=== PATIENT | male | born 1935 | race Caucasian/White ===

== ENCOUNTER → 2017-08-24 06:44 | Outpatient (CLI) | payer MEDICARE, SELFPAY ==
--- NOTE | 2017-08-24 06:49 | NM_ITS ---
History and Indications: Shortness of breath, fatigue abnormal EKG Procedure: Patient received a 0.4 mg of Lexiscan, resting heart rate was 70 beats prominent, resting blood pressure 157/90, with Lexiscan maximum heart rate achieved was 70 bpm which is less than 85% of the maximum predicted heart rate and a blood pressure was 138/77. With Lexiscan patient complained of shortness of breath. Electrocardiogram: Resting echocardiogram showed sinus rhythm left bundle-branch block, with Lexiscan there is less than 1.[address] segment segment depression noted from the baseline EKG. The EKG portion of the Lexiscan Myoview is nondiagnostic. Cardiac stress and resting SPECT images: Cardiac stress and rest SPECT images were obtained using technetium 99 Myoview 31.2 mCi at stress and 10.4 mCi at rest, gated SPECT further analysis of segmental wall motion and calculation of the ejection fraction also done. Cardiac stress and resting SPECT images show a fixed defect anteroseptally and inferior wall with normal contractility in the gated SPECT is likely secondary to soft tissue attenuation, and presence of left bundle-branch block, no reversible ischemia seen. Computer derived ejection fraction is 46% with abnormal septal motion, right ventricle is normal size and contractility. Conclusion: 1. The EKG portion of the Lexiscan Myoview is nondiagnostic. 2. No obvious scintigraphic evidence of reversible ischemia seen, computer derived ejection fraction is 46% with abnormal septal motion, right ventricle is normal size and contractility.
--- NOTE | 2017-08-24 06:49 | CA_ITS ---
PROCEDURE: 2-D M-mode and color Doppler study INDICATIONS FOR THE TEST: Chest painX COPD Heart Murmur Tobacco Smoking PalpitationsX Fatigue Syncope Edema HypertensionXDiabetes Mellitus Rheumatic Fever SOBXDOE Obesity Hyperlipidemia Family History HD Additional History LBBB,PACEMAKER PATIENT INFORMATION HEIGHT: 72 WEIGHT:185 GENDER: Male B/P:110/70 2-D/M-MODE INTERPRETATION: 2-D MEASUREMENTS OBSERVED VALUES IN CMS Right Ventricular Dimension (RVDd) 1.3 Interventricular Septum (Thickness)(IVsd) .9 Left Ventricular Internal Dimensions(LVIDd) 5.0 Left Ventricular Posterior Wall (Thickness)(LVPWd) .9 Aortic Root 3.8 Aortic Cusp Separation Left Atrial Dimensions (LAD) 3.4 2D 1. Left atrium is mildly enlarged, left ventricle is normal size, mild qualitative concentric left ventricular hypertrophy, visually estimated ejection fraction 45%, there is abnormal septal motion. 2. The right atrium and right ventricle are normal size and contractility, there is a pacemaker lead seen in the right atrium and right ventricle. 3. The aortic valve is minimally thickened and fibrosed. 4. The mitral and tricuspid valve are grossly normal. 5. The pulmonic valve is poorly visualized. 6. No significant pericardial effusion noted. .DOPPLER INTERROGATION: Doppler interrogation of the aortic, mitral and tricuspid valvular presence of mild aortic, mild mitral and tricuspid regurgitation, tricuspid and jet velocity insufficient for calculation of the right ventricular systolic pressure, grade 1 diastolic dysfunction seen with tissue Doppler evidence of raised left atrial pressure. CONCLUSION: 1. Mildly left atrium, normal left ventricular size, mild qualitative concentric left ventricular hypertrophy, visually estimated ejection fraction 45%, there is abnormal septal motion, grade 1 diastolic dysfunction seen with tissue Doppler evidence of raised left atrial pressure. 2. Mild mitral and tricuspid regurgitation 3. No significant pericardial effusion noted.
== END ==
PROVIDERS: PCP Family Medicine; Visit Provider Internal Medicine
DX: R00.2 Palpitations (principal); R06.02 Shortness of breath
CPT/HCPCS: 78452; 93017; 93306; A9502; J2785

== ENCOUNTER → 2018-04-02 08:59 | Outpatient (CLI) | payer MEDICARE, SELFPAY ==
--- NOTE | 2018-04-02 09:01 | CA_ITS ---
PROCEDURE: 2-D M-mode and color Doppler study INDICATIONS FOR THE TEST: Chest pain COPD Heart Murmur Tobacco Smoking Palpitations Fatigue Syncope Edema Hypertension + Diabetes Mellitus Rheumatic Fever SOB+HENDERSON+Obesity Hyperlipidemia Family History HD Additional History CM,CAD,LBBB,PPM PATIENT INFORMATION HEIGHT: 72 WEIGHT:187 GENDER: Male B/P:140/75 2-D/M-MODE INTERPRETATION: 2-D MEASUREMENTS OBSERVED VALUES IN CMS Right Ventricular Dimension (RVDd) 1.7 Interventricular Septum (Thickness)(IVsd) 1.3 Left Ventricular Internal Dimensions(LVIDd) 5.3 Left Ventricular Posterior Wall (Thickness)(LVPWd) 0.7 Aortic Root 2.6 Aortic Cusp Separation 1.8 Left Atrial Dimensions (LAD) 4.1 2D 1. Left atrium is mildly enlarged, left ventricle is normal size, mild concentric left ventricular hypertrophy, visually estimated ejection fraction 30-35%, left ventricle is globally hypokinetic. There is abnormal septal motion. 2. The right atrium and right ventricle are normal size and contractility, there is pacemaker lead seen right atrium and right ventricle. 3. The aortic valve is minimally thickened and fibrosed. 4. The mitral and tricuspid valve leaflets are minimally thickened. 5. The pulmonic valve is poorly visualized. 6. No significant pericardial effusion noted. DOPPLER INTERROGATION: Doppler interrogation of the aortic, mitral and tricuspid valvular reveals presence of trace aortic, mild mitral and tricuspid regurgitation, tricuspid regurgitation jet velocity is inadequate for calculation of the right ventricular systolic pressure, diastolic parameters are inconclusive. CONCLUSION: 1. Mildly enlarged left atrium, normal left ventricular size, mild concentric left ventricular hypertrophy, visually estimated ejection fraction 30-35%, left ventricle is globally hypokinetic, there is abnormal septal motion. 2. Mild mitral and tricuspid regurgitation 3. No significant pericardial effusion noted.
[2018-04-02 13:53] LABS: Anion Gap 12.1 mEq/L (5-15); Blood Urea Nitrogen 24 mg/dL (7-18); Calcium 9.2 mg/dL (8.5-10.1); Carbon Dioxide 29 mmol/L (21.0-32.0); Chloride 104 mmol/L (98-107); Creatinine,Serum 1.31 mg/dL (0.70-1.30); Estimated Glomerular Filt Rate 53 ml/min (>60); GFR (African American) 64 ML/MIN (>60); Glucose 95 mg/dL (74-106); Potassium 4.1 mmoL/L (3.5-5.1); Sodium 141 mmol/L (136-145)
== END ==
PROVIDERS: PCP Family Medicine; Visit Provider Internal Medicine Cardiovascular Disease
DX: I10 Essential (primary) hypertension (principal); I25.10 Atherosclerotic heart disease of native coronary artery without angina pectoris; I34.0 Nonrheumatic mitral (valve) insufficiency; I42.8 Other cardiomyopathies; I44.7 Left bundle-branch block, unspecified; I51.9 Heart disease, unspecified; R00.1 Bradycardia, unspecified; R00.2 Palpitations; R06.09 Other forms of dyspnea; R94.31 Abnormal electrocardiogram [ECG] [EKG]; Z95.0 Presence of cardiac pacemaker
CPT/HCPCS: 36415; 80048; 83880; 93306

== ENCOUNTER → 2018-04-19 13:39 | Outpatient (CLI) | payer MEDICARE, SELFPAY ==
--- NOTE | 2018-04-19 13:40 | NM_ITS ---
Cardiac MUGA Scan: Indication for the test: Evaluate left ventricular systolic function Procedure: Patient received 26.2 mCi of sodium pretechnitate, resting MUGA scan was performed in the standard view. Results: Computer derived ejection fraction is 44.6% with no regional wall motion abnormality.
== END ==
PROVIDERS: PCP Family Medicine; Visit Provider Internal Medicine Cardiovascular Disease
DX: I42.8 Other cardiomyopathies; I10 Essential (primary) hypertension; I25.10 Atherosclerotic heart disease of native coronary artery without angina pectoris; I34.0 Nonrheumatic mitral (valve) insufficiency; I44.7 Left bundle-branch block, unspecified; R00.1 Bradycardia, unspecified; R00.2 Palpitations; R06.00 Dyspnea, unspecified; Z95.0 Presence of cardiac pacemaker
CPT/HCPCS: 78473; A9512; A9560

== ENCOUNTER 2018-05-07 14:49 | Observation (INO) ==
--- NOTE | 2018-05-07 15:40 | Emergency Department Note ---
ED Disposition Clinical Impression: Syncope and collapse, Renal insufficiency, Status post cardiac pacemaker procedure Disposition: Still a Patient Condition on Discharge: Fair Instructions: DI for Syncope in Adults (Fainting), DI for Syncope in Children (Fainting) Referrals: Adiel Davis MD [Primary Care Provider] - - Critical Care Critical Care Time: No Attestation: On 05/07/18, the high probability of a clinically significant, sudden or life threatening deterioration of the following system(s) required my full and direct attention, intervention and personal management. The time I documented below is in addition to time spent performing reported procedures but includes the following listed in this critical care notation. Medical Decision Making - Medical Records Medical records reviewed: Yes: I reviewed the patient's medical records. - Lev Inquiry Pt receiving controlled substance: No Lev was queried for this patient: No Vital Signs: 05/07/18 14:49 05/07/18 15:53 Temperature 97.5 F L Temperature Source Oral Pulse Rate [Left Radial] 70 70 Respiratory Rate 14 18 Blood Pressure [Right Arm] 124/75 133/78 Blood Pressure Mean [Right Arm] 91 96 Blood Pressure Source [Right Arm] Automatic Cuff Automatic Cuff Blood Pressure Position [Right Arm] Sitting 02 Sat by Pulse Oximetry 93 L 92 L Oxygen Delivery Method Room Air Room Air - Lab Data Lab Results 05/07/18 15:40: WBC 8.2, RBC 4.74, Hgb 14.5, Hct 44.0, MCV 92.8, MCH 30.5, MCHC 32.9, RDW 13.4, Plt Count 210, MPV 7.2 L, Neut % (Auto) 72.3, Lymph % (Auto) 17.2, [place] % (Auto) 6.8, Eos % (Auto) 3.4, Baso % (Auto) 0.3, Neut # (Auto) 5.9, Lymph # (Auto) 1.4, [place] # (Auto) 0.6, Eos # (Auto) 0.3, Baso # (Auto) 0.0 05/07/18 15:40: Sodium 139, Potassium 4.0, Chloride 104, Carbon Dioxide 27, Anion Gap 12.0, BUN 26 H, Creatinine 1.55 H, Estimated Creat Clear 45, Estimated GFR 43 L, Est GFR ( Amer) 52 L, Glucose 108 H, Calcium 8.8, Total Bilirubin 0.8, AST 18, ALT 27, Alkaline Phosphatase 81, Troponin I < 0.02, Total Protein 7.2, Albumin 3.3 L, Globulin 3.9 H, Albumin/Globulin Ratio 0.8 L Result diagrams: 05/07/18 15:40 05/07/18 15:40 - CT Data CT Scan: Head Time Received: 16:[address] Reviewed: Yes: I have viewed the radiologist's interpretation Preliminary Findings: Normal/NAD Findings Narrative: IMPRESSION: Atrophy with chronic periventricular ischemic gliotic change. No acute finding - ECG Data Tracing #1 paced rhythm 70/minutes. ECG initial impression date: 05/07/18 ECG initial impression time: 15:25 Medical Decision Narrative: Patient remained hemodynamically neurologically stable, the pacemaker was interrogated with no findings, Dr. Mccall recommended the patient undergo 2D echo, I called Dr. Carmona was numerical control operator for his primary care physician Dr. Davis who recommended the patient to be on IV fluids and hold his blood pressure medications and order orthostatic blood pressure. Syncope HPI - General Chief Complaint: Syncope Stated Complaint: syncope Time Seen by Provider: 05/07/18 15:00 Mode of Arrival: EMS Limitations: No Limitations Description of Symptoms (Recalled from ER Triage Doc. by RN): Pt states he was talking with a friend when his left hand started shaking really bad and he got really hot and then he passed out. Friend says he was only out for a few seconds. States his pacemaker has been feeling funny lately. - History of Present Illness HPI narrative: 82 years old white male status post pacemaker placement [address] Scot sanches. 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 He denies having chest pain shortness of breath or palpitations. He denies having numbness tingling weakness involving the upper or lower extremity. Was no loss of urine or bowel control. She was brought to the ED by his family he is alert oriented x3 stat EKG shows paced rhythm at a rate of 70/min, I contacted Dr. Mccall his color control operator who will send the staff member for pacemaker interrogation. MD complaint: loss of consciousness Onset (ago): hour(s) Duration of episode: 14 -: second(s) Description of event: focal shaking Context: at rest Injuries sustained associated with event: RUE Current symptoms: none Treatments prior to arrival: none - Related Data Home Medications Medication Instructions Recorded Confirmed aspirin 81 mg tablet,delayed 81 mg PO DAILY tab 09/18/17 05/03/18 release pantoprazole 40 mg tablet,delayed 40 mg PO DAILY tab 09/18/17 05/03/18 release Previous Rx's Medication Instructions Recorded carvedilol 3.125 mg tablet 3.125 mg PO BID #60 tab 02/07/18 lisinopril 5 mg tablet 5 mg PO DAILY #30 tab 02/07/18 furosemide 20 mg tablet 20 mg PO .every other day #30 tab 03/29/18 Allergies Allergy/AdvReac Type Severity Reaction Status Date / Time No Known Drug Allergies Allergy Unknown Verified 05/03/18 09:11 [NO KNOWN DRUG ALLERGIES] [facility] History - Hepatitis A Screen Drug use history?: No High risk sexual behaviors?: No History of sexually transmitted infection?: No Currently employed?: No Childcare worker?: No Do you have indoor plumbing?: Yes Do you have electricity?: Yes Attestation statement:: This patient has been screened for Hepatitis A risk factors. I have reviewed the patient's past medical history: Yes Medical History: Reports:: Anxiety, Internal Pacemaker, Palpitations Denies:: Diabetes Mellitus Type 1, Diabetes Mellitus Type 2, Seizures Other Medical History: Reports: Hypothyroidism Other Surgeries: Yes: Pacemaker, Other Amputation: No Fractures: No - Social History Smoking Status: Never smoker Alcohol Intake: never Substance Use Type: denies use Occupational Status: retired Housing: house Household Members: spouse - Psychiatric History Expresses thoughts of harming self/others: None Suicide Plan Description: No Plan Pschychiatric History:: Reports:: Anxiety Family Hx:: Coronary Artery Disease, Heart Attack, Diabetes, Stroke ROS Obtained: Yes All systems reviewed & no additional complaints Physical Exam - General General appearance: alert, in no apparent distress - Head Head exam: atraumatic, normocephalic, normal inspection - Eye Eye exam: Present: normal appearance, PERRL, EOMI - ENT ENT exam: Present: normal exam, normal oropharynx, mucous membranes moist, TM's normal bilaterally, normal external ear exam - Neck Neck exam: Present: normal inspection, full ROM, trachea midline. Absent: tenderness, meningismus, lymphadenopathy - Chest Chest inspection: Present: normal inspection, symmetric chest wall rise. Absent: tenderness - Respiratory Respiratory exam: Present: normal lung sounds bilaterally. Absent: respiratory distress - Cardiovascular Cardiovascular exam: Present: regular rate, normal rhythm, normal heart sounds. Absent: JVD - Abdominal Exam Abdominal exam: Present: soft, normal bowel sounds. Absent: distention, tenderness, guarding - Extremities Exam Extremities exam: Present: normal inspection, full ROM, normal capillary refill. Absent: calf tenderness - Back Exam Back exam: Present: normal inspection. Absent: tenderness, CVA tenderness (R), CVA tenderness (L) - Neurological Exam Neurological exam: Present: alert, oriented X3, CN II-XII intact, motor sensory deficit, reflexes normal - Psychiatric Psychiatric exam: Present: normal affect, normal mood - Skin Skin exam: Present: warm, dry, intact, normal color - Lymphatic Lymphatic Findings: no adenopathy
[2018-05-07 15:48] LABS: Basophils % 0.3 % (0.1-2.0); Eosinophils # 0.3 K/mm3 (0.0-0.4); Eosinophils % 3.4 % (0.1-12.0); Hemoglobin 14.5 g/dL (14.1-18.0); Lymphocytes # 1.4 K/mm3 (0.7-4.5); Lymphocytes % 17.2 % (10-50); Mean Corpuscular HGB Conc 32.9 g/dL (31.8-35.4); Mean Corpuscular Hemoglobin 30.5 pg (27.0-31.2); Mean Corpuscular Volume 92.8 fl (80-94); Mean Platelet Volume 7.2 fl (7.4-10.4); Monocytes # 0.6 K/mm3 (0.1-1.0); Monocytes % 6.8 % (1.7-9.3); Neutrophils # 5.9 K/mm3 (1.8-7.8); Neutrophils % 72.3 % (37.0-80.0); Platelet Count 210 K/mm3 (142-424); Red Blood Count 4.74 M/mm3 (4.60-6.20); Red Cell Distribution Width 13.4 % (11.5-17.5); White Blood Count 8.2 K/mm3 (4.8-10.8)
[2018-05-07 16:11] LABS: Albumin Level 3.3 gm/dL (3.4-5.0); Aspartate Amino Transferase 18 U/L (15-37); Blood Urea Nitrogen 26 mg/dL (7-18); Calcium 8.8 mg/dL (8.5-10.1); Carbon Dioxide 27 mmol/L (21.0-32.0); Chloride 104 mmol/L (98-107); Glucose 108 mg/dL (74-106); Sodium 139 mmol/L (136-145)
[2018-05-07 16:41] LABS: Alanine Aminotransferase 27 U/L (12-78); Albumin/Globulin Ratio 0.8 (1.1-1.8); Alkaline Phosphatase 81 U/L (46-116); Bilirubin,Total 0.8 mg/dL (0.2-1.0); Globulin 3.9 gm/dl (1.3-3.2); Total Protein,Serum 7.2 gm/dL (6.4-8.2)
[2018-05-08 07:19] LABS: Basophils % 0.3 % (0.1-2.0); Eosinophils # 0.2 K/mm3 (0.0-0.4); Eosinophils % 3.5 % (0.1-12.0); Hematocrit 41.2 % (42.0-52.0); Hemoglobin 13.6 g/dL (14.1-18.0); Lymphocytes # 1.7 K/mm3 (0.7-4.5); Lymphocytes % 26.5 % (10-50); Mean Corpuscular HGB Conc 32.9 g/dL (31.8-35.4); Mean Corpuscular Hemoglobin 31.1 pg (27.0-31.2); Mean Corpuscular Volume 94.4 fl (80-94); Mean Platelet Volume 7.2 fl (7.4-10.4); Monocytes # 0.6 K/mm3 (0.1-1.0); Monocytes % 8.5 % (1.7-9.3); Neutrophils % 61.1 % (37.0-80.0); Platelet Count 194 K/mm3 (142-424); Red Blood Count 4.37 M/mm3 (4.60-6.20); Red Cell Distribution Width 13.4 % (11.5-17.5); White Blood Count 6.5 K/mm3 (4.8-10.8)
[2018-05-08 07:22] LABS: Anion Gap 10.8 mEq/L (5-15); Calcium 8.3 mg/dL (8.5-10.1); Potassium 3.8 mmoL/L (3.5-5.1)
--- NOTE | 2018-05-08 07:22 | H&P/Discharge Summary ---
General - General Admission date:: 05/07/18 Discharge date: 05/08/18 *Admission Date: 05/07/18 *Chief complaint: Syncopal event *History of present illness: 82-year-old male with a pacemaker presented to the emergency department with a brief episode of syncope. 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 He estimates he lost consciousness for 1-2 seconds. However after he regained consciousness he felt nauseous and weak. The gentleman who was being supervised went and called EMS. When ambulance arrived patient was evaluated and no significant problem was found. His blood sugar was 91. Patient was feeling better at that point and actually did not want to come to the hospital but when his had been informed of what had happened she "pitched a fit" and demanded he go to the hospital so he relented. In the emergency department workup was begun that included a telephone consult with patient's activities specialist due to his pacemaker. Patient has complained that the pacemaker "just does not feel right" and is has some left shoulder stiffness for several months now. Pacemaker was interrogated and was found to be working properly. Unbeknownst to ER staff patient had just undergone a very thorough workup of his heart over the last month with echocardiogram and MUGA scan. Patient was admitted for observation and IV fluids with initial orders to repeat echocardiogram but once again patient had just had an echocardiogram and this data was not known at that time [facility] History I have reviewed the patient's past medical history: Yes Medical History: Reports:: Anxiety, Congestive Heart Failure ([place] Heart Association class II), Internal Pacemaker, Palpitations Denies:: Cancer, Diabetes Mellitus Type 1, Diabetes Mellitus Type 2, MRSA, Seizures *Have you ever received a pneumonia vaccine?: Yes *Have you received a flu vaccine this season?: Yes Other Medical History: Reports: Hypothyroidism Laterality Cases: Bilateral: Other Other Surgeries: Yes: Pacemaker, Other (TURP) Amputation: No Fractures: No - *Social History Educational Level: Attended High School Smoking Status: Never smoker Alcohol Intake: never Substance Use Type: denies use *Occupational Status:: retired Housing: house Household Members: spouse *Travel in the last 8 weeks: None - Psychiatric History Expresses thoughts of harming self/others: None Suicide Plan Description: No Plan Pschychiatric History:: Reports:: Anxiety Family Hx:: Heart Attack Review of Systems - Review of Systems Review of systems:: pertinent systems reviewed and negative unless documented below - Constitutional Denies body ache(s), Denies chills - *Cardiovascular Denies chest pain, Denies chest pain at rest - *Respiratory Denies change in phlegm color, Denies chest congestion - *Gastrointestinal Denies abdominal pain, Denies belching - *Genitourinary Denies difficulty urinating - *Musculoskeletal Denies abnormal walking - *Neurologic Reports tremor(s), Denies abnormal walking, Denies abnormal hearing, Denies abnormal movements, Denies abnormal speech, Denies behavioral changes, Denies burning sensations, Denies confusion, Denies seizure-like activity, Denies unsteadiness, Denies dizziness, Denies loss of vision, Denies memory loss, Denies numbness, Denies tingling/numbness/burning sensations, Denies seizure-like activity Exam Vital signs and Labs for Last 24 Hours: Temp Pulse Resp BP Pulse Ox 98.0 F 71 15 107/50 L 94 L 05/08/18 04:00 05/08/18 04:00 05/08/18 04:00 05/08/18 04:00 05/08/18 04:00 Laboratory Results - last 24 hr 05/07/18 15:40: WBC 8.2, RBC 4.74, Hgb 14.5, Hct 44.0, MCV 92.8, MCH 30.5, MCHC 32.9, RDW 13.4, Plt Count 210, MPV 7.2 L, Neut % (Auto) 72.3, Lymph % (Auto) 17.2, [place] % (Auto) 6.8, Eos % (Auto) 3.4, Baso % (Auto) 0.3, Neut # (Auto) 5.9, Lymph # (Auto) 1.4, [place] # (Auto) 0.6, Eos # (Auto) 0.3, Baso # (Auto) 0.0 05/07/18 15:40: Sodium 139, Potassium 4.0, Chloride 104, Carbon Dioxide 27, Anion Gap 12.0, BUN 26 H, Creatinine 1.55 H, Estimated Creat Clear 45, Estimated GFR 43 L, Est GFR ( Amer) 52 L, Glucose 108 H, Calcium 8.8, Total Bilirubin 0.8, AST 18, ALT 27, Alkaline Phosphatase 81, Troponin I < 0.02, Total Protein 7.2, Albumin 3.3 L, Globulin 3.9 H, Albumin/Globulin Ratio 0.8 L 05/07/18 20:11: Troponin I < 0.02 05/08/18 02:00: Troponin I < 0.02 I & O for Last 24 hours: Intake & Output 05/05/18 05/06/18 05/07/18 05/08/18 11:59 11:59 11:59 11:59 Intake Total 549 / 549 Balance 549 / 549 Weight 181 lb 3 oz Narrative: Patient looks well and at baseline. ENT exam is grossly normal. Neck is without carotid bruits. Lungs are clear to auscultation. Heart has a regular rate and rhythm. Abdomen is thin, soft, nontender, nondistended. Extremities are warm to the touch with symmetric movement and strength assessment in the upper and lower extremities. Neurologically the patient has normal cranial nerves. Motor and sensory functions are intact. Gait was not tested at the time of exam but he has been ambulating back and forth to the bathroom without difficulties. Hospital Course Hospital Course: Patient was admitted for observation. He was placed in seizure precautions. There were no seizure activities witnessed. Patient had actually returned to baseline prior to admission. He was observed overnight and when there were no further events patient was discharged home the next morning. Initial workup to include echocardiogram was canceled as patient has just undergone cardiac workup as an outpatient. Patient will follow-up in my office on May 10 at 2 PM Results Labs on day of discharge: Labs from last 24 hours 05/08/18 05/07/18 05/07/18 02:00 20:11 15:40 WBC RBC Hgb Hct MCV MCH MCHC RDW Plt Count MPV Neut % (Auto) Lymph % (Auto) [place] % (Auto) Eos % (Auto) Baso % (Auto) Neut # (Auto) Lymph # (Auto) [place] # (Auto) Eos # (Auto) Baso # (Auto) Sodium 139 Potassium 4.0 Chloride 104 Carbon Dioxide 27 Anion Gap 12.0 BUN 26 H Creatinine 1.55 H Estimated Creat Clear 45 Estimated GFR 43 L Est GFR ( Amer) 52 L Glucose 108 H Calcium 8.8 Total Bilirubin 0.8 AST 18 ALT 27 Alkaline Phosphatase 81 Troponin I < 0.02 < 0.02 < 0.02 Total Protein 7.2 Albumin 3.3 L Globulin 3.9 H Albumin/Globulin Ratio 0.8 L 05/07/18 15:40 WBC 8.2 RBC 4.74 Hgb 14.5 Hct 44.0 MCV 92.8 MCH 30.5 MCHC 32.9 RDW 13.4 Plt Count 210 MPV 7.2 L Neut % (Auto) 72.3 Lymph % (Auto) 17.2 [place] % (Auto) 6.8 Eos % (Auto) 3.4 Baso % (Auto) 0.3 Neut # (Auto) 5.9 Lymph # (Auto) 1.4 [place] # (Auto) 0.6 Eos # (Auto) 0.3 Baso # (Auto) 0.0 Sodium Potassium Chloride Carbon Dioxide Anion Gap BUN Creatinine Estimated Creat Clear Estimated GFR Est GFR ( Amer) Glucose Calcium Total Bilirubin AST ALT Alkaline Phosphatase Troponin I Total Protein Albumin Globulin Albumin/Globulin Ratio DS: Diagnosis - Discharge Diagnosis (1) Syncope and collapse Status: Acute Discharge Medications - Medications for Discharge Home Medication List at Discharge: No Action aspirin 81 mg tablet,delayed release 81 mg PO DAILY tab pantoprazole 40 mg tablet,delayed release 40 mg PO DAILY tab LORazepam [Lorazepam 1mg Tablet] 1 mg PO HS Lisinopril [Lisinopril 5mg Tablet] 5 mg PO DAILY Furosemide [Furosemide 20mg Tab] 20 mg PO DAILY Carvedilol [Carvedilol 3.125mg Tab] 3.125 mg PO BID Disposition Disposition: Home, Self-Care
== END 2018-05-08 11:13 | disposition home or self-care (01) ==
LOC: ER 14:49 → 2ND 14:49
PROVIDERS: ADMIT Internal Medicine Adolescent Medicine; ATTEND Family Medicine
DX: Z79.899 Other long term (current) drug therapy; R55 Syncope and collapse; Z98.890 Other specified postprocedural states; I50.9 Heart failure, unspecified; Z79.82 Long term (current) use of aspirin; Z95.0 Presence of cardiac pacemaker; R00.2 Palpitations
CPT/HCPCS: 36415; 70450; 71020; 71046; 73030; 80048; 80053; 84484; 85025; 93005; 93306; 95816; 99284; G0378

== ENCOUNTER → 2018-10-10 10:20 | Outpatient (CLI) | payer MEDICARE, SELFPAY ==
--- NOTE | 2018-10-10 10:24 | XR_ITS ---
XR shoulder RT min 2V HISTORY: ITS.REASON: RT AANTERIOR SHOULDER PAIN ORDERING PHYSICIAN: Adiel Davis MD PATIENT AGE: 82 years Comparison: None FINDINGS: There are mild osteoarthritic changes of the glenohumeral joint. The AC joint has an unremarkable appearance. No fracture or dislocation. IMPRESSION: Mild osteoarthritis of the glenohumeral joint
== END ==
PROVIDERS: PCP Family Medicine; Visit Provider Family Medicine
DX: M25.511 Pain in right shoulder (principal)
CPT/HCPCS: 73030

== ENCOUNTER → 2018-11-29 08:27 | Outpatient (CLI) | payer MEDICARE, SELFPAY ==
[2018-11-29 09:45] LABS: Anion Gap 11.7 mEq/L (5-15); Blood Urea Nitrogen 16 mg/dL (7-18); Calcium 9.1 mg/dL (8.5-10.1); Carbon Dioxide 30 mmol/L (21.0-32.0); Chloride 104 mmol/L (98-107); Creatinine,Serum 1.11 mg/dL (0.70-1.30); Estimated Glomerular Filt Rate 64 ml/min (>60); GFR (African American) 77 ML/MIN (>60); Glucose 83 mg/dL (74-106); Potassium 4.7 mmoL/L (3.5-5.1); Sodium 141 mmol/L (136-145)
== END ==
PROVIDERS: Visit Provider Internal Medicine Cardiovascular Disease
DX: I10 Essential (primary) hypertension (principal); R06.02 Shortness of breath
CPT/HCPCS: 80048

== ENCOUNTER 2019-06-22 17:38 | Emergency (ER) | payer MEDICARE, OTHER, SELFPAY ==
[2019-06-22 17:52] VITALS: BP 134/75; PULSE 89; RESP 18; TEMP 36.8; O2SAT 98; BMI 25.0
--- NOTE | 2019-06-22 17:58 | XR_ITS ---
PROCEDURE: XR CHEST PORTABLE CLINICAL HISTORY: SOB COMPARISON: CXR2 CHEST-AP VIEW ONLY from 11/21/2012 CTAC CTA-CHEST from 02/01/2017 CXR1 CHEST-PORTABLE from 02/02/2017 CXR2V XR chest 2V from 05/07/2018 FINDINGS: The cardiomediastinal silhouette and pulmonary vascularity are within normal limits. The lungs are clear without infiltrates, suspicious nodules, or pleural effusions. The left-sided cardiac pacemaker is again noted with dual chamber electrodes both in good position. There are mild multilevel degenerate changes of the mid and lower thoracic spine. No acute bony abnormalities. IMPRESSION: No acute findings. Dictated by: Dr. Alejandro Lund MD 06/22/2019 19:[address] Alejandro Lund MD in [place] 06/22/2019 19:13
[2019-06-22 18:01] LABS: Microscopic, Urine URINE MICROSCOPIC (MICROSCOPIC)
[2019-06-22 18:02] LABS: Appearance,Urine CLEAR (Clear); Bilirubin,Urine Negative (Negative); Blood, Urine 1+ (Negative); Color,Urine YELLOW (Yellow); Glucose,Urine (UA) Negative (Negative); Ketones,Urine Negative (Negative); Leukocyte Esterase,Urine Negative (Negative); Nitrate,Urine Negative (Negative); Protein,Urine Negative (Negative); Specific Gravity, Urine 1.015 (1.005-1.030); Urobilinogen,Urine 0.2 EU/dl (0.2)
--- NOTE | 2019-06-22 18:06 | HMH.EDGENADL ---
ED Disposition Clinical Impression: Seasonal allergies, Anxiety about health URI (upper respiratory infection) Qualifiers: URI type: unspecified viral URI Qualified Code(s): J06.9 - Acute upper respiratory infection, unspecified Disposition: Home, Self-Care Condition on Discharge: Fair Instructions: DI for Viral Upper Respiratory Infection -- Adult, Allergic Rhinitis Additional Instructions: You have been evaluated for congestion, cough, malaise. This is most likely due to an upper respiratory infection and seasonal allergies. Please continue taking your kwap-fpe-hqdfuph allergy medication. You may take Tylenol and Motrin for pain and fever. We have not excluded COVID-19. You may call the [place] [facility] hotline ( ). Return to the emergency department if you have new or worsening symptoms, shortness of breath, cough, fevers, headache, neck pain. Referrals: Adiel Davis MD [Primary Care Provider] - Time of Disposition: 19:07 - Critical Care Critical Care Time: No Attestation: On 06/22/19, the high probability of a clinically significant, sudden or life threatening deterioration of the following system(s) required my full and direct attention, intervention and personal management. The time I documented below is in addition to time spent performing reported procedures but includes the following listed in this critical care notation. Medical Decision Making - Lev Inquiry Pt receiving controlled substance: No Vital Signs: 06/22/19 17:52 Temperature 98.2 F Temperature Source Oral Pulse Rate [Left Radial] 89 Respiratory Rate 18 Blood Pressure [Right Arm] 134/75 Blood Pressure Mean [Right Arm] 94 Blood Pressure Position [Right Arm] Sitting 02 Sat by Pulse Oximetry 98 Oxygen Delivery Method Room Air - Lab Data Lab Results 06/22/19 17:45: Urine Color Yellow, Urine Appearance Clear, Urine pH 6.0, Ur Specific [place] 1.015, Urine Protein Negative, Urine Glucose (UA) Negative, Urine Ketones Negative, Urine Blood 1+, Urine Nitrate Negative, Urine Bilirubin Negative, Urine Urobilinogen 0.2, Ur Leukocyte Esterase Negative, Urine RBC Occasional, Urine WBC None, Ur Squamous Epith Cells Occasional, Urine Bacteria None 06/22/19 18:00: WBC 8.1, RBC 4.85, Hgb 15.2, Hct 44.4, MCV 91.6, MCH 31.4 H, MCHC 34.3, RDW 12.6, Plt Count 223, MPV 7.4, Neut % (Auto) 60.0, Lymph % (Auto) 29.8, [place] % (Auto) 7.0, Eos % (Auto) 2.8, Baso % (Auto) 0.4, Neut # (Auto) 4.9, Lymph # (Auto) 2.4, [place] # (Auto) 0.6, Eos # (Auto) 0.2, Baso # (Auto) 0.0 06/22/19 18:00: Sodium 138, Potassium 4.1, Chloride 104, Carbon Dioxide 29, Anion Gap 9.1, BUN 22 H, Creatinine 1.00, Estimated Creat Clear 69, Estimated GFR 72, Est GFR ( Amer) 87, Glucose 116 H, Calcium 9.4, Total Bilirubin 0.8, AST 28, ALT 20, Alkaline Phosphatase 72, Total Protein 7.9, Albumin 4.3, Globulin 3.6 H, Albumin/Globulin Ratio 1.2 06/22/19 18:00: Lactate 0.9 Result diagrams: 06/22/19 18:00 06/22/19 18:00 Orders (Tests/Meds): ORDERS Category Date Time Status XR chest portable Stat Exams 06/22/19 17:58 Taken Medical Decision Narrative: In summary this is an 83-year-old male presenting to the emergency department with generalized malaise, cough, sore throat. Patient is in no distress on arrival. Vital signs are stable, afebrile. Differential diagnoses include viral upper respiratory infection, anemia, bronchitis, pneumonia. Plan to obtain CBC, CMP, chest x-ray and reassess. Laboratory results are generally unremarkable. Chest x-ray does not show large infiltrate. I have counseled the patient that we have not excluded COVID-19, but he currently does not have fever, hypoxia, other concerning symptoms. I recommended that he self quarantine. Given the phone number for the [employer] hotline. Structures take Tylenol for pain and fever. Given return precautions. General Adult HPI - General Chief complaint: Shortness of Breath/Dyspnea Stated complaint
[2019-06-22 18:08] LABS: RBC,Urine Occasional #/hpf (0-3); Squamous Epithelial Cell,Urine Occasional #/hpf (0-5)
[2019-06-22 18:15] LABS: Basophils % 0.4 % (0.1-2.0); Eosinophils # 0.2 K/mm3 (0.0-0.4); Eosinophils % 2.8 % (0.1-12.0); Hematocrit 44.4 % (42.0-52.0); Hemoglobin 15.2 g/dL (14.1-18.0); Lymphocytes # 2.4 K/mm3 (0.7-4.5); Lymphocytes % 29.8 % (10-50); Mean Corpuscular HGB Conc 34.3 g/dL (31.8-35.4); Mean Corpuscular Hemoglobin 31.4 pg (27.0-31.2); Mean Corpuscular Volume 91.6 fl (80-94); Mean Platelet Volume 7.4 fl (7.4-10.4); Monocytes # 0.6 K/mm3 (0.1-1.0); Neutrophils # 4.9 K/mm3 (1.8-7.8); Platelet Count 223 K/mm3 (142-424); Red Blood Count 4.85 M/mm3 (4.60-6.20); Red Cell Distribution Width 12.6 % (11.5-17.5); White Blood Count 8.1 K/mm3 (4.8-10.8)
[2019-06-22 18:23] LABS: Lactic Acid 0.9 mmol/L (0.7-2.1)
[2019-06-22 18:24] LABS: Alanine Aminotransferase 20 U/L (12-78); Albumin Level 4.3 g/dl (3.5-5.0); Albumin/Globulin Ratio 1.2 (1.1-1.8); Alkaline Phosphatase 72 U/L (38-126); Anion Gap 9.1 mEq/L (5-15); Aspartate Amino Transferase 28 U/L (17-59); Bilirubin,Total 0.8 mg/dl (0.2-1.3); Blood Urea Nitrogen 22 mg/dl (9-20); Calcium 9.4 mg/dl (8.4-10.2); Carbon Dioxide 29 mmol/L (22.0-30.0); Chloride 104 mmol/L (98-107); Creatinine Clearance Estimated 69 mL/min (50-200); Estimated Glomerular Filt Rate 72 ml/min (>60); GFR (African American) 87 ML/MIN (>60); Globulin 3.6 g/dL (1.3-3.2); Glucose 116 mg/dl (74-100); Potassium 4.1 mmoL/L (3.5-5.1); Sodium 138 mmol/L (136-145); Total Protein,Serum 7.9 g/dl (6.3-8.2)
[2019-06-22 19:30] VITALS: BP 135/79; PULSE 81; RESP 19; TEMP 36.8; O2SAT 98
== END 2019-06-22 19:45 | disposition home or self-care (01) ==
PROVIDERS: Emergency Provider Emergency Medicine; PCP Family Medicine
DX: J30.2 Other seasonal allergic rhinitis (principal); F06.4 Anxiety disorder due to known physiological condition; J06.9 Acute upper respiratory infection, unspecified; Z79.82 Long term (current) use of aspirin; Z79.899 Other long term (current) drug therapy; Z95.0 Presence of cardiac pacemaker; Z86.79 Personal history of other diseases of the circulatory system; Z87.448 Personal history of other diseases of urinary system; I50.9 Heart failure, unspecified; E03.9 Hypothyroidism, unspecified
CPT/HCPCS: 71045; 80053; 81001; 83605; 85025; 99283

== ENCOUNTER → 2019-07-01 15:49 | Outpatient (CLI) | payer MEDICARE, OTHER, SELFPAY ==
--- NOTE | 2019-07-01 | XR_ITS ---
PROCEDURE: XR CHEST AP CLINICAL HISTORY: Shortness of breath, heart disease COMPARISON: CTAC CTA-CHEST from 02/01/2017 CXR1 CHEST-PORTABLE from 02/02/2017 CXR2V XR chest 2V from 05/07/2018 XR CHEST PORTABLE from 06/22/2019 FINDINGS: Bipolar pacemaker is present from left subclavian approach The lungs are clear without infiltrates, suspicious nodules, or pleural effusions. No acute bony abnormalities. IMPRESSION: No change with Dictated by: Jose Alberto Sidhu MD 07/01/2019 17:26 Electronically signed by Jose Alberto Sidhu MD in [place] 07/01/2019 17:26
[2019-07-02 16:29] LABS: Covid-19 Nasal PCR Sendout Lex NOT DETECTED
== END ==
PROVIDERS: Visit Provider Family Medicine
DX: R06.02 Shortness of breath (principal); R50.9 Fever, unspecified
CPT/HCPCS: 71045; U0003

== ENCOUNTER → 2019-07-03 10:37 | Outpatient (CLI) | payer MEDICARE, OTHER, SELFPAY ==
[2019-07-03 11:24] LABS: Anion Gap 11.1 mEq/L (5-15); Blood Urea Nitrogen 19 mg/dl (9-20); Calcium 9.3 mg/dl (8.4-10.2); Carbon Dioxide 29 mmol/L (22.0-30.0); Chloride 102 mmol/L (98-107); Estimated Glomerular Filt Rate 72 ml/min (>60); GFR (African American) 87 ML/MIN (>60); Glucose 88 mg/dl (74-100); Potassium 4.1 mmoL/L (3.5-5.1); Sodium 138 mmol/L (136-145)
[2019-07-03 11:35] LABS: NT Pro Brain Natriuretic Pep. 163 pg/mL (0-450)
== END ==
PROVIDERS: Visit Provider Internal Medicine Cardiovascular Disease
DX: I25.10 Atherosclerotic heart disease of native coronary artery without angina pectoris (principal); I42.9 Cardiomyopathy, unspecified; I50.22 Chronic systolic (congestive) heart failure; R06.00 Dyspnea, unspecified
CPT/HCPCS: 36415; 80048; 83880

== ENCOUNTER → 2019-07-08 08:51 | Outpatient (CLI) | payer MEDICARE, OTHER, SELFPAY ==
--- NOTE | 2019-07-08 08:52 | CA_ITS ---
APPROVED REPORT EXAM: Comprehensive 2D, Doppler, and color-flow Echocardiogram [place] Presser: Chantelle Cortes RT(R) Ht: 6 ft 0 in Wt: 184lbs BSA: 2.06 BP: 133/67 mmHg Indications: Palpitations, SOB, HENDERSON, hx CM, CAD, pacemaker, anxiety M-Mode Dimensions RVDd 2.12 cm (0.9-2.6) LVDd 5.16 cm (3.5-5.7) LVDs 3.83 cm (3.5-5.7) IVSd 1.06 cm (0.6-1.1) PWd 0.68 cm (0.6-1.1) EF (Teich) 50.40% FS 25.80% EDV (Teich) 127.20 mL ESV (Teich) 63.10 mL LV Diastology E/A Ratio 0.58 Mitral Valve MV A Velocity 93.00 (40-130 cm/s) Left Ventricle Left atrium is mildly enlarged, left ventricle is normal size, mild concentric left ventricular hypertrophy, visually estimated ejection fraction 40%, there is abnormal septal motion. Grade 1 diastolic dysfunction seen without tissue Doppler evidence of raise left atrial pressure. Right Ventricle Right atrium and right ventricular mildly enlarged with normal contractility, there is a pacemaker lead seen right atrium and right ventricle. Aortic Valve Aortic valve is thickened and calcified leaflet continue to display good mobility, there is no aortic stenosis, there is mild aortic insufficiency. Mitral Valve Mitral valve is minimally thickened, there is mild mitral regurgitation. Tricuspid Valve Tricuspid valve is grossly normal, there is mild tricuspid regurgitation. Pulmonic Valve Pulmonic valve is poorly visualized. Great Vessels Aortic root is normal size. Pericardium No significant pericardial effusion noted. Conclusion 1. Mild mitral enlargement, normal left ventricular size, mild concentric left ventricular hypertrophy, visually estimated ejection fraction 40%, there is abnormal septal motion, grade 1 diastolic dysfunction seen without tissue Doppler evidence of raise left atrial pressure. 2. Mild aortic, mild mitral and tricuspid regurgitation. 3. No significant pericardial effusion noted. Electronically signed by : Gamal Reyes, 07/08/2019 20:56:44
== END ==
PROVIDERS: PCP Family Medicine; Visit Provider Internal Medicine Cardiovascular Disease
DX: I25.10 Atherosclerotic heart disease of native coronary artery without angina pectoris (principal); I42.9 Cardiomyopathy, unspecified; I50.22 Chronic systolic (congestive) heart failure; R06.00 Dyspnea, unspecified
CPT/HCPCS: 93306

== ENCOUNTER → 2019-07-18 10:25 | Outpatient (CLI) | payer MEDICARE, OTHER, SELFPAY ==
[2019-07-18 12:36] LABS: NT Pro Brain Natriuretic Pep. 131 pg/mL (0-450)
== END ==
PROVIDERS: Visit Provider Internal Medicine Cardiovascular Disease
DX: R06.02 Shortness of breath; I25.10 Atherosclerotic heart disease of native coronary artery without angina pectoris; I34.0 Nonrheumatic mitral (valve) insufficiency; I42.9 Cardiomyopathy, unspecified; I44.7 Left bundle-branch block, unspecified; I50.22 Chronic systolic (congestive) heart failure; R07.9 Chest pain, unspecified; Z95.0 Presence of cardiac pacemaker
CPT/HCPCS: 36415; 83880

== ENCOUNTER → 2019-11-25 11:17 | Outpatient (CLI) | payer MEDICARE, OTHER, SELFPAY ==
[2019-11-25 12:00] VITALS: PULSE 69; PULSE 74
--- NOTE | 2019-11-25 12:44 | CT_ITS ---
PROCEDURE: CT CHEST WO CON CLINICAL INDICATION: sob Soa COMPARISON: CT CTAA CTA-ABD from 02/01/2017 CT CTAC CTA-CHEST from 02/01/2017 TECHNIQUE: Axial images obtained with sagittal and coronal reformats. All CT scans at the facility use one or more dose reduction, viz: automated exposure control, ma/kV adjustment per patient size (including targeted exams where dose is matched to indication, i.e. head), or iterative reconstruction technique. FINDINGS: HEART AND MEDIASTINAL STRUCTURES: Cardiac pacemaker device is present from left subclavian approach. Scattered small nodes are present in the mediastinum. Coronary artery calcifications are present. There is thickening of the distal esophagus and gastroesophageal junction. This is nonspecific and may only be due to nondistention. Neoplasm or esophagitis is also considered in the differential diagnosis. Barium swallow or upper endoscopy may provide further evaluation. There are few scattered small mediastinal lymph nodes. There are changes of COPD LUNGS AND PLEURAL SPACES: Biapical scarring is noted. A 3 mm nodules present in the right upper lobe not significantly changed. Scarring is present in the lung bases with some right basilar atelectatic changes noted. A stable 4 mm nodules present along the left major fissure. No new nodules. BONY STRUCTURES: Degenerative changes thoracic spine UPPER ABDOMEN: Hiatal hernia with thickened esophagus and GE junction IMPRESSION: 1. COPD with scattered areas of scarring with atelectatic changes in the right lung base. Overall no significant change from the previous study. 2. No change 3 mm right upper lobe nodule and 4 mm nodule along the left major fissure. 3. Nonspecific thickening of the soft this and GE junction as detailed above. Dictated by: Jose Alberto Sidhu MD 12/01/2019 09:15 Jose Alberto Sidhu MD in [place] 12/01/2019 09:15
== END ==
PROVIDERS: PCP Family Medicine; Visit Provider Internal Medicine Pulmonary Disease
DX: R06.00 Dyspnea, unspecified (principal); I25.10 Atherosclerotic heart disease of native coronary artery without angina pectoris; I42.9 Cardiomyopathy, unspecified; I50.22 Chronic systolic (congestive) heart failure
CPT/HCPCS: 71250; 94060; 94618; 94640; 94727; 94729

== ENCOUNTER → 2020-02-18 13:44 | Outpatient (POV) | payer MEDICARE, OTHER, SELFPAY | DX: Z00.00 Encounter for general adult medical examination without abnormal findings (principal) ==

== ENCOUNTER → 2020-03-10 09:35 | Outpatient (CLI) | payer MEDICARE, OTHER, SELFPAY ==
[2020-03-11 14:35] LABS: Covid-19 Nasal PCR Sendout P&C NEGATIVE
== END ==
PROVIDERS: PCP Family Medicine
DX: Z01.818 Encounter for other preprocedural examination (principal); Z03.818 Encounter for observation for suspected exposure to other biological agents ruled out; H25.11 Age-related nuclear cataract, right eye
CPT/HCPCS: U0004

== ENCOUNTER → 2020-03-24 14:59 | Outpatient (POV) | payer MEDICARE, OTHER, SELFPAY | PROVIDERS: PCP Family Medicine | DX: Z00.00 Encounter for general adult medical examination without abnormal findings (principal) ==

== ENCOUNTER 2020-04-03 01:42 | Observation (INO) | payer MEDICARE, OTHER, SELFPAY ==
[2020-04-03] VITALS (23 sets, daily range): BP systolic 102–183; BP diastolic 57–85; PULSE 60–82; RESP 16–20; TEMP 36.4–36.9; O2SAT 93–97; BMI 25.0; BMI 23.7
--- NOTE | 2020-04-03 | IR_ITS ---
APPROVED REPORT Patient Location: Inpatient [facility] [employer]: WALLACE Koo RT (R) PROCEDURES Left heart catheterization Left ventriculogram Selective coronary angiogram Drug-eluting stent deployment to the proximal right coronary INDICATION Coronary artery disease, Acute non-ST elevation myocardial infarction, troponin 0 0.82, Informed consent was obtained prior to the procedure. COMPLICATIONS None TECHNIQUE One percent lidocaine used to anesthetize the right anterior aspect of the wrist. The right radial artery was accessed via the Seldinger technique. A 6 Upper Sor[place] sheath was placed in the right radial artery. 2.5 mg of verapamil, 800 mcg of nitroglycerin, 1mg Lidocaine and 5000 U Heparin were given through the arterial sheath. The trap catheter was also used to perform left heart catheterization, left ventriculogram and selective coronary angiogram. At the end the diagnostic angiogram therapeutic heparin was administered giving a therapeutic ACT. And I Ning right guide catheter was placed in the right coronary artery and a Choice PT wire was placed distal to the stenosis. A 2.25 x 12 mm resolute [place] stent was initially deployed at 16 cheri and then postdilated at 22 cheri reducing the stenosis. CINDY-3 flow was present before and after the procedure. At the end of the procedure the apparatus was removed the sheath was removed and hemostasis was achieved using TR banding patient was transferred to the postop holding area in stable condition ANGIOGRAPHIC RESULTS The left main artery Normal The left anterior descending artery Has proximal smooth 10% stenosis with mild 10% luminal irregularities in the mid segment The circumflex artery Is a dominant vessel and gives rise to a moderate ramus intermedius which has an ostial proximal 10 to 20% hazy stenosis. The circumflex artery itself is large with mild 10% luminal irregularities The right coronary artery Is a nondominant vessel with a proximal concentric 80% stenosis The RUELAS ventriculogram reveals Preserved at 55 to 60% The left ventricular end-diastolic pressure 10 mmHg IMPRESSION Severe disease in the proximal right coronary artery Successful stent to the proximal right coronary artery severe disease reduced to 0% with 1 drug-eluting stent Preserved ejection fraction Normal left ventricular end-diastolic pressure PLAN 1. Brilinta and aspirin 2. LDL less than 55 3. Cardiac rehabilitation 4. Avoidance of tobacco products 5. Patient may be discharged home in 6 hours if approved by his admitting physician Electronically signed by : Say Mccall, 04/03/2020 12:22:54
--- NOTE | 2020-04-03 01:43 | ECG_ITS ---
APPROVED REPORT Exam: Resting ECG HR:71 bpm ECG Measurements Heart Rate 71 AXES MO 138 P -17 QRSd 156 QRS 11 QT 434 T 150 QTc 471 Conclusion Electronic atrial pacemaker Left bundle branch block Abnormal ECG Electronically signed by : Adiel Reyes, 04/03/2020 09:58:35
--- NOTE | 2020-04-03 01:45 | XR_ITS ---
PROCEDURE: XR CHEST 2V CLINICAL HISTORY: cp Chest pain, left arm and shoulder pain COMPARISON: CR CXR2V XR chest 2V from 05/07/2018 CR XR CHEST PORTABLE from 06/22/2019 CR XR CHEST AP from 07/01/[address] CHEST WO CON from 11/25/2019 FINDINGS: Normal heart size. Bipolar pacemaker is present left subclavian approach with good lead position. The lungs are clear without infiltrates, suspicious nodules, or pleural effusions. Degenerative changes thoracic spine IMPRESSION: No change with no acute finding Dictated by: Jose Alberto Sidhu MD 04/03/2020 07:20 Jose Alberto Sidhu MD in [place] 04/03/2020 07:20
[2020-04-03 02:03] LABS: Basophils % 0.5 % (0.1-2.0); Eosinophils # 0.2 K/mm3 (0.0-0.4); Eosinophils % 2.8 % (0.1-12.0); Hematocrit 47.4 % (42.0-52.0); Hemoglobin 15.6 g/dL (14.1-18.0); Lymphocytes # 2.5 K/mm3 (0.7-4.5); Lymphocytes % 29.2 % (10-50); Mean Corpuscular HGB Conc 32.9 g/dL (31.8-35.4); Mean Corpuscular Hemoglobin 31.2 pg (27.0-31.2); Mean Corpuscular Volume 94.8 fl (80-94); Mean Platelet Volume 7.1 fl (7.4-10.4); Monocytes # 0.6 K/mm3 (0.1-1.0); Monocytes % 7.5 % (1.7-9.3); Neutrophils # 5.1 K/mm3 (1.8-7.8); Platelet Count 213 K/mm3 (142-424); Red Blood Count 4.99 M/mm3 (4.60-6.20); Red Cell Distribution Width 13.1 % (11.5-17.5); White Blood Count 8.5 K/mm3 (4.8-10.8)
[2020-04-03 02:08] LABS: Chloride 104 mmol/L (98-107)
[2020-04-03 02:09] LABS: Sodium 139 mmol/L (136-145)
[2020-04-03 02:11] LABS: Blood Urea Nitrogen 24 mg/dl (9-20); Creatinine Clearance Estimated 56 mL/min (50-200); Estimated Glomerular Filt Rate 58 ml/min (>60); GFR (African American) 70 ML/MIN (>60)
[2020-04-03 02:12] LABS: Calcium 9.5 mg/dl (8.4-10.2); Carbon Dioxide 29 mmol/L (22.0-30.0); Glucose 113 mg/dl (74-100)
--- NOTE | 2020-04-03 02:23 | CT_ITS ---
PROCEDURE: CT ANGIO CHEST CLINCIAL INDICATION: chest pain Chest pain, left arm pain, left shoulder pain COMPARISON: CT CT CHEST WO CON from 11/25/2019 TECHNIQUE: IV Contrast: 70ML Isovue 370 Axial images obtained with sagittal and coronal reformats. All CT scans at the facility use one or more dose reduction, viz: automated exposure control, ma/kV adjustment per patient size (including targeted exams where dose is matched to indication, i.e. head), or iterative reconstruction technique. FINDINGS: HEART AND MEDIASTINAL STRUCTURES: No evidence of pulmonary embolus, aortic aneurysm, or aortic dissection. LUNGS AND PLEURAL SPACES: There are 2 small nodular opacities in the right upper lobe image 65 series 3 each measuring approximately 4 mm not significantly changed. Scattered atelectatic and/or fibrotic changes are noted with mild bronchiectasis in the lung bases. A 4 mm noncalcified nodules present in the superior segment of the left lower lobe unchanged image 58 series 3. There is evidence of old granulomatous disease. BONY STRUCTURES: Degenerative changes are present in the thoracic spine with osteophytosis UPPER ABDOMEN: There is thickening of the gastroesophageal junction. This is nonspecific and may only be due to nondistention. Neoplasm or esophagitis is also considered in the differential diagnosis. Barium swallow or upper endoscopy may provide further evaluation. Bilateral renal cysts are present. There are 2 small right paraesophageal lymph nodes ADDITIONAL FINDINGS: No other significant abnormalities. IMPRESSION: 1. No evidence of pulmonary embolus, aortic aneurysm, or aortic dissection.. 2. Stable bilateral noncalcified pulmonary nodules. 3. There is thickening of the gastroesophageal junction. This is worrisome for neoplasm or esophagitis . Barium swallow or upper endoscopy may provide further evaluation.. There are small paraesophageal lymph nodes. Dictated by: Jose Alberto Sidhu MD 04/03/2020 08:08 Jose Alberto Sidhu MD in [place] 04/03/2020 08:08
--- NOTE | 2020-04-03 02:23 | HMH.EDCP ---
ED Disposition Clinical Impression: Left bundle branch block, Cardiac pacemaker in situ, Esophageal abnormality Chest pain Qualifiers: Chest pain type: precordial pain Qualified Code(s): R07.2 - Precordial pain Disposition: Admitted as Observation Condition on Discharge: Good Referrals: Adiel Davis MD [Primary Care Provider] - - Critical Care Critical Care Time: No Attestation: On 04/03/20, the high probability of a clinically significant, sudden or life threatening deterioration of the following system(s) required my full and direct attention, intervention and personal management. The time I documented below is in addition to time spent performing reported procedures but includes the following listed in this critical care notation. Medical Decision Making - Medical Records Medical records reviewed: Yes: I reviewed the patient's medical records. - Lev Inquiry Pt receiving controlled substance: No Vital Signs: 04/03/20 01:42 04/03/20 02:06 Temperature 97.7 F Temperature Source Oral Pulse Rate [Apical] 70 70 Respiratory Rate 18 Blood Pressure [Right Arm] 155/83 H 143/75 H Blood Pressure Mean [Right Arm] 107 97 Blood Pressure Source [Right Arm] Automatic Cuff Blood Pressure Position [Right Arm] Sitting 02 Sat by Pulse Oximetry 96 97 Oxygen Delivery Method Room Air - Lab Data Lab results reviewed: Yes: I reviewed the patient's lab results. Lab Results 04/03/20 01:45: WBC 8.5, RBC 4.99, Hgb 15.6, Hct 47.4, MCV 94.8 H, MCH 31.2, MCHC 32.9, RDW 13.1, Plt Count 213, MPV 7.1 L, Neut % (Auto) 60.0, Lymph % (Auto) 29.2, [place] % (Auto) 7.5, Eos % (Auto) 2.8, Baso % (Auto) 0.5, Neut # (Auto) 5.1, Lymph # (Auto) 2.5, [place] # (Auto) 0.6, Eos # (Auto) 0.2, Baso # (Auto) 0.0 04/03/20 01:45: Sodium 139, Potassium 4.0, Chloride 104, Carbon Dioxide 29, Anion Gap 10.0, BUN 24 H, Creatinine 1.20, Estimated Creat Clear 56, Estimated GFR 58 L, Est GFR ( Amer) 70, Glucose 113 H, Calcium 9.5, Troponin I < 0.01 04/03/20 01:45: SARS-CoV-2 IgG Ab (Rapid) Negative, SARS-CoV-2 IgM Ab (Rapid) Negative Result diagrams: 04/03/20 01:45 04/03/20 01:45 Orders (Tests/Meds): ED MEDICATIONS Generic Name Dose Route Start Last Admin Trade Name Freq PRN Reason Stop Dose Admin Nitroglycerin 0.4 mg 04/03/20 01:46 04/03/20 01:45 Nitroglycerin 0.4mg Sl Tablet SL 05/03/20 01:45 0.4 mg Q5MINP PRN Administration Chest Pain Sodium Chloride 10 ml 04/03/20 03:05 04/03/20 02:50 Sodium Chloride 0.9% 10ml Syr (Rad Only) IV 05/03/20 03:04 10 ml NEEDED PRN Administration Maintain IV Site Discontinued Medications Generic Name Dose Route Start Last Admin Trade Name Freq PRN Reason Stop Dose Admin Aspirin 324 mg 04/03/20 01:47 04/03/20 01:48 Aspirin 81mg Chewable Tablet PO 04/03/20 01:48 324 mg ONCE ONE Administration Iopamidol 70 ml 04/03/20 03:05 04/03/20 02:50 Iopamidol-370 (76%);100ml Bottle IV 04/03/20 03:06 70 ml ONCE ONE Administration Nitroglycerin 1 gm 04/03/20 01:49 04/03/20 01:50 Nitroglycerin 1 Gm Ointment TD 04/03/20 01:50 1 gm ONCE ONE Administration Sodium Chloride 50 ml 04/03/20 03:05 04/03/20 02:50 0.9 % Sodium Chloride 50 Ml Vial IV 04/03/20 03:06 40 ml ONCE ONE Administration ORDERS Category Date Time Status CT Chest w/PE protocol [CT angio chest] Stat Cat Scan 04/03/20 02:23 Taken XR chest 2V Stat Exams 04/03/20 01:45 Taken Liver Panel Stat Lab 04/03/20 01:45 Received Troponin I Q3H Lab 04/03/20 05:00 Ordered Troponin I Q3H Lab 04/03/20 08:00 Ordered - Radiology Data #1 Image(s): Chest Image Reviewed: Yes I reviewed the patient's radiology image Preliminary Findings: Normal/NAD - CT Data CT Scan: Chest Time Received: 03:[address] Reviewed: Yes: I have viewed the radiologist's interpretation Preliminary Findings: Abnormal (see report ) - ECG Data Tracing #1 Arrhythmias present: other
[2020-04-03 02:25] LABS: Coronavirus 19 IgG Antibody Negative (Negative); Coronavirus 19 IgM Antibody Negative (Negative)
[2020-04-03 02:26] LABS: Troponin I < 0.01 ng/ml (0.00-0.034)
[2020-04-03 03:22] LABS: Alanine Aminotransferase 21 U/L (12-78); Aspartate Amino Transferase 30 U/L (17-59); Bilirubin,Unconjugated 0.3 mg/dL (0.0-1.1)
--- NOTE | 2020-04-03 03:22 | PC.NURSE ---
Dr He speaking with Dr Wong for admission
[2020-04-03 03:23] LABS: Albumin Level 4.1 g/dl (3.5-5.0); Alkaline Phosphatase 86 U/L (38-126); Bilirubin,Direct 0.2 mg/dl (0.0-0.4); Bilirubin,Indirect 0.3 mg/dL (0.0-0.9); Bilirubin,Total 0.5 mg/dl (0.2-1.3); Total Protein,Serum 7.7 g/dl (6.3-8.2)
[2020-04-03 03:49] LABS: Amylase 70 U/L (30-110); Lipase 116 U/L (23-300)
--- NOTE | 2020-04-03 04:04 | PC.NURSE ---
patient up to floor via wheelchair.
[2020-04-03 05:38] LABS: Troponin I 0.12 ng/ml (0.00-0.034)
--- NOTE | 2020-04-03 06:56 | PC.NURSE ---
Pt is A&Ox4. Lung sounds CTA. Active bowel sounds in all 4 quads, no BM noted. Pt has not c/o any chest pain since arriving to his room. Pt ambulates independently w/ steady balance. PIV remains patent and is infusing NS @ 50 ml/hr. No other acute changes or complaints at this time.
[2020-04-03 09:38] LABS: Troponin I 0.86 ng/ml (0.00-0.034)
--- NOTE | 2020-04-03 11:19 | HMH.HP ---
*Admission Date: 04/03/20 *Chief complaint: chest pain *History of present illness: 84 year old male with history of nondominant right coronary disease, diastolic dysfunction, and status post pacemaker presented to ED after developing shortness of breath followed by left upper chest discomfort that radiated tothe left shoulder and arm at home while laying in bed. On initial eval in ER patient had LBBB and negative troponin. Patient was admitted for r/o AK and has had subsequent elevations in troponin to abnormal levels. He is chest pain free with nitropaste. Other symptoms have also resolved. As part of workup patient was noted to have some thickening of the distal esophagus on CT scan and does report food getting stuck when he swallows for the last 2-3 months. There are plans for future GI referral by his PCP [facility] History I have reviewed the patient's past medical history: Yes Medical History: Reports:: Anxiety, Cardiomyopathy, Congestive Heart Failure, Coronary Artery Disease, Hypertension, Internal Pacemaker, Palpitations Denies:: Cancer, Diabetes Mellitus Type 1, Diabetes Mellitus Type 2, MRSA, Seizures *Have you ever received a pneumonia vaccine?: Yes *Have you received a flu vaccine this season?: No Other Medical History: Reports: Arthritis, Cataracts, Hypothyroidism Laterality Cases: Bilateral: Cataract, Other Other Surgeries: Yes: Cardiac Catheterization, Pacemaker, Other (TURP) Amputation: No Fractures: No - *Social History Last grade of school completed: 9th or 10th Smoking Status: Never smoker Alcohol Intake: never Substance Use Type: denies use *Occupational Status:: retired Housing: house Household Members: spouse *Travel in the last 8 weeks: None - Psychiatric History Pschychiatric History:: Reports:: Anxiety Family Hx:: Asthma, Hypertension, Stroke, Thyroid Disorder, Mental illness Review of Systems - Review of Systems Review of systems:: pertinent systems reviewed and negative unless documented below - *Neurologic Denies localized weakness, Denies seizure-like activity Meds Home Medications Medication Instructions Recorded Confirmed Type aspirin 81 mg tablet,delayed 81 mg PO DAILY tab 09/18/17 04/03/20 History release pantoprazole 40 mg tablet,delayed 40 mg PO DAILY tab 09/18/17 04/03/20 History release LORazepam [Lorazepam 1mg Tablet] 1 mg PO HS 05/07/18 04/03/20 History carvedilol 3.125 mg tablet 3.125 mg PO BID #60 tab 12/22/19 04/03/20 Rx albuterol sulfate 90 mcg/actuation 1 inh INHALATION QID PRN #8.5 g 02/03/20 04/03/20 Rx aerosol inhaler Budesonide/Formoterol Fumarate 1 puff IH BID 04/03/20 04/03/20 History [Budesonide-Formoterol 160-4.5] Spironolactone [Spironolactone 25 mg PO DAILY 04/03/20 04/03/20 History 25mg Tablet] Allergies Allergy/AdvReac Type Severity Reaction Status Date / Time No Known Drug Allergies Allergy Unknown Verified 02/03/20 11:40 [NO KNOWN DRUG ALLERGIES] Exam Vital signs and Labs for Last 24 Hours: Temp Pulse Resp BP Pulse Ox 98.5 F 70 20 119/68 96 04/03/20 08:00 04/03/20 08:00 04/03/20 08:00 04/03/20 08:00 04/03/20 08:00 Laboratory Results - last 24 hr 04/03/20 01:45: WBC 8.5, RBC 4.99, Hgb 15.6, Hct 47.4, MCV 94.8 H, MCH 31.2, MCHC 32.9, RDW 13.1, Plt Count 213, MPV 7.1 L, Neut % (Auto) 60.0, Lymph % (Auto) 29.2, [place] % (Auto) 7.5, Eos % (Auto) 2.8, Baso % (Auto) 0.5, Neut # (Auto) 5.1, Lymph # (Auto) 2.5, [place] # (Auto) 0.6, Eos # (Auto) 0.2, Baso # (Auto) 0.0 04/03/20 01:45: Sodium 139, Potassium 4.0, Chloride 104, Carbon Dioxide 29, Anion Gap 10.0, BUN 24 H, Creatinine 1.20, Estimated Creat Clear 56, Estimated GFR 58 L, Est GFR ( Amer) 70, Glucose 113 H, Calcium 9.5, Troponin I < 0.01 04/03/20 01:45: SARS-CoV-2 IgG Ab (Rapid) Negative, SARS-CoV-2 IgM Ab (Rapid) Negative 04/03/20 01:45: Total Bilirubin 0.5, Direct Bilirubin 0.2, Conjugated Bilirubin 0.0, Indirect Bilirubin 0.3, Unconjugated Bilirubin 0.3, AST 30
--- NOTE | 2020-04-03 11:41 | HMH.PHAVTE ---
[facility] Pharmacy VTE Monitoring - Patient Demographics Admission date: 04/03/20 Report Date: 04/03/20 Time: 11:41 Allergies/Adverse Reactions: Patient Allergies No Known Drug Allergies [NO KNOWN DRUG ALLERGIES] Allergy (Unknown, Verified 02/03/20 11:40) Height: 1.83 m Weight: 79.379 kg Patient Problems: Current Active Problems Anxiety about health (Acute) Esophageal abnormality (Acute) NSTEMI (non-ST elevated myocardial infarction) (Acute) Chest pain (Acute) CAD (coronary artery disease) (Acute) Left bundle branch block (Chronic) Cardiac pacemaker in situ (Chronic) - VTE Risk Labs: VTE Related Lab Results Hgb 15.6 g/dL (14.1-18.0) 04/03/20 01:45 Hct 47.4 % (42.0-52.0) 04/03/20 01:45 Plt Count 213 K/mm3 (142-424) 04/03/20 01:45 BUN 24 mg/dl (9-20) H 04/03/20 01:45 Creatinine 1.20 mg/dl (0.66-1.25) 04/03/20 01:45 Estimated Creat Clear 56 mL/min (50-200) 04/03/20 01:45 VTE Score: 3 VTE Risk Level: Low Risk - Prophylaxis VTE Prophylaxis Ordered?: Yes Types of VTE Prophylaxis: TEDS Knee High Location of Applied Device: Bilateral Lower Extremeties
--- NOTE | 2020-04-03 11:47 | HMH.PHAINT ---
MEDICATION RECONCILIATION COMPLETED ON PATIENT USING LIST FROM PULMONOLOGY VISIT IN FEBRUARY 2020. -AISHWARYA MASSEY, LUDYD
--- NOTE | 2020-04-04 08:19 | HMH.DCSUM ---
General - General Admission date:: 04/03/20 Discharge date: 04/03/20 HPI HPI: 84 year old male with history of nondominant right coronary disease, diastolic dysfunction, and status post pacemaker presented to ED after developing shortness of breath followed by left upper chest discomfort that radiated tothe left shoulder and arm at home while laying in bed. On initial eval in ER patient had LBBB and negative troponin. Patient was admitted for r/o CT and has had subsequent elevations in troponin to abnormal levels. He is chest pain free with nitropaste. Other symptoms have also resolved. As part of workup patient was noted to have some thickening of the distal esophagus on CT scan and does report food getting stuck when he swallows for the last 2-3 months. There are plans for future GI referral by his PCP Hospital Course Hospital Course: Patient was admitted and ruled in for CT. Cardiology was consulted and patient was taken to the Expense Clerk on the . Results are as follows: ANGIOGRAPHIC RESULTS The left main artery Normal The left anterior descending artery Has proximal smooth 10% stenosis with mild 10% luminal irregularities in the mid segment The circumflex artery Is a dominant vessel and gives rise to a moderate ramus intermedius which has an ostial proximal 10 to 20% hazy stenosis. The circumflex artery itself is large with mild 10% luminal irregularities The right coronary artery Is a nondominant vessel with a proximal concentric 80% stenosis The RUELAS ventriculogram reveals Preserved at 55 to 60% The left ventricular end-diastolic pressure 10 mmHg IMPRESSION Severe disease in the proximal right coronary artery Successful stent to the proximal right coronary artery severe disease reduced to 0% with 1 drug-eluting stent Preserved ejection fraction Normal left ventricular end-diastolic pressure PLAN 1. Brilinta and aspirin 2. LDL less than 55 3. Cardiac rehabilitation 4. Avoidance of tobacco products 5. Patient may be discharged home in 6 hours if approved by his admitting physician Patient was discharged later in the day on the on aspirin and Brilinta. Patient will continue carvedilol and spironolactone patient will follow-up in the office on Sunday CT scan performed on admission showed distal esophageal thickening which will require follow-up EGD Objective Vital signs: Temp Pulse Resp BP Pulse Ox 98.1 F 69 20 103/58 L 96 04/03/20 17:40 04/03/20 17:40 04/03/20 17:40 04/03/20 17:40 04/03/20 17:40 Results Labs on day of discharge: Labs from last 24 hours 04/03/20 08:20 Troponin I 0.86 H DS: Diagnosis - Discharge Diagnosis (1) NSTEMI (non-ST elevated myocardial infarction) Status: Acute (2) Cardiac pacemaker in situ Status: Chronic (3) Left bundle branch block Status: Chronic (4) Anxiety about health Status: Acute (5) CAD (coronary artery disease) Status: Acute Discharge Plan - Patient Discharge Instructions ACTIVITY: Continue current activity DIET: continue same diet Patient Instructions: DI for Heart Block, DI for Pacemaker Insertion, DI for Chest Pain - Follow up Plan Follow up with: Say Mccall MD [Staff Physician] - 04/06/20 Adiel Davis MD [Primary Care Provider] - 04/05/20 Disposition: Home, Self-Detention Medications: Home Medications Medication Instructions Recorded Confirmed Type aspirin 81 mg tablet,delayed 81 mg PO DAILY tab 09/18/17 04/03/20 History release pantoprazole 40 mg tablet,delayed 40 mg PO DAILY tab 09/18/17 04/03/20 History release LORazepam [Lorazepam 1mg Tablet] 1 mg PO HS 05/07/18 04/03/20 History carvedilol 3.125 mg tablet 3.125 mg PO BID #60 tab 12/22/19 04/03/20 Rx albuterol sulfate 90 mcg/actuation 1 inh INHALATION QID PRN #8.5 g 02/03/20 04/03/20 Rx aerosol inhaler Atorvastatin Calcium [Lipitor 40mg 40 mg PO HS #30 tab 04/03/20 Rx Tablet*] Michael
[2020-04-05 14:57] LABS: CATHL Activated Clotting Time 318 SEC (74-125)
--- NOTE | 2020-04-05 15:32 | HMH.PHACLD ---
Rancho Del Angel has received discharge medication counseling on the following medications: PATIENT LEFT AFTER HOURS ON THE FOLLOWING MEDICATIONS: CARVEDILOL, ASPIRIN, BRILINTA, LIPITOR, SPIRONOLACTONE
== END 2020-04-03 18:35 | disposition home or self-care (01) ==
LOC: ER 03:32 → 2ND 03:44
PROVIDERS: Internal Medicine; Admitting Provider Internal Medicine Adolescent Medicine; Emergency Provider Emergency Medicine; PCP Family Medicine; Visit Provider Family Medicine
DX: I21.4 Non-ST elevation (NSTEMI) myocardial infarction (principal); I25.10 Atherosclerotic heart disease of native coronary artery without angina pectoris; Z95.0 Presence of cardiac pacemaker; I44.7 Left bundle-branch block, unspecified; I11.0 Hypertensive heart disease with heart failure; I50.30 Unspecified diastolic (congestive) heart failure; Z79.82 Long term (current) use of aspirin; Z79.51 Long term (current) use of inhaled steroids; Z79.899 Other long term (current) drug therapy; I42.9 Cardiomyopathy, unspecified
CPT/HCPCS: 36415; 71046; 71275; 80048; 80076; 82150; 83690; 84484; 85025; 85347; 86328; 92928; 93005; 93458; 99152; 99284; C1725; C1769; C1876; C9600; G0378; J1644; Q9967

== ENCOUNTER 2020-04-11 15:58 | Emergency (ER) | payer MEDICARE, OTHER, SELFPAY ==
--- NOTE | 2020-04-11 15:56 | ECG_ITS ---
APPROVED REPORT Exam: Resting ECG HR:70 bpm ECG Measurements Heart Rate 70 AXES VT 208 P QRSd 156 QRS -22 QT 448 T 144 QTc 483 Conclusion Electronic atrial pacemaker Left bundle branch block Abnormal ECG Electronically signed by : Adiel Reyes, 04/12/2020 05:54:42
[2020-04-11 15:59] VITALS: BP 160/84; PULSE 84; RESP 16; TEMP 36.4; O2SAT 98; BMI 23.7
[2020-04-11 16:01] VITALS: BMI 23.7
--- NOTE | 2020-04-11 16:02 | XR_ITS ---
PROCEDURE: XR CHEST 2V Referring Doctor: Gregory Richards Patient Age:84Y CLINICAL HISTORY: chest pain COMPARISON: CR XR CHEST PORTABLE from 06/22/2019 CR XR CHEST AP from 07/01/[address] ANGIO CHEST from 04/03/2020 CR XR CHEST 2V from 04/03/2020 FINDINGS: PA and lateral chest performed today shows no significant change since April 03. Pacemaker overlying the left chest with atrial and ventricular leads stable intact. Heart normal size. Normal pulmonary vascularity. No CHF. No focal infiltrate. No pleural effusion, no pneumothorax. The cardiomediastinal silhouette and pulmonary vascularity are within normal limits. The lungs are clear without infiltrates, suspicious nodules, or pleural effusions. No acute bony abnormalities.. Stable mild degenerative changes T-spine IMPRESSION: A stable chest with nothing acute Pacemaker, overlying left chest Dictated by: Timothy Robles MD 04/11/2020 18:10 Timothy Robles MD in [place] 04/11/2020 18:10
[2020-04-11 16:23] LABS: Basophils # 0.1 K/mm3 (0-0.2); Basophils % 0.5 % (0.1-2.0); Eosinophils # 0.2 K/mm3 (0.0-0.4); Eosinophils % 1.9 % (0.1-12.0); Hematocrit 43.5 % (42.0-52.0); Hemoglobin 14.4 g/dL (14.1-18.0); Lymphocytes % 23.5 % (10-50); Mean Corpuscular HGB Conc 33.2 g/dL (31.8-35.4); Mean Corpuscular Hemoglobin 31.4 pg (27.0-31.2); Mean Corpuscular Volume 94.4 fl (80-94); Mean Platelet Volume 7.5 fl (7.4-10.4); Monocytes # 0.7 K/mm3 (0.1-1.0); Monocytes % 8.1 % (1.7-9.3); Neutrophils # 5.6 K/mm3 (1.8-7.8); Neutrophils % 65.9 % (37.0-80.0); Platelet Count 245 K/mm3 (142-424); Red Cell Distribution Width 13.1 % (11.5-17.5); White Blood Count 8.5 K/mm3 (4.8-10.8)
[2020-04-11 16:26] VITALS: BP 135/70; PULSE 70; RESP 18; O2SAT 95
[2020-04-11 16:28] LABS: Blood Urea Nitrogen 22 mg/dl (9-20); Calcium 9.2 mg/dl (8.4-10.2); Carbon Dioxide 29 mmol/L (22.0-30.0); Chloride 104 mmol/L (98-107); Creatinine Clearance Estimated 46 mL/min (50-200); Estimated Glomerular Filt Rate 49 ml/min (>60); GFR (African American) 59 ML/MIN (>60); Glucose 106 mg/dl (74-100); Sodium 140 mmol/L (136-145)
[2020-04-11 16:30] VITALS: BP 135/70; PULSE 70; RESP 20; O2SAT 94
--- NOTE | 2020-04-11 16:35 | HMH.EDGENADL ---
ED Disposition Clinical Impression: Atypical chest pain Disposition: Home, Self-Care Condition on Discharge: Good Instructions: DI for Atypical Chest Pain Additional Instructions: Take Ranexa and Imdur as prescribed. See Dr. Mccall in his office at 10 AM tomorrow. Additional instructions for CHEST PAIN: See your physician as soon as possible for further evaluation. Return immediately if worsening chest pain, vomiting, shortness of breath, fever, coughing of blood. Prescriptions: Isosorbide Mononitrate [Imdur 30mg ER tablet] 30 mg PO DAILY #30 tab.er.24h Transmission Status: Pending to [facility] Ranolazine [Ranexa 500mg ER tablet] 500 mg PO BID #60 tab.er.12h Transmission Status: Pending to [facility] Referrals: Adiel Davis MD [Primary Care Provider] - - Critical Care Critical Care Time: No Attestation: On 04/11/20, the high probability of a clinically significant, sudden or life threatening deterioration of the following system(s) required my full and direct attention, intervention and personal management. The time I documented below is in addition to time spent performing reported procedures but includes the following listed in this critical care notation. Medical Decision Making - Medical Records Medical records reviewed: Yes: I reviewed the patient's medical records. MR Comment: Reviewed recent admission and cardiac cath report. He was admitted for chest pain and ruled in for non-ST elevation [place]. Had a right coronary artery stent placed. As part of his chest pain work-up he had a CT angiogram of the chest that was negative for PE. See results of cardiac cath and CT angiogram below. - Lev Inquiry Pt receiving controlled substance: No Vital Signs: 04/11/20 15:59 04/11/20 16:26 04/11/20 16:30 Temperature 97.6 F Temperature Source Oral Pulse Rate [Right] 84 70 70 Respiratory Rate 16 18 20 Blood Pressure [Right Arm] 160/84 H 135/70 135/70 Blood Pressure Mean [Right Arm] 109 91 91 Blood Pressure Source [Right Arm] Automatic Cuff Automatic Cuff Blood Pressure Position [Right Arm] Sitting Supine 02 Sat by Pulse Oximetry 98 95 94 L Oxygen Delivery Method Room Air Room Air - Lab Data Lab Results 04/11/20 16:05: WBC 8.5, RBC 4.60, Hgb 14.4, Hct 43.5, MCV 94.4 H, MCH 31.4 H, MCHC 33.2, RDW 13.1, Plt Count 245, MPV 7.5, Neut % (Auto) 65.9, Lymph % (Auto) 23.5, Fisher % (Auto) 8.1, Eos % (Auto) 1.9, Baso % (Auto) 0.5, Neut # (Auto) 5.6, Lymph # (Auto) 2.0, Fisher # (Auto) 0.7, Eos # (Auto) 0.2, Baso # (Auto) 0.1 04/11/20 16:05: Sodium 140, Potassium 4.2, Chloride 104, Carbon Dioxide 29, Anion Gap 11.2, BUN 22 H, Creatinine 1.40 H, Estimated Creat Clear 46, Estimated GFR 49 L, Est GFR ( Amer) 59, Glucose 106 H, Calcium 9.2, Troponin I < 0.01 Result diagrams: 04/11/20 16:05 04/11/20 16:05 Orders (Tests/Meds): ED MEDICATIONS Discontinued Medications Generic Name Dose Route Start Last Admin Trade Name Freq PRN Reason Stop Dose Admin Aspirin 243 mg 04/11/20 16:03 04/11/20 16:20 Aspirin 81mg Chewable Tablet PO 04/11/20 16:04 243 mg ONCE ONE Administration ORDERS Category Date Time Status XR chest 2V Stat Exams 04/11/20 16:02 Taken Troponin I Q3H Lab 04/11/20 19:15 Ordered Troponin I Q3H Lab 04/11/20 22:15 Ordered - ECG Data Tracing #1 EKG interpreted by Gregory Richards MD: Rhythm: Electronic atrial pacemaker Rate: 70 [place]es: normal Ectopy: none Conduction: Left bundle branch block ST Segment Changes: none T Wave Changes: none Q Waves: none No evidence of acute ischemia or injury Prior electrocardiagrams reviewed. No change from prior tracings. - Physician Consults Physician Consulted: Cal Time: 17:30 Reason -: Cardiology Eval/Care Comment/Response: Started on Ranexa 500 mg twice daily, Imdur 30 mg daily. Follow-up in his office tomorrow at 10 AM. Second troponin not needed due to the
[2020-04-11 16:49] LABS: Troponin I < 0.01 ng/ml (0.00-0.034)
[2020-04-11 16:50] LABS: Anion Gap 11.2 mEq/L (5-15); Potassium 4.2 mmoL/L (3.5-5.1)
[2020-04-11 18:14] VITALS: BP 142/75; PULSE 74; RESP 16; TEMP 36.9; O2SAT 98
== END 2020-04-11 18:16 | disposition home or self-care (01) ==
PROVIDERS: Emergency Provider Emergency Medicine; PCP Family Medicine
DX: R07.89 Other chest pain (principal); Z95.0 Presence of cardiac pacemaker; I25.10 Atherosclerotic heart disease of native coronary artery without angina pectoris; I50.9 Heart failure, unspecified; I10 Essential (primary) hypertension; E78.5 Hyperlipidemia, unspecified; Z79.899 Other long term (current) drug therapy
CPT/HCPCS: 71046; 80048; 84484; 85025; 93005; 99283

== ENCOUNTER → 2020-04-13 07:39 | Outpatient (CLI) | payer MEDICARE, OTHER, SELFPAY ==
--- NOTE | 2020-04-13 07:40 | CA_ITS ---
APPROVED REPORT EXAM: Comprehensive 2D, Doppler, and color-flow Echocardiogram Panel Monitor: Chantelle Cortes RT(R) Ht: 6 ft 0 in Wt: 180lbs BSA: 2.04 BP: 138/80 mmHg Indications: HTN, DM, SOB, CM, CHF, CAD, recent stent 2D Dimensions LVOT 1.90 cm (M/F) 1.5-2.5 M-Mode Dimensions RVDd 2.12 cm (0.9-2.6) LA Diam 3.16 cm (1.9-4.0) LVDd 4.54 cm (3.5-5.7) Ao Diam 2.36 cm (2.0-3.7) LVDs 3.03 cm (3.5-5.7) IVSd 1.17 cm (0.6-1.1) PWd 1.29 cm (0.6-1.1) EF (Teich) 62.00% FS 33.30% EDV (Teich) 94.40 mL ESV (Teich) 35.90 mL LV Diastology E Decel Time 180.00 (160-240 msec) E/A Ratio 0.6 MED E' 4.90 (< 7 cm/sec) E'/MED E' Ratio 10.39 (>14) LAT E' 5.30 (<10 cm/sec) E/LAT E' Ratio 9.60 (>14) Mitral Valve MV E Max Jesús. 51.00 (40-130 cm/s) MV A Velocity 83.00 (40-130 cm/s) E/A Ratio 0.61 MV Decel. Time 180.00 (160-240 ms) MV PHT 53.00 ms Left Ventricle Left atrium is mildly enlarged, left is normal size, mild concentric left ventricular hypertrophy, visually estimated ejection fraction 45%, with abnormal septal motion. There is no obvious regional wall motion abnormality, grade 1 diastolic dysfunction seen without tissue Doppler evidence of raise left atrial pressure. Right Ventricle Right atrium and right ventricle are normal size and contractility, there is a pacemaker lead seen in the right ventricle. Aortic Valve Aortic valve is minimally thickened and fibrosed, there is no aortic stenosis, there is mild aortic insufficiency. Mitral Valve Mitral valve is grossly normal, there is mild mitral regurgitation. Tricuspid Valve Tricuspid valve is grossly normal, there is mild tricuspid regurgitation, tricuspid rotation jet velocity is inadequate for calculation of the right ventricular systolic pressure. Pulmonic Valve Pulmonic valve is poorly visualized. Great Vessels Aortic root is normal size. Pericardium No significant pericardial effusion noted. Conclusion 1. Mildly low left atrium, normal left ventricular size, mild concentric left ventricular hypertrophy, visually estimated ejection fraction 45% with abnormal septal motion, grade 1 diastolic dysfunction seen without tissue Doppler evidence of raise left atrial pressure. 2. Mild aortic, mild mitral and tricuspid regurgitation. 3. No significant pericardial effusion noted. Electronically signed by : Gamal Reyes, 04/14/2020 06:56:29
== END ==
PROVIDERS: PCP Family Medicine; Visit Provider Nurse Practitioner Family
DX: I21.4 Non-ST elevation (NSTEMI) myocardial infarction (principal); R94.31 Abnormal electrocardiogram [ECG] [EKG]
CPT/HCPCS: 93306

== ENCOUNTER → 2020-05-07 11:04 | Outpatient (CLI) | payer MEDICARE, OTHER, SELFPAY ==
[2020-05-07 12:00] LABS: Coronavirus 19 IgG Antibody Positive (Negative); Coronavirus 19 IgM Antibody Negative (Negative)
== END ==
PROVIDERS: Visit Provider Internal Medicine Gastroenterology
DX: Z01.812 Encounter for preprocedural laboratory examination (principal); Z20.822 Contact with and (suspected) exposure to COVID-19; Z86.16 Personal history of COVID-19; Z13.810 Encounter for screening for upper gastrointestinal disorder; R13.10 Dysphagia, unspecified
CPT/HCPCS: 36415; 86328

== ENCOUNTER 2020-05-10 10:43 | Day surgery (SDC) | payer MEDICARE, OTHER, SELFPAY ==
[2020-05-05 11:36] VITALS: BMI 23.7
[2020-05-10] VITALS (9 sets, daily range): BP systolic 106–160; BP diastolic 64–87; PULSE 67–76; RESP 16–18; TEMP 36.4–36.5; O2SAT 90–98
--- NOTE | 2020-05-10 12:55 | HMH.ANESCL ---
[facility] Anesthesia Checklist - Patient Identification Patient Identification: Arm Band - Structural Data Admitted From: Home Planned Operative Procedure/s: egd Consent for Planned Operative Procedure(s) Verified: Yes Verified Documents: Surgical Consent, History and Physical - NPO Status Verified Time NPO: 00:00 - Additional verifications Anesthesia Reactions: No - Airway Assessment C-Spine Mobility Assessed: Yes (mp3) TMJ Mobility Assessed: Yes Dentition: Dentures-good fit (removed) - Neurological Assessment Level of Consciousness: Awake, Alert - Anesthesia Plan Anesthesia Risk discussed: Yes Anesthesia Plan: Verified ASA Class: III Anesthesia Type: MAC [facility] History I have reviewed the patient's past medical history: Yes Medical History: Reports:: Anxiety, Cardiomyopathy, Congestive Heart Failure, Coronary Artery Disease, Hypertension, Internal Pacemaker, Palpitations Denies:: Cancer, Diabetes Mellitus Type 1, Diabetes Mellitus Type 2, MRSA, Seizures *Have you ever received a pneumonia vaccine?: Yes *Have you received a flu vaccine this season?: No Other Medical History: Reports: Arthritis, Cataracts, Hypothyroidism Anesthesia experience/problems:: nac Laterality Cases: Bilateral: Other Other Surgeries: Yes: Cardiac Catheterization, Pacemaker, Other (TURP) Amputation: No Fractures: No - *Social History Last grade of school completed: 9th or 10th Smoking Status: Never smoker Alcohol Intake: never Substance Use Type: denies use *Occupational Status:: retired Housing: house Household Members: spouse *Travel in the last 8 weeks: None - Psychiatric History Pschychiatric History:: Reports:: Anxiety Family Hx:: Asthma, Hypertension, Stroke, Thyroid Disorder, Mental illness
--- NOTE | 2020-05-10 12:57 | HMH.PROC ---
[facility] Procedure Note Procedure Note:: Upper Endoscopy Procedure Report: Esophagogastroduodenoscopy with cold snare polypectomy and TTS balloon dilation Endoscopost: Ollie Marshall II, MD Referring Physician: Adiel Davis MD Date of Procedure: May 10, 2020 Equipment: Olympus GIF 180 standard upper endoscope Sedation: MAC sedation Indications: Mr. Del Angel is an 84-year-old gentleman with a prior history of GERD and Ahn's. His last EGD was several years ago. The patient reports no recent heartburn or reflux. He has had progressive dysphagia to solids as well as weight loss. The patient also had ST segment elevation and was found to have coronary artery disease/right coronary artery stenosis and is status post coronary stent placement. The patient is here for EGD for further evaluation. Procedure: Prior to the procedure, a history and physical exam was performed, and patient's medications and allergies were reviewed. The risks, benefits and alternatives of the sedation and procedure were discussed with the patient. All questions were answered and informed consent was obtained. The patient was brought to the procedure room. Patient identification and proposed procedure were verified by the physician and the nurse. The patient was placed in a left lateral decubitus position and the scope was passed under direct vision. Throughout the procedure, the patient's blood pressure, pulse, and oxygen saturations were monitored continuously. The upper GI endoscopy was accomplished without difficulty. The patient tolerated the procedure well. Findings: The scope was passed directly into the upper esophagus and advanced to the third portion of the duodenum. The post bulbar duodenum and duodenal bulb were normal with normal mucosa and conniventes. The scope was withdrawn through a normal duodenal bulb and pylorus into the stomach. There was bile reflux with linear reactive gastropathy of the antrum and body. The remainder of the fundus of the stomach were grossly normal. Upon retroflexion there was a 2 to 3 cm medium sized hiatal hernia. The scope was then withdrawn into the esophagus. Starting from the GE junction which was at 38 cm from the incisors to 34 cm from the incisors was a fungating mass lesion in the distal esophagus consistent with distal esophageal neoplasm?suspected distal esophageal adenocarcinoma arising within the setting of Ahn's esophagus. Because of the bulky nature of this, a snare was used to remove 2 segments via cold snare polypectomy. Next, this region was dilated to 18 mm (54 Polish) with a TTS hydrostatic balloon. The remainder of the esophageal mucosa was normal. Impression: 1. 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 Medium sized (2 to 3 cm) hiatal hernia 3. Bile reflux with linear reactive gastropathy Plan: I am going to review the patient's recent CT scan of the chest. He did have esophageal thickening but no evidence of mediastinal or hilar adenopathy or distant hepatic lesions. I would like to repeat a contrast CT scan of the chest and abdomen with IV/oral contrast. Based upon his age and comorbidity, I am going to initially send him to oncology (Dr. Kaylene Brooke).
--- NOTE | 2020-05-10 13:27 | CT_ITS ---
PROCEDURE: CT ABDOMEN PELVIS W CON CLINICAL INDICATION: esophageal mass Esophageal carcinoma COMPARISON: CT CTAA CTA-ABD from 02/01/[address] CHEST WO CON from 11/25/[address] ANGIO CHEST from 04/03/2020 TECHNIQUE: IV Contrast: 75ML Isovue 370 Oral Contrast None Axial images obtained with sagittal and coronal reformats. All CT scans at the facility use one or more dose reduction, viz: automated exposure control, ma/kV adjustment per patient size (including targeted exams where dose is matched to indication, i.e. head), or iterative reconstruction technique. FINDINGS: There is thickening of the distal aspect of the esophagus consistent with esophageal carcinoma with small paraesophageal lymph nodes as described in the CT chest report. There is a 9 mm hypodense lesion in the right hepatic lobe inferiorly, segment 6. The liver is otherwise unremarkable. Has been a prior cholecystectomy with mild biliary ectasia. The spleen, adrenal glands, and pancreas have an unremarkable appearance. There is a 2 cm left renal cyst and 1.5 cm left renal cyst with bilateral prominence of the renal pelves versus parapelvic renal cyst. There is a small periportal lymph node present measuring 1.5 cm not significantly changed from 02/01/2017. No intestinal obstruction or free air. No evidence of appendicitis or diverticulitis. Prostate calcifications are present. There are small bilateral inguinal hernias containing fat. No bony destructive process. No lytic or blastic change. There are degenerative changes in the lumbar spine. 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 Indeterminate 9 mm hypodensity of the right hepatic lobe segment 6. Differential diagnosis would include a metastatic focus or hemangioma.. MRI of the abdomen with hemangioma protocol may further differentiate. Dictated by: Jose Alberto Sidhu MD 05/11/2020 09:58 Jose Alberto Sidhu MD in [place] 05/11/2020 09:58
--- NOTE | 2020-05-10 13:27 | CT_ITS ---
PROCEDURE: CT CHEST W CON CLINCAL INDICATION: esophageal mass Seen on scope today Hx of GERD and Barretts COMPARISON: CT CT CHEST WO CON from 11/25/[address] ANGIO CHEST from 04/03/2020 TECHNIQUE: IV Contrast: 75ml Isovue 370 Axial images obtained with sagittal and coronal reformats. All CT scans at the facility use one or more dose reduction, viz: automated exposure control, ma/kV adjustment per patient size (including targeted exams where dose is matched to indication, i.e. head), or iterative reconstruction technique. FINDINGS: There is a segment of esophageal thickening beginning in the lower esophagus and extending for a length of approximately 8 cm. This is suspicious for esophageal carcinoma. There are few small nodes in the paraesophageal region the largest in the right paraesophageal area measuring 1.9 by 1.2 cm. The GE junction has an unremarkable appearance. There is a small paraesophageal lymph node to the right of the GE junction measuring 1.1 cm. There is a small subcarinal node at 1.7 by 0.7 cm. Small pretracheal node is present at 1.1 cm. These findings are not significantly changed from 04/03/2020. Coronary artery calcifications and/or stents noted. There is normal heart size with no evidence of pericardial effusion. COPD changes with scattered areas of scarring there is a 4 mm noncalcified nodule in the right upper lobe image 51 series 4 unchanged. Atelectatic changes are present in the lung bases. There are few scattered calcified granulomas. There also a few scattered 1-2 mm nodules not significantly changed. No dominant nodules are evident. There is a 2 mm nodular opacity in the left lower lobe image 64 series 4 and a 2 mm nodule in the left upper lobe image 30 series 4. These are not readily apparent on the previous exam. The left upper lobe nodule does appear to contain a small focus of calcification. Subpleural nodule noted along the left major fissure left lower lobe at 3 mm image 46 unchanged. No effusions or infiltrates. No acute bony findings. Cardiac pacemaker device is present from the left subclavian approach IMPRESSION: Thickening of the distal esophagus suspicious for esophageal mass/neoplasm with a few small paraesophageal lymph nodes. Overall not significantly changed. COPD with a few scattered pulmonary nodules. Most of these are not significantly changed and may represent sequela from old granulomatous disease.. There are couple nodules 1 in the left upper lobe and 1 left lower lobe not readily apparent previously possibly due to slice orientation. These are 1-2 mm and are of questionable clinical significance. Continued follow-up is suggested to exclude developing metastatic foci.. Dictated by: Jose Alberto Sidhu MD 05/11/2020 09:37 Jose Alberto Sidhu MD in [place] 05/11/2020 09:37
[2020-05-10 14:19] LABS: Hematocrit 38.7 % (42.0-52.0); Hemoglobin 12.5 g/dL (14.1-18.0)
[2020-05-10 14:55] LABS: Blood Urea Nitrogen 18 mg/dl (9-20); Creatinine Clearance Estimated 49 mL/min (50-200); Estimated Glomerular Filt Rate 53 ml/min (>60); GFR (African American) 64 ML/MIN (>60); Iron 70 ug/dL (49-181)
[2020-05-10 15:05] LABS: Total Iron Binding Capacity 269 ug/dL (261-462)
[2020-05-10 15:32] LABS: Ferritin 22.4 ng/ml (17.9-464)
== END 2020-05-10 14:45 | disposition home or self-care (01) ==
LOC: OUTP 10:45
PROVIDERS: PCP Family Medicine; Visit Provider Internal Medicine Gastroenterology
PROC: 0DJ08ZZ Inspection of Upper Intestinal Tract, Via Natural or Artificial Opening Endoscopic (ICD-10-PCS; CPT 43235; principal; 2020-05-10 12:00)
DX: C15.5 Malignant neoplasm of lower third of esophagus (principal); K44.9 Diaphragmatic hernia without obstruction or gangrene; K31.9 Disease of stomach and duodenum, unspecified; Z87.19 Personal history of other diseases of the digestive system; I11.0 Hypertensive heart disease with heart failure; I50.9 Heart failure, unspecified; Z95.0 Presence of cardiac pacemaker; I25.10 Atherosclerotic heart disease of native coronary artery without angina pectoris; I42.9 Cardiomyopathy, unspecified; F41.9 Anxiety disorder, unspecified; R00.2 Palpitations; M19.90 Unspecified osteoarthritis, unspecified site; E03.9 Hypothyroidism, unspecified
CPT/HCPCS: 43249; 43251; 36415; 71260; 74177; 82565; 82728; 83540; 83550; 84520; 85014; 85018; 88305; C1726; Q9967

== ENCOUNTER → 2020-05-14 06:51 | Outpatient (CLI) | payer MEDICARE, OTHER, SELFPAY ==
--- NOTE | 2020-05-14 | CA_ITS ---
APPROVED REPORT Exam: Pharmacologic Technologist: Karma Romero, Ht: 6 ft 0 in Wt: 176 lbs BSA: 2.02 m2 HR: 70 bpm BP: 163/83 mmHg Medical History Medications: Lorazepam,,,,, Aspirin,,,,, Carvedilol,,,,, SyMBICORT,,,,, Albuterol,,,,, SpirOLACTONE,,,,, Protonix,,,,, Ranexa,,,,, TicaAGRELOR,,,,, Stress Test Details Test: LEXISCAN HR Resting HR: 70 bpm Max Heart Rate (APMHR): 138 bpm Max HR Achieved: 80 bpm Target HR (85% APMHR): 117 bpm % of APMHR: 57 Recovery HR: 70 bpm BP Resting BP: 163/83 mmHg Max BP: 163/83 mmHg Recovery BP: 154.0/74.0 mmHg ECG Clinical Exercise duration: 04:37 min Highest Stage Achieved: Exercise capacity: 1.0 METs Stress ECG Conclusion Lexiscan portion completed. Pt c/o Shortness of Breath during peak infusion. Symptoms: No CP, (+) SOB during peak infusion, resolved in recovery. Arrythmias/Ectopy: No Ectopy ST-T Changes: Less than 1.5mm ST depression Conclusion: Images to follow Electronically signed by : Say Mccall, 05/17/2020 08:44:28
--- NOTE | 2020-05-14 06:51 | NM_ITS ---
APPROVED REPORT Exam: Nuclear Stress Test Indication: hypertension Patient Location: Outpatient Stress Tech: Mari Reid [place] Tech:WALLACE Martin RT(R)(N) Ht: 6 ft 2 in Wt: 195 lbs HR: 70 bpm BP: 163/83 mmHg BSA: 2.15 m2 BMI: 25.0 Procedure: Patient received a 0.4 mg of intravenous Lexiscan, resting heart rate 70 bpm, resting blood pressure 163/83 mmHg, with Lexiscan maximum heart rate achived was 75 bpm which is 85 % of the maximum predicted heart rate and blood pressure was 153/69 mmHg. Cardiac Stress and Resting SPECT Images: Cardiac Stress and Resting SPECT images were obtained using technetium 99m Myoview 30.5 mCi stress and 10.58 mCi at rest. EF 49 % Apical hypokinesia reversible anabel-apical defect consistent with ischemia Conclusion: EF 49 % Apical hypokinesia reversible anabel-apical defect consistent with ischemia Electronically signed by : Jose Alberto Sidhu MD 05/17/2020 13:29:33
--- NOTE | 2020-05-14 06:51 | CA_ITS ---
APPROVED REPORT Senior Service Technician: Pauline Winn RVT Laterality: Bilateral Study Quality: Excellent Indications: carotid bruits Risk Factors Hypertension: Hyperlipidemia Doppler Spectral Velocity Analysis ECA (R) 64.20/9.60 cm/s ECA (L) 72.70/11.80 cm/s dICA (R) 80.20/26.70 cm/s dICA (L) 75.90/25.70 cm/s Sarah (R) 83.40/20.30 cm/s Sarah (L) 66.30/19.20 cm/s pICA (R) 89.80/16.00 cm/s pICA (L) 72.70/18.20 cm/s dCCA (R) 83.40/19.20 cm/s dCCA (L) 62.00/15.00 cm/s pCCA (R) 54.50/13.90 cm/s pCCA (L) 69.50/15.00 cm/s Vert (R) 46.00/11.80 cm/s Vert (L) 42.80/12.80 cm/s ICA/CCA 1.08 ICA/CCA 1.22 Findings Study suggests less than 20% stenosis of the right internal cartoid artery. Study suggests less than 20% stenosis of the left internal cartoid artery. Antegrade flow seen bilateral vertebral arteries. Conclusion Study suggests less than 20% stenosis of the right internal cartoid artery. Study suggests less than 20% stenosis of the left internal cartoid artery. Antegrade flow seen bilateral vertebral arteries. Electronically signed by : Jose Alberto Sidhu MD 05/14/2020 16:09:03
== END ==
PROVIDERS: PCP Family Medicine; Visit Provider Internal Medicine Cardiovascular Disease
DX: R09.89 Other specified symptoms and signs involving the circulatory and respiratory systems (principal); R07.2 Precordial pain
CPT/HCPCS: 78452; 93017; 93880; A9502; J2785

== ENCOUNTER 2020-07-01 14:46 | Emergency (ER) | payer MEDICARE, OTHER, SELFPAY ==
[2020-07-01 15:02] VITALS: BP 120/64; PULSE 83; RESP 22; TEMP 37.2; O2SAT 92; BMI 24.4
--- NOTE | 2020-07-01 15:10 | XR_ITS ---
PROCEDURE: XR CHEST PORTABLE CLINICAL HISTORY: FEVER COMPARISON: CR XR CHEST AP from 07/01/2019 CR XR CHEST 2V from 04/03/2020 CR XR CHEST 2V from 04/11/[address] CHEST W CON from 05/10/2020 FINDINGS: There is a bipolar pacemaker present from left subclavian approach. There is a 3 x 1 cm density in the right mid lung not readily apparent on the previous exam. An area atelectasis scarring or developing pulmonary nodule is a consideration. Consider chest CT for further evaluation. No acute bony abnormalities. IMPRESSION: New parenchymal opacity in the right middle lobe region which could be due to atelectasis scarring or neoplasm. Consider chest CT for further evaluation Dictated by: Jose Alberto Sidhu MD 07/01/2020 16:21 Jose Alberto Sidhu MD in [place] 07/01/2020 16:21
--- NOTE | 2020-07-01 15:11 | HMH.EDGENADL ---
ED Disposition Clinical Impression: Fever Qualifiers: Fever type: unspecified Qualified Code(s): R50.9 - Fever, unspecified Esophageal cancer Qualifiers: Malignant neoplasm of esophagus location: unspecified location Qualified Code(s): C15.9 - Malignant neoplasm of esophagus, unspecified Disposition: Home, Self-Care Condition on Discharge: Fair Additional Instructions: Stop Bactrim. Start Levaquin. Tylenol for fever. Contact Dr. Enciso if worsening. Follow-up with Dr. Enciso in clinic next week. Prescriptions: levoFLOXacin [Levaquin 500mg tab] 500 mg PO DAILY #9 tab Transmission Status: Re[facility] Referrals: Adiel Davis MD [Primary Care Provider] - - Critical Care Critical Care Time: No Attestation: On 07/01/20, the high probability of a clinically significant, sudden or life threatening deterioration of the following system(s) required my full and direct attention, intervention and personal management. The time I documented below is in addition to time spent performing reported procedures but includes the following listed in this critical care notation. Medical Decision Making - Lev Inquiry Pt receiving controlled substance: No Vital Signs: 07/01/20 15:02 07/01/20 15:40 07/01/20 16:30 Temperature 99 F Temperature Source Oral Pulse Rate 74 69 Pulse Rate [Radial] 83 Respiratory Rate 22 20 25 H Blood Pressure 111/64 100/61 L Blood Pressure [Right Arm] 120/64 Blood Pressure Mean 69 Blood Pressure Mean [Right Arm] 82 Blood Pressure Position [Right Arm] Sitting 02 Sat by Pulse Oximetry 92 L 93 L 92 L Oxygen Delivery Method Room Air Room Air - Lab Data Lab Results 07/01/20 15:05: WBC 2.4 L, RBC 4.24 L, Hgb 13.1 L, Hct 39.3 L, MCV 92.8, MCH 30.9, MCHC 33.3, RDW 13.6, Plt Count 163, MPV 8.4, Neut % (Auto) 81.2 H, Lymph % (Auto) 5.5 L, Hand % (Auto) 1.3 L, Eos % (Auto) 11.6, Baso % (Auto) 0.5, Neut # (Auto) 2.0, Lymph # (Auto) 0.1 L, Hand # (Auto) 0.0 L, Eos # (Auto) 0.3, Baso # (Auto) 0.0 07/01/20 15:05: Sodium 131 L, Potassium 4.6, Chloride 101, Carbon Dioxide 21 L, Anion Gap 13.6, BUN 23 H, Creatinine 1.20, Estimated Creat Clear 55, Estimated GFR 58 L, Est GFR ( Amer) 70, Glucose 98, Calcium 8.9, Total Bilirubin 1.1, AST 43, ALT 45, Alkaline Phosphatase 87, Total Protein 6.8, Albumin 3.5, Globulin 3.3 H, Albumin/Globulin Ratio 1.1, Procalcitonin 0.180 07/01/20 15:05: Lactate 1.3 07/01/20 15:55: Urine Color Yellow, Urine Appearance Sl cloudy, Urine pH 7.0, Ur Specific War 1.010, Urine Protein Negative, Urine Glucose (UA) Negative, Urine Ketones Negative, Urine Blood 1+, Urine Nitrate Negative, Urine Bilirubin Negative, Urine Urobilinogen 0.2, Ur Leukocyte Esterase Negative, Urine RBC 5-10, Urine WBC 3-5, Ur Squamous Epith Cells Occasional, Urine Bacteria Trace Result diagrams: 07/01/20 15:05 07/01/20 15:05 Orders (Tests/Meds): ED MEDICATIONS Discontinued Medications Generic Name Dose Route Start Last Admin Trade Name Cristi PRN Reason Stop Dose Admin Ketorolac Tromethamine 15 mg 07/01/20 16:01 07/01/20 15:50 Ketorolac 30mg/Ml Vial IV 07/01/20 16:02 15 mg ONCE ONE Administration Levofloxacin 500 mg 07/01/20 16:49 07/01/20 16:53 Levofloxacin 500mg Tab PO 07/01/20 16:50 500 mg ONCE ONE Administration Protocol Ondansetron HCl 4 mg 07/01/20 16:01 07/01/20 15:50 Ondansetron 4mg/2ml Vial IV 07/01/20 16:02 4 mg ONCE ONE Administration ORDERS Category Date Time Status Full Resp Panel w/COVID ([facility]) Routine Lab 07/01/20 15:36 Received Blood Culture Stat Micro 07/01/20 15:05 Received - Radiology Data #1 Image(s): Chest, Shoulder Image Reviewed: Yes I reviewed the patient's radiology image, Yes I have reviewed radiologist's interpretation PROCEDURE: XR CHEST PORTABLE CLINICAL HISTORY: FEVER COMPARISON: CR XR CHEST AP from 07/01/2019 CR XR CHEST 2V from
[2020-07-01 15:25] LABS: Basophils % 0.5 % (0.1-2.0); Eosinophils # 0.3 K/mm3 (0.0-0.4); Eosinophils % 11.6 % (0.1-12.0); Hematocrit 39.3 % (42.0-52.0); Hemoglobin 13.1 g/dL (14.1-18.0); Lymphocytes # 0.1 K/mm3 (0.7-4.5); Lymphocytes % 5.5 % (10-50); Mean Corpuscular HGB Conc 33.3 g/dL (31.8-35.4); Mean Corpuscular Hemoglobin 30.9 pg (27.0-31.2); Mean Corpuscular Volume 92.8 fl (80-94); Mean Platelet Volume 8.4 fl (7.4-10.4); Monocytes % 1.3 % (1.7-9.3); Neutrophils % 81.2 % (37.0-80.0); Platelet Count 163 K/mm3 (142-424); Red Blood Count 4.24 M/mm3 (4.60-6.20); Red Cell Distribution Width 13.6 % (11.5-17.5); White Blood Count 2.4 K/mm3 (4.8-10.8)
--- NOTE | 2020-07-01 15:30 | XR_ITS ---
PROCEDURE: XR SHOULDER RT MIN 2V CLINICAL INDICATION: injury, pain COMPARISON: CR SHOULDCMLT XR shoulder LT min 2V from 05/07/2018 FINDINGS: No fracture or dislocation. No lytic or blastic change. There is normal mineralization. There are mild osteoarthritic changes of the glenohumeral joint with slightly high-riding humeral head and mild subacromial stenosis. Other findings:None. IMPRESSION: No acute finding. Osteoarthritic changes with slightly high-riding humeral head Dictated by: Jose Alberto Sidhu MD 07/01/2020 16:02 Jose Alberto Sidhu MD in [place] 07/01/2020 16:02
[2020-07-01 15:34] LABS: Lactic Acid 1.3 mmol/L (0.7-2.1)
[2020-07-01 15:35] LABS: Alanine Aminotransferase 45 U/L (12-78); Albumin Level 3.5 g/dl (3.5-5.0); Albumin/Globulin Ratio 1.1 (1.1-1.8); Alkaline Phosphatase 87 U/L (38-126); Anion Gap 13.6 mEq/L (5-15); Aspartate Amino Transferase 43 U/L (17-59); Bilirubin,Total 1.1 mg/dl (0.2-1.3); Blood Urea Nitrogen 23 mg/dl (9-20); Calcium 8.9 mg/dl (8.4-10.2); Carbon Dioxide 21 mmol/L (22.0-30.0); Chloride 101 mmol/L (98-107); Creatinine Clearance Estimated 55 mL/min (50-200); Estimated Glomerular Filt Rate 58 ml/min (>60); GFR (African American) 70 ML/MIN (>60); Globulin 3.3 g/dL (1.3-3.2); Glucose 98 mg/dl (74-100); Potassium 4.6 mmoL/L (3.5-5.1); Sodium 131 mmol/L (136-145); Total Protein,Serum 6.8 g/dl (6.3-8.2)
[2020-07-01 15:40] VITALS: BP 111/64; PULSE 74; RESP 20; O2SAT 93
[2020-07-01 15:45] LABS: Adenovirus,PCR Not Detected (NotDetected); Bordetella Pertussis Not Detected (NotDetected); Chlamydophila Pneumoniae, PCR Not Detected (NotDetected); Coronavirus 19, PCR Not Detected (NotDetected); Coronavirus 229E Not Detected (NotDetected); Coronavirus NL63 Not Detected (NotDetected); Coronavirus OC43 Not Detected (NotDetected); Coronovirus HKU1,PCR Not Detected (NotDetected); Human Metapneumovirus Not Detected (NotDetected); Influenza A, PCR Not Detected (NotDetected); Influenza AH1, 2009 Not Detected (NotDetected); Influenza AH1, PCR Not Detected (NotDetected); Influenza AH3,PCR Not Detected (NotDetected); Influenza B, PCR Not Detected (NotDetected); Mycoplasma Pneumoniae, PCR Not Detected (NotDetected); Parainfluenza 1, PCR Not Detected (NotDetected); Parainfluenza 2, PCR Not Detected (NotDetected); Parainfluenza 3, PCR Not Detected (NotDetected); Parainfluenza 4, PCR Not Detected (NotDetected); Respiratory Syncytial Virus Not Detected (NotDetected); Rhinovirus/Enterovirus Not Detected (NotDetected)
[2020-07-01 15:59] LABS: Microscopic, Urine URINE MICROSCOPIC (MICROSCOPIC)
[2020-07-01 16:00] LABS: Appearance,Urine SL CLOUDY (Clear); Bilirubin,Urine Negative (Negative); Blood, Urine 1+ (Negative); Color,Urine YELLOW (Yellow); Glucose,Urine (UA) Negative (Negative); Ketones,Urine Negative (Negative); Leukocyte Esterase,Urine Negative (Negative); Nitrate,Urine Negative (Negative); Protein,Urine Negative (Negative); Urobilinogen,Urine 0.2 EU/dl (0.2)
[2020-07-01 16:08] LABS: Bacteria,Urine Trace /lpf; Squamous Epithelial Cell,Urine Occasional #/hpf (0-5)
[2020-07-01 16:30] VITALS: BP 100/61; PULSE 69; RESP 25; O2SAT 92
--- NOTE | 2020-07-01 16:34 | PC.NURSE ---
placed call to [facility] for Dr Enciso, hematology/oncology. dehydrogenation operator MD is to call back.
--- NOTE | 2020-07-01 16:39 | PC.NURSE ---
Dr Richards speaking with Dr Nair administrative receptionist MD for [facility] Hematology/Oncology.
[2020-07-01 17:14] VITALS: BP 100/61; PULSE 69; RESP 22; TEMP 37.2; O2SAT 93
== END 2020-07-01 17:16 | disposition home or self-care (01) ==
PROVIDERS: Emergency Provider Emergency Medicine; PCP Family Medicine
DX: C15.9 Malignant neoplasm of esophagus, unspecified (principal)
CPT/HCPCS: 71045; 73030; 80053; 81001; 83605; 84145; 85025; 87040; 87581; 87633; 87798; 96365; 96375; 99283; J2405

== ENCOUNTER 2020-07-03 14:25 | Inpatient (IN) | payer MEDICARE, OTHER, SELFPAY ==
[2020-07-03] VITALS (22 sets, daily range): BP systolic 100–180; BP diastolic 59–92; PULSE 52–104; RESP 12–24; TEMP 36.2–36.6; O2SAT 91–96; BMI 21.7; BMI 21.9
--- NOTE | 2020-07-03 | IR_ITS ---
APPROVED REPORT Patient Location: Emergent Automatic Die Cutting Machine Operator: WALLACE Stauffer RT (R) PROCEDURES Left heart catheterization Left ventriculogram Selective coronary angiogram INDICATION Acute non-ST elevation myocardial infarction Informed consent was obtained prior to the procedure. COMPLICATIONS NONE Estimated Blood Loss: LESS THAN 10 ML TECHNIQUE One percent lidocaine used to anesthetize the right anterior aspect of the wrist. The right radial artery was accessed via the Seldinger technique. A 6 Romanian sheath was placed in the right radial artery. 2.5 mg of verapamil, 800 mcg of nitroglycerin, 1mg Lidocaine and 5000 U Heparin were given through the arterial sheath. The trap catheter was also used to perform left heart catheterization, left ventriculogram and selective coronary angiogram. At the end of the procedure the sheath was removed good hemostasis was achieved using Traclet band, patient was transferred to the postop holding area in stable condition. ANGIOGRAPHIC RESULTS The left main artery Normal The left anterior descending artery Widely patent with mild 10% luminal irregularities The circumflex artery Is a dominant vessel and with a moderate sized ramus intermedius originating from the left main artery which has proximal mid vessel 10% stenoses. The circumflex artery itself is a large dominant vessel with mild 10% luminal irregularities The right coronary artery Is a nondominant vessel has a stent in the proximal segment widely patent free of in-stent restenosis or thrombosis. The mid right coronary artery has 40% stenosis while the distal segment has 40% stenosis. 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 Patient's cardiomyopathy is secondary to anxiety/stress. I would recommend patient be started on benzodiazepines either scheduled or as needed given his stage IV cancer diagnosis. There must be some interplay with the cancer in patient's anxiety which resulted in the stress myocardial infarction 2. Continue treatment with dual antiplatelet therapy given relatively recent stent 3. Supportive care 4. We will start with Xanax 0.25 1 to 2 mg p.o. every 6 hours as needed anxiety Electronically signed by : Say Mccall, 07/03/2020 19:13:42
--- NOTE | 2020-07-03 14:18 | ECG_ITS ---
APPROVED REPORT Exam: Resting ECG HR:103 bpm ECG Measurements Heart Rate 103 AXES AK 182 P 82 QRSd 140 QRS 43 QT 366 T 128 QTc 479 Conclusion Sinus tachycardia with premature atrial complexes and premature ventricular complexes or fusion complexes Left bundle branch block Abnormal ECG Electronically signed by : Adiel Reyes, 07/04/2020 08:49:06
--- NOTE | 2020-07-03 14:32 | XR_ITS ---
PROCEDURE: XR CHEST PORTABLE CLINICAL HISTORY: chest pain, SOA COMPARISON: CR XR CHEST 2V from 04/03/2020 CR XR CHEST 2V from 04/11/[address] CHEST W CON from 05/10/2020 CR XR CHEST PORTABLE from 07/01/2020 FINDINGS: Bipolar pacemaker is present from left subclavian approach. The lungs are clear without infiltrates, suspicious nodules, or pleural effusions. No acute bony abnormalities. IMPRESSION: No acute findings. Dictated by: Jose Alberto Sidhu MD 07/03/2020 15:43 Jose Alberto Sidhu MD in [place] 07/03/2020 15:43
--- NOTE | 2020-07-03 14:34 | HMH.EDGENADL ---
ED Disposition Clinical Impression: NSTEMI (non-ST elevated myocardial infarction) Chest pain Qualifiers: Chest pain type: unspecified Qualified Code(s): R07.9 - Chest pain, unspecified Leukopenia Qualifiers: Leukopenia type: unspecified Qualified Code(s): D72.819 - Decreased white blood cell count, unspecified Disposition: Admitted As Inpatient Condition on Discharge: Fair Referrals: Adiel eRyes MD [Staff Physician] - Time of Disposition: 18:31 - Critical Care Critical Care Time: Yes Attestation: On , the high probability of a clinically significant, sudden or life threatening deterioration of the following system(s) required my full and direct attention, intervention and personal management. The time I documented below is in addition to time spent performing reported procedures but includes the following listed in this critical care notation. Total Critical Care Time: 65 Vital system(s) involved:: Circulatory Failure My critical care processes included: Assessment & monitoring of V/S, Initial and Re-exams, Data Review/Interpretation, Coordinating Care, Medication Orders and management, Documentation Medical Decision Making - Medical Records Medical records reviewed: Yes: I reviewed the patient's medical records. - Lev Inquiry Pt receiving controlled substance: No Vital Signs: 07/03/20 14:31 07/03/20 15:00 07/03/20 15:30 Temperature 97.8 F Temperature Source Oral Pulse Rate 104 H 98 H 89 Pulse Rate [Apical] 52 L Respiratory Rate 24 16 18 Blood Pressure 131/80 150/80 H 149/80 H Blood Pressure [Right Arm] 180/92 H Blood Pressure Mean Blood Pressure Mean [Right Arm] 121 Blood Pressure Source [Right Arm] Automatic Cuff Blood Pressure Position [Right Arm] Sitting 02 Sat by Pulse Oximetry 93 L 92 L 92 L Oxygen Delivery Method Room Air Room Air Oxygen Flow Rate (LPM) 07/03/20 16:00 07/03/20 16:30 07/03/20 17:00 Temperature Temperature Source Pulse Rate 76 72 89 Pulse Rate [Apical] Respiratory Rate 22 24 24 Blood Pressure 147/82 H 132/80 129/78 Blood Pressure [Right Arm] Blood Pressure Mean 103 98 90 Blood Pressure Mean [Right Arm] Blood Pressure Source [Right Arm] Blood Pressure Position [Right Arm] 02 Sat by Pulse Oximetry 92 L 92 L 92 L Oxygen Delivery Method Room Air Room Air Room Air Oxygen Flow Rate (LPM) 07/03/20 17:30 07/03/20 17:43 Temperature Temperature Source Pulse Rate 87 Pulse Rate [Apical] Respiratory Rate 20 Blood Pressure 126/78 Blood Pressure [Right Arm] Blood Pressure Mean 94 Blood Pressure Mean [Right Arm] Blood Pressure Source [Right Arm] Blood Pressure Position [Right Arm] 02 Sat by Pulse Oximetry 91 L 93 L Oxygen Delivery Method Nasal Cannula Oxygen Flow Rate (LPM) 2 - Lab Data Lab results reviewed: Yes: I reviewed the patient's lab results. Lab Results 07/03/20 14:32: WBC 1.0 L* D, RBC 4.51 L, Hgb 14.0 L, Hct 42.0, MCV 93.0, MCH 31.1, MCHC 33.4, RDW 13.1, Plt Count 222 D, MPV 8.4, Neut % (Auto) 74.4, Lymph % (Auto) 16.0, [place] % (Auto) 3.3, Eos % (Auto) 5.7, Baso % (Auto) 0.6, Neut # (Auto) 0.8 L*, Lymph # (Auto) 0.2 L, [place] # (Auto) 0.0 L, Eos # (Auto) 0.1, Baso # (Auto) 0.0, Total Counted 50, Neutrophils % (Manual) 76, Band Neutrophils % 4.0, Lymphocytes % (Manual) 12, Monocytes % (Manual) 4, Eosinophils % (Manual) 4 H, Platelet Estimate Normal, RBC Morphology Normal 07/03/20 14:32: Sodium 132 L, Potassium 4.5, Chloride 102, Carbon Dioxide 20 L, Anion Gap 14.5, BUN 22 H, Creatinine 1.20, Estimated Creat Clear 49, Estimated GFR 58 L, Est GFR ( Amer) 70, Glucose 145 H, Calcium 9.2, Troponin I 0.06 H 07/03/20 16:32: Troponin I 2.74 H Result diagrams: 07/03/20 14:32 07/03/20 14:32 Orders (Tests/Meds): ED MEDICATIONS Generic Name Dose Route Start Last Admin Trade Name Freq PRN Reason Stop Dose Admin Diphenhydramine HCl 50 mg 07/03/20 18:22 Diphenhydramine 50mg/Ml Vial
[2020-07-03 14:43] LABS: Eosinophils # 0.1 K/mm3 (0.0-0.4); Lymphocytes # 0.2 K/mm3 (0.7-4.5); Mean Platelet Volume 8.4 fl (7.4-10.4)
[2020-07-03 14:45] LABS: Chloride 102 mmol/L (98-107); Potassium 4.5 mmoL/L (3.5-5.1); Sodium 132 mmol/L (136-145)
[2020-07-03 14:48] LABS: Anion Gap 14.5 mEq/L (5-15); Basophils % 0.6 % (0.1-2.0); Blood Urea Nitrogen 22 mg/dl (9-20); Carbon Dioxide 20 mmol/L (22.0-30.0); Creatinine Clearance Estimated 49 mL/min (50-200); Eosinophils % 5.7 % (0.1-12.0); Estimated Glomerular Filt Rate 58 ml/min (>60); GFR (African American) 70 ML/MIN (>60); Mean Corpuscular HGB Conc 33.4 g/dL (31.8-35.4); Mean Corpuscular Hemoglobin 31.1 pg (27.0-31.2); Monocytes % 3.3 % (1.7-9.3); Neutrophils # 0.8 K/mm3 (1.8-7.8); Neutrophils % 74.4 % (37.0-80.0); Platelet Count 222 K/mm3 (142-424); Red Blood Count 4.51 M/mm3 (4.60-6.20); Red Cell Distribution Width 13.1 % (11.5-17.5)
[2020-07-03 14:49] LABS: Calcium 9.2 mg/dl (8.4-10.2); Glucose 145 mg/dl (74-100)
[2020-07-03 14:51] LABS: MANUAL DIFFERENTIAL MANUAL DIFFERENTIAL (MANUAL DIFF)
[2020-07-03 15:02] LABS: Eosinophils % 4 % (0-3); Lymphocytes % 12 % (10-50); Monocytes % 4 % (2-9); Neutrophils % 76 % (42-76); Total Cells Counted 50; Troponin I 0.06 ng/ml (0.00-0.034)
[2020-07-03 15:03] LABS: Platelet Estimate Normal; RBC Morphology Normal
[2020-07-03 17:00] LABS: Troponin I 2.74 ng/ml (0.00-0.034)
--- NOTE | 2020-07-03 17:00 | PC.NURSE ---
notified ER of critical troponin called per lab
--- NOTE | 2020-07-03 17:00 | PC.NURSE ---
straight slicing machine operator paging Dr. Mccall
--- NOTE | 2020-07-03 17:01 | PC.NURSE ---
CASE KOHLER speaking with Dr. Mccall
--- NOTE | 2020-07-03 17:13 | PC.NURSE ---
pharmacy gave instructions for heparin bolus dosing at 60 units/kg per IV (spoke with Frank)
--- NOTE | 2020-07-03 17:32 | PC.NURSE ---
per halfway house counselor Nora tillman does not need to have another covid swab r/t have negative covid swab 2 days ago in ED
--- NOTE | 2020-07-03 17:55 | PC.NURSE ---
CASE KOHLER speaking with Dr. Mccall
--- NOTE | 2020-07-03 17:56 | PC.NURSE ---
notified scalehouse attendant that Dr. Mccall stated to ER to call in the cardiac cath lab technologist team
--- NOTE | 2020-07-03 18:17 | PC.NURSE ---
CASE KOHLER speaking with Dr. Reyes who is senior applications developer for Dr. Davis
--- NOTE | 2020-07-03 18:37 | PC.NURSE ---
pt transported to rn labor delivery via stretcher per julieth maharaj (dye house wheel operator) at this time
--- NOTE | 2020-07-03 18:41 | PC.NURSE ---
report given to julieth man in label drier at this time
--- NOTE | 2020-07-03 19:44 | PC.NURSE ---
PT ARRIVED TO FLOOR VIA STRETCHER FROM MANAGER PORT W/STAFF AT 194
[2020-07-04] VITALS (14 sets, daily range): BP systolic 101–115; BP diastolic 56–66; PULSE 68–87; RESP 13–18; TEMP 36.1–36.9; O2SAT 90–95; BMI 21.9
--- NOTE | 2020-07-04 03:22 | PC.NURSE ---
A&OX3. PT TOLERATING 1LNC AT THIS TIME. PT HAS DONE VERY WELL T/O SHIFT. PT HAS BEEN VERY TEARY EYED AND EMOTIONAL AT TIMES. POST CATH VITALS WNL. R RADIAL CATH SITE CDI. PT UP WITH X2 STANDBY ASSIST TO BATHROOM. NO ISSUES. ADMINISTERED ORDERED MEDS, SEEMED TO HELP PT RELAX AND REST. PT HAS NOT C/O PAIN/SOA THIS SHIFT. PT DOES STATE THAT HE IS WEAK. CRITICAL TROPONIN REPORTED TO SKIRT PANEL ASSEMBLER MD MEDINA. NNO. VSS WILL CONTINUE TO MONITOR.
--- NOTE | 2020-07-04 05:14 | PC.NURSE ---
ice passed trash and linens picked up. pt had no other needs.[email or web address]
--- NOTE | 2020-07-04 06:30 | PC.NURSE ---
ASSISTED PT TO RESTROOM. PT IS IN MUCH BETTER SPIRITS THIS MORNING. AMBULATING MUCH BETTER WITH X1 STANDBY ASSIST. PT HAS NO C/O AND STATES HE FEELS MORE RELAXED. WILL CONTINUE TO MONITOR.
[2020-07-04 07:43] LABS: Chloride 104 mmol/L (98-107); Eosinophils # 0.1 K/mm3 (0.0-0.4); Lymphocytes # 0.2 K/mm3 (0.7-4.5); Sodium 133 mmol/L (136-145)
[2020-07-04 07:44] LABS: Potassium 4.8 mmoL/L (3.5-5.1)
[2020-07-04 07:46] LABS: Blood Urea Nitrogen 19 mg/dl (9-20); Creatinine Clearance Estimated 54 mL/min (50-200); Estimated Glomerular Filt Rate 64 ml/min (>60); GFR (African American) 78 ML/MIN (>60)
[2020-07-04 07:47] LABS: Anion Gap 8.8 mEq/L (5-15); Calcium 8.7 mg/dl (8.4-10.2); Carbon Dioxide 25 mmol/L (22.0-30.0); Glucose 98 mg/dl (74-100); Magnesium 1.9 mg/dl (1.6-2.3); Phosphorous 3.1 mg/dl (2.5-4.5)
[2020-07-04 07:51] LABS: Basophils % 0.7 % (0.1-2.0); Eosinophils % 6.7 % (0.1-12.0); Hematocrit 35.7 % (42.0-52.0); Lymphocytes % 17.4 % (10-50); Mean Corpuscular HGB Conc 33.9 g/dL (31.8-35.4); Mean Corpuscular Hemoglobin 30.9 pg (27.0-31.2); Mean Corpuscular Volume 91.2 fl (80-94); Mean Platelet Volume 8.4 fl (7.4-10.4); Monocytes % 3.9 % (1.7-9.3); Neutrophils # 0.7 K/mm3 (1.8-7.8); Neutrophils % 71.2 % (37.0-80.0); Platelet Count 224 K/mm3 (142-424); Red Blood Count 3.91 M/mm3 (4.60-6.20); Red Cell Distribution Width 13.3 % (11.5-17.5)
[2020-07-04 08:06] LABS: Hemoglobin 12.1 g/dL (14.1-18.0); MANUAL DIFFERENTIAL MANUAL DIFFERENTIAL (MANUAL DIFF)
--- NOTE | 2020-07-04 08:23 | HMH.HP ---
*Admission Date: 07/03/20 *Chief complaint: Chest pain/STEMI *History of present illness: Unfortunate 84-year-old white male with myocardial infarction in March, treated here with heart catheterization and single stent placement, has been on DAPT therapy since that time and has been doing fairly well until significant heartburn and weight loss and dysphagia prompted EGD in May 2020 which revealed adenocarcinoma of distal esophagus. 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 Since that time he has been extremely emotionally distressed and anxious. He had a return of similar chest pain yesterday, came to the emergency department, EKG changes were noted and patient was diagnosed with STEMI and taken to Drying Room Operator. Catheterization report below: ANGIOGRAPHIC RESULTS The left main artery Normal The left anterior descending artery Widely patent with mild 10% luminal irregularities The circumflex artery Is a dominant vessel and with a moderate sized ramus intermedius originating from the left main artery which has proximal mid vessel 10% stenoses. The circumflex artery itself is a large dominant vessel with mild 10% luminal irregularities The right coronary artery Is a nondominant vessel has a stent in the proximal segment widely patent free of in-stent restenosis or thrombosis. The mid right coronary artery has 40% stenosis while the distal segment has 40% stenosis. 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 Patient's cardiomyopathy is secondary to anxiety/stress. I would recommend patient be started on benzodiazepines either scheduled or as needed given his stage IV cancer diagnosis. There must be some interplay with the cancer in patient's anxiety which resulted in the stress myocardial infarction 2. Continue treatment with dual antiplatelet therapy given relatively recent stent 3. Supportive care 4. We will start with Xanax 0.25 1 to 2 mg p.o. every 6 hours as needed anxiety I discussed case with Dr. Mccall who recommended admission overnight and anxiety medication. In discussion with patient's this morning she notes that he has been extremely weak and has been unable to perform his ADLs, she wonders about possible placement for skilled care and doing some rehab over the next couple of weeks. [facility] History I have reviewed the patient's past medical history: Yes Medical History: Reports:: Anxiety, Cancer (Esophageal adenocarcinoma), Cardiomyopathy, Congestive Heart Failure, Coronary Artery Disease, Hypertension, Internal Pacemaker, Palpitations Denies:: Diabetes Mellitus Type 1, Diabetes Mellitus Type 2, MRSA, Seizures *Have you ever received a pneumonia vaccine?: Yes *Have you received a flu vaccine this season?: Yes Other Medical History: Reports: Arthritis, Cataracts, Hypothyroidism Laterality Cases: Bilateral: Other Other Surgeries: Yes: Cardiac Catheterization, Pacemaker, Other (TURP) Amputation: No Fractures: No - *Social History Last grade of school completed: 9th or 10th Smoking Status: Never smoker Alcohol Intake: never Substance Use Type: denies use *Occupational Status:: retired Housing: house Household Members: spouse *Travel in the last 8 weeks: None - Psychiatric History Pschychiatric History:: Reports:: Anxiety Family Hx:: Asthma, Hypertension, Stroke, Thyroid Disorder, Mental illness Review of Systems - Review of Systems Review of systems:: pertinent systems reviewed and negative unless documented below Global weakness noted. Chest pain is resolved. Denies respiratory issues
[2020-07-04 09:14] LABS: Eosinophils % 4 % (0-3); Lymphocytes % 18 % (10-50); Monocytes % 4 % (2-9); Neutrophils % 68 % (42-76); Platelet Estimate Normal; RBC Morphology Normal; Total Cells Counted 50
--- NOTE | 2020-07-04 11:27 | HMH.PHAINT ---
MED REC-PATIENT HAS SEVERAL MEDS ORDERED THROUGH CARDIOLOGY BUT ONCOLOGIST STOPPED MANY OF THEM AND PATIENT STOPPED TAKING SYMBICORT HE FELT IT WAS NOT WORKING FOR HIM. ONCOLOGIST STOPPED CARVEDILOL 3.125 MG BID, RANOLAZINE 500 MG BID, AND SPIRONOLACTONE 25 MG DAILY. PATIENT WAS SUPPOSED TO SWITCH FROM BRILINTA 90 MG BID TO PLAVIX 75 MG DAILY AFTER 1ST MONTH BUT NEVER STARTED THE PLAVIX AND STOPPED TAKING THE BRILINTA. THIS INFORMATION IS FROM PATIENT AND SPOUSE.
--- NOTE | 2020-07-04 11:30 | P.CONPHA_ITS ---
[facility] Pharmacy VTE Monitoring - Patient Demographics Admission date: 07/04/20 Report Date: 07/04/20 Time: 11:30 Allergies/Adverse Reactions: Patient Allergies No Known Drug Allergies [NO KNOWN DRUG ALLERGIES] Allergy (Unknown, Verified 05/20/20 14:26) Height: 1.83 m Weight: 73.255 kg Patient Problems: Current Active Problems NSTEMI (non-ST elevated myocardial infarction) (Acute) Esophageal cancer (Acute) Leukopenia (Acute) Chest pain (Acute) Cardiomyopathy (Acute) CAD (coronary artery disease) (Acute) - VTE Risk Labs: VTE Related Lab Results Hgb 12.1 g/dL (14.1-18.0) L D 07/04/20 07:12 Hct 35.7 % (42.0-52.0) L 07/04/20 07:12 Plt Count 224 K/mm3 (142-424) 07/04/20 07:12 BUN 19 mg/dl (9-20) 07/04/20 07:12 Creatinine 1.10 mg/dl (0.66-1.25) 07/04/20 07:12 Estimated Creat Clear 54 mL/min (50-200) 07/04/20 07:12 - Prophylaxis Types of VTE Prophylaxis: TEDS Knee High (PLACED ORDER FOR DIDI HOSE IF NEEDED. ICD ORDER ALREADY ENTERED.), IPCS Knee High Location of Applied Device: Not Applicable
--- NOTE | 2020-07-04 16:14 | PC.NURSE ---
no acute changes since previous nurse's bio, pt is AxOx4, remains on 1L NC with O2 sats at 94%, no complaints of pain, SOA or chest pain this part of shift, dressing in place to right radial cath site, C/D/I, NSR on telemetry
[2020-07-05] VITALS: BP 124/69; PULSE 80; PULSE 86; RESP 17; TEMP 36.8; O2SAT 90
[2020-07-05 04:00] VITALS: BP 114/58; PULSE 80; PULSE 82; RESP 17; TEMP 36.7; O2SAT 93
[2020-07-05 05:00] VITALS: BMI 21.7
[2020-07-05 06:38] LABS: Basophils % 0.3 % (0.1-2.0); Eosinophils # 0.1 K/mm3 (0.0-0.4); Eosinophils % 5.9 % (0.1-12.0); Hematocrit 35.2 % (42.0-52.0); Hemoglobin 11.6 g/dL (14.1-18.0); Lymphocytes # 0.2 K/mm3 (0.7-4.5); Lymphocytes % 12.3 % (10-50); Mean Corpuscular HGB Conc 33.1 g/dL (31.8-35.4); Mean Corpuscular Hemoglobin 30.5 pg (27.0-31.2); Mean Corpuscular Volume 92.3 fl (80-94); Monocytes # 0.1 K/mm3 (0.1-1.0); Monocytes % 6.4 % (1.7-9.3); Neutrophils # 1.1 K/mm3 (1.8-7.8); Neutrophils % 75.3 % (37.0-80.0); Platelet Count 250 K/mm3 (142-424); Red Blood Count 3.81 M/mm3 (4.60-6.20); Red Cell Distribution Width 13.3 % (11.5-17.5); White Blood Count 1.5 K/mm3 (4.8-10.8)
[2020-07-05 06:41] LABS: Chloride 104 mmol/L (98-107)
[2020-07-05 06:42] LABS: Sodium 129 mmol/L (136-145)
[2020-07-05 06:44] LABS: Blood Urea Nitrogen 19 mg/dl (9-20); Creatinine Clearance Estimated 59 mL/min (50-200); Estimated Glomerular Filt Rate 72 ml/min (>60); GFR (African American) 87 ML/MIN (>60)
[2020-07-05 06:45] LABS: Calcium 8.1 mg/dl (8.4-10.2); Carbon Dioxide 21 mmol/L (22.0-30.0); Glucose 97 mg/dl (74-100)
--- NOTE | 2020-07-05 07:35 | HMH.ACPN2 ---
Internal Medicine - PN: Subj *Date: 07/05/20 *Time: 07:35 Interval history: No acute events overnight. Patient denies chest pain. He continues to have weakness with some difficulty getting up out of bed Exam Vital signs and Labs for Last 24 Hours: Temp Pulse Resp BP Pulse Ox 98.0 F 82 17 114/58 L 93 L 07/05/20 04:00 07/05/20 04:00 07/05/20 04:00 07/05/20 04:00 07/05/20 04:00 Laboratory Results - last 24 hr 07/04/20 07:12: WBC 1.0 L*, RBC 3.91 L, Hgb 12.1 L D, Hct 35.7 L, MCV 91.2, MCH 30.9, MCHC 33.9, RDW 13.3, Plt Count 224, MPV 8.4, Neut % (Auto) 71.2, Lymph % (Auto) 17.4, [place] % (Auto) 3.9, Eos % (Auto) 6.7, Baso % (Auto) 0.7, Neut # (Auto) 0.7 L*, Lymph # (Auto) 0.2 L, [place] # (Auto) 0.0 L, Eos # (Auto) 0.1, Baso # (Auto) 0.0, Total Counted 50, Neutrophils % (Manual) 68, Band Neutrophils % 6.0, Lymphocytes % (Manual) 18, Monocytes % (Manual) 4, Eosinophils % (Manual) 4 H, Platelet Estimate Normal, RBC Morphology Normal 07/04/20 07:12: Sodium 133 L, Potassium 4.8, Chloride 104, Carbon Dioxide 25 D, Anion Gap 8.8, BUN 19, Creatinine 1.10, Estimated Creat Clear 54, Estimated GFR 64, Est GFR ( Amer) 78, Glucose 98 D, Calcium 8.7, Phosphorus 3.1, Magnesium 1.9 07/05/20 05:45: WBC 1.5 L* D, RBC 3.81 L, Hgb 11.6 L, Hct 35.2 L, MCV 92.3, MCH 30.5, MCHC 33.1, RDW 13.3, Plt Count 250, MPV 8.0, Neut % (Auto) 75.3, Lymph % (Auto) 12.3, [place] % (Auto) 6.4, Eos % (Auto) 5.9, Baso % (Auto) 0.3, Neut # (Auto) 1.1 L, Lymph # (Auto) 0.2 L, [place] # (Auto) 0.1, Eos # (Auto) 0.1, Baso # (Auto) 0.0 07/05/20 05:45: Sodium 129 L, Potassium 4.0, Chloride 104, Carbon Dioxide 21 L, Anion Gap 8.0, BUN 19, Creatinine 1.00, Estimated Creat Clear 59, Estimated GFR 72, Est GFR ( Amer) 87, Glucose 97, Calcium 8.1 L I & O for Last 24 hours: Intake & Output 07/02/20 07/03/20 07/04/20 07/05/20 11:59 11:59 11:59 11:59 Intake Total 404 / 404 720 / 720 Output Total 300 / 300 Balance 104 / 104 720 / 720 Weight 161 lb 7.994 oz 160 lb 2 oz - Constitutional no acute distress - *Routine Respiratory Exam Present: CTA bilaterally - *Routine Cardiovascular Exam Present: RRR Assessment and Plan (1) NSTEMI (non-ST elevated myocardial infarction) Status: Acute Category: Medical Code(s): I21.4 - Non-ST elevation (NSTEMI) myocardial infarction (2) Leukopenia Status: Acute Qualifiers: Leukopenia type: unspecified Qualified Code(s): D72.819 - Decreased white blood cell count, unspecified Category: Medical Code(s): D72.819 - Decreased white blood cell count, unspecified (3) CAD (coronary artery disease) Status: Acute Qualifiers: Coronary Disease-Associated Artery/Lesion type: [place] artery [place] vs. transplanted heart: [place] heart Associated angina: without angina Qualified Code(s): I25.10 - Atherosclerotic heart disease of [place] coronary artery without angina pectoris Category: Medical Code(s): I25.10 - Atherosclerotic heart disease of [place] coronary artery without angina pectoris (4) Cardiomyopathy Status: Acute Qualifiers: Cardiomyopathy type: unspecified Qualified Code(s): I42.9 - Cardiomyopathy, unspecified Category: Medical Code(s): I42.9 - Cardiomyopathy, unspecified (5) Esophageal cancer Status: Acute Qualifiers: Malignant neoplasm of esophagus location: unspecified location Qualified Code(s): C15.9 - Malignant neoplasm of esophagus, unspecified Category: Medical Code(s): C15.9 - Malignant neoplasm of esophagus, unspecified - Assessment and plan all Dx Assessment and Plan for all problems:: PT and OT eval today for possible SNF placement. This would interrupt patient's treatment plan for his esophageal cancer.
[2020-07-05 08:00] VITALS: BP 102/59; PULSE 85; RESP 18; TEMP 36.5; O2SAT 92
[2020-07-05 08:20] VITALS: PULSE 85; RESP 18; O2SAT 92
--- NOTE | 2020-07-05 08:37 | SW/DCPLANNER ---
Addendum entered by Karen Sutherland 07/05/20 13:19: AFTER SPEAKING WITH HOSPICE, THE PATIENT HAS ELECTED TO WAIT UNTIL HE SPEAKS WITH DR GOTTI, ONCOLOGIST WHO IS GOING TO CALL PATIENT THIS EVENING WHEN HE IS DONE WITH CLINIC AND GIVE HIM HIS OPTIONS AND HOSPICE WILL FOLLOW UP IN THE MORNING AND IF PATIENT ELECTS TO GO WITH THEIR SERVICES HE WILL ADMIT TMRW...DISCHARGE TODAY... Original Note: SPOKE WITH AND PATIENT THIS AM REGARDING DISCHARGE PLANS: BOTH PATIENT AND HAVE AGREED NO MORE CHEMOTHERAPY AND PATIENT WISHES TO GO FOR PALLIATIVE CARE... I HAVE SENT REFERRAL TO HOSPICE THIS MORNING FOR SOMEONE TO COME UP AND SEE PATIENT HERE AND TO ASSIST WITH GETTING HIM SET UP TO GO HOME LATER IN THE DAY...WILL NOTIFY DR SHERIDAN OF THE DECISION THAT FAMILY HAS MADE...
--- NOTE | 2020-07-05 09:00 | HMH.CNCARD ---
History of Present Illness Consult date: 07/05/20 Requesting physician: Adiel Davis Consult reason: chest pain Chief complaint: chest pain History of present illness: This is an 84-year-old white gentleman who presented to the emergency department with complaints of chest pain. 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 He came into the emergency department with complaints of chest pain similar to the chest pain that he had with his previous heart attack in March. He states that this was a midsternal pressure sensation that radiated to his left arm. It was associated with shortness of breath, diaphoresis and some mild nausea. The pain did get severe. He states that this was occurring with rest and exertion. Nothing worsened or improved his chest pain. The patient was found to have a STEMI and went directly to the [facility] and underwent left cardiac catheterization which showed: The left main artery Normal The left anterior descending artery Widely patent with mild 10% luminal irregularities The circumflex artery Is a dominant vessel and with a moderate sized ramus intermedius originating from the left main artery which has proximal mid vessel 10% stenoses. The circumflex artery itself is a large dominant vessel with mild 10% luminal irregularities The right coronary artery Is a nondominant vessel has a stent in the proximal segment widely patent free of in-stent restenosis or thrombosis. The mid right coronary artery has 40% stenosis while the distal segment has 40% stenosis. 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 Patient's cardiomyopathy is secondary to anxiety/stress. I would recommend patient be started on benzodiazepines either scheduled or as needed given his stage IV cancer diagnosis. There must be some interplay with the cancer in patient's anxiety which resulted in the stress myocardial infarction 2. Continue treatment with dual antiplatelet therapy given relatively recent stent 3. Supportive care 4. We will start with Xanax 0.25 1 to 2 mg p.o. every 6 hours as needed anxiety This morning the patient states that his chest pain and pressure has resolved. He states that he is still mildly short of breath with exertion at times. He states that this is unchanged. 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 Dr. Mccall has recommended that the patient be treated with benzodiazepines. His family doctor also agrees with this and has started the patient on anxiety medications. He and his family have decided on hospice care at this time due to his poor prognosis for his stage IV adenocarcinoma. [facility] History I have reviewed the patient's past medical history: Yes Medical History: Reports:: Anxiety, Cancer (Esophageal adenocarcinoma), Cardiomyopathy, Congestive Heart Failure, Coronary Artery Disease, Hypertension, Internal Pacemaker, Palpitations Denies:: Diabetes Mellitus Type 1, Diabetes Mellitus Type 2, MRSA, Seizures *Have you ever received a pneumonia vaccine?: Yes *Have you received a flu vaccine this season?: Yes Other Medical History: Reports: Arthritis, Cataracts, Hypothyroidism Laterality Cases: Bilateral: Other Other Surgeries: Yes: Cardiac Catheterization, Pacemaker, Other (TURP) Amputation: No Fractures: No - *Social History Last grade of school completed: 9th or 10th Smoking Status: Never smoker Alcohol Intake: never Substance Use Type: denies use *O
--- NOTE | 2020-07-05 09:08 | HMH.OTEV ---
OT Inpatient Evaluation Rehab OT IP Evaluation Start: 07/04/20 08:28 Freq: ONCE Status: Complete Protocol: Document 07/05/20 08:59 ELEAZAREMMANUEL (Rec: 07/05/20 09:05 DANYELL [id number]) Rehab OT IP Assessment Subjective History *Admission Date: 07/03/20 *Chief complaint: Chest pain/ STEMI *History of present illness: Unfortunate 84-year-old white male with myocardial infarction in March, treated here with heart catheterization and single stent placement, has been on DAPT therapy since that time and has been doing fairly well until significant heartburn and weight loss and dysphagia prompted EGD in May 2020 which revealed adenocarcinoma of distal esophagus. Given his age and comorbidity he was referred for oncology therapy , he was found to have stage IV adenocarcinoma at that point. Since that time he has been extremely emotionally distressed and anxious. He had a return of similar chest pain yesterday, came to the emergency department, EKG changes were noted and patient was diagnosed with STEMI and taken to [facility]. Catheterization report below: ANGIOGRAPHIC RESULTS The left main artery Normal The left anterior descending artery Widely patent with mild 10% luminal irregularities The circumflex artery Is a dominant vessel and with a moderate sized ramus intermedius originating from the left main artery which has proximal mid vessel 10% stenoses. The circumflex artery itself is a large dominant vessel with
--- NOTE | 2020-07-05 09:20 | HMH.PTEV ---
Physical Therapy Evaluation Rehab PT IP Evaluation Start: 07/04/20 08:28 Freq: ONCE Status: Active Protocol: Document 07/05/20 09:00 PHOMADHAVI (Rec: 07/05/20 09:19 PHORNE [id number]) Subjective/History History History 84 yowm adm to [facility] with NSTEMI , has stage IV esophageal cancer at baseline with general weakness. He and his SO report they have decided to go home with hospice care. Subjective Subjective He reports feeling ok this am considering his situation. Rehab PT IP Eval Objective Appearance Patient Behavior Appropriate Patient Orientation Person,Place,Time Difficulty following instructions none Speech Pattern Clear Ambulation Patient Able to Ambulate Yes Ambulation Observation IP General Gait Pattern Observation No Deviations/Normal Ambulation Distance (feet) 30 Ambulation Assistive Device None Ambulation Ability Independent Balance Ability to Arise Able, uses arms to help Sitting Balance Steady, safe Standing Balance Steady, wide stance Dynamic Sitting Balance Ability Normal Dynamic Standing Balance Ability Normal Transfers Bed Transfer Ability Independent Chair Transfer Ability Independent Sit to Stand Bed Transfer Ability Independent Sit to Stand Chair Transfer Ability Independent ROM RUE PT ROM Status ABN Abnormal ROM Comment shld flex/abd 0-90 due to OA. Rehab PT IP prob,goals,plan Problems Date of Evaluation: 07/05/20 Discharge Plan PT Discharge Plan Pt is currently independent with all bed mobility, transfes, and ambulation and has no inpatient therapy needs at this time. He is appropriate to return home once medically stable. BSC and tub bench would be beneficial to maintain some of his independence with care at home . G -code Required No Eval Complexity Eval Charge Codes 32187 - Moderate Complexity PHYSICIAN CERTIFICATION: I certify the specified therapy services for [place] are required, authorized, and reviewed every 30 days.
--- NOTE | 2020-07-05 10:07 | PC.NURSE ---
per protocol patient needed to be reswabbed for covid. when lab went in to obtain this patient refused to have it done
[2020-07-05 12:00] VITALS: BP 117/62; PULSE 83; RESP 18; TEMP 36.7; O2SAT 92
--- NOTE | 2020-07-06 06:33 | HMH.DCSUM ---
General - General Admission date:: 07/03/20 Discharge date: 07/06/20 HPI HPI: Unfortunate 84-year-old white male with myocardial infarction in March, treated here with heart catheterization and single stent placement, has been on DAPT therapy since that time and has been doing fairly well until significant heartburn and weight loss and dysphagia prompted EGD in May 2020 which revealed adenocarcinoma of distal esophagus. 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 Since that time he has been extremely emotionally distressed and anxious. He had a return of similar chest pain yesterday, came to the emergency department, EKG changes were noted and patient was diagnosed with STEMI and taken to [facility]. Catheterization report below: ANGIOGRAPHIC RESULTS The left main artery Normal The left anterior descending artery Widely patent with mild 10% luminal irregularities The circumflex artery Is a dominant vessel and with a moderate sized ramus intermedius originating from the left main artery which has proximal mid vessel 10% stenoses. The circumflex artery itself is a large dominant vessel with mild 10% luminal irregularities The right coronary artery Is a nondominant vessel has a stent in the proximal segment widely patent free of in-stent restenosis or thrombosis. The mid right coronary artery has 40% stenosis while the distal segment has 40% stenosis. 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 Patient's cardiomyopathy is secondary to anxiety/stress. I would recommend patient be started on benzodiazepines either scheduled or as needed given his stage IV cancer diagnosis. There must be some interplay with the cancer in patient's anxiety which resulted in the stress myocardial infarction 2. Continue treatment with dual antiplatelet therapy given relatively recent stent 3. Supportive care 4. We will start with Xanax 0.25 1 to 2 mg p.o. every 6 hours as needed anxiety I discussed case with Dr. Mccall who recommended admission overnight and anxiety medication. In discussion with patient's this morning she notes that he has been extremely weak and has been unable to perform his ADLs, she wonders about possible placement for skilled care and doing some rehab over the next couple of weeks. Hospital Course Hospital Course: Patient was admitted and taken to the [facility]. No new obstructive coronary disease was identified. He was felt the stress of patient's cancer diagnosis and his anxiety was the source of his chest pain and subsequent non-STEMI. Scheduled benzos were recommended. Patient was started on scheduled Xanax. Discussion was had with the patient regarding future course of treatment. Ultimately the patient decided on hospice care. Hospice evaluation was arranged on Sunday the and patient was discharged home. Objective Vital signs: Temp Pulse Resp BP Pulse Ox 98.1 F 83 18 117/62 92 L 07/05/20 12:00 07/05/20 12:00 07/05/20 12:00 07/05/20 12:00 07/05/20 12:00 Results Labs on day of discharge: Labs from last 24 hours 07/05/20 07/05/20 05:45 05:45 WBC 1.5 L* D RBC 3.81 L Hgb 11.6 L Hct 35.2 L MCV 92.3 MCH 30.5 MCHC 33.1 RDW 13.3 Plt Count 250 MPV 8.0 Neut % (Auto) 75.3 Lymph % (Auto) 12.3 [place] % (Auto) 6.4 Eos % (Auto) 5.9 Baso % (Auto) 0.3 Neut # (Auto) 1.1 L Lymph # (Auto) 0.2 L [place] # (Auto) 0.1 Eos # (Auto) 0.1 Baso # (Auto) 0.0 Sodium 129 L Potassium 4.0 Chloride 104 Carbon Dioxide
== END 2020-07-05 13:15 | disposition home or self-care (01) | DRG 281 ==
LOC: ER 18:40 → SDC 18:41 → 2ND 07-04 08:07
PROVIDERS: Internal Medicine; Admitting Provider Internal Medicine Adolescent Medicine; Emergency Provider Family Medicine; PCP Family Medicine; Visit Provider Family Medicine
PROC: 4A023N7 Measurement of Cardiac Sampling and Pressure, Left Heart, Percutaneous Approach (ICD-10-PCS; principal; 2020-07-03 18:20)
DX: I21.4 Non-ST elevation (NSTEMI) myocardial infarction (principal); I51.81 Takotsubo syndrome; C15.5 Malignant neoplasm of lower third of esophagus; E03.9 Hypothyroidism, unspecified; I11.0 Hypertensive heart disease with heart failure; I50.9 Heart failure, unspecified; Z95.5 Presence of coronary angioplasty implant and graft; Z95.0 Presence of cardiac pacemaker; I25.2 Old myocardial infarction
CPT/HCPCS: 36415; 71045; 73030; 80048; 80053; 81001; 83605; 83735; 84100; 84145; 84484; 85007; 85025; 87040; 87581; 87633; 87798; 93005; 93458; 94760; 96365; 96374; 96375; 96376; 97162; 97165; 99152; 99283; 99284; C1725; C1769; J1644; J2405; Q9967

== ENCOUNTER 2020-08-30 13:11 | Observation (INO) | payer MEDICARE, OTHER, SELFPAY ==
[2020-08-30] VITALS (12 sets, daily range): BP systolic 117–153; BP diastolic 52–84; PULSE 66–80; RESP 16–20; TEMP 36.5–36.7; O2SAT 92–96; BMI 21.9; BMI 22.0
--- NOTE | 2020-08-30 13:09 | ECG_ITS ---
APPROVED REPORT Exam: Resting ECG HR:74 bpm ECG Measurements Heart Rate 74 AXES TX 198 P 68 QRSd 150 QRS -10 QT 418 T 196 QTc 463 Conclusion Normal sinus rhythm Left bundle branch block Abnormal ECG Electronically signed by : Adiel Reyes, 09/01/2020 17:40:35
--- NOTE | 2020-08-30 13:16 | XR_ITS ---
PROCEDURE: XR CHEST PORTABLE CLINICAL HISTORY: CHEST PAIN COMPARISON: CR XR CHEST 2V from 04/11/[address] CHEST W CON from 05/10/2020 CR XR CHEST PORTABLE from 07/01/2020 CR XR CHEST PORTABLE from 07/03/2020 FINDINGS: Bipolar pacemaker is present from left subclavian approach with right atrial right ventricular leads. Normal heart size. There are atelectatic changes in the left lower lobe. No acute bony findings. IMPRESSION: Left lower lobe atelectasis Dictated by: Jose Alberto Sidhu MD 08/30/2020 15:46 Jose Alberto Sidhu MD in [place] 08/30/2020 15:46
--- NOTE | 2020-08-30 13:17 | HMH.EDGENADL ---
ED Disposition Clinical Impression: Chest pain Qualifiers: Chest pain type: other chest pain Qualified Code(s): R07.89 - Other chest pain Disposition: Admitted as Observation Condition on Discharge: Good Referrals: Provider,[place], [Referring] - Time of Disposition: 14:00 - Critical Care Critical Care Time: No Attestation: On , the high probability of a clinically significant, sudden or life threatening deterioration of the following system(s) required my full and direct attention, intervention and personal management. The time I documented below is in addition to time spent performing reported procedures but includes the following listed in this critical care notation. Medical Decision Making - Medical Records Medical records reviewed: Yes: I reviewed the patient's medical records. - Lev Inquiry Pt receiving controlled substance: No Vital Signs: 08/30/20 13:11 Temperature 98.1 F Temperature Source Oral Pulse Rate [Right Radial] 72 Respiratory Rate 18 Blood Pressure [Right Arm] 153/75 H Blood Pressure Mean [Right Arm] 101 Blood Pressure Source [Right Arm] Automatic Cuff Blood Pressure Position [Right Arm] Sitting 02 Sat by Pulse Oximetry 94 L Oxygen Delivery Method Room Air - Lab Data Lab results reviewed: Yes: I reviewed the patient's lab results. Lab Results 08/30/20 13:17: WBC 4.2 L, RBC 3.60 L, Hgb 10.9 L, Hct 32.6 L, MCV 90.5, MCH 30.3, MCHC 33.5, RDW 15.2, Plt Count 228, MPV 7.5, Neut % (Auto) 78.6, Lymph % (Auto) 13.6, [place] % (Auto) 4.6, Eos % (Auto) 2.9, Baso % (Auto) 0.3, Neut # (Auto) 3.3, Lymph # (Auto) 0.6 L, [place] # (Auto) 0.2, Eos # (Auto) 0.1, Baso # (Auto) 0.0 08/30/20 13:17: Sodium 140, Potassium 4.0, Chloride 106, Carbon Dioxide 28, Anion Gap 10.0, BUN 18, Creatinine 0.90, Estimated Creat Clear 59, Estimated GFR 81, Est GFR ( Amer) 98, Glucose 95, Calcium 8.6, Troponin I < 0.01 Result diagrams: 08/30/20 13:17 08/30/20 13:17 Orders (Tests/Meds): ED MEDICATIONS Discontinued Medications Generic Name Dose Route Start Last Admin Trade Name Cristi PRN Reason Stop Dose Admin Aspirin 243 mg 08/30/20 13:16 08/30/20 13:17 Aspirin 81mg Chewable Tablet PO 08/30/20 13:17 243 mg ONCE ONE Administration ORDERS Category Date Time Status XR chest portable Stat Exams 08/30/20 13:16 Taken Rapid PCR Covid and Flu A/B Stat Lab 08/30/20 14:15 Received Troponin I Q3H Lab 08/30/20 16:30 Ordered Troponin I Q3H Lab 08/30/20 19:30 Ordered - Radiology Data #1 Image(s): Chest Image Reviewed: Yes I reviewed the patient's radiology image Preliminary Findings: Normal/NAD - ECG Data Tracing #1 Normal sinus rhythm, 74 bpm, left bundle branch block, no other ectopy, normal intervals, no ST elevation or depression. ECG initial impression date: 08/30/20 ECG initial impression time: 13:11 - LORRAINE Score for Non-Stemi Age of Patient: 80-89 years old Heart Rate: 70-89 bpm Systolic Blood Pressure: 140-159 mmHg Serum Creatinine: 0.80-1.19 mg/dl CHF [place] Class: I-No CHF Other Risk Factors: None Non-Stemi Risk Score: 131 Medical Decision Narrative: 84yo M evaluated for chest pain. Patient has significant history for cardiac disease and received a stent less than a year ago. His HPI is concerning for possible further cardiac disease. His Lorraine score is intermediate. His work-up is benign so far but will discuss case with whomever is covering for Dr. Davis and recommend admission. General Adult HPI - General Stated complaint: chest pain Time Seen by Provider: 08/30/20 13:17 Mode of Arrival: Ambulatory Source of Information: Patient - History of Present Illness HPI narrative: 84yo M past medical history significant for coronary artery disease status post coronary stent less than 1 year ago, esophageal cancer, history of hypertension presents emergency department secondary to chest pain. Symptoms have been ongoing for 3 to 4 days and progress
[2020-08-30 13:27] LABS: Basophils % 0.3 % (0.1-2.0); Eosinophils # 0.1 K/mm3 (0.0-0.4); Eosinophils % 2.9 % (0.1-12.0); Hematocrit 32.6 % (42.0-52.0); Hemoglobin 10.9 g/dL (14.1-18.0); Lymphocytes # 0.6 K/mm3 (0.7-4.5); Lymphocytes % 13.6 % (10-50); Mean Corpuscular HGB Conc 33.5 g/dL (31.8-35.4); Mean Corpuscular Hemoglobin 30.3 pg (27.0-31.2); Mean Corpuscular Volume 90.5 fl (80-94); Mean Platelet Volume 7.5 fl (7.4-10.4); Monocytes # 0.2 K/mm3 (0.1-1.0); Monocytes % 4.6 % (1.7-9.3); Neutrophils # 3.3 K/mm3 (1.8-7.8); Neutrophils % 78.6 % (37.0-80.0); Platelet Count 228 K/mm3 (142-424); Red Cell Distribution Width 15.2 % (11.5-17.5); White Blood Count 4.2 K/mm3 (4.8-10.8)
[2020-08-30 13:33] LABS: Chloride 106 mmol/L (98-107)
[2020-08-30 13:34] LABS: Sodium 140 mmol/L (136-145)
[2020-08-30 13:37] LABS: Blood Urea Nitrogen 18 mg/dl (9-20); Calcium 8.6 mg/dl (8.4-10.2); Carbon Dioxide 28 mmol/L (22.0-30.0); Creatinine Clearance Estimated 59 mL/min (50-200); Estimated Glomerular Filt Rate 81 ml/min (>60); GFR (African American) 98 ML/MIN (>60); Glucose 95 mg/dl (74-100)
[2020-08-30 13:50] LABS: Troponin I < 0.01 ng/ml (0.00-0.034)
[2020-08-30 14:27] LABS: Coronavirus 19, PCR Not Detected (NotDetected); Influenza A, PCR Not Detected (NotDetected); Influenza B, PCR Not Detected (NotDetected)
--- NOTE | 2020-08-30 14:59 | PC.NURSE ---
notified care management of admission
--- NOTE | 2020-08-30 15:26 | HMH.PHAVTE ---
[facility] Pharmacy VTE Monitoring - Patient Demographics Admission date: 08/30/20 Report Date: 08/30/20 Time: 15:26 Allergies/Adverse Reactions: Patient Allergies No Known Drug Allergies [NO KNOWN DRUG ALLERGIES] Allergy (Unknown, Verified 05/20/20 14:26) Height: 1.83 m Weight: 73.482 kg Patient Problems: Current Active Problems Chest pain (Acute) - VTE Risk Labs: VTE Related Lab Results Hgb 10.9 g/dL (14.1-18.0) L 08/30/20 13:17 Hct 32.6 % (42.0-52.0) L 08/30/20 13:17 Plt Count 228 K/mm3 (142-424) 08/30/20 13:17 BUN 18 mg/dl (9-20) 08/30/20 13:17 Creatinine 0.90 mg/dl (0.66-1.25) 08/30/20 13:17 Estimated Creat Clear 59 mL/min (50-200) 08/30/20 13:17 - Prophylaxis Types of VTE Prophylaxis: TEDS Knee High, Pharmacological Location of Applied Device: Bilateral Lower Extremeties (DIDI HOSE AND LOVENOX)
--- NOTE | 2020-08-30 15:51 | PC.NURSE ---
report called to Vidhi Griffith RN on second floor at this time
[2020-08-30 17:28] LABS: Troponin I < 0.01 ng/ml (0.00-0.034)
[2020-08-30 20:11] LABS: Troponin I < 0.01 ng/ml (0.00-0.034)
--- NOTE | 2020-08-30 20:47 | PC.NURSE ---
trash pulled and snack passed at this time
[2020-08-31] VITALS: BP 124/54; PULSE 77; RESP 16; TEMP 36.8; O2SAT 93
[2020-08-31 04:00] VITALS: BP 166/67; PULSE 79; PULSE 80; RESP 20; TEMP 36.8; O2SAT 95
--- NOTE | 2020-08-31 04:05 | PC.NURSE ---
shift summary pt is alert and oriented X4. lung sounds are clear with sats maintained 90% or above on room air. pt voids per bedside urinal urine is clear and yellow in color. pt woke up once during this shift and seemed somewhat anxious, pt was given his ativan which relieved his symptoms and has been resting comfortably since. pt denies any pain, nausea, vomiting, or diarrhea. pt has had no acute changes will continue to monitor.
[2020-08-31 05:17] VITALS: BMI 21.5
--- NOTE | 2020-08-31 05:28 | PC.NURSE ---
ice water passed and trash pulled at this time
[2020-08-31 06:58] LABS: Basophils % 0.2 % (0.1-2.0); Eosinophils # 0.1 K/mm3 (0.0-0.4); Eosinophils % 2.1 % (0.1-12.0); Hematocrit 30.1 % (42.0-52.0); Hemoglobin 10.2 g/dL (14.1-18.0); Lymphocytes # 0.4 K/mm3 (0.7-4.5); Lymphocytes % 10.2 % (10-50); Mean Corpuscular HGB Conc 33.9 g/dL (31.8-35.4); Mean Corpuscular Hemoglobin 30.6 pg (27.0-31.2); Mean Corpuscular Volume 90.4 fl (80-94); Mean Platelet Volume 7.2 fl (7.4-10.4); Monocytes # 0.2 K/mm3 (0.1-1.0); Monocytes % 4.4 % (1.7-9.3); Neutrophils # 3.5 K/mm3 (1.8-7.8); Neutrophils % 83.1 % (37.0-80.0); Platelet Count 202 K/mm3 (142-424); Red Blood Count 3.33 M/mm3 (4.60-6.20); Red Cell Distribution Width 15.3 % (11.5-17.5); White Blood Count 4.2 K/mm3 (4.8-10.8)
[2020-08-31 07:03] LABS: Chloride 103 mmol/L (98-107); Potassium 4.1 mmoL/L (3.5-5.1); Sodium 136 mmol/L (136-145)
[2020-08-31 07:06] LABS: Anion Gap 10.1 mEq/L (5-15); Blood Urea Nitrogen 15 mg/dl (9-20); Carbon Dioxide 27 mmol/L (22.0-30.0); Creatinine Clearance Estimated 58 mL/min (50-200); Estimated Glomerular Filt Rate 81 ml/min (>60); GFR (African American) 98 ML/MIN (>60)
[2020-08-31 07:07] LABS: Calcium 8.5 mg/dl (8.4-10.2); Glucose 96 mg/dl (74-100)
--- NOTE | 2020-08-31 07:52 | HMH.HPDC ---
General - General Admission date:: 08/30/20 Discharge date: 08/31/20 *Admission Date: 08/30/20 *Chief complaint: Chest pain and palpitations *History of present illness: 84-year-old male with stage IV esophageal cancer, history of coronary artery disease, and history of bradycardia arrhythmia requiring pacemaker presented to the emergency department with complaint of malaise and left pectoral discomfort with a sensation of skipped beats whenever he would lay supine. Patient has a left bundle branch block on his EKG. Decision was made to admit the patient for rule out of [place] with serial troponins and telemetry monitoring. [facility] History I have reviewed the patient's past medical history: Yes Medical History: Reports:: Anxiety, Arrhythmia, Cancer (esophagus), Cardiomyopathy, Congestive Heart Failure, Coronary Artery Disease, Hypertension, Internal Pacemaker, Palpitations Denies:: Diabetes Mellitus Type 1, Diabetes Mellitus Type 2, MRSA, Seizures *Have you ever received a pneumonia vaccine?: Yes *Have you received a flu vaccine this season?: Yes Other Medical History: Reports: Arthritis, Cataracts, Hypothyroidism Laterality Cases: Bilateral: Other Other Surgeries: Yes: Cardiac Catheterization, Pacemaker, Other (TURP) Amputation: No Fractures: No - *Social History Last grade of school completed: High school graduate Smoking Status: Never smoker Alcohol Intake: never Substance Use Type: denies use *Occupational Status:: retired Housing: house Household Members: spouse *Travel in the last 8 weeks: None - Psychiatric History Pschychiatric History:: Reports:: Anxiety Family Hx:: Asthma, Hypertension, Stroke, Thyroid Disorder, Mental illness Review of Systems - Constitutional Denies body ache(s) - Eyes Denies blurry vision - ENT Denies abnormal hearing - *Cardiovascular Reports chest pain - *Respiratory Denies change in phlegm color, Denies chest congestion, Denies cough - *Gastrointestinal Denies abdominal pain, Denies belching - *Genitourinary Denies difficulty urinating - *Musculoskeletal Denies abnormal walking - Integumentary/Breasts Reports hair loss (From chemotherapy) - *Neurologic Denies abnormal walking Exam Vital signs and Labs for Last 24 Hours: Temp Pulse Resp BP Pulse Ox 98.3 F 79 20 166/67 H 95 08/31/20 04:00 08/31/20 04:00 08/31/20 04:00 08/31/20 04:00 08/31/20 04:00 Laboratory Results - last 24 hr 08/30/20 13:17: WBC 4.2 L, RBC 3.60 L, Hgb 10.9 L, Hct 32.6 L, MCV 90.5, MCH 30.3, MCHC 33.5, RDW 15.2, Plt Count 228, MPV 7.5, Neut % (Auto) 78.6, Lymph % (Auto) 13.6, [place] % (Auto) 4.6, Eos % (Auto) 2.9, Baso % (Auto) 0.3, Neut # (Auto) 3.3, Lymph # (Auto) 0.6 L, [place] # (Auto) 0.2, Eos # (Auto) 0.1, Baso # (Auto) 0.0 08/30/20 13:17: Sodium 140, Potassium 4.0, Chloride 106, Carbon Dioxide 28, Anion Gap 10.0, BUN 18, Creatinine 0.90, Estimated Creat Clear 59, Estimated GFR 81, Est GFR ( Amer) 98, Glucose 95, Calcium 8.6, Troponin I < 0.01 08/30/20 14:15: SARS-CoV-2 (PCR) Not detected, Influenza A Untype (PCR) Not detected, Influenza Type B (PCR) Not detected 08/30/20 16:45: Troponin I < 0.01 08/30/20 19:28: Troponin I < 0.01 08/31/20 06:40: WBC 4.2 L, RBC 3.33 L, Hgb 10.2 L, Hct 30.1 L, MCV 90.4, MCH 30.6, MCHC 33.9, RDW 15.3, Plt Count 202, MPV 7.2 L, Neut % (Auto) 83.1 H, Lymph % (Auto) 10.2, [place] % (Auto) 4.4, Eos % (Auto) 2.1, Baso % (Auto) 0.2, Neut # (Auto) 3.5, Lymph # (Auto) 0.4 L, [place] # (Auto) 0.2, Eos # (Auto) 0.1, Baso # (Auto) 0.0 08/31/20 06:40: Sodium 136, Potassium 4.1, Chloride 103, Carbon Dioxide 27, Anion Gap 10.1, BUN 15, Creatinine 0.90, Estimated Creat Clear 58, Estimated GFR 81, Est GFR ( Amer) 98, Glucose 96, Calcium 8.5 I & O for Last 24 hours: Intake & Output 08/28/20 08/29/20 08/30/20 08/31/20 11:59 11:59 11:59 11:59 Intake Total 240 / 240 Balance 240 / 240 Weight 159 lb 1 oz - Constitutional no acute distress - *R
[2020-08-31 07:53] VITALS: BP 116/60; PULSE 82; RESP 17; TEMP 36.6; O2SAT 96
[2020-08-31 08:00] VITALS: O2SAT 96
--- NOTE | 2020-08-31 09:00 | PC.NURSE ---
IV removed from LAC. Pt. tolerated well, 2x2 [address]. Nurse instructed to remove coban after 20 minutes and hold pressure if site begins to bleed. Pt. v/u.
--- NOTE | 2020-08-31 09:45 | PC.NURSE ---
Discharge education provided. Questions encouraged and answered. Pt. v/u.
--- NOTE | 2020-08-31 10:00 | PC.NURSE ---
Pt. left the unit ambulatory per pt. request. Accompanied by family member and staff x1.
== END 2020-08-31 10:00 | disposition home or self-care (01) ==
LOC: ER 15:04 → 2ND 15:18
PROVIDERS: Admitting Provider Family Medicine; Emergency Provider Family Medicine; PCP Family Medicine; Visit Provider Family Medicine
DX: R07.9 Chest pain, unspecified (principal); C15.9 Malignant neoplasm of esophagus, unspecified; I25.10 Atherosclerotic heart disease of native coronary artery without angina pectoris; I42.9 Cardiomyopathy, unspecified; I11.0 Hypertensive heart disease with heart failure; I50.9 Heart failure, unspecified; E03.9 Hypothyroidism, unspecified; Z95.5 Presence of coronary angioplasty implant and graft; Z79.899 Other long term (current) drug therapy
CPT/HCPCS: 36415; 71045; 80048; 84484; 85025; 93005; 99284; G0378; U0003

== ENCOUNTER 2020-09-01 09:35 | Emergency (ER) | payer MEDICARE, OTHER, SELFPAY ==
[2020-09-01] VITALS (12 sets, daily range): BP systolic 82–102; BP diastolic 39–50; PULSE 70–77; RESP 14–26; TEMP 36.6–36.9; O2SAT 92–98; BMI 21.7
--- NOTE | 2020-09-01 09:42 | XR_ITS ---
PROCEDURE: XR CHEST PORTABLE CLINICAL HISTORY: cp COMPARISON: CT CT CHEST W CON from 05/10/2020 CR XR CHEST PORTABLE from 07/01/2020 CR XR CHEST PORTABLE from 07/03/2020 CR XR CHEST PORTABLE from 08/30/2020 FINDINGS: The cardiomediastinal silhouette and pulmonary vascularity are within normal limits. The left-sided cardiac pacemaker is again noted with dual chamber electrodes both in good position. The lungs are clear without infiltrates, suspicious nodules, or pleural effusions. The left basilar atelectasis seen on the recent chest film 08/30/2020 has cleared. There is no pleural fluid. No acute bony abnormalities. There are mild multilevel degenerate changes midthoracic spine. IMPRESSION: No acute findings. Dictated by: Dr. Alejandro Lund MD 09/01/2020 09:53 Dr. Alejandro Lund MD in [place] 09/01/2020 09:53
--- NOTE | 2020-09-01 09:48 | HMH.EDGENADL ---
ED Disposition Clinical Impression: Medication side effect Disposition: Home, Self-Care Condition on Discharge: Good Referrals: Adiel Davis MD [Primary Care Provider] - 3 days Time of Disposition: 13:00 - Critical Care Critical Care Time: No Attestation: On 09/01/20, the high probability of a clinically significant, sudden or life threatening deterioration of the following system(s) required my full and direct attention, intervention and personal management. The time I documented below is in addition to time spent performing reported procedures but includes the following listed in this critical care notation. Medical Decision Making - Medical Records Medical records reviewed: Yes: I reviewed the patient's medical records. - Lev Inquiry Pt receiving controlled substance: No Vital Signs: 09/01/20 09:35 09/01/20 09:44 09/01/20 10:00 Temperature 97.9 F Temperature Source Oral Pulse Rate 70 70 Pulse Rate [Radial] 70 Respiratory Rate 19 21 19 Blood Pressure 85/44 L 82/48 L Blood Pressure [Right Arm] 84/39 L Blood Pressure Mean Blood Pressure Mean [Right Arm] 54 Blood Pressure Position Blood Pressure Position [Right Arm] Sitting 02 Sat by Pulse Oximetry 92 L 92 L 92 L Oxygen Delivery Method Room Air 09/01/20 10:16 09/01/20 11:02 09/01/20 11:03 Temperature Temperature Source Pulse Rate 70 73 77 Pulse Rate [Radial] Respiratory Rate 18 26 H Blood Pressure 92/47 L 98/47 L 98/47 L Blood Pressure [Right Arm] Blood Pressure Mean Blood Pressure Mean [Right Arm] Blood Pressure Position Sitting Blood Pressure Position [Right Arm] 02 Sat by Pulse Oximetry 97 93 L Oxygen Delivery Method 09/01/20 11:30 09/01/20 11:50 09/01/20 12:00 Temperature Temperature Source Pulse Rate 70 73 71 Pulse Rate [Radial] Respiratory Rate 14 22 18 Blood Pressure 101/43 L 100/48 L 102/47 L Blood Pressure [Right Arm] Blood Pressure Mean Blood Pressure Mean [Right Arm] Blood Pressure Position Blood Pressure Position [Right Arm] 02 Sat by Pulse Oximetry 96 98 94 L Oxygen Delivery Method 09/01/20 12:30 09/01/20 12:48 Temperature Temperature Source Pulse Rate 70 70 Pulse Rate [Radial] Respiratory Rate 18 16 Blood Pressure 91/44 L 95/42 L Blood Pressure [Right Arm] Blood Pressure Mean 66 70 Blood Pressure Mean [Right Arm] Blood Pressure Position Blood Pressure Position [Right Arm] 02 Sat by Pulse Oximetry 93 L 95 Oxygen Delivery Method Room Air Room Air - Lab Data Lab results reviewed: Yes: I reviewed the patient's lab results. Lab Results 09/01/20 09:30: WBC 7.2 D, RBC 3.44 L, Hgb 10.7 L, Hct 31.6 L, MCV 91.7, MCH 31.1, MCHC 33.9, RDW 15.2, Plt Count 257 D, MPV 8.2, Neut % (Auto) 81.9 H, Lymph % (Auto) 13.5, [place] % (Auto) 3.1, Eos % (Auto) 1.2, Baso % (Auto) 0.2, Neut # (Auto) 5.9, Lymph # (Auto) 1.0, [place] # (Auto) 0.2, Eos # (Auto) 0.1, Baso # (Auto) 0.0 09/01/20 09:30: Sodium 136, Potassium 3.6, Chloride 104, Carbon Dioxide 24, Anion Gap 11.6, BUN 17, Creatinine 1.10 D, Estimated Creat Clear 53, Estimated GFR 64, Est GFR ( Amer) 78 D, Glucose 163 H, Calcium 8.8, Total Bilirubin 1.4 H, AST 36, ALT 35, Alkaline Phosphatase 111, Troponin I < 0.01, Total Protein 6.6, Albumin 3.4 L, Globulin 3.2, Albumin/Globulin Ratio 1.1 09/01/20 10:00: SARS-CoV-2 (PCR) Not detected, Influenza A Untype (PCR) Not detected, Influenza Type B (PCR) Not detected Result diagrams: 09/01/20 09:30 09/01/20 09:30 Orders (Tests/Meds): ED MEDICATIONS Discontinued Medications Generic Name Dose Route Start Last Admin Trade Name Freq PRN Reason Stop Dose Admin Lactated Ringer's 500 mls @ 999 mls/hr 09/01/20 09:45 09/01/20 10:15 Lactated Ringer's 1000 Ml Bag IV 09/01/20 10:15 Not Given .Q31M SARAH Sodium Chloride 1,000 mls @ 999 mls/hr 09/01/20 10:15 09/01/20 09:55 Sod Chlor 0.9% 1000ml Bag IV 09/01/20 11:15 999
--- NOTE | 2020-09-01 09:48 | PC.NURSE ---
Rad at bedside
[2020-09-01 09:49] LABS: Basophils % 0.2 % (0.1-2.0); Eosinophils # 0.1 K/mm3 (0.0-0.4); Eosinophils % 1.2 % (0.1-12.0); Hematocrit 31.6 % (42.0-52.0); Hemoglobin 10.7 g/dL (14.1-18.0); Lymphocytes % 13.5 % (10-50); Mean Corpuscular HGB Conc 33.9 g/dL (31.8-35.4); Mean Corpuscular Hemoglobin 31.1 pg (27.0-31.2); Mean Corpuscular Volume 91.7 fl (80-94); Mean Platelet Volume 8.2 fl (7.4-10.4); Monocytes # 0.2 K/mm3 (0.1-1.0); Monocytes % 3.1 % (1.7-9.3); Neutrophils # 5.9 K/mm3 (1.8-7.8); Neutrophils % 81.9 % (37.0-80.0); Platelet Count 257 K/mm3 (142-424); Red Blood Count 3.44 M/mm3 (4.60-6.20); Red Cell Distribution Width 15.2 % (11.5-17.5); White Blood Count 7.2 K/mm3 (4.8-10.8)
[2020-09-01 09:50] LABS: Chloride 104 mmol/L (98-107); Potassium 3.6 mmoL/L (3.5-5.1); Sodium 136 mmol/L (136-145)
[2020-09-01 09:52] LABS: Blood Urea Nitrogen 17 mg/dl (9-20); Creatinine Clearance Estimated 53 mL/min (50-200); Estimated Glomerular Filt Rate 64 ml/min (>60); GFR (African American) 78 ML/MIN (>60)
[2020-09-01 09:53] LABS: Alanine Aminotransferase 35 U/L (12-78); Albumin Level 3.4 g/dl (3.5-5.0); Albumin/Globulin Ratio 1.1 (1.1-1.8); Alkaline Phosphatase 111 U/L (38-126); Anion Gap 11.6 mEq/L (5-15); Aspartate Amino Transferase 36 U/L (17-59); Bilirubin,Total 1.4 mg/dl (0.2-1.3); Calcium 8.8 mg/dl (8.4-10.2); Carbon Dioxide 24 mmol/L (22.0-30.0); Globulin 3.2 g/dL (1.3-3.2); Glucose 163 mg/dl (74-100); Total Protein,Serum 6.6 g/dl (6.3-8.2)
--- NOTE | 2020-09-01 10:01 | ECG_ITS ---
APPROVED REPORT Exam: Resting ECG HR:70 bpm ECG Measurements Heart Rate 70 AXES QRSd 156 QRS -29 QT 500 T 210 QTc 540 Conclusion Electronic atrial pacemaker Left bundle branch block Abnormal ECG Electronically signed by : Adiel Reyes, 09/02/2020 18:06:45
[2020-09-01 10:08] LABS: Troponin I < 0.01 ng/ml (0.00-0.034)
[2020-09-01 10:10] LABS: Coronavirus 19, PCR Not Detected (NotDetected); Influenza A, PCR Not Detected (NotDetected); Influenza B, PCR Not Detected (NotDetected)
--- NOTE | 2020-09-01 10:17 | CT_ITS ---
PROCEDURE: CT ABDOMEN PELVIS W CON CLINICAL INDICATION: r sided pain syncopal episode this morning COMPARISON: CT CT ABDOMEN PELVIS W CON from 05/10/2020 TECHNIQUE: IV Contrast: 75ML OPTIRAY 350 Oral Contrast none given Axial images obtained with sagittal and coronal reformats. All CT scans at the facility use one or more dose reduction, viz: automated exposure control, ma/kV adjustment per patient size (including targeted exams where dose is matched to indication, i.e. head), or iterative reconstruction technique. FINDINGS: Lower thorax: Coarse appearing bilateral lower lobe pneumonic infiltrates are seen primarily involving the posterior basilar segments with small reactive pleural effusions. Cardiac size is borderline. ABDOMEN: Liver: There is a stable hypodense lesion lower portion right lobe of the liver likely a hepatic cyst. Otherwise the liver appears normal.. Gallbladder: Post cholecystectomy Pancreas: No masses or peripancreatic fluid collections. Spleen: unremarkable Adrenals: unremarkable Kidneys/ureters: The kidneys are normal in size and show symmetrical function. There is a prominent extra renal pelvis of both kidneys slightly more prominent left side than right. There are 3-4 small benign-appearing cortical cyst left kidney, the right kidney is otherwise unremarkable. ABDOMEN & PELVIS: Stomach bowel: Thickening of the distal esophagus is again noted consistent with esophageal carcinoma. The small paraesophageal node seen on the previous exam is not definitely seen. The small bowel appears grossly normal. There is moderate scattered stool and gas seen throughout the colon. Peritoneum: No abnormal fluid collections. No obvious inflammatory changes. No free air. Lymph nodes: No enlarged lymph nodes apparent. Vasculature: There is prominent arthrosclerotic calcification of the infrarenal aorta and proximal common iliac arteries but there is no aneurysm. Bones: There are mild multilevel degenerate changes of the lower thoracic and upper lumbar spine. PELVIS: Reproductive: unremarkable Bladder: The bladder is moderately distended with urine shows a mildly thickened wall. The prostate is normal in size containing a couple of calcifications. There are small bilateral inguinal hernias containing fat only. Appendix: Not definitely identified but there are no pericecal inflammatory changes. IMPRESSION: 1. Somewhat irregular thickening of the distal esophagus consistent with possible esophageal carcinoma 2. Bilateral lower lobe coarse appearing pneumonic infiltrates with small reactive pleural effusions. 3. Somewhat prominent bilateral extrarenal pelvis of the kidneys with multiple benign-appearing cysts left kidney, no obstructive uropathy of either kidney Dictated by: Dr. Alejandro Lund MD 09/01/2020 11:17 Dr. Alejandro Lund MD in [facility] 09/01/2020 11:17
--- NOTE | 2020-09-01 10:17 | CT_ITS ---
PROCEDURE: CT HEAD/BRAIN WO CON CLINICAL INDICATION: r sided pain COMPARISON: CT CT HEAD/BRAIN WO CON from 03/27/2019 TECHNIQUE: Axial images obtained. All CT scans at the facility use one or more dose reduction, viz: automated exposure control, ma/kV adjustment per patient size (including targeted exams where dose is matched to indication, i.e. head), or iterative reconstruction technique. FINDINGS: No midline shift, mass effect, intracranial hemorrhage, hydrocephalus, or extra-axial fluid collection is evident. The ventricular system is normal. Cortical sulci and cerebellar convolutions mildly prominent normal for age. Again noted is a focal dense calcification just inside the inner table of skull within the left sylvian fissure unchanged from previous exam and small meningioma. There is prominent diffuse periventricular hypodensities consistent with chronic ischemic white matter changes. The calvarium has an unremarkable appearance. No mastoid effusion. No sinus air-fluid level seen however images were not carried as low as the previous exam and the lower portion of the maxillary sinuses are not included for evaluation. The previous exam shows a small fluid level left maxillary sinus. IMPRESSION: Findings of mild age-appropriate cortical atrophy and moderate periventricular chronic ischemic white matter changes, no acute intracranial pathology noted Dictated by: Dr. Alejandro Lund MD 09/01/2020 10:50 Dr. Alejandro Lund MD in [facility] 09/01/2020 10:50
--- NOTE | 2020-09-01 11:01 | PC.NURSE ---
Pt returned from rad
--- NOTE | 2020-09-01 11:03 | PC.NURSE ---
RETURN FROM CT. PT STATES FEELING IMPROVED
== END 2020-09-01 13:24 | disposition home or self-care (01) ==
PROVIDERS: Emergency Provider Family Medicine; PCP Family Medicine
DX: R55 Syncope and collapse (principal); T43.211A Poisoning by selective serotonin and norepinephrine reuptake inhibitors, accidental (unintentional), initial encounter; Y92.019 Unspecified place in single-family (private) house as the place of occurrence of the external cause; C15.9 Malignant neoplasm of esophagus, unspecified; I50.9 Heart failure, unspecified; I25.10 Atherosclerotic heart disease of native coronary artery without angina pectoris; Z95.0 Presence of cardiac pacemaker; I10 Essential (primary) hypertension
CPT/HCPCS: 70450; 71045; 74177; 80053; 84484; 85025; 93005; 99282; J2405; Q9967; U0003

== ENCOUNTER → 2020-09-06 12:32 | Outpatient (CLI) | payer MEDICARE, OTHER, SELFPAY | PROVIDERS: PCP Family Medicine; Visit Provider Family Medicine | DX: Z01.818 Encounter for other preprocedural examination (principal); Z11.52 Encounter for screening for COVID-19 | CPT/HCPCS: U0003 ==

== ENCOUNTER 2020-12-11 12:22 | Emergency (ER) | payer MEDICARE, OTHER, SELFPAY ==
--- NOTE | 2020-12-11 11:40 | ECG_ITS ---
APPROVED REPORT Exam: Resting ECG HR:82 bpm ECG Measurements Heart Rate 82 AXES VA 202 P 65 QRSd 152 QRS 24 QT 428 T 261 QTc 500 Conclusion Normal sinus rhythm Left bundle branch block Abnormal ECG Electronically signed by : Adiel Reyes MD 12/12/2020 09:18:45
[2020-12-11 12:15] VITALS: BP 120/63; PULSE 81; RESP 16; TEMP 36.5; O2SAT 96; BMI 22.4
[2020-12-11 12:26] LABS: POC Glucose,Bedside 120 (70-110)
--- NOTE | 2020-12-11 12:27 | HMH.EDGENADL ---
ED Disposition Clinical Impression: Syncope and collapse Disposition: Home, Self-Care Condition on Discharge: Good Instructions: DI for Syncope in Adults (Fainting) Additional Instructions: Follow-up with your primary care doctor, call Sunday to make appointment. Return to the emergency department if fainting returns. Referrals: Adiel Davis MD [Primary Care Provider] - - Critical Care Critical Care Time: No Attestation: On , the high probability of a clinically significant, sudden or life threatening deterioration of the following system(s) required my full and direct attention, intervention and personal management. The time I documented below is in addition to time spent performing reported procedures but includes the following listed in this critical care notation. Medical Decision Making - Lev Inquiry Pt receiving controlled substance: No Vital Signs: 12/11/20 12:15 Temperature 97.7 F Temperature Source Oral Pulse Rate [Right] 81 Respiratory Rate 16 Blood Pressure [Right Arm] 120/63 Blood Pressure Mean [Right Arm] 82 Blood Pressure Source [Right Arm] Automatic Cuff Blood Pressure Position [Right Arm] Sitting 02 Sat by Pulse Oximetry 96 Oxygen Delivery Method Room Air - Lab Data Lab Results 12/11/20 12:00: WBC 6.3, RBC 4.47 L, Hgb 13.9 L, Hct 41.8 L, MCV 93.4, MCH 31.1, MCHC 33.3, RDW 14.3, Plt Count 317, MPV 8.2, Neut % (Auto) 68.8, Lymph % (Auto) 19.2, [place] % (Auto) 10.1 H, Eos % (Auto) 1.6, Baso % (Auto) 0.4, Neut # (Auto) 4.4, Lymph # (Auto) 1.2, [place] # (Auto) 0.6, Eos # (Auto) 0.1, Baso # (Auto) 0.0 12/11/20 12:00: Sodium 139, Potassium 3.5, Chloride 105, Carbon Dioxide 24, Anion Gap 13.5, BUN 15, Creatinine 1.00, Estimated Creat Clear 59, Estimated GFR 71, Est GFR ( Amer) 86, Glucose 118 H, Calcium 9.5, Total Bilirubin 0.5, AST 40, ALT 33, Alkaline Phosphatase 116, Troponin I < 0.01, Total Protein 7.6, Albumin 3.6, Globulin 4.0 H, Albumin/Globulin Ratio 0.9 L 10/02/21 12:19: POC Glucose 120 H Result diagrams: 12/11/20 12:00 12/11/20 12:00 Orders (Tests/Meds): ED MEDICATIONS Discontinued Medications Generic Name Dose Route Start Last Admin Trade Name Cristi PRN Reason Stop Dose Admin Sodium Chloride 500 ml 12/11/20 12:49 Sodium Chloride 0.9% 500ml Bag IV 12/11/20 12:50 ONCE ONE ORDERS Category Date Time Status Troponin I Q3H Lab 12/11/20 15:45 Ordered Troponin I Q3H Lab 12/11/20 18:45 Ordered Urinalysis and Microscopic Stat Lab 12/11/20 12:34 Ordered - Radiology Data #1 Image(s): Chest Image Reviewed: Yes I reviewed the patient's radiology image, Yes I have reviewed radiologist's interpretation PROCEDURE INFORMATION: Exam: XR Chest Exam date and time: 12/11/2020 12:34 PM Age: 85 years old Clinical indication: Injury or trauma; Fall; Blunt trauma (contusions or hematomas); Injury date: 12/11/20; Injury details: Patient passed out and fell at home; Additional info: Syncopal TECHNIQUE: Imaging protocol: XR of the chest. Views: 4 or more views. COMPARISON: CR XR CHEST PORTABLE 09/01/2020 9:45 AM FINDINGS: Tubes, catheters and devices: Central line terminates in the superior vena cava. Transvenous pacemaker leads in the heart Lungs: Hyperexpanded lung biswas consistent with COPD Pleural spaces: Unremarkable. No pleural effusion. No pneumothorax. Heart/Mediastinum: Stable cardiac silhouette Bones/joints: Unremarkable. IMPRESSION: Hyperexpanded lung biswas consistent with COPD - CT Data CT Scan: Head Time Received: 14:[address] Reviewed: Yes: I have viewed the radiologist's interpretation Findings Narrative: PROCEDURE INFORMATION: Exam: CT Head Without Contrast Exam date and time: 12/11/2020 12:34 PM Age: 85 years old Clinical indication: Injury or trauma; Fall; Blunt trauma (contusions or hematomas); With loss of consciousne
--- NOTE | 2020-12-11 12:34 | CT_ITS ---
PROCEDURE INFORMATION: Exam: CT Head Without Contrast Exam date and time: 12/11/2020 12:34 PM Age: 85 years old Clinical indication: Injury or trauma; Fall; Blunt trauma (contusions or hematomas); With loss of consciousness; Loss of consciousness for 30 minutes or less; Injury date: 12/11/20; Injury details: Patient passed out and fell at home; Additional info: Syncopal episode TECHNIQUE: Imaging protocol: Computed tomography of the head without contrast. 3D rendering (Not supervised by radiologist): MIP and/or 3D reconstructed images were created by the technologist. Radiation optimization: All CT scans at this facility use at least one of these dose optimization techniques: automated exposure control; mA and/or kV adjustment per patient size (includes targeted exams where dose is matched to clinical indication); or iterative reconstruction. COMPARISON: CT HEAD/BRAIN WO CON 09/01/2020 10:36 AM FINDINGS: Brain: No acute intracranial hemorrhage.. Stable calcification in the lateral left frontal lobe. There is moderate diffuse heterogeneity of the white matter attenuation, consistent with chronic white matter ischemic changes. Moderate cerebral atrophy Cerebral ventricles: No ventriculomegaly. Paranasal sinuses: Visualized sinuses are unremarkable. No fluid levels. Mastoid air cells: Visualized mastoid air cells are well aerated. Bones/joints: Unremarkable. No acute fracture. Soft tissues: Unremarkable. IMPRESSION: No acute intracranial hemorrhage..
--- NOTE | 2020-12-11 12:34 | XR_ITS ---
PROCEDURE INFORMATION: Exam: XR Chest Exam date and time: 12/11/2020 12:34 PM Age: 85 years old Clinical indication: Injury or trauma; Fall; Blunt trauma (contusions or hematomas); Injury date: 12/11/20; Injury details: Patient passed out and fell at home; Additional info: Syncopal TECHNIQUE: Imaging protocol: XR of the chest. Views: 4 or more views. COMPARISON: CR XR CHEST PORTABLE 09/01/2020 9:45 AM FINDINGS: Tubes, catheters and devices: Central line terminates in the superior vena cava. Transvenous pacemaker leads in the heart Lungs: Hyperexpanded lung biswas consistent with COPD Pleural spaces: Unremarkable. No pleural effusion. No pneumothorax. Heart/Mediastinum: Stable cardiac silhouette Bones/joints: Unremarkable. IMPRESSION: Hyperexpanded lung biswas consistent with COPD
[2020-12-11 12:41] LABS: Basophils % 0.4 % (0.1-2.0); Eosinophils # 0.1 K/mm3 (0.0-0.4); Eosinophils % 1.6 % (0.1-12.0); Hematocrit 41.8 % (42.0-52.0); Hemoglobin 13.9 g/dL (14.1-18.0); Lymphocytes # 1.2 K/mm3 (0.7-4.5); Lymphocytes % 19.2 % (10-50); Mean Corpuscular HGB Conc 33.3 g/dL (31.8-35.4); Mean Corpuscular Hemoglobin 31.1 pg (27.0-31.2); Mean Corpuscular Volume 93.4 fl (80-94); Mean Platelet Volume 8.2 fl (7.4-10.4); Monocytes # 0.6 K/mm3 (0.1-1.0); Monocytes % 10.1 % (1.7-9.3); Neutrophils # 4.4 K/mm3 (1.8-7.8); Neutrophils % 68.8 % (37.0-80.0); Platelet Count 317 K/mm3 (142-424); Red Blood Count 4.47 M/mm3 (4.60-6.20); Red Cell Distribution Width 14.3 % (11.5-17.5); White Blood Count 6.3 K/mm3 (4.8-10.8)
[2020-12-11 12:42] LABS: Chloride 105 mmol/L (98-107); Potassium 3.5 mmoL/L (3.5-5.1); Sodium 139 mmol/L (136-145)
[2020-12-11 12:45] LABS: Alanine Aminotransferase 33 U/L (12-78); Albumin Level 3.6 g/dl (3.5-5.0); Albumin/Globulin Ratio 0.9 (1.1-1.8); Alkaline Phosphatase 116 U/L (38-126); Anion Gap 13.5 mEq/L (5-15); Aspartate Amino Transferase 40 U/L (17-59); Bilirubin,Total 0.5 mg/dl (0.2-1.3); Blood Urea Nitrogen 15 mg/dl (9-20); Carbon Dioxide 24 mmol/L (22.0-30.0); Creatinine Clearance Estimated 59 mL/min (50-200); Estimated Glomerular Filt Rate 71 ml/min (>60); GFR (African American) 86 ML/MIN (>60); Total Protein,Serum 7.6 g/dl (6.3-8.2)
[2020-12-11 12:46] LABS: Calcium 9.5 mg/dl (8.4-10.2); Glucose 118 mg/dl (74-100)
[2020-12-11 12:57] LABS: Troponin I < 0.01 ng/ml (0.00-0.034)
--- NOTE | 2020-12-11 13:41 | PC.NURSE ---
pt back from ct
[2020-12-11 14:53] VITALS: BP 122/62; PULSE 65; RESP 16; TEMP 36.7; O2SAT 98
== END 2020-12-11 14:54 | disposition home or self-care (01) ==
PROVIDERS: Emergency Provider Emergency Medicine; PCP Family Medicine
DX: R55 Syncope and collapse (principal); C15.9 Malignant neoplasm of esophagus, unspecified; I25.10 Atherosclerotic heart disease of native coronary artery without angina pectoris; I50.22 Chronic systolic (congestive) heart failure; I10 Essential (primary) hypertension; F41.9 Anxiety disorder, unspecified; I42.9 Cardiomyopathy, unspecified; Z95.0 Presence of cardiac pacemaker; R00.2 Palpitations
CPT/HCPCS: 70450; 71045; 80053; 82962; 84484; 85025; 93005; 99283

== ENCOUNTER → 2021-01-24 09:14 | Outpatient (CLI) | payer MEDICARE, OTHER, SELFPAY | PROVIDERS: PCP Family Medicine; Visit Provider Nurse Practitioner | DX: Z20.822 Contact with and (suspected) exposure to COVID-19 (principal) | CPT/HCPCS: C9803; U0003; U0005 ==

== ENCOUNTER → 2021-03-28 09:29 | Outpatient (CLI) | payer MEDICARE, OTHER, SELFPAY | PROVIDERS: Visit Provider Nurse Practitioner | DX: U07.1 COVID-19 (principal) | CPT/HCPCS: C9803; U0003; U0005 ==

== ENCOUNTER 2021-07-30 09:57 | Emergency (ER) | payer MEDICARE, OTHER, SELFPAY ==
[2021-07-30 09:58] VITALS: BP 112/64; PULSE 70; RESP 16; TEMP 36.5; O2SAT 98; BMI 23.4
--- NOTE | 2021-07-30 10:27 | HMH.EDWNDL ---
ED Disposition Clinical Impression: Lip laceration Qualifiers: Encounter type: initial encounter Qualified Code(s): S01.511A - Laceration without foreign body of lip, initial encounter Forehead contusion Qualifiers: Encounter type: initial encounter Qualified Code(s): S00.83XA - Contusion of other part of head, initial encounter Disposition: Home, Self-Care Condition on Discharge: Good Instructions: DI for Laceration Repair Additional Instructions: follow up pcp as needed Prescriptions: Amoxicillin/Potassium Clav [Amox-Clav 875-125 mg Tablet] 1 tab PO BID #20 tab Transmission Status: Pending to [facility] Referrals: Carlos Marcus MD [Primary Care Provider] - - Critical Care Critical Care Time: No Attestation: On 07/30/21, the high probability of a clinically significant, sudden or life threatening deterioration of the following system(s) required my full and direct attention, intervention and personal management. The time I documented below is in addition to time spent performing reported procedures but includes the following listed in this critical care notation. Medical Decision Making - Medical Records Medical records reviewed: Yes: I reviewed the patient's medical records. - Lev Inquiry Pt receiving controlled substance: No Vital Signs: 07/30/21 09:58 Temperature 97.7 F Temperature Source Oral Pulse Rate [Radial] 70 Respiratory Rate 16 Blood Pressure [Right Arm] 112/64 Blood Pressure Mean [Right Arm] 80 Blood Pressure Position [Right Arm] Sitting 02 Sat by Pulse Oximetry 98 Oxygen Delivery Method Room Air Orders (Tests/Meds): ED MEDICATIONS Discontinued Medications Generic Name Dose Route Start Last Admin Trade Name Freq PRN Reason Stop Dose Admin Lidocaine HCl 20 ml 07/30/21 10:09 Lidocaine 1% 20ml Mdv SQ 07/30/21 10:10 ONCE ONE Tetanus/Reduced Diphtheria/Acell Pertussis 0.5 ml 07/30/21 10:20 Tet/Diphth/Pert-Adult 0.5ml Syringe IM 07/30/21 10:21 .ONCE ONE Wound/Laceration HPI - General Chief Complaint: Wound/Laceration Stated Complaint: AO 07/30 fall lip laceration Time Seen by Provider: 07/30/21 10:28 Mode of Arrival: Ambulatory Limitations: No Limitations Description of Symptoms (Recalled from ER Triage Doc. by RN): TO ED PER PVT CAR WITH C/O LAC TO LOWER LIP STATES HE TRIPPED OVER A LAUREANO LOST HIS BALANCE AND FELL. PT DENIES ANY LOC. PT ALERT AND ORIENTED. 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, no cp, no neck pain, mild localized frontal case, no n/v/dizzy/soa Onset (ago): hour(s) Context: accidental Associated symptoms: none - Related Data Home Medications Medication Instructions Recorded Confirmed Megestrol Acetate [Megestrol 400 mg PO DAILY 07/01/20 07/25/21 Acetate 400mg/10mL Udc] ondansetron HCL [Zofran 4mg Tab*] 4 mg PO Q6 07/01/20 07/25/21 Aspirin [Aspirin 81mg EC Tab] 81 mg PO DAILY 07/04/20 07/25/21 Pantoprazole Sodium 40 mg PO HS 07/04/20 07/25/21 Previous Rx's Medication Instructions Recorded LORazepam [Lorazepam 1mg Tablet] 1 mg PO TID #90 tab 07/05/20 bisoprolol fumarate 5 mg tablet 2.5 mg PO DAILY #15 tab 07/25/21 Amoxicillin/Potassium Clav 1 tab PO BID #20 tab 07/30/21 [Amox-Clav 875-125 mg Tablet] Allergies Allergy/AdvReac Type Severity Reaction Status Date / Time No Known Drug Allergies Allergy Unknown Verified 07/25/21 14:02 [NO KNOWN DRUG ALLERGIES] [facility] History - Hepatitis A Screen Attestation statement:: This patient has been screened for Hepatitis A risk factors. Medical History: Reports:: Anxiety, Arrhythmia, Cancer, Cardiomyopathy, Congestive Heart Failure, Coronary Artery Disease, Hypertension, Internal Pacemaker, Palpitations Denies:: Diabetes Mellitus Type 1, Diabetes Mellitus Type 2, MRSA, Seizures Other Medical History: Reports: Arthritis, Cataracts, H
[2021-07-30 10:42] VITALS: BP 135/74; PULSE 78; RESP 16; TEMP 37; O2SAT 98
== END 2021-07-30 10:44 | disposition home or self-care (01) ==
PROVIDERS: Emergency Provider Emergency Medicine; PCP Family Medicine
DX: S01.511A Laceration without foreign body of lip, initial encounter (principal); R00.2 Palpitations; I10 Essential (primary) hypertension; I25.119 Atherosclerotic heart disease of native coronary artery with unspecified angina pectoris; I25.2 Old myocardial infarction; I49.9 Cardiac arrhythmia, unspecified; I42.9 Cardiomyopathy, unspecified; E03.9 Hypothyroidism, unspecified; M19.90 Unspecified osteoarthritis, unspecified site; H26.9 Unspecified cataract; Q24.9 Congenital malformation of heart, unspecified; F41.9 Anxiety disorder, unspecified; Z79.82 Long term (current) use of aspirin; Z79.899 Other long term (current) drug therapy; Z95.0 Presence of cardiac pacemaker; Z86.59 Personal history of other mental and behavioral disorders; Z23 Encounter for immunization; Z82.49 Family history of ischemic heart disease and other diseases of the circulatory system; Z82.5 Family history of asthma and other chronic lower respiratory diseases; Z83.438 Family history of other disorder of lipoprotein metabolism and other lipidemia; Z85.9 Personal history of malignant neoplasm, unspecified; W01.10XA Fall on same level from slipping, tripping and stumbling with subsequent striking against unspecified object, initial encounter
CPT/HCPCS: 12011; 90471; 90715; 99284

== ENCOUNTER 2022-01-15 11:22 | Emergency (ER) | payer MEDICARE, OTHER, SELFPAY ==
--- NOTE | 2022-01-15 12:26 | XR_ITS ---
PROCEDURE INFORMATION: Exam: XR Right Knee Exam date and time: 01/15/2022 12:31 PM Age: 86 years old Clinical indication: Pain; Knee; Right TECHNIQUE: Imaging protocol: Radiologic exam of the Right knee. Views: 3 views. COMPARISON: No relevant prior studies available. FINDINGS: Bones/joints: Normal. Soft tissues: Normal. IMPRESSION: No acute findings.
--- NOTE | 2022-01-15 12:26 | XR_ITS ---
PROCEDURE INFORMATION: Exam: XR Right Hip Exam date and time: 01/15/2022 12:29 PM Age: 86 years old Clinical indication: Hip pain; Right hip TECHNIQUE: Imaging protocol: Radiologic exam of the Right hip. Views: 2 or 3 views hip with pelvis when performed. COMPARISON: CT ABDOMEN PELVIS W CON 09/01/2020 10:39 AM FINDINGS: Bones/joints: Unremarkable. No acute fracture. Soft tissues: Unremarkable. IMPRESSION: No acute findings.
--- NOTE | 2022-01-15 12:26 | XR_ITS ---
PROCEDURE INFORMATION: Exam: XR Right Foot Exam date and time: 01/15/2022 12:40 PM Age: 86 years old Clinical indication: Pain; Foot; Right TECHNIQUE: Imaging protocol: Radiologic exam of the Right foot. Views: 3 or more views. COMPARISON: CR XR ANKLE RT MIN 3V 01/15/2022 12:35 PM FINDINGS: Bones/joints: Possible avulsion fracture off the 5th metatarsal base measures 2 mm. Recommend correlation with patient pain. No dislocation. Degenerative changes at the 1st metatarsal-phalangeal joint. Soft tissues: Normal. IMPRESSION: Possible avulsion fracture off the 5th metatarsal base measures 2 mm. Recommend correlation with patient pain.
--- NOTE | 2022-01-15 12:26 | XR_ITS ---
PROCEDURE INFORMATION: Exam: XR Right Ankle Exam date and time: 01/15/2022 12:35 PM Age: 86 years old Clinical indication: Pain; Ankle; Right TECHNIQUE: Imaging protocol: Radiologic exam of the Right ankle. Views: 3 or more views. COMPARISON: CR XR TIBIA FIBULA RT 2V 01/15/2022 12:32 PM FINDINGS: Bones/joints: Normal. Soft tissues: Normal. IMPRESSION: No acute findings.
--- NOTE | 2022-01-15 12:26 | XR_ITS ---
PROCEDURE INFORMATION: Exam: XR Right Tibia and Fibula Exam date and time: 01/15/2022 12:32 PM Age: 86 years old Clinical indication: Pain; Lower leg; Right TECHNIQUE: Imaging protocol: Radiologic exam of the Right tibia and fibula. Views: 2 views. COMPARISON: CR XR KNEE RT 3V 01/15/2022 12:31 PM FINDINGS: Bones/joints: No acute fracture. No dislocation. Soft tissues: Normal. IMPRESSION: No acute findings.
--- NOTE | 2022-01-15 12:26 | EXP.UTC ---
Discharge Plan Disposition Patient Disposition: Home, Self-Care Condition: Good Prescriptions Prescriptions: No Action venlafaxine 150 mg capsule,extended release 24hr 150 mg PO DAILY bisoprolol fumarate 5 mg tablet 2.5 mg PO DAILY Qty: 15 2RF Rx Instructions: take 0.5 tablet daily ondansetron HCl 4 MG tablet 4 mg PO Q6 megestrol 400 MG/10 ML suspension 400 mg PO DAILY aspirin 81 MG tablet,delayed release (DR/EC) 81 mg PO DAILY pantoprazole 40 MG tablet,delayed release (DR/EC) 40 mg PO HS lorazepam 1 MG tablet 1 mg PO TID Qty: 90 0RF Referrals Follow up/Referrals: Carlos Marcus MD [Primary Care Provider] - See instructions Nabeel Lorenzo MD [Staff Physician] - See instructions Activity Restrictions/Add. Instructions Additional Instructions/Restrictions: Rest the extremity, Elevate the extremity as tolerated while you are resting. Follow up with Dr. Lorenzo (orthopedics). I put in a referral but you need to call his office and schedule an appointment. Follow up with your regular doctor. GO TO THE ER FOR ANY WORSENING SYMPTOMS Clinical Impressions Clinical Impression: Crushing injury of leg, right, Ankle pain, right, Foot pain, right Instructions Patient Instructions: DI for Ankle Pain, DI for Leg Pain, DI for Crush Injury Discharge ED Provider: Esteban Gomez [facility] General Stated complaint: AO [id number] right foot and ankle pain Time Seen by Provider: 01/15/22 12:25 History of Present Illness Provider Complaint: He states that about 8 days ago he was helping to move a heavy piece of furniture when it slipped and came down on his right foot and caught his right lower leg against the wall. Since then he has had right foot and lower leg pain. His pain is worse when he walks and bears weight on it. Related Data Home Medications Medication Instructions Recorded Confirmed megestrol 400 mg/10 mL (10 mL) 400 mg PO DAILY DIET 07/01/20 10/24/21 oral suspension ondansetron HCl 4 mg tablet 4 mg PO Q6 nausea 07/01/20 10/24/21 aspirin 81 mg tablet,delayed 81 mg PO DAILY CIRCULATION 07/04/20 10/24/21 release pantoprazole 40 mg tablet,delayed 40 mg PO HS GERD 07/04/20 10/24/21 release venlafaxine 150 mg 150 mg PO DAILY 10/24/21 10/24/21 capsule,extended release 24 hr Previous Rx's Medication Instructions Recorded lorazepam 1 mg tablet 1 mg PO TID sleep #90 tabs 07/05/20 bisoprolol fumarate 5 mg tablet 2.5 mg PO DAILY #15 tabs 10/24/21 Allergies Allergy/AdvReac Type Severity Reaction Status Date / Time No Known Drug Allergies Allergy Unknown Verified 01/15/22 12:38 [NO KNOWN DRUG ALLERGIES] [facility] Medical History Abnormal cardiovascular stress test Atypical angina Chest pain Fall Recent myocardial infarction Social History Smoking Status: Never smoker alcohol intake: never substance use type: denies use current occupational status: retired Travel in the last 8 weeks: Inside the [place] household members: spouse housing: house current occupational exposures/hazards: No caffeine: Yes ROS Obtained: Yes All systems reviewed & no additional complaints except as documented Constitutional Constitutional: Denies chills and Denies fever(s) Integumentary/Breasts Skin/Breast: Denies redness, Denies rash and Denies wounds Neurologic Neurologic: Denies paresthesias Physical Exam General General appearance: alert and in no apparent distress Head Head exam: atraumatic, normocephalic and normal inspection Eye Eye exam: Present normal appearance, PERRL and EOMI ENT ENT exam: Present normal exam, normal oropharynx, mucous membranes moist, TM's normal bilaterally and normal external ear exam Neck Neck exam: Present normal inspection, full ROM and trachea midline; Absent meningismus or lymphaden
[2022-01-15 12:36] VITALS: BP 162/77; PULSE 69; RESP 18; TEMP 36.6; O2SAT 98; BMI 24.4
[2022-01-15 13:48] VITALS: BP 162/77; PULSE 69; RESP 18; TEMP 36.6
== END 2022-01-15 13:51 | disposition home or self-care (01) ==
PROVIDERS: Emergency Provider Nurse Practitioner Family; PCP Family Medicine
DX: M79.604 Pain in right leg (principal); M79.671 Pain in right foot; R07.9 Chest pain, unspecified; R94.31 Abnormal electrocardiogram [ECG] [EKG]; I20.9 Angina pectoris, unspecified; I25.2 Old myocardial infarction; Z79.82 Long term (current) use of aspirin; Z79.899 Other long term (current) drug therapy; W20.8XXA Other cause of strike by thrown, projected or falling object, initial encounter
CPT/HCPCS: 73502; 73562; 73590; 73610; 73630; 99213; G0463

== ENCOUNTER 2022-04-12 10:00 | Outpatient (RCR) | payer MEDICARE, OTHER, SELFPAY | END 2022-04-12 10:05 | disposition home or self-care (01) | LOC: PT 10:00 | PROVIDERS: PCP Family Medicine; Visit Provider Neurological Surgery | DX: M54.50 Low back pain, unspecified (principal) | CPT/HCPCS: 97010; 97110; 97112; 97163; 97530; 97535 ==

== ENCOUNTER 2022-05-14 06:59 | Emergency (ER) | payer MEDICARE, OTHER, SELFPAY ==
[2022-05-14] VITALS (9 sets, daily range): BP systolic 124–163; BP diastolic 61–82; PULSE 66–80; RESP 15–26; TEMP 36.6; O2SAT 94–99; BMI 24.4
--- NOTE | 2022-05-14 06:56 | ECG_ITS ---
APPROVED REPORT Exam: Resting ECG HR:76 bpm ECG Measurements Heart Rate 76 AXES IL 212 P 63 QRSd 166 QRS -17 QT 392 T 145 QTc 423 Conclusion SINUS RHYTHM WITH FIRST DEGREE AV BLOCK LEFT BUNDLE BRANCH BLOCK [120+ ms QRS DURATION, 80+ ms Q/S IN V1/V2, 85+ ms R IN I/aVL/V5/V6] ABNORMAL ECG UNCONFIRMED REPORT Electronically signed by : Adiel Reyes MD 05/14/2022 21:07:35
--- NOTE | 2022-05-14 07:04 | XR_ITS ---
PROCEDURE INFORMATION: Exam: XR Chest Exam date and time: 05/14/2022 7:24 AM Age: 86 years old Clinical indication: Cough TECHNIQUE: Imaging protocol: Radiologic exam of the chest. Views: 1 view. COMPARISON: CR XR CHEST AP 12/11/2020 1:15 PM FINDINGS: Tubes, catheters and devices: Atrioventricular pacemaker. Lungs: Hypoinflation with interstitial prominence and mild airspace disease. Pleural spaces: No significant pleural effusion. Heart/Mediastinum: No cardiomegaly. Bones/joints: Degenerative change. IMPRESSION: Hypoinflation with interstitial prominence and mild airspace disease.
[2022-05-14 07:12] LABS: Coronavirus 19, PCR Not Detected (NotDetected); Influenza A, PCR Not Detected (NotDetected); Influenza B, PCR Not Detected (NotDetected)
--- NOTE | 2022-05-14 07:14 | CT_ITS ---
PROCEDURE INFORMATION: Exam: CTA Chest With Contrast Exam date and time: 05/14/2022 8:01 AM Age: 86 years old Clinical indication: Shortness of breath; Patient HX: HX of lung cancer; Additional info: SOA, R chest pain TECHNIQUE: Imaging protocol: Computed tomographic angiography of the chest with contrast. 3D rendering (Not supervised by radiologist): MIP and/or 3D reconstructed images were created by the technologist. Radiation optimization: All CT scans at this facility use at least one of these dose optimization techniques: automated exposure control; mA and/or kV adjustment per patient size (includes targeted exams where dose is matched to clinical indication); or iterative reconstruction. Contrast material: ISOVUE; Contrast volume: 70 ml; Contrast route: INTRAVENOUS (IV); REPORTING DATA: Count of CT and Cardiac NM exams in prior 12 months: This patient has received 0 known CTs and 0 known cardiac nuclear medicine studies in the 12 months prior to the current study. COMPARISON: CT ANGIO CHEST 04/03/2020 2:42 AM FINDINGS: Tubes, catheters and devices: Transvenous pacemaker leads in the heart Pulmonary arteries: No evidence of pulmonary embolus to the segmental level. Aorta: No aneurysm of the aorta. No dissection of the aorta. Lungs: Mild panlobular emphysematous changes. Opacities in lingula and both lower lobes may represent atelectasis or pneumonia.. Pleural spaces: Unremarkable. No pneumothorax. No pleural effusion. Heart: Unremarkable. No cardiomegaly. No pericardial effusion. Lymph nodes: 2 cm node in the preaortic region and AP window. Pathologic node anterior to the dre 13 x 13 mm Gallbladder and bile ducts: Cholecystectomy. The common duct is prominent. It measures 14 millimeters. This may be due to post cholecystectomy state and elderly status. However, if biliary obstruction is suspected clinically, recommend further evaluation Kidneys and ureters: 2.6 cm simple cyst medial left kidney. . No follow-up imaging recommended . There may be bilateral pararenal cysts or bilateral hydronephrosis.. Bones/joints: Unremarkable. No acute fracture. Soft tissues: Unremarkable. IMPRESSION: 1. No evidence of pulmonary embolus to the segmental level. 2. No aneurysm of the aorta. 3. No dissection of the aorta. 4. Opacities in lingula and both lower lobes may represent atelectasis or pneumonia.. 5. There may be bilateral pararenal cysts or bilateral hydronephrosis.. COMMENTS: Consistent with the [employer]'s Incidental Findings Committee white paper (J Am Ludin Radiol 2018): Any incidental renal lesion less than 1 cm or classified as too small to characterize, or any incidental cystic renal lesion characterized as simple-appearing, is likely benign. No follow-up imaging is recommended for these lesions per consensus recommendations based on imaging criteria.
[2022-05-14 07:16] LABS: Basophils # 0.1 K/mm3 (0-0.2); Basophils % 0.9 % (0.1-2.0); Eosinophils # 0.5 K/mm3 (0.0-0.4); Eosinophils % 6.8 % (0.1-12.0); Hematocrit 44.7 % (42.0-52.0); Hemoglobin 14.6 g/dL (14.1-18.0); Lymphocytes # 0.9 K/mm3 (0.7-4.5); Lymphocytes % 11.9 % (10-50); Mean Corpuscular HGB Conc 32.6 g/dL (31.8-35.4); Mean Corpuscular Hemoglobin 31.5 pg (27.0-31.2); Mean Corpuscular Volume 96.7 fl (80-94); Mean Platelet Volume 7.4 fl (7.4-10.4); Monocytes # 0.8 K/mm3 (0.1-1.0); Monocytes % 11.2 % (1.7-9.3); Neutrophils # 5.2 K/mm3 (1.8-7.8); Neutrophils % 69.2 % (37.0-80.0); Platelet Count 310 K/mm3 (142-424); Red Blood Count 4.62 M/mm3 (4.60-6.20); Red Cell Distribution Width 13.4 % (11.5-17.5); White Blood Count 7.4 K/mm3 (4.8-10.8)
--- NOTE | 2022-05-14 07:18 | PC.NURSE ---
Pt reports he sees Dr. Enciso- Oncology- at [facility]. States he last saw him 2 years ago and was told I am in remission .
--- NOTE | 2022-05-14 07:34 | HMH.EDCP ---
Discharge Plan Disposition Patient Disposition: Home, Self-Care Prescriptions Prescriptions: New prednisone [prednisone] 20 mg tablet 20 mg PO BID Qty: 10 0RF No Action azithromycin 250 mg tablet 250 mg PO DAILY metoprolol succinate [Toprol XL] 25 mg tablet extended release 24 hr 25 mg PO DAILY lorazepam 1 MG tablet 1 mg PO TID aspirin 81 MG tablet,delayed release (DR/EC) 81 mg PO DAILY pantoprazole 40 MG tablet,delayed release (DR/EC) 40 mg PO HS Referrals Follow up/Referrals: Carlos Marcus MD [Primary Care Provider] - See instructions Clinical Impressions Clinical Impression: Bronchitis, Pleurisy Instructions Patient Instructions: DI for Acute Bronchitis Discharge ED Provider: Neri (ED),Devin Graves Chest Pain HPI General Chief Complaint: Chest Pain Stated Complaint: chest pain Time Seen by Provider: 05/14/22 07:00 Mode of Arrival: Family Vehicle Source of Information: Patient, Spouse and Medical Record Limitations: No Limitations Description of Symptoms (Recalled from ER Triage Doc. by RN): Pt c/o SOA, dry crough, and R sided and midsternal chest pain with coughing and movement that began about 3 days ago. States he went to his PCP (Amrit) on and was told nothing is wrong but had a Zpack prescribed. States he is getting weaker and feels my breathing is getting worse . States the SOA worsens when he lays down & exertion. 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 He has 1 coronary stent and pacemaker in place. He does report a hx of lung cancer 2 years ago but no longer needs chemotherapy. Pt reports I am worried it has come back . 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 - finished z vero today - has hx of lunf cancer and cad - feels weaker in general and has sob with exertion complaint: chest pain Onset (ago): day(s) Duration: intermittent Pain location: right chest Severity: moderate Quality: sharp Pain radiation: none Exacerbating factors: exertion and other (cough ) Associated symptoms: dyspnea Risk Factors for CAD: Family Hx of CAD Treatments prior to or on arrival for Cardiac Chest Pain: none LORRAINE Score for Non-Stemi Age of Patient: 80-89 years old Heart Rate: 70-89 bpm Systolic Blood Pressure: 120-139 mmhg Serum Creatinine: 0.80-1.19 mg/dl CHF [place] Class: I-No CHF Other Risk Factors: None Non-Stemi Risk Score: 141 Risk Stratification: [id number] = High Risk Related Data Prior Cardiac Testing/Procedures: Stenting Home Medications Medication Instructions Recorded Confirmed aspirin 81 mg tablet,delayed 81 mg PO DAILY CIRCULATION 07/04/20 05/14/22 release pantoprazole 40 mg tablet,delayed 40 mg PO HS GERD 07/04/20 05/14/22 release azithromycin 250 mg tablet 250 mg PO DAILY antibiotic 05/14/22 05/14/22 lorazepam 1 mg tablet 1 mg PO TID Anxiety 05/14/22 05/14/22 metoprolol succinate 25 mg 25 mg PO DAILY heart rate 05/14/22 05/14/22 tablet,extended release 24 hr (Toprol XL) Previous Rx's Medication Instructions Recorded prednisone 20 mg tablet 20 mg PO BID #10 tabs 05/14/22 Allergies Allergy/AdvReac Type Severity Reaction Status Date / Time No Known Drug Allergies Allergy Unknown Verified 03/10/22 14:15 [NO KNOWN DRUG ALLERGIES] [facility] Disclaimer: The information contained in this section may have been updated after the patient was seen, as this information can be updated by other users. Medical History (Updated 05/14/22 @ 09:40 by Devin He (ED)MD) Abnormal cardiovascular stress test Atypical angina Chest pain Fall Nonadherence to medication Palpitations Recent myocardial infarction Social History Smoking Status: Never smoker alcohol intake: never substance use type: denies use current occupational status: retired Travel in the last 8 weeks: [place]
[2022-05-14 07:36] LABS: Alanine Aminotransferase 39 U/L (12-78); Albumin Level 3.8 g/dl (3.5-5.0); Albumin/Globulin Ratio 1.1 (1.1-1.8); Alkaline Phosphatase 107 U/L (38-126); Aspartate Amino Transferase 41 U/L (17-59); Bilirubin,Total 0.8 mg/dl (0.2-1.3); Blood Urea Nitrogen 19 mg/dl (9-20); Calcium 8.8 mg/dl (8.4-10.2); Carbon Dioxide 33 mmol/L (22.0-30.0); Chloride 101 mmol/L (98-107); Creatinine Clearance Estimated 58 mL/min (50-200); Estimated Glomerular Filt Rate 64 ml/min (>60); GFR (African American) 77 ML/MIN (>60); Globulin 3.6 g/dL (1.3-3.2); Glucose 91 mg/dl (74-100); Sodium 136 mmol/L (136-145); Total Protein,Serum 7.4 g/dl (6.3-8.2)
[2022-05-14 07:41] LABS: C-Reactive Protein 7.7 mg/L (0-4)
--- NOTE | 2022-05-14 07:45 | PC.NURSE ---
Cedrick RN @ [facility]
[2022-05-14 07:50] LABS: NT Pro Brain Natriuretic Pep. 531 pg/mL (0-450)
[2022-05-14 07:52] LABS: Troponin I < 0.01 ng/ml (0.00-0.034)
--- NOTE | 2022-05-14 07:53 | PC.NURSE ---
pt being transported to radiology
--- NOTE | 2022-05-14 07:53 | PC.NURSE ---
pt going to ct
[2022-05-14 07:55] LABS: Procalcitonin 0.076 ng/mL (0.0-2.0)
--- NOTE | 2022-05-14 08:06 | PC.NURSE ---
pt arrived back to room
--- NOTE | 2022-05-14 08:06 | PC.NURSE ---
pt returned from CT
[2022-05-14 08:23] LABS: Lactic Acid 0.9 mmol/L (0.7-2.1)
--- NOTE | 2022-05-14 08:25 | PC.NURSE ---
er at bedside
--- NOTE | 2022-05-14 09:18 | PC.NURSE ---
Cedrick RN @[facility]
--- NOTE | 2022-05-14 09:27 | PC.NURSE ---
Pt instructed on use of Albuterol MDI and aerochamber.
[2022-05-14 09:34] LABS: Erythrocyte Sedimentation Rate 84 mm/hr (0-20)
--- NOTE | 2022-05-14 09:49 | PC.NURSE ---
alayna going over discharge with pt
== END 2022-05-14 10:12 | disposition home or self-care (01) ==
PROVIDERS: Emergency Provider Emergency Medicine; PCP Family Medicine
DX: J20.9 Acute bronchitis, unspecified (principal); R09.1 Pleurisy; R07.89 Other chest pain; I25.2 Old myocardial infarction; Z86.79 Personal history of other diseases of the circulatory system; Z20.822 Contact with and (suspected) exposure to COVID-19
CPT/HCPCS: 71045; 71275; 80053; 83605; 83880; 84145; 84484; 85025; 85651; 86140; 87040; 93005; 96361; 96374; 99285; C9803; Q9967; U0003; U0005

== ENCOUNTER → 2022-05-24 16:11 | Outpatient (CLI) | payer MEDICARE, OTHER, SELFPAY ==
[2022-05-24 18:01] LABS: Chloride 105 mmol/L (98-107); Sodium 139 mmol/L (136-145)
[2022-05-24 18:03] LABS: Alanine Aminotransferase 34 U/L (12-78); Aspartate Amino Transferase 34 U/L (17-59); Blood Urea Nitrogen 23 mg/dl (9-20); Estimated Glomerular Filt Rate 64 ml/min (>60); GFR (African American) 77 ML/MIN (>60); Potassium 4.8 mmoL/L (3.5-5.1)
[2022-05-24 18:04] LABS: Albumin Level 3.5 g/dl (3.5-5.0); Albumin/Globulin Ratio 1.2 (1.1-1.8); Alkaline Phosphatase 96 U/L (38-126); Anion Gap 8.8 mEq/L (5-15); Bilirubin,Total 0.8 mg/dl (0.2-1.3); Calcium 8.7 mg/dl (8.4-10.2); Carbon Dioxide 30 mmol/L (22.0-30.0); Glucose 91 mg/dl (74-100); Total Protein,Serum 6.5 g/dl (6.3-8.2)
== END ==
PROVIDERS: PCP Family Medicine; Visit Provider Family Medicine
DX: J18.9 Pneumonia, unspecified organism (principal)
CPT/HCPCS: 36415; 80053

== ENCOUNTER → 2022-05-26 13:26 | Outpatient (CLI) | payer MEDICARE, OTHER, SELFPAY ==
--- NOTE | 2022-05-26 13:29 | CT_ITS ---
FINAL REPORT TECHNIQUE: The patient was injected with IV contrast. Axial images were obtained of the chest by computed tomography. Precontrast images were also obtained. This study was performed with techniques to keep radiation doses as low as reasonably achievable (ALARA). Individualized dose reduction techniques using automated exposure control or adjustment of mA and/or kV according to the patient's size were employed. CLINICAL HISTORY: LUNG INFECTION COMPARISON: CTA chest 05/14/2022 FINDINGS: CT OF THE CHEST WITH AND WITHOUT CONTRAST: Left subclavian pacemaker is noted. There is no axillary adenopathy. There is no mediastinal or hilar adenopathy. Heart size is normal. There is no pericardial or pleural effusion identified. Mild scarring. Persistent but improved bibasilar opacities may represent improved atelectasis or pneumonia. Limited images of the upper abdomen demonstrate post cholecystectomy. Bilateral renal masses cannot be accurately characterized but may represent cysts and parapelvic cysts. IMPRESSION: Improved bibasilar opacities. Reviewed, Interpreted and Dictated by Jose Pedersen III, MD Transcribed by Karen Lowe Authenticated and [facility]
== END ==
PROVIDERS: PCP Family Medicine; Visit Provider Family Medicine
DX: J18.9 Pneumonia, unspecified organism (principal)
CPT/HCPCS: 71270; Q9967

== ENCOUNTER 2022-06-30 08:19 | Emergency (ER) | payer MEDICARE, OTHER, SELFPAY ==
--- NOTE | 2022-06-30 08:25 | PC.NURSE ---
Dr. Britt at
--- NOTE | 2022-06-30 08:32 | HMH.EDLOEX ---
Discharge Plan Disposition Patient Disposition: Home, Self-Care Prescriptions Prescriptions: New tramadol 50 mg tablet 50 mg PO Q8H PRN (Reason: pain) Qty: 14 0RF No Action azithromycin 250 mg tablet 250 mg PO DAILY metoprolol succinate [Toprol XL] 25 mg tablet extended release 24 hr 25 mg PO DAILY lorazepam 1 MG tablet 1 mg PO TID prednisone [prednisone] 20 mg tablet 20 mg PO BID Qty: 10 0RF aspirin 81 MG tablet,delayed release (DR/EC) 81 mg PO DAILY pantoprazole 40 MG tablet,delayed release (DR/EC) 40 mg PO HS Referrals Follow up/Referrals: Carlos Marcus MD [Primary Care Provider] - See instructions Activity Restrictions/Add. Instructions Additional Instructions/Restrictions: Please follow-up with your primary care doctor in about 5 days if you do not feel any improvement. Return to the emergency department immediately if you feel worse in any way. Your x-rays today did not show any fractures or dislocations. You do have some arthritis in your knee. I believe that you may have torn the calf muscle in the back of your leg. This will take a long time to heal. It is quite painful. You have been prescribed Ultram. This is a controlled medication which can cause addiction. You can take Tylenol in addition to this prescription. Clinical Impressions Clinical Impression: Gastrocnemius muscle tear Qualifiers: Encounter type: initial encounter Laterality: left Qualified Code(s): S86.112A - Strain of other muscle(s) and tendon(s) of posterior muscle group at lower leg level, left leg, initial encounter Instructions Patient Instructions: DI for Calf Muscle Strain Discharge ED Provider: Gadiel Britt Lower Extremity Injury HPI General Chief Complaint: PAIN Stated Complaint: Fall@Home 06/02 LT leg pain Time Seen by Provider: 06/30/22 08:33 Mode of Arrival: Ambulatory History of Present Illness HPI Narrative: The patient presents to the emergency department complaining of left lower extremity pain for the last 4 weeks. He missed a step 4 weeks ago and fell. He felt a pop. His pain is behind his left knee down to the ankle on the posterior aspect of the leg. He states that it is difficult to walk secondary to the pain. He denies any neuro deficits. He denies any other injuries. Related Data Home Medications Medication Instructions Recorded Confirmed aspirin 81 mg tablet,delayed 81 mg PO DAILY CIRCULATION 07/04/20 05/14/22 release pantoprazole 40 mg tablet,delayed 40 mg PO HS GERD 07/04/20 05/14/22 release azithromycin 250 mg tablet 250 mg PO DAILY antibiotic 05/14/22 05/14/22 lorazepam 1 mg tablet 1 mg PO TID Anxiety 05/14/22 05/14/22 metoprolol succinate 25 mg 25 mg PO DAILY heart rate 05/14/22 05/14/22 tablet,extended release 24 hr (Toprol XL) Previous Rx's Medication Instructions Recorded prednisone 20 mg tablet 20 mg PO BID #10 tabs 05/14/22 tramadol 50 mg tablet 50 mg PO Q8H PRN pain #14 tabs 06/30/22 Allergies Allergy/AdvReac Type Severity Reaction Status Date / Time oxycodone AdvReac Agitated Verified 06/30/22 08:48 PFSH PFS Disclaimer: The information contained in this section may have been updated after the patient was seen, as this information can be updated by other users. Medical History (Updated 06/30/22 @ 10:42 by Gadiel Britt MD) Abnormal cardiovascular stress test Atypical angina Chest pain Fall Nonadherence to medication Palpitations Recent myocardial infarction Social History Smoking Status: Never smoker alcohol intake: never substance use type: denies use current occupational status: retired Travel in the last 8 weeks: Inside the [place] household members: spouse housing: house current occupational exposures/hazards: No caffeine: Yes ROS Obtained: Yes All systems reviewed & no additional complaints except as documented
[2022-06-30 08:33] VITALS: BP 140/68; PULSE 79; RESP 16; TEMP 36.4; O2SAT 95; BMI 24.4
--- NOTE | 2022-06-30 08:35 | XR_ITS ---
FINAL REPORT CLINICAL HISTORY: Left tib/fib pain, injury COMPARISON: None FINDINGS: Three views of the left tib-fib were obtained. There is no acute fracture or dislocation. There is partial ossification of the internal osseous membrane inferiorly. The joint spaces are intact. Mild vascular calcifications are noted. IMPRESSION: Partial ossification internal osseous membrane. Reviewed, Interpreted and Dictated by Jose Pedersen III, MD Transcribed by Karen Lowe Authenticated and [facility]
--- NOTE | 2022-06-30 08:35 | XR_ITS ---
FINAL REPORT CLINICAL HISTORY: Left knee pain, injury COMPARISON: None FINDINGS: Three views of the left knee reveal no evidence of fracture or dislocation. The bony alignment is normal. There is mild degenerative change. There is no evidence of joint effusion. No localized soft tissue abnormality is seen. IMPRESSION: Degenerative change with no acute abnormality identified. Reviewed, Interpreted and Dictated by Jose Pedersen III, MD Transcribed by Karen Lowe Authenticated and . [facility]
--- NOTE | 2022-06-30 08:38 | PC.NURSE ---
Family at BS
--- NOTE | 2022-06-30 09:00 | PC.NURSE ---
pt arrived to room from xray
[2022-06-30 09:02] VITALS: BP 125/73; PULSE 80; RESP 16; O2SAT 96
--- NOTE | 2022-06-30 09:23 | PC.NURSE ---
Rounded on patient; call light within reach
[2022-06-30 09:30] VITALS: BP 133/71; PULSE 82; RESP 16; O2SAT 95
--- NOTE | 2022-06-30 09:43 | PC.NURSE ---
ABDIAZIZ Peters rounded on patient. Call light within reach. Pt requesting no needs at this time. Family at BS
--- NOTE | 2022-06-30 09:50 | PC.NURSE ---
rounded on pt no complaints at this time, at bs
--- NOTE | 2022-06-30 09:56 | PC.NURSE ---
Radiology called requesting preliminary/final results.
[2022-06-30 10:00] VITALS: BP 126/70; PULSE 74; O2SAT 95
[2022-06-30 10:30] VITALS: BP 131/73; PULSE 72; O2SAT 94
--- NOTE | 2022-06-30 10:43 | PC.NURSE ---
ABDIAZIZ Peters rounding on patient. Family at BS. Call light within reach. No other needs at this time.
[2022-06-30 11:10] VITALS: BP 140/68; PULSE 79; RESP 16; TEMP 36.4; O2SAT 95
== END 2022-06-30 11:13 | disposition home or self-care (01) ==
PROVIDERS: Emergency Provider Emergency Medicine; PCP Family Medicine
DX: S86.112A Strain of other muscle(s) and tendon(s) of posterior muscle group at lower leg level, left leg, initial encounter (principal); W19.XXXA Unspecified fall, initial encounter
CPT/HCPCS: 73562; 73590; 99283; 99284

== ENCOUNTER 2022-09-12 10:09 | Emergency (ER) | payer MEDICARE, OTHER, SELFPAY ==
[2022-09-12] VITALS (7 sets, daily range): BP systolic 124–145; BP diastolic 57–78; PULSE 73–86; RESP 16–22; TEMP 36.7; O2SAT 92–97; BMI 24.8
--- NOTE | 2022-09-12 10:09 | ECG_ITS ---
APPROVED REPORT Exam: Resting ECG HR:84 bpm ECG Measurements Heart Rate 84 AXES KS 208 P 68 QRSd 158 QRS -24 QT 393 T 144 QTc 434 Conclusion SINUS RHYTHM LEFT BUNDLE BRANCH BLOCK [120+ ms QRS DURATION, 80+ ms Q/S IN V1/V2, 85+ ms R IN I/aVL/V5/V6] ABNORMAL ECG UNCONFIRMED REPORT Electronically signed by : Adiel Reyes MD 09/12/2022 20:26:59
--- NOTE | 2022-09-12 10:23 | CT_ITS ---
PROCEDURE INFORMATION: Exam: CT Abdomen And Pelvis Without Contrast Exam date and time: 09/12/2022 10:43 AM Age: 86 years old Clinical indication: Abdominal pain; Additional info: Abd pain TECHNIQUE: Imaging protocol: Computed tomography of the abdomen and pelvis without contrast. Radiation optimization: All CT scans at this facility use at least one of these dose optimization techniques: automated exposure control; mA and/or kV adjustment per patient size (includes targeted exams where dose is matched to clinical indication); or iterative reconstruction. REPORTING DATA: Count of CT and Cardiac NM exams in prior 12 months: This patient has received 2 known CTs and 0 known cardiac nuclear medicine studies in the 12 months prior to the current study. COMPARISON: CT ABDOMEN PELVIS W CON 09/01/2020 10:39 AM, 05/10/2020 FINDINGS: Mediastinal space: Previously demonstrated pronounced thickening and distortion of the lumen in the distal esophagus consistent with history of esophageal carcinoma is not as pronounced on the current study. Prior para esophageal lymph node demonstrated on the 05/10/2020 examination is not demonstrated on the current study. Liver: Hepatic steatosis Gallbladder and bile ducts: Cholecystectomy. Pancreas: Normal. No ductal dilation. Spleen: Splenic granulomas Adrenal glands: Normal. No mass. Kidneys and ureters: Bilateral extrarenal pelvis. Persistent left renal cysts. Slight increase in size in a posteromedial cyst. Stomach and bowel: Unremarkable. No obstruction. No mucosal thickening. Appendix: No evidence of appendicitis. Intraperitoneal space: Unremarkable. No free air. No significant fluid collection. Vasculature: Scattered regions of atherosclerotic vascular calcification within the abdominal aorta and common iliac arteries. Lymph nodes: See Mediastinal space finding. Urinary bladder: Unremarkable as visualized. Reproductive: Unremarkable as visualized. Bones/joints: Lumbar spondylosis. Soft tissues: Small bilateral fat filled inguinal hernias. IMPRESSION: 1. No evidence of acute abnormality. 2. Decreased in the degree of thickening of the distal esophagus. Previously demonstrated enlarged paraesophageal lymph node is no longer present. Clinically correlate.
--- NOTE | 2022-09-12 10:23 | CT_ITS ---
PROCEDURE INFORMATION: Exam: CT Chest Without Contrast; Diagnostic Exam date and time: 09/12/2022 10:40 AM Age: 86 years old Clinical indication: Pain; Chest pressure; Additional info: Chest pain and hiccups TECHNIQUE: Imaging protocol: Diagnostic computed tomography of the chest without contrast. Radiation optimization: All CT scans at this facility use at least one of these dose optimization techniques: automated exposure control; mA and/or kV adjustment per patient size (includes targeted exams where dose is matched to clinical indication); or iterative reconstruction. REPORTING DATA: Count of CT and Cardiac NM exams in prior 12 months: This patient has received 2 known CTs and 0 known cardiac nuclear medicine studies in the 12 months prior to the current study. COMPARISON: CT CHEST WO/W CON 05/26/2022 1:37 PM FINDINGS: Tubes, catheters and devices: Pacemaker device. Lungs: Focal region of consolidation right lung base. Regions of atelectasis demonstrated in the right middle lobe. Lower lobe consolidation and small pleural effusion. Small left pleural effusion with regions of subsegmental atelectasis. Persistent regions of bronchiectasis and mucous plugging. Pleural spaces: See Lungs finding. Heart: Unremarkable. No cardiomegaly. No pericardial effusion. Lymph nodes: Unremarkable. No enlarged lymph nodes. Vasculature: Regions of atherosclerotic vascular calcification involving the aortic arch. Coronary artery calcification. Liver: Hepatic steatosis Gallbladder and bile ducts: Cholecystectomy. Spleen: Splenic granulomas Bones/joints: Spondylitic changes again demonstrated in the thoracic spine. Soft tissues: Unremarkable. Other findings: Prior granulomatous disease. IMPRESSION: 1. Interim development of bibasilar and right middle lobe atelectasis with superimposed right lower lobe consolidation. 2. Small right greater than left bilateral pleural effusions. Findings new. 3. Bronchiectasis with mucous plugging.
--- NOTE | 2022-09-12 10:27 | HMH.EDGENADL ---
Discharge Plan Disposition Patient Disposition: Home, Self-Care Condition: Fair Prescriptions Prescriptions: New azithromycin [Zithromax Z-Cirilo] 250 mg tablet See Rx Instructions .ROUTE .COMPLEX Qty: 6 0RF Rx Instructions: For 250 mg dose pack: take 500 mg today (day 1), then 250 mg for 4 days (days 2-5) prednisone 50 mg tablet 50 mg PO DAILY 5 Days Qty: 5 0RF No Action azithromycin 250 mg tablet 250 mg PO DAILY metoprolol succinate [Toprol XL] 25 mg tablet extended release 24 hr 25 mg PO DAILY lorazepam 1 MG tablet 1 mg PO TID prednisone [prednisone] 20 mg tablet 20 mg PO BID Qty: 10 0RF tramadol 50 mg tablet 50 mg PO Q8H PRN (Reason: pain) Qty: 14 0RF aspirin 81 MG tablet,delayed release (DR/EC) 81 mg PO DAILY pantoprazole 40 MG tablet,delayed release (DR/EC) 40 mg PO HS Referrals Follow up/Referrals: Carlos Marcus MD [Primary Care Provider] - See instructions Clinical Impressions Clinical Impression: Pneumonia Qualifiers: Pneumonia type: due to unspecified organism Laterality: right Lung location: lower lobe of lung Qualified Code(s): J18.9 - Pneumonia, unspecified organism Instructions Patient Instructions: Pneumonia-Adult Discharge ED Provider: Daniel Duenas Adult HPI General Chief complaint: Chest Pain Stated complaint: chest pain Time Seen by Provider: 09/12/22 11:03 History of Present Illness HPI narrative: This is a 86-year-old male with a history of metastatic esophageal cancer also coronary artery disease who presents with 3 days of intermittent fevers chills and right-sided chest pain while hiccuping. Patient states that when he does not hiccup he does not have any pain. The states that the temperature of the patient was as high as 103 Fahrenheit. No cough no runny nose questionable vomiting no diarrhea last bowel movement was 3 to 4 days ago. No dysuria pyuria hematuria. Between the patient and his the story keeps changing and is very difficult to get a straight answer most of the time. Related Data Home Medications Medication Instructions Recorded Confirmed aspirin 81 mg tablet,delayed 81 mg PO DAILY CIRCULATION 07/04/20 09/04/22 release pantoprazole 40 mg tablet,delayed 40 mg PO HS GERD 07/04/20 09/04/22 release azithromycin 250 mg tablet 250 mg PO DAILY antibiotic 05/14/22 09/04/22 lorazepam 1 mg tablet 1 mg PO TID Anxiety 05/14/22 09/04/22 metoprolol succinate 25 mg 25 mg PO DAILY heart rate 05/14/22 09/04/22 tablet,extended release 24 hr (Toprol XL) Previous Rx's Medication Instructions Recorded prednisone 20 mg tablet 20 mg PO BID #10 tabs 05/14/22 tramadol 50 mg tablet 50 mg PO Q8H PRN pain #14 tabs 06/30/22 azithromycin 250 mg tablet See Rx Instructions PO .COMPLEX #6 09/12/22 (Zithromax Z-Cirilo) tabs prednisone 50 mg tablet 50 mg PO DAILY 5 days #5 tabs 09/12/22 Allergies Allergy/AdvReac Type Severity Reaction Status Date / Time oxycodone AdvReac Agitated Verified 09/04/22 10:58 [facility] Disclaimer: The information contained in this section may have been updated after the patient was seen, as this information can be updated by other users. Medical History Abnormal cardiovascular stress test Atypical angina Chest pain Fall Nonadherence to medication Palpitations Recent myocardial infarction Social History Smoking Status: Never smoker alcohol intake: never substance use type: denies use current occupational status: retired Travel in the last 8 weeks: Inside the [place] household members: spouse housing: house current occupational exposures/hazards: No caffeine: Yes ROS Obtained: Yes All systems reviewed & no additional complaints except as documented Skin no rash or lesions HEENT no runny nose sore throat Pulmonary no cough or short
[2022-09-12 10:39] LABS: Basophils % 0.2 % (0.1-2.0); Eosinophils # 0.1 K/mm3 (0.0-0.4); Eosinophils % 0.9 % (0.1-12.0); Hemoglobin 13.3 g/dL (14.1-18.0); Lymphocytes # 1.4 K/mm3 (0.7-4.5); Lymphocytes % 16.5 % (10-50); Mean Corpuscular HGB Conc 32.4 g/dL (31.8-35.4); Mean Corpuscular Hemoglobin 30.5 pg (27.0-31.2); Mean Corpuscular Volume 94.1 fl (80-94); Mean Platelet Volume 7.6 fl (7.4-10.4); Monocytes # 0.8 K/mm3 (0.1-1.0); Monocytes % 9.7 % (1.7-9.3); Neutrophils # 6.3 K/mm3 (1.8-7.8); Neutrophils % 72.8 % (37.0-80.0); Platelet Count 218 K/mm3 (142-424); Red Blood Count 4.36 M/mm3 (4.60-6.20); Red Cell Distribution Width 12.7 % (11.5-17.5); White Blood Count 8.7 K/mm3 (4.8-10.8)
[2022-09-12 10:43] LABS: Chloride 100 mmol/L (98-107); Sodium 136 mmol/L (136-145)
[2022-09-12 10:43] LABS: Coronavirus 19, PCR Not Detected (NotDetected); Influenza A, PCR Not Detected (NotDetected); Influenza B, PCR Not Detected (NotDetected)
[2022-09-12 10:44] LABS: Potassium 3.8 mmoL/L (3.5-5.1)
[2022-09-12 10:45] LABS: Creatine Kinase 30 U/L (55-170)
[2022-09-12 10:46] LABS: Alanine Aminotransferase 22 U/L (12-78); Albumin Level 3.3 g/dl (3.5-5.0); Albumin/Globulin Ratio 0.9 (1.1-1.8); Alkaline Phosphatase 91 U/L (38-126); Anion Gap 8.8 mEq/L (5-15); Aspartate Amino Transferase 28 U/L (17-59); Bilirubin,Total 1.1 mg/dl (0.2-1.3); Blood Urea Nitrogen 18 mg/dl (9-20); Carbon Dioxide 31 mmol/L (22.0-30.0); Creatinine Clearance Estimated 50 mL/min (50-200); Estimated Glomerular Filt Rate 53 ml/min (>60); GFR (African American) 64 ML/MIN (>60); Globulin 3.7 g/dL (1.3-3.2); Lipase 29 U/L (23-300)
[2022-09-12 10:47] LABS: Calcium 8.3 mg/dl (8.4-10.2); Glucose 91 mg/dl (74-100)
[2022-09-12 10:56] LABS: CKMB Relative Index 1.3 U/L (0-4.0); Creatine Kinase MB 0.4 ng/ml (0.0-2.03)
[2022-09-12 10:57] LABS: NT Pro Brain Natriuretic Pep. 1080 pg/mL (0-450)
[2022-09-12 10:57] LABS: Lactic Acid 0.9 mmol/L (0.7-2.1)
[2022-09-12 11:02] LABS: Troponin I 0.01 ng/ml (0.00-0.034); Troponin I < 0.01 ng/ml (0.00-0.034)
--- NOTE | 2022-09-12 11:10 | PC.NURSE ---
gaurang rounded on pts
== END 2022-09-12 13:08 | disposition home or self-care (01) ==
PROVIDERS: Emergency Provider Emergency Medicine; PCP Family Medicine
DX: R07.9 Chest pain, unspecified (principal); J18.9 Pneumonia, unspecified organism; I25.119 Atherosclerotic heart disease of native coronary artery with unspecified angina pectoris; C15.9 Malignant neoplasm of esophagus, unspecified
CPT/HCPCS: 71250; 74176; 80053; 82550; 82553; 83605; 83690; 83880; 84484; 85025; 87040; 87077; 87186; 87636; 93005; 96365; 96375; 99285; J0456; J0696; J2405

== ENCOUNTER → 2022-09-28 09:07 | Outpatient (CLI) | payer MEDICARE, OTHER, SELFPAY | PROVIDERS: PCP Family Medicine; Visit Provider Internal Medicine | DX: I50.1 Left ventricular failure, unspecified (principal) | CPT/HCPCS: 93306 ==

== ENCOUNTER → 2022-10-19 06:29 | Outpatient (CLI) | payer MEDICARE, OTHER, SELFPAY ==
--- NOTE | 2022-10-19 | CA_ITS ---
APPROVED REPORT Exam: Pharmacologic Technologist: Angela Kellogg, Ht: 6 ft 0 in Wt: 179 lbs BSA: 2.03 m2 HR: 70 bpm BP: 147/75 mmHg Rhythm: V-paced rhythm Medical History Medications: Lorazepam,,,,, Aspirin,,,,, Metoprolol Succinate,,,,, Tramadol,,,,, Pantroprazole,,,,, Stress Test Details Test: LEXISCAN HR Resting HR: 70 bpm Max Heart Rate (APMHR): 136 bpm Max HR Achieved: 74 bpm Target HR (85% APMHR): 116 bpm % of APMHR: 54 Recovery HR: 73 bpm BP Resting BP: 147/75 mmHg Max BP: 147/75 mmHg Recovery BP: 137.0/70.0 mmHg ECG Resting ECG: V-paced rhythm Stress ECG: No change Arrhythmia: PVCs Clinical Exercise duration: 04:00 min Highest Stage Achieved: Exercise capacity: n/a METs Stress ECG Conclusion During lexiscan pt experinced SOA and headache. No CP noted. Occasional PVC noted. No significant ST changes. Non diagnostic lexiscan stress due to V-paced rhythm. Myoview images reported separately. Test Summary REST . . . . . . . Sitting REST . . . . . . . Sitting REST 05:55 . . 70 . 147/ 75 . . Stage 1 01:00 . . 70 . . . . Stage 2 01:00 . . 70 . 128/ 60 . . Stage 3 01:00 . . 70 . 142/ 61 . . Stage 4 01:00 . . 70 . . . Stop exercise at 04:00 RECOVERY 01:00 . . 71 . . . . RECOVERY 02:00 . . 70 . 137/ 70 . . RECOVERY 03:00 . . 70 . 137/ 70 . . RECOVERY 03:40 . . 70 . 144/ 69 . . Electronically signed by : Cici Garza, 10/21/2022 17:33:50
--- NOTE | 2022-10-19 06:33 | NM_ITS ---
APPROVED REPORT Exam: Nuclear Stress Test Indication: .soa..palpitations..fatigue Patient Location: Outpatient Stress Tech: Angela MORRIS Tech:Nora Brewer RAMIROSunil RT(R)(N) Ht: 6 ft 0 in Wt: 179 lbs HR: 70 bpm BP: 147/75 mmHg BSA: 2.03 m2 Rhythm: V-paced rhythm TID: 1.06 History: soa..palpitations..fatigue Procedure: Patient received 0.4 mg of intravenous Lexiscan, resting heart rate 70 bpm, resting blood pressure 147/75 mmHg, with Lexiscan maximum heart rate achieved was 74 bpm which is 85 % of the maximum predicted heart rate and blood pressure was 147/75 mmHg. With Lexiscan, patient denied any complaint of chest pain. Cardiac Stress and Resting SPECT Images: Cardiac Stress and Resting SPECT images were obtained using technetium 99m Myoview 31.9 mCi stress and 10.55 mCi at rest. Resting and stress imaging in both supine and prone positions demonstrate a large-sized, severe, fixed perfusion defects in the inferior and inferoseptal LV rangel. There is also a large-sized, severe, predominantly fixed perfusion defect in the anterior and anteroseptal LV rangel with some regions of reversibility. Gated imaging demonstrates moderate reduction in global LV systolic function. There is severe hypokinesis in the inferior, inferoseptal, and anterior LV rangel. LVEF is calculated at 35%. Conclusion: Large-sized, severe, fixed perfusion defects in the inferior and inferoseptal LV rangel. There is also a large-sized, severe, predominantly fixed perfusion defect in the anterior and anteroseptal LV rangel with some regions of reversibility. Gated imaging demonstrates moderate reduction in global LV systolic function. There is severe hypokinesis in the inferior, inferoseptal, and anterior LV rangel. LVEF is calculated at 35%. Electronically signed by : Cici Garza, 10/21/2022 17:38:26
[2022-10-19 10:36] LABS: Basophils % 0.6 % (0.1-2.0); Eosinophils # 0.2 K/mm3 (0.0-0.4); Eosinophils % 3.1 % (0.1-12.0); Hematocrit 45.8 % (42.0-52.0); Lymphocytes # 1.1 K/mm3 (0.7-4.5); Lymphocytes % 17.1 % (10-50); Mean Corpuscular HGB Conc 32.8 g/dL (31.8-35.4); Mean Corpuscular Hemoglobin 30.7 pg (27.0-31.2); Mean Corpuscular Volume 93.7 fl (80-94); Mean Platelet Volume 8.2 fl (7.4-10.4); Monocytes # 0.5 K/mm3 (0.1-1.0); Monocytes % 7.8 % (1.7-9.3); Neutrophils # 4.7 K/mm3 (1.8-7.8); Neutrophils % 71.3 % (37.0-80.0); Platelet Count 215 K/mm3 (142-424); Red Blood Count 4.89 M/mm3 (4.60-6.20); Red Cell Distribution Width 13.2 % (11.5-17.5); White Blood Count 6.6 K/mm3 (4.8-10.8)
[2022-10-19 11:08] LABS: Alanine Aminotransferase 24 U/L (12-78); Albumin Level 3.9 g/dl (3.5-5.0); Alkaline Phosphatase 104 U/L (38-126); Aspartate Amino Transferase 34 U/L (17-59); Bilirubin,Indirect 0.6 mg/dL (0.0-0.9); Bilirubin,Total 0.6 mg/dl (0.2-1.3); Bilirubin,Unconjugated 0.8 mg/dL (0.0-1.1); Blood Urea Nitrogen 17 mg/dl (9-20); Calcium 9.1 mg/dl (8.4-10.2); Carbon Dioxide 26 mmol/L (22.0-30.0); Chloride 106 mmol/L (98-107); Chol/HDL Ratio 7.9 (1-3.5); Cholesterol 174 mg/dl (140-200); Estimated Glomerular Filt Rate 64 ml/min (>60); GFR (African American) 77 ML/MIN (>60); Glucose 105 mg/dl (74-100); HDL Cholesterol 22 mg/dl (40-60); Sodium 140 mmol/L (136-145); Total Protein,Serum 7.3 g/dl (6.3-8.2); Triglycerides 138 mg/dl (30-150); VLDL Cholesterol 28 mg/dL (0-40)
[2022-10-19 11:19] LABS: Direct LDL Cholesterol 111.43 mg/dL (100-129)
[2022-10-19 11:25] LABS: Free T4 (Free Thyroxine) 0.77 ng/dl (0.78-2.19)
[2022-10-19 11:39] LABS: Thyroid Stimulating Hormone 2.83 uIU/mL (0.465-4.68)
[2022-10-19 11:58] LABS: Iron 128 ug/dL (49-181)
[2022-10-19 12:07] LABS: Total Iron Binding Capacity 298 ug/dL (261-462)
== END ==
PROVIDERS: PCP Family Medicine; Visit Provider Internal Medicine
DX: R06.00 Dyspnea, unspecified; I25.10 Atherosclerotic heart disease of native coronary artery without angina pectoris; I42.8 Other cardiomyopathies; R00.2 Palpitations; I11.0 Hypertensive heart disease with heart failure; I50.22 Chronic systolic (congestive) heart failure; E11.9 Type 2 diabetes mellitus without complications; Z95.0 Presence of cardiac pacemaker
CPT/HCPCS: 36415; 78452; 80048; 80061; 80076; 83540; 83550; 84439; 84443; 85025; 93017; A9502; J2785

== ENCOUNTER 2022-11-03 08:37 | Day surgery (SDC) | payer MEDICARE, OTHER, SELFPAY ==
[2022-11-03] VITALS (10 sets, daily range): BP systolic 116–140; BP diastolic 61–71; PULSE 70–71; RESP 16–20; TEMP 36.6; O2SAT 90–100; BMI 23.2
--- NOTE | 2022-11-03 07:17 | IR_ITS ---
APPROVED REPORT Patient Location: Outpatient PROCEDURES Left heart catheterization Left ventriculogram Selective coronary angiogram INDICATION New onset cardiomyopathy, Abnormal Myoview Informed consent was obtained prior to the procedure. COMPLICATIONS None Estimated Blood Loss: Less than 10 mls TECHNIQUE One percent lidocaine used to anesthetize the right anterior aspect of the wrist. The right radial artery was accessed via the Seldinger technique. A 6 Yoruba sheath was placed in the right radial artery. 2.5 mg of Verapamil, 800 mcg of nitroglycerin, 1mg Lidocaine and 5000 U Heparin were given through the arterial sheath. The papa catheter was also used to perform left heart catheterization, left ventriculogram and selective coronary angiogram. At the end of the procedure the sheath was removed good hemostasis was achieved using Traclet band, patient was transferred to the postop holding area in stable condition. ANGIOGRAPHIC RESULTS The left main artery Normal The left anterior descending artery Proximally normal with mid vessel 30% stenosis The circumflex artery Dominant normal The right coronary artery Nondominant mild 10% luminal irregularities The RUELAS ventriculogram reveals Dilated ventricle with reduced ejection fraction estimated at 30 to 35% The left ventricular end-diastolic pressure 15 mmHg IMPRESSION Mild nonflow limiting coronary disease Cardiomyopathy most consistent with pacemaker induced Normal left ventricular end-diastolic pressure PLAN 1. Evaluate for pacemaker induced cardiomyopathy and consider BLEACH SUPERVISOR-P or BLEACH SUPERVISOR-D 2. Standard therapy for systolic heart failure Electronically signed by : Say Mccall MD 11/03/2022 10:06:23
[2022-11-03 09:13] LABS: Basophils % 0.3 % (0.1-2.0); Eosinophils # 0.3 K/mm3 (0.0-0.4); Eosinophils % 3.6 % (0.1-12.0); Hematocrit 43.5 % (42.0-52.0); Hemoglobin 14.6 g/dL (14.1-18.0); Lymphocytes # 1.2 K/mm3 (0.7-4.5); Lymphocytes % 16.5 % (10-50); Mean Corpuscular HGB Conc 33.5 g/dL (31.8-35.4); Mean Corpuscular Hemoglobin 31.5 pg (27.0-31.2); Mean Corpuscular Volume 94.1 fl (80-94); Mean Platelet Volume 7.8 fl (7.4-10.4); Monocytes # 0.5 K/mm3 (0.1-1.0); Monocytes % 7.6 % (1.7-9.3); Neutrophils # 5.1 K/mm3 (1.8-7.8); Neutrophils % 71.8 % (37.0-80.0); Platelet Count 242 K/mm3 (142-424); Red Blood Count 4.62 M/mm3 (4.60-6.20); Red Cell Distribution Width 13.4 % (11.5-17.5); White Blood Count 7.1 K/mm3 (4.8-10.8)
[2022-11-03 09:23] LABS: Chloride 106 mmol/L (98-107); Potassium 5.5 mmoL/L (3.5-5.1); Sodium 138 mmol/L (136-145)
[2022-11-03 09:25] LABS: Blood Urea Nitrogen 21 mg/dl (9-20); Creatinine Clearance Estimated 52 mL/min (50-200); Estimated Glomerular Filt Rate 58 ml/min (>60); GFR (African American) 70 ML/MIN (>60)
[2022-11-03 09:26] LABS: Anion Gap 13.5 mEq/L (5-15); Calcium 9.3 mg/dl (8.4-10.2); Carbon Dioxide 24 mmol/L (22.0-30.0); Glucose 96 mg/dl (74-100)
== END 2022-11-03 13:02 | disposition home or self-care (01) ==
PROVIDERS: PCP Family Medicine; Visit Provider Internal Medicine
DX: I11.0 Hypertensive heart disease with heart failure (principal); I25.118 Atherosclerotic heart disease of native coronary artery with other forms of angina pectoris; I42.9 Cardiomyopathy, unspecified; I50.22 Chronic systolic (congestive) heart failure; R06.00 Dyspnea, unspecified; R42 Dizziness and giddiness; R93.1 Abnormal findings on diagnostic imaging of heart and coronary circulation; R94.39 Abnormal result of other cardiovascular function study; Z95.0 Presence of cardiac pacemaker; Z79.899 Other long term (current) drug therapy
CPT/HCPCS: 80048; 85025; 93458; 99152; C1769; J1644; Q9967

== ENCOUNTER 2022-11-08 08:36 | Day surgery (SDC) | payer MEDICARE, OTHER, SELFPAY ==
[2022-11-08] VITALS (9 sets, daily range): BP systolic 145–172; BP diastolic 76–96; PULSE 60–88; RESP 17–20; TEMP 37; O2SAT 95–98; BMI 23.8
--- NOTE | 2022-11-08 07:15 | IR_ITS ---
APPROVED REPORT Patient Location: Outpatient Machine Operations Supervisor: WALLACE Lopes RT (R) PROCEDURES 1. Pocket Revision 2. Placement of left ventricular sensing pacing lead into the coronary sinus. 3. Permanent cardiac resynchronization therapy with biventricular pacemaker with defibrillator (RETAIL REPRESENTATIVE???D) 4. placement of right ventricular sensing pacing and shocking coil into the right ventricular apex 5. Capping of chronic right ventricular pacing and sensing coil 4. Capping of chronic right ventricular lead INDICATION Systolic Congestive Heart Failure, ejection <35%, Wide QRS > 140 ms, [place] Heart Association Class 3 Congestive Heart Failure Informed consent was obtained prior to the procedure. COMPLICATIONS None Estimated Blood Loss: Less than 10 ML TECHNIQUE 1% Lidocaine with epinephrine used to anesthetized the left anterior aspect of the chest. Scalpel was used to make the initial cutaneous incision while electrocautery was used to dissect down tinto the fascia. The fascia was lifted off the pectoralis muscle and digitally manipulated creating a pocket for the pacemaker. The patient was then placed in Trendelenburg position and the subclavian vein was accessed two times via the Selinger technique, there are three wires in the vein. A 9.5 Iranian sheath and dilator was then placed over one of the wires while keeping the other wire in place within the subclavian vein. The dilator was removed from the sheath. Using fluoroscopic guidance, contrast was used to visualize the coronary sinus, the left ventricular lead was placed into the coronary sinus. Electronic interrogation proved acceptable thresholds and voltage within the lead. Using 3-0 silk, the left ventricular lead was then secured into place and sheath peeled away. A 8 Iranian sheath was placed under fluoroscopic guidance into the subclavian vein over one of the wires while keeping the other wire in place within the subclavian vein. The dilator was removed from the sheath. Using fluoroscopic guidance, the right ventricular lead was placed into the right ventricular apex, screwed and secured into place. Electronic interrogation proved acceptable thresholds and voltage within the lead. Using 3-0 silk, the ventricular lead was then secured into place. Lead was secured to the facia using the 3-0 silk. Following this, the sheath was pealed away. The chronic right ventricular lead was capped. 1 gram of Ancef was used to flush the pocket. Following the defibrillator being secured to the fascia and placed in revised pocket, Monocryl was used to close the subcutaneous layers while aden were used to close the cutaneous layer. A pressure dressing was placed and the patient was transferred to the postop holding area in stable condition for postoperative care. INTERROGATION Generator Model number: [id number] Generator Serial number: [id number] Chronic atrial lead model number: [id number] Chronic Atrial lead serial number: [id number] Chronic Right Ventricular lead model number: [id number] Chronic Right Ventricular lead serial number: [id number] New Right Ventricular lead model number: [id number] New Right Ventricular lead serial number: [id number] R-wave: 11.7MV Impedence: 630 OHMS Threshold: 0.5V@0.5MS Left Ventricular lead model number: [id number] Left Ventricular lead serial number: [id number] Impedence: 710 OHMS Threshold:1.25 V@0.5 MS Pacing Parameters: Mode: DDDR Base/Max Track:60 ppm / 130 ppm No diaphragmatic stimulation at 10 volts. IMPRESSION 1. Successful Pocket Revision 2. Successful Placement of left ventricular sensing pacing lead into the coronary sinus. 3. Successful Permanent cardiac resynchronization therapy with biventricular pacemaker with defibrill
[2022-11-08 09:42] LABS: Basophils % 0.2 % (0.1-2.0); Eosinophils # 0.3 K/mm3 (0.0-0.4); Hemoglobin 14.4 g/dL (14.1-18.0); Lymphocytes # 1.1 K/mm3 (0.7-4.5); Lymphocytes % 17.5 % (10-50); Mean Corpuscular HGB Conc 32.8 g/dL (31.8-35.4); Mean Corpuscular Hemoglobin 31.2 pg (27.0-31.2); Mean Corpuscular Volume 95.2 fl (80-94); Mean Platelet Volume 7.5 fl (7.4-10.4); Monocytes # 0.5 K/mm3 (0.1-1.0); Monocytes % 8.5 % (1.7-9.3); Neutrophils # 4.4 K/mm3 (1.8-7.8); Neutrophils % 69.7 % (37.0-80.0); Platelet Count 215 K/mm3 (142-424); Red Blood Count 4.62 M/mm3 (4.60-6.20); Red Cell Distribution Width 13.6 % (11.5-17.5); White Blood Count 6.4 K/mm3 (4.8-10.8)
[2022-11-08 09:47] LABS: Anion Gap 12.4 mEq/L (5-15); Blood Urea Nitrogen 18 mg/dl (9-20); Calcium 8.9 mg/dl (8.4-10.2); Carbon Dioxide 28 mmol/L (22.0-30.0); Chloride 105 mmol/L (98-107); Creatinine Clearance Estimated 52 mL/min (50-200); Estimated Glomerular Filt Rate 58 ml/min (>60); GFR (African American) 70 ML/MIN (>60); Glucose 94 mg/dl (74-100); Potassium 4.4 mmoL/L (3.5-5.1); Sodium 141 mmol/L (136-145)
--- NOTE | 2022-11-08 10:13 | P.PNANES_ITS ---
[facility] Disclaimer: The information contained in this section may have been updated after the patient was seen, as this information can be updated by other users. Medical History Atypical angina Chest pain Fall Nonadherence to medication Palpitations Recent myocardial infarction Social History Smoking Status: Never smoker alcohol intake: never substance use type: denies use current occupational status: retired Travel in the last 8 weeks: [place] the [place] household members: spouse housing: house current occupational exposures/hazards: No caffeine: Yes [facility] Anesthesia Checklist Patient Identification Patient Identification: Arm Band Structural Data Admitted From: Home Planned Operative Procedure/s: Biventricular Pacemaker Upgrade Consent for Planned Operative Procedure(s) Verified: Yes Verified Documents: Surgical Consent and History and Physical NPO Status Verified Time NPO: 00:00 Additional verifications Anesthesia Reactions: No Airway Assessment Mallampati Score:: Class II C-Spine Mobility Assessed: Yes TMJ Mobility Assessed: Yes Dentition: Edentulous Neurological Assessment Level of Consciousness: Awake and Alert Anesthesia Plan Anesthesia Risk discussed: Yes Anesthesia Plan: Verified ASA Class: IV Anesthesia Type: MAC
--- NOTE | 2022-11-08 12:50 | XR_ITS ---
FINAL REPORT CLINICAL HISTORY: post pacemaker COMPARISON: 05/14/2022 FINDINGS: A single view of the chest was obtained. The heart is normal in size. There are postoperative changes from generator change with overlying aden. Stable chronic changes are seen at the lung bases. There is no pleural effusion. There is no pneumothorax. There is no acute osseous abnormality. IMPRESSION: No pneumothorax post pacemaker placement. Reviewed, Interpreted and Dictated by Vincenzo Johnson MD Transcribed by Nereida De Souza Authenticated and [facility]
== END 2022-11-08 15:10 | disposition home or self-care (01) ==
PROVIDERS: PCP Family Medicine; Visit Provider Internal Medicine
DX: I25.118 Atherosclerotic heart disease of native coronary artery with other forms of angina pectoris (principal); Z45.02 Encounter for adjustment and management of automatic implantable cardiac defibrillator; I11.0 Hypertensive heart disease with heart failure; I50.22 Chronic systolic (congestive) heart failure; I42.9 Cardiomyopathy, unspecified; Z79.899 Other long term (current) drug therapy; I25.2 Old myocardial infarction; R93.1 Abnormal findings on diagnostic imaging of heart and coronary circulation
CPT/HCPCS: 33225; 33241; 33249; 71045; 80048; 85025; C1769; C1882; C1895; C1900; Q9967

== ENCOUNTER 2023-02-08 15:27 | Emergency (ER) | payer MEDICARE, OTHER, SELFPAY ==
[2023-02-08 15:28] VITALS: BP 142/74; PULSE 90; RESP 19; TEMP 36.5; O2SAT 95; BMI 24.4
--- NOTE | 2023-02-08 15:43 | CT_ITS ---
PROCEDURE INFORMATION: Exam: CTA Abdomen and Pelvis With Contrast Exam date and time: 02/08/2023 5:22 PM Age: 87 years old Clinical indication: Other: Cancer HX; Additional info: History of gastric cancer, ugib TECHNIQUE: Imaging protocol: Computed tomographic angiography of the abdomen and pelvis with contrast. Exam focused on the arteries. 3D rendering (Not supervised by radiologist): MIP and/or 3D reconstructed images were created by the technologist. Radiation optimization: All CT scans at this facility use at least one of these dose optimization techniques: automated exposure control; mA and/or kV adjustment per patient size (includes targeted exams where dose is matched to clinical indication); or iterative reconstruction. Contrast material: ISOVUE; Contrast volume: 100 ml; Contrast route: INTRAVENOUS (IV); REPORTING DATA: Count of CT and Cardiac NM exams in prior 12 months: This patient has received 4 known CTs and 0 known cardiac nuclear medicine studies in the 12 months prior to the current study. COMPARISON: CT ABDOMEN PELVIS WO CON 09/12/2022 10:43 AM FINDINGS: Lungs: Calcified granuloma at the right lung base. Scattered areas of bronchial wall thickening which are likely chronic inflammatory. A few areas of subpleural reticulation are noted, nonspecific. Calcified granuloma at the left lung base. Mediastinal space: There is wall thickening of the distal esophagus, nonspecific. Aorta: No aortic aneurysm. No aortic dissection. Celiac trunk and mesenteric arteries: No occlusion or significant stenosis. Renal arteries: No occlusion or significant stenosis. Right iliac arteries: No occlusion or significant stenosis. Left iliac arteries: No occlusion or significant stenosis. Liver: No mass. Gallbladder and bile ducts: The patient is status post cholecystectomy. There is dilation of the intrahepatic biliary ducts most likely reflecting post cholecystectomy effect. Pancreas: Unremarkable. No mass. No ductal dilation. Spleen: Unremarkable. No splenomegaly. Adrenal glands: Unremarkable. No mass. Kidneys and ureters: There are bilateral simple appearing renal cysts. Stomach and bowel: There is a hyperdense focus within the dependent portion of the gastric antrum (image 57 series 5), this is suggestive of an ingested pill but, given the lack of precontrast and delayed postcontrast images, focal hemorrhage can not be excluded. Appendix: No evidence of appendicitis. Intraperitoneal space: There is stranding in the central abdominal mesentery which could be associated with mesenteric panniculitis/sclerosing mesenteritis but is technically nonspecific for any entity. Lymph nodes: Unremarkable. No enlarged lymph nodes. 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 There is moderate distention of the urinary bladder. Reproductive: The prostate is enlarged. There are some prostate calcifications. Bones/joints: No acute fracture. Soft tissues: There are fat containing bilateral inguinal hernias. IMPRESSION: 1. There is a hyperdense focus within the dependent portion of the gastric antrum (image 57 series 5), this is could reflect an ingested pill but focal hemorrhage can not be excluded on this exam. 2. Otherwise, incidental findings as above.
--- NOTE | 2023-02-08 15:44 | XR_ITS ---
FINAL REPORT CLINICAL HISTORY: Fall COMPARISON: 11/08/2022 FINDINGS: SINGLE-VIEW CHEST The heart size is normal. The mediastinum is normal. The lungs are clear. Biventricular pacer is identified. There is no pneumothorax. IMPRESSION: No acute cardiopulmonary process. Reviewed, Interpreted and Dictated by Vincenzo Johnson MD Transcribed by Tere Palmer Authenticated and [facility]
--- NOTE | 2023-02-08 15:44 | ECG_ITS ---
APPROVED REPORT Exam: Resting ECG HR:87 bpm ECG Measurements Heart Rate 87 AXES MD 200 P 72 QRSd 142 QRS -25 QT 391 T 119 QTc 435 Conclusion ELECTRONIC VENTRICULAR PACEMAKER ABNORMAL RHYTHM ECG UNCONFIRMED REPORT Electronically signed by : Adiel Reyes MD 02/09/2023 16:30:40
--- NOTE | 2023-02-08 15:51 | HMH.EDGENADL ---
Discharge Plan Disposition Patient Disposition: Home, Self-Care Condition: Good Chief Complaint: Weakness Prescriptions Prescriptions: No Action metoprolol succinate [Toprol XL] 50 mg tablet extended release 24 hr 25 mg PO DAILY MDD . Entresto 24-26 mg tablet 1 tab PO BID Qty: 60 2RF hydrocodone-acetaminophen 5-325 mg tablet 1 tab PO Q4-6H PRN (Reason: pain) Qty: 30 0RF lorazepam 1 MG tablet 1 mg PO TID Farxiga 10 mg tablet 10 mg PO DAILY aspirin 81 MG tablet,delayed release (DR/EC) 81 mg PO DAILY pantoprazole 40 MG tablet,delayed release (DR/EC) 40 mg PO HS Referrals Follow up/Referrals: Carlos Marcus MD [Primary Care Provider] - See instructions Clinical Impressions Clinical Impression: Nausea & vomiting Instructions Patient Instructions: DI for Vomiting -- Adult Discharge ED Provider: Effie Frances General Adult HPI General Chief complaint: Weakness Stated complaint: vomiting, weak Time Seen by Provider: 02/08/23 15:29 Mode of Arrival: Wheelchair Source of Information: Patient Limitations: No Limitations Description of Symptoms (Recalled from ER Triage Doc. by RN): 87 yo M presents to ED with c/o vomitting, weakness. difficulty having BM. symptoms ongoing for 3-4 days History of Present Illness HPI narrative: Patient has a PMHx significant for stomach cancer status postchemotherapy radiation, CAD status post PCI x 1, defibrillator placement, COPD who presents to the ED with complaints of hematemesis. Patient notes that for the past week, he has been having progressively worsening malaise, weakness. Today, patient notes that he had sudden onset of chest pain, which she describes as a burning sensation consistent with indigestion that he had in the past. Shortly after, patient had an episode of emesis where patient notes that he threw up a large dark blood clots. Patient denies any blood thinner use. Patient notes that he has been having difficulty having bowel movements, but no blood in the stool. No history of cirrhosis Related Data Home Medications Medication Instructions Recorded Confirmed aspirin 81 mg tablet,delayed 81 mg PO DAILY CIRCULATION 07/04/20 12/25/22 release pantoprazole 40 mg tablet,delayed 40 mg PO HS GERD 07/04/20 12/25/22 release lorazepam 1 mg tablet 1 mg PO TID Anxiety 05/14/22 12/25/22 dapagliflozin propanediol 10 mg 10 mg PO DAILY . 11/08/22 12/25/22 tablet (Farxiga) metoprolol succinate 50 mg 25 mg PO DAILY . 11/15/22 12/25/22 tablet,extended release 24 hr (Toprol XL) Previous Rx's Medication Instructions Recorded hydrocodone 5 mg-acetaminophen 325 1 tab PO Q4-6H PRN pain #30 tabs 11/08/22 mg tablet sacubitril 24 mg-valsartan 26 mg 1 tab PO BID #60 tabs 12/25/22 tablet (Entresto) Allergies Allergy/AdvReac Type Severity Reaction Status Date / Time oxycodone AdvReac Agitated Verified 12/25/22 13:48 [facility] Disclaimer: The information contained in this section may have been updated after the patient was seen, as this information can be updated by other users. Medical History Atypical angina Chest pain Fall Nonadherence to medication Palpitations Recent myocardial infarction Social History Smoking Status: Never smoker alcohol intake: never substance use type: denies use current occupational status: retired Travel in the last 8 weeks: Inside the [place] household members: spouse housing: house current occupational exposures/hazards: No caffeine: Yes ROS Obtained: Yes All systems reviewed & no additional complaints except as documented Physical Exam General General appearance: alert and in no apparent distress Head Head exam: atraumatic, normocephalic and normal inspection Eye Eye exam: Present normal appearance, PERRL and EOMI; Absent scleral icterus o
[2023-02-08 16:00] VITALS: BP 152/75; PULSE 88; O2SAT 95
[2023-02-08 16:09] LABS: Basophils % 0.2 % (0.1-2.0); Eosinophils % 0.5 % (0.1-12.0); Hematocrit 44.9 % (42.0-52.0); Hemoglobin 14.8 g/dL (14.1-18.0); Lymphocytes # 0.9 K/mm3 (0.7-4.5); Lymphocytes % 11.8 % (10-50); Mean Corpuscular Hemoglobin 31.7 pg (27.0-31.2); Mean Corpuscular Volume 96.1 fl (80-94); Monocytes # 0.6 K/mm3 (0.1-1.0); Monocytes % 7.4 % (1.7-9.3); Neutrophils # 6.1 K/mm3 (1.8-7.8); Neutrophils % 80.2 % (37.0-80.0); Platelet Count 189 K/mm3 (142-424); Red Blood Count 4.68 M/mm3 (4.60-6.20); Red Cell Distribution Width 13.1 % (11.5-17.5); White Blood Count 7.7 K/mm3 (4.8-10.8)
[2023-02-08 16:13] LABS: Chloride 103 mmol/L (98-107); Sodium 139 mmol/L (136-145)
[2023-02-08 16:15] LABS: Blood Urea Nitrogen 22 mg/dl (9-20); Creatinine Clearance Estimated 48 mL/min (50-200); Estimated Glomerular Filt Rate 52 ml/min (>60); GFR (African American) 63 ML/MIN (>60)
[2023-02-08 16:16] LABS: Alanine Aminotransferase 34 U/L (12-78); Albumin/Globulin Ratio 1.3 (1.1-1.8); Alkaline Phosphatase 113 U/L (38-126); Aspartate Amino Transferase 44 U/L (17-59); Bilirubin,Total 0.8 mg/dl (0.2-1.3); Calcium 8.4 mg/dl (8.4-10.2); Carbon Dioxide 31 mmol/L (22.0-30.0); Globulin 3.2 g/dL (1.3-3.2); Glucose 97 mg/dl (74-100); Lactic Acid 1.5 mmol/L (0.7-2.1); Lipase 40 U/L (23-300); Total Protein,Serum 7.2 g/dl (6.3-8.2)
[2023-02-08 16:30] VITALS: BP 134/71; PULSE 86; O2SAT 96
[2023-02-08 16:36] LABS: Troponin I < 0.01 ng/ml (0.00-0.034)
[2023-02-08 17:00] VITALS: BP 147/79; PULSE 82; O2SAT 94
[2023-02-08 19:06] VITALS: BP 144/80; PULSE 82; RESP 20; TEMP 36.5; O2SAT 97
== END 2023-02-08 19:07 | disposition home or self-care (01) ==
PROVIDERS: Emergency Provider Emergency Medicine; PCP Family Medicine
DX: R07.9 Chest pain, unspecified (principal); K92.0 Hematemesis; R53.1 Weakness; J44.9 Chronic obstructive pulmonary disease, unspecified; Z85.028 Personal history of other malignant neoplasm of stomach; Z95.810 Presence of automatic (implantable) cardiac defibrillator; Z86.79 Personal history of other diseases of the circulatory system; Z92.21 Personal history of antineoplastic chemotherapy
CPT/HCPCS: 71045; 74174; 80053; 83605; 83690; 84484; 85025; 86850; 93005; 96361; 96374; 99285; J2405; Q9967

== ENCOUNTER 2023-12-30 15:09 | Inpatient (IN) | payer MEDICARE, OTHER, SELFPAY ==
[2023-12-30] VITALS (12 sets, daily range): BP systolic 123–179; BP diastolic 55–84; PULSE 65–92; RESP 20; TEMP 36.7–38.7; O2SAT 91–96; BMI 23.7; BMI 23.6
--- NOTE | 2023-12-30 15:22 | ECG_ITS ---
APPROVED REPORT Exam: Resting ECG HR:85 bpm ECG Measurements Heart Rate 85 AXES VA 192 P 70 QRSd 124 QRS -33 QT 372 T 88 QTc 415 Conclusion V paced rhythm No acute ischemic change Electronically signed by : RAMIREZ KHOURY, 12/30/2023 20:01:58
--- NOTE | 2023-12-30 15:22 | HMH.EDGENADL ---
Discharge Plan Disposition Chief Complaint: Fever Prescriptions Prescriptions: No Action Centrum Silver Men [id number] mcg tablet 1 tab PO DAILY ramipril [Altace] 10 mg capsule 10 mg PO DAILY Qty: 90 1RF metoprolol succinate [Toprol XL] 25 mg tablet extended release 24 hr 25 mg PO DAILY Qty: 30 5RF lorazepam 1 MG tablet 1 mg PO TID pantoprazole 40 MG tablet,delayed release (DR/EC) 40 mg PO HS Referrals Follow up/Referrals: Carlos Marcus MD [Primary Care Provider] - See instructions Print Language Print Language: Urdu Discharge ED Provider: Lazaro Candelario General Adult HPI General Chief complaint: Fever Stated complaint: cough,fever,abdominal pain Time Seen by Provider: 12/30/23 15:16 Related Data Home Medications ?Medication ?Instructions ?Recorded ?Confirmed pantoprazole 40 mg tablet,delayed 40 mg PO HS GERD 07/04/20 04/26/23 release lorazepam 1 mg tablet 1 mg PO TID Anxiety 05/14/22 04/26/23 [id number]-bi-[id number] 300 mcg-K 60 1 tab PO DAILY 03/07/23 04/26/23 mcg-lycop 600 mcg-lutein 300 mcg tablet (Centrum Silver Men) Previous Rx's ?Medication ?Instructions ?Recorded ramipril 10 mg capsule (Altace) 10 mg PO DAILY #90 caps 08/09/23 metoprolol succinate 25 mg 25 mg PO DAILY #30 tabs 11/16/23 tablet,extended release 24 hr (Toprol XL) Allergies Allergy/AdvReac Type Severity Reaction Status Date / Time oxycodone AdvReac Agitated Verified 04/26/23 13:03 [facility] Disclaimer: The information contained in this section may have been updated after the patient was seen, as this information can be updated by other users. Medical History Atypical angina Chest pain Fall Nonadherence to medication Palpitations Recent myocardial infarction Social History Smoking Status: Never smoker alcohol intake: never substance use type: denies use current occupational status: retired Travel in the last 8 weeks: Inside the [place] household members: spouse housing: house current occupational exposures/hazards: No caffeine: Yes Other Medical History Have you received the Flu Vaccine for this season: Yes Have you received the Pneumonia Vaccine: Yes ROS Obtained: Yes Systems reviewed as appropriate & no additional complaints except as documented Physical Exam General General appearance: alert and in no apparent distress Head Head exam: atraumatic and normal inspection Eye Eye exam: Present normal appearance, PERRL and EOMI ENT ENT exam: Present normal exam, normal oropharynx and mucous membranes moist Neck Neck exam: Present normal inspection, full ROM and trachea midline; Absent lymphadenopathy Chest Chest inspection: Present normal inspection and symmetric chest wall rise Respiratory Respiratory exam: Present normal lung sounds bilaterally; Absent accessory muscle use Cardiovascular Cardiovascular exam: Present regular rate, normal rhythm, normal heart sounds, +S1 and +S2 Abdominal Exam Abdominal exam: Present soft and normal bowel sounds; Absent tenderness, guarding or rebound Extremities Exam Extremities exam: Present normal inspection and full ROM Neurological Exam Neurological exam: Present alert, oriented X3 and CN II-XII intact Psychiatric Psychiatric exam: Present normal affect and normal mood Skin Skin exam: Present warm, dry and normal color Lymphatic Lymphatic Findings: no adenopathy Medical Decision Making Medical Records Screening: Per USPSTF and CDC recommendations, given the prevalence of disease in our region, it is our hospital?s policy to screen for HIV and viral Hepatitis for all patients aged 18 and over and those with ongoing risk factors. Vital Signs: 12/30/23 15:11 Temperature 101.6 F H Temperature Source Oral Pulse Rate [Right Radial] 87 Respiratory Rate 20 Blood Pressure [Right Arm] 179/84 H Blood Pressure Mean [Right Arm] 115 02 Sat by Pulse Oximetry 94 L Oxygen Delivery Method Room Air Medical Decision Narrative: In summary patient is a [age, sex] who presents to the emergency department for evaluation of [complaint]. Patient is [hemodynamically stable/unstable] upon arrival, [febrile/afebrile]. [Unremarkable physical exam, nonfocal exam versus focal remarkable exam]. Differential diagnosis includes [DDx]. Initial workup will be conducted with [hematologic labs, imaging, respiratory swab, describe workup]. Initial interventions include [crystalloid bolus, medications, p.o. challenge, etc.] initial workup reviewed by me [hematologic labs are remarkable for... Imaging remarkable for... Urinalysis remarkable for]. Upon repeat evaluation [patient had acceptable resolution of symptoms, had persistent pain for which additional interventions were conducted (describe interventions), tolerated p.o., was ambulatory, etc.]. Given this [patient is appropriate for discharge at this time and will be discharged with a prescription for... The case was discussed with hospital medicine regarding management and they will admit the patient their service for continued evaluation at this time... Etc.] Places where you can increase complexity: I informally interpreted the patient's chest x-ray or CT read and is remarkable for... Documenting what the supervisor lamp shades shows with rate and rhythm Consideration of test but deferring. Ex: I considered chest x-ray on this patient however given that they have no oxygen requirement and are clear to auscultation all lung biswas will be deferred. Social determinants of health: Given that patient is undomiciled increases complexity. Given that patient has polysubstance abuse compounds all aspects of care
--- NOTE | 2023-12-30 15:27 | XR_ITS ---
PROCEDURE INFORMATION: Exam: XR Chest Exam date and time: 12/30/2023 3:29 PM Age: 88 years old Clinical indication: Cough and shortness of breath; Additional info: Concern for R sided pna TECHNIQUE: Imaging protocol: Radiologic exam of the chest. Views: 2 views. COMPARISON: CR XR CHEST 2V 12/30/2023 3:29 PM FINDINGS: Tubes, catheters and devices: Transvenous pacemaker leads in the heart Lungs: Unremarkable. No consolidation. Pleural spaces: Unremarkable. No pleural effusion. No pneumothorax. Heart/Mediastinum: Unremarkable. No cardiomegaly. Bones/joints: Unremarkable. IMPRESSION: No focal consolidation
--- NOTE | 2023-12-30 15:59 | ED_ITS ---
Discharge Plan Disposition Patient Disposition: Admitted Chief Complaint: Fever Prescriptions Prescriptions: No Action Centrum Silver Men [id number] mcg tablet 1 tab PO DAILY ramipril [Altace] 10 mg capsule 10 mg PO DAILY Qty: 90 1RF metoprolol succinate [Toprol XL] 25 mg tablet extended release 24 hr 25 mg PO DAILY Qty: 30 5RF lorazepam 1 MG tablet 1 mg PO TID pantoprazole 40 MG tablet,delayed release (DR/EC) 40 mg PO HS Referrals Follow up/Referrals: Carlos Marcus MD [Primary Care Provider] - See instructions Clinical Impressions Clinical Impression: CHF exacerbation, COVID-19, Acute hypoxemic respiratory failure Print Language Print Language: Luxembourgish Discharge ED Provider: Lazaro Candelario General Adult HPI General Chief complaint: Fever Stated complaint: cough,fever,abdominal pain Time Seen by Provider: 12/30/23 15:16 Mode of Arrival: Wheelchair Source of Information: Patient Limitations: No Limitations Description of Symptoms (Recalled from ER Triage Doc. by RN): pt has been coughing for one week, got worse last night and then started running a fever last night as well, pt took tylenol and niquil at home [employer] delivery system. History of Present Illness HPI narrative: Please note that above description of symptoms, in this electronic medical record under categorization of recalled from ER triage doctor by RN are reflective of an initial nursing assessment, however, is not reflective of my full history and physical exam that was personally taken and clarified. Consequentially, this preceding description of symptoms, which may include the patient's categorized chief complaint in the EMR, do not reflect my personal clinical impression, and the ultimate description of history of present illness and patient stated complaints should be deferred to this section of the note. Unless stated otherwise or congruent with this section of the note, additional signs, symptoms, or incongruence should be interpreted as inaccurate with my clinical impression. Related Data Home Medications ?Medication ?Instructions ?Recorded ?Confirmed pantoprazole 40 mg tablet,delayed 40 mg PO HS GERD 07/04/20 04/26/23 release lorazepam 1 mg tablet 1 mg PO TID Anxiety 05/14/22 04/26/23 [id number] 300 mcg-K 60 1 tab PO DAILY 03/07/23 04/26/23 mcg-lycop 600 mcg-lutein 300 mcg tablet (Centrum Silver Men) Previous Rx's ?Medication ?Instructions ?Recorded ramipril 10 mg capsule (Altace) 10 mg PO DAILY #90 caps 08/09/23 metoprolol succinate 25 mg 25 mg PO DAILY #30 tabs 11/16/23 tablet,extended release 24 hr (Toprol XL) Allergies Allergy/AdvReac Type Severity Reaction Status Date / Time oxycodone AdvReac Agitated Verified 04/26/23 13:03 [facility] Disclaimer: The information contained in this section may have been updated after the patient was seen, as this information can be updated by other users. Medical History Atypical angina Chest pain Fall Nonadherence to medication Palpitations Recent myocardial infarction Social History Smoking Status: Never smoker alcohol intake: never substance use type: denies use current occupational status: retired Travel in the last 8 weeks: Inside the [place] household members: spouse housing: house current occupational exposures/hazards: No caffeine: Yes Other Medical History Have you received the Flu Vaccine for this season: Yes Have you received the Pneumonia Vaccine: Yes ROS Obtained: Yes All systems reviewed & no additional complaints except as documented Physical Exam General General appearance: alert and in no apparent distress Head Head exam: atraumatic and normocephalic Eye Eye exam: Present normal appearance, PERRL and EOMI Neck Neck exam: Present normal inspection, full ROM and trachea midline Respiratory Respiratory exam: Present wheezes (right sided inspiratory) and other (Intermittently coughing); Absent respiratory distress, stridor, accessory muscle use or prolonged expiratory phase Cardiovascular Cardiovascular exam: Present regular rate, normal rhythm, Pacemaker/defibrillator and other (Pulses equal symmetric in upper and lower extremities) Abdominal Exam Abdominal exam: Present soft; Absent distention, tenderness, guarding, rebound, rigidity or pulsatile mass Extremities Exam Extremities exam: Absent edema Neurological Exam Neurological exam: Present alert, oriented X3, CN II-XII intact and normal gait; Absent motor sensory deficit Skin Skin exam: Present warm and dry; Absent diaphoresis or erythema Medical Decision Making Medical Records Medical records reviewed: Yes I reviewed the patient's medical records. Screening: Per USPSTF and CDC recommendations, given the prevalence of disease in our region, it is our hospital?s policy to screen for HIV and viral Hepatitis for all patients aged 18 and over and those with ongoing risk factors. Lev Inquiry Pt receiving controlled substance: No Lev was queried for this patient: No Vital Signs: 12/30/23 15:11 12/30/23 15:28 12/30/23 15:30 Temperature 101.6 F H Temperature Source Oral Oral Pulse Rate 81 Pulse Rate [Right Radial] 87 Respiratory Rate 20 Blood Pressure 166/80 H Blood Pressure [Right Arm] 179/84 H Blood Pressure Mean 115 Blood Pressure Mean [Right Arm] 115 02 Sat by Pulse Oximetry 94 L 94 L Oxygen Delivery Method Room Air Room Air 12/30/23 16:00 Temperature Temperature Source Pulse Rate 81 Pulse Rate [Right Radial] Respiratory Rate Blood Pressure 170/81 H Blood Pressure [Right Arm] Blood Pressure Mean 118 Blood Pressure Mean [Right Arm] 02 Sat by Pulse Oximetry 93 L Oxygen Delivery Method Room Air Lab Data Lab Results 12/30/23 15:29: SARS-CoV-2 (PCR) Detected A, Influenza A Untype (PCR) Not detected, Influenza Type B (PCR) Not detected 12/30/23 15:31: VBG pH 7.45 H, VBG pCO2 30.3 L, VBG pO2 55.1 H, VBG HCO3 20.6 L, VBG Total CO2 21.6 L, VBG O2 Saturation 90.8 H, VBG Base Excess -3.3 L, VBG Lactic Acid 1.7 12/30/23 15:38: WBC 6.8, RBC 4.60, Hgb 14.7, Hct 44.1, MCV 96.0 H, MCH 32.0 H, MCHC 33.4, RDW 13.0, Plt Count 163, MPV 7.6, Neut % (Auto) 79.5, Lymph % (Auto) 9.0 L, [place] % (Auto) 8.1, Eos % (Auto) 2.7, Baso % (Auto) 0.7, Neut # (Auto) 5.4, Lymph # (Auto) 0.6 L, [place] # (Auto) 0.6, Eos # (Auto) 0.2, Baso # (Auto) 0.1, PT 11.2, INR 1.00, APTT 27.4, Sodium 138, Potassium 4.1, Chloride 109 H, Carbon Dioxide 24, Anion Gap 9.1, BUN 20, Creatinine 1.20, Estimated Creat Clear 50, Estimated GFR 57 L, Est GFR ( Amer) 69, Glucose 97, Lactate 1.1, Calcium 8.8, Magnesium 1.7, Total Bilirubin 1.1, AST 39, ALT 27, Alkaline Phosphatase 92, Troponin I < 0.01, NT-Pro-B Natriuret Pep 1250 H, Total Protein 7.2, Albumin 3.8, Globulin 3.4 H, Albumin/Globulin Ratio 1.1, Procalcitonin 0.067 12/30/23 16:05: Urine Color Yellow, Urine Appearance Clear, Urine pH 6.0, Ur Specific [place] 1.015, Urine Protein Negative, Urine Glucose (UA) Negative, Urine Ketones Negative, Urine Blood 2+ A, Urine Nitrate Negative, Urine Bilirubin Negative, Urine Urobilinogen 0.2, Ur Leukocyte Esterase Negative, Urine RBC 3-5, Urine WBC None, Ur Squamous Epith Cells Occasional, Urine Bacteria None 12/30/23 15:38 12/30/23 15:38 Orders (Tests/Meds): ED MEDICATIONS Generic Name Dose Route Start Last Admin Trade Name Cristi PRN Reason Stop Dose Admin Sodium Chloride 10 ml 12/30/23 17:10 12/30/23 17:13 Sodium Chloride 0.9% 10ml Syr (Rad Only) IV 01/29/24 17:09 10 ml NEEDED PRN Administration Maintain IV Site Discontinued Medications Generic Name Dose Route Start Last Admin Trade Name Cristi PRN Reason Stop Dose Admin Acetaminophen 1,000 mg 12/30/23 16:06 12/30/23 16:37 Acetaminophen 500mg Tab PO 12/30/23 16:07 1,000 mg ONCE ONE Administration Furosemide 40 mg 12/30/23 17:56 Furosemide 40mg/4ml Vial IV 12/30/23 17:57 ONCE ONE Iopamidol 120 ml 12/30/23 17:10 12/30/23 17:13 Iopamidol-370 (76%);100ml Bottle IV 12/30/23 17:11 120 ml ONCE ONE Administration Ketorolac Tromethamine 15 mg 12/30/23 16:06 12/30/23 16:37 Ketorolac 30mg/Ml Vial IV 12/30/23 16:07 15 mg ONCE ONE Administration Sodium Chloride 50 ml 12/30/23 17:10 12/30/23 17:13 0.9 % Sodium Chloride 50 Ml Vial IV 12/30/23 17:11 50 ml ONCE ONE Administration ORDERS Category Date Time Status CT abdomen pelvis w con Stat Cat Scan 12/30/23 16:[address] angio chest PE protocol Stat Cat Scan 12/30/23 16:05 Completed CXR 2 view (NOT portable) [XR chest 2V] Stat Exams 12/30/23 15:27 Completed Complete Blood Count Auto Diff Stat Lab 12/30/23 15:38 Completed Comprehensive Metabolic Panel Stat Lab 12/30/23 15:38 Completed Lactic Acid Stat Lab 12/30/23 15:38 Completed Magnesium Stat Lab 12/30/23 15:38 Completed NT Pro Brain Natriuretic Pep. Stat Lab 12/30/23 15:38 Completed PT INR [Prothrombin Time INR] Stat Lab 12/30/23 15:38 Completed PTT [Activated Partial Thrombo Time] Stat Lab 12/30/23 15:38 Completed Procalcitonin Stat Lab 12/30/23 15:38 Completed Rapid PCR Covid and Flu A/B Stat Lab 12/30/23 15:29 Completed Troponin I Q3H Lab 12/30/23 18:16 Received Troponin I Q3H Lab 12/30/23 21:30 Ordered Troponin I Stat Lab 12/30/23 15:38 Completed Urinalysis and Microscopic Stat Lab 12/30/23 16:05 Completed Blood Culture Stat Micro 12/30/23 15:31 Received Venous Blood Gas Stat RT 12/30/23 15:31 Completed Medical Decision Narrative: 88-year-old male history of hypertension, hyperlipidemia, CHF with AICD in place, CAD with stenting, esophageal carcinoma presenting with multiple complaints. Patient states that his main complaint is his cough. He said postnasal drainage, intermittent cough that is productive of clear sputum, and worse when laying down at night. Denies PND orthopnea, just worsening cough. States that he has been having fevers and chills over the last couple of days. No chest pain, shortness of breath, diaphoresis, nausea, vomiting, diarrhea. Today he started developing abdominal pain that was all across his lower abdomen. Still passing gas, last bowel movement was yesterday, this is typical for him. No blood in it. History was obtained via conversation with patient and family. On arrival, patient hemodynamically stable, alert, oriented x4, appropriate, GCS 15, moving all extremities spontaneously, pupils equal and reactive to light. Full physical exam performed and significant for chronically ill-appearing male who is in no acute distress. Intermittently coughing. Not producing sputum. Febrile, nontachycardic. Hypertensive. 94% on room air without history of COPD or lung disease. Up to 97 after sitting down and resting. Lungs are clear to auscultation on the left, inspiratory wheezes on the right. Bilateral breath sounds are present, however. Cardiac exam without murmurs gallops or rubs. Abdomen is soft, nondistended, nontender and no other tenderness elicited on my exam. Definitely not peritonitic. No lower extremity edema, otherwise unremarkable exam. Differential includes pneumonia, bronchitis, PE, progression of disease, ACS, MS, PE, pneumothorax, CHF exacerbation, hypoxemic respiratory failure, hypercapnic respiratory failure, sepsis, among others. Patient placed on continuous cardiac monitoring and continuous pulse ox with initial blood pressure 179/84, heart rate 87, but beta blocked, saturation in high 80s on room air just after ambulation. Shortly normalized after sitting down and resting. Independent interpretation of EKG shows V paced rhythm 85 beats a minute without ST or T wave changes concerning for acute ischemia. QRS 124, QTc 415. Leftward axis. Patient was given acetaminophen and Toradol for symptomatic management and correction of underlying abnormalities. Workup independently interpreted and significant for nonactionable CBC. Coags normal. Patient's VBG with compensated metabolic acidosis bicarb low at 20.6, CO2 low 30.3, pH 7.45. Lactate negative. Chemistry nonactionable, troponin negative, BNP elevated at 1250. Patient's COVID swab was positive. Urinalysis without concern for UTI. On independent interpretation of imaging, no acute consolidation, no PE, no obvious dissection. Independent rotation of CT abdomen and pelvis without acute intra-abdominal abnormality other than massive bladder with bladder diverticulum. See radiology read for full review of final results. On reevaluation, patient still resting at baseline. Not having any current abdominal pain. Results were relayed to patient and family, agreeable to admission. Because patient sitting right around 9091% on room air at rest, 2 L nasal cannula was applied. 40 mg IV Lasix was given. Given patient presentation, workup, history, this most likely represents acute hypoxemic respiratory failure in the setting of COVID-19 and CHF exacerbation. Because patient high risk for clinical decompensation, deemed appropriate for inpatient admission. Results were relayed to patient who voiced understanding and patient was agreeable to inpatient admission and management. Patient was admitted to the hospital for further definitive management. [employer] Manager disclaimer Much of this encounter note is an electronic reprographics technician spoken language to printed text. Electronic reprographics technician of the spoken language may permit errors. Although I have reviewed the note, some errors may still exist. Critical Care Critical Care Time Critical Care Time: Yes (respiratory) Attestation: On 12/30/23, the high probability of a clinically significant, sudden or life threatening deterioration of the following system(s) required my full and direct attention, intervention and personal management. The time I documented below is in addition to time spent performing reported procedures but includes the following listed in this critical care notation. Total Time Total Critical Care Time: 35
[2023-12-30 16:01] LABS: Lactate Venous 1.7 mmol/L (0.4-2.0); VBG Base Excess -3.3 mmol/L (-2.4-2.3); VBG HCO3 20.6 mmol/L (23-30); VBG Oxygen Saturation 90.8 % (50-70); VBG PCO2 30.3 mmol/L (35-51); VBG PH 7.45 mmol/L (7.31-7.41); VBG PO2 55.1 mmol/L (28-40); VBG Total CO2 21.6 mmol/L (23-27)
--- NOTE | 2023-12-30 16:03 | CT_ITS ---
PROCEDURE INFORMATION: Exam: CT Abdomen And Pelvis With Contrast Exam date and time: 12/30/2023 4:57 PM Age: 88 years old Clinical indication: Fever; Additional info: Fever, lower abd pain TECHNIQUE: Imaging protocol: Computed tomography of the abdomen and pelvis with contrast. 3D rendering (Not supervised by radiologist): MIP and/or 3D reconstructed images were created by the technologist. Radiation optimization: All CT scans at this facility use at least one of these dose optimization techniques: automated exposure control; mA and/or kV adjustment per patient size (includes targeted exams where dose is matched to clinical indication); or iterative reconstruction. Contrast material: ISOVUE; Contrast volume: 80 ml; Contrast route: IV; COMPARISON: 1. CT ANGIO ABDOMEN PELVIS 02/08/2023 5:[address] ABDOMEN PELVIS WO CON 09/12/2022 10:[address] ABDOMEN PELVIS W CON 09/01/2020 10:39 AM FINDINGS: Tubes, catheters and devices: There is a left chest implanted cardiac device. Lungs: Scattered areas of bronchial wall thickening which are likely chronic inflammatory. A few areas of subpleural reticulation are noted, nonspecific. 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 Liver: Normal. Gallbladder and biliary ducts: The patient is status post cholecystectomy. Pancreas: There is fatty replacement of the pancreas. Spleen: There are multiple calcifications in the spleen most likely reflects small granulomas. Adrenal glands: The adrenal glands appear normal. Kidneys and ureters: There are bilateral simple appearing renal cysts. Stomach and bowel: The stomach, small bowel, and colon are well-distended and show no evidence of wall thickening, masses, or obstruction. Appendix: No evidence of appendicitis. Intraperitoneal space: There is stranding in the central abdominal mesentery which could be associated with mesenteric panniculitis/sclerosing mesenteritis but is technically nonspecific for any entity. Vasculature: There is atherosclerotic disease of the visualized aorta and its major branch vessels. Lymph nodes: No lymphadenopathy. Urinary bladder: There is moderate distention of the urinary bladder. Reproductive: No acute process. Bones/joints: There is diffuse degenerative disease of the visualized osseous structures. Soft tissues: There are fat containing bilateral inguinal hernias. IMPRESSION: No acute inflammatory or obstructive process is identified. Incidental findings are described within the findings section. COMMENTS: Consistent with the [employer]'s Incidental Findings Committee white paper (J Am Ludin Radiol 2018): Any incidental renal lesion less than 1 cm or classified as too small to characterize, or any incidental cystic renal lesion characterized as simple-appearing, is likely benign. No follow-up imaging is recommended for these lesions per consensus recommendations based on imaging criteria.
--- NOTE | 2023-12-30 16:05 | CT_ITS ---
PROCEDURE INFORMATION: Exam: CTA Chest With Contrast Exam date and time: 12/30/2023 4:57 PM Age: 88 years old Clinical indication: Cough; Additional info: New cough, SOA, history of CA, new hypoxemia TECHNIQUE: Imaging protocol: Computed tomographic angiography of the chest with contrast. Exam focused on the arteries. 3D rendering (Not supervised by radiologist): MIP and/or 3D reconstructed images were created by the technologist. Radiation optimization: All CT scans at this facility use at least one of these dose optimization techniques: automated exposure control; mA and/or kV adjustment per patient size (includes targeted exams where dose is matched to clinical indication); or iterative reconstruction. Contrast material: ISOVUE 370; Contrast volume: 80 ml; Contrast route: INTRAVENOUS (IV); COMPARISON: CT ANGIO CHEST PE PROTOCOL 05/14/2022 8:01 AM FINDINGS: Tubes, catheters and devices: Transvenous pacemaker leads in the heart Pulmonary arteries: No evidence of pulmonary embolus to the segmental level. Aorta: No aneurysm of the aorta. No dissection of the aorta. Lungs: Mild opacities in lower lobes may represent atelectasis or pneumonia . Bronchiectasis in the lower lobes. No pulmonary nodule. Pleural spaces: Unremarkable. No pneumothorax. No pleural effusion. Heart: Unremarkable. No cardiomegaly. No pericardial effusion. Coronary arteries: Coronary artery calcifications may indicate coronary artery disease. Lymph nodes: Pathologic node in the pre aortic region 23 x 11 mm. Pathologic node anterior to the dre 17 x 10 mm Kidneys: Subcentimeter low attenuation area in the left kidney is too small for characterization. Bones/joints: Unremarkable. No acute fracture. Soft tissues: Unremarkable. IMPRESSION: 1. No evidence of pulmonary embolus to the segmental level. 2. No aneurysm of the aorta. 3. No dissection of the aorta. 4. Mild opacities in lower lobes may represent atelectasis or pneumonia . 5. No pulmonary nodule.
[2023-12-30 16:08] LABS: Influenza A, PCR Not Detected (NotDetected); Influenza B, PCR Not Detected (NotDetected)
[2023-12-30 16:10] LABS: Microscopic, Urine URINE MICROSCOPIC (MICROSCOPIC)
[2023-12-30 16:10] LABS: Basophils # 0.1 K/mm3 (0-0.2); Basophils % 0.7 % (0.1-2.0); Eosinophils # 0.2 K/mm3 (0.0-0.4); Eosinophils % 2.7 % (0.1-12.0); Hematocrit 44.1 % (42.0-52.0); Hemoglobin 14.7 g/dL (14.1-18.0); Lymphocytes # 0.6 K/mm3 (0.7-4.5); Mean Corpuscular HGB Conc 33.4 g/dL (31.8-35.4); Mean Platelet Volume 7.6 fl (7.4-10.4); Monocytes # 0.6 K/mm3 (0.1-1.0); Monocytes % 8.1 % (1.7-9.3); Neutrophils # 5.4 K/mm3 (1.8-7.8); Neutrophils % 79.5 % (37.0-80.0); Platelet Count 163 K/mm3 (142-424); White Blood Count 6.8 K/mm3 (4.8-10.8)
[2023-12-30 16:13] LABS: Prothrombin Time 11.2 seconds (10.1-12.5)
[2023-12-30 16:14] LABS: Alanine Aminotransferase 27 U/L (12-78); Albumin Level 3.8 g/dl (3.5-5.0); Albumin/Globulin Ratio 1.1 (1.1-1.8); Alkaline Phosphatase 92 U/L (38-126); Anion Gap 9.1 mEq/L (5-15); Aspartate Amino Transferase 39 U/L (17-59); Bilirubin,Total 1.1 mg/dl (0.2-1.3); Blood Urea Nitrogen 20 mg/dl (9-20); Calcium 8.8 mg/dl (8.4-10.2); Carbon Dioxide 24 mmol/L (22.0-30.0); Chloride 109 mmol/L (98-107); Creatinine Clearance Estimated 50 mL/min (50-200); Estimated Glomerular Filt Rate 57 ml/min (>60); GFR (African American) 69 ML/MIN (>60); Globulin 3.4 g/dL (1.3-3.2); Glucose 97 mg/dl (74-100); Magnesium 1.7 mg/dl (1.6-2.3); Potassium 4.1 mmoL/L (3.5-5.1); Sodium 138 mmol/L (136-145); Total Protein,Serum 7.2 g/dl (6.3-8.2)
[2023-12-30 16:14] LABS: Appearance,Urine CLEAR (Clear); Bilirubin,Urine Negative (Negative); Blood, Urine 2+ (Negative); Color,Urine YELLOW (Yellow); Glucose,Urine (UA) Negative (Negative); Ketones,Urine Negative (Negative); Leukocyte Esterase,Urine Negative (Negative); Nitrate,Urine Negative (Negative); Protein,Urine Negative (Negative); Specific Gravity, Urine 1.015 (1.005-1.030); Urobilinogen,Urine 0.2 EU/dl (0.2)
[2023-12-30 16:17] LABS: Lactic Acid 1.1 mmol/L (0.7-2.1)
[2023-12-30 16:25] LABS: NT Pro Brain Natriuretic Pep. 1250 pg/mL (0-450)
[2023-12-30 16:27] LABS: Activated Partial Thrombo Time 27.4 seconds (22.8-30.6)
[2023-12-30 16:30] LABS: Squamous Epithelial Cell,Urine Occasional #/hpf (0-5)
[2023-12-30 16:30] LABS: Procalcitonin 0.067 ng/mL (0.0-2.0); Troponin I < 0.01 ng/ml (0.00-0.034)
[2023-12-30] MEDS: ACETAMINOPHEN 500MG TAB 1000 MG PO (16:37)
[2023-12-30] MEDS: KETOROLAC 30MG/ML VIAL 15 MG IV (16:37)
--- NOTE | 2023-12-30 16:37 | PC.NURSE ---
Patient is out of room and in CT.
--- NOTE | 2023-12-30 16:48 | PC.NURSE ---
PT TO CT
[2023-12-30] MEDS: 0.9 % SODIUM CHLORIDE 50 ML VIAL IV (17:13)
[2023-12-30] MEDS: SODIUM CHLORIDE 0.9% 10ML SYR (RAD ONLY) 10 ML IV (17:13)
[2023-12-30] MEDS: IOPAMIDOL-370 (76%);100ML BOTTLE 120 ML IV (17:13)
[2023-12-30 17:19] LABS: Coronavirus 19, PCR Detected (NotDetected)
--- NOTE | 2023-12-30 18:02 | PC.NURSE ---
placed patient on 2L via nasal cannula due to low o2 sat
[2023-12-30] MEDS: FUROSEMIDE 40MG/4ML VIAL 40 MG IV (18:47)
[2023-12-30 18:48] LABS: Troponin I < 0.01 ng/ml (0.00-0.034)
--- NOTE | 2023-12-30 19:00 | PC.NURSE ---
spoke with packing house laborer for bed request
--- NOTE | 2023-12-30 19:42 | PC.NURSE ---
report called to Sydni TESFAYE
--- NOTE | 2023-12-30 19:51 | EXP.HP ---
History of Present Illness *Admission Date: 12/30/23 *Reason for visit:: Fevers, Cough *History of present illness: Patient is a 88-year-old male with past medical history of Tak[place]o cardiomyopathy, esophageal cancer, CAD who presents to the hospital due to shortness of breath, fever, cough. According to the patient he has been feeling sick, he noticed fever at home she mentioned that it was around 103. Patient was requiring 2 L nasal cannula in the emergency department, normally patient mentions he is not on oxygen. Patient was also found positive for COVID-19 infection. Assessment and plan Fevers, cough, shortness of breath likely secondary to COVID-19 infection Acute hypoxic respiratory failure satting less than 90% on room air Start dexamethasone DuoNebs, IV remdesivir CTA chest reviewed-negative for PE, negative for consolidation/multifocal infiltrates Currently requiring 2 L nasal cannula, wean as tolerated Patient was given one-time IV Lasix in the emergency department, monitor response, closely monitor BMP History of CAD Resume home metoprolol Monitor on cardiac telemetry Patient has defibrillator Chronic medical conditions CAD GERD Hypertension Hyperlipidemia -Resume home medications DVT prophylaxis-on Lovenox [facility] Disclaimer: The information contained in this section may have been updated after the patient was seen, as this information can be updated by other users. Medical History Atypical angina Chest pain Fall Nonadherence to medication Palpitations Recent myocardial infarction Social History (Updated 12/30/23 @ 22:14 by Gerri Maloney RN) Smoking Status: Never smoker alcohol intake: never substance use type: denies use current occupational status: retired Travel in the last 8 weeks: Inside the [place] household members: spouse housing: house current occupational exposures/hazards: No caffeine: Yes Other Medical History Have you received the Flu Vaccine for this season: Yes Have you received the Pneumonia Vaccine: Yes Review of Systems Review of Systems Review of systems:: pertinent systems reviewed and negative unless documented below Meds Home Medications and Allergies Home Medications ?Medication ?Instructions ?Recorded ?Confirmed ?Type pantoprazole 40 mg tablet,delayed 40 mg PO BID GERD 07/04/20 12/30/23 History release lorazepam 1 mg tablet 1 mg PO TID Anxiety 05/14/22 12/30/23 History uecwuxdi-dz-adrbt 300 mcg-K 60 1 tab PO DAILY 03/07/23 12/30/23 History mcg-lycop 600 mcg-lutein 300 mcg tablet (Centrum Silver Men) ramipril 10 mg capsule (Altace) 10 mg PO DAILY #90 caps 08/09/23 12/30/23 Rx metoprolol succinate 25 mg 25 mg PO DAILY #30 tabs 11/16/23 12/30/23 Rx tablet,extended release 24 hr (Toprol XL) New Prescriptions to Start Prescriptions: Allergies Allergy/AdvReac Type Severity Reaction Status Date / Time oxycodone AdvReac Agitated Verified 04/26/23 13:03 Exam Data for Last 24 hours Vital signs and Labs for Last 24 Hours: Temp Pulse Resp BP Pulse Ox O2 Del Method O2 Flow Rate 98.0 F 65 20 138/79 94 L Nasal Cannula 2 12/30/23 19:42 12/30/23 19:42 12/30/23 19:42 12/30/23 19:42 12/30/23 19:00 12/30/23 19:42 12/30/23 19:42 Laboratory Results - last 24 hr 12/30/23 15:29: SARS-CoV-2 (PCR) Detected A, Influenza A Untype (PCR) Not detected, Influenza Type B (PCR) Not detected 12/30/23 15:31: VBG pH 7.45 H, VBG pCO2 30.3 L, VBG pO2 55.1 H, VBG HCO3 20.6 L, VBG Total CO2 21.6 L, VBG O2 Saturation 90.8 H, VBG Base Excess -3.3 L, VBG Lactic Acid 1.7 12/30/23 15:38: WBC 6.8, RBC 4.60, Hgb 14.7, Hct 44.1, MCV 96.0 H, MCH 32.0 H, MCHC 33.4, RDW 13.0, Plt Count 163, MPV 7.6, Neut % (Auto) 79.5, Lymph % (Auto) 9.0 L, Hill % (Auto) 8.1, Eos % (Auto) 2.7, Baso % (Auto) 0.7, Neut # (Auto) 5.4, Lymph # (Auto) 0.6 L, Hill # (Auto) 0.6, Eos # (Auto) 0.2, Baso # (Auto) 0.1, PT 11.2, INR 1.00, APTT 27.4, Sodium 138, Potassium 4.1, Chloride 109 H, Carbon Dioxide 24, Anion Gap 9.1, BUN 20, Creatinine 1.20, Estimated Creat Clear 50, Estimated GFR 57 L, Est GFR ( Amer) 69, Glucose 97, Lactate 1.1, Calcium 8.8, Magnesium 1.7, Total Bilirubin 1.1, AST 39, ALT 27, Alkaline Phosphatase 92, Troponin I < 0.01, NT-Pro-B Natriuret Pep 1250 H, Total Protein 7.2, Albumin 3.8, Globulin 3.4 H, Albumin/Globulin Ratio 1.1, Procalcitonin 0.067 12/30/23 16:05: Urine Color Yellow, Urine Appearance Clear, Urine pH 6.0, Ur Specific Dawson 1.015, Urine Protein Negative, Urine Glucose (UA) Negative, Urine Ketones Negative, Urine Blood 2+ A, Urine Nitrate Negative, Urine Bilirubin Negative, Urine Urobilinogen 0.2, Ur Leukocyte Esterase Negative, Urine RBC 3-5, Urine WBC None, Ur Squamous Epith Cells Occasional, Urine Bacteria None 12/30/23 18:16: Troponin I < 0.01 I & O for Last 24 hours: Intake & Output 12/27/23 12/28/23 12/29/23 12/30/23 23:59 23:59 23:59 23:59 Weight 79.379 kg Constitutional Constitutional: no acute distress *Routine HEENT Exam Head: Present normocephalic Eye: Present EOMI and PERRL ENT: Present mucous membranes moist *Routine Neck Exam Neck: Present supple; Absent lymphadenopathy *Routine Respiratory Exam Respiratory: Present CTA bilaterally *Routine Cardiovascular Exam Cardiovascular: Present RRR *Routine Abdominal Exam Abdominal: Present soft and normoactive bowel sounds; Absent tenderness *Routine Rectal Exam Rectal:: deferred *Routine Genitalia Exam Genitalia:: deferred *Routine Extremities Exam Extremities: Absent cyanosis, clubbing or edema *Routine Skin Exam Skin: Present warm; Absent rash *Routine Neurological Exam Neurological: Present alert and oriented X3 Assessment and Plan *Assessment and plan (1) Acute hypoxemic respiratory failure: Status: Acute Category: Medical Code(s): J96.01 - Acute respiratory failure with hypoxia (2) COVID-19: Status: Acute Category: Medical Code(s): U07.1 - COVID-19 (3) Bronchitis: Status: Acute Category: Medical Code(s): J40 - Bronchitis, not specified as acute or chronic (4) CAD (coronary artery disease): Status: Acute Qualifiers: Coronary Disease-Associated Artery/Lesion type: [place] artery [place] vs. transplanted heart: [place] heart Associated angina: without angina Qualified Code(s): I25.10 - Atherosclerotic heart disease of [place] coronary artery without angina pectoris Category: Medical Code(s): I25.10 - Atherosclerotic heart disease of [place] coronary artery without angina pectoris Plan Patient is a 88-year-old male with past medical history of Takotsubo cardiomyopathy, esophageal cancer, CAD who presents to the hospital due to shortness of breath, fever, cough. According to the patient he has been feeling sick, he noticed fever at home she mentioned that it was around 103. Patient was requiring 2 L nasal cannula in the emergency department, normally patient mentions he is not on oxygen. Patient was also found positive for COVID-19 infection. Assessment and plan Acute hypoxic respiratory failure satting less than 90% on room air COVID-19 infection Start dexamethasone DuoNebs, IV remdesivir CTA chest reviewed-negative for PE, negative for consolidation/multifocal infiltrates Currently requiring 2 L nasal cannula, wean as tolerated Patient was given one-time IV Lasix in the emergency department, monitor response, closely monitor BMP History of CAD Resume home metoprolol Monitor on cardiac telemetry Patient has defibrillator Chronic medical conditions CAD GERD Hypertension Hyperlipidemia -Resume home medications DVT prophylaxis-on Lovenox
[2023-12-30] MEDS: PANTOPRAZOLE 40MG TABLET 40 MG PO (21:36)
[2023-12-30] MEDS: LORazepam 1MG TABLET 1 MG PO (21:47)
[2023-12-30 21:55] LABS: Troponin I < 0.01 ng/ml (0.00-0.034)
--- NOTE | 2023-12-30 23:46 | PC.NURSE ---
Pharmacy consult to begin Remdesivir. Special Education Coordinator spoke with [facility]. Plan to begin med tomorrow am as not available in house after hours
[2023-12-31] VITALS (7 sets, daily range): BP systolic 115–128; BP diastolic 48–66; PULSE 70–80; RESP 16–18; TEMP 36.9–37.3; O2SAT 94–95; BMI 23.6
[2023-12-31] MEDS: ACETAMINOPHEN 325MG TAB 650 MG PO (02:14)
--- NOTE | 2023-12-31 04:00 | PC.NURSE ---
88 yo male pt admitted with covid and heart failure. Pt is A/O X 4. He is able to ambulate to BR with standby assist. Pt does become SOA with exertion. 02 on at 2 liters per NC. VSS for pt with 02 sats above 90%. NSR per tele. Pt did report feeling like he was chilling. Medicated with tylenol 650 mg for chilling, temp at 100.7. Pt returned to sleep without further complaints. Consulted with [facility] to begin Remdesivir, MAR updated per pharmacy with new med to begin tomorrow
[2023-12-31 07:28] LABS: Anion Gap 7.8 mEq/L (5-15); Blood Urea Nitrogen 22 mg/dl (9-20); Calcium 8.4 mg/dl (8.4-10.2); Carbon Dioxide 27 mmol/L (22.0-30.0); Chloride 106 mmol/L (98-107); Creatinine Clearance Estimated 39 mL/min (50-200); Estimated Glomerular Filt Rate 44 ml/min (>60); GFR (African American) 54 ML/MIN (>60); Glucose 92 mg/dl (74-100); Potassium 3.8 mmoL/L (3.5-5.1); Sodium 137 mmol/L (136-145)
[2023-12-31 07:31] LABS: Basophils % 0.4 % (0.1-2.0); Eosinophils # 0.1 K/mm3 (0.0-0.4); Eosinophils % 1.6 % (0.1-12.0); Hematocrit 41.7 % (42.0-52.0); Hemoglobin 14.1 g/dL (14.1-18.0); Lymphocytes # 0.8 K/mm3 (0.7-4.5); Lymphocytes % 11.5 % (10-50); Mean Corpuscular HGB Conc 33.9 g/dL (31.8-35.4); Mean Corpuscular Hemoglobin 32.4 pg (27.0-31.2); Mean Corpuscular Volume 95.5 fl (80-94); Mean Platelet Volume 7.8 fl (7.4-10.4); Monocytes # 0.8 K/mm3 (0.1-1.0); Monocytes % 11.5 % (1.7-9.3); Neutrophils # 5.2 K/mm3 (1.8-7.8); Neutrophils % 75.1 % (37.0-80.0); Platelet Count 152 K/mm3 (142-424); Red Blood Count 4.36 M/mm3 (4.60-6.20); Red Cell Distribution Width 13.1 % (11.5-17.5); White Blood Count 6.9 K/mm3 (4.8-10.8)
--- NOTE | 2023-12-31 07:32 | HMH.PHAINT1 ---
Pharmacy Intervention Comments: Home medications verified using list from pharmacy.
--- NOTE | 2023-12-31 07:55 | CA_ITS ---
APPROVED REPORT EXAM: Comprehensive 2D, Doppler, and color-flow Echocardiogram Barrel Rifler: Eleni Lund CRT Ht: 6 ft 0 in Wt: 174lbs BSA: 2.01 BP: 138/79 mmHg Indications: covid+, chf, htn, hld, icd, stent, fever 2D Dimensions LA Volume 28.90 mL LA Volume Index 14.00 mL/m2 (M/F) 16-34 M-Mode Dimensions RVDd 2.08 cm (0.9-2.6) LA Diam 3.77 cm (1.9-4.0) LVDd 5.03 cm (3.5-5.7) LVDs 3.89 cm (3.5-5.7) IVSd 2.05 cm (0.6-1.1) PWd 1.01 cm (0.6-1.1) EF (Teich) 45.40% FS 22.70% EDV (Teich) 119.90 mL ESV (Teich) 65.50 mL LV Diastology E Decel Time 187 (160-240 msec) E/A Ratio 0.73 MED A' 12.90 cm/s LAT A' 13.70 cm/s Aortic Valve AI PHT 531.00 ms AO Peak GR. 6.40 mmHg Mitral Valve MV E Max Jesús. 70.0 (40-130 cm/s) MV A Velocity 97.0 (40-130 cm/s) E/A Ratio 0.73 MV PHT 55.0 ms Pulmonary Valve PV Peak Velocity 161.0 (50-150 cm/s) Tricuspid Valve TR P. Velocity 237.00 cm/s RAP Estimate 10.00 mmHg RVSP 32.50 mmHg Left Ventricle The left ventricle is normal size. The left ventricular systolic function is normal. The left ventricular ejection fraction is within the normal range. There is increased LV wall thickness. There is normal LV segmental wall motion. The left ventricular diastolic function is normal. LVEF is 55%. Right Ventricle The right ventricle is mildly dilated. The right ventricular systolic function is normal. There is a device lead in the right ventricle. Atria Left atrium is mildly dilated. Right atrium is mildly dilated. There is no Doppler evidence of interatrial shunt. Aortic Valve The aortic valve is mildly thickened. There is no aortic valvular stenosis. Mild aortic regurgitation. Mitral Valve The mitral valve leaflets are mildly thickened. No evidence of mitral valve stenosis. Mild mitral regurgitation. The MR jet is eccentric and posteriorly directed. The MR severity may be underestimated due to eccentric jet. Tricuspid Valve The tricuspid valve leaflets are thin and pliable. Trace tricuspid regurgitation. There is insufficient TR jet to estimate RVSP. Pulmonic Valve The pulmonary valve is normal in structure. Trace pulmonic regurgitation. Great Vessels The aortic root is normal in size. The ascending aorta is normal in size. IVC is normal in size and collapses >50% with inspiration. Pericardium There is no pericardial effusion. Other Information Study Quality: Fair Conclusion Normal biventricular systolic function. Mild RV dilation. Biatrial dilation. Mild MR. The MR jet is eccentric and posteriorly directed. The MR severity may be underestimated due to eccentric jet. Mild AI. Electronically signed by : Cici Garza MD 12/31/2023 11:03:17
--- OUTSIDE RECORDS SUMMARY | 2023-12-31 08:15 | XMS_ITS ---
Author Organization Unknown ALLERGIES AND ADVERSE REACTIONS No information ASSESSMENT No information CHIEF COMPLAINT No information Problems Date Problem Icd10 02/14/2023 00:00:00 Acid reflux disease K21.9 06/20/2023 00:00:00 Sinusitis J32.9 06/20/2023 00:00:00 Asthma J45.909 OBJECTIVE DATA No information PHYSICAL EXAMINATION No information TREATMENT PLAN No information RESULTS No information REVIEW OF SYSTEMS No information SUBJECTIVE DATA No information VITAL SIGNS No information MEDICATIONS No information
--- OUTSIDE RECORDS SUMMARY | 2023-12-31 08:15 | XMS_ITS ---
Author Organization [facility] ALLERGIES AND ADVERSE REACTIONS No information ASSESSMENT No information CHIEF COMPLAINT No information Vital Signs Bpsitting Date Temperature Heartrate Weight Height Spo2 Bmi Fiel dcount Timerecorded 118/62 2023-0 7-03 98.6 62 177,6 6,0 97 24.0 8 7 10:45 120/76 2023-0 5-14 98.0 58 176,0 6,0 97 23.8 7 7 13:30 null 2023-0 4-10 null null 181,0 6,0 null 24.5 5 3 10:15 96/56 2023-0 2-20 98.7 53 177,0 6,0 93 24 7 15:00 132/70 2023-0 1-02 98.6 null 178,0 6,0 null 24.1 4 5 13:45 100/60 202-1 2-06 98.0 54 176,0 6,0 99 23.8 7 7 10:15 140/60 2022-0 9-26 97.9 null 175,0 6,0 null 23.7 3 5 13:30 null 2022-0 9-12 98.7 null 194,0 6,0 null 26.3 1 4 14:45 OBJECTIVE DATA No information PHYSICAL EXAMINATION No information TREATMENT PLAN No information PROBLEMS No information RESULTS No information REVIEW OF SYSTEMS No information SUBJECTIVE DATA No information MEDICATIONS No information
[2023-12-31] MEDS: PANTOPRAZOLE 40MG TABLET 40 MG PO (09:16)
[2023-12-31] MEDS: METOPROLOL SUCCINATE XL 25MG TABLET 25 MG PO (09:16)
[2023-12-31] MEDS: RAMIPRIL 10MG CAPSULE 10 MG PO (09:16)
[2023-12-31] MEDS: ENOXAPARIN 40MG/0.4ML SYRINGE 40 MG SQ (09:17)
[2023-12-31] MEDS: DEXAMETHASONE 4MG TABLET 6 MG PO (09:17)
[2023-12-31] MEDS: CEPACOL THROAT LOZENGES 16 LOZ/BOX 1 EACH MM (09:51)
[2023-12-31] MEDS: REMDESIVIR 200 MG in 0.9 % SODIUM CHLORIDE 250 ML 250 MG IV (11:37)
--- NOTE | 2023-12-31 13:59 | PC.NURSE ---
pt's O2 sat was 92-93% on room air during ambulation
--- NOTE | 2023-12-31 15:21 | EXP.DC.SUM ---
General Admission date:: 12/30/23 HPI HPI HPI: Patient is a 88-year-old male with past medical history of Takotsubo cardiomyopathy, esophageal cancer, CAD who presents to the hospital due to shortness of breath, fever, cough. According to the patient he has been feeling sick, he noticed fever at home she mentioned that it was around 103. Patient was requiring 2 L nasal cannula in the emergency department, normally patient mentions he is not on oxygen. Patient was also found positive for COVID-19 infection. Assessment and plan Fevers, cough, shortness of breath likely secondary to COVID-19 infection Acute hypoxic respiratory failure satting less than 90% on room air Start dexamethasone DuoNebs, IV remdesivir CTA chest reviewed-negative for PE, negative for consolidation/multifocal infiltrates Currently requiring 2 L nasal cannula, wean as tolerated Patient was given one-time IV Lasix in the emergency department, monitor response, closely monitor BMP History of CAD Resume home metoprolol Monitor on cardiac telemetry Patient has defibrillator Chronic medical conditions CAD GERD Hypertension Hyperlipidemia -Resume home medications DVT prophylaxis-on [facility] Hospital Course Hospital Course Hospital Course: Patient is a 88-year-old male with past medical history of Takotsubo cardiomyopathy, esophageal cancer, CAD who presents to the hospital due to shortness of breath, fever, cough. According to the patient he has been feeling sick, he noticed fever at home she mentioned that it was around 103. Patient was requiring 2 L nasal cannula in the emergency department, normally patient mentions he is not on oxygen. Patient was also found positive for COVID-19 infection. Acute hypoxic respiratory failure COVID-19 infection Acute bronchitis - CTA chest reviewed-negative for PE, negative for consolidation/multifocal infiltrates. - Intially required 2L nasal cannula. - Clinically improved with dexamethasone, remdesivir, duonebs. - Weaned to room air with appropriate saturations. - Discharged with 4 days of Paxlovid and prednisone 40mg. Exam Data for Last 24 hours Vital signs and Labs for Last 24 Hours: Temp Pulse Resp BP Pulse Ox O2 Del Method O2 Flow Rate 98.7 F 80 16 119/66 94 L Room Air 2 12/31/23 11:33 12/31/23 12:00 12/31/23 11:33 12/31/23 11:33 12/31/23 11:33 12/31/23 15:00 12/31/23 13:00 Laboratory Results - last 24 hr 12/30/23 15:29: SARS-CoV-2 (PCR) Detected A, Influenza A Untype (PCR) Not detected, Influenza Type B (PCR) Not detected 12/30/23 15:31: VBG pH 7.45 H, VBG pCO2 30.3 L, VBG pO2 55.1 H, VBG HCO3 20.6 L, VBG Total CO2 21.6 L, VBG O2 Saturation 90.8 H, VBG Base Excess -3.3 L, VBG Lactic Acid 1.7 12/30/23 15:38: WBC 6.8, RBC 4.60, Hgb 14.7, Hct 44.1, MCV 96.0 H, MCH 32.0 H, MCHC 33.4, RDW 13.0, Plt Count 163, MPV 7.6, Neut % (Auto) 79.5, Lymph % (Auto) 9.0 L, [place] % (Auto) 8.1, Eos % (Auto) 2.7, Baso % (Auto) 0.7, Neut # (Auto) 5.4, Lymph # (Auto) 0.6 L, [place] # (Auto) 0.6, Eos # (Auto) 0.2, Baso # (Auto) 0.1, PT 11.2, INR 1.00, APTT 27.4, Sodium 138, Potassium 4.1, Chloride 109 H, Carbon Dioxide 24, Anion Gap 9.1, BUN 20, Creatinine 1.20, Estimated Creat Clear 50, Estimated GFR 57 L, Est GFR ( Amer) 69, Glucose 97, Lactate 1.1, Calcium 8.8, Magnesium 1.7, Total Bilirubin 1.1, AST 39, ALT 27, Alkaline Phosphatase 92, Troponin I < 0.01, NT-Pro-B Natriuret Pep 1250 H, Total Protein 7.2, Albumin 3.8, Globulin 3.4 H, Albumin/Globulin Ratio 1.1, Procalcitonin 0.067 12/30/23 16:05: Urine Color Yellow, Urine Appearance Clear, Urine pH 6.0, Ur Specific [place] 1.015, Urine Protein Negative, Urine Glucose (UA) Negative, Urine Ketones Negative, Urine Blood 2+ A, Urine Nitrate Negative, Urine Bilirubin Negative, Urine Urobilinogen 0.2, Ur Leukocyte Esterase Negative, Urine RBC 3-5, Urine WBC None, Ur Squamous Epith Cells Occasional, Urine Bacteria None 12/30/23 18:16: Troponin I < 0.01 12/30/23 21:18: Troponin I < 0.01 12/31/23 06:36: WBC 6.9, RBC 4.36 L, Hgb 14.1, Hct 41.7 L, MCV 95.5 H, MCH 32.4 H, MCHC 33.9, RDW 13.1, Plt Count 152, MPV 7.8, Neut % (Auto) 75.1, Lymph % (Auto) 11.5, [place] % (Auto) 11.5 H, Eos % (Auto) 1.6, Baso % (Auto) 0.4, Neut # (Auto) 5.2, Lymph # (Auto) 0.8, [place] # (Auto) 0.8, Eos # (Auto) 0.1, Baso # (Auto) 0.0, Sodium 137, Potassium 3.8, Chloride 106, Carbon Dioxide 27, Anion Gap 7.8, BUN 22 H, Creatinine 1.50 H D, Estimated Creat Clear 39, Estimated GFR 44 L, Est GFR ( Amer) 54 L D, Glucose 92, Calcium 8.4 I & O for Last 24 hours: Intake & Output 12/28/23 12/29/23 12/30/23 12/31/23 23:59 23:59 23:59 23:59 Intake Total 600 / 600 Output Total 0 / 0 Balance 600 / 600 Weight 78.925 kg 78.925 kg Constitutional Constitutional: no acute distress *Routine HEENT Exam Head: Present normocephalic Eye: Present EOMI and PERRL ENT: Present mucous membranes moist *Routine Neck Exam Neck: Present supple; Absent lymphadenopathy *Routine Respiratory Exam Respiratory: Present CTA bilaterally *Routine Cardiovascular Exam Cardiovascular: Present RRR *Routine Abdominal Exam Abdominal: Present soft and normoactive bowel sounds; Absent tenderness *Routine Extremities Exam Extremities: Absent cyanosis, clubbing or edema *Routine Skin Exam Skin: Present warm; Absent rash *Routine Neurological Exam Neurological: Present alert and oriented X3 Results Data Completed and Pending Labs on day of discharge: Labs from last 24 hours 12/31/23 12/30/23 12/30/23 06:36 21:18 18:16 WBC 6.9 RBC 4.36 L Hgb 14.1 Hct 41.7 L MCV 95.5 H MCH 32.4 H MCHC 33.9 RDW 13.1 Plt Count 152 MPV 7.8 Neut % (Auto) 75.1 Lymph % (Auto) 11.5 [place] % (Auto) 11.5 H Eos % (Auto) 1.6 Baso % (Auto) 0.4 Neut # (Auto) 5.2 Lymph # (Auto) 0.8 [place] # (Auto) 0.8 Eos # (Auto) 0.1 Baso # (Auto) 0.0 PT INR APTT VBG pH VBG pCO2 VBG pO2 VBG HCO3 VBG Total CO2 VBG O2 Saturation VBG Base Excess VBG Lactic Acid Sodium 137 Potassium 3.8 Chloride 106 Carbon Dioxide 27 Anion Gap 7.8 BUN 22 H Creatinine 1.50 H D Estimated Creat Clear 39 Estimated GFR 44 L Est GFR ( Amer) 54 L D Glucose 92 Lactate Calcium 8.4 Magnesium Total Bilirubin AST ALT Alkaline Phosphatase Troponin I < 0.01 < 0.01 NT-Pro-B Natriuret Pep Total Protein Albumin Globulin Albumin/Globulin Ratio Procalcitonin Urine Color Urine Appearance Urine pH Ur Specific [place] Urine Protein Urine Glucose (UA) Urine Ketones Urine Blood Urine Nitrate Urine Bilirubin Urine Urobilinogen Ur Leukocyte Esterase Urine RBC Urine WBC Ur Squamous Epith Cells Urine Bacteria SARS-CoV-2 (PCR) Influenza A Untype (PCR) Influenza Type B (PCR) 12/30/23 12/30/23 12/30/23 16:05 15:38 15:31 WBC 6.8 RBC 4.60 Hgb 14.7 Hct 44.1 MCV 96.0 H MCH 32.0 H MCHC 33.4 RDW 13.0 Plt Count 163 MPV 7.6 Neut % (Auto) 79.5 Lymph % (Auto) 9.0 L [place] % (Auto) 8.1 Eos % (Auto) 2.7 Baso % (Auto) 0.7 Neut # (Auto) 5.4 Lymph # (Auto) 0.6 L [place] # (Auto) 0.6 Eos # (Auto) 0.2 Baso # (Auto) 0.1 PT 11.2 INR 1.00 APTT 27.4 VBG pH 7.45 H VBG pCO2 30.3 L VBG pO2 55.1 H VBG HCO3 20.6 L VBG Total CO2 21.6 L VBG O2 Saturation 90.8 H VBG Base Excess -3.3 L VBG Lactic Acid 1.7 Sodium 138 Potassium 4.1 Chloride 109 H Carbon Dioxide 24 Anion Gap 9.1 BUN 20 Creatinine 1.20 Estimated Creat Clear 50 Estimated GFR 57 L Est GFR ( Amer) 69 Glucose 97 Lactate 1.1 Calcium 8.8 Magnesium 1.7 Total Bilirubin 1.1 AST 39 ALT 27 Alkaline Phosphatase 92 Troponin I < 0.01 NT-Pro-B Natriuret Pep 1250 H Total Protein 7.2 Albumin 3.8 Globulin 3.4 H Albumin/Globulin Ratio 1.1 Procalcitonin 0.067 Urine Color Yellow Urine Appearance Clear Urine pH 6.0 Ur Specific [place] 1.015 Urine Protein Negative Urine Glucose (UA) Negative Urine Ketones Negative Urine Blood 2+ A Urine Nitrate Negative Urine Bilirubin Negative Urine Urobilinogen 0.2 Ur Leukocyte Esterase Negative Urine RBC 3-5 Urine WBC None Ur Squamous Epith Cells Occasional Urine Bacteria None SARS-CoV-2 (PCR) Influenza A Untype (PCR) Influenza Type B (PCR) 12/30/23 15:29 WBC RBC Hgb Hct MCV MCH MCHC RDW Plt Count MPV Neut % (Auto) Lymph % (Auto) [place] % (Auto) Eos % (Auto) Baso % (Auto) Neut # (Auto) Lymph # (Auto) [place] # (Auto) Eos # (Auto) Baso # (Auto) PT INR APTT VBG pH VBG pCO2 VBG pO2 VBG HCO3 VBG Total CO2 VBG O2 Saturation VBG Base Excess VBG Lactic Acid Sodium Potassium Chloride Carbon Dioxide Anion Gap BUN Creatinine Estimated Creat Clear Estimated GFR Est GFR ( Amer) Glucose Lactate Calcium Magnesium Total Bilirubin AST ALT Alkaline Phosphatase Troponin I NT-Pro-B Natriuret Pep Total Protein Albumin Globulin Albumin/Globulin Ratio Procalcitonin Urine Color Urine Appearance Urine pH Ur Specific [place] Urine Protein Urine Glucose (UA) Urine Ketones Urine Blood Urine Nitrate Urine Bilirubin Urine Urobilinogen Ur Leukocyte Esterase Urine RBC Urine WBC Ur Squamous Epith Cells Urine Bacteria SARS-CoV-2 (PCR) Detected A Influenza A Untype (PCR) Not detected Influenza Type B (PCR) Not detected DS: Diagnosis Discharge Diagnosis (1) Acute hypoxemic respiratory failure: Status: Acute Code(s): J96.01 - Acute respiratory failure with hypoxia (2) COVID-19: Status: Acute Code(s): U07.1 - COVID-19 (3) Bronchitis: Status: Acute Code(s): J40 - Bronchitis, not specified as acute or chronic (4) CAD (coronary artery disease): Status: Acute Code(s): I25.10 - Atherosclerotic heart disease of nondalton coronary artery without angina pectoris Qualifiers: Associated angina: without angina Coronary Disease-Associated Artery/Lesion type: nond[place] artery [place] vs. transplanted heart: nond[place] heart Qualified Code(s): I25.10 - Atherosclerotic heart disease of nondal[place] coronary artery without angina pectoris Meds Home Medications and Allergies Home Medications ?Medication ?Instructions ?Recorded ?Confirmed ?Type pantoprazole 40 mg tablet,delayed 40 mg PO BID 07/04/20 12/30/23 History release lorazepam 1 mg tablet 1 mg PO BID Anxiety 05/14/22 12/31/23 History impadzyn-eu-dpvyb 300 mcg-K 60 1 tab PO DAILY 03/07/23 12/30/23 History mcg-lycop 600 mcg-lutein 300 mcg tablet (Centrum Silver Men) ramipril 10 mg capsule (Altace) 10 mg PO DAILY #90 caps 08/09/23 12/30/23 Rx metoprolol succinate 25 mg 25 mg PO DAILY #30 tabs 11/16/23 12/30/23 Rx tablet,extended release 24 hr (Toprol XL) nirmatrelvir 300 mg (150 mg See Rx Instructions PO .COMPLEX 5 12/31/23 Rx x2)-ritonavir 100 mg tablet,dose days #30 tabs pack (Paxlovid) prednisone 20 mg tablet 40 mg (2 x 20 mg) PO DAILY 4 days 12/31/23 Rx #8 tabs New Prescriptions to Start Prescriptions: nirmatrelvir-ritonavir [Paxlovid] Felix Thompson prednisone Felix Thompson Allergies Allergy/AdvReac Type Severity Reaction Status Date / Time oxycodone AdvReac Agitated Verified 04/26/23 13:03 Discharge Plan Disposition Patient Disposition: Home, Self-Care Discharge Order Discharge Orders: Discharge Order (Routine); Ordered 12/31/23 Ordered By: Felix Thompson Follow up Plan Follow up with: Carlos Marcus MD [Primary Care Provider] - 01/02/24 Prescriptions/Medication Reconciliation: New Paxlovid 300 mg (150 mg x 2)-100 mg tablets,dose pack See Rx Instructions .ROUTE .COMPLEX 5 Days Qty: 30 0RF Rx Instructions: take TWO 150 mg tablets of nirmatrelvir with ONE 100 mg tablet of ritonavir twice daily for 5 days prednisone 20 mg tablet 40 mg PO DAILY 4 Days Qty: 8 0RF Continued Centrum Silver Men [id number] mcg tablet 1 tab PO DAILY ramipril [Altace] 10 mg capsule 10 mg PO DAILY Qty: 90 1RF metoprolol succinate [Toprol XL] 25 mg tablet extended release 24 hr 25 mg PO DAILY Qty: 30 5RF lorazepam 1 MG tablet 1 mg PO BID pantoprazole 40 MG tablet,delayed release (DR/EC) 40 mg PO BID Problem Reconciliation Problems Reviewed?: Yes Patient Discharge Instructions Patient Instructions: DI for Respiratory Failure, DI for COVID-19 (Suspected or Confirmed ) Print Language: [place]ian Providers Primary Care Provider: Carlos Marcus Admit Provider: Felix Thompson Attending Provider: Felix Thompson
== END 2023-12-31 16:17 | disposition home or self-care (01) | DRG 177 ==
LOC: ER 18:46 → 2ND 12-31 02:33
PROVIDERS: Admitting Provider Student in an Organized Health Care Education/Training Program; Emergency Provider Emergency Medicine; PCP Family Medicine; Visit Provider Student in an Organized Health Care Education/Training Program
DX: U07.1 COVID-19 (principal); J96.01 Acute respiratory failure with hypoxia; C15.9 Malignant neoplasm of esophagus, unspecified; I25.10 Atherosclerotic heart disease of native coronary artery without angina pectoris; Z79.899 Other long term (current) drug therapy; R29.6 Repeated falls; I11.0 Hypertensive heart disease with heart failure; I50.9 Heart failure, unspecified; J20.9 Acute bronchitis, unspecified
CPT/HCPCS: 36415; 71046; 71275; 74177; 80048; 80053; 81001; 82803; 83605; 83735; 83880; 84145; 84484; 85025; 85610; 85730; 87040; 87636; 93005; 93306; 99291; J1650; J1885; J1940; J8540; Q9967

== ENCOUNTER 2024-07-09 10:07 | Outpatient (CLI) | payer MEDICARE, OTHER, SELFPAY ==
--- NOTE | 2024-07-09 | XR_ITS ---
FINAL REPORT TECHNIQUE: Chest PA & Lateral CLINICAL HISTORY: SHORTNESS OF BREATH COMPARISON: 02/08/2023 FINDINGS: 2 views of the chest were performed. The heart size is normal. A biventricular pacer is present. The mediastinum is within normal limits. There is no acute cardiopulmonary process. There are no pleural effusions. There is no pneumothorax. The bony thorax appears intact. IMPRESSION: No acute cardiopulmonary process. Reviewed, Interpreted and Dictated by Vincenzo Johnson MD Transcribed by Karen Lowe Authenticated and [facility]
== END 2024-07-09 23:59 | disposition home or self-care (01) ==
LOC: RAD 10:09
PROVIDERS: PCP Family Medicine; Visit Provider Family Medicine
DX: R06.02 Shortness of breath (principal)
CPT/HCPCS: 71046

== ENCOUNTER 2024-11-21 19:48 | Emergency (ER) | payer MEDICARE, OTHER, SELFPAY ==
--- OUTSIDE RECORDS SUMMARY | 2024-11-21 21:23 | XMS_ITS | Encounter Summary ---
Author Organization [employer] ([place], [place], [place], [place]) Address [address] [place] [address] Care Team Providers [employer] Data Analyst Name Role Phone Kaylene Brooke MD Primary Care Provider [phone] Farooq Marcus MD Primary Care Provider [phone] Encounter Details Date Type Department Care Team (Late st Contact Info) Description 10/13/2020 Transcribed Document [facility] [place] [address] [place] [address] ProviderRayray MD [address] [place] [address] Social History Tobacco Use Types Packs/Day Years Used Date Smoking Tobacco: Never Assessed Sex and Gender Information Value Date Recorded Sex Assigned at Not on file Legal Sex Male 5:14 PM CDT Gender Identity Not on file Sexual Orientation Not on file documented as of this encounter Miscellaneous Notes * Cerner Conversion Note - Rayray San MD - 10/13/2020 11:38 AM CDT [facility] [address] [place] [id number] [place] :1935 Visit Time:10/10/2020 Your Visit Summary Your Care Team Admitting Physician - KEISHA TUCKER MD Attending Physician - KEISHA TUCKER MD Primary Care Physician - MAZIN SHERIDAN MD-[facility] Referring Physician - SHAINA, NOT LISTED Your Diagnosis Intractable nausea and vomiting, Nausea with vomiting, unspecified, Nausea with vomiting, unspecified Gastritis Esophageal cancer Dehydration Generalized weakness Hypokalemia Depression Blepharitis Severe protein-calorie malnutrition Malnourished Nausea Post chemo evaluation Vomiting Vomiting These Are Your Goals Patient Discharge Goal Patient Discharge Goal: Home What to do next Instructions From Your Care Team STOP the following medications: STOP Bactrim (sulfamethoxazole-TMP) STOP Pepcid (famotidine) STOP Effexor (venlafaxine) 75 mg tablets --- Dose has been increased and NEW RX Provided. Discharge Activity: Activity as tolerated Discharge Diet: Resume usual diet as tolerated Follow-Up Appointments Follow Up with JALEN ENCISO MD-ONC When 10/21/2020 03:30 PM EDT Comments Oncology follow up. Appointment has been made. Bring discharge instructions with you. [facility] [address] [address] Follow Up with MAZIN SHERIDAN MD-FAM When 10/20/2020 10:30 AM EDT Comments PCP follow up. Appointment has been made. Bring discharge instructions with you. Where: [address] [place] [address]- Medications What How Much When Instructions Next Dose erythromycin ophthalmic (erythromycin 0.5% ophthalmic ointment) 1 Application(s) Eye Left Two Times A Day Duration: 5 Day(s) Pickup at [facility] this evening megestrol (Megace 40 mg/ mL oral suspension) 20 Milliliter(s) Oral Every Day Duration: 30 Day(s) Pickup at [facility] tomorrow metoclopramide (Reglan 10 mg oral tablet) 1 Tablet(s) Oral Before Meals and at Bedtime Duration: 14 Day(s) Pickup at [facility] at lunchtime sucralfate (Carafate 1 g/ 10 mL oral suspension) 10 Milliliter(s) Oral Before Meals Duration: 10 Day(s) Pickup at [facility] at lunchtime LORazepam (Ativan 1 mg oral tablet) 1 Tablet(s) Oral Three Times A Day as needed for as needed for anxiety as needed clopidogrel (Plavix 75 mg oral tablet) 1 Tablet(s) Oral Every Day tomorrow venlafaxine (Effexor XR 150 mg oral capsule, extended release) 1 Capsule(s) Oral Every Day NEW DOSE Pickup at [facility] tomorrow aspirin 81 Milligram(s) Oral Every Day tomorrow multivitamin 1 Tablet(s) Oral Every Day tomorrow ondansetron (Zofran 8 mg oral tablet) 1 Tablet(s) Oral Three Times A Day as needed for Nausea as needed pantoprazole (pantoprazole 40 mg oral delayed release tablet) 1 Tablet(s) Oral Every Day tomorrow Pharmacy Information [facility]: [id number] [facility] [address] [place] [phone] Take your medications faithfully. Do NOT skip medication. Do NOT stop taking medications without the direction of a physician. Carry a list of your medications with you at all times, and take this medication list with you to your first follow up visit. Report any side effects. Avoid herbal remedies unless discussed with your physician. As part of your treatment plan, your physician may have prescribed a limited course of a controlled substance. This medication may be given to help people with moderate or severe pain or for other medical conditions, but there are risks involved with treatment. Common side effects may include nausea, constipation, drowsiness, sweating, itching, dry mouth, and rash. More serious side effects may include cognitive and motor impairment, like problems with thinking, concentrating, alertness, and movement (e.g. slowed reflexes), and driving and operating heavy machinery can be dangerous. It is important for you to talk to your physician if you have these side effects or questions. These controlled substances can produce physical dependence and be habit-forming if taken for an extended period of time, which means that the body has gotten used to them and may experience withdrawal symptoms if they are abruptly stopped. Withdrawal symptoms can include runny nose, sweating, goose bumps, diarrhea, abdominal cramping, rapid heartbeat, difficulty sleeping, and nervousness. Please dispose of unused and medications per your retail pharmacy guidance. Allergies oxyCODONE Immunizations This Visit No Immunizations Found Education Materials Gastritis, Adult Gastritis is swelling (inflammation) of the stomach. Gastritis can develop quickly (acute). It can also develop slowly over time (chronic). It is important to get help for this condition. If you do not get help, your stomach can bleed, and you can get sores (ulcers) in your stomach. What are the causes? This condition may be caused by: ??? Germs that get to your stomach. ??? Drinking too much alcohol. ??? Medicines you are taking. ??? Too much acid in the stomach. ??? A disease of the intestines or stomach. ??? Stress. ??? An allergic reaction. ??? Crohn's disease. ??? Some cancer treatments (radiation). Sometimes the cause of this condition is not known. What are the signs or symptoms? Symptoms of this condition include: ??? Pain in your stomach. ??? A burning feeling in your stomach. ??? Feeling sick to your stomach (nauseous). ??? Throwing up (vomiting). ??? Feeling too full after you eat. ??? Weight loss. ??? Bad breath. ??? Throwing up blood. ??? Blood in your poop (stool). How is this diagnosed? This condition may be diagnosed with: ??? Your medical history and symptoms. ??? A physical exam. ??? Tests. These can include: ? Blood tests. ? Stool tests. ? A procedure to look inside your stomach (upper endoscopy). ? A test in which a sample of tissue is taken for testing (biopsy). How is this treated? Treatment for this condition depends on what caused it. You may be given: ??? Antibiotic medicine, if your condition was caused by germs. ??? H2 blockers and similar medicines, if your condition was caused by too much acid. Follow these instructions at home: Medicines ??? Take [id number] and prescription medicines only as told by your doctor. ??? If you were prescribed an antibiotic medicine, take it as told by your doctor. Do not stop taking it even if you start to feel better. Eating and drinking ??? Eat small meals often, instead of large meals. ??? Avoid foods and drinks that make your symptoms worse. ??? Drink enough fluid to keep your pee (urine) pale yellow. Alcohol use ??? Do not drink alcohol if: ? Your doctor tells you not to drink. ? You are , may be , or are planning to become . ??? If you drink alcohol: ? Limit your use to: ? 0???1 drink a day for women. ? 0???2 drinks a day for men. ? Be aware of how much alcohol is in your drink. In the [place] one drink equals one 12 oz bottle of beer (355 mL), one 5 oz glass of wine (148 mL), or one 1?? oz glass of hard liquor (44 mL). General instructions ??? Talk with your doctor about ways to manage stress. You can exercise or do deep breathing, meditation, or yoga. ??? Do not smoke or use products that have nicotine or tobacco. If you need help quitting, ask your doctor. ??? Keep all follow-up visits as told by your doctor. This is important. Contact a doctor if: ??? Your symptoms get worse. ??? Your symptoms go away and then come back. Get help right away if: ??? You throw up blood or something that looks like coffee grounds. ??? You have black or dark red poop. ??? You throw up any time you try to drink fluids. ??? Your stomach pain gets worse. ??? You have a fever. ??? You do not feel better after one week. Summary ??? Gastritis is swelling (inflammation) of the stomach. ??? You must get help for this condition. If you do not get help, your stomach can bleed, and you can get sores (ulcers). ??? This condition is diagnosed with medical history, physical exam, or tests. ??? You can be treated with medicines for germs or medicines to block too much acid in your stomach. This information is not intended to replace advice given to you by your health care provider. Make sure you discuss any questions you have with your health care provider. Document Revised: 07/16/2018 Document Reviewed: 07/16/2018 [employer] Patient Education ?? 2020 [employer] metoclopramide (oral/injection) (MET oh TRAN martinez) Metozolv ODT, Reglan What is the most important information I should know about metoclopramide? Do not use this medicine if you've ever had muscle movement problems after using metoclopramide or similar medicines, or if you've had a movement disorder called tardive dyskinesia. You also should not use metoclopramide if you've had stomach or intestinal problems (a blockage, bleeding, or a hole or tear), epilepsy or other seizure disorder, or an adrenal gland tumor (pheochromocytoma). NEVER USE METOCLOPRAMIDE IN LARGER AMOUNTS THAN RECOMMENDED, OR FOR LONGER THAN 12 WEEKS. High doses or long-term use of metoclopramide can cause a serious movement disorder that may not be reversible. The longer you use metoclopramide, the more likely you are to develop this movement disorder. The risk of this side effect is higher in diabetics and older adults (especially women). Call your doctor at once if you have uncontrollable muscle movements in your lips, tongue, eyes, face, arms, or legs. What is metoclopramide? Metoclopramide increases muscle contractions in the upper digestive tract. This speeds up the rate at which the stomach empties into the intestines. Metoclopramide oral (taken by mouth) is used for 4 to 12 weeks to treat heartburn caused by gastroesophageal reflux in people who have used other medications without relief. Metoclopramide oral is also used to treat gastroparesis (slow stomach emptying) in people with diabetes, which can cause heartburn and stomach discomfort after meals. Metoclopramide injection is used to treat severe diabetic gastroparesis. The injection is also used to prevent nausea and vomiting caused by chemotherapy or surgery, or to aid in certain medical procedures involving the stomach or intestines. Metoclopramide may also be used for purposes not listed in this medication guide. What should I discuss with my healthcare provider before using metoclopramide? You should not use metoclopramide if you are allergic to it, or if you have: ?? tardive dyskinesia (a disorder of involuntary movements); ?? stomach or intestinal problems such as a blockage, bleeding, or perforation (a hole or tear in your stomach or intestines); ?? epilepsy or other seizure disorder; ?? an adrenal gland tumor (pheochromocytoma); or ?? if you've ever had muscle movement problems after using metoclopramide or similar medicines. Tell your doctor if you have ever had: ?? liver or kidney disease; ?? problems with muscle movements; ?? congestive heart failure or a heart rhythm disorder; ?? high blood pressure; ?? seizures; ?? breast cancer; ?? Parkinson's disease; ?? diabetes; or ?? depression or mental illness. This medicine may contain phenylalanine. Check the medication label if you have phenylketonuria (PKU). Tell your doctor if you are . Metoclopramide may harm an unborn baby if you use the medicine during late . It may not be safe to breast-feed a baby while you are using this medicine. Ask your doctor about any risks. Metoclopramide is not approved for use by anyone younger than 18 years old. How should I use metoclopramide? Follow the directions on your prescription label and read all medication guides. Use the medicine exactly as directed. A metoclopramide injection is given into a muscle or as an infusion into a vein. A healthcare provider will give the injection, usually during surgery, chemotherapy, or a medical procedure. Metoclopramide oral is taken for only 4 to 12 weeks. NEVER USE METOCLOPRAMIDE IN LARGER AMOUNTS THAN RECOMMENDED, OR FOR LONGER THAN 12 WEEKS. High doses or long-term use of metoclopramide can cause a serious movement disorder that may not be reversible. The longer you use metoclopramide, the more likely you are to develop this movement disorder. The risk of this side effect is higher in diabetics and older adults (especially women). Metoclopramide is usually taken 30 minutes before meals and at bedtime, or only with meals that usually cause heartburn. Follow your doctor's dosing instructions very carefully. Do not use two different forms of metoclopramide (such as tablets and oral syrup) at the same time. Measure liquid medicine carefully. Use the dosing syringe provided, or use a medicine dose-measuring device (not a kitchen spoon). To take the orally disintegrating tablet (ODT): ?? Remove a tablet from its blister pack only when you are ready to take the tablet. Use dry hands and take care not to damage a tablet while pushing it out of the blister. ?? Place the tablet in your mouth and allow it to dissolve, without chewing or swallowing it whole. You may sip liquid if needed to help swallow the dissolved tablet. Store at room temperature in a tightly-closed container, away from moisture and heat. Keep the bottle tightly closed. After you stop taking metoclopramide, you may have unpleasant withdrawal symptoms such as headache, dizziness, or nervousness. What happens if I miss a dose? Take the medicine as soon as you can, but skip the missed dose if it is almost time for your next dose. Do not take two doses at one time. What happens if I overdose? Seek emergency medical attention or call the Poison Help line at . Overdose symptoms may include drowsiness, confusion, or uncontrolled muscle movements. What should I avoid while taking metoclopramide? Drinking alcohol with this medicine can cause side effects. Avoid driving or hazardous activity until you know how this medicine will affect you. Your reactions could be impaired. What are the possible side effects of metoclopramide? Get emergency medical help if you have signs of an allergic reaction: hives; difficult breathing; swelling of your face, lips, tongue, or throat. Stop taking metoclopramide and call your doctor at once if you have any of these SIGNS OF A SERIOUS MOVEMENT DISORDER, which may occur within the first 2 days of treatment: ?? tremors or shaking in your arms or legs; ?? uncontrolled muscle movements in your face (chewing, lip smacking, frowning, tongue movement, blinking or eye movement); or ?? any new or unusual muscle movements you cannot control. Call your doctor at once if you have: ?? confusion, depression, thoughts of suicide or hurting yourself; ?? slow or jerky muscle movements, problems with balance or walking; ?? mask-like appearance in your face; ?? a seizure; ?? anxiety, agitation, jittery feeling, trouble staying still, trouble sleeping; ?? swelling, feeling short of breath, rapid weight gain; or ?? severe nervous system reaction--very stiff (rigid) muscles, high fever, sweating, confusion, fast or uneven heartbeats, tremors, feeling like you might pass out. Common side effects may include: ?? feeling restless; ?? feeling drowsy or tired; ?? lack of energy; ?? nausea, vomiting; ?? headache, confusion; or ?? sleep problems (insomnia). This is not a complete list of side effects and others may occur. Call your doctor for medical advice about side effects. You may report side effects to FDA at 1-264-FYP-4826. What other drugs will affect metoclopramide? Using metoclopramide with other drugs that make you drowsy can worsen this effect. Ask your doctor before you take opioid pain medication, a sleeping pill, a muscle relaxer, or medicine for anxiety, depression, or seizures. Tell your doctor about all your current medicines. Many drugs can affect metoclopramide, especially: ?? an antidepressant; ?? antipsychotic medication; ?? blood pressure medication; ?? insulin; ?? medicine to treat Parkinson's disease or restless leg syndrome; or ?? an MAO inhibitor--isocarboxazid, linezolid, methylene blue injection, phenelzine, tranylcypromine, and others. This list is not complete and many other drugs may affect metoclopramide. This includes prescription and nsjx-jyz-[id number] medicines, vitamins, and herbal products. Not all possible drug interactions are listed here. Where can I get more information? Your pharmacist can provide more information about metoclopramide. Remember, keep this and all other medicines out of the reach of children, never share your medicines with others, and use this medication only for the indication prescribed. Every effort has been made to ensure that the information provided by [employer]. [employer]') is accurate, up-to-date, and complete, but no guarantee is made to that effect. Drug information contained herein may be time sensitive. [employer] information has been compiled for use by healthcare practitioners and consumers in the [place] and therefore [employer] does not warrant that uses outside of the [place] are appropriate, unless specifically indicated otherwise. [employer] drug information does not endorse drugs, diagnose patients or recommend therapy. [employer] drug information is an informational resource designed to assist licensed healthcare practitioners in caring for their patients and/or to serve consumers viewing this service as a supplement to, and not a substitute for, the expertise, skill, knowledge and judgment of healthcare practitioners. The absence of a warning for a given drug or drug combination in no way should be construed to indicate that the drug or drug combination is safe, effective or appropriate for any given patient. [employer] does not assume any responsibility for any aspect of healthcare administered with the aid of information [employer] provides. The information contained herein is not intended to cover all possible uses, directions, precautions, warnings, drug interactions, allergic reactions, or adverse effects. If you have questions about the drugs you are taking, check with your doctor, nurse or pharmacist. Copyright 1788-6994 [employer]. Version: 12.01. Revision Date: 05/17/2017. erythromycin ophthalmic (Alize BELL sin off THAL amari) Eyemycin What is the most important information I should know about erythromycin ophthalmic? Follow all directions on your medicine label and package. Tell each of your healthcare providers about all your medical conditions, allergies, and all medicines you use. What is erythromycin ophthalmic? Erythromycin is an antibiotic that fights bacteria. Erythromycin ophthalmic (for the eyes) is used to treat bacterial infections of the eyes. Erythromycin ophthalmic may also be used for purposes not listed in this medication guide. What should I discuss with my healthcare provider before using erythromycin ophthalmic? You should not use this medicine if you are allergic to erythromycin. ?? a viral or fungal infection in your eye. It is not known whether this medicine will harm an unborn baby. Tell your doctor if you are or plan to become . It may not be safe to breast-feed while using this medicine. Ask your doctor about any risk. How should I use erythromycin ophthalmic? Follow all directions on your prescription label and read all medication guides or instruction sheets. Use the medicine exactly as directed. Wash your hands before using eye medication. To apply the ointment: ?? Tilt your head back slightly and pull down your lower eyelid to create a small pocket. Hold the ointment tube with the tip pointing toward this pocket. Look up and away from the tip. ?? Squeeze out a ribbon of ointment into the lower eyelid pocket without touching the tip of the tube to your eye. Blink your eye gently and then keep it closed for 1 or 2 minutes. ?? Use a tissue to wipe excess ointment from your eyelashes. ?? After opening your eyes, you may have blurred vision for a short time. Avoid driving or doing anything that requires you to be able to see clearly. Do not touch the tip of the ointment tube or place it directly on your eye. A contaminated tube tip can infect your eye, which could lead to serious vision problems. Use this medicine for the full prescribed length of time, even if your symptoms quickly improve. Skipping doses can increase your risk of infection that is resistant to medication. Erythromycin ophthalmic will not treat a viral or fungal eye infection. Store at room temperature away from moisture and heat. Keep the tube tightly closed when not in use. What happens if I miss a dose? Use the medicine as soon as you can, but skip the missed dose if it is almost time for your next dose. Do not use two doses at one time. What happens if I overdose? Seek emergency medical attention or call the Poison Help line at . What should I avoid while using erythromycin ophthalmic? This medicine may cause blurred vision and may impair your reactions. Avoid driving or hazardous activity until you know how this medicine will affect you. Do not use other eye medications unless your doctor tells you to. What are the possible side effects of erythromycin ophthalmic? Get emergency medical help if you have signs of an allergic reaction: hives; difficult breathing; swelling of your face, lips, tongue, or throat. Stop using erythromycin ophthalmic and call your doctor at once if you have: ?? severe burning, stinging, or irritation after using this medicine; or ?? signs of eye infection--pain, swelling, severe discomfort, crusting or drainage, eyes more sensitive to light. Common side effects may include: ?? eye redness; or ?? mild eye irritation. This is not a complete list of side effects and others may occur. Call your doctor for medical advice about side effects. You may report side effects to FDA at 8-920-YCV-6148. What other drugs will affect erythromycin ophthalmic? Medicine used in the eyes is not likely to be affected by other drugs you use. But many drugs can interact with each other. Tell each of your healthcare providers about all medicines you use, including prescription and qpxu-qjy-gokyxey medicines, vitamins, and herbal products. Where can I get more information? Your pharmacist can provide more information about erythromycin ophthalmic. Remember, keep this and all other medicines out of the reach of children, never share your medicines with others, and use this medication only for the indication prescribed. Every effort has been made to ensure that the information provided by [employer]. [employer]') is accurate, up-to-date, and complete, but no guarantee is made to that effect. Drug information contained herein may be time sensitive. [employer] information has been compiled for use by healthcare practitioners and consumers in the [place] and therefore [employer] does not warrant that uses outside of the [place] are appropriate, unless specifically indicated otherwise. [employer] drug information does not endorse drugs, diagnose patients or recommend therapy. [employer] drug information is an informational resource designed to assist licensed healthcare practitioners in caring for their patients and/or to serve consumers viewing this service as a supplement to, and not a substitute for, the expertise, skill, knowledge and judgment of healthcare practitioners. The absence of a warning for a given drug or drug combination in no way should be construed to indicate that the drug or drug combination is safe, effective or appropriate for any given patient. [facility] does not assume any responsibility for any aspect of healthcare administered with the aid of information [facility] provides. The information contained herein is not intended to cover all possible uses, directions, precautions, warnings, drug interactions, allergic reactions, or adverse effects. If you have questions about the drugs you are taking, check with your doctor, nurse or pharmacist. Copyright 8844-7264 [facility]. Version: 7.01. Revision Date: 11/07/2017. venlafaxine (CLARA la fax een) Effexor XR What is the most important information I should know about venlafaxine? Some young people have thoughts about suicide when first taking an antidepressant. Stay alert to changes in your mood or symptoms. Report any new or worsening symptoms to your doctor. What is venlafaxine? Venlafaxine is a serotonin and norepinephrine reuptake inhibitor (SNRI) antidepressant. Venlafaxine is used in adults to treat major depressive disorder, anxiety, and panic disorder. Venlafaxine may also be used for purposes not listed in this medication guide. What should I discuss with my healthcare provider before taking venlafaxine? You should not take this medicine if you are allergic to venlafaxine or desvenlafaxine (Pristiq), or if you have uncontrolled narrow-angle glaucoma. Do not use venlafaxine within 7 days before or 14 days after you have used an MAO inhibitor, such as isocarboxazid, linezolid, methylene blue injection, phenelzine, or tranylcypromine. A dangerous drug interaction could occur. Tell your doctor if you also take stimulant medicine, opioid medicine, herbal products, or medicine for depression, mental illness, Parkinson's disease, migraine headaches, serious infections, or prevention of nausea and vomiting. An interaction with venlafaxine could cause a serious condition called serotonin syndrome. Tell your doctor if you have ever had: ?? bipolar disorder (manic depression); ?? liver disease; ?? kidney disease; ?? heart disease, high blood pressure, high cholesterol; ?? diabetes; ?? glaucoma; ?? a thyroid disorder; ?? a seizure; ?? bleeding problems; or ?? low blood levels of sodium. Some young people have thoughts about suicide when first taking an antidepressant. Your doctor should check your progress at regular visits. Your family or other caregivers should also be alert to changes in your mood or symptoms. Not approved for use by anyone younger than 18 years old. Taking this medicine during could harm the baby, but stopping the medicine may not be safe for you. Do not start or stop venlafaxine without asking your doctor. Do not breastfeed. How should I take venlafaxine? Follow all directions on your prescription label and read all medication guides or instruction sheets. Use the medicine exactly as directed. Take with food at the same time each day. Swallow the extended-release capsule or tablet whole and do not crush, chew, break, or open it. If you cannot swallow a capsule whole, open it and mix the medicine with applesauce. Swallow the mixture right away without chewing. Do not stop using venlafaxine suddenly, or you could have unpleasant symptoms (such as agitation, confusion, tingling or electric shock feelings). Ask your doctor how to safely stop using this medicine. Your symptoms may not improve for several weeks. You may have unpleasant symptoms if you stop using venlafaxine suddenly. Ask your doctor before stopping the medicine. Your blood pressure will need to be checked often. This medicine may cause false results on a drug-screening urine test. Tell the laboratory staff that you use venlafaxine. Store at room temperature away from moisture and heat. What happens if I miss a dose? Take the medicine as soon as you can, but skip the missed dose if it is almost time for your next dose. Do not take two doses at one time. What happens if I overdose? Seek emergency medical attention or call the Poison Help line at . What should I avoid while taking venlafaxine? Do not drink alcohol. Ask your doctor before taking a nonsteroidal anti-inflammatory drug (NSAID) such as aspirin, ibuprofen, naproxen, Advil, Aleve, Motrin, and others. Using an NSAID with venlafaxine may cause you to bruise or bleed easily. Avoid driving or hazardous activity until you know how this medicine will affect you. Your reactions could be impaired. What are the possible side effects of venlafaxine? Get emergency medical help if you have signs of an allergic reaction: skin rash or hives; difficulty breathing; swelling of your face, lips, tongue, or throat. Report any new or worsening symptoms to your doctor, such as: mood or behavior changes, anxiety, panic attacks, trouble sleeping, or if you feel impulsive, irritable, agitated, hostile, aggressive, restless, hyperactive (mentally or physically), more depressed, or have thoughts about suicide or hurting yourself. Call your doctor at once if you have: ?? blurred vision, eye pain or redness, seeing halos around lights; ?? cough, chest tightness, trouble breathing; ?? a seizure (convulsions); ?? unusual bleeding--nosebleeds, bleeding gums, abnormal vaginal bleeding, any bleeding that will not stop; ?? low blood sodium--headache, confusion, problems with thinking or memory, weakness, feeling unsteady; or ?? severe nervous system reaction--very stiff (rigid) muscles, high fever, sweating, confusion, fast or uneven heartbeats, tremors, feeling like you might pass out. Seek medical attention right away if you have symptoms of serotonin syndrome, such as: agitation, hallucinations, fever, sweating, shivering, fast heart rate, muscle stiffness, twitching, loss of coordination, nausea, vomiting, or diarrhea Common side effects may include: ?? headache, dizziness, drowsiness, tiredness; ?? feeling anxious, nervous, or jittery; ?? sleep problems, unusual dreams; ?? tremors; ?? fast heartbeats; ?? blurred vision; ?? nausea, vomiting, diarrhea, constipation; ?? changes in weight or appetite; ?? dry mouth, yawning; ?? increased sweating; or ?? sexual problems. This is not a complete list of side effects and others may occur. Call your doctor for medical advice about side effects. You may report side effects to FDA at 4-526-YXZ-3839. What other drugs will affect venlafaxine? Using venlafaxine with other drugs that make you drowsy can worsen this effect. Ask your doctor before using opioid medication, a sleeping pill, a muscle relaxer, or medicine for anxiety or seizures. Tell your doctor about all your current medicines. Many drugs can affect venlafaxine, especially: ?? any other antidepressant; ?? cimetidine; ?? tramadol; ?? Pepe's wort, tryptophan (sometimes called L-tryptophan); ?? diet pills, weight loss medicine (such as phentermine); ?? a blood thinner--warfarin, Coumadin, Jantoven; ?? medicine to treat mood disorders, thought disorders, or mental illness--buspirone, lithium, and many others; or ?? migraine headache medicine--sumatriptan, zolmitriptan, and others. This list is not complete and many other drugs may affect venlafaxine. This includes prescription and zwuk-avd-efnlmyd medicines, vitamins, and herbal products. Not all possible drug interactions are listed here. Where can I get more information? Your pharmacist can provide more information about venlafaxine. Remember, keep this and all other medicines out of the reach of children, never share your medicines with others, and use this medication only for the indication prescribed. Every effort has been made to ensure that the information provided by [employer] is accurate, up-to-date, and complete, but no guarantee is made to that effect. Drug information contained herein may be time sensitive. [employer] information has been compiled for use by healthcare practitioners and consumers in the [place] and therefore [employer] does not warrant that uses outside of the [place] are appropriate, unless specifically indicated otherwise. [employer] drug information does not endorse drugs, diagnose patients or recommend therapy. [employer] drug information is an informational resource designed to assist licensed healthcare practitioners in caring for their patients and/or to serve consumers viewing this service as a supplement to, and not a substitute for, the expertise, skill, knowledge and judgment of healthcare practitioners. The absence of a warning for a given drug or drug combination in no way should be construed to indicate that the drug or drug combination is safe, effective or appropriate for any given patient. [employer] does not assume any responsibility for any aspect of healthcare administered with the aid of information [employer] provides. The information contained herein is not intended to cover all possible uses, directions, precautions, warnings, drug interactions, allergic reactions, or adverse effects. If you have questions about the drugs you are taking, check with your doctor, nurse or pharmacist. Copyright [id number] [employer]. Version: 16.02. Revision Date: 08/26/2020. sucralfate (oral) (michael TERI fate) Carafate What is the most important information I should know about sucralfate? The liquid form of sucralfate should never be injected through a needle into the body, or may occur. What is sucralfate? Sucralfate is used short-term (up to 8 weeks) to treat an active duodenal ulcer. Sucralfate works mainly in the lining of the stomach and is not highly absorbed into the body. This medicine adheres to ulcer sites and protects them from acids, enzymes, and bile salts. Sucralfate can heal an active ulcer, but it will not prevent future ulcers from occurring. Sucralfate may also be used for purposes not listed in this medication guide. What should I discuss with my healthcare provider before taking sucralfate? You should not use sucralfate if you are allergic to it. Tell your doctor if you have ever had: ?? diabetes; ?? kidney disease (or if you are on dialysis); or ?? trouble swallowing tablets. Older adults may be more sensitive to the effects of this medicine. Tell your doctor if you are or . Do not give this medicine to a child without medical advice. How should I take sucralfate? Follow all directions on your prescription label and read all medication guides or instruction sheets. Use the medicine exactly as directed. Take sucralfate on an empty stomach. Shake the oral suspension (liquid) before you measure a dose. Use the dosing syringe provided, or use a medicine dose-measuring device (not a kitchen spoon). If you are diabetic, check your blood sugar regularly. Your doctor may adjust your dose based on your blood sugar levels. The liquid from of this medicine should never be injected through a needle into the body, or may occur. Sucralfate oral suspension is to be taken only by mouth. It may take 2 to 8 weeks before you receive the full benefit of taking sucralfate. Use this medicine for the full prescribed length of time, even if your symptoms quickly improve. Your doctor may want you to keep taking sucralfate at a lower dose once your active ulcer has healed. Follow your doctor's dosing instructions very carefully. Store at room temperature away from moisture and heat. Do not allow the liquid medicine to freeze. What happens if I miss a dose? Take the medicine as soon as you can, but skip the missed dose if it is almost time for your next dose. Do not take two doses at one time. What happens if I overdose? Seek emergency medical attention or call the Poison Help line at . What should I avoid while taking sucralfate? Avoid taking any other medications within 2 hours before or after you take sucralfate. Sucralfate can make it harder for your body to absorb other medications you take by mouth. Ask your doctor before using an antacid, and use only the type your doctor recommends. Some antacids can make it harder for sucralfate to work in your stomach. Avoid taking an antacid within 30 minutes before or after taking sucralfate. What are the possible side effects of sucralfate? Get emergency medical help if you have signs of an allergic reaction: hives; difficult breathing; swelling of your face, lips, tongue, or throat. Common side effects may include: ?? constipation, diarrhea; ?? nausea, vomiting, gas, indigestion; ?? itching, rash; ?? dizziness, drowsiness; ?? sleep problems (insomnia); ?? headache; or ?? back pain. This is not a complete list of side effects and others may occur. Call your doctor for medical advice about side effects. You may report side effects to FDA at 9-614-WMO-4100. What other drugs will affect sucralfate? Other drugs may affect sucralfate, including prescription and vxee-png-zxprcvl medicines, vitamins, and herbal products. Tell your doctor about all your current medicines and any medicine you start or stop using. Where can I get more information? Your pharmacist can provide more information about sucralfate. Remember, keep this and all other medicines out of the reach of children, never share your medicines with others, and use this medication only for the indication prescribed. Every effort has been made to ensure that the information provided by [employer] is accurate, up-to-date, and complete, but no guarantee is made to that effect. Drug information contained herein may be time sensitive. [employer] information has been compiled for use by healthcare practitioners and consumers in the [place] and therefore [employer] does not warrant that uses outside of the [place] are appropriate, unless specifically indicated otherwise. [employer] drug information does not endorse drugs, diagnose patients or recommend therapy. [employer] drug information is an informational resource designed to assist licensed healthcare practitioners in caring for their patients and/or to serve consumers viewing this service as a supplement to, and not a substitute for, the expertise, skill, knowledge and judgment of healthcare practitioners. The absence of a warning for a given drug or drug combination in no way should be construed to indicate that the drug or drug combination is safe, effective or appropriate for any given patient. [facility] does not assume any responsibility for any aspect of healthcare administered with the aid of information [employer] provides. The information contained herein is not intended to cover all possible uses, directions, precautions, warnings, drug interactions, allergic reactions, or adverse effects. If you have questions about the drugs you are taking, check with your doctor, nurse or pharmacist. Copyright [id number] [facility] [employer]. Version: 12.10. Revision Date: 05/13/2020. megestrol (mirian rivero) Dianne ASHTON What is the most important information I should know about megestrol? Do not use if you are . Use effective control, and tell your doctor if you become during treatment. What is megestrol? Megestrol is used to treat loss of appetite and wasting syndrome in people with acquired immunodeficiency syndrome (AIDS). Megestrol is not for use in preventing weight loss or wasting syndrome. Megestrol may also be used for purposes not listed in this medication guide. What should I discuss with my healthcare provider before taking megestrol? You should not use megestrol if you are allergic to it, or if you are . Tell your doctor if you have ever had: ?? diabetes; ?? an adrenal gland disorder; or ?? a stroke or blood clot. You may need to have a negative test before starting this treatment. Do not use megestrol if you are . Use effective control to prevent while you are using this medicine. Tell your doctor if you become . In animal studies, megestrol caused low weight and other problems when used during . However, it is not known whether these effects would occur in humans. Ask your doctor about your risk. Women with HIV or AIDS should not breastfeed a baby. Even if your baby is born without HIV, the virus may be passed to the baby in your breast milk. How should I take megestrol? Follow all directions on your prescription label and read all medication guides or instruction sheets. Use the medicine exactly as directed. Shake the oral suspension (liquid) before you measure a dose. Use the dosing syringe provided, or use a medicine dose-measuring device (not a kitchen spoon). Your dose needs may change if you switch to a different brand, strength, or form of this medicine. Avoid medication errors by using only the form and strength your doctor prescribes. Your dosage needs may also change if you have surgery, are ill, are under stress, or have an infection. Do not change your medication dose or schedule without your doctor's advice. Store at room temperature away from moisture and heat. When you stop using megestrol after long-term use, you may have withdrawal symptoms such as nausea, vomiting, dizziness, or weakness. Ask your doctor how to safely stop using this medicine. What happens if I miss a dose? Take the medicine as soon as you can, but skip the missed dose if it is almost time for your next dose. Do not take two doses at one time. What happens if I overdose? Seek emergency medical attention or call the Poison Help line at . What should I avoid while taking megestrol? Follow your doctor's instructions about any restrictions on food, beverages, or activity. What are the possible side effects of megestrol? Get emergency medical help if you have signs of an allergic reaction: hives; difficult breathing; swelling of your face, lips, tongue, or throat. Call your doctor at once if you have any of these side effects during or after your treatment with megestrol: ?? chest pain, sudden cough, wheezing, rapid breathing, coughing up blood; ?? swelling, warmth, or redness in an arm or leg; ?? increased thirst, increased urination, dry mouth, fruity breath odor; ?? weight gain (especially in your waist and upper back); ?? muscle weakness, tiredness, feeling light-headed; ?? skin discoloration, thinning skin, increased body hair; or ?? mood changes, menstrual changes, sexual changes. Common side effects may include: ?? nausea, gas, diarrhea; ?? increased blood pressure; ?? impotence, sexual problems; ?? rash; or ?? weakness. This is not a complete list of side effects and others may occur. Call your doctor for medical advice about side effects. You may report side effects to FDA at 8-413-TKI-0448. What other drugs will affect megestrol? Tell your doctor about all your other medicines, especially: ?? a blood thinner--warfarin, Coumadin, Jantoven. This list is not complete. Other drugs may affect megestrol, including prescription and kuuv-ugl-dykruuf medicines, vitamins, and herbal products. Not all possible drug interactions are listed here. Where can I get more information? Your pharmacist can provide more information about megestrol. Remember, keep this and all other medicines out of the reach of children, never share your medicines with others, and use this medication only for the indication prescribed. Every effort has been made to ensure that the information provided by [employer] is accurate, up-to-date, and complete, but no guarantee is made to that effect. Drug information contained herein may be time sensitive. [employer] information has been compiled for use by healthcare practitioners and consumers in the [place] and therefore [employer] does not warrant that uses outside of the [place] are appropriate, unless specifically indicated otherwise. [employer] drug information does not endorse drugs, diagnose patients or recommend therapy. [employer] drug information is an informational resource designed to assist licensed healthcare practitioners in caring for their patients and/or to serve consumers viewing this service as a supplement to, and not a substitute for, the expertise, skill, knowledge and judgment of healthcare practitioners. The absence of a warning for a given drug or drug combination in no way should be construed to indicate that the drug or drug combination is safe, effective or appropriate for any given patient. [employer] does not assume any responsibility for any aspect of healthcare administered with the aid of information [employer] provides. The information contained herein is not intended to cover all possible uses, directions, precautions, warnings, drug interactions, allergic reactions, or adverse effects. If you have questions about the drugs you are taking, check with your doctor, nurse or pharmacist. Copyright 5230-9287 [employer]. Version: 7.01. Revision Date: 11/08/2018. Emergency Awareness and Preventative Care STROKE is an EMERGENCY Every Minute Counts Act FAST and Check for these signs: FACE Does the face look uneven? ARM Does one arm drift down? SPEECH Does their speech sound strange? TIME Call at any sign of stroke Stroke Risk Factors Atrial Fibrillation (irregular heartbeat) Diabetes Family history of stroke Heart Disease Heavy alcohol use High Blood Pressure High Cholesterol Physical inactivity and obesity Smoking Cigarette Smoking The facts are clear, cigarette smoking will shorten your life. Smoking can cause many illnesses along the way. As a healthcare provider, we recommend that you stop smoking. Assistance with quitting is available by contacting 1-698-ZNKMOreeNOW. This is a free resource providing counseling, support, and referral. Or you may contact your personal physician. National Suicide Prevention Lifeline: The National Suicide Prevention Lifeline is a national network of local crisis centers that provides free and confidential emotional support to people in suicidal crisis or emotional distress 24 hours a day, 7 days a week. Don't Wait! Stop a Heart Attack Before it Starts What is a heart attack? A heart attack is damage or to a part of the heart from severely decreased or lack of blood flow to the heart. Over time, arteries can become narrow from the buildup of fat and cholesterol, which is called plaque. The plaque can rupture causing a blood clot to form. When the blood clot forms, the artery can become severely narrowed or completely blocked, causing a heart attack. Heart attack is the leading cause of in the [place]. 85% of muscle damage occurs within the first 2 hours. Delay in the recognition of heart attack symptoms increases the chances of . Know the early symptoms of a heart attack: Nausea Feeling of fullness in chest Jaw Pain Pain that travels down one or both arms Fatigue/being tired Anxiety Back Pain Chest pressure, squeezing, or discomfort Shortness of breath Sweating, or a cold sweat Feeling of impending doom There are unusual signs of a heart attack, too! Women, the elderly, and diabetics may present with atypical symptoms: Fainting/dizziness Weakness Confusion Risk Factors for a Heart Attack Some heart disease risk factors, such as age and family history, cannot be changed. Others, like smoking and lack of exercise, can be changed. Smoking High Cholesterol High Blood Pressure Family History Obesity Age Gender (Males are at higher risk) Lack of Exercise Diabetes Diet Stress Excessive Alcohol Intake If you or someone you know is experiencing the signs and symptoms of a heart attack, DON???T DELAY. Call immediately and seek help. If someone collapses, perform CPR! Do not attempt to drive if you are having symptoms of heart attack. Hands-Only CPR Why Hands-Only CPR? Hands-Only CPR has been shown to be as effective as conventional CPR for cardiac arrests that occur outside of a hospital. Survival depends on immediately receiving CPR from someone nearby. How do you perform Hands-Only CPR? There are two easy steps: Call if you see a teen or adult collapse Push hard and fast in the center of the chest at a beat of 100 beats per minute. Save a life! 4 WAYS TO GET AHEAD OF SEPSIS SEPSIS is a MEDICAL EMERGENCY. Time matters! Infections put you and your family at risk for a life-threatening condition called sepsis. Sepsis is the body's extreme response to an infection. It is life-threatening, and without timely treatment, sepsis can rapidly lead to tissue damage, organ failure, and . Sepsis happens when an infection you already have-in your skin, lungs, urinary tract or somewhere else-triggers a chain reaction throughout your body. 1 PREVENT INFECTIONS Take good care of chronic conditions. Talk to your doctor about getting the recommended vaccines. 2 PRACTICE GOOD HYGIENE Wash your hands frequently. Keep cuts or open sores clean and covered until they are healed. 3 KNOW THE SYMPTOMS Confusion or disorientation Shortness of breath High heart rate Fever, shivering, or feeling very cold Extreme pain or discomfort Clammy or sweaty skin 4 ACT FAST Get medical care IMMEDIATELY if you suspect sepsis or if you have an infection that is not getting better or is getting worse. To learn more about sepsis and how to prevent infections, visit www.cdc.gov/sepsis. Test Results Laboratory or Other Results This Visit (last charted value for your 10/10/2020 visit) Hematology 10/11/2020 5:45 AM WBC: 5.5 K/uL -- Normal range between ( 3.6 and 9.5 ) RBC: 3.31 Million/uL -- Normal range between ( 4.20 and 5.70 ) Hct: 32.0 % -- Normal range between ( 40.1 and 51.0 ) Hgb: 10.0 g/dL -- Normal range between ( 13.5 and 17.3 ) Platelet Count: 258 K/uL -- Normal range between ( 163 and 369 ) MCH: 30.2 pg -- Normal range between ( 25.6 and 32.2 ) MCHC: 31.3 Gram/dL -- Normal range between ( 32.2 and 36.5 ) MCV: 96.7 fL -- Normal range between ( 79.0 and 94.8 ) Slide Review: No Eos %: 4.2 % -- Normal range between ( 0.0 and 7.0 ) [place] #: 0.64 K/uL -- Normal range between ( 0.16 and 1.00 ) Eos #: 0.23 x10(3)/uL -- Normal range between ( 0.00 and 0.80 ) [place] %: 11.7 % -- Normal range between ( 3.0 and 9.0 ) Baso %: 0.9 % -- Normal range between ( 0.0 and 1.5 ) Baso #: 0.05 x10(3)/uL -- Normal range between ( 0.00 and 0.20 ) RDW: 14.6 % -- Normal range between ( 11.7 and 14.9 ) Neut %: 73.4 % -- Normal range between ( 34.0 and 71.0 ) Neut #: 4.01 K/uL -- Normal range between ( 1.56 and 6.13 ) Lymph %: 9.1 % -- Normal range between ( 19.3 and 53.1 ) Lymph #: 0.50 x10(3)/uL -- Normal range between ( 1.00 and 3.90 ) MPV: 8.6 fL -- Normal range between ( 9.4 and 12.4 ) IG#: 0.04 x10(3)/uL -- Normal range between ( 0.00 and 0.05 ) IG%: 0.70 % -- Normal range between ( 0.00 and 0.60 ) 10/10/2020 5:50 AM ALYC #: 0 K/uL Hypochromia: 1+ RBC Morphology: Abnormal Macrocytosis: 1+ ANC #: 3 K/uL [place] Percent Man: 10 % -- Normal range between ( 4 and 5 ) Ovalocytes: 1+ Baso Percent Man: 1 % -- Normal range between ( 0 and 1 ) Neutrophil Percent Man: 74 % -- Normal range between ( 50 and 65 ) Eos Percent Man: 4 % -- Normal range between ( 0 and 3 ) Anisocytosis: 1+ Platelet Ct Estimate: Adequate Poikilocytosis: 1+ Lymph Percent Man: 11 % -- Normal range between ( 24 and 44 ) Urinalysis 10/09/2020 2:45 PM Urine Nitrite: Negative Urine Leukocyte Esterase: Trace Urine Appearance: Clear Urine Glucose Dipstick: Negative Urine Blood Dipstick: Negative Urine Urobilinogen Dipstick: 1.0 EU/dL Urine Protein Dipstick: Negative Urine Color: Yellow Ur WBC: 0-2 /HPF Urine Ketones Dipstick: Negative Urine pH Dipstick: *8.0 -- Normal range between ( 6.0 and 8.0 ) Urine Bilirubin Dipstick: Negative Urine Specific [place]: 1.014 -- Normal range between ( 1.005 and 1.030 ) Urine Type.: U CleanCatch Urine Culture if Indicated: Not Indicated General Chemistry 10/12/2020 11:52 AM Creatinine Level: 0.90 mg/dL -- Normal range between ( 0.70 and 1.30 ) Sodium Level: 139 mmol/L -- Normal range between ( 136 and 146 ) Potassium Level: 3.4 mmol/L -- Normal range between ( 3.5 and 5.1 ) Chloride Level: 107 mmol/L -- Normal range between ( 102 and 112 ) Carbon Dioxide Level: 27 mmol/L -- Normal range between ( 21 and 32 ) Anion Gap: 8 -- Normal range between ( 9 and 20 ) Bilirubin Total: 0.6 mg/dL -- Normal range between ( 0.2 and 1.2 ) A/G Ratio: 0.7 -- Normal range between ( 1.1 and 2.5 ) ALT: 21 Units/Liter -- Normal range between ( 16 and 61 ) AST: 23 Units/Liter -- Normal range between ( 5 and 37 ) Globulin: 3.7 Gram/dL -- Normal range between ( 1.5 and 4.5 ) Alk Phos: 153 Units/Liter -- Normal range between ( 27 and 136 ) Bun/Creatinine: 11.1 -- Normal range between ( 8.0 and 20.0 ) Calcium Level: 9.1 mg/dL -- Normal range between ( 8.4 and 10.1 ) eGFR : >60 mL/min/1.73m2 eGFR NonAfrican: >60 mL/min/1.73m2 Glucose Level: 94 mg/dL -- Normal range between ( 74 and 106 ) Blood Urea Nitrogen: 10 mg/dL -- Normal range between ( 7 and 22 ) Protein Total: 6.4 Gram/dL -- Normal range between ( 6.4 and 8.2 ) Albumin Level: 2.7 Gram/dL -- Normal range between ( 3.4 and 5.0 ) 10/10/2020 6:05 AM Magnesium Level: 2.0 mg/dL -- Normal range between ( 1.5 and 2.4 ) Lipase Level: 210 Units/Liter -- Normal range between ( 73 and 393 ) 10/09/2020 3:34 PM Amylase Level: 56 Units/Liter -- Normal range between ( 25 and 115 ) Cardiac Specific Markers 10/09/2020 4:17 PM Troponin I Ultra: <0.015 ng/mL -- Normal range between ( 0.015 and 0.045 ) Computed Tomography 10/10/2020 4:[address] Head WO W: CT Head WO W Diagnostic Radiology 10/09/2020 5:00 PM CR Chest 1 Vw Portable: CR Chest 1 Vw Portable Patient Name:RANCHO DEL ANGEL Jesse I have received and understand this information and was given the opportunity to ask questions. Patient/Psychiatry Adult Physician Name: Patient/Psychiatry Adult Physician Signature: Relationship to Patient: Clinician/Hospital Psychiatry Adult Physician Signature: Date: documented in this encounter Plan of Treatment Upcoming Encounters Date Type Department Care Team (Late st Contact Info) Description 11/24/2024 2:00 PM EDT Office Visit [facility] [address] [address] [place] [address] Jalen Enciso MD [address] [place] [address] documented as of this encounter Visit Diagnoses Not on filedocumented in this encounter Care Teams Studio Data Analyst Relationship Specialty Start Date End Date MendyKaylene udnn MD [address] [place] [address] PCP - General General Internal Medicine 01/27/22 Farooq Marcus MD [address] [place] [address] PCP - General Family Medicine 02/27/22 documented as of this encounter
--- OUTSIDE RECORDS SUMMARY | 2024-11-21 21:23 | XMS_ITS | Encounter Summary ---
Author Organization [employer] ([place], [place], [place], [place]) Address [address] [place] [address] Care Team Providers Care Meteorological Technician Name Role Phone Kaylene Brooke MD Primary Care Provider [phone] Farooq Marcus MD Primary Care Provider [phone] Encounter Details Date Type Department Care Team (Late st Contact Info) Description 10/10/2020 Transcribed Document [facility] Family Medicine [address] [place] [address] ProviderRayray MD [address] [place] [address] Social History Tobacco Use Types Packs/Day Years Used Date Smoking Tobacco: Never Assessed Sex and Gender Information Value Date Recorded Sex Assigned at Not on file Legal Sex Male 5:14 PM CDT Gender Identity Not on file Sexual Orientation Not on file documented as of this encounter Miscellaneous Notes * Cerner Conversion Note - Rayray San MD - 10/10/2020 2:59 PM CDT Patient: DOYLE DEL ANGEL Age: 84 years Sex: Male : 1935 Associated Diagnoses: None Author: BRONWYN HASSAN MD-ONC Basic Information Mr. 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 He had been undergoing weekly Taxol/Herceptin and PET/CT in August showed an excellent response. However, last chemo was September 17 and he was hospitalized mid September with nausea/emesis, pancreatitis and NSTEMI. He was discharged on September 28 and was to follow-up tomorrow with Dr Enciso as outpatient. He presented yesterday with recurrent nausea/emesis and profound general weakness. This started to some extent a few days after his discharge on the but worsened and no solid food for 3 days prior to admission. No fevers and last BM 3 days ago. Labs on admission do not indicate recurrent pancreatitis. No neurologic signs/symptoms. Had CT of abd/pelvis September 22 with no recurrence of liver mets. Since admission yesterday has had no emesis. Still with some nausea. Review of Systems Constitutional: Weakness, Fatigue. Eye: Negative. Ear/Nose/Mouth/Throat: Decreased hearing. Respiratory: Negative. Cardiovascular: Negative. Gastrointestinal: Nausea, Vomiting. Genitourinary: Negative. Hematology/Lymphatics: Negative. Endocrine: Negative. Immunologic: Negative. Musculoskeletal: Negative. Neurologic: Negative. Psychiatric: Tired of being sick. . Health Status Allergies: Allergic Reactions (Selected) Severity Not Documented OxyCODONE- No reactions were documented., Allergies (1) Active Reaction oxyCODONE None Documented Current medications: (Selected) Inpatient Medications Ordered Carafate: 1 Gram, Oral, TIDAC Dulcolax Laxative: 5 mg, Oral, Daily, PRN: Constipation DuoNeb 0.5 mg-2.5 mg/3 mL inhalation solution: 3 mL, Nebulized Inhalation, Q6H, PRN: Shortness of Breath Effexor XR: 150 mg, Oral, Daily LORazepam: 1 mg, Oral, TID Lactated Ringers Injection intravenous solution 1,000 mL: 50 mL/Hr, IntraVENous, Stop: 10/10/20 19:00:00 EDT Phenergan: 6.25 mg, IntraVENous, Q6H, PRN: Nausea Tylenol: 650 mg, Oral, Q4H, PRN: Other (See Comment) aspirin: 81 mg, Oral, Daily clopidogrel: 75 mg, Oral, Daily hydrALAZINE: 10 mg, IV Push, Q6H, PRN: Hypertension melatonin: 3 mg, Oral, At Bedtime, PRN: Insomnia morphine: 2 mg, IV Push, Q2H, PRN: Pain (Severe 7-10) multivitamin: 1 Tab, Oral, Daily pantoprazole: 40 mg, Oral, Daily Prescriptions Prescribed Pepcid 20 mg oral tablet: 1 Tab, Oral, Daily, for 30 Day(s), 30 Tab, 1 Refill(s) clopidogrel 75 mg oral tablet: 1 Tab, Oral, Daily, for 30 Day(s), 30 Tab, 0 Refill(s) Documented Medications Documented Ativan 1 mg oral tablet: 1 Tab, Oral, TID, PRN: as needed for anxiety, 0 Refill(s) Bactrim 400 mg-80 mg oral tablet: 1 Tab, Oral, BID, 28 Tab, 0 Refill(s) Effexor XR 75 mg oral capsule, extended release: Cap, Oral, Daily, 0 Refill(s) LORazepam: 1 mg, Oral, TID, 0 Refill(s) Plavix 75 mg oral tablet: Tab, Oral, Daily, 0 Refill(s) Zofran 8 mg oral tablet: 1 Tab, Oral, TID, PRN: Nausea, 9 Tab, 0 Refill(s) aspirin: 81 mg, Oral, Daily, 0 Refill(s) multivitamin: 1 Tab, Oral, Daily, 0 Refill(s) pantoprazole 40 mg oral delayed release tablet: 1 Tab, Oral, Daily, 30 Tab, 0 Refill(s), Medications (15) Active Scheduled: (7) aspirin 81 mg chew tab 81 mg 1 Tab, Oral, Daily clopidogrel 75 mg tab 75 mg 1 Tab, Oral, Daily LORazepam 1 mg tab 1 mg 1 Tab, Oral, TID multiple vitamin (Thera) tab 1 Tab, Oral, Daily pantoprazole EC 40 mg tab 40 mg 1 Tab, Oral, Daily sucralfate 1 g/10 mL liq 1 Gram 10 mL, Oral, TIDAC venlafaxine XR 150 mg cap 150 mg 1 Cap, Oral, Daily Continuous: (1) lactated ringers 1,000 mL 1,000 mL, IntraVENous, 50 mL/Hr PRN: (7) acetaminophen 325 mg tab 650 mg 2 Tab, Oral, Q4H albuterol-ipratropium inh 3 mL 3 mL, Nebulized Inhalation, Q6H bisacodyl EC 5 mg tab 5 mg 1 Tab, Oral, Daily hydrALAZINE 20 mg/1 mL inj 10 mg 0.5 mL, IV Push, Q6H melatonin 3 mg tab 3 mg 1 Tab, Oral, At Bedtime morphine 2 mg/1 ml inj 2 mg 1 mL, IV Push, Q2H promethazine 25 mg/1 mL inj 6.25 mg 0.25 mL, IntraVENous, Q6H Problem list: Medical Anxiety disorder / SNOMED CT 218282794 / Confirmed At risk for sleep apnea / IMO [id number] / Confirmed Chest pain with high risk for cardiac etiology / SNOMED CT 04278201 / Confirmed Hyperlipidemia / SNOMED CT 20914520 / Confirmed Leg neuralgia / SNOMED CT 01997874 / Confirmed, Active Problems (7) Anxiety disorder At risk for sleep apnea Chest pain with high risk for cardiac etiology Esophagus cancer Hyperlipidemia Leg neuralgia Myocardial infarction Physical Examination VS/Measurements Vitals Signs (last 24 hrs) Last Charted Minimum Maximum Temp 98.3 (OCT 10 14:15) 97.6 (OCT 10 02:00) 98.5 (OCT 10 06:00) Mon HR 69 (OCT 10 14:15) 68 (OCT 09 17:43) 73 (OCT 10 02:00) Resp Rate 17 (OCT 10 06:00) 16 (OCT 09 18:40) 18 (OCT 09 23:00) SBP 135 (OCT 10 14:15) 112 (OCT 10 02:00) 135 (OCT 10 14:15) DBP 69 (OCT 10 14:15) 62 (OCT 09 18:40) 69 (OCT 09 23:00) MAP 108 (OCT 10 14:15) 80 (OCT 10 02:00) 108 (OCT 10 14:15) SpO2 96 (OCT 10 14:15) L 91 (OCT 10 06:00) 96 (OCT 10 14:15) , Intake & Output Totals Last 24 Hours (7a-7a) Intake (21 Events) Continuous Infusions (1401.6667 mL) Medications (1024 mL) Oral Intake (100 mL) Output (4 Events) Urine Voided (Volume) (1350 mL) Input Total: 2525.6667 mL Output Total: 1350 mL Balance: 1175.6667 mL , IV Fluids & Drains Last 24 Hours (7a-7a) Intake (1) Lactated Ringers Injection intravenous solution 1,000 mL 1401 mL Intake Total: 1401mL Output (0) No drain output events found in the last 24 hours. General: Alert and oriented, No acute distress, Frail appearing, sitting up in bed.. Eye: Pupils are equal, round and reactive to light, Extraocular movements are intact, Normal conjunctiva. HENT: Normocephalic, Oral mucosa is moist, No pharyngeal erythema. Neck: Supple, Non-tender, No lymphadenopathy. Respiratory: Lungs are clear to auscultation, Respirations are non-labored, Breath sounds are equal. Cardiovascular: Normal rate, No murmur, No edema. Gastrointestinal: Soft, Non-tender, Non-distended, Normal bowel sounds, No organomegaly. Lymphatics: No lymphadenopathy neck, axilla, groin. Neurologic: Alert, Oriented, No focal deficits. Psychiatric: Cooperative, Appropriate mood & affect. Review / Management Results review: Labs (Last four charted values) WBC 4.4 (OCT 10) 5.0 (OCT 09) HB L 9.5 (OCT 10) L 10.2 (OCT 09) HCT L 30.3 (OCT 10) L 32.5 (OCT 09) Plt 270 (OCT 10) 311 (OCT 09) Na 139 (OCT 10) 138 (OCT 09) K 3.9 (OCT 10) 3.9 (OCT 09) Cl 107 (OCT 10) 104 (OCT 09) CO2 30 (OCT 10) 31 (OCT 09) BUN 9 (OCT 10) 11 (OCT 09) Cr 1.00 (OCT 10) 1.00 (OCT 09) Glu R 81 (OCT 10) 88 (OCT 09) Ca 8.7 (OCT 10) 8.8 (OCT 09) AST 24 (OCT 10) 23 (OCT 09) ALT 24 (OCT 10) 27 (OCT 09) ALK P H 152 (OCT 10) H 170 (OCT 09) T Bili H 1.4 (OCT 10) 0.6 (OCT 09) PTN L 5.9 (OCT 10) 6.6 (OCT 09) ALB L 2.4 (OCT 10) L 2.7 (OCT 09) Lipase 210 (OCT 10) 242 (OCT 09) Troponin <0.015 (OCT 09) , OCT 10 06:05 139 107 9 / 81 3.9 30 1.00 \ OCT 10 06:05 \ L 9.5 / 4.4 270 / L 30.3 \, Labs (Last four charted values) WBC 4.4 (OCT 10) 5.0 (OCT 09) HB L 9.5 (OCT 10) L 10.2 (OCT 09) HCT L 30.3 (OCT 10) L 32.5 (OCT 09) Plt 270 (OCT 10) 311 (OCT 09) Na 139 (OCT 10) 138 (OCT 09) K 3.9 (OCT 10) 3.9 (OCT 09) Cl 107 (OCT 10) 104 (OCT 09) CO2 30 (OCT 10) 31 (OCT 09) BUN 9 (OCT 10) 11 (OCT 09) Cr 1.00 (OCT 10) 1.00 (OCT 09) Glu R 81 (OCT 10) 88 (OCT 09) Ca 8.7 (OCT 10) 8.8 (OCT 09) AST 24 (OCT 10) 23 (OCT 09) ALT 24 (OCT 10) 27 (OCT 09) ALK P H 152 (OCT 10) H 170 (OCT 09) T Bili H 1.4 (OCT 10) 0.6 (OCT 09) PTN L 5.9 (OCT 10) 6.6 (OCT 09) ALB L 2.4 (OCT 10) L 2.7 (OCT 09) Lipase 210 (OCT 10) 242 (OCT 09) Troponin <0.015 (OCT 09) , ACC: ORDER: DATE: SOURCE: SITE: Reports == . Radiology results Radiology Results (Last 48 hours) [id number] -- 10/09/2020 15:48 CR Chest 1 Vw Portable (10/09/2020 17:00) Result: PORTABLE CHESTHISTORY: Shortness of breath.COMPARISON: 12/23/2020.FINDINGS: A single portable radiograph of the chest was performed. Thereis a right internal jugular port with the tip in superior vena cava.There is a pacer overlying the left hemithorax. There are cardiacelectrodes overlying the chest wall. The heart is normal in size. Thereis mild calcified plaque of the aorta. There may be a trace lefteffusion. There are some increased markings in the lung bases that mayrepresent atelectasis or pneumonia. A viral process is not excluded.IMPRESSION: Decreased lung volume with basilar opacities similar to theprior study. This may represent atelectasis and/or pneumonia. Images reviewed, interpreted, and dictated by Sampson Laws MD Impression and Plan 1) Metastatic GE junction adenocarcinoma- excellent response to chemotherapy but none since September given persistent GI symptoms and now a second hospitalization. CT scan of abd/pelvis 2 weeks ago without new mets to liver. Symptoms not from chemo at this point. Also, no evidence of recurrent pancreatitis. Will check CT of brain (has pacemaker so no MRI) since intracranial mets can cause persistent nausea even without neurologic symptoms. If this is negative, consider EGD. Otherwise, continue IV fluids, antiemetics, etc. Dr Enciso to return tomorrow and cotton picking machine operator coverage. Mr Robertson voiced understanding and agreement with the above. Electronically signed by Nidia, [facility] Conversion Senior Naval Parachutist Cerner at 06/29/2022 2:27 PM CDT documented in this encounter Plan of Treatment Upcoming Encounters Date Type Department Care Team (Late st Contact Info) Description 11/24/2024 2:00 PM EDT Office Visit [facility] - [address] [place] [address] Jalen Enciso MD [address] [place] [address] documented as of this encounter Visit Diagnoses Not on filedocumented in this encounter Care Teams Meteorological Technician Relationship Specialty Start Date End Date Kaylene Brooke MD [address] [place] [address] PCP - General General Internal Medicine 01/27/22 Farooq Marcus MD [address] [place] [address] PCP - General Family Medicine 02/27/22 documented as of this encounter
--- OUTSIDE RECORDS SUMMARY | 2024-11-21 21:23 | XMS_ITS | Encounter Summary ---
Author Organization [employer] ([place], [place], [place], [place]) Address [address] [place] [address] Care Team Providers Care Nickel Operator Name Role Phone Kaylene Brooke MD Primary Care Provider [phone] Farooq Marcus MD Primary Care Provider [phone] Encounter Details Date Type Department Care Team (Late st Contact Info) Description 09/28/2020 Transcribed Document [facility] [place] [facility] [place] [address] ProviderRayray MD [address] [place] [address] Social History Tobacco Use Types Packs/Day Years Used Date Smoking Tobacco: Never Assessed Sex and Gender Information Value Date Recorded Sex Assigned at Not on file Legal Sex Male 5:14 PM CDT Gender Identity Not on file Sexual Orientation Not on file documented as of this encounter Miscellaneous Notes * Cerner Conversion Note - Rayray San MD - 09/28/2020 5:10 PM CDT [facility] [place] [id number] DOYLE DEL ANGEL :1935 Visit Time:09/22/2020 Your Visit Summary Your Care Team Admitting Physician - CRISTINA LUNDBERG, Attending Physician - CRISTINA LUNDBERG, Primary Care Physician - MAZIN SHERIDAN MD-[facility] [place] Referring Physician - Jeannine, NOT LISTED Your Diagnosis Abdominal pain, Abdominal pain NSTEMI (non-ST elevated myocardial infarction) Pancreatitis Sepsis, Sepsis, unspecified organism, Sepsis, unspecified organism What to do next Instructions From Your Care Team Discharge Activity: Discharge Activity: Activity as tolerated Diet: Discharge Diet: Resume usual diet as tolerated Follow-Up Appointments Follow Up with JALEN ENCISO MD-ONC When Within 2 to 4 weeks Comments oncology follow up Where: [address] [facility] [address] [place] [address]- Follow Up with MAZIN SHERIDAN MD-FAM When Within 5 to 7 days Comments PCP follow up Where: [address] [place] [address]- Medications What How Much When Instructions Next Dose clopidogrel (clopidogrel 75 mg oral tablet) 1 Tablet(s) Oral Every Day Duration: 30 Day(s) Pickup at [facility] famotidine (Pepcid 20 mg oral tablet) 1 Tablet(s) Oral Every Day Duration: 30 Day(s) Refills: 1 Pickup at [facility] aspirin 81 Milligram(s) Oral Every Day LORazepam 1 Milligram(s) Oral Three Times A Day multivitamin 1 Tablet(s) Oral Every Day Pharmacy Information [facility]: [address] [facility] [address] [place], [place] [id number] [phone] Take your medications faithfully. Do NOT skip [...] medications per your retail pharmacy guidance. Allergies No Known Allergies Immunizations This Visit No Immunizations Found Stroke/TIA Instructions Individualized Stroke Risk Factors Individualized Stroke Risk Factors *Q: Heart disease Stroke/TIA Signs/Symptoms to Report Immediately: Sudden onset difficulty speaking, Sudden onset difficulty understanding speech, Sudden onset change in vision, Sudden onset weakness particulary on one side of the body, Sudden onset numbness/tingling, Sudden severe headache, Sudden dizziness or trouble with gait, Call : EMS activation is crucial Mutually Agreed Upon Goals My LDL Level: My LDL Level: Education [employer] Acute Pancreatitis The pancreas is a gland that is located behind the stomach on the left side of the abdomen. It produces enzymes that help to digest food. The pancreas also releases the hormones glucagon and insulin, which help to regulate blood sugar. Acute pancreatitis happens when inflammation of the pancreas suddenly occurs and the pancreas becomes irritated and swollen. Most acute attacks last a few days and cause serious problems. Some people become dehydrated and develop low blood pressure. In severe cases, bleeding in the abdomen can lead to shock and can be life-threatening. The lungs, heart, and kidneys may fail. What are the causes? This condition may be caused by: ??? Alcohol abuse. ??? Drug abuse. ??? Gallstones or other conditions that can block the tube that drains the pancreas (pancreatic duct). ??? A tumor in the pancreas. Other causes include: ??? Certain medicines. ??? Exposure to certain chemicals. ??? Diabetes. ??? An infection in the pancreas. ??? Damage caused by an accident (trauma). ??? The poison (venom) from a scorpion bite. ??? Abdominal surgery. ??? Autoimmune pancreatitis. This is when the body's disease-fighting (immune) system attacks the pancreas. ??? Genes that are passed from parent to child (inherited). In some cases, the cause of this condition is not known. What are the signs or symptoms? Symptoms of this condition include: ??? Pain in the upper abdomen that may radiate to the back. Pain may be severe. ??? Tenderness and swelling of the abdomen. ??? Nausea and vomiting. ??? Fever. How is this diagnosed? This condition may be diagnosed based on: ??? A physical exam. ??? Blood tests. ??? Imaging tests, such as X-rays, CT or MRI scans, or an ultrasound of the abdomen. How is this treated? Treatment for this condition usually requires a stay in the hospital. Treatment for this condition may include: ??? Pain medicine. ??? Fluid replacement through an IV. ??? Placing a tube in the stomach to remove stomach contents and to control vomiting (NG tube, or nasogastric tube). ??? Not eating for 3???4 days. This gives the pancreas a rest, because enzymes are not being produced that can cause further damage. ??? Antibiotic medicines, if your condition is caused by an infection. ??? Treating any underlying conditions that may be the cause. ??? Steroid medicines, if your condition is caused by your immune system attacking your body's own tissues (autoimmune disease). ??? Surgery on the pancreas or gallbladder. Follow these instructions at home: Eating and drinking ??? Follow instructions from your health care provider about diet. This may involve avoiding alcohol and decreasing the amount of fat in your diet. ??? Eat smaller, more frequent meals. This reduces the amount of digestive fluids that the pancreas produces. ??? Drink enough fluid to keep your urine pale yellow. ??? Do not drink alcohol if it caused your condition. General instructions ??? Take picb-ifj-ihxsiwo and prescription medicines only as told by your health care provider. ??? Do not drive or use heavy machinery while taking prescription pain medicine. ??? Ask your health care provider if the medicine prescribed to you can cause constipation. You may need to take steps to prevent or treat constipation, such as: ? Take an jxzn-jlt-fgxriuq or prescription medicine for constipation. ? Eat foods that are high in fiber such as whole grains and beans. ? Limit foods that are high in fat and processed sugars, such as fried or sweet foods. ??? Do not use any products that contain nicotine or tobacco, such as cigarettes, e-cigarettes, and chewing tobacco. If you need help quitting, ask your health care provider. ??? Get plenty of rest. ??? If directed, check your blood sugar at home as told by your health care provider. ??? Keep all follow-up visits as told by your health care provider. This is important. Contact a health care provider if you: ??? Do not recover as quickly as expected. ??? Develop new or worsening symptoms. ??? Have persistent pain, weakness, or nausea. ??? Recover and then have another episode of pain. ??? Have a fever. Get help right away if: ??? You cannot eat or keep fluids down. ??? Your pain becomes severe. ??? Your skin or the white part of your eyes turns yellow (jaundice). ??? You have sudden swelling in your abdomen. ??? You vomit. ??? You feel dizzy or you faint. ??? Your blood sugar is high (over 300 mg/dL). Summary ??? Acute pancreatitis happens when inflammation of the pancreas suddenly occurs and the pancreas becomes irritated and swollen. ??? This condition is typically caused by alcohol abuse, drug abuse, or gallstones. ??? Treatment for this condition usually requires a stay in the hospital. This information is not intended to replace advice given to you by your health care provider. Make sure you discuss any questions you have with your health care provider. Document Revised: 12/16/2018 Document Reviewed: 09/02/2018 [employer] Patient Education ?? 2020 [employer] Emergency Awareness and Preventative Care STROKE is [...] Assistance with quitting is available by contacting 0-146-NAAN-NOW. This is a free resource providing counseling, [...] This Visit (last charted value for your 09/22/2020 visit) Hematology 09/28/2020 7:30 AM WBC: 5.8 K/uL -- Normal range between ( 3.6 and 9.5 ) RBC: 2.88 Million/uL -- Normal range between ( 4.20 and 5.70 ) Hct: 27.2 % -- Normal range between ( 40.1 and 51.0 ) Hgb: 8.8 g/dL -- Normal range between ( 13.5 and 17.3 ) Platelet Count: 188 K/uL -- Normal range between ( 163 and 369 ) MCH: 30.6 pg -- Normal range between ( 25.6 and 32.2 ) MCHC: 32.4 Gram/dL -- Normal range between ( 32.2 and 36.5 ) MCV: 94.4 fL -- Normal range between ( 79.0 and 94.8 ) Slide Review: Add Diff Man ALYC #: 1 K/uL Band Percent Man: 2 % -- Normal range between ( 5 and 11 ) RBC Morphology: Abnormal RDW: 15.4 % -- Normal range between ( 11.7 and 14.9 ) ANC #: 4 K/uL Inyo Percent Man: 14 % -- Normal range between ( 4 and 5 ) Ovalocytes: 1+ Neutrophil Percent Man: 66 % -- Normal range between ( 50 and 65 ) Eos Percent Man: 6 % -- Normal range between ( 0 and 3 ) Anisocytosis: 1+ Platelet Ct Estimate: Adequate MPV: 9.5 fL -- Normal range between ( 9.4 and 12.4 ) Poikilocytosis: 1+ Lymph Percent Man: 12 % -- Normal range between ( 24 and 44 ) 09/27/2020 11:14 AM Baso Percent Man: 0 % -- Normal range between ( 0 and 1 ) 09/26/2020 6:05 AM Weed Percent Man: 1 % -- Normal range between ( 0 and 1 ) 09/24/2020 5:26 AM Eos %: 1.4 % -- Normal range between ( 0.0 and 7.0 ) Inyo #: 0.32 K/uL -- Normal range between ( 0.16 and 1.00 ) Eos #: 0.09 x10(3)/uL -- Normal range between ( 0.00 and 0.80 ) Inyo %: 4.9 % -- Normal range between ( 3.0 and 9.0 ) Baso %: 0.3 % -- Normal range between ( 0.0 and 1.5 ) Baso #: 0.02 x10(3)/uL -- Normal range between ( 0.00 and 0.20 ) Neut %: 88.1 % -- Normal range between ( 34.0 and 71.0 ) Neut #: 5.75 K/uL -- Normal range between ( 1.56 and 6.13 ) Lymph %: 3.8 % -- Normal range between ( 19.3 and 53.1 ) Lymph #: 0.25 x10(3)/uL -- Normal range between ( 1.00 and 3.90 ) IG#: 0.10 x10(3)/uL -- Normal range between ( 0.00 and 0.05 ) IG%: 1.50 % -- Normal range between ( 0.00 and 0.60 ) 09/22/2020 10:13 AM Hypochromia: 1+ Urinalysis 09/22/2020 11:25 AM Urine Nitrite: Negative Urine Leukocyte Esterase: Negative Urine Appearance: Clear Urine Glucose Dipstick: Negative Urine Blood Dipstick: Negative Urine Urobilinogen Dipstick: 4.0 EU/dL Urine Protein Dipstick: Negative Urine Color: Adriana Urine Ketones Dipstick: Negative Urine pH Dipstick: 7.0 -- Normal range between ( 6.0 and 8.0 ) Urine Bilirubin Dipstick: Small Urine Specific [employer]: 1.016 -- Normal range between ( 1.005 and 1.030 ) Urine Type.: U CleanCatch Urine Culture if Indicated: Culture Ordered Microbiology 09/22/2020 11:41 AM Influenza A: Negative Influenza B: Negative SARS-CoV-2 (COVID19 PCR): Negative 09/22/2020 11:25 AM Urine Culture: POS 09/22/2020 10:27 AM Blood Culture: See Result General Chemistry 09/28/2020 7:30 AM Creatinine Level: 0.80 mg/dL -- Normal range between ( 0.70 and 1.30 ) Sodium Level: 141 mmol/L -- Normal range between ( 136 and 146 ) Potassium Level: 3.6 mmol/L -- Normal range between ( 3.5 and 5.1 ) Chloride Level: 111 mmol/L -- Normal range between ( 102 and 112 ) Carbon Dioxide Level: 25 mmol/L -- Normal range between ( 21 and 32 ) Anion Gap: 9 -- Normal range between ( 9 and 20 ) Bun/Creatinine: 6.2 -- Normal range between ( 8.0 and 20.0 ) Calcium Level: 8.1 mg/dL -- Normal range between ( 8.4 and 10.1 ) eGFR : >60 mL/min/1.73m2 eGFR NonAfrican: >60 mL/min/1.73m2 Glucose Level: 83 mg/dL -- Normal range between ( 74 and 106 ) Blood Urea Nitrogen: 5 mg/dL -- Normal range between ( 7 and 22 ) 09/27/2020 11:14 AM Bilirubin Total: 0.6 mg/dL -- Normal range between ( 0.2 and 1.2 ) A/G Ratio: 0.6 -- Normal range between ( 1.1 and 2.5 ) ALT: 50 Units/Liter -- Normal range between ( 16 and 61 ) AST: 33 Units/Liter -- Normal range between ( 5 and 37 ) Globulin: 3.3 Gram/dL -- Normal range between ( 1.5 and 4.5 ) Alk Phos: 222 Units/Liter -- Normal range between ( 27 and 136 ) Protein Total: 5.3 Gram/dL -- Normal range between ( 6.4 and 8.2 ) Albumin Level: 2.0 Gram/dL -- Normal range between ( 3.4 and 5.0 ) 09/25/2020 5:50 AM Lipase Level: 632 Units/Liter -- Normal range between ( 73 and 393 ) 09/22/2020 4:02 PM Lactic Acid Level: 2.8 mmol/L -- Normal range between ( 0.4 and 2.0 ) Cardiac Specific Markers 09/23/2020 5:08 AM Troponin I Ultra: 0.272 ng/mL -- Normal range between ( 0.015 and 0.045 ) 09/22/2020 10:13 AM ProBNP: 2259 pg/mL -- Normal range between ( 0 and 450 ) Coagulation 09/22/2020 4:02 PM INR: 1.1 -- Normal range between ( 0.9 and 1.2 ) PT: 11.5 Second(s) -- Normal range between ( 9.2 and 12.0 ) Lipid Studies 09/23/2020 5:08 AM Cholesterol Tot: 60 mg/dL -- Normal range between ( 0 and 199 ) Cholesterol HDL: 21.0 mg/dL Cholesterol LDL Calculation: 28.8 mg/dL -- Normal range between ( 0.0 and 99.0 ) Cholesterol VLDL Calculation: 10.2 mg/dL -- Normal range between ( 5.0 and 40.0 ) Cholesterol/HDL Ratio: 2.9 -- Normal range between ( 0.0 and 3.2 ) Triglyceride: 51 mg/dL -- Normal range between ( 0 and 249 ) LDL/HDL Ratio: 1.4 -- Normal range between ( 0.0 and 3.6 ) Endocrinology 09/25/2020 5:50 AM Procalcitonin: 8.54 ng/mL -- Normal range between ( 0.00 and 2.00 ) Infectious Disease 09/23/2020 5:08 AM Hep B Core: Non Reactive Hep C AB: Non Reactive Hep B Surf AG: Non Reactive Hep A IgM AB: Non Reactive Computed Tomography 09/22/2020 1:[address] Abdomen Pelvis W: CT Abdomen Pelvis W Diagnostic Radiology 09/22/2020 10:37 AM CR Chest 1 Vw Portable: CR Chest 1 Vw Portable Ultrasound 09/22/2020 5:37 PM US Abdominal RT Upper Quad: US Abdominal RT Upper Quad Echo 09/23/2020 9:42 AM EC Echo Complete: EC Echo Complete Patient Name:DOYLE DEL ANGEL I have received and understand this information and was given the opportunity to ask questions. Patient/Alternative Energy Technician Name: Patient/Alternative Energy Technician Signature: Relationship to Patient: Clinician/Hospital Alternative Energy Technician Signature: Date: documented in this encounter Plan of Treatment Upcoming Encounters Date Type Department Care Team (Late st Contact Info) Description 11/24/2024 2:00 PM EDT Office Visit [facility] - [address] [facility] [address] [address] Jalen Enciso MD [address] [place] [address] documented as of this encounter Visit Diagnoses Not on filedocumented in this encounter Care Teams Nickel Operator Relationship Specialty Start Date End Date Kaylene Brooke MD [address] [place] [address] PCP - General General Internal Medicine 01/27/22 Farooq Marcus MD [address] [place] [address] PCP - General Family Medicine 02/27/22 documented as of this encounter
--- OUTSIDE RECORDS SUMMARY | 2024-11-21 21:23 | XMS_ITS | Encounter Summary ---
Author Organization [employer] ([place], [place], [place], [place]) Address [address] [place] [address] Care Team Providers Care Basting Marker Name Role Phone Kaylene Brooke MD Primary Care Provider [phone] Farooq Marcus MD Primary Care Provider [phone] Encounter Details Date Type Department Care Team (Late Contact Info) Description 09/28/2020 Transcribed Document [facility] [place] [facility] [place] [address] ProviderRayray MD [address] [place], [place] [address] Social History Tobacco Use Types Packs/Day Years Used Date Smoking Tobacco: Never Assessed Sex and Gender Information Value Date Recorded Sex Assigned at Not on file Legal Sex Male 5:14 PM CDT Gender Identity Not on file Sexual Orientation Not on file documented as of this encounter Miscellaneous Notes * Cerner Conversion Note - Historical ProviderMD - 09/28/2020 5:00 AM CDT Chart Check - Review Order Profile Entered On: 09/28/2020 3:18 EDT Performed On: 09/28/2020 5:00 EDT by Niki Guzman, RN Chart Check Powerplans Initiated/Discontinued as Appropriate : Yes All Active Orders Reviewed : Yes Niki Guzman RN - 09/28/2020 3:18 EDT Electronically signed by Nidia [facility] Conversion Exploitation Analyst Cerner at 06/29/2022 2:32 PM CDT documented in this encounter Plan of Treatment Upcoming Encounters Date Type Department Care Team (Late st Contact Info) Description 11/24/2024 2:00 PM EDT Office Visit [facility] - [address] [place] [address] Jalen Enciso MD [address] [place] [address] documented as of this encounter Visit Diagnoses Not on filedocumented in this encounter Care Teams Basting Marker Relationship Specialty Start Date End Date Kaylene Brooke MD [address] [place] [address] PCP - General General Internal Medicine 01/27/22 Farooq Marcus MD [address] [place] [address] PCP - General Family Medicine 02/27/22 documented as of this encounter
--- OUTSIDE RECORDS SUMMARY | 2024-11-21 21:23 | XMS_ITS | Encounter Summary ---
Author Organization [employer] ([place], [place], [place], [place]) Address [address] [place] [address] Care Team Providers Care Justice [employer] The Peace Name Role Phone Kaylene Brooke MD Primary Care Provider [phone] Farooq Marcus MD Primary Care Provider [phone] Encounter Details Date Type Department Care Team (Late st Contact Info) Description 10/10/2020 Transcribed Document [facility] [place] Family Medicine [facility] [place] [address] ProviderRayray MD [address] [place] [address] Social History Tobacco Use Types Packs/Day Years Used Date Smoking Tobacco: Never Assessed Sex and Gender Information Value Date Recorded Sex Assigned at Not on file Legal Sex Male 5:14 PM CDT Gender Identity Not on file Sexual Orientation Not on file documented as of this encounter Miscellaneous Notes * Cerner Conversion Note - Rayray San MD - 10/10/2020 10:14 AM CDT Consult Phone Call Documentation Entered On: 10/10/2020 10:16 EDT Performed On: 10/10/2020 10:14 EDT by Hillary Chamberlain RN Phone Call for Consults Consult Phone Call/Page Attempt : First call Consult Reason : esophageal cancer, has appt on 10/11, will be inpatient Physician Requesting Consult : SASHA PEREZ PA-C Physician Requested for Consult : JALEN ENCISO MD-ONC Provider Service Notified Name : Other: Oncology Physician Covering for Consult : BRONWYN HASSAN MD-ONC Date and Time Call Returned : 10/10/2020 10:12 EDT Physician Returning Call : BRONWYN HASSAN MD-ONC Hillary Paredes, RN - 10/10/2020 10:14 EDT documented in this encounter Plan of Treatment Upcoming Encounters Date Type Department Care Team (Late st Contact Info) Description 11/24/2024 2:00 PM EDT Office Visit [facility] - [address] [place] [address] Jalen Enciso MD [address] [place] [address] documented as of this encounter Visit Diagnoses Not on filedocumented in this encounter Care Teams Justice Of The Peace Relationship Specialty Start Date End Date Kaylene Brooke MD [address] [place] [address] PCP - General General Internal Medicine 01/27/22 Farooq Marcus MD [address] [place] [address] PCP - General Family Medicine 02/27/22 documented as of this encounter
--- OUTSIDE RECORDS SUMMARY | 2024-11-21 21:23 | XMS_ITS | Encounter Summary ---
Author Organization [employer] ([place], [place], [place], [place]) Address [address] [place] [address] Care Team Providers Care Vice President Network Development Name Role Phone Kaylene Brooke MD Primary Care Provider [phone] Farooq Marcus MD Primary Care Provider [phone] Encounter Details Date Type Department Care Team (Late st Contact Info) Description 10/09/2020 Transcribed Document [facility] [place] Family Medicine [place] [address] ProviderRayray MD [address] [place] [address] Social History Tobacco Use Types Packs/Day Years Used Date Smoking Tobacco: Never Assessed Sex and Gender Information Value Date Recorded Sex Assigned at Not on file Legal Sex Male 5:14 PM CDT Gender Identity Not on file Sexual Orientation Not on file documented as of this encounter Miscellaneous Notes * Cerner Conversion Note - Rayray ProviderMD - 10/09/2020 4:16 PM CDT Admission History, Adult Entered On: 10/09/2020 18:26 EDT Performed On: 10/09/2020 18:47 EDT by Zaida Cortez RN Advance Directive Patient has Advance Directive *Q : Yes, Advance Directive on file Advance Directive Type : Living will Copy Advance Directive Verified/on Chart : No Zaida Cortez RN - 10/09/2020 18:47 EDT Anesthesia/Transfusion History Family History of Anesthesia Reaction : No prior transfusion(s) Transfusion History : Prior anesthesia without reaction Family History of Anesthesia Reaction : None Zaida Cortez RN - 10/09/2020 18:47 EDT Functional Assessment Living Situation : Home HERRERA Hx Falls Immediate/Within 3 Months : No Current Home Treatments : None Zaida Cortez RN - 10/09/2020 18:47 EDT General Info Mode of Arrival on Unit : Ambulatory Legal Guardian : Significant other Legal Guardian : No Support Person/Patient Transmission Specialist : Yes Support Person/Pt Rep Name : Brandee Del Angel - Contact Password : Cat Support Person/Pt Rep Contact Information : [phone] Want Family/Rep/Phys Notified of Admit : No Emergency Contact #1 : - Emergency Contact #1 Phone Number : - Emergency Contact #1 Relationship : - Emergency Contact #2 : - Emergency Contact #2 Phone Number : - Emergency Contact #2 Relationship : - Chief Complaint : nausea, vomiting for several weeks. radiation and chemo completed 3 weeks ago for esophageal cancer. Information Obtained From : Patient, Spouse Primary Language : Ethiopian Communication Barrier : None Preventive Maintenance Engineer Needed : No Zaida Cortez RN - 10/09/2020 18:47 EDT Fall Risk Scales ABCs Fall Injury Risk Identification : Bones ABC Fall Injury Risk : Moderate to high injury risk Injury Moderate to High Risk Interventions : Supervise toileting as indicated, Toileting schedule, Transport methods appropriate to patient HERRERA Hx Falls Immediate/Within 3 Months : Yes Herrera Secondary Diagnosis : Yes HERRERA Use of Ambulatory Aid : Bed rest/Nurse assist HERRERA IV Therapy or IV Access : Yes Herrera Gait/Transferring : Weak Herrera Mental Status : Oriented to own ability Herrera Fall Risk Score : 70 HERRERA Fall Scale Risk Level : 46 or > High Risk Husser Fall Interventions : Adequate lighting, Assistive devices within reach, Call device within reach, Frequent orientation to call device, Frequent orientation to surroundings, Hourly comfort/safety rounds, Non-slip footwear, Personal items within reach, Reinforced to call for assistance before getting out of bed, Room free of clutter/spills, Upper side-rails up, Wheels locked, Wires/Cords secured Fall Risk Scale Calc Temp : 0 Zaida Cortez RN - 10/09/2020 18:47 EDT Health Histories Smoking Status : Never (less than 100 in lifetime; none in last 30 days) Smokeless Tobacco Status : Never Zaida Cortez RN - 10/09/2020 18:47 EDT Social History (As Of: 10/09/2020 18:26:58 EDT) Tobacco: Smoking Status Never smoker. (Last Updated: 04/22/2014 15:35:05 EST by DARRELL REED, Rn) Alcohol: Alcohol Use History No. Use in Last 12 Months: No. (Last Updated: 04/22/2014 15:34:53 EST by DARRELL REED Rn) Substance Abuse: Drug Use Hx: No. (Last Updated: 09/08/2020 08:39:23 EDT by JUVE GILBERT Rn-Clinical Coordinator I) Height and Weight, Clinical Dosing Height Source : Stated Height Entry Format : [place] Height, Feet : 6 ft(Converted to: 183 cm, 72 Inch) Height, Inches : 0 Inch(Converted to: 0 ft 0 Inch, 0.00 cm) Clinical Height : 182.88 cm Weight Source : Bed scale Weight Entry Format : [place] Clinical Dosing Weight : 68.18 kg Weight, Pounds : 150 lb Body Surface Area (BSA) : 1.89 m2 Body Mass Index : 20.4 kg/m2 [place] Body Weight : 77 kg Zaida Cortez RN - 10/09/2020 18:47 EDT Infectious Disease History Has the patient ever been tested for COVID-19? : Yes, Patient stated results Negative Date of COVID-19 test known? : Yes Date of COVID-19 Test : 10/09/2020 EDT Does patient have symptoms of COVID-19? : Yes COVID19 Screening : No Experiencing Infectious Disease Symptoms : Vomiting, Weakness/Fatigue Physical contact outside [place] in the last 30 days : No Infectious Disease History : Chicken pox/Shingles, Measles Tuberculosis Symptoms : None Zaida Cortez RN - 10/09/2020 18:47 EDT Influenza Vaccine Asmt, Adult Previous Vaccines from Immunization Schedule : No qualifying data available. Influenza Immunization, Current Season : Outside of influenza season Zaida Cortez RN - 10/09/2020 18:47 EDT Pneumococcal Vaccine Previous Vaccines from Immunization Schedule : No qualifying data available. Pneumonia Immunization Received : Yes Zaida Cortez RN - 10/09/2020 18:47 EDT Order Details Order Detail : N/A Patient Needs Meds Crushed/Liquid : Yes Meds Administered Via Tube : No Zaida Cortez RN - 10/09/2020 18:47 EDT Nutrition History Adaptive Feeding Equipment : Regular Eating Poorly Due to Decreased Appetite : Yes Unplanned Weight Loss in Past 3-6 Months : Yes Unplanned Weight Loss Amount : 24-33 lbs/10.6-15 kg Malnutrition Screening Tool Total(mal) : 4 Malnutrition Screening Tool Risk Level : Patient at risk Zaida Cortez RN - 10/09/2020 18:47 EDT [place] Suicide Severity Rating Scale (C-SSRS) CSSRS Past Month Wish to be : No CSSRS Past Month Suicidal Thoughts : No CSSRS Lifetime Suicide Behavior : No Suicide Severity Rating Score : 0 Suicide Severity Rating : No Additional Care Required at this time Zaida Cortez RN - 10/09/2020 18:47 EDT Psychosocial History Currently in Unsafe Situation : No Zaida Cortez RN - 10/09/2020 18:47 EDT Sleep Apnea Risk Assmt Hx of Obstructive Sleep Apnea Diagnosis : No Snore Loudly : No Tired, Fatigued, or Sleepy During Day : No Observed Stopping Breathing During Sleep : No Have/Are Being Treated for Hypertension : Yes BMI Greater Than 35 kg/m2 : No Age over 50 Years Old : Yes Neck Circumference Greater Than 40 cm : No Gender Male : Yes STOP-BANG Sleep Apnea Risk Level Score : 3 Zaida Cortez RN - 10/09/2020 18:47 EDT Valuables and Belongings Valuables and Belongings : No clothing, No comfort items, No jewelry, No personal devices, No personal items, No assistive devices, No respiratory devices, No medications Zaida Cortez RN - 10/09/2020 18:47 EDT documented in this encounter Plan of Treatment Upcoming Encounters Date Type Department Care Team (Late st Contact Info) Description 11/24/2024 2:00 PM EDT Office Visit [facility] - [address] [place] [address] Jalen Enciso MD [address] [place] [address] documented as of this encounter Visit Diagnoses Not on filedocumented in this encounter Care Teams Vice President Network Development Relationship Specialty Start Date End Date Kaylene Brooke MD [address] [place] [address] PCP - General General Internal Medicine 01/27/22 Farooq Marcus MD [address] [place] [address] PCP - General Family Medicine 02/27/22 documented as of this encounter
--- OUTSIDE RECORDS SUMMARY | 2024-11-21 21:23 | XMS_ITS | Encounter Summary ---
Author Organization [employer] ([place], [place], [place], [place]) Address [address] [place] [address] Care Team Providers Care Thread Spooler Name Role Phone Kaylene Brooke MD Primary Care Provider [phone] Farooq Marcus MD Primary Care Provider [phone] Encounter Details Date Type Department Care Team (Late st Contact Info) Description 10/09/2020 Transcribed Document [facility] [place] Family Medicine [address] [place] [address] ProviderRayray MD [address] [place] [address] Social History Tobacco Use Types Packs/Day Years Used Date Smoking Tobacco: Never Assessed Sex and Gender Information Value Date Recorded Sex Assigned at Not on file Legal Sex Male 5:14 PM CDT Gender Identity Not on file Sexual Orientation Not on file documented as of this encounter Miscellaneous Notes * Cerner Conversion Note - Rayray ProviderMD - 10/09/2020 12:19 PM CDT [place] Violence Assessment Entered On: 10/09/2020 14:00 EDT Performed On: 10/09/2020 13:56 EDT by PRISCILLA JUAN RN Broset Violence Assessment Broset Violence Checklist of Symptoms : None Broset Violence Symptoms Subtotal : 0 Bro[place] Violence Symptoms Indicator : Low risk (0) [place] Interventions : [place] precautions for safety used PRISCILLA JUAN RN - 10/09/2020 13:56 EDT documented in this encounter Plan of Treatment Upcoming Encounters Date Type Department Care Team (Late st Contact Info) Description 11/24/2024 2:00 PM EDT Office Visit [facility] - [address] [place] [address] Jalen Enciso MD [address] [place] [address] documented as of this encounter Visit Diagnoses Not on filedocumented in this encounter Care Teams Thread Spooler Relationship Specialty Start Date End Date MendyKaylene dunn MD [address] [place] [address] PCP - General General Internal Medicine 01/27/22 Farooq Marcus MD [address] [place] [address] PCP - General Family Medicine 02/27/22 documented as of this encounter
--- OUTSIDE RECORDS SUMMARY | 2024-11-21 21:23 | XMS_ITS | Encounter Summary ---
Author Organization [employer] ([place], [place], [place], [place]) Address [address] [place] [address] Care Team Providers Care Hotel Maintenance Technician Name Role Phone Kaylene Brooke MD Primary Care Provider [phone] Farooq Marcus MD Primary Care Provider [phone] Encounter Details Date Type Department Care Team (Late st Contact Info) Description 09/28/2020 Transcribed Document [facility] [place] Family Medicine [address] [place] [address] ProviderRayray MD [address] [place], [place] [address] Social History Tobacco Use Types Packs/Day Years Used Date Smoking Tobacco: Never Assessed Sex and Gender Information Value Date Recorded Sex Assigned at Not on file Legal Sex Male 5:14 PM CDT Gender Identity Not on file Sexual Orientation Not on file documented as of this encounter Miscellaneous Notes * Cerner Conversion Note - Historical ProviderMD - 09/28/2020 3:00 AM CDT Nutrition Assessment Entered On: 09/28/2020 8:26 EDT Performed On: 09/28/2020 8:26 EDT by Fabiola Holly Nutrition Assessment Nutrition Assessment Reason : Follow Up Fabiola Holly - 09/28/2020 8:26 EDT Current Nutrition Regimen Comment : 09/28: High f/up. Tolerating PO diet. Visited pt, at bedside, pt reports no pain with eating. Stated he got nauseous when pills were given this morning. Pt has not been drinking Ensure clear, reports pt doesn't tolerate Ensure/Boosts well, agreeable to magic cups. No new wt to assess, intakes improving. 09/24: Rec'd consult for MST=3 (decreased appetite, 14-23lb wt loss). Pt is 84 yo M with hx of esophageal cancer finished chemo earlier this month. Pt presented to [facility] 09/22 for abd pain with N/V. GI consulted, LFTs/pancreatitis likely due to medication/dehydration, LFTs improving. Visited pt, not in room at time of visit. Pt stated he had a good appetite prior to hospitalization, ate 2 meals/day + snacks. No issues chewing/swallowing reported. Pt stated UBW 185#, last known in May 2020 before chemo started, stated CBW 165# (but admit cc=133#). RD to reorder wt to confirm. NFPE showed mild wasting in orbitals and temples. Per MD note, plan to start advancing diet as tolerated. RN stated pt hasn't been drinking clear liquids at all. Pt stated he didn't think he was able to have anything on the trays, explained to pt that he can have what's on the tray and encouraged pt to monitor for abd pain; RN also explained this to pt. RD unable to dx PCM d/t wt discrepancies. Dx: Severe sepsis r/t PNA, pancreatitis, NSTEMI, ? afib PMH: Esophageal cancer hx of chemo, CAD, HLD, [place], cholecystectomy Meds: aspirin, MVI, immodium, senna, PPI, abx, probiotics Labs:ALP 222, Lipase 632 Skin: no breakdown noted GI: +BS, LBM 09/26-c/o diarrhea Diet: Low fat, Ensure Clear TID Intakes: 68% x 4 meals Ht: 72 Wt: 175#/79.5kg-bedscale wt, noted discrepancy, no new wt (09/28)-RD to order new wt Hx: 159# (09/08)-Standing scale UBW: 185# x 4 months ago BMI: 23.7 IBW/%IBW: 80.9kg/ 98.2% IBW Katey Warren Dietitian - 09/28/2020 14:00 EDT Nutrition Diagnoses Oral or Nutrition Support Intake : Inadequate oral intake Oral or Nutr Support Intake Related To : clear liquid; pancreatitis Fabiola Holly - 09/28/2020 11:13 EDT Oral or Nutr Support Intake Evidenced by : improving, 68% x 4 meals Oral or Nutrition Support Intake Status : Resolved Katey Warren Dietitian - 09/28/2020 14:00 EDT Weight : Unintended weight loss Weight Related to : chemotherapy Weight As Evidenced by : reported 20# wt loss (10.8% x 4 months; significant) - does not match admit wt Weight Status : Active Fabiola Holly - 09/28/2020 11:13 EDT Nutrition Interventions Meals and Snacks : Fat-modified diet Nutrition Supplement Therapy : Commercial beverage Fabiola Holly - 09/28/2020 11:13 EDT Monitoring/Evaluation Energy Intake : Total energy intake Food Intake : Amount of food Protein Intake : Total protein Weight Status : Weight Maintanence Gastrointestinal Function : Bowel Function Fabiola Holly - 09/28/2020 11:13 EDT Nutrition Recommendations Nutrition Care Level : High Dietitian Recommendations : 1. Continue low fat diet. d/c Ensure clear, will send Magic cups BID Goal: Intakes >50%, diet advancement 2. Monitor wt 2x weekly. RD to reorder wt- will continue to assess for PCM. Goal: no significant wt changes 3. Continue MVI Goal: 100% DRI 4. Monitor bowel fxn, adjust meds PRN Goal: regular BMs High risk Katey Warren Dietitian - 09/28/2020 14:00 EDT documented in this encounter Plan of Treatment Upcoming Encounters Date Type Department Care Team (Late st Contact Info) Description 11/24/2024 2:00 PM EDT Office Visit [facility] - [address] [facility] [address] [place] [address] Jalen Enciso MD [address] [place] [address] documented as of this encounter Visit Diagnoses Not on filedocumented in this encounter Care Teams Hotel Maintenance Technician Relationship Specialty Start Date End Date Kaylene Brooke MD [address] [place] [address] PCP - General General Internal Medicine 01/27/22 Farooq Marcus MD [address], [place] [address] PCP - General Family Medicine 02/27/22 documented as of this encounter
--- OUTSIDE RECORDS SUMMARY | 2024-11-21 21:23 | XMS_ITS | Encounter Summary ---
Author Organization [employer] ([place], [place], [place], [place]) Address [address] [place] [address] Care Team Providers Care Portable Machine Cutter Name Role Phone Kaylene Brooke MD Primary Care Provider [phone] Farooq Marcus MD Primary Care Provider [phone] Encounter Details Date Type Department Care Team (Late st Contact Info) Description 10/09/2020 Transcribed Document [facility] [place] Family Medicine [facility] [place] [address] ProviderRayray MD [address] [place] [address] Social History Tobacco Use Types Packs/Day Years Used Date Smoking Tobacco: Never Assessed Sex and Gender Information Value Date Recorded Sex Assigned at Not on file Legal Sex Male 5:14 PM CDT Gender Identity Not on file Sexual Orientation Not on file documented as of this encounter Miscellaneous Notes * Cerner Conversion Note - Rayray ProviderMD - 10/09/2020 12:19 PM CDT ED Triage Entered On: 10/09/2020 12:29 EDT Performed On: 10/09/2020 12:24 EDT by CHRISTIANO SANTIAGO RN-Resource ED Triage Across the Room Chief Complaint : nausea, vomiting for several weeks. radiation and chemo completed 3 weeks ago for esophageal cancer. Triage Date/Time : 10/09/2020 12:24 EDT CHRISTIANO SANTIAGO RN-Resource - 10/09/2020 12:24 EDT DCP GENERIC CODE Tracking Acuity : 3 - Urgent Tracking Group : [facility] ED CHRISTIANO SANTIAGO RN-Resource - 10/09/2020 12:24 EDT Mode of Arrival : Ambulatory Transported to ED by : Private vehicle To Room Via : Wheelchair Accompanied By : Significant other ED Vital Signs : Document Height & Weight : Document ED Allergies : Document ED Reason for Visit : Document CHRISTIANO SANTIAGO RN-Resource - 10/09/2020 12:24 EDT Infectious Disease History Has the patient ever been tested for COVID-19? : Yes, Patient stated results Negative Date of COVID-19 test known? : No Does patient have symptoms of COVID-19? : Yes COVID19 Screening : No Experiencing Infectious Disease Symptoms : Vomiting, Weakness/Fatigue Physical contact outside [place] in the last 30 days : No Infectious Disease History : Chicken pox/Shingles, Measles Tuberculosis Symptoms : None CHRISTIANO SANTIAGO RN-Resource - 10/09/2020 12:24 EDT Vital Signs ED Temperature Source : Oral Temperature Mode : Fahrenheit Temperature, Fahrenheit : 97.0 Deg F ED Pain : No Clinical Temperature, C : 36.1 Deg C Oxygen Therapy Mode : Room air Peripheral Pulse Rate : 77 bpm Respiratory Rate : 18 Breaths/Min Systolic Blood Pressure : 115 mmHg Diastolic Blood Pressure : 62 mmHg Oxygen Saturation : 96 % CHRISTIANO SANTIAGO RN-Resource - 10/09/2020 12:24 EDT Allergy (As Of: 10/09/2020 12:29:06 EDT) Allergies (Active) oxyCODONE Estimated Onset Date: Unspecified ; Comments: Comment 1: hallucinations ; Created By: CHRISTIANO SANTIAGO RN-Resource; Reaction Status: Active ; Category: Drug ; Substance: oxyCODONE ; Type: Allergy ; Updated By: CHRISTIANO SANTIAGO RN-Resource; Reviewed Date: 10/09/2020 12:27 EDT Diagnosis Control ED (As Of: 10/09/2020 12:29:06 EDT) Problems(Active) Anxiety disorder (SNOMED CT :873787735 ) Name of Problem: Anxiety disorder ; Recorder: ERIKA AKERS APRN-INT; Confirmation: Confirmed ; Classification: Medical ; Code: [id number] ; Contributor System: Win the Planet ; Last Updated: 04/22/2014 0:56 EST ; Life Cycle Date: 04/22/2014 ; Life Cycle Status: Active ; Responsible Provider: ERIKA AKERS APRN-INT; Vocabulary: SNOMED CT At risk for sleep apnea (IMO :35575859 ) Name of Problem: At risk for sleep apnea ; Recorder: SYSTEM, SYSTEM; Confirmation: Confirmed ; Classification: Medical ; Code: [id number] ; Last Updated: 09/08/2020 8:44 EDT ; Life Cycle Date: 09/08/2020 ; Life Cycle Status: Active ; Vocabulary: IMO Chest pain with high risk for cardiac etiology (SNOMED CT :15400374 ) Name of Problem: Chest pain with high risk for cardiac etiology ; Recorder: ERIKA AKERS APRN-INT; Confirmation: Confirmed ; Classification: Medical ; Code: [id number] ; Contributor System: Chi2gelChart ; Last Updated: 04/22/2014 0:56 EST ; Life Cycle Status: Active ; Responsible Provider: ERIKA AKERS APRN-INT; Vocabulary: SNOMED CT Esophagus cancer (SNOMED CT :886514561 ) Name of Problem: Esophagus cancer ; Recorder: JUVE GILBERT Rn-Clinical Coordinator I; Confirmation: Confirmed ; Classification: Patient Stated ; Code: [id number] ; Contributor System: PowerChart ; Last Updated: 09/08/2020 8:36 EDT ; Life Cycle Date: 09/08/2020 ; Life Cycle Status: Active ; Vocabulary: SNOMED CT Hyperlipidemia (SNOMED CT :52111036 ) Name of Problem: Hyperlipidemia ; Recorder: ERIKA BOYER MD-EMR; Confirmation: Confirmed ; Classification: Medical ; Code: [id number] ; Contributor System: PowerChart ; Last Updated: 04/21/2014 20:55 EST ; Life Cycle Date: 04/21/2014 ; Life Cycle Status: Active ; Responsible Provider: ERIKA BOYER MD-EMR; Vocabulary: SNOMED CT Leg neuralgia (SNOMED CT :10881163 ) Name of Problem: Leg neuralgia ; Recorder: ERIKA AKERS APRN-INT; Confirmation: Confirmed ; Classification: Medical ; Code: [id number] ; Contributor System: PowerChart ; Last Updated: 04/22/2014 0:56 EST ; Life Cycle Date: 04/22/2014 ; Life Cycle Status: Active ; Responsible Provider: ERIKA AKERS APRN-INT; Vocabulary: SNOMED CT Myocardial infarction (SNOMED CT :05756091 ) Name of Problem: Myocardial infarction ; Recorder: JUVE GILBERT Rn-Clinical Coordinator I; Confirmation: Confirmed ; Classification: Patient Stated ; Code: [id number] ; Contributor System: Win the Planet ; Last Updated: 09/08/2020 8:36 EDT ; Life Cycle Date: 09/08/2020 ; Life Cycle Status: Active ; Vocabulary: SNOMED CT Diagnoses(Active) Vomiting Date: 10/09/2020 ; Diagnosis Type: Reason For Visit ; Confirmation: Complaint of ; Clinical Dx: Vomiting ; Classification: Medical ; Clinical Service: Emergency medicine ; Code: PNED ; Probability: 0 ; Diagnosis Code: [id number] ED Height and Weight Height Source : Stated Height Entry Format : [place] Height, Feet : 6 ft(Converted to: 183 cm, 72 Inch) Height, Inches : 0 Inch(Converted to: 0 ft 0 Inch, 0.00 cm) Clinical Height : 182.88 cm Weight Source, ED : Critical estimated dosing weight Weight Entry Format : [place] Weight, Pounds : 150 lb Clinical Dosing Weight : 68.18 kg Body Surface Area (BSA) : 1.89 m2 Body Mass Index : 20.4 kg/m2 [place] Body Weight (IBW) : 76.59 kg CHIRSTIANO SANTIAGO RN-Resource - 10/09/2020 12:24 EDT Electronically signed by Nidia [facility] Conversion Winch Truck Operator Cerner at 06/29/2022 2:18 PM CDT documented in this encounter Plan of Treatment Upcoming Encounters Date Type Department Care Team (Late st Contact Info) Description 11/24/2024 2:00 PM EDT Office Visit [facility] - [place] [address] [facility] [address] [place] [address] Jalen Enciso MD [address] [place] [address] documented as of this encounter Visit Diagnoses Not on filedocumented in this encounter Care Teams Portable Machine Cutter Relationship Specialty Start Date End Date Kaylene Brooke MD [address] [place] [address] PCP - General General Internal Medicine 01/27/22 Farooq Marcus MD [address] [facility] [place] [address] PCP - General Family Medicine 02/27/22 documented as of this encounter
--- OUTSIDE RECORDS SUMMARY | 2024-11-21 21:23 | XMS_ITS | Encounter Summary ---
Author Organization [employer] ([place], [place], [place], [place]) Address [address] [place] [address] Care Team Providers Care Benefit Specialist Name Role Phone Kaylene Brooke MD Primary Care Provider [phone] Farooq Marcus MD Primary Care Provider [phone] Encounter Details Date Type Department Care Team (Late st Contact Info) Description 09/28/2020 Transcribed Document [facility] [place] Family Medicine [facility] [place] [address] ProviderRayray MD [address] [place], [place] [address] Social History Tobacco Use Types Packs/Day Years Used Date Smoking Tobacco: Never Assessed Sex and Gender Information Value Date Recorded Sex Assigned at Not on file Legal Sex Male 5:14 PM CDT Gender Identity Not on file Sexual Orientation Not on file documented as of this encounter Miscellaneous Notes * Cerner Conversion Note - Rayray ProviderMD - 09/28/2020 3:29 PM CDT On Going Discharge Planning Entered On: 09/28/2020 15:30 EDT Performed On: 09/28/2020 15:29 EDT by ELIZABETH LAMBERT, RN-Diaper Machine TenderClerical Methods Analyst Progress Note Discharge Arrangements : Patient Post-Acute Information Patient Name: DOYEL DEL ANGEL Gender: Male : 37 Age: 84 Years No Post-Acute Placement(s) Listed No Post-Acute Service(s) Listed No Curaspan Referral(s) Listed Is the Patient Meeting Medical Necessity : Yes Did you Attend Multidisciplinary Rounds? : Yes ELIZABETH LAMBERT, RN-Diaper Machine Tender - 09/28/2020 15:29 EDT Narrative Progress Note Narrative Progress Note : rrs mod boost 3 6/5 day s cm spoke to daughter and patient . cm arranged for [facility] hh and walker from [facility] . choice /im needed . family will transport at discharge [facility] dcp: home hh Historical Progress Note : rrs mod boost 3 5/5 day s cm spoke to daughter and patient . cm arranged for vna hh and walker from [facility] . choice /im needed . family will transport at discharge [facility] dcp: home hh ELIZABETH LAMBERT, RN-Diaper Machine Tender - 09/27/20 15:38:46 rrs mod plans pending -[facility] previous charting :DCP: patient states he plans on going home with spouse, who will transport, therapy recommends home health and rolling walker at discharge and patient agrees to this if MD feels appropriate. CM will continue to follow. ELIZABETH LAMBERT, RN-Diaper Machine Tender - 09/24/20 16:39:43 ELIZABETH LAMBERT, RN-Diaper Machine Tender - 09/28/2020 15:29 EDT documented in this encounter Plan of Treatment Upcoming Encounters Date Type Department Care Team (Late st Contact Info) Description 11/24/2024 2:00 PM EDT Office Visit [facility] - [place] [address] [address] [facility] [address] [place] [address] Jalen Enciso MD [address] [place] [address] documented as of this encounter Visit Diagnoses Not on filedocumented in this encounter Care Teams Benefit Specialist Relationship Specialty Start Date End Date MendyKaylene dunn MD [address] [place] [address] PCP - General General Internal Medicine 01/27/22 Farooq Marcus MD [address] [place], [place] [address] PCP - General Family Medicine 02/27/22 documented as of this encounter
--- OUTSIDE RECORDS SUMMARY | 2024-11-21 21:23 | XMS_ITS | Encounter Summary ---
Author Organization [employer] ([place], [place], [place], [place]) Address [address] [place] [address] Care Team Providers Care Etl Manager Name Role Phone Kaylene Brooke MD Primary Care Provider [phone] Farooq Marcus MD Primary Care Provider [phone] Encounter Details Date Type Department Care Team (Late st Contact Info) Description 10/13/2020 Transcribed Document [facility] [place] [address] [place] [address] ProviderRayray MD [address] [place] [address] Social History Tobacco Use Types Packs/Day Years Used Date Smoking Tobacco: Never Assessed Sex and Gender Information Value Date Recorded Sex Assigned at Not on file Legal Sex Male 5:14 PM CDT Gender Identity Not on file Sexual Orientation Not on file documented as of this encounter Miscellaneous Notes * Cerner Conversion Note - Rayray ProviderMD - 10/13/2020 10:52 AM CDT Stroke/Warfarin Instructions Entered On: 10/13/2020 10:53 EDT Performed On: 10/13/2020 10:52 EDT by Ilsa Nair RN Stroke/Warfarin Instructions Stroke/TIA Discharge Ins : N/A Warfarin Discharge Ins : N/A Ilsa Nair RN - 10/13/2020 10:52 EDT Education Topics: Anticoagulant Education Anticoagulant : Anticoagulant other than warfarin Compliance Issues *Q : Verbalizes understanding Diet *Q : Verbalizes understanding Adverse drug reactions/interactions *Q : Verbalizes understanding Action/Interaction with Other Drugs : Verbalizes understanding Follow-up care/monitoring *Q : Verbalizes understanding Follow-up Care Details : Physician's office/clinic Ilsa Nair, RN - 10/13/2020 10:52 EDT documented in this encounter Plan of Treatment Upcoming Encounters Date Type Department Care Team (Late st Contact Info) Description 11/24/2024 2:00 PM EDT Office Visit [facility] - [place] [address] [place] [address] Jalen Enciso MD [address] [place] [address] documented as of this encounter Visit Diagnoses Not on filedocumented in this encounter Care Teams Etl Manager Relationship Specialty Start Date End Date Kaylene Brooke MD [address] [place] [address] PCP - General General Internal Medicine 01/27/22 Farooq Marcus MD [address] [place] [address] PCP - General Family Medicine 02/27/22 documented as of this encounter
--- OUTSIDE RECORDS SUMMARY | 2024-11-21 21:23 | XMS_ITS | Encounter Summary ---
Author Organization [employer] ([place], [place], [place], [place]) Address [address] [place] [address] Care Team Providers Care Chip Unloader Name Role Phone Kaylene Brooke MD Primary Care Provider [phone] Farooq Marcus MD Primary Care Provider Encounter Details Date Type Department Care Team (Late st Contact Info) Description 09/29/2020 Transcribed Document [facility] [place] [facility] [place] [address] ProviderRayray MD [address] [place] [address] Social History Tobacco Use Types Packs/Day Years Used Date Smoking Tobacco: Never Assessed Sex and Gender Information Value Date Recorded Sex Assigned at Not on file Legal Sex Male 5:14 PM CDT Gender Identity Not on file Sexual Orientation Not on file documented as of this encounter Miscellaneous Notes * Cerner Conversion Note - Historical ProviderMD - 09/29/2020 8:31 AM CDT Discharge Summary, PT Entered On: 09/29/2020 8:32 EDT Performed On: 09/29/2020 8:31 EDT by Wood Willson PHYSICAL REBEKAH NON-EXEMPT Discharge Summary Discharge Summary Provider Notified : Nursing Reason for Discharge : Discharged from hospital Discharged to, Therapy : Home, with family care Wood Willson PHYSICAL THERAPIST NON-EXEMPT - 09/29/2020 8:31 EDT Discharge Summary Comment, PT : As of 09/28: Functional mobility: Supine to Sit : Rehab Complete independence Sit to Stand : Supervision/set-up Stand to Sit : Supervision/set-up Sit to Supine : Rehab Complete independence Gait Training/Assessment, PT Gait Assistance Level : Independent, modified + walker Walking Distance : 1050 Pt met 05/12 STG and 03/12 LTG. Wood Willson, PHYSICAL THERAPIST NON-EXEMPT - 09/29/2020 8:33 EDT Electronically signed by Nidia [facility] Conversion Director Of Logistics Cerner at 06/29/2022 2:27 PM CDT documented in this encounter Plan of Treatment Upcoming Encounters Date Type Department Care Team (Late st Contact Info) Description 11/24/2024 2:00 PM EDT Office Visit [facility] - [facility] [address] [facility] [address] [place] [address] Jalen Enciso MD [address] [facility] [address] [place] [address] documented as of this encounter Visit Diagnoses Not on filedocumented in this encounter Care Teams Chip Unloader Relationship Specialty Start Date End Date Kaylene Brooke MD [address] [place] [address] PCP - General General Internal Medicine 01/27/22 Farooq Marcus MD [address] [facility] [place] [address] PCP - General Family Medicine 02/27/22 documented as of this encounter
--- OUTSIDE RECORDS SUMMARY | 2024-11-21 21:23 | XMS_ITS | Encounter Summary ---
Author Organization [employer] ([place], [place], [place], [place]) Address [address] [place] [address] Care Team Providers Care Doughnut Machine Operator Helper Name Role Phone Kaylene Brooke MD Primary Care Provider [phone] Farooq Marcus MD Primary Care Provider [phone] Encounter Details Date Type Department Care Team (Late st Contact Info) Description 09/28/2020 Transcribed Document [facility] [place] [facility] [place] [address] ProviderRayray MD [address] [place], [place] [address] Social History Tobacco Use Types Packs/Day Years Used Date Smoking Tobacco: Never Assessed Sex and Gender Information Value Date Recorded Sex Assigned at Not on file Legal Sex Male 5:14 PM CDT Gender Identity Not on file Sexual Orientation Not on file documented as of this encounter Miscellaneous Notes * Cerner Conversion Note - Rayray ProviderMD - 09/28/2020 2:00 AM CDT Securities Attorney Details Entered On: 09/28/2020 3:18 EDT Performed On: 09/28/2020 2:00 EDT by Niki Guzman RN Order Details Transport Mode Order Detail : Bed (including specialty) Isolation Precautions Order Detail : Standard Precautions Order Detail : N/A IV Order Detail : 0 Oxygen Order Detail : 0 Nurse Collect Order Detail : 1 Lift/Transfer : Minimal Central Line Order Detail : Yes Room Service : Appropriate Arterial Line : No Patient Needs Meds Crushed/Liquid : No Niki Guzman RN - 09/28/2020 3:17 EDT documented in this encounter Plan of Treatment Upcoming Encounters Date Type Department Care Team (Late st Contact Info) Description 11/24/2024 2:00 PM EDT Office Visit [facility] - [place] [address] [place] [address] Jalen Enciso MD [address] [place] [address] documented as of this encounter Visit Diagnoses Not on filedocumented in this encounter Care Teams Doughnut Machine Operator Helper Relationship Specialty Start Date End Date MendyKaylene dunn MD [address] [place] [address] PCP - General General Internal Medicine 01/27/22 Farooq Marcus MD [address] [facility] [place] [address] PCP - General Family Medicine 02/27/22 documented as of this encounter
--- OUTSIDE RECORDS SUMMARY | 2024-11-21 21:23 | XMS_ITS | Encounter Summary ---
Author Organization [employer] ([place], [place], [place], [place]) Address [address] [place] [address] Care Team Providers Care Tapper Shank Name Role Phone Kaylene Brooke MD Primary Care Provider [phone] Farooq Marcus MD Primary Care Provider [phone] Encounter Details Date Type Department Care Team (Late st Contact Info) Description 10/01/2020 Transcribed Document [facility] [facility] [place] [address] ProviderRayray MD [address] [place] [address] Social History Tobacco Use Types Packs/Day Years Used Date Smoking Tobacco: Never Assessed Sex and Gender Information Value Date Recorded Sex Assigned at Not on file Legal Sex Male 5:14 PM CDT Gender Identity Not on file Sexual Orientation Not on file documented as of this encounter Miscellaneous Notes * Cerner Conversion Note - Rayray ProviderMD - 10/01/2020 2:30 PM CDT Final Discharge Planning Entered On: 10/01/2020 14:31 EDT Performed On: 10/01/2020 14:30 EDT by KEISHA RIVERA Mkt Mate Fourth-Utilization Mgt Final Discharge Planning Discharge Arrangements : Patient Post-Acute Information Patient Name: DOYLE DEL ANGEL Gender: Male : 37 Age: 84 Years No Post-Acute Placement(s) Listed No Post-Acute Service(s) Listed No Curaspan Referral(s) Listed Discharge To Care Management : Home Health Services (Related/SOC within 3 days)-06 KEISHA RIVERA Mkt Mate Fourth-Utilization Mgt - 10/01/2020 14:30 EDT documented in this encounter Plan of Treatment Upcoming Encounters Date Type Department Care Team (Late st Contact Info) Description 11/24/2024 2:00 PM EDT Office Visit [facility] - [place] [address] [place] [address] Jalen Enciso MD [address] [place] [address] documented as of this encounter Visit Diagnoses Not on filedocumented in this encounter Care Teams Tapper Shank Relationship Specialty Start Date End Date Kaylene Brooke MD [address] [place] [address] PCP - General General Internal Medicine 01/27/22 Farooq Marcus MD [address] [place] [address] PCP - General Family Medicine 02/27/22 documented as of this encounter
--- OUTSIDE RECORDS SUMMARY | 2024-11-21 21:23 | XMS_ITS | Encounter Summary ---
Author Organization [employer] ([place], [place], [place], [place]) Address [address] [place] [address] Care Team Providers Care Automobile Repossessor Name Role Phone Kaylene Brooke MD Primary Care Provider [phone] Farooq Marcus MD Primary Care Provider [phone] Encounter Details Date Type Department Care Team (Late st Contact Info) Description 10/09/2020 Transcribed Document [facility] [place] [facility] [place] [place] [address] ProviderRayray MD [address] [place] [address] Social History Tobacco Use Types Packs/Day Years Used Date Smoking Tobacco: Never Assessed Sex and Gender Information Value Date Recorded Sex Assigned at Not on file Legal Sex Male 5:14 PM CDT Gender Identity Not on file Sexual Orientation Not on file documented as of this encounter Miscellaneous Notes * Cerner Conversion Note - Rayray ProviderMD - 10/09/2020 5:00 PM CDT Patient: DOYLE DEL ANGEL Age: 84 years Sex: Male : 1935 Associated Diagnoses: None Author: SASHA PEREZ PA-C [facility] Purpose of Encounter: Advanced care planning in light of worsening weakness, weight loss, esophageal cancer Parties in attendance: Patient, Provider, Decisional Capacity: [Yes Diagnoses: Admitting Diagnosis Nausea 10/09/2020 R11.0 ICD-10-CM Post chemo evaluation 10/09/2020 Z09 ICD-10-CM Vomiting 10/09/2020 R11.10 ICD-10-CM esophageal cancer weakness Patients Medical Story: [ Mr. Del Angel is an 84 year old gentleman with esophageal cancer who has been in a period of generalized decline for at least one month. He was doing ok until last chemotherapy September 17 and now is admitted for the second time since. His is his next of kin/decision maker. Goals of Care Determinations: Patient wishes to focus on improvement of nausea/vomiting so he can eat he wants to get stronger so that he can be home safely. Despite his illness he and his want him to be a full code but is agreeable to consult by palliative care Plan: Will notify Primary Care Provider MAZIN SHERIDAN [facility] of change in care plan. Will look at further interventions as needed. Code Status: At this time patient wishes to be Code Status Start: 10/09/20 16:33:00 EDT, Full Code, Continuous Order Time Spent with Patient: [ 17] minutes Electronically signed by [facility] Conversion Plant Inspector Cerner at 06/29/2022 2:19 PM CDT documented in this encounter Plan of Treatment Upcoming Encounters Date Type Department Care Team (Late st Contact Info) Description 11/24/2024 2:00 PM EDT Office Visit [facility] - [facility] [address] [facility] [address] [place] [address] Jalen Enciso MD [address] [facility] [address] [place] [address] documented as of this encounter Visit Diagnoses Not on filedocumented in this encounter Care Teams Automobile Repossessor Relationship Specialty Start Date End Date Kaylene Brooke MD [address] [place] [address] PCP - General General Internal Medicine 01/27/22 Farooq Marcus MD [address] [place] [address] PCP - General Family Medicine 02/27/22 documented as of this encounter
--- OUTSIDE RECORDS SUMMARY | 2024-11-21 21:23 | XMS_ITS | Encounter Summary ---
Author Organization [employer] ([place], [place], [place], [place]) Address [address] [place] [address] Care Team Providers Care Florist Name Role Phone Kaylene Brooke MD Primary Care Provider [phone] Farooq Marcus MD Primary Care Provider [phone] Encounter Details Date Type Department Care Team (Late st Contact Info) Description 10/13/2020 Transcribed Document [facility] [place] Family Medicine [address] [place] [address] Rayray San MD [address] [place], [place] [address] Social History Tobacco Use Types Packs/Day Years Used Date Smoking Tobacco: Never Assessed Sex and Gender Information Value Date Recorded Sex Assigned at Not on file Legal Sex Male 5:14 PM CDT Gender Identity Not on file Sexual Orientation Not on file documented as of this encounter Miscellaneous Notes * Cerner Conversion Note - Rayray San MD - 10/13/2020 11:09 AM CDT Patient Education Materials Follows: Gastritis, Adult Gastritis is swelling (inflammation) of [...] these instructions at home: Medicines ??? Take [id number] and prescription medicines only as told by [...] alcohol: ? Limit your use to: ? 0?1 drink a day for women. ? 0?2 drinks a day for men. ? Be aware of how much alcohol is in your drink. In the [place] one drink equals one 12 oz bottle of beer (355 mL), one 5 oz glass of wine (148 mL), or one 1? oz glass of hard liquor (44 mL). [...] provider. Document Revised: 07/16/2018 Document Reviewed: 07/16/2018 [employer] Patient Education ? 2020 [employer] documented in this encounter Plan of Treatment Upcoming Encounters Date Type Department Care Team (Late st Contact Info) Description 11/24/2024 2:00 PM EDT Office Visit [facility] - [address] [facility] [address] [facility] [address] [place] [address] Jalen Enciso MD [address] [place] [address] documented as of this encounter Visit Diagnoses Not on filedocumented in this encounter Care Teams Florist Relationship Specialty Start Date End Date Kaylene Brooke MD [address] [place] [address] PCP - General General Internal Medicine 01/27/22 Farooq Marcus MD [address] [place] [address] PCP - General Family Medicine 02/27/22 documented as of this encounter
--- OUTSIDE RECORDS SUMMARY | 2024-11-21 21:23 | XMS_ITS | Encounter Summary ---
Author Organization [employer] ([place], [place], [place], [place]) Address [address] [place] [address] Care Team Providers Care Growth Media Mixer Mushroom Name Role Phone Kaylene Brooke MD Primary Care Provider [phone] Farooq Marcus MD Primary Care Provider [phone] Encounter Details Date Type Department Care Team (Late st Contact Info) Description 10/09/2020 Transcribed Document [facility] [place] Family Medicine [facility] [place] [address] ProviderRayray MD [address] [place] [address] Social History Tobacco Use Types Packs/Day Years Used Date Smoking Tobacco: Never Assessed Sex and Gender Information Value Date Recorded Sex Assigned at Not on file Legal Sex Male 5:14 PM CDT Gender Identity Not on file Sexual Orientation Not on file documented as of this encounter Miscellaneous Notes * Cerner Conversion Note - Historical ProviderMD - 10/09/2020 3:41 PM CDT Patient: DOYLE DEL ANGEL Age: 84 years Sex: Male : 1935 Associated Diagnoses: Post chemo evaluation; Vomiting; Nausea Author: LATOYA GRAY APRN Basic Information Time seen: Immediately upon arrival. History source: Patient. Arrival mode: Private vehicle. History limitation: None. Additional information: Chief Complaint from Nursing Triage Note : Chief Complaint 10/09/2020 12:24 EDT Chief Complaint nausea, vomiting for several weeks. radiation and chemo completed 3 weeks ago for esophageal cancer. . History of Present Illness Patient presents to the ER with complaints of nausea and vomiting for the past couple days. states that he is not really felt well since he had his chemo 3 weeks ago. Patient has a history of esophageal cancer. He also had a port placed on September 08 in which sutures and Steri-Strips are still in place. Patient denies any fever or chills just states that he has really been unable to eat or drink. Patient denies any abdominal pain. Review of Systems Constitutional symptoms: No fever, no chills. Skin symptoms: No jaundice, Respiratory symptoms: Negative except as documented in HPI, port site to the right upper chest wall. sutures and steri strip in place.. Cardiovascular symptoms: Negative except as documented in HPI. Gastrointestinal symptoms: Nausea, vomiting. Genitourinary symptoms: Negative except as documented in HPI. Musculoskeletal symptoms: Negative except as documented in HPI. Neurologic symptoms: Negative except as documented in HPI. Psychiatric symptoms: Negative except as documented in HPI. Endocrine symptoms: Negative except as documented in HPI. Hematologic/Lymphatic symptoms: Negative except as documented in HPI. Allergy/immunologic symptoms: Negative except as documented in HPI. Health Status Allergies: Allergic Reactions (Selected) Severity Not Documented OxyCODONE- No reactions were documented.. Medications: (Selected) Inpatient Medications Ordered PACLitaxel + Sodium Chloride 0.9% intravenous solution 500 mL: 157 mg, 26.17 mL, 581 mL/Hr, IV Piggyback, 1-Time Pepcid + Sodium Chloride 0.9% intravenous solution 50 mL: 20 mg, 2 mL, 180 mL/Hr, IV Piggyback, 1-Time Sodium Chloride 0.9% intravenous solution: 250 mL, 50 mL/Hr, IntraVENous, 1-Time dexAMETHasone + Sodium Chloride 0.9% intravenous solution 50 mL: 20 mg, 5 mL, 189 mL/Hr, IV Piggyback, 1-Time diphenhydrAMINE: 12.5 mg, IV Push, 1-Time granisetron: 1 mg, IV Push, 1-Time trastuzumab: 614 mL/Hr, IV Piggyback, 1-Time Prescriptions Prescribed Pepcid 20 mg oral tablet: 1 Tab, Oral, Daily, for 30 Day(s), 30 Tab, 1 Refill(s) clopidogrel 75 mg oral tablet: 1 Tab, Oral, Daily, for 30 Day(s), 30 Tab, 0 Refill(s) Documented Medications Documented LORazepam: 1 mg, Oral, TID, 0 Refill(s) aspirin: 81 mg, Oral, Daily, 0 Refill(s) multivitamin: 1 Tab, Oral, Daily, 0 Refill(s). Past Medical/ Family/ Social History Surgical history: Pacemaker. cardiac stent. heart cath. colonoscopy., Reviewed as documented in chart. Family history: Entire family history is negative., Reviewed as documented in chart. Social history: Social & Psychosocial Habits Alcohol 04/22/2014 Alcohol Use History, Social Habits No Alcohol Use in Last Twelve Months No Substance Abuse 09/08/2020 Recreational Drug Use History No Tobacco 04/22/2014 Smoking Status Never smoker . Problem list: Active Problems (7) Anxiety disorder At risk for sleep apnea Chest pain with high risk for cardiac etiology Esophagus cancer Hyperlipidemia Leg neuralgia Myocardial infarction . Physical Examination Vital Signs Vital Signs/Vital Measures 10/09/2020 14:33 EDT Systolic Blood Pressure 142 mmHg HI Diastolic Blood Pressure 66 mmHg Mean Arterial Pressure (MAP)-BMDI 97 Heart Rate Monitored 68 bpm Oxygen Saturation 95 % Oxygen Therapy Mode Room air 10/09/2020 13:56 EDT Oxygen Therapy Mode Room air 10/09/2020 13:23 EDT Systolic Blood Pressure 133 mmHg Diastolic Blood Pressure 65 mmHg Mean Arterial Pressure (MAP)-BMDI 93 Heart Rate Monitored 68 bpm Oxygen Saturation 95 % Oxygen Therapy Mode Room air 10/09/2020 12:24 EDT Systolic Blood Pressure 115 mmHg Diastolic Blood Pressure 62 mmHg Temperature Source Oral Temperature Mode Fahrenheit Temperature, Fahrenheit 97.0 Deg F Clinical Temperature, C 36.1 Deg C Peripheral Pulse Rate 77 bpm Respiratory Rate 18 Breaths/Min Oxygen Saturation 96 % Oxygen Therapy Mode Room air . Measurements 10/09/2020 12:24 EDT Height Source Stated Height Entry Format [place] Height/Length, AUSTRALIAN (ft) 6 ft Height/Length AUSTRALIAN 0 Inch CLINICALHEIGHT 182.88 cm Trilla Body Weight 76.59 kg Weight Source, ED Critical estimated dosing weight Weight Entry Format [place] Weight French lb 150 lb CLINICALWEIGHT 68.18 kg Body Surface Area (BSA) 1.89 m2 Body Mass Index 20.4 kg/m2 . Oxygen Saturation 10/09/2020 14:33 EDT Oxygen Saturation 95 % 10/09/2020 13:23 EDT Oxygen Saturation 95 % 10/09/2020 12:24 EDT Oxygen Saturation 96 % . General: Alert, no acute distress. Skin: Warm, pink, intact. Cardiovascular: Regular rate and rhythm. Respiratory: Lungs are clear to auscultation, respirations are non-labored, breath sounds are equal, Symmetrical chest wall expansion. Gastrointestinal: Soft, Nontender, Non distended. Musculoskeletal: Normal ROM. Neurological: Alert and oriented to person, place, time, and situation. Lymphatics: No lymphadenopathy. Psychiatric: Cooperative. Medical Decision Making Differential Diagnosis: Nausea, vomiting, gastritis, bowel obstruction, dehydration, electrolyte abnormality, viral syndrome. Orders Include Previous Orders (Selected) Inpatient Orders Ordered ED Fall Risk Documented: ED Isolation: Electrocardiogram: Isolation: Saline Lock Insert: Saline Lock Insert: Ordered (Dispatched) Amylase Level: Lipase Level: Cancelled (Canceled) .Automated Differential: XA CVC Tunneled W Port: Completed .Differential Manual: .Urinalysis Microscopic: Broset Violence Assessment: CBC w/ Auto Diff: CMP Comprehensive Metabolic Panel: ED Adult Fall Risk Assessment: ED Adult Triage: ED C-SSRS: ED Clinical Reconciliation: ED search marketing coordinator: Magnesium Level: Normal Saline Bolus: 1,000 mL, 1,000 mL/Hr, IV Piggyback, 1-Time Normal Saline Flush: 10 mL, IV Push, 1-Time Normal Saline Flush: 10 mL, IV Push, See Comment Urinalysis UA Rflx Microscopic Cult if Ind: Zofran: 8 mg, IV Push, 1-Time. Results review: Lab results : Lab Results 10/09/2020 14:45 EDT Urine Type. U CleanCatch Urine Color Yellow Urine Appearance Clear Urine Specific [place] 1.014 Urine pH Dipstick *8.0 Urine Leukocyte Esterase Trace Urine Nitrite Negative Urine Protein Dipstick Negative Urine Glucose Dipstick Negative Urine Ketones Dipstick Negative Urine Urobilinogen Dipstick 1.0 EU/dL Urine Bilirubin Dipstick Negative Urine Blood Dipstick Negative Ur WBC 0-2 /HPF Urine Culture if Indicated Not Indicated 10/09/2020 13:15 EDT Sodium Level 138 mmol/L Potassium Level 3.9 mmol/L Chloride Level 104 mmol/L Carbon Dioxide Level 31 mmol/L Anion Gap 7 LOW Glucose Level 88 mg/dL Blood Urea Nitrogen 11 mg/dL Creatinine Level 1.00 mg/dL eGFR >60 mL/min/1.73m2 eGFR NonAfrican >60 mL/min/1.73m2 Bun/Creatinine 11.0 Calcium Level 8.8 mg/dL Protein Total 6.6 Gram/dL Albumin Level 2.7 Gram/dL LOW Globulin 3.9 Gram/dL A/G Ratio 0.7 LOW Bilirubin Total 0.6 mg/dL Alk Phos 170 Units/Liter HI AST 23 Units/Liter ALT 27 Units/Liter Magnesium Level 2.1 mg/dL WBC 5.0 K/uL RBC 3.34 Million/uL LOW Hgb 10.2 g/dL LOW Hct 32.5 % LOW MCV 97.3 fL HI MCH 30.5 pg MCHC 31.4 Gram/dL LOW Platelet Count 311 K/uL MPV 8.5 fL LOW RDW 15.1 % HI Neutrophil Percent Man 70 % HI ANC # 4 K/uL NA Lymph Percent Man 9 % LOW ALYC # 0 K/uL NA [place] Percent Man 15 % HI Eos Percent Man 5 % HI Baso Percent Man 1 % RBC Morphology Abnormal Anisocytosis 1+ Hypochromia 1+ Ovalocytes 1+ Macrocytosis 1+ Platelet Ct Estimate Adequate Slide Review Add Diff Man . Radiology results: No Radiology Results Found. Impression and Plan Diagnosis Post chemo evaluation - Discharge, Emergency medicine, Medical Vomiting - Discharge, Emergency medicine, Medical Nausea - Discharge, Emergency medicine, Medical Calls-Consults - 10/09/2020 15:46:00 , BRONWYN HASSAN MD-ONC. - 10/09/2020 15:47:00 , PARKER RAVI MD-INT. Plan Condition: Stable. Disposition: Admit Admit/Transfer/Discharge: Place in Observation (Order): Start: 10/09/2020 15:48 EDT, Observation Reason: nausea and vomiting, Unit type: Med-Surg with telemetry, Admitting: PARKER RAVI MD-INT. Counseled: Patient, Family, Regarding diagnosis, Regarding diagnostic results, Regarding treatment plan, Regarding prescription, Patient indicated understanding of instructions. documented in this encounter Plan of Treatment Upcoming Encounters Date Type Department Care Team (Late st Contact Info) Description 11/24/2024 2:00 PM EDT Office Visit [facility] Oncology - [address] [place] [address] Jalen Enciso MD [address] [place] [address] documented as of this encounter Visit Diagnoses Not on filedocumented in this encounter Care Teams Growth Media Mixer Mushroom Relationship Specialty Start Date End Date Kaylene Brooke MD [address] [place] [address] PCP - General General Internal Medicine 01/27/22 Farooq Marcus MD [address] [place] [address] PCP - General Family Medicine 02/27/22 documented as of this encounter
--- OUTSIDE RECORDS SUMMARY | 2024-11-21 21:23 | XMS_ITS | Encounter Summary ---
Author Organization [email or web address] ([place], [place], [place], [place]) Address [address] [place] [address] Care Team Providers Care Utilization Coordinator Name Role Phone Kaylene Brooke MD Primary Care Provider Farooq Marcus MD Primary Care Provider [phone] Encounter Details Date Type Department Care Team (Late st Contact Info) Description 10/13/2020 Transcribed Document [facility] [place] Family Medicine [facility] [place] [address] ProviderRayray MD [address] [place], [place] [address] Social History Tobacco Use Types Packs/Day Years Used Date Smoking Tobacco: Never Assessed Sex and Gender Information Value Date Recorded Sex Assigned at Not on file Legal Sex Male 5:14 PM CDT Gender Identity Not on file Sexual Orientation Not on file documented as of this encounter Miscellaneous Notes * Cerner Conversion Note - Rayray ProviderMD - 10/13/2020 5:00 AM CDT Chart Check - Review Order Profile Entered On: 10/13/2020 3:27 EDT Performed On: 10/13/2020 5:00 EDT by Camille Calix RN Chart Check Powerplans Initiated/Discontinued as Appropriate : Yes All Active Orders Reviewed : Yes Camille Calix RN - 10/13/2020 3:27 EDT documented in this encounter Plan of Treatment Upcoming Encounters Date Type Department Care Team (Late st Contact Info) Description 11/24/2024 2:00 PM EDT Office Visit [facility] - [address] [place] [address] Jalen Enciso MD [address] [place] [address] documented as of this encounter Visit Diagnoses Not on filedocumented in this encounter Care Teams Utilization Coordinator Relationship Specialty Start Date End Date Kaylene Brooke MD [address] [place] [address] PCP - General General Internal Medicine 01/27/22 Farooq Marcus MD [address] [facility] [place] [address] PCP - General Family Medicine 02/27/22 documented as of this encounter
--- OUTSIDE RECORDS SUMMARY | 2024-11-21 21:23 | XMS_ITS | Encounter Summary ---
Author Organization [employer] ([place], [place], [place], [place]) Address [address] [place] [address] Care Team Providers Care Local Operator Name Role Phone Kaylene Brooke MD Primary Care Provider [phone] Farooq Marcus MD Primary Care Provider [phone] Encounter Details Date Type Department Care Team (Late st Contact Info) Description 09/28/2020 Transcribed Document [facility] [place] [facility] [place] [address] ProviderRayray MD [address] [place] [address] Social History Tobacco Use Types Packs/Day Years Used Date Smoking Tobacco: Never Assessed Sex and Gender Information Value Date Recorded Sex Assigned at Not on file Legal Sex Male 5:14 PM CDT Gender Identity Not on file Sexual Orientation Not on file documented as of this encounter Miscellaneous Notes * Cerner Conversion Note - Rayray ProviderMD - 09/28/2020 5:09 PM CDT Nursing Discharge Summary Entered On: 09/28/2020 17:10 EDT Performed On: 09/28/2020 17:09 EDT by CASEY Romero, knitting tester Documentation Patient Disposition, General : Discharge, Elopement Discharge To : Home with ambulatory/outpatient follow-up Mode Of Departure, General Discharge : Private vehicle IV Discontinued : Yes Elopement Launch : Yes CASEY Romero RN - 09/28/2020 17:09 EDT Electronically signed by Nidia [facility] Conversion After School Counselor Cerner at 06/29/2022 2:40 PM CDT documented in this encounter Plan of Treatment Upcoming Encounters Date Type Department Care Team (Late st Contact Info) Description 11/24/2024 2:00 PM EDT Office Visit [facility] - [address] [place] [address] Jalen Enciso MD [address] [place] [address] documented as of this encounter Visit Diagnoses Not on filedocumented in this encounter Care Teams Local Operator Relationship Specialty Start Date End Date MendyKaylene dunn MD [address] [place] [address] PCP - General General Internal Medicine 01/27/22 Farooq Marcus MD [address] [place] [address] PCP - General Family Medicine 02/27/22 documented as of this encounter
--- OUTSIDE RECORDS SUMMARY | 2024-11-21 21:24 | XMS_ITS | Encounter Summary ---
Author Organization [employer] ([place], [place], [place], [place]) Address [address] [place] [address] Care Team Providers Care Billet Cutter Name Role Phone Kaylene Brooke MD Primary Care Provider [phone] Farooq Marcus MD Primary Care Provider [phone] Encounter Details Date Type Department Care Team (Late st Contact Info) Description 10/09/2020 Transcribed Document [facility] [place] Family [place] [address] ProviderRayray MD [address] [place], [place] [address] Social History Tobacco Use Types Packs/Day Years Used Date Smoking Tobacco: Never Assessed Sex and Gender Information Value Date Recorded Sex Assigned at Not on file Legal Sex Male 5:14 PM CDT Gender Identity Not on file Sexual Orientation Not on file documented as of this encounter Miscellaneous Notes * Cerner Conversion Note - Historical ProviderMD - 10/09/2020 5:00 PM CDT Chart Check - Review Order Profile Entered On: 10/09/2020 18:36 EDT Performed On: 10/09/2020 17:00 EDT by Zaida Cortez RN Chart Check Powerplans Initiated/Discontinued as Appropriate : Yes All Active Orders Reviewed : Yes Zaida Cortez RN - 10/09/2020 18:36 EDT Electronically signed by Nidia [facility] Conversion Office Employee Cerner at 06/29/2022 2:23 PM CDT documented in this encounter Plan of Treatment Upcoming Encounters Date Type Department Care Team (Late st Contact Info) Description 11/24/2024 2:00 PM EDT Office Visit [facility] - [address] [place] [address] Jalen Enciso MD [address] [place] [address] documented as of this encounter Visit Diagnoses Not on filedocumented in this encounter Care Teams Billet Cutter Relationship Specialty Start Date End Date Kaylene Brooke MD [address] [place] [address] PCP - General General Internal Medicine 01/27/22 Farooq Marcus MD [address] [facility] [place] [address] PCP - General Family Medicine 02/27/22 documented as of this encounter
--- OUTSIDE RECORDS SUMMARY | 2024-11-21 21:24 | XMS_ITS | Encounter Summary ---
Author Organization [employer] ([place], [place], [place], [place]) Address [address] [place] [address] Care Team Providers Care [employer] Name Role Phone Kaylene Brooke MD Primary Care Provider [phone] Farooq Marcus MD Primary Care Provider [phone] Encounter Details Date Type Department Care Team (Late st Contact Info) Description 09/22/2020 Transcribed Document [facility] [place] [facility] [place] [facility] [place] [address] ProviderRayray MD [address] [place] [address] Social History Tobacco Use Types Packs/Day Years Used Date Smoking Tobacco: Never Assessed Sex and Gender Information Value Date Recorded Sex Assigned at Not on file Legal Sex Male 5:14 PM CDT Gender Identity Not on file Sexual Orientation Not on file documented as of this encounter Miscellaneous Notes * Cerner Conversion Note - Rayray ProviderMD - 09/22/2020 4:21 PM CDT Admission History, Adult Entered On: 09/22/2020 23:52 EDT Performed On: 09/22/2020 16:21 EDT by Sean Guidry Rn Advance Directive Patient has Advance Directive *Q : No, patient requests assist formulating Advance Directive Sean Guidry Rn - 09/22/2020 23:43 EDT Anesthesia/Transfusion History Family History of Anesthesia Reaction : No prior transfusion(s) Blood Transfusion Acceptable to Patient : Yes Transfusion History : Prior anesthesia without reaction Family History of Anesthesia Reaction : None Sean Guidry Rn - 09/22/2020 23:43 EDT Anticipated Discharge Needs Discharge To, Anticipated : Home Sean Guidry Rn - 09/22/2020 23:43 EDT Functional Assessment Living Situation : Home Current Home Treatments : None Sean Guidry Rn - 09/22/2020 23:43 EDT General Info Mode of Arrival on Unit : Wheelchair Legal Guardian : Spouse Support Person/Patient 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 Temp 102 yesterday per . 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 Enciso. Information Obtained From : Patient Primary Language : Salvadorean Communication Barrier : None Advertiser Needed : No Sean Guidry Rn - 09/22/2020 23:43 EDT Fall Risk Scales ABCs Fall Injury Risk Identification : Age, Bones, Coagulation ABC Fall Injury Risk : Moderate to high injury risk HERRERA Hx Falls Immediate/Within 3 Months : No Herrera Secondary Diagnosis : Yes HERRERA Use of Ambulatory Aid : Bed rest/Nurse assist HERRERA IV Therapy or IV Access : Yes Herrera Gait/Transferring : Weak Herrera Mental Status : Oriented to own ability Herrera Fall Risk Score : 45 HERRERA Fall Scale Risk Level : 46 or > High Risk [place] Fall Interventions : Adequate lighting, Assistive devices within reach, Bed in low position, Call device within reach, Fall prevention handout/education per facility policy, Hourly comfort/safety rounds, Non-slip footwear, Personal items within reach, Reinforced to call for assistance before getting out of bed, Room free of clutter/spills, Upper side-rails up, Wheels locked, Wires/Cords secured Sean Guidry Rn - 09/22/2020 23:43 EDT Fall Risk Education Grid Alarms : Verbalizes understanding Assistive Equipment Use : Verbalizes understanding Bed Height/Stabilization : Verbalizes understanding Call light use : Verbalizes understanding Door Open : Verbalizes understanding Environmental Management : Verbalizes understanding Fall Contract/Letter : Verbalizes understanding Fall Prevention in the Home : Verbalizes understanding Home Risk Assessment : Verbalizes understanding Need Constant Observation : Verbalizes understanding Night Light Use : Verbalizes understanding Nonskid Footwear Use : Verbalizes understanding Orthostatic Hypotension Precautions : Verbalizes understanding Personal Article Availability : Verbalizes understanding Prevention Responsibility Family : Verbalizes understanding Prevention Responsibility Patient : Verbalizes understanding Risk Alert Methods : Verbalizes understanding Risk Factors : Verbalizes understanding Safety Aids : Verbalizes understanding Siderails use/risks : Verbalizes understanding Special Assistive Devices : Verbalizes understanding Staff Responsiveness : Verbalizes understanding Symptom Identification & Action Plan *Q : Verbalizes understanding Symptom Reporting : Verbalizes understanding Transfer/Mobility Techniques : Verbalizes understanding Urinal/Bedpan Availability : Verbalizes understanding Wait for Assistance : Verbalizes understanding Wheelchair Safety : Verbalizes understanding Sean Guidry Rn - 09/22/2020 23:43 EDT Health Histories Smoking Status : Never (less than 100 in lifetime; none in last 30 days) Smokeless Tobacco Status : Never Sean Gudiry Rn - 09/22/2020 23:43 EDT Social History (As Of: 09/22/2020 23:52:15 EDT) Tobacco: Smoking Status Never smoker. (Last Updated: 04/22/2014 15:35:05 EST by [place] REED Rn) Alcohol: Alcohol Use History No. Use in Last 12 Months: No. (Last Updated: 04/22/2014 15:34:53 EST by [place] REED Rn) Substance Abuse: Drug Use Hx: No. (Last Updated: 09/08/2020 08:39:23 EDT by JUVE GILBERT Rn-Clinical Coordinator I) Height and Weight, Clinical Dosing Height Source : Chart Height Entry Format : [place] Height, Feet : 6 ft(Converted to: 183 cm, 72 Inch) Height, Inches : 0 Inch(Converted to: 0 ft 0 Inch, 0.00 cm) Clinical Height : 182.88 cm Weight Source : Bed scale Weight Entry Format : [place] Clinical Dosing Weight : 79.55 kg Weight, Pounds : 175 lb Body Surface Area (BSA) : 2.01 m2 Body Mass Index : 23.8 kg/m2 [place] Body Weight : 77 kg Sean Guidry Rn - 09/22/2020 23:43 EDT Infectious Disease History Has the patient ever been tested for COVID-19? : Yes, Patient stated results Negative Date of COVID-19 test known? : Yes Date of COVID-19 Test : 09/22/2020 EDT Does patient have symptoms of COVID-19? : Yes COVID19 Screening : No Experiencing Infectious Disease Symptoms : Abdominal pain Physical contact outside [place] in the last 30 days : No Infectious Disease History : Chicken pox/Shingles, Measles Tuberculosis Symptoms : None Sean Guidry Rn - 09/22/2020 23:43 EDT Tetanus Immunization Status Previous Tetanus Immunizations : No qualifying data available. Sean Guidry Rn - 09/22/2020 23:43 EDT Influenza Vaccine Asmt, Adult Previous Vaccines from Immunization Schedule : No qualifying data available. Influenza Immunization, Current Season : No Inactivated Flu Vaccine Contraindications : No contraindications to inactivated influenza vaccine Transplant Workup/Recent Transplant : No Order for Influenza Vaccine : Declined Vaccination Sean Guidry Rn - 09/22/2020 23:43 EDT Pneumococcal Vaccine Previous Vaccines from Immunization Schedule : No qualifying data available. Pneumonia Immunization Received : No Pneumococcal Risk Assessment < Age 65 : N/A- Patient 65 years of age or older Pneumococcal Vaccine Contraindications : No contraindications to pneumococcal vaccine Transplant Workup/Recent Transplant : No Order for Pneumococcal Vaccine : Declined Vaccination Sean Guidry Rn - 09/22/2020 23:43 EDT Order Details Transport Mode Order Detail : Bed (including specialty) Isolation Precautions Order Detail : Standard Precautions Order Detail : N/A IV Order Detail : 1 Oxygen Order Detail : 0 Nurse Collect Order Detail : 0 Lift/Transfer : Minimal Central Line Order Detail : No Room Service : Appropriate Arterial Line : No Patient Needs Meds Crushed/Liquid : No Sean Guidry Rn - 09/22/2020 23:43 EDT Nutrition History Adaptive Feeding Equipment : Regular Eating Poorly Due to Decreased Appetite : Yes Unplanned Weight Loss in Past 3-6 Months : Yes Unplanned Weight Loss Amount : 14-23 lbs/6.4-10.5 kg Malnutrition Screening Tool Total(mal) : 3 Malnutrition Screening Tool Risk Level : Patient at risk Sean Guidry I, Rn - 09/22/2020 23:43 EDT Thelma Suicide Severity Rating Scale (C-SSRS) CSSRS Past Month Wish to be : No CSSRS Past Month Suicidal Thoughts : No CSSRS Lifetime Suicide Behavior : No Suicide Severity Rating Score : 0 Suicide Severity Rating : No Additional Care Required at this time ChaoLorenzonu Robertson Rn - 09/22/2020 23:43 EDT Psychosocial History Currently in Unsafe Situation : No Sean Guidry Rn - 09/22/2020 23:43 EDT Sleep Apnea Risk Assmt Hx of [...] Sleep Apnea Risk Level Score : 3 Sean Guidry Rn - 09/22/2020 23:43 EDT Spiritual/Cultural Needs Any Spiritual/Cultural Needs or Requests : No Sean Guidry Rn - 09/22/2020 23:43 EDT Valuables and Belongings Valuables and Belongings : Clothing Clothing : Common streetwear Clothing Disposition : With patient Chao, joyanu Robertson Rn - 09/22/2020 23:43 EDT documented in this encounter Plan of Treatment Upcoming Encounters Date Type Department Care Team (Late st Contact Info) Description 11/24/2024 2:00 PM EDT Office Visit [facility] [place] [address] [place] [address] Jalen Enciso MD [address] [place] [address] documented as of this encounter Visit Diagnoses Not on filedocumented in this encounter Care Teams [employer] Relationship Specialty Start Date End Date Kaylene Brooke MD [address] [place] [address] PCP - General General Internal Medicine 01/27/22 Farooq Marcus MD [address] [place], [place] [address] PCP - General Family Medicine 02/27/22 documented as of this encounter
--- OUTSIDE RECORDS SUMMARY | 2024-11-21 21:24 | XMS_ITS | Encounter Summary ---
Author Organization [employer] ([place], [place], [place], [place]) Address [address] [place] [address] Care Team Providers Care [employer] President [employer] Name Role Phone Kaylene Brooke MD Primary Care Provider [phone] Farooq Marcus MD Primary Care Provider [phone] Encounter Details Date Type Department Care Team (Late st Contact Info) Description 10/09/2020 Transcribed Document [facility] [place] [address] [place] [address] ProviderRaryay MD [address] [place] [address] Social History Tobacco Use Types Packs/Day Years Used Date Smoking Tobacco: Never Assessed Sex and Gender Information Value Date Recorded Sex Assigned at Not on file Legal Sex Male 5:14 PM CDT Gender Identity Not on file Sexual Orientation Not on file documented as of this encounter Miscellaneous Notes * Cerner Conversion Note - Historical ProviderMD - 10/09/2020 6:47 PM CDT Nutrition Assessment Entered On: 10/11/2020 7:54 EDT Performed On: 10/11/2020 7:54 EDT by [address], MYA Nutrition Assessment Nutrition Assessment Reason 2 : Malnutrition Screening Tool MARAL SIERRA RD, LD - 10/11/2020 12:27 EDT Nutrition Assessment Reason : Automatic referral MARAL SIERRA RD, LD - 10/11/2020 7:53 EDT Current Nutrition Regimen Comment : 10/11: Rec'd consult for PU and MST >2. Pt is s/p completion of chemo 3 weeks ago. Has had N/V x several weeks with minimal intake of solid food x 1 week inspector returned materials. Pt wiht significant weight loss since last admisison (11#/6.9% x 1 month). Spouse reports pt stopped drinking protein shakes d/t heartburn. Spoke with pt and spouse, states he ate ~30% of breakfast tray which is normal intake for him since start of chemo. States he has been eating 0-30% of meals since May and has lost a total of 30#(16.8%) x 4 months (severe). Observed Moderate buccal and calf muscle wasting. Was not tolerating Ensure oor Boost (adriane/vanilla) inspector returned materials. Wanting to try Ensure Clear Dx: N/V, mild dehydration PMH: met esophageal ca, recent chemo completion, NSTEMI, pancreatitis Meds: MVT, PPI Labs: noted Skin: stg 2 coccyx GI: LBM 10/07 DIet: Cardiac Intake: 0-30% of meals Ht: 72 in Wt: 148# (10/11) Wt Hx: 159# (09/08/20) UBW: ~180# per pt spouse BMI: 20.1 IBW: 178# MARAL SIERRA RD, LD - 10/11/2020 12:27 EDT Dietitian Malnutrition Assessment Energy Intake, Chronic Illness : Severely reduced: </= 75% needs for >/= 1 month Weight Loss, Chronic Illness : Severe: >10% past 6 months Physical Findings Body Fat & Muscle Mass : Moderate: (suggested) some loss of subcutaneous fat &/or muscle mass Physical Findings Fuctional Capacity : Moderate: (suggested) reduced functional capacity Malnutrition Etiology Summary : Chronic illness severe Nutrition Assessment Result : Severe Protein Calorie Malnutrition Nutrition Assessment Completed : Yes Malnutrition Survey Comment : Severe PCM Criteria Met: Pt reports eating 0-30% of meals since May and has lost a total of 30#(16.8%) x 4 months (severe). Observed Moderate buccal and calf muscle wasting MARAL SIERRA RD, LD - 10/11/2020 12:27 EDT Nutrition Diagnoses Nutrient Intake : Chronic disease or condition related malnutrition Nutrient Intake Related to : esophageal ca Nutrient Intake As Evidenced by : Pt reports eating 0-30% of meals since May and has lost a total of 30#(16.8%) x 4 months (severe). Observed Moderate buccal and calf muscle wasting Nutrient Intake Status : Active MARIELA MARALML LD 10/11/2020 12:27 EDT Nutrition Interventions Meals and Snacks : Sodium modified diet Nutrition Supplement Therapy : Commercial beverage MARAL SIERRAML LD 10/11/2020 12:36 EDT Monitoring/Evaluation Energy Intake : Total energy intake Food Intake : Amount of food Protein Intake : Total protein Weight Status : Weight Maintanence Gastrointestinal Function : Bowel Function MARIELA MARALML LD 10/11/2020 12:36 EDT Nutrition Recommendations Dietitian Recommendations : 1. Liberalize diet to Regular. Will add Ensure Clear TID GoaL: PO intake >50% of meals; increase aurora/pro intake 2. Weigh pt 2x weekly Goal: No further significant weight changes High Risk Severe PCM Criteria Met 10/11/[address] [facility] 10/11/2020 12:36 EDT Education Topics, Nutrition Nutrition Education Grid Dietary Supplements : Verbalizes understanding SANDRAJADA MARALML [facility] 10/11/2020 12:36 EDT documented in this encounter Plan of Treatment Upcoming Encounters Date Type Department Care Team (Late st Contact Info) Description 11/24/2024 2:00 PM EDT [facility] [address] [facility] [address] [address] [place] [address] Jalen Enciso MD [address] [facility] [address] [place] [address] documented as of this encounter Visit Diagnoses Not on filedocumented in this encounter Care Teams Vice President For Instruction Relationship Specialty Start Date End Date Kaylene Brooke MD [address] [place] [address] PCP - General General Internal Medicine 01/27/22 Farooq Marcus MD [address] [place] [address] PCP - General Family Medicine 02/27/22 documented as of this encounter
--- OUTSIDE RECORDS SUMMARY | 2024-11-21 21:24 | XMS_ITS | Encounter Summary ---
Author Organization [employer] ([place], [place], [place], [place]) Address [address] [place] [address] Care Team Providers Care Powder Worker Name Role Phone Kaylene Brooke MD Primary Care Provider [phone] Farooq Marcus MD Primary Care Provider [phone] Encounter Details Date Type Department Care Team (Late st Contact Info) Description 09/22/2020 Transcribed Document [facility] [place] [facility] [place] [address] ProviderRayray MD [address] [place] [address] Social History Tobacco Use Types Packs/Day Years Used Date Smoking Tobacco: Never Assessed Sex and Gender Information Value Date Recorded Sex Assigned at Not on file Legal Sex Male 5:14 PM CDT Gender Identity Not on file Sexual Orientation Not on file documented as of this encounter Miscellaneous Notes * Cerner Conversion Note - Rayray ProviderMD - 09/22/2020 4:06 PM CDT Patient: RANCHO DEL ANGEL Age: 84 years Sex: Male : 1935 Associated Diagnoses: None Author: CHANTELLE LUNDBERG DO Basic Information Source of history: Self, Medical record. History limitation: None. Chief Complaint abd pain, n/v. PCP: tommie mccartney in [place] oncologist: dr seo hogshead mat assembler: dr topete and dr COSTA in [place] Subjective Mr. Del Angel is an 84 year old male with history of esophageal cancer on chemotherapy with dr Seo, last chemo on 09/17, coronary artery disease last with PCI in [facility] about 2 months ago as well as pacemaker for heart rhythm , possibly afib who presented to [facility] on 09/22 for evaluation of abd pain and nausea with vomiting. Patient tells me that he has been sick since his chemotherapy on 09/17, which wasnt too unusual for him, however over the last 24 hours he has had worsening nausea and vomiting as well. Vomit has been green colored. He reports constipation which has been an ongoing moya for him. Pain is mostly sharp in the mid abd. Patient and adamantly deny him having had prior cholecystectomy, CT in ED noting prior cholecystectomy. He did have temp of 102 last night. Patient tells me taht he had LHC with PCI And stent placement about 2 months ago in [facility] he was started on brilinta and aspirin and didnt like how it made me feel thus he stopped taking the brilinta. He had syncopal episode after taking metoprolol and protonix and thus stopped taking those too about 2 weeks ago. He was also hospitalized at [facility] then. He reports significant weight loss as well. In ED labs showed bilirubin of 2.8 with ast/alt of 269/247 , creatinine of 1.2, WBC of 12.8 with 30 bands and initial lactic acid of 2.8 that increased to 3.6 after [address] chest was done that showed small pleural effusions with bibasilar consolidation, similar to prior and CXR showed opacities likely secondary to pneumonia. He was started on vancomycin and zosyn. His initial troponin was slightly elevated at 0.795. He is being admitted for further evaluation of his severe sepsis, pancreatitis with elevated bilirubin and elevated troponin. Health Status Allergies: Allergic Reactions (Selected) No Known Allergies Current medications: (Selected) Inpatient Medications Ordered Normal Saline 1,000 mL: 125 mL/Hr, IntraVENous Normal Saline Bolus: 500 mL, 500 mL/Hr, IV Piggyback, 1-Time PACLitaxel + Sodium Chloride 0.9% intravenous solution 500 mL: 157 mg, 26.17 mL, 581 mL/Hr, IV Piggyback, 1-Time PACLitaxel + Sodium Chloride 0.9% intravenous solution 500 mL: 157 mg, 26.17 mL, 581 mL/Hr, IV Piggyback, 1-Time Pepcid + Sodium Chloride 0.9% intravenous solution 50 mL: 20 mg, 2 mL, 180 mL/Hr, IV Piggyback, 1-Time Pepcid + Sodium Chloride 0.9% intravenous solution 50 mL: 20 mg, 2 mL, 180 mL/Hr, IV Piggyback, 1-Time Sodium Chloride 0.9% intravenous solution: 250 mL, 50 mL/Hr, IntraVENous, 1-Time Sodium Chloride 0.9% intravenous solution: 250 mL, 50 mL/Hr, IntraVENous, 1-Time dexAMETHasone + Sodium Chloride 0.9% intravenous solution 50 mL: 20 mg, 5 mL, 189 mL/Hr, IV Piggyback, 1-Time dexAMETHasone + Sodium Chloride 0.9% intravenous solution 50 mL: 20 mg, 5 mL, 189 mL/Hr, IV Piggyback, 1-Time diphenhydrAMINE: 12.5 mg, IV Push, 1-Time diphenhydrAMINE: 12.5 mg, IV Push, 1-Time granisetron: 1 mg, IV Push, 1-Time granisetron: 1 mg, IV Push, 1-Time trastuzumab: 614 mL/Hr, IV Piggyback, 1-Time Documented Medications Documented LORazepam: 1 mg, Oral, At Bedtime, 0 Refill(s) aspirin: 81 mg, Oral, Daily, 0 Refill(s) metoprolol succinate: 25 mg, Oral, Daily, 0 Refill(s) multivitamin: 1 Tab, Oral, Daily, 0 Refill(s) pantoprazole: 40 mg, Oral, Daily, 0 Refill(s), Home Medications (5) Active aspirin 81 mg, Oral, Daily LORazepam 1 mg, Oral, At Bedtime metoprolol succinate 25 mg, Oral, Daily multivitamin 1 Tab, Oral, Daily pantoprazole 40 mg, Oral, Daily , Medications (2) Active Scheduled: (1) NaCl 0.9% 500 mL, IV Piggyback, 1-Time Continuous: (1) NaCl 0.9% 1,000 mL 1,000 mL, IntraVENous, 125 mL/Hr PRN: (0) Problem list: Medical Leg neuralgia / SNOMED CT 37998105 / Confirmed Hyperlipidemia / SNOMED CT 29603374 / Confirmed Chest pain with high risk for cardiac etiology / SNOMED CT 51356027 / Confirmed At risk for sleep apnea / IMO [id number] / Confirmed Anxiety disorder / SNOMED CT 538363114 / Confirmed, Active Problems (7) Anxiety disorder At risk for sleep apnea Chest pain with high risk for cardiac etiology Esophagus cancer Hyperlipidemia Leg neuralgia Myocardial infarction Histories Past Medical History: anxiety CAD esopheageal cancer Family History: father with emphysema mom from stroke in her 80's Procedure history: Pacemaker. cardiac stent. heart cath. colonoscopy. Social History no etoh or tobacco abuse. Review of Systems Constitutional: Fever, Weight loss, No chills, No weight gain. Eye: No blurring, No double vision, No visual disturbances. Ear/Nose/Mouth/Throat: No dysphagia, No nasal congestion, No sore throat. Respiratory: Shortness of breath, Cough, No hemoptysis, No wheezing. Cardiovascular: No chest pain, No palpitations, No peripheral edema. Gastrointestinal: Nausea, Vomiting, Constipation, No diarrhea, No abdominal pain, No melena, No rectal bleeding. Genitourinary: No dysuria, No hematuria. Hematology/Lymphatics: No bruising tendency, No bleeding tendency. Musculoskeletal: No joint pain, No muscle pain. Integumentary: No rash, No skin lesion. Neurologic: No confusion, No headache. Psychiatric: No anxiety, No depression. Objective VS/Measurements Vitals Signs (last 24 hrs) Last Charted Minimum Maximum Temp 97.7 (SEP 22 09:45) 97.7 (SEP 22:45) 97.7 (SEP 22:45) Mon HR 82 (SEP 22:) 80 (SEP 22:45) 98 (SEP 22:) Periph HR 96 (SEP 22 09:45) 96 (SEP 22 09:45) 96 (SEP 22 09:45) Resp Rate H 21 (SEP 22:) 15 (SEP 22:45) H 27 (SEP 22:) SBP 94 (SEP 22:) 94 (SEP 22:) 140 (SEP 22:) DBP L 55 (SEP 22:) L 53 (SEP 22:45) 60 (SEP 22:) MAP 67 (SEP 22:) 67 (SEP 22) 86 (PATRICIA 14 13:30) SpO2 94 (SEP 22 15:30) L 89 (SEP 22 10:00) 97 (SEP 22 12:15) General: Alert and oriented, Mild distress. Eye: Pupils are equal, round and reactive to light, Extraocular movements are intact. HENT: Normocephalic, Normal hearing. Neck: Supple, No carotid bruit, No jugular venous distention, right upper port site clean dry and no erythema. Respiratory: Lungs are clear to auscultation, Respirations are non-labored, Breath sounds are equal. Cardiovascular: Normal rate, Regular rhythm, No murmur, No edema. Gastrointestinal: Soft, Non-distended, Normal bowel sounds, No organomegaly, tender to palpation RUQ and epigastric, no rebound tenderness . Musculoskeletal: diffusely decreased muscle mass. . Integumentary: Warm, Dry. Neurologic: Alert, Oriented, No focal deficits. Psychiatric: Cooperative, Appropriate mood & affect, Normal judgment. SEP 22 10:13 138 103 16 / H 120 4.0 28 1.30 \ SEP 22 10:13 \ L 11.3 / H 12.8 189 / L 35.5 \ Results Review Radiology Results (Last 48 hours) [id number] -- 09/22/2020 09:28 CR Chest 1 Vw Portable (09/22/2020 10:37) Result: PORTABLE CHEST 09/22/2020 10:11 AM HISTORY: Cough.COMPARISON: 04/21/2014.FINDINGS: The heart is normal in size . A right-sided chest port andleft-sided pacemaker are present. There are bibasilar opacities. Thereis no pneumothorax . The osseous structures are unremarkable . IMPRESSION: Opacities as above, likely secondary to pneumonia. Follow-up to complete resolution recommended . Images reviewed, interpreted, and dictated by Dr. Cori Bui.Transcribed by Heath Camargo PA-C.I have personally viewed, interpreted and dictated the examination. Ihave read and agree with the above final transcribed report. CT Abdomen Pelvis W (09/22/2020 13:22) Result: CT SCAN OF THE ABDOMEN AND PELVIS WITH CONTRAST 09/22/2020 10:12 AM HISTORY: Abdominal pain, vomiting, history of esophageal cancer.COMPARISON: PET/CT dated August 27, 2020.PROCEDURE: The patient was injected with IV contrast. Axial images wereobtained from the lung bases to the pubic symphysis by computedtomography. This study was performed with techniques to keep radiationdoses as low as reasonably achievable, (ALARA). Individualized dosereduction techniques using automated exposure control or adjustment ofmA and/or kV according to the patient size were employed.FINDINGS: ABDOMEN: The lung bases demonstrate small bilateral pleural effusionswith bibasilar consolidation. Findings appear similar prior. The heartis normal in size . The liver is normal . The patient is status postcholecystectomy. The spleen is unremarkable. No adrenal mass ispresent. The pancreas is normal . The stomach is distended with fluid.There are multiple hypodense left renal lesions measuring between 10 and15 mm. There are parapelvic cysts bilaterally. The aorta is normal incaliber . There is no free fluid or adenopathy . The transverse colonis thickened.PELVIS: The appendix is normal. The urinary bladder is unremarkable. There is no significant free fluid or adenopathy . IMPRESSION: Small pleural effusions with bibasilar consolidation,similar to prior exam. Follow-up to resolution is recommended.Images reviewed, interpreted, and dictated by Dr. Cori Bui.Transcribed by Urmila Corrales PA-C.I have personally viewed, interpreted and dictated the examination. Ihave read and agree with the above final transcribed report. Impression and Plan severe sepsis due to pna - continue vanco and zosyn - follow cultures - bandemia and lactic acidosis level noted pancreatitis - elevated bilirubin noted, pt s/p lap lala - gi consult - npo - iv fluids - monitor closely esophageal cancer - pt of dr seo - chemo last week, on 09/17 nstemi - cardiology consult - trend troponins - check echocardiogram - continue aspirin coronary artery disease - per pt s/p LHC and PCI [address] topete done at [facility] - pt stopped taking brilinta on his own accord shortly after the PCI as it was making him sob - on aspirin 81 mg daily. syncope 2 weeks ago - two weeks ago, was at [facility] for this stay. depression - start on antidepressant last week with dr seo - pt and unsure what medication this was. irregular heart rhythm, possibly afib - with pacemaker - follows with dr topete and dr COSTA in [place] medical record reviewed, discussed with ER provider. Code status: per patient full code. (she goes by Brandee) is decision maker Time spent: 48 min Chantelle Inman Hospitalist Physical Examination VS/Measurements Vitals Signs (last 24 hrs) Last Charted Minimum Maximum Temp 97.7 (SEP 22 09:45) 97.7 (SEP 22 09:45) 97.7 (SEP 22 09:45) Mon HR 82 (SEP 22 15:30) 80 (SEP 22 11:45) 98 (SEP 22 13:30) Periph HR 96 (SEP 22 09:45) 96 (SEP 22 09:45) 96 (SEP 22 09:45) Resp Rate H 21 (SEP 22 15:30) 15 (SEP 22 11:45) H 27 (SEP 22:15) SBP 94 (SEP 22 15:30) 94 (SEP 22 15:15) 140 (SEP 22 13:30) DBP L 55 (SEP 22 15:30) L 53 (SEP 22 11:45) 60 (SEP 22 13:30) MAP 67 (SEP 22 15:30) 67 (SEP 22 15:15) 86 (SEP 22 13:30) SpO2 94 (SEP 22 15:30) L 89 (SEP 22 10:00) 97 (SEP 22 12:15) Review / Management Results review: Labs (Last four charted values) WBC H 12.8 (SEP 22) HB L 11.3 (SEP 22) HCT L 35.5 (SEP 22) Plt 189 (SEP 22) Na 138 (SEP 22) K 4.0 (SEP 22) Cl 103 (SEP 22) CO2 28 (SEP 22) BUN 16 (SEP 22) Cr 1.30 (SEP 22) Glu R H 120 (SEP 22) Ca 9.0 (SEP 22) Lactic C 3.6 (SEP 22) C 2.8 (SEP 22) AST H 269 (SEP 22) ALT H 247 (SEP 22) ALK P H 343 (SEP 22) T Bili H 2.8 (SEP 22) PTN 6.6 (SEP 22) ALB L 3.0 (SEP 22) Lipase H 5762 (SEP 22) Troponin C 0.795 (SEP 22) . documented in this encounter Plan of Treatment Upcoming Encounters Date Type Department Care Team (Late st Contact Info) Description 11/24/2024 2:00 PM EDT Office Visit [facility] [place] [address] [place] [address] Jalen Seo MD [address] [place] [address] documented as of this encounter Visit Diagnoses Not on filedocumented in this encounter Care Teams Powder Worker Relationship Specialty Start Date End Date Kaylene Brooke MD [address] [place] [address] PCP - General General Internal Medicine 01/27/22 Farooq Marcus MD [address] [place] [address] PCP - General Family Medicine 02/27/22 documented as of this encounter
--- OUTSIDE RECORDS SUMMARY | 2024-11-21 21:24 | XMS_ITS | Encounter Summary ---
Author Organization [employer] ([place], [place], [place], [place]) Address [address] [place] [address] Care Team Providers Care Information Security Analyst Name Role Phone Kaylene Brooke MD Primary Care Provider [phone] Farooq Marcus MD Primary Care Provider [phone] Encounter Details Date Type Department Care Team (Late st Contact Info) Description 09/22/2020 Transcribed Document [facility] [place] [facility] [place] [address] ProviderRayray MD [address] [place] [address] Social History Tobacco Use Types Packs/Day Years Used Date Smoking Tobacco: Never Assessed Sex and Gender Information Value Date Recorded Sex Assigned at Not on file Legal Sex Male 5:14 PM CDT Gender Identity Not on file Sexual Orientation Not on file documented as of this encounter Miscellaneous Notes * Cerner Conversion Note - Rayray ProviderMD - 09/22/2020 11:11 PM CDT Meds to Bed Enrollment Entered On: 09/23/2020 7:36 EDT Performed On: 09/22/2020 23:11 EDT by GEOVANNI STILES RPh Meds to Bed Enrollment Patient Enrollment Decision: : No/do not enroll in meds to bed program Reason for Declining Meds to Bed Program: : Prefer to use home pharmacy GEOVANNI STILES RPh - 09/23/2020 7:36 EDT documented in this encounter Plan of Treatment Upcoming Encounters Date Type Department Care Team (Late st Contact Info) Description 11/24/2024 2:00 PM EDT Office Visit [facility] - [place] [address] [place] [address] Jalen Enciso MD [address] [place] [address] documented as of this encounter Visit Diagnoses Not on filedocumented in this encounter Care Teams Information Security Analyst Relationship Specialty Start Date End Date MendyKaylene dunn MD [address] [place] [address] PCP - General General Internal Medicine 01/27/22 Farooq Marcus MD [address] [place] [place] [address] PCP - General Family Medicine 02/27/22 documented as of this encounter
--- OUTSIDE RECORDS SUMMARY | 2024-11-21 21:24 | XMS_ITS | Encounter Summary ---
Author Organization [employer] ([place], [place], [place], [place]) Address [address] [place] [address] Care Team Providers Care Rhic Systems Safety Engineer Name Role Phone Kaylene Brooke MD Primary Care Provider [phone] Farooq Marcus MD Primary Care Provider [phone] Encounter Details Date Type Department Care Team (Late st Contact Info) Description 10/09/2020 Transcribed Document [facility] [place] [facility] [place] [address] ProviderRayray MD [address] [place] [address] Social History Tobacco Use Types Packs/Day Years Used Date Smoking Tobacco: Never Assessed Sex and Gender Information Value Date Recorded Sex Assigned at Not on file Legal Sex Male 5:14 PM CDT Gender Identity Not on file Sexual Orientation Not on file documented as of this encounter Miscellaneous Notes * Cerner Conversion Note - Rayray ProviderMD - 10/09/2020 6:48 PM CDT Education-Wound Care Entered On: 10/10/2020 9:01 EDT Performed On: 10/09/2020 18:48 EDT by Zaida Cortez RN Teaching/Learning Assessment Barriers To Learning : None evident Individuals Taught : Patient Readiness to Learn : Cooperative Readiness to Learn : Explanation Learning Style Preferences Patient : Verbal explanation Zaida Cortez RN - 10/10/2020 9:00 EDT Education Topics, Wound Care Wound Education Grid Nutritional Support : Verbalizes understanding Plan of Care : Verbalizes understanding Positioning : Verbalizes understanding Pressure Relief : Verbalizes understanding Risk Assessment : Verbalizes understanding Skin Assessment : Verbalizes understanding Skin Care : Verbalizes understanding Zaida Cortez, RN - 10/10/2020 9:00 EDT documented in this encounter Plan of Treatment Upcoming Encounters Date Type Department Care Team (Late st Contact Info) Description 11/24/2024 2:00 PM EDT Office Visit [facility] [place] [address] [place] [address] Jalen Enciso MD [address] [place] [address] documented as of this encounter Visit Diagnoses Not on filedocumented in this encounter Care Teams Rhic Systems Safety Engineer Relationship Specialty Start Date End Date Kaylene Brooke MD [address] [place] [address] PCP - General General Internal Medicine 01/27/22 Farooq Marcus MD [address] [place] [address] PCP - General Family Medicine 02/27/22 documented as of this encounter
--- OUTSIDE RECORDS SUMMARY | 2024-11-21 21:24 | XMS_ITS | Encounter Summary ---
Author Organization [employer] ([place], [place], [place], [place]) Address [address] [place] [address] Care Team Providers Care Egg Smeller Name Role Phone Kaylene Brooke MD Primary Care Provider [phone] Farooq Marcus MD Primary Care Provider Encounter Details Date Type Department Care Team (Late st Contact Info) Description 10/09/2020 Transcribed Document [facility] [place] [address] ProviderRayray MD [address] [place] [address] Social History Tobacco Use Types Packs/Day Years Used Date Smoking Tobacco: Never Assessed Sex and Gender Information Value Date Recorded Sex Assigned at Not on file Legal Sex Male 5:14 PM CDT Gender Identity Not on file Sexual Orientation Not on file documented as of this encounter Miscellaneous Notes * Cerner Conversion Note - Rayray ProviderMD - 10/09/2020 6:47 PM CDT WOCN Inpatient Documentation Entered On: 10/11/2020 7:26 EDT Performed On: 10/11/2020 7:25 EDT by Nora Guillen Rn-Enterostomal WOCN Admission Date : Admit Date 10/10/2020 10:[address] : Diagnosis (6) Vomiting Nausea Vomiting, unspecified Encounter for follow-up examination after completed treatment for conditions other than malignant neoplasm Nausea with vomiting, unspecified Nausea with vomiting, unspecified Reason for WOCN Visit : Initial consult Admitting Diagnosis ST : Reason for Admission per HARVINDER Willams WOCN Assessment Summary : Documented healing stage 2 PI POA to coccyx with documented silicone sacral border dressing in place, which is appropriate per guidelines. PIPP recommendations in place. Patient on WAI surface. Please see orders section for additional recommendations. If alteration in skin integrity observed or change in wound bed presentation noted please contact [facility] department. Nora Guillen, Rn-Enterostomal - 10/11/2020 7:25 EDT Electronically signed by [facility] Conversion Nurse Staff Industrial Cerner at 06/29/2022 2:41 PM CDT documented in this encounter Plan of Treatment Upcoming Encounters Date Type Department Care Team (Late st Contact Info) Description 11/24/2024 2:00 PM EDT Office Visit [facility] - [place] [place] [address] Jalen Enciso MD [address] [facility] [address] [place] [address] documented as of this encounter Visit Diagnoses Not on filedocumented in this encounter Care Teams Egg Smeller Relationship Specialty Start Date End Date MendyKaylene MD [address] [place] [address] PCP - General General Internal Medicine 01/27/22 Farooq Marcus MD [address] [place] [address] PCP - General Family Medicine 02/27/22 documented as of this encounter
--- OUTSIDE RECORDS SUMMARY | 2024-11-21 21:24 | XMS_ITS | Encounter Summary ---
Author Organization [employer] ([place], [place], [place], [place]) Address [address] [place] [address] Care Team Providers Care Bus Greaser Name Role Phone Kaylene Brooke MD Primary Care Provider [phone] Farooq Marcus MD Primary Care Provider [phone] Encounter Details Date Type Department Care Team (Late st Contact Info) Description 09/22/2020 Transcribed Document [facility] [place] [address] ProviderRayray MD [address] [place] [address] Social History Tobacco Use Types Packs/Day Years Used Date Smoking Tobacco: Never Assessed Sex and Gender Information Value Date Recorded Sex Assigned at Not on file Legal Sex Male 5:14 PM CDT Gender Identity Not on file Sexual Orientation Not on file documented as of this encounter Miscellaneous Notes * Cerner Conversion Note - Rayray ProviderMD - 09/22/2020 10:56 PM CDT ED Discharge Entered On: 09/22/2020 22:57 EDT Performed On: 09/22/2020 22:56 EDT by Nelsy Norton RN Discharge Process Patient Disposition : Admit/Observe Personal Belongings With Patient : Yes IV Discontinued : No Nursing Documentation Completed : Yes Nelsy Norton RN - 09/22/2020 22:56 EDT Admission, ED Nurse Report Accepted By : RN for 412 Nurse Report Acceptance Time : 09/22/2020 22:57 EDT `Nurse Report (Hand Off) : Called Accompanied By, Discharge : Spouse Mode Of Departure : Nelsy Chou, MERA - 09/22/2020 22:56 EDT Electronically signed by Malina Jacob Conversion Construction Or Leak Gang Laborer Cerner at 06/29/2022 2:25 PM CDT documented in this encounter Plan of Treatment Upcoming Encounters Date Type Department Care Team (Late st Contact Info) Description 11/24/2024 2:00 PM EDT Office Visit [facility] [address] [facility] [address] [place] [address] Jalen Enciso MD [address] [place] [address] documented as of this encounter Visit Diagnoses Not on filedocumented in this encounter Care Teams Bus Greaser Relationship Specialty Start Date End Date Kaylene Brooke MD [address] [place] [address] PCP - General General Internal Medicine 01/27/22 Farooq Marcus MD [address] [place] [address] PCP - General Family Medicine 02/27/22 documented as of this encounter
--- OUTSIDE RECORDS SUMMARY | 2024-11-21 21:24 | XMS_ITS | Encounter Summary ---
Author Organization [employer] ([place], [place], [place], [place]) Address [address] [place] [address] Care Team Providers Care Field Research Associate Name Role Phone Kaylene Brooke MD Primary Care Provider [phone] Farooq Marcus MD Primary Care Provider [phone] Encounter Details Date Type Department Care Team (Late st Contact Info) Description 09/22/2020 Transcribed Document [facility] [place] [facility] [place] [address] ProviderRayray MD [address] [place], [place] [id number] Social History Tobacco Use Types Packs/Day Years Used Date Smoking Tobacco: Never Assessed Sex and Gender Information Value Date Recorded Sex Assigned at Not on file Legal Sex Male 5:14 PM CDT Gender Identity Not on file Sexual Orientation Not on file documented as of this encounter Miscellaneous Notes * Cerner Conversion Note - Historical ProviderMD - 09/22/2020 1:21 PM CDT CR Chest 1 Vw Portable Ordered: 09/22/2020 Modified Reason for Exam: Cough 09/22/2020 12:00 09/22/2020 13:21 (BRIGID PARKINSON PA-C) Reviewed by Provider, No further action required x1 documented in this encounter Plan of Treatment Upcoming Encounters Date Type Department Care Team (Late st Contact Info) Description 11/24/2024 2:00 PM EDT Office Visit [facility] [facility] - [address] [place] [address] Jalen Enciso MD [address] [place] [address] documented as of this encounter Visit Diagnoses Not on filedocumented in this encounter Care Teams Field Research Associate Relationship Specialty Start Date End Date Kyalene Brooke MD [address] [place] [address] PCP - General General Internal Medicine 01/27/22 Farooq Marcus MD [address] [place] [place] [address] PCP - General Family Medicine 02/27/22 documented as of this encounter
--- OUTSIDE RECORDS SUMMARY | 2024-11-21 21:24 | XMS_ITS | Encounter Summary ---
Author Organization [employer] ([place], [place], [place], [place]) Address [address] [place] [address] Care Team Providers Care Construction Supervisor/Carpenter Name Role Phone Kaylene Brooke MD Primary Care Provider [phone] Farooq Marcus MD Primary Care Provider [phone] Encounter Details Date Type Department Care Team (Late st Contact Info) Description 10/13/2020 Transcribed Document [facility] [place] Medicine [address] [place] [address] ProviderRayray MD [address] [place] [address] Social History Tobacco Use Types Packs/Day Years Used Date Smoking Tobacco: Never Assessed Sex and Gender Information Value Date Recorded Sex Assigned at Not on file Legal Sex Male 5:14 PM CDT Gender Identity Not on file Sexual Orientation Not on file documented as of this encounter Miscellaneous Notes * Cerner Conversion Note - Rayray San MD - 10/13/2020 7:14 AM CDT Patient: DOYLE DEL ANGEL Age: 84 years Sex: Male : 1935 Associated Diagnoses: None Author: JALEN ENCISO MD-ONC Attachments: None Subjective Chief complaint Chief complaint Still without recurrent nausea. Doing better. Health Status Allergies Allergies (1) Active Reaction oxyCODONE None Documented Current medications Medications (20) Active Scheduled: (11) aspirin 81 mg chew tab 81 mg 1 Tab, Oral, Daily clopidogrel 75 mg tab 75 mg 1 Tab, Oral, Daily docusate sodium 100 mg cap 100 mg 1 Cap, Oral, BID erythromycin 0.5% ophth oint 3.5 g 1 Application, Eye Left, BID LORazepam 1 mg tab 1 mg 1 Tab, Oral, TID megestrol 400 mg/10 mL liq 800 mg 20 mL, Oral, Daily metoclopramide 10 mg tab 10 mg 1 Tab, Oral, AC and at Bedtime multiple vitamin (Thera) tab 1 Tab, Oral, Daily pantoprazole EC 40 mg tab 40 mg 1 Tab, Oral, Daily sucralfate 1 g/10 mL liq 1 Gram 10 mL, Oral, TIDAC venlafaxine XR 150 mg cap 150 mg 1 Cap, Oral, Daily Continuous: (1) lactated ringers 1,000 mL 1,000 mL, IntraVENous, 20 mL/Hr PRN: (8) acetaminophen 325 mg tab 650 mg 2 Tab, Oral, Q4H albuterol-ipratropium inh 3 mL 3 mL, Nebulized Inhalation, Q6H bisacodyl EC 5 mg tab 5 mg 1 Tab, Oral, Daily hydrALAZINE 20 mg/1 mL inj 10 mg 0.5 mL, IV Push, Q6H lidocaine 1% *PF* inj 30 mL 0.5 mL, IntraDermal, 1-Time melatonin 3 mg tab 3 mg 1 Tab, Oral, At Bedtime morphine 2 mg/1 ml inj 2 mg 1 mL, IV Push, Q2H promethazine 25 mg/1 mL inj 6.25 mg 0.25 mL, IntraVENous, Q6H Objective General Alert and oriented No acute distress Eye Pupils are equal, round and reactive to light HENT Normocephalic Neck Supple Respiratory Lungs are clear to auscultation Respirations are non-labored Cardiovascular Normal rate Gastrointestinal Soft Non-tender Impression and Plan Assessment and Plan Diagnosis GE junction cancer. Course Progressing as expected Orders Home anytime, I will see in follow up as outpatient. documented in this encounter Plan of Treatment Upcoming Encounters Date Type Department Care Team (Late st Contact Info) Description 11/24/2024 2:00 PM EDT Office Visit [place] [facility] - [address] [facility] [address] [facility] [address] [place] [address] Jalen Enciso MD [address] [facility] [address] [place] [address] documented as of this encounter Visit Diagnoses Not on filedocumented in this encounter Care Teams Construction Supervisor/Carpenter Relationship Specialty Start Date End Date Kaylene Brooke MD [address] [place] [address] PCP - General General Internal Medicine 01/27/22 Farooq Marcus MD [address] [place] [address] PCP - General Family Medicine 02/27/22 documented as of this encounter
--- OUTSIDE RECORDS SUMMARY | 2024-11-21 21:24 | XMS_ITS | Encounter Summary ---
Author Organization [employer] ([place], [place], [place], [place]) Address [address] [place] [address] Care Team Providers Care Hose Stripper Name Role Phone Kaylene Brooke MD Primary Care Provider [phone] Farooq Marcus MD Primary Care Provider [phone] Encounter Details Date Type Department Care Team (Late Contact Info) Description 10/09/2020 Transcribed Document [facility] Family Medicine [facility] [place] [address] ProviderRayray MD [address] [place], [place] [address] Social History Tobacco Use Types Packs/Day Years Used Date Smoking Tobacco: Never Assessed Sex and Gender Information Value Date Recorded Sex Assigned at Not on file Legal Sex Male 5:14 PM CDT Gender Identity Not on file Sexual Orientation Not on file documented as of this encounter Miscellaneous Notes * Cerner Conversion Note - Historical MD Jaswinder - 10/09/2020 6:26 PM CDT Provider Notification Entered On: 10/09/2020 18:36 EDT Performed On: 10/09/2020 18:26 EDT by Zaida Cortez RN Provider Notification Provider Notified of Concerns/Results : Other: risk for sleep apnea Provider Not Notified Reason : Provider already reviewed abnormal results Zaida Cortez RN - 10/09/2020 18:36 EDT Electronically signed by Nidia [facility] Conversion Professional Nursing Tutor Cerner at 06/29/2022 2:41 PM CDT documented in this encounter Plan of Treatment Upcoming Encounters Date Type Department Care Team (Late st Contact Info) Description 11/24/2024 2:00 PM EDT Office Visit [place] [facility] - [address] [place] [address] Jalen Enciso MD [address] [place] [address] documented as of this encounter Visit Diagnoses Not on filedocumented in this encounter Care Teams Hose Stripper Relationship Specialty Start Date End Date Kaylene Brooke MD [address] [place] [address] PCP - General General Internal Medicine 01/27/22 Farooq Marcus MD [address] [place] [address] PCP - General Family Medicine 02/27/22 documented as of this encounter
--- OUTSIDE RECORDS SUMMARY | 2024-11-21 21:24 | XMS_ITS | Encounter Summary ---
Author Organization [employer] ([place], [place], [place], [place]) Address [address] [place] [address] Care Team Providers Care Manager Gas Name Role Phone Kaylene Brooke MD Primary Care Provider [phone] Farooq Marcus MD Primary Care Provider [phone] Encounter Details Date Type Department Care Team (Late st Contact Info) Description 09/22/2020 Transcribed Document [facility] Family [place] [facility] [address] ProviderRayray MD [address] [place] [address] Social History Tobacco Use Types Packs/Day Years Used Date Smoking Tobacco: Never Assessed Sex and Gender Information Value Date Recorded Sex Assigned at Not on file Legal Sex Male 5:14 PM CDT Gender Identity Not on file Sexual Orientation Not on file documented as of this encounter Miscellaneous Notes * Cerner Conversion Note - Rayray ProviderMD - 09/22/2020 4:52 PM CDT Consult Phone Call Documentation Entered On: 09/22/2020 16:53 EDT Performed On: 09/22/2020 16:52 EDT by Snehal Mathews Emergency Room Typing Element Machine Operator Phone Call for Consults Consult Phone Call/Page Attempt : First call Consult Reason : esophageal cancer patient now n/v Provider Service Notified Name : Other: Oncology Date and Time Call Returned : 09/22/2020 16:52 EDT Consult, Additional Information : Spoke with Gely Monk and informed her of consult. Snehal Mathews Emergency Room Typing Element Machine Operator - 09/22/2020 16:52 EDT documented in this encounter Plan of Treatment Upcoming Encounters Date Type Department Care Team (Late st Contact Info) Description 11/24/2024 2:00 PM EDT Office Visit [place] [facility] - [address] [place] [address] Jalen Enciso MD [address] [place] [address] [place] [address] documented as of this encounter Visit Diagnoses Not on filedocumented in this encounter Care Teams Manager Gas Relationship Specialty Start Date End Date MendyKaylene dunn MD [address] [place] [address] PCP - General General Internal Medicine 01/27/22 Farooq Marcus MD [address] [facility] [place] [address] PCP - General Family Medicine 02/27/22 documented as of this encounter
--- OUTSIDE RECORDS SUMMARY | 2024-11-21 21:24 | XMS_ITS | Encounter Summary ---
Author Organization [employer] ([place], [place], [place], [place]) Address [address] [place] [address] Care Team Providers Care Bench Molder Apprentice Name Role Phone Kaylene Brooke MD Primary Care Provider [phone] Farooq Marcus MD Primary Care Provider [phone] Encounter Details Date Type Department Care Team (Late st Contact Info) Description 10/10/2020 Transcribed Document [facility] [place] [facility] [place] [address] ProviderRayray MD [address] [place] [address] Social History Tobacco Use Types Packs/Day Years Used Date Smoking Tobacco: Never Assessed Sex and Gender Information Value Date Recorded Sex Assigned at Not on file Legal Sex Male 5:14 PM CDT Gender Identity Not on file Sexual Orientation Not on file documented as of this encounter Miscellaneous Notes * Cerner Conversion Note - Rayray ProviderMD - 10/10/2020 10:13 AM CDT Consult Phone Call Documentation Entered On: 10/10/2020 10:14 EDT Performed On: 10/10/2020 10:13 EDT by Hillary Chamberlain RN Phone Call for Consults Consult Phone Call/Page Attempt : First call Consult Reason : goals of care, esophageal cancer Physician Requesting Consult : SASHA PEREZ PA-C Provider Team Notified Name : Palliative medicine Physician Covering for Consult : AMBERLY BARBOSA APRN Date and Time Call Returned : 10/10/2020 8:52 EDT Physician Returning Call : AMBERLY BARBOSA APRN [place], Hillary M, RN - 10/10/2020 10:13 EDT Electronically signed by Nidia [facility] Conversion Furniture Manager Cerner at 06/29/2022 2:21 PM CDT documented in this encounter Plan of Treatment Upcoming Encounters Date Type Department Care Team (Late st Contact Info) Description 11/24/2024 2:00 PM EDT Office Visit [place] [facility] - [facility] [address] [place] [address] Jalen Enciso MD [address] [place] [address] [place] [address] documented as of this encounter Visit Diagnoses Not on filedocumented in this encounter Care Teams Bench Molder Apprentice Relationship Specialty Start Date End Date Kaylene Brooke MD [address] [place] [address] PCP - General General Internal Medicine 01/27/22 Farooq Marcus MD [address] [place] [address] PCP - General Family Medicine 02/27/22 documented as of this encounter
--- OUTSIDE RECORDS SUMMARY | 2024-11-21 21:24 | XMS_ITS | Encounter Summary ---
Author Organization [employer] ([place], [place], [place], [place]) Address [address] [place] [address] Care Team Providers Care Work Measurement Engineer Name Role Phone Kaylene Brooke MD Primary Care Provider [phone] Farooq Marcus MD Primary Care Provider [phone] Encounter Details Date Type Department Care Team (Late st Contact Info) Description 09/22/2020 Transcribed Document [facility] [place] [address] [place] [address] ProviderRayray MD [address] [place] [address] Social History Tobacco Use Types Packs/Day Years Used Date Smoking Tobacco: Never Assessed Sex and Gender Information Value Date Recorded Sex Assigned at Not on file Legal Sex Male 5:14 PM CDT Gender Identity Not on file Sexual Orientation Not on file documented as of this encounter Miscellaneous Notes * Cerner Conversion Note - Rayray ProviderMD - 09/22/2020 9:28 AM CDT ED Assessment Entered On: 09/22/2020 11:11 EDT Performed On: 09/22/2020 10:30 EDT by CELIA ALBERT RN ED Quick Look Assessment Level of Consciousness : Alert, Awake Affect/Behavior : Appropriate, Calm, Cooperative Orientation : Oriented x 4 Skin Temperature : Warm Skin Description : Normal for ethnicity CELIA ALBERT RN - 09/22/2020 11:06 EDT ED General-Functional Assess Information Obtained From : Patient Communication Barrier : None Primary Language : Urugu[place] Any Spiritual/Cultural Needs or Requests : No Currently in Unsafe Situation : No CELIA ALBERT RN - 09/22/2020 11:06 EDT ED Psychosocial Assessment Affect/Behavior : Appropriate, Calm, Cooperative CELIA ALBERT RN - 09/22/2020 11:06 EDT Social Habits Smoking Status : Never (less than 100 in lifetime; none in last 30 days) Smokeless Tobacco Status : Never Desires Tobacco Cessation Calc : 0 CELIA ALBERT RN - 09/22/2020 11:06 EDT Social History (As Of: 09/22/2020 11:11:21 EDT) Tobacco: Smoking Status Never smoker. (Last Updated: 04/22/2014 15:35:05 EST by DARRELL REED, Rn) Alcohol: Alcohol Use History No. Use in Last 12 Months: No. (Last Updated: 04/22/2014 15:34:53 EST by DARRELL REED, Rn) Substance Abuse: Drug Use Hx: No. (Last Updated: 09/08/2020 08:39:23 EDT by JUVE GILBERT Rn-Clinical Coordinator I) EENT Assessment EENT Assessment WDL : CELIA SUN RN - 09/22/2020 11:06 EDT Cardiovascular ASMT, ED Cardiovascular Assessment WDL : WDL with exceptions Cardiovascular Symptoms : Dizziness at rest, Dyspnea at rest, Nausea at rest Nail Bed Color : Guinda Chest Pain : No CELIA ALBERT RN - 09/22/2020 11:06 EDT Respiratory Respiratory Assessment WDL : WDTre with exceptions Cough : None Respiratory Pattern Description : Regular Sputum Amount : None CELIA ALBERT RN - 09/22/2020 11:06 EDT Oxygen Therapy Oxygen Therapy Mode : Nasal cannula Oxygen Flow Rate Titrated : 2 Liter/Min O2 Saturation Monitoring Frequency : Continuous Oxygen Saturation (%) : 93 % (LOW) CELIA ALBERT RN - 09/22/2020 11:06 EDT Gastrointestinal ED Gastrointestinal Assessment WDL : TERRENCE with exceptions Gastrointestinal Symptoms : Nausea CELIA ALBERT RN - 09/22/2020 11:06 EDT Genitourinary Assessment, ED Genitourinary Assessment WDL : CELIA SUN RN - 09/22/2020 11:06 EDT Musculoskeletal Musculoskeletal Assessment WDL : WDTre with exceptions Musculoskeletal Assessment Comment : generalized weakness BETY CELIAMERA BECKWITH - 09/22/2020 11:06 EDT Integumentary Assessment Skin Description : Normal for ethnicity Skin Temperature : Warm CELIA ALBERTMERA - 09/22/2020 11:06 EDT Neurologic ASMT, ED Neurological Symptoms : Dizziness, Weakness Level of Consciousness : Alert, Awake Affect/Behavior : Appropriate, Calm, Cooperative Speech : Clear Orientation : Oriented x 4 Pupil Description, Left : Regular Pupil Reaction, Left : Brisk Pupil Description, Right : Regular Pupil Reaction, Right : Brisk Neurological Assessment Comment : gets chemo, probably causing chills, fatigue BETY CELIAMERA BECKWITH - 09/22/2020 11:06 EDT Pain Assessment Pain Assessment : Initial assessment Pain Scale Used : 0-10 Scale CELIA ALBERT RN - 09/22/2020 11:06 EDT Pain Scale Intensity : 4 CELIA ALBERT RN - 09/22/2020 11:06 EDT Image 4 - Images currently included in the form version of this document have not been included in the text rendition version of the form. documented in this encounter Plan of Treatment Upcoming Encounters Date Type Department Care Team (Late st Contact Info) Description 11/24/2024 2:00 PM EDT Office Visit [place] [facility] - [address] [facility] [address] [place] [address] Jalen Enciso MD [address] [facility] [address] [place] [address] documented as of this encounter Visit Diagnoses Not on filedocumented in this encounter Care Teams Work Measurement Engineer Relationship Specialty Start Date End Date Kaylene Brooke MD [address] [place] [address] PCP - General General Internal Medicine 01/27/22 Farooq Marcus MD [address] [place] [place] [address] PCP - General Family Medicine 02/27/22 documented as of this encounter
--- OUTSIDE RECORDS SUMMARY | 2024-11-21 21:24 | XMS_ITS | Encounter Summary ---
Author Organization [employer] ([place], [place], [place], [place]) Address [address] [place] [address] Care Team Providers Care Weaving Inspector Name Role Phone Kaylene Brooke MD Primary Care Provider [phone] Farooq Marcus MD Primary Care Provider [phone] Encounter Details Date Type Department Care Team (Late st Contact Info) Description 10/09/2020 Transcribed Document [facility] [place] [facility] [place] [address] ProviderRayray MD [address] [place] [address] Social History Tobacco Use Types Packs/Day Years Used Date Smoking Tobacco: Never Assessed Sex and Gender Information Value Date Recorded Sex Assigned at Not on file Legal Sex Male 5:14 PM CDT Gender Identity Not on file Sexual Orientation Not on file documented as of this encounter Miscellaneous Notes * Cerner Conversion Note - Historical ProviderMD - 10/09/2020 4:33 PM CDT Evaluation, Physical Therapy Entered On: 10/11/2020 15:45 EDT Performed On: 10/11/2020 15:17 EDT by CINDY DEL RIO, CHATO General Information, PT Visit Type, PT : Initial evaluation Patient Orders : Order Date Order Ordering 10/09/2020 16:34 PT Evaluation and Treatment Ordered By: SASHA PEREZ PA-C Active Diagnoses : 10/09/2020 12:00 Encounter for follow-up examination after completed treatment for conditions other than malignant neoplasm 10/09/2020 12:00 Nausea 10/09/2020 12:00 Vomiting 10/09/2020 12:00 Vomiting, unspecified Therapy Diagnosis, PT : Decreased mobility due to N/V, NSTEMI, pancreatitis Onset of Problem, PT : 10/10/2020 EDT Admission Date : 10/10/2020 10:58 Personal Devices : Personal Devices No Devices Recorded Assistive Devices : Assistive Devices No Devices Recorded Precautions in Place : Fall prevention measures General Information Comment, PT : Pt admitted due to N/V for several days and found to have NSTEMI and pancreatitis. He has a history of esophageal cancer and just finished radiation and chemo 3 weeks ago. He also has a history of anxiety, chest pain, GA, 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 CINDY DEL RIO, PT - 10/11/2020 15:32 EDT General Status Patient Received Status : Supine in bed Treatment Start Time : 10/11/2020 15:02 EDT Patient Left Status : Supine in bed, RN/PCT informed, All needs met and within reach Treatment End Time : 10/11/2020 15:17 EDT Treatment Time : 15 Minute(s) Actual Treatment Time : 15 Minute(s) CINDY DEL RIO, PT - 10/11/2020 15:32 EDT History and Environment Living Situation, Therapy : Home Patient Lives With : Spouse Persons Assisting Patient at Home : Spouse Professional Skilled Services : None Persons Providing Information : Patient Home Equipment Therapy, PT : Walker Walker : Walker, front wheel Walker Comment : Just began using in the last two weeks due to feeling weak. Stairs : Yes Stair Location(s) : Inside, Outside Inside Stairs, Number of Steps : 2 Outside Stairs, Number of Steps : 13 Railing Inside : No Railing Outside : Yes Outside Railing Position : Bilateral CINDY DEL RIO, PT - 10/11/2020 15:32 EDT Prior Level of Function PT GRID Prior LOF Ambulation, Household : Independent Prior LOF Ambulation, Community : Independent Prior LOF Bed Mobility : Independent Prior LOF Toileting : Independent Prior LOF Transfer : Independent CINDY DEL RIO, PT - 10/11/2020 15:32 EDT Prior LOF Assist with ADL Comment : Pt reports he was completely ind until about two weeks ago when he began to feel weak. He has been using a Rwx since then. CINDY DEL RIO, PT - 10/11/2020 15:32 EDT Upper Extremity Upper Extremity Dominance : Right Right UE Active ROM : WFL Right UE Strength : WFL Left UE Active ROM : WFL Left UE Strength : WFL CINDY DEL RIO, PT - 10/11/2020 15:32 EDT Lower Extremity RLE Active ROM : WFL Right LE Strength : WFL LLE Active ROM : WFL Left LE Strength : WFL CINDY DEL RIO, PT - 10/11/2020 15:32 EDT Functional Mobility Mobility Grid Supine to Sit : Rehab Modified independence Sit to Stand : Supervision/set-up Stand to Sit : Supervision/set-up CINDY DEL RIO, PT - 10/11/2020 15:32 EDT Supine to Sit Device : Rails Sit to Stand Device : Belt, gait CINDY DEL RIO, PT - 10/11/2020 15:32 EDT Gait Training/Assessment, PT Weight Bearing Status Maintained : Yes Weight Bearing Status : Full Gait Assistance Level : Assist, minimal Walking Distance : 40' within the room Ambulatory Devices : Gait belt Gait Deviations : Yes Gait Training Comment : Pt amb several laps within the room. He is nervous about going out in the hallway due to being immunocompromised. During the last 10 feet of amb, pt said, Here, let me hold your hand and was bit unsteady, bumping into the linen bin and doorfacing. CINDY DEL RIO, PT - 10/11/2020 15:32 EDT Activity Tolerance, PT Activity Comment : Good for eval purposes. Pt has a K-N95 mask hanging from his IV pole that he brought from home. He asked if he is allowed to amb in the richardson with that and was assured that he was, and that all pt's have to wear a mask in the hallway. Amb 40' in room. CINDY DEL RIO, PT - 10/11/2020 15:32 EDT Cognition Assessment, PT Orientation : Oriented x 4 Safety/Judgment Comment : Good Follows Basic Command Assessment : Yes CINDY DEL RIO PT - 10/11/2020 15:32 EDT Edu Topics Physical Therapy Education Grid Balance Training : Needs further teaching Bed Mobility Training : Needs further teaching Gait Training : Needs further teaching Role of Physical Therapy : Verbalizes understanding Stair Training : Needs further teaching Therapeutic Exercises : Needs further teaching Transfer Training : Needs further teaching CINDY DEL RIO, PT - 10/11/2020 15:32 EDT Indication Assesessment, PT Physical Therapy Indicated : Yes PT Problem List : Impaired, bed mobility, Impaired, endurance tolerance, Impaired, gait, Impaired, stair mobility, Impaired, transfers Potential Barriers To Therapy : None evident Rehabilitation Potential : Good CINDY DEL RIO, PT - 10/11/2020 15:32 EDT Plan of Care, PT PT Tx Plan/Goals Established w Patient : Yes PT Frequency Rehab : Five days per week PT Duration Rehab : Fourteen days PT Treatments Planned : Balance training, Bed mobility training, Gait training, Therapeutic exercises, Transfer training CINDY DEL RIO, PT - 10/11/2020 15:32 EDT Short Term Goals Mobility/Bed Mobility STG PT Grid Goal #1 Activity : Sit to stand Assist : Independent, modified Equipment : Walker, front wheel Date to Meet : 10/18/2020 EDT Goal Status : Initial goal CINDY DEL RIO, PT - 10/11/2020 15:32 EDT Ambulation STG Grid Goal #1 Device : Walker, front wheel Distance : 150' Assist : Supervision or set-up Date to Meet : 10/18/2020 EDT Goal Status : Intial Goal CINDY DEL RIO, PT - 10/11/2020 15:32 EDT Cement And Concrete Plant Worker Goals Ambulation LTG Grid Goal #1 Device : None Distance : 200' Assist : Supervision or set-up Date to Meet : 10/25/2020 EDT Goal Status : Intial Goal CINDY DEL RIO, PT - 10/11/2020 15:32 EDT Treatment Note Subjective Comment : Pt is very appreciative of PT coming. He is worried about amb in the hallway without a mask and is assured he can wear his K-N95 and that all patients should be wearing masks as well. He said, I've been getting to the bathroom when my is here. She follows me like a leech . His provides supervision for his amb. Assessment : Good effort to do as much for himself as possible but did become unsteady with increased gait distance. May do well to use a Rwx at first for greater distances and then see if he can wean off the Rwx. Plan for Treatment : Cont PTx CINDY DEL RIO, PT - 10/11/2020 15:32 EDT Pain Assessment Pain Scaled Used : 0-10 Pain scale Pain Score During-Intervention : 0 CINDY DEL RIO, PT - 10/11/2020 15:32 EDT Image 1 - Images currently included in the form version of this document have not been included in the text rendition version of the form. Anticipated Discharge Needs, OT/PT Anticipated Discharge to : Home, with home health (Comment: S1 [CINDY DEL RIO, PT - 10/11/2020 15:32 EDT] ) CINDY DEL RIO, PT - 10/11/2020 15:32 EDT Ralls PT Charges PT Eval Low Complexity : 1 CINDY DEL RIO, PT - 10/11/2020 15:32 EDT Electronically signed by [facility] Conversion Astronaut Mission Specialist Cerner at 06/29/2022 2:37 PM CDT documented in this encounter Plan of Treatment Upcoming Encounters Date Type Department Care Team (Late st Contact Info) Description 11/24/2024 2:00 PM EDT Office Visit [facility] - [address] [facility] [address] [place] [address] Jalen Enciso MD [address] [facility] [address] [place] [address] documented as of this encounter Visit Diagnoses Not on filedocumented in this encounter Care Teams Weaving Inspector Relationship Specialty Start Date End Date Kaylene Brooke MD [address] [place] [address] PCP - General General Internal Medicine 01/27/22 Farooq Marcus MD [address] [place] [address] PCP - General Family Medicine 02/27/22 documented as of this encounter
--- OUTSIDE RECORDS SUMMARY | 2024-11-21 21:24 | XMS_ITS | Encounter Summary ---
Author Organization [employer] ([place], [place], [place], [place]) Address [address] [place] [address] Care Team Providers Care Web Ui Designer Name Role Phone Kaylene Brooke MD Primary Care Provider [phone] Farooq Marcus MD Primary Care Provider Encounter Details Date Type Department Care Team (Late st Contact Info) Description 10/09/2020 Transcribed Document [facility] [place] [address] [place] [address] ProviderRayray MD [address] [place] [address] Social History Tobacco Use Types Packs/Day Years Used Date Smoking Tobacco: Never Assessed Sex and Gender Information Value Date Recorded Sex Assigned at Not on file Legal Sex Male 5:14 PM CDT Gender Identity Not on file Sexual Orientation Not on file documented as of this encounter Miscellaneous Notes * Cerner Conversion Note - Rayray ProviderMD - 10/09/2020 12:19 PM CDT [place] Suicide Severity Rating Scale (C-SSRS) Entered On: 10/09/2020 14:00 EDT Performed On: 10/09/2020 13:56 EDT by PRISCILLA JUAN RN [place] Suicide Severity Rating Scale (C-SSRS) CSSRS Past Month Wish to be : No CSSRS Past Month Suicidal Thoughts : No CSSRS Lifetime Suicide Behavior : No Suicide Severity Rating Score : 0 Suicide Severity Rating : No Additional Care Required at this time PRISCILLA JUAN RN - 10/09/2020 13:56 EDT documented in this encounter Plan of Treatment Upcoming Encounters Date Type Department Care Team (Late st Contact Info) Description 11/24/2024 2:00 PM EDT Office Visit [facility] - [place] [place] [address] Jalen Enciso MD [address] [place] [address] documented as of this encounter Visit Diagnoses Not on filedocumented in this encounter Care Teams Web Ui Designer Relationship Specialty Start Date End Date MendyKaylene dunn MD [address] [place] [address] PCP - General General Internal Medicine 01/27/22 Farooq Marcus MD [address] [place] [address] PCP - General Family Medicine 02/27/22 documented as of this encounter
--- OUTSIDE RECORDS SUMMARY | 2024-11-21 21:24 | XMS_ITS | Encounter Summary ---
Author Organization [employer] ([place], [place], [place], [place]) Address [address] [place] [address] Care Team Providers Care Roller Skates Assembler Name Role Phone Kalyene Brooke MD Primary Care Provider [phone] Farooq Marcus MD Primary Care Provider [phone] Encounter Details Date Type Department Care Team (Late st Contact Info) Description 10/12/2020 Transcribed Document [facility] [place] Family Medicine Count [facility] [place] [address] ProviderRayray MD [address] [place] [address] Social History Tobacco Use Types Packs/Day Years Used Date Smoking Tobacco: Never Assessed Sex and Gender Information Value Date Recorded Sex Assigned at Not on file Legal Sex Male 5:14 PM CDT Gender Identity Not on file Sexual Orientation Not on file documented as of this encounter Miscellaneous Notes * Cerner Conversion Note - Rayray ProviderMD - 10/12/2020 2:50 PM CDT Patient: DOYLE DEL ANGEL Age: 84 Years Sex: Male : 1935 Attending Physician:Meseret Perez Referring Physician: Dede BLANTON Reason for Consult: palliative needs/GOC Goals of Care: ongoing Residence Prior to Admission: home with Family Contact Information/POA/HCS: Dirk Del Angel HCS on Code Status: FULL code Living Will: on chart Subjective sitting up in bed, eating lunch. denies complaints when asked. Had EGD today which showed hiatal hernia and gastric erythema per notes. Objective Vitals & Measurements T: 36.3 ??C TMIN: 36.3 ??C TMAX: 37.1 ??C HR: 69(Monitored) RR: 18 BP: 128/69 SpO2: 95% Physical Exam GENERAL: chronically ill appearing HEENT: NC/AT, temporal wasting, EOMI, sclera anicteric, O/P MMM NECK: supple, no JVD LUNGS: diminished bases, unlabored, no accessory muscle use CV: S1 S2, no m/r/g ABDOMEN: +BS, ND, NT and soft EXTREMITIES: +DP and radial pulses SKIN: warm, no mottling NEURO:awake, alert, oriented, follows commands, makes needs known and answering questions PSYCH: calm ESAS: 0-10 Scale Pain- denies Dyspnea-denies Nausea-denies Insomnia- Constipation- Anxiety- denies Agitation- Depression- + Fatigue- + Well-being- Appetite- improved Drowsy- Intake & Output Totals Last 24 Hours (7a-7a) Intake (8 Events) Medications (50 mL) Oral Intake (600 mL) Output (1 Events) Urine Voided (Volume) (300 mL) Input Total: 650 mL Output Total: 300 mL Balance: 350 mL Assessment-Diagnosis 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 Anxiety - on Lorazepam, denies anxiety today Plan of Care Recommendations PC will continue to follow. >50% of time spent in patient evaluation, assessment, discussion, goals of care: Allergies oxyCODONE Social History Alcohol Alcohol Use History No. Use in Last 12 Months: No. Substance Abuse Drug Use Hx: No. Tobacco Smoking Status Never smoker. Medications Inpatient aspirin, 81 mg= 1 Tab, Oral, Daily Carafate, 1 Gram= 10 mL, Oral, TIDAC clopidogrel, 75 mg= 1 Tab, Oral, Daily docusate sodium, 100 mg= 1 Cap, Oral, BID Dulcolax Laxative, 5 mg= 1 Tab, Oral, Daily, PRN DuoNeb 0.5 mg-2.5 mg/3 mL inhalation solution, 3 mL, Nebulized Inhalation , Q6H, PRN Effexor XR, 150 mg= 1 Cap, Oral, Daily erythromycin 0.5% ophthalmic ointment, 1 Application, Eye Left, BID hydrALAZINE, 10 mg= 0.5 mL, IV Push, Q6H, PRN Lactated Ringers Injection intravenous solution 1,000 mL, 1000 mL, IntraVENous lidocaine 1% injectable solution, 0.5 mL, IntraDermal, 1-Time, PRN LORazepam, 1 mg= 1 Tab, Oral, TID Megace 40 mg/mL oral suspension, 800 mg= 20 mL, Oral, Daily melatonin, 3 mg= 1 Tab, Oral, At Bedtime, PRN morphine, 2 mg= 1 mL, IV Push, Q2H, PRN multivitamin, 1 Tab, Oral, Daily pantoprazole, 40 mg= 1 Tab, Oral, Daily Phenergan, 6.25 mg= 0.25 mL, IntraVENous, Q6H, PRN Reglan, 10 mg= 1 Tab, Oral, AC and at Bedtime Tylenol, 650 mg= 2 Tab, Oral, Q4H, PRN Home aspirin, 81 mg, Oral, Daily Ativan 1 mg oral tablet, 1 mg= 1 Tab, Oral, TID, PRN Bactrim 400 mg-80 mg oral tablet, 1 Tab, Oral, BID clopidogrel 75 mg oral tablet, 75 mg= 1 Tab, Oral, Daily Effexor XR 75 mg oral capsule, extended release, Oral, Daily LORazepam, 1 mg, Oral, TID multivitamin, 1 Tab, Oral, Daily pantoprazole 40 mg oral delayed release tablet, 40 mg= 1 Tab, Oral, Daily Pepcid 20 mg oral tablet, 20 mg= 1 Tab, Oral, Daily, 1 refills Plavix 75 mg oral tablet, Oral, Daily Zofran 8 mg oral tablet, 8 mg= 1 Tab, Oral, TID, PRN Lab Results CBC Results (Current Encounter/Past 24 Hours) WBC 5.5 K/uL 10/11/2020 05:54 Hct 32.0 % LOW 10/11/2020 07:18 Hgb 10.0 g/dL LOW 10/11/2020 07:18 Platelet Count 258 K/uL 10/11/2020 05:54 CMP Results (Current Encounter/Past 24 Hours) Creatinine Level 0.90 mg/dL 10/12/2020 12:27 A/G Ratio 0.7 LOW 10/12/2020 12:27 eGFR >60 mL/min/1.73m2 10/12/2020 12:27 Bun/Creatinine 11.1 10/12/2020 12:27 Globulin 3.7 Gram/dL 10/12/2020 12:27 Protein Total 6.4 Gram/dL 10/12/2020 12:27 eGFR NonAfrican >60 mL/min/1.73m2 10/12/2020 12:27 Sodium Level 139 mmol/L 10/12/2020 12:27 Potassium Level 3.4 mmol/L LOW 10/12/2020 12:27 Chloride Level 107 mmol/L 10/12/2020 12:27 Carbon Dioxide Level 27 mmol/L 10/12/2020 12:27 Anion Gap 8 LOW 10/12/2020 12:27 Alk Phos 153 Units/Liter HI 10/12/2020 12:27 ALT 21 Units/Liter 10/12/2020 12:27 AST 23 Units/Liter 10/12/2020 12:27 Blood Urea Nitrogen 10 mg/dL 10/12/2020 12:27 Glucose Level 94 mg/dL 10/12/2020 12:27 Albumin Level 2.7 Gram/dL LOW 10/12/2020 12:27 Bilirubin Total 0.6 mg/dL 10/12/2020 12:27 Calcium Level 9.1 mg/dL 10/12/2020 12:27 Coagulation Results (Current Encounter/Past 24 Hours) No Coagulation Results Found (Past 24 Hours) Blood Gases (Current Encounter/Past 24 Hours) No Blood Gas Results Found (Past 24 Hours) Cardiac Markers (Current Encounter/Past 24 Hours) No Cardiac Marker Results Found (Past 24 Hours) Electrolytes(BMP) Results (Current Encounter/Past 24 Hours) Sodium Level 139 mmol/L 10/12/2020 12:27 Potassium Level 3.4 mmol/L LOW 10/12/2020 12:27 Chloride Level 107 mmol/L 10/12/2020 12:27 Carbon Dioxide Level 27 mmol/L 10/12/2020 12:27 Anion Gap 8 LOW 10/12/2020 12:27 Blood Urea Nitrogen 10 mg/dL 10/12/2020 12:27 Glucose Level 94 mg/dL 10/12/2020 12:27 Calcium Level 9.1 mg/dL 10/12/2020 12:27 Creatinine Level 0.90 mg/dL 10/12/2020 12:27 Creatinine Clearance (Current Encounter/Past 24 Hours) Creatinine Level 0.90 mg/dL 10/12/2020 12:27 Bun/Creatinine 11.1 10/12/2020 12:27 Estimated Creatinine Clearance 61.03 mL/Min 10/11/2020 06:13 Diagnostic Results Radiology Results (Last 48 hours) [id number] -- 10/10/2020 10:58 CT Head WO W (10/10/2020 16:08) Result: CT HEAD WITHOUT AND WITH CONTRASTHISTORY: Nausea and vomiting for one week., Esophageal carcinoma,chemotherapy 3 weeks priorCOMPARISON: 05/26/2020TECHNIQUE: Multiple thin-section axial images of the brain wereperformed without and after the administration of 50 mL of Isovue-300intravenously. This study was performed with techniques to keepradiation doses as low as reasonably achievable, (ALARA). Individualizeddose reduction techniques using automated exposure control or adjustmentof mA and/or kV according to the patient size were employed.FINDINGS: The sinuses and mastoid air cells are clear. There are nofluid levels. Bone windows are unremarkable. The visualized orbits andglobes are unremarkable. The brainstem and posterior fossa areunremarkable. The ventricles and basal cisterns are unremarkable. Thereis no cortical edema. There are extensive areas of abnormal decreaseddensity throughout the white matter. This appears slightly increasedfrom the prior study. Findings are most consistent with severe smallvessel chronic ischemic change. There is no hemorrhage. There are noextra-axial fluid collections. There is no mass identified. Postenhanced images demonstrate no abnormal contrast enhancementIMPRESSION:1. No acute intracranial abnormalities.2. Significant low attenuation throughout the white matter which isslightly increased from 5 months prior. 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 No abnormal contrast enhancement to suggest metastatic disease. Images reviewed, interpreted, and dictated by Sampson Laws MD Electronically signed by Malina Jacob Conversion Chemical Production Machine Operator Cerner at 06/29/2022 2:33 PM CDT documented in this encounter Plan of Treatment Upcoming Encounters Date Type Department Care Team (Late st Contact Info) Description 11/24/2024 2:00 PM EDT Office Visit [facility] - [address] [place] [address] Jalen Enciso MD [address] [place] [address] documented as of this encounter Visit Diagnoses Not on filedocumented in this encounter Care Teams Roller Skates Assembler Relationship Specialty Start Date End Date Kaylene Brooke MD [address] [place] [address] PCP - General General Internal Medicine 01/27/22 Farooq Marcus MD [address] [place] [address] PCP - General Family Medicine 02/27/22 documented as of this encounter
--- OUTSIDE RECORDS SUMMARY | 2024-11-21 21:24 | XMS_ITS | Encounter Summary ---
Author Organization [employer] ([place], [place], [place], [place]) Address [address] [place] [address] Care Team Providers Care Cnc Lathe Machine Operator Name Role Phone Kaylene Brooke MD Primary Care Provider [phone] Farooq Marcus MD Primary Care Provider Encounter Details Date Type Department Care Team (Late st Contact Info) Description 09/22/2020 Transcribed Document [facility] [place] [facility] [place] [address] ProviderRayray MD [address] [place], [place] [address] Social History Tobacco Use Types Packs/Day Years Used Date Smoking Tobacco: Never Assessed Sex and Gender Information Value Date Recorded Sex Assigned at Not on file Legal Sex Male 5:14 PM CDT Gender Identity Not on file Sexual Orientation Not on file documented as of this encounter Miscellaneous Notes * Cerner Conversion Note - Rayray ProviderMD - 09/22/2020 4:13 PM CDT Patient: RANCHO DEL ANGEL Age: 84 years Sex: Male : 1935 Associated Diagnoses: None Author: ADRIAN MANDEL, PharmD, BCPS 84yo male with possible PNA being admitted and started on broad spectrum abx. Rx asked to follow for vancomycin dosing. Current ABX 1. Vancomycin per RX 2. Zosyn 3.375g IV q6h Vitals Signs (last 24 hrs) Last Charted Minimum Maximum Temp 97.7 (SEP 22 09:45) 97.7 (SEP 22 09:45) 97.7 (SEP 22 09:45) Mon HR 82 (SEP 22 15:30) 80 (SEP 22 11:45) 98 (SEP 22 13:30) Periph HR 96 (SEP 22 09:45) 96 (SEP 22 09:45) 96 (SEP 22 09:45) Resp Rate H 21 (SEP 22:30) 15 (SEP 22 11:45) H 27 (SEP 22:15) SBP 94 (SEP 22 15:30) 94 (SEP 22:15) 140 (SEP 22 13:30) DBP L 55 (SEP 22:) L 53 (SEP 22 11:45) 60 (SEP 22 13:30) MAP 67 (SEP 22 15:30) 67 (SEP 22:15) 86 (SEP 22 13:30) SpO2 94 (SEP 22:30) L 89 (SEP 22 10:00) 97 (SEP 22 12:15) Labs: Labs (Last four charted values) WBC H [...] (SEP 22) Troponin C 0.795 (SEP 22) wt. 80kg Est CrCl = ~42ml/min/m2 I/O - New admit C/x -Pending A/p 1. Patient received vancomycin 1g IV @ 1212 this am, based upon age, wt, and renal function will start Vancomycin 1250mg IV q24h to target a trough of 12-20, next dose at 2100 to account for first dose not being a load. 2. Trough level prior to dose on 09/24 @ 2000, Hold if >21 3. Other meds adjusted appropriately at this time, will monitor for changes. Rx will follow, Adrian Mandel,BarbraD,BCPS,BCCCP #[id number] Electronically signed by Nidia, [facility] Conversion Well Puller Head Cerner at 06/29/2022 2:21 PM CDT documented in this encounter Plan of Treatment Upcoming Encounters Date Type Department Care Team (Late st Contact Info) Description 11/24/2024 2:00 PM EDT Office Visit [facility] - [place] [address] [place] [address] Jalen Enciso MD [address] [place] [address] [place] [address] documented as of this encounter Visit Diagnoses Not on filedocumented in this encounter Care Teams Cnc Lathe Machine Operator Relationship Specialty Start Date End Date MendyKaylene dunn MD [address] [place] [address] PCP - General General Internal Medicine 01/27/22 Farooq Marcus MD [address] [place] [address] PCP - General Family Medicine 02/27/22 documented as of this encounter
--- OUTSIDE RECORDS SUMMARY | 2024-11-21 21:24 | XMS_ITS | Encounter Summary ---
Author Organization [employer] ([place], [place], [place], [place]) Address [address] [place] [address] Care Team Providers Care Professional Skateboarder Name Role Phone Kaylene Brooke MD Primary Care Provider [phone] Farooq Marcus MD Primary Care Provider [phone] Encounter Details Date Type Department Care Team (Late st Contact Info) Description 10/13/2020 Transcribed Document [facility] [address] [place] [address] ProviderRayray MD [address] [place] [address] Social History Tobacco Use Types Packs/Day Years Used Date Smoking Tobacco: Never Assessed Sex and Gender Information Value Date Recorded Sex Assigned at Not on file Legal Sex Male 5:14 PM CDT Gender Identity Not on file Sexual Orientation Not on file documented as of this encounter Miscellaneous Notes * Cerner Conversion Note - Rayray San MD - 10/13/2020 11:59 AM CDT [facility] [address] [place] [id number] RANCHO DEL ANGEL :1935 Visit Time:10/10/2020 Your Visit Summary Your Care Team Admitting Physician - KEISHA TUCKER MD Attending Physician - KEISHA TUCKER MD Primary Care Physician - MAZIN SHERIDAN MD-[facility] Referring Physician - SHAINA, NOT LISTED Your Diagnosis Intractable nausea and vomiting, Nausea with vomiting, unspecified, Nausea with vomiting, unspecified Gastritis Esophageal cancer Dehydration Generalized weakness Hypokalemia Depression Blepharitis Severe protein-calorie malnutrition Malnourished Nausea Post chemo evaluation Vomiting Vomiting These Are Your Goals Patient Discharge Goal Patient Discharge Goal: Home Discharge Vitals Temperature 36.3 ??C Heart Rate (Monitored) 82 Respiratory Rate 18 Blood Pressure 112/62 What to do next Instructions From Your Care Team STOP the following medications: STOP Bactrim (sulfamethoxazole-TMP) STOP Pepcid (famotidine) STOP Effexor (venlafaxine) 75 mg tablets --- Dose has been increased and NEW RX Provided. Discharge Activity: Discharge Activity: Activity as tolerated Diet: Discharge Diet: Resume usual diet as tolerated Follow-Up Appointments Follow Up with JALEN ENCISO MD-ONC When 10/21/2020 03:30 PM EDT Comments Oncology follow up. Appointment has been made. Bring discharge instructions with you. Where: [address] [address]- Follow Up with MAZIN SHERIDAN MD-[facility] When 10/20/2020 10:30 AM EDT Comments PCP follow up. Appointment has been made. Bring discharge instructions with you. Where: [address] [place] [address]- Medications What How Much When Instructions Next Dose erythromycin ophthalmic (erythromycin 0.5% ophthalmic ointment) 1 Application(s) Eye Left Two Times A Day Duration: 5 Day(s) Pickup at [facility] megestrol (Megace 40 mg/ mL oral suspension) 20 Milliliter(s) Oral Every Day Duration: 30 Day(s) Pickup at [facility] metoclopramide (Reglan 10 mg oral tablet) 1 Tablet(s) Oral Before Meals and at Bedtime Duration: 14 Day(s) Pickup at [facility] sucralfate (Carafate 1 g/ 10 mL oral suspension) 10 Milliliter(s) Oral Before Meals Duration: 10 Day(s) Pickup at [facility] LORazepam (Ativan 1 mg oral tablet) 1 Tablet(s) Oral Three Times A Day as needed for as needed for anxiety clopidogrel (Plavix 75 mg oral tablet) 1 Tablet(s) Oral Every Day venlafaxine (Effexor XR 150 mg oral capsule, extended release) 1 Capsule(s) Oral Every Day NEW DOSE Pickup at [facility] aspirin 81 Milligram(s) Oral Every Day multivitamin 1 Tablet(s) Oral Every Day ondansetron (Zofran 8 mg oral tablet) 1 Tablet(s) Oral Three Times A Day as needed for Nausea pantoprazole (pantoprazole 40 mg oral delayed release tablet) 1 Tablet(s) Oral Every Day Pharmacy Information [facility]: [address] [facility] [address] [place] [phone] Take your medications faithfully. Do NOT skip [...] these instructions at home: Medicines ??? Take slur-arv-ckdmmpj and prescription medicines only as told by [...] provider. Document Revised: 07/16/2018 Document Reviewed: 07/16/2018 [employer] Patient Education ?? 2020 [employer] metoclopramide (oral/injection) (MET oh TRAN martinez) [...] may report side effects to FDA at 0-449-MJV-5519. What other drugs will affect metoclopramide? Using [...] may affect metoclopramide. This includes prescription and evlv-eyr-cuwqojz medicines, vitamins, and herbal products. Not all [...] to ensure that the information provided by [employer]. ('Multum') is accurate, up-to-date, and complete, but no guarantee is made to that effect. Drug information contained herein may be time sensitive. Blackboard information has been compiled for use by healthcare practitioners and consumers in the [place] and therefore Blackboard does not warrant that uses outside of the [place] are appropriate, unless specifically indicated otherwise. [employer]obs drug information does not endorse drugs, diagnose patients or recommend therapy. [employer] drug information is an informational resource designed [...] effective or appropriate for any given patient. [employer] does not assume any responsibility for any aspect of healthcare administered with the aid of information Blackboard provides. The information contained herein is not intended to cover all possible uses, directions, precautions, warnings, drug interactions, allergic reactions, or adverse effects. If you have questions about the drugs you are taking, check with your doctor, nurse or pharmacist. Copyright 8012-9328 [employer]. Version: 12.. Revision Date: 05/17/2017. erythromycin ophthalmic (Alize BELL [...] may report side effects to FDA at 7-402-FTQ-0455. What other drugs will affect erythromycin ophthalmic? Medicine used in the eyes is not likely to be affected by other drugs you use. But many drugs can interact with each other. Tell each of your healthcare providers about all medicines you use, including prescription and pesj-kzw-csxzwky medicines, vitamins, and herbal products. Where can I get more information? Your pharmacist can provide more information about erythromycin ophthalmic. Remember, keep this and all other medicines out of the reach of children, never share your medicines with others, and use this medication only for the indication prescribed. Every effort has been made to ensure that the information provided by [employer]. ('Multum') is accurate, up-to-date, and complete, but no guarantee is made to that effect. Drug information contained herein may be time sensitive. Web[employer]m information has been compiled for use by healthcare practitioners and consumers in the [place] and therefore [employer] does not warrant that uses outside of the [place] are appropriate, unless specifically indicated otherwise. Blackboard's drug information does not endorse drugs, diagnose patients or recommend therapy. Trademobs drug information is an informational resource designed [...] effective or appropriate for any given patient. [facility] does not assume any responsibility for any aspect of healthcare administered with the aid of information [facility] provides. The information contained herein is not intended to cover all possible uses, directions, precautions, warnings, drug interactions, allergic reactions, or adverse effects. If you have questions about the drugs you are taking, check with your doctor, nurse or pharmacist. Copyright 9714-3094 [facility], [employer]. Version: 7.01. Revision Date: 11/07/2017. venlafaxine (CLARA [...] may report side effects to FDA at 1-820-KHF-9529. What other drugs will affect venlafaxine? Using [...] may affect venlafaxine. This includes prescription and yhrx-vwg-ykjfiyd medicines, vitamins, and herbal products. Not all [...] to ensure that the information provided by [employer]. ('Multum') is accurate, up-to-date, and complete, but no guarantee is made to that effect. Drug information contained herein may be time sensitive. Blackboard information has been compiled for use by healthcare practitioners and consumers in the [place] and therefore Blackboard does not warrant that uses outside of the [place] are appropriate, unless specifically indicated otherwise. Blackboard's drug information does not endorse drugs, diagnose patients or recommend therapy. Trademobs drug information is an informational resource designed [...] effective or appropriate for any given patient. [employer] does not assume any responsibility for any aspect of healthcare administered with the aid of information Blackboard provides. The information contained herein is not intended to cover all possible uses, directions, precautions, warnings, drug interactions, allergic reactions, or adverse effects. If you have questions about the drugs you are taking, check with your doctor, nurse or pharmacist. Copyright 6767-0802 [employer]. Version: 16.02. Revision Date: 08/26/2020. sucralfate (oral) [...] may report side effects to FDA at 2-737-OZC-3960. What other drugs will affect sucralfate? Other drugs may affect sucralfate, including prescription and jjkx-bgy-kjerqwl medicines, vitamins, and herbal products. Tell your [...] to ensure that the information provided by [employer]. ('Multum') is accurate, up-to-date, and complete, but no guarantee is made to that effect. Drug information contained herein may be time sensitive. Blackboard information has been compiled for use by healthcare practitioners and consumers in the [place] and therefore Blackboard does not warrant that uses outside of the [place] are appropriate, unless specifically indicated otherwise. WebupoZenDealss drug information does not endorse drugs, diagnose patients or recommend therapy. Trademobs drug information is an informational resource designed [...] effective or appropriate for any given patient. [facility] does not assume any responsibility for any aspect of healthcare administered with the aid of information Blackboard provides. The information contained herein is not intended to cover all possible uses, directions, precautions, warnings, drug interactions, allergic reactions, or adverse effects. If you have questions about the drugs you are taking, check with your doctor, nurse or pharmacist. Copyright 7306-8444 [facility] [employer]. Version: 12.10. Revision Date: 05/13/2020. megestrol (mirian [...] may report side effects to FDA at 7-703-YKS-8356. What other drugs will affect megestrol? Tell your doctor about all your other medicines, especially: ?? a blood thinner--warfarin, Coumadin, Jantoven. This list is not complete. Other drugs may affect megestrol, including prescription and qqcb-cid-jmqvtmx medicines, vitamins, and herbal products. Not all [...] to ensure that the information provided by [employer]. ('LinguaNexttum') is accurate, up-to-date, and complete, but no guarantee is made to that effect. Drug information contained herein may be time sensitive. Blackboard information has been compiled for use by healthcare practitioners and consumers in the [place] and therefore Blackboard does not warrant that uses outside of the [place] are appropriate, unless specifically indicated otherwise. Trademobs drug information does not endorse drugs, diagnose patients or recommend therapy. Trademobs drug information is an informational resource designed [...] effective or appropriate for any given patient. Blackboard does not assume any responsibility for any aspect of healthcare administered with the aid of information Blackboard provides. The information contained herein is not intended to cover all possible uses, directions, precautions, warnings, drug interactions, allergic reactions, or adverse effects. If you have questions about the drugs you are taking, check with your doctor, nurse or pharmacist. Copyright 7042-2292 [employer]. Version: 7.01. Revision Date: 11/08/2018. Emergency Awareness [...] Assistance with quitting is available by contacting 1-182-VRNOSimply HiredNOW. This is a free resource providing counseling, support, and referral. Or you may contact your personal physician. [employer] Suicide Prevention Lifeline: The National Suicide Prevention [...] range between ( 0.0 and 7.0 ) [place] #: 0.64 K/uL -- Normal range between ( 0.16 and 1.00 ) [place] #: 0.23 x10(3)/uL -- Normal range between ( 0.00 and 0.80 ) [place] %: 11.7 % -- Normal range between [...] Abnormal Macrocytosis: 1+ ANC #: 3 K/uL [place] Percent Man: 10 % -- Normal range [...] ) Urine Bilirubin Dipstick: Negative Urine Specific [place]: 1.014 -- Normal range between ( 1.005 [...] Portable: CR Chest 1 Vw Portable Patient Name:EDWARD DEL ANGELJeannine Molina I have received and understand this information and was given the opportunity to ask questions. Patient/Project Control Officer Name: Patient/Project Control Officer Signature: Relationship to Patient: Clinician/Hospital Project Control Officer Signature: Date: Electronically signed by Malina Jacob Conversion Associate Relations Specialist Cerner at 06/29/2022 2:41 PM CDT documented in this encounter Plan of Treatment Upcoming Encounters Date Type Department Care Team (Late st Contact Info) Description 11/24/2024 2:00 PM EDT Office Visit [facility] [address] [facility] [address] [place] [address] Jalen Enciso MD [address] [place] [address] documented as of this encounter Visit Diagnoses Not on filedocumented in this encounter Care Teams Professional Skateboarder Relationship Specialty Start Date End Date MendyKaylene MD [address] [place] [address] PCP - General General Internal Medicine 01/27/22 Farooq Marcus MD [address] [place] [address] PCP - General Family Medicine 02/27/22 documented as of this encounter
--- OUTSIDE RECORDS SUMMARY | 2024-11-21 21:24 | XMS_ITS | Encounter Summary ---
Author Organization Location ([place], [place], [place], [place]) Address [address] [place] [address] Care Team Providers Care Cream Tester Name Role Phone Farooq Marcus MD Primary Care Provider [phone] Reason for Visit * Reason Onset Date Comments Leg Swelling 09/29/2024 Encounter Details Date Type Department Care Team (Late st Contact Info) Description 09/29/2024 Telephone [facility] - [place] [id number] [facility] [address] [place] [address] Jalen Enciso MD [address] [place] [address] Leg Swelling Social History Tobacco Use Types Packs/Day Years Used Date Smoking Tobacco: Never Passive Smoke Exposure: Past Smokeless Tobacco: Never Alcohol Use Standard Drinks/Week Comments Never 0 (1 standard drink = 0.6 oz pur e alcohol) Family and Community Support Answer Quinton e Recorded Help with Day to Day Activities Not on file 03/22/2023 Feeling Lonely or Isolated Not on file 03/22 Educational Attainment Answer Date Scotty rded Speak language other than Surinamese at home Not on file 03/22/2023 Want help with school or training Not on file 03/22/2023 Substance Use Answer Date Recorded Used prescription meds for non-medical reasons N ot on file 03/22/2023 Used illegal drugs past 12 months Not on file 03/22/2023 Sex and Gender Information Value Date Recorded Sex Assigned at Not on file Legal Sex Male 5:14 PM CDT Gender Identity Not on file Sexual Orientation Not on file 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 * Telephone Encounter - Jennifer Argueta RN - 09/30/2024 8:35 AM EDT No answer on home # or mobile # * Telephone Encounter - Jennifer Argueta RN - 09/29/2024 9:[address] Enciso advised Rn to have pt contact [facility] for evaluation. RN tried contacting Brandee but noanswer and no voicemail. Will try back later. * Telephone Encounter - Jennifer Argueta RN - 09/29/2024 9:22 AM EDT 09/29/24 9:01 am Brandee [place] for [place] appt with Dr Enciso next month but wants to see him earlier. his legs have been staying swelled. [phone] RN returned call to Brandee to further assess leg swelling. Brandee states that swelling started 3 weeks ago. He had been on medication, furosemide, from PCP. It was making him sick so he was told to go downto 1/2 tablet every other day but it's not helping. Swelling is present in both legs, it goes aboutup to his knee. He does have some pain at times, pain varies whether he's resting or walking. Denies any redness or heat to his legs. He does have history of congestive heart failure. He denies any shortness of breath. He is not currently on any cancer treatment. He has seen PCP 5-6 times in the last few weeks and Brandee wants him see by Dr Enciso. He has not seen his logging supervisor. Message sent to DR Enciso, waiting on response. documented in this encounter Plan of Treatment Upcoming Encounters Date Type Department Care Team (Late st Contact Info) Description 11/24/2024 2:00 PM EDT Office Visit [facility] [place] [id number] [facility] [address] [place] [address] Jalen Enciso MD [address] [facility] [address] [place] [address] documented as of this encounter Visit Diagnoses Not on filedocumented in this encounter Care Teams Cream Tester Relationship Specialty Start Date End Date Farooq Marcus MD [address] [place] [address] PCP - General Family Medicine 02/27/22 documented as of this encounter
--- OUTSIDE RECORDS SUMMARY | 2024-11-21 21:24 | XMS_ITS | Encounter Summary ---
Author Organization [employer] ([place], [place], [place], [place]) Address [address] [place] [address] Care Team Providers Care Building Trades Teacher Name Role Phone Kaylene Brooke MD Primary Care Provider [phone] Farooq Marcus MD Primary Care Provider [phone] Encounter Details Date Type Department Care Team (Late st Contact Info) Description 09/22/2020 Transcribed Document [facility] [place] [facility] [place] [address] ProviderRayray MD [address] [place] [address] Social History Tobacco Use Types Packs/Day Years Used Date Smoking Tobacco: Never Assessed Sex and Gender Information Value Date Recorded Sex Assigned at Not on file Legal Sex Male 5:14 PM CDT Gender Identity Not on file Sexual Orientation Not on file documented as of this encounter Miscellaneous Notes * Cerner Conversion Note - Rayray ProviderMD - 09/22/2020 4:00 PM CDT Consult Phone Call Documentation Entered On: 09/23/2020 9:30 EDT Performed On: 09/22/2020 16:00 EDT by Pauline Leavitt Phone Call for Consults Consult Phone Call/Page Attempt : First call Consult Reason : pt known to Dr enciso . Esophgeal cancer now has n/v Physician Requesting Consult : CRISTINA LUNDBERG DO Physician Requested for Consult : JALEN ENCISO MD-ONC Provider Team Notified Name : Gynecology-oncology Date and Time Call Returned : 09/23/2020 9:30 EDT Consult, Additional Information : spoke to the office and they will pass the consult on Pauline Leavitt - 09/23/2020 9:29 EDT documented in this encounter Plan of Treatment Upcoming Encounters Date Type Department Care Team (Late st Contact Info) Description 11/24/2024 2:00 PM EDT Office Visit [facility] - [facility] [address] [place] [address] Jalen Enciso MD [address] [place] [place] [address] documented as of this encounter Visit Diagnoses Not on filedocumented in this encounter Care Teams Building Trades Teacher Relationship Specialty Start Date End Date Kaylene Brooke MD [address] [place] [address] PCP - General General Internal Medicine 01/27/22 Farooq Marcus MD [address] [place] [address] PCP - General Family Medicine 02/27/22 documented as of this encounter
--- OUTSIDE RECORDS SUMMARY | 2024-11-21 21:24 | XMS_ITS | Encounter Summary ---
Author Organization [employer] ([place], [place], [place], [place]) Address [address] [place] [address] Care Team Providers Care Swimming Professor Name Role Phone Kaylene Brooke MD Primary Care Provider [phone] Farooq Marcus MD Primary Care Provider [phone] Encounter Details Date Type Department Care Team (Late st Contact Info) Description 10/09/2020 Transcribed Document [facility] [place] [address] [place] [address] ProviderRayray MD [address] [place] [address] Social History Tobacco Use Types Packs/Day Years Used Date Smoking Tobacco: Never Assessed Sex and Gender Information Value Date Recorded Sex Assigned at Not on file Legal Sex Male 5:14 PM CDT Gender Identity Not on file Sexual Orientation Not on file documented as of this encounter Miscellaneous Notes * Cerner Conversion Note - Rayray ProviderMD - 10/09/2020 12:19 PM CDT ED Assessment Entered On: 10/09/2020 14:00 EDT Performed On: 10/09/2020 13:56 EDT by PRISCILLA JUAN RN ED Quick Look Assessment Level of Consciousness : Alert, Awake Affect/Behavior : Appropriate, Calm, Cooperative Orientation : Oriented x 4 Skin Color : Other: normal Skin Temperature : Warm Skin Description : Dry PRISCILLA JUAN RN - 10/09/2020 13:56 EDT ED General-Functional Assess Information Obtained From : Patient, Spouse Communication Barrier : None Primary Language : Faroese Any Spiritual/Cultural Needs or Requests : No Currently in Unsafe Situation : No PRISCILLA JUAN RN - 10/09/2020 13:56 EDT Social Habits Smoking Status : Never (less than 100 in lifetime; none in last 30 days) Smokeless Tobacco Status : Never Desires Tobacco Cessation Calc : 0 PRISCILLA JUAN RN - 10/09/2020 13:56 EDT Social History (As Of: 10/09/2020 14:00:41 EDT) Tobacco: Smoking Status Never smoker. (Last Updated: 04/22/2014 15:35:05 EST by DARRELL REED, Rn) Alcohol: Alcohol Use History No. Use in Last 12 Months: No. (Last Updated: 04/22/2014 15:34:53 EST by DARRELL REED, Rn) Substance Abuse: Drug Use Hx: No. (Last Updated: 09/08/2020 08:39:23 EDT by JUVE GILBERT Rn-Clinical Coordinator I) EENT Assessment EENT Assessment WDL : WDL with exceptions (Comment: pt in remission from esophageal cancer, last chemo treatment was 3 weeks ago, [PRISCILLA JUAN RN - 10/09/2020 13:56 EDT] ) PRISCILLA JUAN RN - 10/09/2020 13:56 EDT Cardiovascular ASMT, ED Cardiovascular Assessment WDL : WDL with exceptions (Comment: pt has a port placed in the right chest wall that was placed 1 month ago for chemo/radiation treatment. dualcath [PRISCILLA JUAN RN - 10/09/2020 13:56 EDT] ) PRISCILLA JUAN RN - 10/09/2020 13:56 EDT Respiratory Respiratory Assessment WDL : WDL PRISCILLA JUAN RN - 10/09/2020 13:56 EDT Oxygen Therapy Oxygen Therapy Mode : Room air PRISCILLA JUAN RN - 10/09/2020 13:56 EDT Gastrointestinal ED Gastrointestinal Assessment WDL : WDL with exceptions (Comment: pt comes in c/o n/v ever since his last chemo treatment 3 weeks ago, spouse states its been getting worse over time, unable to keep anything down when he eats. pt states that the n/v comes and goes [PRISCILLA JUAN RN - 10/09/2020 13:56 EDT] ) PRISCILLA JUAN RN - 10/09/2020 13:56 EDT Neurologic ASMT, ED Neurologic Assessment WDL : WDL PRISCILLA JUAN RN - 10/09/2020 13:56 EDT Pain Assessment Pain Assessment : Initial assessment Pain Scale Used : 0-10 Scale PRISCILLA JUAN RN - 10/09/2020 13:56 EDT Pain Scale Intensity : 6 PRISCILLA JUAN RN - 10/09/2020 13:56 EDT Image 4 - Images currently included in the form version of this document have not been included in the text rendition version of the form. documented in this encounter Plan of Treatment Upcoming Encounters Date Type Department Care Team (Late st Contact Info) Description 11/24/2024 2:00 PM EDT Office Visit [facility] - [facility] [address] [place] [address] Jalen Enciso MD [address] [place] [address] documented as of this encounter Visit Diagnoses Not on filedocumented in this encounter Care Teams Swimming Professor Relationship Specialty Start Date End Date Kaylene Brooke MD [address] [place] [address] PCP - General General Internal Medicine 01/27/22 Farooq Marcus MD [address] [place] [address] PCP - General Family Medicine 02/27/22 documented as of this encounter
--- OUTSIDE RECORDS SUMMARY | 2024-11-21 21:24 | XMS_ITS | Encounter Summary ---
Author Organization [employer] ([place], [place], [place], [place]) Address [address] [place] [address] Care Team Providers Care Corporate Trainer Name Role Phone Kaylene Brooke MD Primary Care Provider [phone] Farooq Marcus MD Primary Care Provider [phone] Encounter Details Date Type Department Care Team (Late st Contact Info) Description 10/13/2020 Transcribed Document [facility] [place] [facility] [place] [address] ProviderRayray MD [address] [place] [address] Social History Tobacco Use Types Packs/Day Years Used Date Smoking Tobacco: Never Assessed Sex and Gender Information Value Date Recorded Sex Assigned at Not on file Legal Sex Male 5:14 PM CDT Gender Identity Not on file Sexual Orientation Not on file documented as of this encounter Miscellaneous Notes * Cerner Conversion Note - Rayray ProviderMD - 10/13/2020 11:54 AM CDT Nursing Discharge Summary Entered On: 10/13/2020 11:55 EDT Performed On: 10/13/2020 11:54 EDT by Randi Johnson Rn-Traveler Discharge Documentation Discharge Date/Time : 10/13/2020 12:00 EDT Patient Disposition, General : Discharge Discharge To : Home with ambulatory/outpatient follow-up Education Comment : POC, safety, med mgmt, pain control Randi Johnson Rn-Traveler - 10/13/2020 11:54 EDT documented in this encounter Plan of Treatment Upcoming Encounters Date Type Department Care Team (Late st Contact Info) Description 11/24/2024 2:00 PM EDT Office Visit [facility] - [place] [place] [address] Jalen Enciso MD [address] [place] [address] documented as of this encounter Visit Diagnoses Not on filedocumented in this encounter Care Teams Corporate Trainer Relationship Specialty Start Date End Date MendyKaylene dunn MD [address] [place] [address] PCP - General General Internal Medicine 01/27/22 Farooq Marcus MD [address] [place] [address] PCP - General Family Medicine 02/27/22 documented as of this encounter
--- OUTSIDE RECORDS SUMMARY | 2024-11-21 21:24 | XMS_ITS | Encounter Summary ---
Author Organization [employer] ([place], [place], [place], [place]) Address [address] [place] [address] Care Team Providers Care Plate Roller Name Role Phone Kaylene Brooke MD Primary Care Provider [phone] Farooq Marcus MD Primary Care Provider [phone] Encounter Details Date Type Department Care Team (Late st Contact Info) Description 09/22/2020 Transcribed Document [facility] [place] [address] ProviderRayray MD [address] [place] [address] Social History Tobacco Use Types Packs/Day Years Used Date Smoking Tobacco: Never Assessed Sex and Gender Information Value Date Recorded Sex Assigned at Not on file Legal Sex Male 5:14 PM CDT Gender Identity Not on file Sexual Orientation Not on file documented as of this encounter Miscellaneous Notes * Cerner Conversion Note - Historical ProviderMD - 09/22/2020 5:28 PM CDT Patient: RANCHO DEL ANGEL Age: 84 years Sex: Male : 1935 Associated Diagnoses: None Author: CHANTELLE LUNDBERG DO [employer]ANN[employer] Purpose of Encounter: Advanced care planning in light of pancreatitis, sepsis, pna Parties in attendance: Patient, Provider, (katerina, but she goes by Khanh) Decisional Capacity: yes Diagnoses: severe sepsis due to pna - continue vanco and zosyn - follow cultures - bandemia and lactic acidosis level noted pancreatitis - elevated bilirubin noted, pt s/p lap lala - gi consult - npo - iv fluids - monitor closely esophageal cancer - pt of dr enciso - chemo last week, on 09/17 nstemi - cardiology consult - trend troponins - check echocardiogram - continue aspirin coronary artery disease - per pt s/p LHC and PCI [address] topete done at [facility] - pt stopped taking brilinta on his own accord shortly after the PCI as it was making him sob - on aspirin 81 mg daily. syncope 2 weeks ago - two weeks ago, was at [facility] for this stay. depression - start on antidepressant last week with dr enciso - pt and unsure what medication this was. irregular heart rhythm, possibly afib - with pacemaker - follows with dr topete and dr COSTA in [place] Patients Medical Story: Mr. Del Angel is an 84 year old male with history of esophageal cancer on chemotherapy with dr Enciso, last chemo on 09/17, coronary artery disease last with PCI in [facility] about 2 months ago as well as pacemaker for heart rhythm , possibly afib who presented to [facility] on 09/22 for evaluation of abd [...] stent placement about 2 months ago in [facility] he was started on brilinta and aspirin and didnt like how it made me feel thus he stopped taking the brilinta. He had syncopal episode after taking metoprolol and protonix and thus stopped taking those too about 2 weeks ago. He was also hospitalized at [facility] then. He reports significant weight loss [...] pancreatitis with elevated bilirubin and elevated troponin. Goals of Care Determinations: Patient wishes to focus on improving abd pain. he tells me that he would be ok with acls and intubation if needed. his , katerina (goes by khanh) would be his decision maker. he tells me that he does not want prolonged mechanical ventilation with tracheostomy and agrees that they have previously talked about this and he would not want that done. Plan: Will notify Primary Care Provider MAZIN SHERIDAN [facility] of change in care plan. Will look at further interventions as needed. Code Status: At this time patient wishes to be Code Status Start: 09/22/20 17:15:00 EDT, Full Code, Continuous Order Time Spent with Patient: [ 16] minutes Chantelle Lundberg D.O. [facility] Hospitalist pager: [phone] Electronically signed by Nidia [facility] Conversion Diploma Pharmacy Technician Cerner at 06/29/2022 2:26 PM CDT documented in this encounter Plan of Treatment Upcoming Encounters Date Type Department Care Team (Late st Contact Info) Description 11/24/2024 2:00 PM EDT Office Visit [facility] - [place] [place] [address] Jalen Enciso MD [address] [place] [address] documented as of this encounter Visit Diagnoses Not on filedocumented in this encounter Care Teams Plate Roller Relationship Specialty Start Date End Date Kayleen Brooke MD [address] [place] [address] PCP - General General Internal Medicine 01/27/22 Farooq Marcus MD [address] [place] [address] PCP - General Family Medicine 02/27/22 documented as of this encounter
--- OUTSIDE RECORDS SUMMARY | 2024-11-21 21:24 | XMS_ITS | Encounter Summary ---
Author Organization [employer] ([place], [place], [place], [place]) Address [address] [place] [address] Care Team Providers Care Fabric Worker Supervisor Name Role Phone Kaylene Brooke MD Primary Care Provider [phone] Farooq Marcus MD Primary Care Provider [phone] Encounter Details Date Type Department Care Team (Late st Contact Info) Description 09/22/2020 Transcribed Document [facility] [place] Family Medicine [address] [place] [address] ProviderRayray MD [address] [place] [address] Social History Tobacco Use Types Packs/Day Years Used Date Smoking Tobacco: Never Assessed Sex and Gender Information Value Date Recorded Sex Assigned at Not on file Legal Sex Male 5:14 PM CDT Gender Identity Not on file Sexual Orientation Not on file documented as of this encounter Miscellaneous Notes * Cerner Conversion Note - Rayray ProviderMD - 09/22/2020 9:28 AM CDT Broset Violence Assessment Entered On: 09/22/2020 11:11 EDT Performed On: 09/22/2020 11:06 EDT by CELIA ALBERT RN Broset Violence Assessment Broset Violence Checklist of Symptoms : None Broset Violence Symptoms Subtotal : 0 Broset Violence Symptoms Indicator : Low risk (0) CELIA ALBERT RN - 09/22/2020 11:06 EDT Electronically signed by Nidia [facility] Conversion Singer And Unloader Cerner at 06/29/2022 2:39 PM CDT documented in this encounter Plan of Treatment Upcoming Encounters Date Type Department Care Team (Late st Contact Info) Description 11/24/2024 2:00 PM EDT Office Visit [facility] - [address] [place] [address] Jalen Enciso MD [address] [place] [address] documented as of this encounter Visit Diagnoses Not on filedocumented in this encounter Care Teams Fabric Worker Supervisor Relationship Specialty Start Date End Date MendyKaylene dunn MD [address] [place] [address] PCP - General General Internal Medicine 01/27/22 Farooq Marcus MD [address] [place] [address] PCP - General Family Medicine 02/27/22 documented as of this encounter
--- OUTSIDE RECORDS SUMMARY | 2024-11-21 21:24 | XMS_ITS | Encounter Summary ---
Author Organization [employer] ([place], [place], [place], [place]) Address [address] [place] [address] Care Team Providers Care Principal Programmer Name Role Phone Kaylene Brooke MD Primary Care Provider [phone] Farooq Marcus MD Primary Care Provider [phone] Encounter Details Date Type Department Care Team (Late st Contact Info) Description 09/22/[address] [facility] [place] [address] ProviderRayray MD [address] [place], [place] [address] Social History Tobacco Use Types Packs/Day Years Used Date Smoking Tobacco: Never Assessed Sex and Gender Information Value Date Recorded Sex Assigned at Not on file Legal Sex Male 5:14 PM CDT Gender Identity Not on file Sexual Orientation Not on file documented as of this encounter Miscellaneous Notes * Cerner Conversion Note - Historical ProviderMD - 09/22/2020 11:52 PM CDT Nutrition Assessment Entered On: 09/24/2020 8:20 EDT Performed On: 09/24/2020 8:20 EDT by Fabiola Holly Nutrition Assessment Current Nutrition Regimen Comment : 09/24: Rec'd consult for MST=3 (decreased appetite, 14-23lb wt loss). Pt is 84 yo M with hx of esophageal cancer finished chemo earlier this month. Pt presented to [facility] 09/22 for abd pain with N/V. GI consulted, LFTs/pancreatitis likely due to medication/dehydration, LFTs improving. Visited pt, not in room at time of visit. Pt stated he had a good appetite prior to hospitalization, ate 2 meals/day + snacks. No issues chewing/swallowing reported. Pt stated UBW 185#, last known in May 2020 before chemo started, stated CBW 165# (but admit wj=621#). RD to reorder wt to confirm. NFPE [...] Esophageal cancer hx of chemo, CAD, HLD, SD, cholecystectomy Meds: aspirin, Colace, PPI, senna, abx, PRN Zofran, PRN oxycodone, IVF Labs: Tbili 1.7, elevated LFTs, Lipase 1,504, Lactic acid 2.8, PLT 129 Skin: dry/fragile, no breakdown noted GI: +BS, LBM 09/23 Diet: Clear liquid x 2 days Intakes: establishing - RN reports poor Ht: 72 Wt: 175#/79.5kg-bedscale wt, noted discrepancy - RD to reorder Hx: 159# (09/08)-Standing scale UBW: 185# x 4 months ago BMI: 23.7 IBW/%IBW: 80.9kg/ 98.2% IBW Katey Warren Dietitian - 09/24/2020 13:04 EDT Nutrition Assessment Reason : Automatic referral Fabiola Holly - 09/24/2020 8:19 EDT Nutrition Diagnoses Oral or Nutrition Support Intake : Inadequate oral intake Oral or Nutr Support Intake Related To : clear liquid; pancreatitis Oral or Nutr Support Intake Evidenced by : minimal intakes x 2 days Oral or Nutrition Support Intake Status : Active Weight : Unintended weight loss Weight Related to : chemotherapy Fabiola Holly - 09/24/2020 10:33 EDT Weight As Evidenced by : reported 20# wt loss (10.8% x 4 months; significant) - does not match admit wt Katey Warren Dietitian - 09/24/2020 13:04 EDT Weight Status : Active Fabiola Holly - 09/24/2020 10:33 EDT Nutrition Interventions Meals and Snacks : Clear liquid diet Nutrition Supplement Therapy : Commercial beverage Fabiola Holly - 09/24/2020 10:33 EDT Monitoring/Evaluation Protein Intake : Total protein Katey Warren Dietitian - 09/24/2020 12:24 EDT Energy Intake : Total energy intake Fluid/Beverage Intake : Oral fluids Weight Status : Weight Maintanence Gastrointestinal Function : Bowel Function Fabiola Holly - 09/24/2020 10:33 EDT Nutrition Recommendations Nutrition Care Level : High Dietitian Recommendations : 1. Encourage PO intake, continue clear liquid diet, AAT to regular diet. Monitor need for low fat. RD to send Ensure clear TID, adjust PRN. Goal: Intakes >50%, diet advancement 2. Monitor wt 2x weekly. RD to reorder wt to confirm accuracy of admit wt - will continue to assess for PCM. Goal: no significant wt changes 3. Add MVI Goal: 100% DRI High risk Katey Warren Dietitian - 09/24/2020 13:04 EDT documented in this encounter Plan of Treatment Upcoming Encounters Date Type Department Care Team (Late st Contact Info) Description 11/24/2024 2:00 PM EDT Office Visit [facility] - [address] [facility] [address] [place] [address] Jalen Enciso MD [address] [place] [address] documented as of this encounter Visit Diagnoses Not on filedocumented in this encounter Care Teams Principal Programmer Relationship Specialty Start Date End Date Kaylene Brooke MD [address] [place] [address] PCP - General General Internal Medicine 01/27/22 Farooq Marcus MD [address] [facility] [place] [address] PCP - General Family Medicine 02/27/22 documented as of this encounter
--- OUTSIDE RECORDS SUMMARY | 2024-11-21 21:24 | XMS_ITS | Encounter Summary ---
Author Organization [employer] ([place], [place], [place], [place]) Address [address] [place] [address] Care Team Providers Care Advertising Agency Manager Name Role Phone Kaylene Brooke MD Primary Care Provider [phone] Farooq Marcus MD Primary Care Provider Encounter Details Date Type Department Care Team (Late st Contact Info) Description 09/22/[address] [facility] [place] [facility] [place] [address] ProviderRayray MD [address] [place] [address] Social History Tobacco Use Types Packs/Day Years Used Date Smoking Tobacco: Never Assessed Sex and Gender Information Value Date Recorded Sex Assigned at Not on file Legal Sex Male 5:14 PM CDT Gender Identity Not on file Sexual Orientation Not on file documented as of this encounter Miscellaneous Notes * [employer]ner Conversion Note - Rayray ProviderMD - 09/22/2020 4:02 PM CDT Consult Phone Call Documentation Entered On: 09/23/2020 9:15 EDT Performed On: 09/22/2020 16:02 EDT by Pauline Leavitt Phone Call for Consults Consult Phone Call/Page Attempt : First call Consult Reason : Nstemi Physician Requesting Consult : CRISTINA LUNDBERG DO Physician Requested for Consult : EMMA HEALY MD-CAR Provider Service Notified Name : Cardiology Date and Time Call Returned : 09/23/2020 9:15 EDT Consult, Additional Information : spoke to kaiser and she will pass the consult on Pauline Leavitt Geoff - 09/23/2020 9:15 EDT documented in this encounter Plan of Treatment Upcoming Encounters Date Type Department Care Team (Late st Contact Info) Description 11/24/2024 2:00 PM EDT Office Visit [facility] - [place] [address] [place] [address] Jalen Enciso MD [address] [place] [address] documented as of this encounter Visit Diagnoses Not on filedocumented in this encounter Care Teams Advertising Agency Manager Relationship Specialty Start Date End Date Kaylene Brooke MD [address] [place] [address] PCP - General General Internal Medicine 01/27/22 Farooq Marcus MD [address] [place] [address] PCP - General Family Medicine 02/27/22 documented as of this encounter
--- OUTSIDE RECORDS SUMMARY | 2024-11-21 21:24 | XMS_ITS | Encounter Summary ---
Author Organization [employer] ([place], [place], [place], [place]) Address [address] [place] [address] Care Team Providers Care Boom Pump Operator Name Role Phone Kaylene Brooke MD Primary Care Provider [phone] Farooq Marcus MD Primary Care Provider [phone] Encounter Details Date Type Department Care Team (Late st Contact Info) Description 09/22/2020 Transcribed Document [facility] Radiology [address] [place] [id number] Swathi Augustin MD [facility] Dept [place] [address] Social History Tobacco Use Types Packs/Day Years Used Date Smoking Tobacco: Never Assessed Sex and Gender Information Value Date Recorded Sex Assigned at Not on file Legal Sex Male 5:14 PM CDT Gender Identity Not on file Sexual Orientation Not on file documented as of this encounter Miscellaneous Notes * Cerner Conversion Note - Swathi Augustin MD - 09/22/2020 11:01 AM EDT Patient: RANCHO DEL ANGEL Age: 84 years Sex: Male : 1935 Associated Diagnoses: Pancreatitis; Sepsis; NSTEMI (non-ST elevated myocardial infarction) Author: SWATHI AUGUSTIN MD Basic Information Time seen: Date & time 09/22/2020 10:01:00. History source: Patient. Arrival mode: Private vehicle. History limitation: None. Additional information: Chief Complaint from Nursing Triage Note : Chief Complaint 09/22/2020 9:45 EDT Chief Complaint c/o generalized abdominal pain, n/v since last night. Temp 102 yesterday per . 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 Enciso. . History of Present Illness Patient presents with 24 hours of mid abdominal pain and multiple episodes of vomiting. Patient has a history of esophageal cancer and is currently on chemo, following Dr. Enciso. Last chemo 1 week ago. Patient reports constant mid abdominal pain, no aggravating relieving factors. Reports multiple episodes of vomiting last night, unsure of the last time he threw up. Denies blood in emesis. He reports his last bowel movement was a week ago after having a large amount of diarrhea secondary to a preventative antibiotic. Patient is unsure what antibiotic he was on. He thinks this was to prevent infection, he does not think he was having an infection treated. His reported to the nurse he had a temperature of 102F last night. Patient reports he has had intermittent cough which is normal for him. Denies urinary symptoms.. Review of Systems Constitutional symptoms: Fever. Skin symptoms: Negative except as documented in HPI. Eye symptoms: Negative except as documented in HPI. Respiratory symptoms: Cough. Cardiovascular symptoms: Negative except as documented in HPI. Gastrointestinal symptoms: Abdominal pain, nausea, vomiting, constipation. Genitourinary symptoms: Negative except as documented in HPI. Musculoskeletal symptoms: Negative except as documented in HPI. Neurologic symptoms: Negative except as documented in HPI. Psychiatric symptoms: Negative except as documented in HPI. Hematologic/Lymphatic symptoms: Negative except as documented in HPI. Health Status Allergies: Allergic Reactions (Selected) No Known Allergies. Medications: (Selected) Inpatient Medications Ordered PACLitaxel + [...] Refill(s) pantoprazole: 40 mg, Oral, Daily, 0 Refill(s). Past Medical/ Family/ Social History Medical history Reviewed as documented in chart. Surgical history: Pacemaker. cardiac stent. heart cath. colonoscopy., Reviewed as documented in chart. Family history: No family history items have been selected or recorded., Reviewed as documented in chart. Social history: Social & Psychosocial Habits Alcohol 04/22/2014 Alcohol Use History, Social Habits No Alcohol Use in Last Twelve Months No Substance Abuse 09/08/2020 Recreational Drug Use History No Tobacco 04/22/2014 Smoking Status Never smoker , Reviewed as documented in chart. Problem list: Active Problems (7) Anxiety disorder At risk for sleep apnea Chest pain with high risk for cardiac etiology Esophagus cancer Hyperlipidemia Leg neuralgia Myocardial infarction , per nurse's notes. Physical Examination Vital Signs Vital Signs/Vital Measures 09/22/2020 9:45 EDT Systolic Blood Pressure 118 mmHg Diastolic Blood Pressure 56 mmHg LOW Temperature Source Oral Temperature Mode Fahrenheit Temperature, Fahrenheit 97.7 Deg F Clinical Temperature, C 36.5 Deg C Peripheral Pulse Rate 96 bpm Respiratory Rate 16 Breaths/Min Oxygen Saturation 91 % LOW Oxygen Therapy Mode Room air . Measurements 09/22/2020 9:45 EDT Height Source Stated Height Entry Format Coal Height/Length, BANGLADESHI (ft) 6 ft Height/Length BANGLADESHI 0 Inch CLINICALHEIGHT 182.88 cm Terry Body Weight 76.59 kg Weight Source, ED Critical estimated dosing weight Weight Entry Format Coal Weight Guinean lb 175 lb CLINICALWEIGHT 79.55 kg Body Surface Area (BSA) 2.01 m2 Body Mass Index 23.8 kg/m2 . Oxygen Saturation 09/22/2020 9:45 EDT Oxygen Saturation 91 % LOW . General: Alert, no acute distress. Skin: Warm, dry, pale. Head: Normocephalic, atraumatic. Neck: Supple, trachea midline. Eye: Pupils are equal, round and reactive to light, extraocular movements are intact, normal conjunctiva. Ears, nose, mouth and throat: Oral mucosa moist. Cardiovascular: Regular rate and rhythm, No murmur. Respiratory: Lungs are clear to auscultation, respirations are non-labored. Gastrointestinal: Soft, Nontender, Non distended, Bowel sounds: Quiet. Back: Nontender, Normal range of motion. Musculoskeletal: Normal ROM, normal strength. Neurological: Alert and oriented to person, place, time, and situation, No focal neurological deficit observed. Psychiatric: Cooperative, appropriate mood & affect. Medical Decision Making Differential Diagnosis: Bowel obstruction, cholecystitis, hepatitis, pancreatitis, diverticulitis. Documents reviewed: Emergency department nurses' notes. Electrocardiogram: Time 09/22/2020 09:54:00, rate 93, normal sinus rhythm, no ectopy, normal IA & QRS intervals, EP Interp, Left bundle branch block consistent with prior EKG. Results review: Lab results : Lab Results 09/22/2020 13:45 EDT Lactic Acid Level 3.6 mmol/L CRIT 09/22/2020 11:41 EDT Influenza A Negative Influenza B Negative SARS-CoV-2 (COVID19 PCR) Negative 09/22/2020 11:25 EDT Urine Type. U CleanCatch Urine Color Adriana Urine Appearance Clear Urine Specific [place] 1.016 Urine pH Dipstick 7.0 Urine Leukocyte Esterase Negative Urine Nitrite Negative Urine Protein Dipstick Negative Urine Glucose Dipstick Negative Urine Ketones Dipstick Negative Urine Urobilinogen Dipstick 4.0 EU/dL Urine Bilirubin Dipstick Small Urine Blood Dipstick Negative Urine Culture if Indicated Culture Ordered 09/22/2020 10:13 EDT Sodium Level 138 mmol/L Potassium Level 4.0 mmol/L Chloride Level 103 mmol/L Carbon Dioxide Level 28 mmol/L Anion Gap 11 Glucose Level 120 mg/dL HI Blood Urea Nitrogen 16 mg/dL Creatinine Level 1.30 mg/dL eGFR >60 mL/min/1.73m2 eGFR NonAfrican 53 mL/min/1.73m2 LOW Bun/Creatinine 12.3 Calcium Level 9.0 mg/dL Protein Total 6.6 Gram/dL Albumin Level 3.0 Gram/dL LOW Globulin 3.6 Gram/dL A/G Ratio 0.8 LOW Bilirubin Total 2.8 mg/dL HI Alk Phos 343 Units/Liter HI AST 269 Units/Liter HI ALT 247 Units/Liter HI Lipase Level 5,762 Units/Liter HI Lactic Acid Level 2.8 mmol/L CRIT Troponin I Ultra 0.795 ng/mL CRIT ProBNP 2,259 pg/mL HI WBC 12.8 K/uL HI RBC 3.73 Million/uL LOW Hgb 11.3 g/dL LOW Hct 35.5 % LOW MCV 95.2 fL HI MCH 30.3 pg MCHC 31.8 Gram/dL LOW Platelet Count 189 K/uL MPV 9.7 fL RDW 14.7 % Neutrophil Percent Man 67 % HI Band Percent Man 30 % HI ANC # 12 K/uL NA Lymph Percent Man 1 % LOW ALYC # 0 K/uL NA [place] Percent Man 1 % LOW Eos Percent Man 0 % Baso Percent Man 0 % [place] Percent Man 1 % RBC Morphology Abnormal Anisocytosis 1+ Hypochromia 1+ Platelet Ct Estimate Adequate Procalcitonin 45.30 ng/mL HI . Radiology results: Reviewed radiologist's report, Radiology Results (Last 48 hours) [id number] -- 09/22/2020 09:28 CR Chest 1 Vw [...] by Dr. Cori Bui.Transcribed by Heath Camargo PA-C.Marcelo have personally viewed, interpreted and dictated the examination. Austin read and agree with the above final [...] by Dr. Cori Bui.Transcribed by Urmila Corrales PA-C.Marcelo have personally viewed, interpreted and dictated the examination. Austin read and agree with the above final transcribed report. . Impression and Plan Diagnosis Pancreatitis - Discharge, Emergency medicine, Medical Sepsis - Discharge, Emergency medicine, Medical NSTEMI (non-ST elevated myocardial infarction) - Discharge, Emergency medicine, Medical Calls-Consults - 09/22/2020 16:02:00 , CRISTINA LUNDBERG DO, hospitalist, phone call, recommends accepts inpatient tele. Plan Condition: Stable. Disposition: Admit Admit/Transfer/Discharge: Admit to Inpatient (Order): Start: 09/22/2020 16:03 EDT, Admit reason: sepsis, pancreatitis, nstemi, Estimated length of stay 2 Midnights or LONGER, Level of Care: Telemetry unit, Admitting: CRISTINA LUNDBERG DO. Counseled: Patient, Regarding diagnosis, Regarding diagnostic results, Regarding treatment plan, Patient indicated understanding of instructions. documented in this encounter Plan of Treatment Upcoming Encounters Date Type Department Care Team (Late st Contact Info) Description 11/24/2024 2:00 PM EDT Office Visit [facility] [address] [place] [address] Jalen Enciso MD [address] [place] [address] documented as of this encounter Visit Diagnoses Not on filedocumented in this encounter Care Teams Boom Pump Operator Relationship Specialty Start Date End Date Kaylene Brooke MD [address] [place] [address] PCP - General General Internal Medicine 01/27/22 Farooq Marcus MD [address] [facility] [place] [address] PCP - General Family Medicine 02/27/22 documented as of this encounter
--- OUTSIDE RECORDS SUMMARY | 2024-11-21 21:24 | XMS_ITS | Referral Summary ---
Author Organization [employer] ([place], [place], [place], [place]) Address [address] [place] [address] Care Team Providers Care Marble Cleaner Name Role Phone Farooq Marcus MD Primary Care Provider [phone] Encounters Date Type Department Care Team Description 11/21/2024 Telephone [facility] [address] [place] [address] Jalen Enciso MD Appointment 09/29/2024 Telephone [facility] [address] [place] [address] Jalen Enciso MD Leg Swelling from Last 3 Months Allergies Active Allergy Reactions Criticality Noted Date Comments Oxycodone Anxiety Low 02/06/2022 1hallucinations Medications LORazepam (ATIVAN) 1 MG tablet Take 1 tablet (1 mg total) by mouth 3 (three) times daily. 12/27/2021 Active pantoprazole (PROTONIX) 40 MG tablet Take 1 tablet (40 mg total) by mouth 2 (two) times daily. 01/24/2022 Active metoprolol succinate (TOPROL-XL) 25 MG 24 hr tablet Take 1 tablet (25 mg total) by mouth daily. 03/10/2022 Active montelukast (SINGULAIR) 10 mg tablet Take 1 tablet (10 mg total) by mouth daily. 11/14/2022 Active ramipriL (ALTACE) 10 MG capsule Take 1 capsule (10 mg total) by mouth daily. 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 Not on file Not on file Last Filed Vital Signs Vital Sign Reading Time Taken Comments Blood Pressure 134/63 07/21/2024 2:41 PM EDT Pulse 60 07/21/2024 2:41 PM EDT Temperature 36.8 C (98.2 F) 07/21/2024 2:41 PM EDT Respiratory Rate 18 07/21/2024 2:41 PM EDT Oxygen Saturation 98% 07/21/2024 2:41 PM EDT Inhaled Oxygen Concentration - - Weight 79.8 kg (176 lb) 07/21/2024 2:41 PM EDT Height 182.9 cm (6') 07/21/2024 2:41 PM EDT Body Mass Index 23.87 07/21/2024 2:41 PM EDT Plan of Treatment Upcoming Encounters Date Type Department Care Team (Late st Contact Info) Description 11/24/2024 2:00 PM EDT Office Visit [facility] - [place] [address] [place] [address] Jalen Enciso MD [address] [place] [address] Insurance MEDICARE PART A B Care Teams Marble Cleaner Relationship Specialty Start Date End Date Farooq Marcus MD [address] [place] [address] PCP - General Family Medicine 02/27/22
--- OUTSIDE RECORDS SUMMARY | 2024-11-21 21:24 | XMS_ITS | Encounter Summary ---
Author Organization [employer] ([place], [place], [place], [place]) Address [address] [place] [address] Care Team Providers Care Critical Care Physician Name Role Phone Kaylene Brooke MD Primary Care Provider [phone] Farooq Marcus MD Primary Care Provider [phone] Encounter Details Date Type Department Care Team (Late st Contact Info) Description 10/09/2020 Transcribed Document [facility] [place] [facility] [place] [address] ProviderRayray MD [address] [place] [address] Social History Tobacco Use Types Packs/Day Years Used Date Smoking Tobacco: Never Assessed Sex and Gender Information Value Date Recorded Sex Assigned at Not on file Legal Sex Male 5:14 PM CDT Gender Identity Not on file Sexual Orientation Not on file documented as of this encounter Miscellaneous Notes * Cerner Conversion Note - Rayray ProviderMD - 10/09/2020 4:33 PM CDT Evaluation, Occupational Therapy Entered On: 10/11/2020 15:50 EDT Performed On: 10/11/2020 13:56 EDT by Virginia Gonzalez OCCUPATIONAL THERAPIST NON-EXEMPT General Information, OT Visit Type, OT : Initial evaluation Patient Orders : Order Date Order Ordering 10/09/2020 16:34 OT Evaluation and Treatment Ordered By: SASHA PEREZ PA-C Active Diagnoses : 10/09/2020 12:00 Encounter for follow-up examination after completed treatment for conditions other than malignant neoplasm 10/09/2020 12:00 Nausea 10/09/2020 12:00 Vomiting 10/09/2020 12:00 Vomiting, unspecified Therapy Diagnosis, OT : Decreased I with ADls/functional mobility due to weakness Onset of Problem, OT : 10/11/2020 EDT Admission Date : 10/10/2020 10:58 Personal Devices : Personal Devices No Devices Recorded Assistive Devices : Assistive Devices No Devices Recorded Virginia Gonzalez OCCUPATIONAL THERAPIST NON-EXEMPT - 10/11/2020 15:42 EDT General Status Patient Received Status : Supine in bed, HOB elevated Treatment Start Time : 10/11/2020 13:33 EDT Patient Left Status : Supine in bed, RN/PCT informed, Family/Visitors at bedside, All needs met and within reach RN/PCT Informed Comment : MERA gonzales Treatment End Time : 10/11/2020 13:56 EDT Treatment Time : 23 Minute(s) Virginia Gonzalez OCCUPATIONAL THERAPIST NON-EXEMPT - 10/11/2020 15:42 EDT History and Environment, OT Living Situation, Therapy : Home Patient Lives With : Spouse Persons Assisting Patient at Home : Spouse Persons Providing Information : Patient, Spouse Home Equipment, Therapy : Walker Home Setup : One story Stairs : Yes Stair Location(s) : Outside Outside Stairs, Number of Steps : 2 Virginia Gonzalez OCCUPATIONAL THERAPIST NON-EXEMPT - 10/11/2020 15:42 EDT Prior LOF Bathing, OT : Assist needed Prior LOF Bed Mobility : Assist needed Prior LOF Upper Body Dressing, OT : Assist needed Prior LOF Lower Body Dressing, OT : Assist needed Prior LOF Toileting : Assist needed Prior LOF Transfer : Assist needed Prior LOF Grooming, OT : Assist needed Prior LOF for IADLs, OT : Assist needed Virginia Gonzalez OCCUPATIONAL THERAPIST NON-EXEMPT - 10/11/2020 15:42 EDT Prior LOF Assist with ADL Comment : Pt has required A with ADLs recently due to cancer diagnosis. Ambulates hand held assist with . Virginia Gonzalez OCCUPATIONAL THERAPIST NON-EXEMPT - 10/11/2020 15:42 EDT Upper Extremity Upper Extremity Dominance : Right Right UE Active ROM : WFL Left UE Active ROM : WFL Virginia Gonzalez OCCUPATIONAL THERAPIST NON-EXEMPT - 10/11/2020 15:42 EDT Right Upper Extremity MMT Shoulder Flexion 0-180 : 3-/fair Shoulder Extension 0-60 : 3-/fair Elbow Flexion 0-150 : 3-/fair Elbow Extension 0-0 : 3-/fair Virginia Gonzalez OCCUPATIONAL THERAPIST NON-EXEMPT - 10/11/2020 15:42 EDT Left Upper Extremity MMT Shoulder Flexion 0-180 : 3-/fair Shoulder Extension 0-60 : 3-/fair Elbow Flexion 0-150 : 3-/fair Elbow Extension 0-0 : 3-/fair Virginia Gonzalez OCCUPATIONAL THERAPIST NON-EXEMPT - 10/11/2020 15:42 EDT Self Care/Home Management, OT Self Feeding Assist Level, OT : Supervision or set-up Grooming Assist Level, OT : Supervision or set-up Bathing Assist Level, OT : Assist, moderate Upper Body Dressing Assist Level, OT : Supervision or set-up Lower Body Dressing Assist Level, OT : Assist, minimal Toileting Assist Level : Assist, minimal Toilet Transfer Assist Level : Supervision or set-up Toilet Transfer Comment : CGA Virginia Gonzalez OCCUPATIONAL THERAPIST NON-EXEMPT - 10/11/2020 15:42 EDT Functional Mobility Mobility Grid Supine to Sit : Supervision/set-up (Comment: SBA [Virginia Gonzalez OCCUPATIONAL THERAPIST NON-EXEMPT - 10/11/2020 15:42 EDT] ) Sit to Stand : Supervision/set-up (Comment: CGA [Virginia Gonzalez OCCUPATIONAL THERAPIST NON-EXEMPT - 10/11/2020 15:42 EDT] ) Sit to Supine : Supervision/set-up (Comment: SBA [Virginia Gonzalez OCCUPATIONAL THERAPIST NON-EXEMPT - 10/11/2020 15:42 EDT] ) Virginia Gonzalez OCCUPATIONAL THERAPIST NON-EXEMPT - 10/11/2020 15:42 EDT Cognition Assessment, OT Orientation : Oriented x 4 Virginia Gonzalez OCCUPATIONAL THERAPIST NON-EXEMPT - 10/11/2020 15:42 EDT Indication Assessment, OT Occupational Therapy Indicated : Yes Problem List, OT : Impaired, bed mobility, Impaired, activities daily living, Impaired, endurance tolerance, Impaired functional mobility, Impaired, sitting balance, Impaired, standing balance, Impaired, strength, Impaired, transfers Virginia Gonzalez OCCUPATIONAL THERAPIST NON-EXEMPT - 10/11/2020 15:42 EDT Plan of Care, OT OT Tx Plan/Goals Established w Patient : Yes OT Frequency Rehab : Five days per week OT Duration Rehab : Fourteen days OT Treatments Planned : Activities of daily living, Balance training, Functional mobility training, Safety education, Therapeutic activities, Therapeutic exercises Virginia Gonzalez OCCUPATIONAL THERAPIST NON-EXEMPT - 10/11/2020 15:42 EDT Mcfp Goals, OT Grooming LTG Grid Goal #1 Activity : Grooming Assist : Supervision or set up Date to Meet : 10/25/2020 EDT Goal Status : Initial goal Comment : standing at sink Virginia Gonzalez OCCUPATIONAL THERAPIST NON-EXEMPT - 10/11/2020 15:42 EDT Dressing, Lower Body LTG Grid Goal #1 Activity : Dressing, Lower Body Assist : Supervision or set up Date to Meet : 10/25/2020 EDT Goal Status : Initial goal Virginia Gonzalez OCCUPATIONAL THERAPIST NON-EXEMPT - 10/11/2020 15:42 EDT Toilet Transfer LTG Grid Goal #1 Activity : Toilet Transfer, Ambulatory Assist : Supervision or set up Date to Meet : 10/25/2020 EDT Goal Status : Initial goal Virginia Gonzalez OCCUPATIONAL THERAPIST NON-EXEMPT - 10/11/2020 15:42 EDT Treatment Note Subjective Comment : Pt agreeable to therapy session. Patient's Response to Treatment : Pt with decreased activity tolerance/fatigues easily. Additional Objective Information : Patient alert and oriented x4. Transferred supine to sit EOB with SBA (head of bed elevated). Able to maintain good static and dynamic sitting balance EOB. Min A to don socks. Sit to stand from EOB with CGA and hand held assist for stability. Sit to supine with SBA. Pt left with call light and all needs within reach. Assessment : Patient presents with low endurance/activity tolerance limiting his abilities with functional tasks. Patient would benefit from skilled OT to increase his independence with ADLs and functional transfers. Pts and pt expressed desire to go to rehab after hospital - pt would benefit from rehab stay prior to returning home. Plan for Treatment : See goals. Virginia Gonzalez OCCUPATIONAL THERAPIST NON-EXEMPT - 10/11/2020 15:42 EDT Pain Assessment Pain Scaled Used : 0-10 Pain scale Pain Score Pre-Intervention : 0 Virginia Gonzalez OCCUPATIONAL THERAPIST NON-EXEMPT - 10/11/2020 15:42 EDT Image 1 - Images currently included in the form version of this document have not been included in the text rendition version of the form. Anticipated Discharge Needs, OT/PT Anticipated Discharge to : Unit, rehabilitation Virginia Gonzalez OCCUPATIONAL THERAPIST NON-EXEMPT - 10/11/2020 15:42 EDT Hooks OT Charges OT Eval Low Complexity : 1 Virginia Gonzalez OCCUPATIONAL THERAPIST NON-EXEMPT - 10/11/2020 15:42 EDT Electronically signed by [facility] Conversion Field Project Manager Cerner at 06/29/2022 2:42 PM CDT documented in this encounter Plan of Treatment Upcoming Encounters Date Type Department Care Team (Late st Contact Info) Description 11/24/2024 2:00 PM EDT Office Visit [facility] [place] [address] [place] [address] Jalen Enciso MD [address] [place] [address] documented as of this encounter Visit Diagnoses Not on filedocumented in this encounter Care Teams Critical Care Physician Relationship Specialty Start Date End Date Kaylene Brooke MD [address] [place] [address] PCP - General General Internal Medicine 01/27/22 Farooq Marcus MD [address] [place] [address] PCP - General Family Medicine 02/27/22 documented as of this encounter
--- OUTSIDE RECORDS SUMMARY | 2024-11-21 21:24 | XMS_ITS | Encounter Summary ---
Author Organization [employer] ([place], [place], [place], [place]) Address [address] [place] [address] Care Team Providers Care Career Development Engineer Name Role Phone Kaylene Brooke MD Primary Care Provider [phone] Farooq Marcus MD Primary Care Provider [phone] Encounter Details Date Type Department Care Team (Late st Contact Info) Description 09/22/2020 Transcribed Document [facility] [place] Family [place] [facility] [place] [address] ProviderRyaray MD [address] [place] [address] Social History Tobacco Use Types Packs/Day Years Used Date Smoking Tobacco: Never Assessed Sex and Gender Information Value Date Recorded Sex Assigned at Not on file Legal Sex Male 5:14 PM CDT Gender Identity Not on file Sexual Orientation Not on file documented as of this encounter Miscellaneous Notes * Cerner Conversion Note - Historical ProviderMD - 09/22/2020 5:15 PM CDT Evaluation, Physical Therapy Entered On: 09/23/2020 12:00 EDT Performed On: 09/23/2020 10:51 EDT by ACOSTA REEVES, CHATO General Information, PT Visit Type, PT : Initial evaluation Patient Orders : Order Date Order Ordering 09/22/2020 17:15 PT Evaluation and Treatment Ordered By: CRISTINA LUNDBERG DO Active Diagnoses : 09/22/2020 12:00 Abdominal pain 09/22/2020 12:00 Acute pancreatitis without necrosis or infection, unspecified 09/22/2020 12:00 Non-ST elevation (NSTEMI) myocardial infarction 09/22/2020 12:00 Sepsis, unspecified organism Therapy Diagnosis, PT : Unsteady gait without assistive device. Onset of Problem, PT : 09/22/2020 EDT Admission Date : 09/22/2020 16:03 Co-treated by, PT : Occupational Therapist Personal Devices : Personal Devices No Devices Recorded Assistive Devices : Assistive Devices No Devices Recorded General Information Comment, PT : Dx: Sepsis secondary to PNA, abdominal pain, nausea, vomiting, temperature of 102, pancreatitis, NSTEMI Hx: esophageal cancer with chemo last given 09/17, PCI 2 months ago as well as pacemaker. ACOSTA REEVES, PT - 09/23/2020 11:52 EDT General Status Patient Received Status : Supine in bed Treatment Start Time : 09/23/2020 10:29 EDT Patient Left Status : Supine in bed, Family/Visitors at bedside, Communication board completed, All needs met and within reach Treatment End Time : 09/23/2020 10:51 EDT Treatment Time : 22 Minute(s) ACOSTA REEVES, PT - 09/23/2020 11:52 EDT History and Environment Living Situation, Therapy : Home Patient Lives With : Spouse Persons Providing Information : Patient Home Equipment Therapy, PT : None Home Setup : One story Stairs : Yes Stair Location(s) : Inside, Outside Inside Stairs, Number of Steps : 2 Outside Stairs, Number of Steps : 13 Railing Inside : No Railing Outside : No ACOSTA REEVES, PT - 09/23/2020 11:52 EDT Prior Level of Function PT GRID Prior LOF Ambulation, Household : Assist needed Prior LOF Ambulation, Community : Assist needed Prior LOF Bed Mobility : Assist needed Prior LOF Toileting : Assist needed Prior LOF Transfer : Assist needed ACOSTA REEVES, PT - 09/23/2020 11:52 EDT Prior LOF Assist with ADL Comment : says she just holds onto him if he gets up and walks around the house. They have no equipment at home and state they would be interested in looking into a Rwx. ACOSTA REEVES, PT - 09/23/2020 11:52 EDT Upper Extremity Right UE Active ROM : WFL Right UE Strength : WFL Left UE Active ROM : WFL Left UE Strength : WFL ACOSTA REEVES, PT - 09/23/2020 11:52 EDT Lower Extremity RLE Active ROM : WF LLE Active ROM : WFL ACOSTA REEVES, PT - 09/23/2020 11:52 EDT Right Lower Extremity MMT Knee Flexion (0-140) : 4/good Knee Extension (0-0) : 4/good Ankle Dorsiflexion (0-20) : 4/good Ankle Plantarflexion (0-45) : 4/good ACOSTA REEVES, PT - 09/23/2020 11:52 EDT Left Lower Extremity MMT Knee Flexion (0-140) : 4/good Knee Extension (0-0) : 4/good Ankle Dorsiflexion (0-20) : 4/good Ankle Plantarflexion (0-45) : 4/good ACOSTA REEVES, PT - 09/23/2020 11:52 EDT Functional Mobility Mobility Grid Bed Roll Left : Rehab Modified independence Bed Scooting : Rehab Modified independence Supine to Sit : Rehab Modified independence Sit to Stand : Supervision/set-up Stand to Sit : Supervision/set-up Sit to Supine : Rehab Modified independence ACOSTA REEVES PT - 09/23/2020 11:52 EDT Bed Mobility Scooting Device : Rails Supine to Sit Device : Rails Sit to Stand Device : Belt, gait, Walker, front wheel Stand to Sit Device : Belt, gait, Walker, front wheel ACOSTA REEVES, PT - 09/23/2020 11:52 EDT Gait Training/Assessment, PT Weight Bearing Status : Full Gait Assistance Level : Supervision Walking Distance : 375' Ambulatory Devices : Gait belt, Walker, front wheel Gait Deviations : Yes Left Lower Gait Deviation : Foot clearance, decreased Right Lower Gait Deviation : Foot clearance, decreased Gait Training Comment : Education had to be given on use of Rwx since he has never used one before and he required cueing to stay inside Rwx and to not bear down with BUE so much. ACOSTA REEVES, PT - 09/23/2020 11:52 EDT Cognition Assessment, PT Orientation : Oriented x 4 Attention Assessment : Present ACOSTA REEVES PT - 09/23/2020 11:52 EDT Edu Topics Physical Therapy Education Grid Bed Mobility Training : Returns demonstration Gait Training : Needs reinforcement Role of Physical Therapy : Verbalizes understanding Transfer Training : Returns demonstration Use of Assistive Device : Needs reinforcement ACOSTA REEVES, PT - 09/23/2020 11:52 EDT Indication Assesessment, PT Physical Therapy Indicated : Yes PT Problem List : Impaired, bed mobility, Impaired, endurance tolerance, Impaired, gait, Impaired, standing balance, Impaired, strength, Impaired, transfers Potential Barriers To Therapy : Acuity of Illness Rehabilitation Potential : Good ACOSTA REEVES, PT - 09/23/2020 11:52 EDT Plan of Care, PT PT Tx Plan/Goals Established w Patient : Yes PT Frequency Rehab : Five days per week PT Duration Rehab : Fourteen days PT Treatments Planned : Balance training, Bed mobility training, Gait training, Therapeutic exercises, Transfer training ACOSTA REEVES, PT - 09/23/2020 11:52 EDT Short Term Goals Mobility/Bed Mobility STG PT Grid Goal #1 Goal #2 Activity : Supine to sit Sit to stand Assist : Independent, complete Independent, modified Date to Meet : 09/30/2020 EDT 09/30/2020 EDT Goal Status : Initial goal Initial goal ACOSTA REEVES, PT - 09/23/2020 11:52 EDT ACOSTA REEVES, PT - 09/23/2020 11:52 EDT Ambulation STG Grid Goal #1 Device : Walker, front wheel Distance : 375' Assist : Independent, modified Date to Meet : 09/30/2020 EDT Goal Status : Intial Goal ACOSTA REEVES, PT - 09/23/2020 11:52 EDT Bilingual Speech Language Pathologist Goals Ambulation LTG Grid Goal #1 Device : Walker, front wheel Distance : 475' Assist : Independent, modified Date to Meet : 10/07/2020 EDT Goal Status : Intial Goal ACOSTA REEVES, PT - 09/23/2020 11:52 EDT Treatment Note Subjective Comment : Patient agrees to PTx. Nsg. Ok'd PTx. Patient's goal is to walk. Patient's Response to Treatment : patient was very receptive to education and is interested in having a Rwx at home to help him be more independent so he does not have to depend on his for everything. Additional Objective Information : patient was able to sit at edge of bed independently for ROM/MMT assessment. Patient was hooked to IV and [id number] (which he does not wear at home). Assessment : patient presents withd decreased independence and need for teaching of new assistive device. patient would benefit from continued skilled PT to work general mobility, strengthening, balance, and use of RWx to promote independence. Plan for Treatment : con't PTx. ACOSTA REEVES PT - 09/23/2020 11:52 EDT Pain Assessment Pain Scaled Used : 0-10 Pain scale Pain Score Pre-Intervention : 0 Pain Score During-Intervention : 0 Pain Score Post-Intervention. : 0 ACOSTA REEVES, PT - 09/23/2020 11:52 EDT Image 1 - Images currently included in the form version of this document have not been included in the text rendition version of the form. Anticipated Discharge Needs, OT/PT Anticipated Discharge to : Home, with home health (Comment: S1 [ACOSTA REEVES PT - 09/23/2020 11:52 EDT] ) Recommend Continued Therapy at Discharge : Yes ACOSTA REEVES PT - 09/23/2020 11:[address] [facility] PT Charges Gait Training Each 15 Min : 1 PT Eval Moderate Complexity : 1 ACOSTA REEVES PT - 09/23/2020 11:52 EDT documented in this encounter Plan of Treatment Upcoming Encounters Date Type Department Care Team (Late st Contact Info) Description 11/24/2024 2:00 PM EDT Office Visit [place] [facility] - [facility] [address] [place] [address] Jalen Enciso MD [address] [place] [address] documented as of this encounter Visit Diagnoses Not on filedocumented in this encounter Care Teams Career Development Engineer Relationship Specialty Start Date End Date Kaylene Brooke MD [address] [place] [address] PCP - General General Internal Medicine 01/27/22 Farooq Marcus MD [address], [place] [address] PCP - General Family Medicine 02/27/22 documented as of this encounter
--- OUTSIDE RECORDS SUMMARY | 2024-11-21 21:24 | XMS_ITS | Encounter Summary ---
Author Organization [employer] ([place], [place], [place], [place]) Address [address] [place] [address] Care Team Providers Care Bale Tie Machine Operator Name Role Phone Kaylene Brooke MD Primary Care Provider [phone] Farooq Marcus MD Primary Care Provider [phone] Encounter Details Date Type Department Care Team (Late st Contact Info) Description 10/13/2020 Transcribed Document [facility] [place] [facility] [place] [address] ProviderRayray MD [address] [place] [address] Social History Tobacco Use Types Packs/Day Years Used Date Smoking Tobacco: Never Assessed Sex and Gender Information Value Date Recorded Sex Assigned at Not on file Legal Sex Male 5:14 PM CDT Gender Identity Not on file Sexual Orientation Not on file documented as of this encounter Miscellaneous Notes * Cerner Conversion Note - Historical ProviderMD - 10/13/2020 1:29 PM CDT Discharge Summary, PT Entered On: 10/13/2020 13:30 EDT Performed On: 10/13/2020 13:29 EDT by MATIAS KERN PTA Discharge Summary Discharge Summary Provider Notified : Physical Therapy Reason for Discharge : Discharged from hospital Discharged to, Therapy : Home, with home health MATIAS KERN PTA - 10/13/2020 13:29 EDT Discharge Summary Comment, PT : Patient was mod indep for all transfer ambulates 600ft with RWx mod indep Patient has not met 1 LTG and would benefit from continued PT. Reviewed by and agreed to by PT BEBE DEJESUS, PT - 10/13/2020 15:43 EDT Short Term Goals Mobility/Bed Mobility STG PT Grid Goal #1 Activity : Sit to stand Assist : Independent, modified Equipment : Walker, front wheel Date to Meet : 10/18/2020 EDT Goal Status : Goal met Date Met : 10/12/2020 EDT MATIAS KERN, GUALBERTO - 10/13/2020 13:29 EDT Ambulation STG Grid Goal #1 Device : Walker, front wheel Distance : 150' Assist : Supervision or set-up Date to Meet : 10/18/2020 EDT Goal Status : Goal met Date Met : 10/12/2020 EDT MATIAS KERN PTA - 10/13/2020 13:29 EDT Detention Goals Ambulation LTG Grid Goal #1 Device : None Distance : 200' Assist : Supervision or set-up Date to Meet : 10/25/2020 EDT Goal Status : Not met MATIAS KERN PTA - 10/13/2020 13:29 EDT documented in this encounter Plan of Treatment Upcoming Encounters Date Type Department Care Team (Late st Contact Info) Description 11/24/2024 2:00 PM EDT Office Visit [place] [facility] - [facility] [address] [place] [address] Jalen Enciso MD [address] [facility] [address] [place] [address] documented as of this encounter Visit Diagnoses Not on filedocumented in this encounter Care Teams Bale Tie Machine Operator Relationship Specialty Start Date End Date Kaylene Brooke MD [address] [place] [address] PCP - General General Internal Medicine 01/27/22 Farooq Marcus MD [address] [place] [place] [address] PCP - General Family Medicine 02/27/22 documented as of this encounter
--- OUTSIDE RECORDS SUMMARY | 2024-11-21 21:24 | XMS_ITS | Encounter Summary ---
Author Organization [employer] ([place], [place], [place], [place]) Address [address] [place] [address] Care Team Providers Care Meter Changes Records Clerk Name Role Phone Kaylene Brooke MD Primary Care Provider [phone] Farooq Marcus MD Primary Care Provider [phone] Encounter Details Date Type Department Care Team (Late st Contact Info) Description 09/22/2020 Transcribed Document [facility] [place] [address] ProviderRayray MD [address] [place] [address] Social History Tobacco Use Types Packs/Day Years Used Date Smoking Tobacco: Never Assessed Sex and Gender Information Value Date Recorded Sex Assigned at Not on file Legal Sex Male 5:14 PM CDT Gender Identity Not on file Sexual Orientation Not on file documented as of this encounter Miscellaneous Notes * Cerner Conversion Note - Rayray ProviderMD - 09/22/2020 11:52 PM CDT Spiritual Care Assessment Entered On: 09/23/2020 8:22 EDT Performed On: 09/23/2020 7:55 EDT by TATIANA COULTER General Information Referred by : Patient Referral Reason Comment : Living Will Flight Reservations Manager Services Provided : Yes Flight Reservations Manager Services Provided Comment : Completed Living Will Ministry Provided to : Patient, Family/Significant other Baptism Preference : No listed preference TATIANA COULTER - 09/23/2020 8:16 EDT Interventions Advance Directive Information Provided : Yes Advance Directive Comment : Completed Living Will Emotional Support : Empathic/Engaged listening, Family/Significant other supported, Feelings expressed, Information provided Spiritual and Baptism : Spiritual/Baptism support provided Change, Adjustment and Loss : End of life discussion/care, Relationships/Community/Support system discussed Ethics, Advocacy and Referral : Supported patient's loved ones, Advocated for patient, Care now and/or in the future discussed, Resources provided TATIANA COULTER - 09/23/2020 8:16 EDT Outcomes Affect/Behavior Changed : Relaxed Appreciation Expressed : Yes Information Received and Understood : Yes Thoughts, Feelings and Emotions Exp. : Yes Supportive Relationships Described : , Family HEADTATIANA - 09/23/2020 8:16 EDT documented in this encounter Plan of Treatment Upcoming Encounters Date Type Department Care Team (Late st Contact Info) Description 11/24/2024 2:00 PM EDT Office Visit [place] [facility] - [facility] [address] [facility] [address] [place] [address] Jalen Enciso MD [address] [place] [address] documented as of this encounter Visit Diagnoses Not on filedocumented in this encounter Care Teams Meter Changes Records Clerk Relationship Specialty Start Date End Date Kaylene Brooke MD [address] [place] [address] PCP - General General Internal Medicine 01/27/22 Farooq Marcus MD [address] [facility] [place] [address] PCP - General Family Medicine 02/27/22 documented as of this encounter
--- OUTSIDE RECORDS SUMMARY | 2024-11-21 21:24 | XMS_ITS | Encounter Summary ---
Author Organization [employer] ([place], [place], [place], [place]) Address [address] [place] [address] Care Team Providers Care Reiki Practitioner Name Role Phone Kaylene Brooke MD Primary Care Provider [phone] Farooq Marcus MD Primary Care Provider [phone] Encounter Details Date Type Department Care Team (Late st Contact Info) Description 10/09/2020 Transcribed Document [facility] [place] [address] [place] [address] ProviderRayray MD [address] [place] [address] Social History Tobacco Use Types Packs/Day Years Used Date Smoking Tobacco: Never Assessed Sex and Gender Information Value Date Recorded Sex Assigned at Not on file Legal Sex Male 5:14 PM CDT Gender Identity Not on file Sexual Orientation Not on file documented as of this encounter Miscellaneous Notes * Cerner Conversion Note - Rayray ProviderMD - 10/09/2020 4:34 PM CDT Consult Phone Call Documentation Entered On: 10/10/2020 9:11 EDT Performed On: 10/10/2020 8:00 EDT by Zaida Cortez RN Phone Call for Consults Consult Phone Call/Page Attempt : First call Provider Team Notified Name : Palliative medicine Date and Time Call Returned : 10/10/2020 9:10 EDT Physician Returning Call : AMBERLY BARBOSA APRN Noble, Maggie, RN - 10/10/2020 9:10 EDT documented in this encounter Plan of Treatment Upcoming Encounters Date Type Department Care Team (Late st Contact Info) Description 11/24/2024 2:00 PM EDT Office Visit [place] [facility] - [place] [place] [address] Jalen Enciso MD [address] [place] [address] documented as of this encounter Visit Diagnoses Not on filedocumented in this encounter Care Teams Reiki Practitioner Relationship Specialty Start Date End Date Kaylene Brooke MD [address] [place] [address] PCP - General General Internal Medicine 01/27/22 Farooq Marcus MD [address] [facility] [place] [address] PCP - General Family Medicine 02/27/22 documented as of this encounter
--- OUTSIDE RECORDS SUMMARY | 2024-11-21 21:24 | XMS_ITS | Encounter Summary ---
Author Organization [email or web address] ([place], [place], [place], [place]) Address [address] [place] [address] Care Team Providers Care Head Chef Name Role Phone Kaylene Brooke MD Primary Care Provider [phone] Farooq Marcus MD Primary Care Provider [phone] Encounter Details Date Type Department Care Team (Late st Contact Info) Description 10/12/2020 Transcribed Document [facility] [place] [address] [place] [address] ProviderRayray MD [address] [place], [place] [address] Social History Tobacco Use Types Packs/Day Years Used Date Smoking Tobacco: Never Assessed Sex and Gender Information Value Date Recorded Sex Assigned at Not on file Legal Sex Male 5:14 PM CDT Gender Identity Not on file Sexual Orientation Not on file documented as of this encounter Miscellaneous Notes * Cerner Conversion Note - Rayray San MD - 10/12/2020 8:07 AM CDT Patient: DOYLE DEL ANGEL Age: 84 years Sex: Male : 1935 Associated Diagnoses: None Author: JALEN ENCISO MD-ONC Attachments: None Subjective Chief complaint Chief complaint Feels better. EGD today. 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 No chemotherapy for 3 weeks. Course Improving Orders EGD. Maybe reglan helped. No otherreceomendations. documented in this encounter Plan of Treatment Upcoming Encounters Date Type Department Care Team (Late st Contact Info) Description 11/24/2024 2:00 PM EDT Office Visit [place] [facility] - [facility] [address] [facility] [address] [place] [address] Jalen Enciso MD [address] [facility] [address] [place] [address] documented as of this encounter Visit Diagnoses Not on filedocumented in this encounter Care Teams Head Chef Relationship Specialty Start Date End Date Kaylene Brooke MD [address] [place] [address] PCP - General General Internal Medicine 01/27/22 Farooq Marcus MD [address] [place] [address] PCP - General Family Medicine 02/27/22 documented as of this encounter
--- OUTSIDE RECORDS SUMMARY | 2024-11-21 21:24 | XMS_ITS | Encounter Summary ---
Author Organization [employer] ([place], [place], [place], [place]) Address [address] [place] [address] Care Team Providers Care Second Grade Teacher Name Role Phone Kaylene Brooke MD Primary Care Provider [phone] Farooq Marcus MD Primary Care Provider [phone] Encounter Details Date Type Department Care Team (Late st Contact Info) Description 09/22/2020 Transcribed Document [facility] [place] Family Medicine [address] [place] [address] ProviderRayray MD [address] [place], [place] [address] Social History Tobacco Use Types Packs/Day Years Used Date Smoking Tobacco: Never Assessed Sex and Gender Information Value Date Recorded Sex Assigned at Not on file Legal Sex Male 5:14 PM CDT Gender Identity Not on file Sexual Orientation Not on file documented as of this encounter Miscellaneous Notes * Cerner Conversion Note - Historical ProviderMD - 09/22/2020 5:15 PM CDT Evaluation, Occupational Therapy Entered On: 09/23/2020 11:05 EDT Performed On: 09/23/2020 10:50 EDT by PHYLLIS VIEIRA, OTR/Tre General Information, OT Visit Type, OT : Initial evaluation Patient Orders : Order Date Order Ordering 09/22/2020 17:15 OT Evaluation and Treatment Ordered By: CRISTINA LUNDBERG DO Active Diagnoses : 09/22/2020 12:00 Abdominal pain 09/22/2020 12:00 Acute pancreatitis without necrosis or infection, unspecified 09/22/2020 12:00 Non-ST elevation (NSTEMI) myocardial infarction 09/22/2020 12:00 Sepsis, unspecified organism Therapy Diagnosis, OT : decreased I with ADLs due to weakness Onset of Problem, OT : 09/22/2020 EDT Admission Date : 09/22/2020 16:03 Co-treated by, OT : Physical Therapist Personal Devices : Personal Devices No Devices Recorded Assistive Devices : Assistive Devices No Devices Recorded General Information Comment, OT : PATIENT HERE FOR NSTEMI/PNA ESOPHAGEAL CA WITH CHEMO PHYLLIS VIEIRA OTR/Tre - 09/23/2020 11:03 EDT General Status Patient Received Status : Supine in bed Treatment Start Time : 09/23/2020 10:30 EDT Patient Left Status : Supine in bed, Family/Visitors at bedside, All needs met and within reach RN/PCT Informed Comment : Maria E TESFAYEed eval this AM Treatment End Time : 09/23/2020 10:50 EDT Treatment Time : 20 Minute(s) PHYLLIS VIEIRA OTR/Tre 09/23/2020 11:03 EDT History and Environment, OT Living Situation, Therapy : Home Patient Lives With : Spouse Persons Providing Information : Patient Home Equipment, Therapy : None Home Setup : One story Stairs : Yes Stair Location(s) : Inside, Outside Inside Stairs, Number of Steps : 2 Outside Stairs, Number of Steps : 13 Railing Inside : No Railing Outside : No PHYLLIS VIEIRA OTR/Tre - 09/23/2020 15:46 EDT Prior LOF Bathing, OT : Independent Prior LOF Bed Mobility : Independent Prior LOF Upper Body Dressing, OT : Independent Prior LOF Lower Body Dressing, OT : Independent Prior LOF Toileting : Independent Prior LOF Transfer : Independent Prior LOF Grooming, OT : Independent Prior LOF for IADLs, OT : Assist needed (Comment: assists recently due to chemo and side effects [PHYLLIS VIEIRA OTR/Tre 09/23/2020 15:46 EDT] ) PHYLLIS VIEIRA OTR/Tre 09/23/2020 15:46 EDT Upper Extremity Upper Extremity Dominance : Right Right UE Active ROM : WFL Right UE Strength : WFL Left UE Active ROM : WFL Left UE Strength : WFL Upper Extremity Comment : B shoulder are impaired and painful but still overall WFL and functional strength PHYLLIS VIEIRA, CASSANDRAR/L 09/23/2020 15:46 EDT Self Care/Home Management, OT Self Feeding Assist Level, OT : Independent, complete Grooming Assist Level, OT : Independent, complete Bathing Assist Level, OT : Assist, minimal Upper Body Dressing Assist Level, OT : Independent, complete Lower Body Dressing Assist Level, OT : Assist, minimal Toileting Assist Level : Supervision or set-up Toilet Transfer Assist Level : Supervision or set-up Toilet Transfer Device : Belt, gait, Walker, rolling PHYLLIS VIEIRA, OTR/L 09/23/2020 15:46 EDT Functional Mobility Mobility Grid Bed Roll Left : Supervision/set-up Bed Roll Right : Supervision/set-up Bed Scooting : Supervision/set-up Supine to Sit : Supervision/set-up Sit to Stand : Supervision/set-up Stand to Sit : Supervision/set-up Sit to Supine : Supervision/set-up PHYLLIS VIEIRA, CASSANDRAR/L 09/23/2020 15:46 EDT Neurological/Sensory Overall Sensory Response : Intact PHYLLIS VIEIRA OTR/L 09/23/2020 15:46 EDT Cognition Assessment, OT Orientation : Oriented x 4 Cognition Assessment, OT : Intact PHYLLIS VIEIRA, OTR/L 09/23/2020 15:46 EDT Visual/Perceptual/Vestibular, OT Vision Assessment, OT : Intact PHYLLIS VIEIRA, OTR/09/23/2020 15:46 EDT Indication Assessment, OT Occupational Therapy Indicated : Yes Problem List, OT : Impaired, endurance tolerance, Impaired functional mobility Potential Barriers, OT : None evident Rehabilitation Potential, OT : Good PHYLLIS VIEIRA, CASSANDRAR/L 09/23/2020 15:46 EDT Plan of Care, OT OT Tx Plan/Goals Established w Patient : Yes OT Frequency Rehab : Five days per week OT Duration Rehab : Fourteen days OT Treatments Planned : Activities of daily living, Safety education, Therapeutic activities PHYLLIS VIEIRA OTR/09/23/2020 15:46 EDT Patient Financial Specialist Goals, OT Bathing LTG Grid Goal #1 Activity : Bathing Assist : Independent, modified Date to Meet : 10/07/2020 EDT Goal Status : Initial goal Comment : with AE as needed PHYLLIS VIEIRA OTR/Tre - 09/23/2020 15:46 EDT Dressing, Lower Body LTG Grid Goal #1 Activity : Dressing, Lower Body Assist : Independent, complete Date to Meet : 10/07/2020 EDT Goal Status : Initial goal PHYLLIS VIEIRA OTR/Tre - 09/23/2020 15:46 EDT Toilet Transfer LTG Grid Goal #1 Activity : Toilet Transfer, Ambulatory Assist : Independent, modified Date to Meet : 10/07/2020 EDT Goal Status : Initial goal PHYLLIS VIEIRA OTR/Tre - 09/23/2020 15:46 EDT Treatment Note Subjective Comment : Agreeable Patient's Response to Treatment : Resting in supine, no complaints Additional Objective Information : Came to EOB for MMT and LB dressing. Stood and ambulated with RW into hallway, completed entire loop of [place] with no rest, then back to supine with needs in reach. Assessment : See goals Plan for Treatment : See goals PHYLLIS VIEIRA OTR/Tre - 09/23/2020 15:46 EDT Pain Assessment Pain Scaled Used : 0-10 Pain scale Pain Score During-Intervention : 0 PHYLLIS VIEIRA OTR/Tre - 09/23/2020 15:46 EDT Image 1 - Images currently included in the form version of this document have not been included in the text rendition version of the form. Anticipated Discharge Needs, OT/PT Anticipated Discharge to : Home, with family care Recommend Continued Therapy at Discharge : No PHYLLIS VIEIRA OTR/Tre - 09/23/2020 15:[address] [facility] OT Charges OT Eval Moderate Complexity : 1 PHYLLIS VIEIRA OTR/Tre - 09/23/2020 15:46 EDT documented in this encounter Plan of Treatment Upcoming Encounters Date Type Department Care Team (Late st Contact Info) Description 11/24/2024 2:00 PM EDT Office Visit [facility] - [place] [address] [place] [address] Jalen Enciso MD [address] [place] [address] documented as of this encounter Visit Diagnoses Not on filedocumented in this encounter Care Teams Second Grade Teacher Relationship Specialty Start Date End Date Kaylene Brooke MD [address] [place] [address] PCP - General General Internal Medicine 01/27/22 Farooq Marcus MD [address] [place] [address] PCP - General Family Medicine 02/27/22 documented as of this encounter
--- OUTSIDE RECORDS SUMMARY | 2024-11-21 21:24 | XMS_ITS | Encounter Summary ---
Author Organization [employer] ([place], [place], [place], [place]) Address [address] [place] [address] Care Team Providers Care Card Mounter Name Role Phone Kaylene Brooke MD Primary Care Provider [phone] Farooq Marcus MD Primary Care Provider [phone] Encounter Details Date Type Department Care Team (Late st Contact Info) Description 09/22/2020 Transcribed Document [facility] [place] [facility] [place] [address] ProviderRayray MD [address] [place], [place] [address] Social History Tobacco Use Types Packs/Day Years Used Date Smoking Tobacco: Never Assessed Sex and Gender Information Value Date Recorded Sex Assigned at Not on file Legal Sex Male 5:14 PM CDT Gender Identity Not on file Sexual Orientation Not on file documented as of this encounter Miscellaneous Notes * Cerner Conversion Note - Rayray ProviderMD - 09/22/2020 9:28 AM CDT ED Triage Entered On: 09/22/2020 9:50 EDT Performed On: 09/22/2020 9:45 EDT by Anu Evans RN ED Triage Across the Room Chief Complaint : c/o generalized abdominal pain, n/v since last night. Temp 102 yesterday per . 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 Enciso. Triage Date/Time : 09/22/2020 9:45 EDT Anu Evans RN - 09/22/2020 9:45 EDT DCP GENERIC CODE Tracking Acuity : 2 - Emergent Tracking Group : [facility] ED Anu Evans RN - 09/22/2020 9:45 EDT Mode of Arrival : Wheelchair Transported to ED by : Private vehicle To Room Via : Wheelchair Accompanied By : Spouse ED Vital Signs : Document Height & Weight : Document ED Allergies : Document ED Reason for Visit : Document Anu Evans RN - 09/22/2020 9:45 EDT Infectious Disease History Has the patient [...] Chicken pox/Shingles, Measles Tuberculosis Symptoms : None Anu Evans RN - 09/22/2020 9:45 EDT Vital Signs ED Temperature Source : Oral Temperature Mode : Fahrenheit Temperature, Fahrenheit : 97.7 Deg F ED Pain : Yes Clinical Temperature, C : 36.5 Deg C Oxygen Therapy Mode : Room air Peripheral Pulse Rate : 96 bpm Respiratory Rate : 16 Breaths/Min Systolic Blood Pressure : 118 mmHg Diastolic Blood Pressure : 56 mmHg (LOW) Oxygen Saturation : 91 % (LOW) Anu Evans RN - 09/22/2020 9:45 EDT Allergy (As Of: 09/22/2020 09:50:12 EDT) Allergies (Active) No Known Allergies Estimated Onset Date: Unspecified ; Created By: TIN SOTO RN; Reaction Status: Active ; Category: Drug ; Substance: No Known Allergies ; Type: Allergy ; Updated By: TIN SOTO RN; Reviewed Date: 04/22/2014 15:27 EST Diagnosis Control ED (As Of: 09/22/2020 09:50:12 EDT) Problems(Active) Anxiety disorder (SNOMED CT :073102164 ) Name of Problem: Anxiety disorder ; Recorder: ERIKA AKERS APRN-INT; Confirmation: Confirmed ; Classification: Medical ; Code: [id number] ; Contributor System: [employer] ; Last Updated: 04/22/2014 0:56 EST ; Life Cycle Date: 04/22/2014 ; Life Cycle Status: Active ; Responsible Provider: ERIKA AKERS APRN-INT; Vocabulary: SNOMED CT At risk for sleep apnea (IMO :09869879 ) Name of Problem: At risk for sleep apnea ; Recorder: SYSTEM, SYSTEM; Confirmation: Confirmed ; Classification: Medical ; Code: [id number] ; Last Updated: 09/08/2020 8:44 EDT ; Life Cycle Date: 09/08/2020 ; Life Cycle Status: Active ; Vocabulary: IMO Chest pain with high risk for cardiac etiology (SNOMED CT :66176766 ) Name of Problem: Chest pain with high risk for cardiac etiology ; Recorder: ERIKA AKERS APRN-INT; Confirmation: Confirmed ; Classification: Medical ; Code: [id number] ; Contributor System: [employer] ; Last Updated: 04/22/2014 0:56 EST ; Life Cycle Status: Active ; Responsible Provider: ERIKA AKERS APRN-INT; Vocabulary: SNOMED CT Esophagus cancer (SNOMED CT :037052571 ) Name of Problem: Esophagus cancer ; Recorder: JUVE GILBERT Rn-Clinical Coordinator I; Confirmation: Confirmed ; Classification: Patient Stated ; Code: [id number] ; Contributor System: [employer] ; Last Updated: 09/08/2020 8:36 EDT ; Life Cycle Date: 09/08/2020 ; Life Cycle Status: Active ; Vocabulary: SNOMED CT Hyperlipidemia (SNOMED CT :84656800 ) Name of Problem: Hyperlipidemia ; Recorder: ERIKA BOYER MD-EMR; Confirmation: Confirmed ; Classification: Medical ; Code: [id number] ; Contributor System: [employer] ; Last Updated: 04/21/2014 20:55 EST ; Life Cycle Date: 04/21/2014 ; Life Cycle Status: Active ; Responsible Provider: ERIKA BOYER MD-EMR; Vocabulary: SNOMED CT Leg neuralgia (SNOMED CT :82437304 ) Name of Problem: Leg neuralgia ; Recorder: ERIKA AKERS APRN-INT; Confirmation: Confirmed ; Classification: Medical ; Code: [id number] ; Contributor System: [employer] ; Last Updated: 04/22/2014 0:56 EST ; Life Cycle Date: 04/22/2014 ; Life Cycle Status: Active ; Responsible Provider: AKERS, ERIKA BOBBY, EMPLOYEE COUNSELOR-INT; Vocabulary: SNOMED CT Myocardial infarction (SNOMED CT :82784011 ) Name of Problem: Myocardial infarction ; Recorder: JUVE GILBERT Rn-Clinical Coordinator I; Confirmation: Confirmed ; Classification: Patient Stated ; Code: [id number] ; Contributor System: [employer] ; Last Updated: 09/08/2020 8:36 EDT ; Life Cycle Date: 09/08/2020 ; Life Cycle Status: Active ; Vocabulary: SNOMED CT Diagnoses(Active) Abdominal pain Date: 09/22/2020 ; Diagnosis Type: Reason For Visit ; Confirmation: Complaint of ; Clinical Dx: Abdominal pain ; Classification: Medical ; Clinical Service: Non-Specified ; Code: PNED ; Probability: 0 ; Diagnosis Code: [id number] ED Height and Weight Height Source : Stated Height Entry Format : [place] Height, Feet : 6 ft(Converted to: 183 cm, 72 Inch) Height, Inches : 0 Inch(Converted to: 0 ft 0 Inch, 0.00 cm) Clinical Height : 182.88 cm Weight Source, ED : Critical estimated dosing weight Weight Entry Format : [place] Weight, Pounds : 175 lb Clinical Dosing Weight : 79.55 kg Body Surface Area (BSA) : 2.01 m2 Body Mass Index : 23.8 kg/m2 [place] Body Weight (IBW) : 76.59 kg Anu Evans RN - 09/22/2020 9:45 EDT Pain Assessment Pain Assessment : Initial assessment Pain Scale Used : 0-10 Scale Anu Evans RN - 09/22/2020 9:45 EDT Pain Scale Intensity : 5 Anu Evans RN - 09/22/2020 9:45 EDT Image 4 - Images currently included in the form version of this document have not been included in the text rendition version of the form. documented in this encounter Plan of Treatment Upcoming Encounters Date Type Department Care Team (Late st Contact Info) Description 11/24/2024 2:00 PM EDT Office Visit [facility] On[facility] - [place] [address] [place] [address] Jalen Enciso MD [address] [facility] [address] [place] [address] documented as of this encounter Visit Diagnoses Not on filedocumented in this encounter Care Teams Card Mounter Relationship Specialty Start Date End Date Kaylene Brooke MD [address] [place] [address] PCP - General General Internal Medicine 01/27/22 Farooq Marcus MD [address] [place] [address] PCP - General Family Medicine 02/27/22 documented as of this encounter
--- OUTSIDE RECORDS SUMMARY | 2024-11-21 21:24 | XMS_ITS | Encounter Summary ---
Author Organization [employer] ([place], [place], [place], [place]) Address [address] [place] [address] Care Team Providers Care Business Asst Name Role Phone Kaylene Brooke MD Primary Care Provider [phone] Farooq Marcus MD Primary Care Provider [phone] Encounter Details Date Type Department Care Team (Late st Contact Info) Description 10/10/2020 Transcribed Document [facility] [place] Family Medicine [address] [place] [address] ProviderRayray MD [address] [place] [address] Social History Tobacco Use Types Packs/Day Years Used Date Smoking Tobacco: Never Assessed Sex and Gender Information Value Date Recorded Sex Assigned at Not on file Legal Sex Male 5:14 PM CDT Gender Identity Not on file Sexual Orientation Not on file documented as of this encounter Miscellaneous Notes * Cerner Conversion Note - Rayray ProviderMD - 10/10/2020 8:58 AM CDT UM Authorization Entered On: 10/10/2020 8:59 EDT Performed On: 10/10/2020 8:58 EDT by TERESA GUZMÁN Rn-Utilization Review Primary Insurance Authorization Authorization and Policy Numbers : Insurance 1 Health Plan: MEDICARE Policy Number: [id number] Authorization Number: Insurance 2 Health Plan: [employer] Medicare Supplement Policy Number: [id number] Authorization Number: Insurance Primary Name : MEDICARE Policy Number: [id number] [employer] Medicare Supplement Policy Number: [id number] Historical Authorization Comments-Primary : No Authorization Comments Found TERESA GUZMÁN, Rn-Utilization Review - 10/10/2020 8:58 EDT Electronically signed by [facility] Conversion Per Diem Physical Therapist Assistant Cerner at 06/29/2022 2:26 PM CDT documented in this encounter Plan of Treatment Upcoming Encounters Date Type Department Care Team (Late st Contact Info) Description 11/24/2024 2:00 PM EDT Office Visit [facility] - [facility] [address] [place] [address] Jalen Enciso MD [address] [place] [address] documented as of this encounter Visit Diagnoses Not on filedocumented in this encounter Care Teams Business Asst Relationship Specialty Start Date End Date Kaylene Brooke MD [address] [place] [address] PCP - General General Internal Medicine 01/27/22 Farooq Marcus MD [address] [place] [address] PCP - General Family Medicine 02/27/22 documented as of this encounter
--- OUTSIDE RECORDS SUMMARY | 2024-11-21 21:24 | XMS_ITS | Encounter Summary ---
Author Organization [employer] ([place], [place], [place], [place]) Address [address] [place] [address] Care Team Providers Care Photography Intern Name Role Phone Kaylene Brooke MD Primary Care Provider [phone] Farooq Marcus MD Primary Care Provider [phone] Encounter Details Date Type Department Care Team (Late st Contact Info) Description 09/22/2020 Transcribed Document [facility] [place] Family Medicine [facility] [place] [address] ProviderRayray MD [address] [place] [address] Social History Tobacco Use Types Packs/Day Years Used Date Smoking Tobacco: Never Assessed Sex and Gender Information Value Date Recorded Sex Assigned at Not on file Legal Sex Male 5:14 PM CDT Gender Identity Not on file Sexual Orientation Not on file documented as of this encounter Miscellaneous Notes * Cerner Conversion Note - Rayray San MD - 09/22/2020 11:35 AM CDT Rapid Response Team Documentation Entered On: 09/22/2020 12:24 EDT Performed On: 09/22/2020 11:35 EDT by MYCHAL NAM RN Rapid Response Event Rapid Response Event Intiated By : Hospital Staff Rapid Response Team Initiation Reason : Positive SIRS screen Rapid Response Event Location Type : Emergency department Rapid Response Team Initiation Reason Details : ER 10 Rapid Response Admission Diagnosis : Abdominal pain Abdominal pain Rapid Response Medical Background : Anxiety disorder (Medical) At risk for sleep apnea (Medical) Chest pain with high risk for cardiac etiology (Medical) Esophagus cancer (Patient Stated) Hyperlipidemia (Medical) Leg neuralgia (Medical) Myocardial infarction (Patient Stated) Rapid Response Allergies : Substance Category Reactions Severity No Known Allergies Drug Rapid Response Recent Vital Signs : 09/22/2020 09:45 Systolic Blood Pressure 118 09/22/2020 09:45 Diastolic Blood Pressure 56 09/22/2020 11:30 Heart Rate Monitored 88 09/22/2020 11:30 Respiratory Rate 20 09/22/2020 09:45 Temperature, Fahrenheit 97.7 09/22/2020 11:30 Oxygen Saturation 92 Rapid Response Recent Lab Results : 09/22/2020 10:13 Sodium Level 138 (136-146) 09/22/2020 10:13 Potassium Level 4.0 (3.5-5.1) 09/22/2020 10:13 Calcium Level 9.0 (8.4-10.1) 09/22/2020 10:13 Chloride Level 103 (102-112) 09/22/2020 10:13 Carbon Dioxide Level 28 (21-32) 09/22/2020 10:13 Blood Urea Nitrogen 16 (7-22) 09/22/2020 10:13 Creatinine Level 1.30 (0.70-1.30) 09/22/2020 10:13 Hgb LOW 11.3 (13.5-17.3) 09/22/2020 10:13 Hct LOW 35.5 (40.1-51.0) 09/22/2020 10:13 RBC LOW 3.73 (4.20-5.70) 09/22/2020 10:13 WBC HI 12.8 (3.6-9.5) 09/22/2020 10:13 Platelet Count 189 (163-369) 09/22/2020 10:13 Lactic Acid Level CRIT 2.8 (0.4-2.0) 09/22/2020 10:13 Troponin I Ultra CRIT 0.795 (0.015-0.045) 09/22/2020 10:13 Lipase Level HI 5762 (73-393) Weight/BMI : Clinical Weight/BMI CLINICALWEIGHT: 79.55 kg (09/22/20 09:45:00) Body Mass Index: 23.8 kg/m2 (09/22/20 09:45:00) Rapid Response Team Recommendation/Response : postivie Sepsis screen, lactic elevated, IV bolus given, no pressors needed at this time, antibiotics ordered Patient Condition at End of Event : No S/S of Acute Distress Patient Disposition Post Event : No change in location/level of care Rapid Response Photography Intern #1 : MYCHAL NAM, RN MYCHAL NAM, RN - 09/22/2020 12:21 EDT Electronically signed by [facility] Conversion Tub Rider Cerner at 06/29/2022 2:15 PM CDT documented in this encounter Plan of Treatment Upcoming Encounters Date Type Department Care Team (Late st Contact Info) Description 11/24/2024 2:00 PM EDT Office Visit [place] [facility] - [facility] [address] [place] [address] Jalen Enciso MD [address] [facility] [address] [place] [address] documented as of this encounter Visit Diagnoses Not on filedocumented in this encounter Care Teams Photography Intern Relationship Specialty Start Date End Date Kaylene Brooke MD [address] [place] [address] PCP - General General Internal Medicine 01/27/22 Farooq Marcus MD [address] [address] PCP - General Family Medicine 02/27/22 documented as of this encounter
--- OUTSIDE RECORDS SUMMARY | 2024-11-21 21:24 | XMS_ITS | Encounter Summary ---
Author Organization [employer] ([place], [place], [place], [place]) Address [address] [place] [address] Care Team Providers Care Shredded Filler Cigar Maker Machine Name Role Phone Kaylene Brooke MD Primary Care Provider [phone] Farooq Marcus MD Primary Care Provider [phone] Encounter Details Date Type Department Care Team (Late st Contact Info) Description 10/10/2020 Transcribed Document [facility] [place] Family Medicine [address] [place] [address] ProviderRayray MD [address] [place] [address] Social History Tobacco Use Types Packs/Day Years Used Date Smoking Tobacco: Never Assessed Sex and Gender Information Value Date Recorded Sex Assigned at Not on file Legal Sex Male 5:14 PM CDT Gender Identity Not on file Sexual Orientation Not on file documented as of this encounter Miscellaneous Notes * Cerner Conversion Note - Rayray ProviderMD - 10/10/2020 9:30 AM CDT Education-General Entered On: 10/10/2020 9:31 EDT Performed On: 10/10/2020 9:30 EDT by Zaida Cortez RN Teaching/Learning Assessment Barriers To Learning : None evident Individuals Taught : Patient, Spouse Readiness to Learn : Cooperative Readiness to Learn : Explanation Learning Style Preferences Patient : Verbal explanation Learning Style Preferences Family : Verbal explanation Zaida Cortez RN - 10/10/2020 9:30 EDT Adult General Education General Education Peds Grid Laboratory Studies : Verbalizes understanding Nutrition/Diet : Verbalizes understanding Oral Care : Verbalizes understanding Ed-[place] to bed, light, tv, call device : Verbalizes understanding Pain Management : Verbalizes understanding Physical Limitations : Verbalizes understanding Siderails use/risks : Verbalizes understanding Telemetry Monitoring : Verbalizes understanding Treatments/Procedures/Tests : Verbalizes understanding Tubes/Drains/IV's : Verbalizes understanding Turn/Cough/Deep Breathe : Verbalizes understanding Unit Procedures : Verbalizes understanding When to Call Health Care Provider : Verbalizes understanding Zaida Cortez RN - 10/10/2020 9:30 EDT documented in this encounter Plan of Treatment Upcoming Encounters Date Type Department Care Team (Late st Contact Info) Description 11/24/2024 2:00 PM EDT Office Visit [facility] [place] [address] [place] [address] Jalen Enciso MD [address] [facility] [address] [place] [address] documented as of this encounter Visit Diagnoses Not on filedocumented in this encounter Care Teams Shredded Filler Cigar Maker Machine Relationship Specialty Start Date End Date Kaylene Brooke MD [address] [place] [address] PCP - General General Internal Medicine 01/27/22 Farooq Marcus MD [address] [place] [address] PCP - General Family Medicine 02/27/22 documented as of this encounter
--- OUTSIDE RECORDS SUMMARY | 2024-11-21 21:24 | XMS_ITS | Encounter Summary ---
Author Organization [email or web address] ([place], [place], [place], [place]) Address [address] [place] [address] Care Team Providers Care Telegraph Inspector Name Role Phone Kaylene Brooke MD Primary Care Provider [phone] Farooq Marcus MD Primary Care Provider [phone] Encounter Details Date Type Department Care Team (Late st Contact Info) Description 09/22/2020 Transcribed Document [facility] [place] Family [facility] [place] [address] ProviderRayray MD [address] [place], [place] [address] Social History Tobacco Use Types Packs/Day Years Used Date Smoking Tobacco: Never Assessed Sex and Gender Information Value Date Recorded Sex Assigned at Not on file Legal Sex Male 5:14 PM CDT Gender Identity Not on file Sexual Orientation Not on file documented as of this encounter Miscellaneous Notes * Cerner Conversion Note - Rayray ProviderMD - 09/22/2020 5:45 PM CDT Pain Assessment Entered On: 09/23/2020 2:39 EDT Performed On: 09/23/2020 0:38 EDT by Sean Guidry Rn Intervention Information: oxyCODONE Performed by Sean Guidry Rn on 09/22/2020 23:38:00 EDT oxyCODONE,10mg Oral,Pain (Moderate 4-6) Pain Assessment Pain Assessment : Follow-up assessment Pain Scale Goal : 2 Pain Improved by Intervention : Yes Sean Guidry Rn - 09/23/2020 2:39 EDT documented in this encounter Plan of Treatment Upcoming Encounters Date Type Department Care Team (Late st Contact Info) Description 11/24/2024 2:00 PM EDT Office Visit [facility] - [place] [address] [place] [address] Jalen Enciso MD [address] [place] [address] documented as of this encounter Visit Diagnoses Not on filedocumented in this encounter Care Teams Telegraph Inspector Relationship Specialty Start Date End Date MendyKaylene MD [address] [place] [address] PCP - General General Internal Medicine 01/27/22 Fraooq Marcus MD [address] [place] [address] PCP - General Family Medicine 02/27/22 documented as of this encounter
--- OUTSIDE RECORDS SUMMARY | 2024-11-21 21:24 | XMS_ITS | Encounter Summary ---
Author Organization [employer] ([place], [place], [place], [place]) Address [address] [place] [address] Care Team Providers Care Drug Safety Physician Name Role Phone Farooq Marcus MD Primary Care Provider [phone] Reason for Visit * Reason Onset Date Comments Appointment 11/21/2024 Encounter Details Date Type Department Care Team (Late st Contact Info) Description 11/21/2024 Telephone [facility] [address] [facility] [address] [place] [address] Jalen Enciso MD [address] [place] [place] [address] [place] [address] Appointment Social History Tobacco Use Types Packs/Day Years [...] Date Scotty rded Speak language other than Wallisian at home Not on file 03/22/2023 Want [...] 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 Not on file Not on file documented as of this encounter Miscellaneous Notes * Telephone Encounter - Elsy Lopez - 11/21/2024 2:08 PM EDT Attempted to call pt to confirm appt on 11/24/2024, pt voicemail was not set up documented in this encounter Plan of Treatment Upcoming Encounters Date Type Department Care Team (Late st Contact Info) Description 11/24/2024 2:00 PM EDT [facility] [address] [place] [address] Jalen Enciso MD [address] [facility] [address] [place] [address] documented as of this encounter Visit Diagnoses Not on filedocumented in this encounter Care Teams Drug Safety Physician Relationship Specialty Start Date End Date Farooq Marcus MD [address] [place] [address] PCP - General Family Medicine 02/27/22 documented as of this encounter
--- OUTSIDE RECORDS SUMMARY | 2024-11-21 21:24 | XMS_ITS | Encounter Summary ---
Author Organization [employer] ([place], [place], [place], [place]) Address [address] [place] [address] Care Team Providers Care Art Dealer Name Role Phone Kaylene Brooke MD Primary Care Provider [phone] Farooq Marcus MD Primary Care Provider [phone] Encounter Details Date Type Department Care Team (Late st Contact Info) Description 09/22/2020 Transcribed Document [facility] [place] Family Medicine [facility] [place] [address] ProviderRayray MD [address] [place] [address] Social History Tobacco Use Types Packs/Day Years [...] Consult Phone Call Documentation Entered On: 09/23/2020 9:18 EDT Performed On: 09/22/2020 16:00 EDT by Pauline Leavitt Phone Call for Consults Consult Phone Call/Page Attempt : First call Consult Reason : pancreatitis elevated bilruben Physician Requesting Consult : CRISTINA LUNDBERG DO Physician Requested for Consult : MIKIE MCQUEEN MD Provider Service Notified Name : Gastroenterology Date and Time Call Returned : 09/23/2020 9:17 EDT Consult, Additional Information : spoke to Pauline Ng - 09/23/2020 9:17 EDT Electronically signed by Nidia, [facility] Conversion Electrician'S Assistant Cerner at 06/29/2022 2:35 PM CDT documented in this encounter Plan of Treatment Upcoming Encounters Date Type Department Care Team (Late st Contact Info) Description 11/24/2024 2:00 PM EDT Office Visit [facility] - [place] [address] [place] [address] Jalen Ecniso MD [address] [place] [address] [place] [address] documented as of this encounter Visit Diagnoses Not on filedocumented in this encounter Care Teams Art Dealer Relationship Specialty Start Date End Date Kaylene Brooke MD [address] [place] [address] PCP - General General Internal Medicine 01/27/22 Farooq Marcus MD [address] [facility] [place] [address] PCP - General Family Medicine 02/27/22 documented as of this encounter
--- OUTSIDE RECORDS SUMMARY | 2024-11-21 21:24 | XMS_ITS | Encounter Summary ---
Author Organization [employer] ([place], [place], [place], [place]) Address [address] [place] [address] Care Team Providers Care Tricot Knitting Machine Operator Name Role Phone Kaylene Brooke MD Primary Care Provider [phone] Farooq Marcus MD Primary Care Provider [phone] Encounter Details Date Type Department Care Team (Late st Contact Info) Description 10/09/[address] [facility] [place] [address] ProviderRayray MD [address] [place], [place] [address] Social History Tobacco Use Types Packs/Day Years Used Date Smoking Tobacco: Never Assessed Sex and Gender Information Value Date Recorded Sex Assigned at Not on file Legal Sex Male 5:14 PM CDT Gender Identity Not on file Sexual Orientation Not on file documented as of this encounter Miscellaneous Notes * Cerner Conversion Note - Rayray ProviderMD - 10/09/2020 6:26 PM CDT ED Discharge Entered On: 10/09/2020 18:27 EDT Performed On: 10/09/2020 18:26 EDT by PRISCILLA JUAN RN Discharge Process Patient Disposition : Admit/Observe Personal Belongings With Patient : Yes Patient Education Completed : Yes Teaching Evaluation : Verbalizes understanding IV Discontinued : No Nursing Documentation Completed : Yes PRISCILLA JUAN RN - 10/09/2020 18:26 EDT Admission, ED Nurse Report Accepted By : Zaida TESFAYE `Nurse Report (Hand Off) : Called Accompanied By, Discharge : Spouse, Other: RN x1 Fluids/Drips Continued on Admission : Yes Fluids/Drips Continued on Admission, Comment : LR @ 100ml/hr Mode Of Departure : PRISCILLA Hernandez RN - 10/09/2020 18:26 EDT Electronically signed by [facility], [facility] Conversion Quill Fixer Cerner at 06/29/2022 2:37 PM CDT documented in this encounter Plan of Treatment Upcoming Encounters Date Type Department Care Team (Late st Contact Info) Description 11/24/2024 2:00 PM EDT Office Visit [facility] - [place] [address] [place] [address] Jalen Enciso MD [address] [place] [address] documented as of this encounter Visit Diagnoses Not on filedocumented in this encounter Care Teams Tricot Knitting Machine Operator Relationship Specialty Start Date End Date Kaylene Brooke MD [address] [place] [address] PCP - General General Internal Medicine 01/27/22 Farooq Marcus MD [address] [place] [address] PCP - General Family Medicine 02/27/22 documented as of this encounter
--- OUTSIDE RECORDS SUMMARY | 2024-11-21 21:24 | XMS_ITS | Encounter Summary ---
Author Organization [employer] ([place], [place], [place], [place]) Address [address] [place] [address] Care Team Providers Care Reference Library Assistant Name Role Phone Kayleen Brooke MD Primary Care Provider [phone] Farooq Marcus MD Primary Care Provider [phone] Encounter Details Date Type Department Care Team (Late st Contact Info) Description 09/22/2020 Transcribed Document [facility] [place] Family Medicine [address] [place] [address] ProviderRayray MD [address] [place] [address] Social History Tobacco Use Types Packs/Day Years Used Date Smoking Tobacco: Never Assessed Sex and Gender Information Value Date Recorded Sex Assigned at Not on file Legal Sex Male 5:14 PM CDT Gender Identity Not on file Sexual Orientation Not on file documented as of this encounter Miscellaneous Notes * Cerner Conversion Note - Rayray ProviderMD - 09/22/2020 9:28 AM CDT [place] Suicide Severity Rating Scale (C-SSRS) Entered On: 09/22/2020 11:11 EDT Performed On: 09/22/2020 11:06 EDT by CELIA ALBERT RN [place] Suicide Severity Rating Scale (C-SSRS) CSSRS Past Month Wish to be : No CSSRS Past Month Suicidal Thoughts : No CSSRS Lifetime Suicide Behavior : No Suicide Severity Rating Score : 0 Suicide Severity Rating : No Additional Care Required at this time CELIA ALBERT RN - 09/22/2020 11:06 EDT documented in this encounter Plan of Treatment Upcoming Encounters Date Type Department Care Team (Late st Contact Info) Description 11/24/2024 2:00 PM EDT Office Visit [facility] - [place] [address] [place] [address] Jalen Enciso MD [address] [place] [address] documented as of this encounter Visit Diagnoses Not on filedocumented in this encounter Care Teams Reference Library Assistant Relationship Specialty Start Date End Date MendyKaylene dunn MD [address] [place] [address] PCP - General General Internal Medicine 01/27/22 Farooq Marcus MD [address] [place] [address] PCP - General Family Medicine 02/27/22 documented as of this encounter
--- OUTSIDE RECORDS SUMMARY | 2024-11-21 21:24 | XMS_ITS | Encounter Summary ---
Author Organization [employer] ([place], [place], [place], [place]) Address [address] [place] [address] Care Team Providers Care Pit Clerk Name Role Phone Kaylene Brooke MD Primary Care Provider [phone] Farooq Marcus MD Primary Care Provider [phone] Encounter Details Date Type Department Care Team (Late st Contact Info) Description 10/10/2020 Transcribed Document [facility] [place] [facility] [place] [address] ProviderRayray MD [address] [place], [place] [id number] Social History Tobacco Use Types Packs/Day Years Used Date Smoking Tobacco: Never Assessed Sex and Gender Information Value Date Recorded Sex Assigned at Not on file Legal Sex Male 5:14 PM CDT Gender Identity Not on file Sexual Orientation Not on file documented as of this encounter Miscellaneous Notes * Cerner Conversion Note - Historical ProviderMD - 10/10/2020 10:00 AM CDT Patient: RANCHO DEL ANGEL Age: 84 Years Sex: Male : 1935 Chief Complaint nausea, vomiting for several weeks. radiation and chemo completed 3 weeks ago for esophageal cancer. Reason for Consultation Palliative needs and [facility] History of Present Illness 84 yo wm presented to ER at [facility] after having worsening N/V. Admitted to observation. 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 Followed by Dr Enciso/oncology. Last chemo 09/17/20, was doing well until his last tx. Admitted to hospital on 09/22 for acute pancreatitis and NSTEMI, d/c home on 09/28. Improved 2-3 days after that, then N/V returned. Zofran 8mg prn no longer was helping at home. Has been on Bactrim DS x 2 months for UTI possibly contributing. Last BM 3 days ago, constipation hx possibly contributing. Poor appetite with mobility declining, having generalized weakness, reports several falls at home recently. Depressive sx worsening, struggling with all the changes in health. Effexor increased from 75mg to 150 mg daily yesterday by attending. Nausea now improved with bland diet, zofran and phenergan prn. He is interested in rehab to get stronger. Time in: 1012 Time out: 1112 Total min: 60 min Referring Physician: Mile Willams PA-C Primary Attending Physician: Deonna Perez Reason for Consult: Palliative needs/GOC Goals of Care: ongoing Family Contact Information / POA / HCS: Living will on file from 09/23/20 naming [facility] 1 [place] [facility] Sister Georgina Recio Code status: Full Residency before this admission: Lived at home with spouse. 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 Ear/Nose/Mouth/Throat: No dysphagia, mild clear nasal discharge Respiratory: no Cough, No hemoptysis, No wheezing. Cardiovascular: No chest pain, No palpitations Gastrointestinal: , No diarrhea, No abdominal pain, No melena, + constipation + poor appetite, + nausea, notes blood in stool with constipation or straining Genitourinary: No dysuria, No hematuria. Hematology/Lymphatics: No bruising tendency, No bleeding tendency. Musculoskeletal: No joint pain, No muscle pain. + muscle weakness Integumentary: No rash or lesions. Neurologic: No confusion, No headache. Psychiatric: No hallucinations, +difficulty sleeping, + depression, + anxiety Vital Signs T: 36.9 ??C TMIN: 36.1 ??C TMAX: 36.9 ??C HR: 69(Monitored) RR: 17 BP: 115/62 SpO2: 91% HT: 182.88 cm WT: 68.18 kg BMI: 20.4 Oxygen Settings (Last) Oxygen Therapy Mode: Room air (10/10/20 06:00:00) Intake & Output Totals Last 24 Hours (7a-7a) Intake (21 Events) Continuous Infusions (1401.6667 mL) Medications (1024 mL) Oral Intake (100 mL) Output (4 Events) Urine Voided (Volume) (1350 mL) Input Total: 2525.6667 mL Output Total: 1350 mL Balance: 1175.6667 mL Physical Exam General: fragile, thin elderly male, NAD Neurologic: Awake, alert, and oriented X4, no focal deficits appreciated, moves all extremities Eye: PERRL, normal conjunctiva, bilat injection, no drainage, no icterus,mild lower periorbital edema. HENT: NC/AT, patent nares, mild clear nasal draining Neck: Supple, no lymphadenopathy Lungs: Clear to auscultation, non-labored respiration, no oxygen Heart: Normal rate, regular rhythm, no murmur, gallop or edema Abdomen: Soft, nontender, non-distended, slightly diminished bowel sounds, no masses Musculoskeletal: Normal range of motion, no tenderness or swelling Skin: Skin is warm, dry and pink, no rash. No cyanosis. Psychiatric: cooperative, depressed mood, normal affect, maintains eye contact Assessment/Plan Intractable nausea with vomiting Esophageal cancer, GE junction cancer (adenocarcinoma with known hilum and liver mets) post chemo and radiation tx Gastritis Dehydration Malnutrition Sx: nausea- improved from yesterday, cont. Zofran and Phenergan PRN constipation- Last BM 10/07. RN to give PRN Bisacodyl today. Recommend daily bowel regimen, discussed with Mile Willams PA-C. depression- Continue to monitor response of increased Effexor 150mg daily. May consider alternate med such as Paxil if persists. Discussed with Mile Willams PA-C. anxiety- Has had anxiety issues for many years. 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 Scheduled Ativan 1mg TID not helping much per pt report. Consider longer acting med or different antidepressant if persists. Discussed with Mile Willams PA-C. [facility]: Spoke with patient and Brandee at bedside today. He confirms Full Code status and having living will naming his as primary HCS and sister Georgina Recio as secondary. Pt reports he is frustrated with being ill and just has not seemed to get better even though he reports they are telling me the cancer is gone, but I still feel bad . is also under impression that cancer is in remission. He would prefer to be home but understands that he has gotten too weak and is willing to participate in rehab. reports it is just her to help with care and she is not physically able to care for him if he is unable to walk or do things for himself. reports that home health (uncertain of which agency) was referred with last hospitalization but told her he could not leave his home even to walk outside (homebound) and thus refused. Also PT called to set up appt .but called later stating their was no official order and cancelled. She is very upset still and states I don't want incompetent people helping us . Pt elaborates that he would not want to remain on life support halfway, not interested in trach or PEG. He is given generalized education about options moving forward and encouraged to discuss what QOL would look like for him with his . We discussed his current symptoms as described above. Pt and have many questions and are heavily basing decisions on POC depending on upcoming follow ups with oncology. Visit from cra offered/declined today but ok with palliative cra checking on later.For now they want to proceed with current POC and discuss rehab options prior to discharge. Palliative will continue to follow and assist as needed. VTE Prophylaxis - Medical Clopidogrel 75 mg, Oral, Tab, Daily, Start 10/10/20 9:00:00 EDT (PARKER PEREZ MD-INT) Sequential Compression Device Start: 10/09/20 16:55:00 EDT, Bilateral, Continuous Order (SASHA WILLAMS PA-C) Provider Information Primary Care Physician - MAZIN SHERIDAN MD-FAM Attending Physician - PARKER PEREZ MD-INT Admitting Physician - PARKER PEREZ MD-INT Consulting Physician - JALEN ENCISO MD-ONC - esoph cancer, has an appt on 10/11 will be inpatient Referring Physician - SHAINA, NOT LISTED Problem List/Past Medical History Ongoing Anxiety disorder At risk for sleep apnea Chest pain with high risk for cardiac etiology Esophagus cancer Hyperlipidemia Leg neuralgia Myocardial infarction Anxiety and Depression CAD NSTEMI Possible afib Procedure/Surgical History INSERTION OF INFUSION DEV INTO SUP VENA CAVA, PERC APPROACH (09/26/2020), ULTRASONOGRAPHY OF HEART WITH AORTA (09/23/2020), ISOLATION (09/22/2020), cardiac stent, colonoscopy, heart cath, Pacemaker. Medications Inpatient aspirin, 81 mg= 1 Tab, Oral, Daily Carafate, 1 Gram= 1 Tab, Oral, TIDAC clopidogrel, 75 mg= 1 Tab, Oral, Daily dexAMETHasone + Sodium Chloride 0.9% intravenous solution 50 mL Dulcolax Laxative, 5 mg= 1 Tab, Oral, Daily, PRN DuoNeb 0.5 mg-2.5 mg/3 mL inhalation solution, 3 mL, Nebulized Inhalation , Q6H, PRN Effexor XR, 150 mg= 1 Cap, Oral, Daily granisetron, 1 mg= 1 mL, IV Push, 1-Time hydrALAZINE, 10 mg= 0.5 mL, IV Push, Q6H, PRN Lactated Ringers Injection intravenous solution 1,000 mL, 1000 mL, IntraVENous LORazepam, 1 mg= 1 Tab, Oral, TID melatonin, 3 mg= 1 Tab, Oral, At Bedtime, PRN morphine, 2 mg= 1 mL, IV Push, Q2H, PRN multivitamin, 1 Tab, Oral, Daily PACLitaxel + Sodium Chloride 0.9% intravenous solution 500 mL pantoprazole, 40 mg= 1 Tab, Oral, Daily Pepcid + Sodium Chloride 0.9% intravenous solution 50 mL Phenergan, 6.25 mg= 0.25 mL, IntraVENous, Q6H, PRN Sodium Chloride 0.9% intravenous solution, 250 mL, IntraVENous, 1-Time trastuzumab Tylenol, 650 mg= 2 Tab, Oral, Q4H, [...] 8 mg= 1 Tab, Oral, TID, PRN Allergies oxyCODONE Social History Alcohol Alcohol Use History No. Use in Last 12 Months: No. Substance Abuse Drug Use Hx: No. Tobacco Smoking Status Never smoker. 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 Has 3 living biological children. 1 dtr and 1 step dtr. Family History Father-emphysema Mother-stroke in age 80's Immunizations Unknown Diagnostic Results Radiology Results (Last 48 hours) [id number] -- 10/09/2020 15:48 CR Chest 1 Vw Portable (10/09/2020 17:00) Result: PORTABLE CHESTHISTORY: Shortness of breath.COMPARISON: 12/23/2020.FINDINGS: A single portable radiograph of the chest was performed. There is a right internal jugular port with the tip in superior vena cava.There is a pacer overlying the left hemithorax. There are cardiac electrodes overlying the chest wall. The heart is normal in size. There is mild calcified plaque of the aorta. There may be a trace left effusion. There are some increased markings in the lung bases that may represent atelectasis or pneumonia. A viral process is not excluded.IMPRESSION: Decreased lung volume with basilar opacities similar to the prior study. This may represent atelectasis and/or pneumonia. Images reviewed, interpreted, and dictated by Sampson Laws MD Lab Results Test Name Test Result Date/Time Sodium Level 139 mmol/L 10/10/2020 06:05 EDT Sodium Level 138 mmol/L 10/09/2020 13:15 EDT Potassium Level 3.9 mmol/L 10/10/2020 06:05 EDT Potassium Level 3.9 mmol/L 10/09/2020 13:15 EDT Chloride Level 107 mmol/L 10/10/2020 06:05 EDT Chloride Level 104 mmol/L 10/09/2020 13:15 EDT Carbon Dioxide Level 30 mmol/L 10/10/2020 06:05 EDT Carbon Dioxide Level 31 mmol/L 10/09/2020 13:15 EDT Anion Gap 6 (Low) 10/10/2020 06:05 EDT Anion Gap 7 (Low) 10/09/2020 13:15 EDT Glucose Level 81 mg/dL 10/10/2020 06:05 EDT Glucose Level 88 mg/dL 10/09/2020 13:15 EDT Blood Urea Nitrogen 9 mg/dL 10/10/2020 06:05 EDT Blood Urea Nitrogen 11 mg/dL 10/09/2020 13:15 EDT Creatinine Level 1.00 mg/dL 10/10/2020 06:05 EDT Creatinine Level 1.00 mg/dL 10/09/2020 13:15 EDT eGFR >60 mL/min/1.73m2 10/10/2020 06:05 EDT eGFR >60 mL/min/1.73m2 10/09/2020 13:15 EDT eGFR NonAfrican >60 mL/min/1.73m2 10/10/2020 06:05 EDT eGFR NonAfrican >60 mL/min/1.73m2 10/09/2020 13:15 EDT Bun/Creatinine 9.0 10/10/2020 06:05 EDT Bun/Creatinine 11.0 10/09/2020 13:15 EDT Calcium Level 8.7 mg/dL 10/10/2020 06:05 EDT Calcium Level 8.8 mg/dL 10/09/2020 13:15 EDT Protein Total 5.9 Gram/dL (Low) 10/10/2020 06:05 EDT Protein Total 6.6 Gram/dL 10/09/2020 13:15 EDT Albumin Level 2.4 Gram/dL (Low) 10/10/2020 06:05 EDT Albumin Level 2.7 Gram/dL (Low) 10/09/2020 13:15 EDT Globulin 3.5 Gram/dL 10/10/2020 06:05 EDT Globulin 3.9 Gram/dL 10/09/2020 13:15 EDT A/G Ratio 0.7 (Low) 10/10/2020 06:05 EDT A/G Ratio 0.7 (Low) 10/09/2020 13:15 EDT Bilirubin Total 1.4 mg/dL (High) 10/10/2020 06:05 EDT Bilirubin Total 0.6 mg/dL 10/09/2020 13:15 EDT Alk Phos 152 Units/Liter (High) 10/10/2020 06:05 EDT Alk Phos 170 Units/Liter (High) 10/09/2020 13:15 EDT AST 24 Units/Liter 10/10/2020 06:05 EDT AST 23 Units/Liter 10/09/2020 13:15 EDT ALT 24 Units/Liter 10/10/2020 06:05 EDT ALT 27 Units/Liter 10/09/2020 13:15 EDT Magnesium Level 2.0 mg/dL 10/10/2020 06:05 EDT Magnesium Level 2.1 mg/dL 10/09/2020 13:15 EDT Amylase Level 56 Units/Liter 10/09/2020 15:34 EDT Lipase Level 210 Units/Liter 10/10/2020 06:05 EDT Lipase Level 242 Units/Liter 10/09/2020 15:34 EDT Troponin I Ultra <0.015 ng/mL 10/09/2020 16:17 EDT WBC 4.4 K/uL 10/10/2020 05:50 EDT WBC 5.0 K/uL 10/09/2020 13:15 EDT RBC 3.14 Million/uL (Low) 10/10/2020 05:50 EDT RBC 3.34 Million/uL (Low) 10/09/2020 13:15 EDT Hgb 9.5 g/dL (Low) 10/10/2020 05:50 EDT Hgb 10.2 g/dL (Low) 10/09/2020 13:15 EDT Hct 30.3 % (Low) 10/10/2020 05:50 EDT Hct 32.5 % (Low) 10/09/2020 13:15 EDT MCV 96.5 fL (High) 10/10/2020 05:50 EDT MCV 97.3 fL (High) 10/09/2020 13:15 EDT MCH 30.3 pg 10/10/2020 05:50 EDT MCH 30.5 pg 10/09/2020 13:15 EDT MCHC 31.4 Gram/dL (Low) 10/10/2020 05:50 EDT MCHC 31.4 Gram/dL (Low) 10/09/2020 13:15 EDT Platelet Count 270 K/uL 10/10/2020 05:50 EDT Platelet Count 311 K/uL 10/09/2020 13:15 EDT MPV 8.7 fL (Low) 10/10/2020 05:50 EDT MPV 8.5 fL (Low) 10/09/2020 13:15 EDT RDW 15.0 % (High) 10/10/2020 05:50 EDT RDW 15.1 % (High) 10/09/2020 13:15 EDT Neutrophil Percent Man 74 % (High) 10/10/2020 05:50 EDT Neutrophil Percent Man 70 % (High) 10/09/2020 13:15 EDT ANC # 3 K/uL 10/10/2020 05:50 EDT ANC # 4 K/uL 10/09/2020 13:15 EDT Lymph Percent Man 11 % (Low) 10/10/2020 05:50 EDT Lymph Percent Man 9 % (Low) 10/09/2020 13:15 EDT ALYC # 0 K/uL 10/10/2020 05:50 EDT ALYC # 0 K/uL 10/09/2020 13:15 EDT [place] Percent Man 10 % (High) 10/10/2020 05:50 EDT [place] Percent Man 15 % (High) 10/09/2020 13:15 EDT Eos Percent Man 4 % (High) 10/10/2020 05:50 EDT Eos Percent Man 5 % (High) 10/09/2020 13:15 EDT Baso Percent Man 1 % 10/10/2020 05:50 EDT Baso Percent Man 1 % 10/09/2020 13:15 EDT RBC Morphology Abnormal 10/10/2020 05:50 EDT RBC Morphology Abnormal 10/09/2020 13:15 EDT Anisocytosis 1+ (Abnormal) 10/10/2020 05:50 EDT Anisocytosis 1+ (Abnormal) 10/09/2020 13:15 EDT Poikilocytosis 1+ (Abnormal) 10/10/2020 05:50 EDT Hypochromia 1+ (Abnormal) 10/10/2020 05:50 EDT Hypochromia 1+ (Abnormal) 10/09/2020 13:15 EDT Ovalocytes 1+ (Abnormal) 10/10/2020 05:50 EDT Ovalocytes 1+ (Abnormal) 10/09/2020 13:15 EDT Macrocytosis 1+ (Abnormal) 10/10/2020 05:50 EDT Macrocytosis 1+ (Abnormal) 10/09/2020 13:[address] Estimate Adequate 10/10/2020 05:[address] Estimate Adequate 10/09/2020 13:15 EDT Slide Review Add Diff 10/10/2020 05:50 EDT Slide Review Add Diff 10/09/2020 13:15 EDT Urine Type. U CleanCatch 10/09/2020 14:45 EDT Urine Color YELLOW2 10/09/2020 14:45 EDT Urine Appearance CLEAR2 10/09/2020 14:45 EDT Urine Specific [place] 1.014 10/09/2020 14:45 EDT Urine pH Dipstick *8.0 10/09/2020 14:45 EDT Urine Leukocyte Esterase TRACE2 (Abnormal) 10/09/2020 14:45 EDT Urine Nitrite NEGATIVE2 10/09/2020 14:45 EDT Urine Protein Dipstick NEGATIVE2 10/09/2020 14:45 EDT Urine Glucose Dipstick NEGATIVE2 10/09/2020 14:45 EDT Urine Ketones Dipstick NEGATIVE2 10/09/2020 14:45 EDT Urine Urobilinogen Dipstick 1.0 (Abnormal) 10/09/2020 14:45 EDT Urine Bilirubin Dipstick NEGATIVE2 10/09/2020 14:45 EDT Urine Blood Dipstick NEGATIVE2 10/09/2020 14:45 EDT Ur WBC 0-2 10/09/2020 14:45 EDT Urine Culture if Indicated Not Indicated 10/09/2020 14:45 EDT ACC: ORDER: DATE: SOURCE: SITE: Reports Electronically signed by [facility], [facility] Conversion [employer] Remover Cerner at 06/29/2022 2:20 PM CDT documented in this encounter Plan of Treatment Upcoming Encounters Date Type Department Care Team (Late st Contact Info) Description 11/24/2024 2:00 PM EDT Office Visit [facility] [address] [place] [address] Jalen Enciso MD [address] [place] [address] documented as of this encounter Visit Diagnoses Not on filedocumented in this encounter Care Teams Pit Clerk Relationship Specialty Start Date End Date Kaylene Brooke MD [address] [place] [address] PCP - General General Internal Medicine 01/27/22 Farooq Marcus MD [address] [place] [address] PCP - General Family Medicine 02/27/22 documented as of this encounter
--- OUTSIDE RECORDS SUMMARY | 2024-11-21 21:25 | XMS_ITS | Encounter Summary ---
Author Organization [employer] ([place], [place], [place], [place]) Address [address] [place] [address] Care Team Providers Care Top Lifter Name Role Phone Kaylene Brooke MD Primary Care Provider [phone] Farooq Marcus MD Primary Care Provider Encounter Details Date Type Department Care Team (Late st Contact Info) Description 10/11/2020 Transcribed Document [facility] [place] [facility] [place] [address] ProviderRayray MD [address] [place], [place] [id number] Social History Tobacco Use Types Packs/Day Years Used Date Smoking Tobacco: Never Assessed Sex and Gender Information Value Date Recorded Sex Assigned at Not on file Legal Sex Male 5:14 PM CDT Gender Identity Not on file Sexual Orientation Not on file documented as of this encounter Miscellaneous Notes * Cerner Conversion Note - Historical ProviderMD - 10/11/2020 5:00 PM CDT Chart Check - Review Order Profile Entered On: 10/11/2020 16:55 EDT Performed On: 10/11/2020 17:00 EDT by Tegan Benz RN Chart Check Powerplans Initiated/Discontinued as Appropriate : Yes All Active Orders Reviewed : Yes Tegan Benz RN - 10/11/2020 16:55 EDT Electronically signed by [facility] Conversion Human Resources Operations Director Cerner at 06/29/2022 2:26 PM CDT documented in this encounter Plan of Treatment Upcoming Encounters Date Type Department Care Team (Late st Contact Info) Description 11/24/2024 2:00 PM EDT Office Visit [facility] - [place] [address] [place] [address] Jalen Enciso MD [address] [place] [address] documented as of this encounter Visit Diagnoses Not on filedocumented in this encounter Care Teams Top Lifter Relationship Specialty Start Date End Date Kaylene Brooke MD [address] [place] [address] PCP - General General Internal Medicine 01/27/22 Farooq Marcus MD [address] [place] [address] PCP - General Family Medicine 02/27/22 documented as of this encounter
--- OUTSIDE RECORDS SUMMARY | 2024-11-21 21:25 | XMS_ITS | Encounter Summary ---
Author Organization [employer] ([place], [place], [place], [place]) Address [address] [place] [address] Care Team Providers Care Supervisor Purification Name Role Phone Kaylene Brooke MD Primary Care Provider [phone] Farooq Marcus MD Primary Care Provider [phone] Encounter Details Date Type Department Care Team (Late st Contact Info) Description 10/13/2020 Transcribed Document [facility] [place] [facility] [place] [address] ProviderRayray MD [address] [place] [address] Social History Tobacco Use Types Packs/Day Years Used Date Smoking Tobacco: Never Assessed Sex and Gender Information Value Date Recorded Sex Assigned at Not on file Legal Sex Male 5:14 PM CDT Gender Identity Not on file Sexual Orientation Not on file documented as of this encounter Miscellaneous Notes * Cerner Conversion Note - Rayray San MD - 10/13/2020 11:09 AM CDT Patient Resource Center Entered On: 10/13/2020 11:11 EDT Performed On: 10/13/2020 11:09 EDT by Prachi Jesus, Flying Teacher Patient Resource Center Provider Status : EST Other Established Provider Name : MAZIN SHERIDAN Patient Phone Number : [phone] Patient Insurance Type : Medicare Source of Referral : Case management Location of Patient : Case management referral Primary Care Scheduled : Yes Primary Care Scheduled Type : Non [facility] Primary Care Provider Name : MAZINALDO SHERIDAN Primary Care Appointment Date/Time : 10/20/2020 10:30 EDT Specialty Care Scheduled : Yes Specialty Type Scheduled2 : [facility] Oncology/Hematology [facility]ology Provider Name : JALEN ENCISO [facility] Appointment Date/Time : 10/21/2020 15:30 EDT Qualify for Diabetes and/or Nutrition Referral : No Wound Care Appointment Made : No Why Patient Visited ED- Specialty spent : Other How Patient Arrived at ED : Other Primary Language : Angolan Patient Resource Center Comment : Patient needs follow up appointments. Called offices and scheduled appointments with Dr. Enciso and Dr. Sheridan. Follow Up Needed : No Prachi Jesus, Flying Teacher - 10/13/2020 11:09 EDT Electronically signed by [facility], [facility] Conversion Vegetable Canner Cerner at 06/29/2022 2:17 PM CDT documented in this encounter Plan of Treatment Upcoming Encounters Date Type Department Care Team (Late st Contact Info) Description 11/24/2024 2:00 PM EDT Office Visit [facility] [place] [address] [facility] [address] [place] [address] Jalen Enciso MD [address] [place] [address] documented as of this encounter Visit Diagnoses Not on filedocumented in this encounter Care Teams Supervisor Purification Relationship Specialty Start Date End Date Kaylene Brooke MD [address] [place] [address] PCP - General General Internal Medicine 01/27/22 Farooq Marcus MD [address] [place] [place] [address] PCP - General Family Medicine 02/27/22 documented as of this encounter
--- OUTSIDE RECORDS SUMMARY | 2024-11-21 21:25 | XMS_ITS | Encounter Summary ---
Author Organization [employer] ([place], [place], [place], [place]) Address [address] [place] [address] Care Team Providers Care Rn First Assist Name Role Phone Kaylene Brooke MD Primary Care Provider [phone] Farooq Marcus MD Primary Care Provider [phone] Encounter Details Date Type Department Care Team (Late st Contact Info) Description 09/23/2020 Transcribed Document [facility] [place] [address] [place] [address] ProviderRayray MD [address] [place] [address] Social History Tobacco Use Types Packs/Day Years Used Date Smoking Tobacco: Never Assessed Sex and Gender Information Value Date Recorded Sex Assigned at Not on file Legal Sex Male 5:14 PM CDT Gender Identity Not on file Sexual Orientation Not on file documented as of this encounter Miscellaneous Notes * Cerner Conversion Note - Rayray ProviderMD - 09/23/2020 10:54 AM CDT UM Authorization Entered On: 09/23/2020 10:54 EDT Performed On: 09/23/2020 10:54 EDT by TERESA GUZMÁN Rn-Utilization Review Primary Insurance Authorization Authorization and Policy Numbers : Insurance 1 Health Plan: MEDICARE Policy Number: [id number] Authorization Number: Insurance 2 Health Plan: C[employer] Medicare Supplement Policy Number: [id number] Authorization Number: Insurance Primary Name : MEDICARE Policy Number: [id number] [employer] Medicare Supplement Policy Number: [id number] Historical Authorization Comments-Primary : No Authorization Comments Found TERESA GUZMÁN, Rn-Utilization Review - 09/23/2020 10:54 EDT Electronically signed by Nidia [facility] Conversion Physiologist Cerner at 06/29/2022 2:21 PM CDT documented in this encounter Plan of Treatment Upcoming Encounters Date Type Department Care Team (Late st Contact Info) Description 11/24/2024 2:00 PM EDT Office Visit [facility] - [facility] [address] [place] [address] Jalen Enciso MD [address] [place] [address] documented as of this encounter Visit Diagnoses Not on filedocumented in this encounter Care Teams Rn First Assist Relationship Specialty Start Date End Date Kaylene Brooke MD [address] [place] [address] PCP - General General Internal Medicine 01/27/22 Farooq Marcus MD [address] [place] [address] PCP - General Family Medicine 02/27/22 documented as of this encounter
--- OUTSIDE RECORDS SUMMARY | 2024-11-21 21:25 | XMS_ITS | Encounter Summary ---
Author Organization [employer] ([place], [place], [place], [place]) Address [address] [place] [address] Care Team Providers Care Pizza Chef Name Role Phone Kaylene Brooke MD Primary Care Provider [phone] Farooq Marcus MD Primary Care Provider [phone] Encounter Details Date Type Department Care Team (Late st Contact Info) Description 10/11/2020 Transcribed Document [facility] [place] [address] [place] [address] ProviderRayray MD [address] [place] [address] Social History Tobacco Use Types Packs/Day Years Used Date Smoking Tobacco: Never Assessed Sex and Gender Information Value Date Recorded Sex Assigned at Not on file Legal Sex Male 5:14 PM CDT Gender Identity Not on file Sexual Orientation Not on file documented as of this encounter Miscellaneous Notes * Cerner Conversion Note - Rayray ProviderMD - 10/11/2020 8:39 AM CDT UM Authorization Entered On: 10/11/2020 8:39 EDT Performed On: 10/11/2020 8:39 EDT by CARMINE TORREZ RN Primary Insurance Authorization Authorization and Policy Numbers : Insurance 1 Health Plan: MEDICARE Policy Number: [id number] Authorization Number: Insurance 2 Health Plan: C[employer]a Medicare Supplement Policy Number: [id number] Authorization Number: Insurance Primary Name : MEDICARE Policy Number: [id number] [employer] Medicare Supplement Policy Number: [id number] Historical Authorization Comments-Primary : No Authorization Comments Found CARMINE TORREZ, RN - 10/11/2020 8:39 EDT documented in this encounter Plan of Treatment Upcoming Encounters Date Type Department Care Team (Late st Contact Info) Description 11/24/2024 2:00 PM EDT Office Visit [facility] - [facility] [address] [place] [address] Jalen Enciso MD [address] [place] [address] documented as of this encounter Visit Diagnoses Not on filedocumented in this encounter Care Teams Pizza Chef Relationship Specialty Start Date End Date Kaylene Brooke MD [address] [place] [address] PCP - General General Internal Medicine 01/27/22 Farooq Marcus MD [address] [place] [address] PCP - General Family Medicine 02/27/22 documented as of this encounter
--- OUTSIDE RECORDS SUMMARY | 2024-11-21 21:25 | XMS_ITS | Encounter Summary ---
Author Organization [employer] ([place], [place], [place], [place]) Address [address] [place] [address] Care Team Providers Care Fpga Engineer Name Role Phone Kaylene Brooke MD Primary Care Provider [phone] Farooq Marcus MD Primary Care Provider [phone] Encounter Details Date Type Department Care Team (Late st Contact Info) Description 09/24/2020 Transcribed Document [facility] [place] [address] [place] [address] ProviderRayray MD [address] [place], [place] [address] Social History Tobacco Use Types Packs/Day Years Used Date Smoking Tobacco: Never Assessed Sex and Gender Information Value Date Recorded Sex Assigned at Not on file Legal Sex Male 5:14 PM CDT Gender Identity Not on file Sexual Orientation Not on file documented as of this encounter Miscellaneous Notes * Cerner Conversion Note - Rayary ProviderMD - 09/24/2020 9:34 AM CDT Patient: DOYLE DEL ANGEL Age: 84 years Sex: Male : 1935 Associated Diagnoses: None Author: Virginia Goldman 84yoM with possible PNA Rx Consult: Vancomycin MD: Chantelle Mazariegos Dx: possibly PNA Vanc trough goal: 12-18 mcg/mL Wt = 79.5 kg BMI = 24 I/O = 653 / --- CrCl = ~56 Creatinine = 1.1 Current ABX 1. Vancomycin per RX 2. Zosyn 3.375g IV q6h Labs (Last four charted values) WBC 6.5 (SEP 24) 8.3 (SEP 15) H 12.8 (SEP 22) HB L 8.9 (SEP 24) L 8.2 (SEP 15) L 11.3 (SEP 14) HCT L 28.9 (SEP 16) L 26.3 (SEP 15) L 35.5 (SEP 14) Plt L 129 (SEP 24) L 116 (SEP 15) 189 (SEP 14) Na 137 (SEP 24) 139 (SEP 15) 138 (SEP 14) K 3.5 (SEP 16) 3.7 (SEP 15) 4.0 (SEP 14) Cl 108 (SEP 24) 108 (SEP 15) 103 (SEP 14) CO2 26 (SEP 24) 28 (SEP 15) 28 (SEP 14) BUN 16 (SEP 24) 20 (SEP 15) 16 (SEP 22) Cr 1.10 (SEP 24) 1.10 (SEP 23) 1.30 (SEP 22) Glu R 81 (SEP 24) 99 (SEP 23) H 120 (SEP 22) Ca L 8.0 (SEP 24) L 7.5 (SEP 23) 9.0 (SEP 22) Lactic C 2.8 (SEP 22) C 3.6 (SEP 22) C 2.8 (SEP 22) AST H 60 (SEP 24) H 100 (SEP 15) H 269 (SEP 22) ALT H 102 (SEP 24) H 132 (SEP 15) H 247 (SEP 22) ALK P H 181 (SEP 24) H 170 (SEP 23) H 343 (SEP 22) T Bili H 1.7 (SEP 24) H 1.9 (SEP 23) H 2.8 (SEP 22) PTN L 5.7 (SEP 24) L 5.0 (SEP 23) 6.6 (SEP 22) ALB L 2.3 (SEP 24) L 2.1 (SEP 15) L 3.0 (SEP 22) Lipase H 1504 (SEP 23) H 5762 (SEP 22) Vitals Signs (last 24 hrs) Last Charted Minimum Maximum Temp 98 (SEP 24 09:06) 97.9 (SEP 23 11:00) 98.3 (SEP 23 16:30) Mon HR 69 (SEP 24 09:06) 68 (SEP 23 11:00) 75 (SEP 23 16:30) Resp Rate 18 (SEP 24 05:56) 18 (SEP 23 22:00) 18 (SEP 23 22:00) SBP 121 (SEP 24 09:06) 97 (SEP 23 22:49) 125 (SEP 24 05:56) DBP 62 (SEP 24 09:06) L 53 (SEP 23 22:49) 62 (SEP 24 09:06) MAP 78 (SEP 24 09:06) 69 (SEP 23 22:49) 78 (SEP 24 09:06) SpO2 94 (SEP 24 03:06) L 92 (SEP 23 16:30) 98 (SEP 23 11:00) Microbiology: 09/22 blood = NGTD 09/22 urine = pending Radiology: 09/22 CT abdomen pelvis = IMPRESSION: Small pleural effusions with bibasilar consolidation, similar to prior exam. Follow-up to resolution is recommended. 09/22 CR chest = IMPRESSION: There are bibasilar opacities, likely secondary to pneumonia. Vancomycin Levels 09/24 @1999 = ordered A/p 1. Based upon age, wt, and renal function continue Vancomycin 1250mg IV q24h 2. Vanco trough 09/24 @ 20:00 -Hold dose if trough >20 3. Other medications adjusted appropriately at this time, will monitor for changes. Thank you for this consult, Mike Godfrey [facility] [place] Goldman, PharmD Electronically signed by [facility] Conversion Razor Grinder Cerner at 06/29/2022 2:18 PM CDT documented in this encounter Plan of Treatment Upcoming Encounters Date Type Department Care Team (Late st Contact Info) Description 11/24/2024 2:00 PM EDT Office Visit [facility] - [place] [address] [place] [address] Jalen Enciso MD [address] [place] [address] documented as of this encounter Visit Diagnoses Not on filedocumented in this encounter Care Teams Fpga Engineer Relationship Specialty Start Date End Date Kaylene Brooke MD [address] [place] [address] PCP - General General Internal Medicine 01/27/22 Farooq Marcus MD [address] [place], [place] [address] PCP - General Family Medicine 02/27/22 documented as of this encounter
--- OUTSIDE RECORDS SUMMARY | 2024-11-21 21:25 | XMS_ITS | Encounter Summary ---
Author Organization [employer] ([place], [place], [place], [place]) Address [address] [place] [address] Care Team Providers Care Real Estate Professional Name Role Phone Kaylene Brooke MD Primary Care Provider [phone] Farooq Marcus MD Primary Care Provider [phone] Encounter Details Date Type Department Care Team (Late Contact Info) Description 09/23/2020 Transcribed Document [facility] [place] Family Medicine [facility] [place] [address] ProviderRayray MD [address] [place], [place] [address] Social History Tobacco Use Types Packs/Day Years Used Date Smoking Tobacco: Never Assessed Sex and Gender Information Value Date Recorded Sex Assigned at Not on file Legal Sex Male 5:14 PM CDT Gender Identity Not on file Sexual Orientation Not on file documented as of this encounter Miscellaneous Notes * Cerner Conversion Note - Historical ProviderMD - 09/23/2020 5:00 AM CDT Chart Check - Review Order Profile Entered On: 09/23/2020 7:07 EDT Performed On: 09/23/2020 5:00 EDT by Sean Guidry Rn Chart Check Powerplans Initiated/Discontinued as Appropriate : Yes All Active Orders Reviewed : Yes Sean Guidry Rn - 09/23/2020 7:07 EDT documented in this encounter Plan of Treatment Upcoming Encounters Date Type Department Care Team (Late st Contact Info) Description 11/24/2024 2:00 PM EDT Office Visit [facility] - [place] [address] [place] [address] Jalen Enciso MD [address] [place] [address] documented as of this encounter Visit Diagnoses Not on filedocumented in this encounter Care Teams Real Estate Professional Relationship Specialty Start Date End Date Kaylene Brooke MD [address] [place] [address] PCP - General General Internal Medicine 01/27/22 Farooq Marcus MD [address] [place] [address] PCP - General Family Medicine 02/27/22 documented as of this encounter
--- OUTSIDE RECORDS SUMMARY | 2024-11-21 21:25 | XMS_ITS | Encounter Summary ---
Author Organization [employer] ([place], [place], [place], [place]) Address [address] [place] [address] Care Team Providers Care Cup Setter Lockstitch Name Role Phone Kaylene Brooke MD Primary Care Provider [phone] Farooq Marcus MD Primary Care Provider [phone] Encounter Details Date Type Department Care Team (Late st Contact Info) Description 10/13/2020 Transcribed Document [facility] [place] [facility] [place] [address] ProviderRayray MD [address] [place] [address] Social History Tobacco Use Types Packs/Day Years Used Date Smoking Tobacco: Never Assessed Sex and Gender Information Value Date Recorded Sex Assigned at Not on file Legal Sex Male 5:14 PM CDT Gender Identity Not on file Sexual Orientation Not on file documented as of this encounter Miscellaneous Notes * Cerner Conversion Note - Rayray ProviderMD - 10/13/2020 8:38 AM CDT Patient: RANCHO DEL ANGEL Age: 84 Years Sex: Male : 1935 Admit Date 10/10/2020 10:58 Discharge Date 10/13/2020 Primary Care Provider MAZIN SHERIDAN [facility] Discharge Diagnosis Severe protein-calorie malnutrition 10/13/2020 E43 ICD-10-CM Blepharitis 10/13/2020 H01.009 ICD-10-CM Depression 10/13/2020 F32.9 ICD-10-CM Malnourished 10/13/2020 E46 ICD-10-CM Esophageal cancer 10/13/2020 C15.9 ICD-10-CM Gastritis 10/13/2020 K29.70 ICD-10-CM Intractable nausea and vomiting 10/13/2020 R11.2 ICD-10-CM Dehydration 10/13/2020 E86.0 ICD-10-CM Generalized weakness 10/13/2020 R53.1 ICD-10-CM Hypokalemia 10/13/2020 E87.6 ICD-10-CM Nausea 10/09/2020 R11.0 ICD-10-CM Vomiting 10/09/2020 R11.10 ICD-10-CM Post chemo evaluation 10/09/2020 Z09 ICD-10-CM Procedures SN - Proc - Procedure: Gastric Biopsy with EGD (10/12/20 08:12:35) Studies PORTABLE CHEST HISTORY: Shortness of breath. COMPARISON: 12/23/2020. FINDINGS: A single portable radiograph of the chest was performed. There is a right internal jugular port with the tip in superior vena cava. There is a pacer overlying the left hemithorax. There are cardiac electrodes overlying the chest wall. The heart is normal in size. There is mild calcified plaque of the aorta. There may be a trace left effusion. There are some increased markings in the lung bases that may represent atelectasis or pneumonia. A viral process is not excluded. IMPRESSION: Decreased lung volume with basilar opacities similar to the prior study. This may represent atelectasis and/or pneumonia. [1] CT HEAD WITHOUT AND WITH CONTRAST HISTORY: Nausea and vomiting for one week., Esophageal carcinoma, chemotherapy 3 weeks prior COMPARISON: 05/26/2020 TECHNIQUE: Multiple thin-section axial images of the brain were performed without and after the administration of 50 mL of Isovue-300 intravenously. This study was performed with techniques to keep radiation doses as low as reasonably achievable, (ALARA). Individualized dose reduction techniques using automated exposure control or adjustment of mA and/or kV according to the patient size were employed. FINDINGS: The sinuses and mastoid air cells are clear. There are no fluid levels. Bone windows are unremarkable. The visualized orbits and globes are unremarkable. The brainstem and posterior fossa are unremarkable. The ventricles and basal cisterns are unremarkable. There is no cortical edema. There are extensive areas of abnormal decreased density throughout the white matter. This appears slightly increased from the prior study. Findings are most consistent with severe small vessel chronic ischemic change. There is no hemorrhage. There are no extra-axial fluid collections. There is no mass identified. Post enhanced images demonstrate no abnormal contrast enhancement IMPRESSION: 1. No acute intracranial abnormalities. 2. Significant low attenuation throughout the white matter which is slightly increased from 5 months prior. Findings suggests severe small vessel chronic ischemic change. 3. No abnormal contrast enhancement to suggest metastatic disease. [2] Reason for Hospitalization Intractable Nausea and Vomiting Hospital Course Mr Del Angel is an 84 year old white male with esophageal cancer. His last chemotherapy was 09/17/2020 and states he was doing well until his last treatment on that date. He was admitted to the hospital shortly after that date for NSTEMI and acute pancreatitis, he was discharged on 09/28/2020. He and his states he was doing better for 2-3 days then the nausea gradually returned and has progressively gotten worse, he has been vomiting the past 2 days. Kasie was not working at home it was admitted to the hospital. He had no signs of pancreatitis. Fernie was consulted as well as GI for his symptoms. Palliative care was also consulted for goals of care. Patient actually on admission was still having extreme nausea not tolerating p.o. intake. On this patient was found to be dehydrated initially started on IV fluids. He was then started on Carafate to see if this would help but he continued to have nausea. He was then started on Megace as well as Reglan. EGD was performed on 10/12 showing some gastric erythema and a hiatal hernia which was known. Biopsy was done for H. pylori which has not come back upon discharge. Patient will remain on a PPI as well as Carafate for the next 10 days post discharge. does state that he had been on Bactrim while he was receiving chemotherapy, this was discontinued and will not be reinitiated upon discharge. After the EGD patient was tolerating p.o. intake without extreme nausea. I discussed with that we will keep him on Megace as well as the Reglan and Carafate. Dr. Enciso states that continuing examination related to his esophageal cancer shows that it is in remission. CT the head was performed to rule out any metastatic disease and just showed chronic microvascular disease. Patient also had generalized weakness and malnutrition from his chemotherapy as well as his nausea and vomiting. Worked with PT and OT. Patient currently does not wish to go to acute rehab to help with his strength and his states that he feels comfortable walking him at home with his walker. And also was very tearful and seemed more depressed upon arrival. His Effexor was increased while here in the hospital. She also had lower lid blepharitis and some swelling. He will go home on erythromycin ointment. There is no conjunctivitis but he did seem to have increased tear production in that eye and kept rubbing his eye which could have been the nidus for the swelling to his eye. Discharge patient had not had a bowel movement in a couple of days But was passing gas. I encouraged him to take stool softeners at home as needed and drink plenty of water. Patient will follow up with his primary care provider as well as Dr. Enciso. Vital Signs T: 37 ??C TMIN: 36.2 ??C TMAX: 37 ??C HR: 81(Monitored) RR: 16 BP: 106/59 SpO2: 94% Oxygen Settings (Last) Oxygen Therapy Mode: Room air (10/13/20 08:19:00) Physical Exam General: [Alert and oriented, thin build, NAD Neurologic: [Awake, alert, and oriented X3, No focal deficits. Eye: [PERRL, EOMI, swelling and mild erythema noted to the left lower lid. Normal conjunctiva. HENT: [Normocephalic, Moist mucosal membranes Neck: [Supple, non-tender, no carotid bruits, no JVD, no lymphadenopathy]. Lungs: [Clear to auscultation bilaterally. Heart: [Normal rate, regular rhythm, no peripheral edema Abdomen: [Soft, non-tender, non-distended, normal bowel sounds, Musculoskeletal: Moves all 4 extremities. Skin: [Skin is warm, dry and pink, no rashes or lesions]. Psychiatric: [Cooperative, appropriate mood and affect]. Discharge Disposition Home Discharge Follow Up [facility]ZIN [facility] - Within 1 week Discharge Medications (11) Active aspirin 81 mg, Oral, Daily Ativan 1 mg oral tablet 1 mg = 1 Tab, PRN, Oral, TID Carafate 1 g/10 mL oral suspension 1 Gram = 10 mL, Oral, TIDAC Effexor XR 150 mg oral capsule, extended release 150 mg = 1 Cap, Oral, Daily erythromycin 0.5% ophthalmic ointment 1 Application, Eye Left, BID Megace 40 mg/mL oral suspension 800 mg = 20 mL, Oral, Daily multivitamin 1 Tab, Oral, Daily pantoprazole 40 mg oral delayed release tablet 40 mg = 1 Tab, Oral, Daily Plavix 75 mg oral tablet , Oral, Daily Reglan 10 mg oral tablet 10 mg = 1 Tab, Oral, AC and at Bedtime Zofran 8 mg oral tablet 8 mg = 1 Tab, PRN, Oral, TID Code Status Start: 10/09/20 16:33:00 EDT, Full Code, Continuous Order Condition on Discharge fair, stable Consulting Physicians JALEN ENCISO MD-[facility] - esoph cancer, has an appt on 10/11 will be inpatient MAXIMILIANO WALTERS MD-ONC PREETI BENJAMIN MD-[facility] - anorexia, early satiety. ?EGD NATE KINNEY MD HORN, MICHAEL, MD-ONC Current Diet Order Diet, Adult - Ordered -- Start: 10/12/20 10:11:00 EDT, Regular Diet, Isolation: Standard Precautions Patient Discharge Summary Orders Discharge Activity: Discharge Activity: Activity as tolerated Diet: Discharge Diet: Resume usual diet as tolerated Pending Labs In Process SENDOUT REPORT [id number], [id number], RT - Routine, 10/12/20 8:12:00 EDT Pathology Tissue Request [id number], [id number], 10/12/20 8:12:00 EDT, Collected, RT - Routine, 10/12/20 9:05:35 EDT, NINFA PACHECO, Histotech, Specimen Type: AP Specimen, Specimen Desc: Gastric biopsy In Transit Path Tissue Request, Sendout Specimen Type: AP Specimen, Routine collect, 10/12/20 8:12:00 EDT, 1-Time, Collected, Stop: 10/12/20 8:12:00 EDT, Nurse Collect, Specimen Desc: gastric biopsy, Print Label By Order Location Time Spent on Discharge I spent greater than 30 minutes on discharge. [1] CR Chest 1 Vw Port; SCOTT PANDEY 10/09/2020 17:00 EDT [2] CT Head WO W; ERIKA HARDEN 10/10/2020 16:08 EDT documented in this encounter Plan of Treatment Upcoming Encounters Date Type Department Care Team (Late st Contact Info) Description 11/24/2024 2:00 PM EDT Office Visit [facility] [place] [address] [place] [address] Jalen Enciso MD [address] [place] [address] documented as of this encounter Visit Diagnoses Not on filedocumented in this encounter Care Teams Cup Setter Lockstitch Relationship Specialty Start Date End Date Kaylene Brooke MD [address] [place] [address] PCP - General General Internal Medicine 01/27/22 Farooq Marcus MD [address] [place] [address] PCP - General Family Medicine 02/27/22 documented as of this encounter
--- OUTSIDE RECORDS SUMMARY | 2024-11-21 21:25 | XMS_ITS | Encounter Summary ---
Author Organization [employer] ([place], [place], [place], [place]) Address [address] [place] [address] Care Team Providers Care Quality Control Technician Name Role Phone Kaylene Brooke MD Primary Care Provider [phone] Farooq Marcus MD Primary Care Provider [phone] Encounter Details Date Type Department Care Team (Late st Contact Info) Description 10/11/2020 Transcribed Document [facility] [place] [address] ProviderRayray MD [address] [place] [address] Social History Tobacco Use Types Packs/Day Years Used Date Smoking Tobacco: Never Assessed Sex and Gender Information Value Date Recorded Sex Assigned at Not on file Legal Sex Male 5:14 PM CDT Gender Identity Not on file Sexual Orientation Not on file documented as of this encounter Miscellaneous Notes * Cerner Conversion Note - Rayray ProviderMD - 10/11/2020 8:51 AM CDT Consult Phone Call Documentation Entered On: 10/11/2020 10:08 EDT Performed On: 10/11/2020 8:51 EDT by Mariangel Davis Patient Accounts Receivable Processor I Phone Call for Consults Consult Phone Call/Page Attempt : Other: spoike with ernesto Consult Reason : anorexia, early satiety. ?EGD Physician Requesting Consult : JALEN ENCISO MD-[facility] Physician Requested for Consult : PREETI BENJAMIN MD-GAJesse Provider Service Notified Name : Gastroenterology Date and Time Call Returned : 10/11/2020 10:08 EDT Ryan, Mariangel, Patient Accounts Receivable Processor I - 10/11/2020 10:06 EDT documented in this encounter Plan of Treatment Upcoming Encounters Date Type Department Care Team (Late st Contact Info) Description 11/24/2024 2:00 PM EDT Office Visit [facility] - [facility] [address] [facility] [address] [place] [address] Jalen Enciso MD [address] [place] [address] documented as of this encounter Visit Diagnoses Not on filedocumented in this encounter Care Teams Quality Control Technician Relationship Specialty Start Date End Date Kaylene Brooke MD [address] [place] [address] PCP - General General Internal Medicine 01/27/22 Farooq Marcus MD [address] [place] [address] PCP - General Family Medicine 02/27/22 documented as of this encounter
--- OUTSIDE RECORDS SUMMARY | 2024-11-21 21:25 | XMS_ITS | Encounter Summary ---
Author Organization [employer] ([place], [place], [place], [place]) Address [address] [place] [address] Care Team Providers Care Talkback Host Name Role Phone Kaylene Brooke MD Primary Care Provider [phone] Farooq Marcus MD Primary Care Provider [phone] Encounter Details Date Type Department Care Team (Late st Contact Info) Description 10/11/2020 Transcribed Document [facility] [place] [facility] [place] [address] ProviderRayray MD [address] [place] [address] Social History Tobacco Use Types Packs/Day Years Used Date Smoking Tobacco: Never Assessed Sex and Gender Information Value Date Recorded Sex Assigned at Not on file Legal Sex Male 5:14 PM CDT Gender Identity Not on file Sexual Orientation Not on file documented as of this encounter Miscellaneous Notes * Cerner Conversion Note - Historical ProviderMD - 10/11/2020 3:45 PM CDT Treatment Intervention, PT Entered On: 10/12/2020 15:39 EDT Performed On: 10/12/2020 15:34 EDT by MATIAS KERN PTA General Information, PT Visit Type, PT : Treatment Note Patient Orders : Order Date Order Ordering 10/09/2020 16:34 PT Evaluation and Treatment Ordered By: SASHA PEREZ PA-C 10/11/2020 15:45 PT Additional Treatment Ordered By: CINDY DEL RIO PT Active Diagnoses : 10/09/2020 12:00 Encounter for follow-up examination after completed treatment for conditions other than malignant neoplasm 10/09/2020 12:00 Nausea 10/09/2020 12:00 Vomiting 10/09/2020 12:00 Vomiting, unspecified Therapy Diagnosis, PT : Decreased mobility due to N/V, NSTEMI, pancreatitis Admission Date : 10/10/2020 10:58 Assisted by, PT : hearing aid technician/aide Personal Devices : Personal Devices No Devices Recorded Assistive Devices : Assistive Devices No Devices Recorded Precautions in Place : Fall prevention measures MATIAS KERN PTA - 10/12/2020 15:34 EDT General Status Patient Received Status : Supine in bed Treatment Start Time : 10/12/2020 15:15 EDT Patient Left Status : Supine in bed, Family/Visitors at bedside, All needs met and within reach RN/PCT Informed Comment : MERA Javed ok'd to treat. Treatment End Time : 10/12/2020 15:27 EDT Treatment Time : 12 Minute(s) MATIAS KERN PTA - 10/12/2020 15:34 EDT Functional Mobility Mobility Grid Supine to Sit : Rehab Modified independence Sit to Stand : Rehab Modified independence Stand to Sit : Rehab Modified independence Sit to Supine : Rehab Modified independence MATIAS KERN PTA - 10/12/2020 15:34 EDT Bed Comment : stood with no AD but didnt take a step until he has the RWx Sit to Stand Device : Walker, front wheel MATIAS KERN PTA - 10/12/2020 15:34 EDT Gait Training/Assessment, PT Weight Bearing Status Maintained : Yes Weight Bearing Status : Full Gait Assistance Level : Independent, modified Walking Distance : 600ft Ambulatory Devices : None, Gait belt Gait Deviations : Yes Gait Training Comment : patient was steady with no LOB noted ; slightly forward flexed posture MATIAS KERN PTA - 10/12/2020 15:34 EDT Cognitive Treatment, PT Orientation : Oriented x 4 MATIAS KERN PTA - 10/12/2020 15:34 EDT Edu Topics Physical Therapy Education Grid Gait Training : Returns demonstration, Needs further teaching Role of Physical Therapy : Returns demonstration Transfer Training : Returns demonstration, Needs further teaching MATIAS KERN PTA - 10/12/2020 15:34 EDT Indication Assesessment, PT Physical Therapy Indicated : Yes MATIAS KERN PTA - 10/12/2020 15:34 EDT Plan of Care, PT PT Tx Plan/Goals Established w Patient : Yes MATIAS KERN PTA - 10/12/2020 15:34 EDT Short Term Goals Mobility/Bed Mobility STG PT Grid Goal #1 Activity : Sit to stand Assist : Independent, modified Equipment : Walker, front wheel Date to Meet : 10/18/2020 EDT Goal Status : Goal met Date Met : 10/12/2020 EDT MATIAS KERN PTA - 10/12/2020 15:34 EDT Ambulation STG Grid Goal #1 Device : Walker, front wheel Distance : 150' Assist : Supervision or set-up Date to Meet : 10/18/2020 EDT Goal Status : Goal met Date Met : 10/12/2020 EDT MATIAS KERN PTA - 10/12/2020 15:34 EDT [facility] Goals Ambulation LTG Grid Goal #1 Device : None Distance : 200' Assist : Supervision or set-up Date to Meet : 10/25/2020 EDT Goal Status : Progressing, continue MATIAS KERN PTA - 10/12/2020 15:34 EDT Treatment Note Subjective Comment : Patient agrees to treat Assessment : Patient has met 2 STGs and would benefit from continued PT to attempt amb without AD Plan for Treatment : Continue per POC. MATIAS KERN PTA - 10/12/2020 15:34 EDT Pain Assessment Pain Comment : no complaints of pain noted MATIAS KERN PTA - 10/12/2020 15:34 EDT Image 1 - Images currently included in the form version of this document have not been included in the text rendition version of the form. Anticipated Discharge Needs, OT/PT Anticipated Discharge to : Home, independently MATIAS KERN PTA - 10/12/2020 15:34 EDT [place] PT Charges CONCRETE SMOOTHER PT Therap. Exercise 15 min-CONCRETE SMOOTHER : 1 MATIAS KERN PTA - 10/12/2020 15:34 EDT documented in this encounter Plan of Treatment Upcoming Encounters Date Type Department Care Team (Late st Contact Info) Description 11/24/2024 2:00 PM EDT Office Visit [facility] Oncology - [place] [address] [place] [address] Jalen Enciso MD [address] [place] [address] documented as of this encounter Visit Diagnoses Not on filedocumented in this encounter Care Teams Talkback Host Relationship Specialty Start Date End Date Kaylene Brooke MD [address] [place] [address] PCP - General General Internal Medicine 01/27/22 Farooq Marcus MD [address] [place] [address] PCP - General Family Medicine 02/27/22 documented as of this encounter
--- OUTSIDE RECORDS SUMMARY | 2024-11-21 21:25 | XMS_ITS | Encounter Summary ---
Author Organization [employer] ([place], [place], [place], [place]) Address [address] [place] [address] Care Team Providers Care Wet Chemistry Analyst Name Role Phone Kaylene Brooke MD Primary Care Provider [phone] Farooq Marcus MD Primary Care Provider [phone] Encounter Details Date Type Department Care Team (Late st Contact Info) Description 10/12/2020 Transcribed Document [facility] [place] [address] [place] [address] ProviderRayray MD [address] [place], [place] [address] Social History Tobacco Use Types Packs/Day Years Used Date Smoking Tobacco: Never Assessed Sex and Gender Information Value Date Recorded Sex Assigned at Not on file Legal Sex Male 5:14 PM CDT Gender Identity Not on file Sexual Orientation Not on file documented as of this encounter Miscellaneous Notes * Cerner Conversion Note - Rayray ProviderMD - 10/12/2020 8:09 AM CDT [facility] Endo IntraOp Summary Primary Physician: NATE KINNEY MD Finalized Date/Time: 10/12/20 08:16:28 Pt. Name: RANCHO DEL ANGEL Jesse Leal/Sex: 1935 Male Med Rec #: [id number] Physician: PARKER RAVI MD-INT Financial #: [id number] Pt. Type: I Room/Bed: [facility]/ Admit/Disch: 10/10/20 10:58:00 - Institution: [facility] Endo - Case Attendance Entry 1 Entry 2 Entry 3 Case Attendee NATE KINNEY MD Walker, Mary B, MIKKI Dowling Role Performed Surgeon/Proceduralist, Human Resources Specialist, First Scrub, First First Time In 10/12/20 08:05:00 10/12/20 08:00:00 10/12/20 08:00:00 Time Out 10/12/20 08:16:00 10/12/20 08:16:00 10/12/20 08:16:00 Procedure Esophagogastroduodenosco Esophagogastroduodenosco Esophagogastroduodenosco py, Gastric Biopsy py, Gastric Biopsy py, Gastric Biopsy Other Attendee Superficial Wound Closed By: Last Modified By: Mari Holly, Mari Koenig, Mari Koenig Rn 10/12/20 08:15:02 10/12/20 08:15:02 10/12/20 08:15:02 Entry 4 Entry 5 Case Attendee DELMER LOPEZ CRNA BURBERRY, KEITH, MD-ANS Role Performed FLIGHT RESERVATIONS MANAGER/Nurse Registered Respiratory Technician Anesthesiologist of Record Time In 10/12/20 08:00:00 10/12/20 08:00:00 Time Out 10/12/20 08:16:00 10/12/20 08:16:00 Procedure Esophagogastroduodenosco Esophagogastroduodenosco py, Gastric Biopsy py, Gastric Biopsy Other Attendee Superficial Wound Closed By: Last Modified By: Mari Holly Rn Walker, Mary B, Rn 10/12/20 08:15:02 10/12/20 08:15:02 [facility] Endo - Case Attendance Audit 10/12/20 08:15:02 Pcas: [id number] Modifier: [id number] 1 <+> Time Out 1 <*> Procedure Esophagogastroduodenoscopy, Gastric Biopsy 2 <+> Time Out 2 <*> Procedure Esophagogastroduodenoscopy, Gastric Biopsy 3 <+> Time Out 3 <*> Procedure Esophagogastroduodenoscopy, Gastric Biopsy 4 <+> Time Out 4 <*> Procedure Esophagogastroduodenoscopy, Gastric Biopsy 5 <+> Time Out 5 <*> Procedure Esophagogastroduodenoscopy, Gastric Biopsy 10/12/20 08:12:37 Pcas: [id number] Modifier: [id number] 1 <*> Procedure Esophagogastroduodenoscopy 2 <*> Procedure Esophagogastroduodenoscopy 3 <*> Procedure Esophagogastroduodenoscopy 4 <*> Procedure Esophagogastroduodenoscopy 5 <*> Procedure Esophagogastroduodenoscopy 10/12/20 08:05:35 Pcas: [id number] Modifier: [id number] 1 <+> Time In 1 <*> Procedure Esophagogastroduodenoscopy 2 <+> Time In 2 <*> Procedure Esophagogastroduodenoscopy 3 <+> Time In 3 <*> Procedure Esophagogastroduodenoscopy 4 <+> Time In 4 <*> Procedure Esophagogastroduodenoscopy 5 <+> Time In 5 <*> Procedure Esophagogastroduodenoscopy 10/12/20 08:02:15 Pcas: [id number] Modifier: [id number] <+> 5 Case Attendee <+> 5 Role Performed <+> 5 Procedure 10/12/20 07:57:26 Pcas: [id number] Modifier: [id number] <+> 2 Case Attendee <+> 2 Role Performed <+> 2 Procedure <+> 3 Case Attendee <+> 3 Role Performed <+> 3 Procedure <+> 4 Case Attendee <+> 4 Role Performed <+> 4 Procedure [facility] Endo - Case times Entry 1 Patient In Room Time 10/12/20 08:00:00 Out Room Time 10/12/20 08:16:00 Anesthesia Start Time 10/12/20 08:00:00 Stop Time 10/12/20 08:16:00 Surgery / Procedure Times Start Time 10/12/20 08:09:00 Stop Time 10/12/20 08:14:00 Last Modified By: Mari Holly Rn 10/12/20 08:14:36 [facility] Endo - Case times Audit 10/12/20 08:14:36 Pcas: [id number] Modifier: [id number] <+> 1 Out Room Time <+> 1 Stop Time <+> 1 Stop Time 10/12/20 08:09:07 Pcas: [id number] Modifier: [id number] <+> 1 Start Time [facility] Endo - Cultures and Spec Summary Entry 1 Cultrures and Specimens Specimen Ordered: Yes Test(s) Routine/Path-Lab Requested/Final Disposition Last Modified By: Mari Holly Rn 10/12/20 08:13:55 [facility] Endo - Delays Entry 1 Delay Reason Other Duration 0 Minute(s) Last Modified By: Mari Holly Rn 10/12/20 08:02:27 [facility] Endo - Departure from OR Entry 1 Integumentary Assessment Integumentary WDL Assessment WDL Transfer/Handoff Transfer to PACU Phase I Post-op Transport Stretcher/Gurney Via Patient Transport Mari Holly, Rn, Accompanied by DELMER LOPEZ CRNA Last Modified By: Mari Holly, Marty 10/12/20 08:02:33 [facility] Endo - Endoscopy Details Entry 1 Abdomen Procedure Soft, Non-Tender Assessment Procedure Abdomen 10/12/20 08:00:00 Assessment D/T Radio Frequency Ablation Abdominal Pressure Last Modified By: Mari Holly Rn 10/12/20 08:02:48 [facility] Endo - Fire Risk Assessment Entry 1 Fire Info Surgical Site or 1- Yes Incision Above the Xyphoid Open O2 Source 1- Yes (Mask or Cannula) Available Ignition 1- Yes (ESU, Laser, Light Source) Fire Risk 3 Assessment Score Fire Score Fire Risk Yes Assessment Complete Fire Risk Mari Holly, Electronic Organ Technician Verified By Fire Risk 10/12/20 08:00:00 Assessment Verified Date/Time Fire Risk High Risk Protocol Yes Implemented Standard Fire Yes Safety Precautions Followed Last Modified By: Mari Holly Rn 10/12/20 08:03:28 [facility] Endo - General Case Health Safety Coordinator 1 Case Information OR Endo 03 [facility] Case Level 1 Room Verified Yes Wound Class II - Clean-Contaminated Specialty Gastroenterology Anesthesia Type MAC ASA Class 4 Diagnosis Preop Diagnosis nausea and vomiting Postop Same As Preop No Postop Diagnosis hiatal hernia, gastric erythema Last Modified By: Mari Holly Rn 10/12/20 08:05:26 [facility] Endo - General Case Data Audit 10/12/20 08:13:36 Pcas: [id number] Modifier: [id number] 1 <*> Postop Diagnosis hiatal hernia 10/12/20 08:10:39 Pcas: [id number] Modifier: [id number] <+> 1 Postop Diagnosis 10/12/20 08:08:21 Pcas: [id number] Modifier: [id number] 1 <+> Postop Same As Preop 1 <*> Preop Diagnosis nausea 10/12/20 08:08:05 Pcas: [id number] Modifier: [id number] <+> 1 Preop Diagnosis 10/12/20 08:05:26 Pcas: [id number] Modifier: [id number] <+> 1 ASA Class 10/12/20 08:03:22 Pcas: [id number] Modifier: [id number] 1 <-> Preop Diagnosis R63.0/R11.2 [facility] Endo - Intraoperative Assessment Entry 1 Valid History / Yes Physical in Chart Preoperative Yes Checklist Reviewed/Evaluated Patient is Latex No Sensitive Level of WDL Consciousness (WDL = Alert, Oriented to Person, Place, and Time) Last Modified By: Mari Holly Rn 10/12/20 08:04:06 [facility] Endo - Intraoperative Equipment Entry 1 Equipment Intraop Monitoring Electrocardiogram Three lead placement (ECG) Electrode Placement Blood Pressure Arm, left upper Location Pulse Oximeter Hand, right Probe Site Antiembolic Devices Scopes Flexible Endoscopes Gastroscope Used Scope Serial K Number/Identificatio n Number Photo/Video Documentation Photo Yes Video No Last Modified By: Mari Holly Rn 10/12/20 07:57:53 [facility] Endo - Patient Positioning Entry 1 Procedure Esophagogastroduodenosco py, Gastric Biopsy Body Position Lateral, right side up Left Arm Position Resting at side Right Arm Position Resting at side Left Leg Position Other Right Leg Position Other Position Comments Right leg over left leg, uncrossed Feet Uncrossed Yes Pressure Points Yes Checked Positioned By Mari Holly, Marty Position Verified Positioning Yes Verified by Surgeon Last Modified By: Mari Holly Rn 10/12/20 08:04:04 [facility] Endo - Patient Positioning Audit 10/12/20 08:12:38 Pcas: [id number] Modifier: [id number] 1 <*> Procedure Esophagogastroduodenoscopy [facility] Endo - Sign In Entry 1 Patient, Site, Yes Procedure Identified Surgical Consent Yes Confirmed Relevant Surgical Yes Documents Available Surgical Site N/A Marked by person performing procedure Airway Hypothermia Risk No Warming Measures No Taken Last Modified By: Mari Holly Rn 10/12/20 07:57:39 [facility] Endo - Sign Out Entry 1 RN Confirmation Surgical Yes Procedure(s) Identified Instrument, Sponge N/A and Sharps Counts Correct/Documented Equipment Problems N/A Documented Specimen Labeled Yes Correctly Urinary Catheter N/A Documented in IView Safety Checklist Yes Elements Complete? RN Sign Out Mari Holly Rn Signature RN Sign Out 10/12/20 08:16:00 Signature Date/Time Plan of Care Outcome - Fire Risk OUTCOME STATEMENT: Goal met Patient is free from injury related to surgical fire Plan of Care Outcome - Pt Positioning OUTCOME STATEMENT: Goal met Absence of signs and symptoms of positioning injury. Plan of Care Outcome - Skin Prep OUTCOME STATEMENT: Goal met Intraoperative care is consistent with measures to prevent infection Plan of Care Outcome - Xray/Images OUTCOME STATEMENT: N/A Absence of observable signs or symptoms of radiation injury Plan of Care Outcome - Counts OUTCOME STATEMENT: N/A Absence of signs and symptoms of injury related to extraneous objects Last Modified By: Mari Holly Rn 10/12/20 08:14:51 [facility] Endo - Surgical Procedures Entry 1 Entry 2 Procedure Esophagogastroduodenosco Gastric Biopsy py Modifiers Additional Procedure Description Primary Procedure Yes No Primary Surgeon NATE KINNEY MD ASLAM, BILAL, MD Start 10/12/20 08:09:00 10/12/20 08:09:00 Stop 10/12/20 08:14:00 10/12/20 08:14:00 Physician States Cecum Reached Anesthesia Type [facility] Specialty Gastroenterology Gastroenterology Wound Class II - Clean-Contaminated II - Clean-Contaminated Last Modified By: Mari Holly Rn Walker, Mary B, Rn 10/12/20 07:57:32 10/12/20 08:12:35 [facility] Endo - Surgical Procedures Audit 10/12/20 08:14:56 Pcas: [id number] Modifier: [id number] <+> 1 Stop <+> 2 Stop 10/12/20 08:12:35 Pcas: [id number] Modifier: [id number] <+> 1 Start <+> 2 Procedure <+> 2 Primary Procedure <+> 2 Primary Surgeon <+> 2 Specialty <+> 2 Start <+> 2 Wound Class <+> 2 Anesthesia Type [facility] Endo - Time Out Entry 1 Procedure to be Esophagogastroduodenosco Performed py, Gastric Biopsy Time Out Time Out Pause Time 10/12/20 08:06:00 All activity Yes suspended (unless life threatening emergency) Team Verbally Correct patient Confirms Information identity, Consent form is present and accurate, Agreement on the procedure to be done, Correct patient position, Performed in location of procedure after prepped/draped, Performed before each procedure if multiple procedures, Reconcile problems if responses among team members differ Antibiotic N/A Prophylaxis Administered Or In Progress Within the Last 60 Minutes Beta Maggie N/A Administered Venous N/A Thromboembolism Prophylaxis Required Anticipated Critical Events Surgeon None expected Last Modified By: Mari Holly Rn 10/12/20 08:12:38 [facility] Endo - Time Out Audit 10/12/20 08:12:38 Pcas: [id number] Modifier: [id number] 1 <*> Procedure to be Performed Esophagogastroduodenoscopy 10/12/20 08:07:28 Pcas: [id number] Modifier: [id number] 1 <*> Time Out Pause Time 10/12/20 08:03:00 1 <*> Procedure to be Performed Esophagogastroduodenoscopy Case Comments <None> Finalized By: Mari Holly, Rn Document Signatures Signed By: Mari Holly Rn 10/12/20 08:16 documented in this encounter Plan of Treatment Upcoming Encounters Date Type Department Care Team (Late st Contact Info) Description 11/24/2024 2:00 PM EDT Office Visit [facility] [address] [facility] [address] [place] [address] Jalen Enciso MD [address] [facility] [address] [place] [address] documented as of this encounter Visit Diagnoses Not on filedocumented in this encounter Care Teams Wet Chemistry Analyst Relationship Specialty Start Date End Date Kaylene Brooke MD [address] [place] [address] PCP - General General Internal Medicine 01/27/22 Farooq Marcus MD [address] [place] [address] PCP - General Family Medicine 02/27/22 documented as of this encounter
--- OUTSIDE RECORDS SUMMARY | 2024-11-21 21:25 | XMS_ITS | Encounter Summary ---
Author Organization [employer] ([place], [place], [place], [place]) Address [address] [place] [address] Care Team Providers Care Desktop Administrator Name Role Phone Kaylene Brooke MD Primary Care Provider [phone] Farooq Marcus MD Primary Care Provider [phone] Encounter Details Date Type Department Care Team (Late st Contact Info) Description 10/13/2020 Transcribed Document [facility] [place] [facility] [place] [address] ProviderRayray MD [address] [place] [address] Social History Tobacco Use Types Packs/Day Years Used Date Smoking Tobacco: Never Assessed Sex and Gender Information Value Date Recorded Sex Assigned at Not on file Legal Sex Male 5:14 PM CDT Gender Identity Not on file Sexual Orientation Not on file documented as of this encounter Miscellaneous Notes * Cerner Conversion Note - Rayray ProviderMD - 10/13/2020 2:00 AM CDT Manager Managing Details Entered On: 10/13/2020 2:25 EDT Performed On: 10/13/2020 2:00 EDT by Camille Calix RN Order Details Transport Mode Order Detail : Wheelchair Isolation Precautions Order Detail : Standard Precautions Order Detail : N/A IV Order Detail : 0 Oxygen Order Detail : 0 Nurse Collect Order Detail : 0 Lift/Transfer : Minimal Central Line Order Detail : Yes Room Service : Appropriate Arterial Line : No Patient Needs Meds Crushed/Liquid : No Camille Calix RN - 10/13/2020 2:23 EDT documented in this encounter Plan of Treatment Upcoming Encounters Date Type Department Care Team (Late st Contact Info) Description 11/24/2024 2:00 PM EDT Office Visit [facility] - [place] [address] [place] [address] Jalen Enciso MD [address] [place] [address] documented as of this encounter Visit Diagnoses Not on filedocumented in this encounter Care Teams Desktop Administrator Relationship Specialty Start Date End Date Kaylene Brooke MD [address] [place] [address] PCP - General General Internal Medicine 01/27/22 Farooq Marcus MD [address] [place] [place] [address] PCP - General Family Medicine 02/27/22 documented as of this encounter
--- OUTSIDE RECORDS SUMMARY | 2024-11-21 21:25 | XMS_ITS | Encounter Summary ---
Author Organization [employer] ([place], [place], [place], [place]) Address [address] [place] [address] Care Team Providers Care Ampoule Examiner Name Role Phone Kaylene Brooke MD Primary Care Provider [phone] Farooq Marcus MD Primary Care Provider [phone] Encounter Details Date Type Department Care Team (Late st Contact Info) Description 09/23/2020 Transcribed Document [facility] Radiology [address] [place] [id number] Janell Marx MD [address] [place] [address] Social History Tobacco Use Types Packs/Day Years Used Date Smoking Tobacco: Never Assessed Sex and Gender Information Value Date Recorded Sex Assigned at Not on file Legal Sex Male 5:14 PM CDT Gender Identity Not on file Sexual Orientation Not on file documented as of this encounter Miscellaneous Notes * Cerner Conversion Note - Janell Marx MD - 09/23/2020 12:50 PM EDT Patient: RANCHO DEL ANGEL Age: 84 years Sex: Male : 1935 Associated Diagnoses: None Author: JANELL MARX MD-CAR Basic Information PCP: primary cardiology- Dr Mccall Chief Complaint elevated troponin History of Present Illness 84-year-old male with history of coronary disease status post recent stent placement at [facility] 2 months ago, pacemaker placement, history of possible A. fib, esophageal cancer undergoing chemotherapy with Dr. Enciso presented to the emergency room once of abdominal pain nausea and vomiting. Patient states he's been sick since his last chemotherapy on September 17. Patient states he worsened over the last 24 hours and came in for evaluation. Patient had a temperature over 102 last night. His bilirubin is elevated as well as LFTs. Cardiology has been consult at for an elevated troponin. Patient denies any chest pain. He has shortness of breath. No palpitation dizziness. No orthopnea PND or leg swelling. Review of Systems Constitutional: Negative except as documented in history of present illness. Eye: Negative except as documented in history of present illness. Ear/Nose/Mouth/Throat: Negative except as documented in history of present illness. Respiratory: Negative except as documented in history of present illness. Cardiovascular: Negative except as documented in history of present illness. Gastrointestinal: Negative except as documented in history of present illness. Genitourinary: Negative except as documented in history of present illness. Hematology/Lymphatics: Negative except as documented in history of present illness. Endocrine: Negative except as documented in history of present illness. Immunologic: Negative except as documented in history of present illness. Musculoskeletal: Negative except as documented in history of present illness. Integumentary: Negative except as documented in history of present illness. Neurologic: Negative except as documented in history of present illness. Psychiatric: Negative except as documented in history of present illness. Health Status Allergies (1) Active Reaction No Known Allergies None Documented Home Medications (4) Active aspirin 81 mg, Oral, Daily Brilinta (ticagrelor) 90 mg oral tablet LORazepam 1 mg, Oral, TID multivitamin 1 Tab, Oral, Daily Allergies: Allergic Reactions (Selected) No Known Allergies Current medications: (Selected) Inpatient Medications Ordered Colace: 100 mg, Oral, BID Dulcolax Laxative: 5 mg, Oral, Daily, PRN: Constipation DuoNeb 0.5 mg-2.5 mg/3 mL inhalation solution: 3 mL, Nebulized Inhalation, Q6H, PRN: Shortness of Breath LORazepam: 1 mg, Oral, Q8H, PRN: Anxiety Normal Saline 1,000 mL: 125 mL/Hr, IntraVENous PACLitaxel + Sodium Chloride 0.9% intravenous solution 500 mL: 157 mg, 26.17 mL, 581 mL/Hr, IV Piggyback, 1-Time Pepcid + Sodium Chloride 0.9% intravenous solution 50 mL: 20 mg, 2 mL, 180 mL/Hr, IV Piggyback, 1-Time Pepcid: 20 mg, Oral, Daily Roxicodone: 10 mg, Oral, Q4H, PRN: Pain (Moderate 4-6) Sodium Chloride 0.9% intravenous solution: 250 mL, 50 mL/Hr, IntraVENous, 1-Time Tylenol: 650 mg, Oral, Q4H, PRN: Other (See Comment) Zofran: 4 mg, IV Push, Q4H, PRN: Nausea Zosyn + Sodium Chloride 0.9% intravenous solution 100 mL: 3.375 Gram, 33.33 mL/Hr, IV Piggyback, Q6HInt aspirin: 81 mg, Oral, Daily dexAMETHasone + Sodium Chloride 0.9% intravenous solution 50 mL: 20 mg, 5 mL, 189 mL/Hr, IV Piggyback, 1-Time diphenhydrAMINE: 12.5 mg, IV Push, 1-Time enoxaparin: 40 mg, SubCutaneous, Daily granisetron: 1 mg, IV Push, 1-Time hydrALAZINE: 10 mg, IV Push, Q6H, PRN: Hypertension melatonin: 3 mg, Oral, At Bedtime, PRN: Insomnia morphine: 2 mg, IV Push, Q2H, PRN: Pain (Severe 7-10) senna: 8.6 mg, Oral, BID trastuzumab: 614 mL/Hr, IV Piggyback, 1-Time vancomycin + Sodium Chloride 0.9% intravenous solution 250 mL: 1,250 mg, 250 mL/Hr, IV Piggyback, [id number] Problem list: All Problems Anxiety disorder / SNOMED CT 351826994 / Confirmed At risk for sleep apnea / IMO 64146418 / Confirmed Chest pain with high risk for cardiac etiology / SNOMED CT 00221922 / Confirmed Hyperlipidemia / SNOMED CT 97351347 / Confirmed Esophagus cancer / SNOMED CT 842675369 / Confirmed Myocardial infarction / SNOMED CT 44611896 / Confirmed Leg neuralgia / SNOMED CT 17750493 / Confirmed, Active Problems (7) Anxiety disorder At risk for sleep apnea Chest pain with high risk for cardiac etiology Esophagus cancer Hyperlipidemia Leg neuralgia Myocardial infarction Histories No education data available. Social & Psychosocial Habits Alcohol 04/22/2014 Alcohol Use History, Social Habits No Alcohol Use in Last Twelve Months No Substance Abuse 09/08/2020 Recreational Drug Use History No Tobacco 04/22/2014 Smoking Status Never smoker Past Medical History: No active or resolved past medical history items have been selected or recorded. Family History: Entire family history is negative. Procedure history: Pacemaker. cardiac stent. heart cath. colonoscopy. Social History Social & Psychosocial Habits Alcohol 04/22/2014 Alcohol Use History, Social Habits No Alcohol Use in Last Twelve Months No Substance Abuse 09/08/2020 Recreational Drug Use History No Tobacco 04/22/2014 Smoking Status Never smoker . Physical Examination VS/Measurements Vital Signs/Vital Measures 09/23/2020 8:00 EDT Systolic Blood Pressure 98 mmHg Diastolic Blood Pressure 52 mmHg LOW Temperature Source Oral Temperature, Fahrenheit 98.2 Deg F Clinical Temperature, C 36.8 Deg C Heart Rate Monitored 80 bpm Oxygen Saturation 92 % LOW Oxygen Therapy Mode Room air 09/23/2020 6:00 EDT Heart Rate Monitored 70 bpm , Measurements from flowsheet : Measurements 09/23/2020 4:00 EDT Height Source Chart Height Entry Format Barnhart Height/Length, IRAQI (ft) 6 ft Height/Length IRAQI 0 Inch CLINICALHEIGHT 182.88 cm Routine Weight Entry Format Metric 09/22/2020 16:21 EDT Height Source Chart Height Entry Format Barnhart Height/Length, IRAQI (ft) 6 ft Height/Length IRAQI 0 Inch CLINICALHEIGHT 182.88 cm Byron Body Weight 77 kg Weight Source Bed scale Weight Entry Format Barnhart Weight Iranian lb 175 lb CLINICALWEIGHT 79.55 kg Body Surface Area (BSA) 2.01 m2 Body Mass Index 23.8 kg/m2 09/22/2020 9:45 EDT Height Source Stated Height Entry Format Barnhart Height/Length, IRAQI (ft) 6 ft Height/Length IRAQI 0 Inch CLINICALHEIGHT 182.88 cm Byron Body Weight 76.59 kg Weight Source, ED Critical estimated dosing weight Weight Entry Format Barnhart Weight Iranian lb 175 lb CLINICALWEIGHT 79.55 kg Body Surface Area (BSA) 2.01 m2 Body Mass Index 23.8 kg/m2 , Vitals Signs (last 24 hrs) Last Charted Minimum Maximum Temp 98.2 (SEP 23 08:00) 97.7 (SEP 23 05:13) 98.5 (SEP 22 23:20) Mon HR 80 (SEP 23 08:00) 69 (SEP 23 03:17) 98 (SEP 22 13:30) Resp Rate 18 (SEP 23:13) L 10 (SEP 22 23:20) H 27 (SEP 22:) SBP 98 (SEP 23 08:00) L 87 (SEP 22 21:00) 140 (SEP 22 13:30) DBP L 52 (SEP 23 08:00) L 49 (SEP 22 23:20) 60 (SEP 22 13:30) MAP 67 (SEP 23 05:13) 61 (SEP 23 03:17) 86 (SEP 22 13:30) SpO2 L 92 (SEP 23 08:) L 91 (SEP 23 06:00) 97 (SEP 22:15) General: Alert and oriented. HENT: Oral mucosa is moist. Neck: Supple, No jugular venous distention. Respiratory: Lungs are clear to auscultation, Respirations are non-labored, Breath sounds are equal. Cardiovascular: Normal rate, Regular rhythm. Genitourinary: No costovertebral angle tenderness. Lymphatics: No lymphadenopathy neck, axilla, groin. Integumentary: Warm, Dry. Neurologic: Alert, Oriented. Psychiatric: Cooperative, Appropriate mood & affect. Review / Management SEP 23 05:08 139 108 20 / 99 3.7 28 1.10 \ SEP 23 05:08 \ L 8.2 / 8.3 L 116 / L 26.3 \ Cardiac Markers (Current Encounter/Past 24 Hours) ProBNP 2259 pg/mL ND 09/22/2020 11:19 Blood Gases (Current Encounter/Past 24 Hours) No Blood Gas Results Found (Past 24 Hours) Radiology Results (Last 48 hours) [id number] -- 09/22/2020 16:03 CR Chest 1 Vw Portable (09/22/2020 10:37) [...] agree with the above final transcribed report. US Abdominal RT Upper Quad (09/22/2020 17:37) Result: RIGHT UPPER QUADRANT ULTRASOUNDHISTORY: Elevated liver function tests.PROCEDURE: Ultrasound images of the right upper quadrant were obtained.FINDINGS: The pancreas is obscured. The liver is homogeneous with normalechogenicity and contour. The liver is normal in size measuring 14.7 mm.The portal vein is patent with normal hepatopedal flow. The gallbladderis surgically absent. The common bile duct measures 7 mm. The commonhepatic duct measures less than 5 mm. There is no free fluid. The rightkidney demonstrates cortical thinning. The kidney measures 10.8 x 5.1 x5.8 cm. The right renal volume is 165 mL. There are cystic lesionsinvolving the central renal sinus fat. 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 Incidental note is made of a small right pleural effusion.IMPRESSION:1. Homogeneous liver.2. Cholecystectomy with no ductal dilation.3. Right renal cortical thinning with no hydronephrosis.4. Minimal right effusion.Images reviewed, interpreted, and dictated by Sampson Laws MD Results review: Labs (Last four charted values) WBC 8.3 (SEP 23) H 12.8 (SEP 22) HB L 8.2 (SEP 23) L 11.3 (SEP 22) HCT L 26.3 (SEP 23) L 35.5 (SEP 22) Plt L 116 (SEP 23) 189 (SEP 22) Na 139 (SEP 23) 138 (SEP 22) K 3.7 (SEP 23) 4.0 (SEP 22) Cl 108 (SEP 23) 103 (SEP 22) CO2 28 (SEP 23) 28 (SEP 22) BUN 20 (SEP 23) 16 (SEP 22) Cr 1.10 (SEP 23) 1.30 (SEP 22) Glu R 99 (SEP 23) H 120 (SEP 22) Ca L 7.5 (SEP 23) 9.0 (SEP 22) Lactic C 2.8 (SEP 22) C 3.6 (SEP 22) C 2.8 (SEP 22) PT 11.5 (SEP 22) INR 1.1 (SEP 22) AST H 100 (SEP 23) H 269 (SEP 22) ALT H 132 (SEP 23) H 247 (SEP 22) ALK P H 170 (SEP 23) H 343 (SEP 22) T Bili H 1.9 (SEP 23) H 2.8 (SEP 22) PTN L 5.0 (SEP 23) 6.6 (SEP 22) ALB L 2.1 (SEP 23) L 3.0 (SEP 22) Lipase H 1504 (SEP 23) H 5762 (SEP 22) Troponin H 0.272 (SEP 23) C 0.661 (SEP 22) C 0.795 (SEP 22) . Impression and Plan IMPRESSION: *Elevated troponin in the context of acute pancreatitis -trending down *ASCVD -recent PCI per pt at OSH *PPM *Esophageal CA PLAN; Patient denies any chest pain. Troponins now trending down. We'll check an echocardiogram for ejection fraction. Will obtain records from. documented in this encounter Plan of Treatment Upcoming Encounters Date Type Department Care Team (Late st Contact Info) Description 11/24/2024 2:00 PM EDT Office Visit [facility] [place] [address] [place] [address] Jalen Enciso MD [address] [place] [address] documented as of this encounter Visit Diagnoses Not on filedocumented in this encounter Care Teams Ampoule Examiner Relationship Specialty Start Date End Date MendyKaylene dunn MD [address] [place] [address] PCP - General General Internal Medicine 01/27/22 Farooq Marcus MD [address] [place] [address] PCP - General Family Medicine 02/27/22 documented as of this encounter
--- OUTSIDE RECORDS SUMMARY | 2024-11-21 21:25 | XMS_ITS | Encounter Summary ---
Author Organization [employer] ([place], [place], [place], [place]) Address [address] [place] [address] Care Team Providers Care Warning Analyst Name Role Phone Kaylene Brooke MD Primary Care Provider [phone] Farooq Marcus MD Primary Care Provider [phone] Encounter Details Date Type Department Care Team (Late st Contact Info) Description 09/23/2020 Transcribed Document [facility] Family [facility] [place] [address] ProviderRayray MD [address] [place], [place] [address] Social History Tobacco Use Types Packs/Day Years Used Date Smoking Tobacco: Never Assessed Sex and Gender Information Value Date Recorded Sex Assigned at Not on file Legal Sex Male 5:14 PM CDT Gender Identity Not on file Sexual Orientation Not on file documented as of this encounter Miscellaneous Notes * Cerner Conversion Note - Rayray ProviderMD - 09/23/2020 2:00 AM CDT Audiology Director Details Entered On: 09/23/2020 2:38 EDT Performed On: 09/23/2020 2:00 EDT by Sean Guidry Rn Order Details Transport Mode Order Detail : [...] Crushed/Liquid : No Sean Guidry Rn - 09/23/2020 2:38 EDT documented in this encounter Plan of Treatment Upcoming Encounters Date Type Department Care Team (Late st Contact Info) Description 11/24/2024 2:00 PM EDT Office Visit [facility] - [place] [address] [place] [address] Jalen Enciso MD [address] [place] [address] documented as of this encounter Visit Diagnoses Not on filedocumented in this encounter Care Teams Warning Analyst Relationship Specialty Start Date End Date MendyKaylene dunn MD [address] [place] [address] PCP - General General Internal Medicine 01/27/22 Farooq Marcus MD [address] [place] [address] PCP - General Family Medicine 02/27/22 documented as of this encounter
--- OUTSIDE RECORDS SUMMARY | 2024-11-21 21:25 | XMS_ITS | Encounter Summary ---
Author Organization [employer] ([place], [place], [place], [place]) Address [address] [place] [address] Care Team Providers Care Foil Stamp Operator Name Role Phone Kaylene Brooke MD Primary Care Provider [phone] Farooq Marcus MD Primary Care Provider Encounter Details Date Type Department Care Team (Late st Contact Info) Description 09/24/2020 Transcribed Document [facility] [place] [address] [place] [address] ProviderRayray MD [address] [place] [address] Social History Tobacco Use Types Packs/Day Years Used Date Smoking Tobacco: Never Assessed Sex and Gender Information Value Date Recorded Sex Assigned at Not on file Legal Sex Male 5:14 PM CDT Gender Identity Not on file Sexual Orientation Not on file documented as of this encounter Miscellaneous Notes * Cerner Conversion Note - Historical ProviderMD - 09/24/2020 1:26 PM CDT Patient: DOYLE DEL ANGEL Age: 84 years Sex: Male : 1935 Associated Diagnoses: None Author: CRISTINA LUNDBERG, Subjective pt seen by me this morning, at bedside. patient had a rough night last night. he apparently got confused and hallucinated thinking he was at home and had to talk him into stay ing in bed several times. concerned that this was due to the oxycodone. he has been taking morphine iv today and no issues with hallucinations. he is not sleeping well. he trialed some clear liquids last night and abd is more sore today. no n/v. had a small bm last night. no chest pain or coughing. Objective Intake and Output Intake & Output Totals Last 24 Hours (7a-7a) Intake (22 Events) Medications (653.98 mL) Output (0 Events) No output events found in the last 24 hours. Input Total: 653.98 mL Output Total: 0 mL Balance: 653.98 mL VS/Measurements Vitals Signs (last 24 hrs) Last Charted Minimum Maximum Temp 98 (SEP 24 09:06) 98 (SEP 24 09:06) 98.3 (SEP 23:30) Mon HR 69 (SEP 24 09:06) 69 (SEP 24 05:56) 75 (SEP 23 16:30) Resp Rate 18 [...] 94 (SEP 24 03:06) L 92 (SEP 23:30) 97 (SEP 23 22:49) General: No acute distress, alert. Eye: Pupils are equal, round and reactive to light, Normal conjunctiva. HENT: Normocephalic, Normal hearing. Respiratory: Lungs are clear to auscultation, Respirations are non-labored, Breath sounds are equal. Cardiovascular: Normal rate, Regular rhythm, No murmur, No edema. Gastrointestinal: Soft, Non-distended, Normal bowel sounds, slightly tender to palpation RUQ but no rebound tenderness . Integumentary: Warm, Dry. Neurologic: Alert, No focal deficits, oriented to year, tells me that it is october. knows he is in the hospital. . Psychiatric: Cooperative, Appropriate mood & affect. Results Review General results Interpretation: SEP 24 05:26 137 108 16 / 81 3.5 26 1.10 \ PATRICIA 16 05:26 \ L 8.9 / 6.5 L 129 / L 28.9 \ Labs (Last four charted values) WBC 6.5 (SEP 16) 8.3 (SEP 15) H 12.8 (SEP 14) HB L 8.9 (SEP 16) L 8.2 (SEP 15) L 11.3 (SEP 14) HCT L 28.9 (SEP 16) L 26.3 (SEP 15) L 35.5 (SEP 14) Plt L 129 (SEP 16) L 116 (SEP 15) 189 (SEP 14) Na 137 (SEP 16) 139 (SEP 15) 138 (SEP 14) K 3.5 (SEP 16) 3.7 (SEP 15) 4.0 (SEP 22) Cl 108 (SEP 16) 108 (SEP 15) 103 (SEP 14) CO2 26 (SEP 16) 28 (SEP 15) 28 (SEP 14) BUN 16 (SEP 24) 20 (SEP 15) 16 (SEP 14) Cr 1.10 (SEP 16) 1.10 (SEP 15) 1.30 (SEP 14) Glu R 81 (SEP 16) 99 (SEP 15) H 120 (SEP 14) Ca L 8.0 (SEP 16) L 7.5 (SEP 15) 9.0 (SEP 14) Lactic C 2.8 (SEP 22) C 3.6 (SEP 22) C 2.8 (SEP 22) PT 11.5 (SEP 22) INR 1.1 (SEP 22) AST H 60 (SEP 16) H 100 (SEP 15) H 269 (SEP 14) ALT H 102 (SEP 16) H 132 (SEP 15) H 247 (SEP 22) ALK P H 181 (SEP 16) H 170 (SEP 15) H 343 (SEP 14) T Bili H 1.7 (SEP 16) H 1.9 (SEP 15) H 2.8 (SEP 22) PTN L 5.7 (SEP 16) L 5.0 (SEP 15) 6.6 (SEP 14) ALB L 2.3 (SEP 16) L 2.1 (SEP 15) L 3.0 (SEP 22) Lipase H 1504 (SEP 23) H 5762 (SEP 22) Troponin H 0.272 (SEP 23) C 0.661 (SEP 22) C 0.795 (SEP 22) Radiology Results (Last 48 hours) [id number] -- 09/22/2020 16:03 US Abdominal RT Upper Quad (09/22/2020 17:37) [...] by Sampson Laws MD Impression and Plan severe sepsis due to pna - continue zosyn, stop vancomycin today. - bandemia and lactic acidosis level on admission were both elevated but improved pancreatitis, improved - elevated bilirubin noted, pt s/p lap lala per CT scan (pt unaware he had had prior cholecystectomy) - gi consult appreciated, no ercp at this time. -gi started clear liquid diet yesterday, pt with more abd pain today. i instructed patient to take oral intake VERY Slowly. - iv fluids - monitor closely - continue iv morphine prn and stop oxycodone and try tramadol- family concern that confusional episode last night was from oxycodone. esophageal cancer - pt of dr enciso - chemo last week, on 09/17 nstemi - cardiology consult - trend troponins - echo noted - continue aspirin - plavix started coronary artery disease - per pt s/p LHC and PCI [address] topete done at [facility] - pt stopped taking brilinta on his own accord shortly after the PCI as it was making him sob - on aspirin 81 mg daily. syncope 2 weeks ago - two weeks prior to admission, was at [facility] for this stay. depression - start on antidepressant last week with dr enciso - pt and unsure what medication this was. irregular heart rhythm, possibly afib - with pacemaker - follows with dr topete and dr COSTA in [place] d/w d/w rn time spent: 28 min discharge goals: LFT's improving. started clear liquid diet last night and more abdp ain today- continue clear liquid diet only today. dc oxy and prn tramadol ordered. pt confused last night and at risk for hospital delirium. anticipated discharge disposition: home with HH, he likely will need slow advance of diet over the weekend and home nextweek. Cristina Inman Hospitalist pager- [phone] Electronically signed by Nidia [facility] Conversion [employer] Cerner at 06/29/2022 2:22 PM CDT documented in this encounter Plan of Treatment Upcoming Encounters Date Type Department Care Team (Late st Contact Info) Description 11/24/2024 2:00 PM EDT Office Visit [facility] - [place] [address] [place] [address] Jalen Enciso MD [address] [facility] [address] [place] [address] documented as of this encounter Visit Diagnoses Not on filedocumented in this encounter Care Teams Foil Stamp Operator Relationship Specialty Start Date End Date Kaylene Brooke MD [address] [place] [address] PCP - General General Internal Medicine 01/27/22 Farooq Marcus MD [address] [place] [address] PCP - General Family Medicine 02/27/22 documented as of this encounter
--- OUTSIDE RECORDS SUMMARY | 2024-11-21 21:25 | XMS_ITS | Clinical Summary ---
Author Organization Healthcare Address [address] [place] [address] Care Team Providers Care Logistics Tech Name Role Phone Adriana Felder APRN Primary Care Provider [phone] Social History Tobacco Use Types Packs/Day Years Used Date Smoking Tobacco: Never Assessed Sex and Gender Information Value Date Recorded Sex Assigned at Not on file Legal Sex Male 6:52 PM EDT Gender Identity Not on file Sexual Orientation Not on file Last Filed Vital Signs Vital Sign Reading Time Taken Comments Blood Pressure 117/75 10/02/2022 3:00 PM EDT Pulse - - Temperature - - Respiratory Rate - - Oxygen Saturation - - Inhaled Oxygen Concentration - - Weight 63.5 kg (140 lb) 10/02/2022 3:00 PM EDT Height 165.1 cm (5' 5 ) 10/02/2022 3:00 PM EDT Body Mass Index 23.3 10/02/2022 3:00 PM EDT Plan of Treatment Health Maintenance Due Date Last Done Comments [facility]-Depression Screening 1935 [facility]-Infant/Child/Adol SDOH Screenings 1935 [facility]- SDOH Screenings 12/02/1955 [facility]-Adult SDOH Screenings 12/02/1955 [facility]-Pneumococcal Vaccine: 50+ Years (1 of 1 - PCV) 12/02/1987 [facility]-Zoster Vaccines (1 of 2) 12/02/1987 [facility]-RSV Vaccine: 60+ Years or (1 - 1-dose 75+ series) 2012 [id number] Vaccine (4 - 2024- season) 2024 11/10/2020, 05/19/2020, 04/21/2020 [facility]-Influenza Vaccine (#1) 2024 [facility]-DTaP,Tdap,and Td Vaccines (2 - Td or Tdap) 07/31/2031 07/30/2021, 05/15/1996 HPV Vaccines Aged Out No longer eligi ble based on patient's age to complete this topic [facility]-HIB Vaccines Aged Out No longer e ligible based on patient's age to complete this topic [facility]-Hepatitis A Vaccines Aged Out No longer eligible based on patient's age to complete this topic [facility]-IPV Vaccines Aged Out No longer e ligible based on patient's age to complete this topic [facility]-Rotavirus Vaccines Aged Out No lo nger eligible based on patient's age to complete this topic [place] [address] [facility] Care Teams Logistics Tech Relationship Specialty Start Date End Date Adriana Felder APRN [address] [place] [address] PCP - General 07/23/20
--- OUTSIDE RECORDS SUMMARY | 2024-11-21 21:25 | XMS_ITS | Encounter Summary ---
Author Organization [employer] ([place], [place], [place], [place]) Address [address] [place] [address] Care Team Providers Care Childrens Club Attendant Name Role Phone Kaylene Brooke MD Primary Care Provider [phone] Farooq Marcus MD Primary Care Provider [phone] Encounter Details Date Type Department Care Team (Late st Contact Info) Description 01/26/2021 Transcribed Document [facility] [place] [address] [place] [address] ProviderRayray MD [address], [place] [id number] Social History Tobacco Use Types Packs/Day Years Used Date Smoking Tobacco: Never Assessed Sex and Gender Information Value Date Recorded Sex Assigned at Not on file Legal Sex Male 5:14 PM CDT Gender Identity Not on file Sexual Orientation Not on file documented as of this encounter Miscellaneous Notes * Cerner Conversion Note - Historical ProviderMD - 01/26/2021 9:01 AM LINING STUFFER Pre Procedure Adult Entered On: 01/26/2021 9:05 EST Performed On: 01/26/2021 9:01 EST by LATOYA MANDUJANO RN Height and Weight, Clinical Dosing Height Source : Stated Height Entry Format : [place] Height, Feet : 6 ft(Converted to: 183 cm, 72 Inch) Height, Inches : 0 Inch(Converted to: 0 ft 0 Inch, 0.00 cm) Clinical Height : 182.88 cm Weight Source : Standing scale Weight Entry Format : [place] Clinical Dosing Weight : 76.36 kg Weight, Pounds : 168 lb Body Surface Area (BSA) : 1.98 m2 Body Mass Index : 22.8 kg/m2 [place] Body Weight : 77 kg NAZIALATOYA CAMPBELL RN - 01/26/2021 9:01 EST Health Histories Smoking Status : Never (less than 100 in lifetime; none in last 30 days) Smokeless Tobacco Status : Never NAZIA LATOYA LMERA - 01/26/2021 9:01 EST Social History (As Of: 01/26/2021 09:05:11 EST) Tobacco: Smoking Status Never smoker. (Last Updated: 04/22/2014 15:35:05 EST by DARRELL REED, Mera) Alcohol: Alcohol Use History No. Use in Last 12 Months: No. (Last Updated: 04/22/2014 15:34:53 EST by DARRELL REED Rn) Substance Abuse: Drug Use Hx: No. (Last Updated: 09/08/2020 08:39:23 EDT by JUVE GILBERT Rn-Clinical Coordinator I) Infectious Disease History Does patient have symptoms of COVID-19? : No Has the Patient Been Tested for COVID-19 in the last 14 days? : Yes, Patient stated results Negative Does the Patient state known exposure to a COVID-19 positive case in the last 14 days? : No Patient Vaccinated for COVID-19 : Fully vaccinated LATOYA MANDUJANO RN - 01/26/2021 9:01 EST Infectious Disease Risk Screening Grid Cough < 2 wks of unknown origin : NO Cough > 2 weeks : NO Blood in Sputum : NO Fever or self-reported Fever : NO Rash of unknown origin : NO Headache : NO Stiff neck : NO Night Sweats : NO Unexplained Weight Loss : NO Diarrhea (3 episode per day) : NO LATOYA MANDUJANO RN - 01/26/2021 9:01 EST Physical contact outside [place] in the last 30 days : No Hospitalized in Foreign Country : No Infectious Disease History : Chicken pox/Shingles, Measles INF Disease TB Screening Calc : 0 INF Disease Recent Travel Calc : 0 LATOYA MANDUJANO RN - 01/26/2021 9:01 EST COVID19 PreProcedure Screening Is this an Emergent or Add on Procedure? : No Date PreProcedure COVID-19 test known? : Yes Date of PreProcedure COVID-19 : 01/24/2021 EST Has patient been isolated since the test : Yes Exposed to COVID19 symptoms since test? : No LATOYA MANDUJANO RN - 01/26/2021 9:01 EST Anesthesia/Transfusion History Family History of Anesthesia Reaction : No prior transfusion(s) Transfusion History : Prior anesthesia without reaction Family History of Anesthesia Reaction : None LATOYA MANDUJANO RN - 01/26/2021 9:01 EST Functional Assessment Living Situation : Home Patient Lives With : Spouse Current Home Treatments : None LATOYA MANDUJANO RN - 01/26/2021 9:01 EST [place] Suicide Severity Rating Scale (C-SSRS) CSSRS Past Month Wish to be : No CSSRS Past Month Suicidal Thoughts : No CSSRS Lifetime Suicide Behavior : No Suicide Severity Rating Score : 0 Suicide Severity Rating : No Additional Care Required at this time LATOYA MANDUJANO RN - 01/26/2021 9:01 EST Psychosocial History Currently in Unsafe Situation : No LATOYA MANDUJANO RN - 01/26/2021 9:01 EST Advance Directive Patient has Advance Directive *Q : Yes, Advance Directive not with the patient Advance Directive Type : Living will Copy Advance Directive Verified/on Chart : No LATOYA MANDUJANO RN - 01/26/2021 9:01 EST Teaching/Learning Assessment Barriers To Learning : None evident Individuals Taught : Patient, Spouse LATOYA MANDUJANO RN - 01/26/2021 9:01 EST Education Topics, Periop Preadmission Perioperative Education Grid Arrival Time/Place : Verbalizes understanding Falls : Verbalizes understanding Infection Control : Verbalizes understanding IV's : Verbalizes understanding NPO Status/Directions : Verbalizes understanding Pain Management : Verbalizes understanding Postoperative Care Preparations : Verbalizes understanding Preprocedure Preparations : Verbalizes understanding Preprocedure Tests/Labs : Verbalizes understanding Responsible Adult : Verbalizes understanding LATOYA MANDUJANO RN - 01/26/2021 9:01 EST General Info Legal Guardian : No Support Person/Patient Escort Patients : Yes Support Person/Pt Rep Name : Brandee Del Angel - Contact Password : Cat Support Person/Pt Rep Contact Information : [phone] Want Family/Rep/Phys Notified of Admit : No Emergency Contact #1 : . Emergency Contact #1 Phone Number : . Emergency Contact #1 Relationship : . Emergency Contact #2 : . Emergency Contact #2 Phone Number : . Emergency Contact #2 Relationship : . Primary Language : Sami Communication Barrier : None Institutional Asset Manager Needed : No LATOYA MANDUJANO RN - 01/26/2021 9:01 EST Sleep Apnea Risk Assmt Hx of Obstructive Sleep Apnea Diagnosis : No Snore Loudly : No Tired, Fatigued, or Sleepy During Day : No Observed Stopping Breathing During Sleep : No Have/Are Being Treated for Hypertension : No BMI Greater Than 35 kg/m2 : No Age over 50 Years Old : Yes Neck Circumference Greater Than 40 cm : No Gender Male : Yes STOP-BANG Sleep Apnea Risk Level Score : 2 LATOYA MANDUJANO RN - 01/26/2021 9:01 EST Segun Scale Segun Sensory Perception : No impairment Segun Moisture : Rarely moist Segun Activity : Walks occasionally Segun Mobility : Slightly limited Segun Nutrition : Probably inadequate Segun Friction and Shear : No apparent problem Segun Score : 19 LATOYA MANDUJANO RN - 01/26/2021 9:01 EST Pain Assessment Pain Assessment : Initial assessment Pain Scale Used : 0-10 Scale LATOYA MANDUJANO RN - 01/26/2021 9:01 EST Fall Risk Scales ABCs Fall Injury Risk Identification : Age ABC Fall Injury Risk : Moderate to high injury risk HERRERA Hx Falls Immediate/Within 3 Months : Yes Herrera Secondary Diagnosis : Yes HERRERA Use of Ambulatory Aid : None HERRERA IV Therapy or IV Access : Yes Herrera Gait/Transferring : Normal, bedrest, immobile Herrera Mental Status : Overestimates/Forgets limitations Herrera Fall Risk Score : 75 HERRERA Fall Scale Risk Level : 46 or > High Risk [place] Fall Interventions : Adequate lighting, Assistive devices within reach, Bed in low position, Personal items within reach, Reinforced to call for assistance before getting out of bed, Room free of clutter/spills LATOYA MANDUJANO RN - 01/26/2021 9:01 EST Valuables and Belongings Valuables and Belongings : Clothing Clothing : Common streetwear Clothing Disposition : Bedside, With family LATOYA MANDUJANO RN - 01/26/2021 9:01 EST Pain Scale Intensity : 0 LATOYA MANDUJANO RN - 01/26/2021 9:01 EST Image 4 - Images currently included in the form version of this document have not been included in the text rendition version of the form. documented in this encounter Plan of Treatment Upcoming Encounters Date Type Department Care Team (Late st Contact Info) Description 11/24/2024 2:00 PM EDT Office Visit [facility] [place] [address] [place] [address] Jalen Enciso MD [address] [place] [address] documented as of this encounter Visit Diagnoses Not on filedocumented in this encounter Care Teams Childrens Club Attendant Relationship Specialty Start Date End Date MendyKaylene dunn MD [address] [place] [address] PCP - General General Internal Medicine 01/27/22 Farooq Marcus MD [address] [place] [address] PCP - General Family Medicine 02/27/22 documented as of this encounter
--- OUTSIDE RECORDS SUMMARY | 2024-11-21 21:25 | XMS_ITS | Encounter Summary ---
Author Organization [employer] ([place], [place], [place], [place]) Address [address] [place] [address] Care Team Providers Care Guest Relations Associate Name Role Phone Kaylene Brooke MD Primary Care Provider [phone] Farooq Marcus MD Primary Care Provider [phone] Encounter Details Date Type Department Care Team (Late st Contact Info) Description 10/12/2020 Transcribed Document [facility] [place] [facility] [place] [address] Rayray San MD [address] [place] [address] Social History Tobacco Use Types Packs/Day Years Used Date Smoking Tobacco: Never Assessed Sex and Gender Information Value Date Recorded Sex Assigned at Not on file Legal Sex Male 5:14 PM CDT Gender Identity Not on file Sexual Orientation Not on file documented as of this encounter Miscellaneous Notes * Cerner Conversion Note - Rayray San MD - 10/12/2020 8:29 AM CDT Patient: DOYLE DEL ANGEL Age: 84 Years Sex: Male : 1935 *Operation Esophagogastroduodenoscopy, Gastric Biopsy, Anesthesia Type ALBERTO DANG MD-ANS (Anesthesiologist of Record) ALBERTO DNAG MD-ANS (Anesthesiologist of Record) Indication for Surgery N/V/anorexia *Preoperative Diagnosis nausea and vomiting *Postoperative Diagnosis hiatal hernia, gastric erythema *Surgeon(s) Primary Surgeon NATE KINNEY MD (Surgeon/Proceduralist, First) *Estimated Blood Loss 0 *Findings Hiatal hernia Cardia erythema Gastric biopsies for H pylori PLAN: Followup biopsy results. Continue supportive care. *Specimen(s) Gastric bx Complications None Date of Service Date/Time of Service SN - Proc - Start Time: 10/12/20 08:09:00 (10/12/20 08:12:35) SN - Proc - Start Time: 10/12/20 08:09:00 (10/12/20 08:12:35) Electronically signed by Nidia, [facility] Conversion Production Editor Cerner at 06/29/2022 2:11 PM CDT documented in this encounter Plan of Treatment Upcoming Encounters Date Type Department Care Team (Late st Contact Info) Description 11/24/2024 2:00 PM EDT Office Visit [facility] - [place] [address] [place] [address] Jalen Enciso MD [address] [facility] [address] [facility] [address] [place] [address] documented as of this encounter Visit Diagnoses Not on filedocumented in this encounter Care Teams Guest Relations Associate Relationship Specialty Start Date End Date Kaylene Brooke MD [address] [place] [address] PCP - General General Internal Medicine 01/27/22 Farooq Marcus MD [address] [place] [address] PCP - General Family Medicine 02/27/22 documented as of this encounter
--- OUTSIDE RECORDS SUMMARY | 2024-11-21 21:25 | XMS_ITS | Encounter Summary ---
Author Organization [employer] ([place], [place], [place], [place]) Address [address] [place] [address] Care Team Providers Care Sash Finisher Name Role Phone Kaylene Brooke MD Primary Care Provider [phone] Farooq Marcus MD Primary Care Provider [phone] Encounter Details Date Type Department Care Team (Late st Contact Info) Description 10/11/2020 Transcribed Document [facility] [place] [facility] [place] [address] Rayray San MD [address] [place] [address] Social History Tobacco Use Types Packs/Day Years Used Date Smoking Tobacco: Never Assessed Sex and Gender Information Value Date Recorded Sex Assigned at Not on file Legal Sex Male 5:14 PM CDT Gender Identity Not on file Sexual Orientation Not on file documented as of this encounter Miscellaneous Notes * Cerner Conversion Note - Historical MD Jaswinder - 10/11/2020 2:36 PM CDT Patient: RANCHO DEL ANGEL Age: 84 Years Sex: Male : 1935 Chief Complaint nausea, vomiting for several weeks. radiation and chemo completed 3 weeks ago for esophageal cancer. Reason for Consultation Anorexia/ hx of esophageal CA History of Present Illness Mr Del Angel is an 84 year old male with hx of esophageal cancer, HLD, [place], and anxiety. His last chemotherapy was 09/17/2020 and no plans to continue. He was admitted to the hospital shortly after that date for NSTEMI and acute pancreatitis, he was discharged on 09/28/2020. He and his states he was doing better for 2-3 days, however nausea gradually returned and has progressively gotten worse, he has been vomiting the past few days. Zofran 8mg at home was helping the nausea but not anymore. He is on antibiotic therapy, bactrim ds, for the past few months for possible UTI. He denies abdominal pain but complains of nausea and lack of appetite. Denies difficulty swallowing but states he has to be very careful with eating. He reports he has tolerated liquids today and is feeling somewhat better. Swallow evaluation was performed yesterday. Recommendations below. GI has been consulted for anorexia/persistent nausea for possible EGD. Bedside Swallow Overall Impressions : Patient is an 84 year old male with esophageal cancer status post last chemo on 09/17. He is admitted for dehydration due to severe nausea and vomitting that is impacting his ability to eat/drink. Patient denies feeling material get stuck in his throat or coughing w/PO. Patient presents with oropharyngeal swallow seemingly within functional limits. No overt signs or symptoms of aspiration noted w/thin, pudding or solid. Oral phase was timely considering lack of dentition and no oral residue noted. Based on patient complaints/history of hiatal hernia and esophageal cancer, recommend GI consult for full barium study to asses the movement of material through the esophagus. RN reported patient has some difficulty w/medications, recommend meds in pudding if able. Patient is currently on a liquid diet which he stated he does not like, spoke to MD and she was ok w/upgrade to regular diet. No further dysphagia services warranted, BAND SAWMILL OPERATOR will sign off. Please reconsult if new concerns arise. Review of Systems A complete Review of systems was performed, all other systems were reviewed and are negative except as stated within the HPI. Vital Signs T: 36.5 ??C TMIN: 36.4 ??C TMAX: 36.8 ??C HR: 69(Monitored) RR: 16 BP: 130/70 SpO2: 94% HT: 182.88 cm WT: 68.18 kg BMI: 20.4 Oxygen Settings (Last) Oxygen Therapy Mode: Room air (10/11/20 08:00:00) Physical Exam General: Alert and oriented, chronically ill, no acute distress, cachectic. Neurologic: Awake, alert, and oriented X3, CN II-XII intact. Eye: PERRL, EOMI, normal conjunctiva, no scleral icterus HENT: Normocephalic, normal hearing, moist oral mucosa. Neck: Supple, non-tender, no lymphadenopathy. Lungs: Clear to auscultation, non-labored respiration. Heart: Normal rate, regular rhythm, no murmur, or edema. Abdomen: Soft, non-tender, non-distended, normal bowel sounds, no masses.No high pitched or tinkling sounds. No guarding or rebound. Musculoskeletal: Normal range of motion and strength, no joint tenderness or swelling. Skin: Skin is warm, dry and pink, no rashes or lesions. Psychiatric: Cooperative, appropriate mood and affect. Assessment/Plan Anorexia/hx of esophageal CA N/V Labs unremarkable. He reports he is tolerating liquids without vomiting or abdominal pain. Plan for EGD tomorrow to further evaluate for possible gastritis, esophageal stricture, PUD. Pt. agreeable to EGD in AM. Risks vs benefits discussed, such as bleeding, perforation, infection, reaction to anaesthesia, missed lesion, complication requiring additional surgery or procedures, failure to be able to complete procedure. . Pt will have additional opportunity to discuss this with the ordering/performing physician and have additional questions asked/answered prior to the procedure. H&P above was performed by Ruth Wallace PA-C and discussed with Dr. Kinney. IKen, have personally interviewed the patient, reviewed the chart, performed the physical exam and formulated the treatment plan. Thank you for this consultation! Orders: NPO after Midnight Verify Patient Consent Obtained Verify Patient Consent Obtained VTE Prophylaxis - Medical Clopidogrel 75 mg, Oral, Tab, Daily, Start 10/10/20 9:00:00 EDT (PARKER RAVI MD-INT) Sequential Compression Device Start: 10/09/20 16:55:00 EDT, Bilateral, Continuous Order (SASHA PEREZ PA-C) Provider Information Primary Care Physician - MAZIN SHERIDAN [facility] Attending Physician - KEISHA TUCKER MD Admitting Physician - KEISHA TUCKER MD Consulting Physician - JALEN ENCISO MD-[facility] - esoph cancer, has an appt on 10/11 will be inpatient Consulting Physician - MAXIMILIANO WALTERS MD-ONC Consulting Physician - PREETI BENJAMIN MD-[facility] - anorexia, early satiety. ?EGD Consulting Physician - KEN KINNEY MD Referring Physician - SHAINA, NOT LISTED Problem List/Past Medical History Ongoing Anxiety disorder At risk for sleep apnea Chest pain with high risk for cardiac etiology Esophagus cancer Hyperlipidemia Leg neuralgia Myocardial infarction Severe protein-calorie malnutrition Historical No qualifying data Procedure/Surgical History INSERTION OF INFUSION DEV INTO SUP VENA CAVA, PERC APPROACH (09/26/2020), ULTRASONOGRAPHY OF HEART WITH AORTA (09/23/2020), ISOLATION (09/22/2020), cardiac stent, colonoscopy, heart cath, Pacemaker. Medications Inpatient aspirin, 81 mg= 1 Tab, Oral, Daily Carafate, 1 Gram= 10 mL, Oral, TIDAC clopidogrel, 75 mg= 1 Tab, Oral, Daily Dulcolax Laxative, 5 mg= 1 Tab, Oral, Daily, PRN DuoNeb 0.5 mg-2.5 mg/3 mL inhalation solution, 3 mL, Nebulized Inhalation , Q6H, PRN Effexor XR, 150 mg= 1 Cap, Oral, Daily hydrALAZINE, 10 mg= 0.5 mL, IV Push, Q6H, PRN LORazepam, 1 mg= 1 Tab, Oral, [...] Hx: No. Tobacco Smoking Status Never smoker. Family History No family hx of GI disease or malignancy Diagnostic Results Reason For Exam History Of Cancer REPORT CT HEAD WITHOUT AND WITH CONTRAST HISTORY: [...] abnormal contrast enhancement to suggest metastatic disease. Lab Results Test Name Test Result Date/Time Sodium Level 138 mmol/L 10/11/2020 05:59 EDT Potassium Level 3.9 mmol/L 10/11/2020 05:59 EDT Chloride Level 105 mmol/L 10/11/2020 05:59 EDT Carbon Dioxide Level 30 mmol/L 10/11/2020 05:59 EDT Anion Gap 7 (Low) 10/11/2020 05:59 EDT Glucose Level 85 mg/dL 10/11/2020 05:59 EDT Blood Urea Nitrogen 7 mg/dL 10/11/2020 05:59 EDT Creatinine Level 0.90 mg/dL 10/11/2020 05:59 EDT eGFR >60 mL/min/1.73m2 10/11/2020 05:59 EDT eGFR NonAfrican >60 mL/min/1.73m2 10/11/2020 05:59 EDT Bun/Creatinine 7.8 (Low) 10/11/2020 05:59 EDT Calcium Level 8.8 mg/dL 10/11/2020 05:59 EDT WBC 5.5 K/uL 10/11/2020 05:45 EDT RBC 3.31 Million/uL (Low) 10/11/2020 05:45 EDT Hgb 10.0 g/dL (Low) 10/11/2020 05:45 EDT Hct 32.0 % (Low) 10/11/2020 05:45 EDT MCV 96.7 fL (High) 10/11/2020 05:45 EDT MCH 30.2 pg 10/11/2020 05:45 EDT MCHC 31.3 Gram/dL (Low) 10/11/2020 05:45 EDT Platelet Count 258 K/uL 10/11/2020 05:45 EDT MPV 8.6 fL (Low) 10/11/2020 05:45 EDT RDW 14.6 % 10/11/2020 05:45 EDT Neut % 73.4 % (High) 10/11/2020 05:45 EDT Neut # 4.01 K/uL 10/11/2020 05:45 EDT Lymph % 9.1 % (Low) 10/11/2020 05:45 EDT Lymph # 0.50 x10(3)/uL (Low) 10/11/2020 05:45 EDT Dodge % 11.7 % (High) 10/11/2020 05:45 EDT Dodge # 0.64 K/uL 10/11/2020 05:45 EDT Eos % 4.2 % 10/11/2020 05:45 EDT Eos # 0.23 x10(3)/uL 10/11/2020 05:45 EDT Baso % 0.9 % 10/11/2020 05:45 EDT Baso # 0.05 x10(3)/uL 10/11/2020 05:45 EDT Slide Review No 10/11/2020 05:45 EDT IG# 0.04 x10(3)/uL 10/11/2020 05:45 EDT IG% 0.70 % (High) 10/11/2020 05:45 EDT [1] CT Head WO W; ERIKA HARDEN 10/10/2020 16:08 EDT Electronically signed by [facility] Conversion Rail Crew Member Cerner at 06/29/2022 2:18 PM CDT documented in this encounter Plan of Treatment Upcoming Encounters Date Type Department Care Team (Late st Contact Info) Description 11/24/2024 2:00 PM EDT [facility] [address] [place] [address] Jalen Enciso MD [address] [place] [address] documented as of this encounter Visit Diagnoses Not on filedocumented in this encounter Care Teams Sash Finisher Relationship Specialty Start Date End Date Kaylene Brooke MD [address] [place] [address] PCP - General General Internal Medicine 01/27/22 Farooq Marcus MD [address] [place] [address] PCP - General Family Medicine 02/27/22 documented as of this encounter
--- OUTSIDE RECORDS SUMMARY | 2024-11-21 21:25 | XMS_ITS | Encounter Summary ---
Author Organization [employer] ([place], [place], [place], [place]) Address [address] [place] [address] Care Team Providers Care Linen Supply Load Builder Name Role Phone Kaylene Brooke MD Primary Care Provider [phone] Farooq Marcus MD Primary Care Provider [phone] Encounter Details Date Type Department Care Team (Late st Contact Info) Description 10/11/2020 Transcribed Document [facility] [place] Family Medicine [facility] [place] [address] ProviderRayray MD [address] [place] [address] Social History Tobacco Use Types Packs/Day Years Used Date Smoking Tobacco: Never Assessed Sex and Gender Information Value Date Recorded Sex Assigned at Not on file Legal Sex Male 5:14 PM CDT Gender Identity Not on file Sexual Orientation Not on file documented as of this encounter Miscellaneous Notes * Cerner Conversion Note - Rayray ProviderMD - 10/11/2020 11:28 AM CDT Admission History, Adult Entered On: 10/11/2020 11:29 EDT Performed On: 10/11/2020 11:28 EDT by YOVANI BERNSTEIN RN Advance Directive Patient has Advance Directive *Q : Yes, Advance Directive on file Advance Directive Type : Living will Copy Advance Directive Verified/on Chart : No YOVANI BERNSTEIN RN - 10/11/2020 11:28 EDT Anesthesia/Transfusion History Family History of Anesthesia Reaction : No prior transfusion(s) Transfusion History : Prior anesthesia without reaction Family History of Anesthesia Reaction : None YOVANI BERNSTEIN RN - 10/11/2020 11:28 EDT Functional Assessment Living Situation : Home HERRERA Hx Falls Immediate/Within 3 Months : Yes Current Home Treatments : None YOVANI BERNSTEIN RN - 10/11/2020 11:28 EDT General Info Mode of Arrival on Unit : Ambulatory Legal Guardian : Significant other Legal Guardian : No Support Person/Patient Rn Birthing : Yes Support Person/Pt Rep Name : Brandee Del Angel - Contact Password : Cat Support Person/Pt Rep Contact Information : [phone] Want Family/Rep/Phys Notified of Admit : No [...] From : Patient, Spouse Primary Language : Nigerian Communication Barrier : None Sales Operations Manager Needed : No YOVANI BERNSTEIN RN - 10/11/2020 11:28 EDT Fall Risk Scales ABCs Fall Injury Risk Identification : None HERRERA Hx Falls Immediate/Within 3 Months : Yes Herrera Secondary Diagnosis : No HERRERA Use of Ambulatory Aid : None HERRERA IV Therapy or IV Access : Yes Herrera Gait/Transferring : Normal, bedrest, immobile Herrera Mental Status : Oriented to own ability Herrera Fall Risk Score : 45 HERRERA Fall Scale Risk Level : 25-45 Medium Risk Hopkins Fall Interventions : Personal items within reach Barriers to Learning : None evident Learning Style Preferences Family : Verbal explanation Learning Style Preferences Patient : Verbal explanation YOVANI BERNSTEIN RN - 10/11/2020 11:28 EDT Health Histories Smoking Status : Never (less than 100 in lifetime; none in last 30 days) Smokeless Tobacco Status : Never YOVANI BERNSTEIN RN - 10/11/2020 11:28 EDT Social History (As Of: 10/11/2020 11:29:35 EDT) Tobacco: Smoking Status Never smoker. (Last [...] Source : Stated Height Entry Format : [place]es Height, Feet : 6 ft(Converted to: 183 cm, 72 Inch) Height, Inches : 0 Inch(Converted to: 0 ft 0 Inch, 0.00 cm) Clinical Height : 182.88 cm Weight Source : Bed scale Weight Entry Format : Karnes Clinical Dosing Weight : 68.18 kg Weight, Pounds : 150 lb Body Surface Area (BSA) : 1.89 m2 Body Mass Index : 20.4 kg/m2 [place] Body Weight : 77 kg YOVANI BERNSTEIN RN - 10/11/2020 11:28 EDT Infectious Disease History Has the patient [...] Chicken pox/Shingles, Measles Tuberculosis Symptoms : None YOVANI BERNSTEIN RN - 10/11/2020 11:28 EDT Influenza Vaccine Asmt, Adult Previous Vaccines from Immunization Schedule : No qualifying data available. Influenza Immunization, Current Season : No Inactivated Flu Vaccine Contraindications : No contraindications to inactivated influenza vaccine Transplant Workup/Recent Transplant : No Order for Influenza Vaccine : Declined Vaccination YOVANI BERNSTEIN RN - 10/11/2020 11:28 EDT Pneumococcal Vaccine Previous Vaccines from Immunization Schedule : No qualifying data available. Pneumonia Immunization Received : Yes YOVANI BERNSTEIN RN - 10/11/2020 11:28 EDT Order Details Isolation Precautions Order Detail : Standard Precautions Order Detail : N/A IV Order Detail : 1 Oxygen Order Detail : 0 Lift/Transfer : Minimal Central Line Order Detail : No Room Service : Appropriate Arterial Line : No Patient Needs Meds Crushed/Liquid : No YOVANI BERNSTEIN RN - 10/11/2020 11:28 EDT Nutrition History Adaptive Feeding Equipment : Regular Eating Poorly Due to Decreased Appetite : Yes Unplanned Weight Loss in Past 3-6 Months : Yes Unplanned Weight Loss Amount : 24-33 lbs/10.6-15 kg Malnutrition Screening Tool Total(mal) : 4 Malnutrition Screening Tool Risk Level : Patient at risk YOVANI BERNSTEIN RN - 10/11/2020 11:28 EDT [place] Suicide Severity Rating Scale (C-SSRS) CSSRS Past Month Wish to be : No CSSRS Past Month Suicidal Thoughts : No CSSRS Lifetime Suicide Behavior : No Suicide Severity Rating Score : 0 Suicide Severity Rating : No Additional Care Required at this time YOVANI BERNSTEIN RN - 10/11/2020 11:28 EDT Psychosocial History Currently in Unsafe Situation : No YOVANI BERNSTEIN RN - 10/11/2020 11:28 EDT Sleep Apnea Risk Assmt Hx of [...] Sleep Apnea Risk Level Score : 3 YOVANI BERNSTEIN RN - 10/11/2020 11:28 EDT Valuables and Belongings Valuables and Belongings : No clothing, No comfort items, No jewelry, No personal devices, No personal items, No assistive devices, No respiratory devices, No medications YOVANI BERNSTEIN RN - 10/11/2020 11:28 EDT Electronically signed by Malina Jacob Conversion Automatic Riveting Machine Operator Cerner at 06/29/2022 2:28 PM CDT documented in this encounter Plan of Treatment Upcoming Encounters Date Type Department Care Team (Late st Contact Info) Description 11/24/2024 2:00 PM EDT Office Visit [facility] - [address] [facility] [address] [place] [address] Jalen Enciso MD [address] [place] [address] documented as of this encounter Visit Diagnoses Not on filedocumented in this encounter Care Teams Linen Supply Load Builder Relationship Specialty Start Date End Date Kaylene Brooke MD [address] [place] [address] PCP - General General Internal Medicine 01/27/22 Farooq Marcus MD [address] [place] [address] PCP - General Family Medicine 02/27/22 documented as of this encounter
--- OUTSIDE RECORDS SUMMARY | 2024-11-21 21:25 | XMS_ITS | Encounter Summary ---
Author Organization [employer] ([place], [place], [place], [place]) Address [address] [place] [address] Care Team Providers Care Correctional Facility Nurse Name Role Phone Kaylene Brooke MD Primary Care Provider [phone] Farooq Marcus MD Primary Care Provider [phone] Encounter Details Date Type Department Care Team (Late st Contact Info) Description 09/23/2020 Transcribed Document [facility] [place] [address] ProviderRayray MD [address] [place] [address] Social History Tobacco Use Types Packs/Day Years Used Date Smoking Tobacco: Never Assessed Sex and Gender Information Value Date Recorded Sex Assigned at Not on file Legal Sex Male 5:14 PM CDT Gender Identity Not on file Sexual Orientation Not on file documented as of this encounter Miscellaneous Notes * Cerner Conversion Note - Rayray San MD - 09/23/2020 9:44 AM CDT Patient: DOYLE DEL ANGEL Age: 84 years Sex: Male : 1935 Associated Diagnoses: None Author: JALEN ENCISO MD-ONC Attachments: None Subjective Chief complaint Chief complaint pATIENT WELL KNOWN TO ME WITH 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 hE HAS BEEN ON HERCEPTIN AND TAXOL AND RECEIVED LAST CYCLE OF THERAPY(CYCLE 5) LAST WEEK. hE PRESENTS with abdominal pain with nausea/vomiting of recent onset. He feels some better this AM/ Health Status Allergies Allergies (1) Active Reaction No Known Allergies None Documented Current medications Medications (17) Active Scheduled: (7) aspirin 81 mg chew tab 81 mg 1 Tab, Oral, Daily docusate sodium 100 mg cap 100 mg 1 Cap, Oral, BID enoxaparin 40 mg/0.4 mL inj 40 mg 0.4 mL, SubCutaneous, Daily famotidine 20 mg tab 20 mg 1 Tab, Oral, Daily piperacillin-tazobactam + NaCl 0.9% 100 mL 3.375 Gram, IV Piggyback, Q6HInt senna 8.6 mg tab 8.6 mg 1 Tab, Oral, BID vancomycin + NaCl 0.9% 250 mL 1,250 mg, IV Piggyback, Q22TFxp Continuous: (1) NaCl 0.9% 1,000 mL 1,000 mL, IntraVENous, 125 mL/Hr PRN: (9) acetaminophen 325 mg tab 650 mg 2 Tab, Oral, Q4H albuterol-ipratropium inh 3 mL 3 mL, Nebulized Inhalation, Q6H bisacodyl EC 5 mg tab 5 mg 1 Tab, Oral, Daily hydrALAZINE 20 mg/1 mL inj 10 mg 0.5 mL, IV Push, Q6H LORazepam 1 mg tab 1 mg 1 Tab, Oral, Q8H melatonin 3 mg tab 3 mg 1 Tab, Oral, At Bedtime morphine 2 mg/1 ml inj 2 mg 1 mL, IV Push, Q2H ondansetron 4 mg/2 mL inj 4 mg 2 mL, IV Push, Q4H oxyCODONE 5 mg tab 10 mg 2 Tab, Oral, Q4H Objective General Alert and oriented Mild distress Eye Pupils are equal, round and reactive to light HENT Normocephalic Neck Supple Respiratory Lungs are clear to auscultation Respirations are non-labored Cardiovascular Normal rate Regular rhythm Gastrointestinal Pain in right upper quadrant. No bloating or distension Impression and Plan Assessment and Plan Diagnosis Pancreatitis. Esophageal cancer in remission on chemotherapy. Course Progressing as expected Orders I'm uncertain of relationship of chemo with pancreatitis but would not be surprised they are related. For now will watch blood counts and hold further therapy. Discussed with patient and spouse. documented in this encounter Plan of Treatment Upcoming Encounters Date Type Department Care Team (Late Contact Info) Description 11/24/2024 2:00 PM EDT Office Visit [facility] - [address] [place] [address] Jalen Enciso MD [address] [place] [address] documented as of this encounter Visit Diagnoses Not on filedocumented in this encounter Care Teams Correctional Facility Nurse Relationship Specialty Start Date End Date MendyKaylene dunn MD [address] [place] [address] PCP - General General Internal Medicine 01/27/22 Farooq Marcus MD [address] [place] [address] PCP - General Family Medicine 02/27/22 documented as of this encounter
--- OUTSIDE RECORDS SUMMARY | 2024-11-21 21:25 | XMS_ITS | Encounter Summary ---
Author Organization [employer] ([place], [place], [place], [place]) Address [address] [place] [address] Care Team Providers Care Food And Beverage Checker Name Role Phone Kaylene Brooke MD Primary Care Provider [phone] Farooq Marcus MD Primary Care Provider [phone] Encounter Details Date Type Department Care Team (Late st Contact Info) Description 09/23/2020 Transcribed Document [facility] [place] Family Medicine [address] [place] [address] ProviderRayray MD [address] [place], [place] [address] Social History Tobacco Use Types Packs/Day Years Used Date Smoking Tobacco: Never Assessed Sex and Gender Information Value Date Recorded Sex Assigned at Not on file Legal Sex Male 5:14 PM CDT Gender Identity Not on file Sexual Orientation Not on file documented as of this encounter Miscellaneous Notes * Cerner Conversion Note - Historical ProviderMD - 09/23/2020 4:00 AM CDT Attempt to Treat Entered On: 09/23/2020 4:13 EDT Performed On: 09/23/2020 4:00 EDT by BANG OSBORN Chaplain Attempt to Treat Unable to Treat Due To : Other: Sleeping Inability to Treat Comment : prayed o/s pt. room. Focus: restorative sleep followed by renewed strength and jeanna in AM coupled with renewed realization of God's presence, peace, and eternal provision for body, soul, and spirit in throughout hospital stay. BANG OSBORN Chaplain - 09/23/2020 4:13 EDT documented in this encounter Plan of Treatment Upcoming Encounters Date Type Department Care Team (Late st Contact Info) Description 11/24/2024 2:00 PM EDT Office Visit [facility] - [address] [place] [address] Jalen Enciso MD [address] [place] [place] [address] documented as of this encounter Visit Diagnoses Not on filedocumented in this encounter Care Teams Food And Beverage Checker Relationship Specialty Start Date End Date MendyKaylene dunn MD [address] [place] [address] PCP - General General Internal Medicine 01/27/22 Farooq Marcus MD [address] [facility] [place] [address] PCP - General Family Medicine 02/27/22 documented as of this encounter
--- OUTSIDE RECORDS SUMMARY | 2024-11-21 21:25 | XMS_ITS | Encounter Summary ---
Author Organization [employer] ([place], [place], [place], [place]) Address [address] [place] [address] Care Team Providers Care Pulpwood Contractor Name Role Phone Kaylene Brooke MD Primary Care Provider [phone] Farooq Marcus MD Primary Care Provider [phone] Encounter Details Date Type Department Care Team (Late st Contact Info) Description 10/12/2020 Transcribed Document [facility] [place] [address] [place] [address] ProviderRayray MD [address] [place], [place] [address] Social History Tobacco Use Types Packs/Day Years Used Date Smoking Tobacco: Never Assessed Sex and Gender Information Value Date Recorded Sex Assigned at Not on file Legal Sex Male 5:14 PM CDT Gender Identity Not on file Sexual Orientation Not on file documented as of this encounter Miscellaneous Notes * Cerner Conversion Note - Historical ProviderMD - 10/12/2020 3:07 PM CDT Patient: DOYLE DEL ANGEL Age: 84 Years Sex: Male : 1935 Subjective 10/12/2020 Vital Signs T: 36.3 ??C TMIN: 36.3 ??C TMAX: 37.1 ??C HR: 69(Monitored) RR: 18 BP: 128/69 SpO2: 95% Oxygen Settings (Last) Oxygen Therapy Mode: Room air (10/12/20 10:00:00) Intake & Output Totals Last 24 Hours (7a-7a) Input Total: 650 mL Output Total: 300 mL Balance: 350 mL Physical Exam General: Sleeping but arousable. Thin build. Neurologic: Awake, alert, and oriented X3, no focal deficits appreciated, moves all extremities HENT: Normocephalic Neck: Supple Lungs: Scattered rhonchi bilaterally but otherwise clear. Heart: Normal rate, regular rhythm, no murmur, gallop or edema Abdomen: Soft, nontender, non-distended, normal bowel sounds, no masses Musculoskeletal: Normal range of motion, no tenderness or swelling Skin: Skin is warm, dry and pink, no rash Psychiatric: cooperative, normal mood/affect [1] Assessment/Plan Intractable nausea/vomiting -History of esophageal cancer status post chemotherapy. Zofran not helping at home. -Worsened by Bactrim per patient's report -Protonix and Carafate -Dr. Enciso added Megace and Reglan yesterday which seemed to help the patient's appetite. -EGD 10/12: Gastric erythema, biopsy for H. pylori pending, will keep patient on PPI Mild dehydration -Secondary to poor intake with nausea. -Initially given IV fluids but now stopped. Esophageal Cancer -Dr. Enciso consulted -Status post chemotherapy. Not had it in 3 weeks. Weakness/debility -PT/OT eval -Wishes to go home with home health. -Negative care consulted. Depression -increase Effexor dose from 75mg to 150mg Malnourished -secondary to N&V, consult yarn spinner -Multifactorial given the patient has cancer and was having nausea and vomiting. dispo: Patient presents with intractable nausea and vomiting. Patient has improved with Reglan and Megace. EGD shows no signs of ulcer. We will monitor the patient's intake today. Seems to be leaning towards charge home with family. VTE Prophylaxis - Medical Clopidogrel 75 mg, Oral, Tab, Daily, Start 10/10/20 9:00:00 EDT (PARKER RAVI MD-INT) Sequential Compression Device Start: 10/09/20 16:55:00 EDT, Bilateral, Continuous Order (SASHA PEREZ PA-C) Medications aspirin, 81 mg= 1 Tab, Oral, Daily [...] 650 mg= 2 Tab, Oral, Q4H, PRN Lab Results Test Name Test Result Date/Time Sodium Level 139 mmol/L 10/12/2020 11:52 EDT Potassium Level 3.4 mmol/L (Low) 10/12/2020 11:52 EDT Chloride Level 107 mmol/L 10/12/2020 11:52 EDT Carbon Dioxide Level 27 mmol/L 10/12/2020 11:52 EDT Anion Gap 8 (Low) 10/12/2020 11:52 EDT Glucose Level 94 mg/dL 10/12/2020 11:52 EDT Blood Urea Nitrogen 10 mg/dL 10/12/2020 11:52 EDT Creatinine Level 0.90 mg/dL 10/12/2020 11:52 EDT eGFR >60 mL/min/1.73m2 10/12/2020 11:52 EDT eGFR NonAfrican >60 mL/min/1.73m2 10/12/2020 11:52 EDT Bun/Creatinine 11.1 10/12/2020 11:52 EDT Calcium Level 9.1 mg/dL 10/12/2020 11:52 EDT Protein Total 6.4 Gram/dL 10/12/2020 11:52 EDT Albumin Level 2.7 Gram/dL (Low) 10/12/2020 11:52 EDT Globulin 3.7 Gram/dL 10/12/2020 11:52 EDT A/G Ratio 0.7 (Low) 10/12/2020 11:52 EDT Bilirubin Total 0.6 mg/dL 10/12/2020 11:52 EDT Alk Phos 153 Units/Liter (High) 10/12/2020 11:52 EDT AST 23 Units/Liter 10/12/2020 11:52 EDT ALT 21 Units/Liter 10/12/2020 11:52 EDT [1] Hospitalist Progress Note - SOAP; [facility] PA 10/11/2020 09:36 EDT Electronically signed by [facility] Conversion Ball Mill Operator Cerner at 06/29/2022 2:14 PM CDT documented in this encounter Plan of Treatment Upcoming Encounters Date Type Department Care Team (Late st Contact Info) Description 11/24/2024 2:00 PM EDT Office Visit [facility] [address] [address] [place] [address] Jalen Enciso MD [address] [facility] [address] [place] [address] documented as of this encounter Visit Diagnoses Not on filedocumented in this encounter Care Teams Pulpwood Contractor Relationship Specialty Start Date End Date Kaylene Brooke MD [address] [place] [address] PCP - General General Internal Medicine 01/27/22 Farooq Marcus MD [address] [facility] [place] [address] PCP - General Family Medicine 02/27/22 documented as of this encounter
--- OUTSIDE RECORDS SUMMARY | 2024-11-21 21:25 | XMS_ITS | Encounter Summary ---
Author Organization [employer] ([place], [place], [place], [place]) Address [address] [place] [address] Care Team Providers Care Vehicle Service Attendant Name Role Phone Kaylene Brooke MD Primary Care Provider [phone] Farooq Marcus MD Primary Care Provider [phone] Encounter Details Date Type Department Care Team (Late st Contact Info) Description 10/12/2020 Transcribed Document [facility] [place] Family Medicine [facility] [place] [address] ProviderRayray MD [address] [place], [place] [address] Social History Tobacco Use Types Packs/Day Years Used Date Smoking Tobacco: Never Assessed Sex and Gender Information Value Date Recorded Sex Assigned at Not on file Legal Sex Male 5:14 PM CDT Gender Identity Not on file Sexual Orientation Not on file documented as of this encounter Miscellaneous Notes * Cerner Conversion Note - Historical ProviderMD - 10/12/2020 5:00 AM CDT Chart Check - Review Order Profile Entered On: 10/12/2020 5:51 EDT Performed On: 10/12/2020 5:00 EDT by Elidia Marie Lpn Chart Check Powerplans Initiated/Discontinued as Appropriate : Yes All Active Orders Reviewed : Yes Elidia Marie Lpn - 10/12/2020 5:51 EDT documented in this encounter Plan of Treatment Upcoming Encounters Date Type Department Care Team (Late st Contact Info) Description 11/24/2024 2:00 PM EDT Office Visit [facility] [facility] - [address] [place] [address] Jalen Enciso MD [address] [place] [address] documented as of this encounter Visit Diagnoses Not on filedocumented in this encounter Care Teams Vehicle Service Attendant Relationship Specialty Start Date End Date Kaylene Brooke MD [address] [place] [address] PCP - General General Internal Medicine 01/27/22 Farooq Marcus MD [address] [facility] [place] [address] PCP - General Family Medicine 02/27/22 documented as of this encounter
--- OUTSIDE RECORDS SUMMARY | 2024-11-21 21:25 | XMS_ITS | Encounter Summary ---
Author Organization [employer] ([place], [place], [place], [place]) Address [address] [place] [address] Care Team Providers Care Juvenile Correctional Officer Name Role Phone Kaylene Brooke MD Primary Care Provider [phone] Farooq Marcus MD Primary Care Provider [phone] Encounter Details Date Type Department Care Team (Late st Contact Info) Description 09/23/2020 Transcribed Document [facility] [place] [facility] [place] [address] ProviderRayray MD [address] [place], [place] [address] Social History Tobacco Use Types Packs/Day Years Used Date Smoking Tobacco: Never Assessed Sex and Gender Information Value Date Recorded Sex Assigned at Not on file Legal Sex Male 5:14 PM CDT Gender Identity Not on file Sexual Orientation Not on file documented as of this encounter Miscellaneous Notes * Cerner Conversion Note - Historical ProviderMD - 09/23/2020 3:01 PM CDT Patient: RANCHO DEL ANGEL Age: 84 years Sex: Male : 1935 Associated Diagnoses: None Author: CHANTELLE LUNDBERG DO Subjective pt seen by me around noon, , son and daughter in law at bedside. pt tells me that he feels better today, he denies cp. abd pain and nausea greatly improved today. he is still sob and coughing some. no bm since admission. Health Status Current medications: Medications (17) Active Scheduled: (7) aspirin 81 [...] 0.9% 250 mL 1,250 mg, IV Piggyback, [id number] Continuous: (1) NaCl 0.9% 1,000 mL 1,000 [...] 10 mg 2 Tab, Oral, Q4H Objective Intake and Output Intake & Output Totals Last 24 Hours (7a-7a) Intake (31 Events) Continuous Infusions (1500 mL) Medications (1415.31 mL) Output (1 Events) Urine Voided (Volume) (300 mL) Input Total: 2915.31 mL Output Total: 300 mL Balance: 2615.31 mL VS/Measurements Vitals Signs (last 24 hrs) Last Charted Minimum Maximum Temp 98.2 (SEP 23 08:00) 97.7 (SEP 23 05:13) 98.5 (SEP 22 23:20) Mon HR 80 (SEP 23 08:00) 69 (SEP 23 03:17) 84 (SEP 22 15:15) Resp Rate 18 (SEP 23 05:13) L 10 (SEP 22 23:20) H 27 (SEP 22 15:15) SBP 98 (SEP 23 08:00) L 87 (SEP 22 21:00) 113 (SEP 22 16:15) DBP L 52 (SEP 23 08:00) L 49 (SEP 22 23:20) L 58 (SEP 22 19:00) MAP 67 (SEP 23 05:13) 61 (SEP 23 03:17) 80 (SEP 22 16:15) SpO2 L 92 (SEP 23 08:00) L 91 (SEP 23 06:00) 96 (SEP 22 17:00) General: Alert and oriented, No acute distress. Eye: Pupils are equal, round and reactive to light, Normal conjunctiva. HENT: Normocephalic, Normal hearing. Respiratory: Lungs are clear to auscultation, Respirations are non-labored, Breath sounds are equal. Cardiovascular: Normal rate, Regular rhythm, No murmur, No edema. Gastrointestinal: Soft, Non-distended, Normal bowel sounds, slightly tender to palpation RUQ but no rebound tenderness . Integumentary: Warm, Dry. Neurologic: Alert, Oriented, No focal deficits. Psychiatric: Cooperative, Appropriate mood & affect. Results Review General results Interpretation: SEP 23 05:08 139 108 20 / 99 3.7 28 1.10 \ SEP 23 05:08 \ L 8.2 / 8.3 L 116 / L 26.3 \ Labs (Last four charted values) WBC 8.3 [...] (SEP 22) Radiology Results (Last 48 hours) [id number] -- 09/22/2020 16:03 CR Chest 1 Vw [...] pna - continue vanco and zosyn - will stop vanco tmrw if cultures still negative - bandemia and lactic acidosis level noted pancreatitis, improved - elevated bilirubin noted, pt s/p lap lala per CT scan (pt unaware he had had prior cholecystectomy) - gi consult pending - npo - iv fluids - monitor closely esophageal cancer - pt of dr enciso - chemo last week, on 09/17 nstemi - cardiology consult - trend troponins - check echocardiogram - PENDING - continue aspirin coronary artery disease - per pt s/p LHC and PCI [address] topete done at [facility] - pt stopped taking brilinta on his own accord shortly after the PCI as it was making him sob - on aspirin 81 mg daily. syncope 2 weeks ago - two weeks prior to admission, was at [facility] for this stay. depression - start on antidepressant last week with dr enciso - pt and unsure what medication this was. irregular heart rhythm, possibly afib - with pacemaker - follows with dr topete and dr COSTA in [place] d/w , son and DIL. d/w rn time spent: 28 min discharge goals: lft's and leukocytosis improved. await gi and cards plan. if no ercp likely start slowly advancing diet tomorrow. anticipated discharge disposition: home with HH. Chantelle Lundberg [facility] Hospitalist pager- [phone] Electronically signed by [facility] Conversion Lead Producer Cerner at 06/29/2022 2:15 PM CDT documented in this encounter Plan of Treatment Upcoming Encounters Date Type Department Care Team (Late st Contact Info) Description 11/24/2024 2:00 PM EDT Office Visit [place] [facility] - [facility] [address] [place] [address] Jalen Enciso MD [address] [place] [address] documented as of this encounter Visit Diagnoses Not on filedocumented in this encounter Care Teams Juvenile Correctional Officer Relationship Specialty Start Date End Date Kaylene Brooke MD [address] [place] [address] PCP - General General Internal Medicine 01/27/22 Farooq Marcus MD [address] [place] [address] PCP - General Family Medicine 02/27/22 documented as of this encounter
--- OUTSIDE RECORDS SUMMARY | 2024-11-21 21:25 | XMS_ITS | Encounter Summary ---
Author Organization [employer] ([place], [place], [place], [place]) Address [address] [place] [address] Care Team Providers Care Carbonizer Name Role Phone Kaylene Brooke MD Primary Care Provider [phone] Farooq Marcus MD Primary Care Provider [phone] Encounter Details Date Type Department Care Team (Late st Contact Info) Description 10/11/2020 Transcribed Document [facility] [place] Family Medicine [address] [place] [address] ProviderRayray MD [address] [place] [address] Social History Tobacco Use Types Packs/Day Years Used Date Smoking Tobacco: Never Assessed Sex and Gender Information Value Date Recorded Sex Assigned at Not on file Legal Sex Male 5:14 PM CDT Gender Identity Not on file Sexual Orientation Not on file documented as of this encounter Miscellaneous Notes * Cerner Conversion Note - Rayray ProviderMD - 10/11/2020 2:42 PM CDT Initial Discharge Planning Entered On: 10/11/2020 15:03 EDT Performed On: 10/11/2020 14:42 EDT by Wily Dewitt, NON FERROUS MATERIAL HANDLER NON-EXEMPT Initial Assessment I Previously Documented Living Environment : No qualifying data available. Living Situation : Home with family care Patient Lives With : Spouse Is the Patient a Caregiver at Home? : No Emergency Contact #1 : -Dirk Del Angel Emergency Contact #1 Phone Number : [phone] Emergency Contact #1 Relationship : -Spouse Emergency Contact #2 : - Emergency Contact #2 Phone Number : - Emergency Contact #2 Relationship : - Enter Doctors Name : Adiel Davis MD Does Patient have PCP Listed? : Yes Patient's Home Caregiver Name/Relationship : Dirk Del Angel/Spouse Medical Durable Power of Beer Runner Name : No Legal Guardian : No Is Guardianship Needed : No Wily Dewitt NON FERROUS MATERIAL HANDLER NON-EXEMPT - 10/11/2020 14:42 EDT Initial Assessment II Sensory and Motor Deficits : Weakness Current Home Treatments and Equipment : None, Walker Wily Dewitt NON FERROUS MATERIAL HANDLER NON-EXEMPT - 10/11/2020 14:42 EDT Discharge Needs I Anticipated Discharge To, CM : Home with family care, Home with home health Current Home Treatment/Equipment : Current Home Treatment/Equipment No qualifying data available. Post Acute/Home Treatments : Walker Documentation Status Complete : Yes Wily Dewitt SOCIAL WORKER NON-EXEMPT - 10/11/2020 14:42 EDT Discharge Needs II Professional Skilled Services : Professional Skilled Services No qualifying data available. Needs Assistance with Transportation : No Discharge Options Discussed with Patient : Acute rehabilitation, Discharge transportation, DME, Home Health, [facility], Short term rehabilitation Patient Discharge Goal : Home Wily Dewitt NON FERROUS MATERIAL HANDLER NON-EXEMPT - 10/11/2020 14:42 EDT Narrative Note Narrative Note : Pt was seen at bedside. His was also present. Pt is day 1 with no DRG yet. He is a high readmission risk with BOOST 4. Pt is possible candidate for EGD. He was admitted for nausea with vomiting. Pt is undergoing chemo treatment with Dr. Enciso. His PCP is Adiel Davis MD. He sees Dr. Enciso for oncology & also sees a orthopedic nurse practitioner through [facility]. Pt lives with his in a private residence & is fairly independent with some family support. He was referred to [facility] last admission, but he is not homebound so they could not provide services. Pt & his state they are not interested in services as he needs to go for MD appointments & other treatments. He also states that he will discuss rehab placement with MDs before deciding on referrals. Pt prefers [facility] or [facility] if rehab is desired. He DOES NOT want placement referrals made at this time. Pt has had Covid vaccinations. His D/C plan at this time is to go home with family support. Pt's will provide transportation. CM will revisit placement referral desire again to see if pt has changed his mind. He will not require pre cert as primary insurance is Medicare. CM will continue to follow. Wily Dewitt, NON FERROUS MATERIAL HANDLER NON-EXEMPT - 10/11/2020 14:42 EDT documented in this encounter Plan of Treatment Upcoming Encounters Date Type Department Care Team (Late st Contact Info) Description 11/24/2024 2:00 PM EDT Office Visit [place] [facility] - [facility] [address] [place] [address] Jalen Enciso MD [address] [facility] [address] [place] [address] documented as of this encounter Visit Diagnoses Not on filedocumented in this encounter Care Teams Carbonizer Relationship Specialty Start Date End Date Kaylene Brooke MD [address] [place] [address] PCP - General General Internal Medicine 01/27/22 Farooq Marcus MD [facility] [place] [address] PCP - General Family Medicine 02/27/22 documented as of this encounter
--- OUTSIDE RECORDS SUMMARY | 2024-11-21 21:25 | XMS_ITS | Encounter Summary ---
Author Organization [employer] ([place], [place], [place], [place]) Address [address] [place] [address] Care Team Providers Care Veterinarian Epidemiologist Name Role Phone Farooq Marcus MD Primary Care Provider [phone] Reason for Referral * MRI (Routine) - Closed Specialty Diagnoses / Procedures Referred By Contac t Referred To Contact Radiology Diagnoses Pain in thoracic spine Procedures MR thoracic spine without IV contrast Christian Ramsey Jr., MD [address] [place] [address] Phone: tel: fax: Referral ID Status Reason Start Date Expiration Date Visits Re quested Visits Authorized [id number] Closed 03/30/2022 09/26/2022 1 1 * MRI (Routine) - Closed Specialty Diagnoses / Procedures Referred By Contac t Referred To Contact Radiology Diagnoses Low back pain, unspecified back pain laterality, unspecified chronicity, unspecified whether sciatica present Procedures MR spine lumbar without IV contrast Christian Ramsey Jr., MD [address] [place] [address] Phone: tel: fax: Referral ID Status Reason Start Date Expiration Date Visits Re quested Visits Authorized [id number] Closed 03/30/2022 09/26/2022 1 1 Encounter Details Date Type Department Care Team (Late st Contact Info) Description 03/30/2022 Outside Orders [facility] Central Scheduling [address] [place] [address] Christian Ramsey Jr., MD [address] [place], [place] [id number] Low back pain, unspecified back pain laterality, unspecified chronicity, unspecified whether sciatica present (Primary Dx); Pain in thoracic spine Social History Tobacco Use Types Packs/Day Years Used Date Smoking Tobacco: Never Smokeless Tobacco: Never Alcohol Use Standard Drinks/Week Comments Never 0 (1 standard drink = 0.6 oz pur e alcohol) Sex and Gender Information Value Date Recorded Sex Assigned at Not on file Legal Sex Male 5:14 PM CDT Gender Identity Not on file Sexual Orientation Not on file 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 Not on file Not on file Not on file documented as of this encounter Plan of Treatment Upcoming Encounters Date Type Department Care Team (Late Contact Info) Description 11/24/2024 2:00 PM EDT Office Visit [place] [facility] - [facility] [address] [facility] [address] [place] [address] Jalen Enciso MD [address] [facility] [address] [place] [address] documented as of this encounter Results * MR spine lumbar without IV contrast (04/20/2022 3:17 PM EST) Anatomical Region Laterality Modality L-spine Magnetic Resonan ce (MRI) 04/20/2022 4:07 PM EST Impressions 04/20/2022 4:43 PM EST Spondylosis and stenosis as above. Films reviewed, interpreted, and dictated by Dr. Bojorquez. Transcribed by Chapis Schuster PA-C. Narrative 04/20/2022 4:43 PM EST MRI LUMBAR SPINE. HISTORY: Acute low back pain. PROCEDURE: Multiplanar MR imaging of the lumbar spine was performed in multiple MR sequences. FINDINGS: There are multiple hemangiomas. Vertebral body heights are normal. There is slight retrolisthesis of L2 on L3. The conus terminates at T12-L1. Multiple cystic lesions are identified in both kidneys. The largest is on the left and measures 3 cm. T12-L1: There is a disc osteophyte complex. There is no central canal or foraminal stenosis. There is a perineural cyst in the right foramen. This measures 1 cm. L1-L2: There is a mild disc osteophyte complex and mild degenerative facets. No canal or foraminal stenosis is identified. L2-L3: There is a disc osteophyte complex. There are degenerative facets and thickening of the flavum. Mild narrowing of the central canal is identified. Neural foramina are patent. L3-L4: There is a disc osteophyte complex, asymmetric to the left. Degenerative facets and thickening of the flavum are identified. There is mild narrowing of the central canal. Mild narrowing of the right neural foramen is identified. L4-L5: There is a disc osteophyte complex. There are degenerative facets and thickening of the flavum. Mild central canal stenosis is identified. There is mild left neural foraminal narrowing. L5-S1: There is a disc osteophyte complex with severe degenerative facets. Moderate narrowing of the central canal is identified. There is moderate right and left neural foraminal narrowing. Procedure Note Christian Bojorquez DO - 04/20/2022 MRI LUMBAR SPINE. HISTORY: Acute low back pain. PROCEDURE: Multiplanar MR imaging of the lumbar spine was performed in multiple MR sequences. FINDINGS: There are multiple hemangiomas. Vertebral body heights are normal. There is slight retrolisthesis of L2 on L3. The conus terminates at T12-L1. Multiple cystic lesions are identified in both kidneys. The largest is on the left and measures 3 cm. T12-L1: There is a disc osteophyte complex. There is no central canal or foraminal stenosis. There is a perineural cyst in the right foramen. This measures 1 cm. L1-L2: There is a mild disc osteophyte complex and mild degenerative facets. No canal or foraminal stenosis is identified. L2-L3: There is a disc osteophyte complex. There are degenerative facets and thickening of the flavum. Mild narrowing of the central canal is identified. Neural foramina are patent. L3-L4: There is a disc osteophyte complex, asymmetric to the left. Degenerative facets and thickening of the flavum are identified. There is mild narrowing of the central canal. Mild narrowing of the right neural foramen is identified. L4-L5: There is a disc osteophyte complex. There are degenerative facets and thickening of the flavum. Mild central canal stenosis is identified. There is mild left neural foraminal narrowing. L5-S1: There is a disc osteophyte complex with severe degenerative facets. Moderate narrowing of the central canal is identified. There is moderate right and left neural foraminal narrowing. IMPRESSION: Spondylosis and stenosis as above. Films reviewed, interpreted, and dictated by Dr. Bojorquez. Transcribed by Chapis Schuster PA-C. us Christian Ramsey Jr., MD IMG MRI ORDERABLES Final R esult * MR thoracic spine without IV contrast (04/20/2022 2:52 PM EST) Anatomical Region Laterality Modality T-spine Magnetic Resonan ce (MRI) 04/20/2022 3:08 PM EST Impressions 04/20/2022 3:43 PM EST Degenerative change without significant central canal stenosis or acute fracture. 15 mm cystic lesion on the left at approximately T4-5. This could represent a dilated nerve root sleeve. A neuroma or other lesion could have similar appearance. Consider repeat imaging with gadolinium. Images reviewed, interpreted, and dictated by Cori Bui MD Narrative 04/20/2022 3:43 PM EST MRI OF THE THORACIC SPINE HISTORY: Acute thoracic back pain. PROCEDURE: MR images of the thoracic spine were performed in multiple sequences. FINDINGS: Cord signal is normal on all sequences. There is mild diffuse degenerative disc disease. There is no acute fracture. There is no subluxation. Axial imaging demonstrates no significant central canal stenosis. There is a dilated nerve root sleeve in the upper thoracic spine on the left. Alternatively, this could represent a cystic lesion. It measures 15 mm. It is at the approximate T4-5 level. Procedure Note Carlos Bui MD - 04/20/2022 MRI OF THE THORACIC SPINE HISTORY: Acute thoracic back pain. PROCEDURE: MR images of the thoracic spine were performed in multiple sequences. FINDINGS: Cord signal is normal on all sequences. There is mild diffuse degenerative disc disease. There is no acute fracture. There is no subluxation. Axial imaging demonstrates no significant central canal stenosis. There is a dilated nerve root sleeve in the upper thoracic spine on the left. Alternatively, this could represent a cystic lesion. It measures 15 mm. It is at the approximate T4-5 level. IMPRESSION: Degenerative change without significant central canal stenosis or acute fracture. 15 mm cystic lesion on the left at approximately T4-5. This could represent a dilated nerve root sleeve. A neuroma or other lesion could have similar appearance. Consider repeat imaging with gadolinium. Images reviewed, interpreted, and dictated by Cori Bui MD us Christian Ramsey Jr., MD IMG MRI ORDERABLES Final R esult documented in this encounter Visit Diagnoses Diagnosis Low back pain, unspecified back pain laterality, unspecified chronicity, unspecified whether sciatica present- Primary Pain in thoracic spine Pain in thoracic spine Low back pain, unspecified back pain laterality, unspecified chronicity, unspecified whether sciatica present documented in this encounter Care Teams Veterinarian Epidemiologist Relationship Specialty Start Date End Date Farooq Marcus MD [address] [place], [place] [address] PCP - General Family Medicine 02/27/22 documented as of this encounter
--- OUTSIDE RECORDS SUMMARY | 2024-11-21 21:25 | XMS_ITS | Encounter Summary ---
Author Organization [employer] ([place], [place], [place], [place]) Address [address] [place] [address] Care Team Providers Care Clearance Coordinator Name Role Phone Kaylene Brooke MD Primary Care Provider [phone] Farooq Marcus MD Primary Care Provider [phone] Encounter Details Date Type Department Care Team (Late st Contact Info) Description 09/23/2020 Transcribed Document [facility] [place] Family Medicine [facility] [address] ProviderRayray MD [address] [place] [address] Social History Tobacco Use Types Packs/Day Years Used Date Smoking Tobacco: Never Assessed Sex and Gender Information Value Date Recorded Sex Assigned at Not on file Legal Sex Male 5:14 PM CDT Gender Identity Not on file Sexual Orientation Not on file documented as of this encounter Miscellaneous Notes * Cerner Conversion Note - Historical ProviderMD - 09/23/2020 11:05 AM CDT Treatment Intervention, OT Entered On: 09/24/2020 14:12 EDT Performed On: 09/24/2020 13:48 EDT by PRISCILLA GARY, OTR/L General Information, OT Visit Type, OT : Treatment Note Patient Orders : Order Date Order Ordering 09/22/2020 17:15 OT Evaluation and Treatment Ordered By: CRISTINA LUNDBERG DO 09/23/2020 11:05 OT Additional Treatment Ordered By: Active Diagnoses : 09/22/2020 12:00 Abdominal pain 09/22/2020 12:00 Acute pancreatitis without necrosis or infection, unspecified 09/22/2020 12:00 Non-ST elevation (NSTEMI) myocardial infarction 09/22/2020 12:00 Sepsis, unspecified organism Therapy Diagnosis, OT : decreased I with ADLs due to weakness Admission Date : 09/22/2020 16:03 Co-treated by, OT : assistant golf coach ([employer]) Personal Devices : Personal Devices No Devices Recorded Assistive Devices : Assistive Devices No Devices Recorded PRISCILLA GARY OTR/Tre - 09/24/2020 14:05 EDT General Status Patient Received Status : Supine in bed Treatment Start Time : 09/24/2020 13:33 EDT Patient Left Status : Supine in bed, RN/PCT informed, All needs met and within reach RN/PCT Informed Comment : MERA wolf Treatment End Time : 09/24/2020 13:48 EDT Treatment Time : 15 Minute(s) PRISCILLA GARY OTR/Tre - 09/24/2020 14:05 EDT Self Care/Home Management, OT Bed/Chair/WC Transfer Assist Level : Supervision or set-up PRISCILLA GARY OTR/Tre - 09/24/2020 14:05 EDT Functional Mobility Mobility Grid Supine to Sit : Supervision/set-up Sit to Stand : Supervision/set-up Stand to Sit : Supervision/set-up Sit to Supine : Rehab Minimal assistance PRISCILLA GARY OTR/Tre - 09/24/2020 14:05 EDT Plan of Care, OT OT Tx Plan/Goals Established w Patient : Yes PRISCILLA GARY OTR/Tre - 09/24/2020 14:05 EDT Cone Operator Goals, OT Bathing LTG Grid Goal #1 Activity : Bathing Assist : Independent, modified Date to Meet : 10/07/2020 EDT Goal Status : Initial goal Comment : with AE as needed PRISCILLA GARY OTR/Tre - 09/24/2020 14:05 EDT Dressing, Lower Body LTG Grid Goal #1 Activity : Dressing, Lower Body Assist : Independent, complete Date to Meet : 10/07/2020 EDT Goal Status : Initial goal PRISCILLA GARY OTR/Tre - 09/24/2020 14:05 EDT Toilet Transfer LTG Grid Goal #1 Activity : Toilet Transfer, Ambulatory Assist : Independent, modified Date to Meet : 10/07/2020 EDT Goal Status : Initial goal PRISCILLA GARY OTR/L - 09/24/2020 14:05 EDT Treatment Note Subjective Comment : Agreeable. present. Pt had a bad night's sleep. Patient's Response to Treatment : Participating. Additional Objective Information : Pt came to EOB with supervision. Stood and ambulated with 02 continuous and RW 525 feet. No LOB. No SOA. Pt at times needing cues for walker steering. Juan back to bed. Pt declines ADL tasks at this time. Assessment : Progressing. Plan for Treatment : cont poc PRISCILLA GARY OTR/L - 09/24/2020 14:05 EDT Anticipated Discharge Needs, OT/PT Anticipated Discharge to : Home, with home health PRISCILLA GARY OTR/Tre - 09/24/2020 14:[address] [facility] OT Charges OT Ther Activities Ea 15 Min : 1 PRISCILLA GARY OTR/L - 09/24/2020 14:05 EDT Electronically signed by [facility] Conversion Clinical Program Director Cerner at 07/02/2022 4:56 PM CDT documented in this encounter Plan of Treatment Upcoming Encounters Date Type Department Care Team (Late st Contact Info) Description 11/24/2024 2:00 PM EDT Office Visit [place] [facility] - [place] [id number] [facility] [address] [place] [address] Jalen Enciso MD [address] [facility] [address] [place] [address] documented as of this encounter Visit Diagnoses Not on filedocumented in this encounter Care Teams Clearance Coordinator Relationship Specialty Start Date End Date Kaylene Brooke MD [address] [place] [address] PCP - General General Internal Medicine 01/27/22 Farooq Marcus MD [address] [place] [address] PCP - General Family Medicine 02/27/22 documented as of this encounter
--- OUTSIDE RECORDS SUMMARY | 2024-11-21 21:25 | XMS_ITS | Encounter Summary ---
Author Organization [employer] ([place], [place], [place], [place]) Address [address] [place] [address] Care Team Providers Care Blade Worker Name Role Phone Kaylene Brooke MD Primary Care Provider [phone] Farooq Marcus MD Primary Care Provider [phone] Encounter Details Date Type Department Care Team (Late st Contact Info) Description 10/11/2020 Transcribed Document [facility] [place] [facility] [place] [address] ProviderRayray MD [address] [place], [place] [id number] Social History Tobacco Use Types Packs/Day Years Used Date Smoking Tobacco: Never Assessed Sex and Gender Information Value Date Recorded Sex Assigned at Not on file Legal Sex Male 5:14 PM CDT Gender Identity Not on file Sexual Orientation Not on file documented as of this encounter Miscellaneous Notes * Cerner Conversion Note - Historical ProviderMD - 10/11/2020 5:00 AM CDT Chart Check - Review Order Profile Entered On: 10/11/2020 4:31 EDT Performed On: 10/11/2020 5:00 EDT by Elidia Marie Lpn Chart Check Powerplans Initiated/Discontinued as Appropriate : Yes All Active Orders Reviewed : Yes Elidia Marie Lpn - 10/11/2020 4:31 EDT documented in this encounter Plan of Treatment Upcoming Encounters Date Type Department Care Team (Late st Contact Info) Description 11/24/2024 2:00 PM EDT Office Visit [place] [facility] - [place] [address] [place] [address] Jalen Enciso MD [address] [place] [address] documented as of this encounter Visit Diagnoses Not on filedocumented in this encounter Care Teams Blade Worker Relationship Specialty Start Date End Date Kaylene Brooke MD [address] [place] [address] PCP - General General Internal Medicine 01/27/22 Farooq Marcus MD [address] [place] [address] PCP - General Family Medicine 02/27/22 documented as of this encounter
--- OUTSIDE RECORDS SUMMARY | 2024-11-21 21:25 | XMS_ITS | Encounter Summary ---
Author Organization [employer] ([place], [place], [place], [place]) Address [address] [place] [address] Care Team Providers Care Plastic Fixture Builder Name Role Phone Kaylene Brooke MD Primary Care Provider [phone] Faroqo Marcus MD Primary Care Provider [phone] Encounter Details Date Type Department Care Team (Late st Contact Info) Description 10/10/2020 Transcribed Document [facility] [place] Family Medicine [address] [place] [address] ProviderRayray MD [address] [place] [address] Social History Tobacco Use Types Packs/Day Years Used Date Smoking Tobacco: Never Assessed Sex and Gender Information Value Date Recorded Sex Assigned at Not on file Legal Sex Male 5:14 PM CDT Gender Identity Not on file Sexual Orientation Not on file documented as of this encounter Miscellaneous Notes * Cerner Conversion Note - Rayray ProviderMD - 10/10/2020 11:17 AM CDT Swallow Evaluation Entered On: 10/10/2020 12:59 EDT Performed On: 10/10/2020 12:58 EDT by HARSHIL GOFF, PRODUCTION OPERATOR General Information Previous Swallow Precautions : None in EMR Diet/Intake Prior to Current Admission : Regular/thin Diet/Intake During Current Admission : Full liquids Intubation Comment, PRODUCTION OPERATOR : N/A HARSHIL GOFF, PRODUCTION OPERATOR - 10/10/2020 12:59 EDT Visit Type, PRODUCTION OPERATOR : Initial evaluation Patient Orders : Consult to Speech Language Pathology for Swallow Eval -111 Start: 10/10/20 11:17:00 EDT, Routine, For Swallow Eval and Treat, Patient s/p esophageal cancer and radiation, expressed difficulty swallowing medications. decreased appetitie. - SASHA PEREZ PA-C Admission Date : Admission Date/Time: 10/09/20 15:48:00 Personal Devices : Personal Devices No Devices Recorded Assistive Devices : Assistive Devices No Devices Recorded Active Diagnoses : 10/09/2020 12:00 Encounter for follow-up examination after completed treatment for conditions other than malignant neoplasm 10/09/2020 12:00 Nausea 10/09/2020 12:00 Vomiting 10/09/2020 12:00 Vomiting, unspecified HARSHIL GOFF SLP - 10/10/2020 12:58 EDT Therapy Diagnosis, PRODUCTION OPERATOR : Oropharyngeal swallow seemingly within functional limits Recs 1. Regular diet/thin liquids, meds w/puree or pudding 2. GI consult for full barium swallow study HARSHIL GOFF SLP - 10/10/2020 12:59 EDT Vital Signs RTF : Vitals Temp BP Pulse RR SpO2 FIO2 Date Wt(kg) Wt(lb) 10/10 06:00 ---- 115/62 --- 17 91 --- 10/09 68.2 150 10/10 02:00 ---- 112/63 --- 18 92 --- 10/09 68.2 150 10/09 23:00 ---- 123/69 --- 18 92 --- 10/09 19:00 ---- ----- --- -- 92 --- 10/09 18:40 ---- 127/62 --- 16 92 --- 24 Hr Tmax: No Data Available 36 Hr Tmax: No Data Available Vital Signs are the last 5 in the past 48 hours. Weights display the last 5 within 7 days. Initial Wt: 10/09 68.2 kg 150 lb HARSHIL GOFF SLP - 10/10/2020 12:58 EDT General Status Patient Received Status, PRODUCTION OPERATOR : Long sitting in bed Patient Left Status, PRODUCTION OPERATOR : Long sitting in bed HARSHIL GOFF SLP - 10/10/2020 12:59 EDT Pain Assessment Pain Scaled Used : FACES Duration : 0 HARSHIL GOFF SLP - 10/10/2020 12:59 EDT Image 1 - Images currently included in the form version of this document have not been included in the text rendition version of the form. Oral Mechanism Dysarthria : No Resonance Types : Appropriate Oral Mechanism for Daily Living : Intact Facial Appearance: : Symmetrical Labial Appearance : Symmetrical Labial Function : All function intact Dental/Orthodontia : Edentulous Lingual Appearance : Symmetrical Lingual Function : All function intact Soft Palate (Velum) Appearance : Symmetrical Soft Palate Function : Function intact Hard Palate Appearance/ Structure : Structure intact HARSHIL GOFF SLP - 10/10/2020 12:59 EDT Bedside Swallow Swallow Outcome BS Swallow : Intact Head Control BS Swallow : Neutral head position Presentation Style BS Swallow : Self Swallow Position BS Swallow : Upright 90 degrees Trunk Control BS Swallow : Upright centered position Consistencies Trialed BS Swallow : Ice chips, Thin by straw, Pudding, Regular solids HARSHIL GOFF SLP - 10/10/2020 12:59 EDT Swallow Impressions Impressions, BS Swallow : No evidence of dysphagia present Swallowing Outcome Measures : Functional Oral Intake Scale (FOIS) Functional Oral Intake Scale (FOIS) : Level VII Bedside Swallow Overall Impressions : Patient is [...] regular diet. No further dysphagia services warranted, PRODUCTION OPERATOR will sign off. Please reconsult if new concerns arise. HARSHIL GOFF SLP - 10/10/2020 12:59 EDT Swallow Recommendations Recommended Diet Type, SwRec : Regular Recommended Liquid Diet, SwRec : Thin Feeding Presentation Style, SwRec : No restrictions Swallow Position, SwRec : Upright 90 degrees Comp Strategies/Sw Precautions, SwRec : Remain upright after meals 30 minutes Recommended Med Present, SwRec : Whole, With puree/pudding HARSHIL GOFF PRODUCTION OPERATOR - 10/10/2020 12:59 EDT Therapy Indication Assessment PRODUCTION OPERATOR Indicated : No PRODUCTION OPERATOR Not Indicated : At prior level of function, No skilled services indicated HARSHIL GOFF SLP - 10/10/2020 12:59 EDT Education Barriers To Learning : None evident Individuals Taught : Patient Readiness to Learn : Cooperative HARSHIL GOFF SLP - 10/10/2020 12:59 EDT PRODUCTION OPERATOR Education Assessment Grid 1 Diet Recommendation : Verbalizes understanding Dysphagia : Verbalizes understanding Evaluation Results : Verbalizes understanding HARSHIL GOFF SLP - 10/10/2020 12:59 EDT PRODUCTION OPERATOR Education Assessment Grid 2 Reflux Precautions : Verbalizes understanding HARSHIL GOFF SLP - 10/10/2020 12:[address] [facility] PRODUCTION OPERATOR Charges Evaluation Swallowing Function : 1 HARSHIL GOFF SLP - 10/10/2020 12:59 EDT Electronically signed by [facility] Conversion Evaluator Cerner at 06/29/2022 2:42 PM CDT documented in this encounter Plan of Treatment Upcoming Encounters Date Type Department Care Team (Late st Contact Info) Description 11/24/2024 2:00 PM EDT Office Visit [place] [facility] - [place] [address] [facility] [address] [place] [address] Jalen Enciso MD [address] [facility] [address] [place] [address] documented as of this encounter Visit Diagnoses Not on filedocumented in this encounter Care Teams Plastic Fixture Builder Relationship Specialty Start Date End Date Kaylene Brooke MD [address] [place] [address] PCP - General General Internal Medicine 01/27/22 Farooq Marcus MD [address], [place] [address] PCP - General Family Medicine 02/27/22 documented as of this encounter
--- OUTSIDE RECORDS SUMMARY | 2024-11-21 21:25 | XMS_ITS | Encounter Summary ---
Author Organization [facility] ([place], [place], [place], [place]) Address [address] [place] [address] Care Team Providers Care Interior Design Director Name Role Phone Kaylene Brooke MD Primary Care Provider [phone] Farooq Marcus MD Primary Care Provider [phone] Encounter Details Date Type Department Care Team (Late st Contact Info) Description 01/26/2021 Transcribed Document [facility] [place] [facility] [address] [place] [address] ProviderRayray MD [address] [place] [address] Social History Tobacco Use Types Packs/Day Years Used Date Smoking Tobacco: Never Assessed Sex and Gender Information Value Date Recorded Sex Assigned at Not on file Legal Sex Male 5:14 PM CDT Gender Identity Not on file Sexual Orientation Not on file documented as of this encounter Miscellaneous Notes * Cerner Conversion Note - Rayray San MD - 01/26/2021 12:23 PM ULTRASOUND TECH [facility] [address] [place] [id number] [place] :1935 Visit Time:01/26/2021 Your Visit Summary Your Care Team Admitting Physician - JALEN ENCISO MD-ONC Attending Physician - JALEN ENCISO MD-ONC Primary Care Physician - MAZIN SHERIDAN MD-JERRY Referring Physician - JALEN ENCISO MD-ONC Your Diagnosis Malignant neoplasm of cardia, Malignant neoplasm of cardia These Are Your Goals No qualifying data available. Discharge Vitals Temperature 36.2 ??C Heart Rate (Monitored) 72 Respiratory Rate 18 Blood Pressure 148/79 What to do next Instructions From Your Care Team Diet after Discharge: Resume usual diet as tolerated Activity after Discharge: Rest and relax today, No strenuous activity, Showering/Bathing: May shower in 3 days., No tub bathing, soaking or swimming for 3-5 days until site is healed. Medications: No changes to your current home medications., _ Dressing Instructions: Remove the dressing in 72 hours. , Follow-Up Appointments Follow Up with JALEN ENCISO MD-ONC When Comments [facility] as instructed [facility] [address] [address]- Medications What How Much When Instructions Next Dose megestrol (Megace 40 mg/ mL oral suspension) Oral Every Day venlafaxine (Effexor XR 150 mg oral capsule, extended release) Oral Every Day LORazepam (Ativan 1 mg oral tablet) 1 Tablet(s) Oral Three Times A Day as needed for as needed for anxiety ondansetron (Zofran 8 mg oral tablet) 1 Tablet(s) Oral Three Times A Day as needed for Nausea pantoprazole (pantoprazole 40 mg oral delayed release tablet) 1 Tablet(s) Oral Every Day Take your medications faithfully. Do NOT skip [...] This Visit No Immunizations Found Education Materials Wound Infection A wound infection happens when germs start to grow in a wound. Germs that cause wound infections are most often bacteria. Other types of infections can occur as well. An infection can cause the wound to break open. Wound infections need treatment. If a wound infection is not treated, problems can happen. What are the causes? Most often caused by germs (bacteria) that grow in a wound. ??? Other germs, such as yeast and funguses, can also cause wound infections. What increases the risk? Having a weak body defense system (immune system). ??? Having diabetes. ??? Taking certain medicines (steroids) for a long time. ??? Smoking. ??? Being an older person. ??? Being overweight. ??? Taking certain medicines for cancer treatment. What are the signs or symptoms? Having more redness, swelling, or pain at the wound site. ??? Having more blood or fluid at the wound site. ??? A bad smell coming from a wound or bandage (dressing). ??? Having a fever. ??? Feeling very tired. ??? Having warmth at or around the wound. ??? Having pus at the wound site. How is this treated? This condition is most often treated with an antibiotic medicine. ? The infection should improve 24???48 hours after you start antibiotics. ? After 24???48 hours, redness around the wound should stop spreading. The wound should also be less painful. Follow these instructions at home: Medicines ??? Take or apply [id number] and prescription medicines only as told by your doctor. ??? If you were prescribed an antibiotic medicine, take or apply it as told by your doctor. Do not stop using the antibiotic even if you start to feel better. Wound care ??? Clean the wound each day, or as told by your doctor. ? Wash the wound with mild soap and water. ? Rinse the wound with water to remove all soap. ? Pat the wound dry with a clean towel. Do not rub it. ??? Follow instructions from your doctor about how to take care of your wound. Make sure you: ? Wash your hands with soap and water before and after you change your bandage. If you cannot use soap and water, use hand continuous miner operator. ? Change your bandage as told by your doctor. ? Leave stitches (sutures), skin glue, or skin tape (adhesive) strips in place if your wound has been closed. They may need to stay in place for 2 weeks or longer. If tape strips get loose and curl up, you may trim the loose edges. Do not remove tape strips completely unless your doctor says it is okay. Some wounds are left open to heal on their own. ??? Check your wound every day for signs of infection. Watch for: ? More redness, swelling, or pain. ? More fluid or blood. ? Warmth. ? Pus or a bad smell. General instructions ??? Keep the bandage dry until your doctor says it can be removed. ??? Do not take baths, swim, or use a hot tub until your doctor approves. Ask your doctor if you may take showers. You may only be allowed to take sponge baths. ??? Raise (elevate) the injured area above the level of your heart while you are sitting or lying down. ??? Do not scratch or pick at the wound. ??? Keep all follow-up visits as told by your doctor. This is important. Contact a doctor if: ??? Medicine does not help your pain. ??? You have more redness, swelling, or pain around your wound. ??? You have more fluid or blood coming from your wound. ??? Your wound feels warm to the touch. ??? You have pus coming from your wound. ??? You notice a bad smell coming from your wound or your bandage. ??? Your wound that was closed breaks open. Get help right away if: ??? You have a red streak going away from your wound. ??? You have a fever. Summary ??? A wound infection happens when germs start to grow in a wound. ??? This condition is usually treated with an antibiotic medicine. ??? Follow instructions from your doctor about how to take care of your wound. ??? Contact a doctor if your wound infection does not start to get better in 24???48 hours, or your symptoms get worse. ??? Keep all follow-up visits as told by your doctor. This is important. This information is not intended to replace advice given to you by your health care provider. Make sure you discuss any questions you have with your health care provider. Document Revised: 10/08/2018 Document Reviewed: 10/08/2018 [employer] Patient Education ?? 2020 [employer] Moderate Conscious Sedation, Adult, Care After This sheet gives you information about how to care for yourself after your procedure. Your health care provider may also give you more specific instructions. If you have problems or questions, contact your health care provider. What can I expect after the procedure? After the procedure, it is common to have: ??? Sleepiness for several hours. ??? Impaired judgment for several hours. ??? Difficulty with balance. ??? Vomiting if you eat too soon. Follow these instructions at home: For at least 24 hours after the procedure: ??? Rest. ??? Do not: ? Participate in activities where you could fall or become injured. ? Drive. ? Use machinery. ? Drink alcohol. ? Take sleeping pills or medicines that cause drowsiness. ? Make important decisions or sign legal documents. ? Take care of children on your own. Eating and drinking ??? Follow the diet recommended by your health care provider. ??? Drink enough fluid to keep your urine pale yellow. ??? If you vomit: ? Drink water, juice, or soup when you can drink without vomiting. ? Make sure you have little or no nausea before eating solid foods. General instructions ??? Have a responsible adult stay with you until you are awake and alert. ??? Take [id number] and prescription medicines only as told by your health care provider. ??? Do not smoke. ??? Keep all follow-up visits as told by your health care provider. This is important. Contact a health care provider if: ??? You are still sleepy or having trouble with balance after 24 hours. ??? You feel light-headed. ??? You keep feeling nauseous or you keep vomiting. ??? You develop a rash. ??? You have a fever. ??? You have redness or swelling around the IV site. Get help right away if: ??? You have trouble breathing. ??? You have new-onset confusion at home. Summary ??? After the procedure, it is common to feel sleepy, have impaired judgment, or feel nauseous if you eat too soon. ??? Rest after you get home. Know the things you should not do for at least 24 hours after the procedure. ??? Follow the diet recommended by your health care provider and drink enough fluid to keep your urine pale yellow. ??? Get help right away if you have trouble breathing or new-onset confusion at home. This information is not intended to replace advice given to you by your health care provider. Make sure you discuss any questions you have with your health care provider. Document Revised: 01/22/2020 Document Reviewed: 01/22/2020 [employer] Patient Education ?? 2020 [employer]. Emergency Awareness and Preventative Care STROKE is [...] Assistance with quitting is available by contacting 1-695-CCNN-NOW. This is a free resource providing counseling, [...] This Visit (last charted value for your 01/26/2021 visit) No Laboratory or Other Results This Visit Patient Name:ALEX RANCHO E I have received and understand this information and was given the opportunity to ask questions. Patient/Citrix Systems Administrator Name: Patient/Citrix Systems Administrator Signature: Relationship to Patient: Clinician/Hospital [employer] Systems Administrator Signature: Date: Electronically signed by Malina Jacob Conversion Supervisory Air Intercept Controller Cerner at 06/29/2022 2:24 PM CDT documented in this encounter Plan of Treatment Upcoming Encounters Date Type Department Care Team (Late st Contact Info) Description 11/24/2024 2:00 PM EDT Office Visit [facility] [address] [place] [address] Jalen Enciso MD [address] [place] [address] documented as of this encounter Visit Diagnoses Not on filedocumented in this encounter Care Teams Interior Design Director Relationship Specialty Start Date End Date MendyKaylene MD [address] [place] [address] PCP - General General Internal Medicine 01/27/22 Faoroq Marcus MD [address] [place] [address] PCP - General Family Medicine 02/27/22 documented as of this encounter
--- OUTSIDE RECORDS SUMMARY | 2024-11-21 21:25 | XMS_ITS | Encounter Summary ---
Author Organization [employer] ([place], [place], [place], [place]) Address [address] [place] [address] Care Team Providers Care Dry Dip Worker Name Role Phone Kaylene Brooke MD Primary Care Provider [phone] Farooq Marcus MD Primary Care Provider [phone] Encounter Details Date Type Department Care Team (Late st Contact Info) Description 09/23/2020 Transcribed Document [facility] [place] [facility] [address] [place] [address] ProviderRayray MD [address] [place] [address] Social History Tobacco Use Types Packs/Day Years Used Date Smoking Tobacco: Never Assessed Sex and Gender Information Value Date Recorded Sex Assigned at Not on file Legal Sex Male 5:14 PM CDT Gender Identity Not on file Sexual Orientation Not on file documented as of this encounter Miscellaneous Notes * Cerner Conversion Note - Rayray San MD - 09/23/2020 9:12 AM CDT Patient: RANCHO DEL ANGEL Age: 84 Years Sex: Male : 1935 Chief Complaint c/o generalized abdominal pain, n/v since last night. Temp 102 yesterday per . 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 Enciso. Reason for Consultation Pancreatitis/elevated bilirubin History of Present Illness Mr Del Angel is a 84 y/o male with a history significant for Esophageal CA, HLD, pacemaker and ME. He reports he received chemo last week and has felt poorly since. He began having upper abdominal pain with nausea and vomiting, unable to keep anything down. Work-up in ED consisted of a CT abd/pelvis and labs. Significant labs include WBC 12.8, T bili 2.8, ALP 343, AST 269, Lipase 5762, and Trop 0.795. CT report below. He denies hx of pancreatitis, PUD, or intestinal disease. Vitals stable at this time. Patient denies having a cholecystectomy, however evidence is shown on CT and RUQ US. Reason For Exam abd pain and vomiting, chemo for esophageal ca;Other (Please Specify) REPORT CT SCAN OF THE ABDOMEN AND PELVIS WITH CONTRAST 09/22/2020 10:12 AM HISTORY: Abdominal pain, vomiting, history of esophageal cancer. COMPARISON: PET/CT dated August 27, 2020. PROCEDURE: The patient was injected with IV contrast. Axial images were obtained from the lung bases to the pubic symphysis by computed tomography. This study was performed with techniques to keep radiation doses as low as reasonably achievable, (ALARA). Individualized dose reduction techniques using automated exposure control or adjustment of mA and/or kV according to the patient size were employed. FINDINGS: ABDOMEN: The lung bases demonstrate small bilateral pleural effusions with bibasilar consolidation. Findings appear similar prior. The heart is normal in size . The liver is normal . The patient is status post cholecystectomy. The spleen is unremarkable. No adrenal mass is present. The pancreas is normal . The stomach is distended with fluid. There are multiple hypodense left renal lesions measuring between 10 and 15 mm. There are parapelvic cysts bilaterally. The aorta is normal in caliber . There is no free fluid or adenopathy . The transverse colon is thickened. PELVIS: The appendix is normal. The urinary bladder is unremarkable. There is no significant free fluid or adenopathy . IMPRESSION: Small pleural effusions with bibasilar consolidation, similar to prior exam. Follow-up to resolution is recommended. Review of Systems A complete Review of systems was performed, all other systems were reviewed and are negative except as stated within the HPI. Vital Signs T: 36.5 ??C TMIN: 36.5 ??C TMAX: 36.9 ??C HR: 70(Monitored) RR: 18 BP: 95/50 SpO2: 91% HT: 182.88 cm WT: 79.55 kg BMI: 23.8 Oxygen Settings (Last) Oxygen Therapy Mode: Room air (09/22/20 23:00:00) Physical Exam General: Alert and oriented, ill appearing, no acute distress. at bedside Neurologic: Awake, alert, and oriented X3, CN II-XII intact. Eye: PERRL, EOMI, normal conjunctiva, no scleral icterus HENT: Normocephalic, normal hearing, moist oral mucosa. Neck: Supple, non-tender, no lymphadenopathy. Lungs: non-labored respiration. Heart: Normal rate, regular rhythm, no murmur, or edema. Abdomen: Soft, non-tender, non-distended, normal bowel sounds, no masses.No high pitched or tinkling sounds. No guarding or rebound, no ascites. Musculoskeletal: Normal range of motion and strength, no joint tenderness or swelling. Skin: Skin is warm, dry and pink. Psychiatric: Cooperative, appropriate mood and affect. Assessment/Plan Pancreatitis/elevated bilirubin Mr Del Angel reports he is feeling better today with little to no abdominal pain. Liver enzymes and lipase are improving with hydration. It is felt that elevated LFTs/pancreatitis due to combination of medications/dehydration from chemotherapy. No ductal dilation on US RUQ, therefore ERCP is felt not helpful at this time. Can try clear liquid diet today and advance as tolerated. When tolerated encourage high protein, nutrient-dense diets that include fruits, vegetables, whole grains, low fat dairy, and other lean protein sources. Abstinence from alcohol, tobacco and greasy or fried foods is important in helping to prevent malnutrition, pain. H&P above was performed by Ruth Wallace PA-C and discussed with Dr. Kinney. Thank you for this consultation! I, Ken Kinney, have personally interviewed the patient, reviewed the chart, performed the physical exam and formulated the treatment plan. Constellation of sxs likely attributable to chemotherapy; recommend aggresive hydration at this time. Imaging findings not convincing of biliary obstruction warranting intervention. Orders: NPO (immediate) US Abdominal RT Upper Quad VTE Prophylaxis - Medical Enoxaparin 40 mg, SubCutaneous, Inj, Daily, Routine, Start 09/23/20 9:00:00 EDT, 09/22/20 17:45:00 EDT (CRISTINA LUNDBERG) Provider Information Primary Care Physician - MAZIN SHERIDAN MD-[facility] Attending Physician - CRISTINA LUNDBERG DO Admitting Physician - CRISTINA LUNDBERG DO Consulting Physician - JALEN ENCISO MD-ONC (known enciso patient with esophgeal cancer now with n/v.) Consulting Physician - MIKIE MCQUEEN MD (pancreatitits, elevated bilirubin) Consulting Physician - KEN KINNEY MD Referring Physician - SHAINA, NOT LISTED Problem List/Past Medical History Ongoing Anxiety disorder At risk for sleep apnea Chest pain with high risk for cardiac etiology Esophagus cancer Hyperlipidemia Leg neuralgia Myocardial infarction Historical No qualifying data Procedure/Surgical History cardiac stent, colonoscopy, heart cath, Pacemaker. Medications Inpatient aspirin, 81 mg= 1 Tab, Oral, Daily Colace, 100 mg= 1 Cap, Oral, BID dexAMETHasone + Sodium Chloride 0.9% intravenous solution 50 mL diphenhydrAMINE, 12.5 mg= 0.25 mL, IV Push, 1-Time Dulcolax Laxative, 5 mg= 1 Tab, Oral, Daily, PRN DuoNeb 0.5 mg-2.5 mg/3 mL inhalation solution, 3 mL, Nebulized Inhalation , Q6H, PRN enoxaparin, 40 mg= 0.4 mL, SubCutaneous, Daily granisetron, 1 mg= 1 mL, IV Push, 1-Time hydrALAZINE, 10 mg= 0.5 mL, IV Push, Q6H, PRN LORazepam, 1 mg= 1 Tab, Oral, Q8H, PRN melatonin, 3 mg= 1 Tab, Oral, At Bedtime, PRN morphine, 2 mg= 1 mL, IV Push, Q2H, PRN Normal Saline 1,000 mL, 1000 mL, IntraVENous PACLitaxel + Sodium Chloride 0.9% intravenous solution 500 mL Pepcid, 20 mg= 1 Tab, Oral, Daily Pepcid + Sodium Chloride 0.9% intravenous solution 50 mL Roxicodone, 10 mg= 2 Tab, Oral, Q4H, PRN senna, 8.6 mg= 1 Tab, Oral, BID Sodium Chloride 0.9% intravenous solution, 250 mL, IntraVENous, 1-Time trastuzumab Tylenol, 650 mg= 2 Tab, Oral, Q4H, PRN vancomycin + Sodium Chloride 0.9% intravenous solution 250 mL Zofran, 4 mg= 2 mL, IV Push, Q4H, PRN Zosyn + Sodium Chloride 0.9% intravenous solution 100 mL Home aspirin, 81 mg, Oral, Daily Brilinta (ticagrelor) 90 mg oral tablet LORazepam, 1 mg, Oral, TID multivitamin, 1 Tab, Oral, Daily Allergies No Known Allergies Social History Alcohol Alcohol Use History No. Use in Last 12 Months: No. Substance Abuse Drug Use Hx: No. Tobacco Smoking Status Never smoker. Family History Denies family hx of GI disease/malignancy Diagnostic Results Reason For Exam elevated liver enzymes;ABDOMINAL PAIN REPORT RIGHT UPPER QUADRANT ULTRASOUND HISTORY: Elevated liver function tests. PROCEDURE: Ultrasound images of the right upper quadrant were obtained. FINDINGS: The pancreas is obscured. The liver is homogeneous with normal echogenicity and contour. The liver is normal in size measuring 14.7 mm. The portal vein is patent with normal hepatopedal flow. The gallbladder is surgically absent. The common bile duct measures 7 mm. The common hepatic duct measures less than 5 mm. There is no free fluid. The right kidney demonstrates cortical thinning. The kidney measures 10.8 x 5.1 x 5.8 cm. The right renal volume is 165 mL. There are cystic lesions involving the central renal sinus fat. These may represent parapelvic cysts. Incidental note is made of a small right pleural effusion. IMPRESSION: 1. Homogeneous liver. 2. Cholecystectomy with no ductal dilation. 3. Right renal cortical thinning with no hydronephrosis. 4. Minimal right effusion. Lab Results Test Name Test Result Date/Time Sodium Level 139 mmol/L 09/23/2020 05:08 EDT Sodium Level 138 mmol/L 09/22/2020 10:13 EDT Potassium Level 3.7 mmol/L 09/23/2020 05:08 EDT Potassium Level 4.0 mmol/L 09/22/2020 10:13 EDT Chloride Level 108 mmol/L 09/23/2020 05:08 EDT Chloride Level 103 mmol/L 09/22/2020 10:13 EDT Carbon Dioxide Level 28 mmol/L 09/23/2020 05:08 EDT Carbon Dioxide Level 28 mmol/L 09/22/2020 10:13 EDT Anion Gap 7 (Low) 09/23/2020 05:08 EDT Anion Gap 11 09/22/2020 10:13 EDT Glucose Level 99 mg/dL 09/23/2020 05:08 EDT Glucose Level 120 mg/dL (High) 09/22/2020 10:13 EDT Blood Urea Nitrogen 20 mg/dL 09/23/2020 05:08 EDT Blood Urea Nitrogen 16 mg/dL 09/22/2020 10:13 EDT Creatinine Level 1.10 mg/dL 09/23/2020 05:08 EDT Creatinine Level 1.30 mg/dL 09/22/2020 10:13 EDT eGFR >60 mL/min/1.73m2 09/23/2020 05:08 EDT eGFR >60 mL/min/1.73m2 09/22/2020 10:13 EDT eGFR NonAfrican >60 mL/min/1.73m2 09/23/2020 05:08 EDT eGFR NonAfrican 53 mL/min/1.73m2 (Low) 09/22/2020 10:13 EDT Bun/Creatinine 18.2 09/23/2020 05:08 EDT Bun/Creatinine 12.3 09/22/2020 10:13 EDT Calcium Level 7.5 mg/dL (Low) 09/23/2020 05:08 EDT Calcium Level 9.0 mg/dL 09/22/2020 10:13 EDT Protein Total 5.0 Gram/dL (Low) 09/23/2020 05:08 EDT Protein Total 6.6 Gram/dL 09/22/2020 10:13 EDT Albumin Level 2.1 Gram/dL (Low) 09/23/2020 05:08 EDT Albumin Level 3.0 Gram/dL (Low) 09/22/2020 10:13 EDT Globulin 2.9 Gram/dL 09/23/2020 05:08 EDT Globulin 3.6 Gram/dL 09/22/2020 10:13 EDT A/G Ratio 0.7 (Low) 09/23/2020 05:08 EDT A/G Ratio 0.8 (Low) 09/22/2020 10:13 EDT Bilirubin Total 1.9 mg/dL (High) 09/23/2020 05:08 EDT Bilirubin Total 2.8 mg/dL (High) 09/22/2020 10:13 EDT Alk Phos 170 Units/Liter (High) 09/23/2020 05:08 EDT Alk Phos 343 Units/Liter (High) 09/22/2020 10:13 EDT AST 100 Units/Liter (High) 09/23/2020 05:08 EDT AST 269 Units/Liter (High) 09/22/2020 10:13 EDT ALT 132 Units/Liter (High) 09/23/2020 05:08 EDT ALT 247 Units/Liter (High) 09/22/2020 10:13 EDT Lipase Level 1504 Units/Liter (High) 09/23/2020 05:08 EDT Lipase Level 5762 Units/Liter (High) 09/22/2020 10:13 EDT Lactic Acid Level 2.8 mmol/L (Critical) 09/22/2020 16:02 EDT Lactic Acid Level 3.6 mmol/L (Critical) 09/22/2020 13:45 EDT Lactic Acid Level 2.8 mmol/L (Critical) 09/22/2020 10:13 EDT Troponin I Ultra 0.272 ng/mL (High) 09/23/2020 05:08 EDT Troponin I Ultra 0.661 ng/mL (Critical) 09/22/2020 16:02 EDT Troponin I Ultra 0.795 ng/mL (Critical) 09/22/2020 10:13 EDT ProBNP 2259 pg/mL (High) 09/22/2020 10:13 EDT WBC 8.3 K/uL 09/23/2020 05:08 EDT WBC 12.8 K/uL (High) 09/22/2020 10:13 EDT RBC 2.71 Million/uL (Low) 09/23/2020 05:08 EDT RBC 3.73 Million/uL (Low) 09/22/2020 10:13 EDT Hgb 8.2 g/dL (Low) 09/23/2020 05:08 EDT Hgb 11.3 g/dL (Low) 09/22/2020 10:13 EDT Hct 26.3 % (Low) 09/23/2020 05:08 EDT Hct 35.5 % (Low) 09/22/2020 10:13 EDT MCV 97.0 fL (High) 09/23/2020 05:08 EDT MCV 95.2 fL (High) 09/22/2020 10:13 EDT MCH 30.3 pg 09/23/2020 05:08 EDT MCH 30.3 pg 09/22/2020 10:13 EDT MCHC 31.2 Gram/dL (Low) 09/23/2020 05:08 EDT MCHC 31.8 Gram/dL (Low) 09/22/2020 10:13 EDT Platelet Count 116 K/uL (Low) 09/23/2020 05:08 EDT Platelet Count 189 K/uL 09/22/2020 10:13 EDT MPV 9.7 fL 09/23/2020 05:08 EDT MPV 9.7 fL 09/22/2020 10:13 EDT RDW 15.3 % (High) 09/23/2020 05:08 EDT RDW 14.7 % 09/22/2020 10:13 EDT Neutrophil Percent Man 67 % (High) 09/22/2020 10:13 EDT Band Percent Man 30 % (High) 09/22/2020 10:13 EDT ANC # 12 K/uL 09/22/2020 10:13 EDT Lymph Percent Man 1 % (Low) 09/22/2020 10:13 EDT ALYC # 0 K/uL 09/22/2020 10:13 EDT [place] Percent Man 1 % (Low) 09/22/2020 10:13 EDT Eos Percent Man 0 % 09/22/2020 10:13 EDT Baso Percent Man 0 % 09/22/2020 10:13 EDT [place] Percent Man 1 % 09/22/2020 10:13 EDT RBC Morphology Abnormal 09/22/2020 10:13 EDT Anisocytosis 1+ (Abnormal) 09/22/2020 10:13 EDT Hypochromia 1+ (Abnormal) 09/22/2020 10:[address] Estimate Adequate 09/22/2020 10:13 EDT PT 11.5 Second(s) 09/22/2020 16:02 EDT INR 1.1 09/22/2020 16:02 EDT Urine Type. U CleanCatch 09/22/2020 11:25 EDT Urine Color TORREY 09/22/2020 11:25 EDT Urine Appearance CLEAR2 09/22/2020 11:25 EDT Urine Specific [place] 1.016 09/22/2020 11:25 EDT Urine pH Dipstick 7.0 09/22/2020 11:25 EDT Urine Leukocyte Esterase NEGATIVE2 09/22/2020 11:25 EDT Urine Nitrite NEGATIVE2 09/22/2020 11:25 EDT Urine Protein Dipstick NEGATIVE2 09/22/2020 11:25 EDT Urine Glucose Dipstick NEGATIVE2 09/22/2020 11:25 EDT Urine Ketones Dipstick NEGATIVE2 09/22/2020 11:25 EDT Urine Urobilinogen Dipstick 4.0 (Abnormal) 09/22/2020 11:25 EDT Urine Bilirubin Dipstick SMALL2 (Abnormal) 09/22/2020 11:25 EDT Urine Blood Dipstick NEGATIVE2 09/22/2020 11:25 EDT Urine Culture if Indicated Culture Ordered 09/22/2020 11:25 EDT Cholesterol Tot 60 mg/dL 09/23/2020 05:08 EDT Triglyceride 51 mg/dL 09/23/2020 05:08 EDT Cholesterol HDL 21.0 mg/dL 09/23/2020 05:08 EDT Cholesterol LDL Calculation 28.8 mg/dL 09/23/2020 05:08 EDT Cholesterol/HDL Ratio 2.9 09/23/2020 05:08 EDT LDL/HDL Ratio 1.4 09/23/2020 05:08 EDT Cholesterol VLDL Calculation 10.2 mg/dL 09/23/2020 05:08 EDT Procalcitonin 40.19 ng/mL (High) 09/23/2020 05:08 EDT Procalcitonin 45.30 ng/mL (High) 09/22/2020 10:13 EDT Hep A IgM AB Non Reactive 09/23/2020 05:08 EDT Hep B Surf AG Non Reactive 09/23/2020 05:08 EDT Hep B Core Non Reactive 09/23/2020 05:08 EDT Hep C AB Non Reactive 09/23/2020 05:08 EDT Influenza A NEGATIVE3 09/22/2020 11:41 EDT Influenza B NEGATIVE3 09/22/2020 11:41 EDT SARS-CoV-2 (COVID19 PCR) NEGATIVE3 09/22/2020 11:41 EDT documented in this encounter Plan of Treatment Upcoming Encounters Date Type Department Care Team (Late st Contact Info) Description 11/24/2024 2:00 PM EDT Office Visit [facility] [address] [place] [address] Jalen Enciso MD [address] [place] [address] documented as of this encounter Visit Diagnoses Not on filedocumented in this encounter Care Teams Dry Dip Worker Relationship Specialty Start Date End Date MendyKaylene dunn MD [address] [place] [address] PCP - General General Internal Medicine 01/27/22 Farooq Marcus MD [address] [place] [address] PCP - General Family Medicine 02/27/22 documented as of this encounter
--- OUTSIDE RECORDS SUMMARY | 2024-11-21 21:25 | XMS_ITS | Encounter Summary ---
Author Organization [employer] ([place], [place], [place], [place]) Address [address] [place] [address] Care Team Providers Care Exhibit Designer Name Role Phone Kaylene Brooke MD Primary Care Provider [phone] Farooq Marcus MD Primary Care Provider [phone] Encounter Details Date Type Department Care Team (Late st Contact Info) Description 10/12/2020 Transcribed Document [facility] [place] [address] [place] [address] ProviderRayray MD [address] [place], [place] [id number] Social History Tobacco Use Types Packs/Day Years Used Date Smoking Tobacco: Never Assessed Sex and Gender Information Value Date Recorded Sex Assigned at Not on file Legal Sex Male 5:14 PM CDT Gender Identity Not on file Sexual Orientation Not on file documented as of this encounter Miscellaneous Notes * [employer]ner Conversion Note - Rayray ProviderMD - 10/12/2020 2:00 AM CDT Manager Convention Details Entered On: 10/12/2020 1:13 EDT Performed On: 10/12/2020 2:00 EDT by Elidia Marie Lpn Order Details Isolation Precautions Order Detail : Standard Precautions Order Detail : N/A IV Order Detail : 1 Oxygen Order Detail : 0 Lift/Transfer : Minimal Central Line Order Detail : No Room Service : Appropriate Arterial Line : No Patient Needs Meds Crushed/Liquid : No Elidia Marie Lpn - 10/12/2020 1:13 EDT documented in this encounter Plan of Treatment Upcoming Encounters Date Type Department Care Team (Late st Contact Info) Description 11/24/2024 2:00 PM EDT Office Visit [facility] - [address] [place] [address] Jalen Enciso MD [address] [place] [address] documented as of this encounter Visit Diagnoses Not on filedocumented in this encounter Care Teams Exhibit Designer Relationship Specialty Start Date End Date MendyKaylene dunn MD [address] [place] [address] PCP - General General Internal Medicine 01/27/22 Farooq Marcus MD [address] [place] [address] PCP - General Family Medicine 02/27/22 documented as of this encounter
--- OUTSIDE RECORDS SUMMARY | 2024-11-21 21:25 | XMS_ITS | Encounter Summary ---
Author Organization [employer] ([place], [place], [place], [place]) Address [address] [place] [address] Care Team Providers Care Test Architect Name Role Phone Kaylene Brooke MD Primary Care Provider [phone] Farooq Marcus MD Primary Care Provider [phone] Encounter Details Date Type Department Care Team (Late st Contact Info) Description 09/23/2020 Transcribed Document [facility] [place] [facility] [place] [facility] [place] [address] ProviderRayray MD [address] [place], [place] [address] Social History Tobacco Use Types Packs/Day Years Used Date Smoking Tobacco: Never Assessed Sex and Gender Information Value Date Recorded Sex Assigned at Not on file Legal Sex Male 5:14 PM CDT Gender Identity Not on file Sexual Orientation Not on file documented as of this encounter Miscellaneous Notes * Cerner Conversion Note - Historical ProviderMD - 09/23/2020 9:46 AM CDT Attempt to Treat, PT Entered On: 09/23/2020 9:48 EDT Performed On: 09/23/2020 9:46 EDT by ACOSTA REEVES, PT Attempt to Treat Unable to Treat Due To : Patient Unavailable Inability to Treat Comment : Patient currently receiving bedside echocardiogram. PT will follow-up as schedule permits. ACOSTA REEVES, PT - 09/23/2020 9:46 EDT Electronically signed by Nidia [facility] Conversion [employer] at 06/29/2022 2:29 PM CDT documented in this encounter Plan of Treatment Upcoming Encounters Date Type Department Care Team (Late st Contact Info) Description 11/24/2024 2:00 PM EDT Office Visit [facility] - [address] [place] [address] Jalen Enciso MD [address] [place] [address] documented as of this encounter Visit Diagnoses Not on filedocumented in this encounter Care Teams Test Architect Relationship Specialty Start Date End Date MendyKaylene MD [address] [place] [address] PCP - General General Internal Medicine 01/27/22 Farooq Marcus MD [address] [place] [address] PCP - General Family Medicine 02/27/22 documented as of this encounter
--- OUTSIDE RECORDS SUMMARY | 2024-11-21 21:25 | XMS_ITS | Encounter Summary ---
Author Organization [employer] ([place], [place], [place], [place]) Address [address] [place] [address] Care Team Providers Care Cotton Seed Culler Name Role Phone Kaylene Brooke MD Primary Care Provider [phone] Farooq Marcus MD Primary Care Provider [phone] Encounter Details Date Type Department Care Team (Late st Contact Info) Description 09/23/2020 Transcribed Document [facility] [place] Medicine [facility] [place] [address] ProviderRayray MD [address] [place] [address] Social History Tobacco Use Types Packs/Day Years Used Date Smoking Tobacco: Never Assessed Sex and Gender Information Value Date Recorded Sex Assigned at Not on file Legal Sex Male 5:14 PM CDT Gender Identity Not on file Sexual Orientation Not on file documented as of this encounter Miscellaneous Notes * Cerner Conversion Note - Historical ProviderMD - 09/23/2020 12:01 PM CDT Treatment Intervention, PT Entered On: 09/24/2020 15:11 EDT Performed On: 09/24/2020 15:04 EDT by MATIAS KERN PTA General Information, PT Visit Type, PT : Treatment Note Patient Orders : Order Date Order Ordering 09/22/2020 17:15 PT Evaluation and Treatment Ordered By: CRISTINA LUNDBERG DO 09/23/2020 12:01 PT Additional Treatment Ordered By: ACOSTA REEVES PT Active Diagnoses : 09/22/2020 12:00 Abdominal pain 09/22/2020 12:00 Acute pancreatitis without necrosis or infection, unspecified 09/22/2020 12:00 Non-ST elevation (NSTEMI) myocardial infarction 09/22/2020 12:00 Sepsis, unspecified organism Therapy Diagnosis, PT : Unsteady gait without assistive device. Admission Date : 09/22/2020 16:03 Co-treated by, PT : Occupational Therapist Personal Devices : Personal Devices No Devices Recorded Assistive Devices : Assistive Devices No Devices Recorded MATIAS KERN PTA - 09/24/2020 15:04 EDT General Status Patient Received Status : Supine in bed Treatment Start Time : 09/24/2020 13:34 EDT Patient Left Status : Supine in bed, Family/Visitors at bedside, All needs met and within reach RN/PCT Informed Comment : MERA Sanderson ok'd to treat. Treatment End Time : 09/24/2020 13:48 EDT Treatment Time : 14 Minute(s) MATIAS KERN PTA - 09/24/2020 15:04 EDT Functional Mobility Mobility Grid Supine to Sit : Rehab Minimal assistance Sit to Stand : Supervision/set-up Stand to Sit : Supervision/set-up Sit to Supine : Supervision/set-up MATIAS KERN PTA - 09/24/2020 15:04 EDT Bed Comment : patient required encouragment to participate stating he was really tired but agreed to walk so they could changed his bed while he was up ; verbal cues for proper hand placement during transfers but not demonstrated Sit to Stand Device : Walker, front wheel MATIAS KERN PTA - 09/24/2020 15:04 EDT Gait Training/Assessment, PT Weight Bearing Status Maintained : Yes Weight Bearing Status : Full Gait Assistance Level : Supervision Walking Distance : 525ft Ambulatory Devices : Gait belt, Walker, front wheel Gait Deviations : Yes Gait Training Comment : verbal cues for keeping his feet up in walker especially during turns ; amb on 4L of o2 with no signs of distress MATIAS KERN PTA - 09/24/2020 15:04 EDT Cognitive Treatment, PT Orientation : Oriented x 4 MATIAS KERN PTA - 09/24/2020 15:04 EDT Edu Topics Physical Therapy Education Grid Gait Training : Returns demonstration, Needs further teaching Role of Physical Therapy : Returns demonstration Transfer Training : Returns demonstration, Needs further teaching MATIAS KERN PTA - 09/24/2020 15:04 EDT Indication Assesessment, PT Physical Therapy Indicated : Yes MATIAS KERN PTA - 09/24/2020 15:04 EDT Plan of Care, PT PT Tx Plan/Goals Established w Patient : Yes CONCHA GUALBERTO SALCEDO - 09/24/2020 15:04 EDT Short Term Goals Mobility/Bed Mobility STG PT Grid Goal #1 Goal #2 Activity : Supine to sit Sit to stand Assist : Independent, complete Independent, modified Date to Meet : 09/30/2020 EDT 09/30/2020 EDT Goal Status : Progressing, continue Progressing, continue MATIAS KERN PTA - 09/24/2020 15:04 EDT MATIAS KERN PTA - 09/24/2020 15:04 EDT Ambulation STG Grid Goal #1 Device : Walker, front wheel Distance : 375' Assist : Independent, modified Date to Meet : 09/30/2020 EDT Goal Status : Progressing, continue MATIAS KERN PTA - 09/24/2020 15:04 EDT Solution Developer Goals Ambulation LTG Grid Goal #1 Device : Walker, front wheel Distance : 475' Assist : Independent, modified Date to Meet : 10/07/2020 EDT Goal Status : Progressing, continue MATIAS KERN PTA - 09/24/2020 15:04 EDT Treatment Note Subjective Comment : Patient agrees to treat after some encouragement but states he didnt sleep well last night Assessment : Patient has improved amb endurance this date towards goals Plan for Treatment : Continue per POC. MATIAS KERN PTA - 09/24/2020 15:04 EDT Pain Assessment Pain Comment : no complaints of pain noted MATIAS KERN PTA - 09/24/2020 15:04 EDT Image 1 - Images currently included in the form version of this document have not been included in the text rendition version of the form. Anticipated Discharge Needs, OT/PT Anticipated Discharge to : Home, with home health MATIAS KERN PTA - 09/24/2020 15:04 EDT [place] PT Charges [facility] [employer] [facility] PT Therap. Exercise 15 min-[facility] [employer] : 1 MATIAS KERN PTA - 09/24/2020 15:04 EDT Electronically signed by Nidia [facility] Conversion Associate Merchant Cerner at 07/02/2022 4:56 PM CDT documented in this encounter Plan of Treatment Upcoming Encounters Date Type Department Care Team (Late st Contact Info) Description 11/24/2024 2:00 PM EDT Office Visit [facility] [place] [address] [place] [address] Jalen Enciso MD [address] [place] [address] documented as of this encounter Visit Diagnoses Not on filedocumented in this encounter Care Teams Cotton Seed Culler Relationship Specialty Start Date End Date EmndyKaylene dunn MD [address] [place] [address] PCP - General General Internal Medicine 01/27/22 Farooq Marcus MD [address] [place] [address] PCP - General Family Medicine 02/27/22 documented as of this encounter
--- OUTSIDE RECORDS SUMMARY | 2024-11-21 21:25 | XMS_ITS | Encounter Summary ---
Author Organization [employer] ([place], [place], [place], [place]) Address [address] [place] [address] Care Team Providers Care Social Media Marketing Specialist Name Role Phone Kaylene Brooke MD Primary Care Provider [phone] Farooq Marcus MD Primary Care Provider [phone] Encounter Details Date Type Department Care Team (Late st Contact Info) Description 10/11/2020 Transcribed Document [facility] [place] [address] [place] [address] ProviderRayray MD [address] [place] [address] Social History Tobacco Use Types Packs/Day Years Used Date Smoking Tobacco: Never Assessed Sex and Gender Information Value Date Recorded Sex Assigned at Not on file Legal Sex Male 5:14 PM CDT Gender Identity Not on file Sexual Orientation Not on file documented as of this encounter Miscellaneous Notes * Cerner Conversion Note - Rayray ProviderMD - 10/11/2020 4:00 AM CDT Height and Weight, Routine Entered On: 10/11/2020 5:54 EDT Performed On: 10/11/2020 4:00 EDT by Elidia Marie Lpn Height and Weight, Routine Routine Weight Entry Format : [place] Routine Weight, Pounds : 148 lb Routine Weight, Ounces : 7 oz Routine Weight Calculation : 67.47 kg Height Source : Stated Height Entry Format : [place] Height, Feet : 6 ft Height, Inches : 0 Inch Clinical Height : 182.88 cm Body Surface Area (BSA), Routine : 1.88 m2 Body Mass Index (BMI), Routine : 20.17 kg/m2 Elidia Marie, Patent Solicitor - 10/11/2020 5:52 EDT Electronically signed by Malina Jacob Conversion Wire Straightening Machine Operator Cerner at 06/29/2022 2:12 PM CDT documented in this encounter Plan of Treatment Upcoming Encounters Date Type Department Care Team (Late st Contact Info) Description 11/24/2024 2:00 PM EDT Office Visit [facility] [address] [place] [address] Jalen Enciso MD [address] [place] [address] documented as of this encounter Visit Diagnoses Not on filedocumented in this encounter Care Teams Social Media Marketing Specialist Relationship Specialty Start Date End Date Kaylene Brooke MD [address] [place] [address] PCP - General General Internal Medicine 01/27/22 Farooq Marcus MD [address] [place] [address] PCP - General Family Medicine 02/27/22 documented as of this encounter
--- OUTSIDE RECORDS SUMMARY | 2024-11-21 21:25 | XMS_ITS | Encounter Summary ---
Author Organization [employer] ([place], [place], [place], [place]) Address [address] [place] [address] Care Team Providers Care Supervisor Grain And Yeast Plants Name Role Phone Kaylene Brooke MD Primary Care Provider [phone] Farooq Marcus MD Primary Care Provider [phone] Encounter Details Date Type Department Care Team (Late st Contact Info) Description 09/24/2020 Transcribed Document [facility] [place] Family Medicine [address] [place] [address] ProviderRayray MD [address] [place], [place] [address] Social History Tobacco Use Types Packs/Day Years Used Date Smoking Tobacco: Never Assessed Sex and Gender Information Value Date Recorded Sex Assigned at Not on file Legal Sex Male 5:14 PM CDT Gender Identity Not on file Sexual Orientation Not on file documented as of this encounter Miscellaneous Notes * Cerner Conversion Note - Rayray San MD - 09/24/2020 8:50 AM CDT Patient: DOYLE DEL ANGEL Age: 84 years Sex: Male : 1935 Associated Diagnoses: None Author: JALEN ENCISO MD-ONC Attachments: None Subjective Chief complaint Chief complaint Still with some abdominal pain and nausea Health Status Allergies Allergies (1) Active [...] 0.9% 250 mL 1,250 mg, IV Piggyback, [id number] Continuous: (1) NaCl 0.9% 1,000 mL 1,000 [...] Oral, Q4H Objective General Alert and oriented Eye Pupils are equal, round and reactive to light HENT Normocephalic Neck Supple Respiratory Lungs are clear to auscultation Respirations are non-labored Cardiovascular Normal rate Regular rhythm Gastrointestinal Soft Some right sided discomfort Impression and Plan Assessment and Plan Diagnosis Pancreatitis. GE junction cancer with mets in remission Course Progressing as expected Orders Observe watch blood counts. Discvussed jonathan patient and spouse. Electronically signed by Malina Jacob Conversion Electrical Engineering Drafting Officer Cerner at 06/29/2022 2:12 PM CDT documented in this encounter Plan of Treatment Upcoming Encounters Date Type Department Care Team (Late st Contact Info) Description 11/24/2024 2:00 PM EDT Office Visit [facility] - [place] [address] [place] [address] Jalen Enciso MD [address] [place] [address] documented as of this encounter Visit Diagnoses Not on filedocumented in this encounter Care Teams Supervisor Grain And Yeast Plants Relationship Specialty Start Date End Date Kaylene Brooke MD [address] [place] [address] PCP - General General Internal Medicine 01/27/22 Farooq Marcus MD [address] [facility] [place] [address] PCP - General Family Medicine 02/27/22 documented as of this encounter
--- OUTSIDE RECORDS SUMMARY | 2024-11-21 21:25 | XMS_ITS | Encounter Summary ---
Author Organization [employer] ([place], [place], [place], [place]) Address [address] [place] [address] Care Team Providers Care Forms Designer Name Role Phone Kaylene Brooke MD Primary Care Provider [phone] Farooq Marcus MD Primary Care Provider [phone] Encounter Details Date Type Department Care Team (Late st Contact Info) Description 10/13/2020 Transcribed Document [facility] [place] Family [place] [facility] [place] [address] ProviderRayray MD [address] [place] [address] Social History Tobacco Use Types Packs/Day Years Used Date Smoking Tobacco: Never Assessed Sex and Gender Information Value Date Recorded Sex Assigned at Not on file Legal Sex Male 5:14 PM CDT Gender Identity Not on file Sexual Orientation Not on file documented as of this encounter Miscellaneous Notes * Cerner Conversion Note - Rayray ProviderMD - 10/13/2020 11:55 AM CDT Nursing Discharge Summary Entered On: 10/13/2020 11:55 EDT Performed On: 10/13/2020 11:55 EDT by Randi Johnson Rn-Traveler Discharge Documentation Discharge Date/Time : 10/14/2020 12:00 EDT Patient Disposition, General : Discharge Discharge To : Home with ambulatory/outpatient follow-up Education Comment : POC, safety, med mgmt, pain control Randi Johnson Rn-Traveler - 10/13/2020 11:55 EDT Electronically signed by Malina Jacob Conversion Information Systems Administrator Cerner at 06/29/2022 2:12 PM CDT documented in this encounter Plan of Treatment Upcoming Encounters Date Type Department Care Team (Late st Contact Info) Description 11/24/2024 2:00 PM EDT Office Visit [facility] - [place] [address] [place] [address] Jlaen Enciso MD [address] [place] [address] documented as of this encounter Visit Diagnoses Not on filedocumented in this encounter Care Teams Forms Designer Relationship Specialty Start Date End Date MendyKaylene dunn MD [address] [place] [address] PCP - General General Internal Medicine 01/27/22 Farooq Marcus MD [address] [facility] [place] [address] PCP - General Family Medicine 02/27/22 documented as of this encounter
--- OUTSIDE RECORDS SUMMARY | 2024-11-21 21:25 | XMS_ITS | Encounter Summary ---
Author Organization [employer] ([place], [place], [place], [place]) Address [address] [place] [address] Care Team Providers Care Zinc Plating Machine Operator Name Role Phone Kaylene Brooke MD Primary Care Provider [phone] Farooq Marcus MD Primary Care Provider [phone] Encounter Details Date Type Department Care Team (Late st Contact Info) Description 10/12/2020 Transcribed Document [facility] [place] [address] [place] [address] ProviderRayray MD [address] [place], [place] [address] Social History Tobacco Use Types Packs/Day Years Used Date Smoking Tobacco: Never Assessed Sex and Gender Information Value Date Recorded Sex Assigned at Not on file Legal Sex Male 5:14 PM CDT Gender Identity Not on file Sexual Orientation Not on file documented as of this encounter Miscellaneous Notes * Cerner Conversion Note - Rayray ProviderMD - 10/12/2020 8:00 AM CDT [facility] Endo PreOp Summary Primary Physician: NATE KINNEY MD Finalized Date/Time: 10/12/20 07:57:26 Pt. Name: DOYLE DEL ANGEL Jesse Leal/Sex: 1935 Male Med Rec #: [id number] Physician: PARKER RAVI MD-INT Financial #: [id number] Pt. Type: I Room/Bed: [facility]/ Admit/Disch: 10/10/20 10:58:00 - Institution: [facility] Endo PreOp Case Times Entry 1 In Preop 10/12/20 07:49:00 Ready for Holding n/a Room Patient Ready for 10/12/20 07:59:00 Surgery Patient Out of Preop 10/12/20 07:59:00 Patient Out of n/a Holding Room Last Modified By: Celeste Rich Rn 10/12/20 07:57:23 [facility] Endo PreOp Case Times Audit 10/12/20 07:57:23 Utility Worker Roller Shop: MFWARD Modifier: MFWARD <+> 1 Patient Out of Preop <+> 1 Patient Ready for Surgery Finalized By: Celeste Rich, Rn Document Signatures Signed By: Celeste Rich Rn 10/12/20 07:57 Electronically signed by Nidia [facility] Conversion Gravity Prospecting Operator Cerner at 06/29/2022 2:35 PM CDT documented in this encounter Plan of Treatment Upcoming Encounters Date Type Department Care Team (Late st Contact Info) Description 11/24/2024 2:00 PM EDT Office Visit [facility] - [place] [address] [place] [address] Jalen Enciso MD [address] [place] [address] documented as of this encounter Visit Diagnoses Not on filedocumented in this encounter Care Teams Zinc Plating Machine Operator Relationship Specialty Start Date End Date Kaylene Brooke MD [address] [place] [address] PCP - General General Internal Medicine 01/27/22 Farooq Marcus MD [address] [place] [address] PCP - General Family Medicine 02/27/22 documented as of this encounter
--- OUTSIDE RECORDS SUMMARY | 2024-11-21 21:25 | XMS_ITS | Encounter Summary ---
Author Organization [employer] ([place], [place], [place], [place]) Address [address] [place] [address] Care Team Providers Care Supply Coordinator Name Role Phone Kaylene Brooke MD Primary Care Provider [phone] Farooq Marcus MD Primary Care Provider [phone] Encounter Details Date Type Department Care Team (Late st Contact Info) Description 09/24/2020 Transcribed Document [facility] [place] [facility] [place] [address] ProviderRayray MD [address] [place], [place] [address] Social History Tobacco Use Types Packs/Day Years Used Date Smoking Tobacco: Never Assessed Sex and Gender Information Value Date Recorded Sex Assigned at Not on file Legal Sex Male 5:14 PM CDT Gender Identity Not on file Sexual Orientation Not on file documented as of this encounter Miscellaneous Notes * Cerner Conversion Note - Rayray ProviderMD - 09/24/2020 4:38 PM CDT On Going Discharge Planning Entered On: 09/24/2020 16:39 EDT Performed On: 09/24/2020 16:38 EDT by ELIZABETH LAMBERT, MERA-District SupervisorAuto Collision Repair Instructor Progress Note Discharge Arrangements : Patient Post-Acute Information Patient Name: DOYLE DEL ANGEL Gender: Male : [birth year] Age: 84 Years No Post-Acute Placement(s) Listed No Post-Acute Service(s) Listed No [place] Referral(s) Listed ELIZABETH LAMBERT, RN-District Supervisor - 09/24/2020 16:38 EDT Narrative Progress Note Narrative Progress Note : rrs mod plans pending -augusto shannon previous charting :DCP: patient states he plans on going home with spouse, who will transport, therapy recommends home health and rolling walker at discharge and patient agrees to this if MD feels appropriate. CM will continue to follow. ELIZABETH LAMBERT, RN-District Supervisor - 09/24/2020 16:38 EDT Electronically signed by Nidia [facility] Conversion Rug Cleaner Cerner at 06/29/2022 2:11 PM CDT documented in this encounter Plan of Treatment Upcoming Encounters Date Type Department Care Team (Late st Contact Info) Description 11/24/2024 2:00 PM EDT [facility] Visit [facility] [address] [place] [address] Jalen Enciso MD [address] [facility] [address] [place] [address] documented as of this encounter Visit Diagnoses Not on filedocumented in this encounter Care Teams Supply Coordinator Relationship Specialty Start Date End Date MendyKaylene dunn MD [address] [place] [address] PCP - General General Internal Medicine 01/27/22 Farooq Marcus MD [address] [place] [address] PCP - General Family Medicine 02/27/22 documented as of this encounter
--- OUTSIDE RECORDS SUMMARY | 2024-11-21 21:25 | XMS_ITS | Encounter Summary ---
Author Organization [employer] ([place], [place], [place], [place]) Address [address] [place] [address] Care Team Providers Care Human Resources Benefits Coordinator Name Role Phone Kaylene Brooke MD Primary Care Provider [phone] Farooq Marcus MD Primary Care Provider [phone] Encounter Details Date Type Department Care Team (Late st Contact Info) Description 09/23/2020 Transcribed Document [facility] [place] Family Medicine [address] [place] [address] ProviderRayray MD [address] [place], [place] [address] Social History Tobacco Use Types Packs/Day Years Used Date Smoking Tobacco: Never Assessed Sex and Gender Information Value Date Recorded Sex Assigned at Not on file Legal Sex Male 5:14 PM CDT Gender Identity Not on file Sexual Orientation Not on file documented as of this encounter Miscellaneous Notes * Cerner Conversion Note - Historical ProviderMD - 09/23/2020 4:00 AM CDT Height and Weight, Routine Entered On: 09/23/2020 7:07 EDT Performed On: 09/23/2020 4:00 EDT by Sean Guidry Rn Height and Weight, Routine Routine Weight Entry Format : Metric Height Source : Chart Height Entry Format : [place] Height, Feet : 6 ft Height, Inches : 0 Inch Clinical Height : 182.88 cm Sean Guidry Rn - 09/23/2020 7:07 EDT documented in this encounter Plan of Treatment Upcoming Encounters Date Type Department Care Team (Late st Contact Info) Description 11/24/2024 2:00 PM EDT Office Visit [facility] - [place] [address] [place] [address] Jalen Enciso MD [address] [facility] [address] [place] [address] documented as of this encounter Visit Diagnoses Not on filedocumented in this encounter Care Teams Human Resources Benefits Coordinator Relationship Specialty Start Date End Date Kaylene Brooke MD [address] [place] [address] PCP - General General Internal Medicine 01/27/22 Farooq Marcus MD [address] [place] [address] PCP - General Family Medicine 02/27/22 documented as of this encounter
--- OUTSIDE RECORDS SUMMARY | 2024-11-21 21:25 | XMS_ITS | Encounter Summary ---
Author Organization [employer] ([place], [place], [place], [place]) Address [address] [place] [address] Care Team Providers Care Public Health Program Manager Name Role Phone Kaylene Brooke MD Primary Care Provider [phone] Farooq Marcus MD Primary Care Provider [phone] Encounter Details Date Type Department Care Team (Late st Contact Info) Description 01/26/2021 Transcribed Document [facility] [place] Family Medicine [address] [place] [address] Rayray San MD [address] [place], [place] [address] Social History Tobacco Use Types Packs/Day Years Used Date Smoking Tobacco: Never Assessed Sex and Gender Information Value Date Recorded Sex Assigned at Not on file Legal Sex Male 5:14 PM CDT Gender Identity Not on file Sexual Orientation Not on file documented as of this encounter Miscellaneous Notes * Cerner Conversion Note - Rayray San MD - 01/26/2021 12:21 PM DERRICK HELPER Patient Education Materials Follows:Disease Wound Infection A wound infection happens when [...] antibiotic medicine. ? The infection should improve 24?48 hours after you start antibiotics. ? After 24?48 hours, redness around the wound should stop spreading. The wound should also be less painful. Follow these instructions at home: Medicines ??? Take or apply syrl-fob-yzkfhlg and prescription medicines only as told by [...] cannot use soap and water, use hand track rider. ? Change your bandage as told by [...] does not start to get better in 24?48 hours, or your symptoms get worse. ??? Keep all follow-up visits as told by your doctor. This is important. This information is not intended to replace advice given to you by your health care provider. Make sure you discuss any questions you have with your health care provider. Document Revised: 10/08/2018 Document Reviewed: 10/08/2018 [employer] Patient Education ? 2020 [employer]vier Inc[employer] Pharmacology Moderate Conscious Sedation, Adult, Care After This [...] you are awake and alert. ??? Take tkvp-[id number]-[id number] and prescription medicines only as told by [...] provider. Document Revised: 01/22/2020 Document Reviewed: 01/22/2020 Elsevier Patient Education ? 2020 [employer] documented in this encounter Plan of Treatment Upcoming Encounters Date Type Department Care Team (Late st Contact Info) Description 11/24/2024 2:00 PM EDT Office Visit [facility] [address] [place] [address] Jalen Enciso MD [address] [place] [address] documented as of this encounter Visit Diagnoses Not on filedocumented in this encounter Care Teams Public Health Program Manager Relationship Specialty Start Date End Date Kaylene Brooke MD [address] [place] [address] PCP - General General Internal Medicine 01/27/22 Farooq Marcus MD [address] [place] [address] PCP - General Family Medicine 02/27/22 documented as of this encounter
--- OUTSIDE RECORDS SUMMARY | 2024-11-21 21:25 | XMS_ITS | Encounter Summary ---
Author Organization [employer] ([place], [place], [place], [place]) Address [address] [place] [address] Care Team Providers Care Fold Skiver Name Role Phone Kaylene Brooke MD Primary Care Provider [phone] Farooq Marcus MD Primary Care Provider [phone] Encounter Details Date Type Department Care Team (Late st Contact Info) Description 10/11/2020 Transcribed Document [facility] [place] [facility] [place] [address] Rayray San MD [address] [place], [place] [address] Social History Tobacco Use Types Packs/Day Years Used Date Smoking Tobacco: Never Assessed Sex and Gender Information Value Date Recorded Sex Assigned at Not on file Legal Sex Male 5:14 PM CDT Gender Identity Not on file Sexual Orientation Not on file documented as of this encounter Miscellaneous Notes * Cerner Conversion Note - Rayray San MD - 10/11/2020 8:53 AM CDT Patient: DOYLE DEL ANGEL Age: 84 years Sex: Male : 1935 Associated Diagnoses: None Author: JALEN ENCISO MD-ONC Attachments: None Subjective Chief complaint Chief complaint Unable to eat much. Very weak. Recent CT brain. Had CT abdoemn without patholgy 2 weeks ago and PET scan 6 weeks ago without measurable disease. Last chemotherapy was 09/17 with no plans for additional treaytemnt. Health Status Allergies Allergies (1) Active Reaction oxyCODONE None Documented Current medications Medications (16) Active Scheduled: (9) aspirin 81 mg chew tab 81 mg [...] 150 mg 1 Cap, Oral, Daily Continuous: (0) PRN: (7) acetaminophen 325 mg tab 650 [...] IntraVENous, Q6H Objective General Alert and oriented Mild distress Eye Pupils are equal, round and reactive to light HENT Normocephalic Neck Supple Respiratory Lungs are clear to auscultation Respirations are non-labored Cardiovascular Normal rate Regular rhythm Gastrointestinal Soft Non-distended Impression and Plan Assessment and Plan Diagnosis Adenocarcinoma of esophagus with good response. Now jonathan anorexia/weakness. without evidence of pancreatitis Course Progressing as expected Orders Megace. Cardenas, have GI see for consideration of EGD-I'm uncertain if he has one recently. . documented in this encounter Plan of Treatment Upcoming Encounters Date Type Department Care Team (Late st Contact Info) Description 11/24/2024 2:00 PM EDT Office Visit [facility] - [address] [facility] [facility] [address] [place] [address] Jalen Enciso MD [address] [facility] [address] [place] [address] documented as of this encounter Visit Diagnoses Not on filedocumented in this encounter Care Teams Fold Skiver Relationship Specialty Start Date End Date Kaylene Brooke MD [address] [place] [address] PCP - General General Internal Medicine 01/27/22 Farooq Marcus MD [address] [place] [address] PCP - General Family Medicine 02/27/22 documented as of this encounter
--- OUTSIDE RECORDS SUMMARY | 2024-11-21 21:25 | XMS_ITS | Encounter Summary ---
Author Organization [employer] ([place], [place], [place], [place]) Address [address] [place] [address] Care Team Providers Care Printed Circuit Boards Contact Printer Name Role Phone Kaylene Brooke MD Primary Care Provider [phone] Farooq Marcus MD Primary Care Provider Encounter Details Date Type Department Care Team (Late st Contact Info) Description 09/25/2020 Transcribed Document [facility] [place] [address] [place] [address] ProviderRayray MD [address] [place], [place] [address] Social History Tobacco Use Types Packs/Day Years Used Date Smoking Tobacco: Never Assessed Sex and Gender Information Value Date Recorded Sex Assigned at Not on file Legal Sex Male 5:14 PM CDT Gender Identity Not on file Sexual Orientation Not on file documented as of this encounter Miscellaneous Notes * Cerner Conversion Note - Rayray ProviderMD - 09/25/2020 6:31 PM CDT Patient: DOYLE DEL ANGEL Age: 84 Years Sex: Male : 1935 Subjective Pt tolerating CLD hopes to advance diet soon. Vital Signs T: 36.7 ??C TMIN: 36.4 ??C TMAX: 36.9 ??C HR: 70(Monitored) RR: 16 BP: 131/67 SpO2: 92% Oxygen Settings (Last) Oxygen Therapy Mode: Room air (09/25/20 17:37:00) Oxygen Flow Rate: 2 Liter/Min (09/25/20 10:04:00) Intake & Output Totals Last 24 Hours (7a-7a) Input Total: 404.43 mL Output Total: 0 mL Balance: 404.43 mL Physical Exam General: [Alert and oriented, NAD]. Neurologic: [Awake, alert, and oriented X3, no focal deficits appreciated]. Eye: [PERRL, normal conjuctiva]. HENT: [Normocephalic, no scleral icterus]. Neck: [Supple, no JVD]. Lungs: [Clear to auscultation, non-labored respiration, sat'ing well on RA]. Heart: [Normal rate, regular rhythm, no murmur, gallop or edema]. Abdomen: [Soft, mild tenderness RUQ and LUQ, non-distended, normal bowel sounds, no masses]. Musculoskeletal: [Normal range of motion, no tenderness or swelling]. Skin: [Skin is warm, dry and pink, no rashes or lesions]. Psychiatric: [Cooperative, appropriate mood and affect]. Assessment/Plan Severe sepsis due to pna - bandemia and lactic acidosis level on admission were both elevated but improved -CXR showed bibasilar opacities - continue zosyn, vanc DC'ed pancreatitis, improved -On admission lipase 5,000's -elevated bilirubin noted, pt s/p lap lala per CT scan (pt unaware he had had prior cholecystectomy) -gi consult appreciated, elevated LFTs/pancreatitis likely due to combination of medications/dehydration from chemotherapy. no ercp at this time. -Decrease rate of IVF -CLD -continue iv morphine prn and stop oxycodone and try tramadol- family concern that confusional episode last night was from oxycodone. esophageal cancer - pt of dr enciso, - chemo last week, on 09/17 nstemi -trops .7-->.6-->.2 -TTE - EF 50-55% -Cardio consulted, continue asp, Plavix added as pt had recent PCI -Needs to follow up with Cardio in 2-4 weeks coronary artery disease -per pt s/p C and PCI [address] topete done at [facility] -pt stopped taking brilinta on his own accord shortly after the PCI as it was making him sob -on aspirin 81 mg daily. plavix started here syncope 2 weeks ago two weeks prior to admission, was at [facility] for this stay. depression -start on antidepressant last week with dr enciso -pt and unsure what medication this was. 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 -[facility] dr [facility] [place]: Hope to advance diet tomorrow VTE Prophylaxis - Medical Clopidogrel 75 mg, Oral, Tab, Daily, Routine, Start 09/24/20 10:10:00 EDT, 09/24/20 10:10:00 EDT (SERENA VANG) Enoxaparin 40 mg, SubCutaneous, Inj, Daily, Routine, Start 09/23/20 9:00:00 EDT, 09/22/20 17:45:00 EDT (CRISTINA LUNDBERG) Medications aspirin, 81 mg= 1 Tab, Oral, Daily clopidogrel, 75 mg= 1 Tab, Oral, Daily Colace, 100 [...] 1 mg= 1 Tab, Oral, Q8H, PRN LORazepam, 1 mg= 1 Tab, Oral, At Bedtime melatonin, 3 mg= 1 Tab, Oral, At Bedtime, PRN morphine, 2 mg= 1 mL, IV Push, Q2H, PRN multivitamin, 1 Tab, Oral, Daily Normal Saline 1,000 mL, 1000 mL, IntraVENous PACLitaxel + Sodium Chloride 0.9% intravenous solution 500 mL Pepcid, 20 mg= 1 Tab, Oral, Daily Pepcid + Sodium Chloride 0.9% intravenous solution 50 mL senna, 8.6 mg= 1 Tab, Oral, BID sodium chloride 0.9% injectable solution, 10 mL, IV Push, Q8H Sodium Chloride 0.9% intravenous solution, 250 mL, IntraVENous, 1-Time traMADol, 50 mg= 1 Tab, Oral, Q6H, PRN trastuzumab Tylenol, 650 mg= 2 Tab, Oral, Q4H, PRN Zofran, 4 mg= 2 mL, IV Push, Q4H, PRN Zosyn + Sodium Chloride 0.9% intravenous solution 100 mL Lab Results Test Name Test Result Date/Time Sodium Level 140 mmol/L 09/25/2020 05:50 EDT Potassium Level 3.7 mmol/L 09/25/2020 05:50 EDT Chloride Level 109 mmol/L 09/25/2020 05:50 EDT Carbon Dioxide Level 25 mmol/L 09/25/2020 05:50 EDT Anion Gap 10 09/25/2020 05:50 EDT Glucose Level 59 mg/dL (Low) 09/25/2020 05:50 EDT Blood Urea Nitrogen 12 mg/dL 09/25/2020 05:50 EDT Creatinine Level 0.90 mg/dL 09/25/2020 05:50 EDT eGFR >60 mL/min/1.73m2 09/25/2020 05:50 EDT eGFR NonAfrican >60 mL/min/1.73m2 09/25/2020 05:50 EDT Bun/Creatinine 13.3 09/25/2020 05:50 EDT Calcium Level 7.9 mg/dL (Low) 09/25/2020 05:50 EDT Protein Total 5.0 Gram/dL (Low) 09/25/2020 05:50 EDT Albumin Level 2.0 Gram/dL (Low) 09/25/2020 05:50 EDT Globulin 3.0 Gram/dL 09/25/2020 05:50 EDT A/G Ratio 0.7 (Low) 09/25/2020 05:50 EDT Bilirubin Total 1.1 mg/dL 09/25/2020 05:50 EDT Alk Phos 186 Units/Liter (High) 09/25/2020 05:50 EDT AST 38 Units/Liter (High) 09/25/2020 05:50 EDT ALT 69 Units/Liter (High) 09/25/2020 05:50 EDT Lipase Level 632 Units/Liter (High) 09/25/2020 05:50 EDT WBC 4.6 K/uL 09/25/2020 05:50 EDT RBC 2.58 Million/uL (Low) 09/25/2020 05:50 EDT Hgb 7.9 g/dL (Low) 09/25/2020 05:50 EDT Hct 24.8 % (Low) 09/25/2020 05:50 EDT MCV 96.1 fL (High) 09/25/2020 05:50 EDT MCH 30.6 pg 09/25/2020 05:50 EDT MCHC 31.9 Gram/dL (Low) 09/25/2020 05:50 EDT Platelet Count 109 K/uL (Low) 09/25/2020 05:50 EDT MPV 9.6 fL 09/25/2020 05:50 EDT RDW 14.9 % 09/25/2020 05:50 EDT Neutrophil Percent Man 90 % (High) 09/25/2020 05:50 EDT Band Percent Man 1 % (Low) 09/25/2020 05:50 EDT ANC # 4 K/uL 09/25/2020 05:50 EDT Lymph Percent Man 2 % (Low) 09/25/2020 05:50 EDT ALYC # 0 K/uL 09/25/2020 05:50 EDT Sargent Percent Man 6 % (High) 09/25/2020 05:50 EDT Eos Percent Man 1 % 09/25/2020 05:50 EDT RBC Morphology Abnormal 09/25/2020 05:50 EDT Ovalocytes 1+ (Abnormal) 09/25/2020 05:[address] Estimate Decreased (Abnormal) 09/25/2020 05:50 EDT Slide Review Add Diff 09/25/2020 05:50 EDT Procalcitonin 8.54 ng/mL (High) 09/25/2020 05:50 EDT Electronically signed by Nidia, Malina Conversion Field Administrative Assistant Cerner at 06/29/2022 2:31 PM CDT documented in this encounter Plan of Treatment Upcoming Encounters Date Type Department Care Team (Late st Contact Info) Description 11/24/2024 2:00 PM EDT Office Visit [facility] [facility] - [address] [place] [address] Jalen Enciso MD [address] [facility] [address] [place] [address] documented as of this encounter Visit Diagnoses Not on filedocumented in this encounter Care Teams Printed Circuit Boards Contact Printer Relationship Specialty Start Date End Date Kaylene Brooke MD [address] [place] [address] PCP - General General Internal Medicine 01/27/22 Farooq Marcus MD [address] [place] [place] [address] PCP - General Family Medicine 02/27/22 documented as of this encounter
--- OUTSIDE RECORDS SUMMARY | 2024-11-21 21:25 | XMS_ITS | Encounter Summary ---
Author Organization [employer] ([place], [place], [place], [place]) Address [address] [place] [address] Care Team Providers Care Latcher Name Role Phone Kaylene Brooke MD Primary Care Provider [phone] Farooq Marcus MD Primary Care Provider [phone] Encounter Details Date Type Department Care Team (Late st Contact Info) Description 10/12/2020 Transcribed Document [facility] [place] Family Medicine [address] [place] [address] ProviderRayray MD [address] [place], [place] [address] Social History Tobacco Use Types Packs/Day Years Used Date Smoking Tobacco: Never Assessed Sex and Gender Information Value Date Recorded Sex Assigned at Not on file Legal Sex Male 5:14 PM CDT Gender Identity Not on file Sexual Orientation Not on file documented as of this encounter Miscellaneous Notes * Cerner Conversion Note - Rayray ProviderMD - 10/12/2020 8:09 AM CDT [facility] Endo PACU Summary Primary Physician: NATE KINNEY MD Finalized Date/Time: 10/12/20 08:36:30 Pt. Name: RANCHO DEL ANGEL Jesse Leal/Sex: 1935 Male Med Rec #: [id number] Physician: PARKER RAVI MD-INT Financial #: [id number] Pt. Type: I Room/Bed: [facility]/ Admit/Disch: 10/10/20 10:58:00 - Institution: [facility] Endo PACU Case Times Entry 1 In PACU I 10/12/20 08:18:00 Ready for PACU 10/12/20 08:36:00 Discharge Discharge from PACU 10/12/20 08:36:00 I Last Modified By: Mari Holly, Rn 10/12/20 08:36:29 [facility] Endo PACU Case Times Audit 10/12/20 08:36:29 Loop Tender: [id number] Modifier: [id number] <+> 1 Ready for PACU Discharge <+> 1 Discharge from PACU I Finalized By: Mari Holly, Rn Document Signatures Signed By: Mari Holly, Marty 10/12/20 08:36 Electronically signed by Nidia [facility] Conversion Fiscal Clerk Cerner at 06/29/2022 2:25 PM CDT documented in this encounter Plan of Treatment Upcoming Encounters Date Type Department Care Team (Late st Contact Info) Description 11/24/2024 2:00 PM EDT Office Visit [place] [facility] [facility] [address] [facility] [address] [place] [address] Jalen Enciso MD [address] [place] [address] documented as of this encounter Visit Diagnoses Not on filedocumented in this encounter Care Teams Latcher Relationship Specialty Start Date End Date Kaylene Brooke MD [address] [place] [address] PCP - General General Internal Medicine 01/27/22 Farooq Marcus MD [address] [place] [address] PCP - General Family Medicine 02/27/22 documented as of this encounter
--- OUTSIDE RECORDS SUMMARY | 2024-11-21 21:25 | XMS_ITS | Encounter Summary ---
Author Organization [employer] ([place], [place], [place], [place]) Address [address] [place] [address] Care Team Providers Care Window Shade Cutter Name Role Phone Kaylene Brooke MD Primary Care Provider [phone] Farooq Marcus MD Primary Care Provider [phone] Encounter Details Date Type Department Care Team (Late st Contact Info) Description 10/10/2020 Transcribed Document [facility] [place] [facility] [place] [address] ProviderRayray MD [address] [place], [place] [address] Social History Tobacco Use Types Packs/Day Years Used Date Smoking Tobacco: Never Assessed Sex and Gender Information Value Date Recorded Sex Assigned at Not on file Legal Sex Male 5:14 PM CDT Gender Identity Not on file Sexual Orientation Not on file documented as of this encounter Miscellaneous Notes * Cerner Conversion Note - Historical ProviderMD - 10/10/2020 5:00 PM CDT Chart Check - Review Order Profile Entered On: 10/10/2020 17:58 EDT Performed On: 10/10/2020 17:00 EDT by Zaida Cortez RN Chart Check Powerplans Initiated/Discontinued as Appropriate : Yes All Active Orders Reviewed : Yes Zaida Cortez RN - 10/10/2020 17:58 EDT Electronically signed by Nidia [facility] Conversion Wallpaper Consultant Cerner at 06/29/2022 2:42 PM CDT documented in this encounter Plan of Treatment Upcoming Encounters Date Type Department Care Team (Late st Contact Info) Description 11/24/2024 2:00 PM EDT Office Visit [facility] - [address] [place] [address] Jalen Enciso MD [address] [place] [address] documented as of this encounter Visit Diagnoses Not on filedocumented in this encounter Care Teams Window Shade Cutter Relationship Specialty Start Date End Date Kaylene Brooke MD [address] [place] [address] PCP - General General Internal Medicine 01/27/22 Farooq Marcus MD [address] [facility] [place] [address] PCP - General Family Medicine 02/27/22 documented as of this encounter
--- OUTSIDE RECORDS SUMMARY | 2024-11-21 21:25 | XMS_ITS | Encounter Summary ---
Author Organization [email or web address] ([place], [place], [place], [place]) Address [address] [place] [address] Care Team Providers Care Straightening Machine Operator Name Role Phone Kaylene Brooke MD Primary Care Provider [phone] Farooq Marcus MD Primary Care Provider [phone] Encounter Details Date Type Department Care Team (Late st Contact Info) Description 10/11/2020 Transcribed Document [facility] [place] [facility] [place] [address] ProviderRayray MD [address] [place], [place] [address] Social History Tobacco Use Types Packs/Day Years Used Date Smoking Tobacco: Never Assessed Sex and Gender Information Value Date Recorded Sex Assigned at Not on file Legal Sex Male 5:14 PM CDT Gender Identity Not on file Sexual Orientation Not on file documented as of this encounter Miscellaneous Notes * Brittani Conversion Note - Rayray ProviderMD - 10/11/2020 2:00 AM CDT Manager Of Program Details Entered On: 10/11/2020 2:55 EDT Performed On: 10/11/2020 2:00 EDT by Elidia Marie Lpn Order Details Isolation Precautions Order Detail : Standard Precautions Order Detail : N/A IV Order Detail : 1 Oxygen Order Detail : 0 Nurse Collect Order Detail : 0 Lift/Transfer : Minimal Central Line Order Detail : No Room Service : Appropriate Arterial Line : No Patient Needs Meds Crushed/Liquid : No Elidia Marie Lpn - 10/11/2020 2:55 EDT documented in this encounter Plan of Treatment Upcoming Encounters Date Type Department Care Team (Late st Contact Info) Description 11/24/2024 2:00 PM EDT Office Visit [facility] - [address] [place] [address] Jalen Enciso MD [address] [place] [address] documented as of this encounter Visit Diagnoses Not on filedocumented in this encounter Care Teams Straightening Machine Operator Relationship Specialty Start Date End Date MendyKaylene dunn MD [address] [place] [address] PCP - General General Internal Medicine 01/27/22 Farooq Marcus MD [address] [place] [address] PCP - General Family Medicine 02/27/22 documented as of this encounter
--- OUTSIDE RECORDS SUMMARY | 2024-11-21 21:25 | XMS_ITS | Encounter Summary ---
Author Organization [employer] ([place], [place], [place], [place]) Address [address] [place] [address] Care Team Providers Care Line Installer Name Role Phone Kaylene Brooke MD Primary Care Provider [phone] Farooq Marcus MD Primary Care Provider [phone] Encounter Details Date Type Department Care Team (Late st Contact Info) Description 09/23/2020 Transcribed Document [facility] [place] [address] [place] [address] ProviderRayray MD [address] [place] [address] Social History Tobacco Use Types Packs/Day Years Used Date Smoking Tobacco: Never Assessed Sex and Gender Information Value Date Recorded Sex Assigned at Not on file Legal Sex Male 5:14 PM CDT Gender Identity Not on file Sexual Orientation Not on file documented as of this encounter Miscellaneous Notes * Cerner Conversion Note - Rayray ProviderMD - 09/23/2020 1:26 PM CDT Initial Discharge Planning Entered On: 09/23/2020 13:28 EDT Performed On: 09/23/2020 13:26 EDT by KATHRIN CODY Medical Research Scientist Initial Assessment I Previously Documented Living Environment : No qualifying data available. Living Situation : Home Patient Lives With : Spouse Is the Patient a Caregiver at Home? : No Emergency Contact #1 : JAMIE Emergency Contact #1 Phone Number : [phone] Emergency Contact #1 Relationship : SPOUSE Emergency Contact #2 : ADIEL Emergency Contact #2 Phone Number : [phone] Emergency Contact #2 Relationship : SON Enter Doctors Name : Adiel Michelle Does Patient have PCP Listed? : Yes Medical Durable Power of City Supervisor Name : No Legal Guardian : No KATHRIN CODY Social Worker - 09/23/2020 13:26 EDT Initial Assessment II Sensory and Motor Deficits : Weakness Current Home Treatments and Equipment : None KATHRIN CODY Social Worker - 09/23/2020 13:26 EDT Discharge Needs I Anticipated Discharge Date : 09/27/2020 EDT Anticipated Discharge To, CM : Home with family care, Home with home health Current Home Treatment/Equipment : Current Home Treatment/Equipment No qualifying data available. Post Acute/Home Treatments : Walker Documentation Status Complete : Yes KATHRIN CODY Social Worker - 09/23/2020 13:29 EDT Discharge Needs II Professional Skilled Services : Professional Skilled Services No qualifying data available. Services and Community Resources : Home Health Needs Assistance with Transportation : No KATHRIN CODY Social Worker - 09/23/2020 13:29 EDT Narrative Note Narrative Note : Patient is a 84yo male who prior to admission resided with spouse, in [facility]. Admitted via ED with sepsis/pancreatits/NSTEMI: oncology/GI and cardiology consulted. Currently on 2 liters O2, clear liquid diet, Nvdxfl=9816, bilirubin=1.9, MML=509, SYM=359, Lactic=2.8, Trop=0.272, HH=8.2/26.3, CT Abd/pelvis=Small pleural effusions with bibasilar consolidation, similar to prior exam; PT/OT, per GI plan to treat medically - no intervention at this point, cardiology watching troponin, eval ECHO. DCP: patient states he plans on going home with spouse, who will transport, therapy recommends home health and rolling walker at discharge and patient agrees to this if MD feels appropriate. CM will continue to follow. KATHRIN CODY Social Worker - 09/23/2020 13:32 EDT documented in this encounter Plan of Treatment Upcoming Encounters Date Type Department Care Team (Late st Contact Info) Description 11/24/2024 2:00 PM EDT Office Visit [facility] [place] [address] [place] [address] Jalen Enciso MD [address] [facility] [address] [place] [address] documented as of this encounter Visit Diagnoses Not on filedocumented in this encounter Care Teams Line Installer Relationship Specialty Start Date End Date Kaylene Brooke MD [address] [place] [address] PCP - General General Internal Medicine 01/27/22 Farooq Marcus MD [address] [place] [address] PCP - General Family Medicine 02/27/22 documented as of this encounter
--- OUTSIDE RECORDS SUMMARY | 2024-11-21 21:25 | XMS_ITS | Encounter Summary ---
Author Organization [employer] ([place], [place], [place], [place]) Address [address] [place] [address] Care Team Providers Care Vessel Scrapper Helper Name Role Phone Kaylene Brooke MD Primary Care Provider [phone] Farooq Marcus MD Primary Care Provider [phone] Encounter Details Date Type Department Care Team (Late st Contact Info) Description 01/26/2021 Transcribed Document [facility] [place] [facility] [place] [address] ProviderRayray MD [address] [place], [place] [address] Social History Tobacco Use Types Packs/Day Years Used Date Smoking Tobacco: Never Assessed Sex and Gender Information Value Date Recorded Sex Assigned at Not on file Legal Sex Male 5:14 PM CDT Gender Identity Not on file Sexual Orientation Not on file documented as of this encounter Miscellaneous Notes * Cerner Conversion Note - Historical MD Jaswinder - 01/26/2021 11:09 AM FENCE INSTALLER HELPER Patient: DOYLE DEL ANGEL Age: 85 years Sex: Male : 1935 Associated Diagnoses: None Author: Wayne Bui MD-RAD Pre-OP/Procedure Diagnosis: _Port Removal Indication: Need for iv treatment Procedure Performed: Power Port removal Procedural MD: MELLY Traffic Worker: None Sedation: IV Conscious Sedation Findings: Successful Power Port removal Complications: None EBL: Minimal Specimen(s) Removed: None Full report to follow. documented in this encounter Plan of Treatment Upcoming Encounters Date Type Department Care Team (Late st Contact Info) Description 11/24/2024 2:00 PM EDT Office Visit [facility] - [place] [address] [place] [address] Jalen Enciso MD [address] [place] [place] [address] [place] [address] documented as of this encounter Visit Diagnoses Not on filedocumented in this encounter Care Teams Vessel Scrapper Helper Relationship Specialty Start Date End Date Kaylene Brooke MD [address] [place] [address] PCP - General General Internal Medicine 01/27/22 Farooq Marcus MD [address] [place] [address] PCP - General Family Medicine 02/27/22 documented as of this encounter
--- OUTSIDE RECORDS SUMMARY | 2024-11-21 21:25 | XMS_ITS | Encounter Summary ---
Author Organization [employer] ([place], [place], [place], [place]) Address [address] [place] [address] Care Team Providers Care Cuffing Machine Operator Name Role Phone Kaylene Brooke MD Primary Care Provider [phone] Farooq Marcus MD Primary Care Provider [phone] Encounter Details Date Type Department Care Team (Late st Contact Info) Description 10/12/2020 Transcribed Document [facility] [place] [facility] [address] ProviderRayray MD [address] [place], [place] [address] Social History Tobacco Use Types Packs/Day Years Used Date Smoking Tobacco: Never Assessed Sex and Gender Information Value Date Recorded Sex Assigned at Not on file Legal Sex Male 5:14 PM CDT Gender Identity Not on file Sexual Orientation Not on file documented as of this encounter Miscellaneous Notes * Cerner Conversion Note - Historical ProviderMD - 10/12/2020 5:00 PM CDT Chart Check - Review Order Profile Entered On: 10/12/2020 17:05 EDT Performed On: 10/12/2020 17:00 EDT by Tegan Benz RN Chart Check Powerplans Initiated/Discontinued as Appropriate : Yes All Active Orders Reviewed : Yes Tegan Benz RN - 10/12/2020 17:05 EDT Electronically signed by Nidia [facility] Conversion Document Control Specialist Cerner at 06/29/2022 2:20 PM CDT documented in this encounter Plan of Treatment Upcoming Encounters Date Type Department Care Team (Late st Contact Info) Description 11/24/2024 2:00 PM EDT Office Visit [facility] - [place] [address] [place] [address] Jalen Enciso MD [address] [place] [address] documented as of this encounter Visit Diagnoses Not on filedocumented in this encounter Care Teams Cuffing Machine Operator Relationship Specialty Start Date End Date Kaylene Brooke MD [address] [place] [address] PCP - General General Internal Medicine 01/27/22 Farooq Marcus MD [address] [facility] [facility] [place] [address] PCP - General Family Medicine 02/27/22 documented as of this encounter
--- OUTSIDE RECORDS SUMMARY | 2024-11-21 21:25 | XMS_ITS | Encounter Summary ---
Author Organization [employer] ([place], [place], [place], [place]) Address [address] [place] [address] Care Team Providers Care Stave Block Roller Name Role Phone Kaylene Brooke MD Primary Care Provider [phone] Farooq Marcus MD Primary Care Provider [phone] Encounter Details Date Type Department Care Team (Late st Contact Info) Description 10/11/2020 Transcribed Document [facility] [place] [address] [place] [address] ProviderRayray MD [address] [place], [place] [address] Social History Tobacco Use Types Packs/Day Years Used Date Smoking Tobacco: Never Assessed Sex and Gender Information Value Date Recorded Sex Assigned at Not on file Legal Sex Male 5:14 PM CDT Gender Identity Not on file Sexual Orientation Not on file documented as of this encounter Miscellaneous Notes * Cerner Conversion Note - Historical ProviderMD - 10/11/2020 9:36 AM CDT Patient: DOYLE DEL ANGEL Age: 84 Years Sex: Male : 1935 Subjective 10/11/2020 Examined patient this morning. Seems to be resting comfortably with at bedside. All questions were answered. Dr. Enciso saw patient this morning and recommended GI consultation. Vital Signs T: 36.5 ??C TMIN: 36.4 ??C TMAX: 36.8 ??C HR: 69(Monitored) RR: 16 BP: 130/70 SpO2: 94% HT: 182.88 cm WT: 67.47 kg BMI: 20.17 Oxygen Settings (Last) Oxygen Therapy Mode: Room air (10/11/20 08:00:00) Intake & Output Totals Last 24 Hours (7a-7a) Input Total: 1101.9167 mL Output Total: 1950 mL Balance: -848.0833 mL Physical Exam General: Sleeping but arousable. [...] pink, no rash Psychiatric: cooperative, normal mood/affect Assessment/Plan Intractable nausea/vomiting causes include gastritis, bactrim, chemotherapy/cancer; stop ASA and bactrim for now UA normal in ER. Add carafate to pantoprazole. Zofran not helping- try low dose phenergan IV, liquid diet -pt disclosed today bactrim has been hurting stomach and he has bee having a lot of heartburn lately; continue carafate, I dont think he needs more bactrim so d/c; advance diet 10/11, resume 81mg ASA Mild dehydration secondary to above, IVF -d/c IVF tonight Esophageal Cancer oncologist Dr Enciso, will consult as needed -pt reports having an appt with Dr Enciso in two days, will consult him to ensure treatment is on track Weakness/debility PT/OT eval -per nurse he requires a lot of assistance, he and are agreeable to discuss going to inpatient rehab will consult CM to start process Depression increase effexor dose from 75mg to 150mg Malnourished secondary to N&V, consult art consultant - reports loss of leg muscles, he stopped drinking protein shakes because of heartburn dispo: will likely d/c to SNF for rehab, GI consultation for continued nausea. Plan for EGD tomorrow. VTE Prophylaxis - Medical Clopidogrel 75 mg, [...] # 0.50 x10(3)/uL (Low) 10/11/2020 05:45 EDT Butts % 11.7 % (High) 10/11/2020 05:45 EDT Butts # 0.64 K/uL 10/11/2020 05:45 EDT Eos % 4.2 % 10/11/2020 05:45 EDT Eos # 0.23 x10(3)/uL 10/11/2020 05:45 EDT Baso % 0.9 % 10/11/2020 05:45 EDT Baso # 0.05 x10(3)/uL 10/11/2020 05:45 EDT Slide Review No 10/11/2020 05:45 EDT IG# 0.04 x10(3)/uL 10/11/2020 05:45 EDT IG% 0.70 % (High) 10/11/2020 05:45 EDT Electronically signed by [facility] Conversion Risk Control Representative Cerner at 06/29/2022 2:28 PM CDT documented in this encounter Plan of Treatment Upcoming Encounters Date Type Department Care Team (Late st Contact Info) Description 11/24/2024 2:00 PM EDT Office Visit [facility] - [place] [address] [place] [address] Jalen Enciso MD [address] [place] [address] documented as of this encounter Visit Diagnoses Not on filedocumented in this encounter Care Teams Stave Block Roller Relationship Specialty Start Date End Date MendyKaylene MD [address] [place] [address] PCP - General General Internal Medicine 01/27/22 Farooq Marcus MD [address] [place] [address] PCP - General Family Medicine 02/27/22 documented as of this encounter
--- OUTSIDE RECORDS SUMMARY | 2024-11-21 21:25 | XMS_ITS | Encounter Summary ---
Author Organization [employer] ([place], [place], [place], [place]) Address [address] [place] [address] Care Team Providers Care Wastewater Plant Operator Name Role Phone Kaylene Brooke MD Primary Care Provider [phone] Farooq Marcus MD Primary Care Provider [phone] Encounter Details Date Type Department Care Team (Late st Contact Info) Description 09/25/2020 Transcribed Document [facility] [place] [address] [place] [address] ProviderRayray MD [address] [place], [place] [address] Social History Tobacco Use Types Packs/Day Years Used Date Smoking Tobacco: Never Assessed Sex and Gender Information Value Date Recorded Sex Assigned at Not on file Legal Sex Male 5:14 PM CDT Gender Identity Not on file Sexual Orientation Not on file documented as of this encounter Miscellaneous Notes * Cerner Conversion Note - Rayray San MD - 09/25/2020 11:47 AM CDT Patient: DOYLE DEL ANGEL Age: 84 years Sex: Male : 1935 Associated Diagnoses: None Author: JALEN ENCISO MD-ONC Attachments: None Subjective Chief complaint Chief complaint Feels better with less pain and nausea. Health Status Allergies Allergies (1) Active Reaction No Known Allergies None Documented Current medications Medications (20) Active Scheduled: (10) #NaCl 0.9% *FLUSH* inj 10 mL 10 mL, IV Push, Q8H aspirin 81 mg chew tab 81 mg 1 Tab, Oral, Daily clopidogrel 75 mg tab 75 mg 1 Tab, Oral, Daily docusate sodium 100 mg cap 100 mg 1 Cap, Oral, BID enoxaparin 40 mg/0.4 mL inj 40 mg 0.4 mL, SubCutaneous, Daily famotidine 20 mg tab 20 mg 1 Tab, Oral, Daily LORazepam 1 mg tab 1 mg 1 Tab, Oral, At Bedtime multiple vitamin (Thera) tab 1 Tab, Oral, Daily piperacillin-tazobactam + NaCl 0.9% 100 mL 3.375 Gram, IV Piggyback, Q6HInt senna 8.6 mg tab 8.6 mg 1 Tab, Oral, BID Continuous: (1) NaCl 0.9% 1,000 mL 1,000 [...] 4 mg 2 mL, IV Push, Q4H traMADol 50 mg tab 50 mg 1 Tab, Oral, Q6H Objective General Alert and oriented No acute distress Eye Pupils are equal, round and reactive to light HENT Normocephalic Neck Supple Respiratory Lungs are clear to auscultation Respirations are non-labored Cardiovascular Normal rate Regular rhythm Gastrointestinal Soft Non-tender Impression and Plan Assessment and Plan Diagnosis Pancreatits. GE junction cancer-remission Course Improving Orders No new recomendations, No chemotherapy planned at this time. Electronically signed by Malina Jacob Conversion Biological Sciences Instructor Cerner at 06/29/2022 2:19 PM CDT documented in this encounter Plan of Treatment Upcoming Encounters Date Type Department Care Team (Late st Contact Info) Description 11/24/2024 2:00 PM EDT Office Visit [facility] - [place] [address] [place] [address] Jalen Enciso MD [address] [facility] [address] [place] [address] documented as of this encounter Visit Diagnoses Not on filedocumented in this encounter Care Teams Wastewater Plant Operator Relationship Specialty Start Date End Date Kaylene Brooke MD [address] [place] [address] PCP - General General Internal Medicine 01/27/22 Farooq Marcus MD [address] [place] [address] PCP - General Family Medicine 02/27/22 documented as of this encounter
--- OUTSIDE RECORDS SUMMARY | 2024-11-21 21:25 | XMS_ITS | Encounter Summary ---
Author Organization [employer] ([place], [place], [place], [place]) Address [address] [place] [address] Care Team Providers Care Acrobatic Rigger Name Role Phone Kaylene Brooke MD Primary Care Provider [phone] Farooq Marcus MD Primary Care Provider [phone] Encounter Details Date Type Department Care Team (Late st Contact Info) Description 01/26/2021 Transcribed Document [facility] [place] [address] [place] [address] ProviderRayray MD [address] [place], [place] [address] Social History Tobacco Use Types Packs/Day Years Used Date Smoking Tobacco: Never Assessed Sex and Gender Information Value Date Recorded Sex Assigned at Not on file Legal Sex Male 5:14 PM CDT Gender Identity Not on file Sexual Orientation Not on file documented as of this encounter Miscellaneous Notes * Cerner Conversion Note - Rayray ProviderMD - 01/26/2021 12:22 PM SALES PROFESSIONAL Nursing Discharge Summary Entered On: 01/26/2021 12:22 EST Performed On: 01/26/2021 12:22 EST by LATOYA MANDUJANO RN Discharge Documentation Discharge Date/Time : 01/26/2021 12:45 EST Transporter Signature : LATOYA MANDUJANO RN TOWLES, TAMMY L, RN - 01/26/2021 12:32 EST Patient Disposition, General : Discharge Discharge To : Home with ambulatory/outpatient follow-up Mode Of Departure, General Discharge : Private vehicle Accompanied By, Discharge : Spouse IV Discontinued : Yes Personal Belongings With Patient : Yes Discharge Instructions Reviewed With, Opportunity For Questions Given : Patient, Spouse Patient Education Completed : Yes Teaching Method : Explanation, Printed materials Teaching Evaluation : Returns demonstration, Verbalizes understanding LATOYA MANDUJANO RN - 01/26/2021 12:22 EST Electronically signed by [facility] Conversion Operations General Agent Cerner at 06/29/2022 2:28 PM CDT documented in this encounter Plan of Treatment Upcoming Encounters Date Type Department Care Team (Late st Contact Info) Description 11/24/2024 2:00 PM EDT Office Visit [facility] - [place] [address] [place] [address] Jalen Enciso MD [address] [facility] [address] [place] [address] documented as of this encounter Visit Diagnoses Not on filedocumented in this encounter Care Teams Acrobatic Rigger Relationship Specialty Start Date End Date Kaylene Brooke MD [address] [place] [address] PCP - General General Internal Medicine 01/27/22 Farooq Marcus MD [facility] [place] [address] PCP - General Family Medicine 02/27/22 documented as of this encounter
--- OUTSIDE RECORDS SUMMARY | 2024-11-21 21:25 | XMS_ITS | Encounter Summary ---
Author Organization [employer] ([place], [place], [place], [place]) Address [address] [place] [address] Care Team Providers Care Linen Aide Name Role Phone Kaylene Brooke MD Primary Care Provider [phone] Farooq Marcus MD Primary Care Provider [phone] Encounter Details Date Type Department Care Team (Late st Contact Info) Description 09/24/2020 Transcribed Document [facility] Radiology [address] [place] [id number] Janell Marx MD [address] [place] [address] Social History Tobacco Use Types Packs/Day Years Used Date Smoking Tobacco: Never Assessed Sex and Gender Information Value Date Recorded Sex Assigned at Not on file Legal Sex Male 5:14 PM CDT Gender Identity Not on file Sexual Orientation Not on file documented as of this encounter Miscellaneous Notes * Cerner Conversion Note - Janell Marx MD - 09/24/2020 10:35 AM EDT Patient: DOYLE DEL ANGEL Age: 84 years Sex: Male : 1935 Associated Diagnoses: None Author: JANELL MARX MD-CAR BASIC PCP: Subjective NAD patient seen and examined at the bedside awake alert oriented x3 not dyspneic not in pain no events overnight. His was with him in the room. 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 I discussed with him the importance of compliance with the medication especially the double antiplatelet medication. Because the patient was noncompliant with his Brilinta. We will restart him on Plavix. Patient agreed to the management plan will continue optimizing medical treatment and monitoring the patient. Health Status Allergies: Allergic Reactions (Selected) No Known Allergies, Allergies (1) Active Reaction No Known Allergies None Documented Current medications: (Selected) Inpatient Medications Ordered Colace: [...] mL: 1,250 mg, 250 mL/Hr, IV Piggyback, [id number] Documented Medications Documented Brilinta (ticagrelor) 90 mg oral tablet: 60 Each, TAKE ONE TABLET BY MOUTH TWICE DAILY, 0 Refill(s) LORazepam: 1 mg, Oral, TID, 0 Refill(s) aspirin: 81 mg, Oral, Daily, 0 Refill(s) multivitamin: 1 Tab, Oral, Daily, 0 Refill(s), Home Medications (4) Active aspirin 81 mg, Oral, Daily Brilinta (ticagrelor) 90 mg oral tablet LORazepam 1 mg, Oral, TID multivitamin 1 Tab, Oral, Daily , Medications (17) Active Scheduled: (7) aspirin 81 [...] 0.9% 250 mL 1,250 mg, IV Piggyback, [id number] Continuous: (1) NaCl 0.9% 1,000 mL 1,000 [...] tab 10 mg 2 Tab, Oral, Q4H Problem list: All Problems Anxiety disorder / SNOMED CT 780080238 / Confirmed At risk for sleep apnea / IMO 49853195 / Confirmed Chest pain with high risk for cardiac etiology / SNOMED CT 06608411 / Confirmed Hyperlipidemia / SNOMED CT 99626555 / Confirmed Esophagus cancer / SNOMED CT 693044652 / Confirmed Myocardial infarction / SNOMED CT 84816662 / Confirmed Leg neuralgia / SNOMED CT 28700458 / Confirmed, Active Problems (7) Anxiety disorder At risk for sleep apnea Chest pain with high risk for cardiac etiology Esophagus cancer Hyperlipidemia Leg neuralgia Myocardial infarction Objective Intake and Output 24 hour intake, 24 hour output VS/Measurements Vitals Signs (last 24 hrs) Last Charted Minimum Maximum Temp 98 (SEP 24 09:06) 97.9 (SEP 23 11:00) 98.3 (SEP 23:30) Mon HR 69 (SEP 24 09:06) 68 (SEP 23 11:00) 75 (SEP 23:30) Resp Rate 18 (SEP 24 05:56) 18 (SEP 23 22:00) 18 (SEP 23 22:00) SBP 121 (SEP 24 09:06) 97 (SEP 23 22:49) 125 (SEP 24 05:56) DBP 62 (SEP 24 09:06) L 53 (SEP 23 22:49) 62 (SEP 24 09:06) MAP 78 (SEP 24 09:06) 69 (SEP 23 22:49) 78 (SEP 24 09:06) SpO2 94 (SEP 24 03:06) L 92 (SEP 23:30) 98 (SEP 23 11:00) Results Review SEP 24:26 137 108 16 / 81 3.5 26 1.10 \ SEP 24 05: \ L 8.9 / 6.5 L 129 / L 28.9 \ Cardiac Markers (Current Encounter/Past 24 Hours) No Cardiac Marker Results Found (Past 24 Hours) Radiology Results (Last 48 hours) [id number] -- 09/22/2020 16:03 CR Chest 1 Vw [...] interpreted, and dictated by Sampson Laws MD Impression: Normal sized left ventricle. Normal left ventricular wall thickness. Visually estimated ejection fraction 50% +/- 5%. Abnormal strain pattern. Mildly reduced left ventriuclar systolic function. Indeterminate diastolic function. Abnormal left atrial volume index 40.07 ml/m2. No hemodynamically significant valvular heart disease. No masses or thrombi are seen. Optison ultrasound enhancing agent administered to enhance endocardial borders. Measurements Summary: LVEDd: 5.19 cm LVESd: 3.89 cm IVSEd: 0.89 cm AO Root:3.07 cm LVPWd: 0.89 cm Impression and Plan IMPRESSION: * Elevated troponin in the context of acute pancreatitis -trending down * ASCVD -recent PCI per pt at OSH * PPM * Esophageal CA PLAN; 09/24/2020 Add clopidogrel secondary to recent PCI Otherwise current medical therapy appropriate Follow-up with primary fire prevention engineer in 2 to 4 weeks 09/23/2020 Patient denies any chest pain. Troponin now trending down. We'll check an echocardiogram for ejection fraction. Will obtain records from. documented in this encounter Plan of Treatment Upcoming Encounters Date Type Department Care Team (Late st Contact Info) Description 11/24/2024 2:00 PM EDT Office Visit [facility] [place] [address] [facility] [address] [place] [address] Jalen Enciso MD [address] [place] [address] documented as of this encounter Visit Diagnoses Not on filedocumented in this encounter Care Teams Linen Aide Relationship Specialty Start Date End Date Kaylene Brooke MD [address] [place] [address] PCP - General General Internal Medicine 01/27/22 Farooq Marcus MD [address] [place] [address] PCP - General Family Medicine 02/27/22 documented as of this encounter
--- OUTSIDE RECORDS SUMMARY | 2024-11-21 21:25 | XMS_ITS | Encounter Summary ---
Author Organization [employer] ([place], [place], [place], [place]) Address [address] [place] [address] Care Team Providers Care Certified Real Estate Appraiser Name Role Phone Kaylene Brooke MD Primary Care Provider [phone] Farooq Marcus MD Primary Care Provider [phone] Encounter Details Date Type Department Care Team (Late st Contact Info) Description 10/11/2020 Transcribed Document [facility] [place] Family [place] [address] ProviderRayray MD [address] [place] [address] Social History Tobacco Use Types Packs/Day Years Used Date Smoking Tobacco: Never Assessed Sex and Gender Information Value Date Recorded Sex Assigned at Not on file Legal Sex Male 5:14 PM CDT Gender Identity Not on file Sexual Orientation Not on file documented as of this encounter Miscellaneous Notes * Cerner Conversion Note - Rayray San MD - 10/11/2020 6:52 PM CDT Patient: DOYLE DEL ANGEL Age: 84 Years Sex: Male : 1935 Attending Physician:Meseret Perez Referring Physician: Dede BLANTON Reason for Consult: palliative needs/GOC Goals of Care: ongoing Residence Prior to Admission: home with Family Contact Information/POA/HCS: Dirk Del Angel HCS on Code Status: FULL code Living Will: on chart Subjective sitting up in bed, eating lunch. denies pain, nausea, SOA and anxiety during visit. at bedside. no distress. Objective Vitals & Measurements T: 36.4 ??C TMIN: 36.4 ??C TMAX: 36.8 ??C HR: 76(Monitored) RR: 18 BP: 116/62 SpO2: 93% HT: 182.88 cm WT: 68.18 kg BMI: 20.4 Physical Exam GENERAL: chronically ill appearing HEENT: NC/AT, alopecia, temporal wasting, EOMI, sclera anicteric, O/P MMM NECK: supple, no JVD LUNGS: diminished bases, unlabored CV: S1 S2, no m/r/g ABDOMEN: +BS, ND and soft EXTREMITIES: +DP and radial pulses SKIN: warm, no mottling NEURO:awake, alert, oriented, follows commands, makes needs known and answering questions PSYCH: calm ESAS: 0-10 Scale Pain- denies Dyspnea-denies Nausea- denies Insomnia- Constipation- Anxiety- denies Agitation- Depression- + Fatigue- + Well-being- Appetite- Drowsy- Intake & Output Totals Last 24 Hours (7a-7a) Intake (17 Events) Continuous Infusions (801.6667 mL) Medications (60.25 mL) Oral Intake (240 mL) Output (5 Events) Urine Voided (Volume) (1950 mL) Input Total: 1101.9167 mL Output Total: 1950 mL Balance: -848.0833 mL LBM 10/07/2020 Assessment-Diagnosis 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 Anxiety - on Lorazepam, denies anxiety today Plan of Care Recommendations PC will continue to follow for needs/support. GI consulted, possible EGD. >50% of time spent in patient evaluation, [...] Encounter/Past 24 Hours) Creatinine Level 0.90 mg/dL 10/11/2020 06:13 A/G Ratio 0.7 LOW 10/10/2020 06:37 eGFR >60 mL/min/1.73m2 10/11/2020 06:13 Bun/Creatinine 7.8 LOW 10/11/2020 06:13 Globulin 3.5 Gram/dL 10/10/2020 06:37 Protein Total 5.9 Gram/dL LOW 10/10/2020 06:37 eGFR NonAfrican >60 mL/min/1.73m2 10/11/2020 06:13 Sodium Level 138 mmol/L 10/11/2020 06:13 Potassium Level 3.9 mmol/L 10/11/2020 06:13 Chloride Level 105 mmol/L 10/11/2020 06:13 Carbon Dioxide Level 30 mmol/L 10/11/2020 06:13 Anion Gap 7 LOW 10/11/2020 06:13 Alk Phos 152 Units/Liter NV 10/10/2020 06:37 ALT 24 Units/Liter 10/10/2020 06:37 AST 24 Units/Liter 10/10/2020 06:37 Blood Urea Nitrogen 7 mg/dL 10/11/2020 06:13 Glucose Level 85 mg/dL 10/11/2020 06:13 Albumin Level 2.4 Gram/dL LOW 10/10/2020 06:37 Bilirubin Total 1.4 mg/dL NV 10/10/2020 06:37 Calcium Level 8.8 mg/dL 10/11/2020 06:13 Magnesium Level 2.0 mg/dL 10/10/2020 06:19 Coagulation Results (Current Encounter/Past 24 Hours) No Coagulation Results Found (Past 24 Hours) Blood Gases (Current Encounter/Past 24 Hours) No Blood Gas Results Found (Past 24 Hours) Cardiac Markers (Current Encounter/Past 24 Hours) No Cardiac Marker Results Found (Past 24 Hours) Electrolytes(BMP) Results (Current Encounter/Past 24 Hours) Sodium Level 138 mmol/L 10/11/2020 06:13 Potassium Level 3.9 mmol/L 10/11/2020 06:13 Chloride Level 105 mmol/L 10/11/2020 06:13 Carbon Dioxide Level 30 mmol/L 10/11/2020 06:13 Anion Gap 7 LOW 10/11/2020 06:13 Blood Urea Nitrogen 7 mg/dL 10/11/2020 06:13 Glucose Level 85 mg/dL 10/11/2020 06:13 Calcium Level 8.8 mg/dL 10/11/2020 06:13 Creatinine Level 0.90 mg/dL 10/11/2020 06:13 Creatinine Clearance (Current Encounter/Past 24 Hours) Creatinine Level 0.90 mg/dL 10/11/2020 06:13 Bun/Creatinine 7.8 LOW 10/11/2020 06:13 Estimated Creatinine Clearance 61.03 mL/Min 10/11/2020 06:13 Diagnostic Results Radiology Results (Last 48 hours) [id number] -- 10/10/2020 10:58 CT Head WO W [...] interpreted, and dictated by Sampson Laws MD documented in this encounter Plan of Treatment Upcoming Encounters Date Type Department Care Team (Late st Contact Info) Description 11/24/2024 2:00 PM EDT Office Visit [facility] - [place] [address] [place] [address] Jalen Enciso MD [address] [place] [address] documented as of this encounter Visit Diagnoses Not on filedocumented in this encounter Care Teams Certified Real Estate Appraiser Relationship Specialty Start Date End Date Kaylene Brooke MD [address] [place] [address] PCP - General General Internal Medicine 01/27/22 Farooq Marcus MD [address] [place] [address] PCP - General Family Medicine 02/27/22 documented as of this encounter
--- OUTSIDE RECORDS SUMMARY | 2024-11-21 21:26 | XMS_ITS | Encounter Summary ---
Author Organization [employer] ([place], [place], [place], [place]) Address [address] [place] [address] Care Team Providers Care Blade Sharpener Name Role Phone Kaylene Brooke MD Primary Care Provider [phone] Farooq Marcus MD Primary Care Provider [phone] Encounter Details Date Type Department Care Team (Late st Contact Info) Description 09/08/2020 Transcribed Document [facility] [place] [address] [place] [address] ProviderRayray MD [address] [place] [address] Social History Tobacco Use Types Packs/Day Years Used Date Smoking Tobacco: Never Assessed Sex and Gender Information Value Date Recorded Sex Assigned at Not on file Legal Sex Male 5:14 PM CDT Gender Identity Not on file Sexual Orientation Not on file documented as of this encounter Miscellaneous Notes * Cerner Conversion Note - Historical ProviderMD - 09/08/2020 10:45 AM CDT Event Note Entered On: 09/08/2020 12:46 EDT Performed On: 09/08/2020 10:45 EDT by JUVE GILBERT, Rn-Clinical Coordinator I Event Note Description of Event : 1045: Received patient back from IR s/p port placement to right chest wall. Port is accessed and dressing over the access. 1200: Patient ambulated in hallway without difficulty. Patient stated that he did not have chemo till next week. 1224: Port flushed per protocol. Discharge instructions given to patient and . They verbalized understanding. 1240: Patient discharged home. JUVE GILBERT, Rn-Clinical Coordinator I - 09/08/2020 12:47 EDT documented in this encounter Plan of Treatment Upcoming Encounters Date Type Department Care Team (Late st Contact Info) Description 11/24/2024 2:00 PM EDT [facility] [address] [place] [address] Jalen Enciso MD [address] [place] [address] documented as of this encounter Visit Diagnoses Not on filedocumented in this encounter Care Teams Blade Sharpener Relationship Specialty Start Date End Date Kaylene Brooke MD [address] [place] [address] PCP - General General Internal Medicine 01/27/22 Farooq Marcus MD [address] [place] [address] PCP - General Family Medicine 02/27/22 documented as of this encounter
--- OUTSIDE RECORDS SUMMARY | 2024-11-21 21:26 | XMS_ITS | Encounter Summary ---
Author Organization [employer] ([place], [place], [place], [place]) Address [address] [place] [address] Care Team Providers Care Mixed Livestock Farmer Name Role Phone Kaylene Brooke MD Primary Care Provider [phone] Farooq Marcus MD Primary Care Provider [phone] Encounter Details Date Type Department Care Team (Late st Contact Info) Description 09/28/2020 Transcribed Document [facility] [place] [facility] [place] [address] ProviderRayray MD [address] [place], [place] [address] Social History Tobacco Use Types Packs/Day Years Used Date Smoking Tobacco: Never Assessed Sex and Gender Information Value Date Recorded Sex Assigned at Not on file Legal Sex Male 5:14 PM CDT Gender Identity Not on file Sexual Orientation Not on file documented as of this encounter Miscellaneous Notes * Cerner Conversion Note - Historical ProviderMD - 09/28/2020 5:00 PM CDT Chart Check - Review Order Profile Entered On: 09/28/2020 15:25 EDT Performed On: 09/28/2020 17:00 EDT by CASEY Romero, RN Chart Check Powerplans Initiated/Discontinued as Appropriate : Yes All Active Orders Reviewed : Yes CASEY Romero, RN - 09/28/2020 15:25 EDT Electronically signed by Nidia [facility] Conversion Scrum Coach Cerner at 06/29/2022 2:14 PM CDT documented in this encounter Plan of Treatment Upcoming Encounters Date Type Department Care Team (Late st Contact Info) Description 11/24/2024 2:00 PM EDT Office Visit [facility] - [place] [address] [place] [address] Jalen Enciso MD [address] [place] [address] documented as of this encounter Visit Diagnoses Not on filedocumented in this encounter Care Teams Mixed Livestock Farmer Relationship Specialty Start Date End Date Kaylene Brooke MD [address] [place] [address] PCP - General General Internal Medicine 01/27/22 Farooq Marcus MD [address] [place] [address] PCP - General Family Medicine 02/27/22 documented as of this encounter
--- OUTSIDE RECORDS SUMMARY | 2024-11-21 21:26 | XMS_ITS | Encounter Summary ---
Author Organization [employer] ([place], [place], [place], [place]) Address [address] [place] [address] Care Team Providers Care Air Analysis Engineering Technician Name Role Phone Kaylene Brooke MD Primary Care Provider [phone] Farooq Marcus MD Primary Care Provider [phone] Encounter Details Date Type Department Care Team (Late st Contact Info) Description 09/26/2020 Transcribed Document [facility] [place] [facility] [place] [address] ProviderRayray MD [address] [place], [place] [address] Social History Tobacco Use Types Packs/Day Years Used Date Smoking Tobacco: Never Assessed Sex and Gender Information Value Date Recorded Sex Assigned at Not on file Legal Sex Male 5:14 PM CDT Gender Identity Not on file Sexual Orientation Not on file documented as of this encounter Miscellaneous Notes * Cerner Conversion Note - Rayray ProviderMD - 09/26/2020 11:05 AM CDT Patient: DOYLE DEL ANGEL Age: 84 years Sex: Male : 1935 Associated Diagnoses: None Author: JALEN ENCISO MD-ONC Attachments: None Subjective Chief complaint Chief complaint Feeling better.No new issues. Health Status Allergies Allergies (1) Active Reaction No Known Allergies None Documented Current medications Medications (20) Active Scheduled: (9) #NaCl 0.9% *FLUSH* inj 10 mL 10 mL, IV Push, Q8H aspirin 81 mg chew tab 81 mg 1 Tab, Oral, Daily clopidogrel 75 mg tab 75 mg 1 Tab, Oral, Daily enoxaparin 40 mg/0.4 mL inj 40 mg 0.4 mL, SubCutaneous, Daily famotidine 20 mg tab 20 mg 1 Tab, Oral, Daily LORazepam 1 mg tab 1 mg 1 Tab, Oral, At Bedtime multiple vitamin (Thera) tab 1 Tab, Oral, Daily piperacillin-tazobactam + NaCl 0.9% 100 mL 3.375 Gram, IV Piggyback, Q6HInt senna 8.6 mg tab 8.6 mg 1 Tab, Oral, BID Continuous: (1) lactated ringers 1,000 mL 1,000 mL, IntraVENous, 75 mL/Hr PRN: (10) acetaminophen 325 mg tab 650 mg 2 Tab, Oral, Q4H albuterol-ipratropium inh 3 mL 3 mL, Nebulized Inhalation, Q6H bisacodyl EC 5 mg tab 5 mg 1 Tab, Oral, Daily docusate sodium 100 mg cap 100 mg 1 Cap, Oral, BID hydrALAZINE 20 mg/1 mL inj 10 mg [...] Plan Assessment and Plan Diagnosis Pancreatitis. GE jct cancer Course Improving Orders No new recoemndations, hopefully will continue to improve with time. documented in this encounter Plan of Treatment Upcoming Encounters Date Type Department Care Team (Late st Contact Info) Description 11/24/2024 2:00 PM EDT Office Visit [facility] - [place] [address] [place] [address] Jalen Enciso MD [address] [facility] [address] [place] [address] documented as of this encounter Visit Diagnoses Not on filedocumented in this encounter Care Teams Air Analysis Engineering Technician Relationship Specialty Start Date End Date Kaylene Brooke MD [address] [place] [address] PCP - General General Internal Medicine 01/27/22 Farooq Marcus MD [address] [address] PCP - General Family Medicine 02/27/22 documented as of this encounter
--- OUTSIDE RECORDS SUMMARY | 2024-11-21 21:26 | XMS_ITS | Encounter Summary ---
Author Organization [employer] ([place], [place], [place], [place]) Address [address] [place] [address] Care Team Providers Care Regional Rehabilitation Director Name Role Phone Kaylene Brooke MD Primary Care Provider [phone] Farooq Marcus MD Primary Care Provider [phone] Encounter Details Date Type Department Care Team (Late st Contact Info) Description 09/14/2020 Transcribed Document [facility] [place] Family Medicine [facility] [place] [address] ProviderRayray MD [address] [place], [place] [id number] Social History Tobacco Use Types Packs/Day Years Used Date Smoking Tobacco: Never Assessed Sex and Gender Information Value Date Recorded Sex Assigned at Not on file Legal Sex Male 5:14 PM CDT Gender Identity Not on file Sexual Orientation Not on file documented as of this encounter Miscellaneous Notes * Cerner Conversion Note - Rayray ProviderMD - 09/14/2020 1:56 PM CDT HISTORY AND PHYSICAL UPDATE Update Required: The appropriate section below MUST be completed prior to authentication. UPDATE: The History and Physical performed by on has been reviewed, patient was examined, and no change has occurred since the History and Physical was completed. OR UPDATE: The History and Physical performed by on has been reviewed and patient examined. The only significant change(s) in the patient's history or condition since the History and Physical was completed are indicated below: Significant Changes: Electronically signed by Interface, [facility] Conversion Supervisor Water Softener Service Cerner at 06/29/2022 2:15 PM CDT documented in this encounter Plan of Treatment Upcoming Encounters Date Type Department Care Team (Late st Contact Info) Description 11/24/2024 2:00 PM EDT Office Visit [facility] - [place] [address] [place] [address] Jalen Enciso MD [address] [place] [address] documented as of this encounter Visit Diagnoses Not on filedocumented in this encounter Care Teams Regional Rehabilitation Director Relationship Specialty Start Date End Date Kaylene Brooke MD [address] [place] [address] PCP - General General Internal Medicine 01/27/22 Farooq Marcus MD [address] [place] [address] PCP - General Family Medicine 02/27/22 documented as of this encounter
--- OUTSIDE RECORDS SUMMARY | 2024-11-21 21:26 | XMS_ITS | Encounter Summary ---
Author Organization [employer] ([place], [place], [place], [place]) Address [address] [place] [address] Care Team Providers Care Quality Tester Name Role Phone Kaylene Brooke MD Primary Care Provider [phone] Farooq Marcus MD Primary Care Provider [phone] Encounter Details Date Type Department Care Team (Late st Contact Info) Description 09/28/[address] [facility] Family Medicine [address] [place] [address] ProviderRayray MD [address], [place] [address] Social History Tobacco Use Types Packs/Day Years Used Date Smoking Tobacco: Never Assessed Sex and Gender Information Value Date Recorded Sex Assigned at Not on file Legal Sex Male 5:14 PM CDT Gender Identity Not on file Sexual Orientation Not on file documented as of this encounter Miscellaneous Notes * Cerner Conversion Note - Rayray ProviderMD - 09/28/2020 5:09 PM CDT Stroke/Warfarin Instructions Entered On: 09/28/2020 17:09 EDT Performed On: 09/28/2020 17:09 EDT by CASEY Romero RN Stroke/Warfarin Instructions Stroke/TIA Discharge Ins : Open Warfarin Discharge Ins : N/A CASEY Romero RN - 09/28/2020 17:09 EDT Stroke/TIA Discharge Instructions Individualized Stroke Risk Factors *Q : Heart disease Stroke Education Handouts Given *Q : Yes CASEY Romero RN - 09/28/2020 17:09 EDT Stroke Education Materials Given-Grid Activation of EMS *Q : Verbalizes understanding Follow-up Care After Discharge *Q : Verbalizes understanding Medications prescribed at DC *Q : Verbalizes understanding Risk Factors for Stroke *Q : Verbalizes understanding Warning S&S of Stroke *Q : Verbalizes understanding CASEY Romero RN - 09/28/2020 17:09 EDT Stroke/TIA Signs/Symptoms to Report Immediately : Sudden onset difficulty speaking, Sudden onset difficulty understanding speech, Sudden onset change in vision, Sudden onset weakness particulary on one side of the body, Sudden onset numbness/tingling, Sudden severe headache, Sudden dizziness or trouble with gait, Call 9-: EMS activation is crucial My LDL Level: : LDL Level Cholesterol LDL Calculation: 28.8 mg/dL (09/23/20 05:08:00) CASEY Romero RN - 09/28/2020 17:09 EDT Electronically signed by [facility] Conversion Colon And Rectal Surgeon Cerner at 06/29/2022 2:21 PM CDT documented in this encounter Plan of Treatment Upcoming Encounters Date Type Department Care Team (Late st Contact Info) Description 11/24/2024 2:00 PM EDT Office Visit [facility] [address] [facility] [address] [place] [address] Jalen Enciso MD [address] [facility] [address] [place] [address] documented as of this encounter Visit Diagnoses Not on filedocumented in this encounter Care Teams Quality Tester Relationship Specialty Start Date End Date Kaylene Brooke MD [address] [place] [address] PCP - General General Internal Medicine 01/27/22 Farooq Marcus MD [address] [place] [address] PCP - General Family Medicine 02/27/22 documented as of this encounter
--- OUTSIDE RECORDS SUMMARY | 2024-11-21 21:26 | XMS_ITS | Encounter Summary ---
Author Organization [employer] ([place], [place], [place], [place]) Address [address] [place] [address] Care Team Providers Care Bias Machine Operator Name Role Phone Kaylene Brooke MD Primary Care Provider [phone] Farooq Marcus MD Primary Care Provider [phone] Encounter Details Date Type Department Care Team (Late st Contact Info) Description 09/08/2020 Transcribed Document [facility] Family Medicine [facility] [place] [address] ProviderRayray MD [address] [place] [address] Social History Tobacco Use Types Packs/Day Years Used Date Smoking Tobacco: Never Assessed Sex and Gender Information Value Date Recorded Sex Assigned at Not on file Legal Sex Male 5:14 PM CDT Gender Identity Not on file Sexual Orientation Not on file documented as of this encounter Miscellaneous Notes * Cerner Conversion Note - Rayray ProviderMD - 09/08/2020 10:53 AM CDT Nursing Discharge Summary Entered On: 09/08/2020 10:53 EDT Performed On: 09/08/2020 10:53 EDT by JUVE GILBERT Rn-Clinical Coordinator I Discharge Documentation Discharge Date/Time : 09/08/2020 12:40 EDT JUVE GILBERT Rn-Clinical Coordinator I - 09/08/2020 12:48 EDT Patient Disposition, General : Discharge Discharge To : Home with ambulatory/outpatient follow-up Mode Of Departure, General Discharge : Private vehicle Accompanied By, Discharge : Spouse IV Discontinued : Yes Personal Belongings With Patient : Yes Discharge Instructions Reviewed With, Opportunity For Questions Given : Patient, Spouse Patient Education Completed : Yes Teaching Method : Explanation Teaching Evaluation : Verbalizes understanding JUVE GILBERT, Rn-Clinical Coordinator I - 09/08/2020 10:53 EDT documented in this encounter Plan of Treatment Upcoming Encounters Date Type Department Care Team (Late st Contact Info) Description 11/24/2024 2:00 PM EDT Office Visit [facility] - [place] [address] [place] [address] Jalen Enciso MD [address] [place] [address] documented as of this encounter Visit Diagnoses Not on filedocumented in this encounter Care Teams Bias Machine Operator Relationship Specialty Start Date End Date Kaylene Brooke MD [address] [place] [address] PCP - General General Internal Medicine 01/27/22 Farooq Marcus MD [facility] [facility] [place] [address] PCP - General Family Medicine 02/27/22 documented as of this encounter
--- OUTSIDE RECORDS SUMMARY | 2024-11-21 21:26 | XMS_ITS | Encounter Summary ---
Author Organization [employer] ([place], [place], [place], [place]) Address [address] [place] [address] Care Team Providers Care Station Usher Name Role Phone Kaylene Brooke MD Primary Care Provider [phone] Farooq Marcus MD Primary Care Provider [phone] Encounter Details Date Type Department Care Team (Late st Contact Info) Description 09/28/2020 Transcribed Document [facility] Family Medicine [address] [place] [address] Rayray San MD [address] [place], [place] [address] Social History Tobacco Use Types Packs/Day Years Used Date Smoking Tobacco: Never Assessed Sex and Gender Information Value Date Recorded Sex Assigned at Not on file Legal Sex Male 5:14 PM CDT Gender Identity Not on file Sexual Orientation Not on file documented as of this encounter Miscellaneous Notes * Cerner Conversion Note - Rayray ProviderMD - 09/28/2020 4:53 PM CDT Patient Education Materials Follows: Acute Pancreatitis The pancreas is a gland [...] or nasogastric tube). ??? Not eating for 3?4 days. This gives the pancreas a rest, [...] caused your condition. General instructions ??? Take wlmi-tiq-mlnbrvu and prescription medicines only as told by your health care provider. ??? Do not drive or use heavy machinery while taking prescription pain medicine. ??? Ask your health care provider if the medicine prescribed to you can cause constipation. You may need to take steps to prevent or treat constipation, such as: ? Take an lyed-iwr-wmchswq or prescription medicine for constipation. ? Eat [...] provider. Document Revised: 12/16/2018 Document Reviewed: 09/02/2018 Laila Patient Education ? 2019 [employer] documented in this encounter Plan of Treatment Upcoming Encounters Date Type Department Care Team (Late st Contact Info) Description 11/24/2024 2:00 PM EDT Office Visit [facility] - [place] [address] [place] [address] Jalen Enciso MD [address] [place] [address] documented as of this encounter Visit Diagnoses Not on filedocumented in this encounter Care Teams Station Usher Relationship Specialty Start Date End Date Kaylene Brooke MD [address] [place] [address] PCP - General General Internal Medicine 01/27/22 Farooq Marcus MD [address] [address] PCP - General Family Medicine 02/27/22 documented as of this encounter
--- OUTSIDE RECORDS SUMMARY | 2024-11-21 21:26 | XMS_ITS | Encounter Summary ---
Author Organization [employer] ([place], [place], [place], [place]) Address [address] [place] [address] Care Team Providers Care Signal And Communications Maintainer Name Role Phone Kaylene Brooke MD Primary Care Provider [phone] Farooq Marcus MD Primary Care Provider [phone] Encounter Details Date Type Department Care Team (Late st Contact Info) Description 09/26/2020 Transcribed Document [facility] [facility] Family Medicine [address] [place] [address] ProviderRayray MD [address] [place], [place] [address] Social History Tobacco Use Types Packs/Day Years Used Date Smoking Tobacco: Never Assessed Sex and Gender Information Value Date Recorded Sex Assigned at Not on file Legal Sex Male 5:14 PM CDT Gender Identity Not on file Sexual Orientation Not on file documented as of this encounter Miscellaneous Notes * Cerner Conversion Note - Historical ProviderMD - 09/26/2020 3:15 PM CDT Patient: DOYLE DEL ANGEL Age: 84 Years Sex: Male : 1935 Subjective Pt has been tolerating CLD and would like to advance his diet. Has been having bowel movements. Vital Signs T: 36.5 ??C TMIN: 36.4 ??C TMAX: 36.8 ??C HR: 70(Monitored) RR: 16 BP: 119/68 SpO2: 97% Oxygen Settings (Last) Oxygen Therapy Mode: Nasal cannula (09/26/20 07:05:00) Oxygen Flow Rate: 2 Liter/Min (09/26/20 07:05:00) Intake & Output Totals Last 24 Hours (7a-7a) Input Total: 399.2 mL Output Total: 0 mL Balance: 399.2 mL Physical Exam General: [Alert and oriented, NAD]. Neurologic: [Awake, alert, and oriented X3, no focal deficits appreciated]. Eye: [PERRL, normal conjuctiva]. HENT: [Normocephalic, no scleral icterus]. Neck: [Supple, no JVD]. Lungs: [Clear to auscultation, non-labored respiration, sat'ing well on RA]. Heart: [Normal rate, regular rhythm, no murmur, gallop or edema]. Abdomen: [Soft, nontender, non-distended, normal bowel sounds, no masses]. Musculoskeletal: [Normal range of motion, no tenderness or swelling]. Skin: [Skin is warm, dry and pink, no rashes or lesions]. Psychiatric: [Cooperative, appropriate mood and affect]. Assessment/Plan Severe sepsis due to pna, resolved -bandemia and lactic acidosis level on admission were both elevated but improved -CXR showed bibasilar opacities -Vanc KS'ed, continue zosyn Acute Pancreatitis, improved -On admission lipase 5,000's -elevated bilirubin noted, pt s/p lap lala per CT scan (pt unaware he had had prior cholecystectomy) -gi consult appreciated, elevated LFTs/pancreatitis likely due to combination of medications/dehydration from chemotherapy. no ercp at this time. -LFT's trending down -Decrease rate of IVF, likely to stop tomorrow -CLD, will escalate to low fat diet -continue iv morphine prn and stop oxycodone and try tramadol- family concern that confusional episode last night was from oxycodone. Esophageal Cancer - pt of dr enciso, - chemo last week, on 09/17 NSTEMI (Type 2) -Likely demand ischemia in the setting of pancreatitis -trops .7-->.6-->.2 -TTE - EF 50-55% -Cardio consulted, continue asp, Plavix added as pt had recent PCI -Needs to follow up with Cardio in 2-4 weeks Hypokalemia Replace PRN Monitor Normocytic Anemia Hgb 7-8 range Monitor CAD -per pt s/p [facility] and PCI [address] topete done at [facility] -pt stopped taking brilinta on his own accord shortly after the PCI as it was making him sob -on aspirin 81 mg daily. plavix started here syncope 2 weeks ago two weeks prior to admission, was at [facility] for this stay Depression -start on antidepressant last week with dr enciso -pt and unsure what medication this was. 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 -follows with dr topete and dr CO[place] Dispo: Advance diet today and evaluate tolerance VTE Prophylaxis - Medical Clopidogrel 75 mg, Oral, Tab, Daily, Routine, Start 09/24/20 10:10:00 EDT, 09/24/20 10:10:00 EDT (SERENA VANG) Enoxaparin 40 mg, SubCutaneous, Inj, Daily, Routine, Start 09/23/20 9:00:00 EDT, 09/22/20 17:45:00 EDT (CRISTINA LUNDBERG) Medications aspirin, 81 mg= 1 Tab, Oral, Daily clopidogrel, 75 mg= 1 Tab, Oral, Daily Colace, 100 mg= 1 Cap, Oral, BID, PRN dexAMETHasone + Sodium Chloride 0.9% intravenous solution [...] IntraVENous LORazepam, 1 mg= 1 Tab, Oral, Q8H, [...] Test Result Date/Time Sodium Level 138 mmol/L 09/26/2020 06:05 EDT Potassium Level 3.4 mmol/L (Low) 09/26/2020 06:05 EDT Chloride Level 108 mmol/L 09/26/2020 06:05 EDT Carbon Dioxide Level 28 mmol/L 09/26/2020 06:05 EDT Anion Gap 5 (Low) 09/26/2020 06:05 EDT Glucose Level 84 mg/dL 09/26/2020 06:05 EDT Blood Urea Nitrogen 8 mg/dL 09/26/2020 06:05 EDT Creatinine Level 1.00 mg/dL 09/26/2020 06:05 EDT eGFR >60 mL/min/1.73m2 09/26/2020 06:05 EDT eGFR NonAfrican >60 mL/min/1.73m2 09/26/2020 06:05 EDT Bun/Creatinine 8.0 09/26/2020 06:05 EDT Calcium Level 7.8 mg/dL (Low) 09/26/2020 06:05 EDT Protein Total 5.3 Gram/dL (Low) 09/26/2020 06:05 EDT Albumin Level 2.0 Gram/dL (Low) 09/26/2020 06:05 EDT Globulin 3.3 Gram/dL 09/26/2020 06:05 EDT A/G Ratio 0.6 (Low) 09/26/2020 06:05 EDT Bilirubin Total 1.1 mg/dL 09/26/2020 06:05 EDT Alk Phos 221 Units/Liter (High) 09/26/2020 06:05 EDT AST 38 Units/Liter (High) 09/26/2020 06:05 EDT ALT 62 Units/Liter (High) 09/26/2020 06:05 EDT WBC 4.2 K/uL 09/26/2020 06:05 EDT RBC 2.74 Million/uL (Low) 09/26/2020 06:05 EDT Hgb 8.3 g/dL (Low) 09/26/2020 06:05 EDT Hct 25.9 % (Low) 09/26/2020 06:05 EDT MCV 94.5 fL 09/26/2020 06:05 EDT MCH 30.3 pg 09/26/2020 06:05 EDT MCHC 32.0 Gram/dL (Low) 09/26/2020 06:05 EDT Platelet Count 128 K/uL (Low) 09/26/2020 06:05 EDT MPV 9.9 fL 09/26/2020 06:05 EDT RDW 14.8 % 09/26/2020 06:05 EDT Neutrophil Percent Man 78 % (High) 09/26/2020 06:05 EDT Band Percent Man 1 % (Low) 09/26/2020 06:05 EDT ANC # 3 K/uL 09/26/2020 06:05 EDT Lymph Percent Man 10 % (Low) 09/26/2020 06:05 EDT ALYC # 0 K/uL 09/26/2020 06:05 EDT [place] Percent Man 8 % (High) 09/26/2020 06:05 EDT Eos Percent Man 2 % 09/26/2020 06:05 EDT [place] Percent Man 1 % 09/26/2020 06:05 EDT RBC Morphology Normal 09/26/2020 06:[address] Estimate Decreased (Abnormal) 09/26/2020 06:05 EDT Slide Review Add Diff 09/26/2020 06:05 EDT documented in this encounter Plan of Treatment Upcoming Encounters Date Type Department Care Team (Late st Contact Info) Description 11/24/2024 2:00 PM EDT Office Visit [facility] - [place] [address] [place] [address] Jalen Enciso MD [address] [place] [address] documented as of this encounter Visit Diagnoses Not on filedocumented in this encounter Care Teams Signal And Communications Maintainer Relationship Specialty Start Date End Date Kaylene Brooke MD [address] [place] [address] PCP - General General Internal Medicine 01/27/22 Farooq Marcus MD [address] [facility] [place] [address] PCP - General Family Medicine 02/27/22 documented as of this encounter
--- OUTSIDE RECORDS SUMMARY | 2024-11-21 21:26 | XMS_ITS | Encounter Summary ---
Author Organization [employer] ([place], [place], [place], [place]) Address [address] [place] [address] Care Team Providers Care Personnel Officer Name Role Phone Kaylene Brooke MD Primary Care Provider [phone] Farooq Marcus MD Primary Care Provider [phone] Encounter Details Date Type Department Care Team (Late st Contact Info) Description 09/08/2020 Transcribed Document [facility] [place] [address] [place] [address] ProviderRayray MD [address] [place] [address] Social History Tobacco Use Types Packs/Day Years Used Date Smoking Tobacco: Never Assessed Sex and Gender Information Value Date Recorded Sex Assigned at Not on file Legal Sex Male 5:14 PM CDT Gender Identity Not on file Sexual Orientation Not on file documented as of this encounter Miscellaneous Notes * Cerner Conversion Note - Historical ProviderMD - 09/08/2020 8:39 AM CDT Pre Procedure Adult Entered On: 09/08/2020 8:44 EDT Performed On: 09/08/2020 8:39 EDT by JUVE GILBERT Rn-Clinical Coordinator I Height and Weight, Clinical Dosing Height Source : Stated Height Entry Format : [place] Height, Feet : 6 ft(Converted to: 183 cm, 72 Inch) Height, Inches : 0 Inch(Converted to: 0 ft 0 Inch, 0.00 cm) Clinical Height : 182.88 cm Weight Source : Standing scale Weight Entry Format : [place]iano Clinical Dosing Weight : 72.27 kg Weight, Pounds : 159 lb Body Surface Area (BSA) : 1.93 m2 Body Mass Index : 21.6 kg/m2 [place] Body Weight : 77 kg JUVE GILBERT Rn-Clinical Coordinator I - 09/08/2020 8:39 EDT Health Histories Smoking Status : Never (less than 100 in lifetime; none in last 30 days) Smokeless Tobacco Status : Never JUVE GILBERT Rn-Clinical Coordinator I - 09/08/2020 8:39 EDT Social History (As Of: 09/08/2020 08:44:50 EDT) Tobacco: Smoking Status Never smoker. (Last Updated: 04/22/2014 15:35:05 EST by [place] REED Rn) Alcohol: Alcohol Use History No. Use in Last 12 Months: No. (Last Updated: 04/22/2014 15:34:53 EST by [place] REED Rn) Substance Abuse: Drug Use Hx: No. (Last Updated: 09/08/2020 08:39:23 EDT by JUVE GILBERT Rn-Clinical Coordinator I) Infectious Disease History Has the patient ever been tested for COVID-19? : Yes, Patient stated results Negative Date of COVID-19 test known? : Yes Date of COVID-19 Test : 09/06/2020 EDT Does patient have symptoms of COVID-19? : No COVID19 Screening : No Experiencing Infectious Disease Symptoms : No symptoms Physical contact outside [place] in the last 30 days : No Infectious Disease History : Chicken pox/Shingles, Measles Tuberculosis Symptoms : None JUVE GILBERT Rn-Clinical Coordinator I - 09/08/2020 8:39 EDT COVID19 PreProcedure Screening Is this an Emergent or Add on Procedure? : No Date PreProcedure COVID-19 test known? : Yes Date of PreProcedure COVID-19 : 09/06/2020 EDT Has patient been isolated since the test : Yes Exposed to COVID19 symptoms since test? : No JUVE GILBERT Rn-Clinical Coordinator I - 09/08/2020 8:39 EDT Anesthesia/Transfusion History Family History of Anesthesia Reaction : No prior transfusion(s) Blood Transfusion Acceptable to Patient : Yes Transfusion History : Prior anesthesia without reaction Family History of Anesthesia Reaction : None JUVE GILBERT Rn-Clinical Coordinator I - 09/08/2020 8:39 EDT Functional Assessment Living Situation : Home Patient Lives With : Spouse Current Home Treatments : None JUVE GILBERT Rn-Clinical Coordinator I - 09/08/2020 8:39 EDT [place] Suicide Severity Rating Scale (C-SSRS) CSSRS Past Month Wish to be : No CSSRS Past Month Suicidal Thoughts : No CSSRS Lifetime Suicide Behavior : No Suicide Severity Rating Score : 0 Suicide Severity Rating : No Additional Care Required at this time JUVE GILBERT Rn-Clinical Coordinator I - 09/08/2020 8:39 EDT Psychosocial History Currently in Unsafe Situation : No JUVE GILBERT Rn-Clinical Coordinator I - 09/08/2020 8:39 EDT Advance Directive Patient has Advance Directive *Q : No, patient refuses Advance Directive information JUVE GILBERT Rn-Clinical Coordinator I - 09/08/2020 8:39 EDT Teaching/Learning Assessment Barriers To Learning : None evident JUVE GILBERT Rn-Clinical Coordinator I - 09/08/2020 8:39 EDT Education Topics, Periop Preadmission Perioperative Education Grid Arrival Time/Place : Verbalizes understanding Falls : Verbalizes understanding IV's : Verbalizes understanding Preprocedure Preparations : Verbalizes understanding Preprocedure Tests/Labs : Verbalizes understanding JUVE GILBERT Rn-Clinical Coordinator I - 09/08/2020 8:39 EDT General Info 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 Emergency Contact #1 Phone Number : . Emergency Contact #1 Relationship : . Emergency Contact #2 : . Emergency Contact #2 Phone Number : . Emergency Contact #2 Relationship : . Primary Language : [place] Islander Communication Barrier : None Stone Gluer Needed : No JUVE GILBERT Rn-Clinical Coordinator I - 09/08/2020 8:39 EDT Sleep Apnea Risk Assmt Hx of [...] Sleep Apnea Risk Level Score : 3 JUVE GILBERT Rn-Clinical Coordinator I - 09/08/2020 8:39 EDT Segun Scale Segun Sensory Perception : No impairment Segun Moisture : Rarely moist Segun Activity : Walks frequently Segun Mobility : No limitation Segun Nutrition : Adequate Segun Friction and Shear : No apparent problem Segun Score : 22 JUVE GILBERT Rn-Clinical Coordinator I - 09/08/2020 8:39 EDT Fall Risk Scales ABCs Fall Injury Risk Identification : None HERRERA Hx Falls Immediate/Within 3 Months : Yes Herrera Secondary Diagnosis : Yes HERRERA Use of Ambulatory Aid : None HERRERA IV Therapy or IV Access : Yes Herrera Gait/Transferring : Normal, bedrest, immobile Herrera Mental Status : Oriented to own ability Herrera Fall Risk Score : 60 HERRERA Fall Scale Risk Level : 46 or > High Risk [place] Fall Interventions : Adequate lighting, Assistive devices within reach, Bed in low position, Call device within reach, Personal items within reach, Reinforced to call for assistance before getting out of bed, Room free of clutter/spills JUVE GILBERT Rn-Clinical Coordinator I - 09/08/2020 8:39 EDT Valuables and Belongings Valuables and Belongings : Clothing Clothing : Common streetwear Clothing Disposition : Bedside, With family JUVE GILBERT Rn-Clinical Coordinator I - 09/08/2020 8:39 EDT documented in this encounter Plan of Treatment Upcoming Encounters Date Type Department Care Team (Late st Contact Info) Description 11/24/2024 2:00 PM EDT Office Visit [facility] [place] [address] [place] [address] Jalen Enciso MD [address] [place] [address] [place] [address] documented as of this encounter Visit Diagnoses Not on filedocumented in this encounter Care Teams Personnel Officer Relationship Specialty Start Date End Date Kaylene Brooke MD [address] [place] [address] PCP - General General Internal Medicine 01/27/22 Farooq Marcus MD [address] [place], [place] [address] PCP - General Family Medicine 02/27/22 documented as of this encounter
--- OUTSIDE RECORDS SUMMARY | 2024-11-21 21:26 | XMS_ITS | Encounter Summary ---
Author Organization [employer] ([place], [place], [place], [place]) Address [address] [place] [address] Care Team Providers Care Cleaner Industrial Name Role Phone Kaylene Brooke MD Primary Care Provider [phone] Farooq Marcus MD Primary Care Provider [phone] Encounter Details Date Type Department Care Team (Late Contact Info) Description 09/27/2020 Transcribed Document [facility] [place] [facility] [place] [address] ProviderRayray MD [address] [place], [place] [address] Social History Tobacco Use Types Packs/Day Years Used Date Smoking Tobacco: Never Assessed Sex and Gender Information Value Date Recorded Sex Assigned at Not on file Legal Sex Male 5:14 PM CDT Gender Identity Not on file Sexual Orientation Not on file documented as of this encounter Miscellaneous Notes * Cerner Conversion Note - Historical ProviderMD - 09/27/2020 5:00 AM CDT Chart Check - Review Order Profile Entered On: 09/28/2020 3:17 EDT Performed On: 09/27/2020 5:00 EDT by Niki Guzman, RN Chart Check Powerplans Initiated/Discontinued as Appropriate : Yes All Active Orders Reviewed : Yes Niki Guzman RN - 09/28/2020 3:17 EDT documented in this encounter Plan of Treatment Upcoming Encounters Date Type Department Care Team (Late st Contact Info) Description 11/24/2024 2:00 PM EDT Office Visit [facility] [address] [place] [address] Jalen Enciso MD [address] [place] [address] documented as of this encounter Visit Diagnoses Not on filedocumented in this encounter Care Teams Cleaner Industrial Relationship Specialty Start Date End Date Kaylene Brooke MD [address] [place] [address] PCP - General General Internal Medicine 01/27/22 Farooq Marcus MD [address] [place] [address] PCP - General Family Medicine 02/27/22 documented as of this encounter
--- OUTSIDE RECORDS SUMMARY | 2024-11-21 21:26 | XMS_ITS | Encounter Summary ---
Author Organization [employer] ([place], [place], [place], [place]) Address [address] [place] [address] Care Team Providers Care Packaging Machine Operator Name Role Phone Kaylene Brooke MD Primary Care Provider [phone] Farooq Marcus MD Primary Care Provider [phone] Encounter Details Date Type Department Care Team (Late st Contact Info) Description 09/08/2020 Transcribed Document [facility] [place] [address] [place] [address] ProviderRayray MD [address] [place] [address] Social History Tobacco Use Types Packs/Day Years Used Date Smoking Tobacco: Never Assessed Sex and Gender Information Value Date Recorded Sex Assigned at Not on file Legal Sex Male 5:14 PM CDT Gender Identity Not on file Sexual Orientation Not on file documented as of this encounter Miscellaneous Notes * Cerner Conversion Note - Rayray San MD - 09/08/2020 10:[address] [facility] [address] [place] [id number] ALEX DOYLE E :1935 Visit Time:09/08/2020 Your Visit Summary Your Care Team Admitting Physician - JALEN ENCISO MD-[facility] Attending Physician - JALEN ENCISO MD-[facility] Primary Care Physician - MAZIN SHERIDAN MD-[facility] Referring Physician - JALEN ENCISO MD-[facility] Your Diagnosis Malignant neoplasm of cardia, Malignant neoplasm of cardia Discharge Vitals Temperature 36.2 ??C Heart Rate (Monitored) 72 Blood Pressure 150/72 What to do next Instructions From Your Care Team Diet after Discharge: Resume usual diet as tolerated Activity after Discharge: Rest and relax today, No strenuous activity, _, _ Driving Restrictions: No driving for 24 hours. Showering/Bathing: _, _ Medications: No changes to your current home medications., _, _ Dressing Instructions: _, _, _ Follow-Up Appointments Follow Up with JALEN ENCISO MD-ON[facility] When Comments Follow-up as instructed Where: [address] [place] [address]- Medications What How Much When Instructions Next Dose aspirin 81 Milligram(s) Oral Every Day LORazepam 1 Milligram(s) Oral At Bedtime metoprolol (metoprolol succinate) 25 Milligram(s) Oral Every Day multivitamin 1 Tablet(s) Oral Every Day pantoprazole 40 Milligram(s) Oral Every Day Take your medications faithfully. [...] Allergies Immunizations This Visit No Immunizations Found Education Materials Implanted Port Insertion, Care After This sheet gives you information about how to care for yourself after your procedure. Your health care provider may also give you more specific instructions. If you have problems or questions, contact your health care provider. What can I expect after the procedure? After the procedure, it is common to have: ??? Discomfort at the port insertion site. ??? Bruising on the skin over the port. This should improve over 3???4 days. Follow these instructions at home: Port care ??? After your port is placed, you will get a neurology technician's information card. The card has information about your port. Keep this card with you at all times. ??? Take care of the port as told by your health care provider. Ask your health care provider if you or a family member can get training for taking care of the port at home. A home health care nurse may also take care of the port. ??? Make sure to remember what type of port you have. Incision care ??? Follow instructions from your health care provider about how to take care of your port insertion site. Make sure you: ? Wash your hands with soap and water before and after you change your bandage (dressing). If soap and water are not available, use hand logistics coordinator. ? Change your dressing as told by your health care provider. ? Leave stitches (sutures), skin glue, or adhesive strips in place. These skin closures may need to stay in place for 2 weeks or longer. If adhesive strip edges start to loosen and curl up, you may trim the loose edges. Do not remove adhesive strips completely unless your health care provider tells you to do that. ??? Check your port insertion site every day for signs of infection. Check for: ? Redness, swelling, or pain. ? Fluid or blood. ? Warmth. ? Pus or a bad smell. Activity ??? Return to your normal activities as told by your health care provider. Ask your health care provider what activities are safe for you. ??? Do not lift anything that is heavier than 10 lb (4.5 kg), or the limit that you are told, until your health care provider says that it is safe. General instructions ??? Take ryln-wto-ibcfeih and prescription medicines only as told by your health care provider. ??? Do not take baths, swim, or use a hot tub until your health care provider approves. Ask your health care provider if you may take showers. You may only be allowed to take sponge baths. ??? Do not drive for 24 hours if you were given a sedative during your procedure. ??? Wear a medical alert bracelet in case of an emergency. This will tell any health care providers that you have a port. ??? Keep all follow-up visits as told by your health care provider. This is important. Contact a health care provider if: ??? You cannot flush your port with saline as directed, or you cannot draw blood from the port. ??? You have a fever or chills. ??? You have redness, swelling, or pain around your port insertion site. ??? You have fluid or blood coming from your port insertion site. ??? Your port insertion site feels warm to the touch. ??? You have pus or a bad smell coming from the port insertion site. Get help right away if: ??? You have chest pain or shortness of breath. ??? You have bleeding from your port that you cannot control. Summary ??? Take care of the port as told by your health care provider. Keep the neurology technician's information card with you at all times. ??? Change your dressing as told by your health care provider. ??? Contact a health care provider if you have a fever or chills or if you have redness, swelling, or pain around your port insertion site. ??? Keep all follow-up visits as told by your health care provider. This information is not intended to replace advice given to you by your health care provider. Make sure you discuss any questions you have with your health care provider. Document Revised: 09/24/2018 Document Reviewed: 09/24/2018 Elsevier Patient Education ?? 2020 Elsevier Inc. Moderate Conscious Sedation, Adult, Care After These instructions provide you with information about caring for yourself after your procedure. Your health care provider may also give you more specific instructions. Your treatment has been planned according to current medical practices, but problems sometimes occur. Call your health care provider if you have any problems or questions after your procedure. What can I expect after the procedure? After your procedure, it is common: ??? To feel sleepy for several hours. ??? To feel clumsy and have poor balance for several hours. ??? To have poor judgment for several hours. ??? To vomit if you eat too soon. Follow these instructions at home: For at least 24 hours after the procedure: ??? Do not: ? Participate in activities where you could fall or become injured. ? Drive. ? Use heavy machinery. ? Drink alcohol. ? Take sleeping pills or medicines that cause drowsiness. ? Make important decisions or sign legal documents. ? Take care of children on your own. ??? Rest. Eating and drinking ??? Follow the diet recommended by your health care provider. ??? If you vomit: ? Drink water, juice, or soup when you can drink without vomiting. ? Make sure you have little or no nausea before eating solid foods. General instructions ??? Have a responsible adult stay with you until you are awake and alert. ??? Take kfsy-xfz-fzlynke and prescription medicines only as told by your health care provider. ??? If you smoke, do not smoke without supervision. ??? Keep all follow-up visits as told by your health care provider. This is important. Contact a health care provider if: ??? You keep feeling nauseous or you keep vomiting. ??? You feel light-headed. ??? You develop a rash. ??? You have a fever. Get help right away if: ??? You have trouble breathing. This information is not intended to replace advice given to you by your health care provider. Make sure you discuss any questions you have with your health care provider. Document Revised: 02/08/2018 Document Reviewed: 06/17/2016 [employer] Patient Education ?? 2020 [employer] FAQ ??? Patient COVID-19 testing Why do I need a COVID-19 test in the hospital? We are testing patients as part of an overall effort to ensure the safety of our patients, staff and providers, and to limit the spread of the novel coronavirus throughout our community. What happens if I test positive for COVID-19? Any scheduled elective procedure will be postponed and treatment for the coronavirus will follow the protocol that is currently in place. If you are admitted to the hospital, we will use droplet precautions for patients who test positive for COVID-19. If I???m a patient, should I wear a mask? Yes. When you are in your room alone, you may remove your mask. When anyone enters your room, you should put your mask back on. Will I be allowed to have visitors if I am admitted to the hospital with COVID-19? As part of the standard care for COVID-19 patients, visitors will not be allowed to protect them from potential exposure to the novel coronavirus. If you have a health care support person with you during a pending test and the test comes back positive, your visitor will be asked to leave and follow up with their primary care provider. Public health may reach out to them to complete contact tracing. Will my status as COVID-19 positive be reported? Because COVID-19 is a public health threat, all positive cases are reported through the local health department and the [place] Department for Public Health. Those organizations are responsible for monitoring public health threats. What is contact tracing? The public health departments at the state and local levels use contact tracing to prevent the spread of infectious disease. They will work to identify people who have COVID-19 and their contacts who may have been exposed. What does contact tracing involve? Typically, a contact tracer will interview patients with COVID-19 to identify everyone with whom they have had close contact during the time they may have been infectious and then notify those contacts of potential exposure and refer them for testing. They may monitor the contacts for symptoms of COVID-19 and connect the contacts with services they may need during a recommended self-quarantine period. The patient???s name is not revealed to anyone during the contact tracing interviews, even if a contact asks. Who would be considered a ???close contact?? ? According to the CDC, a close contact is defined as someone who was within 6 feet of an infected person for at least 15 minutes, starting from 48 hours before the person began feeling sick until the time the patient was isolated. What can a close contact expect during this process? A contact tracer from the health department will contact that person to inform them they have been exposed to COVID-19. If that happens, the contact should self-quarantine for 14 days, starting from the last date of possible exposure, monitor their health, wear a face covering and maintain social distancing ??? at least 6 feet from others at all times. Should a close contact seek medical care? Close contacts should take their temperature twice a day, watch for COVID-19 symptoms and notify the health department if they develop symptoms. They should also notify people with whom they have had recent close contact if they become ill. They should seek medical care if symptoms worsen or become severe, including trouble breathing, persistent pain or pressure in the chest, confusion, inability to wait or stay awake, or bluish lips or face. Steps to Help Prevent the Spread of COVID-19 if You Are Sick In all cases, follow the guidance of your health care provider and local health department. Your local health department determines the length of time for quarantine and will notify you with detailed information. Monitor your symptoms. Common symptoms of COVID-19 include fever, fatigue, diarrhea/vomiting, loss of taste and smell, and cough. Trouble breathing is a more serious symptom that means you should get medical attention. If you develop emergency warning signs for COVID-19 get medical attention immediately. Emergency warning signs include*: ??? Trouble breathing ??? Persistent pain or pressure in the chest ??? New confusion or inability to arouse ??? Bluish lips or face *This list is not all inclusive. Please consult your medical provider for any other symptoms that are severe or concerning. Call 911 if you have a medical emergency. If you have a medical emergency and need to call 911, notify the telephone operators supervisor that you have, or think you might have, COVID-19. If possible, put on a facemask before medical help arrives. Stay home except to get medical care. ??? Stay home: Most people with COVID-19 have mild illness and can recover at home without medical care. Do not leave your home, except to get medical care. Do not visit public areas. ??? Stay in touch with your doctor. Call before you get medical care. Be sure to get care if you have trouble breathing, or have any other emergency warning signs, or if you think it is an emergency. Separate yourself from other people in your home; this is known as home isolation. ??? Stay away from others: As much as possible, stay away from others. You should stay in a specific ???sick room?? if possible, and away from other people in your home. Use a separate bathroom, if available. Call ahead before visiting your doctor. ??? Call ahead: Many medical visits for routine care are being postponed or done by phone or telemedicine. If you have a medical appointment that cannot be postponed, call your doctor's office, and tell them you have or may have COVID-19. This will help the office protect themselves and other patients. If you are sick, wear a facemask in the following situations, if available. ??? If you are sick: You should wear a facemask, if available, when you are around other people (including before you enter a health care provider???s office). ??? If you are caring for others: If the person who is sick is not able to wear a facemask (for example, because it causes trouble breathing), then as their caregiver, you should wear a facemask when in the same room with them. Visitors, other than caregivers, are not recommended. Cover your coughs and sneezes. ??? Cover: Cover your mouth and nose with a tissue when you cough or sneeze. ??? Dispose: Throw used tissues into a lined trash can. ??? Wash hands: Immediately wash your hands with soap and water for at least 20 seconds. If soap and water are not available, clean your hands with an alcohol-based hand logistics coordinator that contains at least 60% alcohol. Clean your hands often. ??? Wash hands: Wash your hands often with soap and water for at least 20 seconds when visibly dirty. This is especially important after blowing your nose, coughing or sneezing, and going to the bathroom, and before eating or preparing food. ??? Hand logistics coordinator: Use an alcohol-based hand logistics coordinator with at least 60% alcohol, covering all surfaces of your hands and rubbing them together until they feel dry. ??? Avoid touching: Avoid touching your eyes, nose and mouth with unwashed hands. Avoid sharing personal household items. ??? Do not share: Do not share dishes, drinking glasses, cups, eating utensils, towels or bedding with other people in your home. ??? Wash thoroughly after use: After using these items, wash them thoroughly with soap and water or put them in the hair dresser. Clean all high-touch surfaces every day. Clean high-touch surfaces in your isolation area (???sick room?? and bathroom) every day; let a caregiver clean and disinfect high-touch surfaces in other areas of the home. ??? Clean and disinfect: Routinely clean high-touch surfaces in your ???sick room?? and bathroom. Let someone else clean and disinfect surfaces in common areas, but not your bedroom and bathroom. ? If a caregiver or other person needs to clean and disinfect a sick person???s bedroom or bathroom, they should do so on an as-needed basis. The caregiver/other person should wear a mask and wait as long as possible after the sick person has used the bathroom. ? High-touch surfaces include phones, remote controls, counters, tabletops, doorknobs, bathroom fixtures, toilets, keyboards, tablets and bedside tables. ??? Clean and disinfect areas that may have blood, stool, or body fluids on them. ??? Household solar system designer and disinfectants: Clean the area or item with soap and water or another detergent if it is dirty. Then, use a household disinfectant. ??? Be sure to follow the instructions on the label to ensure safe and effective use of the product. Many products recommend keeping the surface wet for several minutes to ensure germs are killed. Many also recommend precautions such as wearing gloves and making sure you have good ventilation during use of the product. ??? Most EPA-registered household disinfectants should be effective. A full list of disinfectants can be found here: https://www.epa.gov/pesticide-registration/jcbj-w-vpjdzkbbumpzw-vzr-ujvctig-dc rs-cov-2 Emergency Awareness and Preventative Care STROKE is [...] Assistance with quitting is available by contacting 7-312-YLASNOW. This is a free resource providing counseling, [...] CPR? There are two easy steps: Call 9-1-1 if you see a teen or adult [...] This Visit (last charted value for your 09/08/2020 visit) Coagulation 09/08/2020 8:37 AM INR: 1.0 -- Normal range between ( 0.9 and 1.2 ) PT: 10.7 Second(s) -- Normal range between ( 9.2 and 12.0 ) Patient Name:ALEX DOYLE E I have received and understand this information and was given the opportunity to ask questions. Patient/Pattern Hanger Name: Patient/Pattern Hanger Signature: Relationship to Patient: Clinician/Hospital Pattern Hanger Signature: Date: documented in this encounter Plan of Treatment Upcoming Encounters Date Type Department Care Team (Late st Contact Info) Description 11/24/2024 2:00 PM EDT Office Visit [facility] - [address] [place] [address] Jalen Enciso MD [address] [place] [address] documented as of this encounter Visit Diagnoses Not on filedocumented in this encounter Care Teams Packaging Machine Operator Relationship Specialty Start Date End Date Kaylene Brooke MD [address] [place] [address] PCP - General General Internal Medicine 01/27/22 Farooq Marcus MD [address] [place] [address] PCP - General Family Medicine 02/27/22 documented as of this encounter
--- OUTSIDE RECORDS SUMMARY | 2024-11-21 21:26 | XMS_ITS | Encounter Summary ---
Author Organization [employer] ([place], [place], [place], [place]) Address [address] [place] [address] Care Team Providers Care Auto Design Checker Name Role Phone Kaylene Brooke MD Primary Care Provider [phone] Farooq Marcus MD Primary Care Provider [phone] Encounter Details Date Type Department Care Team (Late st Contact Info) Description 09/27/2020 Transcribed Document [facility] [place] [address] ProviderRayray MD [address] [place], [place] [address] Social History Tobacco Use Types Packs/Day Years Used Date Smoking Tobacco: Never Assessed Sex and Gender Information Value Date Recorded Sex Assigned at Not on file Legal Sex Male 5:14 PM CDT Gender Identity Not on file Sexual Orientation Not on file documented as of this encounter Miscellaneous Notes * Cerner Conversion Note - Rayray ProviderMD - 09/27/2020 2:00 AM CDT Sled Maker Details Entered On: 09/28/2020 3:17 EDT Performed On: 09/27/2020 2:00 EDT by Niki Guzman RN Order [...] [address] [place] [address] Jalen Enciso MD [address] [place] [address] documented as of this encounter Visit Diagnoses Not on filedocumented in this encounter Care Teams Auto Design Checker Relationship Specialty Start Date End Date MendyKaylene dunn MD [address] [place] [address] PCP - General General Internal Medicine 01/27/22 Farooq Marcus MD [address] [place] [address] PCP - General Family Medicine 02/27/22 documented as of this encounter
--- OUTSIDE RECORDS SUMMARY | 2024-11-21 21:26 | XMS_ITS | Encounter Summary ---
Author Organization [employer] ([place], [place], [place], [place]) Address [address] [place] [address] Care Team Providers Care Junior Network Engineer Name Role Phone Kaylene Brooke MD Primary Care Provider [phone] Farooq Marcus MD Primary Care Provider [phone] Encounter Details Date Type Department Care Team (Late st Contact Info) Description 09/28/2020 Transcribed Document [facility] [place] [address] [place] [address] ProviderRayray MD [address] [place], [place] [address] Social History Tobacco Use Types Packs/Day Years Used Date Smoking Tobacco: Never Assessed Sex and Gender Information Value Date Recorded Sex Assigned at Not on file Legal Sex Male 5:14 PM CDT Gender Identity Not on file Sexual Orientation Not on file documented as of this encounter Miscellaneous Notes * Cerner Conversion Note - Rayray ProviderMD - 09/28/2020 8:34 AM CDT Patient: DOYLE DEL ANGEL Age: 84 years Sex: Male : 1935 Associated Diagnoses: None Author: JALEN ENCISO MD-ONC Attachments: None Subjective Chief complaint Chief complaint Feels better. No new issues. Health Status Allergies Allergies (1) Active Reaction No Known Allergies None Documented Current medications Medications (20) Active Scheduled: (10) #NaCl 0.9% *FLUSH* inj 10 mL 10 mL, IV Push, Q8H amoxicillin/clav 875/125 mg tab 875 mg 1 Tab, Oral, BID aspirin 81 mg chew tab 81 mg 1 Tab, Oral, Daily clopidogrel 75 mg tab 75 mg 1 Tab, Oral, Daily enoxaparin 40 mg/0.4 mL inj 40 mg 0.4 mL, SubCutaneous, Daily famotidine 20 mg tab 20 mg 1 Tab, Oral, Daily LORazepam 1 mg tab 1 mg 1 Tab, Oral, At Bedtime multiple vitamin (Thera) tab 1 Tab, Oral, Daily saccharomyces boulardii 250 mg cap 250 mg 1 Cap, Oral, BID senna 8.6 mg tab 8.6 mg 1 Tab, Oral, BID Continuous: (0) PRN: (10) acetaminophen 325 mg tab 650 [...] Impression and Plan Assessment and Plan Diagnosis Pancreatitis-idiopathic. GE jct cancer. Course Improving Orders Will see as outpatient. Nothing else to add. . documented in this encounter Plan of Treatment Upcoming Encounters Date Type Department Care Team (Late st Contact Info) Description 11/24/2024 2:00 PM EDT Office Visit [facility] [address] [facility] [address] [place] [address] Jalen Enciso MD [address] [place] [address] documented as of this encounter Visit Diagnoses Not on filedocumented in this encounter Care Teams Junior Network Engineer Relationship Specialty Start Date End Date Kaylene Brooke MD [address] [place] [address] PCP - General General Internal Medicine 01/27/22 Farooq Marcus MD [address] [place] [address] PCP - General Family Medicine 02/27/22 documented as of this encounter
--- OUTSIDE RECORDS SUMMARY | 2024-11-21 21:26 | XMS_ITS | Encounter Summary ---
Author Organization [employer] ([place], [place], [place], [place]) Address [address] [place] [address] Care Team Providers Care Performance Test Engineer Name Role Phone Kaylene Brooke MD Primary Care Provider [phone] Farooq Marcus MD Primary Care Provider [phone] Encounter Details Date Type Department Care Team (Late st Contact Info) Description 09/27/2020 Transcribed Document [facility] [place] Family Medicine [address] [place] [address] ProviderRayray MD [address] [place], [place] [address] Social History Tobacco Use Types Packs/Day Years Used Date Smoking Tobacco: Never Assessed Sex and Gender Information Value Date Recorded Sex Assigned at Not on file Legal Sex Male 5:14 PM CDT Gender Identity Not on file Sexual Orientation Not on file documented as of this encounter Miscellaneous Notes * Cerner Conversion Note - Historical ProviderMD - 09/27/2020 4:14 PM CDT Patient: DOYLE DEL ANGEL Age: 84 Years Sex: Male : 1935 Subjective Pt is tolerating diet. Reports he feels weak today. Vital Signs T: 36.7 ??C TMIN: 36.3 ??C TMAX: 37.3 ??C HR: 70(Monitored) RR: 16 BP: 113/62 SpO2: 95% Oxygen Settings (Last) Oxygen Therapy Mode: Room air (09/27/20 12:07:00) Oxygen Flow Rate: 2 Liter/Min (09/26/20 07:05:00) Intake & Output Totals Last 24 Hours (7a-7a) Input Total: 451.65 mL Output Total: 0 mL Balance: 451.65 mL Physical Exam General: [Alert and oriented, [...] elevated but improved -CXR showed bibasilar opacities -[facility], Transition from Zosyn to Augmentin Acute Pancreatitis, improved -On admission lipase 5,000's -elevated bilirubin noted, pt s/p lap lala per CT scan (pt unaware he had had prior cholecystectomy) -gi consult appreciated, elevated LFTs/pancreatitis likely due to combination of medications/dehydration from chemotherapy. no ercp at this time. -LFT's trending down -Received IVF -CLD, will escalate to low fat diet [...] 7-8 range Monitor CAD -per pt s/p LHC and PCI [address] topete done at [facility] -pt stopped taking brilinta on his own accord shortly after the PCI as it was making him sob -on aspirin 81 mg daily. plavix started here syncope 2 weeks ago two weeks prior to admission, was at [facility] for this stay Depression -start on antidepressant last week with dr enciso -pt and unsure what medication this was. 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 -follow[facility]: Hope to [place] tomorrow VTE Prophylaxis - Medical Clopidogrel 75 mg, Oral, Tab, Daily, Routine, Start 09/24/20 10:10:00 EDT, 09/24/20 10:10:00 EDT (SERENA VANG) Enoxaparin 40 mg, SubCutaneous, Inj, Daily, Routine, Start 09/23/20 9:00:00 EDT, 09/22/20 17:45:00 EDT (CRISTINA LUNDBERG) Medications aspirin, 81 mg= 1 Tab, Oral, Daily Augmentin 875 mg-125 mg oral tablet, 875 mg= 1 Tab, Oral, BID clopidogrel, 75 mg= 1 Tab, Oral, Daily [...] mg= 2 mL, IV Push, Q4H, PRN Lab Results Test Name Test Result Date/Time Sodium Level 141 mmol/L 09/27/2020 11:14 EDT Potassium Level 3.3 mmol/L (Low) 09/27/2020 11:14 EDT Chloride Level 109 mmol/L 09/27/2020 11:14 EDT Carbon Dioxide Level 26 mmol/L 09/27/2020 11:14 EDT Anion Gap 9 09/27/2020 11:14 EDT Glucose Level 115 mg/dL (High) 09/27/2020 11:14 EDT Blood Urea Nitrogen 5 mg/dL (Low) 09/27/2020 11:14 EDT Creatinine Level 1.00 mg/dL 09/27/2020 11:14 EDT eGFR >60 mL/min/1.73m2 09/27/2020 11:14 EDT eGFR NonAfrican >60 mL/min/1.73m2 09/27/2020 11:14 EDT Bun/Creatinine 5.0 (Low) 09/27/2020 11:14 EDT Calcium Level 8.0 mg/dL (Low) 09/27/2020 11:14 EDT Protein Total 5.3 Gram/dL (Low) 09/27/2020 11:14 EDT Albumin Level 2.0 Gram/dL (Low) 09/27/2020 11:14 EDT Globulin 3.3 Gram/dL 09/27/2020 11:14 EDT A/G Ratio 0.6 (Low) 09/27/2020 11:14 EDT Bilirubin Total 0.6 mg/dL 09/27/2020 11:14 EDT Alk Phos 222 Units/Liter (High) 09/27/2020 11:14 EDT AST 33 Units/Liter 09/27/2020 11:14 EDT ALT 50 Units/Liter 09/27/2020 11:14 EDT WBC 4.6 K/uL 09/27/2020 11:14 EDT RBC 2.68 Million/uL (Low) 09/27/2020 11:14 EDT Hgb 8.1 g/dL (Low) 09/27/2020 11:14 EDT Hct 25.1 % (Low) 09/27/2020 11:14 EDT MCV 93.7 fL 09/27/2020 11:14 EDT MCH 30.2 pg 09/27/2020 11:14 EDT MCHC 32.3 Gram/dL 09/27/2020 11:14 EDT Platelet Count 153 K/uL (Low) 09/27/2020 11:14 EDT MPV 9.6 fL 09/27/2020 11:14 EDT RDW 15.1 % (High) 09/27/2020 11:14 EDT Neutrophil Percent Man 60 % 09/27/2020 11:14 EDT Band Percent Man 5 % 09/27/2020 11:14 EDT Lymph Percent Man 16 % (Low) 09/27/2020 11:14 EDT [place] Percent Man 16 % (High) 09/27/2020 11:14 EDT Eos Percent Man 3 % 09/27/2020 11:14 EDT Baso Percent Man 0 % 09/27/2020 11:14 EDT RBC Morphology Abnormal 09/27/2020 11:14 EDT Anisocytosis 1+ (Abnormal) 09/27/2020 11:14 EDT Poikilocytosis 1+ (Abnormal) 09/27/2020 11:14 EDT Ovalocytes 1+ (Abnormal) 09/27/2020 11:[address] Estimate Adequate 09/27/2020 11:14 EDT Slide Review Add Diff 09/27/2020 11:14 EDT documented in this encounter Plan of Treatment Upcoming Encounters Date Type Department Care Team (Late st Contact Info) Description 11/24/2024 2:00 PM EDT Office Visit [facility] - [facility] [address] [place] [address] Jalen Enciso MD [address] [facility] [address] [place] [address] documented as of this encounter Visit Diagnoses Not on filedocumented in this encounter Care Teams Performance Test Engineer Relationship Specialty Start Date End Date Kaylene Brooke MD [address] [place] [address] PCP - General General Internal Medicine 01/27/22 Farooq Marcus MD [address] [place] [address] PCP - General Family Medicine 02/27/22 documented as of this encounter
--- OUTSIDE RECORDS SUMMARY | 2024-11-21 21:26 | XMS_ITS | Clinical Summary ---
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) - Unsigned Encounters Date Type Department Care Team Description 11/21/2024 Telephone [facility] - [place] [address] [place] [address] Jalen Enciso MD Appointment 09/29/2024 Telephone [facility] [place] [address] [place] [address] Jalen Enciso MD Leg Swelling from Last 3 Months Immunizations Immunization Administration Dates Next Due Td 7+ years, (TDVAX) 2 Lf te tanus toxoid preservative free 05/15/1996 Tdap 07/30/2021 Family History Medical History Relation Name Comments Diabetes Brother Emphysema Father 62 Stroke Mother 87 Colon cancer Sister Relation Name Status Comments Brother Father Mother Sister Social History Tobacco Use Types Packs/Day Years [...] Date Scotty rded Speak language other than [place]uran at home Not on file 03/22/2023 Want [...] 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 on file Not on file Not [...] Description 11/24/2024 2:00 PM EDT Office Visit [facility] [place] [address] [facility] [address] [place] [address] Jalen Enciso MD [address] [place] [address] Health Maintenance Due Date Last Done Comments Medicare Initial AWV G0438 Depression Screening (12+) 1949 Pneumococcal 50+ years (1 of 1 - PCV) 12/02/1987 Shingles Vaccine (Zoster) (1 of 2) 12/02/1987 Respiratory Syncytial Virus (RSV) Adult or (1 - 1-dose 75+ series) 2012 Falls Risk Screening 03/12/2024 COVID-19 VACCINE ( - 2024- season) 2024 11/10/2020, 05/19/2020, 04/21/2020 Influenza Vaccine (#1) 2024 Tobacco Cessation Counseling and Screening (12+) 03/24/2025 03/24/2024 DTAP/TDAP/TD VACCINES (3 - T d or Tdap) 07/31/2031 07/30/2021, 05/15/1996 Insurance MEDICARE PART [place] [address] [address] SUPP Care Teams Call Center Supervisor Relationship Specialty Start Date End Date Farooq Marcus MD [address] [place] [address] PCP - General Family Medicine 02/27/22
--- OUTSIDE RECORDS SUMMARY | 2024-11-21 21:26 | XMS_ITS | Encounter Summary ---
Author Organization [employer] ([place], [place], [place], [place]) Address [address] [place] [address] Care Team Providers Care Informatics Pharmacist Name Role Phone Kaylene Brooke MD Primary Care Provider Farooq Marcus MD Primary Care Provider [phone] Encounter Details Date Type Department Care Team (Late st Contact Info) Description 09/27/2020 Transcribed Document [facility] [place] Family [facility] [place] [address] ProviderRayray MD [address] [place], [place] [address] Social History Tobacco Use Types Packs/Day Years Used Date Smoking Tobacco: Never Assessed Sex and Gender Information Value Date Recorded Sex Assigned at Not on file Legal Sex Male 5:14 PM CDT Gender Identity Not on file Sexual Orientation Not on file documented as of this encounter Miscellaneous Notes * Cerner Conversion Note - Rayray ProviderMD - 09/27/2020 3:37 PM CDT On Going Discharge Planning Entered On: 09/27/2020 15:38 EDT Performed On: 09/27/2020 15:37 EDT by ELIZABETH LAMBERT, RN-Marketing And Public Relations ManagerAutomotive Specialty Technician Progress Note Discharge Arrangements : Patient Post-Acute Information Patient Name: DOYLE DEL ANGEL Gender: Male : [birth year] Age: 84 Years No Post-Acute Placement(s) Listed No Post-Acute Service(s) Listed No [place] Referral(s) Listed Is the Patient Meeting Medical Necessity : Yes Did you Attend Multidisciplinary Rounds? : Yes ELIZABETH LAMBERT, RN-Marketing And Public Relations Manager - 09/27/2020 15:37 EDT Narrative Progress Note Narrative Progress Note : rrs mod boost 3 5/5 day s cm spoke to daughter and patient . cm arranged for vna hh and walker from [facility] . choice /im needed . family will transport at discharge augusto shannon dcp: home hh Historical Progress Note : rrs mod plans pending -augusto shannon previous charting :DCP: patient states he plans on going home with spouse, who will transport, therapy recommends home health and rolling walker at discharge and patient agrees to this if MD feels appropriate. CM will continue to follow. ELIZABETH LAMBERT RN-Marketing And Public Relations Manager - 09/24/20 16:39:43 ELIZABETH LAMBERT RN-Marketing And Public Relations Manager - 09/27/2020 15:37 EDT Electronically signed by Nidia [facility] Conversion Master [employer] at 06/29/2022 2:10 PM CDT documented in this encounter Plan of Treatment Upcoming Encounters Date Type Department Care Team (Late st Contact Info) Description 11/24/2024 2:00 PM EDT Office Visit [facility] - [address] [place] [address] Jalen Enciso MD [address] [facility] [address] [place] [address] documented as of this encounter Visit Diagnoses Not on filedocumented in this encounter Care Teams Informatics Pharmacist Relationship Specialty Start Date End Date Kaylene Brooke MD [address] [place] [address] PCP - General General Internal Medicine 01/27/22 Farooq Marcus MD [address] [place] [address] PCP - General Family Medicine 02/27/22 documented as of this encounter
--- OUTSIDE RECORDS SUMMARY | 2024-11-21 21:26 | XMS_ITS | Encounter Summary ---
Author Organization [employer] ([place], [place], [place], [place]) Address [address] [place] [address] Care Team Providers Care Milk Route Supervisor Name Role Phone Kaylene Brooke MD Primary Care Provider [phone] Farooq Marcus MD Primary Care Provider [phone] Encounter Details Date Type Department Care Team (Late st Contact Info) Description 09/28/2020 Transcribed Document [facility] [place] [facility] [place] [address] ProviderRayray MD [address] [place] [place], [place] [address] Social History Tobacco Use Types Packs/Day Years Used Date Smoking Tobacco: Never Assessed Sex and Gender Information Value Date Recorded Sex Assigned at Not on file Legal Sex Male 5:14 PM CDT Gender Identity Not on file Sexual Orientation Not on file documented as of this encounter Miscellaneous Notes * Cerner Conversion Note - Rayray ProviderMD - 09/28/2020 4:53 PM CDT Patient: RANCHO DEL ANGEL Age: 84 Years Sex: Male : 1935 Admit Date 09/22/2020 16:03 Discharge Date 09/28/2020 Primary Care Provider MAZIN SHERIDAN MD-[facility] Discharge Diagnosis Pancreatitis 09/22/2020 K85.90 ICD-10-CM NSTEMI (non-ST elevated myocardial infarction) 09/22/2020 I21.4 ICD-10-CM Sepsis 09/22/2020 A41.9 ICD-10-CM Studies Reason For Exam Cough REPORT PORTABLE CHEST 09/22/2020 10:11 AM HISTORY: Cough. COMPARISON: 04/21/2014. FINDINGS: The heart is normal in size . A right-sided chest port and left-sided pacemaker are present. There are bibasilar opacities. There is no pneumothorax . The osseous structures are unremarkable . IMPRESSION: Opacities as above, likely secondary to pneumonia. Reason For Exam abd pain and vomiting, [...] prior exam. Follow-up to resolution is recommended. Reason For Exam elevated liver enzymes;ABDOMINAL PAIN [...] with no hydronephrosis. 4. Minimal right effusion. TTE procedure: Echo Doppler Color Flow Velocity, Echo Pulsed +/OR Continuous Wave, Echo 2D W/or W/O M-Mode Imaging , ECHO-2D ECHOCARDIOGRAM-PANEL, EC Echo Complete. Patient Status: Routine IP Study Location: PortableTechnical Quality: Adequate visualization Contrast Medium: Optison. Amount - 2 ml Indications:Elevated troponin. Allergies - NKDA. Impression: Normal sized left ventricle. Normal left [...] cm AO Root:3.07 cm LVPWd: 0.89 cm Contractility Score Normal Left Ventricular contractility was noted. LV regional wall motion: (0-Not visualized 1-Normal 2-Hypokinesis 3-Akinesis 4-Dyskinesis 5-Aneurysm) Left Ventricle Peak E-wave: 0.61 Peak A-wave: 0.76 m/s E/A ratio: 0.81 m/s Volume omigrqkjl157.8 LV length: 6.35 cm ml Volume itifunvo81.41 ml LVOT diameter: 2.06 cm Normal sized left ventricle. Normal left ventricular wall thickness. Visually estimated ejection fraction 50% +/- 5%. Abnormal strain pattern. Indeterminate diastolic function. No left ventricular masses or thrombi. Right Ventricle Diastolic dimension: 3.98 cm Normal sized right ventricle. Normal TAPSE c/w normal right ventricular function Left Atrium LA dimension: 3.55 cm LA volume:80.53 ml LA/Aorta: 1.16 Abnormal left atrial volume index 40.07 ml/m2. Intact atrial septum. No atrial mass or thrombus. Right Atrium Normal sized right atrium. Intact atrial septum. No atrial mass or thrombus. Pacer wire crosses the tricuspid valve. Mitral Valve Deceleration time: 175.08 msec Structurally normal mitral valve. Mild mitral regurgitation. No mitral stenosis. No masses or vegetations seen. Aortic Valve AI P1/2t: 446.98 msec LVOT VTI: 25.93 cm Deceleration time: 1541.3 msec Three cusped aortic valve. Mildly thickend free edges of the aortic valve leaflets. Trace aortic regurgitation. No aortic stenosis. No masses or vegetations seen. Tricuspid Valve Estimated RAP: 3 mmHg Structurally normal tricuspid valve. No tricuspid regurgitation. No tricuspid stenosis. No masses or vegetations seen. Pulmonic Valve Acceleration time: 55.36 msec Structurally normal pulmonic valve. Mild pulmonic regurgitation. No pulmonic stenosis. No masses or vegetations seen. Great Vessels Aorta Aortic Root: 3.07 cm Ascending Aorta: 3.47 cm LVOT Diameter: 2.06 cm Visualized aorta is normal. Normal aortic root. No evidence of dissection. IVC is not well visualized. Pericardium / Pleura No pericardial effusion. Other No masses or thrombi. No intracardiac shunt. Reason for Hospitalization Nausea, Vomiting Hospital Course 84 YO male with history of esophageal cancer on chemotherapy with dr Enciso, last chemo on 09/17, coronary artery disease last with PCI in [facility] about 2 months ago as well as pacemaker for heart rhythm , possibly afib who presented to [facility] on 09/22 for evaluation of abd pain and nausea with vomiting. Patient reported that he has been sick since his [...] have temp of 102 last night. Patient reported that he had LHC with PCI And stent placement about 2 months ago in [facility] he was started on brilinta and aspirin and didnt like how it made me feel thus he stopped taking the brilinta. He had syncopal episode after taking metoprolol and protonix and thus stopped taking those too about 2 weeks ago. He was also hospitalized at [facility] then. He reports significant weight loss as [...] pancreatitis with elevated bilirubin and elevated troponin. Severe sepsis due to pna, resolved -bandemia and lactic acidosis level on admission were both elevated but improved -CXR showed bibasilar opacities [facility]--completed course -Follow up with PCP in 1 week Acute Pancreatitis, resolved -On admission lipase 5,000's -elevated bilirubin noted, pt s/p lap lala per CT scan (pt unaware he had had prior cholecystectomy) -gi consult appreciated, elevated LFTs/pancreatitis likely due to combination of medications/dehydration from chemotherapy. no ercp at this time. -LFT's trending down, lipase trending down -Received IVF -CLD, escalated to low fat diet and tolerating. Denies abd pain, nausea/vomiting Esophageal Cancer - pt of dr enciso, - chemo last week, on 09/17 - Follow up with Dr. Enciso in 2-4 weeks NSTEMI (Type 2) -Likely demand ischemia in the setting of pancreatitis -trops .7-->.6-->.2 -TTE - EF 50-55% -Cardio consulted, continue asp, Plavix added as pt had recent PCI -Needs to follow up with Cardio in 2-4 weeks Hypokalemia Replace PRN Monitor Normocytic Anemia Hgb 7-8 range Monitor CAD -per pt s/p LHC and PCI [address] topete done at [facility] -pt stopped taking brilinta on his own accord shortly after the PCI as it was making him sob -on aspirin 81 mg daily. plavix started here syncope 2 weeks ago two weeks prior to admission, was at [facility] for this stay Depression -start on antidepressant, (they couldn't give any more info), last week with dr enciso 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 -follows with dr topete and dr COSTA in [place] Vital Signs T: 36.6 ??C TMIN: 36.6 ??C TMAX: 37 ??C HR: 74(Monitored) RR: 16 BP: 127/58 SpO2: 96% Oxygen Settings (Last) Oxygen Therapy Mode: Room air (09/28/20 10:15:00) Oxygen Flow Rate: 2 Liter/Min (09/26/20 07:05:00) Physical Exam Physical Exam General: [Alert and oriented, NAD]. [...] appropriate mood and affect]. Discharge Disposition Home with Home Care Discharge Follow Up MAZIN SHERIDAN MD-[facility] - Within 5 to 7 days JALEN ENCISO MD-ON[facility] - Within 2 to 4 weeks Discharge Medications (5) Active aspirin 81 mg, Oral, Daily clopidogrel 75 mg oral tablet 75 mg = 1 Tab, Oral, Daily LORazepam 1 mg, Oral, TID multivitamin 1 Tab, Oral, Daily Pepcid 20 mg oral tablet 20 mg = 1 Tab, Oral, Daily Code Status Start: 09/22/20 17:15:00 EDT, Full Code, Continuous Order Condition on Discharge Improved, Stable Consulting Physicians JALEN ENCISO MD-ONC (known rayray patient with esophgeal cancer now with n/v.) NATE KINNEY MD Current Diet Order Diet, Adult - Ordered -- Start: 09/26/20 10:33:00 EDT, Low Fat Diet, Isolation: Standard Precautions Patient Discharge Summary Orders Discharge Activity: Discharge Activity: Activity as tolerated Diet: Discharge Diet: Resume usual diet as tolerated Pending Labs Ordered CBC w/ Auto Diff Specimen Type: Blood, AM Draw collect, 09/24/20 4:00:00 EDT, Daily, Nurse Collect Time Spent on Discharge 35 min. documented in this encounter Plan of Treatment Upcoming Encounters Date Type Department Care Team (Late st Contact Info) Description 11/24/2024 2:00 PM EDT Office Visit [facility] - [place] [address] [place] [address] Jalen Enciso MD [address] [place] [address] documented as of this encounter Visit Diagnoses Not on filedocumented in this encounter Care Teams Milk Route Supervisor Relationship Specialty Start Date End Date Kaylene Brooke MD [address] [place] [address] PCP - General General Internal Medicine 01/27/22 Farooq Marcus MD [facility] [place] [address] PCP - General Family Medicine 02/27/22 documented as of this encounter
--- OUTSIDE RECORDS SUMMARY | 2024-11-21 21:26 | XMS_ITS | Encounter Summary ---
Author Organization [employer] ([place], [place], [place], [place]) Address [address] [place] [address] Care Team Providers Care Tying Machine Operator Lumber Name Role Phone Kaylene Brooke MD Primary Care Provider [phone] Farooq Marcus MD Primary Care Provider [phone] Encounter Details Date Type Department Care Team (Late st Contact Info) Description 09/08/2020 Transcribed Document [facility] [place] Family Medicine [facility] [place] [address] ProviderRayray MD [address] [place] [address] Social History Tobacco Use Types Packs/Day Years Used Date Smoking Tobacco: Never Assessed Sex and Gender Information Value Date Recorded Sex Assigned at Not on file Legal Sex Male 5:14 PM CDT Gender Identity Not on file Sexual Orientation Not on file documented as of this encounter Miscellaneous Notes * Cerner Conversion Note - Rayray San MD - 09/08/2020 10:37 AM CDT Patient: DOYLE DEL ANGEL Age: 84 years Sex: Male : 1935 Associated Diagnoses: None Author: TRUDY COOK MD-RAD Pre-OP/Procedure Diagnosis: _Esophageal Cancer Indication: Need for iv treatment Procedure Performed: Dual lumen Power Port placement Procedural MD: Elizabeth Administrative Support Specialist: None Sedation: IV Conscious Sedation Findings: Successful Right IJ Power Port placement with ultrasound and fluroscopy guidance. Complications: None EBL: Minimal Specimen(s) Removed: None Full report to follow. documented in this encounter Plan of Treatment Upcoming Encounters Date Type Department Care Team (Late st Contact Info) Description 11/24/2024 2:00 PM EDT Office Visit [facility] - [address] [place] [address] Jalen Enciso MD [address] [place] [address] documented as of this encounter Visit Diagnoses Not on filedocumented in this encounter Care Teams Tying Machine Operator Lumber Relationship Specialty Start Date End Date Kaylene Brooke MD [address] [place] [address] PCP - General General Internal Medicine 01/27/22 Farooq Marcus MD [address] [place] [address] PCP - General Family Medicine 02/27/22 documented as of this encounter
--- OUTSIDE RECORDS SUMMARY | 2024-11-21 21:26 | XMS_ITS | Encounter Summary ---
Author Organization [employer] ([place], [place], [place], [place]) Address [address] [place] [address] Care Team Providers Care Aircraft Log Clerk Name Role Phone Kaylene Brooke MD Primary Care Provider Farooq Marcus MD Primary Care Provider Encounter Details Date Type Department Care Team (Late st Contact Info) Description 09/08/2020 Transcribed Document [facility] [place] [address] [place] [address] Rayray San MD [address] [place] [address] Social History Tobacco Use Types Packs/Day Years Used Date Smoking Tobacco: Never Assessed Sex and Gender Information Value Date Recorded Sex Assigned at Not on file Legal Sex Male 5:14 PM CDT Gender Identity Not on file Sexual Orientation Not on file documented as of this encounter Miscellaneous Notes * Cerner Conversion Note - Rayray San MD - 09/08/2020 9:02 AM CDT Patient Education Materials Follows: FAQ - Patient COVID-19 testing Why do I need [...] patients who test positive for COVID-19. If I'm a patient, should I wear a mask? [...] through the local health department and the [place] Department for Public Health. Those organizations are [...] need during a recommended self-quarantine period. The patient's name is not revealed to anyone during the contact tracing interviews, even if a contact asks. Who would be considered a close contact ? According to the CDC, a close [...] a face covering and maintain social distancing - at least 6 feet from others at [...] and need to call 911, notify the catalyst operator chief that you have, or think you might [...] others. You should stay in a specific sick room if possible, and away from other people [...] (including before you enter a health care provider's office). ??? If you are caring for [...] clean your hands with an alcohol-based hand labor relations officer that contains at least 60% alcohol. Clean your hands often. ??? Wash hands: Wash your hands often with soap and water for at least 20 seconds when visibly dirty. This is especially important after blowing your nose, coughing or sneezing, and going to the bathroom, and before eating or preparing food. ??? Hand labor relations officer: Use an alcohol-based hand labor relations officer with at least 60% alcohol, covering all [...] and water or put them in the brim and crown presser. Clean all high-touch surfaces every day. Clean high-touch surfaces in your isolation area ( sick room and bathroom) every day; let a caregiver clean and disinfect high-touch surfaces in other areas of the home. ??? Clean and disinfect: Routinely clean high-touch surfaces in your sick room and bathroom. Let someone else clean and disinfect surfaces in common areas, but not your bedroom and bathroom. ? If a caregiver or other person needs to clean and disinfect a sick person's bedroom or bathroom, they should do so [...] or body fluids on them. ??? Household canal tender and disinfectants: Clean the area or item with soap and water or another detergent if it is dirty. Then, use a household disinfectant. ?? Be sure to follow the instructions on the label to ensure safe and effective use of the product. Many products recommend keeping the surface wet for several minutes to ensure germs are killed. Many also recommend precautions such as wearing gloves and making sure you have good ventilation during use of the product. ?? Most EPA-registered household disinfectants should be effective. A full list of disinfectants can be found here: https://www.epa.gov/pesticide-registration/ugzb-f-ehlkqnuacyrjg-olf-vgotdao-du rs-cov-2 Oncology Implanted Port Insertion, Care After This sheet [...] over the port. This should improve over 3?4 days. Follow these instructions at home: Port care ??? After your port is placed, you will get a sales and marketing director's information card. The card has information about [...] and water are not available, use hand labor relations officer. ? Change your dressing as told by [...] it is safe. General instructions ??? Take xwut-rzm-lqyxqvb and prescription medicines only as told by [...] by your health care provider. Keep the sales and marketing director's information card with you at all times. [...] provider. Document Revised: 09/24/2018 Document Reviewed: 09/24/2018 [employer]/ Patient Education ? 2020 [employer] Pharmacology Moderate Conscious Sedation, Adult, Care After These [...] you are awake and alert. ??? Take fogq-nvb-jhdchha and prescription medicines only as told by [...] provider. Document Revised: 02/08/2018 Document Reviewed: 06/17/2016 [employer]/ Patient Education ? 2019 [employer]. documented in this encounter Plan of Treatment Upcoming Encounters Date Type Department Care Team (Late st Contact Info) Description 11/24/2024 2:00 PM EDT Office Visit [facility] - [address] [place] [address] Jalen Enciso MD [address] [facility] [address] [place] [address] documented as of this encounter Visit Diagnoses Not on filedocumented in this encounter Care Teams Aircraft Log Clerk Relationship Specialty Start Date End Date Kaylene Brooke MD [address] [place] [address] PCP - General General Internal Medicine 01/27/22 Farooq Marcus MD [address] [place] [address] PCP - General Family Medicine 02/27/22 documented as of this encounter
--- OUTSIDE RECORDS SUMMARY | 2024-11-21 21:26 | XMS_ITS | Encounter Summary ---
Author Organization [employer] ([place], [place], [place], [place]) Address [address] [place] [address] Care Team Providers Care Baseball Coach Name Role Phone Kaylene Brooke MD Primary Care Provider [phone] Farooq Marcus MD Primary Care Provider [phone] Encounter Details Date Type Department Care Team (Late st Contact Info) Description 09/27/2020 Transcribed Document [facility] [place] Family Medicine [address] [place] [address] ProviderRayray MD [address] [place], [place] [address] Social History Tobacco Use Types Packs/Day Years Used Date Smoking Tobacco: Never Assessed Sex and Gender Information Value Date Recorded Sex Assigned at Not on file Legal Sex Male 5:14 PM CDT Gender Identity Not on file Sexual Orientation Not on file documented as of this encounter Miscellaneous Notes * Cerner Conversion Note - Rayray San MD - 09/27/2020 8:16 AM CDT Patient: DOYLE DEL ANGEL Age: 84 years Sex: Male : 1935 Associated Diagnoses: None Author: JALEN ENCISO MD-ONC Attachments: None Subjective Chief complaint Chief complaint Continues to feel better. He is developing some oedema. Breathing stable and is ambulating Health Status Allergies Allergies (1) Active Reaction [...] 100 mL 3.375 Gram, IV Piggyback, Q6HInt potassium chloride CR 10 mEq tab 40 mEq 4 Tab, Oral, 1-Time senna 8.6 mg tab 8.6 mg 1 [...] and Plan Diagnosis Pancreatitis. GE jct cancer in remission. Course Improving Orders I stopped his IV fluids , hope that's OK. Drinking plenty po. No other recoemndations. . documented in this encounter Plan of Treatment Upcoming Encounters Date Type Department Care Team (Late st Contact Info) Description 11/24/2024 2:00 PM EDT Office Visit [facility] - [address] [place] [address] Jalen Enciso MD [address] [facility] [address] [place] [address] documented as of this encounter Visit Diagnoses Not on filedocumented in this encounter Care Teams Baseball Coach Relationship Specialty Start Date End Date Kaylene Brooke MD [address] [place] [address] PCP - General General Internal Medicine 01/27/22 Farooq Marcus MD [address] [place] [address] PCP - General Family Medicine 02/27/22 documented as of this encounter
== END 2024-11-21 20:50 | disposition left against medical advice (07) ==
LOC: ER 21:21
PROVIDERS: Emergency Provider Student in an Organized Health Care Education/Training Program; PCP Family Medicine
DX: R00.0 Tachycardia, unspecified (principal); Z53.29 Procedure and treatment not carried out because of patient's decision for other reasons
CPT/HCPCS: 99211

== ENCOUNTER 2024-12-02 16:01 | Outpatient (CLI) | payer MEDICARE, SELFPAY ==
--- OUTSIDE RECORDS SUMMARY | 2024-12-02 16:05 | XMS_ITS | Clinical Summary ---
Author Organization Healthcare Address [address] [place] [address] Care Team Providers Care Pharmacy Picking Technician Name Role Phone Adriana Felder APRN Primary Care Provider [phone] Social History Tobacco Use Types Packs/Day Years [...] or (1 - 1-dose 75+ series) 2012 [id number] Vaccine (4 - 2024- season) 2024 11/10/2020, [...] age to complete this topic Insurance MEDICARE [facility]LY [facility] Care Teams Pharmacy Picking Technician Relationship Specialty Start Date End Date Adriana Felder APRN [address] [place] [address] PCP - General 07/23/20
== END 2024-12-02 23:59 | disposition home or self-care (01) ==
LOC: RT 16:02
PROVIDERS: PCP Family Medicine; Visit Provider Physician Assistant
DX: I49.8 Other specified cardiac arrhythmias (principal); I49.1 Atrial premature depolarization; I49.3 Ventricular premature depolarization; I47.29 Other ventricular tachycardia; I25.10 Atherosclerotic heart disease of native coronary artery without angina pectoris; I50.20 Unspecified systolic (congestive) heart failure
CPT/HCPCS: 93270

== ENCOUNTER 2024-12-09 14:41 | Outpatient (CLI) | payer MEDICARE, SELFPAY ==
--- OUTSIDE RECORDS SUMMARY | 2024-12-09 14:44 | XMS_ITS | Clinical Summary ---
Author Organization Healthcare Address [address] [place] [address] Care Team Providers Care Director Of Product Marketing Name Role Phone Adriana Felder APRN Primary Care Provider [phone] Social History Tobacco Use Types Packs/Day Years [...] or (1 - 1-dose 75+ series) 2012 [id number] Vaccine (4 - 2024- season) 2024 11/10/2020, [...] age to complete this topic [place] [address] [facility] Care Teams Director Of Product Marketing Relationship Specialty Start Date End Date Adriana Felder APRN [address] [place] [address] PCP - General 07/23/20
[2024-12-09 16:24] LABS: Hematocrit 42.0 % (42.0-52.0); Hemoglobin 13.8 g/dL (14.1-18.0); Immature Granulocytes % 0.6 %; Mean Corpuscular HGB Conc 32.9 g/dL (31.8-35.4); Mean Corpuscular Hemoglobin 31.2 pg (27.0-31.2); Mean Corpuscular Volume 94.8 fl (80-94); Nucleated Red Blood Cells % 0 %; Platelet Count 169 K/mm3 (142-424); Red Blood Count 4.43 M/mm3 (4.60-6.20); Red Cell Distribution Width-SD 45.0 fL; White Blood Count 8.9 K/mm3 (4.8-10.8)
[2024-12-09 17:08] LABS: Alanine Aminotransferase 25 U/L (12-78); Albumin Level 3.3 g/dl (3.5-5.0); Albumin/Globulin Ratio 1.2 (1.1-1.8); Alkaline Phosphatase 116 U/L (38-126); Anion Gap 11.3 mEq/L (5-15); Aspartate Amino Transferase 24 U/L (17-59); Bilirubin,Total 1.0 mg/dl (0.2-1.3); Blood Urea Nitrogen 27 mg/dl (9-20); Calcium 9.0 mg/dl (8.4-10.2); Carbon Dioxide 25 mmol/L (22.0-30.0); Chloride 106 mmol/L (98-107); Creatinine,Serum 1.20 mg/dl (0.66-1.25); Estimated Glomerular Filt Rate 57 ml/min (>60); GFR (African American) 69 ML/MIN (>60); Globulin 2.8 g/dL (1.3-3.2); Glucose 80 mg/dl (74-100); Potassium 4.3 mmoL/L (3.5-5.1); Sodium 138 mmol/L (136-145); Total Protein,Serum 6.1 g/dl (6.3-8.2)
== END 2024-12-09 23:59 | disposition home or self-care (01) ==
LOC: LAB 14:42
PROVIDERS: PCP Family Medicine; Visit Provider Internal Medicine Medical Oncology
DX: C15.4 Malignant neoplasm of middle third of esophagus (principal)
CPT/HCPCS: 36415; 80053; 85025

== ENCOUNTER 2024-12-11 07:42 | Outpatient (CLI) | payer MEDICARE, SELFPAY ==
--- OUTSIDE RECORDS SUMMARY | 2024-12-11 07:45 | XMS_ITS | Clinical Summary ---
Author Organization Healthcare Address [address] [place] [address] Care Team Providers Care Homicide Investigator Name Role Phone Adriana Felder APRN Primary Care Provider [phone] Social History Tobacco Use Types Packs/Day Years [...] Date Last Done Comments [facility]-Depression Screening 1935 [facility]-/Child/Adol SDOH Screenings 1935 [facility]- SDOH Screenings 12/02/1955 [facility]-Adult SDOH Screenings 12/02/1955 [facility]-Pneumococcal Vaccine: 50+ Years (1 of 1 - PCV) 12/02/1987 [facility]-Zoster Vaccines (1 of 2) 12/02/1987 [facility]-RSV Vaccine: 60+ Years or (1 - 1-dose 75+ series) 2012 [id number] Vaccine (4 - 2024- season) 2024 11/10/2020, [...] age to complete this topic Insurance MEDICARE [facility] Care Teams Homicide Investigator Relationship Specialty Start Date End Date Adriana Felder APRN [address] [place] [address] PCP - General 07/23/20
--- NOTE | 2024-12-11 08:00 | CA_ITS ---
APPROVED REPORT EXAM: Comprehensive 2D, Doppler, and color-flow Echocardiogram Kerfer Machine Operator: Eleni Lund CRT Ht: 6 ft 0 in Wt: 169lbs BSA: 1.98 BP: 137/68 mmHg Indications: Chest Pain, Shortness of Breath, Palpitations, Fatigue, Peripheral Edema, Hyperlipidemia, Hypertension/HDD, AICD, stent HX Esophageal ca chemo/radiation 5 yrs ago, hx of stress cardiomyopathy 2D Dimensions LA Volume 46.20 mL LA Volume Index 22.80 mL/m2 (M/F) 16-34 M-Mode Dimensions RVDd 2.55 cm (0.9-2.6) LA Diam 4.08 cm (1.9-4.0) LVDd 5.61 cm (3.5-5.7) LVDs 4.66 cm (3.5-5.7) IVSd 1.47 cm (0.6-1.1) PWd 1.48 cm (0.6-1.1) EF (Teich) 35.00% FS 16.90% EDV (Teich) 154.30 mL TAPSE 2.08 (<1.7) ESV (Teich) 100.30 mL LV Diastology E Decel Time 127 (160-240 msec) E/A Ratio 0.70 MED A' 11.30 cm/s LAT A' 11.20 cm/s Aortic Valve AI PHT 635.00 ms AO Peak GR. 4.00 mmHg Mitral Valve MV A Velocity 97.0 (40-130 cm/s) E/A Ratio 0.70 Pulmonary Valve PV Peak Velocity 155.0 (50-150 cm/s) Tricuspid Valve TR P. Velocity 203.00 cm/s RAP Estimate 10.00 mmHg RVSP 26.50 mmHg Left Ventricle The left ventricle is normal size. Left ventricular systolic function is low normal. There is normal left ventricular wall thickness. There is normal LV segmental wall motion. The left ventricular diastolic function is normal. LVEF is 50% Right Ventricle The right ventricle is mildly dilated. The right ventricular systolic function is normal. There is a device lead in the right ventricle. Atria The left atrium is mildly dilated. The right atrium is mildly dilated. There is no color Doppler evidence of interatrial shunt. Aortic Valve The aortic valve is mildly thickened. There is no hemodynamically significant aortic valvular stenosis. Mild aortic regurgitation is present. Mitral Valve The mitral valve is mildly thickened. There is possible bileaflet mitral valve prolapse present. No evidence of mitral valve stenosis. Mild mitral regurgitation is present. The MR jet is eccentric and posteriorly directed. The MR severity may be underestimated due to eccentric jet. Tricuspid Valve The tricuspid valve leaflets are thin and pliable. Mild tricuspid regurgitation. RVSP is 20-25 mmHg. Pulmonic Valve The pulmonary valve is grossly normal in structure. Trace pulmonic valve regurgitation is present. Great Vessels The aortic root is normal in size. IVC is normal in size and collapses >50% with inspiration. Pericardium There is no pericardial effusion. Other Information Study Quality: Fair Conclusion Low normal LV systolic function (LVEF 50%). Mild RV dilation. Mild biatrial dilation. Mild MR (eccentric jet - possible bileaflet MV prolapse), mild AI, mild TR. Electronically signed by : Cici Garza MD 12/12/2024 23:04:45
== END 2024-12-11 23:59 | disposition home or self-care (01) ==
LOC: RT 07:43
PROVIDERS: PCP Family Medicine; Visit Provider Physician Assistant
DX: I08.3 Combined rheumatic disorders of mitral, aortic and tricuspid valves (principal); I11.0 Hypertensive heart disease with heart failure; I50.20 Unspecified systolic (congestive) heart failure; I25.10 Atherosclerotic heart disease of native coronary artery without angina pectoris; E78.5 Hyperlipidemia, unspecified; Z95.810 Presence of automatic (implantable) cardiac defibrillator
CPT/HCPCS: 93306

== ENCOUNTER 2024-12-12 10:37 | Outpatient (CLI) | payer MEDICARE, SELFPAY ==
--- OUTSIDE RECORDS SUMMARY | 2024-11-24 14:00 | XMS_ITS | Encounter Summary ---
Author Organization [employer] ([place], [place], [place], [place]) Address [address] [place] [address] Care Team Providers Care Electrical Products Sales Engineer Name Role Phone Farooq Marcus MD Primary Care Provider [phone] Reason for Visit * Reason Comments Follow-up Adenocarcinoma of gastroesophageal junct ion Encounter Details Date Type Department Care Team (Latest Contact Info) Description 11/24/2024 2:00 PM EDT [facility] [address] [facility] [address] [place] [address] Jalen Enciso MD [address] [facility] [address] [place] [address] Adenocarcinoma of gastroesophageal junction (HCC) [...] Date Scotty rded Speak language other than [place]an at home Not on file 03/22/2023 Want [...] 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 [address] PCP - General Family Medicine 02/27/22 documented as of this encounter
--- OUTSIDE RECORDS SUMMARY | 2024-12-12 10:39 | XMS_ITS | Encounter Summary ---
Author Organization [employer] ([place], [place], [place], [place]) Address [address] [place] [address] Care Team Providers Care Felling Machine Operator Name Role Phone Kaylene Brooke MD Primary Care Provider [phone] Farooq Marcus MD Primary Care Provider [phone] Encounter Details Date Type Department Care Team (Late st Contact Info) Description 10/09/2020 Transcribed Document [facility] Family Medicine [facility] [address] ProviderRayray MD [address] [place] [address] Social History Tobacco Use Types Packs/Day Years [...] EDT Height Source Stated Height Entry Format [place] Height/Length, PALESTINIAN (ft) 6 ft Height/Length PALESTINIAN 0 Inch CLINICALHEIGHT 182.88 cm [place] Body Weight 76.59 kg Weight Source, ED Critical estimated dosing weight Weight Entry Format [place] Weight Polish lb 150 lb CLINICALWEIGHT 68.18 kg Body [...] Triage: ED C-SSRS: ED Clinical Reconciliation: ED truck body builder: Magnesium Level: Normal Saline Bolus: 1,000 mL, [...] Color Yellow Urine Appearance Clear Urine Specific [place] 1.014 Urine pH Dipstick *8.0 Urine Leukocyte [...] % LOW ALYC # 0 K/uL NA [place] Percent Man 15 % HI Eos Percent [...] Description 05/25/2025 10:45 AM EDT Office Visit [facility] On[facility] [address] [place] [address] Jalen Enciso MD [address] [place] [address] documented as of this encounter Visit Diagnoses Not on filedocumented in this encounter Care Teams Felling Machine Operator Relationship Specialty Start Date End Date Kaylene Brooke MD [address] [place] [address] PCP - General General Internal Medicine 01/27/22 Farooq Marcus MD [address] [place] [address] PCP - General Family Medicine 02/27/22 documented as of this encounter
--- OUTSIDE RECORDS SUMMARY | 2024-12-12 10:39 | XMS_ITS | Encounter Summary ---
Author Organization [employer] ([place], [place], [place], [place]) Address [address] [place] [address] Care Team Providers Care Scientific Technical Writer Name Role Phone Kaylene Brooke MD Primary Care Provider [phone] Farooq Marcus MD Primary Care Provider [phone] Encounter Details Date Type Department Care Team (Late st Contact Info) Description 10/09/2020 Transcribed Document [facility] [place] Family [place] [address] ProviderRayray MD [address] [place] [address] Social History Tobacco Use Types Packs/Day Years [...] : 3 - Urgent Tracking Group : [facility] ED CHRISTIANO SANTIAGO RN-Resource - 10/09/2020 [...] 12:29:06 EDT) Problems(Active) Anxiety disorder (SNOMED CT :400847741 ) Name of Problem: Anxiety disorder ; Recorder: ERIKA AKERS APRN-INT; Confirmation: Confirmed ; Classification: Medical ; Code: [id number] ; Contributor System: batterii ; Last Updated: 04/22/2014 0:56 EST ; Life Cycle Date: 04/22/2014 ; Life Cycle Status: Active ; Responsible Provider: ERIKA AKERS APRN-INT; Vocabulary: SNOMED CT At risk for sleep apnea (IMO :60887457 ) Name of Problem: At risk for sleep apnea ; Recorder: SYSTEM, SYSTEM; Confirmation: Confirmed ; Classification: Medical ; Code: [id number] ; Last Updated: 09/08/2020 8:44 EDT ; Life Cycle Date: 09/08/2020 ; Life Cycle Status: Active ; Vocabulary: IMO Chest pain with high risk for cardiac etiology (SNOMED CT :64690615 ) Name of Problem: Chest pain with high risk for cardiac etiology ; Recorder: ERIKA AKERS APRN-INT; Confirmation: Confirmed ; Classification: Medical ; Code: [id number] ; Contributor System: AnadysChart ; Last Updated: 04/22/2014 0:56 EST ; Life Cycle Status: Active ; Responsible Provider: ERIKA AKERS APRN-INT; Vocabulary: SNOMED CT Esophagus cancer (SNOMED CT :204817297 ) Name of Problem: Esophagus cancer ; Recorder: JUVE GILBERT Rn-Clinical Coordinator I; Confirmation: Confirmed ; Classification: Patient Stated ; Code: [id number] ; Contributor System: PowerChart ; Last Updated: 09/08/2020 8:36 EDT ; Life Cycle Date: 09/08/2020 ; Life Cycle Status: Active ; Vocabulary: SNOMED CT Hyperlipidemia (SNOMED CT :45164965 ) Name of Problem: Hyperlipidemia ; Recorder: ERIKA BOYER MD-EMR; Confirmation: Confirmed ; Classification: Medical ; Code: 44112517 ; Contributor System: PowerChart ; Last Updated: 04/21/2014 20:55 EST ; Life Cycle Date: 04/21/2014 ; Life Cycle Status: Active ; Responsible Provider: ERIKA BOYER MD-EMR; Vocabulary: SNOMED CT Leg neuralgia (SNOMED CT :19826832 ) Name of Problem: Leg neuralgia ; Recorder: ERIKA AKERS APRN-INT; Confirmation: Confirmed ; Classification: Medical ; Code: 51002167 ; Contributor System: PowerChart ; Last Updated: 04/22/2014 0:56 EST ; Life Cycle Date: 04/22/2014 ; Life Cycle Status: Active ; Responsible Provider: ERIKA AKERS APRN-INT; Vocabulary: SNOMED CT Myocardial infarction (SNOMED CT :47010716 ) Name of Problem: Myocardial infarction ; Recorder: JUVE GILBERT Rn-Clinical Coordinator I; Confirmation: Confirmed ; Classification: Patient Stated ; Code: [id number] ; Contributor System: batterii ; Last Updated: 09/08/2020 8:36 EDT ; Life Cycle Date: 09/08/2020 ; Life Cycle Status: Active ; Vocabulary: SNOMED CT Diagnoses(Active) Vomiting Date: 10/09/2020 ; Diagnosis Type: Reason For Visit ; Confirmation: Complaint of ; Clinical Dx: Vomiting ; Classification: Medical ; Clinical Service: Emergency medicine ; Code: PNED ; Probability: 0 ; Diagnosis Code: [id number] ED Height and Weight Height Source : Stated Height Entry Format : [place] Height, Feet : 6 ft(Converted to: 183 cm, 72 Inch) Height, Inches : 0 Inch(Converted to: 0 ft 0 Inch, 0.00 cm) Clinical Height : 182.88 cm Weight Source, ED : Critical estimated dosing weight Weight Entry Format : [place] Weight, Pounds : 150 lb Clinical Dosing Weight : 68.18 kg Body Surface Area (BSA) : 1.89 m2 Body Mass Index : 20.4 kg/m2 [place] Body Weight (IBW) : 76.59 kg CHRISTIANO SANTIAGO RN-Resource - 10/09/2020 12:24 EDT Electronically signed by Nidia [facility] Conversion Building Maintenance Technician Cerner at 06/29/2022 2:18 PM CDT documented in this encounter Plan of Treatment Upcoming Encounters Date Type Department Care Team (Late st Contact Info) Description 05/25/2025 10:45 AM EDT Office Visit [facility] - [place] [address] [place] [address] Jalen Enciso MD [address] [place] [address] documented as of this encounter Visit Diagnoses Not on filedocumented in this encounter Care Teams Scientific Technical Writer Relationship Specialty Start Date End Date Kaylene Brooke MD [address] [place] [address] PCP - General General Internal Medicine 01/27/22 Farooq Marcus MD [address] [place] [address] PCP - General Family Medicine 02/27/22 documented as of this encounter
--- OUTSIDE RECORDS SUMMARY | 2024-12-12 10:39 | XMS_ITS | Encounter Summary ---
Author Organization [employer] ([place], [place], [place], [place]) Address [address] [place] [address] Care Team Providers Care Health Associate Name Role Phone Kaylene Brooke MD Primary Care Provider [phone] Farooq Marcus MD Primary Care Provider [phone] Encounter Details Date Type Department Care Team (Late st Contact Info) Description 10/09/2020 Transcribed Document [facility] [place] [address] ProviderRayray MD [address] [place] [address] Social History Tobacco Use Types Packs/Day Years [...] Will notify Primary Care Provider MAZIN SHERIDAN [facility] of change in care plan. Will look at further interventions as needed. Code Status: At this time patient wishes to be Code Status Start: 10/09/20 16:33:00 EDT, Full Code, Continuous Order Time Spent with Patient: [ 17] minutes Electronically signed by [facility] Conversion Bull Float Finisher Cerner at 06/29/2022 2:19 PM CDT documented in this encounter Plan of Treatment Upcoming Encounters Date Type Department Care Team (Late st Contact Info) Description 05/25/2025 10:45 AM EDT Office Visit [place] [facility] - [place] [address] [facility] [address] [place] [address] Jalen Enciso MD [address] [facility] [address] [place] [address] documented as of this encounter Visit Diagnoses Not on filedocumented in this encounter Care Teams Health Associate Relationship Specialty Start Date End Date Kaylene Brooke MD [address] [place] [address] PCP - General General Internal Medicine 01/27/22 Farooq Marcus MD [address] [address] PCP - General Family Medicine 02/27/22 documented as of this encounter
--- OUTSIDE RECORDS SUMMARY | 2024-12-12 10:39 | XMS_ITS | Encounter Summary ---
Author Organization [employer] ([place], [place], [place], [place]) Address [address] [place] [address] Care Team Providers Care Cultured Marble Products Maker Name Role Phone Kaylene Brooke MD Primary Care Provider [phone] Farooq Marcus MD Primary Care Provider [phone] Encounter Details Date Type Department Care Team (Late st Contact Info) Description 10/01/2020 Transcribed Document [facility] Family Medicine [facility] [place] [address] ProviderRayray MD [address] [place] [address] Social History Tobacco Use Types Packs/Day Years [...] 10/01/2020 14:30 EDT by KEISHA RIVERA Mkt Content Curator-Utilization Mgt Final Discharge Planning Discharge Arrangements : Patient Post-Acute Information Patient Name: DOYLE DEL ANGEL Gender: Male : [birth year] Age: 84 Years No Post-Acute Placement(s) Listed No Post-Acute Service(s) Listed No Curaspan Referral(s) Listed Discharge To Care Management : Home Health Services (Related/SOC within 3 days)-06 KEISHA RIVERA Mkt Content Curator-Utilization Mgt - 10/01/2020 14:30 EDT Electronically signed by Boo Jacob Conversion Cutter And Paster Press Clippings Cerner at 06/29/2022 2:17 PM CDT documented in this encounter Plan of Treatment Upcoming Encounters Date Type Department Care Team (Late st Contact Info) Description 05/25/2025 10:45 AM EDT Office Visit [place] [facility] - [place] [address] [place] [address] Jalen Enciso MD [address] [place] [address] documented as of this encounter Visit Diagnoses Not on filedocumented in this encounter Care Teams Cultured Marble Products Maker Relationship Specialty Start Date End Date Kaylene Brooke MD [address] [place] [address] PCP - General General Internal Medicine 01/27/22 Farooq Marcus MD [address] [place] [address] PCP - General Family Medicine 02/27/22 documented as of this encounter
--- OUTSIDE RECORDS SUMMARY | 2024-12-12 10:40 | XMS_ITS | Encounter Summary ---
Author Organization [employer] ([place], [place], [place], [place]) Address [address] [place] [address] Care Team Providers Care Pipeline Controller Name Role Phone Kaylene Brooke MD Primary Care Provider [phone] Farooq Marcus MD Primary Care Provider [phone] Encounter Details Date Type Department Care Team (Late st Contact Info) Description 09/22/2020 Transcribed Document [facility] Family Medicine [facility] [place] [address] ProviderRayray MD [address] [place] [address] Social History Tobacco Use Types Packs/Day Years [...] Description 05/25/2025 10:45 AM EDT Office Visit [place] [facility] - [place] [place] [address] Jalen Enciso MD [address] [place] [address] documented as of this encounter Visit Diagnoses Not on filedocumented in this encounter Care Teams Pipeline Controller Relationship Specialty Start Date End Date MendyKaylene dunn MD [address] [place] [address] PCP - General General Internal Medicine 01/27/22 Farooq Marcus MD [address] [place] [address] PCP - General Family Medicine 02/27/22 documented as of this encounter
--- OUTSIDE RECORDS SUMMARY | 2024-12-12 10:40 | XMS_ITS | Encounter Summary ---
Author Organization [employer] ([place], [place], [place], [place]) Address [address] [place] [address] Care Team Providers Care Tobacco Dipper Name Role Phone Kaylene Brooke MD Primary Care Provider [phone] Farooq Marcus MD Primary Care Provider [phone] Encounter Details Date Type Department Care Team (Late st Contact Info) Description 09/28/2020 Transcribed Document [facility] Family Medicine [facility] [place] [address] ProviderRayray MD [address] [place] [address] Social History Tobacco Use Types [...] San MD - 09/28/2020 5:10 PM CDT [facility] [place] [id number] DOYLE DEL ANGEL :1935 Visit Time:09/22/2020 Your Visit Summary Your Care Team Admitting Physician - CRISTINA LUNDBERG, Attending Physician - CRISTINA LUNDBERG, Primary Care Physician - MAZIN SHERIDAN [facility] Referring Physician - Jeannine, NOT LISTED Your [...] weeks Comments oncology follow up Where: [address] [facility] [address] [place] [address]- Follow Up with MAZIN SHERIDAN MD-[facility] When Within 5 to 7 days Comments PCP follow up Where: [address] [place] [address]- Medications What How Much When Instructions Next Dose clopidogrel (clopidogrel 75 mg oral tablet) 1 Tablet(s) Oral Every Day Duration: 30 Day(s) Pickup at [facility] famotidine (Pepcid 20 mg oral tablet) 1 Tablet(s) Oral Every Day Duration: 30 Day(s) Refills: 1 Pickup at [facility] aspirin 81 Milligram(s) Oral Every Day LORazepam 1 Milligram(s) Oral Three Times A Day multivitamin 1 Tablet(s) Oral Every Day Pharmacy Information [facility]: [address] [facility] [address] [place], [place] [id number] [phone] Take your medications faithfully. Do NOT skip [...] caused your condition. General instructions ??? Take xotl-cnd-owqtrfe and prescription medicines only as told by your health care provider. ??? Do not drive or use heavy machinery while taking prescription pain medicine. ??? Ask your health care provider if the medicine prescribed to you can cause constipation. You may need to take steps to prevent or treat constipation, such as: ? Take an urle-ukc-wmvzpcj or prescription medicine for constipation. ? Eat [...] provider. Document Revised: 12/16/2018 Document Reviewed: 09/02/2018 [employer] Patient Education ?? 2020 [employer] Emergency Awareness and Preventative Care STROKE [...] Assistance with quitting is available by contacting 5-866-TVJF-NOW. This is a free resource providing counseling, [...] and 14.9 ) ANC #: 4 K/uL [place] Percent Man: 14 % -- Normal range [...] 0 and 1 ) 09/26/2020 6:05 AM [place] Percent Man: 1 % -- Normal range between ( 0 and 1 ) 09/24/2020 5:26 AM Eos %: 1.4 % -- Normal range between ( 0.0 and 7.0 ) [place] #: 0.32 K/uL -- Normal range between ( 0.16 and 1.00 ) Eos #: 0.09 x10(3)/uL -- Normal range between ( 0.00 and 0.80 ) [place] %: 4.9 % -- Normal range between [...] ) Urine Bilirubin Dipstick: Small Urine Specific [place]: 1.016 -- Normal range between ( 1.005 [...] was given the opportunity to ask questions. Patient/Cattle Tester Name: Patient/Cattle Tester Signature: Relationship to Patient: Clinician/Hospital Cattle Tester Signature: Date: documented in this encounter Plan of Treatment Upcoming Encounters Date Type Department Care Team (Late st Contact Info) Description 05/25/2025 10:45 AM EDT Office Visit [place] [facility] - [address] [facility] [address] [place] [address] Jalen Enciso MD [address] [place] [address] documented as of this encounter Visit Diagnoses Not on filedocumented in this encounter Care Teams Tobacco Dipper Relationship Specialty Start Date End Date Kaylene Brooke MD [address] [place] [address] PCP - General General Internal Medicine 01/27/22 Farooq Marcus MD [address] [place] [address] PCP - General Family Medicine 02/27/22 documented as of this encounter
--- OUTSIDE RECORDS SUMMARY | 2024-12-12 10:40 | XMS_ITS | Encounter Summary ---
Author Organization [employer] ([place], [place], [place], [place]) Address [address] [place] [address] Care Team Providers Care Solar Panel Installation Supervisor Name Role Phone Kaylene Brooke MD Primary Care Provider [phone] Farooq Marcus MD Primary Care Provider [phone] Encounter Details Date Type Department Care Team (Late st Contact Info) Description 09/28/2020 Transcribed Document [facility] [place] [facility] [place] [address] ProviderRayray MD [address] [place], [place] [address] Social History Tobacco Use Types Packs/Day Years Used Date Smoking Tobacco: Never Assessed Sex and Gender Information Value Date Recorded Sex Assigned at Not on file Legal Sex Male 5:14 PM CDT Gender Identity Not on file Sexual Orientation Not on file documented as of this encounter Miscellaneous Notes * Cerner Conversion Note - Rayray ProviderMD - 09/28/2020 2:00 AM CDT Candy Department Manager Details Entered On: 09/28/2020 3:18 EDT Performed [...] Description 05/25/2025 10:45 AM EDT Office Visit [place] [facility] - [place] [address] [place] [address] Jalen Enciso MD [address] [place] [address] documented as of this encounter Visit Diagnoses Not on filedocumented in this encounter Care Teams Solar Panel Installation Supervisor Relationship Specialty Start Date End Date MendyKaylene dunn MD [address] [place] [address] PCP - General General Internal Medicine 01/27/22 Farooq Marcus MD [address] [facility] [place] [address] PCP - General Family Medicine 02/27/22 documented as of this encounter
--- OUTSIDE RECORDS SUMMARY | 2024-12-12 10:40 | XMS_ITS | Encounter Summary ---
Author Organization [employer] ([place], [place], [place], [place]) Address [address] [place] [address] Care Team Providers Care Bindery Worker Name Role Phone Kaylene Brooke MD Primary Care Provider [phone] Farooq Marcus MD Primary Care Provider [phone] Encounter Details Date Type Department Care Team (Late st Contact Info) Description 10/10/2020 Transcribed Document [facility] [place] [facility] [place] [address] ProviderRayray MD [address] [place], [place] [id number] Social History Tobacco Use Types Packs/Day Years [...] cancer. Reason for Consultation Palliative needs and [facility] History of Present Illness 84 yo wm presented to ER at [facility] after having worsening N/V. Admitted to observation. [...] Living will on file from 09/23/20 naming [facility] 1 [place] [facility] Sister Georgina Recio Code status: Full Residency before this admission: Lived at home with spouse. ESAS: 0-10 scale: Pain: Dyspnea:+ with exertion Nausea:+ improving Insomnia:+ Constipation:+ Anxiety:+ Agitation: Depression:+ Fatigue:+ Well-being: Appetite:diminished but improving Drowsy: PRN Medication: Doses/24hours: Pain: Anxiety/Agitation: Ativan 1mg TID scheduled Dyspnea: Nausea: Zofran 8mg x1, Phenergan none DIVISION TRAFFIC SUPERINTENDENT: Basal Bolus Review of Systems Constitutional: no [...] Has had anxiety issues for many years. 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 Scheduled Ativan 1mg TID not helping much per pt report. Consider longer acting med or different antidepressant if persists. Discussed with Mile Willams PA-C. [facility]: Spoke with patient and Bradnee at bedside today. He confirms Full Code [...] not want to remain on life support emt intermediate, not interested in trach or PEG. He is given generalized education about options moving forward and encouraged to discuss what QOL would look like for him with his . We discussed his current symptoms as described above. Pt and have many questions and are heavily basing decisions on POC depending on upcoming follow ups with oncology. 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 Has 3 living biological children. 1 dtr and 1 step dtr. Family History Father-emphysema Mother-stroke in age 80's Immunizations Unknown Diagnostic Results Radiology Results (Last 48 hours) [id number] -- 10/09/2020 15:48 CR Chest 1 Vw [...] pneumonia. Images reviewed, interpreted, and dictated by Sampsno Laws MD Lab Results Test Name Test [...] ALYC # 0 K/uL 10/09/2020 13:15 EDT Hart Percent Man 10 % (High) 10/10/2020 05:50 EDT Hart Percent Man 15 % (High) 10/09/2020 13:15 [...] Appearance CLEAR2 10/09/2020 14:45 EDT Urine Specific Raymond 1.014 10/09/2020 14:45 EDT Urine pH Dipstick [...] DATE: SOURCE: SITE: Reports Electronically signed by [facility], [facility] Conversion Pmo Project Manager Cerner at 06/29/2022 2:20 PM CDT documented in this encounter Plan of Treatment Upcoming Encounters Date Type Department Care Team (Late st Contact Info) Description 05/25/2025 10:45 AM EDT Office Visit [place] [facility] - [address] [place] [address] Jalen Enciso MD [address] [place] [address] documented as of this encounter Visit Diagnoses Not on filedocumented in this encounter Care Teams Bindery Worker Relationship Specialty Start Date End Date Kaylene Brooke MD [address] [place] [address] PCP - General General Internal Medicine 01/27/22 Farooq Marcus MD [address] [place] [place] [address] PCP - General Family Medicine 02/27/22 documented as of this encounter
--- OUTSIDE RECORDS SUMMARY | 2024-12-12 10:40 | XMS_ITS | Encounter Summary ---
Author Organization [employer] ([place], [place], [place], [place]) Address [address] [place] [address] Care Team Providers Care Mixing Tumbler Operator Name Role Phone Kaylene Brooke MD Primary Care Provider [phone] Farooq Marcus MD Primary Care Provider [phone] Encounter Details Date Type Department Care Team (Late st Contact Info) Description 09/22/2020 Transcribed Document [facility] Family Medicine [facility] [place] [address] ProviderRayray MD [address] [place], [place] [address] Social History Tobacco Use Types Packs/Day Years [...] Description 05/25/2025 10:45 AM EDT Office Visit [place] [facility] - [place] [address] [place] [address] Jalen Enciso MD [address] [place] [address] documented as of this encounter Visit Diagnoses Not on filedocumented in this encounter Care Teams Mixing Tumbler Operator Relationship Specialty Start Date End Date MendyKaylene dunn MD [address] [place] [address] PCP - General General Internal Medicine 01/27/22 Farooq Mracus MD [address] [place] [address] PCP - General Family Medicine 02/27/22 documented as of this encounter
--- OUTSIDE RECORDS SUMMARY | 2024-12-12 10:40 | XMS_ITS | Encounter Summary ---
Author Organization [employer] ([place], [place], [place], [place]) Address [address] [place] [address] Care Team Providers Care Surgical Instrument Repair Specialist Name Role Phone Kaylene Brooke MD Primary Care Provider Farooq Marcus MD Primary Care Provider [phone] Encounter Details Date Type Department Care Team (Late st Contact Info) Description 09/28/2020 Transcribed Document [facility] [place] [facility] [place] [address] ProviderRayray MD [address] [place] [address] Social History Tobacco Use Types Packs/Day Years [...] On: 09/28/2020 17:09 EDT by CASEY Romero, senior environmental practice leader Documentation Patient Disposition, General : Discharge, Elopement Discharge To : Home with ambulatory/outpatient follow-up Mode Of Departure, General Discharge : Private vehicle IV Discontinued : Yes Elopement Launch : Yes CASEY Romero RN - 09/28/2020 17:09 EDT Electronically signed by Nidia [facility] Conversion Manager Of Training Cerner at 06/29/2022 2:40 PM CDT documented in this encounter Plan of Treatment Upcoming Encounters Date Type Department Care Team (Late st Contact Info) Description 05/25/2025 10:45 AM EDT Office Visit [place] [facility] - [place] [place] [address] Jalen Enciso MD [address] [place] [address] documented as of this encounter Visit Diagnoses Not on filedocumented in this encounter Care Teams Surgical Instrument Repair Specialist Relationship Specialty Start Date End Date MendyKaylene dunn MD [address] [place] [address] PCP - General General Internal Medicine 01/27/22 Farooq Marcus MD [address] [place] [address] PCP - General Family Medicine 02/27/22 documented as of this encounter
--- OUTSIDE RECORDS SUMMARY | 2024-12-12 10:40 | XMS_ITS | Encounter Summary ---
Author Organization [employer] ([place], [place], [place], [place]) Address [address] [place] [address] Care Team Providers Care Radio Engineer Name Role Phone Kaylene Brooke MD Primary Care Provider [phone] Farooq Marcus MD Primary Care Provider [phone] Encounter Details Date Type Department Care Team (Late st Contact Info) Description 10/10/[address] [facility] [place] [facility] [place] [address] ProviderRayray MD [address] [place] [address] Social History Tobacco Use Types Packs/Day Years [...] 10/10/2020 10:13 EDT Electronically signed by Nidia [facility] Conversion Welding Machine Operator Helper Gas Cerner at 06/29/2022 2:21 PM CDT documented in this encounter Plan of Treatment Upcoming Encounters Date Type Department Care Team (Late st Contact Info) Description 05/25/2025 10:45 AM EDT Office Visit [place] [facility] - [facility] [address] [place] [address] Jalen Enciso MD [address] [place] [address] documented as of this encounter Visit Diagnoses Not on filedocumented in this encounter Care Teams Radio Engineer Relationship Specialty Start Date End Date Kaylene Brooke MD [address] [place] [address] PCP - General General Internal Medicine 01/27/22 Farooq Marcus MD [address] [place] [address] PCP - General Family Medicine 02/27/22 documented as of this encounter
--- OUTSIDE RECORDS SUMMARY | 2024-12-12 10:40 | XMS_ITS | Encounter Summary ---
Author Organization [employer] ([place], [place], [place], [place]) Address [address] [place] [address] Care Team Providers Care Dray Truck Driver Name Role Phone Kaylene Brooke MD Primary Care Provider [phone] Farooq Marcus MD Primary Care Provider [phone] Encounter Details Date Type Department Care Team (Late st Contact Info) Description 09/22/2020 Transcribed Document [facility] [place] [address] [place] [address] ProviderRayray MD [address] [place] [address] Social History Tobacco Use Types Packs/Day Years [...] 09/22/2020 11:06 EDT Electronically signed by Nidia [facility] Conversion Roll Forming Machine Operator Cerner at 06/29/2022 2:39 PM CDT documented in this encounter Plan of Treatment Upcoming Encounters Date Type Department Care Team (Late st Contact Info) Description 05/25/2025 10:45 AM EDT Office Visit [place] [facility] - [place] [place] [address] Jalen Enciso MD [address] [place] [address] documented as of this encounter Visit Diagnoses Not on filedocumented in this encounter Care Teams Dray Truck Driver Relationship Specialty Start Date End Date MendyKaylene dunn MD [address] [place] [address] PCP - General General Internal Medicine 01/27/22 Farooq Marcus MD [address] [place] [address] PCP - General Family Medicine 02/27/22 documented as of this encounter
--- OUTSIDE RECORDS SUMMARY | 2024-12-12 10:40 | XMS_ITS | Encounter Summary ---
Author Organization [employer] ([place], [place], [place], [place]) Address [address] [place] [address] Care Team Providers Care Director Of Clinical Services Name Role Phone Kaylene Brooke MD Primary Care Provider [phone] Farooq Marcus MD Primary Care Provider [phone] Encounter Details Date Type Department Care Team (Late st Contact Info) Description 09/22/2020 Transcribed Document [facility] [place] [facility] [place] [address] ProviderRayray MD [address] [place] [address] Social History Tobacco Use Types Packs/Day Years [...] - 09/23/2020 9:17 EDT Electronically signed by Nidia [facility] Conversion Automotive Machinist Cerner at 06/29/2022 2:35 PM CDT documented in this encounter Plan of Treatment Upcoming Encounters Date Type Department Care Team (Late st Contact Info) Description 05/25/2025 10:45 AM EDT Office Visit [place] [facility] - [place] [place] [address] Jalen Enciso MD [address] [place] [address] documented as of this encounter Visit Diagnoses Not on filedocumented in this encounter Care Teams Director Of Clinical Services Relationship Specialty Start Date End Date Kaylene Brooke MD [address] [place] [address] PCP - General General Internal Medicine 01/27/22 Farooq Marcus MD [address] [facility] [place] [address] PCP - General Family Medicine 02/27/22 documented as of this encounter
--- OUTSIDE RECORDS SUMMARY | 2024-12-12 10:40 | XMS_ITS | Encounter Summary ---
Author Organization [employer] ([place], [place], [place], [place]) Address [address] [place] [address] Care Team Providers Care City Attorney Name Role Phone Kaylene Brooke MD Primary Care Provider [phone] Farooq Marcus MD Primary Care Provider [phone] Encounter Details Date Type Department Care Team (Late st Contact Info) Description 09/22/[address] [facility] [place] [facility] [place] [address] ProviderRayray MD [address] [place] [address] Social History Tobacco Use Types Packs/Day Years [...] abd pain, n/v. PCP: tommie mccartney in [place] oncologist: dr seo technical marketing consultant: dr topete and dr COSTA in [place] Subjective Mr. Del Angel is an 84 year old male with history of esophageal cancer on chemotherapy with dr Seo, last chemo on 09/17, coronary artery disease last with PCI in [place] about 2 months ago as well as pacemaker for heart rhythm , possibly afib who presented to [facility] on 09/22 for evaluation of abd pain [...] stent placement about 2 months ago in [place] he was started on brilinta and aspirin and didnt like how it made me feel thus he stopped taking the brilinta. He had syncopal episode after taking metoprolol and protonix and thus stopped taking those too about 2 weeks ago. He was also hospitalized at [place] then. He reports significant weight loss as [...] list: Medical Leg neuralgia / SNOMED CT 59031237 / Confirmed Hyperlipidemia / SNOMED CT 08885918 / Confirmed Chest pain with high risk for cardiac etiology / SNOMED CT 65494579 / Confirmed At risk for sleep apnea / IMO 90051596 / Confirmed Anxiety disorder / SNOMED CT 611954480 / Confirmed, Active Problems (7) Anxiety disorder [...] Results Review Radiology Results (Last 48 hours) [id number] -- 09/22/2020 09:28 CR Chest 1 Vw [...] months ago with dr topete done at [place] - pt stopped taking brilinta on his own accord shortly after the PCI as it was making him sob - on aspirin 81 mg daily. syncope 2 weeks ago - two weeks ago, was at [place] [facility] for this stay. depression - start on antidepressant last week with dr seo - pt and unsure what medication this was. irregular heart rhythm, possibly afib - with pacemaker - follows with dr topete and dr COSTA in [place] medical record reviewed, discussed with ER provider. [...] Description 05/25/2025 10:45 AM EDT Office Visit [place] [facility] - [address] [place] [address] Jalen Seo MD [address] [place] [address] documented as of this encounter Visit Diagnoses Not on filedocumented in this encounter Care Teams City Attorney Relationship Specialty Start Date End Date Kaylene Brooke MD [address] [place] [address] PCP - General General Internal Medicine 01/27/22 Farooq Marcus MD [address] [place] [place] [address] PCP - General Family Medicine 02/27/22 documented as of this encounter
--- OUTSIDE RECORDS SUMMARY | 2024-12-12 10:40 | XMS_ITS | Encounter Summary ---
Author Organization [employer] ([place], [place], [place], [place]) Address [address] [place] [address] Care Team Providers Care Global Logistics Manager Name Role Phone Kaylene Brooke MD Primary Care Provider [phone] Farooq Marcus MD Primary Care Provider [phone] Encounter Details Date Type Department Care Team (Late st Contact Info) Description 09/22/2020 Transcribed Document [facility] [place] [facility] [address] ProviderRayray MD [address] [place] [address] Social History Tobacco Use Types Packs/Day Years [...] Patient Referral Reason Comment : Living Will Qualification Engineer Services Provided : Yes Qualification Engineer Services Provided Comment : Completed Living Will Ministry Provided to : Patient, Family/Significant other Yarsanism Preference : No listed preference TATIANA COULTER - 09/23/2020 8:16 EDT Interventions Advance Directive Information Provided : Yes Advance Directive Comment : Completed Living Will Emotional Support : Empathic/Engaged listening, Family/Significant other supported, Feelings expressed, Information provided Spiritual and Yarsanism : Spiritual/Yarsanism support provided Change, Adjustment and Loss : [...] , Family HEADTATIANA - 09/23/2020 8:16 EDT Electronically signed by Nidia, [facility] Conversion Electric Accounting Machine Operator Cerner at 06/29/2022 2:31 PM CDT documented in this encounter Plan of Treatment Upcoming Encounters Date Type Department Care Team (Late st Contact Info) Description 05/25/2025 10:45 AM EDT Office Visit [place] [facility] - [facility] [address] [facility] [address] [place] [address] Jalen Enciso MD [address] [place] [address] documented as of this encounter Visit Diagnoses Not on filedocumented in this encounter Care Teams Global Logistics Manager Relationship Specialty Start Date End Date Kaylene Brooke MD [address] [place] [address] PCP - General General Internal Medicine 01/27/22 Farooq Marcus MD [address] [facility] [place] [address] PCP - General Family Medicine 02/27/22 documented as of this encounter
--- OUTSIDE RECORDS SUMMARY | 2024-12-12 10:40 | XMS_ITS | Encounter Summary ---
Author Organization [employer] ([place], [place], [place], [place]) Address [address] [place] [address] Care Team Providers Care Feed Project Engineer Name Role Phone Kaylene Brooke MD Primary Care Provider [phone] Farooq Marcus MD Primary Care Provider [phone] Encounter Details Date Type Department Care Team (Late st Contact Info) Description 09/29/2020 Transcribed Document [facility] [place] [facility] [place] [address] ProviderRayray MD [address] [place] [address] Social History Tobacco Use Types Packs/Day Years [...] 09/29/2020 8:33 EDT Electronically signed by Nidia [facility] Conversion Network Firewall Engineer Cerner at 06/29/2022 2:27 PM CDT documented in this encounter Plan of Treatment Upcoming Encounters Date Type Department Care Team (Late st Contact Info) Description 05/25/2025 10:45 AM EDT Office Visit [place] [facility] - [facility] [address] [facility] [address] [place] [address] Jalen Enciso MD [address] [facility] [address] [place] [address] documented as of this encounter Visit Diagnoses Not on filedocumented in this encounter Care Teams Feed Project Engineer Relationship Specialty Start Date End Date Kaylene Brooke MD [address] [place] [address] PCP - General General Internal Medicine 01/27/22 Farooq Marcus MD [address] [facility] [place] [address] PCP - General Family Medicine 02/27/22 documented as of this encounter
--- OUTSIDE RECORDS SUMMARY | 2024-12-12 10:40 | XMS_ITS | Encounter Summary ---
Author Organization [employer] ([place], [place], [place], [place]) Address [address] [place] [address] Care Team Providers Care Jeep Driver Name Role Phone Kaylene Brooke MD Primary Care Provider [phone] Farooq Marcus MD Primary Care Provider [phone] Encounter Details Date Type Department Care Team (Late st Contact Info) Description 10/10/2020 Transcribed Document [facility] [place] [address] [place] [address] ProviderRayray MD [address] [place] [address] Social History Tobacco Use Types Packs/Day Years [...] service (patient of Dr Enciso) with metastatic, 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 He had been [...] list: Medical Anxiety disorder / SNOMED CT 855251585 / Confirmed At risk for sleep apnea / IMO 53997211 / Confirmed Chest pain with high risk for cardiac etiology / SNOMED CT 76907588 / Confirmed Hyperlipidemia / SNOMED CT 33596151 / Confirmed Leg neuralgia / SNOMED CT 01909881 / Confirmed, Active Problems (7) Anxiety disorder [...] Radiology results Radiology Results (Last 48 hours) [id number] -- 10/09/2020 15:48 CR Chest 1 Vw [...] etc. Dr Enciso to return tomorrow and picked edge sewing machine operator coverage. Mr Robertson voiced understanding and agreement with the above. Electronically signed by Nidia, [facility] Conversion Hacksaw Inspector Cerner at 06/29/2022 2:27 PM CDT documented in this encounter Plan of Treatment Upcoming Encounters Date Type Department Care Team (Late st Contact Info) Description 05/25/2025 10:45 AM EDT Office Visit [place] [facility] - [address] [place] [address] Jalen Enciso MD [address] [facility] [address] [place] [address] documented as of this encounter Visit Diagnoses Not on filedocumented in this encounter Care Teams Jeep Driver Relationship Specialty Start Date End Date Kaylene Brooke MD [address] [place] [address] PCP - General General Internal Medicine 01/27/22 Farooq Marcus MD [address] [address] PCP - General Family Medicine 02/27/22 documented as of this encounter
--- OUTSIDE RECORDS SUMMARY | 2024-12-12 10:40 | XMS_ITS | Encounter Summary ---
Author Organization [employer] ([place], [place], [place], [place]) Address [address] [place] [address] Care Team Providers Care Sand Polisher Name Role Phone Kaylene Brooke MD Primary Care Provider [phone] Farooq Marcus MD Primary Care Provider [phone] Encounter Details Date Type Department Care Team (Late st Contact Info) Description 09/22/2020 Transcribed Document [facility] [place] [address] ProviderRayray MD [address] [place] [address] Social History Tobacco Use Types Packs/Day Years [...] Nelsy Chou, MERA - 09/22/2020 22:56 EDT documented in this encounter Plan of Treatment Upcoming Encounters Date Type Department Care Team (Late st Contact Info) Description 05/25/2025 10:45 AM EDT Office Visit [place] [facility] - [facility] [address] [facility] [address] [place] [address] Jalen Enciso MD [address] [place] [address] documented as of this encounter Visit Diagnoses Not on filedocumented in this encounter Care Teams Sand Polisher Relationship Specialty Start Date End Date Kaylene Brooke MD [address] [place] [address] PCP - General General Internal Medicine 01/27/22 Farooq Marcus MD [address] [place] [address] PCP - General Family Medicine 02/27/22 documented as of this encounter
--- OUTSIDE RECORDS SUMMARY | 2024-12-12 10:40 | XMS_ITS | Referral Summary ---
Author Organization [employer] ([place], [place], [place], [place]) Address [address] [place] [address] Care Team Providers Care Payable Representative Name Role Phone Farooq Marcus MD Primary Care Provider [phone] Encounters Date Type Department Care Team Description 12/09/2024 Telephone [facility] [place] [address] [place] [address] Jalen Enciso MD medical records request 11/24/2024 Travel 11/24/2024 2:00 PM EDT Office Visit [facility] [address] [place] [address] Jalen Enciso MD Adenocarcinoma of gastroesophageal junction (HCC) (Primary Dx) 11/21/2024 Telephone [facility] [address] [place] [address] Jalen Enciso MD Appointment 09/29/2024 Telephone [facility] [address] [place] [address] Jalen Enciso MD Leg Swelling [...] Date Scotty rded Speak language other than [place]er at home Not on file 03/22/2023 Want [...] 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 Care Teams Payable Representative Relationship Specialty Start Date End Date Farooq Marcus MD [address] [place] [address] PCP - General Family Medicine 02/27/22
--- OUTSIDE RECORDS SUMMARY | 2024-12-12 10:40 | XMS_ITS | Encounter Summary ---
Author Organization [employer] ([place], [place], [place], [place]) Address [address] [place] [address] Care Team Providers Care Sole Stainer Name Role Phone Kaylene Brooke MD Primary Care Provider [phone] Farooq Marcus MD Primary Care Provider [phone] Encounter Details Date Type Department Care Team (Late st Contact Info) Description 09/22/2020 Transcribed Document [facility] Family Medicine [facility] [place] [address] ProviderRayray MD [address] [place] [address] Social History Tobacco Use Types Packs/Day Years [...] Description 05/25/2025 10:45 AM EDT [facility] [address] [place] [address] Jalen Enciso MD [address] [place] [address] documented as of this encounter Visit Diagnoses Not on filedocumented in this encounter Care Teams Sole Stainer Relationship Specialty Start Date End Date Kaylene Brooke MD [address] [place] [address] PCP - General General Internal Medicine 01/27/22 Farooq Marcus MD [address] [place] [address] PCP - General Family Medicine 02/27/22 documented as of this encounter
--- OUTSIDE RECORDS SUMMARY | 2024-12-12 10:40 | XMS_ITS | Encounter Summary ---
Author Organization [employer] ([place], [place], [place], [place]) Address [address] [place] [address] Care Team Providers Care Trade Clerk Name Role Phone Kaylnee Brooke MD Primary Care Provider [phone] Farooq Marcus MD Primary Care Provider [phone] Encounter Details Date Type Department Care Team (Late st Contact Info) Description 09/22/2020 Transcribed Document [facility] Family Medicine [address] [place] [address] ProviderRayray MD [address] [place] [address] Social History Tobacco Use Types Packs/Day Years Used Date Smoking Tobacco: Never Assessed Sex and Gender Information Value Date Recorded Sex Assigned at Not on file Legal Sex Male 5:14 PM CDT Gender Identity Not on file Sexual Orientation Not on file documented as of this encounter Miscellaneous Notes * Cerner Conversion Note - Rayray ProviderMD - 09/22/2020 9:28 AM CDT [place] Suicide Severity Rating Scale (C-SSRS) Entered On: 09/22/2020 11:11 EDT Performed On: 09/22/2020 11:06 EDT by CELIA ALBERT RN [place] Suicide Severity Rating Scale (C-SSRS) CSSRS Past Month Wish to be : No CSSRS Past Month Suicidal Thoughts : No CSSRS Lifetime Suicide Behavior : No Suicide Severity Rating Score : 0 Suicide Severity Rating : No Additional Care Required at this time CELIA ALBERT RN - 09/22/2020 11:06 EDT Electronically signed by Malina Jacob Conversion Environmental Issues Instructor Cerner at 06/29/2022 2:25 PM CDT documented in this encounter Plan of Treatment Upcoming Encounters Date Type Department Care Team (Late st Contact Info) Description 05/25/2025 10:45 AM EDT Office Visit [facility] [place] [address] [place] [address] Jalen Enciso MD [address] [place] [address] documented as of this encounter Visit Diagnoses Not on filedocumented in this encounter Care Teams Trade Clerk Relationship Specialty Start Date End Date MendyKaylene dunn MD [address] [place] [address] PCP - General General Internal Medicine 01/27/22 Farooq Marcus MD [address] [place] [address] PCP - General Family Medicine 02/27/22 documented as of this encounter
--- OUTSIDE RECORDS SUMMARY | 2024-12-12 10:40 | XMS_ITS | Encounter Summary ---
Author Organization [employer] ([place], [place], [place], [place]) Address [address] [place] [address] Care Team Providers Care Inpatient Services Rn Name Role Phone Kaylene Brooke MD Primary Care Provider [phone] Farooq Marcus MD Primary Care Provider [phone] Encounter Details Date Type Department Care Team (Late st Contact Info) Description 10/13/2020 Transcribed Document [facility] Family Medicine [address] [place] [address] ProviderRayray MD [address] [place] [address] Social History Tobacco Use Types [...] San MD - 10/13/2020 11:59 AM CDT [facility] [address] [place] [id number] RANCHO DEL ANGEL :1935 Visit Time:10/10/2020 Your Visit Summary Your Care Team Admitting Physician - KEISHA TUCKER MD Attending Physician - KEISHA TUCKER MD Primary Care Physician - MAZIN SHERIDAN [facility] Referring Physician - SHAINA, NOT LISTED Your [...] Bring discharge instructions with you. Where: [address] [address]- Follow Up with MAZIN SHERIDAN [facility] When 10/20/2020 10:30 AM EDT Comments PCP follow up. Appointment has been made. Bring discharge instructions with you. Where: [address] [place] [address]- Medications What How Much When Instructions Next Dose erythromycin ophthalmic (erythromycin 0.5% ophthalmic ointment) 1 Application(s) Eye Left Two Times A Day Duration: 5 Day(s) Pickup at [facility] [address] [facility] megestrol (Megace 40 mg/ mL oral suspension) 20 Milliliter(s) Oral Every Day Duration: 30 Day(s) Pickup at [facility] [address] [facility] metoclopramide (Reglan 10 mg oral tablet) 1 Tablet(s) Oral Before Meals and at Bedtime Duration: 14 Day(s) Pickup at [facility] [address] [facility] sucralfate (Carafate 1 g/ 10 mL oral suspension) 10 Milliliter(s) Oral Before Meals Duration: 10 Day(s) Pickup at [facility] [address] [facility] LORazepam (Ativan 1 mg oral tablet) 1 Tablet(s) Oral Three Times A Day as needed for as needed for anxiety clopidogrel (Plavix 75 mg oral tablet) 1 Tablet(s) Oral Every Day venlafaxine (Effexor XR 150 mg oral capsule, extended release) 1 Capsule(s) Oral Every Day NEW DOSE Pickup at [facility] [address] [facility] aspirin 81 Milligram(s) Oral Every Day multivitamin 1 Tablet(s) Oral Every Day ondansetron (Zofran 8 mg oral tablet) 1 Tablet(s) Oral Three Times A Day as needed for Nausea pantoprazole (pantoprazole 40 mg oral delayed release tablet) 1 Tablet(s) Oral Every Day Pharmacy Information [facility]: [address] [facility] [address] [place] [phone] Take your medications faithfully. Do NOT skip [...] these instructions at home: Medicines ??? Take dxvz-itq-ebwpfvc and prescription medicines only as told by [...] provider. Document Revised: 07/16/2018 Document Reviewed: 07/16/2018 [employer] Patient Education ?? 2020 [employer] metoclopramide (oral/injection) (MET oh TRAN martinez) [...] may report side effects to FDA at 0-443-OZH-6517. What other drugs will affect metoclopramide? Using [...] may affect metoclopramide. This includes prescription and elpi-bjp-cdenncm medicines, vitamins, and herbal products. Not all [...] to ensure that the information provided by [employer]. ('Multum') is accurate, up-to-date, and complete, but no guarantee is made to that effect. Drug information contained herein may be time sensitive. [employer] information has been compiled for use by healthcare practitioners and consumers in the [place] and therefore [employer] does not warrant that uses outside of the [place] are appropriate, unless specifically indicated otherwise. [employer] drug information does not endorse drugs, diagnose patients or recommend therapy. [employer] drug information is an informational resource designed [...] effective or appropriate for any given patient. [employer] does not assume any responsibility for any aspect of healthcare administered with the aid of information [employer] provides. The information contained herein is not intended to cover all possible uses, directions, precautions, warnings, drug interactions, allergic reactions, or adverse effects. If you have questions about the drugs you are taking, check with your doctor, nurse or pharmacist. Copyright 9073-0623 [employer]. Version: 12.. Revision Date: 05/17/2017. erythromycin ophthalmic [...] may report side effects to FDA at 6-957-AYC-9642. What other drugs will affect erythromycin ophthalmic? Medicine used in the eyes is not likely to be affected by other drugs you use. But many drugs can interact with each other. Tell each of your healthcare providers about all medicines you use, including prescription and voha-pze-adgeiap medicines, vitamins, and herbal products. Where can I get more information? Your pharmacist can provide more information about erythromycin ophthalmic. Remember, keep this and all other medicines out of the reach of children, never share your medicines with others, and use this medication only for the indication prescribed. Every effort has been made to ensure that the information provided by [employer]. ('Multum') is accurate, up-to-date, and complete, but no guarantee is made to that effect. Drug information contained herein may be time sensitive. [employer] information has been compiled for use by healthcare practitioners and consumers in the [place] and therefore [employer] does not warrant that uses outside of the [place] are appropriate, unless specifically indicated otherwise. [employer]'s drug information does not endorse drugs, diagnose patients or recommend therapy. [employer] drug information is an informational resource designed [...] effective or appropriate for any given patient. [facility] does not assume any responsibility for any aspect of healthcare administered with the aid of information [facility] provides. The information contained herein is not intended to cover all possible uses, directions, precautions, warnings, drug interactions, allergic reactions, or adverse effects. If you have questions about the drugs you are taking, check with your doctor, nurse or pharmacist. Copyright 1810-2838 [facility]. Version: 7.01. Revision Date: 11/07/2017. venlafaxine (CLARA [...] may report side effects to FDA at 6-057-OKV-0335. What other drugs will affect venlafaxine? Using venlafaxine with other drugs that make you drowsy can worsen this effect. Ask your doctor before using opioid medication, a sleeping pill, a muscle relaxer, or medicine for anxiety or seizures. Tell your doctor about all your current medicines. Many drugs can affect venlafaxine, especially: ?? any other antidepressant; ?? cimetidine; ?? tramadol; ?? [place]'s wort, tryptophan (sometimes called L-tryptophan); ?? diet pills, weight loss medicine (such as phentermine); ?? a blood thinner--warfarin, Coumadin, Jantoven; ?? medicine to treat mood disorders, thought disorders, or mental illness--buspirone, lithium, and many others; or ?? migraine headache medicine--sumatriptan, zolmitriptan, and others. This list is not complete and many other drugs may affect venlafaxine. This includes prescription and trzz-xmg-pvtzfwg medicines, vitamins, and herbal products. Not all [...] to ensure that the information provided by [employer]. ('Multum') is accurate, up-to-date, and complete, but no guarantee is made to that effect. Drug information contained herein may be time sensitive. [employer] information has been compiled for use by healthcare practitioners and consumers in the [place] and therefore [employer] does not warrant that uses outside of the [place] are appropriate, unless specifically indicated otherwise. [employer]'s drug information does not endorse drugs, diagnose patients or recommend therapy. [employer] drug information is an informational resource designed [...] effective or appropriate for any given patient. [employer] does not assume any responsibility for any aspect of healthcare administered with the aid of information [employer] provides. The information contained herein is not intended to cover all possible uses, directions, precautions, warnings, drug interactions, allergic reactions, or adverse effects. If you have questions about the drugs you are taking, check with your doctor, nurse or pharmacist. Copyright 7618-9677 [employer]. Version: 16.02. Revision Date: 08/26/2020. sucralfate (oral) [...] may report side effects to FDA at 9-007-QLT-4614. What other drugs will affect sucralfate? Other drugs may affect sucralfate, including prescription and pggw-ksy-skrbdew medicines, vitamins, and herbal products. Tell your [...] to ensure that the information provided by [employer]. ('Multum') is accurate, up-to-date, and complete, but no guarantee is made to that effect. Drug information contained herein may be time sensitive. [employer] information has been compiled for use by healthcare practitioners and consumers in the [place] and therefore [employer] does not warrant that uses outside of the [place] are appropriate, unless specifically indicated otherwise. [employer] drug information does not endorse drugs, diagnose patients or recommend therapy. Fort[employer]os drug information is an informational resource designed [...] effective or appropriate for any given patient. [facility] does not assume any responsibility for any aspect of healthcare administered with the aid of information [employer] provides. The information contained herein is not intended to cover all possible uses, directions, precautions, warnings, drug interactions, allergic reactions, or adverse effects. If you have questions about the drugs you are taking, check with your doctor, nurse or pharmacist. Copyright 0869-6702 [facility] [employer]. Version: 12.10. Revision Date: 05/13/2020. megestrol (mirian [...] may report side effects to FDA at 4-063-FFM-2323. What other drugs will affect megestrol? Tell your doctor about all your other medicines, especially: ?? a blood thinner--warfarin, Coumadin, Jantoven. This list is not complete. Other drugs may affect megestrol, including prescription and cegz-yxo-szgrytu medicines, vitamins, and herbal products. Not all [...] to ensure that the information provided by [employer]. ('Online Deal[employer]um') is accurate, up-to-date, and complete, but no guarantee is made to that effect. Drug information contained herein may be time sensitive. [employer] information has been compiled for use by healthcare practitioners and consumers in the [place] and therefore [employer] does not warrant that uses outside of the [place] are appropriate, unless specifically indicated otherwise. [employer] drug information does not endorse drugs, diagnose patients or recommend therapy. [employer] drug information is an informational resource designed [...] effective or appropriate for any given patient. [employer] does not assume any responsibility for any aspect of healthcare administered with the aid of information [employer] provides. The information contained herein is not intended to cover all possible uses, directions, precautions, warnings, drug interactions, allergic reactions, or adverse effects. If you have questions about the drugs you are taking, check with your doctor, nurse or pharmacist. Copyright 8437-0779 [employer]. Version: 7.01. Revision Date: 11/08/2018. Emergency Awareness [...] Assistance with quitting is available by contacting 4-842-UOIFKerlinkNOW. This is a free resource providing counseling, support, and referral. Or you may contact your personal physician. [employer] Suicide Prevention Lifeline: The National Suicide Prevention [...] range between ( 0.0 and 7.0 ) [place] #: 0.64 K/uL -- Normal range between ( 0.16 and 1.00 ) Eos #: 0.23 x10(3)/uL -- Normal range between ( 0.00 and 0.80 ) [place] %: 11.7 % -- Normal range between [...] Abnormal Macrocytosis: 1+ ANC #: 3 K/uL [place] Percent Man: 10 % -- Normal range [...] ) Urine Bilirubin Dipstick: Negative Urine Specific Foster: 1.014 -- Normal range between ( 1.005 [...] was given the opportunity to ask questions. Patient/Cheese Pancake Roller Name: Patient/Cheese Pancake Roller Signature: Relationship to Patient: Clinician/Hospital Cheese Pancake Roller Signature: Date: documented in this encounter Plan of Treatment Upcoming Encounters Date Type Department Care Team (Late st Contact Info) Description 05/25/2025 10:45 AM EDT Office Visit [facility] [place] [address] [facility] [address] [place] [address] Jalen Enciso MD [address] [place] [address] documented as of this encounter Visit Diagnoses Not on filedocumented in this encounter Care Teams Inpatient Services Rn Relationship Specialty Start Date End Date MendyKaylene MD [address] [place] [address] PCP - General General Internal Medicine 01/27/22 Farooq Marcus MD [address] [place] [address] PCP - General Family Medicine 02/27/22 documented as of this encounter
--- OUTSIDE RECORDS SUMMARY | 2024-12-12 10:40 | XMS_ITS | Encounter Summary ---
Author Organization [employer] ([place], [place], [place], [place]) Address [address] [place] [address] Care Team Providers Care Device Test Engineer Name Role Phone Kaylene Brooke MD Primary Care Provider [phone] Farooq Marcus MD Primary Care Provider [phone] Encounter Details Date Type Department Care Team (Late Contact Info) Description 09/28/2020 Transcribed Document [facility] [place] [facility] [place] [address] ProviderRayray MD [address] [place], [place] [address] Social History Tobacco Use Types Packs/Day Years [...] 09/28/2020 3:18 EDT Electronically signed by Nidia [facility] Conversion Business Office Assistant Cerner at 06/29/2022 2:32 PM CDT documented in this encounter Plan of Treatment Upcoming Encounters Date Type Department Care Team (Late st Contact Info) Description 05/25/2025 10:45 AM EDT Office Visit [facility] - [place] [address] [place] [address] Jalen Enciso MD [address] [place] [address] documented as of this encounter Visit Diagnoses Not on filedocumented in this encounter Care Teams Device Test Engineer Relationship Specialty Start Date End Date Kaylene Brooke MD [address] [place] [address] PCP - General General Internal Medicine 01/27/22 Farooq Marcus MD [address] [place] [address] PCP - General Family Medicine 02/27/22 documented as of this encounter
--- OUTSIDE RECORDS SUMMARY | 2024-12-12 10:40 | XMS_ITS | Encounter Summary ---
Author Organization [employer] ([place], [place], [place], [place]) Address [address] [place] [address] Care Team Providers Care Data Collection Associate Name Role Phone Kaylene Brooke MD Primary Care Provider [phone] Farooq Marcus MD Primary Care Provider [phone] Encounter Details Date Type Department Care Team (Late st Contact Info) Description 09/22/2020 Transcribed Document [facility] [place] Family [place] [address] ProviderRayray MD [address] [place] [address] Social History Tobacco Use Types Packs/Day Years [...] months ago with dr topete done at [facility] - pt stopped taking brilinta on his own accord shortly after the PCI as it was making him sob - on aspirin 81 mg daily. syncope 2 weeks ago - two weeks ago, was at [facility] for this stay. depression - start on antidepressant last week with dr enciso - pt and unsure what medication this was. irregular heart rhythm, possibly afib - with pacemaker - follows with dr topete and dr COSTA in [place] Patients Medical Story: Mr. Del Angel is an 84 year old male with history of esophageal cancer on chemotherapy with dr Enciso, last chemo on 09/17, coronary artery disease last with PCI in [facility] about 2 months ago as well as pacemaker for heart rhythm , possibly afib who presented to [facility] on 09/22 for evaluation of abd pain [...] stent placement about 2 months ago in [facility] he was started on brilinta and aspirin and didnt like how it made me feel thus he stopped taking the brilinta. He had syncopal episode after taking metoprolol and protonix and thus stopped taking those too about 2 weeks ago. He was also hospitalized at [facility] then. He reports significant weight [...] Will notify Primary Care Provider MAZIN SHERIDAN MD[facility] of change in care plan. Will look at further interventions as needed. Code Status: At this time patient wishes to be Code Status Start: 09/22/20 17:15:00 EDT, Full Code, Continuous Order Time Spent with Patient: [ 16] minutes Chantelle Lundberg D.O. [facility] Hospitalist pager: [phone] Electronically signed by Nidia [facility] [employer] Conversion Field Artillery Fire Control Man Cerner at 06/29/2022 2:26 PM CDT documented in this encounter Plan of Treatment Upcoming Encounters Date Type Department Care Team (Late st Contact Info) Description 05/25/2025 10:45 AM EDT Office Visit [facility] - [place] [address] [place] [address] Jalen Enciso MD [address] [place] [address] documented as of this encounter Visit Diagnoses Not on filedocumented in this encounter Care Teams Data Collection Associate Relationship Specialty Start Date End Date Kaylene Brooke MD [address] [place] [address] PCP - General General Internal Medicine 01/27/22 Farooq Marcus MD [address] [place] [address] PCP - General Family Medicine 02/27/22 documented as of this encounter
--- OUTSIDE RECORDS SUMMARY | 2024-12-12 10:40 | XMS_ITS | Encounter Summary ---
Author Organization [employer] ([place], [place], [place], [place]) Address [address] [place] [address] Care Team Providers Care Hand Silvering Supervisor Name Role Phone Kaylene Brooke MD Primary Care Provider [phone] Farooq Marcus MD Primary Care Provider [phone] Encounter Details Date Type Department Care Team (Late st Contact Info) Description 09/22/2020 Transcribed Document [facility] [place] Medicine [facility] [place] [address] ProviderRayray MD [address] [place], [place] [address] Social History Tobacco Use Types Packs/Day Years [...] chemo earlier this month. Pt presented to [facility] 09/22 for abd pain with N/V. GI consulted, LFTs/pancreatitis likely due to medication/dehydration, LFTs improving. Visited pt, not in room at time of visit. Pt stated he had a good appetite prior to hospitalization, ate 2 meals/day + snacks. No issues chewing/swallowing reported. Pt stated UBW 185#, last known in May 2020 before chemo started, stated CBW 165# (but admit vx=937#). RD to reorder wt to confirm. NFPE [...] Esophageal cancer hx of chemo, CAD, HLD, NC, cholecystectomy Meds: aspirin, Colace, PPI, senna, abx, [...] Katey Warren Dietitian - 09/24/2020 13:04 EDT Electronically signed by Malina Jacob Conversion Plant Attendant Or Assistant Operator Cerner at 06/29/2022 2:25 PM CDT documented in this encounter Plan of Treatment Upcoming Encounters Date Type Department Care Team (Late st Contact Info) Description 05/25/2025 10:45 AM EDT Office Visit [facility] - [address] [facility] [address] [place] [address] Jalen Enciso MD [address] [place] [address] documented as of this encounter Visit Diagnoses Not on filedocumented in this encounter Care Teams Hand Silvering Supervisor Relationship Specialty Start Date End Date Kaylene Brooke MD [address] [place] [address] PCP - General General Internal Medicine 01/27/22 Farooq Marcus MD [address] [facility] [place] [address] PCP - General Family Medicine 02/27/22 documented as of this encounter
--- OUTSIDE RECORDS SUMMARY | 2024-12-12 10:40 | XMS_ITS | Encounter Summary ---
Author Organization [employer] ([place], [place], [place], [place]) Address [address] [place] [address] Care Team Providers Care Vegetable Harvest Machine Operator Name Role Phone Kaylene Brooke MD Primary Care Provider [phone] Farooq Marcus MD Primary Care Provider Encounter Details Date Type Department Care Team (Late Contact Info) Description 10/09/2020 Transcribed Document [facility] [place] [address] ProviderRayray MD [address] [place], [place] [address] Social History Tobacco Use Types Packs/Day Years [...] 10/09/2020 18:36 EDT Electronically signed by Nidia [facility] Conversion Medical Coding Manager Cerner at 06/29/2022 2:41 PM CDT documented in this encounter Plan of Treatment Upcoming Encounters Date Type Department Care Team (Late st Contact Info) Description 05/25/2025 10:45 AM EDT Office Visit [facility] - [place] [address] [place] [address] Jalen Enciso MD [address] [place] [address] documented as of this encounter Visit Diagnoses Not on filedocumented in this encounter Care Teams Vegetable Harvest Machine Operator Relationship Specialty Start Date End Date Kaylene Brooke MD [address] [place] [address] PCP - General General Internal Medicine 01/27/22 Farooq Marcus MD [address] [place] [address] PCP - General Family Medicine 02/27/22 documented as of this encounter
--- OUTSIDE RECORDS SUMMARY | 2024-12-12 10:40 | XMS_ITS | Encounter Summary ---
Author Organization [employer] ([place], [place], [place], [place]) Address [address] [place] [address] Care Team Providers Care Teacher Of Family And Consumer Science Name Role Phone Kaylene Brooke MD Primary Care Provider [phone] Farooq Marcus MD Primary Care Provider [phone] Encounter Details Date Type Department Care Team (Late st Contact Info) Description 10/09/2020 Transcribed Document [facility] [place] [address] [place] [address] ProviderRayray MD [address] [place] [address] Social History Tobacco Use Types Packs/Day Years [...] : Low risk (0) [place] Interventions : [place] precautions for safety used PRISCILLA JUAN RN - 10/09/2020 13:56 EDT Electronically signed by Malina Jacob Conversion Operations And Maintenance Supervisor Cerner at 06/29/2022 2:18 PM CDT documented in this encounter Plan of Treatment Upcoming Encounters Date Type Department Care Team (Late st Contact Info) Description 05/25/2025 10:45 AM EDT Office Visit [facility] - [place] [place] [address] Jalen Enciso MD [address] [place] [address] documented as of this encounter Visit Diagnoses Not on filedocumented in this encounter Care Teams Teacher Of Family And Consumer Science Relationship Specialty Start Date End Date MendyKaylene dunn MD [address] [place] [address] PCP - General General Internal Medicine 01/27/22 Farooq Marcus MD [address] [place] [address] PCP - General Family Medicine 02/27/22 documented as of this encounter
--- OUTSIDE RECORDS SUMMARY | 2024-12-12 10:40 | XMS_ITS | Encounter Summary ---
Author Organization [employer] ([place], [place], [place], [place]) Address [address] [place] [address] Care Team Providers Care Oil Well Driller Name Role Phone Kaylene Brooke MD Primary Care Provider [phone] Farooq Marcus MD Primary Care Provider [phone] Encounter Details Date Type Department Care Team (Late st Contact Info) Description 09/22/2020 Transcribed Document [facility] [place] [address] ProviderRayray MD [address] [place] [address] Social History Tobacco Use Types Packs/Day Years [...] Description 05/25/2025 10:45 AM EDT Office Visit [facility] - [place] [address] [place] [address] Jalen Enciso MD [address] [place] [address] documented as of this encounter Visit Diagnoses Not on filedocumented in this encounter Care Teams Oil Well Driller Relationship Specialty Start Date End Date Kaylene Brooke MD [address] [place] [address] PCP - General General Internal Medicine 01/27/22 Farooq Marcus MD [address] [place] [address] PCP - General Family Medicine 02/27/22 documented as of this encounter
--- OUTSIDE RECORDS SUMMARY | 2024-12-12 10:40 | XMS_ITS | Encounter Summary ---
Author Organization [employer] ([place], [place], [place], [place]) Address [address] [place] [address] Care Team Providers Care Wine Specialist Name Role Phone Kaylene Brooke MD Primary Care Provider [phone] Farooq Marcus MD Primary Care Provider [phone] Encounter Details Date Type Department Care Team (Late st Contact Info) Description 10/13/2020 Transcribed Document [facility] [place] [address] ProviderRayray MD [address] [place] [address] Social History Tobacco Use Types Packs/Day Years [...] MATIAS KERN PTA - 10/13/2020 13:29 EDT Unit Tender Goals Ambulation LTG Grid Goal #1 Device : None Distance : 200' Assist : Supervision or set-up Date to Meet : 10/25/2020 EDT Goal Status : Not met MATIAS KERN PTA - 10/13/2020 13:29 EDT Electronically signed by Boo Jacob Conversion Warning Coordination Meteorologist Cerner at 06/29/2022 2:35 PM CDT documented in this encounter Plan of Treatment Upcoming Encounters Date Type Department Care Team (Late st Contact Info) Description 05/25/2025 10:45 AM EDT Office Visit [facility] - [address] [facility] [address] [facility] [address] [place] [address] Jalen Enciso MD [address] [facility] [address] [place] [address] documented as of this encounter Visit Diagnoses Not on filedocumented in this encounter Care Teams Wine Specialist Relationship Specialty Start Date End Date Kaylene Brooke MD [address] [place] [address] PCP - General General Internal Medicine 01/27/22 Farooq Marcus MD [address] [place] [address] PCP - General Family Medicine 02/27/22 documented as of this encounter
--- OUTSIDE RECORDS SUMMARY | 2024-12-12 10:40 | XMS_ITS | Encounter Summary ---
Author Organization [employer] ([place], [place], [place], [place]) Address [address] [place] [address] Care Team Providers Care Nougat Cutter Machine Name Role Phone Farooq Marcus MD Primary Care Provider Reason for Visit * Reason Onset Date Comments medical records request 12/09/2024 Encounter Details Date Type Department Care Team (Late st Contact Info) Description 12/09/2024 Telephone [facility] - [place] [address] [facility] [address] [place] [address] Jalen Enciso MD [address] [place] [address] medical records request Social History Tobacco Use Types Packs/Day Years [...] Date Scotty rded Speak language other than Spanish at home Not on file 03/22/2023 Want [...] 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 [phone] RN returned call and Neema requested last office note from Dr Enciso as pt saw Dr Juarez today. fax#[phone] ATTN NEEMA Last 4 office notes faxed to # provided. Neema was given # to medical records if additional records are needed. documented in this encounter Plan of Treatment Upcoming Encounters Date Type Department Care Team (Late st Contact Info) Description 05/25/2025 10:45 AM EDT Office Visit [facility] - [address] [facility] [address] [place] [address] Jalen Enciso MD [address] [place] [address] documented as of this encounter Visit Diagnoses Not on filedocumented in this encounter Care Teams Nougat Cutter Machine Relationship Specialty Start Date End Date Farooq Marcus MD [address] [place] [address] PCP - General Family Medicine 02/27/22 documented as of this encounter
--- OUTSIDE RECORDS SUMMARY | 2024-12-12 10:40 | XMS_ITS | Encounter Summary ---
Author Organization [employer] ([place], [place], [place], [place]) Address [address] [place] [address] Care Team Providers Care Apparel Fashion Designer Name Role Phone Farooq Marcus MD Primary Care Provider [phone] Reason for Visit * Reason Onset Date Comments Appointment 11/21/2024 Encounter Details Date Type Department Care Team (Late st Contact Info) Description 11/21/2024 Telephone [facility] - [facility] [address] [facility] [address] [place] [address] Jalen Enciso MD [address] [place] [address] Appointment Social History Tobacco Use [...] Date Scotty rded Speak language other than Tajik at home Not on file 03/22/2023 Want [...] 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
--- OUTSIDE RECORDS SUMMARY | 2024-12-12 10:40 | XMS_ITS | Encounter Summary ---
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 [address] [place] [address] documented as of this encounter Visit Diagnoses Not on filedocumented in this encounter Care Teams Motors And Generators Inspector Relationship Specialty Start Date End Date Farooq Marcus MD [address] [place] [address] PCP - General Family Medicine 02/27/22 documented as of this encounter
--- OUTSIDE RECORDS SUMMARY | 2024-12-12 10:40 | XMS_ITS | Encounter Summary ---
Author Organization [employer] ([place], [place], [place], [place]) Address [address] [place] [address] Care Team Providers Care Cement Car Dumper Name Role Phone Kaylene Brooke MD Primary Care Provider [phone] Farooq Marcus MD Primary Care Provider [phone] Encounter Details Date Type Department Care Team (Late st Contact Info) Description 10/13/2020 Transcribed Document [facility] [place] [address] ProviderRayray MD [address] [place] [address] Social History Tobacco Use Types Packs/Day Years [...] Description 05/25/2025 10:45 AM EDT Office Visit [facility] - [place] [place] [address] Jalen Enciso MD [address] [place] [address] documented as of this encounter Visit Diagnoses Not on filedocumented in this encounter Care Teams Cement Car Dumper Relationship Specialty Start Date End Date MendyKaylene dunn MD [address] [place] [address] PCP - General General Internal Medicine 01/27/22 Farooq Marcus MD [address] [place] [address] PCP - General Family Medicine 02/27/22 documented as of this encounter
--- OUTSIDE RECORDS SUMMARY | 2024-12-12 10:40 | XMS_ITS | Encounter Summary ---
Author Organization [employer] ([place], [place], [place], [place]) Address [address] [place] [address] Care Team Providers Care Automated Equipment Engineer Technician Name Role Phone Kaylene Brooke MD Primary Care Provider [phone] Farooq Marcus MD Primary Care Provider [phone] Encounter Details Date Type Department Care Team (Late st Contact Info) Description 09/22/2020 Transcribed Document [facility] [place] Family Medicine [address] [place] [address] ProviderRayray MD [address] [place] [address] Social History Tobacco Use Types Packs/Day Years [...] Communication Barrier : None Primary Language : North [place] Any Spiritual/Cultural Needs or Requests : No Currently in Unsafe Situation : No CELIA ALBERT RN - 09/22/2020 11:06 EDT ED Psychosocial Assessment Affect/Behavior : Appropriate, Calm, Cooperative CELIA ALBERT RN - 09/22/2020 11:06 EDT Social Habits Smoking Status : Never (less than 100 in lifetime; none in last 30 days) Smokeless Tobacco Status : Never Desires Tobacco Cessation Calc : 0 ECLIA ALBERT RN - 09/22/2020 11:06 EDT Social [...] Nausea at rest Nail Bed Color : [place] Chest Pain : No CELIA ALBERT RN [...] : gets chemo, probably causing chills, fatigue ALBERTJOSHCELIAMERA BECKWITH - 09/22/2020 11:06 EDT Pain Assessment [...] Description 05/25/2025 10:45 AM EDT Office Visit [facility] - [place] [facility] [address] [place] [address] Jalen Enciso MD [address] [facility] [address] [place] [address] documented as of this encounter Visit Diagnoses Not on filedocumented in this encounter Care Teams Automated Equipment Engineer Technician Relationship Specialty Start Date End Date Kaylene Brooke MD [address] [place] [address] PCP - General General Internal Medicine 01/27/22 Farooq Marcus MD [address] [place] [address] PCP - General Family Medicine 02/27/22 documented as of this encounter
--- OUTSIDE RECORDS SUMMARY | 2024-12-12 10:40 | XMS_ITS | Encounter Summary ---
Author Organization [employer] ([place], [place], [place], [place]) Address [address] [place] [address] Care Team Providers Care Mold Checker Name Role Phone Kaylene Brooke MD Primary Care Provider [phone] Farooq Marcus MD Primary Care Provider Encounter Details Date Type Department Care Team (Late st Contact Info) Description 10/13/2020 Transcribed Document [facility] [place] Family Medicine [address] [place] [address] ProviderRayray MD [address] [place] [address] Social History Tobacco Use Types Packs/Day Years [...] Description 05/25/2025 10:45 AM EDT Office Visit [facility] - [place] [facility] [address] [facility] [address] [place] [address] Jalen Enciso MD [address] [facility] [address] [place] [address] documented as of this encounter Visit Diagnoses Not on filedocumented in this encounter Care Teams Mold Checker Relationship Specialty Start Date End Date Kaylene Brooke MD [address] [place] [address] PCP - General General Internal Medicine 01/27/22 Farooq Marcus MD [address] [place] [address] PCP - General Family Medicine 02/27/22 documented as of this encounter
--- OUTSIDE RECORDS SUMMARY | 2024-12-12 10:40 | XMS_ITS | Encounter Summary ---
Author Organization [employer] ([place], [place], [place], [place]) Address [address] [place] [address] Care Team Providers Care Loan Analyst Name Role Phone Kaylene Brooke MD Primary Care Provider [phone] Farooq Marcus MD Primary Care Provider [phone] Encounter Details Date Type Department Care Team (Late st Contact Info) Description 09/22/2020 Transcribed Document [facility] [place] [address] [place] [address] ProviderRayray MD [address] [place], [place] [address] Social History Tobacco Use Types Packs/Day Years [...] Therapeutic activities PHYLLIS VIEIRA OTR/09/23/2020 15:46 EDT Mcfp Goals, OT Bathing LTG Grid Goal #1 [...] Description 05/25/2025 10:45 AM EDT Office Visit [facility] - [place] [address] [place] [address] Jalen Enciso MD [address] [place] [address] documented as of this encounter Visit Diagnoses Not on filedocumented in this encounter Care Teams Loan Analyst Relationship Specialty Start Date End Date Kaylene Brooke MD [address] [place] [address] PCP - General General Internal Medicine 01/27/22 Farooq Marcus MD [address] [facility] [place] [address] PCP - General Family Medicine 02/27/22 documented as of this encounter
--- OUTSIDE RECORDS SUMMARY | 2024-12-12 10:40 | XMS_ITS | Encounter Summary ---
Author Organization [employer] ([place], [place], [place], [place]) Address [address] [place] [address] Care Team Providers Care Farm Facility Manager Name Role Phone Kaylene Brooke MD Primary Care Provider [phone] Farooq Marcus MD Primary Care Provider [phone] Encounter Details Date Type Department Care Team (Late st Contact Info) Description 10/13/2020 Transcribed Document [facility] [place] Family Medicine [address] [place] [address] Rayray San MD [address] [place], [place] [address] Social History Tobacco Use Types Packs/Day Years [...] these instructions at home: Medicines ??? Take ovif-nib-wutbpak and prescription medicines only as told by [...] provider. Document Revised: 07/16/2018 Document Reviewed: 07/16/2018 [employer] Patient Education ? 2020 Aptible. Electronically signed by Malina Jacob Conversion Early Childhood Services Coordinator Cerner at 06/29/2022 2:20 PM CDT documented in this encounter Plan of Treatment Upcoming Encounters Date Type Department Care Team (Late st Contact Info) Description 05/25/2025 10:45 AM EDT Office Visit [place] [facility] - [address] [facility] [address] [facility] [address] [place] [address] Jalen Enciso MD [address] [place] [address] [place] [address] documented as of this encounter Visit Diagnoses Not on filedocumented in this encounter Care Teams Farm Facility Manager Relationship Specialty Start Date End Date Kaylene Brooke MD [address] [place] [address] PCP - General General Internal Medicine 01/27/22 Farooq Marcus MD [address] [place] [address] PCP - General Family Medicine 02/27/22 documented as of this encounter
--- OUTSIDE RECORDS SUMMARY | 2024-12-12 10:40 | XMS_ITS | Encounter Summary ---
Author Organization [employer] ([place], [place], [place], [place]) Address [address] [place] [address] Care Team Providers Care Rehabilitation Liaison Name Role Phone Kaylene Brooke MD Primary Care Provider [phone] Farooq Marcus MD Primary Care Provider [phone] Encounter Details Date Type Department Care Team (Late st Contact Info) Description 09/28/2020 Transcribed Document [facility] [place] [facility] [place] [address] ProviderRayray MD [address] [place], [place] [address] Social History Tobacco Use Types Packs/Day Years [...] On: 09/28/2020 15:29 EDT by ELIZABETH LAMBERT, RN-Beauty Parlor CleanerTurn Down Attendant Progress Note Discharge Arrangements : Patient Post-Acute Information Patient Name: DOYLE DEL ANGEL Gender: Male : 39 Age: 84 Years No Post-Acute Placement(s) Listed No Post-Acute Service(s) Listed No [place] Referral(s) Listed Is the Patient Meeting Medical Necessity : Yes Did you Attend Multidisciplinary Rounds? : Yes ELIZABETH LAMBERT, RN-Beauty Parlor Cleaner - 09/28/2020 15:29 EDT Narrative Progress Note Narrative Progress Note : rrs mod boost 3 6/5 day s cm spoke to daughter and patient . cm arranged for [facility] and walker from [facility] . choice /im needed . family will transport at discharge [facility] dcp: home hh Historical Progress Note : rrs mod boost 3 5/5 day s cm spoke to daughter and patient . cm arranged for [facility] hh and walker from [facility] . choice /im needed . family will transport at discharge [facility] dcp: home hh ELIZABETH LAMBERT, RN-Beauty Parlor Cleaner - 09/27/20 15:38:46 rrs mod plans pending -[facility] previous charting :DCP: patient states he plans on going home with spouse, who will transport, therapy recommends home health and rolling walker at discharge and patient agrees to this if MD feels appropriate. CM will continue to follow. ELIZABETH LAMBERT, RN-Beauty Parlor Cleaner - 09/24/20 16:39:43 ELIZABETH LAMBERT, RN-Beauty Parlor Cleaner - 09/28/2020 15:29 EDT documented in this encounter Plan of Treatment Upcoming Encounters Date Type Department Care Team (Late st Contact Info) Description 05/25/2025 10:45 AM EDT Office Visit [place] [facility] - [place] [address] [facility] [address] [place] [address] Jalen Enciso MD [address] [place] [address] [place] [address] documented as of this encounter Visit Diagnoses Not on filedocumented in this encounter Care Teams Rehabilitation Liaison Relationship Specialty Start Date End Date Kaylene Brooke MD [address] [place] [address] PCP - General General Internal Medicine 01/27/22 Farooq Marcus MD [address] [place], [place] [address] PCP - General Family Medicine 02/27/22 documented as of this encounter
--- OUTSIDE RECORDS SUMMARY | 2024-12-12 10:40 | XMS_ITS | Encounter Summary ---
Author Organization [employer] ([place], [place], [place], [place]) Address [address] [place] [address] Care Team Providers Care Retail Sales Vitamin Consultant Name Role Phone Kaylene Brooke MD Primary Care Provider [phone] Farooq Marcus MD Primary Care Provider Encounter Details Date Type Department Care Team (Late st Contact Info) Description 10/09/2020 Transcribed Document [facility] [place] [facility] [address] ProviderRayray MD [address] [place] [address] Social History Tobacco Use Types Packs/Day Years [...] other Legal Guardian : No Support Person/Patient Denier Control Operator : Yes Support Person/Pt Rep Name : Brandee Del Angel - Contact Password : Cat Support Person/Pt Rep Contact Information : [phone] Want Family/Rep/Phys Notified of Admit : No [...] From : Patient, Spouse Primary Language : Jordanian Communication Barrier : None Operating Room Coordinator Needed : No Zaida Cortez RN - [...] Level : 46 or > High Risk [place] Fall Interventions : Adequate lighting, Assistive devices [...] days) Smokeless Tobacco Status : Never Zaida Cotrez RN - 10/09/2020 18:47 EDT Social History [...] Source : Stated Height Entry Format : [place] Height, Feet : 6 ft(Converted to: 183 cm, 72 Inch) Height, Inches : 0 Inch(Converted to: 0 ft 0 Inch, 0.00 cm) Clinical Height : 182.88 cm Weight Source : Bed scale Weight Entry Format : [place] Clinical Dosing Weight : 68.18 kg Weight, Pounds : 150 lb Body Surface Area (BSA) : 1.89 m2 Body Mass Index : 20.4 kg/m2 [place] Body Weight : 77 kg Zaida Cortez [...] Zaida Cortez RN - 10/09/2020 18:47 EDT [place] Suicide Severity Rating Scale (C-SSRS) CSSRS Past [...] Description 05/25/2025 10:45 AM EDT Office Visit [facility] - [address] [place] [address] Jalen Enciso MD [address] [place] [address] documented as of this encounter Visit Diagnoses Not on filedocumented in this encounter Care Teams Retail Sales Vitamin Consultant Relationship Specialty Start Date End Date Kaylene Brooke MD [address] [place] [address] PCP - General General Internal Medicine 01/27/22 Farooq Marcus MD [address] [place] [address] PCP - General Family Medicine 02/27/22 documented as of this encounter
--- OUTSIDE RECORDS SUMMARY | 2024-12-12 10:40 | XMS_ITS | Encounter Summary ---
Author Organization [employer] ([place], [place], [place], [place]) Address [address] [place] [address] Care Team Providers Care Supervisor Histology Name Role Phone Kaylene Brooke MD Primary Care Provider [phone] Farooq Marcus MD Primary Care Provider [phone] Encounter Details Date Type Department Care Team (Late st Contact Info) Description 09/22/2020 Transcribed Document [facility] [place] [facility] [place] [address] ProviderRayray MD [address] [place] [address] Social History Tobacco Use Types Packs/Day Years [...] Wheelchair Legal Guardian : Spouse Support Person/Patient Fixed Wing Aircraft Flight Engineer : Yes Support Person/Pt Rep Name : Jamie Del Angel - Support Person/Pt Rep Contact Information : [phone] Want Family/Rep/Phys Notified of Admit : No Emergency Contact #1 : JAMIE Emergency Contact #1 Phone Number : [phone] Emergency Contact #1 Relationship : SPOUSE Emergency Contact #2 : MAZIN Emergency Contact #2 Phone Number : [phone] Emergency Contact #2 Relationship : SON Chief Complaint : c/o generalized abdominal pain, n/v since last night. Temp 102 yesterday per . 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 Enciso. Information Obtained From : Patient Primary Language : Uzbek Communication Barrier : None Director Of Institutional Research Needed : No Sean Guidry Rn - [...] Level : 46 or > High Risk [place] Fall Interventions : Adequate lighting, Assistive devices [...] days) Smokeless Tobacco Status : Never Sean Guidry Rn - 09/22/2020 23:43 EDT Social History [...] Source : Chart Height Entry Format : [place] Height, Feet : 6 ft(Converted to: 183 cm, 72 Inch) Height, Inches : 0 Inch(Converted to: 0 ft 0 Inch, 0.00 cm) Clinical Height : 182.88 cm Weight Source : Bed scale Weight Entry Format : [place] Clinical Dosing Weight : 79.55 kg Weight, Pounds : 175 lb Body Surface Area (BSA) : 2.01 m2 Body Mass Index : 23.8 kg/m2 [place] Body Weight : 77 kg Sean Guidry [...] Guidry I, Rn - 09/22/2020 23:43 EDT [place] Suicide Severity Rating Scale (C-SSRS) CSSRS Past [...] Common streetwear Clothing Disposition : With patient ChaoLorenzo alvareznu Robertson Rn - 09/22/2020 23:43 EDT documented in this encounter Plan of Treatment Upcoming Encounters Date Type Department Care Team (Late st Contact Info) Description 05/25/2025 10:45 AM EDT Office Visit [facility] [place] [facility] [address] [place] [address] Jalen Enciso MD [address] [place] [address] documented as of this encounter Visit Diagnoses Not on filedocumented in this encounter Care Teams Supervisor Histology Relationship Specialty Start Date End Date Kaylene Brooke MD [address] [place] [address] PCP - General General Internal Medicine 01/27/22 Farooq Marcus MD [address] [place], [place] [address] PCP - General Family Medicine 02/27/22 documented as of this encounter
--- OUTSIDE RECORDS SUMMARY | 2024-12-12 10:40 | XMS_ITS | Encounter Summary ---
Author Organization [employer] ([place], [place], [place], [place]) Address [address] [place] [address] Care Team Providers Care Manager Telemarketing Name Role Phone Kaylene Brooke MD Primary Care Provider [phone] Farooq Marcus MD Primary Care Provider [phone] Encounter Details Date Type Department Care Team (Late st Contact Info) Description 10/13/2020 Transcribed Document [facility] [place] Family Medicine [facility] [address] ProviderRayray MD [address] [place], [place] [address] Social History Tobacco Use Types Packs/Day Years [...] Description 05/25/2025 10:45 AM EDT Office Visit [facility] - [address] [place] [address] Jalen Enciso MD [address] [place] [address] documented as of this encounter Visit Diagnoses Not on filedocumented in this encounter Care Teams Manager Telemarketing Relationship Specialty Start Date End Date Kaylene Brooke MD [address] [place] [address] PCP - General General Internal Medicine 01/27/22 Farooq Marcus MD [address] [facility] [place] [address] PCP - General Family Medicine 02/27/22 documented as of this encounter
--- OUTSIDE RECORDS SUMMARY | 2024-12-12 10:40 | XMS_ITS | Encounter Summary ---
Author Organization [employer] ([place], [place], [place], [place]) Address [address] [place] [address] Care Team Providers Care Museum Librarian Name Role Phone Kaylene Brooke MD Primary Care Provider [phone] Farooq Marcus MD Primary Care Provider [phone] Encounter Details Date Type Department Care Team (Late st Contact Info) Description 10/10/2020 Transcribed Document [facility] [place] Family Medicine [address] [place] [address] ProviderRayray MD [address] [place] [address] Social History Tobacco Use Types Packs/Day Years [...] Insurance 1 Health Plan: MEDICARE Policy Number: [id number] Authorization Number: Insurance 2 Health Plan: [employer] Medicare Supplement Policy Number: [id number] Authorization Number: Insurance Primary Name : MEDICARE Policy Number: [id number] [employer] Medicare Supplement Policy Number: [id number] Historical Authorization Comments-Primary : No Authorization Comments Found TERESA GUZMÁN, Rn-Utilization Review - 10/10/2020 8:58 EDT Electronically signed by Nidia [facility] Conversion Supervisor Agricultural Education Cerner at 06/29/2022 2:26 PM CDT documented in this encounter Plan of Treatment Upcoming Encounters Date Type Department Care Team (Late st Contact Info) Description 05/25/2025 10:45 AM EDT Office Visit [facility] - [facility] [address] [place] [address] Jalen Enciso MD [address] [place] [address] documented as of this encounter Visit Diagnoses Not on filedocumented in this encounter Care Teams Museum Librarian Relationship Specialty Start Date End Date Kaylene Brooke MD [address] [place] [address] PCP - General General Internal Medicine 01/27/22 Farooq Marcus MD [address] [place] [address] PCP - General Family Medicine 02/27/22 documented as of this encounter
--- OUTSIDE RECORDS SUMMARY | 2024-12-12 10:40 | XMS_ITS | Encounter Summary ---
Author Organization [employer] ([place], [place], [place], [place]) Address [address] [place] [address] Care Team Providers Care Head Buyer Tobacco Name Role Phone Kaylene Brooke MD Primary Care Provider [phone] Farooq Marcus MD Primary Care Provider [phone] Encounter Details Date Type Department Care Team (Late st Contact Info) Description 10/09/2020 Transcribed Document [facility] [place] Family Medicine [address] [place] [address] ProviderRayray MD [address] [place] [address] Social History Tobacco Use Types Packs/Day Years [...] Noble, Maggie, RN - 10/10/2020 9:10 EDT Electronically signed by Nidia [facility] Conversion Heel Caser Cerner at 06/29/2022 2:31 PM CDT documented in this encounter Plan of Treatment Upcoming Encounters Date Type Department Care Team (Late st Contact Info) Description 05/25/2025 10:45 AM EDT Office Visit [facility] - [address] [place] [address] Jalen Enciso MD [address] [place] [address] documented as of this encounter Visit Diagnoses Not on filedocumented in this encounter Care Teams Head Buyer Tobacco Relationship Specialty Start Date End Date Kaylene Brooke MD [address] [place] [address] PCP - General General Internal Medicine 01/27/22 Farooq Marcus MD [address] [facility] [place] [address] PCP - General Family Medicine 02/27/22 documented as of this encounter
--- OUTSIDE RECORDS SUMMARY | 2024-12-12 10:40 | XMS_ITS | Encounter Summary ---
Author Organization [employer] ([place], [place], [place], [place]) Address [address] [place] [address] Care Team Providers Care Core Oven Tender Name Role Phone Kaylene Brooke MD Primary Care Provider [phone] Farooq Marcus MD Primary Care Provider [phone] Encounter Details Date Type Department Care Team (Late st Contact Info) Description 10/09/2020 Transcribed Document [facility] [place] [facility] [address] ProviderRayray MD [address] [place] [address] Social History Tobacco Use Types Packs/Day Years [...] OCCUPATIONAL THERAPIST NON-EXEMPT - 10/11/2020 15:42 EDT [facility] Goals, OT Grooming LTG Grid Goal #1 [...] OCCUPATIONAL THERAPIST NON-EXEMPT - 10/11/2020 15:42 EDT [place] OT Charges OT Eval Low Complexity : 1 Virginia Gonzalez OCCUPATIONAL THERAPIST NON-EXEMPT - 10/11/2020 15:42 EDT Electronically signed by [facility] Conversion Staffing Clerk Cerner at 06/29/2022 2:42 PM CDT documented in this encounter Plan of Treatment Upcoming Encounters Date Type Department Care Team (Late st Contact Info) Description 05/25/2025 10:45 AM EDT Office Visit [facility] - [address] [facility] [address] [place] [address] Jalen Enciso MD [address] [place] [address] [place] [address] documented as of this encounter Visit Diagnoses Not on filedocumented in this encounter Care Teams Core Oven Tender Relationship Specialty Start Date End Date Kaylene Brooke MD [address] [place] [address] PCP - General General Internal Medicine 01/27/22 Farooq Marcus MD [address] [place] [address] PCP - General Family Medicine 02/27/22 documented as of this encounter
--- OUTSIDE RECORDS SUMMARY | 2024-12-12 10:40 | XMS_ITS | Encounter Summary ---
Author Organization [employer] ([place], [place], [place], [place]) Address [address] [place] [address] Care Team Providers Care Garden Worker Name Role Phone Kaylene Brooke MD Primary Care Provider [phone] Farooq Marcus MD Primary Care Provider [phone] Encounter Details Date Type Department Care Team (Late st Contact Info) Description 10/09/2020 Transcribed Document [facility] [place] Family [place] [facility] [place] [address] ProviderRayray MD [address] [place] [address] Social History Tobacco Use Types Packs/Day Years [...] has a history of anxiety, chest pain, [place], 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 CINDY [...] Good Follows Basic Command Assessment : Yes CINYD DEL RIO PT - 10/11/2020 15:32 EDT [...] DEL RIO, PT - 10/11/2020 15:32 EDT [facility] Goals Ambulation LTG Grid Goal #1 Device [...] DEL RIO, PT - 10/11/2020 15:32 EDT [place] PT Charges PT Eval Low Complexity : 1 CINDY DEL RIO, PT - 10/11/2020 15:32 EDT Electronically signed by [facility], [facility] Conversion Neuro Ophthalmologist Cerner at 06/29/2022 2:37 PM CDT documented in this encounter Plan of Treatment Upcoming Encounters Date Type Department Care Team (Late st Contact Info) Description 05/25/2025 10:45 AM EDT Office Visit [facility] - [address] [facility] [address] [place] [address] Jalen Enciso MD [address] [place] [address] documented as of this encounter Visit Diagnoses Not on filedocumented in this encounter Care Teams Garden Worker Relationship Specialty Start Date End Date Kaylene Brooke MD [address] [place] [address] PCP - General General Internal Medicine 01/27/22 Farooq Marcus MD [address] [place] [address] PCP - General Family Medicine 02/27/22 documented as of this encounter
--- OUTSIDE RECORDS SUMMARY | 2024-12-12 10:40 | XMS_ITS | Encounter Summary ---
Author Organization [employer] ([place], [place], [place], [place]) Address [address] [place] [address] Care Team Providers Care Captain Cannery Tender Name Role Phone Kaylene Brooke MD Primary Care Provider Farooq Marcus MD Primary Care Provider [phone] Encounter Details Date Type Department Care Team (Late st Contact Info) Description 09/28/2020 Transcribed Document [facility] [place] Medicine [address] [place] [address] ProviderRayray MD [address] [place] [address] Social History Tobacco Use Types Packs/Day Years [...] chemo earlier this month. Pt [facility] to [facility] 09/22 for abd pain with N/V. GI consulted, LFTs/pancreatitis likely due to medication/dehydration, LFTs improving. Visited pt, not in room at time of visit. Pt stated he had a good appetite prior to hospitalization, ate 2 meals/day + snacks. No issues chewing/swallowing reported. Pt stated UBW 185#, last known in May 2020 before chemo started, stated CBW 165# (but admit as=437#). RD to reorder wt to confirm. NFPE [...] Esophageal cancer hx of chemo, CAD, HLD, [place], cholecystectomy Meds: aspirin, MVI, immodium, senna, PPI, [...] Description 05/25/2025 10:45 AM EDT Office Visit [facility] - [address] [place] [address] Jalen Enciso MD [address] [place] [address] documented as of this encounter Visit Diagnoses Not on filedocumented in this encounter Care Teams Captain Cannery Tender Relationship Specialty Start Date End Date Kaylene Brooke MD [address] [place] [address] PCP - General General Internal Medicine 01/27/22 Farooq Marcus MD [address], [place] [address] PCP - General Family Medicine 02/27/22 documented as of this encounter
--- OUTSIDE RECORDS SUMMARY | 2024-12-12 10:40 | XMS_ITS | Encounter Summary ---
Author Organization [employer] ([place], [place], [place], [place]) Address [address] [place] [address] Care Team Providers Care Sprayer Machine Name Role Phone Kaylene Brooke MD Primary Care Provider [phone] Farooq Marcus MD Primary Care Provider [phone] Encounter Details Date Type Department Care Team (Late st Contact Info) Description 10/10/2020 Transcribed Document [facility] [place] [facility] [place] [address] ProviderRayray MD [address] [place] [address] Social History Tobacco Use Types Packs/Day Years [...] Description 05/25/2025 10:45 AM EDT Office Visit [facility] - [place] [address] [place] [address] Jalen Enciso MD [address] [place] [address] documented as of this encounter Visit Diagnoses Not on filedocumented in this encounter Care Teams Sprayer Machine Relationship Specialty Start Date End Date Kaylene Brooke MD [address] [place] [address] PCP - General General Internal Medicine 01/27/22 Farooq Marcus MD [address] [place] [place] [address] PCP - General Family Medicine 02/27/22 documented as of this encounter
--- OUTSIDE RECORDS SUMMARY | 2024-12-12 10:40 | XMS_ITS | Encounter Summary ---
Author Organization [employer] ([place], [place], [place], [place]) Address [address] [place] [address] Care Team Providers Care Community Center Director Name Role Phone Kaylene Brooke MD Primary Care Provider [phone] Farooq Marcus MD Primary Care Provider [phone] Encounter Details Date Type Department Care Team (Late st Contact Info) Description 10/13/2020 Transcribed Document [facility] [place] [address] [place] [address] ProviderRayray MD [address] [place] [address] Social History Tobacco Use Types [...] San MD - 10/13/2020 11:38 AM CDT [facility] [place] [place] [id number] [place] :1935 Visit Time:10/10/2020 Your Visit Summary Your Care Team Admitting Physician - KEISHA TUCKER MD Attending Physician - KEISHA TUCKER MD Primary Care Physician - MAZIN SHERIDAN MD-[facility] Referring Physician - SHAINA, NOT LISTED [...] Bring discharge instructions with you. [facility] [address] [address]- Follow Up with MAZIN SHERIDAN MD-FAM When 10/20/2020 10:30 AM EDT Comments PCP follow up. Appointment has been made. Bring discharge instructions with you. Where: [address] [place] [address]- Medications What How Much When Instructions Next Dose erythromycin ophthalmic (erythromycin 0.5% ophthalmic ointment) 1 Application(s) Eye Left Two Times A Day Duration: 5 Day(s) Pickup at [facility] this evening megestrol (Megace 40 mg/ mL oral suspension) 20 Milliliter(s) Oral Every Day Duration: 30 Day(s) Pickup at [facility] tomorrow metoclopramide (Reglan 10 mg oral tablet) 1 Tablet(s) Oral Before Meals and at Bedtime Duration: 14 Day(s) Pickup at [facility] at lunchtime sucralfate (Carafate 1 g/ 10 mL oral suspension) 10 Milliliter(s) Oral Before Meals Duration: 10 Day(s) Pickup at [facility] at lunchtime LORazepam (Ativan 1 mg oral tablet) 1 Tablet(s) Oral Three Times A Day as needed for as needed for anxiety as needed clopidogrel (Plavix 75 mg oral tablet) 1 Tablet(s) Oral Every Day tomorrow venlafaxine (Effexor XR 150 mg oral capsule, extended release) 1 Capsule(s) Oral Every Day NEW DOSE Pickup at [facility] tomorrow aspirin 81 Milligram(s) Oral Every Day tomorrow multivitamin 1 Tablet(s) Oral Every Day tomorrow ondansetron (Zofran 8 mg oral tablet) 1 Tablet(s) Oral Three Times A Day as needed for Nausea as needed pantoprazole (pantoprazole 40 mg oral delayed release tablet) 1 Tablet(s) Oral Every Day tomorrow Pharmacy Information [facility]: [id number] [place] [phone] Take your medications faithfully. Do NOT skip [...] these instructions at home: Medicines ??? Take bjng-glo-vzcocct and prescription medicines only as told by [...] provider. Document Revised: 07/16/2018 Document Reviewed: 07/16/2018 [employer] Patient Education ?? 2020 [employer] metoclopramide (oral/injection) (MET oh TRAN martinez) [...] may report side effects to FDA at 0-296-XUU-8083. What other drugs will affect metoclopramide? Using [...] may affect metoclopramide. This includes prescription and mkia-zrv-hzmuroo medicines, vitamins, and herbal products. Not all [...] to ensure that the information provided by [facility]. ('[employer]') is accurate, up-to-date, and complete, but no guarantee is made to that effect. Drug information contained herein may be time sensitive. [employer] information has been compiled for use by healthcare practitioners and consumers in the [place] and therefore [employer] does not warrant that uses outside of the [place] are appropriate, unless specifically indicated otherwise. [employer] drug information does not endorse drugs, diagnose patients or recommend therapy. [employer] drug information is an informational resource designed [...] effective or appropriate for any given patient. [employer] does not assume any responsibility for any aspect of healthcare administered with the aid of information [employer] provides. The information contained herein is not intended to cover all possible uses, directions, precautions, warnings, drug interactions, allergic reactions, or adverse effects. If you have questions about the drugs you are taking, check with your doctor, nurse or pharmacist. Copyright 8101-4851 [facility]. Version: 12.01. Revision Date: 05/17/2017. erythromycin ophthalmic [...] may report side effects to FDA at 7-289-YES-7640. What other drugs will affect erythromycin ophthalmic? Medicine used in the eyes is not likely to be affected by other drugs you use. But many drugs can interact with each other. Tell each of your healthcare providers about all medicines you use, including prescription and uxwu-pwy-klnvnxv medicines, vitamins, and herbal products. Where can I get more information? Your pharmacist can provide more information about erythromycin ophthalmic. Remember, keep this and all other medicines out of the reach of children, never share your medicines with others, and use this medication only for the indication prescribed. Every effort has been made to ensure that the information provided by [facility]. ('[employer]') is accurate, up-to-date, and complete, but no guarantee is made to that effect. Drug information contained herein may be time sensitive. [employer] information has been compiled for use by healthcare practitioners and consumers in the [place] and therefore [employer] does not warrant that uses outside of the [place] are appropriate, unless specifically indicated otherwise. [employer] drug information does not endorse drugs, diagnose patients or recommend therapy. [employer] drug information is an informational resource designed [...] effective or appropriate for any given patient. [facility] does not assume any responsibility for any aspect of healthcare administered with the aid of information [facility] provides. The information contained herein is not intended to cover all possible uses, directions, precautions, warnings, drug interactions, allergic reactions, or adverse effects. If you have questions about the drugs you are taking, check with your doctor, nurse or pharmacist. Copyright 5606-7149 [facility]. Version: 7.01. Revision Date: 11/07/2017. venlafaxine (CLARA [...] may report side effects to FDA at 1-432-LOC-5334. What other drugs will affect venlafaxine? Using [...] may affect venlafaxine. This includes prescription and vezh-wdd-zdsxmcb medicines, vitamins, and herbal products. Not all [...] to ensure that the information provided by [facility]. ('[employer]') is accurate, up-to-date, and complete, but no guarantee is made to that effect. Drug information contained herein may be time sensitive. [employer] information has been compiled for use by healthcare practitioners and consumers in the [place] and therefore [employer] does not warrant that uses outside of the [place] are appropriate, unless specifically indicated otherwise. [employer] drug information does not endorse drugs, diagnose patients or recommend therapy. [employer] drug information is an informational resource designed [...] effective or appropriate for any given patient. [employer] does not assume any responsibility for any aspect of healthcare administered with the aid of information [employer] provides. The information contained herein is not intended to cover all possible uses, directions, precautions, warnings, drug interactions, allergic reactions, or adverse effects. If you have questions about the drugs you are taking, check with your doctor, nurse or pharmacist. Copyright 9529-7393 [facility]. Version: 16.02. Revision Date: 08/26/2020. sucralfate (oral) [...] may report side effects to FDA at 4-105-JGP-5151. What other drugs will affect sucralfate? Other drugs may affect sucralfate, including prescription and rxue-hxp-aqaauua medicines, vitamins, and herbal products. Tell your [...] to ensure that the information provided by [facility]. ('[employer]') is accurate, up-to-date, and complete, but no guarantee is made to that effect. Drug information contained herein may be time sensitive. [employer] information has been compiled for use by healthcare practitioners and consumers in the [place] and therefore [employer] does not warrant that uses outside of the [place] are appropriate, unless specifically indicated otherwise. [employer] drug information does not endorse drugs, diagnose patients or recommend therapy. [employer] drug information is an informational resource designed [...] effective or appropriate for any given patient. [facility] does not assume any responsibility for any aspect of healthcare administered with the aid of information [employer] provides. The information contained herein is not intended to cover all possible uses, directions, precautions, warnings, drug interactions, allergic reactions, or adverse effects. If you have questions about the drugs you are taking, check with your doctor, nurse or pharmacist. Copyright 5998-2833 [facility]. Version: 12.10. Revision Date: 05/13/2020. megestrol (mirian [...] may report side effects to FDA at 9-280-LZY-1569. What other drugs will affect megestrol? Tell your doctor about all your other medicines, especially: ?? a blood thinner--warfarin, Coumadin, Jantoven. This list is not complete. Other drugs may affect megestrol, including prescription and avjf-plc-anxzudw medicines, vitamins, and herbal products. Not all [...] to ensure that the information provided by [facility]. ('[employer]') is accurate, up-to-date, and complete, but no guarantee is made to that effect. Drug information contained herein may be time sensitive. [employer] information has been compiled for use by healthcare practitioners and consumers in the [place] and therefore [employer] does not warrant that uses outside of the [place] are appropriate, unless specifically indicated otherwise. [employer] drug information does not endorse drugs, diagnose patients or recommend therapy. [employer] drug information is an informational resource designed [...] effective or appropriate for any given patient. [employer] does not assume any responsibility for any aspect of healthcare administered with the aid of information [employer] provides. The information contained herein is not intended to cover all possible uses, directions, precautions, warnings, drug interactions, allergic reactions, or adverse effects. If you have questions about the drugs you are taking, check with your doctor, nurse or pharmacist. Copyright 1424-8647 [facility]. Version: 7.01. Revision Date: 11/08/2018. Emergency Awareness [...] Assistance with quitting is available by contacting 3-614-IJWYRed [employer]NOW. This is a free resource providing counseling, [...] range between ( 0.0 and 7.0 ) [place] #: 0.64 K/uL -- Normal range between ( 0.16 and 1.00 ) Eos #: 0.23 x10(3)/uL -- Normal range between ( 0.00 and 0.80 ) [place] %: 11.7 % -- Normal range between [...] Abnormal Macrocytosis: 1+ ANC #: 3 K/uL [place] Percent Man: 10 % -- Normal range [...] ) Urine Bilirubin Dipstick: Negative Urine Specific [place]: 1.014 -- Normal range between ( 1.005 [...] was given the opportunity to ask questions. Patient/Laboratory Technical Specialist Name: Patient/Laboratory Technical Specialist Signature: Relationship to Patient: Clinician/Hospital Laboratory Technical Specialist Signature: Date: documented in this encounter Plan of Treatment Upcoming Encounters Date Type Department Care Team (Late st Contact Info) Description 05/25/2025 10:45 AM EDT Office Visit [facility] [place] [facility] [address] [place] [address] Jalen Enciso MD [address] [place] [address] documented as of this encounter Visit Diagnoses Not on filedocumented in this encounter Care Teams Community Center Director Relationship Specialty Start Date End Date MendyKaylene dunn MD [address] [place] [address] PCP - General General Internal Medicine 01/27/22 Farooq Marcus MD [address] [place] [address] PCP - General Family Medicine 02/27/22 documented as of this encounter
--- OUTSIDE RECORDS SUMMARY | 2024-12-12 10:40 | XMS_ITS | Encounter Summary ---
Author Organization [employer] ([place], [place], [place], [place]) Address [address] [place] [address] Care Team Providers Care Supervisor Backfilling Name Role Phone Kaylene Brooke MD Primary Care Provider [phone] Farooq Marcus MD Primary Care Provider [phone] Encounter Details Date Type Department Care Team (Late st Contact Info) Description 10/10/2020 Transcribed Document [facility] [place] [address] [place] [address] ProviderRayray MD [address] [place] [address] Social History Tobacco Use Types Packs/Day Years [...] Verbalizes understanding Oral Care : Verbalizes understanding Ed-Cory to bed, light, tv, call device : [...] Description 05/25/2025 10:45 AM EDT Office Visit [facility] [place] [address] [place] [address] Jalen Enciso MD [address] [facility] [address] [place] [address] documented as of this encounter Visit Diagnoses Not on filedocumented in this encounter Care Teams Supervisor Backfilling Relationship Specialty Start Date End Date Kaylene Brooke MD [address] [place] [address] PCP - General General Internal Medicine 01/27/22 Farooq Marcus MD [address] [facility] [place] [address] PCP - General Family Medicine 02/27/22 documented as of this encounter
--- OUTSIDE RECORDS SUMMARY | 2024-12-12 10:40 | XMS_ITS | Encounter Summary ---
Author Organization [employer] ([place], [place], [place], [place]) Address [address] [place] [address] Care Team Providers Care School Boat Driver Name Role Phone Kaylene Brooke MD Primary Care Provider [phone] Farooq Marcus MD Primary Care Provider [phone] Encounter Details Date Type Department Care Team (Late st Contact Info) Description 10/13/2020 Transcribed Document [facility] [place] [address] [place] [address] ProviderRayray MD [address] [place] [address] Social History Tobacco Use Types Packs/Day Years [...] Follow-up Care Details : Physician's office/clinic Ilsa Nair RN - 10/13/2020 10:52 EDT documented in this encounter Plan of Treatment Upcoming Encounters Date Type Department Care Team (Late st Contact Info) Description 05/25/2025 10:45 AM EDT Office Visit [facility] - [place] [address] [place] [address] Jalen Enciso MD [address] [place] [address] documented as of this encounter Visit Diagnoses Not on filedocumented in this encounter Care Teams School Boat Driver Relationship Specialty Start Date End Date Kaylene Brooke MD [address] [place] [address] PCP - General General Internal Medicine 01/27/22 Farooq Marcus MD [address] [place] [address] PCP - General Family Medicine 02/27/22 documented as of this encounter
--- OUTSIDE RECORDS SUMMARY | 2024-12-12 10:40 | XMS_ITS | Encounter Summary ---
Author Organization [employer] ([place], [place], [place], [place]) Address [address] [place] [address] Care Team Providers Care Meter Record Clerk Name Role Phone Kaylene Brooke MD Primary Care Provider Farooq Marcus MD Primary Care Provider [phone] Encounter Details Date Type Department Care Team (Late st Contact Info) Description 09/22/2020 Transcribed Document [facility] [place] [facility] [place] [address] ProviderRayray MD [address] [place] [address] Social History Tobacco Use Types Packs/Day Years [...] Oriented x 4 Attention Assessment : Present AOCSTA REEVES PT - 09/23/2020 11:52 EDT Edu [...] ACOSTA REEVES, PT - 09/23/2020 11:52 EDT Therapeutic Support Staff Goals Ambulation LTG Grid Goal #1 Device [...] 0 Pain Score Post-Intervention. : 0 ACOSTA REEVES PT - 09/23/2020 11:52 EDT Image 1 [...] Description 05/25/2025 10:45 AM EDT Office Visit [facility] - [address] [facility] [place] [address] Jalen Enciso MD [address] [place] [address] documented as of this encounter Visit Diagnoses Not on filedocumented in this encounter Care Teams Meter Record Clerk Relationship Specialty Start Date End Date Kaylene Brooke MD [address] [place] [address] PCP - General General Internal Medicine 01/27/22 Farooq Marcus MD [address], [place] [address] PCP - General Family Medicine 02/27/22 documented as of this encounter
--- OUTSIDE RECORDS SUMMARY | 2024-12-12 10:41 | XMS_ITS | Encounter Summary ---
Author Organization [employer] ([place], [place], [place], [place]) Address [address] [place] [address] Care Team Providers Care Assurance Manager Insurance Name Role Phone Kaylene Brooke MD Primary Care Provider [phone] Farooq Marcus MD Primary Care Provider [phone] Encounter Details Date Type Department Care Team (Late st Contact Info) Description 10/09/2020 Transcribed Document [facility] [place] [facility] [place] [address] ProviderRayray MD [address] [place] [address] Social History Tobacco Use Types Packs/Day Years [...] Zaida Cortez, RN - 10/10/2020 9:00 EDT Electronically signed by Malina Jacob Conversion Fire Extinguisher Repairer Inspector Cerner at 06/29/2022 2:19 PM CDT documented in this encounter Plan of Treatment Upcoming Encounters Date Type Department Care Team (Late st Contact Info) Description 05/25/2025 10:45 AM EDT Office Visit [facility] - [place] [address] [place] [address] Jalen Enciso MD [address] [place] [address] [place] [address] documented as of this encounter Visit Diagnoses Not on filedocumented in this encounter Care Teams Assurance Manager Insurance Relationship Specialty Start Date End Date Kaylene Brooke MD [address] [place] [address] PCP - General General Internal Medicine 01/27/22 Farooq Marcus MD [address] [place] [address] PCP - General Family Medicine 02/27/22 documented as of this encounter
--- OUTSIDE RECORDS SUMMARY | 2024-12-12 10:41 | XMS_ITS | Encounter Summary ---
Author Organization [employer] ([place], [place], [place], [place]) Address [address] [place] [address] Care Team Providers Care Continuous Improvement Coach Name Role Phone Kaylene Brooke MD Primary Care Provider [phone] Farooq Marcus MD Primary Care Provider [phone] Encounter Details Date Type Department Care Team (Late st Contact Info) Description 10/13/2020 Transcribed Document [facility] [place] [facility] [place] [address] ProviderRayray MD [address] [place] [address] Social History Tobacco Use Types Packs/Day Years [...] Date 10/13/2020 Primary Care Provider MAZIN SHERIDAN MD-[facility] Discharge Diagnosis Severe protein-calorie malnutrition 10/13/2020 E43 [...] Disposition Home Discharge Follow Up MAZIN SHERIDAN MD-[facility] - Within 1 week Discharge Medications (11) [...] tolerated Pending Labs In Process SENDOUT REPORT [id number], [id number], RT - Routine, 10/12/20 8:12:00 EDT Pathology Tissue Request [id number], [id number], 10/12/20 8:12:00 EDT, Collected, RT - Routine, [...] Description 05/25/2025 10:45 AM EDT Office Visit [facility] - [address] [facility] [address] [place] [address] Jalen Enciso MD [address] [place] [address] documented as of this encounter Visit Diagnoses Not on filedocumented in this encounter Care Teams Continuous Improvement Coach Relationship Specialty Start Date End Date Kaylene Brooke MD [address] [place] [address] PCP - General General Internal Medicine 01/27/22 Farooq Marcus MD [address] [place] [address] PCP - General Family Medicine 02/27/22 documented as of this encounter
--- OUTSIDE RECORDS SUMMARY | 2024-12-12 10:41 | XMS_ITS | Encounter Summary ---
Author Organization [employer] ([place], [place], [place], [place]) Address [address] [place] [address] Care Team Providers Care Global Account Director Name Role Phone Kaylene Brooke MD Primary Care Provider [phone] aFrooq Marcus MD Primary Care Provider [phone] Encounter Details Date Type Department Care Team (Late st Contact Info) Description 09/22/2020 Transcribed Document [facility] [place] Family Medicine [facility] [place] [address] ProviderRayray MD [address] [place], [place] [address] Social History Tobacco Use Types Packs/Day Years [...] : 2 - Emergent Tracking Group : [facility] ED Anu Evans RN - 09/22/2020 9:45 [...] 09:50:12 EDT) Problems(Active) Anxiety disorder (SNOMED CT :127103594 ) Name of Problem: Anxiety disorder ; Recorder: ERIKA AKERS APRN-INT; Confirmation: Confirmed ; Classification: Medical ; Code: [id number] ; Contributor System: Adnexus ; Last Updated: 04/22/2014 0:56 EST ; Life Cycle Date: 04/22/2014 ; Life Cycle Status: Active ; Responsible Provider: ERIKA AKERS APRN-INT; Vocabulary: SNOMED CT At risk for sleep apnea (IMO :25754071 ) Name of Problem: At risk for sleep apnea ; Recorder: SYSTEM, SYSTEM; Confirmation: Confirmed ; Classification: Medical ; Code: [id number] ; Last Updated: 09/08/2020 8:44 EDT ; Life Cycle Date: 09/08/2020 ; Life Cycle Status: Active ; Vocabulary: IMO Chest pain with high risk for cardiac etiology (SNOMED CT :50804775 ) Name of Problem: Chest pain with high risk for cardiac etiology ; Recorder: ERIKA AKERS APRN-INT; Confirmation: Confirmed ; Classification: Medical ; Code: 90777876 ; Contributor System: Adnexus ; Last Updated: 04/22/2014 0:56 EST ; Life Cycle Status: Active ; Responsible Provider: ERIKA AKERS APRN-INT; Vocabulary: SNOMED CT Esophagus cancer (SNOMED CT :228068704 ) Name of Problem: Esophagus cancer ; Recorder: JUVE GILBERT Rn-Clinical Coordinator I; Confirmation: Confirmed ; Classification: Patient Stated ; Code: 675176931 ; Contributor System: TapIn.tvChart ; Last Updated: 09/08/2020 8:36 EDT ; Life Cycle Date: 09/08/2020 ; Life Cycle Status: Active ; Vocabulary: SNOMED CT Hyperlipidemia (SNOMED CT :32331144 ) Name of Problem: Hyperlipidemia ; Recorder: ERIKA BOYER MD-EMR; Confirmation: Confirmed ; Classification: Medical ; Code: 49306584 ; Contributor System: TapIn.tvChart ; Last Updated: 04/21/2014 20:55 EST ; Life Cycle Date: 04/21/2014 ; Life Cycle Status: Active ; Responsible Provider: ERIKA BOYER MD-EMR; Vocabulary: SNOMED CT Leg neuralgia (SNOMED CT :21346347 ) Name of Problem: Leg neuralgia ; Recorder: ERIKA AKERS APRN-INT; Confirmation: Confirmed ; Classification: Medical ; Code: 10433510 ; Contributor System: TapIn.tvChart ; Last Updated: 04/22/2014 0:56 EST ; Life Cycle Date: 04/22/2014 ; Life Cycle Status: Active ; Responsible Provider: AKERS, ERIKA BOBBY, ASSEMBLY WORKER-INT; Vocabulary: SNOMED CT Myocardial infarction (SNOMED CT :67071015 ) Name of Problem: Myocardial infarction ; Recorder: JUVE GILBERT Rn-Clinical Coordinator I; Confirmation: Confirmed ; Classification: Patient Stated ; Code: 08348262 ; Contributor System: Adnexus ; Last Updated: 09/08/2020 8:36 EDT ; Life Cycle Date: 09/08/2020 ; Life Cycle Status: Active ; Vocabulary: SNOMED CT Diagnoses(Active) Abdominal pain Date: 09/22/2020 ; Diagnosis Type: Reason For Visit ; Confirmation: Complaint of ; Clinical Dx: Abdominal pain ; Classification: Medical ; Clinical Service: Non-Specified ; Code: PNED ; Probability: 0 ; Diagnosis Code: [id number] ED Height and Weight Height Source : Stated Height Entry Format : Pride Height, Feet : 6 ft(Converted to: 183 cm, 72 Inch) Height, Inches : 0 Inch(Converted to: 0 ft 0 Inch, 0.00 cm) Clinical Height : 182.88 cm Weight Source, ED : Critical estimated dosing weight Weight Entry Format : Pride Weight, Pounds : 175 lb Clinical Dosing Weight : 79.55 kg Body Surface Area (BSA) : 2.01 m2 Body Mass Index : 23.8 kg/m2 [place] Body Weight (IBW) : 76.59 kg Anu [...] Description 05/25/2025 10:45 AM EDT Office Visit [facility] Oncology - [address] [place] [address] Jalen Enciso MD [address] [facility] [address] [place] [address] documented as of this encounter Visit Diagnoses Not on filedocumented in this encounter Care Teams Global Account Director Relationship Specialty Start Date End Date Kaylene Brooke MD [address] [place] [address] PCP - General General Internal Medicine 01/27/22 Farooq Marcus MD [address] [place] [address] PCP - General Family Medicine 02/27/22 documented as of this encounter
--- OUTSIDE RECORDS SUMMARY | 2024-12-12 10:41 | XMS_ITS | Encounter Summary ---
Author Organization [employer] ([place], [place], [place], [place]) Address [address] [place] [address] Care Team Providers Care Underground Truck Operator Name Role Phone Kaylene Brooke MD Primary Care Provider [phone] Farooq Marcus MD Primary Care Provider [phone] Encounter Details Date Type Department Care Team (Late st Contact Info) Description 10/13/2020 Transcribed Document [facility] [place] Family Medicine [facility] [place] [address] ProviderRayray MD [address] [place] [address] Social History Tobacco Use Types Packs/Day Years Used Date Smoking Tobacco: Never Assessed Sex and Gender Information Value Date Recorded Sex Assigned at Not on file Legal Sex Male 5:14 PM CDT Gender Identity Not on file Sexual Orientation Not on file documented as of this encounter Miscellaneous Notes * Cerner Conversion Note - Rayray ProviderMD - 10/13/2020 2:00 AM CDT Processing Associate Details Entered On: 10/13/2020 2:25 EDT Performed [...] Description 05/25/2025 10:45 AM EDT Office Visit [facility] - [address] [place] [address] Jalen Enciso MD [address] [place] [address] documented as of this encounter Visit Diagnoses Not on filedocumented in this encounter Care Teams Underground Truck Operator Relationship Specialty Start Date End Date Kaylene Brooke MD [address] [place] [address] PCP - General General Internal Medicine 01/27/22 Farooq Marcus MD [address] [place] [address] PCP - General Family Medicine 02/27/22 documented as of this encounter
--- OUTSIDE RECORDS SUMMARY | 2024-12-12 10:41 | XMS_ITS | Encounter Summary ---
Author Organization [employer] ([place], [place], [place], [place]) Address [address] [place] [address] Care Team Providers Care Mail Order Clerk Name Role Phone Kaylene Brooke MD Primary Care Provider [phone] Farooq Marcus MD Primary Care Provider [phone] Encounter Details Date Type Department Care Team (Late st Contact Info) Description 10/12/2020 Transcribed Document [facility] [place] Family Medicine [address] [place] [address] ProviderRayray MD [address] [place], [place] [address] Social History Tobacco Use Types Packs/Day Years Used Date Smoking Tobacco: Never Assessed Sex and Gender Information Value Date Recorded Sex Assigned at Not on file Legal Sex Male 5:14 PM CDT Gender Identity Not on file Sexual Orientation Not on file documented as of this encounter Miscellaneous Notes * Cerner Conversion Note - Rayray ProviderMD - 10/12/2020 2:00 AM CDT Director Script Details Entered On: 10/12/2020 1:13 EDT Performed [...] Description 05/25/2025 10:45 AM EDT Office Visit [facility] - [address] [place] [address] Jalen Enciso MD [address] [place] [address] documented as of this encounter Visit Diagnoses Not on filedocumented in this encounter Care Teams Mail Order Clerk Relationship Specialty Start Date End Date MendyKaylene dunn MD [address] [place] [address] PCP - General General Internal Medicine 01/27/22 Farooq Marcus MD [address] [facility] [place] [address] PCP - General Family Medicine 02/27/22 documented as of this encounter
--- OUTSIDE RECORDS SUMMARY | 2024-12-12 10:41 | XMS_ITS | Encounter Summary ---
Author Organization [employer] ([place], [place], [place], [place]) Address [address] [place] [address] Care Team Providers Care Infection Control Practitioner Name Role Phone Kaylene Brooke MD Primary Care Provider [phone] Farooq Marcus MD Primary Care Provider [phone] Encounter Details Date Type Department Care Team (Late st Contact Info) Description 09/23/2020 Transcribed Document [facility] [place] Family Medicine [facility] [place] [address] ProviderRayray MD [address] [place] [address] Social History Tobacco Use Types Packs/Day Years [...] : 09/22/2020 16:03 Co-treated by, OT : clinical research assistant (SKULL GRINDER) Personal Devices : Personal Devices No Devices [...] PRISCILLA GARY OTR/Tre - 09/24/2020 14:05 EDT Manufacturing Quality Engineer Goals, OT Bathing LTG Grid Goal #1 [...] 09/24/2020 14:05 EDT Electronically signed by Nidia [facility] Conversion Drop Hammer Setter Up Cerner at 07/02/2022 4:56 PM CDT documented in this encounter Plan of Treatment Upcoming Encounters Date Type Department Care Team (Late st Contact Info) Description 05/25/2025 10:45 AM EDT Office Visit [facility] - [place] [address] [facility] [address] [place] [address] Jalen Enciso MD [address] [facility] [address] [place] [address] documented as of this encounter Visit Diagnoses Not on filedocumented in this encounter Care Teams Infection Control Practitioner Relationship Specialty Start Date End Date Kaylene Brooke MD [address] [place] [address] PCP - General General Internal Medicine 01/27/22 Farooq Marcus MD [address] [facility] [place] [address] PCP - General Family Medicine 02/27/22 documented as of this encounter
--- OUTSIDE RECORDS SUMMARY | 2024-12-12 10:41 | XMS_ITS | Encounter Summary ---
Author Organization [employer] ([place], [place], [place], [place]) Address [address] [place] [address] Care Team Providers Care Associate Professor Of Pathology Name Role Phone Kaylene Brooke MD Primary Care Provider [phone] Farooq Marcus MD Primary Care Provider [phone] Encounter Details Date Type Department Care Team (Late st Contact Info) Description 09/24/2020 Transcribed Document [facility] [place] [address] [place] [address] ProviderRayray MD [address] [place], [place] [address] Social History Tobacco Use Types Packs/Day Years [...] 0.9% 250 mL 1,250 mg, IV Piggyback, [id number] Continuous: (1) NaCl 0.9% 1,000 mL 1,000 [...] blood counts. Discvussed jonathan patient and spouse. documented in this encounter Plan of Treatment Upcoming Encounters Date Type Department Care Team (Late st Contact Info) Description 05/25/2025 10:45 AM EDT Office Visit [facility] - [address] [place] [address] Jalen Enciso MD [address] [place] [address] documented as of this encounter Visit Diagnoses Not on filedocumented in this encounter Care Teams Associate Professor Of Pathology Relationship Specialty Start Date End Date Kaylene Brooke MD [address] [place] [address] PCP - General General Internal Medicine 01/27/22 Farooq Marcus MD [address] [facility] [place] [address] PCP - General Family Medicine 02/27/22 documented as of this encounter
--- OUTSIDE RECORDS SUMMARY | 2024-12-12 10:41 | XMS_ITS | Encounter Summary ---
Author Organization [employer] ([place], [place], [place], [place]) Address [address] [place] [address] Care Team Providers Care Exhibition Specialist Name Role Phone Kaylene Brooke MD Primary Care Provider [phone] Farooq Marcus MD Primary Care Provider [phone] Encounter Details Date Type Department Care Team (Late st Contact Info) Description 10/12/2020 Transcribed Document [facility] [place] [address] [place] [address] ProviderRayray MD [address] [place], [place] [address] Social History Tobacco Use Types Packs/Day Years Used Date Smoking Tobacco: Never Assessed Sex and Gender Information Value Date Recorded Sex Assigned at Not on file Legal Sex Male 5:14 PM CDT Gender Identity Not on file Sexual Orientation Not on file documented as of this encounter Miscellaneous Notes * Cerner Conversion Note - Rayray ProviderMD - 10/12/2020 8:09 AM CDT [facility] Endo IntraOp Summary Primary Physician: NATE KINNEY MD Finalized Date/Time: 10/12/20 08:16:28 Pt. Name: RANCHO DEL ANGEL Jesse Leal/Sex: 1935 Male Med Rec #: [id number] Physician: PARKER RAVI MD-INT Financial #: [id number] Pt. Type: I Room/Bed: [facility]/ Admit/Disch: 10/10/20 10:58:00 - Institution: [facility] Endo - Case Attendance Entry 1 Entry 2 Entry 3 Case Attendee NATE KINNEY MD Walker, Mary B, MIKKI Dowling Role Performed Surgeon/Proceduralist, Parking Lot Spotter, First Scrub, First First Time In 10/12/20 [...] LOPEZ CRNA BURBERRY, KEITH, MD-ANS Role Performed LEAD ADVISOR/Nurse Audio Experience Expert Anesthesiologist of Record Time In 10/12/20 08:00:00 10/12/20 08:00:00 Time Out 10/12/20 08:16:00 10/12/20 08:16:00 Procedure Esophagogastroduodenosco Esophagogastroduodenosco py, Gastric Biopsy py, Gastric Biopsy Other Attendee Superficial Wound Closed By: Last Modified By: Mari Holly Rn Walker, Mary B, Rn 10/12/20 08:15:02 10/12/20 08:15:02 [facility] Endo - Case Attendance Audit 10/12/20 08:15:02 Electrical Estimator: [id number] Modifier: [id number] 1 <+> Time Out 1 <*> Procedure Esophagogastroduodenoscopy, Gastric Biopsy 2 <+> Time Out 2 <*> Procedure Esophagogastroduodenoscopy, Gastric Biopsy 3 <+> Time Out 3 <*> Procedure Esophagogastroduodenoscopy, Gastric Biopsy 4 <+> Time Out 4 <*> Procedure Esophagogastroduodenoscopy, Gastric Biopsy 5 <+> Time Out 5 <*> Procedure Esophagogastroduodenoscopy, Gastric Biopsy 10/12/20 08:12:37 Electrical Estimator: [id number] Modifier: [id number] 1 <*> Procedure Esophagogastroduodenoscopy 2 <*> Procedure Esophagogastroduodenoscopy 3 <*> Procedure Esophagogastroduodenoscopy 4 <*> Procedure Esophagogastroduodenoscopy 5 <*> Procedure Esophagogastroduodenoscopy 10/12/20 08:05:35 Electrical Estimator: [id number] Modifier: [id number] 1 <+> Time In 1 <*> Procedure Esophagogastroduodenoscopy 2 <+> Time In 2 <*> Procedure Esophagogastroduodenoscopy 3 <+> Time In 3 <*> Procedure Esophagogastroduodenoscopy 4 <+> Time In 4 <*> Procedure Esophagogastroduodenoscopy 5 <+> Time In 5 <*> Procedure Esophagogastroduodenoscopy 10/12/20 08:02:15 Electrical Estimator: [id number] Modifier: [id number] <+> 5 Case Attendee <+> 5 Role Performed <+> 5 Procedure 10/12/20 07:57:26 Electrical Estimator: [id number] Modifier: [id number] <+> 2 Case Attendee <+> 2 Role Performed <+> 2 Procedure <+> 3 Case Attendee <+> 3 Role Performed <+> 3 Procedure <+> 4 Case Attendee <+> 4 Role Performed <+> 4 Procedure [facility] Endo - Case times Entry 1 Patient In Room Time 10/12/20 08:00:00 Out Room Time 10/12/20 08:16:00 Anesthesia Start Time 10/12/20 08:00:00 Stop Time 10/12/20 08:16:00 Surgery / Procedure Times Start Time 10/12/20 08:09:00 Stop Time 10/12/20 08:14:00 Last Modified By: Mari Holly Rn 10/12/20 08:14:36 [facility] Endo - Case times Audit 10/12/20 08:14:36 Electrical Estimator: [id number] Modifier: [id number] <+> 1 Out Room Time <+> 1 Stop Time <+> 1 Stop Time 10/12/20 08:09:07 Electrical Estimator: [id number] Modifier: [id number] <+> 1 Start Time [facility] Endo - Cultures and Spec Summary Entry 1 Cultrures and Specimens Specimen Ordered: Yes Test(s) Routine/Path-Lab Requested/Final Disposition Last Modified By: Mari Holly Rn 10/12/20 08:13:55 [facility] Endo - Delays Entry 1 Delay Reason Other Duration 0 Minute(s) Last Modified By: Mari Holly Rn 10/12/20 08:02:27 [facility] Endo - Departure from OR Entry 1 Integumentary Assessment Integumentary WDL Assessment WDL Transfer/Handoff Transfer to PACU Phase I Post-op Transport Stretcher/Gurney Via Patient Transport Mari Holly, Rn, Accompanied by DELMER LOPEZ CRNA Last Modified By: Mari Holly, Marty 10/12/20 08:02:33 [facility] Endo - Endoscopy Details Entry 1 Abdomen Procedure Soft, Non-Tender Assessment Procedure Abdomen 10/12/20 08:00:00 Assessment D/T Radio Frequency Ablation Abdominal Pressure Last Modified By: Mari Holly Rn 10/12/20 08:02:48 [facility] Endo - Fire Risk Assessment Entry 1 Fire Info Surgical Site or 1- Yes Incision Above the Xyphoid Open O2 Source 1- Yes (Mask or Cannula) Available Ignition 1- Yes (ESU, Laser, Light Source) Fire Risk 3 Assessment Score Fire Score Fire Risk Yes Assessment Complete Fire Risk Mari Holly, Honing Machine Set Up Operator Verified By Fire Risk 10/12/20 08:00:00 Assessment Verified Date/Time Fire Risk High Risk Protocol Yes Implemented Standard Fire Yes Safety Precautions Followed Last Modified By: Mari Holly Rn 10/12/20 08:03:28 [facility] Endo - General Case Evp [place] 1 Case Information OR Endo 03 [facility] Case Level 1 Room Verified Yes Wound Class II - Clean-Contaminated Specialty Gastroenterology Anesthesia Type MAC ASA Class 4 Diagnosis Preop Diagnosis nausea and vomiting Postop Same As Preop No Postop Diagnosis hiatal hernia, gastric erythema Last Modified By: Mari Holly Rn 10/12/20 08:05:26 [facility] Endo - General Case Data Audit 10/12/20 08:13:36 Electrical Estimator: [id number] Modifier: [id number] 1 <*> Postop Diagnosis hiatal hernia 10/12/20 08:10:39 Electrical Estimator: [id number] Modifier: [id number] <+> 1 Postop Diagnosis 10/12/20 08:08:21 Electrical Estimator: [id number] Modifier: [id number] 1 <+> Postop Same As Preop 1 <*> Preop Diagnosis nausea 10/12/20 08:08:05 Electrical Estimator: [id number] Modifier: [id number] <+> 1 Preop Diagnosis 10/12/20 08:05:26 Electrical Estimator: [id number] Modifier: [id number] <+> 1 ASA Class 10/12/20 08:03:22 Electrical Estimator: [id number] Modifier: [id number] 1 <-> Preop Diagnosis R63.0/R11.2 [facility] Endo - Intraoperative Assessment Entry 1 Valid History / Yes Physical in Chart Preoperative Yes Checklist Reviewed/Evaluated Patient is Latex No Sensitive Level of WDL Consciousness (WDL = Alert, Oriented to Person, Place, and Time) Last Modified By: Mari Holly Rn 10/12/20 08:04:06 [facility] Endo - Intraoperative Equipment Entry 1 Equipment Intraop Monitoring Electrocardiogram Three lead placement (ECG) Electrode Placement Blood Pressure Arm, left upper Location Pulse Oximeter Hand, right Probe Site Antiembolic Devices Scopes Flexible Endoscopes Gastroscope Used Scope Serial K Number/Identificatio n Number Photo/Video Documentation Photo Yes Video No Last Modified By: Mari Holly Rn 10/12/20 07:57:53 [facility] Endo - Patient Positioning Entry 1 [...] Modified By: Mari Holly Rn 10/12/20 08:04:04 [facility] Endo - Patient Positioning Audit 10/12/20 08:12:38 Electrical Estimator: [id number] Modifier: [id number] 1 <*> Procedure Esophagogastroduodenoscopy [facility] Endo - Sign In Entry 1 Patient, Site, Yes Procedure Identified Surgical Consent Yes Confirmed Relevant Surgical Yes Documents Available Surgical Site N/A Marked by person performing procedure Airway Hypothermia Risk No Warming Measures No Taken Last Modified By: Mari Holly Rn 10/12/20 07:57:39 [facility] Endo - Sign Out Entry 1 [...] Modified By: Mari Holly Rn 10/12/20 08:14:51 [facility] Endo - Surgical Procedures Entry 1 Entry 2 Procedure Esophagogastroduodenosco Gastric Biopsy py Modifiers Additional Procedure Description Primary Procedure Yes No Primary Surgeon NATE KINNEY MD ASLAM, BILAL, MD Start 10/12/20 08:09:00 10/12/20 08:09:00 Stop 10/12/20 08:14:00 10/12/20 08:14:00 Physician States Cecum Reached Anesthesia Type [facility] Specialty Gastroenterology Gastroenterology Wound Class II - Clean-Contaminated II - Clean-Contaminated Last Modified By: Mari Holly Rn Walker, Mary B, Rn 10/12/20 07:57:32 10/12/20 08:12:35 [facility] Endo - Surgical Procedures Audit 10/12/20 08:14:56 Electrical Estimator: [id number] Modifier: [id number] <+> 1 Stop <+> 2 Stop 10/12/20 08:12:35 Electrical Estimator: [id number] Modifier: [id number] <+> 1 Start <+> 2 Procedure <+> 2 Primary Procedure <+> 2 Primary Surgeon <+> 2 Specialty <+> 2 Start <+> 2 Wound Class <+> 2 Anesthesia Type [facility] Endo - Time Out Entry 1 [...] Modified By: Mari Holly Rn 10/12/20 08:12:38 [facility] Endo - Time Out Audit 10/12/20 08:12:38 Electrical Estimator: [id number] Modifier: [id number] 1 <*> Procedure to be Performed Esophagogastroduodenoscopy 10/12/20 08:07:28 Electrical Estimator: [id number] Modifier: [id number] 1 <*> Time Out Pause Time 10/12/20 08:03:00 1 <*> Procedure to be Performed Esophagogastroduodenoscopy Case Comments <None> Finalized By: Mari Holly, Rn Document Signatures Signed By: Mari Holly Rn 10/12/20 08:16 Electronically signed by Nidia [facility] Conversion Certified Nurse Practitioner Cerner at 06/29/2022 2:14 PM CDT documented in this encounter Plan of Treatment Upcoming Encounters Date Type Department Care Team (Late st Contact Info) Description 05/25/2025 10:45 AM EDT Office Visit [facility] [address] [facility] [address] [place] [address] Jalen Enciso MD [address] [place] [address] documented as of this encounter Visit Diagnoses Not on filedocumented in this encounter Care Teams Exhibition Specialist Relationship Specialty Start Date End Date Kaylene Brooke MD [address] [place] [address] PCP - General General Internal Medicine 01/27/22 Farooq Marcus MD [address] [facility] [place] [address] PCP - General Family Medicine 02/27/22 documented as of this encounter
--- OUTSIDE RECORDS SUMMARY | 2024-12-12 10:41 | XMS_ITS | Encounter Summary ---
Author Organization [employer] ([place], [place], [place], [place]) Address [address] [place] [address] Care Team Providers Care Concession Supervisor Name Role Phone Kaylene Brooke MD Primary Care Provider [phone] Farooq Marcus MD Primary Care Provider [phone] Encounter Details Date Type Department Care Team (Late st Contact Info) Description 10/11/2020 Transcribed Document [facility] [place] [address] ProviderRayray MD [address] [place], [place] [address] Social History Tobacco Use Types Packs/Day Years [...] 10/11/2020 16:55 EDT Electronically signed by Nidia [facility] Conversion Bedspread Seamer Cerner at 06/29/2022 2:26 PM CDT documented in this encounter Plan of Treatment Upcoming Encounters Date Type Department Care Team (Late st Contact Info) Description 05/25/2025 10:45 AM EDT Office Visit [facility] - [address] [place] [address] Jalen Enciso MD [address] [place] [address] documented as of this encounter Visit Diagnoses Not on filedocumented in this encounter Care Teams Concession Supervisor Relationship Specialty Start Date End Date aKylene Brooke MD [address] [place] [address] PCP - General General Internal Medicine 01/27/22 Farooq Marcus MD [address] [facility] [place] [address] PCP - General Family Medicine 02/27/22 documented as of this encounter
--- OUTSIDE RECORDS SUMMARY | 2024-12-12 10:41 | XMS_ITS | Encounter Summary ---
Author Organization [employer] ([place], [place], [place], [place]) Address [address] [place] [address] Care Team Providers Care Termite Technician Name Role Phone Kaylene Brooke MD Primary Care Provider [phone] Farooq Marcus MD Primary Care Provider [phone] Encounter Details Date Type Department Care Team (Late st Contact Info) Description 10/09/2020 Transcribed Document [facility] [place] Family Medicine [address] [place] [address] ProviderRayray MD [address] [place] [address] Social History Tobacco Use Types Packs/Day Years Used Date Smoking Tobacco: Never Assessed Sex and Gender Information Value Date Recorded Sex Assigned at Not on file Legal Sex Male 5:14 PM CDT Gender Identity Not on file Sexual Orientation Not on file documented as of this encounter Miscellaneous Notes * Cerner Conversion Note - Rayray ProviderMD - 10/09/2020 12:19 PM CDT [place] Suicide Severity Rating Scale (C-SSRS) Entered On: 10/09/2020 14:00 EDT Performed On: 10/09/2020 13:56 EDT by PRISCILLA JUAN RN [place] Suicide Severity Rating Scale (C-SSRS) CSSRS Past [...] Description 05/25/2025 10:45 AM EDT Office Visit [facility] - [address] [place] [address] Jalen Enciso MD [address] [place] [address] documented as of this encounter Visit Diagnoses Not on filedocumented in this encounter Care Teams Termite Technician Relationship Specialty Start Date End Date Kaylene Brooke MD [address] [place] [address] PCP - General General Internal Medicine 01/27/22 Farooq Marcus MD [address] [place] [address] PCP - General Family Medicine 02/27/22 documented as of this encounter
--- OUTSIDE RECORDS SUMMARY | 2024-12-12 10:41 | XMS_ITS | Encounter Summary ---
Author Organization [employer] ([place], [place], [place], [place]) Address [address] [place] [address] Care Team Providers Care Care Taker Name Role Phone Kaylene Brooke MD Primary Care Provider [phone] Farooq Marcus MD Primary Care Provider [phone] Encounter Details Date Type Department Care Team (Late st Contact Info) Description 09/25/2020 Transcribed Document [facility] [place] [address] [place] [address] ProviderRayray MD [address] [place], [place] [address] Social History Tobacco Use Types Packs/Day Years [...] months ago with dr topete done at [facility] -pt stopped taking brilinta on his own accord shortly after the PCI as it was making him sob -on aspirin 81 mg daily. plavix started here syncope 2 weeks ago two weeks prior to admission, was at [facility] for this stay. depression -start on antidepressant last week with dr enciso -pt and unsure what medication this was. 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 -follows with dr topete and dr [place]: Hope to advance diet tomorrow VTE Prophylaxis [...] ALYC # 0 K/uL 09/25/2020 05:50 EDT [place] Percent Man 6 % (High) 09/25/2020 05:50 EDT [place] Percent Man 1 % 09/25/2020 05:50 EDT RBC Morphology Abnormal 09/25/2020 05:50 EDT Ovalocytes 1+ (Abnormal) 09/25/2020 05:[address] Estimate Decreased (Abnormal) 09/25/2020 05:50 EDT Slide Review Add Diff 09/25/2020 05:50 EDT Procalcitonin 8.54 ng/mL (High) 09/25/2020 05:50 EDT Electronically signed by Malina Jacob [employer] Department Head Cerner at 06/29/2022 2:31 PM CDT documented in this encounter Plan of Treatment Upcoming Encounters Date Type Department Care Team (Late st Contact Info) Description 05/25/2025 10:45 AM EDT Office Visit [facility] - [address] [place] [address] Jalen Enciso MD [address] [facility] [address] [place] [address] documented as of this encounter Visit Diagnoses Not on filedocumented in this encounter Care Teams Care Taker Relationship Specialty Start Date End Date Kaylene Brooke MD [address] [place] [address] PCP - General General Internal Medicine 01/27/22 Farooq Marcus MD [address] [place] [address] PCP - General Family Medicine 02/27/22 documented as of this encounter
--- OUTSIDE RECORDS SUMMARY | 2024-12-12 10:41 | XMS_ITS | Encounter Summary ---
Author Organization [employer] ([place], [place], [place], [place]) Address [address] [place] [address] Care Team Providers Care Religious Education Coordinator Name Role Phone Kaylene Brooke MD Primary Care Provider [phone] Farooq Marcus MD Primary Care Provider [phone] Encounter Details Date Type Department Care Team (Late st Contact Info) Description 10/12/2020 Transcribed Document [facility] [place] [address] [place] [address] ProviderRayray MD [address] [place], [place] [address] Social History Tobacco Use Types Packs/Day Years [...] Description 05/25/2025 10:45 AM EDT Office Visit [facility] - [facility] [address] [facility] [address] [place] [address] Jalen Enciso MD [address] [facility] [address] [place] [address] documented as of this encounter Visit Diagnoses Not on filedocumented in this encounter Care Teams Religious Education Coordinator Relationship Specialty Start Date End Date Kaylene Brooke MD [address] [place] [address] PCP - General General Internal Medicine 01/27/22 Farooq Marcus MD [address] [place] [address] PCP - General Family Medicine 02/27/22 documented as of this encounter
--- OUTSIDE RECORDS SUMMARY | 2024-12-12 10:41 | XMS_ITS | Encounter Summary ---
Author Organization [employer] ([place], [place], [place], [place]) Address [address] [place] [address] Care Team Providers Care Tin Assorter Name Role Phone Kaylene Brooke MD Primary Care Provider [phone] Farooq Marcus MD Primary Care Provider Encounter Details Date Type Department Care Team (Late st Contact Info) Description 10/12/2020 Transcribed Document [facility] [place] [facility] [place] [address] Rayray San MD [address] [place] [address] Social History Tobacco Use Types Packs/Day Years [...] 1935 *Operation Esophagogastroduodenoscopy, Gastric Biopsy, Anesthesia Type LABERTO DANG MD-ANS (Anesthesiologist of Record) ALBERTO DANG MD-ANS (Anesthesiologist of Record) Indication for Surgery [...] 08:09:00 (10/12/20 08:12:35) Electronically signed by Nidia, [facility] Conversion Medical Collections Representative Cerner at 06/29/2022 2:11 PM CDT documented in this encounter Plan of Treatment Upcoming Encounters Date Type Department Care Team (Late st Contact Info) Description 05/25/2025 10:45 AM EDT Office Visit [place] [facility] - [place] [address] [place] [address] Jalen Enciso MD [address] [facility] [address] [place] [address] documented as of this encounter Visit Diagnoses Not on filedocumented in this encounter Care Teams Tin Assorter Relationship Specialty Start Date End Date Kaylene Brooke MD [address] [place] [address] PCP - General General Internal Medicine 01/27/22 Farooq Marcus MD [address] [place] [address] PCP - General Family Medicine 02/27/22 documented as of this encounter
--- OUTSIDE RECORDS SUMMARY | 2024-12-12 10:41 | XMS_ITS | Encounter Summary ---
Author Organization [employer] ([place], [place], [place], [place]) Address [address] [place] [address] Care Team Providers Care Highway Administrative Engineer Name Role Phone Kaylene Brooke MD Primary Care Provider [phone] Farooq Marcus MD Primary Care Provider [phone] Encounter Details Date Type Department Care Team (Late st Contact Info) Description 09/23/2020 Transcribed Document [facility] [place] [address] [place] [address] ProviderRayray MD [address] [place] [address] Social History Tobacco Use Types Packs/Day Years [...] On: 09/23/2020 13:26 EDT by KATHRIN CODY Developer Architect Initial Assessment I Previously Documented Living Environment : No qualifying data available. Living Situation : Home Patient Lives With : Spouse Is the Patient a Caregiver at Home? : No Emergency Contact #1 : JAMIE Emergency Contact #1 Phone Number : [phone] Emergency Contact #1 Relationship : SPOUSE Emergency Contact #2 : ADIEL Emergency Contact #2 Phone Number : [phone] Emergency Contact #2 Relationship : SON Enter Doctors Name : Adiel Michelle Does Patient have PCP Listed? : Yes Medical Durable Power of Manager Of Learning Name : No Legal Guardian : No [...] prior to admission resided with spouse, in [facility]. Admitted via ED with sepsis/pancreatits/NSTEMI: oncology/GI and cardiology consulted. Currently on 2 liters O2, clear liquid diet, Rfvfty=0444, bilirubin=1.9, NNA=413, HRB=315, Lactic=2.8, Trop=0.272, HH=8.2/26.3, CT Abd/pelvis=Small pleural effusions [...] CODY Social Worker - 09/23/2020 13:32 EDT Electronically signed by Malina Jacob Conversion Front End Wheel Loader Operator Cerner at 06/29/2022 2:26 PM CDT documented in this encounter Plan of Treatment Upcoming Encounters Date Type Department Care Team (Late st Contact Info) Description 05/25/2025 10:45 AM EDT Office Visit [place] - [address] [place] [address] Jalen Enciso MD [address] [facility] [address] [place] [address] documented as of this encounter Visit Diagnoses Not on filedocumented in this encounter Care Teams Highway Administrative Engineer Relationship Specialty Start Date End Date Kaylene Brooke MD [address] [place] [address] PCP - General General Internal Medicine 01/27/22 Farooq Marcus MD [address] [place] [address] PCP - General Family Medicine 02/27/22 documented as of this encounter
--- OUTSIDE RECORDS SUMMARY | 2024-12-12 10:41 | XMS_ITS | Encounter Summary ---
Author Organization [employer] ([place], [place], [place], [place]) Address [address] [place] [address] Care Team Providers Care Inserter Promotional Item Name Role Phone Kaylene Brooke MD Primary Care Provider [phone] Farooq Marcus MD Primary Care Provider Encounter Details Date Type Department Care Team (Late st Contact Info) Description 10/13/2020 Transcribed Document [facility] [place] [place] [facility] [place] [address] ProviderRayray MD [address] [place] [address] Social History Tobacco Use Types Packs/Day Years [...] Randi Johnson Rn-Traveler - 10/13/2020 11:55 EDT documented in this encounter Plan of Treatment Upcoming Encounters Date Type Department Care Team (Late st Contact Info) Description 05/25/2025 10:45 AM EDT Office Visit [facility] - [address] [place] [address] Jalen Enciso MD [address] [place] [address] documented as of this encounter Visit Diagnoses Not on filedocumented in this encounter Care Teams Inserter Promotional Item Relationship Specialty Start Date End Date MendyKaylene dunn MD [address] [place] [address] PCP - General General Internal Medicine 01/27/22 Farooq Marcus MD [address] [facility] [place] [address] PCP - General Family Medicine 02/27/22 documented as of this encounter
--- OUTSIDE RECORDS SUMMARY | 2024-12-12 10:41 | XMS_ITS | Encounter Summary ---
Author Organization [employer] ([place], [place], [place], [place]) Address [address] [place] [address] Care Team Providers Care Reference Investigator Name Role Phone Kaylene Brooke MD Primary Care Provider [phone] Farooq Marcus MD Primary Care Provider [phone] Encounter Details Date Type Department Care Team (Late st Contact Info) Description 10/09/2020 Transcribed Document [facility] [place] [facility] [place] [address] ProviderRayray MD [address] [place] [address] Social History Tobacco Use Types Packs/Day Years [...] in wound bed presentation noted please contact [facility] department. Nora Guillen, Rn-Enterostomal - 10/11/2020 7:25 EDT Electronically signed by [facility], [facility] Conversion Motorcycle Police Cerner at 06/29/2022 2:41 PM CDT documented in this encounter Plan of Treatment Upcoming Encounters Date Type Department Care Team (Late st Contact Info) Description 05/25/2025 10:45 AM EDT Office Visit [facility] - [address] [address] [place] [address] Jalen Enciso MD [address] [facility] [address] [place] [address] documented as of this encounter Visit Diagnoses Not on filedocumented in this encounter Care Teams Reference Investigator Relationship Specialty Start Date End Date MendyKaylene MD [address] [place] [address] PCP - General General Internal Medicine 01/27/22 Farooq Marcus MD [address] [place] [address] PCP - General Family Medicine 02/27/22 documented as of this encounter
--- OUTSIDE RECORDS SUMMARY | 2024-12-12 10:41 | XMS_ITS | Encounter Summary ---
Author Organization [employer] ([place], [place], [place], [place]) Address [address] [place] [address] Care Team Providers Care Development Coordinator Name Role Phone Kaylene Brooke MD Primary Care Provider [phone] Farooq Marcus MD Primary Care Provider [phone] Encounter Details Date Type Department Care Team (Late st Contact Info) Description 10/09/[address] [facility] [place] [facility] [place] [address] ProviderRayray MD [address] [place], [place] [address] Social History Tobacco Use Types Packs/Day Years [...] - 10/09/2020 18:26 EDT Electronically signed by [facility], [facility] Conversion Religious Leader Cerner at 06/29/2022 2:37 PM CDT documented in this encounter Plan of Treatment Upcoming Encounters Date Type Department Care Team (Late st Contact Info) Description 05/25/2025 10:45 AM EDT Office Visit [facility] [facility] - [place] [address] [place] [address] Jalen Enciso MD [address] [place] [address] documented as of this encounter Visit Diagnoses Not on filedocumented in this encounter Care Teams Development Coordinator Relationship Specialty Start Date End Date Kaylene Brooke MD [address] [place] [address] PCP - General General Internal Medicine 01/27/22 Farooq Marcus MD [address] [place] [address] PCP - General Family Medicine 02/27/22 documented as of this encounter
--- OUTSIDE RECORDS SUMMARY | 2024-12-12 10:41 | XMS_ITS | Encounter Summary ---
Author Organization [employer] ([place], [place], [place], [place]) Address [address] [place] [address] Care Team Providers Care Metallic Yarn Slitting Machine Operator Name Role Phone Kaylene Brooke MD Primary Care Provider Farooq Marcus MD Primary Care Provider [phone] Encounter Details Date Type Department Care Team (Late st Contact Info) Description 10/09/2020 Transcribed Document [facility] [place] [address] [place] [address] ProviderRayray MD [address] [place] [address] Social History Tobacco Use Types Packs/Day Years [...] Communication Barrier : None Primary Language : Citizen [place] Any Spiritual/Cultural Needs or Requests : No [...] Description 05/25/2025 10:45 AM EDT Office Visit [facility] [facility] - [place] [address] [place] [address] Jalen Enciso MD [address] [place] [address] documented as of this encounter Visit Diagnoses Not on filedocumented in this encounter Care Teams Metallic Yarn Slitting Machine Operator Relationship Specialty Start Date End Date Kaylene Brooke MD [address] [place] [address] PCP - General General Internal Medicine 01/27/22 Farooq Marcus MD [address] [place] [address] PCP - General Family Medicine 02/27/22 documented as of this encounter
--- OUTSIDE RECORDS SUMMARY | 2024-12-12 10:41 | XMS_ITS | Encounter Summary ---
Author Organization [employer] ([place], [place], [place], [place]) Address [address] [place] [address] Care Team Providers Care Inkjet Operator Name Role Phone Kaylene Brooke MD Primary Care Provider [phone] Farooq Marcus MD Primary Care Provider [phone] Encounter Details Date Type Department Care Team (Late st Contact Info) Description 10/12/2020 Transcribed Document [facility] [place] [facility] [place] [address] ProviderRayray MD [address] [place] [address] Social History Tobacco Use Types Packs/Day Years [...] Diagnostic Results Radiology Results (Last 48 hours) [id number] -- 10/10/2020 10:58 CT Head WO W [...] Description 05/25/2025 10:45 AM EDT Office Visit [facility] - [address] [place] [address] Jalen Enciso MD [address] [place] [address] documented as of this encounter Visit Diagnoses Not on filedocumented in this encounter Care Teams Inkjet Operator Relationship Specialty Start Date End Date Kaylene Brooke MD [address] [place] [address] PCP - General General Internal Medicine 01/27/22 Farooq Marcus MD [address] [facility] [place] [address] PCP - General Family Medicine 02/27/22 documented as of this encounter
--- OUTSIDE RECORDS SUMMARY | 2024-12-12 10:41 | XMS_ITS | Encounter Summary ---
Author Organization [employer] ([place], [place], [place], [place]) Address [address] [place] [address] Care Team Providers Care Charge Authorizer Name Role Phone Kaylene Brooke MD Primary Care Provider [phone] Farooq Marcus MD Primary Care Provider [phone] Encounter Details Date Type Department Care Team (Late st Contact Info) Description 09/25/2020 Transcribed Document [facility] [place] [address] [place] [address] ProviderRayray MD [address] [place], [place] [address] Social History Tobacco Use Types Packs/Day Years [...] Male : 1935 Associated Diagnoses: None Author: JAELN ENCISO MD-ONC Attachments: None Subjective Chief complaint [...] recomendations, No chemotherapy planned at this time. documented in this encounter Plan of Treatment Upcoming Encounters Date Type Department Care Team (Late st Contact Info) Description 05/25/2025 10:45 AM EDT Office Visit [facility] [facility] - [address] [place] [address] Jalen Enciso MD [address] [facility] [address] [place] [address] documented as of this encounter Visit Diagnoses Not on filedocumented in this encounter Care Teams Charge Authorizer Relationship Specialty Start Date End Date Kaylene Brooke MD [address] [place] [address] PCP - General General Internal Medicine 01/27/22 Farooq Marcus MD [address] [place] [address] PCP - General Family Medicine 02/27/22 documented as of this encounter
--- OUTSIDE RECORDS SUMMARY | 2024-12-12 10:41 | XMS_ITS | Encounter Summary ---
Author Organization [employer] ([place], [place], [place], [place]) Address [address] [place] [address] Care Team Providers Care Institutional Custodian Name Role Phone Kaylene Brooke MD Primary Care Provider [phone] Farooq Marcus MD Primary Care Provider [phone] Encounter Details Date Type Department Care Team (Late st Contact Info) Description 09/22/2020 Transcribed Document [facility] [place] [facility] [place] [address] ProviderRayray MD [address] [place] [address] Social History Tobacco Use Types Packs/Day Years [...] change in location/level of care Rapid Response Institutional Custodian #1 : MYCHAL NAM, RN MYCHAL NAM, RN - 09/22/2020 12:21 EDT Electronically signed by [facility], [facility] Conversion Dinkey Brakeman Cerner at 06/29/2022 2:15 PM CDT documented in this encounter Plan of Treatment Upcoming Encounters Date Type Department Care Team (Late st Contact Info) Description 05/25/2025 10:45 AM EDT Office Visit [facility] [facility] [address] [facility] [address] [place] [address] Jalen Enciso MD [address] [facility] [address] [place] [address] documented as of this encounter Visit Diagnoses Not on filedocumented in this encounter Care Teams Institutional Custodian Relationship Specialty Start Date End Date Kaylene Brooke MD [address] [place] [address] PCP - General General Internal Medicine 01/27/22 Farooq Marcus MD [address] [place] [address] PCP - General Family Medicine 02/27/22 documented as of this encounter
--- OUTSIDE RECORDS SUMMARY | 2024-12-12 10:41 | XMS_ITS | Encounter Summary ---
Author Organization [employer] ([place], [place], [place], [place]) Address [address] [place] [address] Care Team Providers Care Worm Sorter Name Role Phone Kaylene Brooke MD Primary Care Provider [phone] Farooq Marcus MD Primary Care Provider [phone] Encounter Details Date Type Department Care Team (Late st Contact Info) Description 09/22/2020 Transcribed Document [facility] [place] [facility] [place] [address] ProviderRayray MD [address] [place] [address] Social History Tobacco Use Types Packs/Day Years [...] 16:52 EDT by Snehal Mathews Emergency Room Addictions Counselor Assistant Phone Call for Consults Consult Phone Call/Page Attempt : First call Consult Reason : esophageal cancer patient now n/v Provider Service Notified Name : Other: Oncology Date and Time Call Returned : 09/22/2020 16:52 EDT Consult, Additional Information : Spoke with Gely Monk and informed her of consult. Snehal Mathews Emergency Room Addictions Counselor Assistant - 09/22/2020 16:52 EDT documented in this encounter Plan of Treatment Upcoming Encounters Date Type Department Care Team (Late st Contact Info) Description 05/25/2025 10:45 AM EDT Office Visit [place] [facility] - [address] [place] [address] Jalen Enciso MD [address] [place] [address] documented as of this encounter Visit Diagnoses Not on filedocumented in this encounter Care Teams Worm Sorter Relationship Specialty Start Date End Date MendyKaylene dunn MD [address] [place] [address] PCP - General General Internal Medicine 01/27/22 Farooq Marcus MD [address] [facility] [place] [address] PCP - General Family Medicine 02/27/22 documented as of this encounter
--- OUTSIDE RECORDS SUMMARY | 2024-12-12 10:41 | XMS_ITS | Encounter Summary ---
Author Organization [employer] ([place], [place], [place], [place]) Address [address] [place] [address] Care Team Providers Care Plug Saw Operator Name Role Phone Kaylene Brooke MD Primary Care Provider [phone] Farooq Marcus MD Primary Care Provider [phone] Encounter Details Date Type Department Care Team (Late st Contact Info) Description 10/12/2020 Transcribed Document [facility] Family Medicine [facility] [place] [address] ProviderRayray MD [address] [place], [place] [address] Social History Tobacco Use Types Packs/Day Years [...] Description 05/25/2025 10:45 AM EDT Office Visit [place] [facility] - [address] [place] [address] Jalen Enciso MD [address] [place] [address] documented as of this encounter Visit Diagnoses Not on filedocumented in this encounter Care Teams Plug Saw Operator Relationship Specialty Start Date End Date Kaylene Brooke MD [address] [place] [address] PCP - General General Internal Medicine 01/27/22 Farooq Marcus MD [address] [facility] [place] [address] PCP - General Family Medicine 02/27/22 documented as of this encounter
--- OUTSIDE RECORDS SUMMARY | 2024-12-12 10:41 | XMS_ITS | Encounter Summary ---
Author Organization [employer] ([place], [place], [place], [place]) Address [address] [place] [address] Care Team Providers Care Escrow Manager Name Role Phone Kaylene Brooke MD Primary Care Provider [phone] Farooq Marcus MD Primary Care Provider [phone] Encounter Details Date Type Department Care Team (Late st Contact Info) Description 10/13/2020 Transcribed Document [facility] [place] [facility] [place] [address] ProviderRayray MD [address] [place] [address] Social History Tobacco Use Types Packs/Day Years [...] On: 10/13/2020 11:09 EDT by Prachi Jesus, Brass Reclaimer [facility] Provider Status : EST [...] at ED : Other Primary Language : Beninese [facility] Comment : Patient needs follow up appointments. Called offices and scheduled appointments with Dr. Enciso and Dr. Sheridan. Follow Up Needed : No Prachi Jesus, Brass Reclaimer - 10/13/2020 11:09 EDT Electronically signed by [facility], [facility] Conversion Volleyball Assembler Cerner at 06/29/2022 2:17 PM CDT documented in this encounter Plan of Treatment Upcoming Encounters Date Type Department Care Team (Late st Contact Info) Description 05/25/2025 10:45 AM EDT Office Visit [facility] - [facility] [address] [facility] [address] [place] [address] Jalen Enciso MD [address] [place] [address] documented as of this encounter Visit Diagnoses Not on filedocumented in this encounter Care Teams Escrow Manager Relationship Specialty Start Date End Date Kaylene Brooke MD [address] [place] [address] PCP - General General Internal Medicine 01/27/22 Farooq Marcus MD [address] [place] [address] PCP - General Family Medicine 02/27/22 documented as of this encounter
--- OUTSIDE RECORDS SUMMARY | 2024-12-12 10:41 | XMS_ITS | Encounter Summary ---
Author Organization [employer] ([place], [place], [place], [place]) Address [address] [place] [address] Care Team Providers Care Manager Secondary Name Role Phone Kaylene Brooke MD Primary Care Provider [phone] Farooq Marcus MD Primary Care Provider [phone] Encounter Details Date Type Department Care Team (Late st Contact Info) Description 09/22/2020 Transcribed Document [facility] [place] [address] ProviderRayray MD [address] [place] [address] Social History Tobacco Use Types Packs/Day Years [...] Description 05/25/2025 10:45 AM EDT Office Visit [place] [facility] - [facility] [address] [place] [address] Jalen Enciso MD [address] [place] [address] documented as of this encounter Visit Diagnoses Not on filedocumented in this encounter Care Teams Manager Secondary Relationship Specialty Start Date End Date Kaylene Brooke MD [address] [place] [address] PCP - General General Internal Medicine 01/27/22 Farooq Marcus MD [address] [place] [address] PCP - General Family Medicine 02/27/22 documented as of this encounter
--- OUTSIDE RECORDS SUMMARY | 2024-12-12 10:41 | XMS_ITS | Encounter Summary ---
Author Organization [employer] ([place], [place], [place], [place]) Address [address] [place] [address] Care Team Providers Care Social Work Job Titles Name Role Phone Kaylene Brooke MD Primary Care Provider [phone] Farooq Marcus MD Primary Care Provider [phone] Encounter Details Date Type Department Care Team (Late st Contact Info) Description 09/24/2020 Transcribed Document [facility] [place] [address] [place] [address] ProviderRayray MD [address] [place] [address] Social History Tobacco Use Types Packs/Day Years [...] (SEP 22) Radiology Results (Last 48 hours) [id number] -- 09/22/2020 16:03 US Abdominal RT Upper [...] months ago with dr topete done at [facility] - pt stopped taking brilinta on his own accord shortly after the PCI as it was making him sob - on aspirin 81 mg daily. syncope 2 weeks ago - two weeks prior to admission, was at [facility] for this stay. depression - [...] and home nextweek. Cristina Inman Hospitalist pager- [phone] Electronically signed by Nidia [facility] Conversion Rent Collector Cerner at 06/29/2022 2:22 PM CDT documented in this encounter Plan of Treatment Upcoming Encounters Date Type Department Care Team (Late st Contact Info) Description 05/25/2025 10:45 AM EDT Office Visit [place] [facility] - [place] [address] [place] [address] Jalen Enciso MD [address] [facility] [address] [place] [address] documented as of this encounter Visit Diagnoses Not on filedocumented in this encounter Care Teams Social Work Job Titles Relationship Specialty Start Date End Date Kaylene Brooke MD [address] [place] [address] PCP - General General Internal Medicine 01/27/22 Farooq Marcus MD [address] [place] [address] PCP - General Family Medicine 02/27/22 documented as of this encounter
--- OUTSIDE RECORDS SUMMARY | 2024-12-12 10:41 | XMS_ITS | Encounter Summary ---
Author Organization [employer] ([place], [place], [place], [place]) Address [address] [place] [address] Care Team Providers Care Check Processing Clerk Name Role Phone Kaylene Brooke MD Primary Care Provider [phone] Farooq Marcus MD Primary Care Provider [phone] Encounter Details Date Type Department Care Team (Late st Contact Info) Description 10/12/2020 Transcribed Document [facility] [place] Family Medicine [address] [place] [address] ProviderRayray MD [address] [place], [place] [address] Social History Tobacco Use Types Packs/Day Years Used Date Smoking Tobacco: Never Assessed Sex and Gender Information Value Date Recorded Sex Assigned at Not on file Legal Sex Male 5:14 PM CDT Gender Identity Not on file Sexual Orientation Not on file documented as of this encounter Miscellaneous Notes * Cerner Conversion Note - Rayray ProviderMD - 10/12/2020 8:09 AM CDT [facility] Endo PACU Summary Primary Physician: NATE KINNEY MD Finalized Date/Time: 10/12/20 08:36:30 Pt. Name: RANCHO DEL ANGEL Jesse Leal/Sex: 1935 Male Med Rec #: [id number] Physician: PARKER RAVI MD-INT Financial #: [id number] Pt. Type: I Room/Bed: [facility]/ Admit/Disch: 10/10/20 10:58:00 - Institution: [facility] Endo PACU Case Times Entry 1 In PACU I 10/12/20 08:18:00 Ready for PACU 10/12/20 08:36:00 Discharge Discharge from PACU 10/12/20 08:36:00 I Last Modified By: Mari Holly, Rn 10/12/20 08:36:29 [facility] Endo PACU Case Times Audit 10/12/20 08:36:29 Cyber Security Architect: [id number] Modifier: [id number] <+> 1 Ready for PACU Discharge <+> 1 Discharge from PACU I Finalized By: Mari Holly, Rn Document Signatures Signed By: Mari Holly, Marty 10/12/20 08:36 Electronically signed by Nidia [facility] Conversion Steel Hanger Cerner at 06/29/2022 2:25 PM CDT documented in this encounter Plan of Treatment Upcoming Encounters Date Type Department Care Team (Late st Contact Info) Description 05/25/2025 10:45 AM EDT Office [facility] [place] [facility] [address] [facility] [address] [place] [address] Jalen Enciso MD [address] [place] [address] [place] [address] documented as of this encounter Visit Diagnoses Not on filedocumented in this encounter Care Teams Check Processing Clerk Relationship Specialty Start Date End Date Kaylene Brooke MD [address] [place] [address] PCP - General General Internal Medicine 01/27/22 Farooq Marcus MD [address] [place] [address] PCP - General Family Medicine 02/27/22 documented as of this encounter
--- OUTSIDE RECORDS SUMMARY | 2024-12-12 10:41 | XMS_ITS | Encounter Summary ---
Author Organization [employer] ([place], [place], [place], [place]) Address [address] [place] [address] Care Team Providers Care Linux Systems Analyst Name Role Phone Kaylene Brooke MD Primary Care Provider Farooq Marcus MD Primary Care Provider Encounter Details Date Type Department Care Team (Late st Contact Info) Description 09/24/2020 Transcribed Document [facility] [place] Medicine [place] [address] ProviderRayray MD [address] [place], [place] [address] Social History Tobacco Use Types Packs/Day Years [...] On: 09/24/2020 16:38 EDT by ELIZABETH LAMBERT, MERA-Boiler RiveterHerbicide Sprayer Progress Note Discharge Arrangements : Patient Post-Acute Information Patient Name: DOYLE DEL ANGEL Gender: Male : [birth year] Age: 84 Years No Post-Acute Placement(s) Listed No Post-Acute Service(s) Listed No Curaspan Referral(s) Listed ELIZABETH LAMBERT, RN-Boiler Riveter - 09/24/2020 16:38 EDT Narrative Progress Note Narrative Progress Note : rrs mod plans pending -augusto shannon previous charting :DCP: patient states he plans on going home with spouse, who will transport, therapy recommends home health and rolling walker at discharge and patient agrees to this if MD feels appropriate. CM will continue to follow. ELIZABETH LAMBERT, RN-Boiler Riveter - 09/24/2020 16:38 EDT Electronically signed by Nidia [facility] Conversion Client Technologies Specialist Cerner at 06/29/2022 2:11 PM CDT documented in this encounter Plan of Treatment Upcoming Encounters Date Type Department Care Team (Late st Contact Info) Description 05/25/2025 10:45 AM EDT Office Visit [place] [facility] - [facility] [address] [facility] [address] [place] [address] Jalen Enciso MD [address] [facility] [address] [place] [address] documented as of this encounter Visit Diagnoses Not on filedocumented in this encounter Care Teams Linux Systems Analyst Relationship Specialty Start Date End Date MendyKaylene dunn MD [address] [place] [address] PCP - General General Internal Medicine 01/27/22 Farooq Marcus MD [address] [place] [address] PCP - General Family Medicine 02/27/22 documented as of this encounter
--- OUTSIDE RECORDS SUMMARY | 2024-12-12 10:41 | XMS_ITS | Encounter Summary ---
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 Wanting to try Ensure Clear Dx: N/V, [...] Weight Maintanence Gastrointestinal Function : Bowel Function MARAL SIERRAML LD 10/11/2020 12:36 EDT Nutrition Recommendations Dietitian Recommendations : 1. Liberalize diet to Regular. Will add Ensure Clear TID GoaL: PO intake >50% of meals; increase aurora/pro intake 2. Weigh pt 2x weekly Goal: No further significant weight changes High Risk Severe PCM Criteria Met 10/11/20 MARIELA MARALML [facility] 10/11/2020 12:36 EDT Education Topics, Nutrition Nutrition Education Grid Dietary Supplements : Verbalizes understanding SANDRAJADA MARALML [facility] 10/11/2020 12:36 EDT documented in this encounter Plan of Treatment Upcoming Encounters Date Type Department Care Team (Late st Contact Info) Description 05/25/2025 10:45 AM EDT Office Visit [place] [facility] [address] [facility] [address] [place] [address] Jalen Enciso MD [address] [facility] [address] [place] [address] documented as of this encounter Visit Diagnoses Not on filedocumented in this encounter Care Teams Special Events Manager Relationship Specialty Start Date End Date Kaylene Brooke MD [address] [place] [address] PCP - General General Internal Medicine 01/27/22 Farooq Marcus MD [address] [place] [address] PCP - General Family Medicine 02/27/22 documented as of this encounter
--- OUTSIDE RECORDS SUMMARY | 2024-12-12 10:41 | XMS_ITS | Encounter Summary ---
Author Organization [employer] ([place], [place], [place], [place]) Address [address] [place] [address] Care Team Providers Care Senior Sales Administrator Name Role Phone Kaylene Brooke MD Primary Care Provider [phone] Farooq Marcus MD Primary Care Provider [phone] Encounter Details Date Type Department Care Team (Late st Contact Info) Description 10/12/2020 Transcribed Document [facility] [place] [address] ProviderRayray MD [address] [place], [place] [address] Social History Tobacco Use Types Packs/Day Years [...] Tegan Benz RN - 10/12/2020 17:05 EDT documented in this encounter Plan of Treatment Upcoming Encounters Date Type Department Care Team (Late st Contact Info) Description 05/25/2025 10:45 AM EDT Office Visit [place] [facility] - [address] [place] [address] Jalen Enciso MD [address] [place] [address] [place] [address] documented as of this encounter Visit Diagnoses Not on filedocumented in this encounter Care Teams Senior Sales Administrator Relationship Specialty Start Date End Date Kaylene Brooke MD [address] [place] [address] PCP - General General Internal Medicine 01/27/22 Farooq Marcus MD [address] [facility] [place] [address] PCP - General Family Medicine 02/27/22 documented as of this encounter
--- OUTSIDE RECORDS SUMMARY | 2024-12-12 10:41 | XMS_ITS | Encounter Summary ---
Author Organization [employer] ([place], [place], [place], [place]) Address [address] [place] [address] Care Team Providers Care Commissioner Of Officials Name Role Phone Kaylene Brooke MD Primary Care Provider Farooq Marcus MD Primary Care Provider [phone] Encounter Details Date Type Department Care Team (Late st Contact Info) Description 09/22/2020 Transcribed Document [facility] Radiology [address] [place] [id number] Swathi Augustin MD [address] [facility] [place] [address] Social History Tobacco Use Types Packs/Day Years Used Date Smoking Tobacco: Never Assessed Sex and Gender Information Value Date Recorded Sex Assigned at Not on file Legal Sex Male 5:14 PM CDT Gender Identity Not on file Sexual Orientation Not on file documented as of this encounter Miscellaneous Notes * Cerner Conversion Note - Swathi Augustin MD - 09/22/2020 11:01 AM EDT Patient: DOYLE DEL ANGEL Age: [...] EDT Height Source Stated Height Entry Format [place] Height/Length, [place] (ft) 6 ft Height/Length [place] 0 Inch CLINICALHEIGHT 182.88 cm [place] Body Weight 76.59 kg Weight Source, ED Critical estimated dosing weight Weight Entry Format [place] Weight German lb 175 lb CLINICALWEIGHT 79.55 kg Body [...] 93, normal sinus rhythm, no ectopy, normal WA & QRS intervals, EP Interp, Left bundle branch block consistent with prior EKG. Results review: Lab results : Lab Results 09/22/2020 13:45 EDT Lactic Acid Level 3.6 mmol/L CRIT 09/22/2020 11:41 EDT Influenza A Negative Influenza B Negative SARS-CoV-2 (COVID19 PCR) Negative 09/22/2020 11:25 EDT Urine Type. U CleanCatch Urine Color Adriana Urine Appearance Clear Urine Specific [place] 1.016 Urine pH Dipstick 7.0 Urine Leukocyte [...] % LOW ALYC # 0 K/uL NA [place] Percent Man 1 % LOW Eos Percent Man 0 % Baso Percent Man 0 % [place] Percent Man 1 % RBC Morphology Abnormal Anisocytosis 1+ Hypochromia 1+ Platelet Ct Estimate Adequate Procalcitonin 45.30 ng/mL HI . Radiology results: Reviewed radiologist's report, Radiology Results (Last 48 hours) [id number] -- 09/22/2020 09:28 CR Chest 1 Vw [...] Description 05/25/2025 10:45 AM EDT Office Visit [place] [facility] - [facility] [address] [facility] [address] [place] [address] Jalen Enciso MD [address] [facility] [address] [place] [address] documented as of this encounter Visit Diagnoses Not on filedocumented in this encounter Care Teams Commissioner Of Officials Relationship Specialty Start Date End Date Kaylene Brooke MD [address] [place] [address] PCP - General General Internal Medicine 01/27/22 Farooq Marcus MD [address] [facility] [place] [address] PCP - General Family Medicine 02/27/22 documented as of this encounter
--- OUTSIDE RECORDS SUMMARY | 2024-12-12 10:41 | XMS_ITS | Encounter Summary ---
Author Organization [employer] ([place], [place], [place], [place]) Address [address] [place] [address] Care Team Providers Care Sales And Merchandising Representative Name Role Phone Kaylene Brooke MD Primary Care Provider [phone] Farooq Marcus MD Primary Care Provider [phone] Encounter Details Date Type Department Care Team (Late st Contact Info) Description 10/11/2020 Transcribed Document [facility] [place] [facility] [place] [address] ProviderRayray MD [address] [place] [address] Social History Tobacco Use Types Packs/Day Years [...] other Legal Guardian : No Support Person/Patient Temporary Administrative Assistant : Yes Support Person/Pt Rep Name : Brandee Del Angel - Contact Password : Cat Support Person/Pt Rep Contact Information : [phone] Want Family/Rep/Phys Notified of Admit : No [...] From : Patient, Spouse Primary Language : Congolese Communication Barrier : None Bevel Face Stoner And Polisher Needed : No YOVANI BERNSTEIN RN - [...] Scale Risk Level : 25-45 Medium Risk Banner Fall Interventions : Personal items within reach [...] Source : Stated Height Entry Format : [place] Height, Feet : 6 ft(Converted to: 183 cm, 72 Inch) Height, Inches : 0 Inch(Converted to: 0 ft 0 Inch, 0.00 cm) Clinical Height : 182.88 cm Weight Source : Bed scale Weight Entry Format : Bennett Clinical Dosing Weight : 68.18 kg Weight, Pounds : 150 lb Body Surface Area (BSA) : 1.89 m2 Body Mass Index : 20.4 kg/m2 [place] Body Weight : 77 kg YOVANI BERNSTEIN [...] YOVANI BERNSTEIN RN - 10/11/2020 11:28 EDT [place] Suicide Severity Rating Scale (C-SSRS) CSSRS Past [...] YOVANI BERNSTEIN RN - 10/11/2020 11:28 EDT documented in this encounter Plan of Treatment Upcoming Encounters Date Type Department Care Team (Late st Contact Info) Description 05/25/2025 10:45 AM EDT Office Visit [place] [facility] - [place] [facility] [address] [place] [address] Jalen Enciso MD [address] [place] [address] [place] [address] documented as of this encounter Visit Diagnoses Not on filedocumented in this encounter Care Teams Sales And Merchandising Representative Relationship Specialty Start Date End Date Kaylene Brooke MD [address] [place] [address] PCP - General General Internal Medicine 01/27/22 Farooq Marcus MD [address] [place] [address] PCP - General Family Medicine 02/27/22 documented as of this encounter
--- OUTSIDE RECORDS SUMMARY | 2024-12-12 10:41 | XMS_ITS | Encounter Summary ---
Author Organization [employer] ([place], [place], [place], [place]) Address [address] [place] [address] Care Team Providers Care Share Holder Name Role Phone Kaylene Brooke MD Primary Care Provider Farooq Marcus MD Primary Care Provider [phone] Encounter Details Date Type Department Care Team (Late st Contact Info) Description 10/11/2020 Transcribed Document [facility] [place] [facility] [place] [address] ProviderRayray MD [address] [place], [place] [address] Social History Tobacco Use Types Packs/Day Years Used Date Smoking Tobacco: Never Assessed Sex and Gender Information Value Date Recorded Sex Assigned at Not on file Legal Sex Male 5:14 PM CDT Gender Identity Not on file Sexual Orientation Not on file documented as of this encounter Miscellaneous Notes * Brittani Conversion Note - Rayray ProviderMD - 10/11/2020 2:00 AM CDT Manager Social Media Details Entered On: 10/11/2020 2:55 EDT Performed [...] Description 05/25/2025 10:45 AM EDT Office Visit [place] [facility] - [address] [place] [address] Jalen Enciso MD [address] [place] [address] [place] [address] documented as of this encounter Visit Diagnoses Not on filedocumented in this encounter Care Teams Share Holder Relationship Specialty Start Date End Date MendyKaylene dunn MD [address] [place] [address] PCP - General General Internal Medicine 01/27/22 Farooq Marcus MD [address] [place] [address] PCP - General Family Medicine 02/27/22 documented as of this encounter
--- OUTSIDE RECORDS SUMMARY | 2024-12-12 10:41 | XMS_ITS | Encounter Summary ---
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 including his left heart catheterization that he [...] mL: 1,250 mg, 250 mL/Hr, IV Piggyback, [id number] Documented Medications Documented Brilinta (ticagrelor) 90 mg [...] 0.9% 250 mL 1,250 mg, IV Piggyback, [id number] Continuous: (1) NaCl 0.9% 1,000 mL 1,000 [...] All Problems Anxiety disorder / SNOMED CT 133788227 / Confirmed At risk for sleep apnea / IMO 35124932 / Confirmed Chest pain with high risk for cardiac etiology / SNOMED CT 93521611 / Confirmed Hyperlipidemia / SNOMED CT 84506723 / Confirmed Esophagus cancer / SNOMED CT 416393664 / Confirmed Myocardial infarction / SNOMED CT 11924878 / Confirmed 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 Troponin now trending down. We'll check an echocardiogram for ejection fraction. Will obtain records from. documented in this encounter Plan of Treatment Upcoming Encounters Date Type Department Care Team (Late st Contact Info) Description 05/25/2025 10:45 AM EDT Office Visit [place] [facility] - [facility] [address] [facility] [address] [place] [address] Jalen Enciso MD [address] [place] [address] [place] [address] documented as of this encounter Visit Diagnoses Not on filedocumented in this encounter Care Teams Ent Nurse Relationship Specialty Start Date End Date Kaylene Brooke MD [address] [place] [address] PCP - General General Internal Medicine 01/27/22 Farooq Marcus MD [address] [place] [address] PCP - General Family Medicine 02/27/22 documented as of this encounter
--- OUTSIDE RECORDS SUMMARY | 2024-12-12 10:41 | XMS_ITS | Encounter Summary ---
Author Organization [employer] ([place], [place], [place], [place]) Address [address] [place] [address] Care Team Providers Care Mud Grinder Name Role Phone Kaylene Brooke MD Primary Care Provider [phone] Farooq Marcus MD Primary Care Provider [phone] Encounter Details Date Type Department Care Team (Late st Contact Info) Description 10/12/2020 Transcribed Document [facility] [place] Family Medicine [address] [place] [address] ProviderRayray MD [address] [place], [place] [address] Social History Tobacco Use Types Packs/Day Years [...] to 150mg Malnourished -secondary to N&V, consult ferryboat pilot -Multifactorial given the patient has cancer and [...] PA 10/11/2020 09:36 EDT Electronically signed by [facility], [facility] Conversion Dye Range Tender Cerner at 06/29/2022 2:14 PM CDT documented in this encounter Plan of Treatment Upcoming Encounters Date Type Department Care Team (Late st Contact Info) Description 05/25/2025 10:45 AM EDT Office Visit [place] [facility] [address] [facility] [address] [place] [address] Jalen Enciso MD [address] [facility] [address] [place] [address] documented as of this encounter Visit Diagnoses Not on filedocumented in this encounter Care Teams Mud Grinder Relationship Specialty Start Date End Date Kaylene Brooke MD [address] [place] [address] PCP - General General Internal Medicine 01/27/22 Farooq Marcus MD [address] [facility] [place] [address] PCP - General Family Medicine 02/27/22 documented as of this encounter
--- OUTSIDE RECORDS SUMMARY | 2024-12-12 10:41 | XMS_ITS | Encounter Summary ---
Author Organization [employer] ([place], [place], [place], [place]) Address [address] [place] [address] Care Team Providers Care Commissions Coordinator Name Role Phone Kaylene Brooke MD Primary Care Provider [phone] Farooq Marcus MD Primary Care Provider Encounter Details Date Type Department Care Team (Late st Contact Info) Description 09/22/2020 Transcribed Document [facility] [place] Family Medicine [facility] [place] [address] ProviderRayray MD [address] [place], [place] [address] Social History Tobacco Use Types Packs/Day Years [...] for changes. Rx will follow, Adrian Mandel,BarbraD,BCPS,BCCCP #[phone] documented in this encounter Plan of Treatment Upcoming Encounters Date Type Department Care Team (Late st Contact Info) Description 05/25/2025 10:45 AM EDT Office Visit [place] [facility] - [place] [address] [place] [address] Jalen Enciso MD [address] [place] [address] documented as of this encounter Visit Diagnoses Not on filedocumented in this encounter Care Teams Commissions Coordinator Relationship Specialty Start Date End Date MendyKaylene dunn MD [address] [place] [address] PCP - General General Internal Medicine 01/27/22 Farooq Marcus MD [address] [place] [address] PCP - General Family Medicine 02/27/22 documented as of this encounter
--- OUTSIDE RECORDS SUMMARY | 2024-12-12 10:41 | XMS_ITS | Encounter Summary ---
Author Organization [employer] ([place], [place], [place], [place]) Address [address] [place] [address] Care Team Providers Care Practice Advisor Name Role Phone Kaylene Brooke MD Primary Care Provider [phone] Farooq Marcus MD Primary Care Provider [phone] Encounter Details Date Type Department Care Team (Late st Contact Info) Description 10/09/2020 Transcribed Document [facility] [place] Family Medicine [facility] [place] [address] ProviderRayray MD [address] [place], [place] [address] Social History Tobacco Use Types Packs/Day Years [...] 10/09/2020 18:36 EDT Electronically signed by Nidia [facility] Conversion Materials Assistant Cerner at 06/29/2022 2:23 PM CDT documented in this encounter Plan of Treatment Upcoming Encounters Date Type Department Care Team (Late st Contact Info) Description 05/25/2025 10:45 AM EDT Office Visit [place] [facility] - [place] [address] [place] [address] Jalen Enciso MD [address] [place] [address] [place] [address] documented as of this encounter Visit Diagnoses Not on filedocumented in this encounter Care Teams Practice Advisor Relationship Specialty Start Date End Date Kaylene Brooke MD [address] [place] [address] PCP - General General Internal Medicine 01/27/22 Farooq Marcus MD [address] [facility] [place] [address] PCP - General Family Medicine 02/27/22 documented as of this encounter
--- OUTSIDE RECORDS SUMMARY | 2024-12-12 10:41 | XMS_ITS | Encounter Summary ---
Author Organization [employer] ([place], [place], [place], [place]) Address [address] [place] [address] Care Team Providers Care Disaster Director Name Role Phone Kaylene Brooke MD Primary Care Provider [phone] Farooq Marcus MD Primary Care Provider [phone] Encounter Details Date Type Department Care Team (Late st Contact Info) Description 10/11/2020 Transcribed Document [facility] [place] Family Medicine [facility] [place] [address] ProviderRayray MD [address] [place] [address] Social History Tobacco Use Types Packs/Day Years [...] 10/11/2020 8:51 EDT by Mariangel Davis Patient Network Manager I Phone Call for Consults Consult Phone Call/Page Attempt : Other: spoike with ernesto Consult Reason : anorexia, early satiety. ?EGD Physician Requesting Consult : JALEN ENCISO MD-ONC Physician Requested for Consult : PREETI BENJAMIN MD-GAJesse Provider Service Notified Name : Gastroenterology Date and Time Call Returned : 10/11/2020 10:08 EDT Ryan, Mariangel, Patient Network Manager I - 10/11/2020 10:06 EDT documented in this encounter Plan of Treatment Upcoming Encounters Date Type Department Care Team (Late st Contact Info) Description 05/25/2025 10:45 AM EDT Office Visit [place] [facility] - [facility] [address] [facility] [address] [place] [address] Jalen Enciso MD [address] [place] [address] documented as of this encounter Visit Diagnoses Not on filedocumented in this encounter Care Teams Disaster Director Relationship Specialty Start Date End Date Kaylene Brooke MD [address] [place] [address] PCP - General General Internal Medicine 01/27/22 Farooq Marcus MD [address] [place] [address] PCP - General Family Medicine 02/27/22 documented as of this encounter
--- OUTSIDE RECORDS SUMMARY | 2024-12-12 10:41 | XMS_ITS | Encounter Summary ---
Author Organization [employer] ([place], [place], [place], [place]) Address [address] [place] [address] Care Team Providers Care Physician Locums Urgent Care Name Role Phone Farooq Marcus MD Primary Care Provider Reason for Referral * MRI (Routine) - Closed Specialty Diagnoses / Procedures Referred By Contac t Referred To Contact Radiology Diagnoses Pain in thoracic spine Procedures MR thoracic spine without IV contrast Christian Ramsey Jr., MD [address] [place] [address] Phone: tel: fax: Referral ID Status Reason Start Date Expiration Date Visits Re quested Visits Authorized [id number] Closed 03/30/2022 09/26/2022 1 1 * MRI (Routine) - Closed Specialty Diagnoses / Procedures Referred By Contac t Referred To Contact Radiology Diagnoses Low back pain, unspecified back pain laterality, unspecified chronicity, unspecified whether sciatica present Procedures MR spine lumbar without IV contrast Christian Ramsey Jr., MD [address] [place] [address] Phone: tel: fax: Referral ID Status Reason Start Date Expiration Date Visits Re quested Visits Authorized [id number] Closed 03/30/2022 09/26/2022 1 1 Encounter Details Date Type Department Care Team (Late st Contact Info) Description 03/30/2022 Outside Orders [facility] Central Scheduling [address] [place] [address] Christian Ramsey Jr., MD [address] [place], [place] [id number] Low back pain, unspecified back pain laterality, [...] 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 [address] [facility] [address] [place] [address] Jalen Enciso MD [address] [facility] [address] [place] [address] documented as of this encounter [...] present documented in this encounter Care Teams Physician Locums Urgent Care Relationship Specialty Start Date End Date Farooq Marcus MD [address] [place], [place] [address] PCP - General Family Medicine 02/27/22 documented as of this encounter
--- OUTSIDE RECORDS SUMMARY | 2024-12-12 10:41 | XMS_ITS | Encounter Summary ---
Author Organization [employer] ([place], [place], [place], [place]) Address [address] [place] [address] Care Team Providers Care Tandem Mill Operator Name Role Phone Kaylene Brooke MD Primary Care Provider [phone] Farooq Marcus MD Primary Care Provider [phone] Encounter Details Date Type Department Care Team (Late st Contact Info) Description 10/12/2020 Transcribed Document [facility] Family Medicine [address] [place] [address] ProviderRayray MD [address] [place], [place] [address] Social History Tobacco Use Types Packs/Day Years Used Date Smoking Tobacco: Never Assessed Sex and Gender Information Value Date Recorded Sex Assigned at Not on file Legal Sex Male 5:14 PM CDT Gender Identity Not on file Sexual Orientation Not on file documented as of this encounter Miscellaneous Notes * Cerner Conversion Note - Rayray ProviderMD - 10/12/2020 8:00 AM CDT [facility] Endo PreOp Summary Primary Physician: NATE KINNEY MD Finalized Date/Time: 10/12/20 07:57:26 Pt. Name: DOYLE DEL ANGEL Jesse Leal/Sex: 1935 Male Med Rec #: [id number] Physician: PARKER RAVI MD-INT Financial #: [id number] Pt. Type: I Room/Bed: [facility]/ Admit/Disch: 10/10/20 10:58:00 - Institution: [facility] Endo PreOp Case Times Entry 1 In Preop 10/12/20 07:49:00 Ready for Holding n/a Room Patient Ready for 10/12/20 07:59:00 Surgery Patient Out of Preop 10/12/20 07:59:00 Patient Out of n/a Holding Room Last Modified By: Celeste Rich Rn 10/12/20 07:57:[address] [facility] Endo PreOp Case Times Audit 10/12/20 07:57:23 Filteration Operator: MFWARD Modifier: MFWARD <+> 1 Patient Out of Preop <+> 1 Patient Ready for Surgery Finalized By: Celeste Rich, Rn Document Signatures Signed By: Celeste Rich Rn 10/12/20 07:57 Electronically signed by [facility] Conversion Couture Dressmaker Cerner at 06/29/2022 2:35 PM CDT documented in this encounter Plan of Treatment Upcoming Encounters Date Type Department Care Team (Late st Contact Info) Description 05/25/2025 10:45 AM EDT Office Visit [place] [facility] - [place] [address] [place] [address] Jalen Enciso MD [address] [place] [address] documented as of this encounter Visit Diagnoses Not on filedocumented in this encounter Care Teams Tandem Mill Operator Relationship Specialty Start Date End Date Kaylene Brooke MD [address] [place] [address] PCP - General General Internal Medicine 01/27/22 Farooq Marcus MD [address] [place] [address] PCP - General Family Medicine 02/27/22 documented as of this encounter
--- OUTSIDE RECORDS SUMMARY | 2024-12-12 10:41 | XMS_ITS | Encounter Summary ---
Author Organization [employer] ([place], [place], [place], [place]) Address [address] [place] [address] Care Team Providers Care Axminster Rug Setter Name Role Phone Kaylene Brooke MD Primary Care Provider [phone] Farooq Marcus MD Primary Care Provider [phone] Encounter Details Date Type Department Care Team (Late st Contact Info) Description 09/24/2020 Transcribed Document [facility] [place] [address] [place] [address] ProviderRayrya MD [address] [place], [place] [address] Social History Tobacco Use Types Packs/Day Years Used Date Smoking Tobacco: Never Assessed Sex and Gender Information Value Date Recorded Sex Assigned at Not on file Legal Sex Male 5:14 PM CDT Gender Identity Not on file Sexual Orientation Not on file documented as of this encounter Miscellaneous Notes * Cerner Conversion Note - Rayray ProviderMD - 09/24/2020 9:34 AM CDT Patient: [...] changes. Thank you for this consult, Mike Godfrye [facility] Virginia Goldman, PharmD Electronically signed by [facility], [facility] Conversion Analytical Data Scientist Cerner at 06/29/2022 2:18 PM CDT documented in this encounter Plan of Treatment Upcoming Encounters Date Type Department Care Team (Late st Contact Info) Description 05/25/2025 10:45 AM EDT Office Visit [place] [facility] - [place] [address] [place] [address] Jalen Enciso MD [address] [place] [address] [place] [address] documented as of this encounter Visit Diagnoses Not on filedocumented in this encounter Care Teams Axminster Rug Setter Relationship Specialty Start Date End Date Kaylene Brooke MD [address] [place] [address] PCP - General General Internal Medicine 01/27/22 Farooq Marcus MD [address] [place], [place] [address] PCP - General Family Medicine 02/27/22 documented as of this encounter
--- OUTSIDE RECORDS SUMMARY | 2024-12-12 10:42 | XMS_ITS | Encounter Summary ---
Author Organization [employer] ([place], [place], [place], [place]) Address [address] [place] [address] Care Team Providers Care Shock Absorber Installer Name Role Phone Kaylene Brooke MD Primary Care Provider Farooq Marcus MD Primary Care Provider [phone] Encounter Details Date Type Department Care Team (Late st Contact Info) Description 10/11/2020 Transcribed Document [facility] [place] [facility] [place] [address] ProviderRayray MD [address] [place], [place] [address] Social History Tobacco Use Types Packs/Day Years [...] Description 05/25/2025 10:45 AM EDT Office Visit [place] [facility] - [place] [address] [place] [address] Jalen Enciso MD [address] [place] [address] [place] [address] documented as of this encounter Visit Diagnoses Not on filedocumented in this encounter Care Teams Shock Absorber Installer Relationship Specialty Start Date End Date Kaylene Brooke MD [address] [place] [address] PCP - General General Internal Medicine 01/27/22 Farooq Marcus MD [address] [facility] [place] [address] PCP - General Family Medicine 02/27/22 documented as of this encounter
--- OUTSIDE RECORDS SUMMARY | 2024-12-12 10:42 | XMS_ITS | Encounter Summary ---
Author Organization [employer] ([place], [place], [place], [place]) Address [address] [place] [address] Care Team Providers Care Lawn Care Professional Name Role Phone Kaylene Brooke MD Primary Care Provider [phone] Farooq Marcus MD Primary Care Provider [phone] Encounter Details Date Type Department Care Team (Late st Contact Info) Description 09/23/2020 Transcribed Document [facility] [place] [facility] [place] [address] ProviderRayray MD [address] [place], [place] [address] Social History Tobacco Use Types Packs/Day Years Used Date Smoking Tobacco: Never Assessed Sex and Gender Information Value Date Recorded Sex Assigned at Not on file Legal Sex Male 5:14 PM CDT Gender Identity Not on file Sexual Orientation Not on file documented as of this encounter Miscellaneous Notes * Cerner Conversion Note - Rayray ProviderMD - 09/23/2020 2:00 AM CDT Cooker Syrup Details Entered On: 09/23/2020 2:38 EDT Performed [...] Description 05/25/2025 10:45 AM EDT Office Visit [place] [facility] - [place] [address] [place] [address] Jalen Enciso MD [address] [place] [address] documented as of this encounter Visit Diagnoses Not on filedocumented in this encounter Care Teams Lawn Care Professional Relationship Specialty Start Date End Date MendyKaylene dunn MD [address] [place] [address] PCP - General General Internal Medicine 01/27/22 Farooq Marcus MD [address] [facility] [place] [address] PCP - General Family Medicine 02/27/22 documented as of this encounter
--- OUTSIDE RECORDS SUMMARY | 2024-12-12 10:42 | XMS_ITS | Encounter Summary ---
Author Organization [employer] ([place], [place], [place], [place]) Address [address] [place] [address] Care Team Providers Care Insulation Manager Name Role Phone Kaylene Brooke MD Primary Care Provider [phone] Farooq Marcus MD Primary Care Provider Encounter Details Date Type Department Care Team (Late st Contact Info) Description 10/11/2020 Transcribed Document [facility] [place] [facility] [place] [address] Rayray San MD [address] [place], [place] [address] Social History Tobacco Use Types Packs/Day Years [...] Description 05/25/2025 10:45 AM EDT Office Visit [place] [facility] - [facility] [place] [address] Jalen Enciso MD [address] [facility] [address] [place] [address] documented as of this encounter Visit Diagnoses Not on filedocumented in this encounter Care Teams Insulation Manager Relationship Specialty Start Date End Date Kaylene Brooke MD [address] [place] [address] PCP - General General Internal Medicine 01/27/22 Farooq Marcus MD [address] [place] [place] [address] PCP - General Family Medicine 02/27/22 documented as of this encounter
--- OUTSIDE RECORDS SUMMARY | 2024-12-12 10:42 | XMS_ITS | Encounter Summary ---
Author Organization [employer] ([place], [place], [place], [place]) Address [address] [place] [address] Care Team Providers Care Out And Out Cigar Maker Hand Name Role Phone Kaylene Brooke MD Primary Care Provider [phone] Farooq Marcus MD Primary Care Provider [phone] Encounter Details Date Type Department Care Team (Late st Contact Info) Description 10/11/2020 Transcribed Document [facility] [place] Family Medicine [address] [place] [address] ProviderRayray MD [address] [place] [address] Social History Tobacco Use Types Packs/Day Years Used Date Smoking Tobacco: Never Assessed Sex and Gender Information Value Date Recorded Sex Assigned at Not on file Legal Sex Male 5:14 PM CDT Gender Identity Not on file Sexual Orientation Not on file documented as of this encounter Miscellaneous Notes * Cerner Conversion Note - Historical ProviderMD - 10/11/2020 4:00 AM CDT Height and Weight, Routine Entered On: 10/11/2020 5:54 EDT Performed On: 10/11/2020 4:00 EDT by Elidia Marie Lpn Height and Weight, Routine Routine Weight Entry Format : [place] Routine Weight, Pounds : 148 lb Routine Weight, Ounces : 7 oz Routine Weight Calculation : 67.47 kg Height Source : Stated Height Entry Format : [place] Height, Feet : 6 ft Height, Inches : 0 Inch Clinical Height : 182.88 cm Body Surface Area (BSA), Routine : 1.88 m2 Body Mass Index (BMI), Routine : 20.17 kg/m2 Elidia Marie, Bailiff - 10/11/2020 5:52 EDT documented in this encounter Plan of Treatment Upcoming Encounters Date Type Department Care Team (Late st Contact Info) Description 05/25/2025 10:45 AM EDT Office Visit [place] [facility] - [facility] [address] [place] [address] Jalen Enciso MD [address] [place] [address] [place] [address] documented as of this encounter Visit Diagnoses Not on filedocumented in this encounter Care Teams Out And Out Cigar Maker Hand Relationship Specialty Start Date End Date Kaylene Brooke MD [address] [place] [address] PCP - General General Internal Medicine 01/27/22 Farooq Marcus MD [address] [place] [address] PCP - General Family Medicine 02/27/22 documented as of this encounter
--- OUTSIDE RECORDS SUMMARY | 2024-12-12 10:42 | XMS_ITS | Clinical Summary ---
Author Organization [facility] Address [address] [place] [address] Care Team Providers Care Mechanical Project Manager Name Role Phone Adriana Felder APRN Primary Care Provider [phone] Social History Tobacco Use Types Packs/Day Years [...] or (1 - 1-dose 75+ series) 2012 [id number] Vaccine (4 - 2024- season) 2024 11/10/2020, [...] age to complete this topic Insurance MEDICARE [facility] Care Teams Mechanical Project Manager Relationship Specialty Start Date End Date Adriana Felder APRN [address] [place] [address] PCP - General 07/23/20
--- OUTSIDE RECORDS SUMMARY | 2024-12-12 10:42 | XMS_ITS | Encounter Summary ---
Author Organization [employer] ([place], [place], [place], [place]) Address [address] [place] [address] Care Team Providers Care Managed Care Analyst Name Role Phone Kaylene Brooke MD Primary Care Provider [phone] Farooq Marcus MD Primary Care Provider [phone] Encounter Details Date Type Department Care Team (Late st Contact Info) Description 09/23/2020 Transcribed Document [facility] [place] [address] [place] [address] ProviderRayray MD [address] [place] [address] Social History Tobacco Use Types Packs/Day Years [...] Insurance 1 Health Plan: MEDICARE Policy Number: [id number] Authorization Number: Insurance 2 Health Plan: [employer] Medicare Supplement Policy Number: [id number] Authorization Number: Insurance Primary Name : MEDICARE Policy Number: [id number] [employer] Medicare Supplement Policy Number: [id number] Historical Authorization Comments-Primary : No Authorization Comments Found TERESA GUZMÁN, Rn-Utilization Review - 09/23/2020 10:54 EDT Electronically signed by Nidia [facility] Conversion Telephone Order Clerk Room Service Cerner at 06/29/2022 2:21 PM CDT documented in this encounter Plan of Treatment Upcoming Encounters Date Type Department Care Team (Late st Contact Info) Description 05/25/2025 10:45 AM EDT Office Visit [place] [facility] - [facility] [address] [place] [address] Jalen Enciso MD [address] [place] [address] [place] [address] documented as of this encounter Visit Diagnoses Not on filedocumented in this encounter Care Teams Managed Care Analyst Relationship Specialty Start Date End Date Kaylene Brooke MD [address] [place] [address] PCP - General General Internal Medicine 01/27/22 Farooq Marcus MD [address] [place] [address] PCP - General Family Medicine 02/27/22 documented as of this encounter
--- OUTSIDE RECORDS SUMMARY | 2024-12-12 10:42 | XMS_ITS | Encounter Summary ---
Author Organization [employer] ([place], [place], [place], [place]) Address [address] [place] [address] Care Team Providers Care Creative/Art Director Name Role Phone Kaylene Brooke MD Primary Care Provider [phone] Farooq Marcus MD Primary Care Provider Encounter Details Date Type Department Care Team (Late st Contact Info) Description 10/11/2020 Transcribed Document [facility] [place] [address] [place] [address] ProviderRayray MD [address] [place] [address] Social History Tobacco Use Types Packs/Day Years [...] On: 10/11/2020 14:42 EDT by Wily Dewitt, SUPERVISOR ABATTOIR NON-EXEMPT Initial Assessment I Previously Documented Living Environment : No qualifying data available. Living Situation : Home with family care Patient Lives With : Spouse Is the Patient a Caregiver at Home? : No Emergency Contact #1 : -Dirk Del Angel Emergency Contact #1 Phone Number : [phone] Emergency Contact #1 Relationship : -Spouse Emergency Contact #2 : - Emergency Contact #2 Phone Number : - Emergency Contact #2 Relationship : - Enter Doctors Name : Adiel Davis MD Does Patient have PCP Listed? : Yes Patient's Home Caregiver Name/Relationship : Dirk Del Angel/Spouse Medical Durable Power of Finishing Operator Name : No Legal Guardian : No Is Guardianship Needed : No Wily Dewitt SUPERVISOR ABATTOIR NON-EXEMPT - 10/11/2020 14:42 EDT Initial Assessment II Sensory and Motor Deficits : Weakness Current Home Treatments and Equipment : None, Walker Wily Dewitt SUPERVISOR ABATTOIR NON-EXEMPT - 10/11/2020 14:42 EDT Discharge Needs [...] Acute rehabilitation, Discharge transportation, DME, Home Health, alf, Short term rehabilitation Patient Discharge Goal : Home Wily Dewitt SUPERVISOR ABATTOIR NON-EXEMPT - 10/11/2020 14:42 EDT Narrative Note [...] Enciso for oncology & also sees a data conversion analyst through [employer]. Pt lives with his in a private residence & is fairly independent with some family support. He was referred to [facility] last admission, but he is not homebound so they could not provide services. Pt & his state they are not interested in services as he needs to go for MD appointments & other treatments. He also states that he will discuss rehab placement with MDs before deciding on referrals. Pt prefers [facility] or [facility] if rehab is desired. He DOES [...] CM will continue to follow. Wily Dewitt, SUPERVISOR ABATTOIR NON-EXEMPT - 10/11/2020 14:42 EDT documented in this encounter Plan of Treatment Upcoming Encounters Date Type Department Care Team (Late st Contact Info) Description 05/25/2025 10:45 AM EDT Office Visit [place] [facility] [address] [place] [address] Jalen Enciso MD [address] [place] [address] documented as of this encounter Visit Diagnoses Not on filedocumented in this encounter Care Teams Creative/Art Director Relationship Specialty Start Date End Date Kaylene Brooke MD [address] [place] [address] PCP - General General Internal Medicine 01/27/22 Farooq Marcus MD [facility] [place] [address] PCP - General Family Medicine 02/27/22 documented as of this encounter
--- OUTSIDE RECORDS SUMMARY | 2024-12-12 10:42 | XMS_ITS | Encounter Summary ---
Author Organization [employer] ([place], [place], [place], [place]) Address [address] [place] [address] Care Team Providers Care Equipment Detailer Name Role Phone Kaylene Brooke MD Primary Care Provider [phone] Farooq Marcus MD Primary Care Provider [phone] Encounter Details Date Type Department Care Team (Late st Contact Info) Description 10/11/2020 Transcribed Document [facility] [place] Family Medicine [address] [place] [address] ProviderRayray MD [address] [place] [address] Social History Tobacco Use Types Packs/Day Years [...] Insurance 1 Health Plan: MEDICARE Policy Number: [id number] Authorization Number: Insurance 2 Health Plan: [employer] Medicare Supplement Policy Number: [id number] Authorization Number: Insurance Primary Name : MEDICARE Policy Number: [id number] [employer] Medicare Supplement Policy Number: [id number] Historical Authorization Comments-Primary : No Authorization Comments Found CARMINE TORREZ, RN - 10/11/2020 8:39 EDT documented in this encounter Plan of Treatment Upcoming Encounters Date Type Department Care Team (Late st Contact Info) Description 05/25/2025 10:45 AM EDT Office Visit [place] [facility] - [facility] [address] [place] [address] Jalen Enciso MD [address] [place] [address] documented as of this encounter Visit Diagnoses Not on filedocumented in this encounter Care Teams Equipment Detailer Relationship Specialty Start Date End Date Kaylene Brooke MD [address] [place] [address] PCP - General General Internal Medicine 01/27/22 Farooq Marcus MD [address] [place] [address] PCP - General Family Medicine 02/27/22 documented as of this encounter
--- OUTSIDE RECORDS SUMMARY | 2024-12-12 10:42 | XMS_ITS | Encounter Summary ---
Author Organization [employer] ([place], [place], [place], [place]) Address [address] [place] [address] Care Team Providers Care Architecture Internship Name Role Phone Kaylene Brooke MD Primary Care Provider [phone] Farooq Marcus MD Primary Care Provider [phone] Encounter Details Date Type Department Care Team (Late st Contact Info) Description 01/26/2021 Transcribed Document [facility] [place] Family Medicine [address] [place] [address] ProviderRayray MD [address], [place] [id number] Social History Tobacco Use Types Packs/Day Years Used Date Smoking Tobacco: Never Assessed Sex and Gender Information Value Date Recorded Sex Assigned at Not on file Legal Sex Male 5:14 PM CDT Gender Identity Not on file Sexual Orientation Not on file documented as of this encounter Miscellaneous Notes * Cerner Conversion Note - Historical ProviderMD - 01/26/2021 9:01 AM SURGICAL TECHNICIAN Pre Procedure Adult Entered On: 01/26/2021 9:05 EST Performed On: 01/26/2021 9:01 EST by LATOYA MANDUJANO RN Height and Weight, Clinical Dosing Height Source : Stated Height Entry Format : [place] Height, Feet : 6 ft(Converted to: 183 cm, 72 Inch) Height, Inches : 0 Inch(Converted to: 0 ft 0 Inch, 0.00 cm) Clinical Height : 182.88 cm Weight Source : Standing scale Weight Entry Format : [place] Clinical Dosing Weight : 76.36 kg Weight, Pounds : 168 lb Body Surface Area (BSA) : 1.98 m2 Body Mass Index : 22.8 kg/m2 [place] Body Weight : 77 kg NAZIALATOYA CAMPBLEL RN - 01/26/2021 9:01 EST Health Histories [...] LATOYA MANDUJANO RN - 01/26/2021 9:01 EST [place] Suicide Severity Rating Scale (C-SSRS) CSSRS Past [...] Info Legal Guardian : No Support Person/Patient Network Contractor : Yes Support Person/Pt Rep Name : Brandee Del Angel - Contact Password : Cat Support Person/Pt Rep Contact Information : [phone] Want Family/Rep/Phys Notified of Admit : No Emergency Contact #1 : . Emergency Contact #1 Phone Number : . Emergency Contact #1 Relationship : . Emergency Contact #2 : . Emergency Contact #2 Phone Number : . Emergency Contact #2 Relationship : . Primary Language : [place] Islander Communication Barrier : None Credit Control Assistant Needed : No LATOYA MANDUJANO RN - [...] Level : 46 or > High Risk Leonard Fall Interventions : Adequate lighting, Assistive devices [...] Description 05/25/2025 10:45 AM EDT Office Visit [place] [facility] - [place] [address] [place] [address] Jalen Enciso MD [address] [place] [address] documented as of this encounter Visit Diagnoses Not on filedocumented in this encounter Care Teams Architecture Internship Relationship Specialty Start Date End Date Kaylene Brooke MD [address] [place] [address] PCP - General General Internal Medicine 01/27/22 Farooq Marcus MD [address] [facility] [place] [address] PCP - General Family Medicine 02/27/22 documented as of this encounter
--- OUTSIDE RECORDS SUMMARY | 2024-12-12 10:42 | XMS_ITS | Encounter Summary ---
Author Organization [employer] ([place], [place], [place], [place]) Address [address] [place] [address] Care Team Providers Care Production Operations Inspector Name Role Phone Kaylene Brooke MD Primary Care Provider [phone] Farooq Marcus MD Primary Care Provider [phone] Encounter Details Date Type Department Care Team (Late Contact Info) Description 09/23/2020 Transcribed Document [facility] [place] Family Medicine [facility] [place] [address] ProviderRayray MD [address] [place], [place] [id number] Social History Tobacco Use Types Packs/Day Years [...] Description 05/25/2025 10:45 AM EDT Office Visit [place] [facility] - [place] [address] [place] [address] Jalen Enciso MD [address] [place] [address] [place] [address] documented as of this encounter Visit Diagnoses Not on filedocumented in this encounter Care Teams Production Operations Inspector Relationship Specialty Start Date End Date Kaylene Brooke MD [address] [place] [address] PCP - General General Internal Medicine 01/27/22 Farooq Marcus MD [address] [place] [address] PCP - General Family Medicine 02/27/22 documented as of this encounter
--- OUTSIDE RECORDS SUMMARY | 2024-12-12 10:42 | XMS_ITS | Encounter Summary ---
Author Organization [employer] ([place], [place], [place], [place]) Address [address] [place] [address] Care Team Providers Care Index Editor Name Role Phone Kaylene Brooke MD Primary Care Provider [phone] Farooq Marcus MD Primary Care Provider [phone] Encounter Details Date Type Department Care Team (Late st Contact Info) Description 10/11/2020 Transcribed Document [facility] [place] Family Medicine [facility] [address] Rayray San MD [address] [place] [address] Social History Tobacco Use Types Packs/Day Years [...] male with hx of esophageal cancer, HLD, [place], and anxiety. His last chemotherapy was 09/17/2020 [...] regular diet. No further dysphagia services warranted, CONGREGATIONAL CARE PASTOR will sign off. Please reconsult if new [...] Information Primary Care Physician - MAZIN SHERIDAN MD-[facility] Attending Physician - KEISHA TUCKER MD Admitting [...] # 0.50 x10(3)/uL (Low) 10/11/2020 05:45 EDT [place] % 11.7 % (High) 10/11/2020 05:45 EDT [place] # 0.64 K/uL 10/11/2020 05:45 EDT Eos [...] HARDEN 10/10/2020 16:08 EDT Electronically signed by [facility] Conversion Computer Lab Aide Cerner at 06/29/2022 2:18 PM CDT documented in this encounter Plan of Treatment Upcoming Encounters Date Type Department Care Team (Late st Contact Info) Description 05/25/2025 10:45 AM EDT Office Visit [place] [facility] [address] [place] [address] Jalen Enciso MD [address] [place] [address] documented as of this encounter Visit Diagnoses Not on filedocumented in this encounter Care Teams Index Editor Relationship Specialty Start Date End Date Kaylene Brooke MD [address] [place] [address] PCP - General General Internal Medicine 01/27/22 Farooq Marcus MD [address] [place] [address] PCP - General Family Medicine 02/27/22 documented as of this encounter
--- OUTSIDE RECORDS SUMMARY | 2024-12-12 10:42 | XMS_ITS | Encounter Summary ---
Author Organization [employer] ([place], [place], [place], [place]) Address [address] [place] [address] Care Team Providers Care Ticket Sorter Name Role Phone Kaylene Brooke MD Primary Care Provider Farooq Marcus MD Primary Care Provider [phone] Encounter Details Date Type Department Care Team (Late st Contact Info) Description 09/23/2020 Transcribed Document [facility] [place] Family Medicine [address] [place] [address] ProviderRayray MD [address] [place], [place] [address] Social History Tobacco Use Types Packs/Day Years [...] Description 05/25/2025 10:45 AM EDT Office Visit [place] [facility] - [place] [address] [place] [address] Jalen Enciso MD [address] [place] [address] documented as of this encounter Visit Diagnoses Not on filedocumented in this encounter Care Teams Ticket Sorter Relationship Specialty Start Date End Date MendyKaylene dunn MD [address] [place] [address] PCP - General General Internal Medicine 01/27/22 Farooq Marcus MD [address] [facility] [place] [address] PCP - General Family Medicine 02/27/22 documented as of this encounter
--- OUTSIDE RECORDS SUMMARY | 2024-12-12 10:42 | XMS_ITS | Encounter Summary ---
Author Organization [employer] ([place], [place], [place], [place]) Address [address] [place] [address] Care Team Providers Care Make Up Man Name Role Phone Kaylene Brooke MD Primary Care Provider [phone] Farooq Marcus MD Primary Care Provider [phone] Encounter Details Date Type Department Care Team (Late st Contact Info) Description 01/26/2021 Transcribed Document [facility] [place] [facility] [place] [address] ProviderRayray MD [address] [place], [place] [address] Social History Tobacco Use Types Packs/Day Years Used Date Smoking Tobacco: Never Assessed Sex and Gender Information Value Date Recorded Sex Assigned at Not on file Legal Sex Male 5:14 PM CDT Gender Identity Not on file Sexual Orientation Not on file documented as of this encounter Miscellaneous Notes * Cerner Conversion Note - Historical MD Jaswinder - 01/26/2021 11:09 AM GENERAL REPAIRER Patient: DOYLE DEL ANGEL Age: 85 years Sex: Male : 1935 Associated Diagnoses: None Author: Wayne Bui MD-RAD Pre-OP/Procedure Diagnosis: _Port Removal Indication: Need for iv treatment Procedure Performed: Power Port removal Procedural MD: MELLY Criminal Justice Department Chair: None Sedation: IV Conscious Sedation Findings: Successful Power Port removal Complications: None EBL: Minimal Specimen(s) Removed: None Full report to follow. documented in this encounter Plan of Treatment Upcoming Encounters Date Type Department Care Team (Late st Contact Info) Description 05/25/2025 10:45 AM EDT Office Visit [place] [facility] - [place] [address] [place] [address] Jalen Enciso MD [address] [place] [address] [place] [address] documented as of this encounter Visit Diagnoses Not on filedocumented in this encounter Care Teams Make Up Man Relationship Specialty Start Date End Date Kaylene Brooke MD [address] [place] [address] PCP - General General Internal Medicine 01/27/22 Farooq Marcus MD [address] [facility] [place] [address] PCP - General Family Medicine 02/27/22 documented as of this encounter
--- OUTSIDE RECORDS SUMMARY | 2024-12-12 10:42 | XMS_ITS | Encounter Summary ---
Author Organization [employer] ([place], [place], [place], [place]) Address [address] [place] [address] Care Team Providers Care Crinkling Machine Operator Name Role Phone Kaylene Brooke MD Primary Care Provider [phone] Farooq Marcus MD Primary Care Provider [phone] Encounter Details Date Type Department Care Team (Late st Contact Info) Description 09/23/2020 Transcribed Document [facility] [place] [facility] [address] ProviderRayray MD [address] [place] [address] Social History Tobacco Use Types Packs/Day Years [...] MATIAS KERN PTA - 09/24/2020 15:04 EDT Detention Goals Ambulation LTG Grid Goal [...] MATIAS KERN PTA - 09/24/2020 15:04 EDT [facility] PT Charges CAN INSPECTOR PT Therap. Exercise 15 min-CAN INSPECTOR : 1 MATIAS KERN PTA - 09/24/2020 15:04 EDT Electronically signed by Nidia [facility] Conversion Car Stower Cerner at 07/02/2022 4:56 PM CDT documented in this encounter Plan of Treatment Upcoming Encounters Date Type Department Care Team (Late st Contact Info) Description 05/25/2025 10:45 AM EDT Office Visit [place] [facility] - [place] [address] [place] [address] Jalen Enciso MD [address] [place] [address] [place] [address] documented as of this encounter Visit Diagnoses Not on filedocumented in this encounter Care Teams Crinkling Machine Operator Relationship Specialty Start Date End Date MendyKaylene dunn MD [address] [place] [address] PCP - General General Internal Medicine 01/27/22 Farooq Marcus MD [address] [place] [address] PCP - General Family Medicine 02/27/22 documented as of this encounter
--- OUTSIDE RECORDS SUMMARY | 2024-12-12 10:42 | XMS_ITS | Encounter Summary ---
Author Organization [employer] ([place], [place], [place], [place]) Address [address] [place] [address] Care Team Providers Care Gang Supervisor Name Role Phone Kaylene Brooke MD Primary Care Provider [phone] Farooq Marcus MD Primary Care Provider [phone] Encounter Details Date Type Department Care Team (Late st Contact Info) Description 10/11/[address] 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 Conversion Clay Mixer Cerner at 06/29/2022 2:28 PM CDT documented in this encounter Plan of Treatment Upcoming Encounters Date Type Department Care Team (Late st Contact Info) Description 05/25/2025 10:45 AM EDT Office Visit [place] [facility] - [place] [address] [place] [address] Jalen Enciso MD [address] [place] [address] [place] [address] documented as of this encounter Visit Diagnoses Not on filedocumented in this encounter Care Teams Gang Supervisor Relationship Specialty Start Date End Date MendyKaylene dunn MD [address] [place] [address] PCP - General General Internal Medicine 01/27/22 Farooq Marcus MD [address] [facility] [place] [address] PCP - General Family Medicine 02/27/22 documented as of this encounter
--- OUTSIDE RECORDS SUMMARY | 2024-12-12 10:42 | XMS_ITS | Encounter Summary ---
Author Organization [employer] ([place], [place], [place], [place]) Address [address] [place] [address] Care Team Providers Care Behavioral Health Case Manager Name Role Phone Kaylene Brooke MD Primary Care Provider [phone] Farooq Marcus MD Primary Care Provider [phone] Encounter Details Date Type Department Care Team (Late st Contact Info) Description 09/23/2020 Transcribed Document [facility] [place] Family Medicine [address] [place] [address] ProviderRayray MD [address] [place] [address] Social History Tobacco Use Types Packs/Day Years [...] significant for Esophageal CA, HLD, pacemaker and [place]. He reports he received chemo last week [...] Information Primary Care Physician - MAZIN SHERIDAN MD-[facility] Attending Physician - CRISTINA LUNDBERG [...] ALYC # 0 K/uL 09/22/2020 10:13 EDT [place] Percent Man 1 % (Low) 09/22/2020 10:13 EDT Eos Percent Man 0 % 09/22/2020 10:13 EDT Baso Percent Man 0 % 09/22/2020 10:13 EDT [place] Percent Man 1 % 09/22/2020 10:13 EDT [...] Appearance CLEAR2 09/22/2020 11:25 EDT Urine Specific [place] 1.016 09/22/2020 11:25 EDT Urine pH Dipstick [...] Description 05/25/2025 10:45 AM EDT Office Visit [place] [facility] - [place] [address] [place] [address] Jalen Enciso MD [address] [place] [address] [place] [address] documented as of this encounter Visit Diagnoses Not on filedocumented in this encounter Care Teams Behavioral Health Case Manager Relationship Specialty Start Date End Date MendyKaylene dunn MD [address] [place] [address] PCP - General General Internal Medicine 01/27/22 Farooq Marcus MD [address] [facility] [place] [address] PCP - General Family Medicine 02/27/22 documented as of this encounter
--- OUTSIDE RECORDS SUMMARY | 2024-12-12 10:42 | XMS_ITS | Encounter Summary ---
Author Organization [employer] ([place], [place], [place], [place]) Address [address] [place] [address] Care Team Providers Care Cloth Baler Name Role Phone Kaylene Brooke MD Primary Care Provider [phone] Farooq Marcus MD Primary Care Provider [phone] Encounter Details Date Type Department Care Team (Late st Contact Info) Description 09/08/2020 Transcribed Document [facility] [place] [facility] [place] [address] ProviderRayray MD [address] [place] [address] Social History Tobacco Use Types Packs/Day Years [...] lumen Power Port placement Procedural MD: Elizabeth Supervisor Harvesting: None Sedation: IV Conscious Sedation Findings: Successful Right IJ Power Port placement with ultrasound and fluroscopy guidance. Complications: None EBL: Minimal Specimen(s) Removed: None Full report to follow. documented in this encounter Plan of Treatment Upcoming Encounters Date Type Department Care Team (Late st Contact Info) Description 05/25/2025 10:45 AM EDT Office Visit [place] [facility] - [place] [address] [place] [address] Jalen Enciso MD [address] [place] [place] [address] documented as of this encounter Visit Diagnoses Not on filedocumented in this encounter Care Teams Cloth Baler Relationship Specialty Start Date End Date Kaylene Brooke MD [address] [place] [address] PCP - General General Internal Medicine 01/27/22 Farooq Marcus MD [address] [facility] [place] [address] PCP - General Family Medicine 02/27/22 documented as of this encounter
--- OUTSIDE RECORDS SUMMARY | 2024-12-12 10:42 | XMS_ITS | Encounter Summary ---
Author Organization [employer] ([place], [place], [place], [place]) Address [address] [place] [address] Care Team Providers Care Shank Taper Name Role Phone Kaylene Brooke MD Primary Care Provider [phone] Farooq Marcus MD Primary Care Provider [phone] Encounter Details Date Type Department Care Team (Late st Contact Info) Description 09/23/2020 Transcribed Document [facility] [place] [facility] [place] [address] ProviderRayray MD [address] [place], [place] [address] Social History Tobacco Use Types Packs/Day Years [...] 09/23/2020 9:46 EDT Electronically signed by Nidia [facility] Conversion Manager [employer]ner at 06/29/2022 2:29 PM CDT documented in this encounter Plan of Treatment Upcoming Encounters Date Type Department Care Team (Late st Contact Info) Description 05/25/2025 10:45 AM EDT Office Visit [place] [facility] - [place] [address] [place] [address] Jalen Enciso MD [address] [place] [address] documented as of this encounter Visit Diagnoses Not on filedocumented in this encounter Care Teams Shank Taper Relationship Specialty Start Date End Date MendyKaylene MD [address] [place] [address] PCP - General General Internal Medicine 01/27/22 Farooq Marcus MD [address] [place] [address] PCP - General Family Medicine 02/27/22 documented as of this encounter
--- OUTSIDE RECORDS SUMMARY | 2024-12-12 10:42 | XMS_ITS | Encounter Summary ---
Author Organization [employer] ([place], [place], [place], [place]) Address [address] [place] [address] Care Team Providers Care Job Service Consultant Name Role Phone Kaylene Brooke MD Primary Care Provider [phone] Farooq Marcus MD Primary Care Provider [phone] Encounter Details Date Type Department Care Team (Late st Contact Info) Description 09/08/2020 Transcribed Document [facility] [place] [address] [place] [address] ProviderRayray MD [address] [place] [address] Social History Tobacco Use Types [...] San MD - 09/08/2020 10:53 AM CDT [facility] [address] [place] [id number] DOYLE DEL ANGEL :1935 Visit Time:09/08/2020 Your Visit Summary Your Care Team Admitting Physician - JALEN ENCISO MD-ONC Attending Physician - JALEN ENCISO MD-ONC Primary Care Physician - MAZIN SHERIDAN MD-[facility] Referring Physician - JALEN ENCISO MD-ONC Your [...] When Comments Follow-up as instructed Where: [address] [place] [address]- Medications What How Much When Instructions Next [...] port is placed, you will get a security police's information card. The card has information about [...] and water are not available, use hand biological technical officer. ? Change your dressing as told [...] it is safe. General instructions ??? Take zdjq-vjl-grmjasg and prescription medicines only as told by [...] by your health care provider. Keep the security police's information card with you at all times. [...] you are awake and alert. ??? Take itgh-anx-qhkapbc and prescription medicines only as told by [...] provider. Document Revised: 02/08/2018 Document Reviewed: 06/17/2016 [employer] Patient Education ?? 2020 [employer] FAQ ??? Patient COVID-19 testing Why [...] through the local health department and the [place] Department for Public Health. Those organizations are [...] and need to call 911, notify the power barker operator that you have, or think you might [...] clean your hands with an alcohol-based hand biological technical officer that contains at least 60% alcohol. Clean your hands often. ??? Wash hands: Wash your hands often with soap and water for at least 20 seconds when visibly dirty. This is especially important after blowing your nose, coughing or sneezing, and going to the bathroom, and before eating or preparing food. ??? Hand biological technical officer: Use an alcohol-based hand biological technical officer with at least 60% alcohol, covering [...] and water or put them in the certified energy manager. Clean all high-touch surfaces every day. Clean [...] or body fluids on them. ??? Household film and video graphics designer and disinfectants: Clean the area or [...] list of disinfectants can be found here: https://www.epa.gov/pesticide-registration/saeh-w-kxcgbriutyrgt-roo-pcfzjmo-yv rs-cov-2 Emergency Awareness and Preventative Care STROKE [...] Assistance with quitting is available by contacting 8-745-GZRDNOW. This is a free resource providing counseling, [...] was given the opportunity to ask questions. Patient/Industrial Truck Driver Name: Patient/Industrial Truck Driver Signature: Relationship to Patient: Clinician/Hospital Industrial Truck Driver Signature: Date: documented in this encounter Plan of Treatment Upcoming Encounters Date Type Department Care Team (Late st Contact Info) Description 05/25/2025 10:45 AM EDT Office Visit [facility] - [place] [facility] [address] [place] [address] Jalen Enciso MD [address] [place] [address] documented as of this encounter Visit Diagnoses Not on filedocumented in this encounter Care Teams Job Service Consultant Relationship Specialty Start Date End Date Kaylene Brooke MD [address] [place] [address] PCP - General General Internal Medicine 01/27/22 Farooq Marcus MD [address] [place] [address] PCP - General Family Medicine 02/27/22 documented as of this encounter
--- OUTSIDE RECORDS SUMMARY | 2024-12-12 10:42 | XMS_ITS | Encounter Summary ---
Author Organization [employer] ([place], [place], [place], [place]) Address [address] [place] [address] Care Team Providers Care Underwriting Support Specialist Name Role Phone Kaylene Brooke MD Primary Care Provider [phone] Farooq Marcus MD Primary Care Provider [phone] Encounter Details Date Type Department Care Team (Late st Contact Info) Description 09/23/2020 Transcribed Document [facility] [place] [address] ProviderRayray MD [address] [place], [place] [address] Social History Tobacco Use Types Packs/Day Years [...] 0.9% 250 mL 1,250 mg, IV Piggyback, [id number] Continuous: (1) NaCl 0.9% 1,000 mL 1,000 [...] (SEP 22) Radiology Results (Last 48 hours) [id number] -- 09/22/2020 16:03 CR Chest 1 Vw [...] months ago with dr topete done at [facility] - pt stopped taking brilinta on his own accord shortly after the PCI as it was making him sob - on aspirin 81 mg daily. syncope 2 weeks ago - two weeks prior to admission, was at [facility] for this stay. depression - start on antidepressant last week with dr encios - pt and unsure what medication this [...] discharge disposition: home with HH. Chantelle Lundberg [facility] Hospitalist pager- [phone] Electronically signed by [facility] Conversion Banquet Steward Cerner at 06/29/2022 2:15 PM CDT documented in this encounter Plan of Treatment Upcoming Encounters Date Type Department Care Team (Late st Contact Info) Description 05/25/2025 10:45 AM EDT Office Visit [facility] - [place] [facility] [address] [facility] [address] [place] [address] Jalen Enciso MD [address] [place] [place] [address] documented as of this encounter Visit Diagnoses Not on filedocumented in this encounter Care Teams Underwriting Support Specialist Relationship Specialty Start Date End Date Kaylene Brooke MD [address] [place] [address] PCP - General General Internal Medicine 01/27/22 Farooq Marcus MD [address] [place] [address] PCP - General Family Medicine 02/27/22 documented as of this encounter
--- OUTSIDE RECORDS SUMMARY | 2024-12-12 10:42 | XMS_ITS | Encounter Summary ---
Author Organization [employer] ([place], [place], [place], [place]) Address [address] [place] [address] Care Team Providers Care Stapler Hand Name Role Phone Kaylene Brooke MD Primary Care Provider [phone] Farooq Marcus MD Primary Care Provider [phone] Encounter Details Date Type Department Care Team (Late st Contact Info) Description 09/23/2020 Transcribed Document [facility] [place] [facility] [address] ProviderRayray MD [address] [place] [address] Social History Tobacco Use Types Packs/Day Years [...] 0.9% 250 mL 1,250 mg, IV Piggyback, [id number] Continuous: (1) NaCl 0.9% 1,000 mL 1,000 [...] Description 05/25/2025 10:45 AM EDT Office Visit [facility] - [place] [address] [place] [address] Jalen Enciso MD [address] [place] [address] documented as of this encounter Visit Diagnoses Not on filedocumented in this encounter Care Teams Stapler Hand Relationship Specialty Start Date End Date MendyKaylene dunn MD [address] [place] [address] PCP - General General Internal Medicine 01/27/22 Farooq Marcus MD [address] [place] [address] PCP - General Family Medicine 02/27/22 documented as of this encounter
--- OUTSIDE RECORDS SUMMARY | 2024-12-12 10:42 | XMS_ITS | Encounter Summary ---
Author Organization [employer] ([place], [place], [place], [place]) Address [address] [place] [address] Care Team Providers Care Cellars Supervisor Name Role Phone Kaylene Brooke MD Primary Care Provider [phone] Farooq Marcus MD Primary Care Provider [phone] Encounter Details Date Type Department Care Team (Late st Contact Info) Description 10/10/2020 Transcribed Document [facility] [place] [address] [place] [address] ProviderRayray MD [address] [place] [address] Social History Tobacco Use Types Packs/Day Years [...] On: 10/10/2020 12:58 EDT by HARSHIL GOFF, DIELECTRIC MACHINE OPERATOR General Information Previous Swallow Precautions : None in EMR Diet/Intake Prior to Current Admission : Regular/thin Diet/Intake During Current Admission : Full liquids Intubation Comment, DIELECTRIC MACHINE OPERATOR : N/A HARSHIL GOFF, DIELECTRIC MACHINE OPERATOR - 10/10/2020 12:59 EDT Visit Type, DIELECTRIC MACHINE OPERATOR : Initial evaluation Patient Orders : [...] SLP - 10/10/2020 12:58 EDT Therapy Diagnosis, DIELECTRIC MACHINE OPERATOR : Oropharyngeal swallow seemingly within functional [...] 12:58 EDT General Status Patient Received Status, DIELECTRIC MACHINE OPERATOR : Long sitting in bed Patient Left Status, DIELECTRIC MACHINE OPERATOR : Long sitting in bed HARSHIL [...] regular diet. No further dysphagia services warranted, DIELECTRIC MACHINE OPERATOR will sign off. Please reconsult if [...] SwRec : Whole, With puree/pudding HARSHIL GOFF DIELECTRIC MACHINE OPERATOR - 10/10/2020 12:59 EDT Therapy Indication Assessment DIELECTRIC MACHINE OPERATOR Indicated : No DIELECTRIC MACHINE OPERATOR Not Indicated : At prior level of function, No skilled services indicated HARSHIL GOFF SLP - 10/10/2020 12:59 EDT Education Barriers To Learning : None evident Individuals Taught : Patient Readiness to Learn : Cooperative HARSHIL GOFF SLP - 10/10/2020 12:59 EDT DIELECTRIC MACHINE OPERATOR Education Assessment Grid 1 Diet Recommendation : Verbalizes understanding Dysphagia : Verbalizes understanding Evaluation Results : Verbalizes understanding HARSHIL GOFF SLP - 10/10/2020 12:59 EDT DIELECTRIC MACHINE OPERATOR Education Assessment Grid 2 Reflux Precautions : Verbalizes understanding HARSHIL GOFF SLP - 10/10/2020 12:[address] [facility] DIELECTRIC MACHINE OPERATOR Charges Evaluation Swallowing Function : 1 HARSHIL GOFF SLP - 10/10/2020 12:59 EDT Electronically signed by [facility], [facility] Conversion Executive Sous Chef Cerner at 06/29/2022 2:42 PM CDT documented in this encounter Plan of Treatment Upcoming Encounters Date Type Department Care Team (Late st Contact Info) Description 05/25/2025 10:45 AM EDT Office Visit [facility] - [place] [address] [facility] [address] [place] [address] Jalen Enciso MD [address] [facility] [address] [place] [address] documented as of this encounter Visit Diagnoses Not on filedocumented in this encounter Care Teams Cellars Supervisor Relationship Specialty Start Date End Date Kaylene Brooke MD [address] [place] [address] PCP - General General Internal Medicine 01/27/22 Farooq Marcus MD [address], [place] [address] PCP - General Family Medicine 02/27/22 documented as of this encounter
--- OUTSIDE RECORDS SUMMARY | 2024-12-12 10:42 | XMS_ITS | Encounter Summary ---
Author Organization [employer] ([place], [place], [place], [place]) Address [address] [place] [address] Care Team Providers Care Escrow Closer Name Role Phone Kaylene Brooke MD Primary Care Provider [phone] Farooq Marcus MD Primary Care Provider [phone] Encounter Details Date Type Department Care Team (Late st Contact Info) Description 09/23/2020 Transcribed Document [facility] Radiology [address] [place] [address] Janell Marx MD [address] [place] [address] Social History Tobacco Use Types Packs/Day Years [...] disease status post recent stent placement at [facility] 2 months ago, pacemaker placement, history of [...] mL: 1,250 mg, 250 mL/Hr, IV Piggyback, [id number] Problem list: All Problems Anxiety disorder / SNOMED CT 746546879 / Confirmed At risk for sleep apnea / IMO 36766817 / Confirmed Chest pain with high risk for cardiac etiology / SNOMED CT 89835890 / Confirmed Hyperlipidemia / SNOMED CT 30613690 / Confirmed Esophagus cancer / SNOMED CT 571571402 / Confirmed Myocardial infarction / SNOMED CT 73554423 / Confirmed 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, Active Problems (7) Anxiety disorder [...] EDT Height Source Chart Height Entry Format [place] Height/Length, SUDANESE (ft) 6 ft Height/Length SUDANESE 0 Inch CLINICALHEIGHT 182.88 cm Routine Weight Entry Format Metric 09/22/2020 16:21 EDT Height Source Chart Height Entry Format [place] Height/Length, SUDANESE (ft) 6 ft Height/Length SUDANESE 0 Inch CLINICALHEIGHT 182.88 cm [place] Body Weight 77 kg Weight Source Bed scale Weight Entry Format [place] Weight [place] lb 175 lb CLINICALWEIGHT 79.55 kg Body Surface Area (BSA) 2.01 m2 Body Mass Index 23.8 kg/m2 09/22/2020 9:45 EDT Height Source Stated Height Entry Format [place] Height/Length, SUDANESE (ft) 6 ft Height/Length SUDANESE 0 Inch CLINICALHEIGHT 182.88 cm [place] Body Weight 76.59 kg Weight Source, ED Critical estimated dosing weight Weight Entry Format [place] Weight [place] lb 175 lb CLINICALWEIGHT 79.55 kg Body [...] (Current Encounter/Past 24 Hours) ProBNP 2259 pg/mL OR 09/22/2020 11:19 Blood Gases (Current Encounter/Past 24 Hours) No Blood Gas Results Found (Past 24 Hours) Radiology Results (Last 48 hours) [id number] -- 09/22/2020 16:03 CR Chest 1 Vw [...] Description 05/25/2025 10:45 AM EDT Office Visit [facility] - [place] [address] [facility] [address] [place] [address] Jalen Enciso MD [address] [facility] [address] [place] [address] documented as of this encounter Visit Diagnoses Not on filedocumented in this encounter Care Teams Escrow Closer Relationship Specialty Start Date End Date MendyKayelne dunn MD [address] [place] [address] PCP - General General Internal Medicine 01/27/22 Farooq Marcus MD [address] [place] [address] PCP - General Family Medicine 02/27/22 documented as of this encounter
--- OUTSIDE RECORDS SUMMARY | 2024-12-12 10:42 | XMS_ITS | Encounter Summary ---
Author Organization [employer] ([place], [place], [place], [place]) Address [address] [place] [address] Care Team Providers Care Mainframe Software Developer Name Role Phone Kaylene Brooke MD Primary Care Provider [phone] Farooq Marcus MD Primary Care Provider Encounter Details Date Type Department Care Team (Late st Contact Info) Description 01/26/2021 Transcribed Document [facility] [place] Medicine [address] [place] [address] ProviderRayray MD [address] [place], [place] [address] Social History Tobacco Use Types Packs/Day Years Used Date Smoking Tobacco: Never Assessed Sex and Gender Information Value Date Recorded Sex Assigned at Not on file Legal Sex Male 5:14 PM CDT Gender Identity Not on file Sexual Orientation Not on file documented as of this encounter Miscellaneous Notes * Cerner Conversion Note - Rayray ProviderMD - 01/26/2021 12:22 PM FINISHER COLD ROLLING Nursing Discharge Summary Entered On: 01/26/2021 12:22 [...] - 01/26/2021 12:22 EST Electronically signed by [facility] Conversion Team Leader Surgery Cerner at 06/29/2022 2:28 PM CDT documented in this encounter Plan of Treatment Upcoming Encounters Date Type Department Care Team (Late st Contact Info) Description 05/25/2025 10:45 AM EDT Office Visit [facility] - [place] [address] [place] [address] Jalen Enciso MD [address] [place] [address] documented as of this encounter Visit Diagnoses Not on filedocumented in this encounter Care Teams Mainframe Software Developer Relationship Specialty Start Date End Date Kaylene Brooke MD [address] [place] [address] PCP - General General Internal Medicine 01/27/22 Farooq Marcus MD [facility] [address] [facility] [place] [address] PCP - General Family Medicine 02/27/22 documented as of this encounter
--- OUTSIDE RECORDS SUMMARY | 2024-12-12 10:42 | XMS_ITS | Encounter Summary ---
Author Organization [email or web address] ([place], [place], [place], [place]) Address [address] [place] [address] Care Team Providers Care Commercial Escrow Assistant Name Role Phone Kaylene Brooke MD Primary Care Provider [phone] Farooq Marcus MD Primary Care Provider [phone] Encounter Details Date Type Department Care Team (Late st Contact Info) Description 09/23/2020 Transcribed Document [facility] [place] [address] [place] [address] ProviderRayray MD [address] [place], [place] [address] Social History Tobacco Use Types Packs/Day Years [...] Source : Chart Height Entry Format : [place] Height, Feet : 6 ft Height, Inches : 0 Inch Clinical Height : 182.88 cm Sean Guidry Rn - 09/23/2020 7:07 EDT documented in this encounter Plan of Treatment Upcoming Encounters Date Type Department Care Team (Late st Contact Info) Description 05/25/2025 10:45 AM EDT Office Visit [facility] - [place] [address] [place] [address] Jalen Enciso MD [address] [facility] [address] [place] [address] documented as of this encounter Visit Diagnoses Not on filedocumented in this encounter Care Teams Commercial Escrow Assistant Relationship Specialty Start Date End Date Kaylene Brooke MD [address] [place] [address] PCP - General General Internal Medicine 01/27/22 Farooq Marcus MD [address] [place] [address] PCP - General Family Medicine 02/27/22 documented as of this encounter
--- OUTSIDE RECORDS SUMMARY | 2024-12-12 10:42 | XMS_ITS | Encounter Summary ---
Author Organization [employer] ([place], [place], [place], [place]) Address [address] [place] [address] Care Team Providers Care Wire Winder Name Role Phone Kaylene Brooke MD Primary Care Provider [phone] Farooq Marcus MD Primary Care Provider [phone] Encounter Details Date Type Department Care Team (Late st Contact Info) Description 10/10/2020 Transcribed Document [facility] Family Medicine [facility] [place] [address] ProviderRayray MD [address] [place], [place] [address] Social History Tobacco Use Types Packs/Day Years [...] 10/10/2020 17:58 EDT Electronically signed by [facility] Conversion Shirring Tender Cerner at 06/29/2022 2:42 PM CDT documented in this encounter Plan of Treatment Upcoming Encounters Date Type Department Care Team (Late st Contact Info) Description 05/25/2025 10:45 AM EDT Office Visit [facility] - [place] [address] [place] [address] Jalen Enciso MD [address] [place] [address] documented as of this encounter Visit Diagnoses Not on filedocumented in this encounter Care Teams Wire Winder Relationship Specialty Start Date End Date Kaylene Brooke MD [address] [place] [address] PCP - General General Internal Medicine 01/27/22 Farooq Marcus MD [address] [facility] [place] [address] PCP - General Family Medicine 02/27/22 documented as of this encounter
--- OUTSIDE RECORDS SUMMARY | 2024-12-12 10:42 | XMS_ITS | Encounter Summary ---
Author Organization [employer] ([place], [place], [place], [place]) Address [address] [place] [address] Care Team Providers Care Portfolio Consultant Name Role Phone Kaylene Brooke MD Primary Care Provider [phone] Farooq Marcus MD Primary Care Provider [phone] Encounter Details Date Type Department Care Team (Late st Contact Info) Description 01/26/2021 Transcribed Document [facility] [place] [place] Medicine [address] [place] [address] ProviderRayray MD [address] [place] [address] Social History Tobacco Use Types Packs/Day Years Used Date Smoking Tobacco: Never Assessed Sex and Gender Information Value Date Recorded Sex Assigned at Not on file Legal Sex Male 5:14 PM CDT Gender Identity Not on file Sexual Orientation Not on file documented as of this encounter Miscellaneous Notes * Cerner Conversion Note - Rayray San MD - 01/26/2021 12:23 PM SENIOR MATERIALS PLANNER [facility] [address] [place] [id number] [place] DEL ANGEL :1935 Visit Time:01/26/2021 Your [...] MD-ONC When Comments [facility] as instructed [id number] [address] [address]- Medications What How Much When [...] at home: Medicines ??? Take or apply xylz-qok-stzuhcc and prescription medicines only as told by [...] cannot use soap and water, use hand book canvasser. ? Change your bandage as told by [...] provider. Document Revised: 10/08/2018 Document Reviewed: 10/08/2018 [employer] Patient Education ?? 2020 [employer] Moderate Conscious Sedation, Adult, Care After [...] you are awake and alert. ??? Take xymr-wji-iypqgmb and prescription medicines only as told by [...] provider. Document Revised: 01/22/2020 Document Reviewed: 01/22/2020 [employer] Patient Education ?? 2020 [employer]. Emergency Awareness and Preventative Care STROKE is [...] Assistance with quitting is available by contacting 7-817-ZUND-NOW. This is a free resource providing counseling, [...] was given the opportunity to ask questions. Patient/Hookman Name: Patient/Hookman Signature: Relationship to Patient: Clinician/Hospital Hookman Signature: Date: documented in this encounter Plan of Treatment Upcoming Encounters Date Type Department Care Team (Late st Contact Info) Description 05/25/2025 10:45 AM EDT Office Visit [facility] - [place] [address] [place] [address] Jalen Enciso MD [address] [place] [address] documented as of this encounter Visit Diagnoses Not on filedocumented in this encounter Care Teams Portfolio Consultant Relationship Specialty Start Date End Date MendyKaylene dunn MD [address] [place] [address] PCP - General General Internal Medicine 01/27/22 Farooq Marcus MD [address] [place] [address] PCP - General Family Medicine 02/27/22 documented as of this encounter
--- OUTSIDE RECORDS SUMMARY | 2024-12-12 10:42 | XMS_ITS | Encounter Summary ---
Author Organization [employer] ([place], [place], [place], [place]) Address [address] [place] [address] Care Team Providers Care Marketing Effectiveness Manager Name Role Phone Kaylene Brooke MD Primary Care Provider [phone] Farooq Marcus MD Primary Care Provider [phone] Encounter Details Date Type Department Care Team (Late st Contact Info) Description 09/08/2020 Transcribed Document [facility] [place] Family Medicine [address] [place] [address] Rayray San MD [address] [place] [address] Social History Tobacco Use Types Packs/Day Years [...] through the local health department and the [place] Department for Public Health. Those organizations are [...] and need to call 911, notify the silk washing machine operator that you have, or think you [...] clean your hands with an alcohol-based hand focuser that contains at least 60% alcohol. Clean your hands often. ??? Wash hands: Wash your hands often with soap and water for at least 20 seconds when visibly dirty. This is especially important after blowing your nose, coughing or sneezing, and going to the bathroom, and before eating or preparing food. ??? Hand focuser: Use an alcohol-based hand focuser with at least 60% alcohol, covering all [...] and water or put them in the lunchroom mother. Clean all high-touch surfaces every day. Clean [...] or body fluids on them. ??? Household paper box maker and disinfectants: Clean the area or item [...] list of disinfectants can be found here: https://www.epa.gov/pesticide-registration/psez-x-dbubrtjbavbuf-nba-vigjcdv-fn rs-cov-2 Oncology Implanted Port Insertion, Care After [...] port is placed, you will get a scanning clerk's information card. The card has information about [...] and water are not available, use hand focuser. ? Change your dressing as told by [...] it is safe. General instructions ??? Take hvhh-ffh-pkpbkdk and prescription medicines only as told by [...] by your health care provider. Keep the scanning clerk's information card with you at all times. [...] provider. Document Revised: 09/24/2018 Document Reviewed: 09/24/2018 [employer] Patient Education ? 2020 [employer] Pharmacology Moderate Conscious Sedation, Adult, Care [...] you are awake and alert. ??? Take jdng-kuh-ajuksvx and prescription medicines only as told by [...] provider. Document Revised: 02/08/2018 Document Reviewed: 06/17/2016 [employer] Patient Education ? 2019 [employer]. Electronically signed by Malina Jacob Conversion Sustainability Project Coordinator Cerner at 06/29/2022 2:12 PM CDT documented in this encounter Plan of Treatment Upcoming Encounters Date Type Department Care Team (Late st Contact Info) Description 05/25/2025 10:45 AM EDT Office Visit [facility] - [address] [place] [address] Jalen Enciso MD [address] [facility] [address] [place] [address] documented as of this encounter Visit Diagnoses Not on filedocumented in this encounter Care Teams Marketing Effectiveness Manager Relationship Specialty Start Date End Date Kaylene Brooke MD [address] [place] [address] PCP - General General Internal Medicine 01/27/22 Farooq Marcus MD [address] [place] [address] PCP - General Family Medicine 02/27/22 documented as of this encounter
--- OUTSIDE RECORDS SUMMARY | 2024-12-12 10:42 | XMS_ITS | Encounter Summary ---
Author Organization [employer] ([place], [place], [place], [place]) Address [address] [place] [address] Care Team Providers Care Meat Market Manager Name Role Phone Kaylene Brooke MD Primary Care Provider [phone] Farooq Marcus MD Primary Care Provider [phone] Encounter Details Date Type Department Care Team (Late st Contact Info) Description 09/08/2020 Transcribed Document [facility] [place] Family Medicine [address] [place] [address] ProviderRayray MD [address] [place] [address] Social History Tobacco Use Types Packs/Day Years [...] Source : Stated Height Entry Format : [place] Height, Feet : 6 ft(Converted to: 183 cm, 72 Inch) Height, Inches : 0 Inch(Converted to: 0 ft 0 Inch, 0.00 cm) Clinical Height : 182.88 cm Weight Source : Standing scale Weight Entry Format : [place] Clinical Dosing Weight : 72.27 kg Weight, Pounds : 159 lb Body Surface Area (BSA) : 1.93 m2 Body Mass Index : 21.6 kg/m2 [place] Body Weight : 77 kg JUVE GILBERT [...] Rn-Clinical Coordinator I - 09/08/2020 8:39 EDT [place] Suicide Severity Rating Scale (C-SSRS) CSSRS Past [...] 09/08/2020 8:39 EDT General Info Support Person/Patient Sand Car Worker : Yes Support Person/Pt Rep Name : Brandee Del Angel - Support Person/Pt Rep Contact Information : [phone] Want Family/Rep/Phys Notified of Admit : No Emergency Contact #1 : . Emergency Contact #1 Phone Number : . Emergency Contact #1 Relationship : . Emergency Contact #2 : . Emergency Contact #2 Phone Number : . Emergency Contact #2 Relationship : . Primary Language : Iraqi Communication Barrier : None Docket Clerk Needed : No JVUE GILBERT Rn-Clinical Coordinator I - 09/08/2020 8:39 [...] Level : 46 or > High Risk [place] Fall Interventions : Adequate lighting, Assistive devices [...] Description 05/25/2025 10:45 AM EDT Office Visit [facility] - [place] [address] [place] [address] Jalen Enciso MD [address] [place] [address] documented as of this encounter Visit Diagnoses Not on filedocumented in this encounter Care Teams Meat Market Manager Relationship Specialty Start Date End Date Kaylene Brooke MD [address] [place] [address] PCP - General General Internal Medicine 01/27/22 Farooq Marcus MD [address] [place], [place] [address] PCP - General Family Medicine 02/27/22 documented as of this encounter
--- OUTSIDE RECORDS SUMMARY | 2024-12-12 10:42 | XMS_ITS | Encounter Summary ---
Author Organization [employer] ([place], [place], [place], [place]) Address [address] [place] [address] Care Team Providers Care Shot Fireman Name Role Phone Kaylene Brooke MD Primary Care Provider [phone] Farooq Marcus MD Primary Care Provider [phone] Encounter Details Date Type Department Care Team (Late st Contact Info) Description 10/11/[address] [facility] [place] Family Medicine [facility] [place] [address] ProviderRayray MD [address] [place] [address] Social History Tobacco Use Types Packs/Day Years [...] : 10/10/2020 10:58 Assisted by, PT : sales technician home theater/aide Personal Devices : Personal Devices No Devices [...] MATIAS KERN PTA - 10/12/2020 15:34 EDT Executive Relations Specialist Goals Ambulation LTG Grid Goal #1 Device [...] MATIAS KERN PTA - 10/12/2020 15:34 EDT [place] PT Charges SUPERVISOR HOME RESTORATION SERVICE PT Therap. Exercise 15 min-SUPERVISOR HOME RESTORATION SERVICE : 1 MATIAS KERN PTA - 10/12/2020 15:34 EDT documented in this encounter Plan of Treatment Upcoming Encounters Date Type Department Care Team (Late st Contact Info) Description 05/25/2025 10:45 AM EDT Office Visit [facility] - [place] [address] [place] [address] Jalen Enciso MD [address] [place] [address] [place] [address] documented as of this encounter Visit Diagnoses Not on filedocumented in this encounter Care Teams Shot Fireman Relationship Specialty Start Date End Date Kaylene Brooke MD [address] [place] [address] PCP - General General Internal Medicine 01/27/22 Farooq Marcus MD [address] [place] [address] PCP - General Family Medicine 02/27/22 documented as of this encounter
--- OUTSIDE RECORDS SUMMARY | 2024-12-12 10:42 | XMS_ITS | Encounter Summary ---
Author Organization [employer] ([place], [place], [place], [place]) Address [address] [place] [address] Care Team Providers Care Winery Worker Name Role Phone Kaylene Brooke MD Primary Care Provider [phone] Farooq Marcus MD Primary Care Provider [phone] Encounter Details Date Type Department Care Team (Late st Contact Info) Description 01/26/2021 Transcribed Document [facility] [place] Family Medicine [address] [place] [address] Rayray San MD [address] [place], [place] [address] Social History Tobacco Use Types Packs/Day Years Used Date Smoking Tobacco: Never Assessed Sex and Gender Information Value Date Recorded Sex Assigned at Not on file Legal Sex Male 5:14 PM CDT Gender Identity Not on file Sexual Orientation Not on file documented as of this encounter Miscellaneous Notes * Cerner Conversion Note - Rayray San MD - 01/26/2021 12:21 PM [facility] Patient Education Materials Follows:Disease Wound Infection A [...] at home: Medicines ??? Take or apply prwr-qyd-upfsakt and prescription medicines only as told by [...] cannot use soap and water, use hand hand bander. ? Change your bandage as told by [...] provider. Document Revised: 10/08/2018 Document Reviewed: 10/08/2018 [employer] Patient Education ? 2020 Elsevier Inc. Pharmacology [...] you are awake and alert. ??? Take radm-vqf-pqsqcph and prescription medicines only as told by [...] Reviewed: 01/22/2020 Elsevier Patient Education ? 2020 [employer] documented in this encounter Plan of Treatment Upcoming Encounters Date Type Department Care Team (Late st Contact Info) Description 05/25/2025 10:45 AM EDT Office Visit [facility] [address] [place] [address] Jalen Enciso MD [address] [place] [address] documented as of this encounter Visit Diagnoses Not on filedocumented in this encounter Care Teams Winery Worker Relationship Specialty Start Date End Date Kaylene Brooke MD [address] [place] [address] PCP - General General Internal Medicine 01/27/22 Farooq Marcus MD [address] [place] [address] PCP - General Family Medicine 02/27/22 documented as of this encounter
--- OUTSIDE RECORDS SUMMARY | 2024-12-12 10:42 | XMS_ITS | Encounter Summary ---
Author Organization [employer] ([place], [place], [place], [place]) Address [address] [place] [address] Care Team Providers Care Prop Worker Name Role Phone Kaylene Brooke MD Primary Care Provider [phone] Farooq Marcus MD Primary Care Provider [phone] Encounter Details Date Type Department Care Team (Late st Contact Info) Description 10/11/2020 Transcribed Document [facility] [address] ProviderRayray MD [address] [place] [address] Social History Tobacco Use Types Packs/Day Years [...] LOW 10/11/2020 06:13 Alk Phos 152 Units/Liter NM 10/10/2020 06:37 ALT 24 Units/Liter 10/10/2020 06:37 AST 24 Units/Liter 10/10/2020 06:37 Blood Urea Nitrogen 7 mg/dL 10/11/2020 06:13 Glucose Level 85 mg/dL 10/11/2020 06:13 Albumin Level 2.4 Gram/dL LOW 10/10/2020 06:37 Bilirubin Total 1.4 mg/dL NM 10/10/2020 06:37 Calcium Level 8.8 mg/dL 10/11/2020 [...] Diagnostic Results Radiology Results (Last 48 hours) [id number] -- 10/10/2020 10:58 CT Head WO W [...] by Sampson Laws MD Electronically signed by Nidia [facility] Conversion Mechanical Product Engineer Cerner at 06/29/2022 2:32 PM CDT documented in this encounter Plan of Treatment Upcoming Encounters Date Type Department Care Team (Late st Contact Info) Description 05/25/2025 10:45 AM EDT Office Visit [facility] - [place] [address] [place] [address] Jalen Enciso MD [address] [place] [address] documented as of this encounter Visit Diagnoses Not on filedocumented in this encounter Care Teams Prop Worker Relationship Specialty Start Date End Date Kaylene Brooke MD [address] [place] [address] PCP - General General Internal Medicine 01/27/22 Farooq Marcus MD [address] [place] [address] PCP - General Family Medicine 02/27/22 documented as of this encounter
--- OUTSIDE RECORDS SUMMARY | 2024-12-12 10:42 | XMS_ITS | Encounter Summary ---
Author Organization [employer] ([place], [place], [place], [place]) Address [address] [place] [address] Care Team Providers Care Electric Power Superintendent Name Role Phone Kaylene Brooke MD Primary Care Provider [phone] Farooq Marcus MD Primary Care Provider Encounter Details Date Type Department Care Team (Late st Contact Info) Description 09/08/2020 Transcribed Document [facility] [place] Family Medicine [facility] [place] [address] ProviderRayray MD [address] [place] [address] Social History Tobacco Use Types Packs/Day Years [...] Description 05/25/2025 10:45 AM EDT Office Visit [facility] - [place] [address] [place] [address] Jalen Enciso MD [address] [place] [place] [address] [place] [address] documented as of this encounter Visit Diagnoses Not on filedocumented in this encounter Care Teams Electric Power Superintendent Relationship Specialty Start Date End Date Kaylene Brooke MD [address] [place] [address] PCP - General General Internal Medicine 01/27/22 Farooq Marcus MD [facility] [place] [address] PCP - General Family Medicine 02/27/22 documented as of this encounter
--- OUTSIDE RECORDS SUMMARY | 2024-12-12 10:43 | XMS_ITS | Encounter Summary ---
Author Organization [employer] ([place], [place], [place], [place]) Address [address] [place] [address] Care Team Providers Care Residential Life Director Name Role Phone Kaylene Brooke MD Primary Care Provider [phone] Farooq Marcus MD Primary Care Provider [phone] Encounter Details Date Type Department Care Team (Late st Contact Info) Description 09/08/2020 Transcribed Document [facility] [place] Family Medicine [address] [place] [address] ProviderRayray MD [address] [place] [address] Social History Tobacco Use Types Packs/Day Years [...] Description 05/25/2025 10:45 AM EDT Office Visit [facility] [address] [place] [address] Jalen Enciso MD [address] [place] [address] documented as of this encounter Visit Diagnoses Not on filedocumented in this encounter Care Teams Residential Life Director Relationship Specialty Start Date End Date Kaylene Brooke MD [address] [place] [address] PCP - General General Internal Medicine 01/27/22 Farooq Marcus MD [address] [place] [address] PCP - General Family Medicine 02/27/22 documented as of this encounter
--- OUTSIDE RECORDS SUMMARY | 2024-12-12 10:43 | XMS_ITS | Encounter Summary ---
Author Organization [employer] ([place], [place], [place], [place]) Address [address] [place] [address] Care Team Providers Care Chief Order Dispatcher Name Role Phone Kaylene Brooke MD Primary Care Provider [phone] Farooq Marcus MD Primary Care Provider [phone] Encounter Details Date Type Department Care Team (Late Contact Info) Description 09/27/2020 Transcribed Document [facility] [place] [address] ProviderRayray MD [address] [place], [place] [address] Social History Tobacco Use Types Packs/Day Years [...] Niki Guzman RN - 09/28/2020 3:17 EDT Electronically signed by Nidia [facility] Conversion Dental Intern Cerner at 06/29/2022 2:36 PM CDT documented in this encounter Plan of Treatment Upcoming Encounters Date Type Department Care Team (Late st Contact Info) Description 05/25/2025 10:45 AM EDT Office Visit [facility] - [place] [address] [place] [address] Jalen Enciso MD [address] [place] [address] documented as of this encounter Visit Diagnoses Not on filedocumented in this encounter Care Teams Chief Order Dispatcher Relationship Specialty Start Date End Date Kaylene Brooke MD [address] [place] [address] PCP - General General Internal Medicine 01/27/22 Farooq Marcus MD [address] [place] [address] PCP - General Family Medicine 02/27/22 documented as of this encounter
--- OUTSIDE RECORDS SUMMARY | 2024-12-12 10:43 | XMS_ITS | Encounter Summary ---
Author Organization [employer] ([place], [place], [place], [place]) Address [address] [place] [address] Care Team Providers Care Pie Cutter Name Role Phone Kaylene Brooke MD Primary Care Provider [phone] Farooq Marcus MD Primary Care Provider [phone] Encounter Details Date Type Department Care Team (Late st Contact Info) Description 09/14/2020 Transcribed Document [facility] [place] Family Medicine [facility] [place] [address] ProviderRayray MD [address] [place], [place] [address] Social History Tobacco Use Types Packs/Day Years [...] below: Significant Changes: Electronically signed by Interface, [facility] Conversion Magazine Keeper Cerner at 06/29/2022 2:15 PM CDT documented in this encounter Plan of Treatment Upcoming Encounters Date Type Department Care Team (Late st Contact Info) Description 05/25/2025 10:45 AM EDT Office Visit [facility] - [place] [address] [place] [address] Jalen Enciso MD [address] [place] [address] [place] [address] documented as of this encounter Visit Diagnoses Not on filedocumented in this encounter Care Teams Pie Cutter Relationship Specialty Start Date End Date Kaylene Brooke MD [address] [place] [address] PCP - General General Internal Medicine 01/27/22 Farooq Marcus MD [address] [place] [address] PCP - General Family Medicine 02/27/22 documented as of this encounter
--- OUTSIDE RECORDS SUMMARY | 2024-12-12 10:43 | XMS_ITS | Encounter Summary ---
Author Organization [employer] ([place], [place], [place], [place]) Address [address] [place] [address] Care Team Providers Care Physician Coder Name Role Phone Kaylene Brooke MD Primary Care Provider [phone] Farooq Marcus MD Primary Care Provider Encounter Details Date Type Department Care Team (Late st Contact Info) Description 09/28/2020 Transcribed Document [facility] [place] Family Medicine [address] [place] [address] ProviderRayray MD [address] [place], [place] [address] Social History Tobacco Use Types Packs/Day Years [...] - 09/28/2020 17:09 EDT Electronically signed by [facility] Conversion Trouble Clerk Cerner at 06/29/2022 2:21 PM CDT documented in this encounter Plan of Treatment Upcoming Encounters Date Type Department Care Team (Late st Contact Info) Description 05/25/2025 10:45 AM EDT Office Visit [facility] - [place] [address] [facility] [address] [place] [address] Jalen Enciso MD [address] [facility] [address] [place] [address] documented as of this encounter Visit Diagnoses Not on filedocumented in this encounter Care Teams Physician Coder Relationship Specialty Start Date End Date Kaylene Brooke MD [address] [place] [address] PCP - General General Internal Medicine 01/27/22 Farooq Marcus MD [address] [place] [address] PCP - General Family Medicine 02/27/22 documented as of this encounter
--- OUTSIDE RECORDS SUMMARY | 2024-12-12 10:43 | XMS_ITS | Encounter Summary ---
Author Organization [employer] ([place], [place], [place], [place]) Address [address] [place] [address] Care Team Providers Care Consultant Dietitian Name Role Phone Kaylene Brooke MD Primary Care Provider Farooq Marcus MD Primary Care Provider [phone] Encounter Details Date Type Department Care Team (Late st Contact Info) Description 09/27/2020 Transcribed Document [facility] [place] Family Medicine [facility] [place] [address] ProviderRayray MD [address] [place], [place] [address] Social History Tobacco Use Types Packs/Day Years Used Date Smoking Tobacco: Never Assessed Sex and Gender Information Value Date Recorded Sex Assigned at Not on file Legal Sex Male 5:14 PM CDT Gender Identity Not on file Sexual Orientation Not on file documented as of this encounter Miscellaneous Notes * [employer] Conversion Note - Rayray ProviderMD - 09/27/2020 2:00 AM CDT Learning Disabilities Resource Teacher Details Entered On: 09/28/2020 3:17 EDT Performed [...] Description 05/25/2025 10:45 AM EDT Office Visit [facility] - [place] [address] [place] [address] Jalen Enciso MD [address] [place] [place] [address] documented as of this encounter Visit Diagnoses Not on filedocumented in this encounter Care Teams Consultant Dietitian Relationship Specialty Start Date End Date MendyKaylene dunn MD [address] [place] [address] PCP - General General Internal Medicine 01/27/22 Farooq Marcus MD [address] [facility] [place] [address] PCP - General Family Medicine 02/27/22 documented as of this encounter
--- OUTSIDE RECORDS SUMMARY | 2024-12-12 10:43 | XMS_ITS | Encounter Summary ---
Author Organization [employer] ([place], [place], [place], [place]) Address [address] [place] [address] Care Team Providers Care Glory Hole Tender Name Role Phone Kaylene Brooke MD Primary Care Provider [phone] Farooq Marcus MD Primary Care Provider Encounter Details Date Type Department Care Team (Late st Contact Info) Description 09/28/2020 Transcribed Document [facility] [place] Family Medicine [address] [place] [address] ProviderRayray MD [address] [place], [place] [address] Social History Tobacco Use Types Packs/Day Years [...] as outpatient. Nothing else to add. . Electronically signed by Malina Jacob Conversion Slitting Machine Operator Helper Cerner at 06/29/2022 2:11 PM CDT documented in this encounter Plan of Treatment Upcoming Encounters Date Type Department Care Team (Late st Contact Info) Description 05/25/2025 10:45 AM EDT Office Visit [place] [facility] - [facility] [address] [facility] [address] [place] [address] Jalen Enciso MD [address] [place] [address] documented as of this encounter Visit Diagnoses Not on filedocumented in this encounter Care Teams Glory Hole Tender Relationship Specialty Start Date End Date Kaylene Brooke MD [address] [place] [address] PCP - General General Internal Medicine 01/27/22 Farooq Marcus MD [address] [facility] [place] [address] PCP - General Family Medicine 02/27/22 documented as of this encounter
--- OUTSIDE RECORDS SUMMARY | 2024-12-12 10:43 | XMS_ITS | Encounter Summary ---
Author Organization [employer] ([place], [place], [place], [place]) Address [address] [place] [address] Care Team Providers Care Public Affairs Manager Name Role Phone Kaylene Brooke MD Primary Care Provider [phone] Farooq Marcus MD Primary Care Provider [phone] Encounter Details Date Type Department Care Team (Late st Contact Info) Description 09/26/2020 Transcribed Document [facility] [place] [address] [place] [address] ProviderRayray MD [address] [place], [place] [address] Social History Tobacco Use Types Packs/Day Years [...] but improved -CXR showed bibasilar opacities -[facility]'ed, continue zosyn Acute Pancreatitis, improved -On admission [...] 7-8 range Monitor CAD -per pt s/p [facility] and PCI [address] topete done at [facility] -pt stopped taking brilinta on his own accord shortly after the PCI as it was making him sob -on aspirin 81 mg daily. plavix started here syncope 2 weeks ago two weeks prior to admission, was at [facility] for this stay Depression -start on antidepressant last week with dr enciso -pt and unsure what medication this was. 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 -follows with dr topete and dr COSTA in [place] Dispo: Advance diet today and evaluate tolerance [...] ALYC # 0 K/uL 09/26/2020 06:05 EDT [place] Percent Man 8 % (High) 09/26/2020 06:05 EDT Eos Percent Man 2 % 09/26/2020 06:05 EDT [place] Percent Man 1 % 09/26/2020 06:05 EDT RBC Morphology Normal 09/26/2020 06:[address] Estimate Decreased (Abnormal) 09/26/2020 06:05 EDT Slide Review Add Diff 09/26/2020 06:05 EDT documented in this encounter Plan of Treatment Upcoming Encounters Date Type Department Care Team (Late st Contact Info) Description 05/25/2025 10:45 AM EDT Office Visit [facility] - [place] [address] [place] [address] Jalen Enciso MD [address] [place] [address] documented as of this encounter Visit Diagnoses Not on filedocumented in this encounter Care Teams Public Affairs Manager Relationship Specialty Start Date End Date Kaylene Brooke MD [address] [place] [address] PCP - General General Internal Medicine 01/27/22 Farooq Marcus MD [address] [place] [address] PCP - General Family Medicine 02/27/22 documented as of this encounter
--- OUTSIDE RECORDS SUMMARY | 2024-12-12 10:43 | XMS_ITS | Encounter Summary ---
Author Organization [employer] ([place], [place], [place], [place]) Address [address] [place] [address] Care Team Providers Care Labelling Machine Operator Name Role Phone Kaylene Brooke MD Primary Care Provider [phone] Farooq Marcus MD Primary Care Provider [phone] Encounter Details Date Type Department Care Team (Late st Contact Info) Description 09/26/2020 Transcribed Document [facility] [place] [address] ProviderRayray MD [address] [place], [place] [address] Social History Tobacco Use Types Packs/Day Years [...] hopefully will continue to improve with time. Electronically signed by Malina Jacob Conversion Carbon Capture Power Plant Engineer Cerner at 06/29/2022 2:37 PM CDT documented in this encounter Plan of Treatment Upcoming Encounters Date Type Department Care Team (Late st Contact Info) Description 05/25/2025 10:45 AM EDT Office Visit [facility] - [place] [address] [place] [address] Jalen Enciso MD [address] [facility] [address] [place] [address] documented as of this encounter Visit Diagnoses Not on filedocumented in this encounter Care Teams Labelling Machine Operator Relationship Specialty Start Date End Date Kaylene Brooke MD [address] [place] [address] PCP - General General Internal Medicine 01/27/22 Farooq Marcus MD [address] [place] [address] PCP - General Family Medicine 02/27/22 documented as of this encounter
--- OUTSIDE RECORDS SUMMARY | 2024-12-12 10:43 | XMS_ITS | Encounter Summary ---
Author Organization [employer] ([place], [place], [place], [place]) Address [address] [place] [address] Care Team Providers Care Process Safety Specialist Name Role Phone Kaylene Brooke MD Primary Care Provider [phone] Farooq Marcus MD Primary Care Provider [phone] Encounter Details Date Type Department Care Team (Late st Contact Info) Description 09/27/2020 Transcribed Document [facility] [place] Medicine [address] [place] [address] ProviderRayray MD [address] [place], [place] [address] Social History Tobacco Use Types Packs/Day Years [...] Description 05/25/2025 10:45 AM EDT Office Visit [facility] - [place] [place] [address] Jalen Enciso MD [address] [place] [address] documented as of this encounter Visit Diagnoses Not on filedocumented in this encounter Care Teams Process Safety Specialist Relationship Specialty Start Date End Date Kaylene Brooke MD [address] [place] [address] PCP - General General Internal Medicine 01/27/22 Farooq Marcus MD [address] [place] [address] PCP - General Family Medicine 02/27/22 documented as of this encounter
--- OUTSIDE RECORDS SUMMARY | 2024-12-12 10:43 | XMS_ITS | Encounter Summary ---
Author Organization [employer] ([place], [place], [place], [place]) Address [address] [place] [address] Care Team Providers Care Gas Line Servicer Name Role Phone Kaylene Brooke MD Primary Care Provider [phone] Farooq Marcus MD Primary Care Provider [phone] Encounter Details Date Type Department Care Team (Late st Contact Info) Description 09/28/2020 Transcribed Document [facility] [place] Medicine [address] [place] [address] Rayray San MD [address] [place], [place] [address] Social History Tobacco Use Types Packs/Day Years [...] caused your condition. General instructions ??? Take hhzb-mkk-ylzptts and prescription medicines only as told by your health care provider. ??? Do not drive or use heavy machinery while taking prescription pain medicine. ??? Ask your health care provider if the medicine prescribed to you can cause constipation. You may need to take steps to prevent or treat constipation, such as: ? Take an liwf-lzm-qnkqljg or prescription medicine for constipation. ? Eat [...] Reviewed: 09/02/2018 Laila Patient Education ? 2019 [employer] documented in this encounter Plan of Treatment Upcoming Encounters Date Type Department Care Team (Late st Contact Info) Description 05/25/2025 10:45 AM EDT Office Visit [facility] - [address] [place] [address] Jalen Enciso MD [address] [place] [address] documented as of this encounter Visit Diagnoses Not on filedocumented in this encounter Care Teams Gas Line Servicer Relationship Specialty Start Date End Date Kaylene Brooke MD [address] [place] [address] PCP - General General Internal Medicine 01/27/22 Farooq Marcus MD [address] [address] PCP - General Family Medicine 02/27/22 documented as of this encounter
--- OUTSIDE RECORDS SUMMARY | 2024-12-12 10:43 | XMS_ITS | Encounter Summary ---
Author Organization [employer] ([place], [place], [place], [place]) Address [address] [place] [address] Care Team Providers Care Science Teacher Name Role Phone Kaylene Brooke MD Primary Care Provider [phone] Farooq Marcus MD Primary Care Provider [phone] Encounter Details Date Type Department Care Team (Late st Contact Info) Description 09/28/2020 Transcribed Document [facility] [place] [facility] [place] [address] ProviderRayray MD [address] [place], [place] [address] Social History Tobacco Use Types Packs/Day Years [...] 09/28/2020 15:25 EDT Electronically signed by Nidia [facility] Conversion Instrumentation Instructor Cerner at 06/29/2022 2:14 PM CDT documented in this encounter Plan of Treatment Upcoming Encounters Date Type Department Care Team (Late st Contact Info) Description 05/25/2025 10:45 AM EDT Office Visit [facility] - [place] [address] [place] [address] Jalen Enciso MD [address] [place] [address] documented as of this encounter Visit Diagnoses Not on filedocumented in this encounter Care Teams Science Teacher Relationship Specialty Start Date End Date Kaylene Brooke MD [address] [place] [address] PCP - General General Internal Medicine 01/27/22 Farooq Marcus MD [address] [place] [address] PCP - General Family Medicine 02/27/22 documented as of this encounter
--- OUTSIDE RECORDS SUMMARY | 2024-12-12 10:43 | XMS_ITS | Encounter Summary ---
Author Organization [employer] ([place], [place], [place], [place]) Address [address] [place] [address] Care Team Providers Care Scheduling Manager Name Role Phone Kaylene Brooke MD Primary Care Provider [phone] Farooq Marcus MD Primary Care Provider [phone] Encounter Details Date Type Department Care Team (Late st Contact Info) Description 09/27/2020 Transcribed Document [facility] [place] [address] [place] [address] ProviderRayray MD [address] [place], [place] [address] Social History Tobacco Use Types Packs/Day Years [...] elevated but improved -CXR showed bibasilar opacities -[facility]ed, Transition from Zosyn to Augmentin Acute [...] months ago with dr topete done at [facility] -pt stopped taking brilinta on his own accord shortly after the PCI as it was making him sob -on aspirin 81 mg daily. plavix started here syncope 2 weeks ago two weeks prior to admission, was at [facility] for this stay Depression -start on antidepressant last week with dr enciso -pt and unsure what medication this was. 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 -follows [place] dr topete [place] Dispo: Hope to [place] tomorrow VTE Prophylaxis [...] Man 16 % (Low) 09/27/2020 11:14 EDT [place] Percent Man 16 % (High) 09/27/2020 11:14 EDT Eos Percent Man 3 % 09/27/2020 11:14 EDT Baso Percent Man 0 % 09/27/2020 11:14 EDT RBC Morphology Abnormal 09/27/2020 11:14 EDT Anisocytosis 1+ (Abnormal) 09/27/2020 11:14 EDT Poikilocytosis 1+ (Abnormal) 09/27/2020 11:14 EDT Ovalocytes 1+ (Abnormal) 09/27/2020 11:[address] Estimate Adequate 09/27/2020 11:14 EDT Slide Review Add Diff 09/27/2020 11:14 EDT Electronically signed by Malina Jacob Conversion Back Feeder Plywood Layup Line Cerner at 06/29/2022 2:14 PM CDT documented in this encounter Plan of Treatment Upcoming Encounters Date Type Department Care Team (Late st Contact Info) Description 05/25/2025 10:45 AM EDT Office Visit [facility] - [place] [place] [address] Jalen Enciso MD [address] [facility] [address] [place] [address] documented as of this encounter Visit Diagnoses Not on filedocumented in this encounter Care Teams Scheduling Manager Relationship Specialty Start Date End Date Kaylene Brooke MD [address] [place] [address] PCP - General General Internal Medicine 01/27/22 Farooq Marcus MD [address] [place] [address] PCP - General Family Medicine 02/27/22 documented as of this encounter
--- OUTSIDE RECORDS SUMMARY | 2024-12-12 10:43 | XMS_ITS | Clinical Summary ---
Author Organization [employer] ([place], [place], [place], [place]) Address [address] [place] [address] Care Team Providers Care Lead Atg Developer Name Role Phone Farooq Marcus MD Primary Care Provider [phone] Allergies Active Allergy Reactions Criticality Noted Date [...] Type Department Care Team Description 12/09/2024 Telephone [facility] - [address] [place] [address] Jalen Enciso MD medical records request 11/24/2024 2:00 PM EDT Office Visit [facility] - [place] [address] [place] [address] Jalen Enciso MD Adenocarcinoma of gastroesophageal junction (HCC) (Primary Dx) 11/24/2024 Travel 11/21/2024 Telephone [facility] - [place] [address] [place] [address] Jalen Enciso MD Appointment 09/29/2024 Telephone [facility] - [place] [address] [place] [address] Jalen Enciso MD Leg Swelling [...] Date Scotty rded Speak language other than Cypriot at home Not on file 03/22/2023 Want [...] 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 Not on file Not [...] Description 05/25/2025 10:45 AM EDT Office [facility] [address] [facility] [address] [place] [address] Jalen Enciso MD [address] [place] [address] Health Maintenance Due Date Last Done Comments Medicare Initial AWV G0438 Depression Screening (12+) 1947 Pneumococcal 50+ years (1 of 1 - PCV) 12/02/1987 Shingles Vaccine (Zoster) (1 of 2) 12/02/1987 Respiratory Syncytial Virus (RSV) Adult or (1 - 1-dose 75+ series) 2012 Falls Risk Screening 03/12/2024 COVID-19 VACCINE (2024- season) 2024 11/10/2020, 05/19/2020, 04/21/2020 Influenza Vaccine (#1) 2024 Tobacco Cessation Counseling and Screening (12+) 11/24/2025 11/24/2024 DTAP/TDAP/TD VACCINES (3 - T d or Tdap) 07/31/2031 07/30/2021, 05/15/1996 Insurance MEDICARE PART A B Care Teams Lead Atg Developer Relationship Specialty Start Date End Date Farooq Marcus MD [address] [place] [address] PCP - General Family Medicine 02/27/22
--- OUTSIDE RECORDS SUMMARY | 2024-12-12 10:43 | XMS_ITS | Encounter Summary ---
Author Organization [employer] ([place], [place], [place], [place]) Address [address] [place] [address] Care Team Providers Care Internet Technology Manager Name Role Phone Kaylene Brooke MD Primary Care Provider [phone] Farooq Marcus MD Primary Care Provider [phone] Encounter Details Date Type Department Care Team (Late st Contact Info) Description 09/28/2020 Transcribed Document [facility] Family Medicine [place] [address] ProviderRayray MD [address] [place], [place] [address] Social History Tobacco Use Types Packs/Day Years [...] Date 09/28/2020 Primary Care Provider [facility]ZIN SH[facility]AN [facility] Discharge Diagnosis Pancreatitis 09/22/2020 K85.90 ICD-10-CM [...] 0.76 m/s E/A ratio: 0.81 m/s Volume [id number] LV length: 6.35 cm ml Volume kywlnneb47.41 ml LVOT diameter: 2.06 cm Normal sized [...] coronary artery disease last with PCI in [facility] about 2 months ago as well as pacemaker for heart rhythm , possibly afib who presented to [facility] on 09/22 for evaluation of abd pain [...] stent placement about 2 months ago in [facility] he was started on brilinta and aspirin and didnt like how it made me feel thus he stopped taking the brilinta. He had syncopal episode after taking metoprolol and protonix and thus stopped taking those too about 2 weeks ago. He was also hospitalized at [facility] then. He reports significant weight loss as [...] elevated but improved -[facility]ilar [facility]acities [facility]--completed course [...] months ago with dr topete done at [facility] -pt stopped taking brilinta on his own accord shortly after the PCI as it was making him sob -on aspirin 81 mg daily. plavix started here syncope 2 weeks ago two weeks prior to admission, was at [facility] for this stay Depression -start on antidepressant, (they couldn't give any more info), last week with dr enciso 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 -follows with dr topete and dr COSTA in [place] Vital Signs T: 36.6 ??C TMIN: 36.6 [...] Home Care Discharge Follow Up MAZIN SHERIDAN [facility] - Within 5 to 7 days [...] Description 05/25/2025 10:45 AM EDT Office Visit [facility] - [place] [address] [place] [address] Jalen Enciso MD [address] [place] [address] documented as of this encounter Visit Diagnoses Not on filedocumented in this encounter Care Teams Internet Technology Manager Relationship Specialty Start Date End Date Kaylene Brooke MD [address] [place] [address] PCP - General General Internal Medicine 01/27/22 Farooq Marcus MD [facility] [place] [address] PCP - General Family Medicine 02/27/22 documented as of this encounter
--- OUTSIDE RECORDS SUMMARY | 2024-12-12 10:43 | XMS_ITS | Encounter Summary ---
Author Organization [employer] ([place], [place], [place], [place]) Address [address] [place] [address] Care Team Providers Care Ductfixing Plumber Name Role Phone Kaylene Brooke MD Primary Care Provider [phone] Farooq Marcus MD Primary Care Provider [phone] Encounter Details Date Type Department Care Team (Late st Contact Info) Description 09/27/2020 Transcribed Document [facility] [place] [facility] [place] [address] ProviderRayray MD [address] [place], [place] [address] Social History Tobacco Use Types Packs/Day Years [...] On: 09/27/2020 15:37 EDT by ELIZABETH LAMBERT, RN-Logistics Operations DirectorTablet Tester Progress Note Discharge Arrangements : Patient Post-Acute Information Patient Name: DOYLE DEL ANGEL Gender: Male : 39 Age: 84 Years No Post-Acute Placement(s) Listed No Post-Acute Service(s) Listed No [place] Referral(s) Listed Is the Patient Meeting Medical Necessity : Yes Did you Attend Multidisciplinary Rounds? : Yes ELIZABETH LAMBERT, RN-Logistics Operations Director - 09/27/2020 15:37 EDT Narrative Progress Note Narrative Progress Note : rrs mod boost 3 5/5 day s cm spoke to daughter and patient . cm arranged for [facility] and [facility] from [facility] an acute care hospital . choice /im needed . family [...] CM will continue to follow. ELIZABETH LAMBERT RN-Logistics Operations Director - 09/24/20 16:39:43 ELIZABETH LAMBERT RN-Logistics Operations Director - 09/27/2020 15:37 EDT Electronically signed by Nidia [facility] Conversion B2B Sales Executive Cerner at 06/29/2022 2:10 PM CDT documented in this encounter Plan of Treatment Upcoming Encounters Date Type Department Care Team (Late st Contact Info) Description 05/25/2025 10:45 AM EDT Office Visit [facility] - [address] [place] [address] Jalen Enciso MD [address] [facility] [address] [place] [address] documented as of this encounter Visit Diagnoses Not on filedocumented in this encounter Care Teams Ductfixing Plumber Relationship Specialty Start Date End Date Kaylene Brooke MD [address] [place] [address] PCP - General General Internal Medicine 01/27/22 Farooq Marcus MD [address] [place] [place] [address] PCP - General Family Medicine 02/27/22 documented as of this encounter
[2024-12-12] MEDS: SODIUM CHLORIDE 0.9% 10ML SYR (RAD ONLY) 10 ML IV (11:12)
[2024-12-12] MEDS: IOPAMIDOL-370 (76%);100ML BOTTLE 75 ML IV (11:12)
--- NOTE | 2024-12-12 11:15 | CT_ITS ---
FINAL REPORT TECHNIQUE: Routine axial images were obtained from the lung apices to below the diaphragm following IV contrast administration. Individualized dose reduction techniques using automated exposure control or adjustment of the mA and/or kV according to the patient size were employed. CLINICAL HISTORY: Esophageal cancer COMPARISON: 12/30/2023 FINDINGS: Left upper anterior chest wall pacemaker is identified. Streak artifact is arising from pacemaker leads. There is mild mucosal thickening of the distal esophagus best seen on image 65 of series 4. There is no periesophageal adenopathy. No pleural or pericardial effusion is seen. There are a few small scattered mediastinal lymph nodes. Bilobed nodule in the inferior right upper lobe measures 11 x 4 mm is stable from prior exam. This is best seen on image 48 of series 4. There is chronic scarring at the bases. There is also a 4 mm nodule in the left lower lobe which is stable well-seen on image 42 of series 4. IMPRESSION: Mild wall thickening of the distal esophagus, stable. Stable pulmonary nodules. Recommend follow-up in 1 year. Reviewed, Interpreted and Dictated by Vincenzo Johnson MD Transcribed by Tere Palmer Authenticated and [facility]
--- NOTE | 2024-12-12 11:15 | CT_ITS ---
FINAL REPORT TECHNIQUE: After the administration of oral and intravenous contrast, axial images were obtained through the abdomen and pelvis by computed tomography. The study was performed with techniques to keep radiation dose as low as reasonably achievable, (ALARA). Individual dose reduction techniques using automated exposure control or adjustment of mA and/or kV according to the patient's size were employed. CLINICAL HISTORY: Esophageal cancer COMPARISON: 12/30/2023 FINDINGS: Abdomen: The liver parenchyma is homogeneous. The gallbladder is absent. The spleen, pancreas, and adrenals are unremarkable. There are a multitude of bilateral renal cysts. Individual cysts measure up to 4.2 cm. The aorta is normal in caliber. There is no free fluid or adenopathy. Pelvis: The appendix is unremarkable. There is dense vascular calcification in the iliac vessels. The urinary bladder is distended with multiple small bladder diverticuli seen at the margins of the bladder. There is no free fluid or adenopathy. There is facet sclerosis. IMPRESSION: Bladder diverticuli. Bilateral renal cysts. Reviewed, Interpreted and Dictated by Vincenzo Johnson MD Transcribed by Tere Palmer Authenticated and [facility]
== END 2024-12-12 23:59 | disposition home or self-care (01) ==
LOC: RAD 10:37
PROVIDERS: PCP Family Medicine; Visit Provider Internal Medicine Medical Oncology
DX: C15.4 Malignant neoplasm of middle third of esophagus (principal); K22.89 Other specified disease of esophagus; R91.8 Other nonspecific abnormal finding of lung field; N32.3 Diverticulum of bladder; N28.1 Cyst of kidney, acquired
CPT/HCPCS: 71260; 74177; Q9967

== ENCOUNTER 2024-12-22 08:21 | Emergency (ER) | payer MEDICARE, SELFPAY ==
--- OUTSIDE RECORDS SUMMARY | 2024-11-24 14:00 | XMS_ITS | Encounter Summary ---
Author Organization [employer] ([place], [place], [place], [place]) Address [address] [place] [address] Care Team Providers Care Casting Machine Control Board Operator Name Role Phone Farooq Marcus MD Primary Care Provider [phone] Reason for Visit * Reason Comments Follow-up Adenocarcinoma of gastroesophageal junct ion Encounter Details Date Type Department Care Team (Latest Contact Info) Description 11/24/2024 2:00 PM EDT [facility] [address] [facility] [address] [place] [address] Jalen Enciso MD [address] [facility] [address] [place] [address] Adenocarcinoma of gastroesophageal junction (HCC) (Primary Dx) Social History Tobacco Use Types Packs/Day Years [...] Date Scotty rded Speak language other than Kosovan at home Not on file 03/22/2023 Want [...] 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 Not on file Not on file documented as of this encounter Last Filed Vital Signs Vital Sign Reading Time Taken Comments Blood Pressure 120/56 11/24/2024 1:39 PM EDT Pulse 67 11/24/2024 1:39 PM EDT Temperature 36.9 C (98.4 F) 11/24/2024 1:39 PM EDT Respiratory Rate 18 11/24/2024 1:39 PM EDT Oxygen Saturation 94% 11/24/2024 1:39 PM EDT Inhaled Oxygen Concentration - - Weight 79.7 kg (175 lb 9.6 oz) 11/24/2024 1:39 P M EDT Height 182.9 cm (6') 11/24/2024 1:39 PM EDT Body Mass Index 23.82 11/24/2024 1:39 PM EDT documented in this encounter Progress Notes * Jalen Enciso MD - 11/24/2024 2:00 PM EDT Chief Complaint: History of Present Illness: Rancho Del Angel is a 88 y.o. male who presents today for follow up of metastatic gastroesophageal junction cancer. He is without any new or additional complaints. He had a accident at home where he felldown a hill side but did not injure himself severely. He is occasional dysphagia but nothing severe. He is not losing weight. He has no right upper quadrant abdominal pain. He is without other additional concerns Past Medical History: Diagnosis Date Asthma Cardiac disease 2009 Depression Dyslipidemia Gastroesophageal cancer (HCC) GERD (gastroesophageal reflux disease) History of radiation therapy 06/11/2020 distal esophagus 10 fx / 3000 cGy Hypertension Pacemaker 11/08/2022 Dr. 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 A. Patient with periesophageal, bilateral hilar, and hepatic metastasis. B. Completion of palliative radiation from 05/31/2020 through 06/11/2020. C. Taxol and Herceptin single agent weekly given from 06/21/2020 through 09/17/2020, discontinued in complete remission with progressive side effects. D. CPS of 5. E. Recurrence in esophagus bx proven 02/2023 Gastroesophageal cancer (HCC) 05/05/2022 Initial Diagnosis Gastroesophageal cancer (HCC) Allergies: Oxycodone Medications: Current Outpatient Medications on File Prior to Visit Medication Sig Dispense Refill LORazepam (ATIVAN) 1 MG tablet Take 1 tablet (1 mg total) by mouth 3 (three) times daily. pantoprazole (PROTONIX) 40 MG tablet Take 1 tablet (40 mg total) by mouth 2 (two) times daily. ramipriL (ALTACE) 10 MG capsule Take 1 capsule (10 mg total) by mouth daily. metoprolol succinate (TOPROL-XL) 25 MG 24 hr tablet Take 1 tablet (25 mg total) by mouth daily. (Patient not taking: Reported on 11/24/2024.) montelukast (SINGULAIR) 10 mg tablet Take 1 tablet (10 mg total) by mouth daily. (Patient not taking: Reported on 11/24/2024.) No current facility-administered medications on file prior to visit. Review of Systems: Review of Systems All other systems reviewed and are negative. Vitals: Vitals: 11/24/24 1339 BP: 120/56 Pulse: 67 Resp: 18 Temp: 98.4 ??F (36.9 ??C) SpO2: 94% Weight: 79.7 kg (175 lb 9.6 oz) Height: 1.829 m (6') Physical Exam: Physical Exam Vitals reviewed. Constitutional: Appearance: Normal appearance. HENT: Head: Normocephalic and atraumatic. Mouth/Throat: Mouth: Mucous membranes are moist. Pharynx: Oropharynx is clear. Eyes: Extraocular Movements: Extraocular movements intact. Conjunctiva/sclera: Conjunctivae normal. Pupils: Pupils are equal, round, and reactive to light. Neck: Comments: No cervical supraclavicular or axillary adenopathy Cardiovascular: Rate and Rhythm: Normal rate and regular rhythm. Pulses: Normal pulses. Heart sounds: Normal heart sounds. Pulmonary: Effort: Pulmonary effort is normal. Breath sounds: Normal breath sounds. Comments: No dullness to percussion in the lung bases bilaterally Abdominal: General: Abdomen is flat. Palpations: Abdomen is soft. Comments: No hepatomegaly below the right costal margin Musculoskeletal: General: Normal range of motion. Cervical back: Normal range of motion and neck supple. Comments: He has a laceration on his right arm but no significant swelling of the extremities certainly no signs of any possible bone fracture Neurological: General: No focal deficit present. Mental Status: He is alert. Mental status is at baseline. Comments: No deficits Relevant Results: No visits with results within 21 Day(s) from this visit. Latest known visit with results is: Office Visit on 07/20/2023 Component Date Value Ref Range Status WBC 07/20/2023 6.4 4.5 - 11.0 K/??L Final RBC 07/20/2023 4.45 (L) 4.50 - 5.50 M/??L Final Hemoglobin 07/20/2023 14.3 13.5 - 17.5 GM/DL Final Hematocrit 07/20/2023 43.5 41.0 - 53.0 % Final MCV 07/20/2023 98 80 - 100 fL Final MCH 07/20/2023 32.1 26.0 - 34.0 pg Final MCHC 07/20/2023 32.9 31.0 - 37.0 GM/DL Final RDW 07/20/2023 12.7 12.0 - 16.8 % Final Platelets 07/20/2023 157 140 - 440 K/CU MM Final MPV 07/20/2023 9.3 6.7 - 10.8 fL Final % Neutros 07/20/2023 73 45 - 80 % Final % Lymphs 07/20/2023 16 15 - 45 % Final % Monos 07/20/2023 9 0 - 10 % Final % Eos 07/20/2023 2 0 - 5 % Final % Baso 07/20/2023 0 0 - 3 % Final # Neutros 07/20/2023 4.64 2.00 - 8.80 K/??L Final # Lymphs 07/20/2023 1.04 0.70 - 5.50 K/??L Final # Monos 07/20/2023 0.57 0.00 - 1.70 K/??L Final # Eos 07/20/2023 0.11 0.00 - 0.80 K/??L Final # Baso 07/20/2023 0.01 0.00 - 0.20 K/??L Final No results found. Cancer Staging Gastroesophageal cancer (HCC) Staging form: Esophagus - Adenocarcinoma, AJCC 8th Edition - Clinical stage from 05/10/2020: Stage IVB (cTX, cN1, pM1) - Unsigned Plan: He is doing extremely well. He will return in 6 months. If he develops severe dysphagia wouldhave to either think of a stent or feeding tube. Right now he seems to be doing well. I did not make other additional or new recommendations. Overall he has had a significantly better outcome than what I envision when I first met him Signed: Electronically signed by Jalen Enciso MD 11/24/24 3:06 PM EDT Farooq Marcus MD documented in this encounter Plan of Treatment Upcoming Encounters Date Type Department Care Team (Late st Contact Info) Description 05/25/2025 10:45 AM EDT Office Visit [facility] - [address] [facility] [address] [place] [address] Jalen Enciso MD [address] [place] [address] [place] [address] documented as of this encounter Visit Diagnoses Diagnosis Adenocarcinoma of gastroesophageal junction (HCC)- Primary documented in this encounter Care Teams Casting Machine Control Board Operator Relationship Specialty Start Date End Date Farooq Marcus MD [address] [place] [address] PCP - General Family Medicine 02/27/22 documented as of this encounter
[2024-12-22] VITALS (10 sets, daily range): BP systolic 120–154; BP diastolic 61–76; PULSE 54–64; RESP 10–20; TEMP 36.8–36.9; O2SAT 93–100; BMI 21.7
--- NOTE | 2024-12-22 08:21 | ECG_ITS ---
APPROVED REPORT Exam: Resting ECG HR:80 bpm ECG Measurements Heart Rate 80 AXES NH 206 P 76 QRSd 158 QRS -31 QT 389 T 130 QTc 425 Conclusion too much artifact. see repeat Electronically signed by : Jr Palomares, 12/22/2024 15:50:20
--- NOTE | 2024-12-22 08:25 | ECG_ITS ---
APPROVED REPORT Exam: Resting ECG HR:64 bpm ECG Measurements Heart Rate 64 AXES TN 157 P 88 QRSd 110 QRS -80 QT 412 T 70 QTc 422 Conclusion ELECTRONIC ATRIAL PACEMAKER ELECTRONIC VENTRICULAR PACEMAKER ABNORMAL RHYTHM ECG UNCONFIRMED REPORT Electronically signed by : Jr Palomares, 12/22/2024 15:49:54
--- NOTE | 2024-12-22 08:27 | HMH.EDGENADL ---
Discharge Plan Disposition Patient Disposition: Home, Self-Care Condition: Fair Prescriptions Prescriptions: No Action Herve Chowdhury [phone] mcg tablet 1 tab PO DAILY aspirin [Adult Low Dose Aspirin] 81 mg tablet,delayed release (DR/EC) 81 mg PO DAILY Qty: 30 2RF metoprolol succinate 25 mg tablet extended release 24 hr 12.5 mg PO DAILY Qty: 30 2RF tadalafil 5 mg tablet 5 mg PO DAILY PRN Patient Comments: TAKE 1 TABLET BY MOUTH ONCE A DAY NEEDED hydrochlorothiazide 12.5 mg tablet 12.5 mg PO DAILY Patient Comments: TAKE 1 TABLET BY MOUTH EVERY MORNING ramipril [Altace] 10 mg capsule 10 mg PO DAILY Qty: 90 1RF lorazepam 1 MG tablet 1 mg PO BID pantoprazole 40 MG tablet,delayed release (DR/EC) 40 mg PO BID Referrals Follow up/Referrals: Provider,Referral, MD [Primary Care Provider, Medical] - See instructions Activity Restrictions/Add. Instructions Additional Instructions/Restrictions: Follow-up with your PCP to address your headaches. You will likely need an MRI of your head outpatient. Return to the emergency department if you develop vision changes numbness weakness tingling, or if the pain does not go away despite Tylenol and ibuprofen at home. Return if your chest pain worsens or changes in characteristic. Return if you have fevers or shortness of breath. Please follow up with your primary care provider in 2-3 days. Please return to ED if your symptoms worsen, change in location, change in severity, new symptoms develop or if you become concerned for your health. Clinical Impressions Clinical Impression: Headache, Chest pain Print Language Print Language: Kiswahili Discharge ED Provider: Jr Palomares Adult HPI General Chief complaint: Chest Pain Stated complaint: Chest Pain Time Seen by Provider: 12/22/24 08:26 History of Present Illness HPI narrative: Patient is an 89-year-old male with history of coronary artery disease, CHF, sick sinus syndrome s/p pacemaker, esophageal cancer. Patient presents today due to concerns for chest pain and headache. He reports that he has had a dull ache over the left anterior aspect of the chest for at least several weeks now. He reports that it is worse with exertion, but does not necessarily resolve with rest, it is a burning sensation. He denies any significant shortness of breath or lower extremity edema. He is primarily focused on his headache today. He reports that it is a throbbing in nature and has been lasting at least 2 weeks gradually getting worse. It starts posteriorly and radiates anteriorly with some radiation down his neck. He denies any fevers vision changes numbness weakness or tingling focally. Does endorse global weakness and fatigue. Reports that he has been eating and drinking less secondary to some pain with swallowing. He has had to have esophageal dilations in the past. He denies any vomiting diarrhea cough congestion runny nose or abdominal pain flank pain. He reports that he is urinating appropriately. Related Data Home Medications ?Medication ?Instructions ?Recorded ?Confirmed pantoprazole 40 mg tablet,delayed 40 mg PO BID 07/04/20 12/09/24 release lorazepam 1 mg tablet 1 mg PO BID Anxiety 05/14/22 12/09/24 [id number]-ip-[id number] 300 mcg-K 60 1 tab PO DAILY 03/07/23 12/09/24 mcg-lycop 600 mcg-lutein 300 mcg tablet (Centrum Silver Men) hydrochlorothiazide 12.5 mg tablet 12.5 mg PO DAILY 12/09/24 12/09/24 tadalafil 5 mg tablet 5 mg PO DAILY PRN 12/09/24 12/09/24 Previous Rx's ?Medication ?Instructions ?Recorded ramipril 10 mg capsule (Altace) 10 mg PO DAILY #90 caps 09/08/24 aspirin 81 mg tablet,delayed 81 mg PO DAILY #30 tabs 12/02/24 release (Adult Low Dose Aspirin) metoprolol succinate 25 mg 12.5 mg (1/2 x 25 mg) PO DAILY #30 12/02/24 tablet,extended release 24 hr tabs Allergies Allergy/AdvReac Type Severity Reaction Status Date / Time oxycodone AdvReac Agitated Verified 12/09/24 13:51 [facility] Disclaimer: The information contained in this section may have been updated after the patient was seen, as this information can be updated by other users. Medical History Left ankle pain Knee pain Nausea & vomiting Abnormal echocardiogram Dizziness Pneumonia Gastrocnemius muscle tear Pleurisy Foot pain, right Ankle pain, right Crushing injury of leg, right Forehead contusion Lip laceration Medication side effect Takotsubo cardiomyopathy Leukopenia Esophageal cancer Fever Abnormal cardiovascular stress test Atypical chest pain NSTEMI (non-ST elevated myocardial infarction) Esophageal abnormality Dyspnea Chronic systolic heart failure Anxiety about health URI (upper respiratory infection) Seasonal allergies Vertigo Sinusitis Mitral regurgitation Cardiomyopathy Renal insufficiency Syncope and collapse Palpitations Left bundle branch block Hypertensive disorder 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 Nonadherence to medication Palpitations Fall Atypical angina Recent myocardial infarction Chest pain Surgical History Status post cardiac pacemaker procedure Family History (Updated 12/22/24 @ 08:27 by Niecy Luis, RN) Other No significant family history Social History Smoking Status: Never smoker alcohol intake: never substance use type: denies use current occupational status: retired Travel in the last 8 weeks?: Inside the [place] household members: spouse housing: house current occupational exposures/hazards: No caffeine: Yes Have you lived/traveled outside US in past 30 days?: No Contact w/someone who lives/traveled outside US past 30 days?: No Exposure to someone with infectious disease in past 14 days?: No Do you have a fever (greater than 100.4 F or 38 C)?: No Have you tested positive for COVID-19?: No Exposed to someone with COVID-19 in past 14 days?: No Do you have a sore throat?: No Do you have a cough?: No Do you have any weakness?: No Do you have any diarrhea?: No Are you experiencing any unusual bleeding?: No Do you have any muscle aches/pain?: No Do you have any abdominal pain?: No Are you experiencing loss of taste or smell?: No Other Medical History Have you received the Flu Vaccine for this season: No Have you received the Pneumonia Vaccine: Yes ROS Obtained: Yes All systems reviewed & no additional complaints except as documented Physical Exam General General appearance: alert and in no apparent distress Head Head exam: atraumatic and normocephalic Eye Eye exam: Present PERRL and EOMI ENT ENT exam: Present normal oropharynx Neck Neck exam: Present full ROM and trachea midline Chest Chest inspection: Present symmetric chest wall rise Respiratory Respiratory exam: Present normal lung sounds bilaterally; Absent stridor Cardiovascular Cardiovascular exam: Present regular rate and normal rhythm Abdominal Exam Abdominal exam: Present soft; Absent distention or tenderness Extremities Exam Extremities exam: Present full ROM Neurological Exam Neurological exam: Present alert, oriented X3 and CN II-XII intact; Absent motor sensory deficit Psychiatric Psychiatric exam: Present normal mood Skin Skin exam: Present warm and dry Medical Decision Making Medical Records Screening: Per USPSTF and CDC recommendations, given the prevalence of disease in our region, it is our hospital?s policy to screen for HIV and viral Hepatitis for all patients aged 18 and over and those with ongoing risk factors. Lev Inquiry Pt receiving controlled substance: No Vital Signs: 12/22/24 08:27 12/22/24 08:27 12/22/24 08:29 Temperature 98.5 F 98.5 F Temperature Source Oral Pulse Rate 60 59 L Pulse Rate [Right] 60 Respiratory Rate 18 18 20 Blood Pressure 147/65 H Blood Pressure [Right Arm] 147/65 H Blood Pressure Mean Blood Pressure Mean [Right Arm] 92 02 Sat by Pulse Oximetry 96 96 97 Oxygen Delivery Method Oxygen Flow Rate (LPM) 12/22/24 08:30 12/22/24 08:49 12/22/24 09:00 Temperature Temperature Source Pulse Rate 61 60 63 Pulse Rate [Right] Respiratory Rate 19 14 Blood Pressure 154/72 H 142/76 H Blood Pressure [Right Arm] Blood Pressure Mean Blood Pressure Mean [Right Arm] 02 Sat by Pulse Oximetry 97 98 Oxygen Delivery Method Non-Rebreather Oxygen Flow Rate (LPM) 15 12/22/24 09:30 12/22/24 10:07 12/22/24 10:30 Temperature Temperature Source Pulse Rate 58 L 64 57 L Pulse Rate [Right] Respiratory Rate 10 L 13 Blood Pressure 120/71 127/63 Blood Pressure [Right Arm] Blood Pressure Mean 84 Blood Pressure Mean [Right Arm] 02 Sat by Pulse Oximetry 93 L 100 97 Oxygen Delivery Method Room Air Room Air Oxygen Flow Rate (LPM) 12/22/24 11:00 Temperature Temperature Source Pulse Rate 54 L Pulse Rate [Right] Respiratory Rate 14 Blood Pressure 142/68 H Blood Pressure [Right Arm] Blood Pressure Mean 76 Blood Pressure Mean [Right Arm] 02 Sat by Pulse Oximetry 95 Oxygen Delivery Method Oxygen Flow Rate (LPM) Lab Data Lab Results 12/22/24 08:26: WBC 6.2, RBC 4.51 L, Hgb 14.2, Hct 42.8, MCV 94.9 H, MCH 31.5 H, MCHC 33.2, RDW 12.7, Plt Count 166, MPV 10.0, Neut % (Auto) 65.5, Lymph % (Auto) 18.6, [place] % (Auto) 9.2, Eos % (Auto) 5.2, Baso % (Auto) 0.5, Neut # (Auto) 4.1, Lymph # (Auto) 1.2, [place] # (Auto) 0.6, Eos # (Auto) 0.3, Baso # (Auto) 0.0, PT 10.9, INR 0.98, Sodium 140, Potassium 4.6, Chloride 104, Carbon Dioxide 30, Anion Gap 10.6, BUN 23 H, Creatinine 1.10, Estimated Creat Clear 49, Estimated GFR 63, Est GFR ( Amer) 77, Glucose 75, Calcium 8.8, Magnesium 2.0, Total Bilirubin 1.3, AST 34, ALT 23, Alkaline Phosphatase 82, Troponin I < 0.01, NT-Pro-B Natriuret Pep 269, Total Protein 7.2, Albumin 3.6, Globulin 3.6 H, Albumin/Globulin Ratio 1.0 L 12/22/24 08:43: VBG pH 7.35, VBG pCO2 52.1 H, VBG pO2 43.1 H, VBG HCO3 28.1, VBG Total CO2 29.7 H, VBG O2 Saturation 78.1 H, VBG Base Excess 2.5 H, VBG Lactic Acid 1.7 12/22/24 08:55: SARS-CoV-2 (PCR) Not detected, Influenza A Untype (PCR) Not detected, Influenza Type B (PCR) Not detected 12/22/24 08:26 12/22/24 08:26 Orders (Tests/Meds): ED MEDICATIONS Discontinued Medications Generic Name Dose Route Start Last Admin Trade Name Freq PRN Reason Stop Dose Admin Acetaminophen 1,000 mg 12/22/24 08:42 12/22/24 09:35 Acetaminophen 1,000mg/100ml Vial IV 12/22/24 08:43 1,000 mg ONCE ONE Administration Iopamidol 160 ml 12/22/24 09:57 12/22/24 10:08 Iopamidol-370 (76%);100ml Bottle IV 12/22/24 09:58 160 ml ONCE ONE Administration Sodium Chloride 50 ml 12/22/24 09:57 12/22/24 10:08 0.9 % Sodium Chloride 50 Ml Vial IV 12/22/24 09:58 50 ml ONCE ONE Administration ORDERS Category Date Time Status CT angio head Stat Cat Scan 12/22/24 08:[address] angio neck Stat Cat Scan 12/22/24 08:[address] head/brain wo con Stat Cat Scan 12/22/24 08:42 Completed CTA Chest [CT angio chest PE protocol] Stat Cat Scan 12/22/24 08:42 Completed BNP [NT Pro Brain Natriuretic Pep.] Stat Lab 12/22/24 08:26 Completed CBC w/Auto Diff [Complete Blood Count Auto Diff] Stat Lab 12/22/24 08:26 Completed CMP [Comprehensive Metabolic Panel] Stat Lab 12/22/24 08:26 Completed MAG [Magnesium] Stat Lab 12/22/24 08:26 Completed PT INR [Prothrombin Time INR] Stat Lab 12/22/24 08:26 Completed Rapid PCR Covid and Flu A/B Stat Lab 12/22/24 08:55 Completed Trop I [Troponin I] Stat Lab 12/22/24 08:26 Completed VBG [Venous Blood Gas] Stat RT 12/22/24 08:43 Completed ECG Data Tracing #1: I reviewed this ECG and interpreted as documented below: AV paced at a rate of 64 with no obvious acute ischemic ST change when applying Sgarbossa criteria HEART Score History (anamnesis): Slightly suspicious ECG: Normal Age: >65 years Risk factors: 3 or more risk factors Troponin: </= normal limit HEART Score: 4 Medical Decision Narrative: In summary, this 89-year-old male presents to the emergency department today with chest pain and headache. On initial evaluation patient is afebrile, hemodynamically stable, no acute distress. On exam, appears cachectic, but warm and well-perfused. Has slightly dry mucous membranes. Pupils are equal and reactive, cranial nerves II through XII intact, gross motor and sensory in upper and lower extremities are intact. Though he does seem globally weak. He reports the primary issue is his headache. Given that he has a history of cancer, we will proceed with cross-sectional ridging of the head in order to screen for intracranial mass or metastases. Additionally, given his history of hypertension and other comorbidities, at high risk for dissection, versus CVA, however there are no focal deficits, so CVA felt to be less likely. Given chest pain and unable to rule out given on beta-elaine and history of cancer, will screen with CT PE to rule out pulmonary embolism.. I reviewed prior records including previous labs on 12/09/2024 demonstrating mild anemia to 13.8, baseline creatinine 1.2.. ECG personally interpreted demonstrates as above. Patient received Tylenol IV for treatment. Labs personally reviewed demonstrate no, no electrolyte derangement no evidence of anemia no leukocytosis. Compensated respiratory acidosis on VBG. . CT independently interpreted by myself demonstrate no acute intracranial abnormality confirmed by radiology final read. Chest CT demonstrates bilateral atelectasis versus pneumonia, though I favor more likely atelectasis given patient has no leukocytosis and no productive cough no fevers. He also has no dyspnea, only of a burning sensation in his chest. Troponin negative. EKG nonischemic. Chest pain resolved while here. Seems nonischemic to me, he does have a heart score of 5. Reassuringly, does have follow-up with his friend of the court tomorrow. On reassessment, after above interventions, patient reports complete resolution in his symptoms. Even though his CT head is negative, given his history of malignancy, I recommend follow-up outpatient with his PCP for an MRI of the head to rule out intracranial metastases. He is amenable to this. Of note, social determinants of health include poor health literacy,. At this time it was felt that the patient was safe to be discharged home. The patient was in agreement with this plan. The patient was given strict return precautions prior to being discharged from the emergency department. Critical Care Critical Care Time Critical Care Time: No
--- NOTE | 2024-12-22 08:42 | CT_ITS ---
FINAL REPORT TECHNIQUE: Thin section axial images were obtained from the aortic arch to the skull base after intravenous contrast injection per CTA protocol. Multiplanar reconstruction images were obtained. Exam was performed using dose reduction techniques and the ALARA principle. CLINICAL HISTORY: GUO, weakness COMPARISON: None FINDINGS: CTA NECK: Aortic arch: There is a bovine configuration of the aortic arch. There is no significant stenosis of the great vessels at their origins. Right carotid artery: The right common carotid artery is patent without stenosis. The cervical portions of the right internal carotid artery are patent without stenosis. 0% stenosis per NASCET criteria. Left carotid artery: The left common carotid artery is patent without stenosis. The cervical portions of the left internal carotid artery are patent without stenosis. 0% stenosis per NASCET criteria. Vertebral arteries: The vertebral arteries are patent. No significant stenosis. Other soft tissues: No acute findings. IMPRESSION: No evidence of carotid stenosis. 0% per NASCET criteria. Patent vertebral arteries. Reviewed, Interpreted and Dictated by Anahy Morrow MD Transcribed by Karen Lowe Authenticated and [facility]
--- NOTE | 2024-12-22 08:42 | CT_ITS ---
FINAL REPORT TECHNIQUE: Axial imaging of the chest is obtained after the administration of contrast. 3-D MIP reformatted images were also obtained and reviewed per PE protocol. CLINICAL HISTORY: cp, tachy COMPARISON: 12/30/2023 FINDINGS: The pulmonary arteries are well filled. There is no evidence of pulmonary embolus. There is no aortic dissection. Heart size is normal. There is no mediastinal, hilar, or axillary lymphadenopathy. Bilateral lower lobe ground glass opacities and mild airspace disease could be atelectasis. Pneumonia is difficult to exclude. Right middle lobe and lingular opacity is favored to be atelectasis. Trace bilateral pleural effusions. No pericardial effusion.. Limited evaluation of the upper abdomen is without acute abnormality. No acute osseous abnormality. IMPRESSION: No evidence of pulmonary embolism or aortic dissection. Bilateral lower lobe atelectasis, pneumonia not excluded. Reviewed, Interpreted and Dictated by Anahy Morrow MD Transcribed by Karen Lowe Authenticated and [facility]
--- NOTE | 2024-12-22 08:42 | CT_ITS ---
FINAL REPORT TECHNIQUE: Thin section axial images are obtained through the brain after intravenous contrast injection. Multiplanar reconstructions were obtained from the axial data. Exam was performed using dose reduction techniques such as automated exposure control, adjustment of the mA and kV according to patient size, and use of iterative reconstruction technique. CLINICAL HISTORY: GUO, weakness COMPARISON: none FINDINGS: The intracerebral portions of the carotid arteries are patent. The anterior and middle cerebral arteries are patent without stenosis or occlusion. The posterior cerebral arteries are patent. The basilar artery is patent. The vertebral arteries are patent. There is no significant stenosis, aneurysm, or AVM. IMPRESSION: Unremarkable CT angiogram of the intracerebral vasculature. Reviewed, Interpreted and Dictated by Anahy Morrow MD Transcribed by Karen Lowe Authenticated and [facility]
--- NOTE | 2024-12-22 08:42 | CT_ITS ---
FINAL REPORT TECHNIQUE: Thin section axial images were obtained from skull base to vertex without contrast. Coronal reconstruction images were obtained from the axial data. Exam was performed using dose reduction techniques such as automated exposure control, adjustment of the mA and kV according to patient size, and use of iterative reconstruction technique. CLINICAL HISTORY: GUO, weakness COMPARISON: 12/11/2020 FINDINGS: There is atrophy. No mass effect or midline shift. No intracranial hemorrhage. No hydrocephalus. Periventricular low density is likely related to changes of chronic small vessel ischemia, progressed compared to the prior study. The basilar cisterns are preserved. The posterior fossa is without acute abnormality. The soft tissues are without acute abnormality. No acute osseous abnormality is identified. IMPRESSION: No acute intracranial abnormality. Atrophy and changes suggesting chronic small vessel ischemia. Reviewed, Interpreted and Dictated by Anahy Morrow MD Transcribed by Karen Lowe Authenticated and [facility]
--- OUTSIDE RECORDS SUMMARY | 2024-12-22 08:45 | XMS_ITS | Encounter Summary ---
Author Organization [employer] ([place], [place], [place], [place]) Address [address] [place] [address] Care Team Providers Care Silk Screen Etcher Name Role Phone Kaylene Brooke MD Primary Care Provider [phone] Farooq Marcus MD Primary Care Provider [phone] Encounter Details Date Type Department Care Team (Late st Contact Info) Description 09/28/2020 Transcribed Document [facility] [place] [facility] [place] [address] ProviderRayray MD [address] [place], [place] [id number] Social History Tobacco Use Types Packs/Day Years Used Date Smoking Tobacco: Never Assessed Sex and Gender Information Value Date Recorded Sex Assigned at Not on file Legal Sex Male 5:14 PM CDT Gender Identity Not on file Sexual Orientation Not on file documented as of this encounter Miscellaneous Notes * Cerner Conversion Note - Rayray ProviderMD - 09/28/2020 2:00 AM CDT Wire Bound Box Machine Operator Details Entered On: 09/28/2020 3:18 EDT Performed [...] Description 05/25/2025 10:45 AM EDT Office Visit [facility] [address] [place] [address] Jalen Enciso MD [address] [place] [address] documented as of this encounter Visit Diagnoses Not on filedocumented in this encounter Care Teams Silk Screen Etcher Relationship Specialty Start Date End Date MendyKaylene dunn MD [address] [place] [address] PCP - General General Internal Medicine 01/27/22 Farooq Marcus MD [address] [place] [address] PCP - General Family Medicine 02/27/22 documented as of this encounter
--- OUTSIDE RECORDS SUMMARY | 2024-12-22 08:45 | XMS_ITS | Encounter Summary ---
Author Organization [employer] ([place], [place], [place], [place]) Address [address] [place] [address] Care Team Providers Care Lean Coach Name Role Phone Kaylene Brooek MD Primary Care Provider Farooq Marcus MD Primary Care Provider [phone] Encounter Details Date Type Department Care Team (Late st Contact Info) Description 10/13/2020 Transcribed Document [facility] [place] [address] [place] [address] ProviderRayray MD [address] [place] [address] Social History Tobacco Use Types Packs/Day Years [...] Description 05/25/2025 10:45 AM EDT Office Visit [facility] [place] [address] [place] [address] Jalen Enciso MD [address] [place] [address] documented as of this encounter Visit Diagnoses Not on filedocumented in this encounter Care Teams Lean Coach Relationship Specialty Start Date End Date Kaylene Brooke MD [address] [place] [address] PCP - General General Internal Medicine 01/27/22 Farooq Marcus MD [address] [place] [address] PCP - General Family Medicine 02/27/22 documented as of this encounter
--- OUTSIDE RECORDS SUMMARY | 2024-12-22 08:45 | XMS_ITS | Encounter Summary ---
Author Organization [employer] ([place], [place], [place], [place]) Address [address] [place] [address] Care Team Providers Care Talent Acquisition Manager Name Role Phone Kaylene Brooke MD Primary Care Provider [phone] Farooq Marcus MD Primary Care Provider [phone] Encounter Details Date Type Department Care Team (Late st Contact Info) Description 10/13/[address] [facility] [place] [facility] [place] [address] ProviderRayray MD [address] [place], [place] [id number] Social History Tobacco Use Types Packs/Day Years [...] Description 05/25/2025 10:45 AM EDT Office Visit [facility] - [place] [address] [place] [address] Jalen Enciso MD [address] [place] [address] documented as of this encounter Visit Diagnoses Not on filedocumented in this encounter Care Teams Talent Acquisition Manager Relationship Specialty Start Date End Date Kaylene Brooke MD [address] [place] [address] PCP - General General Internal Medicine 01/27/22 Farooq Marcus MD [address] [facility] [address] [place] [address] PCP - General Family Medicine 02/27/22 documented as of this encounter
--- OUTSIDE RECORDS SUMMARY | 2024-12-22 08:45 | XMS_ITS | Encounter Summary ---
Author Organization [employer] ([place], [place], [place], [place]) Address [address] [place] [address] Care Team Providers Care Latent Print Examiner Name Role Phone Kaylene Brooke MD Primary Care Provider [phone] Farooq Marcus MD Primary Care Provider [phone] Encounter Details Date Type Department Care Team (Late st Contact Info) Description 10/09/2020 Transcribed Document [facility] [place] [facility] [place] [address] ProviderRayray MD [address] [place] [address] Social History Tobacco Use Types Packs/Day Years [...] notify Primary Care Provider MAZIN SHERIDAN MD-[facility] of change in care plan. Will look at further interventions as needed. Code Status: At this time patient wishes to be Code Status Start: 10/09/20 16:33:00 EDT, Full Code, Continuous Order Time Spent with Patient: [ 17] minutes Electronically signed by [facility] Conversion Endodontic Assistant Cerner at 06/29/2022 2:19 PM CDT documented in this encounter Plan of Treatment Upcoming Encounters Date Type Department Care Team (Late st Contact Info) Description 05/25/2025 10:45 AM EDT Office Visit [facility] [address] [facility] [address] [place] [address] Jalen Enciso MD [address] [facility] [address] [place] [address] documented as of this encounter Visit Diagnoses Not on filedocumented in this encounter Care Teams Latent Print Examiner Relationship Specialty Start Date End Date Kaylene Brooke MD [address] [place] [address] PCP - General General Internal Medicine 01/27/22 Farooq Marcus MD [address] [place] [address] PCP - General Family Medicine 02/27/22 documented as of this encounter
--- OUTSIDE RECORDS SUMMARY | 2024-12-22 08:45 | XMS_ITS | Encounter Summary ---
Author Organization [employer] ([place], [place], [place], [place]) Address [address] [place] [address] Care Team Providers Care Product Applications Engineer Name Role Phone Kaylene Brooke MD Primary Care Provider [phone] Farooq Marcus MD Primary Care Provider [phone] Encounter Details Date Type Department Care Team (Late st Contact Info) Description 10/10/2020 Transcribed Document [facility] [place] [facility] [place] [address] ProviderRayray MD [address] [place] [address] Social History Tobacco Use Types Packs/Day Years Used Date Smoking Tobacco: Never Assessed Sex and Gender Information Value Date Recorded Sex Assigned at Not on file Legal Sex Male 5:14 PM CDT Gender Identity Not on file Sexual Orientation Not on file documented as of this encounter Miscellaneous Notes * Cerner Conversion Note - aRyray San MD - 10/10/2020 10:14 AM CDT [...] Hillary Paredes, RN - 10/10/2020 10:14 EDT Electronically signed by Malina Jacob Conversion Counterintelligence Specialist Cerner at 06/29/2022 2:31 PM CDT documented in this encounter Plan of Treatment Upcoming Encounters Date Type Department Care Team (Late st Contact Info) Description 05/25/2025 10:45 AM EDT Office Visit [facility] [facility] - [place] [address] [place] [address] Jalen Enciso MD [address] [place] [address] documented as of this encounter Visit Diagnoses Not on filedocumented in this encounter Care Teams Product Applications Engineer Relationship Specialty Start Date End Date Kaylene Brooke MD [address] [place] [address] PCP - General General Internal Medicine 01/27/22 Farooq Marcus MD [address] [place] [address] PCP - General Family Medicine 02/27/22 documented as of this encounter
--- OUTSIDE RECORDS SUMMARY | 2024-12-22 08:45 | XMS_ITS | Encounter Summary ---
Author Organization [employer] ([place], [place], [place], [place]) Address [address] [place] [address] Care Team Providers Care Electrical Assembler Name Role Phone Kaylene Brooke MD Primary Care Provider [phone] Farooq Marcus MD Primary Care Provider [phone] Encounter Details Date Type Department Care Team (Late st Contact Info) Description 10/13/2020 Transcribed Document [facility] [place] Medicine [address] [place] [address] Rayray San MD [address] [place], [place] [address] Social History Tobacco Use Types Packs/Day Years [...] these instructions at home: Medicines ??? Take glyc-pno-wokspuo and prescription medicines only as told by [...] provider. Document Revised: 07/16/2018 Document Reviewed: 07/16/2018 [employer] Patient Education ? 2020 [employer]. documented in this encounter Plan of Treatment Upcoming Encounters Date Type Department Care Team (Late st Contact Info) Description 05/25/2025 10:45 AM EDT Office Visit [place] [facility] - [facility] [address] [facility] [address] [place] [address] Jalen Enciso MD [address] [place] [address] documented as of this encounter Visit Diagnoses Not on filedocumented in this encounter Care Teams Electrical Assembler Relationship Specialty Start Date End Date Kaylene Brooke MD [address] [place] [address] PCP - General General Internal Medicine 01/27/22 Farooq Marcus MD [address] [place] [address] PCP - General Family Medicine 02/27/22 documented as of this encounter
--- OUTSIDE RECORDS SUMMARY | 2024-12-22 08:45 | XMS_ITS | Encounter Summary ---
Author Organization [employer] ([place], [place], [place], [place]) Address [address] [place] [address] Care Team Providers Care [employer] Name Role Phone Kaylene Brooke MD Primary Care Provider [phone] Farooq Marcus MD Primary Care Provider [phone] Encounter Details Date Type Department Care Team (Late st Contact Info) Description 09/29/2020 Transcribed Document [facility] [place] [facility] [place] [address] ProviderRayray MD [address] [place] [address] Social History Tobacco Use Types Packs/Day Years [...] PHYSICAL THERAPIST NON-EXEMPT - 09/29/2020 8:33 EDT documented in this encounter Plan of Treatment Upcoming Encounters Date Type Department Care Team (Late st Contact Info) Description 05/25/2025 10:45 AM EDT Office Visit [place] [facility] - [facility] [address] [facility] [address] [place] [address] Jalen Enciso MD [address] [facility] [address] [place] [address] documented as of this encounter Visit Diagnoses Not on filedocumented in this encounter Care Teams [employer] Relationship Specialty Start Date End Date Kaylene Brooke MD [address] [place] [address] PCP - General General Internal Medicine 01/27/22 Farooq Marcus MD [address] [facility] [place] [address] PCP - General Family Medicine 02/27/22 documented as of this encounter
--- OUTSIDE RECORDS SUMMARY | 2024-12-22 08:45 | XMS_ITS | Encounter Summary ---
Author Organization [employer] ([place], [place], [place], [place]) Address [address] [place] [address] Care Team Providers Care Dovetailer Name Role Phone Kaylene Brooke MD Primary Care Provider [phone] Farooq Marcus MD Primary Care Provider [phone] Encounter Details Date Type Department Care Team (Late st Contact Info) Description 10/09/2020 Transcribed Document [facility] [place] [facility] [place] [address] ProviderRayray MD [address] [place] [address] Social History Tobacco Use Types Packs/Day Years [...] EDT Height Source Stated Height Entry Format [place] Height/Length, [place]THER[place] (ft) 6 ft Height/Length [place] 0 Inch CLINICALHEIGHT 182.88 cm Reeder Body Weight 76.59 kg Weight Source, ED Critical estimated dosing weight Weight Entry Format [place]rock[place]on Weight Croatian lb 150 lb CLINICALWEIGHT 68.18 kg Body [...] Triage: ED C-SSRS: ED Clinical Reconciliation: ED manager athletics: Magnesium Level: Normal Saline Bolus: 1,000 mL, [...] Color Yellow Urine Appearance Clear Urine Specific [place] 1.014 Urine pH Dipstick *8.0 Urine Leukocyte [...] % LOW ALYC # 0 K/uL NA [place] Percent Man 15 % HI Eos Percent [...] EDT Office Visit [facility] [place] [address] [place] [address] Jalen Enciso MD [address] [place] [address] documented as of this encounter Visit Diagnoses Not on filedocumented in this encounter Care Teams Dovetailer Relationship Specialty Start Date End Date Kaylene Brooke MD [address] [place] [address] PCP - General General Internal Medicine 01/27/22 Farooq Marcus MD [address] [place] [address] PCP - General Family Medicine 02/27/22 documented as of this encounter
--- OUTSIDE RECORDS SUMMARY | 2024-12-22 08:45 | XMS_ITS | Encounter Summary ---
Author Organization [employer] ([place], [place], [place], [place]) Address [address] [place] [address] Care Team Providers Care Loss Prevention Operations Manager Name Role Phone Kaylene Brooke MD Primary Care Provider [phone] Farooq Marcus MD Primary Care Provider [phone] Encounter Details Date Type Department Care Team (Late st Contact Info) Description 10/13/2020 Transcribed Document [facility] [place] [address] [place] [address] ProviderRayray MD [address] [place] [address] Social History Tobacco Use Types [...] San MD - 10/13/2020 11:38 AM CDT [facility] [address] [place] [id number] [place] :1935 Visit Time:10/10/2020 Your Visit Summary Your Care Team Admitting Physician - KEISHA TUCKER MD Attending Physician - KEISHA TUCKER MD Primary Care Physician - MAZIN SHERIDAN MD-[facility] Referring Physician - SHAINA, NOT LISTED [...] Bring discharge instructions with you. [facility] [address] [address]- Follow Up with MAZIN SHERIDAN MD-FAM When 10/20/2020 10:30 AM EDT Comments PCP follow up. Appointment has been made. Bring discharge instructions with you. Where: [address] [place] [address]- Medications What How Much When Instructions Next Dose erythromycin ophthalmic (erythromycin 0.5% ophthalmic ointment) 1 Application(s) Eye Left Two Times A Day Duration: 5 Day(s) Pickup at [facility] this evening megestrol (Megace 40 mg/ mL oral suspension) 20 Milliliter(s) Oral Every Day Duration: 30 Day(s) Pickup at [facility] tomorrow metoclopramide (Reglan 10 mg oral tablet) 1 Tablet(s) Oral Before Meals and at Bedtime Duration: 14 Day(s) Pickup at [facility] at lunchtime sucralfate (Carafate 1 g/ 10 mL oral suspension) 10 Milliliter(s) Oral Before Meals Duration: 10 Day(s) Pickup at [facility] at lunchtime LORazepam (Ativan 1 mg oral tablet) 1 Tablet(s) Oral Three Times A Day as needed for as needed for anxiety as needed clopidogrel (Plavix 75 mg oral tablet) 1 Tablet(s) Oral Every Day tomorrow venlafaxine (Effexor XR 150 mg oral capsule, extended release) 1 Capsule(s) Oral Every Day NEW DOSE Pickup at [facility] tomorrow aspirin 81 Milligram(s) Oral Every Day tomorrow multivitamin 1 Tablet(s) Oral Every Day tomorrow ondansetron (Zofran 8 mg oral tablet) 1 Tablet(s) Oral Three Times A Day as needed for Nausea as needed pantoprazole (pantoprazole 40 mg oral delayed release tablet) 1 Tablet(s) Oral Every Day tomorrow Pharmacy Information [facility]: [address] [facility] [address] [phone] Take your medications faithfully. Do NOT skip [...] these instructions at home: Medicines ??? Take xqww-qhb-zjhuwol and prescription medicines only as told by [...] provider. Document Revised: 07/16/2018 Document Reviewed: 07/16/2018 [employer] Patient Education ?? 2020 [employer] metoclopramide (oral/injection) (MET oh TRAN martinez) [...] may report side effects to FDA at 7-249-NMM-1365. What other drugs will affect metoclopramide? Using [...] may affect metoclopramide. This includes prescription and yxbb-puh-xviofwx medicines, vitamins, and herbal products. Not all [...] to ensure that the information provided by [employer]. ('[employer]') is accurate, up-to-date, and complete, but no guarantee is made to that effect. Drug information contained herein may be time sensitive. [employer] information has been compiled for use by healthcare practitioners and consumers in the [place] and therefore [employer] does not warrant that uses outside of the [place] are appropriate, unless specifically indicated otherwise. [employer] drug information does not endorse drugs, diagnose patients or recommend therapy. [employer] drug information is an informational resource designed [...] effective or appropriate for any given patient. [employer] does not assume any responsibility for any aspect of healthcare administered with the aid of information [employer] provides. The information contained herein is not intended to cover all possible uses, directions, precautions, warnings, drug interactions, allergic reactions, or adverse effects. If you have questions about the drugs you are taking, check with your doctor, nurse or pharmacist. Copyright 1604-3649 [employer]. Version: 12.01. Revision Date: 05/17/2017. erythromycin ophthalmic [...] may report side effects to FDA at 5-428-IMX-6292. What other drugs will affect erythromycin ophthalmic? Medicine used in the eyes is not likely to be affected by other drugs you use. But many drugs can interact with each other. Tell each of your healthcare providers about all medicines you use, including prescription and nxrt-qzt-bnxpnoh medicines, vitamins, and herbal products. Where can I get more information? Your pharmacist can provide more information about erythromycin ophthalmic. Remember, keep this and all other medicines out of the reach of children, never share your medicines with others, and use this medication only for the indication prescribed. Every effort has been made to ensure that the information provided by [employer]. ('[employer]') is accurate, up-to-date, and complete, but no guarantee is made to that effect. Drug information contained herein may be time sensitive. [employer] information has been compiled for use by healthcare practitioners and consumers in the [place] and therefore [employer] does not warrant that uses outside of the [place] are appropriate, unless specifically indicated otherwise. [employer]'s drug information does not endorse drugs, diagnose patients or recommend therapy. [employer] drug information is an informational resource designed [...] effective or appropriate for any given patient. [facility] does not assume any responsibility for any aspect of healthcare administered with the aid of information [facility] provides. The information contained herein is not intended to cover all possible uses, directions, precautions, warnings, drug interactions, allergic reactions, or adverse effects. If you have questions about the drugs you are taking, check with your doctor, nurse or pharmacist. Copyright 0778-3643 [facility]. Version: 7.01. Revision Date: 11/07/2017. venlafaxine (CLARA [...] may report side effects to FDA at 4-451-VAS-0815. What other drugs will affect venlafaxine? Using venlafaxine with other drugs that make you drowsy can worsen this effect. Ask your doctor before using opioid medication, a sleeping pill, a muscle relaxer, or medicine for anxiety or seizures. Tell your doctor about all your current medicines. Many drugs can affect venlafaxine, especially: ?? any other antidepressant; ?? cimetidine; ?? tramadol; ?? [place]'s wort, tryptophan (sometimes called L-tryptophan); ?? diet pills, weight loss medicine (such as phentermine); ?? a blood thinner--warfarin, Coumadin, Jantoven; ?? medicine to treat mood disorders, thought disorders, or mental illness--buspirone, lithium, and many others; or ?? migraine headache medicine--sumatriptan, zolmitriptan, and others. This list is not complete and many other drugs may affect venlafaxine. This includes prescription and nsyw-xno-mdqtaix medicines, vitamins, and herbal products. Not all [...] to ensure that the information provided by [employer]. ('[employer]') is accurate, up-to-date, and complete, but no guarantee is made to that effect. Drug information contained herein may be time sensitive. [employer] information has been compiled for use by healthcare practitioners and consumers in the [place] and therefore [employer] does not warrant that uses outside of the [place] are appropriate, unless specifically indicated otherwise. [employer] drug information does not endorse drugs, diagnose patients or recommend therapy. [employer] drug information is an informational resource designed [...] effective or appropriate for any given patient. [employer] does not assume any responsibility for any aspect of healthcare administered with the aid of information [employer] provides. The information contained herein is not intended to cover all possible uses, directions, precautions, warnings, drug interactions, allergic reactions, or adverse effects. If you have questions about the drugs you are taking, check with your doctor, nurse or pharmacist. Copyright 3812-8102 [employer]. Version: 16.02. Revision Date: 08/26/2020. sucralfate (oral) [...] may report side effects to FDA at 4-230-EWJ-6840. What other drugs will affect sucralfate? Other drugs may affect sucralfate, including prescription and adui-mhn-xowjbty medicines, vitamins, and herbal products. Tell your [...] to ensure that the information provided by [employer]. ('[employer]') is accurate, up-to-date, and complete, but no guarantee is made to that effect. Drug information contained herein may be time sensitive. [employer] information has been compiled for use by healthcare practitioners and consumers in the [place] and therefore [employer] does not warrant that uses outside of the [place] are appropriate, unless specifically indicated otherwise. [employer] drug information does not endorse drugs, diagnose patients or recommend therapy. [employer] drug information is an informational resource designed [...] effective or appropriate for any given patient. [facility] ([employer]) does not assume any responsibility for any aspect of healthcare administered with the aid of information [employer] provides. The information contained herein is not intended to cover all possible uses, directions, precautions, warnings, drug interactions, allergic reactions, or adverse effects. If you have questions about the drugs you are taking, check with your doctor, nurse or pharmacist. Copyright 4325-3021 [facility] [employer]. Version: 12.10. Revision Date: 05/13/2020. megestrol (mirian [...] may report side effects to FDA at 6-657-KBI-3727. What other drugs will affect megestrol? Tell your doctor about all your other medicines, especially: ?? a blood thinner--warfarin, Coumadin, Jantoven. This list is not complete. Other drugs may affect megestrol, including prescription and kncq-cjt-txstnfi medicines, vitamins, and herbal products. Not all [...] to ensure that the information provided by [employer]. ('Multum') is accurate, up-to-date, and complete, but no guarantee is made to that effect. Drug information contained herein may be time sensitive. [employer] information has been compiled for use by healthcare practitioners and consumers in the [place] and therefore [employer] does not warrant that uses outside of the [place] are appropriate, unless specifically indicated otherwise. [employer]'s drug information does not endorse drugs, diagnose patients or recommend therapy. [employer] drug information is an informational resource designed [...] effective or appropriate for any given patient. [employer] does not assume any responsibility for any aspect of healthcare administered with the aid of information [employer] provides. The information contained herein is not intended to cover all possible uses, directions, precautions, warnings, drug interactions, allergic reactions, or adverse effects. If you have questions about the drugs you are taking, check with your doctor, nurse or pharmacist. Copyright 3603-1779 [employer]. Version: 7.01. Revision Date: 11/08/2018. Emergency Awareness [...] Assistance with quitting is available by contacting 2-903-JBJEMiNameNOW. This is a free resource providing counseling, [...] range between ( 0.0 and 7.0 ) Sullivan #: 0.64 K/uL -- Normal range between ( 0.16 and 1.00 ) Eos #: 0.23 x10(3)/uL -- Normal range between ( 0.00 and 0.80 ) Sullivan %: 11.7 % -- Normal range between [...] Abnormal Macrocytosis: 1+ ANC #: 3 K/uL Sullivan Percent Man: 10 % -- Normal range [...] ) Urine Bilirubin Dipstick: Negative Urine Specific [place]: 1.014 -- Normal range between ( 1.005 [...] was given the opportunity to ask questions. Patient/Filter Tender Name: Patient/Filter Tender Signature: Relationship to Patient: Clinician/Hospital Filter Tender Signature: Date: documented in this encounter Plan of Treatment Upcoming Encounters Date Type Department Care Team (Late st Contact Info) Description 05/25/2025 10:45 AM EDT Office Visit [place] [facility] - [address] [facility] [address] [address] Jalen Enciso MD [address] [address] documented as of this encounter Visit Diagnoses Not on filedocumented in this encounter Care Teams Loss Prevention Operations Manager Relationship Specialty Start Date End Date MendyKaylene dunn MD [address] [place] [address] PCP - General General Internal Medicine 01/27/22 Farooq Marcus MD [address] [place] [address] PCP - General Family Medicine 02/27/22 documented as of this encounter
--- OUTSIDE RECORDS SUMMARY | 2024-12-22 08:45 | XMS_ITS | Encounter Summary ---
Author Organization [employer] ([place], [place], [place], [place]) Address [address] [place] [address] Care Team Providers Care Car Coupler Name Role Phone Kaylene Brooke MD Primary Care Provider [phone] Farooq Marcus MD Primary Care Provider [phone] Encounter Details Date Type Department Care Team (Late st Contact Info) Description 10/10/2020 Transcribed Document [facility] [place] Family Medicine [address] [place] [address] ProviderRayray MD [address] [place] [address] Social History Tobacco Use Types Packs/Day Years [...] list: Medical Anxiety disorder / SNOMED CT 903626268 / Confirmed At risk for sleep apnea / IMO 00980584 / Confirmed Chest pain with high risk for cardiac etiology / SNOMED CT 38915569 / Confirmed Hyperlipidemia / SNOMED CT 90649317 / Confirmed Leg neuralgia / SNOMED CT 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 Dr Enciso to return tomorrow and roller picker coverage. Mr Robertson voiced understanding and agreement with the above. Electronically signed by Nidia, [facility] Conversion Fiction And Nonfiction Writer Prose Cerner at 06/29/2022 2:27 PM CDT documented in this encounter Plan of Treatment Upcoming Encounters Date Type Department Care Team (Late st Contact Info) Description 05/25/2025 10:45 AM EDT Office Visit [facility] - [address] [place] [address] Jalen Enciso MD [address] [facility] [address] [place] [address] documented as of this encounter Visit Diagnoses Not on filedocumented in this encounter Care Teams Car Coupler Relationship Specialty Start Date End Date Kaylene Brooke MD [address] [place] [address] PCP - General General Internal Medicine 01/27/22 Farooq Marcus MD [address] [place] [address] PCP - General Family Medicine 02/27/22 documented as of this encounter
--- OUTSIDE RECORDS SUMMARY | 2024-12-22 08:45 | XMS_ITS | Encounter Summary ---
Author Organization [employer] ([place], [place], [place], [place]) Address [address] [place] [address] Care Team Providers Care Wire Inspector Name Role Phone Kaylene Brooke MD Primary Care Provider [phone] Farooq Marcus MD Primary Care Provider [phone] Encounter Details Date Type Department Care Team (Late st Contact Info) Description 09/28/2020 Transcribed Document [facility] [place] Family [place] [address] ProviderRayray MD [address] [place] [address] Social History Tobacco Use Types [...] San MD - 09/28/2020 5:10 PM CDT [facility] [place] [id number] DOYLE DEL ANGEL :1935 Visit Time:09/22/2020 Your Visit Summary Your Care Team Admitting Physician - CRISTINA LUNDBERG, Attending Physician - CRISTINA LUNDBERG, Primary Care Physician - MAZIN SHERIDAN [facility] Referring Physician - Jeannine, NOT LISTED Your [...] weeks Comments oncology follow up Where: [address] [facility] [address] [place] [address]- Follow Up with MAZIN SHERIDAN MD-FAM When Within 5 to 7 days Comments PCP follow up Where: [address] [place] [address]- Medications What How Much When Instructions Next Dose clopidogrel (clopidogrel 75 mg oral tablet) 1 Tablet(s) Oral Every Day Duration: 30 Day(s) Pickup at [facility] famotidine (Pepcid 20 mg oral tablet) 1 Tablet(s) Oral Every Day Duration: 30 Day(s) Refills: 1 Pickup at [facility] aspirin 81 Milligram(s) Oral Every Day LORazepam 1 Milligram(s) Oral Three Times A Day multivitamin 1 Tablet(s) Oral Every Day Pharmacy Information [facility]: [id number] [facility] [address] [place], [place] [id number] [phone] Take your medications faithfully. Do NOT skip [...] caused your condition. General instructions ??? Take fcqf-uzl-cnqxlbp and prescription medicines only as told by your health care provider. ??? Do not drive or use heavy machinery while taking prescription pain medicine. ??? Ask your health care provider if the medicine prescribed to you can cause constipation. You may need to take steps to prevent or treat constipation, such as: ? Take an dubt-ykp-zglzvix or prescription medicine for constipation. ? Eat [...] provider. Document Revised: 12/16/2018 Document Reviewed: 09/02/2018 its learning Patient Education ?? 2020 [employer] learning [employer] Emergency Awareness and Preventative Care STROKE [...] Assistance with quitting is available by contacting 3-912-YVWG-NOW. This is a free resource providing counseling, [...] and 14.9 ) ANC #: 4 K/uL [place] Percent Man: 14 % -- Normal range [...] 0 and 1 ) 09/26/2020 6:05 AM [place] Percent Man: 1 % -- Normal range between ( 0 and 1 ) 09/24/2020 5:26 AM Eos %: 1.4 % -- Normal range between ( 0.0 and 7.0 ) [place] #: 0.32 K/uL -- Normal range between ( 0.16 and 1.00 ) Eos #: 0.09 x10(3)/uL -- Normal range between ( 0.00 and 0.80 ) [place] %: 4.9 % -- Normal range between [...] ) Urine Bilirubin Dipstick: Small Urine Specific [place]: 1.016 -- Normal range between ( 1.005 [...] was given the opportunity to ask questions. Patient/Flower Machine Operator Name: Patient/Flower Machine Operator Signature: Relationship to Patient: Clinician/Hospital Flower Machine Operator Signature: Date: documented in this encounter Plan of Treatment Upcoming Encounters Date Type Department Care Team (Late st Contact Info) Description 05/25/2025 10:45 AM EDT Office Visit [facility] - [address] [facility] [address] [place] [address] Jalen Enciso MD [address] [place] [address] [place] [address] documented as of this encounter Visit Diagnoses Not on filedocumented in this encounter Care Teams Wire Inspector Relationship Specialty Start Date End Date Kaylene Brooke MD [address] [place] [address] PCP - General General Internal Medicine 01/27/22 Farooq Marcus MD [address] [place] [address] PCP - General Family Medicine 02/27/22 documented as of this encounter
--- OUTSIDE RECORDS SUMMARY | 2024-12-22 08:45 | XMS_ITS | Encounter Summary ---
Author Organization [employer] ([place], [place], [place], [place]) Address [address] [place] [address] Care Team Providers Care Rn Document Improvement Specialist Name Role Phone Kaylene Brooke MD Primary Care Provider [phone] Farooq Marcus MD Primary Care Provider Encounter Details Date Type Department Care Team (Late st Contact Info) Description 09/28/2020 Transcribed Document [facility] [place] [facility] [address] ProviderRayray MD [address] [place], [place] [address] Social History Tobacco Use Types Packs/Day Years [...] On: 09/28/2020 15:29 EDT by ELIZABETH LAMBERT, RN-Milk Route DelivererBooster Plant Operator Progress Note Discharge Arrangements : Patient Post-Acute Information Patient Name: DOYLE DEL ANGEL Gender: Male : [birth year] Age: 84 Years No Post-Acute Placement(s) Listed No Post-Acute Service(s) Listed No Curaspan Referral(s) Listed Is the Patient Meeting Medical Necessity : Yes Did you Attend Multidisciplinary Rounds? : Yes ELIZABETH LAMBERT, RN-Milk Route Deliverer - 09/28/2020 15:29 EDT Narrative Progress Note Narrative Progress Note : rrs mod boost 3 6/5 day s cm spoke to daughter and patient . cm arranged for [facility] and walker from [facility] . choice /im needed . family will transport at discharge [facility] dcp: home hh Historical Progress Note : rrs mod boost 3 5/5 day s cm spoke to daughter and patient . cm arranged for [facility] hh and walker from [facility] . choice /im needed . family will transport at discharge [facility] dcp: home hh ELIZABETH LAMBERT, RN-Milk Route Deliverer - 09/27/20 15:38:46 rrs mod plans pending -[facility] previous charting :DCP: patient states he plans on going home with spouse, who will transport, therapy recommends home health and rolling walker at discharge and patient agrees to this if MD feels appropriate. CM will continue to follow. ELIZABETH LAMBERT, RN-Milk Route Deliverer - 09/24/20 16:39:43 ELIZABETH LAMBERT, RN-Milk Route Deliverer - 09/28/2020 15:29 EDT documented in this encounter Plan of Treatment Upcoming Encounters Date Type Department Care Team (Late st Contact Info) Description 05/25/2025 10:45 AM EDT Office Visit [facility] - [place] [address] [facility] [address] [place] [address] Jalen Enciso MD [address] [place] [address] documented as of this encounter Visit Diagnoses Not on filedocumented in this encounter Care Teams Rn Document Improvement Specialist Relationship Specialty Start Date End Date Kaylene Brooke MD [address] [place] [address] PCP - General General Internal Medicine 01/27/22 Farooq Marcus MD [address] [place], [place] [address] PCP - General Family Medicine 02/27/22 documented as of this encounter
--- OUTSIDE RECORDS SUMMARY | 2024-12-22 08:45 | XMS_ITS | Encounter Summary ---
Author Organization [employer] ([place], [place], [place], [place]) Address [address] [place] [address] Care Team Providers Care Clinical Cytogeneticist Name Role Phone Kaylene Brooke MD Primary Care Provider [phone] Farooq Marcus MD Primary Care Provider [phone] Encounter Details Date Type Department Care Team (Late st Contact Info) Description 09/28/2020 Transcribed Document [facility] [place] Family Medicine [address] [place] [address] ProviderRayray MD [address] [place], [place] [address] Social History Tobacco Use Types Packs/Day Years [...] chemo earlier this month. Pt presented to [facility] 09/22 for abd pain with N/V. GI consulted, LFTs/pancreatitis likely due to medication/dehydration, LFTs improving. Visited pt, not in room at time of visit. Pt stated he had a good appetite prior to hospitalization, ate 2 meals/day + snacks. No issues chewing/swallowing reported. Pt stated UBW 185#, last known in May 2020 before chemo started, stated CBW 165# (but admit ht=736#). RD to reorder wt to confirm. NFPE [...] Esophageal cancer hx of chemo, CAD, HLD, RI, cholecystectomy Meds: aspirin, MVI, immodium, senna, PPI, [...] BMI: 23.7 IBW/%IBW: 80.9kg/ 98.2% IBW Katey Warern Dietitian - 09/28/2020 14:00 EDT Nutrition Diagnoses [...] Description 05/25/2025 10:45 AM EDT Office Visit [facility] - [address] [place] [address] Jalen Enciso MD [address] [place] [address] [place] [address] documented as of this encounter Visit Diagnoses Not on filedocumented in this encounter Care Teams Clinical Cytogeneticist Relationship Specialty Start Date End Date Kaylene Brooke MD [address] [place] [address] PCP - General General Internal Medicine 01/27/22 Farooq Marcus MD [address] [place], [place] [address] PCP - General Family Medicine 02/27/22 documented as of this encounter
--- OUTSIDE RECORDS SUMMARY | 2024-12-22 08:45 | XMS_ITS | Encounter Summary ---
Author Organization [employer] ([place], [place], [place], [place]) Address [address] [place] [address] Care Team Providers Care Welder Shielded Metal Arc Name Role Phone Kaylene Brooke MD Primary Care Provider [phone] Farooq Marcus MD Primary Care Provider [phone] Encounter Details Date Type Department Care Team (Late st Contact Info) Description 10/01/2020 Transcribed Document [facility] [address] ProviderRayray MD [address] [place] [address] Social History Tobacco Use Types Packs/Day Years [...] 10/01/2020 14:30 EDT by KEISHA RIVERA Mkt Mill Washer-Utilization Mgt Final Discharge Planning Discharge Arrangements : Patient Post-Acute Information Patient Name: DOYLE DEL ANGEL Gender: Male : [birth year] Age: 84 Years No Post-Acute Placement(s) Listed No Post-Acute Service(s) Listed No Curaspan Referral(s) Listed Discharge To Care Management : Home Health Services (Related/SOC within 3 days)-06 KEISHA RIVERA Mkt Mill Washer-Utilization Mgt - 10/01/2020 14:30 EDT documented in this encounter Plan of Treatment Upcoming Encounters Date Type Department Care Team (Late st Contact Info) Description 05/25/2025 10:45 AM EDT Office Visit [facility] - [place] [address] [place] [address] Jalen Enciso MD [address] [place] [address] documented as of this encounter Visit Diagnoses Not on filedocumented in this encounter Care Teams Welder Shielded Metal Arc Relationship Specialty Start Date End Date Kaylene Brooke MD [address] [place] [address] PCP - General General Internal Medicine 01/27/22 Farooq Marcus MD [address] [place] [address] PCP - General Family Medicine 02/27/22 documented as of this encounter
--- OUTSIDE RECORDS SUMMARY | 2024-12-22 08:45 | XMS_ITS | Encounter Summary ---
Author Organization [employer] ([place], [place], [place], [place]) Address [address] [place] [address] Care Team Providers Care Screen Writer Name Role Phone Kaylene Brooke MD Primary Care Provider [phone] Farooq Marcus MD Primary Care Provider [phone] Encounter Details Date Type Department Care Team (Late st Contact Info) Description 10/09/[address] [facility] [place] Family Medicine [facility] [place] [address] ProviderRayray MD [address] [place] [address] Social History Tobacco Use Types Packs/Day Years [...] other Legal Guardian : No Support Person/Patient Meat Molder : Yes Support Person/Pt Rep Name : Brandee Del Angel - Contact Password : Cat Support Person/Pt Rep Contact Information : [phone] Want Family/Rep/Phys Notified of Admit : No [...] From : Patient, Spouse Primary Language : Belgian Communication Barrier : None Loop Sewer Needed : No Zaida Cortez RN - [...] Level : 46 or > High Risk Wingate Fall Interventions : Adequate lighting, Assistive devices [...] Source : Stated Height Entry Format : Ida Height, Feet : 6 ft(Converted to: 183 cm, 72 Inch) Height, Inches : 0 Inch(Converted to: 0 ft 0 Inch, 0.00 cm) Clinical Height : 182.88 cm Weight Source : Bed scale Weight Entry Format : Ida Clinical Dosing Weight : 68.18 kg Weight, Pounds : 150 lb Body Surface Area (BSA) : 1.89 m2 Body Mass Index : 20.4 kg/m2 Dows Body Weight : 77 kg Zaida Cortez [...] data available. Pneumonia Immunization Received : Yes aZida Cortez RN - 10/09/2020 18:47 EDT Order [...] Zaida Cortez RN - 10/09/2020 18:47 EDT [place] Suicide Severity Rating Scale (C-SSRS) CSSRS Past [...] Description 05/25/2025 10:45 AM EDT Office Visit [facility] - [address] [place] [address] Jalen Enciso MD [address] [place] [address] [place] [address] documented as of this encounter Visit Diagnoses Not on filedocumented in this encounter Care Teams Screen Writer Relationship Specialty Start Date End Date Kaylene Brooke MD [address] [place] [address] PCP - General General Internal Medicine 01/27/22 Farooq Marcus MD [address] [facility] [place] [address] PCP - General Family Medicine 02/27/22 documented as of this encounter
--- OUTSIDE RECORDS SUMMARY | 2024-12-22 08:45 | XMS_ITS | Encounter Summary ---
Author Organization [employer] ([place], [place], [place], [place]) Address [address] [place] [address] Care Team Providers Care Manager Wellness Name Role Phone Kaylene Brooke MD Primary Care Provider [phone] Farooq Marcus MD Primary Care Provider [phone] Encounter Details Date Type Department Care Team (Late st Contact Info) Description 10/13/2020 Transcribed Document [facility] [place] Family Medicine [facility] [address] ProviderRayray MD [address] [place] [address] Social History Tobacco Use Types Packs/Day Years [...] Description 05/25/2025 10:45 AM EDT Office Visit [facility] - [address] [place] [address] Jalen Enciso MD [address] [place] [address] documented as of this encounter Visit Diagnoses Not on filedocumented in this encounter Care Teams Manager Wellness Relationship Specialty Start Date End Date MendyKaylene dunn MD [address] [place] [address] PCP - General General Internal Medicine 01/27/22 Farooq Marcus MD [address] [facility] [place] [address] PCP - General Family Medicine 02/27/22 documented as of this encounter
--- OUTSIDE RECORDS SUMMARY | 2024-12-22 08:45 | XMS_ITS | Encounter Summary ---
Author Organization [employer] ([place], [place], [place], [place]) Address [address] [place] [address] Care Team Providers Care Summer Camp Counselor Name Role Phone Kaylene Brooke MD Primary Care Provider [phone] Farooq Marcus MD Primary Care Provider [phone] Encounter Details Date Type Department Care Team (Late Contact Info) Description 09/28/2020 Transcribed Document [facility] [place] Family [place] [address] ProviderRayray MD [address] [place], [place] [address] Social History Tobacco Use Types Packs/Day Years [...] 09/28/2020 3:18 EDT Electronically signed by Nidia [facility] Conversion Bolt Loader Cerner at 06/29/2022 2:32 PM CDT documented in this encounter Plan of Treatment Upcoming Encounters Date Type Department Care Team (Late st Contact Info) Description 05/25/2025 10:45 AM EDT Office Visit [facility] - [address] [place] [address] aJlen Enciso MD [address] [place] [address] [place] [address] documented as of this encounter Visit Diagnoses Not on filedocumented in this encounter Care Teams Summer Camp Counselor Relationship Specialty Start Date End Date Kaylene Brooke MD [address] [place] [address] PCP - General General Internal Medicine 01/27/22 Farooq Marcus MD [address] [place] [address] PCP - General Family Medicine 02/27/22 documented as of this encounter
--- OUTSIDE RECORDS SUMMARY | 2024-12-22 08:45 | XMS_ITS | Encounter Summary ---
Author Organization [employer] ([place], [place], [place], [place]) Address [address] [place] [address] Care Team Providers Care Space Sciences Director Name Role Phone Kaylene Brooke MD Primary Care Provider [phone] Farooq Marcus MD Primary Care Provider [phone] Encounter Details Date Type Department Care Team (Late st Contact Info) Description 09/28/2020 Transcribed Document [facility] [place] [facility] [place] [address] ProviderRayray MD [address] [place] [address] Social History Tobacco Use Types Packs/Day Years [...] On: 09/28/2020 17:09 EDT by CASEY Romero, planning rn Documentation Patient Disposition, General : Discharge, Elopement Discharge To : Home with ambulatory/outpatient follow-up Mode Of Departure, General Discharge : Private vehicle IV Discontinued : Yes Elopement Launch : Yes CASEY Romero RN - 09/28/2020 17:09 EDT Electronically signed by Nidia [facility] Conversion Educational Adviser Cerner at 06/29/2022 2:40 PM CDT documented in this encounter Plan of Treatment Upcoming Encounters Date Type Department Care Team (Late st Contact Info) Description 05/25/2025 10:45 AM EDT Office Visit [facility] - [address] [place] [address] Jalen Enciso MD [address] [place] [address] documented as of this encounter Visit Diagnoses Not on filedocumented in this encounter Care Teams Space Sciences Director Relationship Specialty Start Date End Date MendyKaylene dunn MD [address] [place] [address] PCP - General General Internal Medicine 01/27/22 Farooq Marcus MD [address] [place] [address] PCP - General Family Medicine 02/27/22 documented as of this encounter
--- OUTSIDE RECORDS SUMMARY | 2024-12-22 08:45 | XMS_ITS | Encounter Summary ---
Author Organization [employer] ([place], [place], [place], [place]) Address [address] [place] [address] Care Team Providers Care Supervisor Enrobing Name Role Phone Kaylene Brooke MD Primary Care Provider [phone] Farooq Marcus MD Primary Care Provider [phone] Encounter Details Date Type Department Care Team (Late st Contact Info) Description 10/09/2020 Transcribed Document [facility] [place] [address] [place] [address] ProviderRayray MD [address] [place] [address] Social History Tobacco Use Types Packs/Day Years [...] : Low risk (0) Broset Interventions : Golden precautions for safety used PRISCILLA JUAN RN - 10/09/2020 13:56 EDT documented in this encounter Plan of Treatment Upcoming Encounters Date Type Department Care Team (Late st Contact Info) Description 05/25/2025 10:45 AM EDT Office Visit [facility] - [address] [place] [address] Jalen Enciso MD [address] [place] [address] documented as of this encounter Visit Diagnoses Not on filedocumented in this encounter Care Teams Supervisor Enrobing Relationship Specialty Start Date End Date MendyKaylene dunn MD [address] [place] [address] PCP - General General Internal Medicine 01/27/22 Farooq Marcus MD [address] [place] [address] PCP - General Family Medicine 02/27/22 documented as of this encounter
--- OUTSIDE RECORDS SUMMARY | 2024-12-22 08:45 | XMS_ITS | Encounter Summary ---
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 [place] [address] PCP - General Family Medicine 02/27/22 documented as of this encounter
--- OUTSIDE RECORDS SUMMARY | 2024-12-22 08:45 | XMS_ITS | Encounter Summary ---
Author Organization [employer] ([place], [place], [place], [place]) Address [address] [place] [address] Care Team Providers Care School Photographs Detailer Name Role Phone Kaylene Brooke MD Primary Care Provider [phone] Farooq Marcus MD Primary Care Provider [phone] Encounter Details Date Type Department Care Team (Late st Contact Info) Description 10/09/2020 Transcribed Document [facility] [place] [address] ProviderRayray MD [address] [place] [address] Social History Tobacco Use Types Packs/Day Years [...] : 3 - Urgent Tracking Group : [facility] ED CHRISTIANO SANTIAGO RN-Resource - 10/09/2020 12:24 [...] 12:29:06 EDT) Problems(Active) Anxiety disorder (SNOMED CT :862789704 ) Name of Problem: Anxiety disorder ; Recorder: ERIKA AKERS APRN-INT; Confirmation: Confirmed ; Classification: Medical ; Code: [id number] ; Contributor System: Linux Voice ; Last Updated: 04/22/2014 0:56 EST ; Life Cycle Date: 04/22/2014 ; Life Cycle Status: Active ; Responsible Provider: ERIKA AKERS APRN-INT; Vocabulary: SNOMED CT At risk for sleep apnea (IMO :23851297 ) Name of Problem: At risk for sleep apnea ; Recorder: SYSTEM, SYSTEM; Confirmation: Confirmed ; Classification: Medical ; Code: [id number] ; Last Updated: 09/08/2020 8:44 EDT ; Life Cycle Date: 09/08/2020 ; Life Cycle Status: Active ; Vocabulary: IMO Chest pain with high risk for cardiac etiology (SNOMED CT :64657728 ) Name of Problem: Chest pain with high risk for cardiac etiology ; Recorder: ERIKA AKERS APRN-INT; Confirmation: Confirmed ; Classification: Medical ; Code: 38011604 ; Contributor System: NIMBOXXChart ; Last Updated: 04/22/2014 0:56 EST ; Life Cycle Status: Active ; Responsible Provider: ERIKA AKERS APRN-INT; Vocabulary: SNOMED CT Esophagus cancer (SNOMED CT :557599352 ) Name of Problem: Esophagus cancer ; Recorder: JUVE GILBERT Rn-Clinical Coordinator I; Confirmation: Confirmed ; Classification: Patient Stated ; Code: [id number] ; Contributor System: PowerChart ; Last Updated: 09/08/2020 8:36 EDT ; Life Cycle Date: 09/08/2020 ; Life Cycle Status: Active ; Vocabulary: SNOMED CT Hyperlipidemia (SNOMED CT :60237549 ) Name of Problem: Hyperlipidemia ; Recorder: REIKA BOYER MD-EMR; Confirmation: Confirmed ; Classification: Medical ; Code: 96065099 ; Contributor System: PowerChart ; Last Updated: 04/21/2014 20:55 EST ; Life Cycle Date: 04/21/2014 ; Life Cycle Status: Active ; Responsible Provider: ERIKA BOYER MD-EMR; Vocabulary: SNOMED CT Leg neuralgia (SNOMED CT :73769413 ) Name of Problem: Leg neuralgia ; Recorder: ERIKA AKERS APRN-INT; Confirmation: Confirmed ; Classification: Medical ; Code: 86258268 ; Contributor System: PowerChart ; Last Updated: 04/22/2014 0:56 EST ; Life Cycle Date: 04/22/2014 ; Life Cycle Status: Active ; Responsible Provider: ERIKA AKERS APRN-INT; Vocabulary: SNOMED CT Myocardial infarction (SNOMED CT :32751092 ) Name of Problem: Myocardial infarction ; Recorder: JUVE GILBERT Rn-Clinical Coordinator I; Confirmation: Confirmed ; Classification: Patient Stated ; Code: 83807218 ; Contributor System: Linux Voice ; Last Updated: 09/08/2020 8:36 EDT ; Life Cycle Date: 09/08/2020 ; Life Cycle Status: Active ; Vocabulary: SNOMED CT Diagnoses(Active) Vomiting Date: 10/09/2020 ; Diagnosis Type: Reason For Visit ; Confirmation: Complaint of ; Clinical Dx: Vomiting ; Classification: Medical ; Clinical Service: Emergency medicine ; Code: PNED ; Probability: 0 ; Diagnosis Code: [id number] ED Height and Weight Height Source : Stated Height Entry Format : [place] Height, Feet : 6 ft(Converted to: 183 cm, 72 Inch) Height, Inches : 0 Inch(Converted to: 0 ft 0 Inch, 0.00 cm) Clinical Height : 182.88 cm Weight Source, ED : Critical estimated dosing weight Weight Entry Format : [place] Weight, Pounds : 150 lb Clinical Dosing Weight : 68.18 kg Body Surface Area (BSA) : 1.89 m2 Body Mass Index : 20.4 kg/m2 [place] Body Weight (IBW) : 76.59 kg CHRISTIANO SANTIAGO RN-Resource - 10/09/2020 12:24 EDT documented in this encounter Plan of Treatment Upcoming Encounters Date Type Department Care Team (Late st Contact Info) Description 05/25/2025 10:45 AM EDT Office Visit [facility] - [place] [address] [facility] [address] [place] [address] Jalen Enciso MD [address] [place] [address] documented as of this encounter Visit Diagnoses Not on filedocumented in this encounter Care Teams School Photographs Detailer Relationship Specialty Start Date End Date Kaylene Brooke MD [address] [place] [address] PCP - General General Internal Medicine 01/27/22 Farooq Marucs MD [address] [place] [address] PCP - General Family Medicine 02/27/22 documented as of this encounter
--- OUTSIDE RECORDS SUMMARY | 2024-12-22 08:45 | XMS_ITS | Encounter Summary ---
Author Organization [employer] ([place], [place], [place], [place]) Address [address] [place] [address] Care Team Providers Care Knit Tubing Dyer Name Role Phone Farooq Marcus MD Primary Care Provider [phone] Reason for Visit * Reason Onset Date Comments medical records request 12/09/2024 Encounter Details Date Type Department Care Team (Late st Contact Info) Description 12/09/2024 Telephone [facility] - [place] [id number] [facility] [address] [place] [address] Jalen Enciso MD [address] [place] [address] medical records request Social History [...] Date Scotty rded Speak language other than Montserratian at home Not on file 03/22/2023 Want [...] 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 [phone] RN returned call and Neema requested last office note from Dr Enciso as pt saw Dr Juarez today. fax#[phone] ATTN NEEMA Last 4 office notes faxed to # provided. Neema was given # to medical records if additional records are needed. documented in this encounter Plan of Treatment Upcoming Encounters Date Type Department Care Team (Late st Contact Info) Description 05/25/2025 10:45 AM EDT Office Visit [facility] - [place] [address] [facility] [address] [place] [address] Jalen Enciso MD [address] [place] [address] documented as of this encounter Visit Diagnoses Not on filedocumented in this encounter Care Teams Knit Tubing Dyer Relationship Specialty Start Date End Date Farooq Marcus MD [address] [place] [address] PCP - General Family Medicine 02/27/22 documented as of this encounter
--- OUTSIDE RECORDS SUMMARY | 2024-12-22 08:46 | XMS_ITS | Encounter Summary ---
Author Organization [employer] ([place], [place], [place], [place]) Address [address] [place] [address] Care Team Providers Care Custodian Manager Name Role Phone Kaylene Brooke MD Primary Care Provider [phone] Farooq Marcus MD Primary Care Provider [phone] Encounter Details Date Type Department Care Team (Late st Contact Info) Description 09/22/2020 Transcribed Document [facility] [place] [address] [place] [address] ProviderRayray MD [address] [place] [address] Social History Tobacco Use Types Packs/Day Years [...] 05/25/2025 10:45 AM EDT Office Visit [facility] - [place] [address] [place] [address] Jalen Enciso MD [address] [place] [address] documented as of this encounter Visit Diagnoses Not on filedocumented in this encounter Care Teams Custodian Manager Relationship Specialty Start Date End Date MendyKaylene dunn MD [address] [place] [address] PCP - General General Internal Medicine 01/27/22 Farooq Marcus MD [address] [place] [address] PCP - General Family Medicine 02/27/22 documented as of this encounter
--- OUTSIDE RECORDS SUMMARY | 2024-12-22 08:46 | XMS_ITS | Encounter Summary ---
Author Organization [employer] ([place], [place], [place], [place]) Address [address] [place] [address] Care Team Providers Care Drywall Finishing Foreman Name Role Phone Kaylene Brooke MD Primary Care Provider [phone] Farooq Marcus MD Primary Care Provider [phone] Encounter Details Date Type Department Care Team (Late st Contact Info) Description 10/13/2020 Transcribed Document [facility] [place] [address] [place] [address] ProviderRayray MD [address] [place] [address] Social History Tobacco Use Types [...] San MD - 10/13/2020 11:59 AM CDT [facility] [address] [place] [id number] [place] :1935 Visit Time:10/10/2020 Your Visit Summary Your Care Team Admitting Physician - KEISHA TUCKER MD Attending Physician - KEISHA TUCKER MD Primary Care Physician - [facility] Referring Physician - SHAINA, NOT LISTED [...] Bring discharge instructions with you. Where: [address] [address]- Follow Up with MAZIN [facility]AN [facility] When 10/20/2020 10:30 AM EDT Comments PCP follow up. Appointment has been made. Bring discharge instructions with you. Where: [address] [place] [address]- Medications What How Much When Instructions Next Dose erythromycin ophthalmic (erythromycin 0.5% ophthalmic ointment) 1 Application(s) Eye Left Two Times A Day Duration: 5 Day(s) Pickup at [facility] megestrol (Megace 40 mg/ mL oral suspension) 20 Milliliter(s) Oral Every Day Duration: 30 Day(s) Pickup at [facility] metoclopramide (Reglan 10 mg oral tablet) 1 Tablet(s) Oral Before Meals and at Bedtime Duration: 14 Day(s) Pickup at [facility] sucralfate (Carafate 1 g/ 10 mL oral suspension) 10 Milliliter(s) Oral Before Meals Duration: 10 Day(s) Pickup at [facility] LORazepam (Ativan 1 mg oral tablet) 1 Tablet(s) Oral Three Times A Day as needed for as needed for anxiety clopidogrel (Plavix 75 mg oral tablet) 1 Tablet(s) Oral Every Day venlafaxine (Effexor XR 150 mg oral capsule, extended release) 1 Capsule(s) Oral Every Day NEW DOSE Pickup at [facility] aspirin 81 Milligram(s) Oral Every Day multivitamin 1 Tablet(s) Oral Every Day ondansetron (Zofran 8 mg oral tablet) 1 Tablet(s) Oral Three Times A Day as needed for Nausea pantoprazole (pantoprazole 40 mg oral delayed release tablet) 1 Tablet(s) Oral Every Day Pharmacy Information [facility]: [address] [facility] [address] [place] [phone] Take your medications faithfully. Do NOT skip [...] these instructions at home: Medicines ??? Take ikep-kvu-jgqqanj and prescription medicines only as told by [...] provider. Document Revised: 07/16/2018 Document Reviewed: 07/16/2018 [employer] Patient Education ?? 2020 [employer] metoclopramide (oral/injection) (MET oh TRAN martinez) [...] may report side effects to FDA at 4-642-RUE-3787. What other drugs will affect metoclopramide? Using [...] may affect metoclopramide. This includes prescription and lukb-kny-ijbnord medicines, vitamins, and herbal products. Not all [...] to ensure that the information provided by [employer]. ('[employer]') is accurate, up-to-date, and complete, but no guarantee is made to that effect. Drug information contained herein may be time sensitive. [employer] information has been compiled for use by healthcare practitioners and consumers in the [place] and therefore [employer] does not warrant that uses outside of the [place] are appropriate, unless specifically indicated otherwise. [employer] drug information does not endorse drugs, diagnose patients or recommend therapy. [employer] drug information is an informational resource designed [...] effective or appropriate for any given patient. [employer] does not assume any responsibility for any aspect of healthcare administered with the aid of information [employer] provides. The information contained herein is not intended to cover all possible uses, directions, precautions, warnings, drug interactions, allergic reactions, or adverse effects. If you have questions about the drugs you are taking, check with your doctor, nurse or pharmacist. Copyright 8804-9333 [employer]. Version: 12.. Revision Date: 05/17/2017. erythromycin ophthalmic [...] may report side effects to FDA at 9-227-ZAC-2985. What other drugs will affect erythromycin ophthalmic? Medicine used in the eyes is not likely to be affected by other drugs you use. But many drugs can interact with each other. Tell each of your healthcare providers about all medicines you use, including prescription and ckgh-gge-ffhpavn medicines, vitamins, and herbal products. Where can I get more information? Your pharmacist can provide more information about erythromycin ophthalmic. Remember, keep this and all other medicines out of the reach of children, never share your medicines with others, and use this medication only for the indication prescribed. Every effort has been made to ensure that the information provided by [employer]. ('[employer]') is accurate, up-to-date, and complete, but no guarantee is made to that effect. Drug information contained herein may be time sensitive. [employer] information has been compiled for use by healthcare practitioners and consumers in the [place] and therefore [employer] does not warrant that uses outside of the [place] are appropriate, unless specifically indicated otherwise. [employer]'s drug information does not endorse drugs, diagnose patients or recommend therapy. [employer] drug information is an informational resource designed [...] effective or appropriate for any given patient. [facility] does not assume any responsibility for any aspect of healthcare administered with the aid of information [facility] provides. The information contained herein is not intended to cover all possible uses, directions, precautions, warnings, drug interactions, allergic reactions, or adverse effects. If you have questions about the drugs you are taking, check with your doctor, nurse or pharmacist. Copyright 9940-6597 [facility] [place]. Version: 7.01. Revision Date: 11/07/2017. venlafaxine (CLARA [...] may report side effects to FDA at 5-942-ZOI-2423. What other drugs will affect venlafaxine? Using [...] may affect venlafaxine. This includes prescription and yftn-kqx-nqzafzx medicines, vitamins, and herbal products. Not all [...] to ensure that the information provided by [employer]. ('[employer]') is accurate, up-to-date, and complete, but no guarantee is made to that effect. Drug information contained herein may be time sensitive. [employer] information has been compiled for use by healthcare practitioners and consumers in the [place] and therefore [employer] does not warrant that uses outside of the [place] are appropriate, unless specifically indicated otherwise. [employer]'s drug information does not endorse drugs, diagnose patients or recommend therapy. [employer] drug information is an informational resource designed [...] effective or appropriate for any given patient. [employer] does not assume any responsibility for any aspect of healthcare administered with the aid of information [employer] provides. The information contained herein is not intended to cover all possible uses, directions, precautions, warnings, drug interactions, allergic reactions, or adverse effects. If you have questions about the drugs you are taking, check with your doctor, nurse or pharmacist. Copyright 2817-2913 [employer]. Version: 16.02. Revision Date: 08/26/2020. sucralfate (oral) [...] may report side effects to FDA at 5-184-RTO-7481. What other drugs will affect sucralfate? Other drugs may affect sucralfate, including prescription and cyft-eza-zxyhbiv medicines, vitamins, and herbal products. Tell your [...] to ensure that the information provided by [employer]. ('[employer]') is accurate, up-to-date, and complete, but no guarantee is made to that effect. Drug information contained herein may be time sensitive. [employer] information has been compiled for use by healthcare practitioners and consumers in the [place] and therefore [employer] does not warrant that uses outside of the [place] are appropriate, unless specifically indicated otherwise. [employer] drug information does not endorse drugs, diagnose patients or recommend therapy. [employer] drug information is an informational resource designed [...] effective or appropriate for any given patient. [facility] does not assume any responsibility for any aspect of healthcare administered with the aid of information [employer] provides. The information contained herein is not intended to cover all possible uses, directions, precautions, warnings, drug interactions, allergic reactions, or adverse effects. If you have questions about the drugs you are taking, check with your doctor, nurse or pharmacist. Copyright 0613-5441 [facility] [employer]. Version: 12.10. Revision Date: 05/13/2020. megestrol (mirian [...] may report side effects to FDA at 4-552-SXP-2757. What other drugs will affect megestrol? Tell your doctor about all your other medicines, especially: ?? a blood thinner--warfarin, Coumadin, Jantoven. This list is not complete. Other drugs may affect megestrol, including prescription and lnvr-tph-jlaoqmk medicines, vitamins, and herbal products. Not all [...] to ensure that the information provided by [employer]. ('[employer]ayed[employer]') is accurate, up-to-date, and complete, but no guarantee is made to that effect. Drug information contained herein may be time sensitive. [employer] information has been compiled for use by healthcare practitioners and consumers in the [place] and therefore [employer] does not warrant that uses outside of the [place] are appropriate, unless specifically indicated otherwise. [employer] drug information does not endorse drugs, diagnose patients or recommend therapy. [employer] drug information is an informational resource designed [...] effective or appropriate for any given patient. [employer] does not assume any responsibility for any aspect of healthcare administered with the aid of information [employer] provides. The information contained herein is not intended to cover all possible uses, directions, precautions, warnings, drug interactions, allergic reactions, or adverse effects. If you have questions about the drugs you are taking, check with your doctor, nurse or pharmacist. Copyright 2421-1900 [employer]. Version: 7.01. Revision Date: 11/08/2018. Emergency Awareness [...] Assistance with quitting is available by contacting 8-229-CISPKollaboraNOW. This is a free resource providing counseling, support, and referral. Or you may contact your personal physician. [employer] Suicide Prevention Lifeline: The National Suicide Prevention [...] range between ( 0.0 and 7.0 ) Alfalfa #: 0.64 K/uL -- Normal range between ( 0.16 and 1.00 ) Eos #: 0.23 x10(3)/uL -- Normal range between ( 0.00 and 0.80 ) [place] %: 11.7 % -- Normal range between [...] Abnormal Macrocytosis: 1+ ANC #: 3 K/uL [place] Percent Man: 10 % -- Normal range [...] ) Urine Bilirubin Dipstick: Negative Urine Specific [place]: 1.014 -- Normal range between ( 1.005 [...] was given the opportunity to ask questions. Patient/Waste Minimization Technician Name: Patient/Waste Minimization Technician Signature: Relationship to Patient: Clinician/Hospital Waste Minimization Technician Signature: Date: documented in this encounter Plan of Treatment Upcoming Encounters Date Type Department Care Team (Late st Contact Info) Description 05/25/2025 10:45 AM EDT Office Visit [facility] - [place] [facility] [address] [place] [address] Jalen Enciso MD [address] [place] [address] documented as of this encounter Visit Diagnoses Not on filedocumented in this encounter Care Teams Drywall Finishing Foreman Relationship Specialty Start Date End Date MendyKaylene MD [address] [place] [address] PCP - General General Internal Medicine 01/27/22 Farooq Marcus MD [address] [place] [place] [address] PCP - General Family Medicine 02/27/22 documented as of this encounter
--- OUTSIDE RECORDS SUMMARY | 2024-12-22 08:46 | XMS_ITS | Encounter Summary ---
Author Organization [employer] ([place], [place], [place], [place]) Address [address] [place] [address] Care Team Providers Care Material Cutter Name Role Phone Kaylene Brooke MD Primary Care Provider [phone] Farooq Marcus MD Primary Care Provider [phone] Encounter Details Date Type Department Care Team (Late st Contact Info) Description 10/10/[address] [facility] Family Medicine [address] [place] [address] ProviderRayray MD [address] [place] [address] Social History Tobacco Use Types Packs/Day Years [...] Insurance 1 Health Plan: MEDICARE Policy Number: [id number] Authorization Number: Insurance 2 Health Plan: [employer] Medicare Supplement Policy Number: [id number] Authorization Number: Insurance Primary Name : MEDICARE Policy Number: [id number] [employer] Medicare Supplement Policy Number: [id number] Historical Authorization Comments-Primary : No Authorization Comments Found TERESA GUZMÁN, Rn-Utilization Review - 10/10/2020 8:58 EDT Electronically signed by Nidia [facility] Conversion Cook Chief Cerner at 06/29/2022 2:26 PM CDT documented in this encounter Plan of Treatment Upcoming Encounters Date Type Department Care Team (Late st Contact Info) Description 05/25/2025 10:45 AM EDT Office Visit [facility] - [facility] [address] [place] [address] Jalen Enciso MD [address] [place] [address] documented as of this encounter Visit Diagnoses Not on filedocumented in this encounter Care Teams Material Cutter Relationship Specialty Start Date End Date Kaylene Brooke MD [address] [place] [address] PCP - General General Internal Medicine 01/27/22 Farooq Marcus MD [address] [place] [address] PCP - General Family Medicine 02/27/22 documented as of this encounter
--- OUTSIDE RECORDS SUMMARY | 2024-12-22 08:46 | XMS_ITS | Encounter Summary ---
Author Organization [employer] ([place], [place], [place], [place]) Address [address] [place] [address] Care Team Providers Care Political Science Professor Name Role Phone Kaylene Brooke MD Primary Care Provider Farooq Marcus MD Primary Care Provider [phone] Encounter Details Date Type Department Care Team (Late st Contact Info) Description 10/10/2020 Transcribed Document [facility] [place] [facility] [place] [address] [place] [address] ProviderRayray MD [address] [place] [address] Social History Tobacco Use Types Packs/Day Years [...] Verbalizes understanding Oral Care : Verbalizes understanding [place] to bed, light, tv, call device : [...] Description 05/25/2025 10:45 AM EDT Office Visit [facility] - [place] [address] [place] [address] Jalen Enciso MD [address] [facility] [address] [place] [address] documented as of this encounter Visit Diagnoses Not on filedocumented in this encounter Care Teams Political Science Professor Relationship Specialty Start Date End Date Kaylene Brooke MD [address] [place] [address] PCP - General General Internal Medicine 01/27/22 Farooq Marcus MD [address] [facility] [address] [place] [address] PCP - General Family Medicine 02/27/22 documented as of this encounter
--- OUTSIDE RECORDS SUMMARY | 2024-12-22 08:46 | XMS_ITS | Encounter Summary ---
Author Organization [employer] ([place], [place], [place], [place]) Address [address] [place] [address] Care Team Providers Care Wrapper Layer And Examiner Soft Work Name Role Phone Kaylene Brooke MD Primary Care Provider [phone] Farooq Marcus MD Primary Care Provider [phone] Encounter Details Date Type Department Care Team (Late st Contact Info) Description 09/22/2020 Transcribed Document [facility] [place] [facility] [place] [address] ProviderRayray MD [address] [place], [place] [address] Social History Tobacco Use Types Packs/Day Years [...] 05/25/2025 10:45 AM EDT Office Visit [facility] - [place] [address] [place] [address] Jalen Enciso MD [address] [place] [address] documented as of this encounter Visit Diagnoses Not on filedocumented in this encounter Care Teams Wrapper Layer And Examiner Soft Work Relationship Specialty Start Date End Date Kaylene Brooke MD [address] [place] [address] PCP - General General Internal Medicine 01/27/22 Farooq Marcus MD [address] [place] [address] PCP - General Family Medicine 02/27/22 documented as of this encounter
--- OUTSIDE RECORDS SUMMARY | 2024-12-22 08:46 | XMS_ITS | Encounter Summary ---
Author Organization [employer] ([place], [place], [place], [place]) Address [address] [place] [address] Care Team Providers Care Craft Manager Name Role Phone Kaylene Brooke MD Primary Care Provider [phone] Farooq Marcus MD Primary Care Provider [phone] Encounter Details Date Type Department Care Team (Late st Contact Info) Description 10/10/2020 Transcribed Document [facility] [place] [facility] [place] [address] ProviderRayray MD [address] [place] [address] Social History Tobacco Use Types Packs/Day Years [...] 10/10/2020 10:13 EDT Electronically signed by Nidia [facility] Conversion Manager Operations And Procurement Cerner at 06/29/2022 2:21 PM CDT documented in this encounter Plan of Treatment Upcoming Encounters Date Type Department Care Team (Late st Contact Info) Description 05/25/2025 10:45 AM EDT Office Visit [facility] [facility] - [facility] [address] [place] [address] Jalen Enciso MD [address] [place] [address] documented as of this encounter Visit Diagnoses Not on filedocumented in this encounter Care Teams Craft Manager Relationship Specialty Start Date End Date Kaylene Brooke MD [address] [place] [address] PCP - General General Internal Medicine 01/27/22 Farooq Marcus MD [address] [place] [address] PCP - General Family Medicine 02/27/22 documented as of this encounter
--- OUTSIDE RECORDS SUMMARY | 2024-12-22 08:46 | XMS_ITS | Encounter Summary ---
Author Organization [employer] ([place], [place], [place], [place]) Address [address] [place] [address] Care Team Providers Care Assignment Editor Name Role Phone Kaylene Brooke MD Primary Care Provider [phone] Farooq Marcus MD Primary Care Provider [phone] Encounter Details Date Type Department Care Team (Late st Contact Info) Description 09/22/2020 Transcribed Document [facility] [place] [facility] [place] [address] ProviderRayray MD [address] [place] [address] Social History Tobacco Use Types Packs/Day Years [...] GEOVANNI STILES RPh - 09/23/2020 7:36 EDT Electronically signed by Malina Jacob Conversion Executive Administrative Assistant Cerner at 06/29/2022 2:41 PM CDT documented in this encounter Plan of Treatment Upcoming Encounters Date Type Department Care Team (Late st Contact Info) Description 05/25/2025 10:45 AM EDT Office Visit [facility] - [place] [address] [place] [address] Jalen Enciso MD [address] [place] [address] documented as of this encounter Visit Diagnoses Not on filedocumented in this encounter Care Teams Assignment Editor Relationship Specialty Start Date End Date MendyKaylene dunn MD [address] [place] [address] PCP - General General Internal Medicine 01/27/22 Farooq Marcus MD [address] [place] [address] PCP - General Family Medicine 02/27/22 documented as of this encounter
--- OUTSIDE RECORDS SUMMARY | 2024-12-22 08:46 | XMS_ITS | Encounter Summary ---
Author Organization [employer] ([place], [place], [place], [place]) Address [address] [place] [address] Care Team Providers Care Protective Clothing Issuer Name Role Phone Kaylene Brooke MD Primary Care Provider [phone] Farooq Marcus MD Primary Care Provider [phone] Encounter Details Date Type Department Care Team (Late st Contact Info) Description 09/22/2020 Transcribed Document [facility] [place] [address] [place] [address] ProviderRayray MD [address] [place], [place] [address] Social History Tobacco Use Types Packs/Day Years [...] Therapeutic activities PHYLLIS VIEIRA OTR/09/23/2020 15:46 EDT Mathematical Sciences Professor Goals, OT Bathing LTG Grid Goal #1 [...] 10/07/2020 EDT Goal Status : Initial goal HPYLLIS VIEIRA OTR/Tre - 09/23/2020 15:46 EDT Toilet [...] Description 05/25/2025 10:45 AM EDT Office Visit [place] [facility] - [place] [address] [place] [address] Jalen Enciso MD [address] [place] [address] documented as of this encounter Visit Diagnoses Not on filedocumented in this encounter Care Teams Protective Clothing Issuer Relationship Specialty Start Date End Date Kaylene Brooke MD [address] [place] [address] PCP - General General Internal Medicine 01/27/22 Farooq Marcus MD [address] [facility] [place] [address] PCP - General Family Medicine 02/27/22 documented as of this encounter
--- OUTSIDE RECORDS SUMMARY | 2024-12-22 08:46 | XMS_ITS | Encounter Summary ---
Author Organization [employer] ([place], [place], [place], [place]) Address [address] [place] [address] Care Team Providers Care Career Development Facilitator Name Role Phone Kaylene Brooke MD Primary Care Provider [phone] Farooq Marcus MD Primary Care Provider [phone] Encounter Details Date Type Department Care Team (Late st Contact Info) Description 10/13/2020 Transcribed Document [facility] [place] [facility] [place] [address] ProviderRayray MD [address] [place] [address] Social History Tobacco Use Types Packs/Day Years [...] MATIAS KERN PTA - 10/13/2020 13:29 EDT Mcfp Goals Ambulation LTG Grid Goal #1 Device : None Distance : 200' Assist : Supervision or set-up Date to Meet : 10/25/2020 EDT Goal Status : Not met MATIAS KERN PTA - 10/13/2020 13:29 EDT documented in this encounter Plan of Treatment Upcoming Encounters Date Type Department Care Team (Late st Contact Info) Description 05/25/2025 10:45 AM EDT Office Visit [place] [facility] - [address] [facility] [address] [facility] [address] [place] [address] Jalen Enciso MD [address] [facility] [address] [place] [address] documented as of this encounter Visit Diagnoses Not on filedocumented in this encounter Care Teams Career Development Facilitator Relationship Specialty Start Date End Date Kaylene Brooke MD [address] [place] [address] PCP - General General Internal Medicine 01/27/22 Farooq Marcus MD [address] [place] [place] [address] PCP - General Family Medicine 02/27/22 documented as of this encounter
--- OUTSIDE RECORDS SUMMARY | 2024-12-22 08:46 | XMS_ITS | Encounter Summary ---
Author Organization [employer] ([place], [place], [place], [place]) Address [address] [place] [address] Care Team Providers Care Diploma Pharmacy Technician Name Role Phone Kaylene Brooke MD Primary Care Provider [phone] Farooq Marcus MD Primary Care Provider [phone] Encounter Details Date Type Department Care Team (Late st Contact Info) Description 09/22/2020 Transcribed Document [facility] [place] [facility] [place] [address] ProviderRayray MD [address] [place] [address] Social History Tobacco Use Types Packs/Day Years [...] with dr topete done at [facility] - pt stopped taking brilinta on his own accord shortly after the PCI as it was making him sob - on aspirin 81 mg daily. syncope 2 weeks ago - two weeks ago, was at [facility] for this stay. depression - start on antidepressant last week with dr enciso - pt and unsure what medication this was. irregular heart rhythm, possibly afib - with pacemaker - follows with dr topete and dr COSTA in [place] Patients Medical Story: Mr. Del Angel is an 84 year old male with history of esophageal cancer on chemotherapy with dr Enciso, last chemo on 09/17, coronary artery disease last with PCI in [facility] about 2 months ago as well as pacemaker for heart rhythm , possibly afib who presented to [facility] on 09/22 for evaluation of abd pain [...] stent placement about 2 months ago in [facility] he was started on brilinta and aspirin and didnt like how it made me feel thus he stopped taking the brilinta. He had syncopal episode after taking metoprolol and protonix and thus stopped taking those too about 2 weeks ago. He was also hospitalized at [facility] then. He reports significant weight loss as [...] Will notify Primary Care Provider [facility] of change in care plan. Will look at further interventions as needed. Code Status: At this time patient wishes to be Code Status Start: 09/22/20 17:15:00 EDT, Full Code, Continuous Order Time Spent with Patient: [ 16] minutes Chantelle Lundberg D.O. [facility] Hospitalist pager: [phone] documented in this encounter Plan of Treatment Upcoming Encounters Date Type Department Care Team (Late st Contact Info) Description 05/25/2025 10:45 AM EDT Office Visit [facility] - [place] [address] [place] [address] Jalen Enciso MD [address] [place] [address] documented as of this encounter Visit Diagnoses Not on filedocumented in this encounter Care Teams Diploma Pharmacy Technician Relationship Specialty Start Date End Date Kaylene Brooke MD [address] [place] [address] PCP - General General Internal Medicine 01/27/22 Farooq Marcus MD [address] [place] [address] PCP - General Family Medicine 02/27/22 documented as of this encounter
--- OUTSIDE RECORDS SUMMARY | 2024-12-22 08:46 | XMS_ITS | Encounter Summary ---
Author Organization [employer] ([place], [place], [place], [place]) Address [address] [place] [address] Care Team Providers Care Director Of Pharmacy Name Role Phone Kaylene Brokoe MD Primary Care Provider [phone] Farooq Marcus MD Primary Care Provider [phone] Encounter Details Date Type Department Care Team (Late st Contact Info) Description 09/22/2020 Transcribed Document [facility] [place] [facility] [place] [address] ProviderRayray MD [address] [place] [address] Social History Tobacco Use Types Packs/Day Years [...] 09/23/2020 9:17 EDT Electronically signed by Nidia [facility] Conversion Cook Manager Cerner at 06/29/2022 2:35 PM CDT documented in this encounter Plan of Treatment Upcoming Encounters Date Type Department Care Team (Late st Contact Info) Description 05/25/2025 10:45 AM EDT Office Visit [facility] [facility] - [place] [address] [place] [address] Jalen Enciso MD [address] [place] [address] documented as of this encounter Visit Diagnoses Not on filedocumented in this encounter Care Teams Director Of Pharmacy Relationship Specialty Start Date End Date Kaylene Brooke MD [address] [place] [address] PCP - General General Internal Medicine 01/27/22 Farooq Marcus MD [address] [facility] [place] [address] PCP - General Family Medicine 02/27/22 documented as of this encounter
--- OUTSIDE RECORDS SUMMARY | 2024-12-22 08:46 | XMS_ITS | Encounter Summary ---
Author Organization [employer] ([place], [place], [place], [place]) Address [address] [place] [address] Care Team Providers Care Digital Controls Technical Officer Name Role Phone Kaylene Brooke MD Primary Care Provider [phone] Farooq Marcus MD Primary Care Provider [phone] Encounter Details Date Type Department Care Team (Late st Contact Info) Description 09/22/2020 Transcribed Document [facility] [place] [facility] [place] [address] ProviderRayray MD [address] [place] [address] Social History Tobacco Use Types Packs/Day Years [...] ACOSTA REEVES, PT - 09/23/2020 11:52 EDT Detention Goals Ambulation LTG Grid Goal [...] Description 05/25/2025 10:45 AM EDT Office Visit [facility] [place] [facility] - [place] [facility] [place] [address] Jalen Enciso MD [address] [place] [address] documented as of this encounter Visit Diagnoses Not on filedocumented in this encounter Care Teams Digital Controls Technical Officer Relationship Specialty Start Date End Date Kaylene Brooke MD [address] [place] [address] PCP - General General Internal Medicine 01/27/22 Farooq Marcus MD [address], [place] [address] PCP - General Family Medicine 02/27/22 documented as of this encounter
--- OUTSIDE RECORDS SUMMARY | 2024-12-22 08:46 | XMS_ITS | Encounter Summary ---
Author Organization [employer] ([place], [place], [place], [place]) Address [address] [place] [address] Care Team Providers Care Account Manager B2B Name Role Phone Kaylene Brooke MD Primary Care Provider [phone] Farooq Marcus MD Primary Care Provider [phone] Encounter Details Date Type Department Care Team (Late Contact Info) Description 10/09/2020 Transcribed Document [facility] [place] [address] ProviderRayray MD [address] [place], [place] [address] Social History Tobacco Use Types Packs/Day Years [...] 10/09/2020 18:36 EDT Electronically signed by Nidia [facility] Conversion Biofuels Operations Manager Cerner at 06/29/2022 2:41 PM CDT documented in this encounter Plan of Treatment Upcoming Encounters Date Type Department Care Team (Late st Contact Info) Description 05/25/2025 10:45 AM EDT Office Visit [facility] - [place] [address] [place] [address] Jalen Enciso MD [address] [place] [address] documented as of this encounter Visit Diagnoses Not on filedocumented in this encounter Care Teams Account Manager B2B Relationship Specialty Start Date End Date Kaylene Brooke MD [address] [place] [address] PCP - General General Internal Medicine 01/27/22 Farooq Marcus MD [address] [place] [address] PCP - General Family Medicine 02/27/22 documented as of this encounter
--- OUTSIDE RECORDS SUMMARY | 2024-12-22 08:46 | XMS_ITS | Referral Summary ---
Author Organization [employer] ([place], [place], [place], [place]) Address [address] [place] [address] Care Team Providers Care Demurrage Clerk Name Role Phone Farooq Marcus MD Primary Care Provider [phone] Encounters Date Type Department Care Team Description 12/17/2024 Telephone [facility] - [place] [address] [place] [address] Jalen Enciso MD Appointment 12/09/2024 Telephone [facility] - [place] [address] [place] [address] Jalen Enciso MD medical records request 11/24/2024 Travel 11/24/2024 2:00 PM EDT Office Visit [facility] - [place] [address] [place] [address] Jalen Enciso MD Adenocarcinoma of gastroesophageal junction (HCC) (Primary Dx) 11/21/2024 Telephone [facility] - [place] [address] [place] [address] Jalen Enciso MD Appointment 09/29/2024 Telephone [facility] - [place] [address] [place] [address] Jalen Enciso MD Leg Swelling [...] 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 [address] [facility] [address] [place] [address] Jalen Enciso MD [address] [facility] [address] [place] [address] Insurance MED[place]ARE [place] [address] [address] Care Teams Demurrage Clerk Relationship Specialty Start Date End Date Farooq Marcus MD [address] [place] [address] PCP - General Family Medicine 02/27/22
--- OUTSIDE RECORDS SUMMARY | 2024-12-22 08:46 | XMS_ITS | Encounter Summary ---
Author Organization [employer] ([place], [place], [place], [place]) Address [address] [place] [address] Care Team Providers Care Manufacturing Support Engineer Name Role Phone Kaylene Brooke MD Primary Care Provider [phone] Farooq Marcus MD Primary Care Provider Encounter Details Date Type Department Care Team (Late st Contact Info) Description 09/22/2020 Transcribed Document [facility] [place] [facility] [place] [address] ProviderRayray MD [address] [place], [place] [address] Social History Tobacco Use Types Packs/Day Years [...] Description 05/25/2025 10:45 AM EDT Office Visit [facility] - [place] [address] [place] [address] Jalen Enciso MD [address] [place] [address] documented as of this encounter Visit Diagnoses Not on filedocumented in this encounter Care Teams Manufacturing Support Engineer Relationship Specialty Start Date End Date MendyKaylene dunn MD [address] [place] [address] PCP - General General Internal Medicine 01/27/22 Farooq Marcus MD [address] [facility] [place] [address] PCP - General Family Medicine 02/27/22 documented as of this encounter
--- OUTSIDE RECORDS SUMMARY | 2024-12-22 08:46 | XMS_ITS | Encounter Summary ---
Author Organization [employer] ([place], [place], [place], [place]) Address [address] [place] [address] Care Team Providers Care Senior Teller Name Role Phone Kaylene Brooke MD Primary Care Provider [phone] Farooq Marcus MD Primary Care Provider [phone] Encounter Details Date Type Department Care Team (Late st Contact Info) Description 10/10/2020 Transcribed Document [facility] [place] [facility] [place] [address] ProviderRayray MD [address] [place], [place] [address] Social History Tobacco Use Types Packs/Day Years [...] cancer. Reason for Consultation Palliative needs and [facility] History of Present Illness 84 yo wm presented to ER at [facility] after having worsening N/V. Admitted to observation. [...] Living will on file from 09/23/20 naming [facility] 1 [place] [facility] Sister Georgina Recio Code status: Full Residency before this admission: Lived at home with spouse. ESAS: 0-10 scale: Pain: Dyspnea:+ with exertion Nausea:+ improving Insomnia:+ Constipation:+ Anxiety:+ Agitation: Depression:+ Fatigue:+ Well-being: Appetite:diminished but improving Drowsy: PRN Medication: Doses/24hours: Pain: Anxiety/Agitation: Ativan 1mg TID scheduled Dyspnea: Nausea: Zofran 8mg x1, Phenergan none FLOOR SCRUBBER: Basal Bolus Review of Systems Constitutional: no [...] Has had anxiety issues for many years. 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 Scheduled Ativan 1mg TID not helping much per pt report. Consider longer acting med or different antidepressant if persists. Discussed with Mile Willams PA-C. 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 He is given generalized education about options moving forward and encouraged to discuss what QOL would look like for him with his . We discussed his current symptoms as described above. Pt and have many questions and are heavily basing decisions on POC depending on upcoming follow ups with oncology. 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 Has 3 living biological children. 1 dtr and 1 step dtr. Family History Father-emphysema Mother-stroke in age 80's Immunizations Unknown Diagnostic Results Radiology Results (Last 48 hours) [id number] -- 10/09/2020 15:48 CR Chest 1 Vw [...] ALYC # 0 K/uL 10/09/2020 13:15 EDT [place] Percent Man 10 % (High) 10/10/2020 05:50 EDT [place] Percent Man 15 % (High) 10/09/2020 13:15 [...] Appearance CLEAR2 10/09/2020 14:45 EDT Urine Specific [place] 1.014 10/09/2020 14:45 EDT Urine pH Dipstick [...] DATE: SOURCE: SITE: Reports Electronically signed by [facility] Conversion Carbon Coater Machine Operator Cerner at 06/29/2022 2:20 PM CDT documented in this encounter Plan of Treatment Upcoming Encounters Date Type Department Care Team (Late st Contact Info) Description 05/25/2025 10:45 AM EDT Office Visit [facility] - [place] [address] [place] [address] Jalen Enciso MD [address] [place] [address] documented as of this encounter Visit Diagnoses Not on filedocumented in this encounter Care Teams Senior Teller Relationship Specialty Start Date End Date Kaylene Brooke MD [address] [place] [address] PCP - General General Internal Medicine 01/27/22 Farooq Marcus MD [address] [place] [address] PCP - General Family Medicine 02/27/22 documented as of this encounter
--- OUTSIDE RECORDS SUMMARY | 2024-12-22 08:46 | XMS_ITS | Encounter Summary ---
Author Organization [employer] ([place], [place], [place], [place]) Address [address] [place] [address] Care Team Providers Care Fruit Inspector Name Role Phone Kaylene Brooke MD Primary Care Provider [phone] Farooq Marcus MD Primary Care Provider [phone] Encounter Details Date Type Department Care Team (Late st Contact Info) Description 09/22/2020 Transcribed Document [facility] [place] [facility] [place] [address] ProviderRayray MD [address] [place] [address] Social History Tobacco Use Types Packs/Day Years [...] Patient Referral Reason Comment : Living Will Leakage Tester Services Provided : Yes Leakage Tester Services Provided Comment : Completed Living Will Ministry Provided to : Patient, Family/Significant other Sikh Preference : No listed preference TATIANA COULTER - 09/23/2020 8:16 EDT Interventions Advance Directive Information Provided : Yes Advance Directive Comment : Completed Living Will Emotional Support : Empathic/Engaged listening, Family/Significant other supported, Feelings expressed, Information provided Spiritual and Sikh : Spiritual/Sikh support provided Change, Adjustment and Loss : [...] 09/23/2020 8:16 EDT Electronically signed by Nidia, [facility] Conversion Tube And Manifold Builder Cerner at 06/29/2022 2:31 PM CDT documented in this encounter Plan of Treatment Upcoming Encounters Date Type Department Care Team (Late st Contact Info) Description 05/25/2025 10:45 AM EDT Office Visit [place] [facility] [address] [facility] [address] [place] [address] Jalen Enciso MD [address] [place] [address] documented as of this encounter Visit Diagnoses Not on filedocumented in this encounter Care Teams Fruit Inspector Relationship Specialty Start Date End Date Kaylene Brooke MD [address] [place] [address] PCP - General General Internal Medicine 01/27/22 Farooq Marcus MD [address] [facility] [place] [address] PCP - General Family Medicine 02/27/22 documented as of this encounter
--- OUTSIDE RECORDS SUMMARY | 2024-12-22 08:46 | XMS_ITS | Encounter Summary ---
Author Organization [employer] ([place], [place], [place], [place]) Address [address] [place] [address] Care Team Providers Care Roving Changer Name Role Phone Farooq Marcus MD Primary Care Provider [phone] Reason for Visit * Reason Onset Date Comments Appointment 11/21/2024 Encounter Details Date Type Department Care Team (Late st Contact Info) Description 11/21/2024 Telephone [place] [facility] - [facility] [address] [facility] [address] [place] [address] Jalen Enciso MD [address] [place] [address] Appointment Social History Tobacco Use [...] Date Scotty rded Speak language other than Fijian at home Not on file 03/22/2023 Want [...] 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
--- OUTSIDE RECORDS SUMMARY | 2024-12-22 08:46 | XMS_ITS | Encounter Summary ---
Author Organization [employer] ([place], [place], [place], [place]) Address [address] [place] [address] Care Team Providers Care Actuarial Trainee Name Role Phone Kaylene Brooke MD Primary Care Provider Farooq Marcus MD Primary Care Provider [phone] Encounter Details Date Type Department Care Team (Late st Contact Info) Description 10/13/2020 Transcribed Document [facility] Family Medicine [address] [place] [address] ProviderRayray MD [address] [place] [address] Social History Tobacco Use Types Packs/Day Years [...] Description 05/25/2025 10:45 AM EDT Office Visit [place] [facility] - [facility] [address] [facility] [address] [place] [address] Jalen Enciso MD [address] [facility] [address] [place] [address] documented as of this encounter Visit Diagnoses Not on filedocumented in this encounter Care Teams Actuarial Trainee Relationship Specialty Start Date End Date Kaylene Brooke MD [address] [place] [address] PCP - General General Internal Medicine 01/27/22 Farooq Marcus MD [address] [place] [address] PCP - General Family Medicine 02/27/22 documented as of this encounter
--- OUTSIDE RECORDS SUMMARY | 2024-12-22 08:46 | XMS_ITS | Encounter Summary ---
Author Organization [employer] ([place], [place], [place], [place]) Address [address] [place] [address] Care Team Providers Care Photo Journalist Name Role Phone Kaylene Brooke MD Primary Care Provider [phone] Farooq Marcus MD Primary Care Provider [phone] Encounter Details Date Type Department Care Team (Late st Contact Info) Description 09/22/2020 Transcribed Document [facility] [place] [address] ProviderRayray MD [address] [place] [address] Social History Tobacco Use Types Packs/Day Years [...] abd pain, n/v. PCP: tommie mccartney in [place] oncologist: dr seo cottage attendant: dr topete and dr COSTA in [place] Subjective Mr. Del Angel is an 84 year old male with history of esophageal cancer on chemotherapy with dr Seo, last chemo on 09/17, coronary artery disease last with PCI in [facility] about 2 months ago as well as pacemaker for heart rhythm , possibly afib who presented to [facility] on 09/22 for evaluation of abd pain [...] stent placement about 2 months ago in [facility] he was started on brilinta and aspirin and didnt like how it made me feel thus he stopped taking the brilinta. He had syncopal episode after taking metoprolol and protonix and thus stopped taking those too about 2 weeks ago. He was also hospitalized at [facility] then. He reports significant weight loss [...] list: Medical Leg neuralgia / SNOMED CT 67948739 / Confirmed Hyperlipidemia / SNOMED CT 41168206 / Confirmed Chest pain with high risk for cardiac etiology / SNOMED CT 81198378 / Confirmed At risk for sleep apnea / IMO 70763722 / Confirmed Anxiety disorder / SNOMED CT 677016681 / Confirmed, Active Problems (7) Anxiety disorder [...] Results Review Radiology Results (Last 48 hours) [id number] -- 09/22/2020 09:28 CR Chest 1 Vw [...] recommended.Images reviewed, interpreted, and dictated by Dr. Croi Bui.Transcribed by Urmila Corrales PA-C.I have personally [...] months ago with dr topete done at [facility] - pt stopped taking brilinta on his own accord shortly after the PCI as it was making him sob - on aspirin 81 mg daily. syncope 2 weeks ago - two weeks ago, was at [facility] for this stay. depression - start on antidepressant last week with dr seo - pt and unsure what medication this was. irregular heart rhythm, possibly afib - with pacemaker - follows with dr topete and dr COSTA in [place] medical record reviewed, discussed with ER provider. [...] 05/25/2025 10:45 AM EDT Office Visit [place] [facility] - [place] [address] [place] [address] Jalen Seo MD [address] [place] [address] documented as of this encounter Visit Diagnoses Not on filedocumented in this encounter Care Teams Photo Journalist Relationship Specialty Start Date End Date Kaylene Brooke MD [address] [place] [address] PCP - General General Internal Medicine 01/27/22 Farooq Marcus MD [address] [place] [address] PCP - General Family Medicine 02/27/22 documented as of this encounter
--- OUTSIDE RECORDS SUMMARY | 2024-12-22 08:47 | XMS_ITS | Encounter Summary ---
Author Organization [employer] ([place], [place], [place], [place]) Address [address] [place] [address] Care Team Providers Care Transportation Manager Name Role Phone Kaylene Brooke MD Primary Care Provider [phone] Farooq Marcus MD Primary Care Provider [phone] Encounter Details Date Type Department Care Team (Late st Contact Info) Description 09/22/2020 Transcribed Document [facility] Radiology [address] [place] [id number] Swathi Augustin MD [address] [facility] [place] [address] Social History Tobacco Use Types Packs/Day Years [...] EDT Height Source Stated Height Entry Format [place] Height/Length, FAROESE (ft) 6 ft Height/Length FAROESE 0 Inch CLINICALHEIGHT 182.88 cm [place] Body Weight 76.59 kg Weight Source, ED Critical estimated dosing weight Weight Entry Format Morrison Weight [place] lb 175 lb CLINICALWEIGHT 79.55 kg Body [...] 93, normal sinus rhythm, no ectopy, normal MO & QRS intervals, EP Interp, Left bundle branch block consistent with prior EKG. Results review: Lab results : Lab Results 09/22/2020 13:45 EDT Lactic Acid Level 3.6 mmol/L CRIT 09/22/2020 11:41 EDT Influenza A Negative Influenza B Negative SARS-CoV-2 (COVID19 PCR) Negative 09/22/2020 11:25 EDT Urine Type. U CleanCatch Urine Color Adriana Urine Appearance Clear Urine Specific [place] 1.016 Urine pH Dipstick 7.0 Urine Leukocyte [...] % LOW ALYC # 0 K/uL NA [place] Percent Man 1 % LOW Eos Percent Man 0 % Baso Percent Man 0 % [place] Percent Man 1 % RBC Morphology Abnormal Anisocytosis 1+ Hypochromia 1+ Platelet Ct Estimate Adequate Procalcitonin 45.30 ng/mL HI . Radiology results: Reviewed radiologist's report, Radiology Results (Last 48 hours) [id number] -- 09/22/2020 09:28 CR Chest 1 Vw [...] Description 05/25/2025 10:45 AM EDT Office Visit [place] [facility] - [facility] [address] [facility] [address] [place] [address] Jalen Enciso MD [address] [facility] [address] [place] [address] documented as of this encounter Visit Diagnoses Not on filedocumented in this encounter Care Teams Transportation Manager Relationship Specialty Start Date End Date Kaylene Brooke MD [address] [place] [address] PCP - General General Internal Medicine 01/27/22 Farooq Marcus MD [address] [facility] [place] [address] PCP - General Family Medicine 02/27/22 documented as of this encounter
--- OUTSIDE RECORDS SUMMARY | 2024-12-22 08:47 | XMS_ITS | Encounter Summary ---
Author Organization [employer] ([place], [place], [place], [place]) Address [address] [place] [address] Care Team Providers Care Community Artist Name Role Phone Kaylene Brooke MD Primary Care Provider [phone] Farooq Marcus MD Primary Care Provider [phone] Encounter Details Date Type Department Care Team (Late st Contact Info) Description 09/22/2020 Transcribed Document [facility] [place] Family Medicine [facility] [place] [address] ProviderRayray MD [address] [place] [address] Social History Tobacco Use Types Packs/Day Years [...] Wheelchair Legal Guardian : Spouse Support Person/Patient Scouring Train Operator : Yes Support Person/Pt Rep Name : Jamie Del Angel - Support Person/Pt Rep Contact Information : [phone] Want Family/Rep/Phys Notified of Admit : No Emergency Contact #1 : JAMIE Emergency Contact #1 Phone Number : [phone] Emergency Contact #1 Relationship : SPOUSE Emergency Contact #2 : MAZIN Emergency Contact #2 Phone Number : [phone] Emergency Contact #2 Relationship : SON Chief Complaint : c/o generalized abdominal pain, n/v since last night. Temp 102 yesterday per . 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 Enciso. Information Obtained From : Patient Primary Language : Marshallese Communication Barrier : None Rubber Goods Cutter Finisher Needed : No Sean Guidry Rn - [...] Level : 46 or > High Risk [place] Fall Interventions : Adequate lighting, Assistive devices [...] Source : Chart Height Entry Format : [place] Height, Feet : 6 ft(Converted to: 183 cm, 72 Inch) Height, Inches : 0 Inch(Converted to: 0 ft 0 Inch, 0.00 cm) Clinical Height : 182.88 cm Weight Source : Bed scale Weight Entry Format : [place] Clinical Dosing Weight : 79.55 kg Weight, Pounds : 175 lb Body Surface Area (BSA) : 2.01 m2 Body Mass Index : 23.8 kg/m2 [place] Body Weight : 77 kg Sean Guidry [...] Guidry I, Rn - 09/22/2020 23:43 EDT [place] Suicide Severity Rating Scale (C-SSRS) CSSRS Past [...] Description 05/25/2025 10:45 AM EDT Office Visit [place] [facility] - [place] [address] [facility] [address] [place] [address] Jalen Enciso MD [address] [place] [address] [place] [address] documented as of this encounter Visit Diagnoses Not on filedocumented in this encounter Care Teams Community Artist Relationship Specialty Start Date End Date Kaylene Brooke MD [address] [place] [address] PCP - General General Internal Medicine 01/27/22 Farooq Marcus MD [address] [place], [place] [address] PCP - General Family Medicine 02/27/22 documented as of this encounter
--- OUTSIDE RECORDS SUMMARY | 2024-12-22 08:47 | XMS_ITS | Encounter Summary ---
Author Organization [employer] ([place], [place], [place], [place]) Address [address] [place] [address] Care Team Providers Care Coach Mechanic Name Role Phone Kaylene Brooke MD Primary Care Provider [phone] Farooq Marcus MD Primary Care Provider [phone] Encounter Details Date Type Department Care Team (Late st Contact Info) Description 09/22/2020 Transcribed Document [facility] Family Medicine [facility] [place] [address] ProviderRayray MD [address] [place], [place] [address] Social History Tobacco Use Types Packs/Day Years [...] for changes. Rx will follow, Adrian Mandel,BarbraD,BCPS,BCCCP #[id number] Electronically signed by Nidia, [facility] Conversion Sleeve Turner Cerner at 06/29/2022 2:21 PM CDT documented in this encounter Plan of Treatment Upcoming Encounters Date Type Department Care Team (Late st Contact Info) Description 05/25/2025 10:45 AM EDT Office Visit [place] [facility] - [place] [address] [place] [address] Jalen Enciso MD [address] [place] [address] [place] [address] documented as of this encounter Visit Diagnoses Not on filedocumented in this encounter Care Teams Coach Mechanic Relationship Specialty Start Date End Date MendyKaylene dunn MD [address] [place] [address] PCP - General General Internal Medicine 01/27/22 Farooq Marcus MD [address] [place] [address] PCP - General Family Medicine 02/27/22 documented as of this encounter
--- OUTSIDE RECORDS SUMMARY | 2024-12-22 08:47 | XMS_ITS | Encounter Summary ---
Author Organization [employer] ([place], [place], [place], [place]) Address [address] [place] [address] Care Team Providers Care Guest Experience Specialist Name Role Phone Kaylene Brooke MD Primary Care Provider [phone] Farooq Marcus MD Primary Care Provider [phone] Encounter Details Date Type Department Care Team (Late st Contact Info) Description 09/22/2020 Transcribed Document [facility] [place] [facility] [place] [address] ProviderRayray MD [address] [place] [address] Social History Tobacco Use Types Packs/Day Years [...] 16:52 EDT by Snehal Mathews Emergency Room Talent Development Consultant Phone Call for Consults Consult Phone Call/Page Attempt : First call Consult Reason : esophageal cancer patient now n/v Provider Service Notified Name : Other: Oncology Date and Time Call Returned : 09/22/2020 16:52 EDT Consult, Additional Information : Spoke with Gely Monk and informed her of consult. Snehal Mathews Emergency Room Talent Development Consultant - 09/22/2020 16:52 EDT documented in this encounter Plan of Treatment Upcoming Encounters Date Type Department Care Team (Late st Contact Info) Description 05/25/2025 10:45 AM EDT Office Visit [place] [facility] - [place] [address] [place] [address] Jalen Enciso MD [address] [place] [address] documented as of this encounter Visit Diagnoses Not on filedocumented in this encounter Care Teams Guest Experience Specialist Relationship Specialty Start Date End Date MendyKaylene dunn MD [address] [place] [address] PCP - General General Internal Medicine 01/27/22 Farooq Marcus MD [address] [facility] [place] [address] PCP - General Family Medicine 02/27/22 documented as of this encounter
--- OUTSIDE RECORDS SUMMARY | 2024-12-22 08:47 | XMS_ITS | Encounter Summary ---
Author Organization [employer] ([place], [place], [place], [place]) Address [address] [place] [address] Care Team Providers Care Settlement Processor Name Role Phone Kaylene Brooke MD Primary Care Provider [phone] Farooq Marcus MD Primary Care Provider [phone] Encounter Details Date Type Department Care Team (Late st Contact Info) Description 09/22/2020 Transcribed Document [facility] [place] [address] [place] [address] ProviderRayray MD [address] [place] [address] Social History Tobacco Use Types Packs/Day Years [...] Communication Barrier : None Primary Language : Swedish Any Spiritual/Cultural Needs or Requests : No [...] Nausea at rest Nail Bed Color : [place] Chest Pain : No CELIA ALBERT RN [...] Description 05/25/2025 10:45 AM EDT Office Visit [place] [facility] - [place] [address] [facility] [address] [place] [address] Jalen Enciso MD [address] [facility] [address] [place] [address] documented as of this encounter Visit Diagnoses Not on filedocumented in this encounter Care Teams Settlement Processor Relationship Specialty Start Date End Date Kaylene Brooke MD [address] [place] [address] PCP - General General Internal Medicine 01/27/22 Farooq Marcus MD [address] [place] [address] PCP - General Family Medicine 02/27/22 documented as of this encounter
--- OUTSIDE RECORDS SUMMARY | 2024-12-22 08:47 | XMS_ITS | Encounter Summary ---
Author Organization [employer] ([place], [place], [place], [place]) Address [address] [place] [address] Care Team Providers Care Project Structural Engineer Name Role Phone Kaylene Brooke MD Primary Care Provider [phone] Farooq Marcus MD Primary Care Provider [phone] Encounter Details Date Type Department Care Team (Late st Contact Info) Description 09/22/2020 Transcribed Document [facility] Family [place] [facility] [place] [address] ProviderRayray MD [address] [place] [address] Social History Tobacco Use Types Packs/Day Years [...] change in location/level of care Rapid Response Project Structural Engineer #1 : MYCHAL NAM, RN MYCHAL NAM, RN - 09/22/2020 12:21 EDT Electronically signed by [facility], [facility] Conversion Dragline Operator Cerner at 06/29/2022 2:15 PM CDT documented in this encounter Plan of Treatment Upcoming Encounters Date Type Department Care Team (Late st Contact Info) Description 05/25/2025 10:45 AM EDT Office Visit [place] [facility] - [facility] [address] [facility] [address] [place] [address] Jalen Enciso MD [address] [facility] [address] [place] [address] documented as of this encounter Visit Diagnoses Not on filedocumented in this encounter Care Teams Project Structural Engineer Relationship Specialty Start Date End Date Kaylene Brooke MD [address] [place] [address] PCP - General General Internal Medicine 01/27/22 Farooq Marcus MD [address] [place] [address] PCP - General Family Medicine 02/27/22 documented as of this encounter
--- OUTSIDE RECORDS SUMMARY | 2024-12-22 08:47 | XMS_ITS | Encounter Summary ---
Author Organization [employer] ([place], [place], [place], [place]) Address [address] [place] [address] Care Team Providers Care Counter Hand Name Role Phone Kaylene Brooke MD Primary Care Provider [phone] Farooq Marcus MD Primary Care Provider [phone] Encounter Details Date Type Department Care Team (Late st Contact Info) Description 10/09/[address] [facility] [place] [place] [address] ProviderRayray MD [address] [place] [address] Social History Tobacco Use Types Packs/Day Years [...] OCCUPATIONAL THERAPIST NON-EXEMPT - 10/11/2020 15:42 EDT Half-Way Goals, OT Grooming LTG Grid Goal #1 [...] OCCUPATIONAL THERAPIST NON-EXEMPT - 10/11/2020 15:42 EDT Gordo OT Charges OT Eval Low Complexity : 1 Virginia Gonzalez OCCUPATIONAL THERAPIST NON-EXEMPT - 10/11/2020 15:42 EDT Electronically signed by [facility], [facility] Conversion Paper Control Clerk Cerner at 06/29/2022 2:42 PM CDT documented in this encounter Plan of Treatment Upcoming Encounters Date Type Department Care Team (Late st Contact Info) Description 05/25/2025 10:45 AM EDT Office Visit [place] [facility] - [place] [address] [facility] [address] [place] [address] Jalen Enciso MD [address] [place] [address] documented as of this encounter Visit Diagnoses Not on filedocumented in this encounter Care Teams Counter Hand Relationship Specialty Start Date End Date Kaylene Brooke MD [address] [place] [address] PCP - General General Internal Medicine 01/27/22 Farooq Marcus MD [address] [place] [address] PCP - General Family Medicine 02/27/22 documented as of this encounter
--- OUTSIDE RECORDS SUMMARY | 2024-12-22 08:47 | XMS_ITS | Encounter Summary ---
Author Organization [employer] ([place], [place], [place], [place]) Address [address] [place] [address] Care Team Providers Care Fiberglass Bonding Machine Tender Name Role Phone Kaylene Brooke MD Primary Care Provider [phone] Farooq Marcus MD Primary Care Provider [phone] Encounter Details Date Type Department Care Team (Late st Contact Info) Description 09/22/2020 Transcribed Document [facility] [place] [facility] [place] [address] ProviderRayray MD [address] [place], [place] [address] Social History Tobacco Use Types Packs/Day Years [...] chemo earlier this month. Pt presented to [facility] 09/22 for abd pain with N/V. GI consulted, LFTs/pancreatitis likely due to medication/dehydration, LFTs improving. Visited pt, not in room at time of visit. Pt stated he had a good appetite prior to hospitalization, ate 2 meals/day + snacks. No issues chewing/swallowing reported. Pt stated UBW 185#, last known in May 2020 before chemo started, stated CBW 165# (but admit ho=268#). RD to reorder wt to confirm. NFPE [...] Esophageal cancer hx of chemo, CAD, HLD, MA, cholecystectomy Meds: aspirin, Colace, PPI, senna, abx, [...] Description 05/25/2025 10:45 AM EDT Office Visit [facility] - [address] [facility] [address] [place] [address] Jalen Enciso MD [address] [place] [address] documented as of this encounter Visit Diagnoses Not on filedocumented in this encounter Care Teams Fiberglass Bonding Machine Tender Relationship Specialty Start Date End Date Kaylene Brooke MD [address] [place] [address] PCP - General General Internal Medicine 01/27/22 Farooq Marcus MD [address] [facility] [place] [address] PCP - General Family Medicine 02/27/22 documented as of this encounter
--- OUTSIDE RECORDS SUMMARY | 2024-12-22 08:47 | XMS_ITS | Encounter Summary ---
Author Organization [employer] ([place], [place], [place], [place]) Address [address] [place] [address] Care Team Providers Care Speaker Mounter Name Role Phone Kaylene Brooke MD Primary Care Provider [phone] Farooq Marcus MD Primary Care Provider [phone] Encounter Details Date Type Department Care Team (Late st Contact Info) Description 10/09/2020 Transcribed Document [facility] [place] [facility] [place] [address] ProviderRayray MD [address] [place] [address] Social History Tobacco Use Types Packs/Day Years [...] has a history of anxiety, chest pain, MS, 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 CINDY [...] DEL RIO, PT - 10/11/2020 15:32 EDT Residential Goals Ambulation LTG Grid Goal #1 Device [...] DEL RIO, PT - 10/11/2020 15:32 EDT Donald PT Charges PT Eval Low Complexity : 1 CINDY DLE RIO, PT - 10/11/2020 15:32 EDT Electronically signed by [facility], [facility] Conversion Lead Burner Supervisor Cerner at 06/29/2022 2:37 PM CDT documented in this encounter Plan of Treatment Upcoming Encounters Date Type Department Care Team (Late st Contact Info) Description 05/25/2025 10:45 AM EDT Office Visit [facility] - [address] [facility] [address] [place] [address] Jalen Enciso MD [address] [place] [address] documented as of this encounter Visit Diagnoses Not on filedocumented in this encounter Care Teams Speaker Mounter Relationship Specialty Start Date End Date Kaylene Brooke MD [address] [place] [address] PCP - General General Internal Medicine 01/27/22 Farooq Marcus MD [address] [place] [address] PCP - General Family Medicine 02/27/22 documented as of this encounter
--- OUTSIDE RECORDS SUMMARY | 2024-12-22 08:47 | XMS_ITS | Encounter Summary ---
Author Organization [employer] ([place], [place], [place], [place]) Address [address] [place] [address] Care Team Providers Care Kiln Burner Name Role Phone Kaylene Brooke MD Primary Care Provider [phone] Farooq Marcus MD Primary Care Provider [phone] Encounter Details Date Type Department Care Team (Late st Contact Info) Description 09/22/2020 Transcribed Document [facility] [place] [facility] [place] [address] ProviderRayray MD [address] [place] [address] Social History Tobacco Use Types Packs/Day Years [...] Description 05/25/2025 10:45 AM EDT Office [facility] [address] [place] [address] Jalen Enciso MD [address] [place] [address] documented as of this encounter Visit Diagnoses Not on filedocumented in this encounter Care Teams Kiln Burner Relationship Specialty Start Date End Date Kaylene Brooke MD [address] [place] [address] PCP - General General Internal Medicine 01/27/22 Farooq Marcus MD [address] [place] [address] PCP - General Family Medicine 02/27/22 documented as of this encounter
--- OUTSIDE RECORDS SUMMARY | 2024-12-22 08:47 | XMS_ITS | Encounter Summary ---
Author Organization [employer] ([place], [place], [place], [place]) Address [address] [place] [address] Care Team Providers Care Supervisor Mending Name Role Phone Kaylene Brooke MD Primary Care Provider [phone] Farooq Marcus MD Primary Care Provider [phone] Encounter Details Date Type Department Care Team (Late st Contact Info) Description 10/09/2020 Transcribed Document [facility] [place] [facility] [place] [address] ProviderRayray MD [address] [place], [place] [address] Social History Tobacco Use Types Packs/Day Years [...] - 10/09/2020 18:26 EDT Electronically signed by [facility], [facility] Conversion Electric Utility Lineworker Cerner at 06/29/2022 2:37 PM CDT documented in this encounter Plan of Treatment Upcoming Encounters Date Type Department Care Team (Late st Contact Info) Description 05/25/2025 10:45 AM EDT Office Visit [facility] - [place] [address] [place] [address] Jalen Enciso MD [address] [place] [address] [place] [address] documented as of this encounter Visit Diagnoses Not on filedocumented in this encounter Care Teams Supervisor Mending Relationship Specialty Start Date End Date Kaylene Brooke MD [address] [place] [address] PCP - General General Internal Medicine 01/27/22 Farooq Marcus MD [address] [place] [address] PCP - General Family Medicine 02/27/22 documented as of this encounter
--- OUTSIDE RECORDS SUMMARY | 2024-12-22 08:47 | XMS_ITS | Encounter Summary ---
Author Organization [employer] ([place], [place], [place], [place]) Address [address] [place] [address] Care Team Providers Care Addiction Counselor Name Role Phone Kaylene Brooke MD Primary Care Provider [phone] Farooq Marcus MD Primary Care Provider [phone] Encounter Details Date Type Department Care Team (Late st Contact Info) Description 10/09/2020 Transcribed Document [facility] [place] Family Medicine [address] [place] [address] ProviderRayray MD [address] [place] [address] Social History Tobacco Use Types Packs/Day Years [...] 10/10/2020 9:10 EDT Electronically signed by [facility] Conversion Sports Photographer Cerner at 06/29/2022 2:31 PM CDT documented in this encounter Plan of Treatment Upcoming Encounters Date Type Department Care Team (Late st Contact Info) Description 05/25/2025 10:45 AM EDT Office Visit [facility] - [address] [place] [address] Jalen Enciso MD [address] [place] [address] documented as of this encounter Visit Diagnoses Not on filedocumented in this encounter Care Teams Addiction Counselor Relationship Specialty Start Date End Date Kaylene Brooke MD [address] [place] [address] PCP - General General Internal Medicine 01/27/22 Farooq Marcus MD [address] [address] PCP - General Family Medicine 02/27/22 documented as of this encounter
--- OUTSIDE RECORDS SUMMARY | 2024-12-22 08:47 | XMS_ITS | Encounter Summary ---
Author Organization [employer] ([place], [place], [place], [place]) Address [address] [place] [address] Care Team Providers Care Press Tender Star Signal Name Role Phone Kaylene Brooke MD Primary Care Provider [phone] Farooq Marcus MD Primary Care Provider [phone] Encounter Details Date Type Department Care Team (Late st Contact Info) Description 09/22/2020 Transcribed Document [facility] [facility] [place] [address] [place] [address] ProviderRayray MD [address] [place] [address] Social History Tobacco Use Types Packs/Day Years Used Date Smoking Tobacco: Never Assessed Sex and Gender Information Value Date Recorded Sex Assigned at Not on file Legal Sex Male 5:14 PM CDT Gender Identity Not on file Sexual Orientation Not on file documented as of this encounter Miscellaneous Notes * Cerner Conversion Note - Rayray ProviderMD - 09/22/2020 9:28 AM CDT [place] Suicide Severity Rating Scale (C-SSRS) Entered On: 09/22/2020 11:11 EDT Performed On: 09/22/2020 11:06 EDT by CELIA ALBERT RN [place] Suicide Severity Rating Scale (C-SSRS) CSSRS Past [...] Description 05/25/2025 10:45 AM EDT Office Visit [facility] - [address] [place] [address] Jalen Enciso MD [address] [place] [address] documented as of this encounter Visit Diagnoses Not on filedocumented in this encounter Care Teams Press Tender Star Signal Relationship Specialty Start Date End Date MendyKaylene dunn MD [address] [place] [address] PCP - General General Internal Medicine 01/27/22 Farooq Marcus MD [address] [place] [place] [address] PCP - General Family Medicine 02/27/22 documented as of this encounter
--- OUTSIDE RECORDS SUMMARY | 2024-12-22 08:47 | XMS_ITS | Encounter Summary ---
Author Organization [employer] ([place], [place], [place], [place]) Address [address] [place] [address] Care Team Providers Care Criminal Analyst Name Role Phone Kaylene Brooke MD Primary Care Provider [phone] Farooq Marcus MD Primary Care Provider [phone] Encounter Details Date Type Department Care Team (Late st Contact Info) Description 10/09/2020 Transcribed Document [facility] [place] Medicine [address] [place] [address] ProviderRayray MD [address] [place] [address] Social History Tobacco Use Types Packs/Day Years Used Date Smoking Tobacco: Never Assessed Sex and Gender Information Value Date Recorded Sex Assigned at Not on file Legal Sex Male 5:14 PM CDT Gender Identity Not on file Sexual Orientation Not on file documented as of this encounter Miscellaneous Notes * Cerner Conversion Note - Rayray ProviderMD - 10/09/2020 12:19 PM CDT [place] Suicide Severity Rating Scale (C-SSRS) Entered On: 10/09/2020 14:00 EDT Performed On: 10/09/2020 13:56 EDT by PRISCILLA JUAN RN [place] Suicide Severity Rating Scale (C-SSRS) CSSRS Past [...] Description 05/25/2025 10:45 AM EDT Office Visit [facility] - [address] [place] [address] Jalen Enciso MD [address] [place] [address] [place] [address] documented as of this encounter Visit Diagnoses Not on filedocumented in this encounter Care Teams Criminal Analyst Relationship Specialty Start Date End Date Kaylene Brooke MD [address] [place] [address] PCP - General General Internal Medicine 01/27/22 Farooq Marcus MD [address] [place] [address] PCP - General Family Medicine 02/27/22 documented as of this encounter
--- OUTSIDE RECORDS SUMMARY | 2024-12-22 08:47 | XMS_ITS | Encounter Summary ---
Author Organization [employer] ([place], [place], [place], [place]) Address [address] [place] [address] Care Team Providers Care Senior Microsoft Consultant Name Role Phone Kaylene Brooke MD Primary Care Provider [phone] Farooq Marcus MD Primary Care Provider [phone] Encounter Details Date Type Department Care Team (Late st Contact Info) Description 09/22/2020 Transcribed Document [facility] [place] [facility] [place] [address] ProviderRayray MD [address] [place] [address] Social History Tobacco Use Types Packs/Day Years [...] Description 05/25/2025 10:45 AM EDT Office Visit [facility] - [facility] [address] [facility] [address] [place] [address] Jalen Enciso MD [address] [place] [address] documented as of this encounter Visit Diagnoses Not on filedocumented in this encounter Care Teams Senior Microsoft Consultant Relationship Specialty Start Date End Date Kaylene Brooke MD [address] [place] [address] PCP - General General Internal Medicine 01/27/22 Farooq Marcus MD [address] [place] [address] PCP - General Family Medicine 02/27/22 documented as of this encounter
--- OUTSIDE RECORDS SUMMARY | 2024-12-22 08:48 | XMS_ITS | Encounter Summary ---
Author Organization [employer] ([place], [place], [place], [place]) Address [address] [place] [address] Care Team Providers Care Warp Worker Name Role Phone Kaylene Brooke MD Primary Care Provider [phone] Farooq Marcus MD Primary Care Provider [phone] Encounter Details Date Type Department Care Team (Late st Contact Info) Description 09/22/2020 Transcribed Document [facility] [place] Family Medicine [facility] [place] [address] ProviderRayray MD [address] [place] [address] Social History Tobacco Use Types Packs/Day Years [...] Description 05/25/2025 10:45 AM EDT Office Visit [facility] - [facility] [address] [place] [address] Jalen Enciso MD [address] [place] [address] documented as of this encounter Visit Diagnoses Not on filedocumented in this encounter Care Teams Warp Worker Relationship Specialty Start Date End Date Kaylene Brooke MD [address] [place] [address] PCP - General General Internal Medicine 01/27/22 Farooq Marcus MD [address] [place] [address] PCP - General Family Medicine 02/27/22 documented as of this encounter
--- OUTSIDE RECORDS SUMMARY | 2024-12-22 08:48 | XMS_ITS | Encounter Summary ---
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 Wanting to try Ensure Clear [...] Severe PCM Criteria Met 10/11/20 MARIELA MARALML [facility] 10/11/2020 12:36 EDT Education Topics, Nutrition Nutrition Education Grid Dietary Supplements : Verbalizes understanding SANDRAJADA MARALML [facility] 10/11/2020 12:36 EDT documented in this encounter Plan of Treatment Upcoming Encounters Date Type Department Care Team (Late st Contact Info) Description 05/25/2025 10:45 AM EDT Office Visit [facility] [address] [facility] [address] [place] [address] Jalen Enciso MD [address] [facility] [address] [place] [address] documented as of this encounter Visit Diagnoses Not on filedocumented in this encounter Care Teams Domestic Travel Consultant Relationship Specialty Start Date End Date Kaylene Brooke MD [address] [place] [address] PCP - General General Internal Medicine 01/27/22 Farooq Marcus MD [address] [place] [address] PCP - General Family Medicine 02/27/22 documented as of this encounter
--- OUTSIDE RECORDS SUMMARY | 2024-12-22 08:48 | XMS_ITS | Encounter Summary ---
Author Organization [employer] ([place], [place], [place], [place]) Address [address] [place] [address] Care Team Providers Care Field Nurse Name Role Phone Kaylene Brooke MD Primary Care Provider [phone] Farooq Marcus MD Primary Care Provider [phone] Encounter Details Date Type Department Care Team (Late st Contact Info) Description 09/22/2020 Transcribed Document [facility] [place] [facility] [place] [address] ProviderRayray MD [address] [place], [place] [address] Social History Tobacco Use Types Packs/Day Years [...] : 2 - [facility] Anu Evans RN - 09/22/2020 [...] 09:50:12 EDT) Problems(Active) Anxiety disorder (SNOMED CT :537229014 ) Name of Problem: Anxiety disorder ; Recorder: ERIKA AKERS APRN-INT; Confirmation: Confirmed ; Classification: Medical ; Code: [id number] ; Contributor System: Straker Translations ; Last Updated: 04/22/2014 0:56 EST ; Life Cycle Date: 04/22/2014 ; Life Cycle Status: Active ; Responsible Provider: ERIKA AKERS APRN-INT; Vocabulary: SNOMED CT At risk for sleep apnea (IMO :98633763 ) Name of Problem: At risk for sleep apnea ; Recorder: SYSTEM, SYSTEM; Confirmation: Confirmed ; Classification: Medical ; Code: [id number] ; Last Updated: 09/08/2020 8:44 EDT ; Life Cycle Date: 09/08/2020 ; Life Cycle Status: Active ; Vocabulary: IMO Chest pain with high risk for cardiac etiology (SNOMED CT :09109811 ) Name of Problem: Chest pain with high risk for cardiac etiology ; Recorder: ERIKA AKERS APRN-INT; Confirmation: Confirmed ; Classification: Medical ; Code: [id number] ; Contributor System: [employer] Translations ; Last Updated: 04/22/2014 0:56 EST ; Life Cycle Status: Active ; Responsible Provider: ERIKA AKERS APRN-INT; Vocabulary: SNOMED CT Esophagus cancer (SNOMED CT :058694735 ) Name of Problem: Esophagus cancer ; Recorder: JUVE GILBERT Rn-Clinical Coordinator I; Confirmation: Confirmed ; Classification: Patient Stated ; Code: [id number] ; Contributor System: RidleyChart ; Last Updated: 09/08/2020 8:36 EDT ; Life Cycle Date: 09/08/2020 ; Life Cycle Status: Active ; Vocabulary: SNOMED CT Hyperlipidemia (SNOMED CT :49010282 ) Name of Problem: Hyperlipidemia ; Recorder: ERIKA BOYER MD-EMR; Confirmation: Confirmed ; Classification: Medical ; Code: [id number] ; Contributor System: [employer]leyChart ; Last Updated: 04/21/2014 20:55 EST ; Life Cycle Date: 04/21/2014 ; Life Cycle Status: Active ; Responsible Provider: ERIKA BOYER MD-EMR; Vocabulary: SNOMED CT Leg neuralgia (SNOMED CT :05421996 ) Name of Problem: Leg neuralgia ; Recorder: ERIKA AKERS APRN-INT; Confirmation: Confirmed ; Classification: Medical ; Code: [id number] ; Contributor System: [employer]leyChart ; Last Updated: 04/22/2014 0:56 EST ; Life Cycle Date: 04/22/2014 ; Life Cycle Status: Active ; Responsible Provider: AKERS, ERIKA BOBBY, CRAFT SUPERINTENDENT-INT; Vocabulary: SNOMED CT Myocardial infarction (SNOMED CT :44407954 ) Name of Problem: Myocardial infarction ; Recorder: JUVE GILBERT Rn-Clinical Coordinator I; Confirmation: Confirmed ; Classification: Patient Stated ; Code: 39867508 ; Contributor System: Straker Translations ; Last Updated: 09/08/2020 8:36 EDT ; Life Cycle Date: 09/08/2020 ; Life Cycle Status: Active ; Vocabulary: SNOMED CT Diagnoses(Active) Abdominal pain Date: 09/22/2020 ; Diagnosis Type: Reason For Visit ; Confirmation: Complaint of ; Clinical Dx: Abdominal pain ; Classification: Medical ; Clinical Service: Non-Specified ; Code: PNED ; Probability: 0 ; Diagnosis Code: [id number] ED Height and Weight Height Source : Stated Height Entry Format : [place] Height, Feet : 6 ft(Converted to: 183 cm, 72 Inch) Height, Inches : 0 Inch(Converted to: 0 ft 0 Inch, 0.00 cm) Clinical Height : 182.88 cm Weight Source, ED : Critical estimated dosing weight Weight Entry Format : [place] Weight, Pounds : 175 lb Clinical Dosing Weight : 79.55 kg Body Surface Area (BSA) : 2.01 m2 Body Mass Index : 23.8 kg/m2 [place] Body Weight (IBW) : 76.59 kg Anu [...] Description 05/25/2025 10:45 AM EDT Office Visit [facility] - [place] [address] [place] [address] Jalen Enciso MD [address] [facility] [address] [place] [address] documented as of this encounter Visit Diagnoses Not on filedocumented in this encounter Care Teams Field Nurse Relationship Specialty Start Date End Date Kaylene Brooke MD [address] [place] [address] PCP - General General Internal Medicine 01/27/22 Farooq Marcus MD [address] [place] [address] PCP - General Family Medicine 02/27/22 documented as of this encounter
--- OUTSIDE RECORDS SUMMARY | 2024-12-22 08:48 | XMS_ITS | Encounter Summary ---
Author Organization [employer] ([place], [place], [place], [place]) Address [address] [place] [address] Care Team Providers Care Mine Foreman Name Role Phone Kaylene Brooke MD Primary Care Provider [phone] Farooq Marcus MD Primary Care Provider [phone] Encounter Details Date Type Department Care Team (Late st Contact Info) Description 10/09/2020 Transcribed Document [facility] [place] [address] ProviderRayray MD [address] [place] [address] Social History Tobacco Use Types Packs/Day Years [...] Description 05/25/2025 10:45 AM EDT Office Visit [facility] - [place] [address] [place] [address] Jalen Enciso MD [address] [place] [address] documented as of this encounter Visit Diagnoses Not on filedocumented in this encounter Care Teams Mine Foreman Relationship Specialty Start Date End Date Kaylene Brooke MD [address] [place] [address] PCP - General General Internal Medicine 01/27/22 Farooq Marcus MD [address] [place] [address] PCP - General Family Medicine 02/27/22 documented as of this encounter
--- OUTSIDE RECORDS SUMMARY | 2024-12-22 08:48 | XMS_ITS | Encounter Summary ---
Author Organization [employer] ([place], [place], [place], [place]) Address [address] [place] [address] Care Team Providers Care Welding Equipment Sales Representative Name Role Phone Kaylene Brooke MD Primary Care Provider [phone] Farooq Marcus MD Primary Care Provider [phone] Encounter Details Date Type Department Care Team (Late st Contact Info) Description 10/09/2020 Transcribed Document [facility] [place] [address] [place] [address] ProviderRayray MD [address] [place] [address] Social History Tobacco Use Types Packs/Day Years [...] Communication Barrier : None Primary Language : Kittitian Any Spiritual/Cultural Needs or Requests : No [...] Description 05/25/2025 10:45 AM EDT Office Visit [facility] - [place] [address] [place] [address] Jalen Enciso MD [address] [address] [place] [address] documented as of this encounter Visit Diagnoses Not on filedocumented in this encounter Care Teams Welding Equipment Sales Representative Relationship Specialty Start Date End Date Kaylene Brooke MD [address] [place] [address] PCP - General General Internal Medicine 01/27/22 Farooq Marcus MD [address] [place] [address] PCP - General Family Medicine 02/27/22 documented as of this encounter
--- OUTSIDE RECORDS SUMMARY | 2024-12-22 08:48 | XMS_ITS | Encounter Summary ---
Author Organization [employer] ([place], [place], [place], [place]) Address [address] [place] [address] Care Team Providers Care Extension Work Instructor Name Role Phone Kaylene Brooke MD Primary Care Provider [phone] Farooq Marcus MD Primary Care Provider [phone] Encounter Details Date Type Department Care Team (Late st Contact Info) Description 10/09/2020 Transcribed Document [facility] [place] [facility] [place] [address] ProviderRayray MD [address] [place] [address] Social History Tobacco Use Types Packs/Day Years [...] in wound bed presentation noted please contact [facility] department. Nora Guillen, Rn-Enterostomal - 10/11/2020 7:25 EDT Electronically signed by [facility], [facility] Conversion Rn Resource Nurse Cerner at 06/29/2022 2:41 PM CDT documented in this encounter Plan of Treatment Upcoming Encounters Date Type Department Care Team (Late st Contact Info) Description 05/25/2025 10:45 AM EDT Office Visit [facility] - [address] [place] [address] Jalen Enciso MD [address] [facility] [address] [place] [address] documented as of this encounter Visit Diagnoses Not on filedocumented in this encounter Care Teams Extension Work Instructor Relationship Specialty Start Date End Date MendyKaylene MD [address] [place] [address] PCP - General General Internal Medicine 01/27/22 Farooq Marcus MD [address] [place] [address] PCP - General Family Medicine 02/27/22 documented as of this encounter
--- OUTSIDE RECORDS SUMMARY | 2024-12-22 08:48 | XMS_ITS | Encounter Summary ---
Author Organization [employer] ([place], [place], [place], [place]) Address [address] [place] [address] Care Team Providers Care Project Systems Engineer Name Role Phone Kaylene Brooke MD Primary Care Provider [phone] Farooq Marcus MD Primary Care Provider [phone] Encounter Details Date Type Department Care Team (Late st Contact Info) Description 10/12/2020 Transcribed Document [facility] [place] Medicine [address] [place] [address] ProviderRayray MD [address] [place] [address] Social History Tobacco Use Types Packs/Day Years Used Date Smoking Tobacco: Never Assessed Sex and Gender Information Value Date Recorded Sex Assigned at Not on file Legal Sex Male 5:14 PM CDT Gender Identity Not on file Sexual Orientation Not on file documented as of this encounter Miscellaneous Notes * Cerner Conversion Note - Rayray ProviderMD - 10/12/2020 8:00 AM CDT [facility] Endo PreOp Summary Primary Physician: NATE KINNEY MD Finalized Date/Time: 10/12/20 07:57:26 Pt. Name: DOYLE DEL ANGEL Jesse Leal/Sex: 1935 Male Med Rec #: [id number] Physician: PARKER RAVI MD-INT Financial #: [id number] Pt. Type: I Room/Bed: [facility]/ Admit/Disch: 10/10/20 10:58:00 - Institution: [facility] Endo PreOp Case Times Entry 1 In Preop 10/12/20 07:49:00 Ready for Holding n/a Room Patient Ready for 10/12/20 07:59:00 Surgery Patient Out of Preop 10/12/20 07:59:00 Patient Out of n/a Holding Room Last Modified By: Celeste Rich Rn 10/12/20 07:57:23 [facility] Endo PreOp Case Times Audit 10/12/20 07:57:23 Surgical Services Asst: MFWARD Modifier: MFWARD <+> 1 Patient Out of Preop <+> 1 Patient Ready for Surgery Finalized By: Celeste Rich, Rn Document Signatures Signed By: Celeste Rich Rn 10/12/20 07:57 Electronically signed by Nidia [facility] Conversion Cube Machine Tender Cerner at 06/29/2022 2:35 PM CDT documented in this encounter Plan of Treatment Upcoming Encounters Date Type Department Care Team (Late st Contact Info) Description 05/25/2025 10:45 AM EDT Office Visit [facility] - [place] [address] [place] [address] Jalen Enciso MD [address] [place] [address] documented as of this encounter Visit Diagnoses Not on filedocumented in this encounter Care Teams Project Systems Engineer Relationship Specialty Start Date End Date Kaylene Brooke MD [address] [place] [address] PCP - General General Internal Medicine 01/27/22 Farooq Marcus MD [address] [place] [place] [address] PCP - General Family Medicine 02/27/22 documented as of this encounter
--- OUTSIDE RECORDS SUMMARY | 2024-12-22 08:48 | XMS_ITS | Encounter Summary ---
Author Organization [employer] ([place], [place], [place], [place]) Address [address] [place] [address] Care Team Providers Care Wheel Cutter Name Role Phone Kaylene Brooke MD Primary Care Provider [phone] Farooq Marcus MD Primary Care Provider [phone] Encounter Details Date Type Department Care Team (Late st Contact Info) Description 10/12/2020 Transcribed Document [facility] [place] [address] [place] [address] ProviderRayray MD [address] [place], [place] [address] Social History Tobacco Use Types Packs/Day Years [...] Description 05/25/2025 10:45 AM EDT Office Visit [facility] [place] [facility] - [place] [address] [facility] [address] [place] [address] Jalen Enciso MD [address] [facility] [address] [place] [address] documented as of this encounter Visit Diagnoses Not on filedocumented in this encounter Care Teams Wheel Cutter Relationship Specialty Start Date End Date Kaylene Brooke MD [address] [place] [address] PCP - General General Internal Medicine 01/27/22 Farooq Marcus MD [address] [place] [address] PCP - General Family Medicine 02/27/22 documented as of this encounter
--- OUTSIDE RECORDS SUMMARY | 2024-12-22 08:48 | XMS_ITS | Encounter Summary ---
Author Organization [employer] ([place], [place], [place], [place]) Address [address] [place] [address] Care Team Providers Care Medical Collections Representative Name Role Phone Kaylene Brooke MD Primary Care Provider [phone] Faroqo Marcus MD Primary Care Provider [phone] Encounter Details Date Type Department Care Team (Late st Contact Info) Description 10/12/2020 Transcribed Document [facility] [place] [facility] [place] [address] ProviderRayray MD [address] [place] [address] Social History Tobacco Use Types Packs/Day Years [...] Diagnostic Results Radiology Results (Last 48 hours) [id number] -- 10/10/2020 10:58 CT Head WO W [...] Description 05/25/2025 10:45 AM EDT Office Visit [facility] [facility] - [place] [place] [address] Jalen Enciso MD [address] [place] [address] documented as of this encounter Visit Diagnoses Not on filedocumented in this encounter Care Teams Medical Collections Representative Relationship Specialty Start Date End Date Kaylene Brooke MD [address] [place] [address] PCP - General General Internal Medicine 01/27/22 Farooq Marcus MD [address] [facility] [place] [address] PCP - General Family Medicine 02/27/22 documented as of this encounter
--- OUTSIDE RECORDS SUMMARY | 2024-12-22 08:48 | XMS_ITS | Encounter Summary ---
Author Organization [employer] ([place], [place], [place], [place]) Address [address] [place] [address] Care Team Providers Care Carpenter Packing Name Role Phone Kaylene Brooke MD Primary Care Provider [phone] Farooq Marcus MD Primary Care Provider [phone] Encounter Details Date Type Department Care Team (Late st Contact Info) Description 10/12/2020 Transcribed Document [facility] [place] Family Medicine [address] [place] [address] ProviderRayray MD [address] [place], [place] [address] Social History Tobacco Use Types Packs/Day Years Used Date Smoking Tobacco: Never Assessed Sex and Gender Information Value Date Recorded Sex Assigned at Not on file Legal Sex Male 5:14 PM CDT Gender Identity Not on file Sexual Orientation Not on file documented as of this encounter Miscellaneous Notes * Cerner Conversion Note - Rayray ProviderMD - 10/12/2020 2:00 AM CDT Engineering Lecturer Details Entered On: 10/12/2020 1:13 EDT Performed [...] Description 05/25/2025 10:45 AM EDT Office Visit [facility] [facility] - [place] [place] [address] Jalen Enciso MD [address] [place] [address] documented as of this encounter Visit Diagnoses Not on filedocumented in this encounter Care Teams Carpenter Packing Relationship Specialty Start Date End Date MendyKaylene dunn MD [address] [place] [address] PCP - General General Internal Medicine 01/27/22 Farooq Marcus MD [address] [facility] [place] [address] PCP - General Family Medicine 02/27/22 documented as of this encounter
--- OUTSIDE RECORDS SUMMARY | 2024-12-22 08:48 | XMS_ITS | Encounter Summary ---
Author Organization [employer] ([place], [place], [place], [place]) Address [address] [place] [address] Care Team Providers Care Housekeeping Aide Name Role Phone Kaylene Brooke MD Primary Care Provider [phone] Farooq Marcus MD Primary Care Provider [phone] Encounter Details Date Type Department Care Team (Late st Contact Info) Description 10/09/2020 Transcribed Document [facility] [place] [facility] [place] [address] ProviderRayray MD [address] [place], [place] [address] Social History Tobacco Use Types Packs/Day Years [...] 10/09/2020 18:36 EDT Electronically signed by Nidia [facility] Conversion Drapery Estimator Cerner at 06/29/2022 2:23 PM CDT documented in this encounter Plan of Treatment Upcoming Encounters Date Type Department Care Team (Late st Contact Info) Description 05/25/2025 10:45 AM EDT Office Visit [facility] [facility] - [address] [place] [address] Jalen Enciso MD [address] [place] [address] documented as of this encounter Visit Diagnoses Not on filedocumented in this encounter Care Teams Housekeeping Aide Relationship Specialty Start Date End Date Kaylene Brooke MD [address] [place] [address] PCP - General General Internal Medicine 01/27/22 Farooq Marcus MD [address] [facility] [place] [address] PCP - General Family Medicine 02/27/22 documented as of this encounter
--- OUTSIDE RECORDS SUMMARY | 2024-12-22 08:49 | XMS_ITS | Encounter Summary ---
Author Organization [employer] ([place], [place], [place], [place]) Address [address] [place] [address] Care Team Providers Care Telephone Mechanic Name Role Phone Kaylene Brooke MD Primary Care Provider [phone] Farooq Marcus MD Primary Care Provider [phone] Encounter Details Date Type Department Care Team (Late st Contact Info) Description 09/24/2020 Transcribed Document [facility] [place] [address] [place] [address] ProviderRayray MD [address] [place], [place] [address] Social History Tobacco Use Types Packs/Day Years [...] 0.9% 250 mL 1,250 mg, IV Piggyback, [id number] Continuous: (1) NaCl 0.9% 1,000 mL 1,000 [...] Description 05/25/2025 10:45 AM EDT Office Visit [place] [facility] - [address] [place] [address] Jalen Enciso MD [address] [place] [address] documented as of this encounter Visit Diagnoses Not on filedocumented in this encounter Care Teams Telephone Mechanic Relationship Specialty Start Date End Date Kaylene Brooke MD [address] [place] [address] PCP - General General Internal Medicine 01/27/22 Farooq Marcus MD [address] [facility] [place] [address] PCP - General Family Medicine 02/27/22 documented as of this encounter
--- OUTSIDE RECORDS SUMMARY | 2024-12-22 08:49 | XMS_ITS | Encounter Summary ---
Author Organization [employer] ([place], [place], [place], [place]) Address [address] [place] [address] Care Team Providers Care Digital Media Associate Name Role Phone Kaylene Brooke MD Primary Care Provider [phone] Farooq Marcus MD Primary Care Provider [phone] Encounter Details Date Type Department Care Team (Late st Contact Info) Description 10/12/2020 Transcribed Document [facility] [place] [address] ProviderRayray MD [address] [place], [place] [address] Social History Tobacco Use Types Packs/Day Years [...] 10/12/2020 17:05 EDT Electronically signed by Nidia [facility] Conversion Edger Saw Operator Cerner at 06/29/2022 2:20 PM CDT documented in this encounter Plan of Treatment Upcoming Encounters Date Type Department Care Team (Late st Contact Info) Description 05/25/2025 10:45 AM EDT Office Visit [facility] - [address] [place] [address] Jalen Enciso MD [address] [place] [address] documented as of this encounter Visit Diagnoses Not on filedocumented in this encounter Care Teams Digital Media Associate Relationship Specialty Start Date End Date Kaylene Brooke MD [address] [place] [address] PCP - General General Internal Medicine 01/27/22 Farooq Marcus MD [address] [facility] [place] [address] PCP - General Family Medicine 02/27/22 documented as of this encounter
--- OUTSIDE RECORDS SUMMARY | 2024-12-22 08:49 | XMS_ITS | Encounter Summary ---
Author Organization [employer] ([place], [place], [place], [place]) Address [address] [place] [address] Care Team Providers Care Preparation Room Manager Name Role Phone Kaylene Brooke MD Primary Care Provider [phone] Farooq Marcus MD Primary Care Provider [phone] Encounter Details Date Type Department Care Team (Late st Contact Info) Description 09/25/2020 Transcribed Document [facility] [place] [address] [place] [address] ProviderRayray MD [address] [place], [place] [address] Social History Tobacco Use Types Packs/Day Years [...] with dr topete done at [facility] -pt stopped taking brilinta on his own accord shortly after the PCI as it was making him sob -on aspirin 81 mg daily. plavix started here syncope 2 weeks ago two weeks prior to admission, was at [facility] for this stay. depression -start on antidepressant last week with dr enciso -pt and unsure what medication this was. 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 -follows with dr topete and dr CO[facility] in [facility] [place]: Hope to advance diet tomorrow VTE Prophylaxis [...] ALYC # 0 K/uL 09/25/2020 05:50 EDT [place] Percent Man 6 % (High) 09/25/2020 05:50 EDT Eos Percent Man 1 % 09/25/2020 05:50 EDT RBC Morphology Abnormal 09/25/2020 05:50 EDT Ovalocytes 1+ (Abnormal) 09/25/2020 05:[address] Estimate Decreased (Abnormal) 09/25/2020 05:50 EDT Slide Review Add Diff 09/25/2020 05:50 EDT Procalcitonin 8.54 ng/mL (High) 09/25/2020 05:50 EDT Electronically signed by Malina Jacob Conversion Men'S Leather Dress Belt Maker Cerner at 06/29/2022 2:31 PM CDT documented in this encounter Plan of Treatment Upcoming Encounters Date Type Department Care Team (Late st Contact Info) Description 05/25/2025 10:45 AM EDT Office Visit [place] [facility] - [address] [place] [address] Jalen Enciso MD [address] [facility] [address] [place] [address] documented as of this encounter Visit Diagnoses Not on filedocumented in this encounter Care Teams Preparation Room Manager Relationship Specialty Start Date End Date Kaylene Brooke MD [address] [place] [address] PCP - General General Internal Medicine 01/27/22 Farooq Marcus MD [address] [place] [address] PCP - General Family Medicine 02/27/22 documented as of this encounter
--- OUTSIDE RECORDS SUMMARY | 2024-12-22 08:49 | XMS_ITS | Encounter Summary ---
Author Organization [employer] ([place], [place], [place], [place]) Address [address] [place] [address] Care Team Providers Care Volcanology Teacher Name Role Phone Kaylene Brooke MD Primary Care Provider [phone] Farooq Marcus MD Primary Care Provider [phone] Encounter Details Date Type Department Care Team (Late st Contact Info) Description 09/25/2020 Transcribed Document [facility] [place] [address] [place] [address] ProviderRayray MD [address] [place], [place] [address] Social History Tobacco Use Types Packs/Day Years [...] Description 05/25/2025 10:45 AM EDT Office Visit [place] [facility] - [place] [place] [address] Jalen Enciso MD [address] [facility] [address] [place] [address] documented as of this encounter Visit Diagnoses Not on filedocumented in this encounter Care Teams Volcanology Teacher Relationship Specialty Start Date End Date Kaylene Brooke MD [address] [place] [address] PCP - General General Internal Medicine 01/27/22 Farooq Marcus MD [address] [place] [address] PCP - General Family Medicine 02/27/22 documented as of this encounter
--- OUTSIDE RECORDS SUMMARY | 2024-12-22 08:49 | XMS_ITS | Encounter Summary ---
Author Organization [employer] ([place], [place], [place], [place]) Address [address] [place] [address] Care Team Providers Care Reporting Developer Name Role Phone Kaylene Brooke MD Primary Care Provider [phone] Farooq Marcus MD Primary Care Provider Encounter Details Date Type Department Care Team (Late st Contact Info) Description 10/11/2020 Transcribed Document [facility] [place] [facility] [place] [address] ProviderRayray MD [address] [place] [address] Social History Tobacco Use Types Packs/Day Years [...] 10/11/2020 8:51 EDT by Mariangel Davis Patient Engine Watchman I Phone Call for Consults Consult Phone Call/Page Attempt : Other: spoike with ernesto Consult Reason : anorexia, early satiety. ?EGD Physician Requesting Consult : JALEN ENCISO MD-ONC Physician Requested for Consult : PREETI BENJAMIN MD-GAJesse Provider Service Notified Name : Gastroenterology Date and Time Call Returned : 10/11/2020 10:08 EDT Ryan, Mariangel, Patient Engine Watchman I - 10/11/2020 10:06 EDT documented in this encounter Plan of Treatment Upcoming Encounters Date Type Department Care Team (Late st Contact Info) Description 05/25/2025 10:45 AM EDT Office Visit [place] [facility] [place] [address] [facility] [address] [place] [address] Jalen Enciso MD [address] [place] [address] documented as of this encounter Visit Diagnoses Not on filedocumented in this encounter Care Teams Reporting Developer Relationship Specialty Start Date End Date Kaylene Brooke MD [address] [place] [address] PCP - General General Internal Medicine 01/27/22 Farooq Marcus MD [address] [place] [address] PCP - General Family Medicine 02/27/22 documented as of this encounter
--- OUTSIDE RECORDS SUMMARY | 2024-12-22 08:49 | XMS_ITS | Encounter Summary ---
Author Organization [employer] ([place], [place], [place], [place]) Address [address] [place] [address] Care Team Providers Care Parking Meter Servicer Name Role Phone Kaylene Brooke MD Primary Care Provider [phone] Farooq Marcus MD Primary Care Provider [phone] Encounter Details Date Type Department Care Team (Late st Contact Info) Description 10/12/2020 Transcribed Document [facility] [place] [facility] [place] [address] Rayray San MD [address] [place] [address] Social History Tobacco Use Types Packs/Day Years [...] ALBERTO DANG MD-ANS (Anesthesiologist of Record) ALBERTO DANG [...] 08:09:00 (10/12/20 08:12:35) Electronically signed by Nidia, [facility] Conversion Instrumentation Manager Cerner at 06/29/2022 2:11 PM CDT documented in this encounter Plan of Treatment Upcoming Encounters Date Type Department Care Team (Late st Contact Info) Description 05/25/2025 10:45 AM EDT Office Visit [place] [facility] - [place] [address] [place] [address] Jalen Enciso MD [address] [facility] [address] [place] [address] documented as of this encounter Visit Diagnoses Not on filedocumented in this encounter Care Teams Parking Meter Servicer Relationship Specialty Start Date End Date Kaylene Brooke MD [address] [place] [address] PCP - General General Internal Medicine 01/27/22 Farooq Marcus MD [address] [place] [address] PCP - General Family Medicine 02/27/22 documented as of this encounter
--- OUTSIDE RECORDS SUMMARY | 2024-12-22 08:49 | XMS_ITS | Encounter Summary ---
Author Organization [employer] ([place], [place], [place], [place]) Address [address] [place] [address] Care Team Providers Care Investments Manager Name Role Phone Kaylene Brooke MD Primary Care Provider Farooq Marcus MD Primary Care Provider [phone] Encounter Details Date Type Department Care Team (Late st Contact Info) Description 10/12/2020 Transcribed Document [facility] [place] Family Medicine [facility] [place] [address] ProviderRayray MD [address] [place], [place] [address] Social History Tobacco Use Types Packs/Day Years [...] Elidia Marie Lpn - 10/12/2020 5:51 EDT Electronically signed by B[employer] Jacob Conversion Housing And Residence Life Director Cerner at 06/29/2022 2:41 PM CDT documented in this encounter Plan of Treatment Upcoming Encounters Date Type Department Care Team (Late st Contact Info) Description 05/25/2025 10:45 AM EDT Office Visit [place] [facility] - [address] [place] [address] Jalen Enciso MD [address] [place] [address] documented as of this encounter Visit Diagnoses Not on filedocumented in this encounter Care Teams Investments Manager Relationship Specialty Start Date End Date Kaylene Brooke MD [address] [place] [address] PCP - General General Internal Medicine 01/27/22 Farooq Marcus MD [address] [facility] [place] [address] PCP - General Family Medicine 02/27/22 documented as of this encounter
--- OUTSIDE RECORDS SUMMARY | 2024-12-22 08:49 | XMS_ITS | Encounter Summary ---
Author Organization [employer] ([place], [place], [place], [place]) Address [address] [place] [address] Care Team Providers Care Baseball Hand Sewer Name Role Phone Farooq Marcus MD Primary Care Provider [phone] Reason for Visit * Reason Onset Date Comments Appointment 12/17/2024 Encounter Details Date Type Department Care Team (Late st Contact Info) Description 12/17/2024 Telephone [place] [facility] - [facility] [address] [facility] [address] [place] [address] Jalen Enciso MD [address] [place] [address] Appointment Social History Tobacco Use [...] Date Scotty rded Speak language other than Nigerian at home Not on file 03/22/2023 Want [...] 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 Juarez's office called back. He reports that he is unsure why pt's why says that he needs to come back in and see Dr. Enciso. He says that the CT showed mild thickening of the esophagusand thus would like him seen by Dr. Marshall with gastroenterology. Returned call to pt's and informed her of this, she is going to reach out to Dr. Soto's office, she verbalized understanding. * Telephone Encounter - Artem San RN - 12/17/2024 3:09 PM EDT Received pt's office note from Dr. Juarez's office 12/09/24, however no indication as to why pt is needing follow up with Dr. Enciso soon. I returned call to [facility] and asked for imaging and lab reports that looked like was ordered on 12/09 and if someone could call back to explain why pt needs to be seen. * Telephone Encounter - Artem San RN - 12/17/2024 11:18 AM EDT Pt's Brandee called stating that Dr. Juarez called them yesterday and said that pt needs to have follow up with Dr. Enciso. Called Dr. Juarez's office and left a voicemail to request pt's most recent office note for review. Returned call to pt's and she says that pt went to see Dr. Juarez on 12/09 because the pt has not had any energy and it was easier for them to go to him in [place]. Pt has been having issues with swallowing. Per pt's she reports that Dr. Juarez contacted them yesterday and says that he needs a test, or had a test, and that he could have sickle cell. Will wait to receive records from Dr. Juarez's office and schedule pt appropriately. documented in this encounter Plan of Treatment Upcoming Encounters Date Type Department Care Team (Late st Contact Info) Description 05/25/2025 10:45 AM EDT Office Visit [place] [facility] [address] [facility] [address] [place] [address] Jalen Enciso MD [address] [facility] [address] [place] [address] documented as of this encounter Visit Diagnoses Not on filedocumented in this encounter Care Teams Baseball Hand Sewer Relationship Specialty Start Date End Date Farooq Marcus MD [address] [place] [address] PCP - General Family Medicine 02/27/22 documented as of this encounter
--- OUTSIDE RECORDS SUMMARY | 2024-12-22 08:49 | XMS_ITS | Encounter Summary ---
Author Organization [employer] ([place], [place], [place], [place]) Address [address] [place] [address] Care Team Providers Care Tubing Oiler Name Role Phone Farooq Marcus MD Primary Care Provider [phone] Reason for Referral * MRI (Routine) - Closed Specialty Diagnoses / Procedures Referred By Contac t Referred To Contact Radiology Diagnoses Pain in thoracic spine Procedures MR thoracic spine without IV contrast Christian Ramsey Jr., MD [address] [place] [address] Phone: tel: fax: Referral ID Status Reason Start Date Expiration Date Visits Re quested Visits Authorized [id number] Closed 03/30/2022 09/26/2022 1 1 * MRI (Routine) - Closed Specialty Diagnoses / Procedures Referred By Contac t Referred To Contact Radiology Diagnoses Low back pain, unspecified back pain laterality, unspecified chronicity, unspecified whether sciatica present Procedures MR spine lumbar without IV contrast Christian Ramsey Jr., MD [address] [place] [address] Phone: tel: fax: Referral ID Status Reason Start Date Expiration Date Visits Re quested Visits Authorized [id number] Closed 03/30/2022 09/26/2022 1 1 Encounter Details Date Type Department Care Team (Late st Contact Info) Description 03/30/2022 Outside Orders [facility] Central Scheduling [address] [place] [address] Christian Ramsey Jr., MD [address] [place], [place] [id number] Low back pain, unspecified back pain laterality, [...] 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 Bojorquez. Transcribed by hCapis Schuster PA-C. us Christian Ramsey Jr., MD [...] present documented in this encounter Care Teams Tubing Oiler Relationship Specialty Start Date End Date Farooq Marcus MD [address] [place], [place] [address] PCP - General Family Medicine 02/27/22 documented as of this encounter
--- OUTSIDE RECORDS SUMMARY | 2024-12-22 08:49 | XMS_ITS | Encounter Summary ---
Author Organization [employer] ([place], [place], [place], [place]) Address [address] [place] [address] Care Team Providers Care Art Specialist Name Role Phone Kaylene Brooke MD Primary Care Provider [phone] Farooq Marcus MD Primary Care Provider [phone] Encounter Details Date Type Department Care Team (Late st Contact Info) Description 10/12/2020 Transcribed Document [facility] [place] Family Medicine [address] [place] [address] ProviderRayray MD [address] [place], [place] [address] Social History Tobacco Use Types Packs/Day Years [...] to 150mg Malnourished -secondary to N&V, consult lumber buyer -Multifactorial given the patient has cancer and [...] PA 10/11/2020 09:36 EDT Electronically signed by [facility], [facility] Conversion Harvest Manager Cerner at 06/29/2022 2:14 PM CDT documented in this encounter Plan of Treatment Upcoming Encounters Date Type Department Care Team (Late st Contact Info) Description 05/25/2025 10:45 AM EDT Office Visit [place] [facility] [address] [facility] [address] [place] [address] Jalen Enciso MD [address] [facility] [address] [place] [address] documented as of this encounter Visit Diagnoses Not on filedocumented in this encounter Care Teams Art Specialist Relationship Specialty Start Date End Date Kaylene Brooke MD [address] [place] [address] PCP - General General Internal Medicine 01/27/22 Farooq Marcus MD [address] [place] [address] PCP - General Family Medicine 02/27/22 documented as of this encounter
--- OUTSIDE RECORDS SUMMARY | 2024-12-22 08:49 | XMS_ITS | Encounter Summary ---
Author Organization [employer] ([place], [place], [place], [place]) Address [address] [place] [address] Care Team Providers Care Security Control Center Operator Name Role Phone Kaylene Brooke MD Primary Care Provider [phone] Farooq Marcus MD Primary Care Provider [phone] Encounter Details Date Type Department Care Team (Late st Contact Info) Description 10/13/2020 Transcribed Document [facility] [place] Family Medicine [facility] [place] [address] ProviderRayray MD [address] [place] [address] Social History Tobacco Use Types Packs/Day Years [...] Date 10/13/2020 Primary Care Provider MAZIN SHERIDAN [facility] Discharge Diagnosis Severe protein-calorie malnutrition 10/13/2020 E43 [...] Disposition Home Discharge Follow Up MAZIN SHERIDAN [facility] - Within 1 week Discharge Medications (11) [...] tolerated Pending Labs In Process SENDOUT REPORT [id number], [id number], RT - Routine, 10/12/20 8:12:00 EDT Pathology Tissue Request [id number], [id number], 10/12/20 8:12:00 EDT, Collected, RT - Routine, [...] Description 05/25/2025 10:45 AM EDT Office Visit [place] [facility] - [place] [facility] [address] [place] [address] Jalen Enciso MD [address] [place] [address] documented as of this encounter Visit Diagnoses Not on filedocumented in this encounter Care Teams Security Control Center Operator Relationship Specialty Start Date End Date Kaylene Brooke MD [address] [place] [address] PCP - General General Internal Medicine 01/27/22 Farooq Marcus MD [address] [place] [address] PCP - General Family Medicine 02/27/22 documented as of this encounter
--- OUTSIDE RECORDS SUMMARY | 2024-12-22 08:49 | XMS_ITS | Encounter Summary ---
Author Organization [employer] ([place], [place], [place], [place]) Address [address] [place] [address] Care Team Providers Care Engine Lathe Set Up Operator Name Role Phone Kaylene Brooke MD Primary Care Provider [phone] Farooq Marcus MD Primary Care Provider Encounter Details Date Type Department Care Team (Late st Contact Info) Description 10/13/2020 Transcribed Document [facility] [place] [facility] [place] [address] ProviderRayray MD [address] [place] [address] Social History Tobacco Use Types Packs/Day Years [...] Description 05/25/2025 10:45 AM EDT Office Visit [place] [facility] - [place] [address] [place] [address] Jalen Enciso MD [address] [place] [address] [place] [address] documented as of this encounter Visit Diagnoses Not on filedocumented in this encounter Care Teams Engine Lathe Set Up Operator Relationship Specialty Start Date End Date MendyKayleen dunn MD [address] [place] [address] PCP - General General Internal Medicine 01/27/22 Farooq Marcus MD [address] [place] [address] PCP - General Family Medicine 02/27/22 documented as of this encounter
--- OUTSIDE RECORDS SUMMARY | 2024-12-22 08:49 | XMS_ITS | Encounter Summary ---
Author Organization [employer] ([place], [place], [place], [place]) Address [address] [place] [address] Care Team Providers Care Supervisor Customer Records Division Name Role Phone Kaylene Brooke MD Primary Care Provider [phone] Farooq Marcus MD Primary Care Provider [phone] Encounter Details Date Type Department Care Team (Late st Contact Info) Description 10/13/2020 Transcribed Document [facility] [place] Family [place] [address] ProviderRayray MD [address] [place] [address] Social History Tobacco Use Types Packs/Day Years Used Date Smoking Tobacco: Never Assessed Sex and Gender Information Value Date Recorded Sex Assigned at Not on file Legal Sex Male 5:14 PM CDT Gender Identity Not on file Sexual Orientation Not on file documented as of this encounter Miscellaneous Notes * Cerner Conversion Note - Rayray ProviderMD - 10/13/2020 2:00 AM CDT Adjunct Phlebotomy Instructor Details Entered On: 10/13/2020 2:25 EDT Performed [...] Description 05/25/2025 10:45 AM EDT Office Visit [place] [facility] - [place] [address] [place] [address] Jalen Enciso MD [address] [place] [address] documented as of this encounter Visit Diagnoses Not on filedocumented in this encounter Care Teams Supervisor Customer Records Division Relationship Specialty Start Date End Date Kaylene Brooke MD [address] [place] [address] PCP - General General Internal Medicine 01/27/22 Farooq Marcus MD [address] [place] [address] PCP - General Family Medicine 02/27/22 documented as of this encounter
--- OUTSIDE RECORDS SUMMARY | 2024-12-22 08:49 | XMS_ITS | Encounter Summary ---
Author Organization [employer] ([place], [place], [place], [place]) Address [address] [place] [address] Care Team Providers Care Director Of Community Life Name Role Phone Kaylene Brooke MD Primary Care Provider [phone] Farooq Marcus MD Primary Care Provider [phone] Encounter Details Date Type Department Care Team (Late st Contact Info) Description 10/13/2020 Transcribed Document [facility] [place] [facility] [place] [address] ProviderRayray MD [address] [place] [address] Social History Tobacco Use Types Packs/Day Years [...] On: 10/13/2020 11:09 EDT by Prachi Jesus, Caddy Patient Resource Center Provider Status : EST [...] at ED : Other Primary Language : Turkish Patient Resource [facility] Comment : Patient needs follow up appointments. Called offices and scheduled appointments with Dr. Enciso and Dr. Sheridan. Follow Up Needed : No Prachi Jesus, Caddy - 10/13/2020 11:09 EDT Electronically signed by [facility], [facility] Conversion Automotive Painter Helper Cerner at 06/29/2022 2:17 PM CDT documented in this encounter Plan of Treatment Upcoming Encounters Date Type Department Care Team (Late st Contact Info) Description 05/25/2025 10:45 AM EDT Office Visit [place] [facility] - [facility] [address] [facility] [address] [place] [address] Jalen Enciso MD [address] [place] [address] [place] [address] documented as of this encounter Visit Diagnoses Not on filedocumented in this encounter Care Teams Director Of Community Life Relationship Specialty Start Date End Date Kaylene Brooke MD [address] [place] [address] PCP - General General Internal Medicine 01/27/22 Farooq Marcus MD [address] [place] [address] PCP - General Family Medicine 02/27/22 documented as of this encounter
--- OUTSIDE RECORDS SUMMARY | 2024-12-22 08:49 | XMS_ITS | Encounter Summary ---
Author Organization [employer] ([place], [place], [place], [place]) Address [address] [place] [address] Care Team Providers Care Size Stamper Name Role Phone Kaylene Brooke MD Primary Care Provider [phone] Farooq Marcus MD Primary Care Provider [phone] Encounter Details Date Type Department Care Team (Late st Contact Info) Description 09/24/2020 Transcribed Document [facility] [place] Medicine Count [facility] [place] [address] ProviderRayray MD [address] [place], [place] [address] Social History Tobacco Use Types Packs/Day Years [...] On: 09/24/2020 16:38 EDT by ELIZABETH LAMBERT, MERA-Heel ReducerMiller Kiln Dried Salt Progress Note Discharge Arrangements : Patient Post-Acute Information Patient Name: DOYLE DEL ANGEL Gender: Male : [birth year] Age: 84 Years No Post-Acute Placement(s) Listed No Post-Acute Service(s) Listed No [place] Referral(s) Listed ELIZABETH LAMBERT, RN-Heel Reducer - 09/24/2020 16:38 EDT Narrative Progress Note Narrative Progress Note : rrs mod plans pending -augusto shannon previous charting :DCP: patient states he plans on going home with spouse, who will transport, therapy recommends home health and rolling walker at discharge and patient agrees to this if MD feels appropriate. CM will continue to follow. ELIZABETH LAMBERT, RN-Heel Reducer - 09/24/2020 16:38 EDT documented in this encounter Plan of Treatment Upcoming Encounters Date Type Department Care Team (Late st Contact Info) Description 05/25/2025 10:45 AM EDT Office [facility] [facility] [address] [facility] [address] [place] [address] Jalen Enciso MD [address] [facility] [address] [place] [address] documented as of this encounter Visit Diagnoses Not on filedocumented in this encounter Care Teams Size Stamper Relationship Specialty Start Date End Date MendyKaylene dunn MD [address] [place] [address] PCP - General General Internal Medicine 01/27/22 Farooq Marcus MD [address] [place] [address] PCP - General Family Medicine 02/27/22 documented as of this encounter
--- OUTSIDE RECORDS SUMMARY | 2024-12-22 08:50 | XMS_ITS | Encounter Summary ---
Author Organization [employer] ([place], [place], [place], [place]) Address [address] [place] [address] Care Team Providers Care Material Crew Supervisor Name Role Phone Kaylene Brooke MD Primary Care Provider [phone] Farooq Marcus MD Primary Care Provider [phone] Encounter Details Date Type Department Care Team (Late st Contact Info) Description 10/11/2020 Transcribed Document [facility] [place] Family Medicine [address] [place] [address] ProviderRayray MD [address] [place] [address] Social History Tobacco Use Types Packs/Day Years [...] On: 10/11/2020 14:42 EDT by Wily Dewitt, VICE PRESIDENT LENDING NON-EXEMPT Initial Assessment I Previously Documented Living Environment : No qualifying data available. Living Situation : Home with family care Patient Lives With : Spouse Is the Patient a Caregiver at Home? : No Emergency Contact #1 : -Dirk Del Angel Emergency Contact #1 Phone Number : -[phone] Emergency Contact #1 Relationship : -Spouse Emergency Contact #2 : - Emergency Contact #2 Phone Number : - Emergency Contact #2 Relationship : - Enter Doctors Name : Adiel Davis MD Does Patient have PCP Listed? : Yes Patient's Home Caregiver Name/Relationship : Dirk Del Angel/Spouse Medical Durable Power of Cement Patcher Name : No Legal Guardian : No Is Guardianship Needed : No Wily Dewitt VICE PRESIDENT LENDING NON-EXEMPT - 10/11/2020 14:42 EDT Initial Assessment II Sensory and Motor Deficits : Weakness Current Home Treatments and Equipment : None, Walker Wily Dewitt VICE PRESIDENT LENDING NON-EXEMPT - 10/11/2020 14:42 EDT Discharge Needs [...] Acute rehabilitation, Discharge transportation, DME, Home Health, retirement, Short term rehabilitation Patient Discharge Goal : Home Wily Dewitt VICE PRESIDENT LENDING NON-EXEMPT - 10/11/2020 14:42 EDT Narrative Note [...] Enciso for oncology & also sees a dual rate supervisor through [facility]. Pt lives with his in a private residence & is fairly independent with some family support. He was referred to [facility] last admission, but he is not homebound so they could not provide services. Pt & his state they are not interested in services as he needs to go for MD appointments & other treatments. He also states that he will discuss rehab placement with MDs before deciding on referrals. Pt prefers [facility] or [facility] if rehab is desired. He DOES [...] CM will continue to follow. Wily Dewitt, VICE PRESIDENT LENDING NON-EXEMPT - 10/11/2020 14:42 EDT documented in this encounter Plan of Treatment Upcoming Encounters Date Type Department Care Team (Late st Contact Info) Description 05/25/2025 10:45 AM EDT Office Visit [place] [facility] - [facility] [address] [facility] [address] [place] [address] Jalen Enciso MD [address] [facility] [address] [place] [address] documented as of this encounter Visit Diagnoses Not on filedocumented in this encounter Care Teams Material Crew Supervisor Relationship Specialty Start Date End Date Kaylene Brooke MD [address] [place] [address] PCP - General General Internal Medicine 01/27/22 Farooq Marcus MD [facility] [place] [address] PCP - General Family Medicine 02/27/22 documented as of this encounter
--- OUTSIDE RECORDS SUMMARY | 2024-12-22 08:50 | XMS_ITS | Encounter Summary ---
Author Organization [employer] ([place], [place], [place], [place]) Address [address] [place] [address] Care Team Providers Care Scheduling Manager Name Role Phone Kaylene Brooke MD Primary Care Provider [phone] Farooq Marcus MD Primary Care Provider [phone] Encounter Details Date Type Department Care Team (Late st Contact Info) Description 01/26/2021 Transcribed Document [facility] [place] Family Medicine [address] [place] [address] ProviderRayray MD [address] [place], [place] [id number] Social History Tobacco Use Types Packs/Day Years Used Date Smoking Tobacco: Never Assessed Sex and Gender Information Value Date Recorded Sex Assigned at Not on file Legal Sex Male 5:14 PM CDT Gender Identity Not on file Sexual Orientation Not on file documented as of this encounter Miscellaneous Notes * Cerner Conversion Note - Historical ProviderMD - 01/26/2021 9:01 AM MECHANIC SOUND TECHNICIAN Pre Procedure Adult Entered On: 01/26/2021 9:05 EST Performed On: 01/26/2021 9:01 EST by LATOYA MANDUJANO RN Height and Weight, Clinical Dosing Height Source : Stated Height Entry Format : [place] Height, Feet : 6 ft(Converted to: 183 cm, 72 Inch) Height, Inches : 0 Inch(Converted to: 0 ft 0 Inch, 0.00 cm) Clinical Height : 182.88 cm Weight Source : Standing scale Weight Entry Format : [place] Clinical Dosing Weight : 76.36 kg Weight, Pounds : 168 lb Body Surface Area (BSA) : 1.98 m2 Body Mass Index : 22.8 kg/m2 [place] Body Weight : 77 kg NAZIALATOYA CAMPBELL [...] LATOYA MANDUJANO RN - 01/26/2021 9:01 EST [place] Suicide Severity Rating Scale (C-SSRS) CSSRS Past [...] Info Legal Guardian : No Support Person/Patient Head Operator Sulfide : Yes Support Person/Pt Rep Name : Brandee Del Angel - Contact Password : Cat Support Person/Pt Rep Contact Information : [phone] Want Family/Rep/Phys Notified of Admit : No Emergency Contact #1 : . Emergency Contact #1 Phone Number : . Emergency Contact #1 Relationship : . Emergency Contact #2 : . Emergency Contact #2 Phone Number : . Emergency Contact #2 Relationship : . Primary Language : Kazakh Communication Barrier : None Oral And Maxillofacial Surgeon Needed : No LATOYA MANDUJANO RN - [...] Level : 46 or > High Risk [place] Fall Interventions : Adequate lighting, Assistive devices [...] Description 05/25/2025 10:45 AM EDT Office Visit [place] [facility] - [place] [place] [address] Jalen Enciso MD [address] [place] [address] [place] [address] documented as of this encounter Visit Diagnoses Not on filedocumented in this encounter Care Teams Scheduling Manager Relationship Specialty Start Date End Date Kaylene Brooke MD [address] [place] [address] PCP - General General Internal Medicine 01/27/22 Farooq Marcus MD [address] [facility] [place] [address] PCP - General Family Medicine 02/27/22 documented as of this encounter
--- OUTSIDE RECORDS SUMMARY | 2024-12-22 08:50 | XMS_ITS | Encounter Summary ---
Author Organization [employer] ([place], [place], [place], [place]) Address [address] [place] [address] Care Team Providers Care Corporate Tutor Name Role Phone Kaylene Brooke MD Primary Care Provider [phone] Farooq Marcus MD Primary Care Provider [phone] Encounter Details Date Type Department Care Team (Late st Contact Info) Description 10/12/2020 Transcribed Document [facility] [place] [address] [place] [address] ProviderRayray MD [address] [place], [place] [address] Social History Tobacco Use Types Packs/Day Years Used Date Smoking Tobacco: Never Assessed Sex and Gender Information Value Date Recorded Sex Assigned at Not on file Legal Sex Male 5:14 PM CDT Gender Identity Not on file Sexual Orientation Not on file documented as of this encounter Miscellaneous Notes * Cerner Conversion Note - Rayray ProviderMD - 10/12/2020 8:09 AM CDT [facility] Endo PACU Summary Primary Physician: NATE KINNEY MD Finalized Date/Time: 10/12/20 08:36:30 Pt. Name: RANCHO DEL ANGEL Jesse Leal/Sex: 1935 Male Med Rec #: [id number] Physician: PARKER RAVI MD-INT Financial #: [id number] Pt. Type: I Room/Bed: [facility]/ Admit/Disch: 10/10/20 10:58:00 - Institution: [facility] Endo PACU Case Times Entry 1 In PACU I 10/12/20 08:18:00 Ready for PACU 10/12/20 08:36:00 Discharge Discharge from PACU 10/12/20 08:36:00 I Last Modified By: Mari Holly, Rn 10/12/20 08:36:[address] [facility] Endo PACU Case Times Audit 10/12/20 08:36:29 Dye Beck Reel Operator: [id number] Modifier: [id number] <+> 1 Ready for PACU Discharge <+> 1 Discharge from PACU I Finalized By: Mari Holly, Rn Document Signatures Signed By: Mari Holly, Marty 10/12/20 08:36 Electronically signed by Nidia [facility] Conversion Spot Welder Body Assembly Cerner at 06/29/2022 2:25 PM CDT documented in this encounter Plan of Treatment Upcoming Encounters Date Type Department Care Team (Late st Contact Info) Description 05/25/2025 10:45 AM EDT Office Visit [facility] [address] [place] [address] Jalen Enciso MD [address] [place] [address] documented as of this encounter Visit Diagnoses Not on filedocumented in this encounter Care Teams Corporate Tutor Relationship Specialty Start Date End Date Kaylene Brooke MD [address] [place] [address] PCP - General General Internal Medicine 01/27/22 Farooq Marcus MD [address] [place] [address] PCP - General Family Medicine 02/27/22 documented as of this encounter
--- OUTSIDE RECORDS SUMMARY | 2024-12-22 08:50 | XMS_ITS | Encounter Summary ---
Author Organization [employer] ([place], [place], [place], [place]) Address [address] [place] [address] Care Team Providers Care Journeyman Millwright Name Role Phone Kaylene Brooke MD Primary Care Provider [phone] Farooq Marcus MD Primary Care Provider [phone] Encounter Details Date Type Department Care Team (Late st Contact Info) Description 09/23/2020 Transcribed Document [facility] [place] [address] [place] [address] ProviderRayray MD [address] [place] [address] Social History Tobacco Use Types Packs/Day Years [...] Insurance 1 Health Plan: MEDICARE Policy Number: [id number] Authorization Number: Insurance 2 Health Plan: [employer] Medicare Supplement Policy Number: [id number] Authorization Number: Insurance Primary Name : MEDICARE Policy Number: [id number] [employer] Medicare Supplement Policy Number: [id number] Historical Authorization Comments-Primary : No Authorization Comments Found TERESA GUZMÁN, Rn-Utilization Review - 09/23/2020 10:54 EDT Electronically signed by Nidia [facility] Conversion Crime Lab Analyst Cerner at 06/29/2022 2:21 PM CDT documented in this encounter Plan of Treatment Upcoming Encounters Date Type Department Care Team (Late st Contact Info) Description 05/25/2025 10:45 AM EDT Office Visit [facility] [address] [place] [address] Jalen Enciso MD [address] [place] [address] documented as of this encounter Visit Diagnoses Not on filedocumented in this encounter Care Teams Journeyman Millwright Relationship Specialty Start Date End Date Kaylene Brooke MD [address] [place] [address] PCP - General General Internal Medicine 01/27/22 Farooq Marcus MD [address] [place] [place] [address] PCP - General Family Medicine 02/27/22 documented as of this encounter
--- OUTSIDE RECORDS SUMMARY | 2024-12-22 08:50 | XMS_ITS | Encounter Summary ---
Author Organization [employer] ([place], [place], [place], [place]) Address [address] [place] [address] Care Team Providers Care Precision Machining Instructor Name Role Phone Kaylene Brooke MD Primary Care Provider [phone] Farooq Marcus MD Primary Care Provider [phone] Encounter Details Date Type Department Care Team (Late st Contact Info) Description 10/10/2020 Transcribed Document [facility] [place] [facility] [place] [address] ProviderRayray MD [address] [place], [place] [address] Social History Tobacco Use Types Packs/Day Years [...] 10/10/2020 17:58 EDT Electronically signed by Nidia [facility] Conversion Repack Room Worker Cerner at 06/29/2022 2:42 PM CDT documented in this encounter Plan of Treatment Upcoming Encounters Date Type Department Care Team (Late st Contact Info) Description 05/25/2025 10:45 AM EDT Office Visit [facility] - [place] [address] [place] [address] Jalen Enciso MD [address] [place] [address] documented as of this encounter Visit Diagnoses Not on filedocumented in this encounter Care Teams Precision Machining Instructor Relationship Specialty Start Date End Date Kaylene Brooke MD [address] [place] [address] PCP - General General Internal Medicine 01/27/22 Farooq Marcus MD [address] [place] [address] PCP - General Family Medicine 02/27/22 documented as of this encounter
--- OUTSIDE RECORDS SUMMARY | 2024-12-22 08:50 | XMS_ITS | Encounter Summary ---
Author Organization [employer] ([place], [place], [place], [place]) Address [address] [place] [address] Care Team Providers Care Data Management Name Role Phone Kaylene Brooke MD Primary Care Provider Farooq Marcus MD Primary Care Provider Encounter Details Date Type Department Care Team (Late st Contact Info) Description 10/10/2020 Transcribed Document [facility] [place] [address] [place] [address] ProviderRayray MD [address] [place] [address] Social History Tobacco Use Types Packs/Day Years [...] On: 10/10/2020 12:58 EDT by HARSHIL GOFF, EXERCISE INSTRUCTOR General Information Previous Swallow Precautions : None in EMR Diet/Intake Prior to Current Admission : Regular/thin Diet/Intake During Current Admission : Full liquids Intubation Comment, EXERCISE INSTRUCTOR : N/A HARSHIL GOFF, EXERCISE INSTRUCTOR - 10/10/2020 12:59 EDT Visit Type, EXERCISE INSTRUCTOR : Initial evaluation Patient Orders : Consult [...] SLP - 10/10/2020 12:58 EDT Therapy Diagnosis, EXERCISE INSTRUCTOR : Oropharyngeal swallow seemingly within functional limits [...] 12:58 EDT General Status Patient Received Status, EXERCISE INSTRUCTOR : Long sitting in bed Patient Left Status, EXERCISE INSTRUCTOR : Long sitting in bed HARSHIL GOFF [...] regular diet. No further dysphagia services warranted, EXERCISE INSTRUCTOR will sign off. Please reconsult if new [...] SwRec : Whole, With puree/pudding HARSHIL GOFF EXERCISE INSTRUCTOR - 10/10/2020 12:59 EDT Therapy Indication Assessment EXERCISE INSTRUCTOR Indicated : No EXERCISE INSTRUCTOR Not Indicated : At prior level of function, No skilled services indicated HARSHIL GOFF SLP - 10/10/2020 12:59 EDT Education Barriers To Learning : None evident Individuals Taught : Patient Readiness to Learn : Cooperative HARSHIL GOFF SLP - 10/10/2020 12:59 EDT EXERCISE INSTRUCTOR Education Assessment Grid 1 Diet Recommendation : Verbalizes understanding Dysphagia : Verbalizes understanding Evaluation Results : Verbalizes understanding HARSHIL GOFF SLP - 10/10/2020 12:59 EDT EXERCISE INSTRUCTOR Education Assessment Grid 2 Reflux Precautions : Verbalizes understanding HARSHIL GOFF SLP - 10/10/2020 12:[address] [facility] EXERCISE INSTRUCTOR Charges Evaluation Swallowing Function : 1 HARSHIL GOFF SLP - 10/10/2020 12:59 EDT Electronically signed by [facility], [facility] Conversion Ticket Collector Cerner at 06/29/2022 2:42 PM CDT documented in this encounter Plan of Treatment Upcoming Encounters Date Type Department Care Team (Late st Contact Info) Description 05/25/2025 10:45 AM EDT Office Visit [facility] - [place] [address] [place] [address] Jalen Enciso MD [address] [facility] [address] [place] [address] documented as of this encounter Visit Diagnoses Not on filedocumented in this encounter Care Teams Data Management Relationship Specialty Start Date End Date Kaylene Brooke MD [address] [place] [address] PCP - General General Internal Medicine 01/27/22 Farooq Marcus MD [address], [place] [address] PCP - General Family Medicine 02/27/22 documented as of this encounter
--- OUTSIDE RECORDS SUMMARY | 2024-12-22 08:50 | XMS_ITS | Encounter Summary ---
Author Organization [employer] ([place], [place], [place], [place]) Address [address] [place] [address] Care Team Providers Care Screw Machine Set Up Operator Tool Name Role Phone Kaylene Brooke MD Primary Care Provider [phone] Farooq Marcus MD Primary Care Provider [phone] Encounter Details Date Type Department Care Team (Late st Contact Info) Description 09/23/2020 Transcribed Document [facility] [place] [address] [place] [address] ProviderRayray MD [address] [place], [place] [address] Social History Tobacco Use Types Packs/Day Years [...] Source : Chart Height Entry Format : [place] Height, Feet : 6 ft Height, Inches : 0 Inch Clinical Height : 182.88 cm Sean Guidry Rn - 09/23/2020 7:07 EDT documented in this encounter Plan of Treatment Upcoming Encounters Date Type Department Care Team (Late st Contact Info) Description 05/25/2025 10:45 AM EDT Office Visit [facility] - [place] [address] [place] [address] Jalen Enciso MD [address] [facility] [address] [place] [address] documented as of this encounter Visit Diagnoses Not on filedocumented in this encounter Care Teams Screw Machine Set Up Operator Tool Relationship Specialty Start Date End Date Kaylene Brooke MD [address] [place] [address] PCP - General General Internal Medicine 01/27/22 Farooq Marcus MD [address] [place] [address] PCP - General Family Medicine 02/27/22 documented as of this encounter
--- OUTSIDE RECORDS SUMMARY | 2024-12-22 08:50 | XMS_ITS | Encounter Summary ---
Author Organization [employer] ([place], [place], [place], [place]) Address [address] [place] [address] Care Team Providers Care Relay Tester Name Role Phone Kaylene Brooke MD Primary Care Provider [phone] Farooq Marcus MD Primary Care Provider [phone] Encounter Details Date Type Department Care Team (Late st Contact Info) Description 10/11/2020 Transcribed Document [facility] [place] [address] [place] [address] ProviderRayray MD [address] [place] [address] Social History Tobacco Use Types Packs/Day Years [...] Weight, Routine Routine Weight Entry Format : [place] Routine Weight, Pounds : 148 lb Routine Weight, Ounces : 7 oz Routine Weight Calculation : 67.47 kg Height Source : Stated Height Entry Format : [place] Height, Feet : 6 ft Height, Inches : 0 Inch Clinical Height : 182.88 cm Body Surface Area (BSA), Routine : 1.88 m2 Body Mass Index (BMI), Routine : 20.17 kg/m2 Elidia Marie, Strategic Accounts Manager - 10/11/2020 5:52 EDT documented in this encounter Plan of Treatment Upcoming Encounters Date Type Department Care Team (Late st Contact Info) Description 05/25/2025 10:45 AM EDT Office Visit [facility] - [facility] [address] [place] [address] Jalen Enciso MD [address] [place] [address] documented as of this encounter Visit Diagnoses Not on filedocumented in this encounter Care Teams Relay Tester Relationship Specialty Start Date End Date Kaylene Brooke MD [address] [place] [address] PCP - General General Internal Medicine 01/27/22 Farooq Marcus MD [address] [place] [address] PCP - General Family Medicine 02/27/22 documented as of this encounter
--- OUTSIDE RECORDS SUMMARY | 2024-12-22 08:50 | XMS_ITS | Encounter Summary ---
Author Organization [facility] ([place], [place], [place], [place]) Address [address] [place] [address] Care Team Providers Care Film Technician Name Role Phone Kaylene Brooke MD Primary Care Provider [phone] Farooq Marcus MD Primary Care Provider [phone] Encounter Details Date Type Department Care Team (Late st Contact Info) Description 10/11/2020 Transcribed Document [facility] [place] [address] [place] [address] ProviderRayray MD [address] [place] [place], [place] [address] Social History Tobacco Use Types Packs/Day Years [...] to 150mg Malnourished secondary to N&V, consult gas line installer - reports loss of leg muscles, he [...] # 0.50 x10(3)/uL (Low) 10/11/2020 05:45 EDT [place] % 11.7 % (High) 10/11/2020 05:45 EDT [place] # 0.64 K/uL 10/11/2020 05:45 EDT Eos % 4.2 % 10/11/2020 05:45 EDT Eos # 0.23 x10(3)/uL 10/11/2020 05:45 EDT Baso % 0.9 % 10/11/2020 05:45 EDT Baso # 0.05 x10(3)/uL 10/11/2020 05:45 EDT Slide Review No 10/11/2020 05:45 EDT IG# 0.04 x10(3)/uL 10/11/2020 05:45 EDT IG% 0.70 % (High) 10/11/2020 05:45 EDT Electronically signed by [facility], [facility] Conversion Check Processor Cerner at 06/29/2022 2:28 PM CDT documented in this encounter Plan of Treatment Upcoming Encounters Date Type Department Care Team (Late st Contact Info) Description 05/25/2025 10:45 AM EDT Office Visit [facility] - [place] [address] [place] [address] Jalen Enciso MD [address] [place] [address] documented as of this encounter Visit Diagnoses Not on filedocumented in this encounter Care Teams Film Technician Relationship Specialty Start Date End Date MendyKaylene dunn MD [address] [place] [address] PCP - General General Internal Medicine 01/27/22 Farooq aMrcus MD [address] [facility] [place] [address] PCP - General Family Medicine 02/27/22 documented as of this encounter
--- OUTSIDE RECORDS SUMMARY | 2024-12-22 08:50 | XMS_ITS | Encounter Summary ---
Author Organization [employer] ([place], [place], [place], [place]) Address [address] [place] [address] Care Team Providers Care Canal Driver Name Role Phone Kaylene Brooke MD Primary Care Provider [phone] Farooq Marcus MD Primary Care Provider [phone] Encounter Details Date Type Department Care Team (Late st Contact Info) Description 09/23/2020 Transcribed Document [facility] [place] [address] [place] [address] ProviderRayray MD [address] [place] [address] Social History Tobacco Use Types Packs/Day Years [...] significant for Esophageal CA, HLD, pacemaker and [place]. He reports he received chemo last week [...] Information Primary Care Physician - MAZIN SHERIDAN [facility] Attending Physician - CRISTINA LUNDBERG DO Admitting [...] ALYC # 0 K/uL 09/22/2020 10:13 EDT [place] Percent Man 1 % (Low) 09/22/2020 10:13 EDT Eos Percent Man 0 % 09/22/2020 10:13 EDT Baso Percent Man 0 % 09/22/2020 10:13 EDT [place] Percent Man 1 % 09/22/2020 10:13 EDT [...] Appearance CLEAR2 09/22/2020 11:25 EDT Urine Specific [place] 1.016 09/22/2020 11:25 EDT Urine pH Dipstick [...] Description 05/25/2025 10:45 AM EDT Office Visit [facility] - [place] [address] [place] [address] Jalen Enciso MD [address] [place] [address] documented as of this encounter Visit Diagnoses Not on filedocumented in this encounter Care Teams Canal Driver Relationship Specialty Start Date End Date MendyKaylene dunn MD [address] [place] [address] PCP - General General Internal Medicine 01/27/22 Farooq Marcus MD [address] [facility] [place] [address] PCP - General Family Medicine 02/27/22 documented as of this encounter
--- OUTSIDE RECORDS SUMMARY | 2024-12-22 08:50 | XMS_ITS | Clinical Summary ---
Author Organization [facility] Address [address] [place] [address] Care Team Providers Care Tank Driver Name Role Phone Adriana Felder APRN Primary Care Provider [phone] Social History Tobacco Use Types Packs/Day Years [...] or (1 - 1-dose 75+ series) 2012 [id number] Vaccine (4 - 2024- season) 2024 11/10/2020, [...] age to complete this [place] [address] [facility] Care Teams Tank Driver Relationship Specialty Start Date End Date Adriana Felder APRN [address] [place] [address] PCP - General 07/23/20
--- OUTSIDE RECORDS SUMMARY | 2024-12-22 08:50 | XMS_ITS | Encounter Summary ---
Author Organization [employer] ([place], [place], [place], [place]) Address [address] [place] [address] Care Team Providers Care Compensation Supervisor Name Role Phone Kaylene Brooke MD Primary Care Provider [phone] Farooq Marcus MD Primary Care Provider [phone] Encounter Details Date Type Department Care Team (Late st Contact Info) Description 10/12/2020 Transcribed Document [facility] [place] [address] [place] [address] ProviderRayray MD [address] [place], [place] [address] Social History Tobacco Use Types Packs/Day Years Used Date Smoking Tobacco: Never Assessed Sex and Gender Information Value Date Recorded Sex Assigned at Not on file Legal Sex Male 5:14 PM CDT Gender Identity Not on file Sexual Orientation Not on file documented as of this encounter Miscellaneous Notes * Cerner Conversion Note - Rayray ProviderMD - 10/12/2020 8:09 AM CDT [facility] Endo IntraOp Summary Primary Physician: NATE KINNEY MD Finalized Date/Time: 10/12/20 08:16:28 Pt. Name: RANCHO DEL ANGEL Jesse Leal/Sex: 1935 Male Med Rec #: [id number] Physician: PARKER RAVI MD-INT Financial #: [id number] Pt. Type: I Room/Bed: [facility]/ Admit/Disch: 10/10/20 10:58:00 - Institution: [facility] Endo - Case Attendance Entry 1 Entry 2 Entry 3 Case Attendee NATE KINNEY MD Walker, Mary B, MIKKI Dowling Role Performed Surgeon/Proceduralist, Wireless Team Member, First Scrub, First First Time In 10/12/20 [...] LOPEZ CRNA BURBERRY, KEITH, MD-ANS Role Performed ASSAULT BOAT COXSWAIN/Nurse Wireless Team Member Anesthesiologist of Record Time In 10/12/20 08:00:00 10/12/20 08:00:00 Time Out 10/12/20 08:16:00 10/12/20 08:16:00 Procedure Esophagogastroduodenosco Esophagogastroduodenosco py, Gastric Biopsy py, Gastric Biopsy Other Attendee Superficial Wound Closed By: Last Modified By: Mari Holly Rn Walker, Mary B, Rn 10/12/20 08:15:02 10/12/20 08:15:02 [facility] Endo - Case Attendance Audit 10/12/20 08:15:02 Marketing Support Assistant: [id number] Modifier: [id number] 1 <+> Time Out 1 <*> Procedure Esophagogastroduodenoscopy, Gastric Biopsy 2 <+> Time Out 2 <*> Procedure Esophagogastroduodenoscopy, Gastric Biopsy 3 <+> Time Out 3 <*> Procedure Esophagogastroduodenoscopy, Gastric Biopsy 4 <+> Time Out 4 <*> Procedure Esophagogastroduodenoscopy, Gastric Biopsy 5 <+> Time Out 5 <*> Procedure Esophagogastroduodenoscopy, Gastric Biopsy 10/12/20 08:12:37 Marketing Support Assistant: [id number] Modifier: [id number] 1 <*> Procedure Esophagogastroduodenoscopy 2 <*> Procedure Esophagogastroduodenoscopy 3 <*> Procedure Esophagogastroduodenoscopy 4 <*> Procedure Esophagogastroduodenoscopy 5 <*> Procedure Esophagogastroduodenoscopy 10/12/20 08:05:35 Marketing Support Assistant: [id number] Modifier: [id number] 1 <+> Time In 1 <*> Procedure Esophagogastroduodenoscopy 2 <+> Time In 2 <*> Procedure Esophagogastroduodenoscopy 3 <+> Time In 3 <*> Procedure Esophagogastroduodenoscopy 4 <+> Time In 4 <*> Procedure Esophagogastroduodenoscopy 5 <+> Time In 5 <*> Procedure Esophagogastroduodenoscopy 10/12/20 08:02:15 Marketing Support Assistant: [id number] Modifier: [id number] <+> 5 Case Attendee <+> 5 Role Performed <+> 5 Procedure 10/12/20 07:57:26 Marketing Support Assistant: [id number] Modifier: [id number] <+> 2 Case Attendee <+> 2 Role Performed <+> 2 Procedure <+> 3 Case Attendee <+> 3 Role Performed <+> 3 Procedure <+> 4 Case Attendee <+> 4 Role Performed <+> 4 Procedure [facility] Endo - Case times Entry 1 Patient In Room Time 10/12/20 08:00:00 Out Room Time 10/12/20 08:16:00 Anesthesia Start Time 10/12/20 08:00:00 Stop Time 10/12/20 08:16:00 Surgery / Procedure Times Start Time 10/12/20 08:09:00 Stop Time 10/12/20 08:14:00 Last Modified By: Mari Holly Rn 10/12/20 08:14:36 [facility] Endo - Case times Audit 10/12/20 08:14:36 Marketing Support Assistant: [id number] Modifier: [id number] <+> 1 Out Room Time <+> 1 Stop Time <+> 1 Stop Time 10/12/20 08:09:07 Marketing Support Assistant: [id number] Modifier: [id number] <+> 1 Start Time [facility] Endo - Cultures and Spec Summary Entry 1 Cultrures and Specimens Specimen Ordered: Yes Test(s) Routine/Path-Lab Requested/Final Disposition Last Modified By: Mari Holly Rn 10/12/20 08:13:55 [facility] Endo - Delays Entry 1 Delay Reason Other Duration 0 Minute(s) Last Modified By: Mari Holly Rn 10/12/20 08:02:27 [facility] Endo - Departure from OR Entry 1 Integumentary Assessment Integumentary WDL Assessment WDL Transfer/Handoff Transfer to PACU Phase I Post-op Transport Stretcher/Gurney Via Patient Transport Mari Holly, Rn, Accompanied by DELMER LOPEZ CRNA Last Modified By: Mari Holly, Marty 10/12/20 08:02:33 [facility] Endo - Endoscopy Details Entry 1 Abdomen Procedure Soft, Non-Tender Assessment Procedure Abdomen 10/12/20 08:00:00 Assessment D/T Radio Frequency Ablation Abdominal Pressure Last Modified By: Mari Holly Rn 10/12/20 08:02:48 [facility] Endo - Fire Risk Assessment Entry 1 Fire Info Surgical Site or 1- Yes Incision Above the Xyphoid Open O2 Source 1- Yes (Mask or Cannula) Available Ignition 1- Yes (ESU, Laser, Light Source) Fire Risk 3 Assessment Score Fire Score Fire Risk Yes Assessment Complete Fire Risk Mari Holly, Division Engineer Verified By Fire Risk 10/12/20 08:00:00 Assessment Verified Date/Time Fire Risk High Risk Protocol Yes Implemented Standard Fire Yes Safety Precautions Followed Last Modified By: Mari Holly Rn 10/12/20 08:03:28 [facility] Endo - General Case Wash House Supervisor 1 Case Information OR Endo 03 [facility] Case Level 1 Room Verified Yes Wound Class II - Clean-Contaminated Specialty Gastroenterology Anesthesia Type MAC ASA Class 4 Diagnosis Preop Diagnosis nausea and vomiting Postop Same As Preop No Postop Diagnosis hiatal hernia, gastric erythema Last Modified By: Mari Holly Rn 10/12/20 08:05:26 [facility] Endo - General Case Data Audit 10/12/20 08:13:36 Marketing Support Assistant: [id number] Modifier: [id number] 1 <*> Postop Diagnosis hiatal hernia 10/12/20 08:10:39 Marketing Support Assistant: [id number] Modifier: [id number] <+> 1 Postop Diagnosis 10/12/20 08:08:21 Marketing Support Assistant: [id number] Modifier: [id number] 1 <+> Postop Same As Preop 1 <*> Preop Diagnosis nausea 10/12/20 08:08:05 Marketing Support Assistant: [id number] Modifier: [id number] <+> 1 Preop Diagnosis 10/12/20 08:05:26 Marketing Support Assistant: [id number] Modifier: [id number] <+> 1 ASA Class 10/12/20 08:03:22 Marketing Support Assistant: [id number] Modifier: [id number] 1 <-> Preop Diagnosis R63.0/R11.2 [facility] Endo - Intraoperative Assessment Entry 1 Valid History / Yes Physical in Chart Preoperative Yes Checklist Reviewed/Evaluated Patient is Latex No Sensitive Level of WDL Consciousness (WDL = Alert, Oriented to Person, Place, and Time) Last Modified By: Mari Holly Rn 10/12/20 08:04:06 [facility] Endo - Intraoperative Equipment Entry 1 Equipment Intraop Monitoring Electrocardiogram Three lead placement (ECG) Electrode Placement Blood Pressure Arm, left upper Location Pulse Oximeter Hand, right Probe Site Antiembolic Devices Scopes Flexible Endoscopes Gastroscope Used Scope Serial K Number/Identificatio n Number Photo/Video Documentation Photo Yes Video No Last Modified By: Mari Holly Rn 10/12/20 07:57:53 [facility] Endo - Patient Positioning Entry 1 [...] Mari Holly Rn 10/12/20 08:04:04 [facility] Endo - Patient Positioning Audit 10/12/20 08:12:38 Marketing Support Assistant: [id number] Modifier: [id number] 1 <*> Procedure Esophagogastroduodenoscopy [facility] Endo - Sign In Entry 1 Patient, Site, Yes Procedure Identified Surgical Consent Yes Confirmed Relevant Surgical Yes Documents Available Surgical Site N/A Marked by person performing procedure Airway Hypothermia Risk No Warming Measures No Taken Last Modified By: Mari Holly Rn 10/12/20 07:57:39 [facility] Endo - Sign Out Entry 1 [...] Mari Holly Rn 10/12/20 08:14:51 [facility] Endo - Surgical Procedures Entry 1 Entry 2 Procedure Esophagogastroduodenosco Gastric Biopsy py Modifiers Additional Procedure Description Primary Procedure Yes No Primary Surgeon NATE KINNEY MD ASLAM, BILAL, MD Start 10/12/20 08:09:00 10/12/20 08:09:00 Stop 10/12/20 08:14:00 10/12/20 08:14:00 Physician States Cecum Reached Anesthesia Type [facility] Specialty Gastroenterology Gastroenterology Wound Class II - Clean-Contaminated II - Clean-Contaminated Last Modified By: Mari Holly Rn Walker, Mary B, Rn 10/12/20 07:57:32 10/12/20 08:12:35 [facility] Endo - Surgical Procedures Audit 10/12/20 08:14:56 Marketing Support Assistant: [id number] Modifier: [id number] <+> 1 Stop <+> 2 Stop 10/12/20 08:12:35 Marketing Support Assistant: [id number] Modifier: [id number] <+> 1 Start <+> 2 Procedure <+> 2 Primary Procedure <+> 2 Primary Surgeon <+> 2 Specialty <+> 2 Start <+> 2 Wound Class <+> 2 Anesthesia Type [facility] Endo - Time Out Entry 1 [...] Mari Holly Rn 10/12/20 08:12:38 [facility] Endo - Time Out Audit 10/12/20 08:12:38 Marketing Support Assistant: [id number] Modifier: [id number] 1 <*> Procedure to be Performed Esophagogastroduodenoscopy 10/12/20 08:07:28 Marketing Support Assistant: [id number] Modifier: [id number] 1 <*> Time Out Pause Time 10/12/20 08:03:00 1 <*> Procedure to be Performed Esophagogastroduodenoscopy Case Comments <None> Finalized By: Mari Holly, Rn Document Signatures Signed By: Mari Holly Rn 10/12/20 08:16 Electronically signed by Nidia [facility] Conversion Mangle Press Catcher Cerner at 06/29/2022 2:14 PM CDT documented in this encounter Plan of Treatment Upcoming Encounters Date Type Department Care Team (Late st Contact Info) Description 05/25/2025 10:45 AM EDT [facility] [address] [facility] [address] [place] [address] Jalen Enciso MD [address] [place] [address] documented as of this encounter Visit Diagnoses Not on filedocumented in this encounter Care Teams Compensation Supervisor Relationship Specialty Start Date End Date Kaylene Brooke MD [address] [place] [address] PCP - General General Internal Medicine 01/27/22 Farooq Marcus MD [address] [place] [address] PCP - General Family Medicine 02/27/22 documented as of this encounter
--- OUTSIDE RECORDS SUMMARY | 2024-12-22 08:50 | XMS_ITS | Encounter Summary ---
Author Organization [employer] ([place], [place], [place], [place]) Address [address] [place] [address] Care Team Providers Care Machine Silver Stripper Name Role Phone Kaylene Brooke MD Primary Care Provider [phone] Farooq Marcus MD Primary Care Provider Encounter Details Date Type Department Care Team (Late st Contact Info) Description 09/08/2020 Transcribed Document [facility] [place] [address] [place] [address] ProviderRayray MD [address] [place] [address] Social History Tobacco Use Types [...] 10:[address] [facility] [address] [place] [id number] ALEX DOYLE E :1935 Visit Time:09/08/2020 Your Visit Summary Your Care Team Admitting Physician - JALEN ENCISO MD-ONC Attending Physician - JALEN ENCISO MD-ONC Primary Care Physician - MAZIN SHERIDAN MD-[facility] Referring Physician - JALEN ENCISO MD-ONC [...] When Comments Follow-up as instructed Where: [address] [place] [address]- Medications What How Much When Instructions Next [...] port is placed, you will get a hand woodworking sander's information card. The card has information about [...] and water are not available, use hand glass technician. ? Change your dressing as told by [...] it is safe. General instructions ??? Take wdhb-xae-fhmslsi and prescription medicines only as told by [...] by your health care provider. Keep the hand woodworking sander's information card with you at all times. [...] you are awake and alert. ??? Take mlmo-ciq-pmcxnzj and prescription medicines only as told by [...] provider. Document Revised: 02/08/2018 Document Reviewed: 06/17/2016 [employer] Patient Education ?? 2020 [employer] FAQ ??? Patient COVID-19 testing Why [...] through the local health department and the [place] Department for Public Health. Those organizations are [...] and need to call 911, notify the coating machine operator that you have, or think [...] clean your hands with an alcohol-based hand glass technician that contains at least 60% alcohol. Clean your hands often. ??? Wash hands: Wash your hands often with soap and water for at least 20 seconds when visibly dirty. This is especially important after blowing your nose, coughing or sneezing, and going to the bathroom, and before eating or preparing food. ??? Hand glass technician: Use an alcohol-based hand glass technician with at least 60% alcohol, covering all [...] and water or put them in the shredder picker. Clean all high-touch surfaces every day. Clean [...] or body fluids on them. ??? Household office machines teacher and disinfectants: Clean the area or item [...] list of disinfectants can be found here: https://www.epa.gov/pesticide-registration/agye-r-mhvlvxmlwccem-uwd-fjxuvnb-sk rs-cov-2 Emergency Awareness and Preventative Care STROKE [...] Assistance with quitting is available by contacting 0-361-NNFENOW. This is a free resource providing counseling, [...] was given the opportunity to ask questions. Patient/Radio Frequency Technician Name: Patient/Radio Frequency Technician Signature: Relationship to Patient: Clinician/Hospital Radio Frequency Technician Signature: Date: documented in this encounter Plan of Treatment Upcoming Encounters Date Type Department Care Team (Late st Contact Info) Description 05/25/2025 10:45 AM EDT Office Visit [place] [facility] - [place] [address] [facility] [address] [place] [address] Jalen Enciso MD [address] [place] [place] [address] documented as of this encounter Visit Diagnoses Not on filedocumented in this encounter Care Teams Machine Silver Stripper Relationship Specialty Start Date End Date Kaylene Brooke MD [address] [place] [address] PCP - General General Internal Medicine 01/27/22 Farooq Marcus MD [address] [place] [address] PCP - General Family Medicine 02/27/22 documented as of this encounter
--- OUTSIDE RECORDS SUMMARY | 2024-12-22 08:50 | XMS_ITS | Encounter Summary ---
Author Organization [employer] ([place], [place], [place], [place]) Address [address] [place] [address] Care Team Providers Care Cardiology Physician Assistant Name Role Phone Kaylene Brooke MD Primary Care Provider [phone] Farooq Marcus MD Primary Care Provider [phone] Encounter Details Date Type Department Care Team (Late st Contact Info) Description 01/26/2021 Transcribed Document [facility] Family Medicine [address] [place] [address] ProviderRayray MD [address] [place], [place] [address] Social History Tobacco Use Types Packs/Day Years Used Date Smoking Tobacco: Never Assessed Sex and Gender Information Value Date Recorded Sex Assigned at Not on file Legal Sex Male 5:14 PM CDT Gender Identity Not on file Sexual Orientation Not on file documented as of this encounter Miscellaneous Notes * Cerner Conversion Note - Rayray ProviderMD - 01/26/2021 12:22 PM FLAG SIGNALMAN Nursing Discharge Summary Entered On: 01/26/2021 12:22 [...] - 01/26/2021 12:22 EST Electronically signed by [facility] Conversion Strategy Analyst Cerner at 06/29/2022 2:28 PM CDT documented in this encounter Plan of Treatment Upcoming Encounters Date Type Department Care Team (Late st Contact Info) Description 05/25/2025 10:45 AM EDT Office Visit [facility] - [place] [address] [place] [address] Jalen Enciso MD [address] [place] [address] documented as of this encounter Visit Diagnoses Not on filedocumented in this encounter Care Teams Cardiology Physician Assistant Relationship Specialty Start Date End Date Kaylene Brooke MD [address] [place] [address] PCP - General General Internal Medicine 01/27/22 Farooq Marcus MD [facility] [address] [facility] [place] [address] PCP - General Family Medicine 02/27/22 documented as of this encounter
--- OUTSIDE RECORDS SUMMARY | 2024-12-22 08:50 | XMS_ITS | Encounter Summary ---
Author Organization [employer] ([place], [place], [place], [place]) Address [address] [place] [address] Care Team Providers Care Clamshell Operator Name Role Phone Kaylene Brooke MD Primary Care Provider [phone] Farooq Marcus MD Primary Care Provider [phone] Encounter Details Date Type Department Care Team (Late st Contact Info) Description 10/11/2020 Transcribed Document [facility] [place] [address] [place] [address] ProviderRayray MD [address] [place] [address] Social History Tobacco Use Types Packs/Day Years [...] Insurance 1 Health Plan: MEDICARE Policy Number: [id number] Authorization Number: Insurance 2 Health Plan: [employer] Medicare Supplement Policy Number: [id number] Authorization Number: Insurance Primary Name : MEDICARE Policy Number: [id number] [employer] Medicare Supplement Policy Number: [id number] Historical Authorization Comments-Primary : No Authorization Comments Found CARMINE TORREZ, RN - 10/11/2020 8:39 EDT documented in this encounter Plan of Treatment Upcoming Encounters Date Type Department Care Team (Late st Contact Info) Description 05/25/2025 10:45 AM EDT Office Visit [place] [facility] - [facility] [address] [place] [address] Jalen Enciso MD [address] [place] [address] documented as of this encounter Visit Diagnoses Not on filedocumented in this encounter Care Teams Clamshell Operator Relationship Specialty Start Date End Date Kaylene Brooke MD [address] [place] [address] PCP - General General Internal Medicine 01/27/22 Farooq Marcus MD [address] [place] [place] [address] PCP - General Family Medicine 02/27/22 documented as of this encounter
--- OUTSIDE RECORDS SUMMARY | 2024-12-22 08:50 | XMS_ITS | Encounter Summary ---
Author Organization [employer] ([place], [place], [place], [place]) Address [address] [place] [address] Care Team Providers Care Electron Microprobe Operator Name Role Phone Kaylene Brooke MD Primary Care Provider [phone] Farooq Marcus MD Primary Care Provider [phone] Encounter Details Date Type Department Care Team (Late st Contact Info) Description 01/26/2021 Transcribed Document [facility] [place] [address] [place] [address] ProviderRayray MD [address] [place] [address] Social History Tobacco Use Types Packs/Day Years Used Date Smoking Tobacco: Never Assessed Sex and Gender Information Value Date Recorded Sex Assigned at Not on file Legal Sex Male 5:14 PM CDT Gender Identity Not on file Sexual Orientation Not on file documented as of this encounter Miscellaneous Notes * Cerner Conversion Note - Rayray San MD - 01/26/2021 12:23 PM 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 Take or apply czni-hzm-ufdjeft and prescription medicines only as told by [...] cannot use soap and water, use hand solder deposit operator. ? Change your bandage as told [...] provider. Document Revised: 10/08/2018 Document Reviewed: 10/08/2018 [employer] Patient Education ?? 2020 [employer] Moderate Conscious Sedation, Adult, Care After [...] you are awake and alert. ??? Take ppez-phl-tvhjzwo and prescription medicines only as told by [...] provider. Document Revised: 01/22/2020 Document Reviewed: 01/22/2020 [employer] Patient Education ?? 2020 [employer]. Emergency Awareness and Preventative Care STROKE is [...] Assistance with quitting is available by contacting 3-961-YYYD-NOW. This is a free resource providing counseling, [...] was given the opportunity to ask questions. Patient/Paraeducator Name: Patient/Paraeducator Signature: Relationship to Patient: Clinician/Hospital Paraeducator Signature: Date: Electronically signed by Malina Jacob Conversion Platform Material Handler Manager Cerner at 06/29/2022 2:24 PM CDT documented in this encounter Plan of Treatment Upcoming Encounters Date Type Department Care Team (Late st Contact Info) Description 05/25/2025 10:45 AM EDT Office Visit [facility] [facility] - [place] [address] [place] [address] Jalen Enciso MD [address] [place] [address] documented as of this encounter Visit Diagnoses Not on filedocumented in this encounter Care Teams Electron Microprobe Operator Relationship Specialty Start Date End Date MendyKaylene dunn MD [address] [place] [address] PCP - General General Internal Medicine 01/27/22 Farooq Marcus MD [address] [place] [address] PCP - General Family Medicine 02/27/22 documented as of this encounter
--- OUTSIDE RECORDS SUMMARY | 2024-12-22 08:50 | XMS_ITS | Encounter Summary ---
Author Organization [employer] ([place], [place], [place], [place]) Address [address] [place] [address] Care Team Providers Care Wick Tender Name Role Phone Kaylene Brooke MD Primary Care Provider [phone] Farooq Marcus MD Primary Care Provider [phone] Encounter Details Date Type Department Care Team (Late st Contact Info) Description 09/23/2020 Transcribed Document [facility] [place] [facility] [place] [address] ProviderRayray MD [address] [place] [address] Social History Tobacco Use Types Packs/Day Years [...] : Assistive Devices No Devices Recorded MATIAS KENR PTA - 09/24/2020 15:04 EDT General Status [...] MATIAS KERN PTA - 09/24/2020 15:04 EDT Skilled Nursing Goals Ambulation LTG Grid Goal #1 Device [...] MATIAS KERN PTA - 09/24/2020 15:04 EDT [place] PT Charges TIE SAWYER PT Therap. Exercise 15 min-TIE SAWYER : 1 MATIAS KERN PTA - 09/24/2020 15:04 EDT documented in this encounter Plan of Treatment Upcoming Encounters Date Type Department Care Team (Late st Contact Info) Description 05/25/2025 10:45 AM EDT Office Visit [facility] - [place] [address] [place] [address] Jalen Enciso MD [address] [place] [address] documented as of this encounter Visit Diagnoses Not on filedocumented in this encounter Care Teams Wick Tender Relationship Specialty Start Date End Date MendyKaylene dunn MD [address] [place] [address] PCP - General General Internal Medicine 01/27/22 Farooq Marcus MD [address] [place] [address] PCP - General Family Medicine 02/27/22 documented as of this encounter
--- OUTSIDE RECORDS SUMMARY | 2024-12-22 08:50 | XMS_ITS | Encounter Summary ---
Author Organization [employer] ([place], [place], [place], [place]) Address [address] [place] [address] Care Team Providers Care Offset Second Press Operator Name Role Phone Kaylene Brooke MD Primary Care Provider Farooq Marcus MD Primary Care Provider [phone] Encounter Details Date Type Department Care Team (Late Contact Info) Description 09/23/2020 Transcribed Document [facility] [place] [address] ProviderRayray MD [address] [place], [place] [address] Social History Tobacco Use Types Packs/Day Years [...] Description 05/25/2025 10:45 AM EDT Office Visit [facility] - [address] [place] [address] Jalen Enciso MD [address] [place] [address] documented as of this encounter Visit Diagnoses Not on filedocumented in this encounter Care Teams Offset Second Press Operator Relationship Specialty Start Date End Date Kaylene Brooke MD [address] [place] [address] PCP - General General Internal Medicine 01/27/22 Farooq Marcus MD [address] [place] [address] PCP - General Family Medicine 02/27/22 documented as of this encounter
--- OUTSIDE RECORDS SUMMARY | 2024-12-22 08:50 | XMS_ITS | Encounter Summary ---
Author Organization [employer] ([place], [place], [place], [place]) Address [address] [place] [address] Care Team Providers Care Boiling House Hand Name Role Phone Kaylene Brooke MD Primary Care Provider [phone] Farooq Marcus MD Primary Care Provider [phone] Encounter Details Date Type Department Care Team (Late st Contact Info) Description 10/11/2020 Transcribed Document [facility] [place] [facility] [place] [address] ProviderRayray MD [address] [place], [place] [address] Social History Tobacco Use Types Packs/Day Years [...] 10/11/2020 16:55 EDT Electronically signed by Nidia [facility] Conversion Check Inspector Cerner at 06/29/2022 2:26 PM CDT documented in this encounter Plan of Treatment Upcoming Encounters Date Type Department Care Team (Late st Contact Info) Description 05/25/2025 10:45 AM EDT Office Visit [facility] - [place] [address] [place] [address] Jalen Enciso MD [address] [place] [address] [place] [address] documented as of this encounter Visit Diagnoses Not on filedocumented in this encounter Care Teams Boiling House Hand Relationship Specialty Start Date End Date Kaylene Brooke MD [address] [place] [address] PCP - General General Internal Medicine 01/27/22 Farooq Marcus MD [address] [facility] [place] [address] PCP - General Family Medicine 02/27/22 documented as of this encounter
--- OUTSIDE RECORDS SUMMARY | 2024-12-22 08:50 | XMS_ITS | Encounter Summary ---
Author Organization [employer] ([place], [place], [place], [place]) Address [address] [place] [address] Care Team Providers Care Supervisor Benzene Refining Name Role Phone Kaylene Brooke MD Primary Care Provider [phone] Farooq Marcus MD Primary Care Provider [phone] Encounter Details Date Type Department Care Team (Late st Contact Info) Description 09/24/2020 Transcribed Document [facility] Radiology [address] [place] [address] Janell Marx MD [address] [place] [address] Social History Tobacco Use Types Packs/Day Years [...] were sent to us from his previous brokerage office manager including his left heart catheterization that he [...] mL: 1,250 mg, 250 mL/Hr, IV Piggyback, [id number] Documented Medications Documented Brilinta (ticagrelor) 90 mg [...] 0.9% 250 mL 1,250 mg, IV Piggyback, [id number] Continuous: (1) NaCl 0.9% 1,000 mL 1,000 [...] All Problems Anxiety disorder / SNOMED CT 596801696 / Confirmed At risk for sleep apnea / IMO 16525452 / Confirmed Chest pain with high risk for cardiac etiology / SNOMED CT 38749114 / Confirmed Hyperlipidemia / SNOMED CT 18806960 / Confirmed Esophagus cancer / SNOMED CT 683918300 / Confirmed Myocardial infarction / SNOMED CT 51108832 / Confirmed 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 Troponin now trending down. We'll check an echocardiogram for ejection fraction. Will obtain records from. documented in this encounter Plan of Treatment Upcoming Encounters Date Type Department Care Team (Late st Contact Info) Description 05/25/2025 10:45 AM EDT Office Visit [facility] [address] [facility] [address] [place] [address] Jalen Enciso MD [address] [place] [address] documented as of this encounter Visit Diagnoses Not on filedocumented in this encounter Care Teams Supervisor Benzene Refining Relationship Specialty Start Date End Date Kaylene Brooke MD [address] [place] [address] PCP - General General Internal Medicine 01/27/22 Farooq Marcus MD [address] [place] [address] PCP - General Family Medicine 02/27/22 documented as of this encounter
--- OUTSIDE RECORDS SUMMARY | 2024-12-22 08:50 | XMS_ITS | Encounter Summary ---
Author Organization [employer] ([place], [place], [place], [place]) Address [address] [place] [address] Care Team Providers Care Mold Maker Name Role Phone Kaylene Brooke MD Primary Care Provider [phone] Farooq Marcus MD Primary Care Provider [phone] Encounter Details Date Type Department Care Team (Late st Contact Info) Description 10/11/2020 Transcribed Document [facility] [place] [facility] [place] [address] ProviderRayray MD [address] [place], [place] [address] Social History Tobacco Use Types Packs/Day Years Used Date Smoking Tobacco: Never Assessed Sex and Gender Information Value Date Recorded Sex Assigned at Not on file Legal Sex Male 5:14 PM CDT Gender Identity Not on file Sexual Orientation Not on file documented as of this encounter Miscellaneous Notes * Brittani Conversion Note - Rayray ProviderMD - 10/11/2020 2:00 AM CDT Civil Engineering Manager Details Entered On: 10/11/2020 2:55 EDT Performed [...] EDT Office Visit [facility] - [place] [address] [place] [address] Jalen Enciso MD [address] [place] [address] documented as of this encounter Visit Diagnoses Not on filedocumented in this encounter Care Teams Mold Maker Relationship Specialty Start Date End Date MendyKaylene dunn MD [address] [place] [address] PCP - General General Internal Medicine 01/27/22 Farooq Marcus MD [address] [place] [address] PCP - General Family Medicine 02/27/22 documented as of this encounter
--- OUTSIDE RECORDS SUMMARY | 2024-12-22 08:50 | XMS_ITS | Encounter Summary ---
Author Organization [employer] ([place], [place], [place], [place]) Address [address] [place] [address] Care Team Providers Care Motor Vehicle Inspector Name Role Phone Kaylene Brooke MD Primary Care Provider [phone] Farooq Marcus MD Primary Care Provider [phone] Encounter Details Date Type Department Care Team (Late st Contact Info) Description 10/11/2020 Transcribed Document [facility] [facility] [place] [address] Rayray San MD [address] [place], [place] [address] Social History Tobacco Use Types Packs/Day Years [...] uncertain if he has one recently. . Electronically signed by Malina Jacob Conversion Worksite Wellness Practitioner Cerner at 06/29/2022 2:32 PM CDT documented in this encounter Plan of Treatment Upcoming Encounters Date Type Department Care Team (Late st Contact Info) Description 05/25/2025 10:45 AM EDT Office Visit [facility] - [place] [facility] [address] [facility] [address] [place] [address] Jalen Enciso MD [address] [facility] [address] [place] [address] documented as of this encounter Visit Diagnoses Not on filedocumented in this encounter Care Teams Motor Vehicle Inspector Relationship Specialty Start Date End Date Kaylene Brooke MD [address] [place] [address] PCP - General General Internal Medicine 01/27/22 Farooq Marcus MD [address] [place] [address] PCP - General Family Medicine 02/27/22 documented as of this encounter
--- OUTSIDE RECORDS SUMMARY | 2024-12-22 08:50 | XMS_ITS | Encounter Summary ---
Author Organization [employer] ([place], [place], [place], [place]) Address [address] [place] [address] Care Team Providers Care Heater Mechanic Name Role Phone Kaylene Brooke MD Primary Care Provider [phone] Farooq Marcus MD Primary Care Provider [phone] Encounter Details Date Type Department Care Team (Late st Contact Info) Description 09/23/2020 Transcribed Document [facility] [place] [address] [place] [address] ProviderRayray MD [address] [place], [place] [address] Social History Tobacco Use Types Packs/Day Years [...] BANG OSBORN Chaplain - 09/23/2020 4:13 EDT Electronically signed by Boo Jacob Conversion Automobile Accessories Salesperson Cerner at 06/29/2022 2:12 PM CDT documented in this encounter Plan of Treatment Upcoming Encounters Date Type Department Care Team (Late st Contact Info) Description 05/25/2025 10:45 AM EDT Office Visit [facility] - [place] [place] [address] Jalen Enciso MD [address] [place] [address] documented as of this encounter Visit Diagnoses Not on filedocumented in this encounter Care Teams Heater Mechanic Relationship Specialty Start Date End Date MendyKaylene dunn MD [address] [place] [address] PCP - General General Internal Medicine 01/27/22 Farooq Marcus MD [address] [facility] [place] [address] PCP - General Family Medicine 02/27/22 documented as of this encounter
--- OUTSIDE RECORDS SUMMARY | 2024-12-22 08:50 | XMS_ITS | Encounter Summary ---
Author Organization [employer] ([place], [place], [place], [place]) Address [address] [place] [address] Care Team Providers Care Camp Guard Name Role Phone Kaylene Brooke MD Primary Care Provider [phone] Farooq Marcus MD Primary Care Provider [phone] Encounter Details Date Type Department Care Team (Late st Contact Info) Description 09/23/2020 Transcribed Document [facility] [place] [facility] [place] [address] ProviderRayray MD [address] [place], [place] [address] Social History Tobacco Use Types Packs/Day Years [...] 0.9% 250 mL 1,250 mg, IV Piggyback, [id number] Continuous: (1) NaCl 0.9% 1,000 mL 1,000 [...] (SEP 22) Radiology Results (Last 48 hours) [id number] -- 09/22/2020 16:03 CR Chest 1 Vw [...] months ago with dr topete done at [facility] - pt stopped taking brilinta on his own accord shortly after the PCI as it was making him sob - on aspirin 81 mg daily. syncope 2 weeks ago - two weeks prior to admission, was at [facility] for this stay. depression - start on [...] discharge disposition: home with HH. Chantelle Lundberg [facility] Hospitalist pager- [phone] Electronically signed by [facility] Conversion Line Manager Cerner at 06/29/2022 2:15 PM CDT documented in this encounter Plan of Treatment Upcoming Encounters Date Type Department Care Team (Late st Contact Info) Description 05/25/2025 10:45 AM EDT Office Visit [facility] - [address] [facility] [address] [facility] [address] [place] [address] Jalen Enciso MD [address] [place] [address] documented as of this encounter Visit Diagnoses Not on filedocumented in this encounter Care Teams Camp Guard Relationship Specialty Start Date End Date Kaylene Brooke MD [address] [place] [address] PCP - General General Internal Medicine 01/27/22 Farooq Marcus MD [address] [place] [address] PCP - General Family Medicine 02/27/22 documented as of this encounter
--- OUTSIDE RECORDS SUMMARY | 2024-12-22 08:50 | XMS_ITS | Encounter Summary ---
Author Organization [email or web address] ([place], [place], [place], [place]) Address [address] [place] [address] Care Team Providers Care Rigger Name Role Phone Kaylene Brooke MD Primary Care Provider [phone] Farooq Marcus MD Primary Care Provider [phone] Encounter Details Date Type Department Care Team (Late st Contact Info) Description 10/11/2020 Transcribed Document [facility] [place] [address] ProviderRayray MD [address] [place] [address] Social History Tobacco Use Types Packs/Day Years [...] LOW 10/11/2020 06:13 Alk Phos 152 Units/Liter NE 10/10/2020 06:37 ALT 24 Units/Liter 10/10/2020 06:37 AST 24 Units/Liter 10/10/2020 06:37 Blood Urea Nitrogen 7 mg/dL 10/11/2020 06:13 Glucose Level 85 mg/dL 10/11/2020 06:13 Albumin Level 2.4 Gram/dL LOW 10/10/2020 06:37 Bilirubin Total 1.4 mg/dL NE 10/10/2020 06:37 Calcium Level 8.8 mg/dL 10/11/2020 [...] Diagnostic Results Radiology Results (Last 48 hours) [id number] -- 10/10/2020 10:58 CT Head WO W [...] Sampson Laws MD Electronically signed by Nidia [facility] Conversion Dining Room Server Cerner at 06/29/2022 2:32 PM CDT documented in this encounter Plan of Treatment Upcoming Encounters Date Type Department Care Team (Late st Contact Info) Description 05/25/2025 10:45 AM EDT Office Visit [facility] - [address] [place] [address] Jalen Enciso MD [address] [place] [place] [address] documented as of this encounter Visit Diagnoses Not on filedocumented in this encounter Care Teams Rigger Relationship Specialty Start Date End Date Kaylene Brooke MD [address] [place] [address] PCP - General General Internal Medicine 01/27/22 Farooq Marcus MD [address] [place] [address] PCP - General Family Medicine 02/27/22 documented as of this encounter
--- OUTSIDE RECORDS SUMMARY | 2024-12-22 08:50 | XMS_ITS | Encounter Summary ---
Author Organization [employer] ([place], [place], [place], [place]) Address [address] [place] [address] Care Team Providers Care Commissary Clerk Name Role Phone Kaylene Brooke MD Primary Care Provider Farooq Marcus MD Primary Care Provider [phone] Encounter Details Date Type Department Care Team (Late st Contact Info) Description 09/23/2020 Transcribed Document [facility] Radiology [address] [place] [address] Janell Marx MD [address] [place] [address] Social History Tobacco Use Types Packs/Day Years [...] disease status post recent stent placement at [facility] 2 months ago, pacemaker placement, history of [...] mL: 1,250 mg, 250 mL/Hr, IV Piggyback, [id number] Problem list: All Problems Anxiety disorder / SNOMED CT 321453391 / Confirmed At risk for sleep apnea / IMO 06448766 / Confirmed Chest pain with high risk for cardiac etiology / SNOMED CT 83278556 / Confirmed Hyperlipidemia / SNOMED CT 08618895 / Confirmed Esophagus cancer / SNOMED CT 686126479 / Confirmed Myocardial infarction / SNOMED CT 16672084 / Confirmed Leg neuralgia / SNOMED CT 51335656 / Confirmed, Active Problems (7) Anxiety disorder [...] EDT Height Source Chart Height Entry Format [place] Height/Length, PANAMANIAN (ft) 6 ft Height/Length PANAMANIAN 0 Inch CLINICALHEIGHT 182.88 cm Routine Weight Entry Format Metric 09/22/2020 16:21 EDT Height Source Chart Height Entry Format [place] Height/Length, PANAMANIAN (ft) 6 ft Height/Length PANAMANIAN 0 Inch CLINICALHEIGHT 182.88 cm [place] Body Weight 77 kg Weight Source Bed scale Weight Entry Format [place] Weight Nigerien lb 175 lb CLINICALWEIGHT 79.55 kg Body Surface Area (BSA) 2.01 m2 Body Mass Index 23.8 kg/m2 09/22/2020 9:45 EDT Height Source Stated Height Entry Format [place] Height/Length, PANAMANIAN (ft) 6 ft Height/Length PANAMANIAN 0 Inch CLINICALHEIGHT 182.88 cm [place] Body Weight 76.59 kg Weight Source, ED Critical estimated dosing weight Weight Entry Format [place] Weight Nigerien lb 175 lb CLINICALWEIGHT 79.55 kg Body [...] (Current Encounter/Past 24 Hours) ProBNP 2259 pg/mL [place] 09/22/2020 11:19 Blood Gases (Current Encounter/Past 24 Hours) No Blood Gas Results Found (Past 24 Hours) Radiology Results (Last 48 hours) [id number] -- 09/22/2020 16:03 CR Chest 1 Vw [...] Description 05/25/2025 10:45 AM EDT Office Visit [facility] - [place] [address] [facility] [address] [place] [address] Jalen Enciso MD [address] [facility] [address] [place] [address] documented as of this encounter Visit Diagnoses Not on filedocumented in this encounter Care Teams Commissary Clerk Relationship Specialty Start Date End Date MendyKaylene dunn MD [address] [place] [address] PCP - General General Internal Medicine 01/27/22 Farooq Marcus MD [address] [place] [address] PCP - General Family Medicine 02/27/22 documented as of this encounter
--- OUTSIDE RECORDS SUMMARY | 2024-12-22 08:50 | XMS_ITS | Encounter Summary ---
Author Organization [employer] ([place], [place], [place], [place]) Address [address] [place] [address] Care Team Providers Care Property And Equipment Clerk Name Role Phone Kaylene Brooke MD Primary Care Provider [phone] Farooq Marcus MD Primary Care Provider [phone] Encounter Details Date Type Department Care Team (Late st Contact Info) Description 09/24/2020 Transcribed Document [facility] [place] [address] [place] [address] ProviderRayray MD [address] [place] [address] Social History Tobacco Use Types Packs/Day Years [...] (SEP 22) Radiology Results (Last 48 hours) [id number] -- 09/22/2020 16:03 US Abdominal RT Upper [...] topete done at [facility] - pt stopped taking brilinta on his own accord shortly after the PCI as it was making him sob - on aspirin 81 mg daily. syncope 2 weeks ago - two weeks prior to admission, was at [facility] for this stay. depression - start on antidepressant last week with dr enicso - pt and unsure what medication this [...] and home nextweek. Cristina In[facility] Hospitalist pager- [phone] Electronically signed by Nidia [facility] Conversion Consumer Insight Manager Cerner at 06/29/2022 2:22 PM CDT documented in this encounter Plan of Treatment Upcoming Encounters Date Type Department Care Team (Late st Contact Info) Description 05/25/2025 10:45 AM EDT Office Visit [facility] - [address] [place] [address] Jalen Enciso MD [address] [facility] [address] [place] [address] documented as of this encounter Visit Diagnoses Not on filedocumented in this encounter Care Teams Property And Equipment Clerk Relationship Specialty Start Date End Date Kaylene Brooke MD [address] [place] [address] PCP - General General Internal Medicine 01/27/22 Farooq Marcus MD [address] [place] [address] PCP - General Family Medicine 02/27/22 documented as of this encounter
--- OUTSIDE RECORDS SUMMARY | 2024-12-22 08:50 | XMS_ITS | Encounter Summary ---
Author Organization [employer] ([place], [place], [place], [place]) Address [address] [place] [address] Care Team Providers Care Monorail Hooker Name Role Phone Kaylene Brooke MD Primary Care Provider [phone] Farooq Marcus MD Primary Care Provider [phone] Encounter Details Date Type Department Care Team (Late st Contact Info) Description 09/23/2020 Transcribed Document [facility] [place] Family Medicine [address] [place] [address] ProviderRayray MD [address] [place] [address] Social History Tobacco Use Types Packs/Day Years [...] On: 09/23/2020 13:26 EDT by KATHRIN CODY Manager Of Data Initial Assessment I Previously Documented Living Environment : No qualifying data available. Living Situation : Home Patient Lives With : Spouse Is the Patient a Caregiver at Home? : No Emergency Contact #1 : JAMIE Emergency Contact #1 Phone Number : [phone] Emergency Contact #1 Relationship : SPOUSE Emergency Contact #2 : ADIEL Emergency Contact #2 Phone Number : [phone] Emergency Contact #2 Relationship : SON Enter Doctors Name : Adiel Michelle Does Patient have PCP Listed? : Yes Medical Durable Power of Edge Stitcher Name : No Legal Guardian : No [...] prior to admission resided with spouse, in [facility]. Admitted via ED with sepsis/pancreatits/NSTEMI: oncology/GI and cardiology consulted. Currently on 2 liters O2, clear liquid diet, Lcxojq=3120, bilirubin=1.9, JSU=611, XSM=010, Lactic=2.8, Trop=0.272, HH=8.2/26.3, CT Abd/pelvis=Small pleural effusions [...] Description 05/25/2025 10:45 AM EDT Office Visit [facility] - [address] [place] [address] Jalen Enciso MD [address] [facility] [address] [place] [address] documented as of this encounter Visit Diagnoses Not on filedocumented in this encounter Care Teams Monorail Hooker Relationship Specialty Start Date End Date Kaylene Brooke MD [address] [place] [address] PCP - General General Internal Medicine 01/27/22 Farooq Marcus MD [address] [place] [address] PCP - General Family Medicine 02/27/22 documented as of this encounter
--- OUTSIDE RECORDS SUMMARY | 2024-12-22 08:50 | XMS_ITS | Encounter Summary ---
Author Organization [employer] ([place], [place], [place], [place]) Address [address] [place] [address] Care Team Providers Care Vocational Rehab Consultant Name Role Phone Kaylene Brooke MD Primary Care Provider [phone] Farooq Marcus MD Primary Care Provider [phone] Encounter Details Date Type Department Care Team (Late st Contact Info) Description 10/11/2020 Transcribed Document [place] Family Medicine [facility] [place] [address] ProviderRayray MD [address] [place], [place] [address] Social History Tobacco Use Types Packs/Day Years [...] Description 05/25/2025 10:45 AM EDT Office Visit [facility] - [address] [place] [address] Jalen Enciso MD [address] [place] [address] [place] [address] documented as of this encounter Visit Diagnoses Not on filedocumented in this encounter Care Teams Vocational Rehab Consultant Relationship Specialty Start Date End Date Kaylene Brooke MD [address] [place] [address] PCP - General General Internal Medicine 01/27/22 Farooq Marcus MD [address] [facility] [place] [address] PCP - General Family Medicine 02/27/22 documented as of this encounter
--- OUTSIDE RECORDS SUMMARY | 2024-12-22 08:50 | XMS_ITS | Encounter Summary ---
Author Organization [employer] ([place], [place], [place], [place]) Address [address] [place] [address] Care Team Providers Care Full Charge Bookkeeper Name Role Phone Kaylene Brooke MD Primary Care Provider [phone] Farooq Marcus MD Primary Care Provider [phone] Encounter Details Date Type Department Care Team (Late st Contact Info) Description 09/24/2020 Transcribed Document [facility] [place] Family Medicine [address] [place] [address] ProviderRayray MD [address] [place], [place] [address] Social History Tobacco Use Types Packs/Day Years [...] Thank you for this consult, Mike Godfrey [facility] [place] Goldman, PharmD Electronically signed by [facility], [facility] Conversion Dough Puncher Cerner at 06/29/2022 2:18 PM CDT documented in this encounter Plan of Treatment Upcoming Encounters Date Type Department Care Team (Late st Contact Info) Description 05/25/2025 10:45 AM EDT Office Visit [facility] - [place] [address] [place] [address] Jalen Enciso MD [address] [place] [address] documented as of this encounter Visit Diagnoses Not on filedocumented in this encounter Care Teams Full Charge Bookkeeper Relationship Specialty Start Date End Date Kaylene Brooke MD [address] [place] [address] PCP - General General Internal Medicine 01/27/22 Farooq Marcus MD [address] [place], [place] [address] PCP - General Family Medicine 02/27/22 documented as of this encounter
--- OUTSIDE RECORDS SUMMARY | 2024-12-22 08:50 | XMS_ITS | Encounter Summary ---
Author Organization [employer] ([place], [place], [place], [place]) Address [address] [place] [address] Care Team Providers Care Energy Conservation Technician Name Role Phone Kaylene Brooke MD Primary Care Provider [phone] Farooq Marcus MD Primary Care Provider [phone] Encounter Details Date Type Department Care Team (Late st Contact Info) Description 10/11/2020 Transcribed Document [facility] [place] Family [place] [facility] [place] [address] ProviderRayray MD [address] [place] [address] Social History Tobacco Use Types Packs/Day Years [...] : 10/10/2020 10:58 Assisted by, PT : technical support 1 software engineer/aide Personal Devices : Personal Devices No Devices [...] MATIAS KERN PTA - 10/12/2020 15:34 EDT Prison Goals Ambulation LTG Grid Goal #1 Device [...] MATIAS KERN PTA - 10/12/2020 15:34 EDT [place] PT Charges TRACK REPAIR WORKER PT Therap. Exercise 15 min-TRACK REPAIR WORKER : 1 MATIAS KERN PTA - 10/12/2020 15:34 EDT documented in this encounter Plan of Treatment Upcoming Encounters Date Type Department Care Team (Late st Contact Info) Description 05/25/2025 10:45 AM EDT Office Visit [facility] - [place] [address] [place] [address] Jalen Enciso MD [address] [place] [address] documented as of this encounter Visit Diagnoses Not on filedocumented in this encounter Care Teams Energy Conservation Technician Relationship Specialty Start Date End Date Kaylene Brooke MD [address] [place] [address] PCP - General General Internal Medicine 01/27/22 Farooq Marcus MD [address] [place] [address] PCP - General Family Medicine 02/27/22 documented as of this encounter
--- OUTSIDE RECORDS SUMMARY | 2024-12-22 08:50 | XMS_ITS | Encounter Summary ---
Author Organization [employer] ([place], [place], [place], [place]) Address [address] [place] [address] Care Team Providers Care Rn Assessment Name Role Phone Kaylene Brooke MD Primary Care Provider [phone] Farooq Marcus MD Primary Care Provider [phone] Encounter Details Date Type Department Care Team (Late st Contact Info) Description 10/11/2020 Transcribed Document [facility] [place] [facility] [place] [address] Rayray San MD [address] [place] [address] Social History Tobacco Use Types Packs/Day Years [...] male with hx of esophageal cancer, HLD, DC, and anxiety. His last chemotherapy was 09/17/2020 [...] regular diet. No further dysphagia services warranted, ECONOMICS DEPARTMENT CHAIR will sign off. Please reconsult if new [...] Information Primary Care Physician - MAZIN SHERIDAN MD-[facility] Attending Physician - KEISHA TUCKER MD Admitting [...] # 0.50 x10(3)/uL (Low) 10/11/2020 05:45 EDT [place] % 11.7 % (High) 10/11/2020 05:45 EDT [place] # 0.64 K/uL 10/11/2020 05:45 EDT Eos [...] HARDEN 10/10/2020 16:08 EDT Electronically signed by [facility], [facility] Conversion Bricklayer'S Assistant Cerner at 06/29/2022 2:18 PM CDT documented in this encounter Plan of Treatment Upcoming Encounters Date Type Department Care Team (Late st Contact Info) Description 05/25/2025 10:45 AM EDT [facility] Visit [facility] [address] [place] [address] Jalen Enciso MD [address] [place] [address] documented as of this encounter Visit Diagnoses Not on filedocumented in this encounter Care Teams Rn Assessment Relationship Specialty Start Date End Date Kaylene Brooke MD [address] [place] [address] PCP - General General Internal Medicine 01/27/22 Farooq Marcus MD [address] [facility] [place] [address] PCP - General Family Medicine 02/27/22 documented as of this encounter
--- OUTSIDE RECORDS SUMMARY | 2024-12-22 08:50 | XMS_ITS | Encounter Summary ---
Author Organization [employer] ([place], [place], [place], [place]) Address [address] [place] [address] Care Team Providers Care Residential Appliance Repair Technician Name Role Phone Kaylene Brooke MD Primary Care Provider [phone] Farooq Marcus MD Primary Care Provider [phone] Encounter Details Date Type Department Care Team (Late st Contact Info) Description 09/23/2020 Transcribed Document [facility] [place] Family Medicine [facility] [place] [address] ProviderRayray MD [address] [place], [place] [address] Social History Tobacco Use Types Packs/Day Years Used Date Smoking Tobacco: Never Assessed Sex and Gender Information Value Date Recorded Sex Assigned at Not on file Legal Sex Male 5:14 PM CDT Gender Identity Not on file Sexual Orientation Not on file documented as of this encounter Miscellaneous Notes * Cerner Conversion Note - Rayray ProviderMD - 09/23/2020 2:00 AM CDT Clam Bed Laborer Details Entered On: 09/23/2020 2:38 EDT Performed [...] Description 05/25/2025 10:45 AM EDT Office Visit [facility] - [place] [address] [place] [address] Jalen Enciso MD [address] [place] [address] documented as of this encounter Visit Diagnoses Not on filedocumented in this encounter Care Teams Residential Appliance Repair Technician Relationship Specialty Start Date End Date MendyKaylene dunn MD [address] [place] [address] PCP - General General Internal Medicine 01/27/22 Farooq Marcus MD [address] [facility] [place] [address] PCP - General Family Medicine 02/27/22 documented as of this encounter
--- OUTSIDE RECORDS SUMMARY | 2024-12-22 08:50 | XMS_ITS | Encounter Summary ---
Author Organization [employer] ([place], [place], [place], [place]) Address [address] [place] [address] Care Team Providers Care Medical Office Manager Name Role Phone Kaylene Brooke MD Primary Care Provider [phone] Farooq Marcus MD Primary Care Provider [phone] Encounter Details Date Type Department Care Team (Late st Contact Info) Description 09/23/2020 Transcribed Document [facility] Family Medicine [facility] [place] [address] ProviderRayray MD [address] [place] [address] Social History Tobacco Use Types Packs/Day Years [...] EDT Performed On: 09/24/2020 13:48 EDT by PRSICILLA GARY, OTR/L General Information, OT Visit Type, [...] : 09/22/2020 16:03 Co-treated by, OT : office administrative assistant (SCORER HELPER) Personal Devices : Personal Devices No Devices [...] PRISCILLA GARY OTR/Tre - 09/24/2020 14:05 EDT Intermediate Goals, OT Bathing LTG Grid Goal #1 [...] 09/24/2020 14:05 EDT Electronically signed by Nidia [facility] Conversion Managing Editor Cerner at 07/02/2022 4:56 PM CDT documented in this encounter Plan of Treatment Upcoming Encounters Date Type Department Care Team (Late st Contact Info) Description 05/25/2025 10:45 AM EDT Office Visit [facility] [place] [address] [facility] [address] [place] [address] Jalen Enciso MD [address] [facility] [address] [place] [address] documented as of this encounter Visit Diagnoses Not on filedocumented in this encounter Care Teams Medical Office Manager Relationship Specialty Start Date End Date Kaylene Brooke MD [address] [place] [address] PCP - General General Internal Medicine 01/27/22 Farooq Marcus MD [address] [facility] [place] [address] PCP - General Family Medicine 02/27/22 documented as of this encounter
--- OUTSIDE RECORDS SUMMARY | 2024-12-22 08:50 | XMS_ITS | Encounter Summary ---
Author Organization [employer] ([place], [place], [place], [place]) Address [address] [place] [address] Care Team Providers Care Grill Associate Name Role Phone Kaylene Brooke MD Primary Care Provider [phone] Farooq Marcus MD Primary Care Provider [phone] Encounter Details Date Type Department Care Team (Late st Contact Info) Description 09/08/2020 Transcribed Document [facility] [place] [facility] [place] [address] ProviderRayray MD [address] [place] [address] Social History Tobacco Use Types Packs/Day Years [...] lumen Power Port placement Procedural MD: Elizabeth Nurse Recruiter: None Sedation: IV Conscious Sedation Findings: Successful Right IJ Power Port placement with ultrasound and fluroscopy guidance. Complications: None EBL: Minimal Specimen(s) Removed: None Full report to follow. documented in this encounter Plan of Treatment Upcoming Encounters Date Type Department Care Team (Late st Contact Info) Description 05/25/2025 10:45 AM EDT Office Visit [facility] - [place] [address] [place] [address] Jalen Enciso MD [address] [place] [place] [address] documented as of this encounter Visit Diagnoses Not on filedocumented in this encounter Care Teams Grill Associate Relationship Specialty Start Date End Date Kaylene Brooke MD [address] [place] [address] PCP - General General Internal Medicine 01/27/22 Farooq Marcus MD [address] [facility] [place] [address] PCP - General Family Medicine 02/27/22 documented as of this encounter
--- OUTSIDE RECORDS SUMMARY | 2024-12-22 08:50 | XMS_ITS | Encounter Summary ---
Author Organization [employer] ([place], [place], [place], [place]) Address [address] [place] [address] Care Team Providers Care Automation Qa Analyst Name Role Phone Kaylene Brooke MD Primary Care Provider [phone] Farooq Marcus MD Primary Care Provider [phone] Encounter Details Date Type Department Care Team (Late st Contact Info) Description 01/26/2021 Transcribed Document [facility] [place] [facility] [place] [address] ProviderRayray MD [address] [place], [place] [address] Social History Tobacco Use Types Packs/Day Years Used Date Smoking Tobacco: Never Assessed Sex and Gender Information Value Date Recorded Sex Assigned at Not on file Legal Sex Male 5:14 PM CDT Gender Identity Not on file Sexual Orientation Not on file documented as of this encounter Miscellaneous Notes * Cerner Conversion Note - Historical MD Jaswinder - 01/26/2021 11:09 AM SUPERVISOR PLASTERING Patient: DOYLE DEL ANGEL Age: 85 years Sex: Male : 1935 Associated Diagnoses: None Author: Wayne Bui MD-RAD Pre-OP/Procedure Diagnosis: _Port Removal Indication: Need for iv treatment Procedure Performed: Power Port removal Procedural MD: MELLY Mass Spectrometry Manager: None Sedation: IV Conscious Sedation Findings: Successful Power Port removal Complications: None EBL: Minimal Specimen(s) Removed: None Full report to follow. documented in this encounter Plan of Treatment Upcoming Encounters Date Type Department Care Team (Late st Contact Info) Description 05/25/2025 10:45 AM EDT Office Visit [facility] - [place] [address] [place] [address] Jalen Enciso MD [address] [place] [address] documented as of this encounter Visit Diagnoses Not on filedocumented in this encounter Care Teams Automation Qa Analyst Relationship Specialty Start Date End Date Kaylene Brooke MD [address] [place] [address] PCP - General General Internal Medicine 01/27/22 Farooq Marcus MD [address] [facility] [place] [address] PCP - General Family Medicine 02/27/22 documented as of this encounter
--- OUTSIDE RECORDS SUMMARY | 2024-12-22 08:50 | XMS_ITS | Encounter Summary ---
Author Organization [employer] ([place], [place], [place], [place]) Address [address] [place] [address] Care Team Providers Care Cloth Inspector Name Role Phone Kaylene Brooke MD Primary Care Provider [phone] Farooq Marcus MD Primary Care Provider [phone] Encounter Details Date Type Department Care Team (Late st Contact Info) Description 01/26/2021 Transcribed Document [facility] Family Medicine [address] [place] [address] Rayray San MD [address] [place], [place] [address] Social History Tobacco Use Types Packs/Day Years Used Date Smoking Tobacco: Never Assessed Sex and Gender Information Value Date Recorded Sex Assigned at Not on file Legal Sex Male 5:14 PM CDT Gender Identity Not on file Sexual Orientation Not on file documented as of this encounter Miscellaneous Notes * Cerner Conversion Note - Rayray San MD - 01/26/2021 12:21 PM HORTICULTURAL THERAPIST Patient Education Materials Follows:Disease Wound Infection A [...] at home: Medicines ??? Take or apply gchj-yge-sgrpchp and prescription medicines only as told by [...] cannot use soap and water, use hand pediatric assistant. ? Change your bandage as told by [...] provider. Document Revised: 10/08/2018 Document Reviewed: 10/08/2018 [employer] Patient Education ? 2020 [employer] Pharmacology [...] you are awake and alert. ??? Take bffc-grh-sliahbo and prescription medicines only as told by [...] Reviewed: 01/22/2020 Elsevier Patient Education ? 2020 [employer] documented in this encounter Plan of Treatment Upcoming Encounters Date Type Department Care Team (Late st Contact Info) Description 05/25/2025 10:45 AM EDT [facility] Visit [facility] [address] [place] [address] Jalen Enciso MD [address] [place] [address] documented as of this encounter Visit Diagnoses Not on filedocumented in this encounter Care Teams Cloth Inspector Relationship Specialty Start Date End Date Kaylene Brooke MD [address] [place] [address] PCP - General General Internal Medicine 01/27/22 Farooq Marcus MD [address] [place] [address] PCP - General Family Medicine 02/27/22 documented as of this encounter
--- OUTSIDE RECORDS SUMMARY | 2024-12-22 08:50 | XMS_ITS | Encounter Summary ---
Author Organization [employer] ([place], [place], [place], [place]) Address [address] [place] [address] Care Team Providers Care Senior Project Manager Engineering Name Role Phone Kaylene Brooke MD Primary Care Provider [phone] Farooq Marcus MD Primary Care Provider [phone] Encounter Details Date Type Department Care Team (Late st Contact Info) Description 09/23/2020 Transcribed Document [facility] [place] [address] ProviderRayray MD [address] [place], [place] [address] Social History Tobacco Use Types Packs/Day Years [...] 09/23/2020 9:46 EDT Electronically signed by Nidia [facility] Conversion Set Designer Cerner at 06/29/2022 2:29 PM CDT documented in this encounter Plan of Treatment Upcoming Encounters Date Type Department Care Team (Late st Contact Info) Description 05/25/2025 10:45 AM EDT Office Visit [facility] - [place] [address] [place] [address] Jalen Enciso MD [address] [place] [address] documented as of this encounter Visit Diagnoses Not on filedocumented in this encounter Care Teams Senior Project Manager Engineering Relationship Specialty Start Date End Date MendyKaylene MD [address] [place] [address] PCP - General General Internal Medicine 01/27/22 Farooq Marcus MD [address] [place] [address] PCP - General Family Medicine 02/27/22 documented as of this encounter
--- OUTSIDE RECORDS SUMMARY | 2024-12-22 08:50 | XMS_ITS | Encounter Summary ---
Author Organization [employer] ([place], [place], [place], [place]) Address [address] [place] [address] Care Team Providers Care Airport Guide Name Role Phone Kaylene Brooke MD Primary Care Provider [phone] Farooq Marcus MD Primary Care Provider [phone] Encounter Details Date Type Department Care Team (Late st Contact Info) Description 09/23/2020 Transcribed Document [facility] [place] Family Medicine [facility] [place] [address] ProviderRayray MD [address] [place] [address] Social History Tobacco Use Types Packs/Day Years [...] 0.9% 250 mL 1,250 mg, IV Piggyback, [id number] Continuous: (1) NaCl 0.9% 1,000 mL 1,000 [...] further therapy. Discussed with patient and spouse. Electronically signed by Malina Jacob Conversion Assistant Professor Surgical Technology Cerner at 06/29/2022 2:17 PM CDT documented in this encounter Plan of Treatment Upcoming Encounters Date Type Department Care Team (Late Contact Info) Description 05/25/2025 10:45 AM EDT Office Visit [facility] - [place] [address] [place] [address] Jalen Enciso MD [address] [place] [address] documented as of this encounter Visit Diagnoses Not on filedocumented in this encounter Care Teams Airport Guide Relationship Specialty Start Date End Date MendyKaylene dunn MD [address] [place] [address] PCP - General General Internal Medicine 01/27/22 Farooq Marcus MD [address] [place] [place] [address] PCP - General Family Medicine 02/27/22 documented as of this encounter
--- OUTSIDE RECORDS SUMMARY | 2024-12-22 08:50 | XMS_ITS | Encounter Summary ---
Author Organization [employer] ([place], [place], [place], [place]) Address [address] [place] [address] Care Team Providers Care Agronomy Internship Name Role Phone Kaylene Brooke MD Primary Care Provider [phone] Farooq Marcus MD Primary Care Provider [phone] Encounter Details Date Type Department Care Team (Late st Contact Info) Description 10/11/2020 Transcribed Document [facility] [place] [address] ProviderRayray MD [address] [place] [address] Social History Tobacco Use Types Packs/Day Years [...] other Legal Guardian : No Support Person/Patient Bpm Architect : Yes Support Person/Pt Rep Name : Brandee Del Angel - Contact Password : Cat Support Person/Pt Rep Contact Information : [phone] Want Family/Rep/Phys Notified of Admit : No [...] From : Patient, Spouse Primary Language : Ukrainian Communication Barrier : None Certified Juvenile Probation Officer Needed : No YOVANI BERNSTEIN RN - [...] Scale Risk Level : 25-45 Medium Risk [place] Fall Interventions : Personal items within reach [...] Source : Stated Height Entry Format : [employer] Height, Feet : 6 ft(Converted to: 183 cm, 72 Inch) Height, Inches : 0 Inch(Converted to: 0 ft 0 Inch, 0.00 cm) Clinical Height : 182.88 cm Weight Source : Bed scale Weight Entry Format : [employer] Clinical Dosing Weight : 68.18 kg Weight, Pounds : 150 lb Body Surface Area (BSA) : 1.89 m2 Body Mass Index : 20.4 kg/m2 [place] Body Weight : 77 kg YOVANI BERNSTEIN [...] YOVANI BERNSTEIN RN - 10/11/2020 11:28 EDT [place] Suicide Severity Rating Scale (C-SSRS) CSSRS Past [...] Description 05/25/2025 10:45 AM EDT Office Visit [facility] - [place] [address] [facility] [address] [place] [address] Jalen Enciso MD [address] [place] [address] documented as of this encounter Visit Diagnoses Not on filedocumented in this encounter Care Teams Agronomy Internship Relationship Specialty Start Date End Date Kaylene Brooke MD [address] [place] [address] PCP - General General Internal Medicine 01/27/22 Farooq Marcus MD [address] [place] [address] PCP - General Family Medicine 02/27/22 documented as of this encounter
--- OUTSIDE RECORDS SUMMARY | 2024-12-22 08:50 | XMS_ITS | Encounter Summary ---
Author Organization [employer] ([place], [place], [place], [place]) Address [address] [place] [address] Care Team Providers Care Therapeutic Program Worker Name Role Phone Kaylene Brooke MD Primary Care Provider Farooq Marcus MD Primary Care Provider [phone] Encounter Details Date Type Department Care Team (Late st Contact Info) Description 09/08/2020 Transcribed Document [facility] [address] [place] [address] Rayray San MD [address] [place] [address] Social History Tobacco Use Types Packs/Day Years [...] through the local health department and the [place] Department for Public Health. Those organizations are [...] and need to call 911, notify the pelletizer operator that you have, or think you [...] clean your hands with an alcohol-based hand time clock mechanic that contains at least 60% alcohol. Clean your hands often. ??? Wash hands: Wash your hands often with soap and water for at least 20 seconds when visibly dirty. This is especially important after blowing your nose, coughing or sneezing, and going to the bathroom, and before eating or preparing food. ??? Hand time clock mechanic: Use an alcohol-based hand time clock mechanic with at least 60% alcohol, covering all [...] and water or put them in the geoduck diver. Clean all high-touch surfaces every day. Clean [...] or body fluids on them. ??? Household community engagement representative and disinfectants: Clean the area or item [...] list of disinfectants can be found here: https://www.epa.gov/pesticide-registration/szbr-c-ryihapyojxkdf-yhe-isjbnce-ug rs-cov-2 Oncology Implanted Port Insertion, Care After [...] port is placed, you will get a classroom paraprofessional's information card. The card has information about [...] and water are not available, use hand time clock mechanic. ? Change your dressing as told by [...] it is safe. General instructions ??? Take tlip-ghp-ceafmye and prescription medicines only as told by [...] by your health care provider. Keep the classroom paraprofessional's information card with you at all times. [...] provider. Document Revised: 09/24/2018 Document Reviewed: 09/24/2018 [employer] Patient Education ? 2020 [employer] Pharmacology Moderate Conscious Sedation, Adult, Care [...] you are awake and alert. ??? Take bksa-ojt-aymnuyt and prescription medicines only as told by [...] provider. Document Revised: 02/08/2018 Document Reviewed: 06/17/2016 [employer] Patient Education ? 2019 [employer]. documented in this encounter Plan of Treatment Upcoming Encounters Date Type Department Care Team (Late st Contact Info) Description 05/25/2025 10:45 AM EDT Office Visit [facility] - [address] [place] [address] Jalen Enciso MD [address] [facility] [address] [place] [address] documented as of this encounter Visit Diagnoses Not on filedocumented in this encounter Care Teams Therapeutic Program Worker Relationship Specialty Start Date End Date Kaylene Brooke MD [address] [place] [address] PCP - General General Internal Medicine 01/27/22 Farooq Marcus MD [address] [place] [address] PCP - General Family Medicine 02/27/22 documented as of this encounter
--- OUTSIDE RECORDS SUMMARY | 2024-12-22 08:51 | XMS_ITS | Encounter Summary ---
Author Organization [employer] ([place], [place], [place], [place]) Address [address] [place] [address] Care Team Providers Care Shampoo Technician Name Role Phone Kaylene Brooke MD Primary Care Provider [phone] Farooq Marcus MD Primary Care Provider [phone] Encounter Details Date Type Department Care Team (Late st Contact Info) Description 09/08/2020 Transcribed Document [facility] [place] [address] [place] [address] ProviderRayray MD [address] [place] [address] Social History Tobacco Use Types Packs/Day Years [...] Source : Stated Height Entry Format : Nuckolls Height, Feet : 6 ft(Converted to: 183 cm, 72 Inch) Height, Inches : 0 Inch(Converted to: 0 ft 0 Inch, 0.00 cm) Clinical Height : 182.88 cm Weight Source : Standing scale Weight Entry Format : Nuckolls Clinical Dosing Weight : 72.27 kg Weight, Pounds : 159 lb Body Surface Area (BSA) : 1.93 m2 Body Mass Index : 21.6 kg/m2 [place] Body Weight : 77 kg JUVE GILBERT [...] Rn-Clinical Coordinator I - 09/08/2020 8:39 EDT [place] Suicide Severity Rating Scale (C-SSRS) CSSRS Past [...] 09/08/2020 8:39 EDT General Info Support Person/Patient Lease Out Worker : Yes Support Person/Pt Rep Name : Brandee Del Angel - Support Person/Pt Rep Contact Information : [phone] Want Family/Rep/Phys Notified of Admit : No Emergency Contact #1 : . Emergency Contact #1 Phone Number : . Emergency Contact #1 Relationship : . Emergency Contact #2 : . Emergency Contact #2 Phone Number : . Emergency Contact #2 Relationship : . Primary Language : Cymraes Communication Barrier : None Solar Installation Crew Supervisor Needed : No JUVE GILBERT Rn-Clinical Coordinator [...] Level : 46 or > High Risk [place] Fall Interventions : Adequate lighting, Assistive devices [...] Description 05/25/2025 10:45 AM EDT Office Visit [facility] - [place] [address] [place] [address] Jalen Enciso MD [address] [place] [address] documented as of this encounter Visit Diagnoses Not on filedocumented in this encounter Care Teams Shampoo Technician Relationship Specialty Start Date End Date Kaylene Brooke MD [address] [place] [address] PCP - General General Internal Medicine 01/27/22 Farooq Marcus MD [address] [place], [place] [address] PCP - General Family Medicine 02/27/22 documented as of this encounter
--- OUTSIDE RECORDS SUMMARY | 2024-12-22 08:51 | XMS_ITS | Encounter Summary ---
Author Organization [employer] ([place], [place], [place], [place]) Address [address] [place] [address] Care Team Providers Care Corncob Pipe Supervisor Name Role Phone Kaylene Brooke MD Primary Care Provider [phone] Farooq Marcus MD Primary Care Provider [phone] Encounter Details Date Type Department Care Team (Late st Contact Info) Description 09/27/2020 Transcribed Document [facility] [place] [address] [place] [address] ProviderRayray MD [address] [place], [place] [address] Social History Tobacco Use Types Packs/Day Years [...] elevated but improved -CXR showed bibasilar opacities -[facility]ed, Transition from Zosyn to Augmentin Acute Pancreatitis, [...] months ago with dr topete done at [facility] -pt stopped taking brilinta on his own accord shortly after the PCI as it was making him sob -on aspirin 81 mg daily. plavix started here syncope 2 weeks ago two weeks prior to admission, was at [facility] for this stay Depression -start on antidepressant last week with dr enciso -pt and unsure what medication this was. 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 -follows with dr topete and dr [facility] Dispo: Hope to [place] tomorrow VTE Prophylaxis [...] Man 16 % (Low) 09/27/2020 11:14 EDT [place] Percent Man 16 % (High) 09/27/2020 11:14 [...] Description 05/25/2025 10:45 AM EDT Office Visit [facility] - [place] [place] [address] Jalen Enciso MD [address] [place] [address] documented as of this encounter Visit Diagnoses Not on filedocumented in this encounter Care Teams Corncob Pipe Supervisor Relationship Specialty Start Date End Date Kaylene Brooke MD [address] [place] [address] PCP - General General Internal Medicine 01/27/22 Farooq Marcus MD [address] [place] [address] PCP - General Family Medicine 02/27/22 documented as of this encounter
--- OUTSIDE RECORDS SUMMARY | 2024-12-22 08:51 | XMS_ITS | Encounter Summary ---
Author Organization [employer] ([place], [place], [place], [place]) Address [address] [place] [address] Care Team Providers Care Raw Products Director Name Role Phone Kaylene Brooke MD Primary Care Provider [phone] Farooq Marcus MD Primary Care Provider [phone] Encounter Details Date Type Department Care Team (Late st Contact Info) Description 09/28/2020 Transcribed Document [facility] [place] Family Medicine [address] [place] [address] ProviderRayray MD [address] [place], [place] [address] Social History Tobacco Use Types Packs/Day Years [...] . Electronically signed by Malina Jacob Conversion Risk Control Field Representative Cerner at 06/29/2022 2:11 PM CDT documented in this encounter Plan of Treatment Upcoming Encounters Date Type Department Care Team (Late st Contact Info) Description 05/25/2025 10:45 AM EDT Office Visit [facility] - [address] [facility] [address] [facility] [address] [place] [address] Jalen Enciso MD [address] [place] [address] documented as of this encounter Visit Diagnoses Not on filedocumented in this encounter Care Teams Raw Products Director Relationship Specialty Start Date End Date Kaylene Brooke MD [address] [place] [address] PCP - General General Internal Medicine 01/27/22 Farooq Marcus MD [address] [facility] [place] [address] PCP - General Family Medicine 02/27/22 documented as of this encounter
--- OUTSIDE RECORDS SUMMARY | 2024-12-22 08:51 | XMS_ITS | Encounter Summary ---
Author Organization [employer] ([place], [place], [place], [place]) Address [address] [place] [address] Care Team Providers Care Technical Sales Specialist Name Role Phone Kaylene Brooke MD Primary Care Provider [phone] Farooq Marcus MD Primary Care Provider [phone] Encounter Details Date Type Department Care Team (Late st Contact Info) Description 09/26/2020 Transcribed Document [facility] [place] [facility] [place] [address] ProviderRayray MD [address] [place], [place] [address] Social History Tobacco Use Types Packs/Day Years [...] Description 05/25/2025 10:45 AM EDT Office Visit [facility] - [address] [place] [address] Jalen Enciso MD [address] [facility] [address] [place] [address] documented as of this encounter Visit Diagnoses Not on filedocumented in this encounter Care Teams Technical Sales Specialist Relationship Specialty Start Date End Date Kaylene Brooke MD [address] [place] [address] PCP - General General Internal Medicine 01/27/22 Farooq Marcus MD [address] [place] [place] [address] PCP - General Family Medicine 02/27/22 documented as of this encounter
--- OUTSIDE RECORDS SUMMARY | 2024-12-22 08:51 | XMS_ITS | Encounter Summary ---
Author Organization [employer] ([place], [place], [place], [place]) Address [address] [place] [address] Care Team Providers Care Oncology Registrar Name Role Phone Kaylene Brooke MD Primary Care Provider [phone] Farooq Marcus MD Primary Care Provider [phone] Encounter Details Date Type Department Care Team (Late Contact Info) Description 09/27/2020 Transcribed Document [facility] [place] [facility] [place] [address] ProviderRayray MD [address] [place], [place] [address] Social History Tobacco Use Types Packs/Day Years [...] 09/28/2020 3:17 EDT Electronically signed by Nidia [facility] Conversion Supervisor Estimator And Drafter Cerner at 06/29/2022 2:36 PM CDT documented in this encounter Plan of Treatment Upcoming Encounters Date Type Department Care Team (Late st Contact Info) Description 05/25/2025 10:45 AM EDT Office Visit [facility] - [address] [place] [address] Jalen Enciso MD [address] [place] [address] documented as of this encounter Visit Diagnoses Not on filedocumented in this encounter Care Teams Oncology Registrar Relationship Specialty Start Date End Date Kaylene Brooke MD [address] [place] [address] PCP - General General Internal Medicine 01/27/22 Farooq Marcus MD [address] [place] [address] PCP - General Family Medicine 02/27/22 documented as of this encounter
--- OUTSIDE RECORDS SUMMARY | 2024-12-22 08:51 | XMS_ITS | Encounter Summary ---
Author Organization [employer] ([place], [place], [place], [place]) Address [address] [place] [address] Care Team Providers Care Director Of Logistics Name Role Phone Kaylene Brooke MD Primary Care Provider Farooq Marcus MD Primary Care Provider [phone] Encounter Details Date Type Department Care Team (Late st Contact Info) Description 09/28/2020 Transcribed Document [facility] [place] Family Medicine [address] [place] [address] Rayray San MD [address] [place], [place] [address] Social History Tobacco Use Types Packs/Day Years [...] caused your condition. General instructions ??? Take iiew-vgg-eletsnm and prescription medicines only as told by your health care provider. ??? Do not drive or use heavy machinery while taking prescription pain medicine. ??? Ask your health care provider if the medicine prescribed to you can cause constipation. You may need to take steps to prevent or treat constipation, such as: ? Take an zraa-knz-zmboylv or prescription medicine for constipation. ? Eat [...] Reviewed: 09/02/2018 [employer] Patient Education ? 2019 [employer] Electronically signed by Malina Jacob Conversion Bilingual Elementary School Teacher Cerner at 06/29/2022 2:15 PM CDT documented in this encounter Plan of Treatment Upcoming Encounters Date Type Department Care Team (Late st Contact Info) Description 05/25/2025 10:45 AM EDT Office Visit [facility] - [address] [place] [address] Jalen Enciso MD [address] [place] [address] documented as of this encounter Visit Diagnoses Not on filedocumented in this encounter Care Teams Director Of Logistics Relationship Specialty Start Date End Date Kaylene Brooke MD [address] [place] [address] PCP - General General Internal Medicine 01/27/22 Farooq Marcus MD [address] [place] [address] PCP - General Family Medicine 02/27/22 documented as of this encounter
--- OUTSIDE RECORDS SUMMARY | 2024-12-22 08:51 | XMS_ITS | Clinical Summary ---
Author Organization [facility] ([place], [place], [place], [place]) Address [address] [place] [address] Care Team Providers Care Ripsawyer Name Role Phone Farooq Marcus MD Primary Care Provider [phone] Allergies Active Allergy Reactions Criticality Noted Date [...] Type Department Care Team Description 12/17/2024 Telephone [facility] - [address] [place] [address] Jalen Enciso MD Appointment 12/09/2024 Telephone [facility] - [place] [address] [place] [address] Jalen Enciso MD medical records request 11/24/2024 2:00 PM EDT Office Visit [facility] - [place] [address] [place] [address] Jalen Enciso MD Adenocarcinoma of gastroesophageal junction (HCC) (Primary Dx) 11/24/2024 Travel 11/21/2024 Telephone [facility] - [place] [address] [place] [address] Jalen Enciso MD Appointment 09/29/2024 Telephone [facility] - [place] [address] [place] [address] Jalen Enciso MD Leg Swelling [...] Date Scotty rded Speak language other than Vietnamese at home Not on file 03/22/2023 Want [...] 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 [place], [place] [address] PCP - General Family Medicine 02/27/22
--- OUTSIDE RECORDS SUMMARY | 2024-12-22 08:51 | XMS_ITS | Encounter Summary ---
Author Organization [employer] ([place], [place], [place], [place]) Address [address] [place] [address] Care Team Providers Care Treater Helper Name Role Phone Kaylene Brooke MD Primary Care Provider [phone] Farooq Marcus MD Primary Care Provider [phone] Encounter Details Date Type Department Care Team (Late st Contact Info) Description 09/28/2020 Transcribed Document [facility] [facility] [place] [address] ProviderRayray MD [address] [place], [place] [address] Social History Tobacco Use Types Packs/Day Years [...] 09/28/2020 15:25 EDT Electronically signed by Nidia [facility] Conversion Sprinkler Fitter Cerner at 06/29/2022 2:14 PM CDT documented in this encounter Plan of Treatment Upcoming Encounters Date Type Department Care Team (Late st Contact Info) Description 05/25/2025 10:45 AM EDT Office Visit [facility] - [address] [place] [address] Jalen Enciso MD [address] [place] [address] [place] [address] documented as of this encounter Visit Diagnoses Not on filedocumented in this encounter Care Teams Treater Helper Relationship Specialty Start Date End Date Kaylene Brooke MD [address] [place] [address] PCP - General General Internal Medicine 01/27/22 Farooq Marcus MD [address] [facility] [place] [address] PCP - General Family Medicine 02/27/22 documented as of this encounter
--- OUTSIDE RECORDS SUMMARY | 2024-12-22 08:51 | XMS_ITS | Encounter Summary ---
Author Organization [employer] ([place], [place], [place], [place]) Address [address] [place] [address] Care Team Providers Care Agency Development Manager Name Role Phone Kaylene Brooke MD Primary Care Provider [phone] Farooq Marcus MD Primary Care Provider [phone] Encounter Details Date Type Department Care Team (Late st Contact Info) Description 09/08/2020 Transcribed Document [facility] [place] Medicine [address] [place] [address] ProviderRayray MD [address] [place] [address] Social History Tobacco Use Types Packs/Day Years [...] 05/25/2025 10:45 AM EDT Office Visit [facility] [address] [place] [address] Jalen Enciso MD [address] [place] [address] documented as of this encounter Visit Diagnoses Not on filedocumented in this encounter Care Teams Agency Development Manager Relationship Specialty Start Date End Date Kaylene Brooke MD [address] [place] [address] PCP - General General Internal Medicine 01/27/22 Farooq Marcus MD [address] [place] [address] PCP - General Family Medicine 02/27/22 documented as of this encounter
--- OUTSIDE RECORDS SUMMARY | 2024-12-22 08:51 | XMS_ITS | Encounter Summary ---
Author Organization [employer] ([place], [place], [place], [place]) Address [address] [place] [address] Care Team Providers Care Police Crime Scene Technician Name Role Phone Kaylene Brooke MD Primary Care Provider Farooq Marcus MD Primary Care Provider [phone] Encounter Details Date Type Department Care Team (Late st Contact Info) Description 09/27/2020 Transcribed Document [place] [facility] [place] [address] ProviderRayray MD [address] [place], [place] [address] Social History Tobacco Use Types Packs/Day Years Used Date Smoking Tobacco: Never Assessed Sex and Gender Information Value Date Recorded Sex Assigned at Not on file Legal Sex Male 5:14 PM CDT Gender Identity Not on file Sexual Orientation Not on file documented as of this encounter Miscellaneous Notes * Cerner Conversion Note - Rayray ProviderMD - 09/27/2020 2:00 AM CDT Machine Maintenance Servicer Details Entered On: 09/28/2020 3:17 EDT Performed [...] Description 05/25/2025 10:45 AM EDT Office Visit [facility] - [address] [place] [address] Jalen Enciso MD [address] [place] [address] documented as of this encounter Visit Diagnoses Not on filedocumented in this encounter Care Teams Police Crime Scene Technician Relationship Specialty Start Date End Date MendyKaylene dunn MD [address] [place] [address] PCP - General General Internal Medicine 01/27/22 Farooq Marcus MD [address] [facility] [place] [address] PCP - General Family Medicine 02/27/22 documented as of this encounter
--- OUTSIDE RECORDS SUMMARY | 2024-12-22 08:51 | XMS_ITS | Encounter Summary ---
Author Organization [employer] ([place], [place], [place], [place]) Address [address] [place] [address] Care Team Providers Care Slope Hoist Operator Name Role Phone Kaylene Brooke MD Primary Care Provider [phone] Farooq Marcus MD Primary Care Provider [phone] Encounter Details Date Type Department Care Team (Late st Contact Info) Description 09/27/2020 Transcribed Document [facility] [place] [facility] [place] [address] ProviderRayray MD [address] [place], [place] [address] Social History Tobacco Use Types Packs/Day Years [...] On: 09/27/2020 15:37 EDT by ELIZABETH LAMBERT, RN-Repair Coil WinderPhp Software Engineer Progress Note Discharge Arrangements : Patient Post-Acute Information Patient Name: DOYLE DEL ANGEL Gender: Male : 39 Age: 84 Years No Post-Acute Placement(s) Listed No Post-Acute Service(s) Listed No [place] Referral(s) Listed Is the Patient Meeting Medical Necessity : Yes Did you Attend Multidisciplinary Rounds? : Yes ELIZABETH LAMBERT, RN-Repair Coil Winder - 09/27/2020 15:37 EDT Narrative Progress Note Narrative Progress Note : rrs mod boost 3 5/5 day s cm spoke to daughter and patient . cm arranged for [facility] . choice /im needed . family [...] CM will continue to follow. ELIZABETH LAMBERT RN-Repair Coil Winder - 09/24/20 16:39:43 ELIZABETH LAMBERT RN-Repair Coil Winder - 09/27/2020 15:37 EDT Electronically signed by Nidia [facility] Conversion Transfusion Aide Cerner at 06/29/2022 2:10 PM CDT documented in this encounter Plan of Treatment Upcoming Encounters Date Type Department Care Team (Late st Contact Info) Description 05/25/2025 10:45 AM EDT Office Visit [facility] - [address] [place] [address] Jalen Enciso MD [address] [facility] [address] [place] [address] documented as of this encounter Visit Diagnoses Not on filedocumented in this encounter Care Teams Slope Hoist Operator Relationship Specialty Start Date End Date Kaylene Brooke MD [address] [place] [address] PCP - General General Internal Medicine 01/27/22 Farooq Marcus MD [address] [place] [address] PCP - General Family Medicine 02/27/22 documented as of this encounter
--- OUTSIDE RECORDS SUMMARY | 2024-12-22 08:51 | XMS_ITS | Encounter Summary ---
Author Organization [employer] ([place], [place], [place], [place]) Address [address] [place] [address] Care Team Providers Care Tax Compliance Officer Name Role Phone Kaylene Brooke MD Primary Care Provider [phone] Farooq Marcus MD Primary Care Provider [phone] Encounter Details Date Type Department Care Team (Late st Contact Info) Description 09/26/2020 Transcribed Document [facility] [place] [address] [place] [address] ProviderRayray MD [address] [place], [place] [address] Social History Tobacco Use Types Packs/Day Years [...] but improved -CXR showed bibasilar opacities -Vanc AR'ed, continue zosyn Acute Pancreatitis, improved -On admission [...] 7-8 range Monitor CAD -per pt s/p [facility] and PCI [address] topete done at [facility] -pt stopped taking brilinta on his own accord shortly after the PCI as it was making him sob -on aspirin 81 mg daily. plavix started here syncope 2 weeks ago two weeks prior to admission, was at [facility] for this stay Depression -start on antidepressant last week with dr enciso -pt and unsure what medication this was. 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 -follows with dr topete and dr COSTA in [place] Dispo: Advance diet today and evaluate tolerance [...] ALYC # 0 K/uL 09/26/2020 06:05 EDT [place] Percent Man 8 % (High) 09/26/2020 06:05 EDT [place] Percent Man 2 % 09/26/2020 06:05 EDT [place] Percent Man 1 % 09/26/2020 06:05 EDT RBC Morphology Normal 09/26/2020 06:[address] Estimate Decreased (Abnormal) 09/26/2020 06:05 EDT Slide Review Add Diff 09/26/2020 06:05 EDT documented in this encounter Plan of Treatment Upcoming Encounters Date Type Department Care Team (Late st Contact Info) Description 05/25/2025 10:45 AM EDT Office Visit [facility] [place] [address] [place] [address] Jalen Enciso MD [address] [place] [address] documented as of this encounter Visit Diagnoses Not on filedocumented in this encounter Care Teams Tax Compliance Officer Relationship Specialty Start Date End Date Kaylene Brooke MD [address] [place] [address] PCP - General General Internal Medicine 01/27/22 Farooq Marcus MD [address] [place] [address] PCP - General Family Medicine 02/27/22 documented as of this encounter
--- OUTSIDE RECORDS SUMMARY | 2024-12-22 08:51 | XMS_ITS | Encounter Summary ---
Author Organization [employer] ([place], [place], [place], [place]) Address [address] [place] [address] Care Team Providers Care Wire Frame Lampshade Maker Name Role Phone Kaylene Brooke MD Primary Care Provider [phone] Farooq Marcus MD Primary Care Provider [phone] Encounter Details Date Type Department Care Team (Late st Contact Info) Description 09/28/2020 Transcribed Document [facility] [place] Medicine [address] [place] [address] ProviderRayray MD [address] [place], [place] [address] Social History Tobacco Use Types Packs/Day Years [...] - 09/28/2020 17:09 EDT Electronically signed by [facility], [facility] Conversion Methods Time Analyst Cerner at 06/29/2022 2:21 PM CDT documented in this encounter Plan of Treatment Upcoming Encounters Date Type Department Care Team (Late st Contact Info) Description 05/25/2025 10:45 AM EDT Office Visit [facility] [place] [address] [facility] [address] [place] [address] Jalen Enciso MD [address] [facility] [address] [place] [address] documented as of this encounter Visit Diagnoses Not on filedocumented in this encounter Care Teams Wire Frame Lampshade Maker Relationship Specialty Start Date End Date Kaylene Brooke MD [address] [place] [address] PCP - General General Internal Medicine 01/27/22 Farooq Marcus MD [address] [place] [address] PCP - General Family Medicine 02/27/22 documented as of this encounter
--- OUTSIDE RECORDS SUMMARY | 2024-12-22 08:51 | XMS_ITS | Encounter Summary ---
Author Organization [employer] ([place], [place], [place], [place]) Address [address] [place] [address] Care Team Providers Care Cardiology Consultant Name Role Phone Kaylene Brooke MD Primary Care Provider [phone] Farooq Marcus MD Primary Care Provider Encounter Details Date Type Department Care Team (Late st Contact Info) Description 09/08/2020 Transcribed Document [facility] [place] [facility] [place] [address] ProviderRayray MD [address] [place] [address] Social History Tobacco Use Types Packs/Day Years [...] Description 05/25/2025 10:45 AM EDT Office Visit [facility] [place] [address] [place] [address] Jalen Enciso MD [address] [place] [address] documented as of this encounter Visit Diagnoses Not on filedocumented in this encounter Care Teams Cardiology Consultant Relationship Specialty Start Date End Date Kaylene Brooke MD [address] [place] [address] PCP - General General Internal Medicine 01/27/22 Farooq Marcus MD [facility] [address] [facility] [place] [address] PCP - General Family Medicine 02/27/22 documented as of this encounter
--- OUTSIDE RECORDS SUMMARY | 2024-12-22 08:51 | XMS_ITS | Encounter Summary ---
Author Organization [employer] ([place], [place], [place], [place]) Address [address] [place] [address] Care Team Providers Care Drug Safety Coordinator Name Role Phone Kaylene Brooke MD Primary Care Provider [phone] Farooq Marcus MD Primary Care Provider [phone] Encounter Details Date Type Department Care Team (Late st Contact Info) Description 09/14/2020 Transcribed Document [facility] [place] [facility] [place] [address] ProviderRayray MD [address] [id number] Social History Tobacco Use Types Packs/Day Years [...] below: Significant Changes: Electronically signed by Interface, [facility] Conversion Superintendent Concrete Mixing Plant Cerner at 06/29/2022 2:15 PM CDT documented in this encounter Plan of Treatment Upcoming Encounters Date Type Department Care Team (Late st Contact Info) Description 05/25/2025 10:45 AM EDT Office Visit [facility] [place] [address] [place] [address] Jalen Enciso MD [address] [place] [address] documented as of this encounter Visit Diagnoses Not on filedocumented in this encounter Care Teams Drug Safety Coordinator Relationship Specialty Start Date End Date Kaylene Brooke MD [address] [place] [address] PCP - General General Internal Medicine 01/27/22 Farooq Marcus MD [address] [place] [address] PCP - General Family Medicine 02/27/22 documented as of this encounter
--- OUTSIDE RECORDS SUMMARY | 2024-12-22 08:51 | XMS_ITS | Encounter Summary ---
Author Organization [employer] ([place], [place], [place], [place]) Address [address] [place] [address] Care Team Providers Care Vice Provost Name Role Phone Kaylene Brooke MD Primary Care Provider [phone] Farooq Marcus MD Primary Care Provider [phone] Encounter Details Date Type Department Care Team (Late st Contact Info) Description 09/28/2020 Transcribed Document [facility] Family Medicine [facility] [place] [address] ProviderRayray MD [address], [place] [address] Social History Tobacco Use Types Packs/Day Years [...] Date 09/28/2020 Primary Care Provider [facility] Discharge Diagnosis Pancreatitis 09/22/2020 K85.90 ICD-10-CM [...] 0.76 m/s E/A ratio: 0.81 m/s Volume [id number] LV length: 6.35 cm ml Volume iareqwkz26.41 ml LVOT diameter: 2.06 cm Normal sized [...] coronary artery disease last with PCI in [facility] about 2 months ago as well as pacemaker for heart rhythm , possibly afib who presented to [facility] on 09/22 for evaluation of abd [...] stent placement about 2 months ago in [facility] he was started on brilinta and aspirin and didnt like how it made me feel thus he stopped taking the brilinta. He had syncopal episode after taking metoprolol and protonix and thus stopped taking those too about 2 weeks ago. He was also hospitalized at [facility] then. He reports significant weight loss [...] elevated but improved -CXR showed bibasilar opacities [facility] from Zosyn to Augmentin--completed course -Follow [...] months ago with dr topete done at [facility] -pt stopped taking brilinta on his own accord shortly after the PCI as it was making him sob -on aspirin 81 mg daily. plavix started here syncope 2 weeks ago two weeks prior to admission, was at [facility] for this stay Depression -start on antidepressant, (they couldn't give any more info), last week with dr enciso 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 -follows with dr topete and dr COSTA in [place] Vital Signs T: 36.6 ??C TMIN: 36.6 [...] Home Care Discharge Follow Up [facility] - Within 5 to 7 days [...] Description 05/25/2025 10:45 AM EDT Office Visit [facility] [place] [address] [place] [address] Jalen Enciso MD [address] [place] [address] documented as of this encounter Visit Diagnoses Not on filedocumented in this encounter Care Teams Vice Provost Relationship Specialty Start Date End Date Kaylene Brooke MD [address] [place] [address] PCP - General General Internal Medicine 01/27/22 Farooq Marcus MD [facility] [place] [address] PCP - General Family Medicine 02/27/22 documented as of this encounter
--- OUTSIDE RECORDS SUMMARY | 2024-12-22 08:51 | XMS_ITS | Encounter Summary ---
Author Organization [employer] ([place], [place], [place], [place]) Address [address] [place] [address] Care Team Providers Care Senior Mechanical Engineer Name Role Phone Kaylene Brooke MD Primary Care Provider [phone] Farooq Marcus MD Primary Care Provider [phone] Encounter Details Date Type Department Care Team (Late st Contact Info) Description 09/27/2020 Transcribed Document [facility] [place] [address] [place] [address] ProviderRayray MD [address] [place], [place] [address] Social History Tobacco Use Types Packs/Day Years [...] Description 05/25/2025 10:45 AM EDT Office Visit [facility] [place] [address] [place] [address] Jalen Enciso MD [address] [facility] [address] [place] [address] documented as of this encounter Visit Diagnoses Not on filedocumented in this encounter Care Teams Senior Mechanical Engineer Relationship Specialty Start Date End Date Kaylene Brooke MD [address] [place] [address] PCP - General General Internal Medicine 01/27/22 Farooq Marcus MD [address] [place] [address] PCP - General Family Medicine 02/27/22 documented as of this encounter
[2024-12-22 08:53] LABS: Hematocrit 42.8 % (42.0-52.0); Hemoglobin 14.2 g/dL (14.1-18.0); Immature Granulocytes % 1.0 %; Mean Corpuscular HGB Conc 33.2 g/dL (31.8-35.4); Mean Corpuscular Hemoglobin 31.5 pg (27.0-31.2); Mean Corpuscular Volume 94.9 fl (80-94); Nucleated Red Blood Cells % 0 %; Platelet Count 166 K/mm3 (142-424); Red Blood Count 4.51 M/mm3 (4.60-6.20); Red Cell Distribution Width-SD 44.0 fL; White Blood Count 6.2 K/mm3 (4.8-10.8)
[2024-12-22 08:57] LABS: Lactate Venous 1.7 mmol/L (0.4-2.0); VBG HCO3 28.1 mmol/L (23-30); VBG PCO2 52.1 mmol/L (35-51); VBG PH 7.35 mmol/L (7.31-7.41); VBG PO2 43.1 mmol/L (28-40)
[2024-12-22 08:59] LABS: Coronavirus 19, PCR Not Detected (NotDetected); Influenza A, PCR Not Detected (NotDetected); Influenza B, PCR Not Detected (NotDetected)
[2024-12-22 09:00] LABS: INR 0.98 (0.9-1.1); Prothrombin Time 10.9 seconds (10.1-12.5)
[2024-12-22 09:10] LABS: Potassium 4.6 mmoL/L (3.5-5.1); Sodium 140 mmol/L (136-145)
[2024-12-22 09:13] LABS: Alanine Aminotransferase 23 U/L (12-78); Alkaline Phosphatase 82 U/L (38-126); Aspartate Amino Transferase 34 U/L (17-59); Bilirubin,Total 1.3 mg/dl (0.2-1.3); Blood Urea Nitrogen 23 mg/dl (9-20); Calcium 8.8 mg/dl (8.4-10.2); Carbon Dioxide 30 mmol/L (22.0-30.0); Creatinine Clearance Estimated 49 mL/min (50-200); Creatinine,Serum 1.10 mg/dl (0.66-1.25); Estimated Glomerular Filt Rate 63 ml/min (>60); GFR (African American) 77 ML/MIN (>60); Glucose 75 mg/dl (74-100); Total Protein,Serum 7.2 g/dl (6.3-8.2)
[2024-12-22 09:14] LABS: Magnesium 2.0 mg/dl (1.6-2.3)
[2024-12-22 09:24] LABS: NT Pro Brain Natriuretic Pep. 269 pg/mL (0-450)
[2024-12-22 09:30] LABS: Troponin I < 0.01 ng/ml (0.00-0.034)
[2024-12-22] MEDS: ACETAMINOPHEN 1,000MG/100ML VIAL 1000 MG IV (09:35)
--- NOTE | 2024-12-22 09:49 | PC.NURSE ---
I spoke with Alex, the [employer] quality control technician. He states the pts pacemaker is working appropriately. The pt has not had any arrhythmias or shocks.
[2024-12-22] MEDS: IOPAMIDOL-370 (76%);100ML BOTTLE 160 ML IV (10:08)
[2024-12-22] MEDS: 0.9 % SODIUM CHLORIDE 50 ML VIAL IV (10:08)
[2024-12-22 11:14] LABS: Anion Gap 10.6 mEq/L (5-15); Chloride 104 mmol/L (98-107)
[2024-12-22 11:16] LABS: Albumin Level 3.6 g/dl (3.5-5.0); Albumin/Globulin Ratio 1.0 (1.1-1.8); Globulin 3.6 g/dL (1.3-3.2)
== END 2024-12-22 11:59 | disposition home or self-care (01) ==
PROVIDERS: Emergency Provider Emergency Medicine
DX: R07.9 Chest pain, unspecified (principal); R51.9 Headache, unspecified; I11.0 Hypertensive heart disease with heart failure; I50.22 Chronic systolic (congestive) heart failure; Z86.79 Personal history of other diseases of the circulatory system; Z95.0 Presence of cardiac pacemaker
CPT/HCPCS: 70450; 70496; 70498; 71275; 80053; 82803; 83735; 83880; 84484; 85025; 85610; 87636; 93005; 96374; 99285; J0131; Q9967

== ENCOUNTER 2025-01-15 11:06 | Day surgery (SDC) | payer MEDICARE, SELFPAY ==
--- NOTE | 2025-01-14 16:33 | EXP.HP ---
History of Present Illness *Admission Date: 01/15/25 *History of present illness: Mr. Del Angel is an 89-year-old gentleman who is here for diagnostic EGD. 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 The patient has followed with oncology (Dr. Devin Juarez MD presently but also Dr. Kaylene Brooke and Dr. Jalen Enciso). The patient did initially have palliative radiotherapy and systemic chemotherapy (Taxol and Herceptin) from June 2020 through September 2020. His PET scan imaging in March 2023 showed some hilar hypermetabolism. He has not had a repeat EGD since February 2023. Recent chest CT from both 12/12/2024 (and later on 12/22) showed some mild wall thickening of the distal esophagus which is stable and no adenopathy identified. The patient does report worsening of his dysphagia and some globus sensation and cough. He also has had some constipation. He reports no hematemesis. The examination is deemed medically necessary for diagnostic EGD. The patient has been seen, interviewed and examined prior to the procedure by both myself and the anesthesia provider. [facility] Disclaimer: The information contained in this section may have been updated after the patient was seen, as this information can be updated by other users. Medical History Palpitations SOB (shortness of breath) Left ankle pain Knee pain Nausea & vomiting Abnormal echocardiogram Dizziness Pneumonia Gastrocnemius muscle tear Pleurisy Foot pain, right Ankle pain, right Crushing injury of leg, right Forehead contusion Lip laceration Medication side effect Takotsubo cardiomyopathy Leukopenia Esophageal cancer Fever Abnormal cardiovascular stress test Atypical chest pain NSTEMI (non-ST elevated myocardial infarction) Esophageal abnormality Dyspnea Chronic systolic heart failure Anxiety about health URI (upper respiratory infection) Seasonal allergies Vertigo Sinusitis Mitral regurgitation Cardiomyopathy Renal insufficiency Syncope and collapse Left bundle branch block Hypertensive disorder 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 Nonadherence to medication Palpitations Fall Atypical angina Recent myocardial infarction Chest pain Surgical History Status post cardiac pacemaker procedure Family History Other No significant family history Social History Smoking Status: Never smoker alcohol intake: never substance use type: denies use current occupational status: retired Travel in the last 8 weeks?: Inside the [place] household members: spouse housing: house current occupational exposures/hazards: No caffeine: Yes Have you lived/traveled outside US in past 30 days?: No Contact w/someone who lives/traveled outside US past 30 days?: No Exposure to someone with infectious disease in past 14 days?: No Do you have a fever (greater than 100.4 F or 38 C)?: No Have you tested positive for COVID-19?: No Exposed to someone with COVID-19 in past 14 days?: No Do you have a sore throat?: No Do you have a cough?: No Do you have any weakness?: No Do you have any diarrhea?: No Are you experiencing any unusual bleeding?: No Do you have any muscle aches/pain?: No Do you have any abdominal pain?: No Are you experiencing loss of taste or smell?: No Other Medical History Have you received the Flu Vaccine for this season: No Have you received the Pneumonia Vaccine: Yes Review of Systems Review of Systems Review of systems (narrative): Negative *Cardiovascular Comments: Negative *Gastrointestinal Comments: Negative *Genitourinary Comments: Negative *Musculoskeletal Comments: Negative *Neurologic Comments: Negative Meds Home Medications and Allergies Home Medications ?Medication ?Instructions ?Recorded ?Confirmed ?Type pantoprazole 40 mg tablet,delayed 40 mg PO BID 07/04/20 01/15/25 History release lorazepam 1 mg tablet 1 mg PO BID Anxiety 05/14/22 01/14/25 History ksvlfvmw-tk-ogbpz 300 mcg-K 60 1 tab PO DAILY 03/07/23 01/15/25 History mcg-lycop 600 mcg-lutein 300 mcg tablet (Centrum Silver Men) aspirin 81 mg tablet,delayed 81 mg PO DAILY #30 tabs 12/02/24 01/15/25 Rx release (Adult Low Dose Aspirin) ramipril 5 mg capsule 5 mg PO DAILY #30 caps 12/23/24 01/15/25 Rx New Prescriptions to Start Prescriptions: Allergies Allergy/AdvReac Type Severity Reaction Status Date / Time oxycodone AdvReac Agitated Verified 01/15/25 12:01 Exam *Routine HEENT Exam Head: Present normocephalic Eye: Present EOMI and PERRL ENT: Present mucous membranes moist *Routine Neck Exam Neck: Present supple *Routine Respiratory Exam Respiratory: Present CTA bilaterally *Routine Cardiovascular Exam Cardiovascular: Present RRR *Routine Abdominal Exam Abdominal: Present soft and normoactive bowel sounds; Absent tenderness *Routine Rectal Exam Rectal:: deferred *Routine Genitalia Exam Genitalia:: deferred *Routine Extremities Exam Extremities: Absent cyanosis, clubbing or edema *Routine Skin Exam Skin: Present warm; Absent rash *Routine Neurological Exam Neurological: Present alert and oriented X3 Assessment and Plan *Assessment and plan (1) Dysphagia: Status: Acute Category: Medical Code(s): R13.10 - Dysphagia, unspecified (2) History of esophageal cancer: Status: Acute Category: Medical Code(s): Z85.01 - Personal history of malignant neoplasm of esophagus (3) Esophageal thickening: Status: Acute Category: Medical Code(s): K22.89 - Other specified disease of esophagus Plan A/P: 1. Dysphagia with history of esophageal cancer and CT scan showing thickening of the distal esophagus is the preprocedural diagnosis. The patient will be anesthetized/sedated using MAC sedation. The patient has been seen and examined. Cardiac and lung assessment prior to the examination is stable. Proceed with planned diagnostic EGD.
--- NOTE | 2025-01-15 06:48 | HMH.PROCNOTE ---
[facility] Procedure Note Date: 01/15/25 Time: 13:47 Procedure Note:: Upper Endoscopy Procedure Report: Esophagogastroduodenoscopy with cold biopsies and TTS balloon dilation Endoscopost: Ollie Marshall II, MD Referring Physician: Cori Marcus M.D. Date of Procedure: January 15, 2025 Equipment: Olympus GIF-1100 standard upper endoscope Sedation: MAC sedation Indications: Mr. Del Angel is an 89-year-old gentleman who is here for diagnostic EGD. 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 The patient has followed with oncology (Dr. Devin Juarez MD presently but also Dr. Kaylene Brooke and Dr. Jalen Enciso). The patient did initially have palliative radiotherapy and systemic chemotherapy (Taxol and Herceptin) from June 2020 through September 2020. His PET scan imaging in March 2023 showed some hilar hypermetabolism. He has not had a repeat EGD since February 2023. Recent chest CT from both 12/12/2024 (and later on 12/22) showed some mild wall thickening of the distal esophagus which is stable and no adenopathy identified. The patient does report worsening of his dysphagia and some globus sensation and cough. He also has had some constipation. He reports no hematemesis. The examination is deemed medically necessary for diagnostic EGD. Procedure: Prior to the procedure, a history and physical exam was performed, and patient's medications and allergies were reviewed. The risks, benefits and alternatives of the sedation and procedure were discussed with the patient. All questions were answered and informed consent was obtained. The patient was brought to the procedure room. Patient identification and proposed procedure were verified by the physician and the nurse. The patient was placed in a left lateral decubitus position and the scope was passed under direct vision. Throughout the procedure, the patient's blood pressure, pulse, and oxygen saturations were monitored continuously. The upper GI endoscopy was accomplished without difficulty. The patient tolerated the procedure well. Findings: The scope was passed directly into the upper esophagus and advanced to the third portion of the duodenum. The post bulbar duodenum and duodenal bulb were normal with normal mucosa and conniventes. The scope was withdrawn through a normal duodenal bulb and pylorus into the stomach. There was minimal antral gastropathy in the body and fundus of the stomach were normal. Upon retroflexion, there was a very small 1 to 2 cm hiatal hernia. The scope was then withdrawn into the esophagus. At the GE junction there was a rounded 4 mm area of raised lobular mucosa on the posterior wall of the esophagus and this was biopsied to rule out recurrent esophageal adenocarcinoma. There was evidence of radiation change and surface erosion in the other three quarters circumference of the GE junction but there did not appear to be any friable fungating mass. Multiple cold biopsies were taken from this small nodular raised lesion. Next, this area was dilated to 60 Urdu/20 mm with a TTS hydrostatic balloon. The mid and proximal esophagus and mucosa were normal. Impression: 1. 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 The patient should have improvement of his dysphagia with dilation. If this is recurrent distal esophageal cancer, we we will need to discuss with oncology/Dr. Juarez to see if there is any further treatment that can be provided versus surgical management.
[2025-01-15 11:54] VITALS: BMI 22.5
[2025-01-15 12:04] VITALS: BP 136/68; PULSE 64; RESP 18; TEMP 36.6; O2SAT 95
[2025-01-15] MEDS: LACTATED RINGERS 1000ML 1,000 ML 50 ML IV (12:15)
--- NOTE | 2025-01-15 12:41 | EXP.ANES.CKL ---
[facility] Disclaimer: The information contained in this section may have been updated after the patient was seen, as this information can be updated by other users. Medical History Palpitations SOB (shortness of breath) Left ankle pain Knee pain Nausea & vomiting Abnormal echocardiogram Dizziness Pneumonia Gastrocnemius muscle tear Pleurisy Foot pain, right Ankle pain, right Crushing injury of leg, right Forehead contusion Lip laceration Medication side effect Takotsubo cardiomyopathy Leukopenia Esophageal cancer Fever Abnormal cardiovascular stress test Atypical chest pain NSTEMI (non-ST elevated myocardial infarction) Esophageal abnormality Dyspnea Chronic systolic heart failure Anxiety about health URI (upper respiratory infection) Seasonal allergies Vertigo Sinusitis Mitral regurgitation Cardiomyopathy Renal insufficiency Syncope and collapse Left bundle branch block Hypertensive disorder 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 Nonadherence to medication Palpitations Fall Atypical angina Recent myocardial infarction Chest pain Surgical History Status post cardiac pacemaker procedure Family History Other No significant family history Social History Smoking Status: Never smoker alcohol intake: never substance use type: denies use current occupational status: retired Travel in the last 8 weeks?: Inside the [place] household members: spouse housing: house current occupational exposures/hazards: No caffeine: Yes Have you lived/traveled outside US in past 30 days?: No Contact w/someone who lives/traveled outside US past 30 days?: No Exposure to someone with infectious disease in past 14 days?: No Do you have a fever (greater than 100.4 F or 38 C)?: No Have you tested positive for COVID-19?: No Exposed to someone with COVID-19 in past 14 days?: No Do you have a sore throat?: No Do you have a cough?: No Do you have any weakness?: No Do you have any diarrhea?: No Are you experiencing any unusual bleeding?: No Do you have any muscle aches/pain?: No Do you have any abdominal pain?: No Are you experiencing loss of taste or smell?: No [facility] Anesthesia Checklist Patient Identification Patient Identification: Arm Band and Verbal (Name & ) Structural Data Admitted From: Home Planned Operative Procedure/s: EGD Consent for Planned Operative Procedure(s) Verified: Yes Verified Documents: Surgical Consent NPO Status Verified Time NPO: 00:00 Chart Verification Results Verified: ECG Additional verifications Anesthesia Reactions: No Airway Assessment Mallampati Score:: Class III C-Spine Mobility Assessed: Yes TMJ Mobility Assessed: Yes Dentition: Edentulous Neurological Assessment Level of Consciousness: Awake, Alert and Appropriate Hx Seizures: No Numbness or tingling in extremities: No Anesthesia Plan Anesthesia Risk discussed: Yes Anesthesia Plan: Verified ASA Class: III Anesthesia Type: MAC
[2025-01-15 13:50] VITALS: BP 134/62; PULSE 68; RESP 18; TEMP 36.3; O2SAT 94
[2025-01-15 14:00] VITALS: BP 114/59; PULSE 67; RESP 18; TEMP 36.3; O2SAT 94
[2025-01-15 14:10] VITALS: BP 106/58; PULSE 65; RESP 16; TEMP 36.3; O2SAT 94
[2025-01-15 14:20] VITALS: BP 115/62; PULSE 62; RESP 18; TEMP 36.3; O2SAT 96
== END 2025-01-15 15:03 | disposition home or self-care (01) ==
PROVIDERS: PCP Family Medicine; Visit Provider Internal Medicine Gastroenterology
PROC: 0DJ08ZZ Inspection of Upper Intestinal Tract, Via Natural or Artificial Opening Endoscopic (ICD-10-PCS; CPT 43239; principal; 2025-01-15 13:00)
DX: C16.0 Malignant neoplasm of cardia (principal); K59.00 Constipation, unspecified; K31.89 Other diseases of stomach and duodenum; K44.9 Diaphragmatic hernia without obstruction or gangrene; K22.89 Other specified disease of esophagus; I10 Essential (primary) hypertension; Z85.01 Personal history of malignant neoplasm of esophagus; Z88.5 Allergy status to narcotic agent
CPT/HCPCS: 43239; 43249; 88305; C1726; J2003; J2704; J7120

== ENCOUNTER 2025-02-27 15:02 | Emergency (ER) | payer MEDICARE, SELFPAY ==
--- OUTSIDE RECORDS SUMMARY | 2025-01-26 08:56 | XMS_ITS | Encounter Summary ---
Author Organization [employer] ([place], [place], [place], [place], [place]) Address [address] [place] [address] Care Team Providers Care Bench Repair Technician Name Role Phone Farooq Marcus MD Primary Care Provider [phone] Reason for Referral * CAT Scan (Routine) - Pending Review Specialty Diagnoses / Procedures Referred By Contac t Referred To Contact Radiology Diagnoses Malignant neoplasm of thoracic esophagus (HCC) Procedures PET/CT Skull Base-Mid Thigh (Whole Body) Devin Juarez MD [address] [place] [address] Phone: tel: fax: Referral ID Status Reason Start Date Expiration Date V isits Requested Visits Authorized [id number] Pending Review 01/23/2025 01/23/2026 1 1 Reason for Visit * CAT Scan (Routine) - Pending Review Specialty Diagnoses / Procedures Referred By Contac t Referred To Contact Radiology Diagnoses Malignant neoplasm of thoracic esophagus (HCC) Procedures PET/CT Skull Base-Mid Thigh (Whole Body) Devin Juarez MD [address] [place] [address] Phone: tel: fax: Referral ID Status Reason Start Date Expiration Date V isits Requested Visits Authorized [id number] Pending Review 01/23/2025 01/23/2026 1 1 Encounter Details Date Type Department Care Team (Latest Contact Info) Description 01/26/2025 8:56 AM EST - 01/26/2025 11:59 PM EST Hospital Encounter [facility] PET CT - [address] [place] [address] Devin Juarez MD [address] [facility] [address] [place] [address] Malignant neoplasm of thoracic esophagus (HCC) Discharge Disposition: Home or Self Care Social History Tobacco Use Types Packs/Day Years [...] Date Scotty rded Speak language other than Guyanese at home Not on file 03/22/2023 Want [...] 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 12/27/2021 metoprolol succinate (TOPROL-XL) 25 MG 24 hr tablet Take 1 tablet (25 mg total) by mouth daily. 03/10/2022 montelukast (SINGULAIR) 10 mg tablet Take 1 tablet (10 mg total) by mouth daily. 11/14/2022 pantoprazole (PROTONIX) 40 MG tablet Take 1 tablet (40 mg total) by mouth 2 (two) times daily. 01/24/2022 ramipriL (ALTACE) 10 MG capsule Take 1 capsule (10 mg total) by mouth daily. 03/07/2023 documented as of this encounter Plan of Treatment Upcoming Encounters Date Type Department Care Team (Late st Contact Info) Description 05/25/2025 10:45 AM EDT Office Visit [facility] - [address] [place] [phone] Jalen Enciso MD [address] [place] [address] 06/23/2025 10:00 AM EDT Appointment [facility] - [address] [place] [phone] Román White MD [address] [place] [address] documented as of this encounter Procedures Procedure Name Priority Date/Time Associated Diagnosis Comments P.E.T./CT SKULL BASE TO MID-THIGH Routine 01/26/2025 10:39 AM EST Malignant neoplasm of thoracic esophagus (HCC) documented in this encounter Results * PET/CT Skull Base-Mid Thigh (Whole Body) (01/26/2025 10:39 AM EST) Anatomical Region Laterality Modality Positron Emissio n Tomography (PET) 01/26/2025 1:09 PM EST Impressions 01/26/2025 2:48 PM EST 1. Hypermetabolism involving a thickened esophagus consistent with the patient's known primary lesion. 2. Mildly worsening hypermetabolism involving paratracheal and AP window lymph nodes. Images reviewed, interpreted, and dictated by Dr. Sampson Laws. Transcribed by Heath Camargo PA-C. Narrative 01/26/2025 2:48 PM EST PROCEDURE: PET/CT IMAGING, SKULL BASE TO MID THIGH INDICATION: Recurrence of gastroesophageal cancer, restaging exam. TECHNIQUE: 14.68 mCi of 18-FDG was injected intravenously with a fasting blood glucose of 92 mg/dl. PET/CT images were obtained from skull base to mid thigh. COMPARISON: 07/20/2023 FINDINGS: There is no FDG avid cervical lymphadenopathy. A left-sided chest port is present. There is a 9 mm right paratracheal lymph node that is hypermetabolic with a maximum SUV of 3.9 as compared to 2.2 previously. An AP window lymph node demonstrates a maximum SUV of 4.6 as compared to 3.7 on the prior. This is stable in size at 21 mm. There is a small focus of left hilar hypermetabolism with a maximum SUV of 7.2. This has actually improved from the prior study where maximum SUV was 8.3. A right hilar lymph node is unchanged. There is a small hiatal hernia. There is hypermetabolism in the distal esophagus with new hypermetabolism demonstrating a maximum SUV of 11.3. This is likely consistent with the patient's known primary esophageal neoplasm. The liver, spleen, renal collecting systems, and bladder demonstrate expected FDG uptake. There is no suprarenal hypermetabolism to suggest adrenal metastasis. There is persistent cecal hypermetabolism and hypermetabolism involving the ascending colon which appears to be intraluminal and favored to be physiologic.. There is no hypermetabolic abdominal or pelvic lymphadenopathy. No hypermetabolic bone lesions are identified. Procedure Note Sampson Laws MD - 01/26/2025 PROCEDURE: PET/CT IMAGING, SKULL BASE TO MID THIGH INDICATION: Recurrence of gastroesophageal cancer, restaging exam. TECHNIQUE: 14.68 mCi of 18-FDG was injected intravenously with a fasting blood glucose of 92 mg/dl. PET/CT images were obtained from skull base to mid thigh. COMPARISON: 07/20/2023 FINDINGS: There is no FDG avid cervical lymphadenopathy. A left-sided chest port is present. There is a 9 mm right paratracheal lymph node that is hypermetabolic with a maximum SUV of 3.9 as compared to 2.2 previously. An AP window lymph node demonstrates a maximum SUV of 4.6 as compared to 3.7 on the prior. This is stable in size at 21 mm. There is a small focus of left hilar hypermetabolism with a maximum SUV of 7.2. This has actually improved from the prior study where maximum SUV was 8.3. A right hilar lymph node is unchanged. There is a small hiatal hernia. There is hypermetabolism in the distal esophagus with new hypermetabolism demonstrating a maximum SUV of 11.3. This is likely consistent with the patient's known primary esophageal neoplasm. The liver, spleen, renal collecting systems, and bladder demonstrate expected FDG uptake. There is no suprarenal hypermetabolism to suggest adrenal metastasis. There is persistent cecal hypermetabolism and hypermetabolism involving the ascending colon which appears to be intraluminal and favored to be physiologic.. There is no hypermetabolic abdominal or pelvic lymphadenopathy. No hypermetabolic bone lesions are identified. IMPRESSION: 1. Hypermetabolism involving a thickened esophagus consistent with the patient's known primary lesion. 2. Mildly worsening hypermetabolism involving paratracheal and AP window lymph nodes. Images reviewed, interpreted, and dictated by Dr. Sampson Laws. Transcribed by Heath Camargo PA-C. Devin Juarez MD IM CT ORDERABLES Final Result documented in this encounter Visit Diagnoses Diagnosis Malignant neoplasm of thoracic esophagus (HCC) Malignant neoplasm of thoracic esophagus documented in this encounter Care Teams Bench Repair Technician Relationship Specialty Start Date End Date Farooq Marcus MD [address] [place] [phone] PCP - General Family Medicine 02/27/22 documented as of this encounter
--- OUTSIDE RECORDS SUMMARY | 2025-01-29 08:22 | XMS_ITS | Encounter Summary ---
Author Organization [employer] ([place], [place], [place], [place], [place]) Address [address] [place] [address] Care Team Providers Care Natural Resources Instructor Name Role Phone Farooq Marcus MD Primary Care Provider [phone] Reason for Referral * Radiation Therapy (Routine) - Authorized Specialty Diagnoses / Procedures Referred By Contac t Referred To Contact Radiation Oncology Diagnoses Gastroesophageal cancer (HCC) Procedures Rad Onc CT Simulation CHG INTENSITY MODULATED RADIATION TX DLVR COMPLEX Román White MD [address] [place] [address] Phone: tel: fax: Referral ID Status Reason Start Date Expiration Date V isits Requested Visits Authorized [id number] Authorized 01/30/2025 06/08/2025 1 10 Reason for Visit * Reason Comments Consult Radiation Encounter Details Date Type Department Care Team (Latest Contact Info) Description 01/29/2025 8:22 AM EST - 01/29/2025 11:59 PM EST Hospital Encounter [facility] - [address] [place] [phone] Román White MD [address] [place] [address] Gastroesophageal cancer (HCC) (Primary Dx) Discharge Disposition: Home or Self Care Social [...] Date Scotty rded Speak language other than Macedonian at home Not on file 03/22/2023 Want [...] 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 LORazepam (ATIVAN) 1 MG tablet Take 1 [...] daily. 03/07/2023 documented as of this encounter Progress Notes * Román White MD - 01/29/2025 9:00 AM EST Radiation Oncology Follow Up Evaluation Patient Name: Rancho Del Angel : 1935 Date: 01/29/2025 Referring Physicians: Patient Care Team: Farooq Marcus MD as PCP - General (Family Medicine) Diagnosis: 1. 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 Del Angel is a pleasant 89 y.o. year old male. He initially presented to medical attention with dysphagia in 2020. An EGD revealed a distal esophageal mass which was biopsy consistent with adenocarcinoma. Staging imaging at the time confirmed metastatic disease. He completed palliative radiation to the esophageal mass with my partner, Dr. Abraham, as described above in June 2020. He received Taxol/Herceptin through September 2020 with clinical complete response. With his complete response and given his advanced age he was observed without additional systemic therapy. A routine EGD in February 2023 did confirm recurrent superficially invasive adenocarcinoma but he has received no treatment for this. He continued to be followed when a PET/CT in January 2025demonstrated a significant increase in hypermetabolism in the distal esophagus with increasing clinical dysphagia. I was asked to evaluate him for palliative reirradiation. Interval History: Mr. Del Angel, other than his worsening dysphagia, is actually doing remarkably well. He has no other complaints or pains. Allergies: Allergies Allergen Reactions Oxycodone Anxiety 1hallucinations Medications: Current Outpatient Medications: aspirin 81 MG EC tablet, Take 1 tablet (81 mg total) by mouth daily., Disp: , Rfl: LORazepam (ATIVAN) 1 MG tablet, Take 1 tablet (1 mg total) by mouth 3 (three) times daily., Disp: ,Rfl: pantoprazole (PROTONIX) 40 MG tablet, Take 1 tablet (40 mg total) by mouth 2 (two) times daily., Disp: , Rfl: ramipriL (ALTACE) 10 MG capsule, Take 1 capsule (10 mg total) by mouth daily., Disp: , Rfl: metoprolol succinate (TOPROL-XL) 25 MG 24 hr tablet, Take 1 tablet (25 mg total) by mouth daily. (Patient not taking: Reported on 01/29/2025.), Disp: , Rfl: montelukast (SINGULAIR) 10 mg tablet, Take 1 tablet (10 mg total) by mouth daily. (Patient not taking: Reported on 01/29/2025), Disp: , Rfl: Labs: No visits with results within 1 Week(s) from this visit. Latest known visit with [...] 07/20/2023 0.01 0.00 - 0.20 K/??L Final Imaging: Results for orders placed during the hospital encounter of 01/26/25 PET/CT Skull Base-Mid Thigh (Whole Body) Narrative PROCEDURE: PET/CT IMAGING, SKULL BASE TO MID [...] lymphadenopathy. No hypermetabolic bone lesions are identified. Impression 1. Hypermetabolism involving a thickened esophagus consistent with the patient's known primary lesion. 2. Mildly worsening hypermetabolism involving paratracheal and AP window lymph nodes. These images were personally reviewed. Of note, the noted mediastinal adenopathy has been present on prior PET/CT and has not appeared to change or particularly worsen. Pathology: No new pathology for review. Performance Status: ECOG Performance Status: Restricted in physically strenuous activity but ambulatory and able to carry out work of a light or sedentary nature, e.g., light house work, office work Physical Exam: Vitals: 01/29/25 0843 BP: 112/82 BP Location: Right arm Patient Position: Sitting Cuff Size: Adult Pulse: 72 Resp: 16 Temp: 97.6 ??F (36.4 ??C) SpO2: 95% Weight: 76.2 kg (168 lb) Pain Assessment Pain Score: 0-No pain Physical Exam Vitals reviewed. Constitutional: General: He is not in acute distress. Appearance: Normal appearance. HENT: Head: Normocephalic and atraumatic. Mouth/Throat: Mouth: Mucous membranes are moist. Pharynx: Oropharynx is clear. Eyes: Extraocular Movements: Extraocular movements intact. Conjunctiva/sclera: Conjunctivae normal. Pulmonary: Effort: Pulmonary effort is normal. No respiratory distress. Breath sounds: No wheezing. Abdominal: General: Abdomen is flat. There is no distension. Musculoskeletal: General: No swelling or deformity. Normal range of motion. Cervical back: Normal range of motion and neck supple. Right lower leg: No edema. Left lower leg: No edema. Skin: General: Skin is warm. Coloration: Skin is not jaundiced. Findings: No rash. Neurological: General: No focal deficit present. Mental Status: He is alert and oriented to person, place, and time. Mental status is at baseline. Cranial Nerves: No cranial nerve deficit. Psychiatric: Mood and Affect: Mood normal. Behavior: Behavior normal. Assessment: Mr. Del Angel is a pleasant 89 y.o. year old male. He has no diagnosis of metastatic esophageal adenocarcinoma. He had an excellent response to just a few months of Taxol/Herceptin in 2020 and at this point still has no definitive evidence of recurrent metastatic disease. Unfortunately, he does have local recurrence of his primary mass. Given that he is 4 years out fromhis prior palliative radiation I think it is very reasonable to consider retreatment. I would recommend the same dose as he received before, 3000 cGy in 10 fractions. I will tentatively schedule him for CT simulation tomorrow, January 30, 2025. I anticipate starting his treatments right after . I plan to use IMRT in order to minimize dose to surrounding structures such as spinal cord in the reirradiation setting. I personally discussed this case and my recommendations with his medical oncologist, Dr. Juarez. A total of 40 minutes was spent at today's visit reviewing patient records, in [id number] consultation with the patient, and in coordination and documentation of care. Plan of Care for Pain: Patient has no complaints of pain OR PRICING ANALYST * Román White MD - 01/29/2025 9:00 AM EST Rad Onc Treatment Planning CT Simulation: Department: [facility] Is this for a new course of treatment? Yes Treatment Goal: Palliative Treatment Site: Lower esophagus Laterality: None Prescription Name: Distal esophagus reRT Initial Dose (cGy): 3,000 Initial fractions: 10 Treatment Technique: VMAT Indications for IMRT: An immediately adjacent area has been previrously irradiated and abutting portals must be established with high precision. The target volume is in close proximity to critical structures that must be protected. CT Technique: 4DCT Treatment Machine: VerticalResponse Slice Thickness: 3mm Patient Position: Supine Arms above head Immobilization Devices: Wingboard Vak lock Knee bolster Simulation Instructions: Head neutral Pacemaker? Yes Contrast (per protocol unless otherwise indicated): Oral Image-guided radiation therapy: CBCT Verification Hexapod/6DoF Image Guidance Frequency: Daily (Comment: Center at iso, align to bone/soft tissue, call MD for shifts > 1cm) Physics: Weekly physics check Special physics consult Fuse images Explanatory comment: Fuse PET/CT as well as prior dose for composite evaluation Chemotherapy: None OR PRICING ANALYST documented in this encounter Plan of Treatment Upcoming Encounters Date Type Department Care Team (Late st Contact Info) Description 05/25/2025 10:45 AM EDT Office Visit [facility] - [place] [place] [address] Jalen Enciso MD [address] [place] [address] 06/23/2025 10:00 AM EDT Appointment [facility] - [address] [address] [place] [address] Román White MD [address] [place] [address] Scheduled Orders Name Type Priority Associated Diagnoses Orde r Schedule Rad Onc CT Simulation Radiation Oncology Routine Gastroesophageal cancer (HCC) Expected: 01/30/2025, Expires: 04/30/2025 documented as of this encounter Visit Diagnoses Diagnosis 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 [address] PCP - General Family Medicine 02/27/22 documented as of this encounter
--- OUTSIDE RECORDS SUMMARY | 2025-01-30 09:15 | XMS_ITS | Encounter Summary ---
Author Organization [employer] ([place], [place], [place], [place], [place]) Address [address] [place] [address] Care Team Providers Care Claim Rep Name Role Phone Farooq Marcus MD Primary Care Provider [phone] Encounter Details Date Type Department Care Team (Latest Contact Info) Description 01/30/2025 9:15 AM EST - 01/30/2025 11:59 PM [facility] Hospital Encounter [facility] - [address] [place] [address] Román White MD [address] [place] [address] Discharge Disposition: Home or Self Care Social [...] Date Scotty rded Speak language other than Polish at home Not on file 03/22/2023 Want [...] 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 [...] Description 05/25/2025 10:45 AM EDT Office Visit [facility] - [address] [place] [phone] Jalen Enciso MD [address] [facility] [facility] [address] [place] [address] 06/23/2025 10:00 AM EDT Appointment [facility] - [address] [place] [phone] Román White MD [address] [place] [address] documented as of this encounter Visit Diagnoses Not on filedocumented in this encounter Care Teams Claim Rep Relationship Specialty Start Date End Date Farooq Marcus MD [address] [place] [address] PCP - General Family Medicine 02/27/22 documented as of this encounter
--- OUTSIDE RECORDS SUMMARY | 2025-02-10 09:49 | XMS_ITS | Encounter Summary ---
Author Organization [employer] ([place], [place], [place], [place], [place]) Address [address] [place] [address] Care Team Providers Care Blast Furnace Supervisor Name Role Phone Farooq Marcus MD Primary Care Provider Reason for Visit * Reason Comments Radiation Weekly Status Check Encounter Details Date Type Department Care Team (Latest Contact Info) Description 02/10/2025 9:49 AM EST - 02/10/2025 11:59 PM [facility] En[facility] - [facility] [address] [place] [address] Román White MD [address] [facility] [address] [place] [address] Gastroesophageal cancer (HCC) (Primary Dx) [...] Date Scotty rded Speak language other than Slovak at home Not on file 03/22/2023 Want [...] 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 file Not on file documented as of this encounter Last Filed Vital Signs Vital Sign Reading Time Taken Comments Blood Pressure 129/69 02/10/2025 10:58 AM EST Pulse 68 02/10/2025 10:58 AM EST Temperature 36.8 C (98.2 F) 02/10/2025 10:58 AM EST Respiratory Rate 18 02/10/2025 10:58 AM EST Oxygen Saturation 93% 02/10/2025 10:58 AM EST Inhaled Oxygen Concentration - - Weight 75.9 kg (167 lb 6.4 oz) 02/10/2025 10:58 AM EST Height - - Body Mass Index 22.7 11/24/2024 1:39 PM EDT documented in this [...] Progress Notes * Román White MD - 02/10/2025 10:30 AM EST RADIATION ONCOLOGY TREATMENT NOTE Patient: [place] : 1935 Date: 02/10/2025 Diagnosis: 1. 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 Radiation Oncology Treatment Prescription: 3000 cGy in 10 fractions to the recurrent esophageal mass Number of Fractions Completed: Total Dose: 300 cGy Chemotherapy: None Subjective: No issues with first fraction Vitals: Vitals: 02/10/25 1058 BP: 129/69 BP Location: Right arm Patient Position: Sitting Cuff Size: Adult Pulse: 68 Resp: 18 Temp: 98.2 ??F (36.8 ??C) SpO2: 93% Weight: 75.9 kg (167 lb 6.4 oz) Pain Assessment Pain Score: 0-No pain Physical Exam: General: AO x 3, NAD HEENT: PER, EOMI, no scleral icterus noted Respiratory: Breathing symmetric, non labored Extremities: No clubbing, cyanosis, or edema Skin: No rashes or lesions visible or palpable Neuro: Normal speech, no focal deficits Performance Status: ECOG 1 Labs: No visits with results within 1 [...] 07/20/2023 0.01 0.00 - 0.20 K/??L Final All labs have been reviewed. Assessment / Plan: [x] Stable [x] Tolerating therapy [] Worsening [] Mass decreasing [] Mass progressing [] Other Discussion: Discussed potential side effects including esophagitis acutely and potential for perforation given reRT but I think that is low risk given total cumulative dose and time in between courses Plan of Care for Pain: Palliative RT Radiation: Continue radiation as planned AREHOUSE SUPERVISOR documented in this encounter Plan of Treatment Upcoming Encounters Date Type Department Care Team (Late st Contact Info) Description 05/25/2025 10:45 AM EDT Office Visit [facility] - [facility] [address] [place] [address] Jalen Enciso MD [address] [facility] [address] [place] [address] 06/23/2025 10:00 AM EDT Appointment [facility] [address] [place] [address] Román White MD [address] [place] [address] documented as of this encounter Visit Diagnoses Diagnosis 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
--- OUTSIDE RECORDS SUMMARY | 2025-02-10 09:49 | XMS_ITS | Encounter Summary ---
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 Not [...] Description 05/25/2025 10:45 AM EDT Office Visit [facility] - [place] [address] [place] [address] Jalen Enciso MD [address] [facility] [address] [place] [address] 06/23/2025 10:00 AM EDT Appointment [facility] - [facility] [address] [place] [address] Román White MD [address] [place] [address] documented as of this encounter Visit Diagnoses Not on filedocumented in this encounter Care Teams Abrasive Worker Relationship Specialty Start Date End Date Farooq Marcus MD [address] [place] [address] PCP - General Family Medicine 02/27/22 documented as of this encounter
--- OUTSIDE RECORDS SUMMARY | 2025-02-11 09:25 | XMS_ITS | Encounter Summary ---
Author Organization [employer] ([place], [place], [place], [place], [place]) Address [address] [place] [address] Care Team Providers Care Roof Service Technician Name Role Phone Farooq Marcus MD Primary Care Provider [phone] Encounter Details Date Type Department Care Team (Latest Contact Info) Description 02/11/2025 9:25 AM EST - 02/11/2025 11:59 PM [facility] Hospital Encounter [facility] [place] [facility] - [place] [address] [place] [address] Román White MD [address] [place] [address] Discharge Disposition: Home or Self [...] Date Scotty rded Speak language other than Bahraini at home Not on file 03/22/2023 Want [...] 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 [address] [place] [address] 06/23/2025 10:00 AM EDT Appointment [facility] - [facility] [address] [place] [address] Román White MD [address] [place] [address] documented as of this encounter Visit Diagnoses Not on filedocumented in this encounter Care Teams Roof Service Technician Relationship Specialty Start Date End Date Farooq Marcus MD [address] [place] [address] PCP - General Family Medicine 02/27/22 documented as of this encounter
--- OUTSIDE RECORDS SUMMARY | 2025-02-12 09:38 | XMS_ITS | Encounter Summary ---
Author Organization [employer] ([place], [place], [place], [place], [place]) Address [address] [place] [address] Care Team Providers Care Grocery Team Member Name Role Phone Farooq Marcus MD Primary Care Provider [phone] Encounter Details Date Type Department Care Team (Latest Contact Info) Description 02/12/2025 9:38 AM EST - 02/12/2025 11:59 PM [facility] Hospital Encounter [place] [facility] - [address] [place] [address] Román White MD [address] [place] [address] Discharge Disposition: Home or Self [...] Date Scotty rded Speak language other than Jordanian at home Not on file 03/22/2023 Want [...] 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 Not [...] Description 05/25/2025 10:45 AM EDT Office Visit [facility] - [place] [address] [place] [address] Jalen Enciso MD [address] [facility] [address] [place] [address] 06/23/2025 10:00 AM EDT Appointment [facility] - [facility] [address] [place] [address] Román White MD [address] [place] [address] documented as of this encounter Visit Diagnoses Not on filedocumented in this encounter Care Teams Grocery Team Member Relationship Specialty Start Date End Date Farooq Marcus MD [address] [place] [address] PCP - General Family Medicine 02/27/22 documented as of this encounter
--- OUTSIDE RECORDS SUMMARY | 2025-02-13 09:45 | XMS_ITS | Encounter Summary ---
Author Organization [employer] ([place], [place], [place], [place], [place]) Address [address] [place] [address] Care Team Providers Care Menu Planner Name Role Phone Farooq Marcus MD Primary Care Provider [phone] Encounter Details Date Type Department Care Team (Latest Contact Info) Description 02/13/2025 9:45 AM EST - 02/13/2025 11:59 PM [facility] Hospital Encounter [place] [facility] - [address] [place] [address] Román White MD [address] [place] [address] Discharge Disposition: Home or Self [...] Date Scotty rded Speak language other than South African at home Not on file 03/22/2023 Want [...] 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 Not [...] Description 05/25/2025 10:45 AM EDT Office Visit [place] [facility] - [place] [address] [place] [address] Jalen Enciso MD [address] [facility] [address] [place] [address] 06/23/2025 10:00 AM EDT Appointment [facility] [facility] - [place] [address] [place] [address] Román White MD [address] [place] [address] documented as of this encounter Visit Diagnoses Not on filedocumented in this encounter Care Teams Menu Planner Relationship Specialty Start Date End Date Farooq Marcus MD [address] [place] [address] PCP - General Family Medicine 02/27/22 documented as of this encounter
--- OUTSIDE RECORDS SUMMARY | 2025-02-16 10:06 | XMS_ITS | Encounter Summary ---
Author Organization [employer] ([place], [place], [place], [place], [place]) Address [address] [place] [address] Care Team Providers Care Vmware Administrator Name Role Phone Farooq Marcus MD Primary Care Provider [phone] Encounter Details Date Type Department Care Team (Latest Contact Info) Description 02/16/2025 10:06 AM EST - 02/16/2025 11:59 PM [facility] Hospital Encounter [place] [facility] - [address] [place] [address] Román White MD [address] [place] [address] Discharge Disposition: Home or Self [...] Date Scotty rded Speak language other than Bangladeshi at home Not on file 03/22/2023 Want [...] 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 file Not [...] Description 05/25/2025 10:45 AM EDT Office Visit [place] [facility] - [place] [address] [place] [address] Jalen Enciso MD [address] [facility] [address] [place] [address] 06/23/2025 10:00 AM EDT Appointment [place] [facility] - [place] [address] [place] [address] Román White MD [address] [place] [address] documented as of this encounter Visit Diagnoses Not on filedocumented in this encounter Care Teams Vmware Administrator Relationship Specialty Start Date End Date Farooq Marcus MD [address] [place] [address] PCP - General Family Medicine 02/27/22 documented as of this encounter
--- OUTSIDE RECORDS SUMMARY | 2025-02-17 09:42 | XMS_ITS | Encounter Summary ---
Author Organization [employer] ([place], [place], [place], [place], [place]) Address [address] [place] [address] Care Team Providers Care Fixed Wing Pilot Name Role Phone Farooq Marcus MD Primary Care Provider [phone] Reason for Visit * Reason Comments Radiation Weekly Status Check Encounter Details Date Type Department Care Team (Latest Contact Info) Description 02/17/2025 9:42 AM EST - 02/17/2025 11:59 PM [facility] Hospital Encounter [place] [facility] - [place] [address] [place] [address] Román White MD [address] [facility] [address] [place] [address] Gastroesophageal cancer (HCC) (Primary Dx) [...] Date Scotty rded Speak language other than Micronesian at home Not on file 03/22/2023 Want [...] 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 Not on file Not on file documented as of this encounter Last Filed Vital Signs Vital Sign Reading Time Taken Comments Blood Pressure 144/66 02/17/2025 10:45 AM EST Pulse 70 02/17/2025 10:45 AM EST Temperature 36.5 C (97.7 F) 02/17/2025 10:45 AM EST Respiratory Rate 18 02/17/2025 10:45 AM EST Oxygen Saturation 97% 02/17/2025 10:45 AM EST Inhaled Oxygen Concentration - - Weight 75.9 kg (167 lb 6.4 oz) 02/17/2025 10:45 AM EST Height - - Body Mass [...] Progress Notes * Román White MD - 02/17/2025 10:30 AM EST RADIATION ONCOLOGY TREATMENT NOTE Patient: [place] : 1935 Date: 02/17/2025 Diagnosis: 1. 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 Radiation Oncology Treatment Prescription: 3000 cGy in 10 fractions to the recurrent esophageal mass Number of Fractions Completed: Total Dose: 1800 cGy Chemotherapy: None Subjective: Tolerating radiation well, denies any issues. Occasional difficulty with swallowing when he first starts eating but self limiting Vitals: Vitals: 02/17/25 1045 BP: (!) 144/66 BP Location: Left arm Patient Position: Sitting Cuff Size: Adult Pulse: 70 Resp: 18 Temp: 97.7 ??F (36.5 ??C) SpO2: 97% Weight: 75.9 kg (167 lb 6.4 oz) [...] decreasing [] Mass progressing [] Other Discussion: Follow up in 4 months or sooner as needed. Continue follow up with Dr. 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 documented in this encounter Plan of Treatment Upcoming Encounters Date Type Department Care Team (Late st Contact Info) Description 05/25/2025 10:45 AM EDT Office Visit [place] [facility] - [place] [address] [place] [address] Jalen Enciso MD [address] [place] [address] 06/23/2025 10:00 AM EDT Appointment [place] [facility] - [place] [address] [place] [address] Román White MD [address] [place] [address] documented as of this encounter Visit Diagnoses Diagnosis 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 [address] PCP - General Family Medicine 02/27/22 documented as of this encounter
--- OUTSIDE RECORDS SUMMARY | 2025-02-17 09:42 | XMS_ITS | Encounter Summary ---
Author Organization [employer] ([place], [place], [place], [place], [place]) Address [address] [place] [address] Care Team Providers Care Ending Machine Operator Name Role Phone Farooq Marcus MD Primary Care Provider [phone] Encounter Details Date Type Department Care Team (Latest Contact Info) Description 02/17/2025 9:42 AM EST - 02/17/2025 11:59 PM [facility] Hospital Encounter [place] [facility] - [address] [place] [address] Román White MD [address] [place] [address] Discharge Disposition: Home or Self [...] Date Scotty rded Speak language other than Grenadian at home Not on file 03/22/2023 Want [...] 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 Not [...] Description 05/25/2025 10:45 AM EDT Office Visit [facility] [facility] - [place] [address] [place] [address] Jalen Enciso MD [address] [facility] [address] [place] [address] 06/23/2025 10:00 AM EDT Appointment [place] [facility] - [place] [address] [place] [address] Román White MD [address] [place] [address] documented as of this encounter Visit Diagnoses Not on filedocumented in this encounter Care Teams Ending Machine Operator Relationship Specialty Start Date End Date Farooq Marcus MD [address] [place] [address] PCP - General Family Medicine 02/27/22 documented as of this encounter
--- OUTSIDE RECORDS SUMMARY | 2025-02-18 09:50 | XMS_ITS | Encounter Summary ---
Author Organization [employer] ([place], [place], [place], [place], [place]) Address [address] [place] [address] Care Team Providers Care Staff Development Coordinator Name Role Phone Farooq Marcus MD Primary Care Provider [phone] Encounter Details Date Type Department Care Team (Latest Contact Info) Description 02/18/2025 9:50 AM EST - 02/18/2025 11:59 PM [facility] Hospital Encounter [place] [facility] - [place] [address] [place] [address] Román White MD [address] [place] [address] Discharge Disposition: Home or Self [...] Date Scotty rded Speak language other than Maldivian at home Not on file 03/22/2023 Want [...] 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 Not [...] Description 05/25/2025 10:45 AM EDT Office Visit [place] [facility] - [place] [address] [place] [address] Jalen Enciso MD [address] [facility] [address] [place] [address] 06/23/2025 10:00 AM EDT Appointment [facility] [facility] - [facility] [address] [place] [address] Román White MD [address] [place] [address] documented as of this encounter Visit Diagnoses Not on filedocumented in this encounter Care Teams Staff Development Coordinator Relationship Specialty Start Date End Date Farooq Marcus MD [address] [place] [address] PCP - General Family Medicine 02/27/22 documented as of this encounter
--- OUTSIDE RECORDS SUMMARY | 2025-02-19 09:44 | XMS_ITS | Encounter Summary ---
Author Organization [employer] ([place], [place], [place], [place], [place]) Address [address] [place] [address] Care Team Providers Care Wool Hanker Name Role Phone Farooq Marcus MD Primary Care Provider Encounter Details Date Type Department Care Team (Latest Contact Info) Description 02/19/2025 9:44 AM EST - 02/19/2025 11:59 PM [facility] Hospital Encounter [place] [facility] - [place] [address] [place] [address] Román White MD [address] [place] [address] Discharge Disposition: Home or Self [...] Date Scotty rded Speak language other than Dutch at home Not on file 03/22/2023 Want [...] 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 file Not [...] Description 05/25/2025 10:45 AM EDT Office Visit [place] [facility] - [place] [address] [place] [address] Jalen Enciso MD [address] [facility] [address] [place] [address] 06/23/2025 10:00 AM EDT Appointment [place] [facility] - [facility] [address] [place] [address] Román White MD [address] [place] [address] documented as of this encounter Visit Diagnoses Not on filedocumented in this encounter Care Teams Wool Hanker Relationship Specialty Start Date End Date Farooq Marcus MD [address] [place] [address] PCP - General Family Medicine 02/27/22 documented as of this encounter
--- OUTSIDE RECORDS SUMMARY | 2025-02-20 09:50 | XMS_ITS | Encounter Summary ---
Author Organization [employer] ([place], [place], [place], [place], [place]) Address [address] [place] [address] Care Team Providers Care Travel Administrator Name Role Phone Farooq Marcus MD Primary Care Provider [phone] Encounter Details Date Type Department Care Team (Latest Contact Info) Description 02/20/2025 9:50 AM EST - 02/20/2025 11:59 PM [facility] Hospital Encounter [place] [facility] - [place] [address] [place] [address] Román White MD [address] [place] [address] Discharge Disposition: Home or Self [...] Date Scotty rded Speak language other than Omani at home Not on file 03/22/2023 Want [...] 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 Not on [...] Description 05/25/2025 10:45 AM EDT Office Visit [facility] [facility] - [place] [address] [place] [address] Jalen Enciso MD [address] [facility] [address] [place] [address] 06/23/2025 10:00 AM EDT Appointment [facility] - [facility] [address] [place] [address] Román White MD [address] [place] [address] documented as of this encounter Visit Diagnoses Not on filedocumented in this encounter Care Teams Travel Administrator Relationship Specialty Start Date End Date Farooq Marcus MD [address] [place] [address] PCP - General Family Medicine 02/27/22 documented as of this encounter
--- OUTSIDE RECORDS SUMMARY | 2025-02-23 09:45 | XMS_ITS | Encounter Summary ---
Author Organization [employer] ([place], [place], [place], [place], [place]) Address [address] [place] [address] Care Team Providers Care Irradiated Fuel Handler Name Role Phone Farooq Marcus MD Primary Care Provider [phone] Encounter Details Date Type Department Care Team (Latest Contact Info) Description 02/23/2025 9:45 AM EST - 02/23/2025 11:59 PM [facility] Hospital Encounter [place] [facility] - [place] [address] [place] [address] Román White MD [address] [place] [address] Discharge Disposition: Home or Self [...] Date Scotty rded Speak language other than Sao Tomean at home Not on file 03/22/2023 Want [...] 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 Not [...] Description 05/25/2025 10:45 AM EDT Office Visit [facility] - [place] [address] [place] [address] Jalen Enciso MD [address] [facility] [address] [place] [address] 06/23/2025 10:00 AM EDT Appointment [facility] - [facility] [address] [place] [address] Román White MD [address] [place] [address] documented as of this encounter Visit Diagnoses Not on filedocumented in this encounter Care Teams Irradiated Fuel Handler Relationship Specialty Start Date End Date Farooq Marcus MD [address] [place] [address] PCP - General Family Medicine 02/27/22 documented as of this encounter
[2025-02-27] VITALS (7 sets, daily range): BP systolic 116–137; BP diastolic 62–76; PULSE 61–76; RESP 11–22; TEMP 36.7; O2SAT 92–95; BMI 22.4
--- NOTE | 2025-02-27 15:02 | ECG_ITS ---
APPROVED REPORT Exam: Resting ECG HR:68 bpm ECG Measurements Heart Rate 68 AXES WI 195 P 73 QRSd 120 QRS -50 QT 422 T 86 QTc 439 Conclusion ELECTRONIC VENTRICULAR PACEMAKER ABNORMAL RHYTHM ECG UNCONFIRMED REPORT Ventricularly paced rhythm. No STEMI Electronically signed by : LAUREANO ROWELL, 02/27/2025 21:39:31
--- OUTSIDE RECORDS SUMMARY | 2025-02-27 15:20 | XMS_ITS | Encounter Summary ---
Author Organization [employer] ([place], [place], [place], [place], [place]) Address [address] [place] [address] Care Team Providers Care Fig Bar Machine Operator Name Role Phone Kaylene Brooke MD Primary Care Provider [phone] Farooq Marcus MD Primary Care Provider [phone] Encounter Details Date Type Department Care Team (Late st Contact Info) Description 09/22/2020 Transcribed Document [facility] Family Medicine [address] [place] [address] ProviderRayray MD [address] [place] [address] [id number] Social History Tobacco Use Types Packs/Day Years [...] due to chemo and side effects [PHYLLIS VIEIRA, SIL/Tre 09/23/2020 15:46 EDT] ) PHYLLIS VIEIRA OTR/Tre [...] Device : Belt, gait, Walker, rolling PHYLLIS VIEIRA OTR/L 09/23/2020 15:46 EDT Functional Mobility Mobility Grid Bed Roll Left : Supervision/set-up Bed Roll Right : Supervision/set-up Bed Scooting : Supervision/set-up Supine to Sit : Supervision/set-up Sit to Stand : Supervision/set-up Stand to Sit : Supervision/set-up Sit to Supine : Supervision/set-up PHYLLIS VIEIRA OTR/L 09/23/2020 15:46 EDT Neurological/Sensory Overall Sensory Response : Intact PHYLLIS VIEIRA OTR/L 09/23/2020 15:46 EDT Cognition Assessment, OT Orientation : Oriented x 4 Cognition Assessment, OT : Intact PHYLLIS VIEIRA, OTR/L 09/23/2020 15:46 EDT Visual/Perceptual/Vestibular, OT Vision Assessment, OT : Intact PHYLLIS VIEIRA, OTR/L 09/23/2020 15:46 EDT Indication Assessment, OT Occupational Therapy Indicated : Yes Problem List, OT : Impaired, endurance tolerance, Impaired functional mobility Potential Barriers, OT : None evident Rehabilitation Potential, OT : Good PHYLLIS VIEIRA OTR/L 09/23/2020 15:46 EDT Plan of Care, OT OT Tx Plan/Goals Established w Patient : Yes OT Frequency Rehab : Five days per week OT Duration Rehab : Fourteen days OT Treatments Planned : Activities of daily living, Safety education, Therapeutic activities PHYLLIS VIEIRA OTR/L 09/23/2020 15:46 EDT Usp Goals, OT Bathing LTG Grid Goal #1 [...] Description 05/25/2025 10:45 AM EDT Office Visit [facility] [place] [address] [place] [address] Jalen Enciso MD [address] [place] [address] 06/23/2025 10:00 AM EDT Appointment [facility] [place] [address] [place] [address] Román White MD [address] [place] [address] documented as of this encounter Visit Diagnoses Not on filedocumented in this encounter Care Teams Fig Bar Machine Operator Relationship Specialty Start Date End Date Kaylene Brooke MD [address] [place] [address] PCP - General General Internal Medicine 01/27/22 Farooq Marcus MD [address] [place] [address] PCP - General Family Medicine 02/27/22 documented as of this encounter
--- OUTSIDE RECORDS SUMMARY | 2025-02-27 15:20 | XMS_ITS | Encounter Summary ---
Author Organization [employer] ([place], [place], [place], [place], [place]) Address [address] [place] [address] Care Team Providers Care Equities Analyst Name Role Phone Kaylene Brooke MD Primary Care Provider [phone] Farooq Marcus MD Primary Care Provider [phone] Encounter Details Date Type Department Care Team (Late st Contact Info) Description 10/13/2020 Transcribed Document [facility] Family Medicine [address] [place] [address] ProviderRayray MD [address] [place] [address] Social History Tobacco Use Types Packs/Day Years Used Date Smoking Tobacco: Never Assessed Sex and Gender Information Value Date Recorded Sex Assigned at Not on file Legal Sex Male 5:14 PM CDT Gender Identity Not on file Sexual Orientation Not on file documented as of this encounter Miscellaneous Notes * Cerner Conversion Note - Rayray San MD - 10/13/2020 11:38 AM CDT [facility] [address] [place] [id number] RANCHO DEL ANGEL :1935 Visit Time:10/10/2020 Your Visit Summary Your Care Team Admitting Physician - KEISHA TUCKER MD Attending Physician - KEISHA TUCKER MD Primary Care Physician - MAZIN SHERIDAN MD-[facility] Referring Physician - SHAINA, NOT [...] Bring discharge instructions with you. [facility] [address] [address]- Follow Up with MAZIN SHERIDAN MD-FAM When 10/20/2020 10:30 AM EDT Comments PCP follow up. Appointment has been made. Bring discharge instructions with you. Where: [address] [place] [address]- Medications What How Much When Instructions Next Dose erythromycin ophthalmic (erythromycin 0.5% ophthalmic ointment) 1 Application(s) Eye Left Two Times A Day Duration: 5 Day(s) Pickup at [facility] this evening megestrol (Megace 40 mg/ mL oral suspension) 20 Milliliter(s) Oral Every Day Duration: 30 Day(s) Pickup at [facility] tomorrow metoclopramide (Reglan 10 mg oral tablet) 1 Tablet(s) Oral Before Meals and at Bedtime Duration: 14 Day(s) Pickup at [facility] at lunchtime sucralfate (Carafate 1 g/ 10 mL oral suspension) 10 Milliliter(s) Oral Before Meals Duration: 10 Day(s) Pickup at [facility] at lunchtime LORazepam (Ativan 1 mg oral tablet) 1 Tablet(s) Oral Three Times A Day as needed for as needed for anxiety as needed clopidogrel (Plavix 75 mg oral tablet) 1 Tablet(s) Oral Every Day tomorrow venlafaxine (Effexor XR 150 mg oral capsule, extended release) 1 Capsule(s) Oral Every Day NEW DOSE Pickup at [facility] tomorrow aspirin 81 Milligram(s) Oral Every Day tomorrow multivitamin 1 Tablet(s) Oral Every Day tomorrow ondansetron (Zofran 8 mg oral tablet) 1 Tablet(s) Oral Three Times A Day as needed for Nausea as needed pantoprazole (pantoprazole 40 mg oral delayed release tablet) 1 Tablet(s) Oral Every Day tomorrow Pharmacy Information [facility]: [id number] [address] [place] [phone] Take your medications faithfully. Do NOT skip [...] these instructions at home: Medicines ??? Take nugr-fxh-brgkvly and prescription medicines only as told by [...] provider. Document Revised: 07/16/2018 Document Reviewed: 07/16/2018 [employer] Patient Education ?? 2020 [employer] metoclopramide (oral/injection) (MET oh KLOE pra mide) Metozolv ODT, Reglan What is the most [...] may report side effects to FDA at 6-745-PEP-8860. What other drugs will affect metoclopramide? Using [...] may affect metoclopramide. This includes prescription and llyp-qdj-rjmbdnn medicines, vitamins, and herbal products. Not all [...] to ensure that the information provided by [employer]. ('[employer]') is accurate, up-to-date, and complete, but no guarantee is made to that effect. Drug information contained herein may be time sensitive. [employer] information has been compiled for use by healthcare practitioners and consumers in the [place] and therefore [employer] International does not warrant that uses outside of the [place] are appropriate, unless specifically indicated otherwise. [employer] drug information does not endorse drugs, diagnose patients or recommend therapy. [employer] drug information is an informational resource designed [...] effective or appropriate for any given patient. [employer] does not assume any responsibility for any aspect of healthcare administered with the aid of information [employer] provides. The information contained herein is not intended to cover all possible uses, directions, precautions, warnings, drug interactions, allergic reactions, or adverse effects. If you have questions about the drugs you are taking, check with your doctor, nurse or pharmacist. Copyright 5410-3284 [employer]. Version: 12.01. Revision Date: 05/17/2017. erythromycin ophthalmic [...] may report side effects to FDA at 3-026-VLE-0508. What other drugs will affect erythromycin ophthalmic? Medicine used in the eyes is not likely to be affected by other drugs you use. But many drugs can interact with each other. Tell each of your healthcare providers about all medicines you use, including prescription and ruxz-wrv-wchhglc medicines, vitamins, and herbal products. Where can I get more information? Your pharmacist can provide more information about erythromycin ophthalmic. Remember, keep this and all other medicines out of the reach of children, never share your medicines with others, and use this medication only for the indication prescribed. Every effort has been made to ensure that the information provided by [employer]. [employer]') is accurate, up-to-date, and complete, but no guarantee is made to that effect. Drug information contained herein may be time sensitive. [employer] information has been compiled for use by healthcare practitioners and consumers in the [place] and therefore [employer] does not warrant that uses outside of the [place] are appropriate, unless specifically indicated otherwise. [employer]'s drug information does not endorse drugs, diagnose patients or recommend therapy. [employer] drug information is an informational resource designed [...] effective or appropriate for any given patient. [facility] does not assume any responsibility for any aspect of healthcare administered with the aid of information [facility] provides. The information contained herein is not intended to cover all possible uses, directions, precautions, warnings, drug interactions, allergic reactions, or adverse effects. If you have questions about the drugs you are taking, check with your doctor, nurse or pharmacist. Copyright 8221-3563 Brittani [facility] Center[facility] Science. Version: 7.01. Revision Date: 11/07/2017. venlafaxine (CLARA [...] may report side effects to FDA at 1-525-XHD-8853. What other drugs will affect venlafaxine? Using venlafaxine with other drugs that make you drowsy can worsen this effect. Ask your doctor before using opioid medication, a sleeping pill, a muscle relaxer, or medicine for anxiety or seizures. Tell your doctor about all your current medicines. Many drugs can affect venlafaxine, especially: ?? any other antidepressant; ?? cimetidine; ?? tramadol; ?? [place]'s wort, tryptophan (sometimes called L-tryptophan); ?? diet pills, weight loss medicine (such as phentermine); ?? a blood thinner--warfarin, Coumadin, Jantoven; ?? medicine to treat mood disorders, thought disorders, or mental illness--buspirone, lithium, and many others; or ?? migraine headache medicine--sumatriptan, zolmitriptan, and others. This list is not complete and many other drugs may affect venlafaxine. This includes prescription and jyqz-zsa-evklswx medicines, vitamins, and herbal products. Not all [...] to ensure that the information provided by [employer] ('[employer]') is accurate, up-to-date, and complete, but no guarantee is made to that effect. Drug information contained herein may be time sensitive. [employer] information has been compiled for use by healthcare practitioners and consumers in the [place] and therefore [employer] International does not warrant that uses outside of the [place] are appropriate, unless specifically indicated otherwise. [employer] International's drug information does not endorse drugs, diagnose patients or recommend therapy. [employer] drug information is an informational resource designed [...] effective or appropriate for any given patient. [employer] does not assume any responsibility for any aspect of healthcare administered with the aid of information [employer] provides. The information contained herein is not intended to cover all possible uses, directions, precautions, warnings, drug interactions, allergic reactions, or adverse effects. If you have questions about the drugs you are taking, check with your doctor, nurse or pharmacist. Copyright 4111-6324 [employer]. Version: 16.02. Revision Date: 08/26/2020. sucralfate (oral) [...] may report side effects to FDA at 5-925-HUP-0731. What other drugs will affect sucralfate? Other drugs may affect sucralfate, including prescription and qpeq-xyz-telogyv medicines, vitamins, and herbal products. Tell your [...] to ensure that the information provided by [employer]. ('[employer]') is accurate, up-to-date, and complete, but no guarantee is made to that effect. Drug information contained herein may be time sensitive. [employer] information has been compiled for use by healthcare practitioners and consumers in the [place] and therefore [employer] International does not warrant that uses outside of the [place] are appropriate, unless specifically indicated otherwise. [employer] drug information does not endorse drugs, diagnose patients or recommend therapy. [employer] drug information is an informational resource designed [...] effective or appropriate for any given patient. [facility] does not assume any responsibility for any aspect of healthcare administered with the aid of information [employer] provides. The information contained herein is not intended to cover all possible uses, directions, precautions, warnings, drug interactions, allergic reactions, or adverse effects. If you have questions about the drugs you are taking, check with your doctor, nurse or pharmacist. Copyright 1817-1216 [employer]. Version: 10.. Revision Date: 05/13/2020. megestrol (mirian rivero) Dianne [...] may report side effects to FDA at 2-518-YXG-8097. What other drugs will affect megestrol? Tell your doctor about all your other medicines, especially: ?? a blood thinner--warfarin, Coumadin, Jantoven. This list is not complete. Other drugs may affect megestrol, including prescription and pvxc-qrm-hiixozq medicines, vitamins, and herbal products. Not all [...] to ensure that the information provided by [employer]. ('[employer]') is accurate, up-to-date, and complete, but no guarantee is made to that effect. Drug information contained herein may be time sensitive. [employer] information has been compiled for use by healthcare practitioners and consumers in the [place] and therefore I[employer] International does not warrant that uses outside of the [place] are appropriate, unless specifically indicated otherwise. [employer] International's drug information does not endorse drugs, diagnose patients or recommend therapy. [employer] drug information is an informational resource designed [...] effective or appropriate for any given patient. [employer] does not assume any responsibility for any aspect of healthcare administered with the aid of information [employer] provides. The information contained herein is not intended to cover all possible uses, directions, precautions, warnings, drug interactions, allergic reactions, or adverse effects. If you have questions about the drugs you are taking, check with your doctor, nurse or pharmacist. Copyright 8287-6301 [employer]. Version: 7.01. Revision Date: 11/08/2018. Emergency Awareness [...] Assistance with quitting is available by contacting 5-791-PKPATapprNOW. This is a free resource providing counseling, [...] range between ( 0.0 and 7.0 ) [place] #: 0.64 K/uL -- Normal range between ( 0.16 and 1.00 ) Eos #: 0.23 x10(3)/uL -- Normal range between ( 0.00 and 0.80 ) [place] %: 11.7 % -- Normal range between [...] Abnormal Macrocytosis: 1+ ANC #: 3 K/uL [place] Percent Man: 10 % -- Normal range [...] ) Urine Bilirubin Dipstick: Negative Urine Specific [place]: 1.014 -- Normal range between ( 1.005 [...] 1 Vw Portable Patient Name:RANCHO DEL ANGEL I have received and understand this information and was given the opportunity to ask questions. Patient/Car Ferry Master Name: Patient/Car Ferry Master Signature: Relationship to Patient: Clinician/Hospital Car Ferry Master Signature: Date: documented in this encounter Plan of Treatment Upcoming Encounters Date Type Department Care Team (Late st Contact Info) Description 05/25/2025 10:45 AM EDT Office Visit [facility] [place] [address] [place] [phone] Jalen Enciso MD [address] [place] [address] 06/23/2025 10:00 AM EDT Appointment [facility] [place] [address] [place] [address] Román White MD [address] [place] [address] documented as of this encounter Visit Diagnoses Not on filedocumented in this encounter Care Teams Equities Analyst Relationship Specialty Start Date End Date Kaylene Brooke MD [address] [place] [address] PCP - General General Internal Medicine 01/27/22 Farooq Marcus MD [address] [place] [address] PCP - General Family Medicine 02/27/22 documented as of this encounter
--- OUTSIDE RECORDS SUMMARY | 2025-02-27 15:20 | XMS_ITS | Encounter Summary ---
Author Organization [employer] ([place], [place], [place], [place], [place]) Address [address] [place] [address] Care Team Providers Care Head And Neck Surgeon Name Role Phone Kaylene Brooke MD Primary Care Provider [phone] Farooq Marcus MD Primary Care Provider [phone] Encounter Details Date Type Department Care Team (Late st Contact Info) Description 10/10/2020 Transcribed Document [facility] Family Medicine [address] [place] [address] ProviderRayray MD [address] [place] [address] Social History Tobacco Use Types Packs/Day Years Used Date Smoking Tobacco: Never Assessed Sex and Gender Information Value Date Recorded Sex Assigned at Not on file Legal Sex Male 5:14 PM CDT Gender Identity Not on file Sexual Orientation Not on file documented as of this encounter Miscellaneous Notes * Cerner Conversion Note - Rayray ProviderMD - 10/10/2020 10:14 AM CDT Consult Phone [...] Returning Call : BRONWYN HASSAN MD-ONC Hillary Chamberlain, RN - 10/10/2020 10:14 EDT documented in this encounter Plan of Treatment Upcoming Encounters Date Type Department Care Team (Late st Contact Info) Description 05/25/2025 10:45 AM EDT Office Visit [facility] [place] [address] [place] [address] Jalen Enciso MD [address] [place] [address] 06/23/2025 10:00 AM EDT Appointment [facility] [place] [address] [place] [address] Román White MD [address] [place] [address] documented as of this encounter Visit Diagnoses Not on filedocumented in this encounter Care Teams Head And Neck Surgeon Relationship Specialty Start Date End Date Kaylene Brooke MD [address] [place] [address] PCP - General General Internal Medicine 01/27/22 Farooq Marcus MD [address] [facility] [place] [address] PCP - General Family Medicine 02/27/22 documented as of this encounter
--- OUTSIDE RECORDS SUMMARY | 2025-02-27 15:20 | XMS_ITS | Encounter Summary ---
Author Organization [email or web address] ([place], [place], [place], [place], [place]) Address [address] [place] [address] Care Team Providers Care Electric Razor Assembler Name Role Phone Kaylene Brooke MD Primary Care Provider [phone] Farooq Marcus MD Primary Care Provider [phone] Encounter Details Date Type Department Care Team (Late st Contact Info) Description 10/09/2020 Transcribed Document [facility] [place] [address] [place] [address] ProviderRayray MD [address] [place] [address] [id number] Social History Tobacco Use Types Packs/Day Years [...] EDT Height Source Stated Height Entry Format [place] Height/Length, BULGARIAN (ft) 6 ft Height/Length BULGARIAN 0 Inch CLINICALHEIGHT 182.88 cm Rule Body Weight 76.59 kg Weight Source, ED Critical estimated dosing weight Weight Entry Format [place] Weight [place] lb 150 lb CLINICALWEIGHT 68.18 kg Body [...] Triage: ED C-SSRS: ED Clinical Reconciliation: ED lawn specialist: Magnesium Level: Normal Saline Bolus: 1,000 mL, [...] Color Yellow Urine Appearance Clear Urine Specific [place] 1.014 Urine pH Dipstick *8.0 Urine Leukocyte [...] % LOW ALYC # 0 K/uL NA [place] Percent Man 15 % HI Eos Percent [...] Regarding prescription, Patient indicated understanding of instructions. Electronically signed by Nidia [facility] Conversion Curb Worker Cerner at 06/29/2022 2:19 PM CDT documented in this encounter Plan of Treatment Upcoming Encounters Date Type Department Care Team (Late st Contact Info) Description 05/25/2025 10:45 AM EDT Office Visit [facility] - [place] [address] [place] [address] Jalen Enciso MD [address] [place] [address] 06/23/2025 10:00 AM EDT Appointment [facility] [place] [address] [place] [address] Román White MD [address] [place] [address] documented as of this encounter Visit Diagnoses Not on filedocumented in this encounter Care Teams Electric Razor Assembler Relationship Specialty Start Date End Date Kaylene Brooke MD [address] [place] [address] PCP - General General Internal Medicine 01/27/22 Farooq Marcus MD [address] [place] [address] PCP - General Family Medicine 02/27/22 documented as of this encounter
--- OUTSIDE RECORDS SUMMARY | 2025-02-27 15:20 | XMS_ITS | Encounter Summary ---
Author Organization [employer] ([place], [place], [place], [place], [place]) Address [address] [place] [address] Care Team Providers Care Media Production Operator Name Role Phone Kaylene Brooke MD Primary Care Provider [phone] Farooq Marcus MD Primary Care Provider [phone] Encounter Details Date Type Department Care Team (Late st Contact Info) Description 09/22/2020 Transcribed Document [facility] Family Medicine [address] [place] [address] ProviderRayray MD [address] [place] [address] 634171 Social History Tobacco Use Types Packs/Day Years Used Date Smoking Tobacco: Never Assessed Sex and Gender Information Value Date Recorded Sex Assigned at Not on file Legal Sex Male 5:14 PM CDT Gender Identity Not on file Sexual Orientation Not on file documented as of this encounter Miscellaneous Notes * Cerner Conversion Note - Historical ProviderMD - 09/22/2020 11:11 PM CDT Meds [...] EDT Electronically signed by Malina Jacob Conversion Enterprise Integration Architect Cerner at 06/29/2022 2:41 PM CDT documented in this encounter Plan of Treatment Upcoming Encounters Date Type Department Care Team (Late st Contact Info) Description 05/25/2025 10:45 AM EDT Office Visit [facility] - [place] [place] [address] Jalen Enciso MD [address] [place] [address] 06/23/2025 10:00 AM EDT Appointment [facility] - [place] [address] [place] [address] Román White MD [address] [place] [address] documented as of this encounter Visit Diagnoses Not on filedocumented in this encounter Care Teams Media Production Operator Relationship Specialty Start Date End Date Kaylene Brooke MD [address] [place] [address] PCP - General General Internal Medicine 01/27/22 Farooq Marcus MD [address] [facility] [place] [address] PCP - General Family Medicine 02/27/22 documented as of this encounter
--- OUTSIDE RECORDS SUMMARY | 2025-02-27 15:20 | XMS_ITS | Encounter Summary ---
Author Organization [employer] ([place], [place], [place], [place], [place]) Address [address] [place] [address] Care Team Providers Care Wildlife Manager Name Role Phone Kaylene Brooke MD Primary Care Provider [phone] Farooq Marcus MD Primary Care Provider [phone] Encounter Details Date Type Department Care Team (Late st Contact Info) Description 10/13/2020 Transcribed Document [facility] [place] [address] [place] [address] ProviderRayray MD [address] [place] [address] Social History Tobacco Use Types Packs/Day Years Used Date Smoking Tobacco: Never Assessed Sex and Gender Information Value Date Recorded Sex Assigned at Not on file Legal Sex Male 5:14 PM CDT Gender Identity Not on file Sexual Orientation Not on file documented as of this encounter Miscellaneous Notes * Cerner Conversion Note - Rayray San MD - 10/13/2020 11:59 AM CDT [facility] [address] [id number] RANCHO DEL ANGEL :1935 Visit Time:10/10/2020 Your Visit Summary Your Care Team Admitting Physician - KEISHA TUCKER MD Attending Physician - KEISHA TUCKER MD Primary Care Physician - MAZIN SHERIDAN MD-[facility] Referring Physician - SHAINA, NOT [...] Bring discharge instructions with you. Where: [address] [facility] [address] [address]- Follow Up with MAZIN SHERIDAN MD-[facility] When 10/20/2020 10:30 AM EDT Comments PCP follow up. Appointment has been made. Bring discharge instructions with you. Where: [address] [place] [address]- Medications What How Much When Instructions Next Dose erythromycin ophthalmic (erythromycin 0.5% ophthalmic ointment) 1 Application(s) Eye Left Two Times A Day Duration: 5 Day(s) Pickup at [facility] megestrol (Megace 40 mg/ mL oral suspension) 20 Milliliter(s) Oral Every Day Duration: 30 Day(s) Pickup at [facility] metoclopramide (Reglan 10 mg oral tablet) 1 Tablet(s) Oral Before Meals and at Bedtime Duration: 14 Day(s) Pickup at [facility] sucralfate (Carafate 1 g/ 10 mL oral suspension) 10 Milliliter(s) Oral Before Meals Duration: 10 Day(s) Pickup at [facility] LORazepam (Ativan 1 mg oral tablet) 1 Tablet(s) Oral Three Times A Day as needed for as needed for anxiety clopidogrel (Plavix 75 mg oral tablet) 1 Tablet(s) Oral Every Day venlafaxine (Effexor XR 150 mg oral capsule, extended release) 1 Capsule(s) Oral Every Day NEW DOSE Pickup at [facility] aspirin 81 Milligram(s) Oral Every Day multivitamin 1 Tablet(s) Oral Every Day ondansetron (Zofran 8 mg oral tablet) 1 Tablet(s) Oral Three Times A Day as needed for Nausea pantoprazole (pantoprazole 40 mg oral delayed release tablet) 1 Tablet(s) Oral Every Day Pharmacy Information [facility]: [address] [facility] [address] [place] [phone] Take your medications faithfully. Do NOT skip [...] these instructions at home: Medicines ??? Take piey-wgn-qgvrylg and prescription medicines only as told by [...] provider. Document Revised: 07/16/2018 Document Reviewed: 07/16/2018 [employer] Patient Education ?? 2020 [employer] metoclopramide (oral/injection) (MET oh TRAN patrick mide) Metozolv ODT, Reglan What is the [...] may report side effects to FDA at 3-341-NCL-9410. What other drugs will affect metoclopramide? Using [...] may affect metoclopramide. This includes prescription and yrat-jjg-rpszofi medicines, vitamins, and herbal products. Not all [...] to ensure that the information provided by [employer]. ('[employer]') is accurate, up-to-date, and complete, but no guarantee is made to that effect. Drug information contained herein may be time sensitive. [employer] information has been compiled for use by healthcare practitioners and consumers in the [place] and therefore [employer] does not warrant that uses outside of the [place] are appropriate, unless specifically indicated otherwise. [employer] drug information does not endorse drugs, diagnose patients or recommend therapy. [employer] drug information is an informational resource designed [...] effective or appropriate for any given patient. [employer] does not assume any responsibility for any aspect of healthcare administered with the aid of information [employer] provides. The information contained herein is not intended to cover all possible uses, directions, precautions, warnings, drug interactions, allergic reactions, or adverse effects. If you have questions about the drugs you are taking, check with your doctor, nurse or pharmacist. Copyright 8515-3392 [employer]. Version: 12.. Revision Date: 05/17/2017. erythromycin ophthalmic [...] may report side effects to FDA at 8-546-DFA-4285. What other drugs will affect erythromycin ophthalmic? Medicine used in the eyes is not likely to be affected by other drugs you use. But many drugs can interact with each other. Tell each of your healthcare providers about all medicines you use, including prescription and vryk-jaa-bdwvmsf medicines, vitamins, and herbal products. Where can I get more information? Your pharmacist can provide more information about erythromycin ophthalmic. Remember, keep this and all other medicines out of the reach of children, never share your medicines with others, and use this medication only for the indication prescribed. Every effort has been made to ensure that the information provided by [employer]. [employer]') is accurate, up-to-date, and complete, but no guarantee is made to that effect. Drug information contained herein may be time sensitive. [employer] information has been compiled for use by healthcare practitioners and consumers in the [place] and therefore [employer] does not warrant that uses outside of the [place] are appropriate, unless specifically indicated otherwise. [employer]'s drug information does not endorse drugs, diagnose patients or recommend therapy. [employer] drug information is an informational resource designed [...] effective or appropriate for any given patient. [facility] does not assume any responsibility for any aspect of healthcare administered with the aid of information [facility] provides. The information contained herein is not intended to cover all possible uses, directions, precautions, warnings, drug interactions, allergic reactions, or adverse effects. If you have questions about the drugs you are taking, check with your doctor, nurse or pharmacist. Copyright 7401-[address] [facility], [employer]. Version: 7.01. Revision Date: 11/07/2017. venlafaxine (CLARA [...] may report side effects to FDA at 9-637-IUK-9184. What other drugs will affect venlafaxine? Using [...] may affect venlafaxine. This includes prescription and uclm-hbf-utzhmfw medicines, vitamins, and herbal products. Not all [...] to ensure that the information provided by [employer]') is accurate, up-to-date, and complete, but no guarantee is made to that effect. Drug information contained herein may be time sensitive. [employer] information has been compiled for use by healthcare practitioners and consumers in the [place] and therefore [employer] does not warrant that uses outside of the [place] are appropriate, unless specifically indicated otherwise. [employer]'s drug information does not endorse drugs, diagnose patients or recommend therapy. [employer] drug information is an informational resource designed [...] effective or appropriate for any given patient. [employer] does not assume any responsibility for any aspect of healthcare administered with the aid of information [employer] provides. The information contained herein is not intended to cover all possible uses, directions, precautions, warnings, drug interactions, allergic reactions, or adverse effects. If you have questions about the drugs you are taking, check with your doctor, nurse or pharmacist. Copyright 2097-2360 [employer]. Version: 16.02. Revision Date: 08/26/2020. sucralfate (oral) [...] may report side effects to FDA at 7-607-EWF-0420. What other drugs will affect sucralfate? Other drugs may affect sucralfate, including prescription and rqrx-lsd-pjfmmrz medicines, vitamins, and herbal products. Tell your [...] to ensure that the information provided by [employer]') is accurate, up-to-date, and complete, but no guarantee is made to that effect. Drug information contained herein may be time sensitive. [employer] information has been compiled for use by healthcare practitioners and consumers in the [place] and therefore [employer] does not warrant that uses outside of the [place] are appropriate, unless specifically indicated otherwise. [employer] drug information does not endorse drugs, diagnose patients or recommend therapy. [employer] drug information is an informational resource designed [...] effective or appropriate for any given patient. [employer] does not assume any responsibility for any aspect of healthcare administered with the aid of information [employer] provides. The information contained herein is not intended to cover all possible uses, directions, precautions, warnings, drug interactions, allergic reactions, or adverse effects. If you have questions about the drugs you are taking, check with your doctor, nurse or pharmacist. Copyright 2299-0755 [employer]. Version: 12.10. Revision Date: 05/13/2020. megestrol (mirian [...] may report side effects to FDA at 0-949-WAJ-6153. What other drugs will affect megestrol? Tell your doctor about all your other medicines, especially: ?? a blood thinner--warfarin, Coumadin, Jantoven. This list is not complete. Other drugs may affect megestrol, including prescription and vgjm-hij-zavnceu medicines, vitamins, and herbal products. Not all [...] to ensure that the information provided by [employer]. [employer]') is accurate, up-to-date, and complete, but no guarantee is made to that effect. Drug information contained herein may be time sensitive. [employer] information has been compiled for use by healthcare practitioners and consumers in the [place] and therefore [employer] does not warrant that uses outside of the [place] are appropriate, unless specifically indicated otherwise. [employer]'s drug information does not endorse drugs, diagnose patients or recommend therapy. [employer] drug information is an informational resource designed [...] effective or appropriate for any given patient. [employer] does not assume any responsibility for any aspect of healthcare administered with the aid of information [employer] provides. The information contained herein is not intended to cover all possible uses, directions, precautions, warnings, drug interactions, allergic reactions, or adverse effects. If you have questions about the drugs you are taking, check with your doctor, nurse or pharmacist. Copyright 9474-3264 [employer]. Version: 7.01. Revision Date: 11/08/2018. Emergency Awareness [...] Assistance with quitting is available by contacting 5-676-IBZLTendrNOW. This is a free resource providing counseling, [...] range between ( 0.0 and 7.0 ) [place] #: 0.64 K/uL -- Normal range between ( 0.16 and 1.00 ) Eos #: 0.23 x10(3)/uL -- Normal range between ( 0.00 and 0.80 ) [place] %: 11.7 % -- Normal range between [...] Abnormal Macrocytosis: 1+ ANC #: 3 K/uL [place] Percent Man: 10 % -- Normal range [...] ) Urine Bilirubin Dipstick: Negative Urine Specific Parker: 1.014 -- Normal range between ( 1.005 [...] was given the opportunity to ask questions. Patient/Mold Presser Name: Patient/Mold Presser Signature: Relationship to Patient: Clinician/Hospital Mold Presser Signature: Date: documented in this encounter Plan of Treatment Upcoming Encounters Date Type Department Care Team (Late st Contact Info) Description 05/25/2025 10:45 AM EDT Office Visit [facility] [address] [place] [phone] Jalen Enciso MD [address] [place] [address] 06/23/2025 10:00 AM EDT Appointment [facility] [place] [address] [place] [address] Román White MD [address] [place] [address] documented as of this encounter Visit Diagnoses Not on filedocumented in this encounter Care Teams Wildlife Manager Relationship Specialty Start Date End Date Kaylene Brooke MD [address] [place] [address] PCP - General General Internal Medicine 01/27/22 Farooq Marcus MD [address] [place] [address] PCP - General Family Medicine 02/27/22 documented as of this encounter
--- OUTSIDE RECORDS SUMMARY | 2025-02-27 15:20 | XMS_ITS | Encounter Summary ---
Author Organization [employer] ([place], [place], [place], [place], [place]) Address [address] [place] [address] Care Team Providers Care Automatic Beam Warper Tender Name Role Phone Kaylene Brooke MD Primary Care Provider Farooq Marcus MD Primary Care Provider [phone] Encounter Details Date Type Department Care Team (Late st Contact Info) Description 10/13/2020 Transcribed Document [facility] [place] Family Medicine [address] [place] [address] Rayray San MD [address] [place] [address] [id number] Social History Tobacco Use Types Packs/Day Years [...] these instructions at home: Medicines ??? Take hvfy-bjk-mhflzcl and prescription medicines only as told by [...] provider. Document Revised: 07/16/2018 Document Reviewed: 07/16/2018 [employer] Patient Education ? 2019 [employer]. documented in this encounter Plan of Treatment Upcoming Encounters Date Type Department Care Team (Late st Contact Info) Description 05/25/2025 10:45 AM EDT Office Visit [facility] [address] [facility] [address] [place] [address] Jalen Enciso MD [facility] [address] [place] [address] 06/23/2025 10:00 AM EDT Appointment [facility] [place] [address] [place] [address] Román White MD [address] [place] [address] documented as of this encounter Visit Diagnoses Not on filedocumented in this encounter Care Teams Automatic Beam Warper Tender Relationship Specialty Start Date End Date Kaylene Brooke MD [address] [place] [address] PCP - General General Internal Medicine 01/27/22 Farooq Marcus MD [address] [place] [address] PCP - General Family Medicine 02/27/22 documented as of this encounter
--- OUTSIDE RECORDS SUMMARY | 2025-02-27 15:20 | XMS_ITS | Encounter Summary ---
Author Organization [employer] [facility] [place] ([place], [place], [place], [place], [place]) Address [address] [place] [address] Care Team Providers Care Pill Maker Name Role Phone Kaylene Brooke MD Primary Care Provider Farooq Marcus MD Primary Care Provider [phone] Encounter Details Date Type Department Care Team (Late st Contact Info) Description 09/22/2020 Transcribed Document [facility] [place] [address] [place] [address] ProviderRayray MD [address] [place] [address] Social History Tobacco Use Types Packs/Day Years Used Date Smoking Tobacco: Never Assessed Sex and Gender Information Value Date Recorded Sex Assigned at Not on file Legal Sex Male 5:14 PM CDT Gender Identity Not on file Sexual Orientation Not on file documented as of this encounter Miscellaneous Notes * Cerner Conversion Note - Historical ProviderMD - 09/22/2020 4:06 PM CDT Patient: RANCHO DEL ANGEL Age: 84 years Sex: Male : 1935 Associated Diagnoses: None Author: CHANTELLE LUNDBERG DO Basic Information Source of history: Self, Medical record. History limitation: None. Chief Complaint abd pain, n/v. PCP: tommie mccartney in [place] oncologist: dr seo woodworking machine offbearer: dr topete and dr COSTA in [place] Subjective Mr. Del Angel is an 84 year old male with history of esophageal cancer on chemotherapy with dr Seo, last chemo on 09/17, coronary artery disease last with PCI in [facility] about 2 months ago as well as pacemaker for heart rhythm , possibly afib who presented to [facility] on 09/22 for evaluation of abd [...] stent placement about 2 months ago in [facility] he was started on brilinta and aspirin and didnt like how it made me feel thus he stopped taking the brilinta. He had syncopal episode after taking metoprolol and protonix and thus stopped taking those too about 2 weeks ago. He was also hospitalized at [facility] then. He reports significant weight [...] list: Medical Leg neuralgia / SNOMED CT 99429560 / Confirmed Hyperlipidemia / SNOMED CT 31377038 / Confirmed Chest pain with high risk for cardiac etiology / SNOMED CT 54353549 / Confirmed At risk for sleep apnea / IMO [id number] / Confirmed Anxiety disorder / SNOMED CT 161859169 / Confirmed, Active Problems (7) Anxiety disorder [...] (SEP 22 09:45) Mon HR 82 (SEP 22:) 80 (SEP 22:45) 98 (SEP 22:) Periph HR 96 (SEP 22 09:45) 96 (SEP 22 09:45) 96 (SEP 22 09:45) Resp Rate H 21 (SEP 22:) 15 (SEP 22:45) H 27 (SEP 22:) SBP 94 (SEP 22:) 94 (SEP 22:) 140 (SEP 22:) DBP L 55 (SEP 22:) L 53 (SEP 22:45) 60 (SEP 22:) MAP 67 (SEP 22) 67 (SEP 22:15) 86 (PATRICIA 14 13:30) SpO2 94 (SEP [...] Results Review Radiology Results (Last 48 hours) [id number] -- 09/22/2020 09:28 CR Chest 1 Vw [...] ago - two weeks ago, was at [facility] for this stay. depression - start on antidepressant last week with dr seo - pt and unsure what medication this was. irregular heart rhythm, possibly afib - with pacemaker - follows with dr topete and dr COSTA in [place] medical record reviewed, discussed with ER provider. [...] Description 05/25/2025 10:45 AM EDT Office Visit [facility] - [place] [place] [address] Jalen Seo MD [address] [place] [address] [place] [phone] 06/23/2025 10:00 AM EDT Appointment [facility] [place] [address] [place] [address] Román White MD [address] [place] [address] documented as of this encounter Visit Diagnoses Not on filedocumented in this encounter Care Teams Pill Maker Relationship Specialty Start Date End Date Kaylene Brooke MD [address] [place] [address] PCP - General General Internal Medicine 01/27/22 Farooq Marcus MD [address] [facility] [place] [address] PCP - General Family Medicine 02/27/22 documented as of this encounter
--- OUTSIDE RECORDS SUMMARY | 2025-02-27 15:20 | XMS_ITS | Encounter Summary ---
Author Organization [employer] ([place], [place], [place], [place], [place]) Address [address] [place] [address] Care Team Providers Care Switch Coupler Name Role Phone Kaylene Brooke MD Primary Care Provider [phone] Farooq Marcus MD Primary Care Provider [phone] Encounter Details Date Type Department Care Team (Late st Contact Info) Description 09/28/2020 Transcribed Document [facility] [place] [address] [place] [address] ProviderRayray MD [address] [place] [address] Social History Tobacco Use Types Packs/Day Years Used Date Smoking Tobacco: Never Assessed Sex and Gender Information Value Date Recorded Sex Assigned at Not on file Legal Sex Male 5:14 PM CDT Gender Identity Not on file Sexual Orientation Not on file documented as of this encounter Miscellaneous Notes * Cerner Conversion Note - Rayray ProviderMD - 09/28/2020 2:00 AM CDT Dividend Deposit Entry Clerk Details Entered On: 09/28/2020 3:18 EDT Performed [...] Description 05/25/2025 10:45 AM EDT Office Visit [facility] - [address] [place] [address] Jalen Enciso MD [address] [place] [address] 06/23/2025 10:00 AM EDT Appointment [facility] [place] [address] [place] [address] Román White MD [address] [place] [address] documented as of this encounter Visit Diagnoses Not on filedocumented in this encounter Care Teams Switch Coupler Relationship Specialty Start Date End Date Kaylene Brooke MD [address] [place] [address] PCP - General General Internal Medicine 01/27/22 Farooq Marcus MD [address] [place] [address] PCP - General Family Medicine 02/27/22 documented as of this encounter
--- OUTSIDE RECORDS SUMMARY | 2025-02-27 15:20 | XMS_ITS | Referral Summary ---
Author Organization [employer] ([place], [place], [place], [place], [place]) Address [address] [place] [address] Care Team Providers Care Business Law Professor Name Role Phone Farooq Marcus MD Primary Care Provider [phone] Encounters Date Type Department Care Team Description 02/23/2025 Social Work [facility] [address] [place] [address] Nico Hutchinson MSW 02/23/2025 Travel 02/23/2025 9:45 AM EST - 02/23/2025 11:59 PM EST Hospital Encounter [facility] [address] [place] [address] Román White MD Discharge Disposition: Home or Self Care 02/20/2025 Travel 02/20/2025 9:50 AM EST - 02/20/2025 11:59 PM EST Hospital Encounter [facility] [address] [place] [address] Román White MD Discharge Disposition: Home or Self Care 02/19/2025 9:44 AM EST - 02/19/2025 11:59 PM EST Hospital Encounter [facility] [address] [place] [address] Román White MD Discharge Disposition: Home or Self Care 02/18/2025 Travel 02/18/2025 9:50 AM EST - 02/18/2025 11:59 PM EST Hospital Encounter [facility] [address] [place] [address] Román White MD Discharge Disposition: Home or Self Care 02/17/2025 9:42 AM EST - 02/17/2025 11:59 PM EST Hospital Encounter [facility] [address] [place] [address] Román White MD Gastroesophageal cancer (HCC) (Primary Dx) Discharge Disposition: Home or Self Care 02/17/2025 9:42 AM EST - 02/17/2025 11:59 PM EST Hospital Encounter [facility] [address] [place] [address] Román White MD Discharge Disposition: Home or Self Care 02/16/2025 Travel 02/16/2025 10:06 AM EST - 02/16/2025 11:59 PM EST Hospital Encounter [facility] [address] [place] [address] Román White MD Discharge Disposition: Home or Self Care 02/13/2025 9:45 AM EST - 02/13/2025 11:59 PM EST Hospital Encounter [facility] [address] [place] [address] Román White MD Discharge Disposition: Home or Self Care 02/12/2025 Travel 02/12/2025 9:38 AM EST - 02/12/2025 11:59 PM EST Hospital Encounter [facility] [address] [place] [address] Román White MD Discharge Disposition: Home or Self Care 02/11/2025 9:25 AM EST - 02/11/2025 11:59 PM EST Hospital Encounter [facility] [address] [place] [address] Román White MD Discharge Disposition: Home or Self Care 02/10/2025 Travel 02/10/2025 9:49 AM EST - 02/10/2025 11:59 PM EST Hospital Encounter [facility] [address] [place] [address] Román White MD Gastroesophageal cancer (HCC) (Primary Dx) Discharge Disposition: Home or Self Care 02/10/2025 9:49 AM EST - 02/10/2025 11:59 PM EST Hospital Encounter [facility] [address] [place] [address] Román Whiet MD Discharge Disposition: Home or Self Care 01/30/2025 9:15 AM EST - 01/30/2025 11:59 PM EST Hospital Encounter [facility] [address] [place] [address] Román White MD Discharge Disposition: Home or Self Care 01/29/2025 Travel 01/29/2025 8:22 AM EST - 01/29/2025 11:59 PM EST Hospital Encounter [facility] [address] [place] [address] Román White MD Gastroesophageal cancer (HCC) (Primary Dx) Discharge Disposition: Home or Self Care 01/26/2025 8:56 AM EST - 01/26/2025 11:59 PM EST Hospital Encounter [facility] CT - [address] [place] [address] Devin Juarez MD Malignant neoplasm of thoracic esophagus (HCC) Discharge Disposition: Home or Self Care 12/17/2024 Telephone [facility] [address] [place] [address] Jalen Enciso MD Appointment 12/09/2024 Telephone [facility] [address] [place] [address] Jalen Enciso MD medical records request from Last 3 Months Allergies Active Allergy [...] mg total) by mouth daily. 03/07/2023 Active aspirin 81 MG EC tablet Take 1 tablet (81 mg total) by mouth daily. 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 Not on file Not [...] 6.4 oz) 02/17/2025 10:45 AM EST Height 182.9 cm (6') 11/24/2024 1:39 PM EDT Body Mass Index 22.7 11/24/2024 1:39 PM EDT Plan of Treatment Upcoming Encounters Date Type Department Care Team (Late st Contact Info) Description 05/25/2025 10:45 AM EDT Office Visit [facility] [address] [place] [address] Jalen Enciso MD [address] [place] [address] 06/23/2025 10:00 AM EDT Appointment [facility] - [facility] [place] [address] Román White MD [address] [place] [address] Procedures Procedure Name Priority Date/Time Associated Diagnosis Comments P.E.T./CT SKULL BASE TO MID-THIGH Routine 01/26/2025 10:39 AM EST Malignant neoplasm of thoracic esophagus (HCC) from Last 3 Months Results * PET/CT Skull Base-Mid Thigh (Whole [...] Juarez MD IM CT ORDERABLES Final Result from Last 3 Months Insurance MEDICARE PART A B Care Teams Business Law Professor Relationship Specialty Start Date End Date Farooq Marcus MD [address], [place] [address] PCP - General Family Medicine 02/27/22
--- OUTSIDE RECORDS SUMMARY | 2025-02-27 15:20 | XMS_ITS | Encounter Summary ---
Author Organization [employer] ([place], [place], [place], [place], [place]) Address [address] [place] [address] Care Team Providers Care Steam Locomotive Firer/Fireman Name Role Phone Kaylene Brooke MD Primary Care Provider [phone] Farooq Marcus MD Primary Care Provider [phone] Encounter Details Date Type Department Care Team (Late st Contact Info) Description 10/09/2020 Transcribed Document [facility] [place] [address] [place] [address] ProviderRayray MD [address] [place] [address] [id number] Social History Tobacco Use Types Packs/Day Years Used Date Smoking Tobacco: Never Assessed Sex and Gender Information Value Date Recorded Sex Assigned at Not on file Legal Sex Male 5:14 PM CDT Gender Identity Not on file Sexual Orientation Not on file documented as of this encounter Miscellaneous Notes * Cerner Conversion Note - Rayray San MD - 10/09/2020 5:00 PM CDT Patient: DOYLE [...] Will notify Primary Care Provider MAZIN SHERIDAN [facility] of change in care plan. Will look at further interventions as needed. Code Status: At this time patient wishes to be Code Status Start: 10/09/20 16:33:00 EDT, Full Code, Continuous Order Time Spent with Patient: [ 17] minutes Electronically signed by Nidia [facility] Conversion Reroller Hand Cerner at 06/29/2022 2:19 PM CDT documented in this encounter Plan of Treatment Upcoming Encounters Date Type Department Care Team (Late st Contact Info) Description 05/25/2025 10:45 AM EDT Office Visit [facility] [address] [place] [address] Jalen Enciso MD [address] [facility] [address] [place] [address] 06/23/2025 10:00 AM EDT Appointment [facility] [address] [place] [address] Rmoán White MD [address] [place] [address] documented as of this encounter Visit Diagnoses Not on filedocumented in this encounter Care Teams Steam Locomotive Firer/Fireman Relationship Specialty Start Date End Date Kaylene Brooke MD [address] [place] [address] PCP - General General Internal Medicine 01/27/22 Farooq Marcus MD [address], [place] [address] PCP - General Family Medicine 02/27/22 documented as of this encounter
--- OUTSIDE RECORDS SUMMARY | 2025-02-27 15:20 | XMS_ITS | Encounter Summary ---
Author Organization [employer] ([place], [place], [place], [place], [place]) Address [address] [place] [address] Care Team Providers Care Mobile Paramedical Examiner Name Role Phone Kaylene Brooke MD Primary Care Provider [phone] Farooq Marcus MD Primary Care Provider [phone] Encounter Details Date Type Department Care Team (Late st Contact Info) Description 10/13/2020 Transcribed Document [facility] [place] [address] [place] [address] ProviderRayray MD [address] [place] [address] Social History Tobacco Use Types Packs/Day Years Used Date Smoking Tobacco: Never Assessed Sex and Gender Information Value Date Recorded Sex Assigned at Not on file Legal Sex Male 5:14 PM CDT Gender Identity Not on file Sexual Orientation Not on file documented as of this encounter Miscellaneous Notes * Cerner Conversion Note - Historical ProviderMD - 10/13/2020 11:54 AM CDT Nursing Discharge Summary Entered On: 10/13/2020 11:55 EDT Performed On: 10/13/2020 11:54 EDT by Randi Johnson Rn-Traveler Discharge Documentation Discharge Date/Time : 10/13/2020 12:00 EDT Patient Disposition, General : Discharge Discharge To : Home with ambulatory/outpatient follow-up Education Comment : POC, safety, med mgmt, pain control Randi Johnson Rn-Traveler - 10/13/2020 11:54 EDT Electronically signed by Boo Jacob Conversion Manufacturing Production Technician Cerner at 06/29/2022 2:35 PM CDT documented in this encounter Plan of Treatment Upcoming Encounters Date Type Department Care Team (Late st Contact Info) Description 05/25/2025 10:45 AM EDT Office Visit [facility] [address] [place] [address] Jalen Enciso MD [address] [place] [address] 06/23/2025 10:00 AM EDT Appointment [facility] [address] [place] [address] Román White MD [address] [place] [address] documented as of this encounter Visit Diagnoses Not on filedocumented in this encounter Care Teams Mobile Paramedical Examiner Relationship Specialty Start Date End Date Kaylene Brooke MD [address] [place] [address] PCP - General General Internal Medicine 01/27/22 Farooq Marcus MD [address] [place] [address] PCP - General Family Medicine 02/27/22 documented as of this encounter
--- OUTSIDE RECORDS SUMMARY | 2025-02-27 15:20 | XMS_ITS | Encounter Summary ---
Author Organization [employer] ([place], [place], [place], [place], [place]) Address [address] [place] [address] Care Team Providers Care Business Operations Specialist Name Role Phone Kaylene Brooke MD Primary Care Provider [phone] Farooq Marcus MD Primary Care Provider [phone] Encounter Details Date Type Department Care Team (Late st Contact Info) Description 09/29/2020 Transcribed Document [facility] [place] [address] [place] [address] ProviderRayray MD [address] [place] [address] Social History Tobacco Use Types Packs/Day Years [...] - 09/29/2020 8:33 EDT Electronically signed by [facility] Conversion Silk Trimmer Cerner at 06/29/2022 2:27 PM CDT documented in this encounter Plan of Treatment Upcoming Encounters Date Type Department Care Team (Late st Contact Info) Description 05/25/2025 10:45 AM EDT Office Visit [facility] [address] [place] [address] Jalen Enciso MD [address] [place] [address] 06/23/2025 10:00 AM EDT Appointment [facility] [address] [place] [address] Román White MD [address] [place] [address] documented as of this encounter Visit Diagnoses Not on filedocumented in this encounter Care Teams Business Operations Specialist Relationship Specialty Start Date End Date Kaylene Brooke MD [address] [place] [address] PCP - General General Internal Medicine 01/27/22 Farooq Marcus MD [address] [place] [address] PCP - General Family Medicine 02/27/22 documented as of this encounter
--- OUTSIDE RECORDS SUMMARY | 2025-02-27 15:20 | XMS_ITS | Encounter Summary ---
Author Organization [employer] ([place], [place], [place], [place], [place]) Address [address] [place] [address] Care Team Providers Care Vocational Trainer Name Role Phone Kaylene rBooke MD Primary Care Provider [phone] Farooq Marcus MD Primary Care Provider Encounter Details Date Type Department Care Team (Late st Contact Info) Description 09/28/2020 Transcribed Document [facility] [place] [address] [place] [address] ProviderRayray MD [address] [place] [address] Social History Tobacco Use Types Packs/Day Years Used Date Smoking Tobacco: Never Assessed Sex and Gender Information Value Date Recorded Sex Assigned at Not on file Legal Sex Male 5:14 PM CDT Gender Identity Not on file Sexual Orientation Not on file documented as of this encounter Miscellaneous Notes * Cerner Conversion Note - Rayray San MD - 09/28/2020 5:10 PM CDT [facility] [place] [id number] RANCHO DEL ANGEL :1935 Visit Time:09/22/2020 Your Visit Summary Your Care Team Admitting Physician - CRISTINA LUNDBERG DO Attending Physician - CRISTINA LUNDBERG, Primary Care Physician - MAZIN SHERIDAN MD-[facility] Referring Physician - Jeannine, NOT LISTED Your [...] weeks Comments oncology follow up [facility] [address] [email or web address] [address] [place] [address]- Follow Up with MAZIN SHERIDAN MD-FAM When Within 5 to 7 days Comments PCP follow up Where: [address] [place] [address]- Medications What How Much When Instructions Next Dose clopidogrel (clopidogrel 75 mg oral tablet) 1 Tablet(s) Oral Every Day Duration: 30 Day(s) Pickup at [facility] famotidine (Pepcid 20 mg oral tablet) 1 Tablet(s) Oral Every Day Duration: 30 Day(s) Refills: 1 Pickup at [facility] aspirin 81 Milligram(s) Oral Every Day LORazepam 1 Milligram(s) Oral Three Times A Day multivitamin 1 Tablet(s) Oral Every Day Pharmacy Information [facility]: [address] [place], [place] [id number] [phone] Take your medications faithfully. Do NOT skip [...] caused your condition. General instructions ??? Take zfab-uri-ufwxeqn and prescription medicines only as told by your health care provider. ??? Do not drive or use heavy machinery while taking prescription pain medicine. ??? Ask your health care provider if the medicine prescribed to you can cause constipation. You may need to take steps to prevent or treat constipation, such as: ? Take an vigc-ile-zgymbgv or prescription medicine for constipation. ? Eat [...] provider. Document Revised: 12/16/2018 Document Reviewed: 09/02/2018 [employer] Patient Education ?? 2020 [employer] Emergency Awareness and Preventative Care STROKE [...] Assistance with quitting is available by contacting 4-923-WCDE-NOW. This is a free resource providing counseling, [...] and 14.9 ) ANC #: 4 K/uL [place] Percent Man: 14 % -- Normal range [...] 0 and 1 ) 09/26/2020 6:05 AM [place] Percent Man: 1 % -- Normal range between ( 0 and 1 ) 09/24/2020 5:26 AM Eos %: 1.4 % -- Normal range between ( 0.0 and 7.0 ) [place] #: 0.32 K/uL -- Normal range between ( 0.16 and 1.00 ) Eos #: 0.09 x10(3)/uL -- Normal range between ( 0.00 and 0.80 ) [place] %: 4.9 % -- Normal range between [...] ) Urine Bilirubin Dipstick: Small Urine Specific [place]: 1.016 -- Normal range between ( 1.005 [...] EC Echo Complete: EC Echo Complete Patient Name:RANCHO DEL ANGEL I have received and understand this information and was given the opportunity to ask questions. Patient/Labor Utilization Superintendent Name: Patient/Labor Utilization Superintendent Signature: Relationship to Patient: Clinician/Hospital Labor Utilization Superintendent Signature: Date: documented in this encounter Plan of Treatment Upcoming Encounters Date Type Department Care Team (Late st Contact Info) Description 05/25/2025 10:45 AM EDT Office Visit [facility] - [facility] [address] [facility] [address] [place] [address] Jalen Enciso MD [address] [place] [address] 06/23/2025 10:00 AM EDT Appointment [facility] [address] [place] [address] Román White MD [address] [place] [address] documented as of this encounter Visit Diagnoses Not on filedocumented in this encounter Care Teams Vocational Trainer Relationship Specialty Start Date End Date Kaylene Brooke MD [address] [place] [address] PCP - General General Internal Medicine 01/27/22 Farooq Marcus MD [address] [place] [address] PCP - General Family Medicine 02/27/22 documented as of this encounter
--- OUTSIDE RECORDS SUMMARY | 2025-02-27 15:20 | XMS_ITS | Encounter Summary ---
Author Organization [employer] ([place], [place], [place], [place], [place]) Address [address] [place] [address] Care Team Providers Care Parts Salesperson Name Role Phone Kaylene Brooke MD Primary Care Provider [phone] Farooq Marcus MD Primary Care Provider Encounter Details Date Type Department Care Team (Late st Contact Info) Description 09/28/2020 Transcribed Document [facility] [place] [address] [place] [address] ProviderRayray MD [address] [place], [place] [id number] Social History Tobacco Use Types Packs/Day Years [...] chemo earlier this month. Pt presented to [facility] 09/22 for abd pain with N/V. GI consulted, LFTs/pancreatitis likely due to medication/dehydration, LFTs improving. Visited pt, not in room at time of visit. Pt stated he had a good appetite prior to hospitalization, ate 2 meals/day + snacks. No issues chewing/swallowing reported. Pt stated UBW 185#, last known in May 2020 before chemo started, stated CBW 165# (but admit vp=832#). RD to reorder wt to confirm. NFPE [...] Esophageal cancer hx of chemo, CAD, HLD, AR, cholecystectomy Meds: aspirin, MVI, immodium, senna, PPI, [...] Visit [facility] - [place] [address] [place] [address] Jalen Enciso MD [address] [place] [address] 06/23/2025 10:00 AM EDT Appointment [facility] [place] [address] [place] [address] Román White MD [address] [place] [address] documented as of this encounter Visit Diagnoses Not on filedocumented in this encounter Care Teams Parts Salesperson Relationship Specialty Start Date End Date Kaylene Brooke MD [address] [place] [address] PCP - General General Internal Medicine 01/27/22 Farooq Marcus MD [address] [place] [place] [address] PCP - General Family Medicine 02/27/22 documented as of this encounter
--- OUTSIDE RECORDS SUMMARY | 2025-02-27 15:20 | XMS_ITS | Encounter Summary ---
Author Organization [employer] ([place], [place], [place], [place], [place]) Address [address] [place] [address] Care Team Providers Care Box Strapper Name Role Phone Kaylene Brooke MD Primary Care Provider [phone] Farooq Marcus MD Primary Care Provider [phone] Encounter Details Date Type Department Care Team (Late st Contact Info) Description 09/28/2020 Transcribed Document [facility] [place] [address] [place] [address] ProviderRayray MD [address] [place] [address] Social History Tobacco Use Types Packs/Day Years [...] On: 09/28/2020 17:09 EDT by CASEY Romero, inspector and sorter Documentation Patient Disposition, General : Discharge, Elopement Discharge To : Home with ambulatory/outpatient follow-up Mode Of Departure, General Discharge : Private vehicle IV Discontinued : Yes Elopement Launch : Yes CASEY Romero, RN - 09/28/2020 17:09 EDT Electronically signed by Nidia [facility] Conversion Supplemental Nurse Cerner at 06/29/2022 2:40 PM CDT documented in this encounter Plan of Treatment Upcoming Encounters Date Type Department Care Team (Late st Contact Info) Description 05/25/2025 10:45 AM EDT Office Visit [facility] - [address] [place] [address] Jalen Enciso MD [address] [place] [address] 06/23/2025 10:00 AM EDT Appointment [facility] - [address] [place] [address] Román White MD [address] [place] [address] documented as of this encounter Visit Diagnoses Not on filedocumented in this encounter Care Teams Box Strapper Relationship Specialty Start Date End Date Kaylene Brooke MD [address] [place] [address] PCP - General General Internal Medicine 01/27/22 Farooq Marcus MD [address] [facility] [place] [address] PCP - General Family Medicine 02/27/22 documented as of this encounter
--- OUTSIDE RECORDS SUMMARY | 2025-02-27 15:20 | XMS_ITS | Encounter Summary ---
Author Organization [employer] ([place], [place], [place], [place], [place]) Address [address] [place] [address] Care Team Providers Care Land Leases And Rentals Manager Name Role Phone Kaylene Brooke MD Primary Care Provider [phone] Farooq Marcus MD Primary Care Provider [phone] Encounter Details Date Type Department Care Team (Late st Contact Info) Description 10/13/2020 Transcribed Document [facility] [place] [address] [place] [address] ProviderRayray MD [address] [place] [id number] Social History Tobacco Use Types Packs/Day Years [...] Office Visit [facility] - [facility] [facility] [address] [place] [address] Jalen Enciso MD [address] [place] [address] 06/23/2025 10:00 AM EDT Appointment [facility] - [address] [place] [address] Román White MD [address] [place] [address] documented as of this encounter Visit Diagnoses Not on filedocumented in this encounter Care Teams Land Leases And Rentals Manager Relationship Specialty Start Date End Date MendyKaylene dunn MD [address] [place] [address] PCP - General General Internal Medicine 01/27/22 Farooq Marcus MD [address] [facility] [place] [address] PCP - General Family Medicine 02/27/22 documented as of this encounter
--- OUTSIDE RECORDS SUMMARY | 2025-02-27 15:20 | XMS_ITS | Encounter Summary ---
Author Organization [employer] ([place], [place], [place], [place], [place]) Address [address] [place] [address] Care Team Providers Care Ramp Lead Name Role Phone Kaylene Brooke MD Primary Care Provider [phone] Farooq Marcus MD Primary Care Provider [phone] Encounter Details Date Type Department Care Team (Late st Contact Info) Description 09/22/2020 Transcribed Document [facility] [place] Family Medicine [address] [place] [address] ProviderRayray MD [address] [place] [address] [phone] Social History Tobacco Use Types Packs/Day Years [...] Lower Extremity RLE Active ROM : WFL LLE Active ROM : WFL ACOSTA REEVES, [...] EDT Goal Status : Intial Goal ACOSTA REEVES PT - 09/23/2020 11:52 EDT Partner Manager Goals Ambulation LTG Grid Goal #1 Device [...] Plan for Treatment : con't PTx. ACOSTA REEVES, PT - 09/23/2020 11:52 EDT Pain Assessment [...] Home, with home health (Comment: S1 [ACOSTA REEVES, PT - 09/23/2020 11:52 EDT] ) Recommend [...] Office Visit [facility] [address] [place] [address] Jalen Enciso MD [address] [place] [address] 06/23/2025 10:00 AM EDT Appointment [facility] [address] [place] [address] Román White MD [address] [place] [address] documented as of this encounter Visit Diagnoses Not on filedocumented in this encounter Care Teams Ramp Lead Relationship Specialty Start Date End Date Kaylene Brooke MD [address] [place] [address] PCP - General General Internal Medicine 01/27/22 Farooq Marcus MD [address] [place] [address] PCP - General Family Medicine 02/27/22 documented as of this encounter
--- OUTSIDE RECORDS SUMMARY | 2025-02-27 15:20 | XMS_ITS | Encounter Summary ---
Author Organization [employer] ([place], [place], [place], [place], [place]) Address [address] [place] [address] Care Team Providers Care Field Map Technician Name Role Phone Kaylene Brooke MD Primary Care Provider [phone] Farooq Marcus MD Primary Care Provider [phone] Encounter Details Date Type Department Care Team (Late st Contact Info) Description 10/10/[address] [facility] [place] Family Medicine [address] [place] [address] ProviderRayray MD [address] [place] [address] Social History Tobacco Use Types Packs/Day Years [...] 10/10/2020 8:52 EDT Physician Returning Call : BARBOSA, AMBERLY A, Hillary Clifton, RN - 10/10/2020 10:13 EDT Electronically signed by Nidia, [facility] Conversion Assistant Manager Pt Cerner at 06/29/2022 2:21 PM CDT documented in this encounter Plan of Treatment Upcoming Encounters Date Type Department Care Team (Late st Contact Info) Description 05/25/2025 10:45 AM EDT Office Visit [facility] [place] [address] [place] [address] Jalen Enciso MD [address] [place] [address] 06/23/2025 10:00 AM EDT Appointment [facility] [place] [address] [place] [address] Román White MD [address] [place] [address] documented as of this encounter Visit Diagnoses Not on filedocumented in this encounter Care Teams Field Map Technician Relationship Specialty Start Date End Date Kaylene Brooke MD [address] [place] [address] PCP - General General Internal Medicine 01/27/22 Farooq Marcus MD [address] [facility] [place] [address] PCP - General Family Medicine 02/27/22 documented as of this encounter
--- OUTSIDE RECORDS SUMMARY | 2025-02-27 15:20 | XMS_ITS | Encounter Summary ---
Author Organization [employer] ([place], [place], [place], [place], [place]) Address [address] [place] [address] Care Team Providers Care Assembly Repairer Name Role Phone Kaylene Brooke MD Primary Care Provider [phone] Farooq Marcus MD Primary Care Provider [phone] Encounter Details Date Type Department Care Team (Late st Contact Info) Description 10/09/2020 Transcribed Document [facility] [place] [address] [place] [address] ProviderRayray MD [address] [place] [address] [id number] Social History Tobacco Use Types Packs/Day Years Used Date Smoking Tobacco: Never Assessed Sex and Gender Information Value Date Recorded Sex Assigned at Not on file Legal Sex Male 5:14 PM CDT Gender Identity Not on file Sexual Orientation Not on file documented as of this encounter Miscellaneous Notes * Cerner Conversion Note - Historical ProviderMD - 10/09/2020 12:19 PM CDT ED [...] : 3 - Urgent Tracking Group : [facility] ED CHRISTIANO SANTIAGO RN-Resource - 10/09/2020 [...] 12:29:06 EDT) Problems(Active) Anxiety disorder (SNOMED CT :854691557 ) Name of Problem: Anxiety disorder ; Recorder: ERIKA AKERS APRN-INT; Confirmation: Confirmed ; Classification: Medical ; Code: [id number] ; Contributor System: Lagoon ; Last Updated: 04/22/2014 0:56 EST ; Life Cycle Date: 04/22/2014 ; Life Cycle Status: Active ; Responsible Provider: ERIKA AKERS APRN-INT; Vocabulary: SNOMED CT At risk for sleep apnea (IMO :44437844 ) Name of Problem: At risk for sleep apnea ; Recorder: SYSTEM, SYSTEM; Confirmation: Confirmed ; Classification: Medical ; Code: 71299717 ; Last Updated: 09/08/2020 8:44 EDT ; Life Cycle Date: 09/08/2020 ; Life Cycle Status: Active ; Vocabulary: IMO Chest pain with high risk for cardiac etiology (SNOMED CT :44447779 ) Name of Problem: Chest pain with high risk for cardiac etiology ; Recorder: ERIKA AKERS APRN-INT; Confirmation: Confirmed ; Classification: Medical ; Code: 52508904 ; Contributor System: [employer] GroupChart ; Last Updated: 04/22/2014 0:56 EST ; Life Cycle Status: Active ; Responsible Provider: ERIKA AKERS APRN-INT; Vocabulary: SNOMED CT Esophagus cancer (SNOMED CT :805548814 ) Name of Problem: Esophagus cancer ; Recorder: JUVE GILBERT Rn-Clinical Coordinator I; Confirmation: Confirmed ; Classification: Patient Stated ; Code: 366367521 ; Contributor System: PowerChart ; Last Updated: 09/08/2020 8:36 EDT ; Life Cycle Date: 09/08/2020 ; Life Cycle Status: Active ; Vocabulary: SNOMED CT Hyperlipidemia (SNOMED CT :54439388 ) Name of Problem: Hyperlipidemia ; Recorder: ERIKA BOYER MD-EMR; Confirmation: Confirmed ; Classification: Medical ; Code: 04651241 ; Contributor System: PowerChart ; Last Updated: 04/21/2014 20:55 EST ; Life Cycle Date: 04/21/2014 ; Life Cycle Status: Active ; Responsible Provider: ERIKA BOYER MD-EMR; Vocabulary: SNOMED CT Leg neuralgia (SNOMED CT :08142651 ) Name of Problem: Leg neuralgia ; Recorder: ERIKA AKERS APRN-INT; Confirmation: Confirmed ; Classification: Medical ; Code: 54530723 ; Contributor System: PowerChart ; Last Updated: 04/22/2014 0:56 EST ; Life Cycle Date: 04/22/2014 ; Life Cycle Status: Active ; Responsible Provider: ERIKA AKERS APRN-INT; Vocabulary: SNOMED CT Myocardial infarction (SNOMED CT :98035403 ) Name of Problem: Myocardial infarction ; Recorder: JUVE GILBERT Rn-Clinical Coordinator I; Confirmation: Confirmed ; Classification: Patient Stated ; Code: 71793828 ; Contributor System: Lagoon ; Last Updated: 09/08/2020 8:36 EDT ; Life Cycle Date: 09/08/2020 ; Life Cycle Status: Active ; Vocabulary: SNOMED CT Diagnoses(Active) Vomiting Date: 10/09/2020 ; Diagnosis Type: Reason For Visit ; Confirmation: Complaint of ; Clinical Dx: Vomiting ; Classification: Medical ; Clinical Service: Emergency medicine ; Code: PNED ; Probability: 0 ; Diagnosis Code: [id number] ED Height and Weight Height Source : Stated Height Entry Format : [place] Height, Feet : 6 ft(Converted to: 183 cm, 72 Inch) Height, Inches : 0 Inch(Converted to: 0 ft 0 Inch, 0.00 cm) Clinical Height : 182.88 cm Weight Source, ED : Critical estimated dosing weight Weight Entry Format : [place] Weight, Pounds : 150 lb Clinical Dosing Weight : 68.18 kg Body Surface Area (BSA) : 1.89 m2 Body Mass Index : 20.4 kg/m2 [place] Body Weight (IBW) : 76.59 kg CHRISTIANO SANTIAGO RN-Resource - 10/09/2020 12:24 EDT Electronically signed by Nidia [facility] Conversion Manager Environmental Health Cerner at 06/29/2022 2:18 PM CDT documented in this encounter Plan of Treatment Upcoming Encounters Date Type Department Care Team (Late st Contact Info) Description 05/25/2025 10:45 AM EDT Office Visit [facility] [place] [address] [place] [address] Jalen Enciso MD [facility] [place] [address] 06/23/2025 10:00 AM EDT Appointment [facility] [place] [address] [place] [address] Román White MD [address] [place] [address] documented as of this encounter Visit Diagnoses Not on filedocumented in this encounter Care Teams Assembly Repairer Relationship Specialty Start Date End Date Kaylene Brooke MD [address] [place] [address] PCP - General General Internal Medicine 01/27/22 Farooq Marcus MD [address] [place] [address] PCP - General Family Medicine 02/27/22 documented as of this encounter
--- OUTSIDE RECORDS SUMMARY | 2025-02-27 15:20 | XMS_ITS | Encounter Summary ---
Author Organization [employer] ([place], [place], [place], [place], [place]) Address [address] [place] [address] Care Team Providers Care Sales Planning Manager Name Role Phone Kaylene Brooke MD Primary Care Provider Farooq Marcus MD Primary Care Provider [phone] Encounter Details Date Type Department Care Team (Late st Contact Info) Description 09/22/2020 Transcribed Document [facility] [place] Family Medicine [address] [place] [address] ProviderRayray MD [address] [place] [address]441 Social History Tobacco Use Types Packs/Day Years Used Date Smoking Tobacco: Never Assessed Sex and Gender Information Value Date Recorded Sex Assigned at Not on file Legal Sex Male 5:14 PM CDT Gender Identity Not on file Sexual Orientation Not on file documented as of this encounter Miscellaneous Notes * Cerner Conversion Note - Historical ProviderMD - 09/22/2020 9:28 AM CDT [place] Violence Assessment Entered On: 09/22/2020 11:11 EDT Performed On: 09/22/2020 11:06 EDT by CELIA ALBERT RN Broset Violence Assessment Bro[place] Violence Checklist of Symptoms : None Bro[place] Violence Symptoms Subtotal : 0 [place] Violence Symptoms Indicator : Low risk (0) CELIA ALBERT RN - 09/22/2020 11:06 EDT Electronically signed by Nidia [facility] Conversion Validation Technician Cerner at 06/29/2022 2:39 PM CDT documented in this encounter Plan of Treatment Upcoming Encounters Date Type Department Care Team (Late st Contact Info) Description 05/25/2025 10:45 AM EDT Office Visit [facility] - [address] [place] [address] Jalen Enciso MD [address] [place] [address] 06/23/2025 10:00 AM EDT Appointment [facility] [address] [place] [address] Román White MD [address] [place] [address] documented as of this encounter Visit Diagnoses Not on filedocumented in this encounter Care Teams Sales Planning Manager Relationship Specialty Start Date End Date Kaylene Brooke MD [address] [place] [address] PCP - General General Internal Medicine 01/27/22 Farooq Marcus MD [address] [place] [address] PCP - General Family Medicine 02/27/22 documented as of this encounter
--- OUTSIDE RECORDS SUMMARY | 2025-02-27 15:20 | XMS_ITS | Encounter Summary ---
Author Organization [employer] ([place], [place], [place], [place], [place]) Address [address] [place] [address] Care Team Providers Care Paste Up Copy Camera Operator Name Role Phone Kaylene Brooke MD Primary Care Provider [phone] Farooq Marcus MD Primary Care Provider [phone] Encounter Details Date Type Department Care Team (Late st Contact Info) Description 10/09/2020 Transcribed Document [facility] [place] [address] [place] [address] ProviderRayray MD [address] [place] [address] 046281 Social History Tobacco Use Types Packs/Day Years [...] : Low risk (0) [place] Interventions : [place] precautions for safety used PRISCILLA JUAN RN - 10/09/2020 13:56 EDT Electronically signed by Nidia [facility] Conversion Frame Carver Spindle Cerner at 06/29/2022 2:18 PM CDT documented in this encounter Plan of Treatment Upcoming Encounters Date Type Department Care Team (Late st Contact Info) Description 05/25/2025 10:45 AM EDT Office Visit [facility] [place] [address] [place] [address] Jalen Enciso MD [address] [place] [address] [place] [address] 06/23/2025 10:00 AM EDT Appointment [facility] [place] [address] [place] [address] Román White MD [address] [place] [address] documented as of this encounter Visit Diagnoses Not on filedocumented in this encounter Care Teams Paste Up Copy Camera Operator Relationship Specialty Start Date End Date Kaylene Brooke MD [address] [place] [address] PCP - General General Internal Medicine 01/27/22 Farooq Marcus MD [address] [facility] [place] [address] PCP - General Family Medicine 02/27/22 documented as of this encounter
--- OUTSIDE RECORDS SUMMARY | 2025-02-27 15:20 | XMS_ITS | Encounter Summary ---
Author Organization [employer] ([place], [place], [place], [place], [place]) Address [address] [place] [address] Care Team Providers Care Maid Housekeeper Name Role Phone Kaylene Brooke MD Primary Care Provider [phone] Farooq Marcus MD Primary Care Provider [phone] Encounter Details Date Type Department Care Team (Late st Contact Info) Description 10/09/2020 Transcribed Document [facility] [place] [address] [place] [address] ProviderRayray MD [address] [place] [address] [phone] Social History Tobacco Use Types Packs/Day Years [...] other Legal Guardian : No Support Person/Patient Director Data Processing : Yes Support Person/Pt Rep Name : Brandee Del Angel - Contact Password : Cat Support Person/Pt Rep Contact Information : [phone] Want Family/Rep/Phys Notified of Admit : No [...] From : Patient, Spouse Primary Language : Andorran Communication Barrier : None Stuntman Needed : No Zaida Cortez RN - [...] Level : 46 or > High Risk [place] Fall Interventions : Adequate lighting, Assistive devices [...] (Last Updated: 04/22/2014 15:34:53 EST by DARRELL REDE, Rn) Substance Abuse: Drug Use Hx: No. (Last Updated: 09/08/2020 08:39:23 EDT by JUVE GILBERT Rn-Clinical Coordinator I) Height and Weight, Clinical Dosing Height Source : Stated Height Entry Format : [place] Height, Feet : 6 ft(Converted to: 183 cm, 72 Inch) Height, Inches : 0 Inch(Converted to: 0 ft 0 Inch, 0.00 cm) Clinical Height : 182.88 cm Weight Source : Bed scale Weight Entry Format : [place] Clinical Dosing Weight : 68.18 kg Weight, Pounds : 150 lb Body Surface Area (BSA) : 1.89 m2 Body Mass Index : 20.4 kg/m2 [place] Body Weight : 77 kg Zaida Cortez [...] Zaida Cortez RN - 10/09/2020 18:47 EDT [place] Suicide Severity Rating Scale (C-SSRS) CSSRS Past [...] Description 05/25/2025 10:45 AM EDT Office Visit [facility] [address] [place] [address] Jalen Enciso MD [address] [place] [address] [place] [address] 06/23/2025 10:00 AM EDT Appointment [facility] [place] [address] [place] [address] Román White MD [address] [place] [address] documented as of this encounter Visit Diagnoses Not on filedocumented in this encounter Care Teams Maid Housekeeper Relationship Specialty Start Date End Date Kaylene Brooke MD [address] [place] [address] PCP - General General Internal Medicine 01/27/22 Farooq Marcus MD [address] [place] [address] PCP - General Family Medicine 02/27/22 documented as of this encounter
--- OUTSIDE RECORDS SUMMARY | 2025-02-27 15:20 | XMS_ITS | Encounter Summary ---
Author Organization [employer] ([place], [place], [place], [place], [place]) Address [address] [place] [address] Care Team Providers Care Wire Frame Maker Name Role Phone Kaylene Brooke MD Primary Care Provider Farooq Marcus MD Primary Care Provider [phone] Encounter Details Date Type Department Care Team (Late st Contact Info) Description 10/13/2020 Transcribed Document [facility] [place] Family Medicine [address] [place] [address] ProviderRayray MD [address] [place] [address] Social History Tobacco Use Types Packs/Day Years [...] MATIAS KERN PTA - 10/13/2020 13:29 EDT Ambulation STG Grid Goal #1 Device : Walker, front wheel Distance : 150' Assist : Supervision or set-up Date to Meet : 10/18/2020 EDT Goal Status : Goal met Date Met : 10/12/2020 EDT MATIAS KERN PTA - 10/13/2020 13:29 EDT Adjuster And Inspector Goals Ambulation LTG Grid Goal #1 Device : None Distance : 200' Assist : Supervision or set-up Date to Meet : 10/25/2020 EDT Goal Status : Not met MATIAS KERN PTA - 10/13/2020 13:29 EDT documented in this encounter Plan of Treatment Upcoming Encounters Date Type Department Care Team (Late st Contact Info) Description 05/25/2025 10:45 AM EDT Office Visit [facility] [place] [address] [place] [address] Jalen Enciso MD [address] [place] [address] [place] [address] 06/23/2025 10:00 AM EDT Appointment [facility] [place] [address] [place] [address] Román White MD [address] [place] [address] documented as of this encounter Visit Diagnoses Not on filedocumented in this encounter Care Teams Wire Frame Maker Relationship Specialty Start Date End Date Kaylene Brooke MD [address] [place] [address] PCP - General General Internal Medicine 01/27/22 Farooq Marcus MD [address] [place] [address] PCP - General Family Medicine 02/27/22 documented as of this encounter
--- OUTSIDE RECORDS SUMMARY | 2025-02-27 15:20 | XMS_ITS | Encounter Summary ---
Author Organization [employer] ([place], [place], [place], [place], [place]) Address [address] [place] [address] Care Team Providers Care Prn Physical Therapist Name Role Phone Kaylene Brooke MD Primary Care Provider [phone] Farooq Marcus MD Primary Care Provider [phone] Encounter Details Date Type Department Care Team (Late st Contact Info) Description 10/10/2020 Transcribed Document [facility] [place] [address] [place] [address] ProviderRayray MD [address] [place] [address] 285211 Social History Tobacco Use Types Packs/Day Years Used Date Smoking Tobacco: Never Assessed Sex and Gender Information Value Date Recorded Sex Assigned at Not on file Legal Sex Male 5:14 PM CDT Gender Identity Not on file Sexual Orientation Not on file documented as of this encounter Miscellaneous Notes * Cerner Conversion Note - Historical MD Jaswinder - 10/10/2020 10:00 AM CDT Patient: RANCHO DEL ANGEL Age: 84 Years Sex: Male : 1935 Chief Complaint nausea, vomiting for several weeks. radiation and chemo completed 3 weeks ago for esophageal cancer. Reason for Consultation Palliative needs and C History of Present Illness 84 yo wm presented to ER at [facility] after having worsening N/V. Admitted to [...] Living will on file from 09/23/20 naming [facility] [place] [facility] Sister Georgina Recio Code status: Full Residency before this admission: Lived at home with spouse. ESAS: 0-10 scale: Pain: Dyspnea:+ with exertion Nausea:+ improving Insomnia:+ Constipation:+ Anxiety:+ Agitation: Depression:+ Fatigue:+ Well-being: Appetite:diminished but improving Drowsy: PRN Medication: Doses/24hours: Pain: Anxiety/Agitation: Ativan 1mg TID scheduled Dyspnea: Nausea: Zofran 8mg x1, Phenergan none CLOTH COVERED HELMET PULLER: Basal Bolus Review of Systems Constitutional: no [...] Has had anxiety issues for many years. 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 Scheduled Ativan 1mg TID not helping much per pt report. Consider longer acting med or different antidepressant if persists. Discussed with Mile Willams PA-C. [facility]: Spoke with patient and Brandee [...] not want to remain on life support long-term, not interested in trach or PEG. He is given generalized education about options moving forward and encouraged to discuss what QOL would look like for him with his . We discussed his current symptoms as described above. Pt and have many questions and are heavily basing decisions on POC depending on upcoming follow ups with oncology. 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 Has 3 living biological children. 1 dtr and 1 step dtr. Family History Father-emphysema Mother-stroke in age 80's Immunizations Unknown Diagnostic Results Radiology Results (Last 48 hours) [id number] -- 10/09/2020 15:48 CR Chest 1 Vw [...] ALYC # 0 K/uL 10/09/2020 13:15 EDT [place] Percent Man 10 % (High) 10/10/2020 05:50 EDT [place] Percent Man 15 % (High) 10/09/2020 13:15 [...] Appearance CLEAR2 10/09/2020 14:45 EDT Urine Specific [place] 1.014 10/09/2020 14:45 EDT Urine pH Dipstick [...] DATE: SOURCE: SITE: Reports Electronically signed by [facility] Conversion Nip Wrapper Cerner at 06/29/2022 2:20 PM CDT documented in this encounter Plan of Treatment Upcoming Encounters Date Type Department Care Team (Late st Contact Info) Description 05/25/2025 10:45 AM EDT Office Visit [facility] - [address] [place] [address] Jalen Enciso MD [address] [place] [address] 06/23/2025 10:00 AM EDT Appointment [facility] [place] [address] [place] [address] Román White MD [address] [place] [address] documented as of this encounter Visit Diagnoses Not on filedocumented in this encounter Care Teams Prn Physical Therapist Relationship Specialty Start Date End Date Kaylene Brooke MD [address] [place] [address] PCP - General General Internal Medicine 01/27/22 Farooq Marcus MD [address] [place] [address] PCP - General Family Medicine 02/27/22 documented as of this encounter
--- OUTSIDE RECORDS SUMMARY | 2025-02-27 15:20 | XMS_ITS | Encounter Summary ---
Author Organization [employer] ([place], [place], [place], [place], [place]) Address [address] [place] [address] Care Team Providers Care Tool Grinder Set Up Operator Gear Name Role Phone Kaylene Brooke MD Primary Care Provider [phone] Farooq Marcus MD Primary Care Provider [phone] Encounter Details Date Type Department Care Team (Late st Contact Info) Description 10/10/2020 Transcribed Document [facility] [place] [address] [place] [address] ProviderRayray MD [address] [place] [address] 030081 Social History Tobacco Use Types Packs/Day Years Used Date Smoking Tobacco: Never Assessed Sex and Gender Information Value Date Recorded Sex Assigned at Not on file Legal Sex Male 5:14 PM CDT Gender Identity Not on file Sexual Orientation Not on file documented as of this encounter Miscellaneous Notes * Cerner Conversion Note - Rayray San MD - 10/10/2020 2:59 PM CDT Patient: RANCHO DEL ANGEL Age: [...] list: Medical Anxiety disorder / SNOMED CT 045389479 / Confirmed At risk for sleep apnea / IMO 15326200 / Confirmed Chest pain with high risk for cardiac etiology / SNOMED CT 66818316 / Confirmed Hyperlipidemia / SNOMED CT 34469972 / Confirmed 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 Dr Enciso to return tomorrow and garbage pick up man coverage. Mr Robertson voiced understanding and agreement with the above. documented in this encounter Plan of Treatment Upcoming Encounters Date Type Department Care Team (Late st Contact Info) Description 05/25/2025 10:45 AM EDT Office Visit [facility] - [place] [address] [place] [address] Jalen Enciso MD [address] [facility] [place] [address] 06/23/2025 10:00 AM EDT Appointment [facility] - [place] [address] [place] [address] Román White MD [address] [place] [address] documented as of this encounter Visit Diagnoses Not on filedocumented in this encounter Care Teams Tool Grinder Set Up Operator Gear Relationship Specialty Start Date End Date Kaylene Brooke MD [address] [place] [address] PCP - General General Internal Medicine 01/27/22 Farooq Marcus MD [address], [place] [address] PCP - General Family Medicine 02/27/22 documented as of this encounter
--- OUTSIDE RECORDS SUMMARY | 2025-02-27 15:20 | XMS_ITS | Encounter Summary ---
Author Organization [employer] ([place], [place], [place], [place], [place]) Address [address] [place] [address] Care Team Providers Care Automotive Window Tinter Name Role Phone Kaylene Brooke MD Primary Care Provider [phone] Farooq Marcus MD Primary Care Provider [phone] Encounter Details Date Type Department Care Team (Late st Contact Info) Description 10/01/2020 Transcribed Document [facility] [place] [address] [place] [address] ProviderRayray MD [address] [place] [address] 347441 Social History Tobacco Use Types Packs/Day Years [...] 10/01/2020 14:30 EDT by KEISHA RIVERA Mkt Supervisor Beater Room-Utilization Mgt Final Discharge Planning Discharge Arrangements : Patient Post-Acute Information Patient Name: DOLYE DEL ANGEL Gender: Male : 39 Age: 84 Years No Post-Acute Placement(s) Listed No Post-Acute Service(s) Listed No Curaspan Referral(s) Listed Discharge To Care Management : Home Health Services (Related/SOC within 3 days)-06 KEISHA RIVERA Mkt Supervisor Beater Room-Utilization Mgt - 10/01/2020 14:30 EDT Electronically signed by Nidia [facility] Conversion Quantitative Analyst Developer Cerner at 06/29/2022 2:17 PM CDT documented in this encounter Plan of Treatment Upcoming Encounters Date Type Department Care Team (Late st Contact Info) Description 05/25/2025 10:45 AM EDT Office Visit [facility] - [place] [address] [place] [address] Jalen Enciso MD [address] [place] [address] [place] [address] 06/23/2025 10:00 AM EDT Appointment [facility] - [place] [address] [place] [address] Román White MD [address] [place] [address] documented as of this encounter Visit Diagnoses Not on filedocumented in this encounter Care Teams Automotive Window Tinter Relationship Specialty Start Date End Date Kaylene Brooke MD [address] [place] [address] PCP - General General Internal Medicine 01/27/22 Farooq Marcus MD [address] [place] [address] PCP - General Family Medicine 02/27/22 documented as of this encounter
--- OUTSIDE RECORDS SUMMARY | 2025-02-27 15:20 | XMS_ITS | Encounter Summary ---
Author Organization [employer] ([place], [place], [place], [place], [place]) Address [address] [place] [address] Care Team Providers Care Military Source Operations Specialist Name Role Phone Kaylene Brooke MD Primary Care Provider [phone] Farooq Marcus MD Primary Care Provider [phone] Encounter Details Date Type Department Care Team (Late st Contact Info) Description 09/28/2020 Transcribed Document [facility] [place] [address] [place] [address] ProviderRayray MD [address] [place] [address] [phone] Social History Tobacco Use Types Packs/Day Years [...] Performed On: 09/28/2020 15:29 EDT by ELIZABETH LAMBERT RN-Stud Master/MistressInternational Manager Progress Note Discharge Arrangements : Patient Post-Acute Information Patient Name: RANCHO DEL ANGEL Gender: Male : 39 Age: 84 Years No Post-Acute Placement(s) Listed No Post-Acute Service(s) Listed No Curaspan Referral(s) Listed Is the Patient Meeting Medical Necessity : Yes Did you Attend Multidisciplinary Rounds? : Yes ELIZABETH LAMBERT, RN-Stud Master/Mistress - 09/28/2020 15:29 EDT Narrative Progress Note Narrative Progress Note : rrs mod boost 3 6/5 day s cm spoke to daughter and patient . cm arranged for [facility] h[facility] and walker from [facility] . choice /im needed . family will transport at discharge [facility] dcp: home hh Historical Progress Note : rrs mod boost 3 5/5 day s cm spoke to daughter and patient . cm arranged for [facility] hh and walker from [facility] . choice /im needed . family will transport at discharge [facility] dcp: home hh ELIZABETH LAMBERT, RN-Stud Master/Mistress - 09/27/20 15:38:46 rrs mod plans pending -[facility] previous charting :DCP: patient states he plans on going home with spouse, who will transport, therapy recommends home health and rolling walker at discharge and patient agrees to this if MD feels appropriate. CM will continue to follow. ELIZABETH LAMBERT, RN-Stud Master/Mistress - 09/24/20 16:39:43 ELIZABETH LAMBERT, RN-Stud Master/Mistress - 09/28/2020 15:29 EDT documented in this encounter Plan of Treatment Upcoming Encounters Date Type Department Care Team (Late st Contact Info) Description 05/25/2025 10:45 AM EDT Office Visit [facility] - [address] [place] [address] Jalen Enciso MD [address] [place] [address] 06/23/2025 10:00 AM EDT Appointment [facility] - [address] [place] [address] Román White MD [address] [place] [address] documented as of this encounter Visit Diagnoses Not on filedocumented in this encounter Care Teams Military Source Operations Specialist Relationship Specialty Start Date End Date Kaylene Brooke MD [address] [place] [address] PCP - General General Internal Medicine 01/27/22 Farooq Marcus MD [address] [facility] [place] [address] PCP - General Family Medicine 02/27/22 documented as of this encounter
--- OUTSIDE RECORDS SUMMARY | 2025-02-27 15:20 | XMS_ITS | Encounter Summary ---
Author Organization [employer] ([place], [place], [place], [place], [place]) Address [address] [place] [address] Care Team Providers Care Food Sanitarian Name Role Phone Kaylene Brooke MD Primary Care Provider [phone] Farooq Marcus MD Primary Care Provider [phone] Encounter Details Date Type Department Care Team (Late st Contact Info) Description 10/13/2020 Transcribed Document [facility] [place] [address] [place] [address] ProviderRayray MD [address] [place] [address] Social History Tobacco Use Types Packs/Day Years [...] 05/25/2025 10:45 AM EDT Office Visit [facility] - [place] [address] [place] [address] Jalen Enciso MD [address] [place] [address] [place] [address] 06/23/2025 10:00 AM EDT Appointment [facility] - [place] [address] [place] [address] Román White MD [address] [place] [address] documented as of this encounter Visit Diagnoses Not on filedocumented in this encounter Care Teams Food Sanitarian Relationship Specialty Start Date End Date Kaylene Brooke MD [address] [place] [address] PCP - General General Internal Medicine 01/27/22 Farooq Marucs MD [address] [facility] [place] [address] PCP - General Family Medicine 02/27/22 documented as of this encounter
--- OUTSIDE RECORDS SUMMARY | 2025-02-27 15:20 | XMS_ITS | Encounter Summary ---
Author Organization [email or web address] ([place], [place], [place], [place], [place]) Address [address] [place] [address] Care Team Providers Care Closing Agent Name Role Phone Kaylene Brooke MD Primary Care Provider [phone] Farooq Marcus MD Primary Care Provider [phone] Encounter Details Date Type Department Care Team (Late Contact Info) Description 10/13/2020 Transcribed Document [facility] [place] [address] [place] [address] ProviderRayray MD [address] [place] [address] 044771 Social History Tobacco Use Types Packs/Day Years Used Date Smoking Tobacco: Never Assessed Sex and Gender Information Value Date Recorded Sex Assigned at Not on file Legal Sex Male 5:14 PM CDT Gender Identity Not on file Sexual Orientation Not on file documented as of this encounter Miscellaneous Notes * Cerner Conversion Note - Historical ProviderMD - 10/13/2020 5:00 AM CDT Chart Check - Review Order Profile Entered On: 10/13/2020 3:27 EDT Performed On: 10/13/2020 5:00 EDT by Camille Calix RN Chart Check Powerplans Initiated/Discontinued as Appropriate : Yes All Active Orders Reviewed : Yes Camille Calix RN - 10/13/2020 3:27 EDT Electronically signed by Nidia [facility] Conversion Metal Furnace Operator Cerner at 06/29/2022 2:23 PM CDT documented in this encounter Plan of Treatment Upcoming Encounters Date Type Department Care Team (Late st Contact Info) Description 05/25/2025 10:45 AM EDT Office Visit [facility] - [place] [address] [place] [address] Jalen Enciso MD [address] [place] [address] [place] [address] 06/23/2025 10:00 AM EDT Appointment [facility] - [place] [address] [place] [address] Román White MD [address] [place] [address] documented as of this encounter Visit Diagnoses Not on filedocumented in this encounter Care Teams Closing Agent Relationship Specialty Start Date End Date MendyKaylene dunn MD [address] [place] [address] PCP - General General Internal Medicine 01/27/22 Farooq Marcus MD [address] [facility] [place] [address] PCP - General Family Medicine 02/27/22 documented as of this encounter
--- OUTSIDE RECORDS SUMMARY | 2025-02-27 15:20 | XMS_ITS | Encounter Summary ---
Author Organization [employer] ([place], [place], [place], [place], [place]) Address [address] [place] [address] Care Team Providers Care Director Risk Name Role Phone Kaylene Brooke MD Primary Care Provider [phone] Farooq Marcus MD Primary Care Provider [phone] Encounter Details Date Type Department Care Team (Late st Contact Info) Description 09/28/2020 Transcribed Document [facility] [place] [address] [place] [address] ProviderRayray MD [address] [place] [address]771 Social History Tobacco Use Types Packs/Day Years [...] All Active Orders Reviewed : Yes Niki Guzman, MERA - 09/28/2020 3:18 EDT Electronically signed by Nidia [facility] Conversion Replenishment Analyst Cerner at 06/29/2022 2:32 PM CDT documented in this encounter Plan of Treatment Upcoming Encounters Date Type Department Care Team (Late st Contact Info) Description 05/25/2025 10:45 AM EDT Office Visit [facility] - [address] [place] [address] Jalen Enciso MD [address] [place] [address] 06/23/2025 10:00 AM EDT Appointment [facility] - [place] [address] [place] [address] Román White MD [address] [place] [address] documented as of this encounter Visit Diagnoses Not on filedocumented in this encounter Care Teams Director Risk Relationship Specialty Start Date End Date Kaylene Brooke MD [address] [place] [address] PCP - General General Internal Medicine 01/27/22 Farooq Marcus MD [address] [facility] [place] [address] PCP - General Family Medicine 02/27/22 documented as of this encounter
--- OUTSIDE RECORDS SUMMARY | 2025-02-27 15:20 | XMS_ITS | Encounter Summary ---
Author Organization [employer] ([place], [place], [place], [place], [place]) Address [address] [place] [address] Care Team Providers Care Casket Trimmer Name Role Phone Kaylene Brooke MD Primary Care Provider [phone] Farooq Marcus MD Primary Care Provider [phone] Encounter Details Date Type Department Care Team (Late st Contact Info) Description 10/10/2020 Transcribed Document [facility] [place] [address] ProviderRayray MD [address] [place] [address] Social History Tobacco Use Types Packs/Day Years [...] Insurance 1 Health Plan: MEDICARE Policy Number: [id number] Authorization Number: Insurance 2 Health Plan: [employer] Medicare Supplement Policy Number: [id number] Authorization Number: Insurance Primary Name : MEDICARE Policy Number: [id number] [employer] Medicare Supplement Policy Number: [id number] Historical Authorization Comments-Primary : No Authorization Comments Found TERESA GUZMÁN, Rn-Utilization Review - 10/10/2020 8:58 EDT documented in this encounter Plan of Treatment Upcoming Encounters Date Type Department Care Team (Late st Contact Info) Description 05/25/2025 10:45 AM EDT Office Visit [facility] - [place] [address] [place] [address] Jalen Enciso MD [address] [place] [address] [place] [address] 06/23/2025 10:00 AM EDT Appointment [facility] - [place] [address] [place] [address] Román White MD [address] [place] [address] documented as of this encounter Visit Diagnoses Not on filedocumented in this encounter Care Teams Casket Trimmer Relationship Specialty Start Date End Date Kaylene Brooke MD [address] [place] [address] PCP - General General Internal Medicine 01/27/22 Farooq Marcus MD [address] [place] [place] [address] PCP - General Family Medicine 02/27/22 documented as of this encounter
--- OUTSIDE RECORDS SUMMARY | 2025-02-27 15:20 | XMS_ITS | Encounter Summary ---
Author Organization [employer] ([place], [place], [place], [place], [place]) Address [address] [place] [address] Care Team Providers Care Molder Setter Name Role Phone Kaylene Brooke MD Primary Care Provider [phone] Farooq Marcus MD Primary Care Provider [phone] Encounter Details Date Type Department Care Team (Late st Contact Info) Description 10/10/2020 Transcribed Document [facility] [place] [address] ProviderRayray MD [address] [place] [address] Social History Tobacco Use Types Packs/Day Years Used Date Smoking Tobacco: Never Assessed Sex and Gender Information Value Date Recorded Sex Assigned at Not on file Legal Sex Male 5:14 PM CDT Gender Identity Not on file Sexual Orientation Not on file documented as of this encounter Miscellaneous Notes * Cerner Conversion Note - Historical ProviderMD - 10/10/2020 9:30 AM CDT Education-General [...] Verbalizes understanding Oral Care : Verbalizes understanding [facility] to bed, light, tv, call device : [...] Description 05/25/2025 10:45 AM EDT Office Visit [facility] - [place] [address] [place] [address] Jalen Enciso MD [address] [place] [address] 06/23/2025 10:00 AM EDT Appointment [facility] - [place] [address] [place] [address] Román White MD [address] [facility] [address] [place] [address] documented as of this encounter Visit Diagnoses Not on filedocumented in this encounter Care Teams Molder Setter Relationship Specialty Start Date End Date Kaylene Brooke MD [address] [place] [address] PCP - General General Internal Medicine 01/27/22 Farooq Marcus MD [address] [place] [address] PCP - General Family Medicine 02/27/22 documented as of this encounter
--- OUTSIDE RECORDS SUMMARY | 2025-02-27 15:21 | XMS_ITS | Encounter Summary ---
Author Organization [employer] ([place], [place], [place], [place], [place]) Address [address] [place] [address] Care Team Providers Care Welder Explosion Name Role Phone Kaylene Brooke MD Primary Care Provider [phone] Farooq Marcus MD Primary Care Provider [phone] Encounter Details Date Type Department Care Team (Late st Contact Info) Description 10/09/2020 Transcribed Document [facility] [place] [address] [place] [address] ProviderRayray MD [address] [place] [address] Social History Tobacco Use Types Packs/Day Years [...] in wound bed presentation noted please contact [facility]OC[facility] department. Nora Guillen, Rn-Enterostomal - 10/11/2020 7:25 EDT Electronically signed by [facility] Conversion Bundle Person Cerner at 06/29/2022 2:41 PM CDT documented in this encounter Plan of Treatment Upcoming Encounters Date Type Department Care Team (Late st Contact Info) Description 05/25/2025 10:45 AM EDT Office Visit [facility] - [address] [place] [address] Jalen Enciso MD [address] [facility] [address] [place] [address] 06/23/2025 10:00 AM EDT Appointment [facility] - [place] [address] [place] [address] Román White MD [address] [place] [address] documented as of this encounter Visit Diagnoses Not on filedocumented in this encounter Care Teams Welder Explosion Relationship Specialty Start Date End Date Kaylene Brooke MD [address] [place] [address] PCP - General General Internal Medicine 01/27/22 Farooq Marcus MD [address] [facility] [place] [address] PCP - General Family Medicine 02/27/22 documented as of this encounter
--- OUTSIDE RECORDS SUMMARY | 2025-02-27 15:21 | XMS_ITS | Encounter Summary ---
Author Organization [employer] ([place], [place], [place], [place], [place]) Address [address] [place] [address] Care Team Providers Care Tinning Equipment Tender Name Role Phone Kaylene Brooke MD Primary Care Provider [phone] Farooq Marcus MD Primary Care Provider [phone] Encounter Details Date Type Department Care Team (Late Contact Info) Description 10/09/2020 Transcribed Document [facility] [place] [address] [place] [address] ProviderRayray MD [address] [place] [address] [phone] Social History Tobacco Use Types Packs/Day Years [...] Zaida Cortez RN - 10/09/2020 18:36 EDT documented in this encounter Plan of Treatment Upcoming Encounters Date Type Department Care Team (Late st Contact Info) Description 05/25/2025 10:45 AM EDT Office Visit [facility] - [address] [place] [address] Jalen Enciso MD [address] [place] [address] [place] [address] 06/23/2025 10:00 AM EDT Appointment [facility] - [place] [address] [place] [address] Román White MD [address] [place] [address] documented as of this encounter Visit Diagnoses Not on filedocumented in this encounter Care Teams Tinning Equipment Tender Relationship Specialty Start Date End Date MendyKaylene dunn MD [address] [place] [address] PCP - General General Internal Medicine 01/27/22 Farooq Marcus MD [address] [facility] [place] [address] PCP - General Family Medicine 02/27/22 documented as of this encounter
--- OUTSIDE RECORDS SUMMARY | 2025-02-27 15:21 | XMS_ITS | Encounter Summary ---
Author Organization [employer] ([place], [place], [place], [place], [place]) Address [address] [place] [address] Care Team Providers Care Gas Check Pad Maker Name Role Phone Kaylene Brooke MD Primary Care Provider [phone] Farooq Marcus MD Primary Care Provider [phone] Encounter Details Date Type Department Care Team (Late st Contact Info) Description 09/22/2020 Transcribed Document [facility] [place] [address] [place] [address] ProviderRayray MD [address] [place] [address] Social History Tobacco Use Types Packs/Day Years [...] Description 05/25/2025 10:45 AM EDT Office Visit [facility] - [address] [place] [address] Jalen Enciso MD [address] [place] [address] [place] [address] 06/23/2025 10:00 AM EDT Appointment [facility] - [address] [place] [address] Román White MD [address] [place] [address] documented as of this encounter Visit Diagnoses Not on filedocumented in this encounter Care Teams Gas Check Pad Maker Relationship Specialty Start Date End Date Kaylene Brooke MD [address] [place] [address] PCP - General General Internal Medicine 01/27/22 Farooq Marcus MD [address] [facility] [place] [address] PCP - General Family Medicine 02/27/22 documented as of this encounter
--- OUTSIDE RECORDS SUMMARY | 2025-02-27 15:21 | XMS_ITS | Encounter Summary ---
Author Organization [employer] ([place], [place], [place], [place], [place]) Address [address] [place] [address] Care Team Providers Care Used Car Make Ready Worker Name Role Phone Kaylene Brooke MD Primary Care Provider [phone] Farooq Marcus MD Primary Care Provider [phone] Encounter Details Date Type Department Care Team (Late st Contact Info) Description 10/09/2020 Transcribed Document [facility] [place] [address] [place] [address] ProviderRayray MD [address] [place], [place] [address] Social History Tobacco Use Types Packs/Day Years Used Date Smoking Tobacco: Never Assessed Sex and Gender Information Value Date Recorded Sex Assigned at Not on file Legal Sex Male 5:14 PM CDT Gender Identity Not on file Sexual Orientation Not on file documented as of this encounter Miscellaneous Notes * Cerner Conversion Note - Rayray ProviderMD - 10/09/2020 12:19 PM CDT [place] Suicide Severity Rating Scale (C-SSRS) Entered On: 10/09/2020 14:00 EDT Performed On: 10/09/2020 13:56 EDT by PRISCILLA JUAN RN [place] Suicide Severity Rating Scale (C-SSRS) CSSRS Past Month Wish to be : No CSSRS Past Month Suicidal Thoughts : No CSSRS Lifetime Suicide Behavior : No Suicide Severity Rating Score : 0 Suicide Severity Rating : No Additional Care Required at this time PRISCILLA JUAN RN - 10/09/2020 13:56 EDT Electronically signed by Interface, Sjh Conversion Solar Photovoltaic Systems Engineer Cerner at 06/29/2022 2:40 PM CDT documented in this encounter Plan of Treatment Upcoming Encounters Date Type Department Care Team (Late st Contact Info) Description 05/25/2025 10:45 AM EDT Office Visit [facility] - [address] [place] [address] Jalen Enciso MD [address] [place] [address] [place] [address] 06/23/2025 10:00 AM EDT Appointment [facility] - [address] [place] [address] Román White MD [address] [place] [address] documented as of this encounter Visit Diagnoses Not on filedocumented in this encounter Care Teams Used Car Make Ready Worker Relationship Specialty Start Date End Date Kaylene Brooke MD [address] [place] [address] PCP - General General Internal Medicine 01/27/22 Farooq Marcus MD [address] [place] [place] [address] PCP - General Family Medicine 02/27/22 documented as of this encounter
--- OUTSIDE RECORDS SUMMARY | 2025-02-27 15:21 | XMS_ITS | Encounter Summary ---
Author Organization [employer] ([place], [place], [place], [place], [place]) Address [address] [place] [address] Care Team Providers Care Country Singer Name Role Phone Kaylene Brooke MD Primary Care Provider [phone] Farooq Marcus MD Primary Care Provider [phone] Encounter Details Date Type Department Care Team (Late st Contact Info) Description 09/22/2020 Transcribed Document [facility] [place] [address] [place] [address] ProviderRayray MD [address] [place] [address] [id number] Social History Tobacco Use Types Packs/Day Years Used Date Smoking Tobacco: Never Assessed Sex and Gender Information Value Date Recorded Sex Assigned at Not on file Legal Sex Male 5:14 PM CDT Gender Identity Not on file Sexual Orientation Not on file documented as of this encounter Miscellaneous Notes * Cerner Conversion Note - Historical ProviderMD - 09/22/2020 4:21 PM CDT Admission [...] Wheelchair Legal Guardian : Spouse Support Person/Patient Solutions Manager : Yes Support Person/Pt Rep Name : Jamie Del Angel - Support Person/Pt Rep Contact Information : [phone] Want Family/Rep/Phys Notified of Admit : No Emergency Contact #1 : JAMIE Emergency Contact #1 Phone Number : [phone] Emergency Contact #1 Relationship : SPOUSE Emergency Contact #2 : MAZIN Emergency Contact #2 Phone Number : [phone] Emergency Contact #2 Relationship : SON Chief Complaint : c/o generalized abdominal pain, n/v since last night. Temp 102 yesterday per . 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 Enciso. Information Obtained From : Patient Primary Language : Barbadian Communication Barrier : None Bottle Gauger Needed : No Sean Guidry Rn - [...] ability Herrera Fall Risk Score : 45 HERRREA Fall Scale Risk Level : 46 or > High Risk [place] Fall Interventions : Adequate lighting, Assistive devices [...] Source : Chart Height Entry Format : [place] Height, Feet : 6 ft(Converted to: 183 cm, 72 Inch) Height, Inches : 0 Inch(Converted to: 0 ft 0 Inch, 0.00 cm) Clinical Height : 182.88 cm Weight Source : Bed scale Weight Entry Format : [place] Clinical Dosing Weight : 79.55 kg Weight, Pounds : 175 lb Body Surface Area (BSA) : 2.01 m2 Body Mass Index : 23.8 kg/m2 [place] Body Weight : 77 kg Sean Guidry [...] Tool Risk Level : Patient at risk Chao, Sean Robertson Rn - 09/22/2020 23:43 EDT [place] Suicide Severity Rating Scale (C-SSRS) CSSRS Past Month Wish to be : No CSSRS Past Month Suicidal Thoughts : No CSSRS Lifetime Suicide Behavior : No Suicide Severity Rating Score : 0 Suicide Severity Rating : No Additional Care Required at this time Chao joyanu Robertson Rn - 09/22/2020 23:43 EDT Psychosocial [...] Common streetwear Clothing Disposition : With patient ChaoLorenzonu Robertson Rn - 09/22/2020 23:43 EDT documented in this encounter Plan of Treatment Upcoming Encounters Date Type Department Care Team (Late st Contact Info) Description 05/25/2025 10:45 AM EDT Office Visit [facility] - [address] [place] [address] Jalen Enciso MD [address] [facility] [address] [place] [address] 06/23/2025 10:00 AM EDT Appointment [facility] - [address] [place] [address] Román White MD [address] [place] [address] documented as of this encounter Visit Diagnoses Not on filedocumented in this encounter Care Teams Country Singer Relationship Specialty Start Date End Date Kaylene Brooke MD [address] [place] [address] PCP - General General Internal Medicine 01/27/22 Fraooq Marcus MD [address] [place] [address] PCP - General Family Medicine 02/27/22 documented as of this encounter
--- OUTSIDE RECORDS SUMMARY | 2025-02-27 15:21 | XMS_ITS | Encounter Summary ---
Author Organization [employer] ([place], [place], [place], [place], [place]) Address [address] [place] [address] Care Team Providers Care Legal Instruments Examiner Name Role Phone Kaylene Brooke MD Primary Care Provider [phone] Farooq Marcus MD Primary Care Provider [phone] Encounter Details Date Type Department Care Team (Late st Contact Info) Description 09/22/2020 Transcribed Document [facility] [address] [place] [address] Swathi Augustin MD One [facility] Dept [place] [address] Social History Tobacco Use Types Packs/Day Years [...] EDT Height Source Stated Height Entry Format [place] Height/Length, TRISTANIAN (ft) 6 ft Height/Length TRISTANIAN 0 Inch CLINICALHEIGHT 182.88 cm [place] Body Weight 76.59 kg Weight Source, ED Critical estimated dosing weight Weight Entry Format Jerauld Weight Kuwaiti lb 175 lb CLINICALWEIGHT 79.55 kg Body [...] 93, normal sinus rhythm, no ectopy, normal OR & QRS intervals, EP Interp, Left bundle branch block consistent with prior EKG. Results review: Lab results : Lab Results 09/22/2020 13:45 EDT Lactic Acid Level 3.6 mmol/L CRIT 09/22/2020 11:41 EDT Influenza A Negative Influenza B Negative SARS-CoV-2 (COVID19 PCR) Negative 09/22/2020 11:25 EDT Urine Type. U CleanCatch Urine Color Adriana Urine Appearance Clear Urine Specific [place] 1.016 Urine pH Dipstick 7.0 Urine Leukocyte [...] % LOW ALYC # 0 K/uL NA [place] Percent Man 1 % LOW Eos Percent Man 0 % Baso Percent Man 0 % [place] Percent Man 1 % RBC Morphology Abnormal Anisocytosis 1+ Hypochromia 1+ Platelet Ct Estimate Adequate Procalcitonin 45.30 ng/mL HI . Radiology results: Reviewed radiologist's report, Radiology Results (Last 48 hours) [id number] -- 09/22/2020 09:28 CR Chest 1 Vw [...] Description 05/25/2025 10:45 AM EDT Office Visit [facility] - [address] [place] [address] Jalen Enciso MD [address] [place] [address] 06/23/2025 10:00 AM EDT Appointment [facility] - [address] [place] [address] Román White MD [address] [place] [address] documented as of this encounter Visit Diagnoses Not on filedocumented in this encounter Care Teams Legal Instruments Examiner Relationship Specialty Start Date End Date Kaylene Brooke MD [address] [place] [address] PCP - General General Internal Medicine 01/27/22 Farooq Marcus MD [address] [place] [address] PCP - General Family Medicine 02/27/22 documented as of this encounter
--- OUTSIDE RECORDS SUMMARY | 2025-02-27 15:21 | XMS_ITS | Encounter Summary ---
Author Organization [employer] ([place], [place], [place], [place], [place]) Address [address] [place] [address] Care Team Providers Care Premix Concrete Batcher Name Role Phone Kaylene Brooke MD Primary Care Provider [phone] Farooq Marcus MD Primary Care Provider [phone] Encounter Details Date Type Department Care Team (Late st Contact Info) Description 09/22/2020 Transcribed Document [facility] [place] [address] [place] [address] ProviderRayray MD [address] [place], [place] [id number] Social History Tobacco Use Types Packs/Day Years Used Date Smoking Tobacco: Never Assessed Sex and Gender Information Value Date Recorded Sex Assigned at Not on file Legal Sex Male 5:14 PM CDT Gender Identity Not on file Sexual Orientation Not on file documented as of this encounter Miscellaneous Notes * Cerner Conversion Note - Rayray ProviderMD - 09/22/2020 9:28 AM CDT [place] Suicide Severity Rating Scale (C-SSRS) Entered On: 09/22/2020 11:11 EDT Performed On: 09/22/2020 11:06 EDT by CELIA ALBERT RN [place] Suicide Severity Rating Scale (C-SSRS) CSSRS Past Month Wish to be : No CSSRS Past Month Suicidal Thoughts : No CSSRS Lifetime Suicide Behavior : No Suicide Severity Rating Score : 0 Suicide Severity Rating : No Additional Care Required at this time CELIA ALBERT RN - 09/22/2020 11:06 EDT Electronically signed by Nidia [facility] Conversion Farmer And Grazier Cerner at 06/29/2022 2:25 PM CDT documented in this encounter Plan of Treatment Upcoming Encounters Date Type Department Care Team (Late st Contact Info) Description 05/25/2025 10:45 AM EDT Office Visit [facility] - [address] [place] [address] Jalen Enciso MD [address] [place] [address] [place] [address] 06/23/2025 10:00 AM EDT Appointment [facility] - [address] [place] [address] Román White MD [address] [place] [address] documented as of this encounter Visit Diagnoses Not on filedocumented in this encounter Care Teams Premix Concrete Batcher Relationship Specialty Start Date End Date Kaylene Brooke MD [address] [place] [address] PCP - General General Internal Medicine 01/27/22 Farooq Marcus MD [address] [place] [address] PCP - General Family Medicine 02/27/22 documented as of this encounter
--- OUTSIDE RECORDS SUMMARY | 2025-02-27 15:21 | XMS_ITS | Encounter Summary ---
Author Organization [employer] ([place], [place], [place], [place], [place]) Address [address] [place] [address] Care Team Providers Care Travel Consultant Name Role Phone Kaylene Brooke MD Primary Care Provider [phone] Farooq Marcus MD Primary Care Provider [phone] Encounter Details Date Type Department Care Team (Late st Contact Info) Description 09/22/2020 Transcribed Document [facility] [place] [address] [place] [address] ProviderRayray MD [address] [place] [address] Social History Tobacco Use Types Packs/Day Years Used Date Smoking Tobacco: Never Assessed Sex and Gender Information Value Date Recorded Sex Assigned at Not on file Legal Sex Male 5:14 PM CDT Gender Identity Not on file Sexual Orientation Not on file documented as of this encounter Miscellaneous Notes * Cerner Conversion Note - Historical ProviderMD - 09/22/2020 9:28 AM CDT ED [...] : 2 - Emer[facility] : [facility] ED Anu Evans RN - 09/22/2020 [...] 09:50:12 EDT) Problems(Active) Anxiety disorder (SNOMED CT :677777100 ) Name of Problem: Anxiety disorder ; Recorder: ERIKA AKERS APRN-INT; Confirmation: Confirmed ; Classification: Medical ; Code: [id number] ; Contributor System: Harvest Trends ; Last Updated: 04/22/2014 0:56 EST ; Life Cycle Date: 04/22/2014 ; Life Cycle Status: Active ; Responsible Provider: ERIKA AKERS APRN-INT; Vocabulary: SNOMED CT At risk for sleep apnea (IMO :40335365 ) Name of Problem: At risk for sleep apnea ; Recorder: SYSTEM, SYSTEM; Confirmation: Confirmed ; Classification: Medical ; Code: [id number] ; Last Updated: 09/08/2020 8:44 EDT ; Life Cycle Date: 09/08/2020 ; Life Cycle Status: Active ; Vocabulary: IMO Chest pain with high risk for cardiac etiology (SNOMED CT :71047674 ) Name of Problem: Chest pain with high risk for cardiac etiology ; Recorder: ERIKA AKERS APRN-INT; Confirmation: Confirmed ; Classification: Medical ; Code: 71558111 ; Contributor System: AdociaChart ; Last Updated: 04/22/2014 0:56 EST ; Life Cycle Status: Active ; Responsible Provider: ERIKA AKERS APRN-INT; Vocabulary: SNOMED CT Esophagus cancer (SNOMED CT :670633735 ) Name of Problem: Esophagus cancer ; Recorder: JUVE GILBERT Rn-Clinical Coordinator I; Confirmation: Confirmed ; Classification: Patient Stated ; Code: 024810042 ; Contributor System: PowerChart ; Last Updated: 09/08/2020 8:36 EDT ; Life Cycle Date: 09/08/2020 ; Life Cycle Status: Active ; Vocabulary: SNOMED CT Hyperlipidemia (SNOMED CT :65915524 ) Name of Problem: Hyperlipidemia ; Recorder: ERIKA BOYER MD-EMR; Confirmation: Confirmed ; Classification: Medical ; Code: 98643483 ; Contributor System: PowerChart ; Last Updated: 04/21/2014 20:55 EST ; Life Cycle Date: 04/21/2014 ; Life Cycle Status: Active ; Responsible Provider: ERIKA BOYER MD-EMR; Vocabulary: SNOMED CT Leg neuralgia (SNOMED CT :09189591 ) Name of Problem: Leg neuralgia ; Recorder: ERIKA AKERS APRN-INT; Confirmation: Confirmed ; Classification: Medical ; Code: 46210760 ; Contributor System: AdociaChart ; Last Updated: 04/22/2014 0:56 EST ; Life Cycle Date: 04/22/2014 ; Life Cycle Status: Active ; Responsible Provider: AKERS, ERIKA BOBBY, RAIL MAINTENANCE WORKER-INT; Vocabulary: SNOMED CT Myocardial infarction (SNOMED CT :25074573 ) Name of Problem: Myocardial infarction ; Recorder: JUVE GILBERT Rn-Clinical Coordinator I; Confirmation: Confirmed ; Classification: Patient Stated ; Code: 89835377 ; Contributor System: Harvest Trends ; Last Updated: 09/08/2020 8:36 EDT ; Life Cycle Date: 09/08/2020 ; Life Cycle Status: Active ; Vocabulary: SNOMED CT Diagnoses(Active) Abdominal pain Date: 09/22/2020 ; Diagnosis Type: Reason For Visit ; Confirmation: Complaint of ; Clinical Dx: Abdominal pain ; Classification: Medical ; Clinical Service: Non-Specified ; Code: PNED ; Probability: 0 ; Diagnosis Code: [id number] ED Height and Weight Height Source : Stated Height Entry Format : [place] Height, Feet : 6 ft(Converted to: 183 cm, 72 Inch) Height, Inches : 0 Inch(Converted to: 0 ft 0 Inch, 0.00 cm) Clinical Height : 182.88 cm Weight Source, ED : Critical estimated dosing weight Weight Entry Format : [place] Weight, Pounds : 175 lb Clinical Dosing Weight : 79.55 kg Body Surface Area (BSA) : 2.01 m2 Body Mass Index : 23.8 kg/m2 [place] Body Weight (IBW) : 76.59 kg Anu [...] Description 05/25/2025 10:45 AM EDT Office Visit [facility] - [address] [place] [address]23-26 Jalen Enciso MD [address] [place] [address] [place] [address] 06/23/2025 10:00 AM EDT Appointment [facility] - [address] [place] [address] Román White MD [address] [place] [address] documented as of this encounter Visit Diagnoses Not on filedocumented in this encounter Care Teams Travel Consultant Relationship Specialty Start Date End Date Kaylene Brooke MD [address] [place] [address] PCP - General General Internal Medicine 01/27/22 Farooq Marcus MD [address] [place] [address] PCP - General Family Medicine 02/27/22 documented as of this encounter
--- OUTSIDE RECORDS SUMMARY | 2025-02-27 15:21 | XMS_ITS | Encounter Summary ---
Author Organization [employer] ([place], [place], [place], [place], [place]) Address [address] [place] [address] Care Team Providers Care Well Service Floor Worker Name Role Phone Kaylene Brooke MD Primary Care Provider [phone] Farooq Marcus MD Primary Care Provider [phone] Encounter Details Date Type Department Care Team (Late st Contact Info) Description 09/22/2020 Transcribed Document [facility] [place] [address] [place] [address] ProviderRayray MD [address] [place] [address] [id number] Social History Tobacco Use Types Packs/Day Years [...] months ago with dr topete done at [facility] - pt stopped taking brilinta on his own accord shortly after the PCI as it was making him sob - on aspirin 81 mg daily. syncope 2 weeks ago - two weeks ago, was at [facility] for this stay. depression - start on antidepressant last week with dr enciso - pt and unsure what medication this was. irregular heart rhythm, possibly afib - with pacemaker - follows with dr topete and dr COSTA in [place] Patients Medical Story: Mr. Del Angel is an 84 year old male with history of esophageal cancer on chemotherapy with dr Enciso, last chemo on 09/17, coronary artery disease last with PCI in [facility] about 2 months ago as well as pacemaker for heart rhythm , possibly afib who presented to [facility] on 09/22 for evaluation of abd [...] stent placement about 2 months ago in [facility] he was started on brilinta and aspirin and didnt like how it made me feel thus he stopped taking the brilinta. He had syncopal episode after taking metoprolol and protonix and thus stopped taking those too about 2 weeks ago. He was also hospitalized at [facility] then. He reports significant weight [...] Will notify Primary Care Provider MAZIN SHERIDAN MD-[facility] of change in care plan. Will look at further interventions as needed. Code Status: At this time patient wishes to be Code Status Start: 09/22/20 17:15:00 EDT, Full Code, Continuous Order Time Spent with Patient: [ 16] minutes Chantelle Lundberg D.O. [facility] Hospitalist pager: [phone] Electronically signed by Nidia [facility] Conversion Invoice Classification Clerk Cerner at 06/29/2022 2:26 PM CDT documented in this encounter Plan of Treatment Upcoming Encounters Date Type Department Care Team (Late st Contact Info) Description 05/25/2025 10:45 AM EDT Office Visit [facility] - [address] [place] [address] Jalen Enciso MD [address] [place] [address] 06/23/2025 10:00 AM EDT Appointment [facility] - [address] [place] [address] Román White MD [address] [place] [address] documented as of this encounter Visit Diagnoses Not on filedocumented in this encounter Care Teams Well Service Floor Worker Relationship Specialty Start Date End Date Kaylene Brooke MD [address] [place] [address] PCP - General General Internal Medicine 01/27/22 Farooq Marcus MD [address] [place] [address] PCP - General Family Medicine 02/27/22 documented as of this encounter
--- OUTSIDE RECORDS SUMMARY | 2025-02-27 15:21 | XMS_ITS | Encounter Summary ---
Author Organization [employer] ([place], [place], [place], [place], [place]) Address [address] [place] [address] Care Team Providers Care Flatwork Feeder Name Role Phone Kaylene Brooke MD Primary Care Provider [phone] Farooq Marcus MD Primary Care Provider [phone] Encounter Details Date Type Department Care Team (Late st Contact Info) Description 10/09/2020 Transcribed Document [facility] [place] [address] [place] [address] ProviderRayray MD [address] [place] [address] [id number] Social History Tobacco Use Types Packs/Day Years [...] within reach RN/PCT Informed Comment : [facility] tx Treatment End Time : 10/11/2020 13:56 EDT [...] to Sit : Supervision/set-up (Comment: [facility] [Virginia Gonzalez, OCCUPATIONAL THERAPIST NON-EXEMPT - 10/11/2020 15:42 EDT] [...] OCCUPATIONAL THERAPIST NON-EXEMPT - 10/11/2020 15:42 EDT Branch Maker Goals, OT Grooming LTG Grid Goal #1 [...] OCCUPATIONAL THERAPIST NON-EXEMPT - 10/11/2020 15:42 EDT [place] OT Charges OT Eval Low Complexity : 1 Virginia Gonzalez OCCUPATIONAL THERAPIST NON-EXEMPT - 10/11/2020 15:42 EDT Electronically signed by [facility] Conversion Electric Motors Salesperson Cerner at 06/29/2022 2:42 PM CDT documented in this encounter Plan of Treatment Upcoming Encounters Date Type Department Care Team (Late st Contact Info) Description 05/25/2025 10:45 AM EDT Office Visit [facility] - [address] [place] [address] Jalen Enciso MD [address] [place] [address] 06/23/2025 10:00 AM EDT Appointment [facility] - [address] [place] [address] Román White MD [address] [place] [address] documented as of this encounter Visit Diagnoses Not on filedocumented in this encounter Care Teams Flatwork Feeder Relationship Specialty Start Date End Date Kaylene Brooke MD [address] [place] [address] PCP - General General Internal Medicine 01/27/22 Farooq Marcus MD [address] [place] [address] PCP - General Family Medicine 02/27/22 documented as of this encounter
--- OUTSIDE RECORDS SUMMARY | 2025-02-27 15:21 | XMS_ITS | Encounter Summary ---
Author Organization [employer] ([place], [place], [place], [place], [place]) Address [address] [place] [address] Care Team Providers Care Tenon Machine Operator Name Role Phone Kaylene Brooke MD Primary Care Provider [phone] Farooq Marcus MD Primary Care Provider [phone] Encounter Details Date Type Department Care Team (Late st Contact Info) Description 10/09/2020 Transcribed Document [facility] [place] [address] [place] [address] ProviderRayray MD [address] [place] [address] 567401 Social History Tobacco Use Types Packs/Day Years [...] Communication Barrier : None Primary Language : Greek Any Spiritual/Cultural Needs or Requests : No [...] Description 05/25/2025 10:45 AM EDT Office Visit [facility] - [address] [place] [address] Jalen Enciso MD [address] [facility] [address] [place] [address] 06/23/2025 10:00 AM EDT Appointment [facility] - [address] [place] [address] Román White MD [address] [place] [address] documented as of this encounter Visit Diagnoses Not on filedocumented in this encounter Care Teams Tenon Machine Operator Relationship Specialty Start Date End Date Kaylene Brooke MD [address] [place] [address] PCP - General General Internal Medicine 01/27/22 Farooq Marcus MD [address] [place] [address] PCP - General Family Medicine 02/27/22 documented as of this encounter
--- OUTSIDE RECORDS SUMMARY | 2025-02-27 15:21 | XMS_ITS | Encounter Summary ---
Author Organization [employer] ([place], [place], [place], [place], [place]) Address [address] [place] [address] Care Team Providers Care Ground Crew Linesman Name Role Phone Kaylene Brooke MD Primary Care Provider [phone] Farooq Marcus MD Primary Care Provider [phone] Encounter Details Date Type Department Care Team (Late st Contact Info) Description 09/22/2020 Transcribed Document [facility] [place] [address] [place] [address] ProviderRayray MD [address] [place] [address] [phone] Social History Tobacco Use Types Packs/Day Years [...] change in location/level of care Rapid Response Ground Crew Linesman #1 : MYCHAL NAM, RN MYCHAL NAM, RN - 09/22/2020 12:21 EDT Electronically signed by [facility], [facility] Conversion Hall Coordinator Cerner at 06/29/2022 2:15 PM CDT documented in this encounter Plan of Treatment Upcoming Encounters Date Type Department Care Team (Late st Contact Info) Description 05/25/2025 10:45 AM EDT Office Visit [facility] - [address] [place] [address] Jalen Enciso MD [address] [place] [address] 06/23/2025 10:00 AM EDT Appointment [facility] [place] [address] [place] [address] Román White MD [address] [place] [address] documented as of this encounter Visit Diagnoses Not on filedocumented in this encounter Care Teams Ground Crew Linesman Relationship Specialty Start Date End Date Kaylene Brooke MD [address] [place] [address] PCP - General General Internal Medicine 01/27/22 Farooq Marcus MD [address] [place] [address] PCP - General Family Medicine 02/27/22 documented as of this encounter
--- OUTSIDE RECORDS SUMMARY | 2025-02-27 15:21 | XMS_ITS | Encounter Summary ---
Author Organization [employer] ([place], [place], [place], [place], [place]) Address [address] [place] [address] Care Team Providers Care Rough Planer Tender Name Role Phone Kaylene Brooke MD Primary Care Provider [phone] Farooq Marcus MD Primary Care Provider [phone] Encounter Details Date Type Department Care Team (Late st Contact Info) Description 09/22/2020 Transcribed Document [facility] [place] [address] [place] [address] ProviderRayray MD [address] [place] [address] Social History Tobacco Use Types Packs/Day Years [...] Patient Referral Reason Comment : Living Will Sales Representative Consultant Services Provided : Yes Sales Representative Consultant Services Provided Comment : Completed Living Will Ministry Provided to : Patient, Family/Significant other Denominational Preference : No listed preference TATIANA COULTER - 09/23/2020 8:16 EDT Interventions Advance Directive Information Provided : Yes Advance Directive Comment : Completed Living Will Emotional Support : Empathic/Engaged listening, Family/Significant other supported, Feelings expressed, Information provided Spiritual and Denominational : Spiritual/Denominational support provided Change, Adjustment and Loss : End of life discussion/care, Relationships/Community/Support system discussed Ethics, Advocacy and Referral : Supported patient's loved ones, Advocated for patient, Care now and/or in the future discussed, Resources provided TATIANA COULTER 09/23/2020 8:16 EDT Outcomes Affect/Behavior Changed : Relaxed Appreciation Expressed : Yes Information Received and Understood : Yes Thoughts, Feelings and Emotions Exp. : Yes Supportive Relationships Described : , Family HEADTATIANA - 09/23/2020 8:16 EDT Electronically signed by [facility], [facility] Conversion Ion Exchange Operator Cerner at 06/29/2022 2:31 PM CDT documented in this encounter Plan of Treatment Upcoming Encounters Date Type Department Care Team (Late st Contact Info) Description 05/25/2025 10:45 AM EDT Office Visit [facility] - [address] [place] [address] Jalen Enciso MD [address] [place] [place] [address] 06/23/2025 10:00 AM EDT Appointment [facility] - [place] [place] [address] Román White MD [address] [place] [address] documented as of this encounter Visit Diagnoses Not on filedocumented in this encounter Care Teams Rough Planer Tender Relationship Specialty Start Date End Date Kaylene Brooke MD [address] [place] [address] PCP - General General Internal Medicine 01/27/22 Farooq Marcus MD [address] [place] [address] PCP - General Family Medicine 02/27/22 documented as of this encounter
--- OUTSIDE RECORDS SUMMARY | 2025-02-27 15:21 | XMS_ITS | Encounter Summary ---
Author Organization [employer] ([place], [place], [place], [place], [place]) Address [address] [place] [address] Care Team Providers Care Pad Assembler Name Role Phone Kaylene Brooke MD Primary Care Provider [phone] Farooq Marcus MD Primary Care Provider [phone] Encounter Details Date Type Department Care Team (Late st Contact Info) Description 09/22/2020 Transcribed Document [facility] [place] [address] [place] [address] ProviderRayray MD [address] [place] [address] Social History Tobacco Use Types Packs/Day Years Used Date Smoking Tobacco: Never Assessed Sex and Gender Information Value Date Recorded Sex Assigned at Not on file Legal Sex Male 5:14 PM CDT Gender Identity Not on file Sexual Orientation Not on file documented as of this encounter Miscellaneous Notes * Cerner Conversion Note - Historical ProviderMD - 09/22/2020 4:52 PM CDT Consult Phone Call Documentation Entered On: 09/22/2020 16:53 EDT Performed On: 09/22/2020 16:52 EDT by Snehal Mathews Emergency Room Deputy Chief Sheriff Phone Call for Consults Consult Phone Call/Page Attempt : First call Consult Reason : esophageal cancer patient now n/v Provider Service Notified Name : Other: Oncology Date and Time Call Returned : 09/22/2020 16:52 EDT Consult, Additional Information : Spoke with Gely Monk and informed her of consult. Snehal Mathews Emergency Room Deputy Chief Sheriff - 09/22/2020 16:52 EDT documented in this encounter Plan of Treatment Upcoming Encounters Date Type Department Care Team (Late st Contact Info) Description 05/25/2025 10:45 AM EDT Office Visit [facility] - [address] [place] [address] Jalen Enciso MD [address] [place] [address] [place] [address] 06/23/2025 10:00 AM EDT Appointment [facility] - [address] [place] [address] Román White MD [address] [place] [address] documented as of this encounter Visit Diagnoses Not on filedocumented in this encounter Care Teams Pad Assembler Relationship Specialty Start Date End Date Kaylene Brooke MD [address] [place] [address] PCP - General General Internal Medicine 01/27/22 Farooq Marcus MD [address] [place] [address] PCP - General Family Medicine 02/27/22 documented as of this encounter
--- OUTSIDE RECORDS SUMMARY | 2025-02-27 15:21 | XMS_ITS | Encounter Summary ---
Author Organization [employer] ([place], [place], [place], [place], [place]) Address [address] [place] [address] Care Team Providers Care Meat Press Operator Name Role Phone Kaylene Brooke MD Primary Care Provider [phone] Farooq Marcus MD Primary Care Provider [phone] Encounter Details Date Type Department Care Team (Late st Contact Info) Description 10/09/2020 Transcribed Document [facility] [place] [address] [place] [address] ProviderRayray MD [address] [place] [address] [phone] Social History Tobacco Use Types Packs/Day Years [...] - 10/09/2020 18:26 EDT Electronically signed by [facility], [facility] Conversion Tube Cleaning Operator Cerner at 06/29/2022 2:37 PM CDT documented in this encounter Plan of Treatment Upcoming Encounters Date Type Department Care Team (Late st Contact Info) Description 05/25/2025 10:45 AM EDT Office Visit [facility] - [address] [place] [address] Jalen Enciso MD [address] [place] [address] 06/23/2025 10:00 AM EDT Appointment [facility] - [address] [place] [address] Román White MD [address] [place] [address] documented as of this encounter Visit Diagnoses Not on filedocumented in this encounter Care Teams Meat Press Operator Relationship Specialty Start Date End Date Kaylene Brooke MD [address] [place] [address] PCP - General General Internal Medicine 01/27/22 Farooq Marcus MD [address] [place] [address] PCP - General Family Medicine 02/27/22 documented as of this encounter
--- OUTSIDE RECORDS SUMMARY | 2025-02-27 15:21 | XMS_ITS | Encounter Summary ---
Author Organization [email or web address] ([place], [place], [place], [place], [place]) Address [address] [place] [address] Care Team Providers Care Motorcycle Repair Shop Supervisor Name Role Phone Kaylene Brooke MD Primary Care Provider [phone] Farooq Marcus MD Primary Care Provider [phone] Encounter Details Date Type Department Care Team (Late st Contact Info) Description 09/22/2020 Transcribed Document [facility] [place] [address] [place] [address] ProviderRayray MD [address] [place] [address] [phone] Social History Tobacco Use Types Packs/Day Years [...] Discharge : Spouse Mode Of Departure : Stretcher Bowling, Nelsy, MERA - 09/22/2020 22:56 EDT documented in this encounter Plan of Treatment Upcoming Encounters Date Type Department Care Team (Late st Contact Info) Description 05/25/2025 10:45 AM EDT Office Visit [facility] - [address] [place] [address] Jalen Enciso MD [address] [place] [address] [place] [address] 06/23/2025 10:00 AM EDT Appointment [facility] - [place] [place] [address] Román White MD [address] [place] [address] documented as of this encounter Visit Diagnoses Not on filedocumented in this encounter Care Teams Motorcycle Repair Shop Supervisor Relationship Specialty Start Date End Date Kaylene Brooke MD [address] [place] [address] PCP - General General Internal Medicine 01/27/22 Farooq Marcus MD [address] [facility] [place] [address] PCP - General Family Medicine 02/27/22 documented as of this encounter
--- OUTSIDE RECORDS SUMMARY | 2025-02-27 15:21 | XMS_ITS | Encounter Summary ---
Author Organization [employer] ([place], [place], [place], [place], [place]) Address [address] [place] [address] Care Team Providers Care Sprue Knocker Name Role Phone Kaylene Brooke MD Primary Care Provider [phone] Farooq Marcus MD Primary Care Provider [phone] Encounter Details Date Type Department Care Team (Late st Contact Info) Description 09/22/2020 Transcribed Document [facility] [place] [address] [place] [address] ProviderRayray MD [address] [place] [address] [phone] Social History Tobacco Use Types Packs/Day Years Used Date Smoking Tobacco: Never Assessed Sex and Gender Information Value Date Recorded Sex Assigned at Not on file Legal Sex Male 5:14 PM CDT Gender Identity Not on file Sexual Orientation Not on file documented as of this encounter Miscellaneous Notes * Cerner Conversion Note - Rayray ProviderMD - 09/22/2020 4:13 PM CDT Patient: DOYLE DEL ANGEL Age: [...] H 27 (SEP 22:15) SBP 94 (SEP 22:30) 94 (SEP 22:15) 140 (SEP 22 13:30) [...] level prior to dose on 09/24 @ 1999, Hold if >21 3. Other meds adjusted appropriately at this time, will monitor for changes. Rx will follow, Adrian Manedl,BarbraD,BCPS,BCCCP #[id number] Electronically signed by Nidia, [facility] Conversion Dust Collector Treater Cerner at 06/29/2022 2:21 PM CDT documented in this encounter Plan of Treatment Upcoming Encounters Date Type Department Care Team (Late st Contact Info) Description 05/25/2025 10:45 AM EDT Office Visit [facility] - [address] [place] [address] Jalen Enciso MD [address] [place] [address] 06/23/2025 10:00 AM EDT Appointment [facility] - [address] [place] [address] Román White MD [address] [place] [address] documented as of this encounter Visit Diagnoses Not on filedocumented in this encounter Care Teams Sprue Knocker Relationship Specialty Start Date End Date Kaylene Brooke MD [address] [place] [address] PCP - General General Internal Medicine 01/27/22 Farooq Marcus MD [address] [place] [address] PCP - General Family Medicine 02/27/22 documented as of this encounter
--- OUTSIDE RECORDS SUMMARY | 2025-02-27 15:21 | XMS_ITS | Encounter Summary ---
Author Organization [employer] ([place], [place], [place], [place], [place]) Address [address] [place] [address] Care Team Providers Care Cdl Instructor Name Role Phone Kaylene Brooke MD Primary Care Provider [phone] Farooq Marcus MD Primary Care Provider [phone] Encounter Details Date Type Department Care Team (Late st Contact Info) Description 10/09/2020 Transcribed Document [facility] [place] [address] [place] [address] ProviderRayray MD [address] [place] [address] [phone] Social History Tobacco Use Types Packs/Day Years [...] has a history of anxiety, chest pain, DE, 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 CINDY [...] Basic Command Assessment : Yes CINDY DEL RIO, PT - 10/11/2020 15:32 EDT Edu Topics [...] DEL RIO, PT - 10/11/2020 15:32 EDT Assisted Goals Ambulation LTG Grid Goal #1 Device [...] : Home, with home health (Comment: S1 [CNIDY DEL RIO, PT - 10/11/2020 15:32 EDT] ) CINDY DEL RIO, PT - 10/11/2020 15:32 EDT [employer] PT Charges PT Eval Low Complexity : 1 CINDY DEL RIO, PT - 10/11/2020 15:32 EDT Electronically signed by Nidia, [facility] Conversion Lubricating Specialist Cerner at 06/29/2022 2:37 PM CDT documented in this encounter Plan of Treatment Upcoming Encounters Date Type Department Care Team (Late st Contact Info) Description 05/25/2025 10:45 AM EDT Office Visit [facility] - [address] [place] [address] Jalen Enciso MD [address] [place] [address] [place] [address] 06/23/2025 10:00 AM EDT Appointment [facility] - [address] [place] [address] Román White MD [address] [place] [address] documented as of this encounter Visit Diagnoses Not on filedocumented in this encounter Care Teams Cdl Instructor Relationship Specialty Start Date End Date Kaylene Brooke MD [address] [place] [address] PCP - General General Internal Medicine 01/27/22 Farooq Marcus MD [address] [place] [address] PCP - General Family Medicine 02/27/22 documented as of this encounter
--- OUTSIDE RECORDS SUMMARY | 2025-02-27 15:21 | XMS_ITS | Encounter Summary ---
Author Organization [employer] ([place], [place], [place], [place], [place]) Address [address] [place] [address] Care Team Providers Care Regrind Mill Operator Name Role Phone Kaylene Brooke MD Primary Care Provider [phone] Farooq Marcus MD Primary Care Provider [phone] Encounter Details Date Type Department Care Team (Late st Contact Info) Description 09/22/2020 Transcribed Document [facility] [place] [address] [place] [address] ProviderRayray MD [address] [place] [address] [phone] Social History Tobacco Use Types Packs/Day Years [...] Communication Barrier : None Primary Language : [place] Islander Any Spiritual/Cultural Needs or Requests : No [...] (Last Updated: 04/22/2014 15:35:05 EST by DARRELL ERED, Mera) Alcohol: Alcohol Use History No. Use in Last 12 Months: No. (Last Updated: 04/22/2014 15:34:53 EST by DARRELL REED, Rn) Substance Abuse: Drug Use Hx: No. (Last Updated: 09/08/2020 08:39:23 EDT by JUVE GILBERT Rn-Clinical Coordinator I) EENT Assessment EENT Assessment WDL : WDCELIA ROSALES RN - 09/22/2020 11:06 EDT Cardiovascular ASMT, ED Cardiovascular Assessment WDL : WDL with exceptions Cardiovascular Symptoms : Dizziness at rest, Dyspnea at rest, Nausea at rest Nail Bed Color : Eldred Chest Pain : No CELIA ALBERT RN [...] EDT Gastrointestinal ED Gastrointestinal Assessment WDL : WDTre with exceptions Gastrointestinal Symptoms : Nausea CELIA ALBERT RN - 09/22/2020 11:06 EDT Genitourinary Assessment, ED Genitourinary Assessment WDL : CELIA SUN RN - 09/22/2020 11:06 EDT Musculoskeletal Musculoskeletal Assessment WDL : WDL with exceptions Musculoskeletal Assessment Comment : generalized weakness CELIA ALBERT RN - 09/22/2020 11:06 EDT Integumentary Assessment Skin Description : Normal for ethnicity Skin Temperature : Warm MARGARITA ALBERTMERA Gonzalez - 09/22/2020 11:06 EDT Neurologic ASMT, ED [...] Description 05/25/2025 10:45 AM EDT Office Visit [facility] - [address] [place] [address] Jalen Enciso MD [address] [place] [address] [place] [address] 06/23/2025 10:00 AM EDT Appointment [facility] - [address] [place] [address] Román White MD [address] [place] [address] documented as of this encounter Visit Diagnoses Not on filedocumented in this encounter Care Teams Regrind Mill Operator Relationship Specialty Start Date End Date Kaylene Brooke MD [address] [place] [address] PCP - General General Internal Medicine 01/27/22 Farooq Marcus MD [address] [place] [address] PCP - General Family Medicine 02/27/22 documented as of this encounter
--- OUTSIDE RECORDS SUMMARY | 2025-02-27 15:21 | XMS_ITS | Encounter Summary ---
Author Organization [employer] ([place], [place], [place], [place], [place]) Address [address] [place] [address] Care Team Providers Care Lithographic General Worker Name Role Phone Kaylene Brooke MD Primary Care Provider [phone] Farooq Marcus MD Primary Care Provider [phone] Encounter Details Date Type Department Care Team (Late st Contact Info) Description 10/09/2020 Transcribed Document [facility] [place] [address] [place] [address] ProviderRayray MD [address] [place] [address] [phone] Social History Tobacco Use Types Packs/Day Years [...] 10/09/2020 18:36 EDT Electronically signed by Nidia [facility] Conversion Bioinformatics Analyst Cerner at 06/29/2022 2:41 PM CDT documented in this encounter Plan of Treatment Upcoming Encounters Date Type Department Care Team (Late st Contact Info) Description 05/25/2025 10:45 AM EDT Office Visit [facility] - [address] [place] [address] Jalen Enciso MD [address] [place] [address] [place] [address] 06/23/2025 10:00 AM EDT Appointment [facility] - [address] [place] [address] Román White MD [address] [place] [address] documented as of this encounter Visit Diagnoses Not on filedocumented in this encounter Care Teams Lithographic General Worker Relationship Specialty Start Date End Date Kaylene Brooke MD [address] [place] [address] PCP - General General Internal Medicine 01/27/22 Farooq Marcus MD [address] [facility] [place] [address] PCP - General Family Medicine 02/27/22 documented as of this encounter
--- OUTSIDE RECORDS SUMMARY | 2025-02-27 15:21 | XMS_ITS | Encounter Summary ---
Author Organization [employer] ([place], [place], [place], [place], [place]) Address [address] [place] [address] Care Team Providers Care Hearth Feeder Name Role Phone Kaylene Brooke MD Primary Care Provider [phone] Farooq Marcus MD Primary Care Provider [phone] Encounter Details Date Type Department Care Team (Late st Contact Info) Description 09/22/2020 Transcribed Document [facility] [place] [address] [place] [address] ProviderRayray MD [address] [place] [address] [phone] Social History Tobacco Use Types Packs/Day Years [...] Description 05/25/2025 10:45 AM EDT Office Visit [facility] - [address] [place] [address] Jalen Enciso MD [address] [place] [address] 06/23/2025 10:00 AM EDT Appointment [facility] - [address] [place] [address] Román White MD [address] [place] [address] documented as of this encounter Visit Diagnoses Not on filedocumented in this encounter Care Teams Hearth Feeder Relationship Specialty Start Date End Date Kaylene Brooke MD [address] [place] [address] PCP - General General Internal Medicine 01/27/22 Farooq Marcus MD [address] [address] PCP - General Family Medicine 02/27/22 documented as of this encounter
--- OUTSIDE RECORDS SUMMARY | 2025-02-27 15:21 | XMS_ITS | Encounter Summary ---
Author Organization [employer] ([place], [place], [place], [place], [place]) Address [address] [place] [address] Care Team Providers Care Cap Sewer Name Role Phone Kaylene Brooke MD Primary Care Provider [phone] Farooq Marcus MD Primary Care Provider [phone] Encounter Details Date Type Department Care Team (Late st Contact Info) Description 09/22/2020 Transcribed Document [facility] [place] [address] [place] [address] ProviderRayray MD [address] [place] [address] [phone] Social History Tobacco Use Types Packs/Day Years [...] Description 05/25/2025 10:45 AM EDT Office Visit [facility] - [address] [place] [address] Jalen Enciso MD [address] [place] [address] [place] [address] 06/23/2025 10:00 AM EDT Appointment [facility] - [address] [place] [address] Román White MD [address] [place] [address] documented as of this encounter Visit Diagnoses Not on filedocumented in this encounter Care Teams Cap Sewer Relationship Specialty Start Date End Date Kaylene Brooke MD [address] [place] [address] PCP - General General Internal Medicine 01/27/22 Farooq Marcus MD [address] [place] [address] PCP - General Family Medicine 02/27/22 documented as of this encounter
--- OUTSIDE RECORDS SUMMARY | 2025-02-27 15:21 | XMS_ITS | Encounter Summary ---
Author Organization [employer] ([place], [place], [place], [place], [place]) Address [address] [place] [address] Care Team Providers Care Job Site Supervisor Name Role Phone Kaylene Brooke MD Primary Care Provider [phone] Farooq Marcus MD Primary Care Provider [phone] Encounter Details Date Type Department Care Team (Late st Contact Info) Description 09/22/2020 Transcribed Document [facility] [place] [address] [place] [address] ProviderRayray MD [address] [place] [address] Social History Tobacco Use Types Packs/Day Years [...] 09/23/2020 9:17 EDT Electronically signed by Nidia [facility] Conversion Pack Out Operator Cerner at 06/29/2022 2:35 PM CDT documented in this encounter Plan of Treatment Upcoming Encounters Date Type Department Care Team (Late st Contact Info) Description 05/25/2025 10:45 AM EDT Office Visit [facility] - [address] [place] [address] Jalen Enciso MD [address] [place] [address] 06/23/2025 10:00 AM EDT Appointment [facility] - [address] [place] [address] Román White MD [address] [place] [address] documented as of this encounter Visit Diagnoses Not on filedocumented in this encounter Care Teams Job Site Supervisor Relationship Specialty Start Date End Date Kaylene Brooke MD [address] [place] [address] PCP - General General Internal Medicine 01/27/22 Farooq Marcus MD [address] [place] [address] PCP - General Family Medicine 02/27/22 documented as of this encounter
--- OUTSIDE RECORDS SUMMARY | 2025-02-27 15:21 | XMS_ITS | Encounter Summary ---
Author Organization [employer] ([place], [place], [place], [place], [place]) Address [address] [place] [address] Care Team Providers Care Hot Walker Name Role Phone Kaylene Brooke MD Primary Care Provider [phone] Farooq Marcus MD Primary Care Provider [phone] Encounter Details Date Type Department Care Team (Late st Contact Info) Description 10/09/2020 Transcribed Document [facility] [place] [address] [place] [address] ProviderRayray MD [address] [place] [address] Social History Tobacco Use Types Packs/Day Years Used Date Smoking Tobacco: Never Assessed Sex and Gender Information Value Date Recorded Sex Assigned at Not on file Legal Sex Male 5:14 PM CDT Gender Identity Not on file Sexual Orientation Not on file documented as of this encounter Miscellaneous Notes * Cerner Conversion Note - Rayray San MD - 10/09/2020 4:34 PM CDT Consult Phone Call Documentation Entered On: 10/10/2020 9:11 EDT Performed On: 10/10/2020 8:00 EDT by Zaida Cortez RN Phone Call for Consults Consult Phone Call/Page Attempt : First call Provider Team Notified Name : Palliative medicine Date and Time Call Returned : 10/10/2020 9:10 EDT Physician Returning Call : AMBERYL BARBOSA APRN Noble, Maggie, RN - 10/10/2020 9:10 EDT documented in this encounter Plan of Treatment Upcoming Encounters Date Type Department Care Team (Late st Contact Info) Description 05/25/2025 10:45 AM EDT Office Visit [facility] - [address] [place] [address] Jalen Enciso MD [address] [place] [address] 06/23/2025 10:00 AM EDT Appointment [facility] - [address] [place] [address] Román White MD [address] [place] [address] documented as of this encounter Visit Diagnoses Not on filedocumented in this encounter Care Teams Hot Walker Relationship Specialty Start Date End Date Kaylene Brooke MD [address] [place] [address] PCP - General General Internal Medicine 01/27/22 Farooq Marcus MD [address] [place] [address] PCP - General Family Medicine 02/27/22 documented as of this encounter
--- OUTSIDE RECORDS SUMMARY | 2025-02-27 15:21 | XMS_ITS | Encounter Summary ---
Author Organization [employer] ([place], [place], [place], [place], [place]) Address [address] [place] [address] Care Team Providers Care Recycling Program Manager Name Role Phone Kaylene Brooke MD Primary Care Provider [phone] Farooq Marcus MD Primary Care Provider [phone] Encounter Details Date Type Department Care Team (Late st Contact Info) Description 10/09/2020 Transcribed Document [facility] [place] [address] [place] [address] ProviderRayray MD [address] [place] [address] Social History Tobacco Use Types Packs/Day Years [...] Description 05/25/2025 10:45 AM EDT Office Visit [facility] - [address] [place] [address] Jalen Enciso MD [address] [place] [place] [address] 06/23/2025 10:00 AM EDT Appointment [facility] - [address] [place] [address] Román White MD [address] [place] [address] documented as of this encounter Visit Diagnoses Not on filedocumented in this encounter Care Teams Recycling Program Manager Relationship Specialty Start Date End Date Kaylene Brooke MD [address] [place] [address] PCP - General General Internal Medicine 01/27/22 Farooq Marcus MD [address] [facility] [place] [address] PCP - General Family Medicine 02/27/22 documented as of this encounter
--- OUTSIDE RECORDS SUMMARY | 2025-02-27 15:21 | XMS_ITS | Encounter Summary ---
Author Organization [employer] ([place], [place], [place], [place], [place]) Address [address] [place] [address] Care Team Providers Care Post Splitter Name Role Phone Kaylene Brooke MD Primary Care Provider [phone] Farooq Marcus MD Primary Care Provider [phone] Encounter Details Date Type Department Care Team (Late st Contact Info) Description 09/22/2020 Transcribed Document [facility] [place] [address] [place] [address] ProviderRayray MD [address] [place] [address] [id number] Social History Tobacco Use Types Packs/Day Years [...] chemo earlier this month. Pt presented to [facility] 09/22 for abd pain with N/V. GI consulted, LFTs/pancreatitis likely due to medication/dehydration, LFTs improving. Visited pt, not in room at time of visit. Pt stated he had a good appetite prior to hospitalization, ate 2 meals/day + snacks. No issues chewing/swallowing reported. Pt stated UBW 185#, last known in May 2020 before chemo started, stated CBW 165# (but admit cn=274#). RD to reorder wt to confirm. NFPE [...] Esophageal cancer hx of chemo, CAD, HLD, [place], cholecystectomy Meds: aspirin, Colace, PPI, senna, abx, [...] Description 05/25/2025 10:45 AM EDT Office Visit [facility] - [address] [place] [address] Jalen Enciso MD [address] [place] [address] 06/23/2025 10:00 AM EDT Appointment [facility] - [address] [place] [address] Román White MD [address] [place] [address] documented as of this encounter Visit Diagnoses Not on filedocumented in this encounter Care Teams Post Splitter Relationship Specialty Start Date End Date Kaylene Brooke MD [address] [place] [address] PCP - General General Internal Medicine 01/27/22 Farooq Marcus MD [address] [place] [address] PCP - General Family Medicine 02/27/22 documented as of this encounter
--- OUTSIDE RECORDS SUMMARY | 2025-02-27 15:22 | XMS_ITS | Encounter Summary ---
Author Organization [employer] ([place], [place], [place], [place], [place]) Address [address] [place] [address] Care Team Providers Care Car Sales Representative Name Role Phone Kaylene Brooke MD Primary Care Provider [phone] Farooq Marcus MD Primary Care Provider [phone] Encounter Details Date Type Department Care Team (Late st Contact Info) Description 09/24/2020 Transcribed Document [facility] [place] [address] [place] [address] ProviderRayray MD [address] [place] [address] [id number] Social History Tobacco Use Types Packs/Day Years Used Date Smoking Tobacco: Never Assessed Sex and Gender Information Value Date Recorded Sex Assigned at Not on file Legal Sex Male 5:14 PM CDT Gender Identity Not on file Sexual Orientation Not on file documented as of this encounter Miscellaneous Notes * Cerner Conversion Note - Historical ProviderMD - 09/24/2020 9:34 AM CDT Patient: [...] (SEP 24) 28 (SEP 15) 28 (SEP 22) BUN 16 (SEP 24) 20 (SEP 15) 16 (SEP 22) Cr 1.10 (SEP 24) 1.10 (SEP 23) 1.30 (SEP 22) Glu R 81 (SEP 24) 99 (SEP 23) H 120 (SEP 22) Ca L 8.0 (SEP 24) L 7.5 (SEP 15) 9.0 (SEP 22) Lactic C 2.8 (SEP [...] L 5.7 (SEP 24) L 5.0 (SEP 15) 6.6 (SEP 22) ALB L 2.3 (SEP [...] Thank you for this consult, Mike Godfrey [facility] Virginia Goldman, BarbraD Electronically signed by [facility] Conversion [employer] Open Stack Administrator Cerner at 06/29/2022 2:18 PM CDT documented in this encounter Plan of Treatment Upcoming Encounters Date Type Department Care Team (Late st Contact Info) Description 05/25/2025 10:45 AM EDT Office Visit [facility] - [address] [place] [address] Jalen Enciso MD [address] [place] [address] 06/23/2025 10:00 AM EDT Appointment [facility] - [address] [place] [address] Román White MD [address] [place] [address] documented as of this encounter Visit Diagnoses Not on filedocumented in this encounter Care Teams Car Sales Representative Relationship Specialty Start Date End Date Kaylene Brooke MD [address] [place] [address] PCP - General General Internal Medicine 01/27/22 Farooq Marcus MD [address] [place] [address] PCP - General Family Medicine 02/27/22 documented as of this encounter
--- OUTSIDE RECORDS SUMMARY | 2025-02-27 15:22 | XMS_ITS | Encounter Summary ---
Author Organization [employer] ([place], [place], [place], [place], [place]) Address [address] [place] [address] Care Team Providers Care Hat Body Inspector Name Role Phone Kaylene Brooke MD Primary Care Provider [phone] Farooq Marcus MD Primary Care Provider [phone] Encounter Details Date Type Department Care Team (Late st Contact Info) Description 09/24/2020 Transcribed Document [facility] [place] [address] [place] [address] ProviderRayray MD [address] [place] [address] 433731 Social History Tobacco Use Types Packs/Day Years [...] 0.9% 250 mL 1,250 mg, IV Piggyback, [id number] Continuous: (1) NaCl 0.9% 1,000 mL 1,000 [...] Description 05/25/2025 10:45 AM EDT Office Visit [facility] - [address] [facility] [address] [place] [address] Jalen Enciso MD [address] [place] [place] [address] 06/23/2025 10:00 AM EDT Appointment [facility] - [address] [place] [address] Román White MD [address] [place] [address] documented as of this encounter Visit Diagnoses Not on filedocumented in this encounter Care Teams Hat Body Inspector Relationship Specialty Start Date End Date MendyKaylene dunn MD [address] [place] [address] PCP - General General Internal Medicine 01/27/22 Farooq Marcus MD [address] [place] [address] PCP - General Family Medicine 02/27/22 documented as of this encounter
--- OUTSIDE RECORDS SUMMARY | 2025-02-27 15:22 | XMS_ITS | Encounter Summary ---
Author Organization [employer] ([place], [place], [place], [place], [place]) Address [address] [place] [address] Care Team Providers Care Errand Runner Name Role Phone Kaylene Brooke MD Primary Care Provider [phone] Farooq Marcus MD Primary Care Provider [phone] Encounter Details Date Type Department Care Team (Late st Contact Info) Description 09/23/2020 Transcribed Document [facility] [place] [address] [place] [address] ProviderRayray MD [address] [place] [address] Social History Tobacco Use Types Packs/Day Years [...] Insurance 1 Health Plan: MEDICARE Policy Number: [id number] Authorization Number: Insurance 2 Health Plan: [employer] Medicare Supplement Policy Number: [id number] Authorization Number: Insurance Primary Name : MEDICARE Policy Number: [id number] [employer] Medicare Supplement Policy Number: [id number] Historical Authorization Comments-Primary : No Authorization Comments Found TERESA GUZMÁN, Rn-Utilization Review - 09/23/2020 10:54 EDT documented in this encounter Plan of Treatment Upcoming Encounters Date Type Department Care Team (Late st Contact Info) Description 05/25/2025 10:45 AM EDT Office Visit [facility] - [address] [place] [address] Jalen Enciso MD [address] [place] [address] 06/23/2025 10:00 AM EDT Appointment [facility] - [address] [place] [address] Román White MD [address] [place] [address] documented as of this encounter Visit Diagnoses Not on filedocumented in this encounter Care Teams Errand Runner Relationship Specialty Start Date End Date Kaylene Brooke MD [address] [place] [address] PCP - General General Internal Medicine 01/27/22 Farooq Marcus MD [address] [place] [address] PCP - General Family Medicine 02/27/22 documented as of this encounter
--- OUTSIDE RECORDS SUMMARY | 2025-02-27 15:22 | XMS_ITS | Encounter Summary ---
Author Organization [employer] ([place], [place], [place], [place], [place]) Address [address] [place] [address] Care Team Providers Care Consulting Intern Name Role Phone Kaylene Brooke MD Primary Care Provider [phone] Farooq Marcus MD Primary Care Provider [phone] Encounter Details Date Type Department Care Team (Late st Contact Info) Description 09/24/2020 Transcribed Document [address] [address] Janell Marx MD [address] [place] [address] Social History Tobacco Use Types Packs/Day Years Used Date Smoking Tobacco: Never Assessed Sex and Gender Information Value Date Recorded Sex Assigned at Not on file Legal Sex Male 5:14 PM CDT Gender Identity Not on file Sexual Orientation Not on file documented as of this encounter Miscellaneous Notes * Cerner Conversion Note - Janell Marx MD - 09/24/2020 10:35 AM EDT Patient: RANCHO DEL ANGEL Age: [...] were sent to us from his previous security systems sales representative including his left heart catheterization that he [...] mL: 1,250 mg, 250 mL/Hr, IV Piggyback, [id number] Documented Medications Documented Brilinta (ticagrelor) 90 mg [...] 0.9% 250 mL 1,250 mg, IV Piggyback, [id number] Continuous: (1) NaCl 0.9% 1,000 mL 1,000 [...] All Problems Anxiety disorder / SNOMED CT 705575298 / Confirmed At risk for sleep apnea / IMO 83348126 / Confirmed Chest pain with high risk for cardiac etiology / SNOMED CT 73328899 / Confirmed Hyperlipidemia / SNOMED CT 77825797 / Confirmed Esophagus cancer / SNOMED CT 658839560 / Confirmed Myocardial infarction / SNOMED CT 83577359 / Confirmed 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 Troponin now trending down. We'll check an echocardiogram for ejection fraction. Will obtain records from. documented in this encounter Plan of Treatment Upcoming Encounters Date Type Department Care Team (Late st Contact Info) Description 05/25/2025 10:45 AM EDT Office Visit [facility] - [address] [place] [address] Jalen Enciso MD [address] [place] [address] [place] [address] 06/23/2025 10:00 AM EDT Appointment [facility] - [address] [place] [address] Román White MD [address] [place] [address] documented as of this encounter Visit Diagnoses Not on filedocumented in this encounter Care Teams Consulting Intern Relationship Specialty Start Date End Date Kaylene Brooke MD [address] [place] [address] PCP - General General Internal Medicine 01/27/22 Farooq Marcus MD [address] [facility] [place] [address] PCP - General Family Medicine 02/27/22 documented as of this encounter
--- OUTSIDE RECORDS SUMMARY | 2025-02-27 15:22 | XMS_ITS | Encounter Summary ---
Author Organization [employer] ([place], [place], [place], [place], [place]) Address [address] [place] [address] Care Team Providers Care Joinery Factory Worker Name Role Phone Kaylene Brooke MD Primary Care Provider [phone] Farooq Marcus MD Primary Care Provider [phone] Encounter Details Date Type Department Care Team (Late st Contact Info) Description 10/13/2020 Transcribed Document [facility] [place] [address] [place] [address] ProviderRayray MD [address] [place] [address] Social History Tobacco Use Types Packs/Day Years [...] On: 10/13/2020 11:09 EDT by Prachi Jesus, Electric Car Operator Patient Resource Center Provider Status : EST Other Established Provider Name : MAZIN SHERIDAN Patient Phone Number : [phone] Patient Insurance Type : Medicare Source of Referral : Case management Location of Patient : Case management referral Primary Care Scheduled : Yes Primary Care Scheduled Type : Non CMG Primary Care Provider Name : MAZIN QUIROGAES Primary Care Appointment Date/Time : 10/20/2020 10:30 [...] at ED : Other Primary Language : Pakistani Patient Resource Center Comment : Patient needs follow up appointments. Called offices and scheduled appointments with Dr. Enciso and Dr. Sheridan. Follow Up Needed : No Prachi Jesus, Electric Car Operator - 10/13/2020 11:09 EDT Electronically signed by [facility], [facility] Conversion Gate Services Supervisor Cerner at 06/29/2022 2:17 PM CDT documented in this encounter Plan of Treatment Upcoming Encounters Date Type Department Care Team (Late st Contact Info) Description 05/25/2025 10:45 AM EDT Office Visit [facility] - [address] [place] [address] Jalen Enciso MD [address] [place] [address] 06/23/2025 10:00 AM EDT Appointment [facility] - [address] [place] [address] Román White MD [address] [place] [address] documented as of this encounter Visit Diagnoses Not on filedocumented in this encounter Care Teams Joinery Factory Worker Relationship Specialty Start Date End Date Kaylene Brooke MD [address] [place] [address] PCP - General General Internal Medicine 01/27/22 Farooq Marcus MD [address] [place] [address] PCP - General Family Medicine 02/27/22 documented as of this encounter
--- OUTSIDE RECORDS SUMMARY | 2025-02-27 15:22 | XMS_ITS | Encounter Summary ---
Author Organization [employer] ([place], [place], [place], [place], [place]) Address [address] [place] [address] Care Team Providers Care Vice President Research Name Role Phone Kaylene Brooke MD Primary Care Provider [phone] Farooq Marcus MD Primary Care Provider [phone] Encounter Details Date Type Department Care Team (Late Contact Info) Description 10/12/2020 Transcribed Document [facility] [place] Medicine [address] [place] [address] ProviderRayray MD [address] [place] [address] 276721 Social History Tobacco Use Types Packs/Day Years [...] - 10/12/2020 5:51 EDT Electronically signed by Nidia [facility] Conversion Newsstand Vendor Cerner at 06/29/2022 2:41 PM CDT documented in this encounter Plan of Treatment Upcoming Encounters Date Type Department Care Team (Late st Contact Info) Description 05/25/2025 10:45 AM EDT Office Visit [facility] - [address] [place] [address] Jalen Enciso MD [address] [place] [address] 06/23/2025 10:00 AM EDT Appointment [facility] - [address] [place] [address] Román White MD [address] [place] [address] documented as of this encounter Visit Diagnoses Not on filedocumented in this encounter Care Teams Vice President Research Relationship Specialty Start Date End Date MendyKaylene dunn MD [address] [place] [address] PCP - General General Internal Medicine 01/27/22 Farooq Marcus MD [address] [facility] [place] [address] PCP - General Family Medicine 02/27/22 documented as of this encounter
--- OUTSIDE RECORDS SUMMARY | 2025-02-27 15:22 | XMS_ITS | Encounter Summary ---
Author Organization [employer] ([place], [place], [place], [place], [place]) Address [address] [place] [address] Care Team Providers Care Training And Development Head Name Role Phone Kaylene Brooke MD Primary Care Provider [phone] Farooq Marcus MD Primary Care Provider [phone] Encounter Details Date Type Department Care Team (Late Contact Info) Description 10/11/2020 Transcribed Document [facility] [place] [address] [place] [address] ProviderRayray MD [address] [place] [address] 429451 Social History Tobacco Use Types Packs/Day Years [...] 10/11/2020 16:55 EDT Electronically signed by Nidia [facility] Conversion Staff Development Educator Cerner at 06/29/2022 2:26 PM CDT documented in this encounter Plan of Treatment Upcoming Encounters Date Type Department Care Team (Late Contact Info) Description 05/25/2025 10:45 AM EDT Office Visit [facility] - [address] [place] [address] Jalen Enciso MD [address] [place] [address] 06/23/2025 10:00 AM EDT Appointment [facility] - [address] [place] [address] Román White MD [address] [place] [address] documented as of this encounter Visit Diagnoses Not on filedocumented in this encounter Care Teams Training And Development Head Relationship Specialty Start Date End Date MendyKaylene dunn MD [address] [place] [address] PCP - General General Internal Medicine 01/27/22 Farooq Marcus MD [address] [facility] [place] [address] PCP - General Family Medicine 02/27/22 documented as of this encounter
--- OUTSIDE RECORDS SUMMARY | 2025-02-27 15:22 | XMS_ITS | Encounter Summary ---
Author Organization [employer] ([place], [place], [place], [place], [place]) Address [address] [place] [address] Care Team Providers Care Teacher Music Name Role Phone Kaylene Brooke MD Primary Care Provider [phone] Farooq Marcus MD Primary Care Provider [phone] Encounter Details Date Type Department Care Team (Late st Contact Info) Description 10/11/2020 Transcribed Document [facility] [place] [address] [place] [address] ProviderRayray MD [address] [place] [address] [phone] Social History Tobacco Use Types Packs/Day Years Used Date Smoking Tobacco: Never Assessed Sex and Gender Information Value Date Recorded Sex Assigned at Not on file Legal Sex Male 5:14 PM CDT Gender Identity Not on file Sexual Orientation Not on file documented as of this encounter Miscellaneous Notes * Jocel[employer] Conversion Note - aRyray ProviderMD - 10/11/2020 2:00 AM CDT Geological Science Teacher Details Entered On: 10/11/2020 2:55 EDT Performed [...] Elidia Marie Lpn - 10/11/2020 2:55 EDT Electronically signed by Nidia [facility] Conversion Top Executive Cerner at 06/29/2022 2:26 PM CDT documented in this encounter Plan of Treatment Upcoming Encounters Date Type Department Care Team (Late st Contact Info) Description 05/25/2025 10:45 AM EDT Office Visit [facility] - [address] [place] [address] Jalen Enciso MD [address] [place] [address] 06/23/2025 10:00 AM EDT Appointment [facility] - [address] [place] [address] Román White MD [address] [place] [address] documented as of this encounter Visit Diagnoses Not on filedocumented in this encounter Care Teams Teacher Music Relationship Specialty Start Date End Date Kaylene Brooke MD [address] [place] [address] PCP - General General Internal Medicine 01/27/22 Farooq Marcus MD [address] [place] [place] [address] PCP - General Family Medicine 02/27/22 documented as of this encounter
--- OUTSIDE RECORDS SUMMARY | 2025-02-27 15:22 | XMS_ITS | Encounter Summary ---
Author Organization [employer] ([place], [place], [place], [place], [place]) Address [address] [place] [address] Care Team Providers Care Legal Office Administrator Name Role Phone Kaylene Brooke MD Primary Care Provider [phone] Farooq Marcus MD Primary Care Provider [phone] Encounter Details Date Type Department Care Team (Late st Contact Info) Description 09/23/2020 Transcribed Document [facility] [place] [facility] [place] [address] ProviderRayrya MD [address] [place] [address] Social History Tobacco Use Types Packs/Day Years [...] On: 09/23/2020 13:26 EDT by KATHRIN CODY Employee Relations Advisor Initial Assessment I Previously Documented Living Environment : No qualifying data available. Living Situation : Home Patient Lives With : Spouse Is the Patient a Caregiver at Home? : No Emergency Contact #1 : JAMIE Emergency Contact #1 Phone Number : [phone] Emergency Contact #1 Relationship : SPOUSE Emergency Contact #2 : ADIEL Emergency Contact #2 Phone Number : [phone] Emergency Contact #2 Relationship : SON Enter Doctors Name : Adiel Michelle Does Patient have PCP Listed? : Yes Medical Durable Power of Biomedical Scientist Name : No Legal Guardian : No [...] prior to admission resided with spouse, in [facility]. Admitted via ED with sepsis/pancreatits/NSTEMI: oncology/GI and cardiology consulted. Currently on 2 liters O2, clear liquid diet, Olgphc=3225, bilirubin=1.9, GVO=116, POY=342, Lactic=2.8, Trop=0.272, HH=8.2/26.3, CT Abd/pelvis=Small pleural effusions [...] EDT Electronically signed by Malina Jacob Conversion Endless Track Vehicle Mechanic Cerner at 06/29/2022 2:26 PM CDT documented in this encounter Plan of Treatment Upcoming Encounters Date Type Department Care Team (Late st Contact Info) Description 05/25/2025 10:45 AM EDT Office Visit [facility] - [address] [place] [address] Jalen Enciso MD [address] [place] [address] [place] [address] 06/23/2025 10:00 AM EDT Appointment [facility] - [address] [place] [address] Román White MD [address] [place] [address] documented as of this encounter Visit Diagnoses Not on filedocumented in this encounter Care Teams Legal Office Administrator Relationship Specialty Start Date End Date Kaylene Brooke MD [address] [place] [address] PCP - General General Internal Medicine 01/27/22 Farooq Marcus MD [address] [place] [address] PCP - General Family Medicine 02/27/22 documented as of this encounter
--- OUTSIDE RECORDS SUMMARY | 2025-02-27 15:22 | XMS_ITS | Encounter Summary ---
Author Organization [employer] ([place], [place], [place], [place], [place]) Address [address] [place] [address] Care Team Providers Care Director Advertising Name Role Phone Kaylene Brooke MD Primary Care Provider [phone] Farooq Marcus MD Primary Care Provider [phone] Encounter Details Date Type Department Care Team (Late st Contact Info) Description 10/12/2020 Transcribed Document [facility] [place] [address] [place] [address] ProviderRayray MD [address] [place] [address]451 Social History Tobacco Use Types Packs/Day Years Used Date Smoking Tobacco: Never Assessed Sex and Gender Information Value Date Recorded Sex Assigned at Not on file Legal Sex Male 5:14 PM CDT Gender Identity Not on file Sexual Orientation Not on file documented as of this encounter Miscellaneous Notes * Cerner Conversion Note - Historical ProviderMD - 10/12/2020 2:00 AM CDT Grape Picker Details Entered On: 10/12/2020 1:13 EDT Performed [...] Elidia Marie Lpn - 10/12/2020 1:13 EDT Electronically signed by Nidia [facility] Conversion Fractionating Still Operator Cerner at 06/29/2022 2:36 PM CDT documented in this encounter Plan of Treatment Upcoming Encounters Date Type Department Care Team (Late st Contact Info) Description 05/25/2025 10:45 AM EDT Office Visit [facility] - [address] [place] [address] Jalen Enciso MD [address] [place] [address] 06/23/2025 10:00 AM EDT Appointment [facility] - [address] [place] [address] Román White MD [address] [place] [address] documented as of this encounter Visit Diagnoses Not on filedocumented in this encounter Care Teams Director Advertising Relationship Specialty Start Date End Date Kaylene Brooke MD [address] [place] [address] PCP - General General Internal Medicine 01/27/22 Farooq Marcus MD [address] [place] [place] [address] PCP - General Family Medicine 02/27/22 documented as of this encounter
--- OUTSIDE RECORDS SUMMARY | 2025-02-27 15:22 | XMS_ITS | Encounter Summary ---
Author Organization [employer] ([place], [place], [place], [place], [place]) Address [address] [place] [address] Care Team Providers Care Enrollment Coordinator Name Role Phone Kaylene Brooke MD Primary Care Provider [phone] Farooq Marcus MD Primary Care Provider [phone] Encounter Details Date Type Department Care Team (Late st Contact Info) Description 09/23/2020 Transcribed Document [facility] [place] [address] [place] [address] ProviderRayray MD [address] [place] [address] 938651 Social History Tobacco Use Types Packs/Day Years Used Date Smoking Tobacco: Never Assessed Sex and Gender Information Value Date Recorded Sex Assigned at Not on file Legal Sex Male 5:14 PM CDT Gender Identity Not on file Sexual Orientation Not on file documented as of this encounter Miscellaneous Notes * Cerner Conversion Note - Historical MD Jaswinder - 09/23/2020 9:12 AM CDT Patient: RANCHO [...] significant for Esophageal CA, HLD, pacemaker and VA. He reports he received chemo last week [...] Information Primary Care Physician - MAZIN SHERIDAN MD-[facility] Attending Physician - CRISTINA LUNDBERG DO [...] ALYC # 0 K/uL 09/22/2020 10:13 EDT [place] Percent Man 1 % (Low) 09/22/2020 10:13 EDT [place] Percent Man 0 % 09/22/2020 10:13 EDT [place] Percent Man 0 % 09/22/2020 10:13 EDT [place] Percent Man 1 % 09/22/2020 10:13 EDT [...] Appearance CLEAR2 09/22/2020 11:25 EDT Urine Specific [place] 1.016 09/22/2020 11:25 EDT Urine pH Dipstick [...] Description 05/25/2025 10:45 AM EDT Office Visit [facility] - [address] [place] [address] Jalen Enciso MD [address] [place] [address] [place] [address] 06/23/2025 10:00 AM EDT Appointment [facility] - [address] [place] [address] Román White MD [address] [place] [address] documented as of this encounter Visit Diagnoses Not on filedocumented in this encounter Care Teams Enrollment Coordinator Relationship Specialty Start Date End Date Kaylene Brooke MD [address] [place] [address] PCP - General General Internal Medicine 01/27/22 Farooq Marcus MD [address] [address] PCP - General Family Medicine 02/27/22 documented as of this encounter
--- OUTSIDE RECORDS SUMMARY | 2025-02-27 15:22 | XMS_ITS | Encounter Summary ---
Author Organization [employer] ([place], [place], [place], [place], [place]) Address [address] [place] [address] Care Team Providers Care Office 365 Consultant Name Role Phone Kaylene Brooke MD Primary Care Provider [phone] Farooq Marcus MD Primary Care Provider Encounter Details Date Type Department Care Team (Late st Contact Info) Description 10/11/2020 Transcribed Document [facility] [place] [address] [place] [address] ProviderRayray MD [address] [place] [address] [phone] Social History Tobacco Use Types Packs/Day Years Used Date Smoking Tobacco: Never Assessed Sex and Gender Information Value Date Recorded Sex Assigned at Not on file Legal Sex Male 5:14 PM CDT Gender Identity Not on file Sexual Orientation Not on file documented as of this encounter Miscellaneous Notes * Cerner Conversion Note - Rayray San MD - 10/11/2020 6:52 PM CDT Patient: RANCHO DEL ANGEL Age: [...] LOW 10/11/2020 06:13 Alk Phos 152 Units/Liter [place] 10/10/2020 06:37 ALT 24 Units/Liter 10/10/2020 06:37 AST 24 Units/Liter 10/10/2020 06:37 Blood Urea Nitrogen 7 mg/dL 10/11/2020 06:13 Glucose Level 85 mg/dL 10/11/2020 06:13 Albumin Level 2.4 Gram/dL LOW 10/10/2020 06:37 Bilirubin Total 1.4 mg/dL [place] 10/10/2020 06:37 Calcium Level 8.8 mg/dL 10/11/2020 [...] Diagnostic Results Radiology Results (Last 48 hours) [id number] -- 10/10/2020 10:58 CT Head WO W [...] Laws MD Electronically signed by Nidia [facility] Conversion Welt Insole Channeler Cerner at 06/29/2022 2:32 PM CDT documented in this encounter Plan of Treatment Upcoming Encounters Date Type Department Care Team (Late st Contact Info) Description 05/25/2025 10:45 AM EDT Office Visit [facility] - [address] [place] [address] Jalen Enciso MD [address] [place] [address] 06/23/2025 10:00 AM EDT Appointment [facility] - [address] [place] [address] Román White MD [address] [place] [address] documented as of this encounter Visit Diagnoses Not on filedocumented in this encounter Care Teams Office 365 Consultant Relationship Specialty Start Date End Date Kaylene Brooke MD [address] [place] [address] PCP - General General Internal Medicine 01/27/22 Farooq Marcus MD [address] [address] PCP - General Family Medicine 02/27/22 documented as of this encounter
--- OUTSIDE RECORDS SUMMARY | 2025-02-27 15:22 | XMS_ITS | Encounter Summary ---
Author Organization [employer] ([place], [place], [place], [place], [place]) Address [address] [place] [address] Care Team Providers Care Towel Rolling Machine Operator Name Role Phone Kaylene Brooke MD Primary Care Provider [phone] Farooq Marcus MD Primary Care Provider [phone] Encounter Details Date Type Department Care Team (Late st Contact Info) Description 10/12/2020 Transcribed Document [facility] [place] [address] [place] [address] ProviderRayray MD [address] [place] [address] [id number] Social History Tobacco Use Types Packs/Day Years Used Date Smoking Tobacco: Never Assessed Sex and Gender Information Value Date Recorded Sex Assigned at Not on file Legal Sex Male 5:14 PM CDT Gender Identity Not on file Sexual Orientation Not on file documented as of this encounter Miscellaneous Notes * Cerner Conversion Note - Historical ProviderMD - 10/12/2020 8:09 AM CDT [facility] Endo IntraOp Summary Primary Physician: NATE KINNEY MD Finalized Date/Time: 10/12/20 08:16:28 Pt. Name: RANCHO DEL ANGEL Jesse Leal/Sex: 1935 Male Med Rec #: [id number] Physician: PARKER RAVI MD-INT Financial #: [id number] Pt. Type: I Room/Bed: [facility]/1 Admit/Disch: 10/10/20 10:58:00 - Institution: [facility] Endo - Case Attendance Entry 1 Entry 2 Entry 3 Case Attendee NATE KINNEY MD Walker, Mary B, MIKKI Dowling Role Performed Surgeon/Proceduralist, Commissioner Of Conciliation, First Scrub, First First Time In 10/12/20 [...] LOPEZ CRNA BURBERRY, KEITH, MD-ANS Role Performed OFF PREMISE SERVICE REPRESENTATIVE/Nurse Outside Plant Supervisor Anesthesiologist of Record Time In 10/12/20 08:00:00 10/12/20 08:00:00 Time Out 10/12/20 08:16:00 10/12/20 08:16:00 Procedure Esophagogastroduodenosco Esophagogastroduodenosco py, Gastric Biopsy py, Gastric Biopsy Other Attendee Superficial Wound Closed By: Last Modified By: Mari Holly Rn Walker, Mary B, Rn 10/12/20 08:15:02 10/12/20 08:15:02 [facility] Endo - Case Attendance Audit 10/12/20 08:15:02 Food And Beverage Attendant: [id number] Modifier: [id number] <+> Time Out 1 <*> Procedure Esophagogastroduodenoscopy, Gastric Biopsy 2 <+> Time Out 2 <*> Procedure Esophagogastroduodenoscopy, Gastric Biopsy 3 <+> Time Out 3 <*> Procedure Esophagogastroduodenoscopy, Gastric Biopsy 4 <+> Time Out 4 <*> Procedure Esophagogastroduodenoscopy, Gastric Biopsy 5 <+> Time Out 5 <*> Procedure Esophagogastroduodenoscopy, Gastric Biopsy 10/12/20 08:12:37 Food And Beverage Attendant: [id number] Modifier: [id number] 1 <*> Procedure Esophagogastroduodenoscopy 2 <*> Procedure Esophagogastroduodenoscopy 3 <*> Procedure Esophagogastroduodenoscopy 4 <*> Procedure Esophagogastroduodenoscopy 5 <*> Procedure Esophagogastroduodenoscopy 10/12/20 08:05:35 Food And Beverage Attendant: [id number] Modifier: [id number] <+> Time In 1 <*> Procedure Esophagogastroduodenoscopy 2 <+> Time In 2 <*> Procedure Esophagogastroduodenoscopy 3 <+> Time In 3 <*> Procedure Esophagogastroduodenoscopy 4 <+> Time In 4 <*> Procedure Esophagogastroduodenoscopy 5 <+> Time In 5 <*> Procedure Esophagogastroduodenoscopy 10/12/20 08:02:15 Food And Beverage Attendant: [id number] Modifier: [id number] <+> 5 Case Attendee <+> 5 Role Performed <+> 5 Procedure 10/12/20 07:57:26 Food And Beverage Attendant: [id number] Modifier: [id number] <+> 2 Case Attendee <+> 2 Role Performed <+> 2 Procedure <+> 3 Case Attendee <+> 3 Role Performed <+> 3 Procedure <+> 4 Case Attendee <+> 4 Role Performed <+> 4 Procedure [facility] Endo - Case times Entry 1 Patient In Room Time 10/12/20 08:00:00 Out Room Time 10/12/20 08:16:00 Anesthesia Start Time 10/12/20 08:00:00 Stop Time 10/12/20 08:16:00 Surgery / Procedure Times Start Time 10/12/20 08:09:00 Stop Time 10/12/20 08:14:00 Last Modified By: Mari Holly Rn 10/12/20 08:14:36 [facility] Endo - Case times Audit 10/12/20 08:14:36 Food And Beverage Attendant: [id number] Modifier: [id number] <+> 1 Out Room Time <+> 1 Stop Time <+> 1 Stop Time 10/12/20 08:09:07 Food And Beverage Attendant: [id number] Modifier: [id number] <+> 1 Start Time [facility] Endo - Cultures and Spec Summary Entry 1 Cultrures and Specimens Specimen Ordered: Yes Test(s) Routine/Path-Lab Requested/Final Disposition Last Modified By: Mari Holly Rn 10/12/20 08:13:55 [facility] Endo - Delays Entry 1 Delay Reason Other Duration 0 Minute(s) Last Modified By: Mari Holly Rn 10/12/20 08:02:27 [facility] Endo - Departure from OR Entry 1 Integumentary Assessment Integumentary WDL Assessment WDL Transfer/Handoff Transfer to PACU Phase I Post-op Transport Stretcher/Gurney Via Patient Transport Mari Holly, Rn, Accompanied by DELMER LOPEZ CRNA Last Modified By: Mari Holly, Marty 10/12/20 08:02:33 [facility] Endo - Endoscopy Details Entry 1 Abdomen Procedure Soft, Non-Tender Assessment Procedure Abdomen 10/12/20 08:00:00 Assessment D/T Radio Frequency Ablation Abdominal Pressure Last Modified By: Mari Holly Rn 10/12/20 08:02:48 [facility] Endo - Fire Risk Assessment Entry 1 Fire Info Surgical Site or 1- Yes Incision Above the Xyphoid Open O2 Source 1- Yes (Mask or Cannula) Available Ignition 1- Yes (ESU, Laser, Light Source) Fire Risk 3 Assessment Score Fire Score Fire Risk Yes Assessment Complete Fire Risk Mari Holly, Gis Software Developer Verified By Fire Risk 10/12/20 08:00:00 Assessment Verified Date/Time Fire Risk High Risk Protocol Yes Implemented Standard Fire Yes Safety Precautions Followed Last Modified By: Mari Holly Rn 10/12/20 08:03:28 [facility] Endo - General Case Senior Credit Analyst 1 Case Information OR Endo 03 [facility] Case Level 1 Room Verified Yes Wound Class II - Clean-Contaminated Specialty Gastroenterology Anesthesia Type MAC ASA Class 4 Diagnosis Preop Diagnosis nausea and vomiting Postop Same As Preop No Postop Diagnosis hiatal hernia, gastric erythema Last Modified By: Mari Holly Rn 10/12/20 08:05:26 [facility] Endo - General Case Data Audit 10/12/20 08:13:36 Food And Beverage Attendant: [id number] Modifier: [id number] 1 <*> Postop Diagnosis hiatal hernia 10/12/20 08:10:39 Food And Beverage Attendant: [id number] Modifier: [id number] <+> 1 Postop Diagnosis 10/12/20 08:08:21 Food And Beverage Attendant: [id number] Modifier: [id number] 1 <+> Postop Same As Preop 1 <*> Preop Diagnosis nausea 10/12/20 08:08:05 Food And Beverage Attendant: [id number] Modifier: [id number] <+> 1 Preop Diagnosis 10/12/20 08:05:26 Food And Beverage Attendant: [id number] Modifier: [id number] <+> 1 ASA Class 10/12/20 08:03:22 Food And Beverage Attendant: [id number] Modifier: [id number] 1 <-> Preop Diagnosis R63.0/R11.2 [facility] Endo - Intraoperative Assessment Entry 1 Valid History / Yes Physical in Chart Preoperative Yes Checklist Reviewed/Evaluated Patient is Latex No Sensitive Level of WDL Consciousness (WDL = Alert, Oriented to Person, Place, and Time) Last Modified By: Mari Holly Rn 10/12/20 08:04:06 [facility] Endo - Intraoperative Equipment Entry 1 Equipment Intraop Monitoring Electrocardiogram Three lead placement (ECG) Electrode Placement Blood Pressure Arm, left upper Location Pulse Oximeter Hand, right Probe Site Antiembolic Devices Scopes Flexible Endoscopes Gastroscope Used Scope Serial K Number/Identificatio n Number Photo/Video Documentation Photo Yes Video No Last Modified By: Mari Holly Rn 10/12/20 07:57:53 [facility] Endo - Patient Positioning Entry 1 Procedure Esophagogastroduodenosco py, Gastric Biopsy Body Position Lateral, right side up Left Arm Position Resting at side Right Arm Position Resting at side Left Leg Position Other Right Leg Position Other Position Comments Right leg over left leg, uncrossed Feet Uncrossed Yes Pressure Points Yes Checked Positioned By Mari Holly Rn Position Verified Positioning Yes Verified by Surgeon Last Modified By: Mari Holly Rn 10/12/20 08:04:04 [facility] Endo - Patient Positioning Audit 10/12/20 08:12:38 Food And Beverage Attendant: [id number] Modifier: [id number] 1 <*> Procedure Esophagogastroduodenoscopy [facility] Endo - Sign In Entry 1 Patient, Site, Yes Procedure Identified Surgical Consent Yes Confirmed Relevant Surgical Yes Documents Available Surgical Site N/A Marked by person performing procedure Airway Hypothermia Risk No Warming Measures No Taken Last Modified By: Mari Holly Rn 10/12/20 07:57:39 [facility] Endo - Sign Out Entry 1 RN Confirmation Surgical Yes Procedure(s) Identified Instrument, Sponge N/A and Sharps Counts Correct/Documented Equipment Problems N/A Documented Specimen Labeled Yes Correctly Urinary Catheter N/A Documented in IView Safety Checklist Yes Elements Complete? RN Sign Out Mari Holly, Rn Signature RN Sign Out 10/12/20 08:16:00 [...] By: Mari Holly Rn 10/12/20 08:14:51 [facility] Endo - Surgical Procedures Entry 1 Entry 2 Procedure Esophagogastroduodenosco Gastric Biopsy py Modifiers Additional Procedure Description Primary Procedure Yes No Primary Surgeon NATE KINNEY MD ASLAM, BILAL, MD Start 10/12/20 08:09:00 10/12/20 08:09:00 Stop 10/12/20 08:14:00 10/12/20 08:14:00 Physician States Cecum Reached Anesthesia Type MAC [facility] Specialty Gastroenterology Gastroenterology Wound Class II - Clean-Contaminated II - Clean-Contaminated Last Modified By: Mari Holly Rn Walker, Mary B, Rn 10/12/20 07:57:32 10/12/20 08:12:35 [facility] Endo - Surgical Procedures Audit 10/12/20 08:14:56 Food And Beverage Attendant: [id number] Modifier: [id number] <+> 1 Stop <+> 2 Stop 10/12/20 08:12:35 Food And Beverage Attendant: [id number] Modifier: [id number] <+> 1 Start <+> 2 Procedure <+> 2 Primary Procedure <+> 2 Primary Surgeon <+> 2 Specialty <+> 2 Start <+> 2 Wound Class <+> 2 Anesthesia Type [facility] Endo - Time Out Entry 1 [...] By: Mari Holly Rn 10/12/20 08:12:38 [facility] Endo - Time Out Audit 10/12/20 08:12:38 Food And Beverage Attendant: [id number] Modifier: [id number] 1 <*> Procedure to be Performed Esophagogastroduodenoscopy 10/12/20 08:07:28 Food And Beverage Attendant: [id number] Modifier: [id number] 1 <*> Time Out Pause Time 10/12/20 08:03:00 1 <*> Procedure to be Performed Esophagogastroduodenoscopy Case Comments <None> Finalized By: Mari Holly, Rn Document Signatures Signed By: Mari Holly Rn 10/12/20 08:16 Electronically signed by Nidia [facility] Conversion Foreman/Pile Driving And Erection Cerner at 06/29/2022 2:14 PM CDT documented in this encounter Plan of Treatment Upcoming Encounters Date Type Department Care Team (Late st Contact Info) Description 05/25/2025 10:45 AM EDT Office Visit [facility] [place] [place] [address] Jalen Enciso MD [address] [place] [address] [place] [address] 06/23/2025 10:00 AM EDT Appointment [facility] [place] [address] [place] [address] Román White MD [address] [place] [address] documented as of this encounter Visit Diagnoses Not on filedocumented in this encounter Care Teams Towel Rolling Machine Operator Relationship Specialty Start Date End Date Kaylene Brooke MD [address] [place] [address] PCP - General General Internal Medicine 01/27/22 Farooq Marcus MD [address] [place] [address] PCP - General Family Medicine 02/27/22 documented as of this encounter
--- OUTSIDE RECORDS SUMMARY | 2025-02-27 15:22 | XMS_ITS | Encounter Summary ---
Author Organization [employer] ([place], [place], [place], [place], [place]) Address [address] [place] [address] Care Team Providers Care Senior Lead Project Manager Name Role Phone Kaylene Brooke MD Primary Care Provider [phone] Farooq Marcus MD Primary Care Provider [phone] Encounter Details Date Type Department Care Team (Late st Contact Info) Description 10/12/2020 Transcribed Document [facility] [place] [address] [place] [address] ProviderRayray MD [address] [place] [address] [id number] Social History Tobacco Use Types Packs/Day Years [...] Description 05/25/2025 10:45 AM EDT Office Visit [facility] - [address] [facility] [address] [facility] [address] [place] [address] Jalen Enciso MD [address] [place] [address] 06/23/2025 10:00 AM EDT Appointment [facility] - [place] [address] [place] [address] Román White MD [address] [place] [address] documented as of this encounter Visit Diagnoses Not on filedocumented in this encounter Care Teams Senior Lead Project Manager Relationship Specialty Start Date End Date MendyKaylene dunn MD [address] [place] [address] PCP - General General Internal Medicine 01/27/22 Farooq Marcus MD [address] [facility] [place] [address] PCP - General Family Medicine 02/27/22 documented as of this encounter
--- OUTSIDE RECORDS SUMMARY | 2025-02-27 15:22 | XMS_ITS | Encounter Summary ---
Author Organization [employer] ([place], [place], [place], [place], [place]) Address [address] [place] [address] Care Team Providers Care Stripper And Printer Name Role Phone Kaylene Brooke MD Primary Care Provider [phone] Farooq Marcus MD Primary Care Provider [phone] Encounter Details Date Type Department Care Team (Late st Contact Info) Description 10/09/2020 Transcribed Document [facility] [place] [address] [place] [address] ProviderRayray MD [address] [place] [address] Social History Tobacco Use Types Packs/Day Years [...] intake of solid food x 1 week apns. Pt wiht significant weight loss since last [...] Was not tolerating Ensure oor Boost (adriane/vanilla) apns. Wanting to try Ensure Clear Dx: N/V, mild dehydration PMH: met esophageal ca, recent chemo completion, NSTEMI, pancreatitis Meds: MVT, PPI Labs: noted Skin: stg 2 coccyx GI: LBM 10/07 DIet: Cardiac Intake: 0-30% of meals Ht: 72 in Wt: 148# (10/11) Wt Hx: 159# (09/08/20) UBW: ~180# per pt spouse BMI: 20.1 IBW: 178# MARAL SIERRA RD, MYA - 10/11/2020 12:27 EDT Dietitian Malnutrition Assessment [...] and calf muscle wasting MARAL SIERRA RD, MYA - 10/11/2020 12:27 EDT Nutrition Diagnoses Nutrient Intake : Chronic disease or condition related malnutrition Nutrient Intake Related to : esophageal ca Nutrient Intake As Evidenced by : Pt reports eating 0-30% of meals since May and has lost a total of 30#(16.8%) x 4 months (severe). Observed Moderate buccal and calf muscle wasting Nutrient Intake Status : Active MARAL SIERRA ML, [facility] 10/11/2020 12:27 EDT Nutrition Interventions Meals and Snacks : Sodium modified diet Nutrition Supplement Therapy : Commercial beverage MARAL SIERRAML [facility] 10/11/2020 12:36 EDT Monitoring/Evaluation Energy Intake : Total energy intake Food Intake : Amount of food Protein Intake : Total protein Weight Status : Weight Maintanence Gastrointestinal Function : Bowel Function MARIELA MARALML - 10/11/2020 12:36 EDT Nutrition Recommendations Dietitian Recommendations : 1. Liberalize diet to Regular. Will add Ensure Clear TID GoaL: PO intake >50% of meals; increase aurora/pro intake 2. Weigh pt 2x weekly Goal: No further significant weight changes High Risk Severe PCM Criteria Met 10/11/20 MARIELA MARALML, [facility] 10/11/2020 12:36 EDT Education Topics, Nutrition Nutrition Education Grid Dietary Supplements : Verbalizes understanding SANDRAJADA MARALML - 10/11/2020 12:36 EDT Electronically signed by Malina Jacob Conversion Sports Fitness And Wellness Director Cerner at 06/29/2022 2:23 PM CDT documented in this encounter Plan of Treatment Upcoming Encounters Date Type Department Care Team (Late st Contact Info) Description 05/25/2025 10:45 AM EDT Office Visit [facility] - [place] [address] [place] [address] Jalen Enciso MD [address] [place] [address] 06/23/2025 10:00 AM EDT Appointment [facility] [place] [address] [place] [address] Román White MD [address] [place] [address] documented as of this encounter Visit Diagnoses Not on filedocumented in this encounter Care Teams Stripper And Printer Relationship Specialty Start Date End Date Mendy, Kaylene M, MD [address] [place] [address] PCP - General General Internal Medicine 01/27/22 Farooq Marcus MD [address] [place] [address] PCP - General Family Medicine 02/27/22 documented as of this encounter
--- OUTSIDE RECORDS SUMMARY | 2025-02-27 15:22 | XMS_ITS | Encounter Summary ---
Author Organization [employer] ([place], [place], [place], [place], [place]) Address [address] [place] [address] Care Team Providers Care Bag Bleacher Name Role Phone Kaylene Brooke MD Primary Care Provider [phone] Farooq Marcus MD Primary Care Provider [phone] Encounter Details Date Type Department Care Team (Late st Contact Info) Description 10/13/2020 Transcribed Document [facility] [place] [address] [place] [address] ProviderRayray MD [address] [place] [address] 115841 Social History Tobacco Use Types Packs/Day Years Used Date Smoking Tobacco: Never Assessed Sex and Gender Information Value Date Recorded Sex Assigned at Not on file Legal Sex Male 5:14 PM CDT Gender Identity Not on file Sexual Orientation Not on file documented as of this encounter Miscellaneous Notes * Cerner Conversion Note - Rayray San MD - 10/13/2020 8:38 AM CDT Patient: RANCHO DEL ANGEL Age: 84 Years Sex: Male : 1935 Admit Date 10/10/2020 10:58 Discharge Date 10/13/2020 Primary Care Provider MAZIN SHERIDAN MD-[facility] Discharge Diagnosis Severe protein-calorie malnutrition 10/13/2020 E43 [...] has been vomiting the past 2 days. Kaise was not working at home it was [...] Disposition Home Discharge Follow Up MAZIN SHERIDAN MD-[facility] - Within 1 week Discharge Medications (11) [...] be inpatient MAXIMILIANO WALTERS MD-ONC PREETI BENJAMIN MD-GAJesse - anorexia, early satiety. ?EGD NATE KINNEY MD HORN, MICHAEL, MD-ONC Current Diet Order Diet, Adult - Ordered -- Start: 10/12/20 10:11:00 EDT, Regular Diet, Isolation: Standard Precautions Patient Discharge Summary Orders Discharge Activity: Discharge Activity: Activity as tolerated Diet: Discharge Diet: Resume usual diet as tolerated Pending Labs In Process SENDOUT REPORT [id number], [id number], RT - Routine, 10/12/20 8:12:00 EDT Pathology Tissue Request [id number], [id number], 10/12/20 8:12:00 EDT, Collected, RT - Routine, [...] PANDEY 10/09/2020 17:00 EDT [2] CT Head TAVIA Noe; ERIKA HARDEN 10/10/2020 16:08 EDT documented in this encounter Plan of Treatment Upcoming Encounters Date Type Department Care Team (Late st Contact Info) Description 05/25/2025 10:45 AM EDT Office Visit [facility] - [place] [address] [place] [address] Jalen Enciso MD [address] [place] [address] 06/23/2025 10:00 AM EDT Appointment [facility] - [place] [address] [place] [address] Román White MD [address] [place] [address] documented as of this encounter Visit Diagnoses Not on filedocumented in this encounter Care Teams Bag Bleacher Relationship Specialty Start Date End Date Kaylene Brooke MD [address] [place] [address] PCP - General General Internal Medicine 01/27/22 Farooq Marcus MD [address] [facility] [place] [address] PCP - General Family Medicine 02/27/22 documented as of this encounter
--- OUTSIDE RECORDS SUMMARY | 2025-02-27 15:22 | XMS_ITS | Encounter Summary ---
Author Organization [employer] ([place], [place], [place], [place], [place]) Address [address] [place] [address] Care Team Providers Care Aluminum Molding Machine Operator Name Role Phone Kaylene Brooke MD Primary Care Provider [phone] Farooq Marcus MD Primary Care Provider [phone] Encounter Details Date Type Department Care Team (Late st Contact Info) Description 09/23/2020 Transcribed Document [address] [address] Janell Marx MD [address] [place] [address] Social History Tobacco Use Types Packs/Day Years Used Date Smoking Tobacco: Never Assessed Sex and Gender Information Value Date Recorded Sex Assigned at Not on file Legal Sex Male 5:14 PM CDT Gender Identity Not on file Sexual Orientation Not on file documented as of this encounter Miscellaneous Notes * Cerner Conversion Note - Janell Marx MD - 09/23/2020 12:50 PM EDT Patient: DOYLE DEL ANGEL Age: 84 years Sex: Male : 1935 Associated Diagnoses: None Author: JANELL MARX MD-CAR Basic Information PCP: primary cardiology- Dr Mccall Chief Complaint elevated troponin History of Present Illness 84-year-old male with history of coronary disease status post recent stent placement at [facility] 2 months ago, pacemaker placement, history of [...] mL: 1,250 mg, 250 mL/Hr, IV Piggyback, [id number] Problem list: All Problems Anxiety disorder / SNOMED CT 457993477 / Confirmed At risk for sleep apnea / IMO 63561578 / Confirmed Chest pain with high risk for cardiac etiology / SNOMED CT 90900370 / Confirmed Hyperlipidemia / SNOMED CT 40199527 / Confirmed Esophagus cancer / SNOMED CT 381554479 / Confirmed Myocardial infarction / SNOMED CT 12305282 / Confirmed 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, Active Problems (7) Anxiety disorder [...] EDT Height Source Chart Height Entry Format [place] Height/Length, SPANISH (ft) 6 ft Height/Length SPANISH 0 Inch CLINICALHEIGHT 182.88 cm Routine Weight Entry Format Metric 09/22/2020 16:21 EDT Height Source Chart Height Entry Format [place] Height/Length, SPANISH (ft) 6 ft Height/Length SPANISH 0 Inch CLINICALHEIGHT 182.88 cm [place] Body Weight 77 kg Weight Source Bed scale Weight Entry Format [place] Weight Moldovan lb 175 lb CLINICALWEIGHT 79.55 kg Body Surface Area (BSA) 2.01 m2 Body Mass Index 23.8 kg/m2 09/22/2020 9:45 EDT Height Source Stated Height Entry Format [place]line Height/Length, SPANISH (ft) 6 ft Height/Length SPANISH 0 Inch CLINICALHEIGHT 182.88 cm [place] Body Weight 76.59 kg Weight Source, ED Critical estimated dosing weight Weight Entry Format Crestline Weight Moldovan lb 175 lb CLINICALWEIGHT 79.55 kg Body [...] L 91 (SEP 23 06:00) 97 (SEP 22:) General: Alert and oriented. HENT: Oral mucosa [...] 24 Hours) Radiology Results (Last 48 hours) [id number] -- 09/22/2020 16:03 CR Chest 1 Vw [...] Description 05/25/2025 10:45 AM EDT Office Visit [facility] - [place] [address] [place] [address] Jalen Enciso MD [address] [facility] [address] [place] [address] 06/23/2025 10:00 AM EDT Appointment [facility] - [place] [address] [place] [address] Román White MD [address] [place] [address] documented as of this encounter Visit Diagnoses Not on filedocumented in this encounter Care Teams Aluminum Molding Machine Operator Relationship Specialty Start Date End Date Kaylene Brooke MD [address] [facility] [place] [address] PCP - General General Internal Medicine 01/27/22 Farooq Marcus MD [address] [facility] [place] [address] PCP - General Family Medicine 02/27/22 documented as of this encounter
--- OUTSIDE RECORDS SUMMARY | 2025-02-27 15:22 | XMS_ITS | Encounter Summary ---
Author Organization [employer] ([place], [place], [place], [place], [place]) Address [address] [place] [address] Care Team Providers Care Brick Setter Name Role Phone Kaylene Brooke MD Primary Care Provider [phone] Farooq Marcus MD Primary Care Provider [phone] Encounter Details Date Type Department Care Team (Late st Contact Info) Description 09/23/2020 Transcribed Document [facility] [place] [address] [place] [address] ProviderRayray MD [address] [place] [address] 825211 Social History Tobacco Use Types Packs/Day Years [...] 0.9% 250 mL 1,250 mg, IV Piggyback, [id number] Continuous: (1) NaCl 0.9% 1,000 mL 1,000 [...] Description 05/25/2025 10:45 AM EDT Office Visit [facility] - [address] [place] [address] Jalen Enciso MD [address] [place] [address] 06/23/2025 10:00 AM EDT Appointment [facility] - [place] [address] [place] [address] Román White MD [address] [place] [address] documented as of this encounter Visit Diagnoses Not on filedocumented in this encounter Care Teams Brick Setter Relationship Specialty Start Date End Date Kaylene Brooke MD [address] [place] [address] PCP - General General Internal Medicine 01/27/22 Farooq Marcus MD [address] [facility] [place] [address] PCP - General Family Medicine 02/27/22 documented as of this encounter
--- OUTSIDE RECORDS SUMMARY | 2025-02-27 15:22 | XMS_ITS | Encounter Summary ---
Author Organization [employer] ([place], [place], [place], [place], [place]) Address [address] [place] [address] Care Team Providers Care Contracting Support Specialist Name Role Phone Kaylene Brooke MD Primary Care Provider [phone] Farooq Marcus MD Primary Care Provider [phone] Encounter Details Date Type Department Care Team (Late st Contact Info) Description 10/11/2020 Transcribed Document [facility] [place] [place] [address] [place] [address] ProviderRayray MD [address] [place] [address] Social History Tobacco Use Types Packs/Day Years [...] 10/11/2020 8:51 EDT by Mariangel Davis Patient Assembler Unit I Phone Call for Consults Consult Phone Call/Page Attempt : Other: spoike with ernesto Consult Reason : anorexia, early satiety. ?EGD Physician Requesting Consult : JALEN ENCISO MD-ONC Physician Requested for Consult : PREETI BENJAMIN MD-GAE Provider Service Notified Name : Gastroenterology Date and Time Call Returned : 10/11/2020 10:08 EDT Mariangel Davis, Patient Assembler Unit I - 10/11/2020 10:06 EDT Electronically signed by Malina Jacob Conversion Computer Aided Design Designer Cerner at 06/29/2022 2:39 PM CDT documented in this encounter Plan of Treatment Upcoming Encounters Date Type Department Care Team (Late st Contact Info) Description 05/25/2025 10:45 AM EDT Office Visit [facility] - [address] [place] [address] Jalen Enciso MD [address] [place] [address] 06/23/2025 10:00 AM EDT Appointment [facility] - [place] [address] [place] [address] Román White MD [address] [place] [address] documented as of this encounter Visit Diagnoses Not on filedocumented in this encounter Care Teams Contracting Support Specialist Relationship Specialty Start Date End Date Kalyene Brooke MD [address] [place] [address] PCP - General General Internal Medicine 01/27/22 Farooq Marcus MD [address] [facility] [place] [address] PCP - General Family Medicine 02/27/22 documented as of this encounter
--- OUTSIDE RECORDS SUMMARY | 2025-02-27 15:22 | XMS_ITS | Encounter Summary ---
Author Organization [employer] ([place], [place], [place], [place], [place]) Address [address] [place] [address] Care Team Providers Care Medical Parasitologist Name Role Phone Kaylene Brooke MD Primary Care Provider Farooq Marcus MD Primary Care Provider [phone] Encounter Details Date Type Department Care Team (Late st Contact Info) Description 09/23/2020 Transcribed Document [facility] [place] [address] [place] [address] ProviderRayray MD [address] [place] [address] 601141 Social History Tobacco Use Types Packs/Day Years [...] 09/23/2020 9:46 EDT Electronically signed by N[facility] Conversion Recordak Operator Cerner at 06/29/2022 2:29 PM CDT documented in this encounter Plan of Treatment Upcoming Encounters Date Type Department Care Team (Late st Contact Info) Description 05/25/2025 10:45 AM EDT Office Visit [facility] - [address] [place] [address] Jalen Enciso MD [address] [place] [address] [place] [address] 06/23/2025 10:00 AM EDT Appointment [facility] - [address] [place] [address] Román White MD [address] [place] [address] documented as of this encounter Visit Diagnoses Not on filedocumented in this encounter Care Teams Medical Parasitologist Relationship Specialty Start Date End Date Kaylene Brooke MD [address] [place] [address] PCP - General General Internal Medicine 01/27/22 Farooq Marcus MD [address] [place] [address] PCP - General Family Medicine 02/27/22 documented as of this encounter
--- OUTSIDE RECORDS SUMMARY | 2025-02-27 15:22 | XMS_ITS | Encounter Summary ---
Author Organization [employer] ([place], [place], [place], [place], [place]) Address [address] [place] [address] Care Team Providers Care Project Design Engineer Name Role Phone Kaylene Brooke MD Primary Care Provider [phone] Farooq Marcus MD Primary Care Provider [phone] Encounter Details Date Type Department Care Team (Late st Contact Info) Description 09/22/2020 Transcribed Document [facility] [place] [address] [place] [address] ProviderRayray MD [address] [place] [address] 542321 Social History Tobacco Use Types Packs/Day Years [...] EDT Office Visit [facility] - [place] [address] [place] [address] Jalen Enciso MD [address] [place] [place] [address] 06/23/2025 10:00 AM EDT Appointment [facility] - [place] [address] [place] [address] Román White MD [address] [place] [address] documented as of this encounter Visit Diagnoses Not on filedocumented in this encounter Care Teams Project Design Engineer Relationship Specialty Start Date End Date Kaylene Brooke MD [address] [place] [address] PCP - General General Internal Medicine 01/27/22 Farooq Marcus MD [address] [place] [address] PCP - General Family Medicine 02/27/22 documented as of this encounter
--- OUTSIDE RECORDS SUMMARY | 2025-02-27 15:22 | XMS_ITS | Encounter Summary ---
Author Organization [employer] ([place], [place], [place], [place], [place]) Address [address] [place] [address] Care Team Providers Care Electrician Second Name Role Phone Kaylene Brooke MD Primary Care Provider [phone] Farooq Marcus MD Primary Care Provider [phone] Encounter Details Date Type Department Care Team (Late st Contact Info) Description 10/12/2020 Transcribed Document [facility] [place] [address] [place] [address] Rayray San MD [address] [place] [address] [id number] Social History Tobacco Use Types Packs/Day Years [...] - Start Time: 10/12/20 08:09:00 (10/12/20 08:12:35) documented in this encounter Plan of Treatment Upcoming Encounters Date Type Department Care Team (Late st Contact Info) Description 05/25/2025 10:45 AM EDT Office Visit [facility] - [place] [address] [place] [address] Jalen Enciso MD [address] [place] [address] 06/23/2025 10:00 AM EDT Appointment [facility] - [place] [address] [place] [address] Román White MD [address] [place] [address] documented as of this encounter Visit Diagnoses Not on filedocumented in this encounter Care Teams Electrician Second Relationship Specialty Start Date End Date Kaylene Brooke MD [address] [place] [address] PCP - General General Internal Medicine 01/27/22 Farooq Marcus MD [address] [place] [address] PCP - General Family Medicine 02/27/22 documented as of this encounter
--- OUTSIDE RECORDS SUMMARY | 2025-02-27 15:22 | XMS_ITS | Encounter Summary ---
Author Organization [employer] ([place], [place], [place], [place], [place]) Address [address] [place] [address] Care Team Providers Care Platform Attendant Name Role Phone Kaylene Brooke MD Primary Care Provider [phone] Farooq Marcus MD Primary Care Provider [phone] Encounter Details Date Type Department Care Team (Late st Contact Info) Description 10/11/2020 Transcribed Document [facility] [place] [facility] [place] [facility] [place] [address] ProviderRayray MD [address] [place] [address] Social History Tobacco Use Types Packs/Day Years Used Date Smoking Tobacco: Never Assessed Sex and Gender Information Value Date Recorded Sex Assigned at Not on file Legal Sex Male 5:14 PM CDT Gender Identity Not on file Sexual Orientation Not on file documented as of this encounter Miscellaneous Notes * Cerner Conversion Note - Historical ProviderMD - 10/11/2020 2:42 PM CDT Initial Discharge Planning Entered On: 10/11/2020 15:03 EDT Performed On: 10/11/2020 14:42 EDT by Wily Dewitt, FORMS ANALYSIS MANAGER NON-EXEMPT Initial Assessment I Previously Documented Living Environment : No qualifying data available. Living Situation : Home with family care Patient Lives With : Spouse Is the Patient a Caregiver at Home? : No Emergency Contact #1 : -Dirk Del Angel Emergency Contact #1 Phone Number : [phone] Emergency Contact #1 Relationship : -Spouse Emergency Contact #2 : - Emergency Contact #2 Phone Number : - Emergency Contact #2 Relationship : - Enter Doctors Name : Adiel Davis MD Does Patient have PCP Listed? : Yes Patient's Home Caregiver Name/Relationship : Dirk Del Angel/Spouse Medical Durable Power of Stenographer Secretary Name : No Legal Guardian : No Is Guardianship Needed : No Wily Dewitt FORMS ANALYSIS MANAGER NON-EXEMPT - 10/11/2020 14:42 EDT Initial Assessment II Sensory and Motor Deficits : Weakness Current Home Treatments and Equipment : None, Walker Wily Dewitt FORMS ANALYSIS MANAGER NON-EXEMPT - 10/11/2020 14:42 EDT Discharge Needs [...] Acute rehabilitation, Discharge transportation, DME, Home Health, half-way, Short term rehabilitation Patient Discharge Goal : Home Wily Dewitt FORMS ANALYSIS MANAGER NON-EXEMPT - 10/11/2020 14:42 EDT Narrative Note [...] [facility] for oncology & also sees a senior android software engineer through [facility]. Pt lives with his in a private residence & is fairly independent with some family support. He was referred to [facility] last admission, but he is not homebound so they could not provide services. Pt & his state they are not interested in services as he needs to go for MD appointments & other treatments. He also states that he will discuss rehab placement with MDs before deciding on referrals. Pt prefers [facility] or [facility] if rehab is desired. He DOES NOT [...] CM will continue to follow. Wily Dewitt, FORMS ANALYSIS MANAGER NON-EXEMPT - 10/11/2020 14:42 EDT Electronically signed by Nidia [facility] Conversion Supervisor [employer] Cerner at 06/29/2022 2:31 PM CDT documented in this encounter Plan of Treatment Upcoming Encounters Date Type Department Care Team (Late st Contact Info) Description 05/25/2025 10:45 AM EDT Office Visit [facility] - [address] [place] [address] Jalen Enciso MD [address] [facility] [address] [place] [address] 06/23/2025 10:00 AM EDT Appointment [facility] - [place] [address] [place] [address] Román White MD [address] [place] [address] documented as of this encounter Visit Diagnoses Not on filedocumented in this encounter Care Teams Platform Attendant Relationship Specialty Start Date End Date Kaylene Brooke MD [address] [place] [address] PCP - General General Internal Medicine 01/27/22 Farooq Marcus MD [address] [place] [place] [address] PCP - General Family Medicine 02/27/22 documented as of this encounter
--- OUTSIDE RECORDS SUMMARY | 2025-02-27 15:22 | XMS_ITS | Encounter Summary ---
Author Organization [employer] ([place], [place], [place], [place], [place]) Address [address] [place] [address] Care Team Providers Care Anthropology Department Chair Name Role Phone Kaylene Brooke MD Primary Care Provider [phone] Farooq Marcus MD Primary Care Provider [phone] Encounter Details Date Type Department Care Team (Late st Contact Info) Description 09/24/2020 Transcribed Document [facility] [place] Medicine [address] [place] [address] ProviderRayray MD [address] [place] [address]94151 Social History Tobacco Use Types Packs/Day Years Used Date Smoking Tobacco: Never Assessed Sex and Gender Information Value Date Recorded Sex Assigned at Not on file Legal Sex Male 5:14 PM CDT Gender Identity Not on file Sexual Orientation Not on file documented as of this encounter Miscellaneous Notes * Cerner Conversion Note - Historical ProviderMD - 09/24/2020 1:26 PM CDT Patient: RANCHO DEL ANGEL Age: 84 years Sex: Male : 1935 Associated Diagnoses: None Author: CHANTELLE LUNDBERG, Subjective pt seen by me this [...] 09:06) 69 (SEP 24 05:56) 75 (SEP 23:30) Resp Rate 18 (SEP [...] 15) 4.0 (SEP 14) Cl 108 (SEP 16) 108 (SEP 15) 103 (SEP 14) CO2 26 (SEP 16) 28 (SEP 15) 28 (SEP 14) BUN 16 (SEP 16) 20 (SEP 15) 16 (SEP 14) Cr [...] H 132 (SEP 15) H 247 (SEP 14) ALK P H 181 (SEP 16) H [...] (SEP 22) Radiology Results (Last 48 hours) [id number] -- 09/22/2020 16:03 US Abdominal RT Upper [...] two weeks prior to admission, was at [facility] for this stay. depression - start on antidepressant last week with dr enciso - pt and unsure what medication this was. 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 Chantelle Inman Hospitalist pager- [phone] Electronically signed by Nidia [facility] Conversion Project Engineer Chemicals Cerner at 06/29/2022 2:22 PM CDT documented in this encounter Plan of Treatment Upcoming Encounters Date Type Department Care Team (Late st Contact Info) Description 05/25/2025 10:45 AM EDT Office Visit [facility] - Adalberto[place] [address] [place] [address] Jalen Enciso MD [address] [facility] [address] [place] [address] 06/23/2025 10:00 AM EDT Appointment [facility] - [place] [address] [place] [address] Román White MD [address] [place] [address] documented as of this encounter Visit Diagnoses Not on filedocumented in this encounter Care Teams Anthropology Department Chair Relationship Specialty Start Date End Date Kaylene Brooke MD [address] [place] [address] PCP - General General Internal Medicine 01/27/22 Farooq Marcus MD [address] [place] [address] PCP - General Family Medicine 02/27/22 documented as of this encounter
--- OUTSIDE RECORDS SUMMARY | 2025-02-27 15:22 | XMS_ITS | Encounter Summary ---
Author Organization [employer] ([place], [place], [place], [place], [place]) Address [address] [place] [address] Care Team Providers Care Bit Welder Name Role Phone Kaylene Brooke MD Primary Care Provider [phone] Farooq Marcus MD Primary Care Provider [phone] Encounter Details Date Type Department Care Team (Late st Contact Info) Description 10/12/2020 Transcribed Document [facility] [place] [address] [place] [address] ProviderRayray MD [address] [place] [address] Social History Tobacco Use Types Packs/Day Years Used Date Smoking Tobacco: Never Assessed Sex and Gender Information Value Date Recorded Sex Assigned at Not on file Legal Sex Male 5:14 PM CDT Gender Identity Not on file Sexual Orientation Not on file documented as of this encounter Miscellaneous Notes * Cerner Conversion Note - Historical ProviderMD - 10/12/2020 8:00 AM CDT [facility] Endo PreOp Summary Primary Physician: NATE KINNEY MD Finalized Date/Time: 10/12/20 07:57:26 Pt. Name: RANCHO DEL ANGEL Jesse Leal/Sex: 1935 Male Med Rec #: [id number] Physician: PARKER RAVI MD-INT Financial #: [id number] Pt. Type: I Room/Bed: [facility]/1 Admit/Disch: 10/10/20 10:58:00 - Institution: [facility] Endo PreOp Case Times Entry 1 In Preop 10/12/20 07:49:00 Ready for Holding n/a Room Patient Ready for 10/12/20 07:59:00 Surgery Patient Out of Preop 10/12/20 07:59:00 Patient Out of n/a Holding Room Last Modified By: Celeste Rich Rn 10/12/20 07:57:23 [facility] Endo PreOp Case Times Audit 10/12/20 07:57:23 Hadoop Infrastructure Architect: MFWARD Modifier: MFWARD <+> 1 Patient Out of Preop <+> 1 Patient Ready for Surgery Finalized By: Celeste Rich, Rn Document Signatures Signed By: Celeste Rich Rn 10/12/20 07:57 documented in this encounter Plan of Treatment Upcoming Encounters Date Type Department Care Team (Late st Contact Info) Description 05/25/2025 10:45 AM EDT Office Visit [facility] - [place] [address] [place] [address] Jalen Enciso MD [address] [place] [address] 06/23/2025 10:00 AM EDT Appointment [facility] - [place] [address] [place] [address] Román White MD [address] [place] [address] documented as of this encounter Visit Diagnoses Not on filedocumented in this encounter Care Teams Bit Welder Relationship Specialty Start Date End Date Kaylene Brooke MD [address] [place] [address] PCP - General General Internal Medicine 01/27/22 Farooq Marcus MD [address] [place] [address] PCP - General Family Medicine 02/27/22 documented as of this encounter
--- OUTSIDE RECORDS SUMMARY | 2025-02-27 15:22 | XMS_ITS | Encounter Summary ---
Author Organization [employer] ([place], [place], [place], [place], [place]) Address [address] [place] [address] Care Team Providers Care Bulb Packer Name Role Phone Kaylene Brooke MD Primary Care Provider [phone] Farooq Marcus MD Primary Care Provider [phone] Encounter Details Date Type Department Care Team (Late st Contact Info) Description 10/11/2020 Transcribed Document [facility] Family Medicine [address] [place] [address] ProviderRayray MD [address] [place] [address]01 Social History Tobacco Use Types Packs/Day Years Used Date Smoking Tobacco: Never Assessed Sex and Gender Information Value Date Recorded Sex Assigned at Not on file Legal Sex Male 5:14 PM CDT Gender Identity Not on file Sexual Orientation Not on file documented as of this encounter Miscellaneous Notes * Cerner Conversion Note - Rayray San MD - 10/11/2020 8:53 AM CDT Patient: RANCHO DEL ANGEL Age: [...] Description 05/25/2025 10:45 AM EDT Office Visit [facility] - [address] [facility] [address] [place] [address] Jalen Enciso MD [address] [place] [address] [place] [address] 06/23/2025 10:00 AM EDT Appointment [facility] - [address] [place] [address] Román White MD [address] [place] [address] documented as of this encounter Visit Diagnoses Not on filedocumented in this encounter Care Teams Bulb Packer Relationship Specialty Start Date End Date MendyKaylene MD [address] [place] [address] PCP - General General Internal Medicine 01/27/22 Farooq Marcus MD [address] [place] [address] PCP - General Family Medicine 02/27/22 documented as of this encounter
--- OUTSIDE RECORDS SUMMARY | 2025-02-27 15:22 | XMS_ITS | Encounter Summary ---
Author Organization [employer] ([place], [place], [place], [place], [place]) Address [address] [place] [address] Care Team Providers Care Pre Fabricator Name Role Phone Kaylene Brooke MD Primary Care Provider [phone] Farooq Marcus MD Primary Care Provider [phone] Encounter Details Date Type Department Care Team (Late st Contact Info) Description 10/12/2020 Transcribed Document [facility] [place] Family Medicine [address] [place] [address] ProviderRayray MD [address] [place] [address] Social History Tobacco Use Types Packs/Day Years Used Date Smoking Tobacco: Never Assessed Sex and Gender Information Value Date Recorded Sex Assigned at Not on file Legal Sex Male 5:14 PM CDT Gender Identity Not on file Sexual Orientation Not on file documented as of this encounter Miscellaneous Notes * Cerner Conversion Note - Historical ProviderMD - 10/12/2020 8:09 AM CDT [facility] Endo PACU Summary Primary Physician: NATE KINNEY MD Finalized Date/Time: 10/12/20 08:36:30 Pt. Name: DOYLE DEL ANGEL Jesse Leal/Sex: 1935 Male Med Rec #: [id number] Physician: PARKER RAVI MD-INT Financial #: [id number] Pt. Type: I Room/Bed: [facility]/1 Admit/Disch: 10/10/20 10:58:00 - Institution: [facility] Endo PACU Case Times Entry 1 In PACU I 10/12/20 08:18:00 Ready for PACU 10/12/20 08:36:00 Discharge Discharge from PACU 10/12/20 08:36:00 I Last Modified By: Mari Holly, Rn 10/12/20 08:36:29 [facility] Endo PACU Case Times Audit 10/12/20 08:36:29 Rn Progressive Care Unit: [id number] Modifier: [id number] <+> 1 Ready for PACU Discharge <+> 1 Discharge from PACU I Finalized By: Mari Holly, Rn Document Signatures Signed By: Mari Holly Rn 10/12/20 08:36 Electronically signed by Nidia [facility] Conversion Fuel Cell Designer Cerner at 06/29/2022 2:25 PM CDT documented in this encounter Plan of Treatment Upcoming Encounters Date Type Department Care Team (Late st Contact Info) Description 05/25/2025 10:45 AM EDT Office Visit [facility] - [place] [address] [place] [address] Jalen Enciso MD [address] [place] [address] 06/23/2025 10:00 AM EDT Appointment [facility] - [place] [place] [address] Román White MD [address] [place] [address] documented as of this encounter Visit Diagnoses Not on filedocumented in this encounter Care Teams Pre Fabricator Relationship Specialty Start Date End Date Kaylene Brooke MD [address] [place] [address] PCP - General General Internal Medicine 01/27/22 Farooq Marcus MD [address] [facility] [place] [address] PCP - General Family Medicine 02/27/22 documented as of this encounter
--- OUTSIDE RECORDS SUMMARY | 2025-02-27 15:22 | XMS_ITS | Encounter Summary ---
Author Organization [employer] ([place], [place], [place], [place], [place]) Address [address] [place] [address] Care Team Providers Care Laboratory Technologist Name Role Phone Kaylene Brooke MD Primary Care Provider [phone] Farooq Marcus MD Primary Care Provider [phone] Encounter Details Date Type Department Care Team (Late Contact Info) Description 10/12/2020 Transcribed Document [facility] [place] [address] [place] [address] ProviderRayray MD [address] [place] [address] Social History Tobacco Use Types Packs/Day Years [...] 10/12/2020 17:05 EDT Electronically signed by Nidia [facility] Conversion Manager Retirement Cerner at 06/29/2022 2:20 PM CDT documented in this encounter Plan of Treatment Upcoming Encounters Date Type Department Care Team (Late Contact Info) Description 05/25/2025 10:45 AM EDT Office Visit [facility] - [place] [place] [address] Jalen Enciso MD [address] [place] [address] [place] [address] 06/23/2025 10:00 AM EDT Appointment [facility] - [place] [place] [address] Román White MD [address] [place] [address] documented as of this encounter Visit Diagnoses Not on filedocumented in this encounter Care Teams Laboratory Technologist Relationship Specialty Start Date End Date MendyKaylene dunn MD [address] [place] [address] PCP - General General Internal Medicine 01/27/22 Farooq Marcus MD [address] [facility] [place] [address] PCP - General Family Medicine 02/27/22 documented as of this encounter
--- OUTSIDE RECORDS SUMMARY | 2025-02-27 15:22 | XMS_ITS | Encounter Summary ---
Author Organization [employer] ([place], [place], [place], [place], [place]) Address [address] [place] [address] Care Team Providers Care Photocopying Equipment Mechanic Name Role Phone Kaylene Brooke MD Primary Care Provider Farooq Marcus MD Primary Care Provider [phone] Encounter Details Date Type Department Care Team (Late st Contact Info) Description 10/11/2020 Transcribed Document [facility] [place] [address] ProviderRayray MD [address] [place] [address]241 Social History Tobacco Use Types Packs/Day Years [...] to 150mg Malnourished secondary to N&V, consult creel hand - reports loss of leg muscles, he [...] # 0.50 x10(3)/uL (Low) 10/11/2020 05:45 EDT [place] % 11.7 % (High) 10/11/2020 05:45 EDT [place] # 0.64 K/uL 10/11/2020 05:45 EDT Eos % 4.2 % 10/11/2020 05:45 EDT Eos # 0.23 x10(3)/uL 10/11/2020 05:45 EDT Baso % 0.9 % 10/11/2020 05:45 EDT Baso # 0.05 x10(3)/uL 10/11/2020 05:45 EDT Slide Review No 10/11/2020 05:45 EDT IG# 0.04 x10(3)/uL 10/11/2020 05:45 EDT IG% 0.70 % (High) 10/11/2020 05:45 EDT documented in this encounter Plan of Treatment Upcoming Encounters Date Type Department Care Team (Late st Contact Info) Description 05/25/2025 10:45 AM EDT Office Visit [facility] - [address] [place] [address] Jalen Enciso MD [address] [place] [address] [place] [address] 06/23/2025 10:00 AM EDT Appointment [facility] - [address] [place] [address] Román White MD [address] [place] [address] documented as of this encounter Visit Diagnoses Not on filedocumented in this encounter Care Teams Photocopying Equipment Mechanic Relationship Specialty Start Date End Date Kaylene Brooke MD [address] [place] [address] PCP - General General Internal Medicine 01/27/22 Farooq Marcus MD [address] [place] [address] PCP - General Family Medicine 02/27/22 documented as of this encounter
--- OUTSIDE RECORDS SUMMARY | 2025-02-27 15:22 | XMS_ITS | Encounter Summary ---
Author Organization [employer] ([place], [place], [place], [place], [place]) Address [address] [place] [address] Care Team Providers Care Polysomnography Technician Name Role Phone Kaylene Brooke MD Primary Care Provider [phone] Farooq Marcus MD Primary Care Provider Encounter Details Date Type Department Care Team (Late st Contact Info) Description 10/11/[address] [facility] [place] [facility] [place] [address] ProviderRayray MD [address] [place], [place] [phone] Social History Tobacco Use Types Packs/Day Years Used Date Smoking Tobacco: Never Assessed Sex and Gender Information Value Date Recorded Sex Assigned at Not on file Legal Sex Male 5:14 PM CDT Gender Identity Not on file Sexual Orientation Not on file documented as of this encounter Miscellaneous Notes * Cerner Conversion Note - Rayray San MD - 10/11/2020 8:39 AM CDT [facility] Authorization Entered On: 10/11/2020 8:39 EDT Performed On: 10/11/2020 8:39 EDT by CARMINE TORREZ RN Primary Insurance Authorization Authorization and Policy Numbers : Insurance 1 Health Plan: MEDICARE Policy Number: [id number] Authorization Number: Insurance 2 Health Plan: [employer] Medicare Supplement Policy Number: [id number] Authorization Number: Insurance Primary Name : MEDICARE Policy Number: [id number] [employer] Medicare Supplement Policy Number: [id number] Historical Authorization Comments-Primary : No Authorization Comments Found CARMINE TORREZ, RN - 10/11/2020 8:39 EDT documented in this encounter Plan of Treatment Upcoming Encounters Date Type Department Care Team (Late st Contact Info) Description 05/25/2025 10:45 AM EDT Office Visit [facility] - [address] [place] [address] Jalen Enciso MD [address] [place] [address] 06/23/2025 10:00 AM EDT Appointment [facility] - [place] [address] [place] [address] Román White MD [address] [place] [address] documented as of this encounter Visit Diagnoses Not on filedocumented in this encounter Care Teams Polysomnography Technician Relationship Specialty Start Date End Date Kaylene Brooke MD [address] [place] [address] PCP - General General Internal Medicine 01/27/22 Farooq Marcus MD [address] [facility] [place] [address] PCP - General Family Medicine 02/27/22 documented as of this encounter
--- OUTSIDE RECORDS SUMMARY | 2025-02-27 15:22 | XMS_ITS | Encounter Summary ---
Author Organization [employer] ([place], [place], [place], [place], [place]) Address [address] [place] [address] Care Team Providers Care Steel Division Supervisor Name Role Phone Kaylene Brooke MD Primary Care Provider [phone] Farooq Marcus MD Primary Care Provider [phone] Encounter Details Date Type Department Care Team (Late st Contact Info) Description 10/13/2020 Transcribed Document [facility] [place] [address] [place] [address] ProviderRayray MD [address] [place] [address] Social History Tobacco Use Types Packs/Day Years Used Date Smoking Tobacco: Never Assessed Sex and Gender Information Value Date Recorded Sex Assigned at Not on file Legal Sex Male 5:14 PM CDT Gender Identity Not on file Sexual Orientation Not on file documented as of this encounter Miscellaneous Notes * Cerner Conversion Note - Rayray ProviderMD - 10/13/2020 2:00 AM CDT [facility] Electronic Details Entered On: 10/13/2020 2:25 EDT Performed [...] Description 05/25/2025 10:45 AM EDT Office Visit [facility] - [address] [place] [address] Jalen Enciso MD [address] [place] [address] [place] [address] 06/23/2025 10:00 AM EDT Appointment [facility] - [address] [place] [address] Román White MD [address] [place] [address] documented as of this encounter Visit Diagnoses Not on filedocumented in this encounter Care Teams Steel Division Supervisor Relationship Specialty Start Date End Date Kaylene Brooke MD [address] [place] [address] PCP - General General Internal Medicine 01/27/22 Farooq Marcus MD [address] [place] [address] PCP - General Family Medicine 02/27/22 documented as of this encounter
--- OUTSIDE RECORDS SUMMARY | 2025-02-27 15:22 | XMS_ITS | Encounter Summary ---
Author Organization [employer] ([place], [place], [place], [place], [place]) Address [address] [place] [address] Care Team Providers Care Casino Supervisor Name Role Phone Kaylene Brooke MD Primary Care Provider [phone] Farooq Marcus MD Primary Care Provider Encounter Details Date Type Department Care Team (Late st Contact Info) Description 09/23/2020 Transcribed Document [facility] Family Medicine [address] [place] [address] ProviderRayray MD [address] [place] [id number] Social History Tobacco Use Types Packs/Day Years [...] : 09/22/2020 16:03 Co-treated by, OT : data analysis assistant (INDUSTRIAL ROOF PLUMBER) Personal Devices : Personal Devices No Devices Recorded Assistive Devices : Assistive Devices No Devices Recorded PRISCILLA GARY OTR/L - 09/24/2020 14:05 EDT General Status Patient [...] PRISCILLA GARY OTR/Tre - 09/24/2020 14:05 EDT Halfway Goals, OT Bathing LTG Grid Goal #1 [...] for Treatment : cont poc PRISCILLA GARY OTR/Tre - 09/24/2020 14:05 EDT Anticipated Discharge Needs, OT/PT Anticipated Discharge to : Home, with home health PRISCILLA GARY OTR/Tre - 09/24/2020 14:[address] [facility] OT Charges OT Ther Activities Ea 15 Min : 1 PRISCILLA GARY OTR/Tre - 09/24/2020 14:05 EDT Electronically signed by Nidia [facility] Conversion Correspondence School Instructor Cerner at 07/02/2022 4:56 PM CDT documented in this encounter Plan of Treatment Upcoming Encounters Date Type Department Care Team (Late st Contact Info) Description 05/25/2025 10:45 AM EDT Office Visit [facility] - [address] [place] [address] Jalen Enciso MD [address] [place] [address] 06/23/2025 10:00 AM EDT Appointment [facility] - Ald[address] [place] [address] Román White MD [address] [place] [address] documented as of this encounter Visit Diagnoses Not on filedocumented in this encounter Care Teams Casino Supervisor Relationship Specialty Start Date End Date Kaylene Brooke MD [address] [place] [address] PCP - General General Internal Medicine 01/27/22 Farooq Marcus MD [address] [place] [address] PCP - General Family Medicine 02/27/22 documented as of this encounter
--- OUTSIDE RECORDS SUMMARY | 2025-02-27 15:22 | XMS_ITS | Encounter Summary ---
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 Not on file Not on file documented as of this encounter Plan of Treatment Upcoming Encounters Date Type Department Care Team (Late st Contact Info) Description 05/25/2025 10:45 AM EDT Office Visit [facility] - [address] [place] [address] Jalen Enciso MD [address] [place] [address] 06/23/2025 10:00 AM EDT Appointment [facility] - [address] [place] [address] Román White MD [address] [facility] [address] [place] [address] documented as of this encounter Visit Diagnoses Not on filedocumented in this encounter Care Teams Nurse Chemical Dependency Relationship Specialty Start Date End Date Farooq Marcus MD [address] [place] [address] PCP - General Family Medicine 02/27/22 documented as of this encounter
--- OUTSIDE RECORDS SUMMARY | 2025-02-27 15:22 | XMS_ITS | Encounter Summary ---
Author Organization [employer] ([place], [place], [place], [place], [place]) Address [address] [place] [address] Care Team Providers Care Corporate Receptionist Name Role Phone Farooq Marcus MD Primary Care Provider [phone] Encounter Details Date Type Department Care Team (Late st Contact Info) Description 02/23/2025 Social Work [facility] [address] [place] [address] Nico Hutchinson MSW Social History Tobacco Use Types Packs/Day Years [...] Date Scotty rded Speak language other than Central African at home Not on file 03/22/2023 [...] 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 Del Angel, ended up talking with his spouse. She reports he is doing better, is still stressed but finished radiation today. Addressed questions, concerns and offered assistance as needed. Provided contact information for additional resources if needed. Will assist as needed. ING SCHOOL INSTRUCTOR documented in this encounter Plan of Treatment Upcoming Encounters Date Type Department Care Team (Late st Contact Info) Description 05/25/2025 10:45 AM EDT Office Visit [facility] - [address] [place] [address] Jalen Enciso MD [address] [facility] [address] [place] [address] 06/23/2025 10:00 AM EDT Appointment [facility] - [place] [place] [address] Román White MD [address] [place] [address] documented as of this encounter Visit Diagnoses Not on filedocumented in this encounter Care Teams Corporate Receptionist Relationship Specialty Start Date End Date Farooq Marcus MD [address] [place] [address] PCP - General Family Medicine 02/27/22 documented as of this encounter
--- OUTSIDE RECORDS SUMMARY | 2025-02-27 15:22 | XMS_ITS | Encounter Summary ---
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 Not on file documented as of this encounter Plan of Treatment Upcoming Encounters Date Type Department Care Team (Late st Contact Info) Description 05/25/2025 10:45 AM EDT Office Visit [facility] - Ald[address] [place] [address] Jalen Enciso MD [address] [place] [address] 06/23/2025 10:00 AM EDT Appointment [facility] - [address] [place] [address] Román White MD [address] [facility] 120 [place] [address] documented as of this encounter Visit Diagnoses Not on filedocumented in this encounter Care Teams Motor Man Relationship Specialty Start Date End Date Farooq Marcus MD [address] [place] [address] PCP - General Family Medicine 02/27/22 documented as of this encounter
--- OUTSIDE RECORDS SUMMARY | 2025-02-27 15:22 | XMS_ITS | Encounter Summary ---
Author Organization [employer] ([place], [place], [place], [place], [place]) Address [address] [place] [address] Care Team Providers Care Graduate Rn Name Role Phone Kaylene Brooke MD Primary Care Provider [phone] Farooq Marcus MD Primary Care Provider [phone] Encounter Details Date Type Department Care Team (Late st Contact Info) Description 10/11/2020 Transcribed Document [facility] Family Medicine [facility] [place] [address] ProviderRayray MD [address] [place] [address] [id number] Social History Tobacco Use Types Packs/Day Years [...] other Legal Guardian : No Support Person/Patient Sales Route Driver Helper : Yes Support Person/Pt Rep Name : Brandee Del Angel - Contact Password : Cat Support Person/Pt Rep Contact Information : [phone] Want Family/Rep/Phys Notified of Admit : No [...] From : Patient, Spouse Primary Language : Burmese Communication Barrier : None Special Collections Librarian Needed : No YOVANI BERNSTEIN RN - [...] Scale Risk Level : 25-45 Medium Risk [place] Fall Interventions : Personal items within reach [...] Source : Stated Height Entry Format : [place]ney Height, Feet : 6 ft(Converted to: 183 cm, 72 Inch) Height, Inches : 0 Inch(Converted to: 0 ft 0 Inch, 0.00 cm) Clinical Height : 182.88 cm Weight Source : Bed scale Weight Entry Format : Finney Clinical Dosing Weight : 68.18 kg Weight, Pounds : 150 lb Body Surface Area (BSA) : 1.89 m2 Body Mass Index : 20.4 kg/m2 [place] Body Weight : 77 kg YOVANI BERNSTEIN [...] YOVANI BERNSTEIN RN - 10/11/2020 11:28 EDT [place] Suicide Severity Rating Scale (C-SSRS) CSSRS Past [...] Description 05/25/2025 10:45 AM EDT Office Visit [facility] [address] [place] [address] Jalen Enciso MD [address] [place] [address] 06/23/2025 10:00 AM EDT Appointment [facility] - [place] [address] [place] [address] Román White MD [address] [place] [address] documented as of this encounter Visit Diagnoses Not on filedocumented in this encounter Care Teams Graduate Rn Relationship Specialty Start Date End Date Kaylene Brooke MD [address] [place] [address] PCP - General General Internal Medicine 01/27/22 Farooq Marcus MD [address] [facility] [place] [address] PCP - General Family Medicine 02/27/22 documented as of this encounter
--- OUTSIDE RECORDS SUMMARY | 2025-02-27 15:22 | XMS_ITS | Encounter Summary ---
Author Organization [employer] ([place], [place], [place], [place], [place]) Address [address] [place] [address] Care Team Providers Care Remote Sensing Program Manager Name Role Phone Kaylene Brooke MD Primary Care Provider [phone] Farooq Marcus MD Primary Care Provider [phone] Encounter Details Date Type Department Care Team (Late st Contact Info) Description 10/13/2020 Transcribed Document [facility] Family Medicine [address] [place] [address] ProviderRayray MD [address] [place] [address] Social History Tobacco Use Types Packs/Day Years Used Date Smoking Tobacco: Never Assessed Sex and Gender Information Value Date Recorded Sex Assigned at Not on file Legal Sex Male 5:14 PM CDT Gender Identity Not on file Sexual Orientation Not on file documented as of this encounter Miscellaneous Notes * [employer] Conversion Note - Historical ProviderMD - 10/13/2020 11:55 AM CDT Nursing Discharge Summary Entered On: 10/13/2020 11:55 EDT Performed On: 10/13/2020 11:55 EDT by Randi Johnson Rn-Traveler Discharge Documentation Discharge Date/Time : 10/14/2020 12:00 EDT Patient Disposition, General : Discharge Discharge To : Home with ambulatory/outpatient follow-up Education Comment : POC, safety, med mgmt, pain control Randi Johnson Rn-Traveler - 10/13/2020 11:55 EDT Electronically signed by Nidia [facility] Conversion Whirley Operator Cerner at 06/29/2022 2:12 PM CDT documented in this encounter Plan of Treatment Upcoming Encounters Date Type Department Care Team (Late st Contact Info) Description 05/25/2025 10:45 AM EDT Office Visit [facility] - [address] [place] [address] Jalen Enciso MD [address] [place] [address] 06/23/2025 10:00 AM EDT Appointment [facility] - [address] [place] [address] Román White MD [address] [place] [address] documented as of this encounter Visit Diagnoses Not on filedocumented in this encounter Care Teams Remote Sensing Program Manager Relationship Specialty Start Date End Date Kaylene Brooke MD [address] [place] [address] PCP - General General Internal Medicine 01/27/22 Farooq Marcus MD [address] [place] [address] PCP - General Family Medicine 02/27/22 documented as of this encounter
--- OUTSIDE RECORDS SUMMARY | 2025-02-27 15:22 | XMS_ITS | Encounter Summary ---
Author Organization [employer] ([place], [place], [place], [place], [place]) Address [address] [place] [address] Care Team Providers Care Manual Arts Therapist Name Role Phone Kaylene Brooke MD Primary Care Provider [phone] Farooq Marcus MD Primary Care Provider [phone] Encounter Details Date Type Department Care Team (Late st Contact Info) Description 10/12/2020 Transcribed Document [facility] Family Medicine [facility] [place] [address] ProviderRayray MD [address] [place] [id number] Social History Tobacco Use Types Packs/Day Years [...] to 150mg Malnourished -secondary to N&V, consult art sales consultant -Multifactorial given the patient has cancer and [...] Tab, Daily, Start 10/10/20 9:00:00 EDT (PARKER RVAI MD-INT) Sequential Compression Device Start: 10/09/20 16:55:00 [...] PA 10/11/2020 09:36 EDT Electronically signed by [facility] [place] [facility] Conversion Wholesale Account Executive Cerner at 06/29/2022 2:14 PM CDT documented in this encounter Plan of Treatment Upcoming Encounters Date Type Department Care Team (Late st Contact Info) Description 05/25/2025 10:45 AM EDT Office Visit [facility] - [place] [address] [place] [address] Jalen Enciso MD [address] [place] [address] [place] [address] 06/23/2025 10:00 AM EDT Appointment [facility] - [place] [address] [place] [address] Román White MD [address] [place] [address] documented as of this encounter Visit Diagnoses Not on filedocumented in this encounter Care Teams Manual Arts Therapist Relationship Specialty Start Date End Date MendyKaylene MD [address] [place] [address] PCP - General General Internal Medicine 01/27/22 Farooq Marcus MD [address] [place], [place] [address] PCP - General Family Medicine 02/27/22 documented as of this encounter
--- OUTSIDE RECORDS SUMMARY | 2025-02-27 15:22 | XMS_ITS | Encounter Summary ---
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 Not on file documented as of this encounter Plan of Treatment Upcoming Encounters Date Type Department Care Team (Late st Contact Info) Description 05/25/2025 10:45 AM EDT [facility] - [address] [place] [address] Jalen Enciso MD [address] [place] [address] 06/23/2025 10:00 AM EDT Appointment [facility] - [address] [place] [address] Román White MD [address] [facility] 120 [place] [address] documented as of this encounter Visit Diagnoses Not on filedocumented in this encounter Care Teams Accounting Policy Consultant Relationship Specialty Start Date End Date Farooq Marcus MD [address] [place] [address] PCP - General Family Medicine 02/27/22 documented as of this encounter
--- OUTSIDE RECORDS SUMMARY | 2025-02-27 15:22 | XMS_ITS | Encounter Summary ---
Author Organization [email or web address] ([place], [place], [place], [place], [place]) Address [address] [place] [address] Care Team Providers Care Position Description Manager Name Role Phone Kaylene Brooke MD Primary Care Provider [phone] Farooq Marcus MD Primary Care Provider [phone] Encounter Details Date Type Department Care Team (Late st Contact Info) Description 09/25/2020 Transcribed Document [facility] Family Medicine [address] [place] [address] ProviderRayray MD [address] [place] [address]14051 Social History Tobacco Use Types Packs/Day Years Used Date Smoking Tobacco: Never Assessed Sex and Gender Information Value Date Recorded Sex Assigned at Not on file Legal Sex Male 5:14 PM CDT Gender Identity Not on file Sexual Orientation Not on file documented as of this encounter Miscellaneous Notes * Cerner Conversion Note - Rayray San MD - 09/25/2020 11:47 AM CDT Patient: RANCHO DEL ANGEL Age: [...] Description 05/25/2025 10:45 AM EDT Office Visit [facility] - [address] [place] [address] Jalen Enciso MD [address] [place] [address] [place] [address] 06/23/2025 10:00 AM EDT Appointment [facility] - [address] [place] [address] Román White MD [address] [place] [address] documented as of this encounter Visit Diagnoses Not on filedocumented in this encounter Care Teams Position Description Manager Relationship Specialty Start Date End Date Kaylene Brooke MD [address] [place] [address] PCP - General General Internal Medicine 01/27/22 Farooq Marcus MD [address] [place] [address] PCP - General Family Medicine 02/27/22 documented as of this encounter
--- OUTSIDE RECORDS SUMMARY | 2025-02-27 15:22 | XMS_ITS | Encounter Summary ---
Author Organization [employer] ([place], [place], [place], [place], [place]) Address [address] [place] [address] Care Team Providers Care Custom Bow Maker Name Role Phone Kaylene Brooke MD Primary Care Provider [phone] Farooq Marcus MD Primary Care Provider [phone] Encounter Details Date Type Department Care Team (Late st Contact Info) Description 09/24/2020 Transcribed Document [facility] Family Medicine [address] [place] [address] ProviderRayray MD [address] [place] [id number] Social History Tobacco Use Types Packs/Day Years [...] Performed On: 09/24/2020 16:38 EDT by ELIZABETH LAMBERT RN-Cloth Finishing Range Back TenderSugar Cane Grower Progress Note Discharge Arrangements : Patient Post-Acute Information Patient Name: RANCHO DEL ANGEL Gender: Male : 39 Age: 84 Years No Post-Acute Placement(s) Listed No Post-Acute Service(s) Listed No Cur[place]pan Referral(s) Listed ELIZABETH LAMBERT, RN-Cloth Finishing Range Back Tender - 09/24/2020 16:38 EDT Narrative Progress Note Narrative Progress Note : rrs mod plans pending -augusto shannon previous charting :DCP: patient states he plans on going home with spouse, who will transport, therapy recommends home health and rolling walker at discharge and patient agrees to this if MD feels appropriate. CM will continue to follow. ELIZABETH LAMBERT, RN-Cloth Finishing Range Back Tender - 09/24/2020 16:38 EDT Electronically signed by Nidia [facility] Conversion Glove Cleaner Cerner at 06/29/2022 2:11 PM CDT documented in this encounter Plan of Treatment Upcoming Encounters Date Type Department Care Team (Late st Contact Info) Description 05/25/2025 10:45 AM EDT Office Visit [facility] - [address] [place] [address] Jalen Enciso MD [address] [place] [address] [place] [address] 06/23/2025 10:00 AM EDT Appointment [facility] - [address] [place] [address] Román White MD [address] [place] [address] documented as of this encounter Visit Diagnoses Not on filedocumented in this encounter Care Teams Custom Bow Maker Relationship Specialty Start Date End Date Kaylene Brooke MD [address] [place] [address] PCP - General General Internal Medicine 01/27/22 Farooq Marcus MD [address] [place] [address] PCP - General Family Medicine 02/27/22 documented as of this encounter
--- OUTSIDE RECORDS SUMMARY | 2025-02-27 15:22 | XMS_ITS | Encounter Summary ---
Author Organization [employer] ([place], [place], [place], [place], [place]) Address [address] [place] [address] Care Team Providers Care Personalization Specialist Name Role Phone Kaylene Brooke MD Primary Care Provider [phone] Farooq Marcus MD Primary Care Provider [phone] Encounter Details Date Type Department Care Team (Late Contact Info) Description 10/11/2020 Transcribed Document [facility] Family Medicine [address] [place] [address] ProviderRayray MD [address] [place] [address]331 Social History Tobacco Use Types Packs/Day Years [...] Description 05/25/2025 10:45 AM EDT Office Visit [facility] - [address] [place] [address] Jalen Enciso MD [address] [facility] [address] [place] [address] 06/23/2025 10:00 AM EDT Appointment [facility] - [address] [place] [address] Román White MD [address] [place] [address] documented as of this encounter Visit Diagnoses Not on filedocumented in this encounter Care Teams Personalization Specialist Relationship Specialty Start Date End Date MendyKaylene dunn MD [address] [place] [address] PCP - General General Internal Medicine 01/27/22 Farooq Marcus MD [address] [facility] [place] [address] PCP - General Family Medicine 02/27/22 documented as of this encounter
--- OUTSIDE RECORDS SUMMARY | 2025-02-27 15:22 | XMS_ITS | Encounter Summary ---
Author Organization [employer] ([place], [place], [place], [place], [place]) Address [address] [place] [address] Care Team Providers Care Director Of Clinical Trials Name Role Phone Kaylene Brooke MD Primary Care Provider [phone] Farooq Marcus MD Primary Care Provider [phone] Encounter Details Date Type Department Care Team (Late st Contact Info) Description 10/12/[address] [facility] Family Medicine [address] [place] [address] ProviderRayray MD [address] [place] [phone] Social History Tobacco Use Types Packs/Day Years Used Date Smoking Tobacco: Never Assessed Sex and Gender Information Value Date Recorded Sex Assigned at Not on file Legal Sex Male 5:14 PM CDT Gender Identity Not on file Sexual Orientation Not on file documented as of this encounter Miscellaneous Notes * [employer]ner Conversion Note - Historical ProviderMD - 10/12/2020 2:50 PM CDT Patient: RANCHO DEL ANGEL Age: [...] Diagnostic Results Radiology Results (Last 48 hours) [id number] -- 10/10/2020 10:58 CT Head WO W [...] Description 05/25/2025 10:45 AM EDT Office Visit [facility] - [address] [place] [address] Jalen Enciso MD [address] [place] [address] [place] [address] 06/23/2025 10:00 AM EDT Appointment [facility] - [address] [place] [address] Román White MD [address] [place] [address] documented as of this encounter Visit Diagnoses Not on filedocumented in this encounter Care Teams Director Of Clinical Trials Relationship Specialty Start Date End Date Kaylene Brooke MD [address] [place] [address] PCP - General General Internal Medicine 01/27/22 Farooq Marcus MD [address] [place] [place] [address] PCP - General Family Medicine 02/27/22 documented as of this encounter
--- OUTSIDE RECORDS SUMMARY | 2025-02-27 15:22 | XMS_ITS | Encounter Summary ---
Author Organization [employer] ([place], [place], [place], [place], [place]) Address [address] [place] [address] Care Team Providers Care Technology Lab Teacher Name Role Phone Kaylene Brooke MD Primary Care Provider [phone] Farooq Marcus MD Primary Care Provider [phone] Encounter Details Date Type Department Care Team (Late st Contact Info) Description 09/25/2020 Transcribed Document [facility] [place] [facility] [place] [address] ProviderRayray MD [address] [place] [address] [phone] Social History Tobacco Use Types Packs/Day Years Used Date Smoking Tobacco: Never Assessed Sex and Gender Information Value Date Recorded Sex Assigned at Not on file Legal Sex Male 5:14 PM CDT Gender Identity Not on file Sexual Orientation Not on file documented as of this encounter Miscellaneous Notes * Cerner Conversion Note - Historical ProviderMD - 09/25/2020 6:31 PM CDT Patient: RANCHO DEL ANGEL Age: [...] showed bibasilar opacities - continue zosyn, vanc [place]'ed pancreatitis, improved -On admission lipase 5,000's -elevated [...] months ago with dr topete done at [facility] -pt stopped taking brilinta on his own accord shortly after the PCI as it was making him sob -on aspirin 81 mg daily. plavix started here syncope 2 weeks ago two weeks prior to admission, was at [facility] for this stay. depression -start on antidepressant last week with dr enciso -pt and unsure what medication this was. 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 -[facility] dr topete [facility] Hope to advance diet tomorrow VTE Prophylaxis [...] ALYC # 0 K/uL 09/25/2020 05:50 EDT [place] Percent Man 6 % (High) 09/25/2020 05:50 EDT Eos Percent Man 1 % 09/25/2020 05:50 EDT RBC Morphology Abnormal 09/25/2020 05:50 EDT Ovalocytes 1+ (Abnormal) 09/25/2020 05:[address] Estimate Decreased (Abnormal) 09/25/2020 05:50 EDT Slide Review Add Diff 09/25/2020 05:50 EDT Procalcitonin 8.54 ng/mL (High) 09/25/2020 05:50 EDT documented in this encounter Plan of Treatment Upcoming Encounters Date Type Department Care Team (Late st Contact Info) Description 05/25/2025 10:45 AM EDT Office Visit [facility] - [address] [place] [address] Jalen Enciso MD [address] [place] [address] 06/23/2025 10:00 AM EDT Appointment [facility] - [place] [place] [address] Román White MD [address] [place] [address] documented as of this encounter Visit Diagnoses Not on filedocumented in this encounter Care Teams Technology Lab Teacher Relationship Specialty Start Date End Date Kaylene Brooke MD [address] [place] [address] PCP - General General Internal Medicine 01/27/22 Farooq Marcus MD [address] [place] [address] PCP - General Family Medicine 02/27/22 documented as of this encounter
--- OUTSIDE RECORDS SUMMARY | 2025-02-27 15:22 | XMS_ITS | Encounter Summary ---
Author Organization [employer] ([place], [place], [place], [place], [place]) Address [address] [place] [address] Care Team Providers Care Can Dragger Name Role Phone Kaylene Brooke MD Primary Care Provider [phone] Farooq Marcus MD Primary Care Provider [phone] Encounter Details Date Type Department Care Team (Late st Contact Info) Description 09/23/2020 Transcribed Document [facility] [place] [address] [place] [address] ProviderRayray MD [address] [place] [address] [phone] Social History Tobacco Use Types Packs/Day Years [...] Description 05/25/2025 10:45 AM EDT Office Visit [facility] - [address] [place] [address] Jalen Enciso MD [address] [place] [address] 06/23/2025 10:00 AM EDT Appointment [facility] - [place] [place] [address] Román White MD [address] [place] [address] documented as of this encounter Visit Diagnoses Not on filedocumented in this encounter Care Teams Can Dragger Relationship Specialty Start Date End Date Kaylene Brooke MD [address] [place] [address] PCP - General General Internal Medicine 01/27/22 Farooq Marcus MD [address] [facility] [place] [address] PCP - General Family Medicine 02/27/22 documented as of this encounter
--- OUTSIDE RECORDS SUMMARY | 2025-02-27 15:23 | XMS_ITS | Encounter Summary ---
Author Organization [employer] ([place], [place], [place], [place], [place]) Address [address] [place] [address] Care Team Providers Care Scientific Associate Name Role Phone Kaylene Brooke MD Primary Care Provider [phone] Farooq Marcus MD Primary Care Provider [phone] Encounter Details Date Type Department Care Team (Late st Contact Info) Description 09/23/2020 Transcribed Document [facility] [place] [address] [place] [address] ProviderRayray MD [address] [place] [address] 638241 Social History Tobacco Use Types Packs/Day Years [...] 12:01 PT Additional Treatment Ordered By: ACOSTA REEVES, CHATO Active Diagnoses : 09/22/2020 12:00 Abdominal pain [...] Assesessment, PT Physical Therapy Indicated : Yes CONCHA GUALBERTO SALCEDO - 09/24/2020 15:04 EDT Plan of Care, [...] MATIAS KERN PTA - 09/24/2020 15:04 EDT Penitentiary Goals Ambulation LTG Grid Goal #1 Device [...] Comment : no complaints of pain noted MAITAS KERN PTA - 09/24/2020 15:04 EDT Image 1 - Images currently included in the form version of this document have not been included in the text rendition version of the form. Anticipated Discharge Needs, OT/PT Anticipated Discharge to : Home, with home health MATIAS KERN PTA - 09/24/2020 15:04 EDT [place] PT Charges WAREHOUSE SUPERVISOR 3RD SHIFT PT Therap. Exercise 15 min-WAREHOUSE SUPERVISOR 3RD SHIFT : 1 MATIAS KERN PTA - 09/24/2020 15:04 EDT Electronically signed by Malina Jacob Conversion Health Care Marketing Specialist Cerner at 07/02/2022 4:56 PM CDT documented in this encounter Plan of Treatment Upcoming Encounters Date Type Department Care Team (Late st Contact Info) Description 05/25/2025 10:45 AM EDT Office Visit [facility] - [place] [place] [address] Jalen Enciso MD [address] [place] [address] 06/23/2025 10:00 AM EDT Appointment [facility] - [place] [place] [address] Román White MD [address] [place] [address] documented as of this encounter Visit Diagnoses Not on filedocumented in this encounter Care Teams Scientific Associate Relationship Specialty Start Date End Date Kaylene Brooke MD [address] [place] [address] PCP - General General Internal Medicine 01/27/22 Farooq Marcus MD [address] [place] [address] PCP - General Family Medicine 02/27/22 documented as of this encounter
--- OUTSIDE RECORDS SUMMARY | 2025-02-27 15:23 | XMS_ITS | Encounter Summary ---
Author Organization [employer] ([place], [place], [place], [place], [place]) Address [address] [place] [address] Care Team Providers Care Date Puller Name Role Phone Kaylene Brooke MD Primary Care Provider [phone] Farooq Marcus MD Primary Care Provider [phone] Encounter Details Date Type Department Care Team (Late Contact Info) Description 10/10/2020 Transcribed Document [facility] [place] [address] [place] [address] ProviderRayray MD [address] [place] [address] [phone] Social History Tobacco Use Types Packs/Day Years [...] - 10/10/2020 17:58 EDT Electronically signed by iNdia [facility] Conversion New Client Banking Services Clerk Cerner at 06/29/2022 2:42 PM CDT documented in this encounter Plan of Treatment Upcoming Encounters Date Type Department Care Team (Late st Contact Info) Description 05/25/2025 10:45 AM EDT Office Visit [facility] - [address] [place] [address] Jalen Enciso MD [address] [place] [address] 06/23/2025 10:00 AM EDT Appointment [facility] - [address] [place] [address] Román White MD [address] [place] [address] documented as of this encounter Visit Diagnoses Not on filedocumented in this encounter Care Teams Date Puller Relationship Specialty Start Date End Date MendyKaylene dunn MD [address] [place] [address] PCP - General General Internal Medicine 01/27/22 Farooq Marcus MD [address] [facility] [place] [address] PCP - General Family Medicine 02/27/22 documented as of this encounter
--- OUTSIDE RECORDS SUMMARY | 2025-02-27 15:23 | XMS_ITS | Encounter Summary ---
Author Organization [employer] ([place], [place], [place], [place], [place]) Address [address] [place] [address] Care Team Providers Care Shipping And Receiving Clerk Name Role Phone Kaylene Brooke MD Primary Care Provider [phone] Farooq Marcus MD Primary Care Provider [phone] Encounter Details Date Type Department Care Team (Late st Contact Info) Description 09/28/2020 Transcribed Document [facility] [place] [address] [place] [address] ProviderRayray MD [address] [place] [phone] Social History Tobacco Use Types Packs/Day Years [...] 09/28/2020 15:25 EDT Electronically signed by Nidia [facility] Conversion Resort Keeper Cerner at 06/29/2022 2:14 PM CDT documented in this encounter Plan of Treatment Upcoming Encounters Date Type Department Care Team (Late st Contact Info) Description 05/25/2025 10:45 AM EDT Office Visit [facility] - [address] [place] [address] Jalen Enciso MD [address] [place] [address] 06/23/2025 10:00 AM EDT Appointment [facility] [address] [place] [address] Román White MD [address] [place] [address] documented as of this encounter Visit Diagnoses Not on filedocumented in this encounter Care Teams Shipping And Receiving Clerk Relationship Specialty Start Date End Date Kaylene Brooke MD [address] [place] [address] PCP - General General Internal Medicine 01/27/22 Farooq Marcus MD [address] [place] [place] [address] PCP - General Family Medicine 02/27/22 documented as of this encounter
--- OUTSIDE RECORDS SUMMARY | 2025-02-27 15:23 | XMS_ITS | Encounter Summary ---
Author Organization [employer] ([place], [place], [place], [place], [place]) Address [address] [place] [address] Care Team Providers Care Ruling Technician Name Role Phone Kaylene Brooke MD Primary Care Provider [phone] Farooq Marcus MD Primary Care Provider [phone] Encounter Details Date Type Department Care Team (Late st Contact Info) Description 10/10/2020 Transcribed Document [facility] [place] [address] [place] [address] ProviderRayray MD [address] [place] [address] Social History Tobacco Use Types Packs/Day Years [...] On: 10/10/2020 12:58 EDT by HARSHIL GOFF, WILL CALL CLERK General Information Previous Swallow Precautions : None in EMR Diet/Intake Prior to Current Admission : Regular/thin Diet/Intake During Current Admission : Full liquids Intubation Comment, WILL CALL CLERK : N/A HARSHIL GOFF, WILL CALL CLERK - 10/10/2020 12:59 EDT Visit Type, WILL CALL CLERK : Initial evaluation Patient Orders : Consult [...] SLP - 10/10/2020 12:58 EDT Therapy Diagnosis, WILL CALL CLERK : Oropharyngeal swallow seemingly within functional limits [...] 12:58 EDT General Status Patient Received Status, WILL CALL CLERK : Long sitting in bed Patient Left Status, WILL CALL CLERK : Long sitting in bed HARSHIL GOFF [...] regular diet. No further dysphagia services warranted, WILL CALL CLERK will sign off. Please reconsult if new [...] SwRec : Whole, With puree/pudding HARSHIL GOFF WILL CALL CLERK - 10/10/2020 12:59 EDT Therapy Indication Assessment WILL CALL CLERK Indicated : No WILL CALL CLERK Not Indicated : At prior level of function, No skilled services indicated HARSHIL GOFF SLP - 10/10/2020 12:59 EDT Education Barriers To Learning : None evident Individuals Taught : Patient Readiness to Learn : Cooperative HARSHIL GOFF SLP - 10/10/2020 12:59 EDT WILL CALL CLERK Education Assessment Grid 1 Diet Recommendation : Verbalizes understanding Dysphagia : Verbalizes understanding Evaluation Results : Verbalizes understanding HARSHIL GOFF SLP - 10/10/2020 12:59 EDT WILL CALL CLERK Education Assessment Grid 2 Reflux Precautions : Verbalizes understanding HARSHIL GOFF SLP - 10/10/2020 12:[address] [facility] WILL CALL CLERK Charges Evaluation Swallowing Function : 1 HARSHIL GOFF SLP - 10/10/2020 12:59 EDT Electronically signed by Nidia, [facility] Conversion Facility Maintenance Worker Cerner at 06/29/2022 2:42 PM CDT documented in this encounter Plan of Treatment Upcoming Encounters Date Type Department Care Team (Late st Contact Info) Description 05/25/2025 10:45 AM EDT Office Visit [facility] - [address] [facility] [address] [place] [address] Jalen Enciso MD [address] [place] [address] 06/23/2025 10:00 AM EDT Appointment [facility] - [address] [place] [address] Román White MD [address] [facility] [address] [place] [address] documented as of this encounter Visit Diagnoses Not on filedocumented in this encounter Care Teams Ruling Technician Relationship Specialty Start Date End Date Kaylene Brooke MD [address] [place] [address] PCP - General General Internal Medicine 01/27/22 Farooq Marcus MD [address] [place] [address] PCP - General Family Medicine 02/27/22 documented as of this encounter
--- OUTSIDE RECORDS SUMMARY | 2025-02-27 15:23 | XMS_ITS | Encounter Summary ---
Author Organization [employer] ([place], [place], [place], [place], [place]) Address [address] [place] [address] Care Team Providers Care Thread Weaver Name Role Phone Kaylene Brooke MD Primary Care Provider [phone] Farooq Marcus MD Primary Care Provider [phone] Encounter Details Date Type Department Care Team (Late st Contact Info) Description 01/26/2021 Transcribed Document [facility] [place] [address] [place] [address] Rayray San MD [address] [place], [place] [phone] Social History Tobacco Use Types Packs/Day Years Used Date Smoking Tobacco: Never Assessed Sex and Gender Information Value Date Recorded Sex Assigned at Not on file Legal Sex Male 5:14 PM CDT Gender Identity Not on file Sexual Orientation Not on file documented as of this encounter Miscellaneous Notes * Cerner Conversion Note - Rayray San MD - 01/26/2021 12:21 PM BUTTON MAKER Patient Education Materials Follows:Disease Wound Infection A [...] at home: Medicines ??? Take or apply ybpo-tjv-xxdrxcb and prescription medicines only as told by [...] cannot use soap and water, use hand break up worker. ? Change your bandage as told by [...] provider. Document Revised: 10/08/2018 Document Reviewed: 10/08/2018 ElseTrademarkNow Patient Education ? 2020 [employer]vier Inc. Pharmacology [...] you are awake and alert. ??? Take ntlp-lob-ekikkru and prescription medicines only as told by [...] Reviewed: 01/22/2020 Elsevier Patient Education ? 2020 [employer] documented in this encounter Plan of Treatment Upcoming Encounters Date Type Department Care Team (Late st Contact Info) Description 05/25/2025 10:45 AM EDT Office Visit [facility] - [address] [place] [address] Jalen Enciso MD [address] [place] [address] 06/23/2025 10:00 AM EDT Appointment [facility] - [address] [place] [address] Román White MD [address] [place] [address] documented as of this encounter Visit Diagnoses Not on filedocumented in this encounter Care Teams Thread Weaver Relationship Specialty Start Date End Date Kaylene Brooke MD [address] [place] [address] PCP - General General Internal Medicine 01/27/22 Farooq Marcus MD [address] [facility] [place] [address] PCP - General Family Medicine 02/27/22 documented as of this encounter
--- OUTSIDE RECORDS SUMMARY | 2025-02-27 15:23 | XMS_ITS | Encounter Summary ---
Author Organization [employer] ([place], [place], [place], [place], [place]) Address [address] [place] [address] Care Team Providers Care Gas Pumping Station Operator Name Role Phone Kaylene Brooke MD Primary Care Provider [phone] Farooq Marcus MD Primary Care Provider [phone] Encounter Details Date Type Department Care Team (Late st Contact Info) Description 09/28/2020 Transcribed Document [facility] Family Medicine [address] [place] [address] ProviderRayray MD [address] [place] [phone] Social History Tobacco Use Types Packs/Day Years Used Date Smoking Tobacco: Never Assessed Sex and Gender Information Value Date Recorded Sex Assigned at Not on file Legal Sex Male 5:14 PM CDT Gender Identity Not on file Sexual Orientation Not on file documented as of this encounter Miscellaneous Notes * Cerner Conversion Note - Historical ProviderMD - 09/28/2020 5:09 PM CDT Stroke/Warfarin [...] Sudden dizziness or trouble with gait, Call 9-1: EMS activation is crucial My LDL Level: : LDL Level Cholesterol LDL Calculation: 28.8 mg/dL (09/23/20 05:08:00) CASEY Romero RN - 09/28/2020 17:09 EDT Electronically signed by [facility] Conversion Jewel Oliving Machine Operator Cerner at 06/29/2022 2:21 PM CDT documented in this encounter Plan of Treatment Upcoming Encounters Date Type Department Care Team (Late st Contact Info) Description 05/25/2025 10:45 AM EDT Office Visit [facility] - [place] [address] [place] [address] Jalen Enciso MD [address] [facility] [address] [place] [address] 06/23/2025 10:00 AM EDT Appointment [facility] - [place] [address] [place] [address] Román White MD [address] [place] [address] documented as of this encounter Visit Diagnoses Not on filedocumented in this encounter Care Teams Gas Pumping Station Operator Relationship Specialty Start Date End Date Kaylene Brooke MD [address] [place] [address] PCP - General General Internal Medicine 01/27/22 Farooq Marcus MD [address] [place], [place] [address] PCP - General Family Medicine 02/27/22 documented as of this encounter
--- OUTSIDE RECORDS SUMMARY | 2025-02-27 15:23 | XMS_ITS | Encounter Summary ---
Author Organization [employer] ([place], [place], [place], [place], [place]) Address [address] [place] [address] Care Team Providers Care Vending Manager Name Role Phone Kaylene Brooke MD Primary Care Provider [phone] Farooq Marcus MD Primary Care Provider [phone] Encounter Details Date Type Department Care Team (Late st Contact Info) Description 09/27/2020 Transcribed Document [facility] [place] [address] [place] [address] ProviderRayray MD [address] [place] [address]011 Social History Tobacco Use Types Packs/Day Years [...] Performed On: 09/27/2020 15:37 EDT by ELIZABETH LAMBERT RN-Flatware MakerService Control Operator Progress Note Discharge Arrangements : Patient Post-Acute Information Patient Name: DOYLE DEL ANGEL Gender: Male : 39 Age: 84 Years No Post-Acute Placement(s) Listed No Post-Acute Service(s) Listed No [place] Referral(s) Listed Is the Patient Meeting Medical Necessity : Yes Did you Attend Multidisciplinary Rounds? : Yes ELIZABETH LAMBERT, RN-Flatware Maker - 09/27/2020 15:37 EDT Narrative Progress Note Narrative Progress Note : rrs mod boost 3 5/5 day s cm spoke to daughter and patient . cm arranged for [facility] and walker from [facility] . choice /im needed . [...] CM will continue to follow. ELIZABETH LAMBERT RN-Flatware Maker - 09/24/20 16:39:43 ELIZABETH LAMBERT RN-Flatware Maker - 09/27/2020 15:37 EDT Electronically signed by Nidia [facility] Conversion Director On Air Cerner at 06/29/2022 2:10 PM CDT documented in this encounter Plan of Treatment Upcoming Encounters Date Type Department Care Team (Late st Contact Info) Description 05/25/2025 10:45 AM EDT Office Visit [facility] - [address] [place] [address] Jalen Enciso MD [address] [facility] [address] [place] [address] 06/23/2025 10:00 AM EDT Appointment [facility] - [address] [place] [address] Román White MD [address] [place] [address] documented as of this encounter Visit Diagnoses Not on filedocumented in this encounter Care Teams Vending Manager Relationship Specialty Start Date End Date Kaylene Brooke MD [address] [place] [address] PCP - General General Internal Medicine 01/27/22 Farooq Marcus MD [address], [place] [address] PCP - General Family Medicine 02/27/22 documented as of this encounter
--- OUTSIDE RECORDS SUMMARY | 2025-02-27 15:23 | XMS_ITS | Encounter Summary ---
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 Not on file Not on file documented as of this encounter Plan of Treatment Upcoming Encounters Date Type Department Care Team (Late st Contact Info) Description 05/25/2025 10:45 AM EDT Office Visit [facility] - [place] [place] [address] Jalen Enciso MD [address] [place] [address] 06/23/2025 10:00 AM EDT Appointment [facility] - [address] [place] [address] Román White MD [address] [facility] [address] [place] [address] documented as of this encounter Visit Diagnoses Not on filedocumented in this encounter Care Teams Subgrade Tester Relationship Specialty Start Date End Date Farooq Marcus MD [address] [place] [address] PCP - General Family Medicine 02/27/22 documented as of this encounter
--- OUTSIDE RECORDS SUMMARY | 2025-02-27 15:23 | XMS_ITS | Encounter Summary ---
Author Organization [email or web address] ([place], [place], [place], [place], [place]) Address [address] [place] [address] Care Team Providers Care Rn Surgical Pcu Name Role Phone Kaylene Brooke MD Primary Care Provider [phone] Farooq Marcus MD Primary Care Provider [phone] Encounter Details Date Type Department Care Team (Late st Contact Info) Description 09/23/[address] [facility] [place] Family Medicine [address] [place] [address] ProviderRayray MD [address] [place] [address] 469661 Social History Tobacco Use Types Packs/Day Years [...] Source : Chart Height Entry Format : [place] Height, Feet : 6 ft Height, Inches : 0 Inch Clinical Height : 182.88 cm Sean Guidry Rn - 09/23/2020 7:07 EDT Electronically signed by Nidia [facility] Conversion Production Broacher Cerner at 06/29/2022 2:13 PM CDT documented in this encounter Plan of Treatment Upcoming Encounters Date Type Department Care Team (Late st Contact Info) Description 05/25/2025 10:45 AM EDT Office Visit [facility] - [place] [address] [place] [address] Jalen Enciso MD [address] [place] [address] [place] [address] 06/23/2025 10:00 AM EDT Appointment [facility] [place] [address] [place] [address] Román White MD [address] [place] [address] documented as of this encounter Visit Diagnoses Not on filedocumented in this encounter Care Teams Rn Surgical Pcu Relationship Specialty Start Date End Date Kaylene Brooke MD [address] [place] [address] PCP - General General Internal Medicine 01/27/22 Farooq Marcus MD [address] [facility] [place] [address] PCP - General Family Medicine 02/27/22 documented as of this encounter
--- OUTSIDE RECORDS SUMMARY | 2025-02-27 15:23 | XMS_ITS | Encounter Summary ---
Author Organization [employer] ([place], [place], [place], [place], [place]) Address [address] [place] [address] Care Team Providers Care Oil Field Roustabout Name Role Phone Kaylene Brooke MD Primary Care Provider [phone] Farooq Marcus MD Primary Care Provider [phone] Encounter Details Date Type Department Care Team (Late st Contact Info) Description 09/23/2020 Transcribed Document [facility] [place] Medicine [address] [place] [address] ProviderRayray MD [address] [place] [address] 997541 Social History Tobacco Use Types Packs/Day Years Used Date Smoking Tobacco: Never Assessed Sex and Gender Information Value Date Recorded Sex Assigned at Not on file Legal Sex Male 5:14 PM CDT Gender Identity Not on file Sexual Orientation Not on file documented as of this encounter Miscellaneous Notes * Cerner Conversion Note - Rayray ProviderMD - 09/23/2020 2:00 AM CDT Crm Business Analyst Details Entered On: 09/23/2020 2:38 EDT Performed [...] Description 05/25/2025 10:45 AM EDT Office Visit [facility] - [place] [address] [place] [address] Jalen Enciso MD [address] [place] [address] 06/23/2025 10:00 AM EDT Appointment [facility] - [place] [address] [place] [address] Román White MD [address] [place] [address] documented as of this encounter Visit Diagnoses Not on filedocumented in this encounter Care Teams Oil Field Roustabout Relationship Specialty Start Date End Date Kaylene Brooke MD [address] [place] [address] PCP - General General Internal Medicine 01/27/22 Farooq Marcus MD [address] [place] [address] PCP - General Family Medicine 02/27/22 documented as of this encounter
--- OUTSIDE RECORDS SUMMARY | 2025-02-27 15:23 | XMS_ITS | Encounter Summary ---
Author Organization [employer] ([place], [place], [place], [place], [place]) Address [address] [place] [address] Care Team Providers Care Plant Technician Name Role Phone Kaylene Brooke MD Primary Care Provider [phone] Farooq Marcus MD Primary Care Provider [phone] Encounter Details Date Type Department Care Team (Late st Contact Info) Description 09/27/2020 Transcribed Document [facility] [place] Family Medicine [address] [place] [address] ProviderRayray MD [address] [place] [address] [phone] Social History Tobacco Use Types Packs/Day Years [...] Drinking plenty po. No other recoemndations. . Electronically signed by Malina Jacob Conversion Orthodontist Small Business Owner Cerner at 06/29/2022 2:36 PM CDT documented in this encounter Plan of Treatment Upcoming Encounters Date Type Department Care Team (Late st Contact Info) Description 05/25/2025 10:45 AM EDT Office Visit [facility] - [place] [address] [place] [address] Jalen Enciso MD [address] [place] [place] [address] 06/23/2025 10:00 AM EDT Appointment [facility] [place] [address] [place] [address] Román White MD [address] [place] [address] documented as of this encounter Visit Diagnoses Not on filedocumented in this encounter Care Teams Plant Technician Relationship Specialty Start Date End Date Kaylene Brooke MD [address] [place] [address] PCP - General General Internal Medicine 01/27/22 Farooq Marcus MD [address] [place] [address] PCP - General Family Medicine 02/27/22 documented as of this encounter
--- OUTSIDE RECORDS SUMMARY | 2025-02-27 15:23 | XMS_ITS | Encounter Summary ---
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 on file Not on file documented as of this encounter Plan of Treatment Upcoming Encounters Date Type Department Care Team (Late st Contact Info) Description 05/25/2025 10:45 AM EDT Office Visit [facility] - [place] [address] [place] [address] Jalen Enciso MD [address] [place] [address] [place] [address] 06/23/2025 10:00 AM EDT Appointment [facility] - [address] [place] [address] Román White MD [address] [facility] [address] [place] [address] documented as of this encounter Visit Diagnoses Not on filedocumented in this encounter Care Teams Criminology Professor Relationship Specialty Start Date End Date Farooq Marcus MD [address] [place] [address] PCP - General Family Medicine 02/27/22 documented as of this encounter
--- OUTSIDE RECORDS SUMMARY | 2025-02-27 15:23 | XMS_ITS | Encounter Summary ---
Author Organization [employer] ([place], [place], [place], [place], [place]) Address [address] [place] [address] Care Team Providers Care Post Adoption Coordinator Name Role Phone Kaylene Brooke MD Primary Care Provider [phone] Farooq Marcus MD Primary Care Provider [phone] Encounter Details Date Type Department Care Team (Late st Contact Info) Description 01/26/2021 Transcribed Document [facility] [place] [address] [place] [address] ProviderRayray MD [address] [place] [address] [phone] Social History Tobacco Use Types Packs/Day Years Used Date Smoking Tobacco: Never Assessed Sex and Gender Information Value Date Recorded Sex Assigned at Not on file Legal Sex Male 5:14 PM CDT Gender Identity Not on file Sexual Orientation Not on file documented as of this encounter Miscellaneous Notes * Cerner Conversion Note - Historical ProviderMD - 01/26/2021 12:22 PM MANAGEMENT CONSULTING Nursing Discharge Summary Entered On: 01/26/2021 12:22 [...] - 01/26/2021 12:22 EST Electronically signed by Nidia [facility] Conversion Supervisor Composing Room Cerner at 06/29/2022 2:28 PM CDT documented in this encounter Plan of Treatment Upcoming Encounters Date Type Department Care Team (Late st Contact Info) Description 05/25/2025 10:45 AM EDT Office Visit [facility] - [place] [address] [place] [address] Jalen Enciso MD [address] [place] [address] [place] [address] 06/23/2025 10:00 AM EDT Appointment [facility] [place] [address] [place] [address] Román White MD [address] [place] [address] documented as of this encounter Visit Diagnoses Not on filedocumented in this encounter Care Teams Post Adoption Coordinator Relationship Specialty Start Date End Date Kaylene Brooke MD [address] [place] [address] PCP - General General Internal Medicine 01/27/22 Farooq Marcus MD [address] [place] [address] PCP - General Family Medicine 02/27/22 documented as of this encounter
--- OUTSIDE RECORDS SUMMARY | 2025-02-27 15:23 | XMS_ITS | Clinical Summary ---
Author Organization Healthcare Address [address] [place] [address] Care Team Providers Care Bus Or Truck Garage Mechanic Name Role Phone Adriana Felder APRN Primary Care Provider [phone] Social History Tobacco Use Types Packs/Day Years [...] or (1 - 1-dose 75+ series) 2012 RGY-ALVLM-25 Vaccine (4 - 2024- season) 2024 11/10/2020, 05/19/2020, 04/21/2020 [facility]-Influenza Vaccine (#1) 2024 [facility]Y-DTaP,Tdap,and Td Vaccines (2 - Td or Tdap) 07/31/2031 07/30/2021, 05/15/1996 HPV Vaccines (No Doses Required) Completed UKY-HIB Vaccines Aged Out No longer e [...] age to complete this topic Insurance MEDICARE [facility] Care Teams Bus Or Truck Garage Mechanic Relationship Specialty Start Date End Date Adriana Felder APRN [address] [place] [address] PCP - General 07/23/20
--- OUTSIDE RECORDS SUMMARY | 2025-02-27 15:23 | XMS_ITS | Encounter Summary ---
Author Organization [employer] ([place], [place], [place], [place], [place]) Address [address] [place] [address] Care Team Providers Care Delivery Agent Name Role Phone Kaylene Brooke MD Primary Care Provider [phone] Farooq Marcus MD Primary Care Provider [phone] Encounter Details Date Type Department Care Team (Late st Contact Info) Description 10/11/2020 Transcribed Document [facility] [place] [address] [place] [address] ProviderRayray MD [address] [place] [address] [phone] Social History Tobacco Use Types Packs/Day Years [...] male with hx of esophageal cancer, HLD, RI, and anxiety. His last chemotherapy was 09/17/2020 [...] regular diet. No further dysphagia services warranted, SUPERINTENDENT will sign off. Please reconsult if new [...] Wallace PA-C and discussed with Dr. Kinney. I, Ken Kinney, have personally interviewed the [...] Information Primary Care Physician - MAZIN SHERIDAN MD-[facility] Attending Physician - KEISHA TUCKER MD Admitting Physician - KEISHA TUCKER MD Consulting Physician - JALEN GOTTI MD-[facility] - esoph cancer, has an appt on 10/11 will be inpatient Consulting Physician - MAXIMILIANO WALTERS MD-[facility] Consulting Physician - PREETI BENJAMIN MD-GAJesse - anorexia, early satiety. ?EGD Consulting Physician [...] # 0.50 x10(3)/uL (Low) 10/11/2020 05:45 EDT Person % 11.7 % (High) 10/11/2020 05:45 EDT Person # 0.64 K/uL 10/11/2020 05:45 EDT Eos [...] HARDEN 10/10/2020 16:08 EDT Electronically signed by Nidia, [facility] Conversion Criminal Court Judge Cerner at 06/29/2022 2:18 PM CDT documented in this encounter Plan of Treatment Upcoming Encounters Date Type Department Care Team (Late st Contact Info) Description 05/25/2025 10:45 AM EDT Office Visit [facility] - [place] [address] [place] [address] Jalen Gotti MD [address] [place] [address] [place] [address] 06/23/2025 10:00 AM EDT Appointment [facility] - [place] [address] [place] [address] Román White MD [address] [place] [address] documented as of this encounter Visit Diagnoses Not on filedocumented in this encounter Care Teams Delivery Agent Relationship Specialty Start Date End Date Kaylene Brooke MD [address] [place] [address] PCP - General General Internal Medicine 01/27/22 Farooq Marcus MD [address] [place] [address] PCP - General Family Medicine 02/27/22 documented as of this encounter
--- OUTSIDE RECORDS SUMMARY | 2025-02-27 15:23 | XMS_ITS | Encounter Summary ---
Author Organization [employer] ([place], [place], [place], [place], [place]) Address [address] [place] [address] Care Team Providers Care Machine Packaging Technician Name Role Phone Kaylene Brooke MD Primary Care Provider [phone] Farooq Marcus MD Primary Care Provider [phone] Encounter Details Date Type Department Care Team (Late st Contact Info) Description 10/11/2020 Transcribed Document [facility] [place] [address] [place] [address] ProviderRayray MD [address] [place] [address] 083321 Social History Tobacco Use Types Packs/Day Years [...] : 10/10/2020 10:58 Assisted by, PT : administrative tech/aide Personal Devices : Personal Devices No Devices [...] within reach RN/PCT Informed Comment : MERA pedroza'd to treat. Treatment End Time : 10/12/2020 [...] MATIAS KERN PTA - 10/12/2020 15:34 EDT [facility] Goals Ambulation LTG Grid Goal #1 Device [...] MATIAS KERN PTA - 10/12/2020 15:34 EDT [facility] PT Charges SCIENTOLOGIST PT Therap. Exercise 15 min-SCIENTOLOGIST : 1 MATIAS KERN PTA - 10/12/2020 15:34 EDT documented in this encounter Plan of Treatment Upcoming Encounters Date Type Department Care Team (Late st Contact Info) Description 05/25/2025 10:45 AM EDT Office Visit [facility] - [address] [place] [address] Jalen Enciso MD [address] [place] [address] [place] [address] 06/23/2025 10:00 AM EDT Appointment [facility] - [address] [place] [address] Román White MD [address] [place] [address] documented as of this encounter Visit Diagnoses Not on filedocumented in this encounter Care Teams Machine Packaging Technician Relationship Specialty Start Date End Date Kaylene Brooke MD [address] [place] [address] PCP - General General Internal Medicine 01/27/22 Farooq Marcus MD [address] [place] [address] PCP - General Family Medicine 02/27/22 documented as of this encounter
--- OUTSIDE RECORDS SUMMARY | 2025-02-27 15:23 | XMS_ITS | Encounter Summary ---
Author Organization [employer] ([place], [place], [place], [place], [place]) Address [address] [place] [address] Care Team Providers Care Nurse Orthopaedic Name Role Phone Kaylene Brooke MD Primary Care Provider [phone] Farooq Marcus MD Primary Care Provider [phone] Encounter Details Date Type Department Care Team (Late st Contact Info) Description 09/27/2020 Transcribed Document [facility] [place] Family Medicine [address] [place] [address] ProviderRayray MD [address] [place] [address] Social History Tobacco Use Types Packs/Day Years [...] but improved -CXR showed bibasilar opacities -Vanc ND'ed, Transition from Zosyn to Augmentin Acute Pancreatitis, [...] months ago with dr topete done at [facility] -pt stopped taking brilinta on his own accord shortly after the PCI as it was making him sob -on aspirin 81 mg daily. plavix started here syncope 2 weeks ago two weeks prior to admission, was at [facility] for this stay Depression -start on antidepressant last week with dr enciso -pt and unsure what medication this was. 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 -follows with dr topete and dr COSTA in [place] Dispo: Hope to DC tomorrow VTE Prophylaxis [...] Man 16 % (Low) 09/27/2020 11:14 EDT Gem Percent Man 16 % (High) 09/27/2020 11:14 [...] Description 05/25/2025 10:45 AM EDT Office Visit [facility] - [place] [address] [place] [address] Jalen Enciso MD [address] [place] [address] 06/23/2025 10:00 AM EDT Appointment [facility] - [place] [address] [place] [address] Román White MD [address] [place] [address] documented as of this encounter Visit Diagnoses Not on filedocumented in this encounter Care Teams Nurse Orthopaedic Relationship Specialty Start Date End Date Kaylene Brooke MD [address] [place] [address] PCP - General General Internal Medicine 01/27/22 Farooq Marcus MD [address] [place] [address] PCP - General Family Medicine 02/27/22 documented as of this encounter
--- OUTSIDE RECORDS SUMMARY | 2025-02-27 15:23 | XMS_ITS | Encounter Summary ---
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 on file Not on file documented as of this encounter Plan of Treatment Upcoming Encounters Date Type Department Care Team (Late st Contact Info) Description 05/25/2025 10:45 AM EDT Office Visit [facility] - [place] [address] [place] [address] Jalen Enciso MD [address] [place] [address] 06/23/2025 10:00 AM EDT Appointment [facility] - [address] [place] [address] Román White MD [address] [facility] [address] [place] [address] documented as of this encounter Visit Diagnoses Not on filedocumented in this encounter Care Teams Brim Edge Trimmer Relationship Specialty Start Date End Date Farooq Marcus MD [address] [place] [address] PCP - General Family Medicine 02/27/22 documented as of this encounter
--- OUTSIDE RECORDS SUMMARY | 2025-02-27 15:23 | XMS_ITS | Encounter Summary ---
Author Organization [employer] ([place], [place], [place], [place], [place]) Address [address] [place] [address] Care Team Providers Care Cementer Helper Name Role Phone Kaylene Brooke MD Primary Care Provider [phone] Farooq Marcus MD Primary Care Provider [phone] Encounter Details Date Type Department Care Team (Late st Contact Info) Description 01/26/2021 Transcribed Document [facility] [place] Family Medicine [address] [place] [address] ProviderRayray MD [address] [place] [phone] Social History Tobacco Use Types Packs/Day Years Used Date Smoking Tobacco: Never Assessed Sex and Gender Information Value Date Recorded Sex Assigned at Not on file Legal Sex Male 5:14 PM CDT Gender Identity Not on file Sexual Orientation Not on file documented as of this encounter Miscellaneous Notes * Cerner Conversion Note - Historical ProviderMD - 01/26/2021 11:09 AM BOOSTER PUMP OILER Patient: DOYLE DEL ANGEL Age: 85 years Sex: Male : 1935 Associated Diagnoses: None Author: Wayne Bui MD-RAD Pre-OP/Procedure Diagnosis: _Port Removal Indication: Need for iv treatment Procedure Performed: Power Port removal Procedural MD: MELLY Wardsperson: None Sedation: IV Conscious Sedation Findings: Successful Power Port removal Complications: None EBL: Minimal Specimen(s) Removed: None Full report to follow. documented in this encounter Plan of Treatment Upcoming Encounters Date Type Department Care Team (Late st Contact Info) Description 05/25/2025 10:45 AM EDT Office Visit [facility] - [address] [place] [address] Jalen Enciso MD [address] [place] [address] [place] [address] 06/23/2025 10:00 AM EDT Appointment [facility] - [place] [address] [place] [address] Román White MD [address] [place] [address] documented as of this encounter Visit Diagnoses Not on filedocumented in this encounter Care Teams Cementer Helper Relationship Specialty Start Date End Date Kaylene Brooke MD [address] [place] [address] PCP - General General Internal Medicine 01/27/22 Farooq Marcus MD [address] [place] [place] [address] PCP - General Family Medicine 02/27/22 documented as of this encounter
--- OUTSIDE RECORDS SUMMARY | 2025-02-27 15:23 | XMS_ITS | Encounter Summary ---
Author Organization [employer] ([place], [place], [place], [place], [place]) Address [address] [place] [address] Care Team Providers Care Centrifugal Separator Name Role Phone aKylene Brooke MD Primary Care Provider [phone] Farooq Marcus MD Primary Care Provider [phone] Encounter Details Date Type Department Care Team (Late st Contact Info) Description 01/26/2021 Transcribed Document [facility] Family Medicine [address] [place] [address] ProviderRayray MD [address] [place] [address] [id number] Social History Tobacco Use Types Packs/Day Years Used Date Smoking Tobacco: Never Assessed Sex and Gender Information Value Date Recorded Sex Assigned at Not on file Legal Sex Male 5:14 PM CDT Gender Identity Not on file Sexual Orientation Not on file documented as of this encounter Miscellaneous Notes * Cerner Conversion Note - Historical ProviderMD - 01/26/2021 9:01 AM LINUX SYSTEMS ANALYST Pre Procedure Adult Entered On: 01/26/2021 9:05 EST Performed On: 01/26/2021 9:01 EST by LATOYA MANDUJANO RN Height and Weight, Clinical Dosing Height Source : Stated Height Entry Format : [place] Height, Feet : 6 ft(Converted to: 183 cm, 72 Inch) Height, Inches : 0 Inch(Converted to: 0 ft 0 Inch, 0.00 cm) Clinical Height : 182.88 cm Weight Source : Standing scale Weight Entry Format : [place] Clinical Dosing Weight : 76.36 kg Weight, Pounds : 168 lb Body Surface Area (BSA) : 1.98 m2 Body Mass Index : 22.8 kg/m2 [place] Body Weight : 77 kg LATOYA MANDUJANO RN - 01/26/2021 9:01 EST Health Histories Smoking Status : Never (less than 100 in lifetime; none in last 30 days) Smokeless Tobacco Status : Never LATOYA MANDUJANO RN - 01/26/2021 9:01 EST Social History (As [...] LATOYA MANDUJANO RN - 01/26/2021 9:01 EST [place] Suicide Severity Rating Scale (C-SSRS) CSSRS Past [...] Info Legal Guardian : No Support Person/Patient Ore Bridge Operator : Yes Support Person/Pt Rep Name : Brandee Del Angel - Contact Password : Cat Support Person/Pt Rep Contact Information : [phone] Want Family/Rep/Phys Notified of Admit : No Emergency Contact #1 : . Emergency Contact #1 Phone Number : . Emergency Contact #1 Relationship : . Emergency Contact #2 : . Emergency Contact #2 Phone Number : . Emergency Contact #2 Relationship : . Primary Language : Algerian Communication Barrier : None Stripper Machine Operator Needed : No LATOYA MANDUJANO RN - [...] HERRERA Use of Ambulatory Aid : None HERERRA IV Therapy or IV Access : Yes Herrera Gait/Transferring : Normal, bedrest, immobile Herrera Mental Status : Overestimates/Forgets limitations Herrera Fall Risk Score : 75 HERRERA Fall Scale Risk Level : 46 or > High Risk [place] Fall Interventions : Adequate lighting, Assistive devices [...] Description 05/25/2025 10:45 AM EDT Office Visit [facility] [address] [place] [address] Jalen Enciso MD [address] [place] [address] 06/23/2025 10:00 AM EDT Appointment [facility] [place] [address] [place] [address] Román White MD [address] [place] [address] documented as of this encounter Visit Diagnoses Not on filedocumented in this encounter Care Teams Centrifugal Separator Relationship Specialty Start Date End Date Kaylene Brooke MD [address] [place] [address] PCP - General General Internal Medicine 01/27/22 Farooq Marcus MD [address] [place] [address] PCP - General Family Medicine 02/27/22 documented as of this encounter
--- OUTSIDE RECORDS SUMMARY | 2025-02-27 15:23 | XMS_ITS | Encounter Summary ---
Author Organization [employer] ([place], [place], [place], [place], [place]) Address [address] [place] [address] Care Team Providers Care Solar Photovoltaic Crew Lead Name Role Phone Kaylene Brooke MD Primary Care Provider [phone] Farooq Marcus MD Primary Care Provider [phone] Encounter Details Date Type Department Care Team (Late st Contact Info) Description 09/23/2020 Transcribed Document [facility] [address] [place] [address] ProviderRayray MD [address] [place] [address] [id number] Social History Tobacco Use Types Packs/Day Years [...] - 09/23/2020 4:13 EDT Electronically signed by Nidia, [facility] Conversion Wind Turbine Sheet Metal Worker Cerner at 06/29/2022 2:12 PM CDT documented in this encounter Plan of Treatment Upcoming Encounters Date Type Department Care Team (Late st Contact Info) Description 05/25/2025 10:45 AM EDT Office Visit [facility] [place] [address] [place] [address] Jalen Enciso MD [address] [place] [address] 06/23/2025 10:00 AM EDT Appointment [facility] [place] [address] [place] [address] Román White MD [address] [place] [address] documented as of this encounter Visit Diagnoses Not on filedocumented in this encounter Care Teams Solar Photovoltaic Crew Lead Relationship Specialty Start Date End Date Kaylene Brooke MD [address] [place] [address] PCP - General General Internal Medicine 01/27/22 Farooq Marcus MD [address] [place] [address] PCP - General Family Medicine 02/27/22 documented as of this encounter
--- OUTSIDE RECORDS SUMMARY | 2025-02-27 15:23 | XMS_ITS | Encounter Summary ---
Author Organization [employer] ([place], [place], [place], [place], [place]) Address [address] [place] [address] Care Team Providers Care Curriculum Director Name Role Phone Kaylene Brooke MD Primary Care Provider [phone] Farooq Marcus MD Primary Care Provider [phone] Encounter Details Date Type Department Care Team (Late st Contact Info) Description 09/14/2020 Transcribed Document [facility] [place] [address] [place] [address] ProviderRayray MD [address] [place] [address] [id number] Social History Tobacco Use Types Packs/Day Years [...] indicated below: Significant Changes: Electronically signed by [facility], [facility] Conversion Outreach Nurse Cerner at 06/29/2022 2:15 PM CDT documented in this encounter Plan of Treatment Upcoming Encounters Date Type Department Care Team (Late st Contact Info) Description 05/25/2025 10:45 AM EDT Office Visit [facility] - [place] [place] [address] Jalen Enciso MD [address] [place] [address] 06/23/2025 10:00 AM EDT Appointment [facility] [place] [address] [place] [address] Román White MD [address] [place] [address] documented as of this encounter Visit Diagnoses Not on filedocumented in this encounter Care Teams Curriculum Director Relationship Specialty Start Date End Date Kaylene Brooke MD [address] [place] [address] PCP - General General Internal Medicine 01/27/22 Farooq Marcus MD [address] [place] [address] PCP - General Family Medicine 02/27/22 documented as of this encounter
--- OUTSIDE RECORDS SUMMARY | 2025-02-27 15:23 | XMS_ITS | Encounter Summary ---
Author Organization [employer] ([place], [place], [place], [place], [place]) Address [address] [place] [address] Care Team Providers Care Quill Cleaning Machine Operator Name Role Phone Kaylene Brooke MD Primary Care Provider [phone] Farooq Marcus MD Primary Care Provider [phone] Encounter Details Date Type Department Care Team (Late st Contact Info) Description 09/28/2020 Transcribed Document [facility] [place] [address] [place] [address] ProviderRayray MD [address] [place] [address] [phone] Social History Tobacco Use Types Packs/Day Years Used Date Smoking Tobacco: Never Assessed Sex and Gender Information Value Date Recorded Sex Assigned at Not on file Legal Sex Male 5:14 PM CDT Gender Identity Not on file Sexual Orientation Not on file documented as of this encounter Miscellaneous Notes * Cerner Conversion Note - Rayray San MD - 09/28/2020 4:53 PM CDT Patient: RANCHO DEL ANGEL Age: 84 Years Sex: Male : 1935 Admit Date 09/22/2020 16:03 Discharge Date 09/28/2020 Primary Care Provider MAZIN SHERIDAN MD-[facility] Discharge Diagnosis Pancreatitis 09/22/2020 K85.90 ICD-10-CM [...] 0.76 m/s E/A ratio: 0.81 m/s Volume ficwprxjl636.8 LV length: 6.35 cm ml Volume ypibgsup37.41 ml LVOT diameter: 2.06 cm Normal sized [...] coronary artery disease last with PCI in the medical center about 2 months ago as well as pacemaker for heart rhythm , possibly afib who presented to [facility] on 09/22 for evaluation of abd pain [...] stent placement about 2 months ago in the medical center he was started on brilinta and aspirin and didnt like how it made me feel thus he stopped taking the brilinta. He had syncopal episode after taking metoprolol and protonix and thus stopped taking those too about 2 weeks ago. He was also hospitalized at the medical center then. He reports significant weight loss [...] elevated but improved -CXR showed bibasilar opacities [facility], Transition from Zosyn to Augmentin--completed course -Follow [...] months ago with dr topete done at the medical center -pt stopped taking brilinta on his own accord shortly after the PCI as it was making him sob -on aspirin 81 mg daily. plavix started here syncope 2 weeks ago two weeks prior to admission, was at the medical center for this stay Depression -start on antidepressant, (they couldn't give any more info), last week with dr enciso 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 -follows with dr topete and dr COSTA in [place] Vital Signs T: 36.6 ??C TMIN: 36.6 [...] Home Care Discharge Follow Up MAZIN SHERIDAN MD-[facility] - Within 5 to 7 days [...] Stable Consulting Physicians JALEN ENCISO MD-ONC (known enciso patient with [...] Description 05/25/2025 10:45 AM EDT Office Visit [facility] [place] [address] [place] [address] Jalen Enciso MD [address] [place] [address] 06/23/2025 10:00 AM EDT Appointment [facility] [place] [address] [place] [address] Román White MD [address] [place] [address] documented as of this encounter Visit Diagnoses Not on filedocumented in this encounter Care Teams Quill Cleaning Machine Operator Relationship Specialty Start Date End Date Kaylene Brooke MD [address] [place] [address] PCP - General General Internal Medicine 01/27/22 Farooq Marcus MD [address] [place] [address] PCP - General Family Medicine 02/27/22 documented as of this encounter
--- OUTSIDE RECORDS SUMMARY | 2025-02-27 15:23 | XMS_ITS | Encounter Summary ---
Author Organization [employer] ([place], [place], [place], [place], [place]) Address [address] [place] [address] Care Team Providers Care Spark Plug Assembler Name Role Phone Kaylene Brooke MD Primary Care Provider [phone] Farooq Marcus MD Primary Care Provider [phone] Encounter Details Date Type Department Care Team (Late st Contact Info) Description 09/08/2020 Transcribed Document [facility] Family [facility] [place], [place] [id number] Rayray San MD [address] [place] [address] [id number] Social History Tobacco Use Types Packs/Day Years [...] through the local health department and the [place] Department for Public Health. Those organizations are [...] and need to call 911, notify the sand mill operator facing sand that you have, or think you might [...] clean your hands with an alcohol-based hand inside solar sales consultant that contains at least 60% alcohol. Clean your hands often. ??? Wash hands: Wash your hands often with soap and water for at least 20 seconds when visibly dirty. This is especially important after blowing your nose, coughing or sneezing, and going to the bathroom, and before eating or preparing food. ??? Hand inside solar sales consultant: Use an alcohol-based hand inside solar sales consultant with at least 60% alcohol, covering all [...] and water or put them in the dredge pumper. Clean all high-touch surfaces every day. Clean [...] or body fluids on them. ??? Household teachers' assistant and disinfectants: Clean the area or item [...] list of disinfectants can be found here: https://www.epa.gov/pesticide-registration/nthz-i-qxhgpbltufrte-zjl-fjyogxr-gs rs-cov-2 Oncology Implanted Port Insertion, Care After [...] port is placed, you will get a validation manager's information card. The card has information about [...] and water are not available, use hand inside solar sales consultant. ? Change your dressing as told by [...] it is safe. General instructions ??? Take zdun-smn-asmjkdu and prescription medicines only as told by [...] by your health care provider. Keep the validation manager's information card with you at all times. [...] provider. Document Revised: 09/24/2018 Document Reviewed: 09/24/2018 [employer] Patient Education ? 2020 [employer]. Pharmacology Moderate Conscious Sedation, Adult, Care After [...] you are awake and alert. ??? Take fmvk-iei-pxqwfgf and prescription medicines only as told by [...] provider. Document Revised: 02/08/2018 Document Reviewed: 06/17/2016 [employer] Patient Education ? 2019 [employer]. documented in this encounter Plan of Treatment Upcoming Encounters Date Type Department Care Team (Late st Contact Info) Description 05/25/2025 10:45 AM EDT Office Visit [facility] [place] [address] [place] [address] Jalen Enciso MD [address] [place] [address] [place] [address] 06/23/2025 10:00 AM EDT Appointment [facility] [place] [address] [place] [address] Román White MD [address] [place] [address] documented as of this encounter Visit Diagnoses Not on filedocumented in this encounter Care Teams Spark Plug Assembler Relationship Specialty Start Date End Date Kaylene Brooke MD [address] [place] [address] PCP - General General Internal Medicine 01/27/22 Farooq Marcus MD [address] [place] [address] PCP - General Family Medicine 02/27/22 documented as of this encounter
--- OUTSIDE RECORDS SUMMARY | 2025-02-27 15:23 | XMS_ITS | Encounter Summary ---
Author Organization [employer] ([place], [place], [place], [place], [place]) Address [address] [place] [address] Care Team Providers Care Information Technology Specialist Name Role Phone Kaylene Brooke MD Primary Care Provider [phone] Farooq Marcus MD Primary Care Provider [phone] Encounter Details Date Type Department Care Team (Late st Contact Info) Description 09/26/2020 Transcribed Document [facility] Family Medicine [address] [place] [address] ProviderRayray MD [address] [place] [address] 165621 Social History Tobacco Use Types Packs/Day Years Used Date Smoking Tobacco: Never Assessed Sex and Gender Information Value Date Recorded Sex Assigned at Not on file Legal Sex Male 5:14 PM CDT Gender Identity Not on file Sexual Orientation Not on file documented as of this encounter Miscellaneous Notes * Cerner Conversion Note - Historical ProviderMD - 09/26/2020 3:15 PM CDT Patient: RANCHO DEL ANGEL Age: [...] but improved -CXR showed bibasilar opacities -Vanc MS'ed, continue zosyn Acute Pancreatitis, improved -On admission [...] 7-8 range Monitor CAD -per pt s/p C and PCI [address] topete done at [facility] -pt stopped taking brilinta on his own accord shortly after the PCI as it was making him sob -on aspirin 81 mg daily. plavix started here syncope 2 weeks ago two weeks prior to admission, was at [facility] for this stay Depression -start on antidepressant last week with dr enciso -pt and unsure what medication this was. 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 -[place] [facility] [place] [facility] [place] [facility] Advance diet today and evaluate tolerance [...] ALYC # 0 K/uL 09/26/2020 06:05 EDT [place] Percent Man 8 % (High) 09/26/2020 06:05 EDT [place] Percent Man 2 % 09/26/2020 06:05 EDT [place] Percent Man 1 % 09/26/2020 06:05 EDT RBC Morphology Normal 09/26/2020 06:[address] Estimate Decreased (Abnormal) 09/26/2020 06:05 EDT Slide Review Add Diff 09/26/2020 06:05 EDT documented in this encounter Plan of Treatment Upcoming Encounters Date Type Department Care Team (Late st Contact Info) Description 05/25/2025 10:45 AM EDT Office Visit [facility] [place] [address] [place] [address] Jalen Enciso MD [address] [place] [address] 06/23/2025 10:00 AM EDT Appointment [facility] [place] [address] [place] [address] Román White MD [address] [place] [address] documented as of this encounter Visit Diagnoses Not on filedocumented in this encounter Care Teams Information Technology Specialist Relationship Specialty Start Date End Date Kaylene Brooke MD [address] [place] [address] PCP - General General Internal Medicine 01/27/22 Farooq Marcus MD [address] [place] [place] [address] PCP - General Family Medicine 02/27/22 documented as of this encounter
--- OUTSIDE RECORDS SUMMARY | 2025-02-27 15:23 | XMS_ITS | Encounter Summary ---
Author Organization [employer] ([place], [place], [place], [place], [place]) Address [address] [place] [address] Care Team Providers Care Stonecutter Apprentice Hand Name Role Phone Kaylene Brooke MD Primary Care Provider [phone] Farooq Marcus MD Primary Care Provider [phone] Encounter Details Date Type Department Care Team (Late st Contact Info) Description 09/23/2020 Transcribed Document [facility] [place] [address] [place] [address] ProvideraRyray MD [address] [place] [address] [id number] Social History Tobacco Use Types Packs/Day Years [...] 0.9% 250 mL 1,250 mg, IV Piggyback, [id number] Continuous: (1) NaCl 0.9% 1,000 mL 1,000 [...] (SEP 22) Radiology Results (Last 48 hours) [id number] -- 09/22/2020 16:03 CR Chest 1 Vw [...] effusion.Images reviewed, interpreted, and dictated by Sampson Lwas MD Impression and Plan severe sepsis due [...] months ago with dr topete done at [facility] - pt stopped taking brilinta on his own accord shortly after the PCI as it was making him sob - on aspirin 81 mg daily. syncope 2 weeks ago - two weeks prior to admission, was at [facility] for this stay. depression - start on antidepressant last week with dr enciso - pt and unsure what medication this was. irregular heart rhythm, possibly afib - with pacemaker - follows with dr topete and dr COSTA in [place] , son and DIL. d/w rn time spent: 28 min discharge goals: lft's and leukocytosis improved. await gi and cards plan. if no ercp likely start slowly advancing diet tomorrow. anticipated discharge disposition: home with HH. Chantelle Lundberg D.O. [facility] Hospitalist pager- [phone] Electronically signed by [facility], [facility] Conversion Poultry Hatchery Man Cerner at 06/29/2022 2:15 PM CDT documented in this encounter Plan of Treatment Upcoming Encounters Date Type Department Care Team (Late st Contact Info) Description 05/25/2025 10:45 AM EDT Office Visit [facility] [address] [place] [address] Jalen Enciso MD [address] [place] [address] 06/23/2025 10:00 AM EDT Appointment [facility] [address] [place] [address] Román White MD [address] [place] [address] documented as of this encounter Visit Diagnoses Not on filedocumented in this encounter Care Teams Stonecutter Apprentice Hand Relationship Specialty Start Date End Date Kaylene Brooke MD [address] [place] [address] PCP - General General Internal Medicine 01/27/22 Farooq Marcus MD [address] [place] [address] PCP - General Family Medicine 02/27/22 documented as of this encounter
--- OUTSIDE RECORDS SUMMARY | 2025-02-27 15:23 | XMS_ITS | Encounter Summary ---
Author Organization [employer] ([place], [place], [place], [place], [place]) Address [address] [place] [address] Care Team Providers Care Taxation Agent Name Role Phone Kaylene Brooke MD Primary Care Provider [phone] Farooq Marcus MD Primary Care Provider [phone] Encounter Details Date Type Department Care Team (Late st Contact Info) Description 09/08/2020 Transcribed Document [facility] [place] [address] [place] [address] ProviderRayray MD [address] [place] [address] [id number] Social History Tobacco Use Types Packs/Day Years [...] lumen Power Port placement Procedural MD: Elizabeth Head Nurse: None Sedation: IV Conscious Sedation Findings: Successful Right IJ Power Port placement with ultrasound and fluroscopy guidance. Complications: None EBL: Minimal Specimen(s) Removed: None Full report to follow. documented in this encounter Plan of Treatment Upcoming Encounters Date Type Department Care Team (Late st Contact Info) Description 05/25/2025 10:45 AM EDT Office Visit [facility] - [place] [place] [address] Jalen Enciso MD [address] [place] [address] [place] [address] 06/23/2025 10:00 AM EDT Appointment [facility] [place] [address] [place] [address] Román White MD [address] [place] [address] documented as of this encounter Visit Diagnoses Not on filedocumented in this encounter Care Teams Taxation Agent Relationship Specialty Start Date End Date Kaylene Brooke MD [address] [place] [address] PCP - General General Internal Medicine 01/27/22 Farooq Marcus MD [address] [place] [address] PCP - General Family Medicine 02/27/22 documented as of this encounter
--- OUTSIDE RECORDS SUMMARY | 2025-02-27 15:23 | XMS_ITS | Clinical Summary ---
Author Organization [employer] ([place], [place], [place], [place], [place]) Address [address] [place] [address] Care Team Providers Care Dog Breeder Name Role Phone Farooq Marcus MD Primary Care Provider [phone] Allergies Active Allergy Reactions Criticality Noted Date [...] Date Type Department Care Team Description 02/23/2025 9:45 AM EST - 02/23/2025 11:59 PM EST Hospital Encounter [facility] [address] [place] [address] Román White MD Discharge Disposition: Home or Self Care 02/23/2025 Social Work [facility] [address] [place] [address] Nico Hutchinson MSW 02/23/2025 Travel 02/20/2025 9:50 AM EST - 02/20/2025 11:59 PM EST Hospital Encounter [facility] [address] [place] [address] Román White MD Discharge Disposition: Home or Self Care 02/20/2025 Travel 02/19/2025 9:44 AM EST - 02/19/2025 11:59 PM EST Hospital Encounter [facility] [place] [address] [place] [address] Román White MD Discharge Disposition: Home or Self Care 02/18/2025 9:50 AM EST - 02/18/2025 11:59 PM EST Hospital Encounter [facility] [address] [place] [address] Román White MD Discharge Disposition: Home or Self Care 02/18/2025 Travel 02/17/2025 9:42 AM EST - 02/17/2025 11:59 PM EST Hospital Encounter [facility] [place] [address] [place] [address] Román White MD Discharge Disposition: Home or Self Care 02/17/2025 9:42 AM EST - 02/17/2025 11:59 PM EST Hospital Encounter [facility] [place] [address] [place] [address] Román White MD Gastroesophageal cancer (HCC) (Primary Dx) Discharge Disposition: Home or Self Care 02/16/2025 10:06 AM EST - 02/16/2025 11:59 PM EST Hospital Encounter [facility] [place] [address] [place] [address] Román White MD Discharge Disposition: Home or Self Care 02/16/2025 Travel 02/13/2025 9:45 AM EST - 02/13/2025 11:59 PM EST Hospital Encounter [facility] [place] [address] [place] [address] Román White MD Discharge Disposition: Home or Self Care 02/12/2025 9:38 AM EST - 02/12/2025 11:59 PM EST Hospital Encounter [facility] [place] [address] [place] [address] Román White MD Discharge Disposition: Home or Self Care 02/12/2025 Travel 02/11/2025 9:25 AM EST - 02/11/2025 11:59 PM EST Hospital Encounter [facility] [place] [address] [place] [address] Román White MD Discharge Disposition: Home or Self Care 02/10/2025 9:49 AM EST - 02/10/2025 11:59 PM EST Hospital Encounter [facility] [place] [address] [place] [address] Román White MD Discharge Disposition: Home or Self Care 02/10/2025 9:49 AM EST - 02/10/2025 11:59 PM EST Hospital Encounter [facility] [place] [address] [place] [address] Román White MD Gastroesophageal cancer (HCC) (Primary Dx) Discharge Disposition: Home or Self Care 02/10/2025 Travel 01/30/2025 9:15 AM EST - 01/30/2025 11:59 PM EST Hospital Encounter [facility] [address] [place] [address] Román White MD Discharge Disposition: Home or Self Care 01/29/2025 8:22 AM EST - 01/29/2025 11:59 PM EST Hospital Encounter [facility] [place] [address] [place] [address] Román White MD Gastroesophageal cancer (HCC) (Primary Dx) Discharge Disposition: Home or Self Care 01/29/2025 Travel 01/26/2025 8:56 AM EST - 01/26/2025 11:59 PM EST Hospital Encounter [facility] CT - [address] [place] [address] Devin Juarez MD Malignant neoplasm of thoracic esophagus (HCC) Discharge Disposition: Home or Self Care 12/17/2024 Telephone [facility] [place] [address] [place] [address] Jalen Enciso MD Appointment 12/09/2024 Telephone [facility] [place] [address] [place] [address] Jalen Enciso MD medical records request from Last 3 Months Immunizations Immunization Administration [...] Date Scotty rded Speak language other than Citizen Of [place] at home Not on file 03/22/2023 Want [...] 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 Not on file Not [...] Description 05/25/2025 10:45 AM EDT Office Visit [facility] [place] [address] [place] [address] Jalen Enciso MD [address] [facility] [address] [place] [address] 06/23/2025 10:00 AM EDT Appointment [facility] [place] [address] [place] [address] Román White MD [address] [place] [address] Health Maintenance Due Date Last Done Comments Pneumococcal 50+ years (1 of 1 - PCV) 12/02/1987 Shingles Vaccine (Zoster) (1 of 2) 12/02/1987 Medicare Initial AWV G0438 11/12/2003 Respiratory Syncytial Virus (RSV) Adult or (1 - 1-dose 75+ series) 2012 Falls Risk Screening 03/12/2024 COVID-19 VACCINE ( season) 2024 11/10/2020, 05/19/2020, 04/21/2020 Influenza Vaccine (#1) 2024 Depression Screening (12+) 01/29/2026 01/29/2025 Tobacco Cessation Counseling and Screening (12+) 02/17/2026 02/17/2025 DTAP/TDAP/TD VACCINES (3 - T d or Tdap) 07/31/2031 07/30/2021, 05/15/1996 Procedures Procedure Name Priority Date/Time Associated Diagnosis [...] by Heath Camargo PA-C. Devin Juarez MD IMG CT ORDERABLES Final Result from Last 3 Months Insurance [place] [id number] MEDICARE PART A B Care Teams Dog Breeder Relationship Specialty Start Date End Date Farooq Marcus MD [address] [place] [address] PCP - General Family Medicine 02/27/22
--- OUTSIDE RECORDS SUMMARY | 2025-02-27 15:23 | XMS_ITS | Encounter Summary ---
Author Organization [employer] ([place], [place], [place], [place], [place]) Address [address] [place] [address] Care Team Providers Care Process Specialist Name Role Phone Kaylene Brooke MD Primary Care Provider [phone] Farooq Marcus MD Primary Care Provider [phone] Encounter Details Date Type Department Care Team (Late st Contact Info) Description 09/08/2020 Transcribed Document [facility] [place] [address] [place] [address] ProviderRayray MD [address] [place] [id number] Social History Tobacco Use Types Packs/Day Years [...] Rn-Clinical Coordinator I - 09/08/2020 10:53 EDT Electronically signed by Nidia [facility] Conversion Service Electrician Cerner at 06/29/2022 2:36 PM CDT documented in this encounter Plan of Treatment Upcoming Encounters Date Type Department Care Team (Late st Contact Info) Description 05/25/2025 10:45 AM EDT Office Visit [facility] - [place] [address] [place] [address] Jalen Enciso MD [address] [place] [address] 06/23/2025 10:00 AM EDT Appointment [facility] [place] [address] [place] [address] Román White MD [address] [facility] [address] [place] [address] documented as of this encounter Visit Diagnoses Not on filedocumented in this encounter Care Teams Process Specialist Relationship Specialty Start Date End Date Kaylene Brooke MD [address] [place] [address] PCP - General General Internal Medicine 01/27/22 Farooq Marcus MD [address] [place] [place] [address] PCP - General Family Medicine 02/27/22 documented as of this encounter
--- OUTSIDE RECORDS SUMMARY | 2025-02-27 15:23 | XMS_ITS | Encounter Summary ---
Author Organization [employer] ([place], [place], [place], [place], [place]) Address [address] [place] [address] Care Team Providers Care Marine Fireman Name Role Phone Kaylene Brooke MD Primary Care Provider [phone] Farooq Marcus MD Primary Care Provider [phone] Encounter Details Date Type Department Care Team (Late st Contact Info) Description 01/26/2021 Transcribed Document [facility] [place] [address] ProviderRayray MD [address] [place] [address] Social History Tobacco Use Types Packs/Day Years Used Date Smoking Tobacco: Never Assessed Sex and Gender Information Value Date Recorded Sex Assigned at Not on file Legal Sex Male 5:14 PM CDT Gender Identity Not on file Sexual Orientation Not on file documented as of this encounter Miscellaneous Notes * Cerner Conversion Note - Rayray San MD - 01/26/2021 12:23 PM LINUX SYSTEMS ENGINEER [facility] [address] [place] [id number] RANCHO DEL ANGEL :1935 Visit Time:01/26/2021 Your Visit Summary Your Care Team Admitting Physician - JALEN ENCISO MD-ONC Attending Physician - JALEN ENCISO MD-ONC Primary Care Physician - MAZIN SHERIDAN MD-[facility] Referring Physician - JALEN ENCISO MD-ONC [...] MD-ONC When Comments Follow-up as instructed Where: [address] [place] [id number]- Medications What How Much When Instructions Next [...] at home: Medicines ??? Take or apply xilv-nam-ndvqnxt and prescription medicines only as told by [...] cannot use soap and water, use hand salesforce trainer. ? Change your bandage as told by [...] provider. Document Revised: 10/08/2018 Document Reviewed: 10/08/2018 [employer] Patient Education ?? 2020 [employer] Moderate Conscious Sedation, Adult, Care After [...] you are awake and alert. ??? Take uuff-wzj-qnmthux and prescription medicines only as told by [...] provider. Document Revised: 01/22/2020 Document Reviewed: 01/22/2020 [employer] Patient Education ?? 2020 [employer]. Emergency Awareness and Preventative Care STROKE is [...] Assistance with quitting is available by contacting 1-747-RDCY-NOW. This is a free resource providing counseling, [...] was given the opportunity to ask questions. Patient/Test Examiner Name: Patient/Test Examiner Signature: Relationship to Patient: Clinician/Hospital Test Examiner Signature: Date: documented in this encounter Plan of Treatment Upcoming Encounters Date Type Department Care Team (Late Contact Info) Description 05/25/2025 10:45 AM EDT Office Visit [facility] - [place] [address] [place] [address] Jalen Enciso MD [address] [place] [address] 06/23/2025 10:00 AM EDT Appointment [facility] - [place] [address] [place] [address] Román White MD [address] [place] [address] documented as of this encounter Visit Diagnoses Not on filedocumented in this encounter Care Teams Marine Fireman Relationship Specialty Start Date End Date Kaylene Brooke MD [address] [place] [address] PCP - General General Internal Medicine 01/27/22 Farooq Marcus MD [address] [place] [address] PCP - General Family Medicine 02/27/22 documented as of this encounter
--- OUTSIDE RECORDS SUMMARY | 2025-02-27 15:23 | XMS_ITS | Encounter Summary ---
Author Organization [employer] ([place], [place], [place], [place], [place]) Address [address] [place] [address] Care Team Providers Care Jack Of All Trades Name Role Phone Kaylene Brooke MD Primary Care Provider [phone] Farooq Marcus MD Primary Care Provider [phone] Encounter Details Date Type Department Care Team (Late st Contact Info) Description 09/26/2020 Transcribed Document [facility] [place] [address] [place] [address] ProviderRayray MD [address] [place] [address]341 Social History Tobacco Use Types Packs/Day Years Used Date Smoking Tobacco: Never Assessed Sex and Gender Information Value Date Recorded Sex Assigned at Not on file Legal Sex Male 5:14 PM CDT Gender Identity Not on file Sexual Orientation Not on file documented as of this encounter Miscellaneous Notes * Cerner Conversion Note - Rayray San MD - 09/26/2020 11:05 AM CDT Patient: RANCHO DEL ANGEL Age: [...] Description 05/25/2025 10:45 AM EDT Office Visit [facility] - [place] [address] [place] [address] Jalen Enciso MD [address] [place] [address] 06/23/2025 10:00 AM EDT Appointment [facility] - [place] [address] [place] [address] Román White MD [address] [place] [address] documented as of this encounter Visit Diagnoses Not on filedocumented in this encounter Care Teams Jack Of All Trades Relationship Specialty Start Date End Date Kaylene Brooke MD [address] [place] [address] PCP - General General Internal Medicine 01/27/22 Farooq Marcus MD [address] [place] [address] PCP - General Family Medicine 02/27/22 documented as of this encounter
--- OUTSIDE RECORDS SUMMARY | 2025-02-27 15:23 | XMS_ITS | Encounter Summary ---
Author Organization [email or web address] ([place], [place], [place], [place], [place]) Address [address] [place] [address] Care Team Providers Care Rn Corrections Name Role Phone Kaylene Brooke MD Primary Care Provider [phone] Farooq Marcus MD Primary Care Provider [phone] Encounter Details Date Type Department Care Team (Late st Contact Info) Description 09/28/2020 Transcribed Document [facility] [place] [address] [place] [address] ProviderRayray MD [address] [place] [id number] Social History Tobacco Use Types Packs/Day Years Used Date Smoking Tobacco: Never Assessed Sex and Gender Information Value Date Recorded Sex Assigned at Not on file Legal Sex Male 5:14 PM CDT Gender Identity Not on file Sexual Orientation Not on file documented as of this encounter Miscellaneous Notes * Cerner Conversion Note - Rayray San MD - 09/28/2020 8:34 AM CDT Patient: DOYLE [...] Office Visit [facility] [address] [facility] [address] [place] [address] Jalen Enciso MD [address] [place] [address] 06/23/2025 10:00 AM EDT Appointment [facility] [place] [address] [place] [address] Román White MD [address] [place] [address] documented as of this encounter Visit Diagnoses Not on filedocumented in this encounter Care Teams Rn Corrections Relationship Specialty Start Date End Date MendyKaylene MD [address] [place] [address] PCP - General General Internal Medicine 01/27/22 Farooq Marcus MD [address] [place] [place] [address] PCP - General Family Medicine 02/27/22 documented as of this encounter
--- OUTSIDE RECORDS SUMMARY | 2025-02-27 15:23 | XMS_ITS | Encounter Summary ---
Author Organization [employer] ([place], [place], [place], [place], [place]) Address [address] [place] [address] Care Team Providers Care Yield Clerk Name Role Phone Kaylene Brooke MD Primary Care Provider Farooq Marcus MD Primary Care Provider [phone] Encounter Details Date Type Department Care Team (Late st Contact Info) Description 09/08/2020 Transcribed Document [facility] [place] [address] [place] [address] ProviderRayray MD [address] [place] [address] Social History Tobacco Use Types Packs/Day Years [...] Source : Stated Height Entry Format : [place] Height, Feet : 6 ft(Converted to: 183 cm, 72 Inch) Height, Inches : 0 Inch(Converted to: 0 ft 0 Inch, 0.00 cm) Clinical Height : 182.88 cm Weight Source : Standing scale Weight Entry Format : [place] Clinical Dosing Weight : 72.27 kg Weight, Pounds : 159 lb Body Surface Area (BSA) : 1.93 m2 Body Mass Index : 21.6 kg/m2 [place] Body Weight : 77 kg JUVE GILBERT [...] Rn-Clinical Coordinator I - 09/08/2020 8:39 EDT [place] Suicide Severity Rating Scale (C-SSRS) CSSRS Past [...] 09/08/2020 8:39 EDT General Info Support Person/Patient Expanded Duty Dental Assistant : Yes Support Person/Pt Rep Name : Brandee Del Angel - Support Person/Pt Rep Contact Information : [phone] Want Family/Rep/Phys Notified of Admit : No Emergency Contact #1 : . Emergency Contact #1 Phone Number : . Emergency Contact #1 Relationship : . Emergency Contact #2 : . Emergency Contact #2 Phone Number : . Emergency Contact #2 Relationship : . Primary Language : Macanese Communication Barrier : None Word Processing Specialist Needed : No JUVE GILBERT Rn-Clinical Coordinator [...] Level : 46 or > High Risk [place] Fall Interventions : Adequate lighting, Assistive devices [...] 05/25/2025 10:45 AM EDT Office Visit [facility] [place] [address] [place] [address] Jalen Enciso MD [address] [facility] [address] [place] [address] 06/23/2025 10:00 AM EDT Appointment [facility] [place] [address] [place] [address] Román White MD [address] [place] [address] documented as of this encounter Visit Diagnoses Not on filedocumented in this encounter Care Teams Yield Clerk Relationship Specialty Start Date End Date Kaylene Brooke MD [address] [place] [address] PCP - General General Internal Medicine 01/27/22 Farooq Marcus MD [address] [place] [address] PCP - General Family Medicine 02/27/22 documented as of this encounter
--- OUTSIDE RECORDS SUMMARY | 2025-02-27 15:23 | XMS_ITS | Encounter Summary ---
Author Organization [employer] ([place], [place], [place], [place], [place]) Address [address] [place] [address] Care Team Providers Care Senior Web Engineer Name Role Phone Kaylene Brooke MD Primary Care Provider [phone] Farooq Marcus MD Primary Care Provider [phone] Encounter Details Date Type Department Care Team (Late st Contact Info) Description 09/08/2020 Transcribed Document [facility] [place] [address] [place] [address] ProviderRayray MD [address] [place] [id number] Social History Tobacco Use Types Packs/Day Years [...] On: 09/08/2020 10:45 EDT by JUVE GILBERT, Marty-Clinical Coordinator I Event Note Description of Event [...] Rn-Clinical Coordinator I - 09/08/2020 12:47 EDT Electronically signed by Nidia [facility] Conversion Order Planner Cerner at 06/29/2022 2:42 PM CDT documented in this encounter Plan of Treatment Upcoming Encounters Date Type Department Care Team (Late st Contact Info) Description 05/25/2025 10:45 AM EDT Office Visit [facility] - [place] [address] [place] [address] Jalen Enciso MD [address] [place] [address] [place] [address] 06/23/2025 10:00 AM EDT Appointment [facility] [place] [address] [place] [address] Román White MD [address] [place] [address] documented as of this encounter Visit Diagnoses Not on filedocumented in this encounter Care Teams Senior Web Engineer Relationship Specialty Start Date End Date Kaylene Brooke MD [address] [place] [address] PCP - General General Internal Medicine 01/27/22 Farooq Marcus MD [address] [facility] [place] [address] PCP - General Family Medicine 02/27/22 documented as of this encounter
--- OUTSIDE RECORDS SUMMARY | 2025-02-27 15:23 | XMS_ITS | Encounter Summary ---
Author Organization [employer] ([place], [place], [place], [place], [place]) Address [address] [place] [address] Care Team Providers Care City Director Name Role Phone Kaylene Brooke MD Primary Care Provider [phone] Farooq Marcus MD Primary Care Provider [phone] Encounter Details Date Type Department Care Team (Late st Contact Info) Description 10/11/2020 Transcribed [facility] [place] [address] [place] [address] ProviderRayray MD [address] [place] [id number] Social History Tobacco Use Types Packs/Day Years [...] Weight, Routine Routine Weight Entry Format : [place] Routine Weight, Pounds : 148 lb Routine Weight, Ounces : 7 oz Routine Weight Calculation : 67.47 kg Height Source : Stated Height Entry Format : [place] Height, Feet : 6 ft Height, Inches : 0 Inch Clinical Height : 182.88 cm Body Surface Area (BSA), Routine : 1.88 m2 Body Mass Index (BMI), Routine : 20.17 kg/m2 Frank Elidia Tre, Public Address Technician - 10/11/2020 5:52 EDT documented in this encounter Plan of Treatment Upcoming Encounters Date Type Department Care Team (Late st Contact Info) Description 05/25/2025 10:45 AM EDT Office Visit [facility] - [place] [address] [place] [address] Jalen Enciso MD [address] [place] [address] 06/23/2025 10:00 AM EDT Appointment [facility] [place] [address] [place] [address] Román White MD [address] [place] [address] documented as of this encounter Visit Diagnoses Not on filedocumented in this encounter Care Teams City Director Relationship Specialty Start Date End Date Kaylene Brooke MD [address] [place] [address] PCP - General General Internal Medicine 01/27/22 Farooq Marcus MD [address] [place] [place] [address] PCP - General Family Medicine 02/27/22 documented as of this encounter
--- OUTSIDE RECORDS SUMMARY | 2025-02-27 15:23 | XMS_ITS | Encounter Summary ---
Author Organization [employer] ([place], [place], [place], [place], [place]) Address [address] [place] [address] Care Team Providers Care Health Practice Manager Name Role Phone Kaylene Brooke MD Primary Care Provider [phone] Farooq Marcus MD Primary Care Provider [phone] Encounter Details Date Type Department Care Team (Late st Contact Info) Description 09/08/2020 Transcribed Document [facility] Family Medicine [address] [place] [address] ProviderRayray MD [address] [place] [address] Social History Tobacco Use Types Packs/Day Years Used Date Smoking Tobacco: Never Assessed Sex and Gender Information Value Date Recorded Sex Assigned at Not on file Legal Sex Male 5:14 PM CDT Gender Identity Not on file Sexual Orientation Not on file documented as of this encounter Miscellaneous Notes * Cerner Conversion Note - Rayray San MD - 09/08/2020 10:53 AM CDT [facility] [place] [id number] RAN[place] ANGEL :1935 Visit Time:09/08/2020 Your Visit Summary Your Care Team Admitting Physician - JALEN ENCISO MD-ONC Attending Physician - JALEN ENCISO MD-ONC Primary Care Physician - MAZIN SHERIDAN MD-[facility] Referring Physician - JALEN ENCISO MD-ONC [...] When Comments Follow-up as instructed Where: [address] [place], [place] [id number]- Medications What How Much When Instructions Next [...] port is placed, you will get a school bus attendant's information card. The card has information about [...] and water are not available, use hand speeder worker. ? Change your dressing as told by [...] it is safe. General instructions ??? Take nwzi-urp-bodugzy and prescription medicines only as told by [...] by your health care provider. Keep the school bus attendant's information card with you at all times. [...] you are awake and alert. ??? Take nupn-kbv-fonnlyw and prescription medicines only as told by [...] provider. Document Revised: 02/08/2018 Document Reviewed: 06/17/2016 [employer] Patient Education ?? 2020 [employer] FAQ ??? Patient COVID-19 testing Why [...] through the local health department and the [place] Department for Public Health. Those organizations are [...] and need to call 911, notify the spot machine operator that you have, or think [...] clean your hands with an alcohol-based hand speeder worker that contains at least 60% alcohol. Clean your hands often. ??? Wash hands: Wash your hands often with soap and water for at least 20 seconds when visibly dirty. This is especially important after blowing your nose, coughing or sneezing, and going to the bathroom, and before eating or preparing food. ??? Hand speeder worker: Use an alcohol-based hand speeder worker with at least 60% alcohol, covering all [...] and water or put them in the drop forger helper. Clean all high-touch surfaces every day. Clean [...] or body fluids on them. ??? Household grinder and plater and disinfectants: Clean the area or item [...] list of disinfectants can be found here: https://www.epa.gov/pesticide-registration/mdzz-w-nuomfvxultsea-vci-mmbwjdn-vu rs-cov-2 Emergency Awareness and Preventative Care STROKE [...] Assistance with quitting is available by contacting 5-462-KJSWNOW. This is a free resource providing counseling, support, and referral. Or you may contact your personal physician. [place] Suicide Prevention Lifeline: The National Suicide Prevention [...] ( 9.2 and 12.0 ) Patient Name:ALEX RANCHO E I have received and understand this information and was given the opportunity to ask questions. Patient/Space Physicist Name: Patient/Space Physicist Signature: Relationship to Patient: Clinician/Hospital Space Physicist Signature: Date: documented in this encounter Plan of Treatment Upcoming Encounters Date Type Department Care Team (Late st Contact Info) Description 05/25/2025 10:45 AM EDT Office Visit [facility] [place] [address] [place] [phone] Jalen Enciso MD [address] [facility] [address] [place] [address] 06/23/2025 10:00 AM EDT Appointment [facility] [place] [address] [place] [address] Román White MD [address] [place] [address] documented as of this encounter Visit Diagnoses Not on filedocumented in this encounter Care Teams Health Practice Manager Relationship Specialty Start Date End Date Kaylene Brooke MD [address] [place] [address] PCP - General General Internal Medicine 01/27/22 Farooq Marcus MD [address] [place] [address] PCP - General Family Medicine 02/27/22 documented as of this encounter
--- OUTSIDE RECORDS SUMMARY | 2025-02-27 15:23 | XMS_ITS | Encounter Summary ---
Author Organization [employer] ([place], [place], [place], [place], [place]) Address [address] [place] [address] Care Team Providers Care Drilling Manager Name Role Phone Kaylene Brooke MD Primary Care Provider [phone] Farooq Marcus MD Primary Care Provider [phone] Encounter Details Date Type Department Care Team (Late st Contact Info) Description 09/28/2020 Transcribed Document [facility] Family Medicine [address] [place] [address] Rayray San MD [address] [place] [address] [id number] Social History Tobacco Use Types Packs/Day Years Used Date Smoking Tobacco: Never Assessed Sex and Gender Information Value Date Recorded Sex Assigned at Not on file Legal Sex Male 5:14 PM CDT Gender Identity Not on file Sexual Orientation Not on file documented as of this encounter Miscellaneous Notes * Cerner Conversion Note - Historical MD Jaswinder - 09/28/2020 4:53 PM CDT Patient Education [...] caused your condition. General instructions ??? Take tdxw-jhm-tgdvtta and prescription medicines only as told by your health care provider. ??? Do not drive or use heavy machinery while taking prescription pain medicine. ??? Ask your health care provider if the medicine prescribed to you can cause constipation. You may need to take steps to prevent or treat constipation, such as: ? Take an sqxk-kmg-etcjdge or prescription medicine for constipation. ? Eat [...] provider. Document Revised: 12/16/2018 Document Reviewed: 09/02/2018 [employer] Patient Education ? 2019 [employer] documented in this encounter Plan of Treatment Upcoming Encounters Date Type Department Care Team (Late st Contact Info) Description 05/25/2025 10:45 AM EDT Office Visit [facility] - [place] [address] [place] [address] Jalen Enciso MD [address] [place] [address] 06/23/2025 10:00 AM EDT Appointment [facility] [place] [address] [place] [address] Román White MD [address] [place] [address] documented as of this encounter Visit Diagnoses Not on filedocumented in this encounter Care Teams Drilling Manager Relationship Specialty Start Date End Date Kaylene Brooke MD [address] [place] [address] PCP - General General Internal Medicine 01/27/22 Farooq Marcus MD [address] [facility] [address] [place] [address] PCP - General Family Medicine 02/27/22 documented as of this encounter
--- OUTSIDE RECORDS SUMMARY | 2025-02-27 15:24 | XMS_ITS | Encounter Summary ---
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 Not on file Not on file documented as of this encounter Plan of Treatment Upcoming Encounters Date Type Department Care Team (Late st Contact Info) Description 05/25/2025 10:45 AM EDT Office Visit [facility] - [place] [address] [place] [address] Jalen Enciso MD [address] [place] [address] 06/23/2025 10:00 AM EDT Appointment [facility] - [address] [place] [phone] Román White MD [address] [facility] [address] [place] [address] documented as of this encounter Visit Diagnoses Not on filedocumented in this encounter Care Teams Jewelry Store Manager Relationship Specialty Start Date End Date Farooq Marcus MD [address] [place] [address] PCP - General Family Medicine 02/27/22 documented as of this encounter
--- OUTSIDE RECORDS SUMMARY | 2025-02-27 15:24 | XMS_ITS | Encounter Summary ---
Author Organization [employer] ([place], [place], [place], [place], [place]) Address [address] [place] [address] Care Team Providers Care Supervisor Instant Potato Processing Name Role Phone Kayleen Brooke MD Primary Care Provider [phone] Farooq Marcus MD Primary Care Provider Encounter Details Date Type Department Care Team (Late st Contact Info) Description 09/27/2020 Transcribed Document [facility] [place] [address] [place] [address] ProviderRayray MD [address] [place] [address] [id number] Social History Tobacco Use Types Packs/Day Years Used Date Smoking Tobacco: Never Assessed Sex and Gender Information Value Date Recorded Sex Assigned at Not on file Legal Sex Male 5:14 PM CDT Gender Identity Not on file Sexual Orientation Not on file documented as of this encounter Miscellaneous Notes * Cerner Conversion Note - Rayray ProviderMD - 09/27/2020 2:00 AM CDT Center Hole Reamer Details Entered On: 09/28/2020 3:17 EDT Performed [...] Description 05/25/2025 10:45 AM EDT Office Visit [facility] [place] [address] [place] [address] Jalen Enciso MD [address] [place] [address] 06/23/2025 10:00 AM EDT Appointment [facility] [place] [address] [place] [address] Román White MD [address] [place] [address] documented as of this encounter Visit Diagnoses Not on filedocumented in this encounter Care Teams Supervisor Instant Potato Processing Relationship Specialty Start Date End Date Kaylene Brooke MD [address] [place] [address] PCP - General General Internal Medicine 01/27/22 Farooq Marcus MD [address] [place] [address] PCP - General Family Medicine 02/27/22 documented as of this encounter
--- OUTSIDE RECORDS SUMMARY | 2025-02-27 15:24 | XMS_ITS | Encounter Summary ---
Author Organization [employer] ([place], [place], [place], [place], [place]) Address [address] [place] [address] Care Team Providers Care Senior Oracle Applications Developer Name Role Phone Kaylene Brooke MD Primary Care Provider [phone] Farooq Marcus MD Primary Care Provider [phone] Encounter Details Date Type Department Care Team (Late st Contact Info) Description 09/27/2020 Transcribed Document [facility] [place] [address] [place] [address] ProviderRayray MD [address] [place] [address] [id number] Social History Tobacco Use Types Packs/Day Years [...] : Yes Niki Guzman, MERA - 09/28/2020 3:17 EDT Electronically signed by Nidia [facility] Conversion Spa Associate Cerner at 06/29/2022 2:36 PM CDT documented in this encounter Plan of Treatment Upcoming Encounters Date Type Department Care Team (Late st Contact Info) Description 05/25/2025 10:45 AM EDT Office Visit [facility] - [address] [place] [phone] Jalen Enciso MD [address] [place] [address] 06/23/2025 10:00 AM EDT Appointment [facility] [place] [place] [address] Román White MD [address] [place] [address] documented as of this encounter Visit Diagnoses Not on filedocumented in this encounter Care Teams Senior Oracle Applications Developer Relationship Specialty Start Date End Date Kaylene Brooke MD [address] [place] [address] PCP - General General Internal Medicine 01/27/22 Farooq Marcus MD [address] [facility] [place] [address] PCP - General Family Medicine 02/27/22 documented as of this encounter
--- NOTE | 2025-02-27 15:37 | CT_ITS ---
PROCEDURE INFORMATION: Exam: CT Abdomen And Pelvis With Contrast Exam date and time: 02/27/2025 4:22 PM Age: 89 years old Clinical indication: Other: Esophageal cancer, shortness of breath, chest pain; Additional info: Esophageal cancer, llq pain TECHNIQUE: Imaging protocol: Computed tomography of the abdomen and pelvis with contrast. Radiation optimization: All CT scans at this facility use at least one of these dose optimization techniques: automated exposure control; mA and/or kV adjustment per patient size (includes targeted exams where dose is matched to clinical indication); or iterative reconstruction. Contrast material: ISOVUE; Contrast volume: 75 ml; Contrast route: IV; COMPARISON: PT P.E.T./CT SKULL BASE TO MID-THIGH 01/26/2025 10:04 AM FINDINGS: Lungs: Imaging through the visualized lung biswas demonstrates mild bibasilar subsegmental atelectasis. Coronary arteries: Three-vessel coronary artery calcifications. Liver: Mild diffuse hepatic steatosis is identified. Gallbladder and biliary ducts: There has been a cholecystectomy. Pancreas: The pancreas is normal. Spleen: The spleen is normal. Adrenal glands: The adrenal glands appear within normal limits. Kidneys and ureters: Bilateral renal pelvic dilation but without a pattern of obstructive hydronephrosis. Finding is stable. There are few scattered renal simple cysts. Stomach and bowel: The stomach appears within normal limits. No wall thickening or inflammatory change. Appendix: No evidence of appendicitis. Intraperitoneal space: No free air. No evidence for focal fluid collection or ascites. No evidence for omental thickening. Vasculature: Moderate atherosclerotic calcifications of the aorta. Lymph nodes: Unremarkable. No pathologically enlarged lymph nodes are identified. Urinary bladder: Moderate distension of the bladder lumen without bladder wall thickening. Reproductive: Unremarkable as visualized. Bones/joints: The regional skeletal structures appear within normal limits for age. Soft tissues: Unremarkable. IMPRESSION: 1. No acute inflammatory process identified. 2. Moderate distension of the bladder lumen without bladder wall thickening. Bilateral renal pelvic dilation but without a pattern of obstructive hydronephrosis. Finding is stable. COMMENTS: Consistent with the [employer]'s Incidental Findings Committee white paper (J Am Ludin Radiol 2018): Any incidental renal lesion less than 1 cm or classified as too small to characterize, or any incidental cystic renal lesion characterized as simple-appearing, is likely benign. No follow-up imaging is recommended for these lesions per consensus recommendations based on imaging criteria.
--- NOTE | 2025-02-27 15:37 | CT_ITS ---
PROCEDURE INFORMATION: Exam: CTA Chest With Contrast Exam date and time: 02/27/2025 4:19 PM Age: 89 years old Clinical indication: Other: Esophageal cancer, shortness of breath, chest pain TECHNIQUE: Imaging protocol: Computed tomographic angiography of the chest with contrast. Exam focused on the arteries. 3D rendering (Not supervised by radiologist): MIP and/or 3D reconstructed images were created by the technologist. Radiation optimization: All CT scans at this facility use at least one of these dose optimization techniques: automated exposure control; mA and/or kV adjustment per patient size (includes targeted exams where dose is matched to clinical indication); or iterative reconstruction. Contrast material: ISOVUE; Contrast volume: 80 ml; Contrast route: INTRAVENOUS (IV); COMPARISON: CT ANGIO CHEST PE PROTOCOL 12/22/2024 10:03 AM FINDINGS: Tubes, catheters and devices: Transvenous pacemaker leads in the heart Pulmonary arteries: No evidence of pulmonary embolus to the segmental level. Aorta: No aneurysm of the aorta. No dissection of the aorta. Lungs: Mild opacities in the lower lobes may represent atelectasis or pneumonia. Pleural spaces: Mild bilateral pleural effusions . Heart: There is calcification of the aortic valve annulus. There is calcification of the mitral valve annulus. Coronary arteries: Coronary artery calcifications may indicate coronary artery disease. Esophagus: Esophageal wall thickening in the distal esophagus may represent knee esophageal cancer.. Lymph nodes: Pathologic node in the preaortic region 19 x 11 mm. Gallbladder and biliary ducts: Cholecystectomy. The common duct is prominent. It measures 13 millimeters. This may be due to post cholecystectomy state and elderly status. However, if biliary obstruction is suspected clinically, recommend further evaluation Bones/joints: Unremarkable. No acute fracture. Soft tissues: Unremarkable. IMPRESSION: 1. Esophageal wall thickening in the distal esophagus may represent knee esophageal cancer.. 2. No evidence of pulmonary embolus to the segmental level. 3. No aneurysm of the aorta. 4. No dissection of the aorta. 5. Mild bilateral pleural effusions . 6. Pathologic node in the preaortic region 19 x 11 mm. 7. Mild opacities in the lower lobes may represent atelectasis or pneumonia.
--- NOTE | 2025-02-27 15:37 | CT_ITS ---
PROCEDURE INFORMATION: Exam: CT Neck With Contrast Exam date and time: 02/27/2025 4:27 PM Age: 89 years old Clinical indication: Other: Esophageal cancer, shortness of breath, chest pain; Additional info: Esophageal cancer, dysphagia, left jaw pain TECHNIQUE: Imaging protocol: Computed tomography of the neck with contrast. Radiation optimization: All CT scans at this facility use at least one of these dose optimization techniques: automated exposure control; mA and/or kV adjustment per patient size (includes targeted exams where dose is matched to clinical indication); or iterative reconstruction. Contrast material: ISOVUE; Contrast volume: 80 ml; Contrast route: IV; COMPARISON: 1. CT CHEST WO CON 09/12/2022 10:40 AM 2. PT P.E.T./CT SKULL BASE TO MID-THIGH 01/26/2025 10:04 AM FINDINGS: Brain: Unremarkable visualized portion of the brain. Orbital cavities: Visualized orbits are unremarkable. Paranasal sinuses: Visualized paranasal sinuses are predominantly clear. Mastoid air cells: Mastoid air cells are clear. Nasal cavity: No evidence of mass. Salivary glands: Unremarkable. Glands are normal in size. Oral cavity: No evidence of mass. Pharynx: Unremarkable nasopharynx and oropharynx. No significant tonsillar enlargement. Unremarkable parapharyngeal space. Larynx: Unremarkable. Epiglottis is normal. Aryepiglottic folds are normal. Thyroid: Unremarkable. Trachea: Visualized trachea is unremarkable. Lungs: Mild biapical scarring. Esophagus: Unremarkable visualized portion of the esophagus. Lymph nodes: No lymphadenopathy. Vasculature: No acute findings. Bones/joints: No acute abnormality. Multilevel chronic degenerative changes of the cervical spine. A 2.1 cm low-density circumscribed mildly expansile lesion in the left neural foramen at T3-T4. Soft tissues: No acute finding. No significant soft tissue swelling. Other findings: No prevertebral thickening or fluid collection. IMPRESSION: 1. No acute findings. 2. A 2.1 cm low-density circumscribed mildly expansile lesion in the left neural foramen at T3-T4. 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 Nonemergent MRI with and without contrast can be performed for further evaluation if desired.
--- NOTE | 2025-02-27 15:40 | ED_ITS ---
Discharge Plan Disposition Patient Disposition: Home, Self-Care Prescriptions Prescriptions: New famotidine [Pepcid] 20 mg tablet 20 mg PO DAILY Qty: 30 0RF No Action Centrum Silver Men [id number] mcg tablet 1 tab PO DAILY aspirin [Adult Low Dose Aspirin] 81 mg tablet,delayed release (DR/EC) 81 mg PO DAILY Qty: 30 2RF ramipril 5 mg capsule 5 mg PO DAILY Qty: 30 5RF lorazepam 1 MG tablet 1 mg PO BID pantoprazole 40 MG tablet,delayed release (DR/EC) 40 mg PO BID Referrals Follow up/Referrals: Carlos Marcus MD [Primary Care Provider, Medical] - See instructions Activity Restrictions/Add. Instructions Additional Instructions/Restrictions: I encourage you to continue to drink plenty liquids to stay hydrated. Try the Ensure protein shakes as discussed to make sure that you are getting calories and protein. I do encourage you to follow-up with Dr. Jordan and your primary care doctor early next week for follow-up appointment. I am prescribing Pepcid to help with acid reflux symptoms. If you develop any new or worsening symptoms, or if you become concerned for your health for any reason, return to the emergency department for evaluation. Clinical Impressions Clinical Impression: Burning chest pain, Esophageal cancer Print Language Print Language: Kinyarwanda Discharge ED Provider: Josh Felder General Chief Complaint: Shortness of Breath/Dyspnea Stated Complaint: Neck Pain Time Seen by Provider: 02/27/25 15:16 Mode of Arrival: EMS Source of Information: Patient and EMS Description of Symptoms (Recalled from ER Triage Doc. by RN): PATIENT PRESENTS TO ED FOR NECK PAIN, SOA, AND HEADACHE FROM HOME. STATES HE HAS BEEN FEELING BAD SINCE SUNDAY. RECEIVED 1 SPRAY NITRO AND 324 ASPIRIN EN ROUTE. PT FINISHED RADIATION TREATMENTS FOR ESOPHAGEAL CA. History of Present Illness HPI narrative: [place] Del Angel is an 89y male with a history of cancer. Radiation treatment Sunday of this past week, AICD, NSTEMI who presents to the emergency department for complaints of chest pain, shortness of breath, intermittent headaches and dysphagia. Patient states that previously she had esophageal cancer and several years ago with chemoradiation of the cancer and completed. He started having recurrence of pain in difficulty swallowing and was diagnosed with esophageal cancer again approximately [address] Marshall after an endoscopy. He follows with Dr. Jordan with oncology and receives radiation therapy at [facility] in [place], receiving his 10th and final treatment on Sunday of this past week. Since then, patient states that he has had worsening difficulty swallowing and pain with swallowing. He states that he feels like he gets stuck in his chest. He states that he has barely been able to tolerate water. He denies any vomiting. He does report nausea. He reports some abdominal pain as well. He states that his chest pain is fairly constant. He also reports left jaw pain. He states that since Sunday, he has had intermittent headaches that last a few hours at a time before resolving. He states that Tylenol does seem to help. He had a headache prior to arrival that resolved prior to getting to the emergency department. Patient received 324 aspirin and 1 nitro spray and route. Related Data Home Medications ?Medication ?Instructions ?Recorded ?Confirmed pantoprazole 40 mg tablet,delayed 40 mg PO BID 1 01/22/25 release lorazepam 1 mg tablet 1 mg PO BID Anxiety 05/14/22 01/22/25 [id number] 300 mcg-K 60 1 tab PO DAILY 03/07/23 01/22/25 mcg-lycop 600 mcg-lutein 300 mcg tablet (Centrum Silver Men) Previous Rx's ?Medication ?Instructions ?Recorded aspirin 81 mg tablet,delayed 81 mg PO DAILY #30 tabs 0 12/02/24 release (Adult Low Dose Aspirin) ramipril 5 mg capsule 5 mg PO DAILY #30 caps 02/24 famotidine 20 mg tablet (Pepcid) 20 mg PO DAILY #30 ta bs 02/27/25 Allergies Allergy/AdvReac Type Severity Reaction Status Date / Time oxycodone AdvReac Agitated Verified 01/22/25 13:33 [facility] Disclaimer: The information contained in this section may have been updated after the patient was seen, as this information can be updated by other users. Medical History Palpitations SOB (shortness of breath) Left ankle pain Knee pain Nausea & vomiting Abnormal echocardiogram Dizziness Pneumonia Gastrocnemius muscle tear Pleurisy Foot pain, right Ankle pain, right Crushing injury of leg, right Forehead contusion Lip laceration Medication side effect Takotsubo cardiomyopathy Leukopenia Esophageal cancer Fever Abnormal cardiovascular stress test Atypical chest pain NSTEMI (non-ST elevated myocardial infarction) Esophageal abnormality Dyspnea Chronic systolic heart failure Anxiety about health URI (upper respiratory infection) Seasonal allergies Vertigo Sinusitis Mitral regurgitation Cardiomyopathy Renal insufficiency Syncope and collapse Left bundle branch block Hypertensive disorder 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 Nonadherence to medication Palpitations Fall Atypical angina Recent myocardial infarction Chest pain Surgical History Status post cardiac pacemaker procedure Family History Other No significant family history Social History Smoking Status: Never smoker alcohol intake: never substance use type: denies use current occupational status: retired Travel in the last 8 weeks?: Inside the [place] household members: spouse housing: house current occupational exposures/hazards: No caffeine: Yes Have you lived/traveled outside [place] in past 30 days?: No Contact w/someone who lives/traveled outside [place] past 30 days?: No Exposure to someone with infectious disease in past 14 days?: No Do you have a fever (greater than 100.4 F or 38 C)?: No Have you tested positive for COVID-19?: No Exposed to someone with COVID-19 in past 14 days?: No Do you have a sore throat?: No Do you have a cough?: No Do you have any weakness?: No Do you have any diarrhea?: No Are you experiencing any unusual bleeding?: No Do you have any muscle aches/pain?: No Do you have any abdominal pain?: No Are you experiencing loss of taste or smell?: No Other Medical History Have you received the Flu Vaccine for this season: No Have you received the Pneumonia Vaccine: Yes ROS Obtained: Yes Systems reviewed as appropriate & no additional complaints except as documented Physical Exam General General appearance: alert and in no apparent distress Comment: chronically ill appearing Head Head exam: atraumatic Eye Eye exam: Present normal appearance ENT ENT exam: Present mucous membranes moist, normal external ear exam and other (Uvula is midline. No posterior oropharyngeal swelling. No oropharyngeal masses are appreciated.) Neck Neck exam: Present full ROM Chest Chest inspection: Present symmetric chest wall rise Respiratory Respiratory exam: Present normal lung sounds bilaterally; Absent respiratory distress, wheezes or stridor Cardiovascular Cardiovascular exam: Present regular rate and normal rhythm Abdominal Exam Abdominal exam: Present soft, tenderness (LLQ with guarding) and guarding; Absent distention or rigidity exam: Present deferred Extremities Exam Extremities exam: Present normal inspection Back Exam Back exam: Present normal inspection Neurological Exam Neurological exam: Present alert and oriented X3 Psychiatric Psychiatric exam: Present normal affect Skin Skin exam: Present warm and dry HEART Score HEART Score HEART Score assessment performed?: Yes HEART Score: 3 Critical Care Critical Care Time Critical Care Time: No Medical Decision Making Lev Inquiry Pt receiving controlled substance: No Vital Signs Vital Signs: 02/27/25 15:06 02/27/25 15:06 02/27/25 15:30 Temperature 98.0 F 98.0 F Temperature Source Oral Pulse Rate 76 65 Pulse Rate [Right] 76 Respiratory Rate 20 20 22 Blood Pressure 137/70 132/64 Blood Pressure [Right Arm] 137/70 Blood Pressure Mean 86 Blood Pressure Mean [Right Arm] 92 02 Sat by Pulse Oximetry 93 L 93 L 95 Oxygen Delivery Method Room Air Room Air 02/27/25 16:00 02/27/25 17:30 02/27/25 18:00 Temperature Temperature Source Pulse Rate 65 61 65 Pulse Rate [Right] Respiratory Rate 22 11 L 22 Blood Pressure 116/76 131/62 117/62 Blood Pressure [Right Arm] Blood Pressure Mean 88 Blood Pressure Mean [Right Arm] 02 Sat by Pulse Oximetry 95 95 92 L Oxygen Delivery Method Room Air 02/27/25 18:30 Temperature Temperature Source Pulse Rate 66 Pulse Rate [Right] Respiratory Rate 16 Blood Pressure 120/64 Blood Pressure [Right Arm] Blood Pressure Mean Blood Pressure Mean [Right Arm] 02 Sat by Pulse Oximetry 93 L Oxygen Delivery Method Lab Data Labs: Lab Results 02/27/25 15:06: WBC 6.1, RBC 4.41 L, Hgb 14.0 L, Hct 42.5, MCV 96.4 H, MCH 31.7 H, MCHC 32.9, RDW 12.6, Plt Count 183, MPV 9.8, Neut % (Auto) 71.1, Lymph % (Auto) 9.8 L, Mcdowell % (Auto) 13.7 H, Eos % (Auto) 4.4, Baso % (Auto) 0.3, Neut # (Auto) 4.4, Lymph # (Auto) 0.6 L, Mcdowell # (Auto) 0.8, Eos # (Auto) 0.3, Baso # (Auto) 0.0, PT 11.2, INR 1.01, Sodium 140, Potassium 4.1, Chloride 104, Carbon Dioxide 29, Anion Gap 11.1, BUN 16, Creatinine 1.10, Estimated Creat Clear 50, Estimated GFR 63, Est GFR ( Amer) 77, Glucose 99, Calcium 9.2, Total Bilirubin 0.7, AST 31, ALT 22, Alkaline Phosphatase 71, Troponin I < 0.01, C- Reactive Protein 2.0, NT-Pro-B Natriuret Pep 450, Total Protein 7.1, Albumin 3.8, Globulin 3.3 H, Albumin/Globulin Ratio 1.2, Lipase 39 02/27/25 17:45: Lactate 0.8 02/27/25 18:50: Urine Color Yellow, Urine Appearance Clear, Urine pH 6.0, Ur Specific [place] <= 1.005, Urine Protein Negative, Urine Glucose (UA) Negative, Urine Ketones Negative, Urine Blood 1+ A, Urine Nitrate Negative, Urine Bilirubin Negative, Urine Urobilinogen 0.2, Ur Leukocyte Esterase Negative, Urine RBC Occasional, Urine Bacteria Trace 02/27/25 15:06 02/27/25 15:06 Response Orders (Tests/Meds): ED MEDICATIONS Discontinued Medications Generic Name Dose Route Start Last Admin Trade Name Freq PRN Reason Stop Dose Admin Iopamidol 140 ml 02/27/25 16:16 02/27/25 16:18 Iopamidol-370 (76%);100ml Bottle IV 02/27/25 16:17 140 ml ONCE ONE Administration Ondansetron HCl 4 mg 02/27/25 15:37 02/27/25 16:10 Ondansetron 4mg/2ml Vial IV 02/27/25 15:38 4 mg ONCE ONE Administration Sodium Chloride 10 ml 02/27/25 16:16 02/27/25 16:18 Sodium Chloride 0.9% 10ml Syr (Rad Only) IV 02/27/25 16:17 10 ml ONCE ONE Administration Sodium Chloride 50 ml 02/27/25 16:16 02/27/25 16:17 0.9 % Sodium Chloride 50 Ml Vial IV 02/27/25 16:17 50 ml ONCE ONE Administration ORDERS Category Date Time Status CT abdomen pelvis w con Stat Cat Scan 02/27/25 15:[address] angio chest PE protocol Stat Cat Scan 02/27/25 15:[address] head/brain wo con Stat Cat Scan 02/27/25 15:[address] soft tissue neck w con Stat Cat Scan 02/27/25 15:37 Completed BNP [NT Pro Brain Natriuretic Pep.] Stat Lab 02/27/25 15:06 Completed CBC w/Auto Diff [Complete Blood Count Auto Diff] Stat Lab 02/27/25 15:06 Completed CMP [Comprehensive Metabolic Panel] Stat Lab 02/27/25 15:06 Completed CRP [C-Reactive Protein] Stat Lab 02/27/25 15:06 Completed Lactic Acid Stat Lab 02/27/25 17:45 Completed Lipase Stat Lab 02/27/25 15:06 Completed PT INR [Prothrombin Time INR] Stat Lab 02/27/25 15:06 Completed Troponin I Q3H Lab 02/27/25 21:45 Ordered Troponin I Stat Lab 02/27/25 15:06 Completed UA [Urinalysis and Microscopic] Stat Lab 02/27/25 18:50 Completed ECG Data Tracing #1: Attestation: I reviewed this ECG and interpreted as documented below: ECG Narrative: Ventricular pacemaker. No ST elevation or depression. No T wave inversions. QTc of 439 MDM Narrative Medical Decision Narrative: [place] Angel is an 89y male with a history of cancer. Radiation treatment Sunday of this past week, AICD, NSTEMI who presents to the emergency department for complaints of chest pain, shortness of breath, intermittent headaches and dysphagia. Patient states that previously she had esophageal cancer and several years ago with chemoradiation of the cancer and completed. He started having recurrence of pain in difficulty swallowing and was diagnosed with esophageal cancer again approximately [address] Marshall after an endoscopy. He follows with Dr. Jordan with oncology and receives radiation therapy at [facility] in [place], receiving his 10th and final treatment on Sunday of this past week. Since then, patient states that he has had worsening difficulty swallowing and pain with swallowing. He states that he feels like he gets stuck in his chest. He states that he has barely been able to tolerate water. He denies any vomiting. He does report nausea. He reports some abdominal pain as well. He states that his chest pain is fairly constant. He also reports left jaw pain. He states that since Sunday, he has had intermittent headaches that last a few hours at a time before resolving. He states that Tylenol does seem to help. He had a headache prior to arrival that resolved prior to getting to the emergency department. Patient received 324 aspirin and 1 nitro spray and route. EKG obtained on arrival shows ventricular paced rhythm with rate of 68 bpm. No ischemic changes. See interpretation above. Differential diagnosis includes, but is not limited to: Postradiation pain, metastatic disease, ACS, pericarditis, intracranial hemorrhage, pneumonia, pleurisy, esophageal perforation, pulmonary embolism, diverticulitis, colitis, urinary tract infection, among others. The most morbid conditions were considered and workup was based on these. Workup in the emergency department included: CT imaging of the abdomen pelvis, chest, soft tissue neck with contrast as well as CT head without contrast. Hematologic labs, urine studies. Patient states that his pain is overall improved prior to arrival. Will administer 4 mg of IV Zofran for nausea. Workup shows no leukocytosis, stable low hemoglobin at 14, platelets within normal limits, coagulation studies within normal limits, electrolytes and kidney function within normal limits. Liver enzymes and bili are within normal image. Initial troponin less than 0.01. CRP normal at 2, NT proBNP normal at 1450. Lipase normal at 39. Lactate normal at 0.8. Urinalysis shows 1+ urine blood but only trace bacteria. Negative leukocyte esterase and negative nitrate. No evidence of infection in the urinary tract. CT imaging was interpreted by me personally. No intracranial hemorrhage, mass or midline shift. Patient has an esophageal mass of the distal esophagus but no evidence of pneumomediastinum, no pulmonary embolism. No aortic dissection. Patient has bilateral pleural effusions and low concern for pneumonia. CT imaging of the neck shows a 2.1 cm low-density circumscribed mildly expansile lesion in the left neuroforamen at T3 and T4 that is stable from last evaluation. 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 Recommended outpatient MRI. CT abdomen pelvis shows no acute inflammatory process. There is moderate distention of the urinary bladder without bladder wall thickening. There is a bilateral renal pelvic dilation but without a pattern of obstructive hydronephrosis. See radiology report for details. On reassessment, patient remains in stable condition. I do feel that he symptomatology is likely secondary to his recent radiation. Patient does state that he is able to tolerate liquids. He has not tried Ensure/protein shakes. I did encourage him to try these at home to ensure that he maintains adequate caloric intake. I did encourage him and his to follow-up with Dr. Jordan and his primary care doctor early next week and to return to the Emergency Department over the weekend if he continues to have difficulty or worsening of his symptoms. All questions were answered. 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 Demonstrated understanding and were in agreement this plan. He was then discharged from the emergency department in stable condition
[2025-02-27 15:50] LABS: Hematocrit 42.5 % (42.0-52.0); Hemoglobin 14.0 g/dL (14.1-18.0); Immature Granulocytes % 0.7 %; Mean Corpuscular HGB Conc 32.9 g/dL (31.8-35.4); Mean Corpuscular Hemoglobin 31.7 pg (27.0-31.2); Mean Corpuscular Volume 96.4 fl (80-94); Nucleated Red Blood Cells % 0 %; Platelet Count 183 K/mm3 (142-424); Red Blood Count 4.41 M/mm3 (4.60-6.20); Red Cell Distribution Width-SD 45.0 fL; White Blood Count 6.1 K/mm3 (4.8-10.8)
[2025-02-27 15:53] LABS: Albumin Level 3.8 g/dl (3.5-5.0); Chloride 104 mmol/L (98-107); Sodium 140 mmol/L (136-145)
[2025-02-27 15:54] LABS: Potassium 4.1 mmoL/L (3.5-5.1)
[2025-02-27 15:56] LABS: Alanine Aminotransferase 22 U/L (12-78); Albumin/Globulin Ratio 1.2 (1.1-1.8); Alkaline Phosphatase 71 U/L (38-126); Anion Gap 11.1 mEq/L (5-15); Aspartate Amino Transferase 31 U/L (17-59); Bilirubin,Total 0.7 mg/dl (0.2-1.3); Blood Urea Nitrogen 16 mg/dl (9-20); Carbon Dioxide 29 mmol/L (22.0-30.0); Creatinine Clearance Estimated 50 mL/min (50-200); Creatinine,Serum 1.10 mg/dl (0.66-1.25); Estimated Glomerular Filt Rate 63 ml/min (>60); GFR (African American) 77 ML/MIN (>60); Globulin 3.3 g/dL (1.3-3.2); Total Protein,Serum 7.1 g/dl (6.3-8.2)
[2025-02-27 15:57] LABS: Calcium 9.2 mg/dl (8.4-10.2); Glucose 99 mg/dl (74-100); INR 1.01 (0.9-1.1); Lipase 39 U/L (23-300); Prothrombin Time 11.2 seconds (10.1-12.5)
[2025-02-27 16:09] LABS: NT Pro Brain Natriuretic Pep. 450 pg/mL (0-450)
[2025-02-27 16:10] LABS: C-Reactive Protein 2.0 mg/L (0-4)
[2025-02-27] MEDS: ONDANSETRON 4MG/2ML VIAL 4 MG IV (16:10)
[2025-02-27] MEDS: 0.9 % SODIUM CHLORIDE 50 ML VIAL IV (16:17)
[2025-02-27] MEDS: IOPAMIDOL-370 (76%);100ML BOTTLE 140 ML IV (16:18)
[2025-02-27] MEDS: SODIUM CHLORIDE 0.9% 10ML SYR (RAD ONLY) 10 ML IV (16:18)
[2025-02-27 16:24] LABS: Troponin I < 0.01 ng/ml (0.00-0.034)
[2025-02-27 18:55] LABS: Bilirubin,Urine Negative (Negative); Color,Urine YELLOW (Yellow); Glucose,Urine (UA) Negative (Negative); Ketones,Urine Negative (Negative); Leukocyte Esterase,Urine Negative (Negative); Microscopic, Urine URINE MICROSCOPIC (MICROSCOPIC); PH,Urine 6.0 (5.0-8.5); Protein,Urine Negative (Negative); Specific Gravity, Urine <= 1.005 (1.005-1.030); Urobilinogen,Urine 0.2 EU/dl (0.2)
[2025-02-27 19:22] LABS: Bacteria,Urine Trace /lpf; RBC,Urine Occasional #/hpf (0-3)
== END 2025-02-27 19:52 | disposition home or self-care (01) ==
PROVIDERS: Emergency Provider Student in an Organized Health Care Education/Training Program; PCP Family Medicine
DX: R07.89 Other chest pain (principal); M54.2 Cervicalgia; R10.32 Left lower quadrant pain; R51.9 Headache, unspecified; C15.9 Malignant neoplasm of esophagus, unspecified; Z92.21 Personal history of antineoplastic chemotherapy; I11.9 Hypertensive heart disease without heart failure; I50.22 Chronic systolic (congestive) heart failure
CPT/HCPCS: 70450; 70491; 71275; 74177; 80053; 81001; 83605; 83690; 83880; 84484; 85025; 85610; 86140; 93005; 96374; 99285; J2405; Q9967